=== PATIENT | female | born 1945 | race African-American/Black ===

== ENCOUNTER → 2016-06-17 | Outpatient (CLI) | payer BC ==
[~2016-06-17] MED LIST: ALPR-411 PO; APRE1TAB3 PO; ASPI325T45 PO; ASTN; BENZ100C18 PO; CALCTAB5 PO; CETI10TA84 PO; CHOL1CAP57 PO; CLOB-65 EXT; DICY20TA10 PO; DILT-115 PO; FLV1 PO; FOLI1TAB7 PO; HYG/25 PO; IPRA1AER2 INH; LEVO-366 PO; LEVO75TA PO; LEVO88TA3 PO; MAGN1CAP2 PO; MTH25 PO; NITR0.4S76 PO; NTRAR PO; OYST500T47 PO; POTA20TA16 PO; PRED-301 PO; PRED20TA PO; PRT/20 PO; SPR25 PO; TRAM-10 PO
--- NOTE | 2016-06-17 16:25 | DIAGNOSTIC IMAGING REPORT ---
CHEST 2 VIEWS ROUTINE CLINICAL HISTORY: Cough. COMPARISON STUDY: Chest radiograph July 25, 2015. FINDINGS: Lung volumes are normal. There is no pneumothorax or pleural effusion. No consolidation is identified. Cardiac size is normal. Mediastinal contours are normal. Mild biapical opacities are unchanged and likely reflect scarring. IMPRESSION: No acute cardiopulmonary findings. Electronically signed by: Alfred Avendaño M.D. 06/17/2016 4:23 PM Dictated Date/Time: 06/17/2016 4:21 PM
== END | disposition home or self-care (01) ==
LOC: C.RADBC 15:34
PROVIDERS: ATTEND Family Medicine
DX: R05 Cough (principal)

== ENCOUNTER 2016-06-23 10:11 | Emergency (ER) | payer BC ==
[~2016-06-23] VITALS: Ht 180.3 cm; Wt 102.6 kg
[~2016-06-23 10:11] MED LIST changes: -BENZ100C18 PO; -FOLI1TAB7 PO; -LEVO-366 PO; -LEVO88TA3 PO; -NITR0.4S76 PO; -OYST500T47 PO; -PRED20TA PO; -PRT/20 PO
[2016-06-23 10:13] VITALS: TEMP 36.4; Ht 180.3 cm; Wt 102.6 kg
[2016-06-23] MEDS ORDERED: NITR0.4S76 PO (10:29)
[2016-06-23] MEDS ORDERED: FOLI1TAB7 PO (10:29)
[2016-06-23] MEDS ORDERED: DEXAMETHASONE CONC SOLN 0.078 MG, NYSTATIN SUSP 0.625 ML, DiphenhydrAMINE HCL SYRUP 6.2... PO SCH ×5 (11:17)
[2016-06-23] MEDS ORDERED: ALBUT/IPRATROP 3MG/0.5MG NEB 3 ML VIAL INH STA ×2 (11:18→13:02)
[2016-06-23] MEDS ORDERED: MAGIC MOUTHWASH PO ONE (11:30)
[2016-06-23 11:42] LABS: HEMATOCRIT 39.7 % (37-47); MEAN CELL VOLUME 89.4 fL (80-100); MEAN CORPUSCULAR HEMOGLOBIN 30.4 pg (25-34); MEAN PLATELET VOLUME 10.5 fL (7.4-10.4); PLATELET COUNT 350 K/uL (130-400); RED BLOOD COUNT 4.44 M/uL (4.2-5.4); WHITE BLOOD COUNT 10.28 K/uL (4.8-10.8)
[2016-06-23 12:01] LABS: BUN/CREATININE RATIO 12.7 (10-20); CALCIUM 9.1 mg/dl (8.5-10.1); CREATININE 2.1 mg/dl (0.60-1.20)
--- NOTE | 2016-06-23 12:04 | DIAGNOSTIC IMAGING REPORT ---
CHEST 2 VIEWS ROUTINE CLINICAL HISTORY: cough dyspnea COMPARISON STUDY: 06/17/2016 FINDINGS: The bones soft tissues and hemidiaphragms are normal. The cardiomediastinal silhouette is normal. The lungs are clear. The pulmonary vasculature is normal. IMPRESSION: Negative chest. Electronically signed by: Jose Tripp M.D. 06/23/2016 12:03 PM Dictated Date/Time: 06/23/2016 12:03 PM
[2016-06-23 12:13] LABS: BASO % 0.2 %; BASO ABS # 0.02 K/uL (0-0.2); COMPLETE YES; LYMPH % 16.9 %; LYMPH ABS # 1.74 K/uL (1.2-3.4); MONO % 7.1 %; NEUT % 73.8 %
[2016-06-23] MEDS ORDERED: METHYLPREDNISOLONE 125 MG VIAL IV STA (13:02)
[2016-06-23] MEDS ORDERED: PRED20TA PO (13:51)
[2016-06-23] MEDS ORDERED: BENZ100C18 PO (13:51)
[2016-06-23] MEDS ORDERED: LEVO-366 PO (13:51)
[2016-06-23 13:58] VITALS: BP 145/67; PULSE 62; O2SAT 96
--- NOTE | 2016-06-23 19:17 | EMERGENCY ROOM VISIT NOTE ---
History Report prepared by Jamie: Bozena Pitt Under the Supervision of: Dr. Kirk Vincent D.O. First contact with patient: 10:55 Chief Complaint: RESPIRATORY PROBLEMS Stated Complaint: WHEEZING, COUGH Nursing Triage Summary: Pt ambulatory to triage Pt c/o SOB, wheezing dx with bronchitis and given steroid and abx finished abx yesterday sx are not improving History of Present Illness The patient is a 71 year old female who presents to the Emergency Room with complaints of persistent shortness of breath that began one week ago. The patient states that last Thursday she went to a banquet last Thursday and developed a cold after the banquet. She states that she went to see her PCP last Thursday and was placed on Azithromycin and Steroids for bronchitis. The patient states that she has had a cough, bringing up mucous, and has been wheezing. She states that she notices her shortness of breath more with walking and exertion. The patient states that she gets dizzy with exertion. She denies any history of asthma or COPD. The patient states that she does not have a nebulizer at home and denies being a smoker. She states that this happened one year ago as well and had a reaction to different of the inhalers. Pt denies headache, change in vision, fevers, chest pain, nausea, vomiting, diarrhea, pain with urination, and melena. Source of History: patient Onset: one week ago Position: other (global) Quality: other (shortness of breath) Associated Symptoms: + cough Note: Associated Symptoms: wheezing. Review of Systems See HPI for pertinent positives & negatives. A total of 10 systems reviewed and were otherwise negative. 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 (11) Hypertension Nos (12) Irritable Bowel Syndrome (13) Lumbar Disc Displacement (14) Osteoarthritis, knee (15) Reflux Esophagitis (16) Rheumatoid Arthritis Surgical Problems: (1) H/O thyroidectomy Family History Cancer FH: heart disease Hypertension Social History Smoking Status: Never Smoker Alcohol Use: none Drug Use: none Marital Status: Housing Status: lives with family Occupation Status: retired Current/Historical Medications Scheduled Alprazolam (Xanax), 0.5 MG PO BID Apremilast (Otezla), 1 TAB PO BID Aspirin (Aspirin), 325 MG PO QPM Benzonatate (Tessalon Perles), 100 MG PO TID Calcium (Caltrate), 1,000 MG PO BID Cetirizine (Zyrtec), 0.5 TAB PO BID Cholecalciferol (Vitamin D3), 1 CAP PO QAM Diltiazem Hcl Ext Rel (Tiazac), 240 MG PO QAM Folic Acid (Folvite), 4 MG PO 6XWK Levofloxacin (Levaquin), 500 MG PO DAILY Levothyroxine Sodium (Synthroid), 1 TAB PO QAM Magnesium Oxide (Mg Supplement (Magnesium), 1 TAB PO BID Methotrexate (Methotrexate), 4 TABS PO WK Potassium Ext Rel (Klor-Con), 20 MEQ PO BID Prednisone (Prednisone), 5 MG PO QPM Prednisone (Prednisone), 1 TAB PO DAILY Spironolactone (Spironolactone), 25 MG PO QAM Scheduled PRN Azelastine Hcl (Astelin Nasal [place]), 1-2 SPRAYS NA BID PRN for Nasal Congestion Dicyclomine Hcl (Dicyclomine Hcl), 1 TAB PO TID PRN for ABDOMINAL PAIN Ipratropium-Albuterol (Combivent Respimat), 1 PUFFS INH BID PRN for Shortness of Breath Nitroglycerin (Nitroglycerin Lingual), 1 SPRAY PO UD PRN for CHEST PAIN Tramadol (Ultram), 50 MG PO Q4H PRN for Pain Allergies Coded Allergies: Codeine (Verified Allergy, Severe, THROAT SWELLING, 12/20/15) Diclofenac (Verified Allergy, Intermediate, CREATINE ELEVATION, 12/20/15) Isopropyl Alcohol (Verified Allergy, Intermediate, CREATINE ELEVATION, ) Propylene Glycol (Verified Allergy, Intermediate, CREATINE ELEVATION, 12/19) Iodinated Diagnostic Agents (Verified Allergy, Unknown, RASH, 12/20/15) Sulfa Antibiotics (Verified Allergy, Unknown, RASH TO SULFA DRUGS, 12/20/15 ) Tetracycline (Verified Allergy, Unknown, RASH, 12/20/15) Physical Exam Vital Signs Date Time Temp Pulse Resp B/P Pulse Ox O2 Delivery O2 Flow Rate FiO2 06/23/16 13:58 62 18 145/67 96 Room Air 06/23/16 12:19 73 18 126/81 94 Room Air 06/23/16 10:43 97 Room Air 06/23/16 10:13 36.4 64 22 163/93 97 Room Air Physical Exam GENERAL:Sitting up in bed, no acute distress, talking in full sentences. EYE EXAM: normal conjunctiva. OROPHARYNX: no exudate, no erythema, lips, buccal mucosa, and tongue normal and mucous membranes are moist NECK: supple, no nuchal rigidity, no adenopathy, non-tender LUNGS: Diffuse wheezing. Normal chest wall mechanics HEART: no murmurs, S1 normal and S2 normal ABDOMEN: abdomen soft, non-tender, normo-active bowel sounds, no masses, no rebound or guarding. BACK: Back is symmetrical on inspection and there is no deformity, no midline tenderness, no CVA tenderness. SKIN: no rashes and no bruising UPPER EXTREMITIES: upper extremities are grossly normal. LOWER EXTREMITIES: No pitting edema. Calves are equal bilaterally NEURO EXAM: Normal sensorium, cranial nerves II-XII grossly intact, normal speech, no gross weakness of arms, no gross weakness of legs. Medical Decision & Procedures ER Provider Diagnostic Interpretation: Xray results per the radiologist and my interpretation. Other results have been interpreted by the radiologist and reviewed by me. CHEST 2 VIEWS ROUTINE CLINICAL HISTORY: cough dyspnea COMPARISON STUDY: 06/17/2016 FINDINGS: The bones soft tissues and hemidiaphragms are normal. The cardiomediastinal silhouette is normal. The lungs are clear. The pulmonary vasculature is normal. IMPRESSION: Negative chest. Electronically signed by: Jose Tripp M.D. 06/23/2016 12:03 PM Dictated Date/Time: 06/23/2016 12:03 PM Laboratory Results 06/23/16 11:19 Red Blood Count 4.44, Mean Corpuscular Volume 89.4, Mean Corpuscular Hemoglobin 30.4, Mean Corpuscular Hemoglobin Concent 34.0, Mean Platelet Volume 10.5, Neutrophils (%) (Auto) 73.8, Lymphocytes (%) (Auto) 16.9, Monocytes (%) (Auto) 7.1, Eosinophils (%) (Auto) 0.0, Basophils (%) (Auto) 0.2, Neutrophils # (Auto) 7.58, Lymphocytes # (Auto) 1.74, Monocytes # (Auto) 0.73, Eosinophils # (Auto) 0.00, Basophils # (Auto) 0.02 06/23/16 11:19 Test 06/23/16 11:17 06/23/16 11:19 Influenza Type A Antigen Neg for Influ A (NEG) Influenza Type B Antigen Neg for Influ B (NEG) White Blood Count 10.28 K/uL (4.8-10.8) Red Blood Count 4.44 M/uL (4.2-5.4) Hemoglobin 13.5 g/dL (12.0-16.0) Hematocrit 39.7 % (37-47) Mean Corpuscular Volume 89.4 fL (80-100) Mean Corpuscular Hemoglobin 30.4 pg (25-34) Mean Corpuscular Hemoglobin Concent 34.0 g/dl (32-36) Platelet Count 350 K/uL (130-400) Mean Platelet Volume 10.5 fL (7.4-10.4) Neutrophils (%) (Auto) 73.8 % Lymphocytes (%) (Auto) 16.9 % Monocytes (%) (Auto) 7.1 % Eosinophils (%) (Auto) 0.0 % Basophils (%) (Auto) 0.2 % Neutrophils # (Auto) 7.58 K/uL (1.4-6.5) Lymphocytes # (Auto) 1.74 K/uL (1.2-3.4) Monocytes # (Auto) 0.73 K/uL (0.11-0.59) Eosinophils # (Auto) 0.00 K/uL (0-0.5) Basophils # (Auto) 0.02 K/uL (0-0.2) RDW Standard Deviation 55.6 fL (36.4-46.3) RDW Coefficient of Variation 17.1 % (11.5-14.5) Immature Granulocyte % (Auto) 2.0 % Immature Granulocyte # (Auto) 0.21 K/uL (0.00-0.02) Anion Gap 12.0 mmol/L (3-11) Est Creatinine Clear Calc Drug Dose 32.9 ml/min Estimated GFR () 27.0 Estimated GFR (Non- 23.3 BUN/Creatinine Ratio 12.7 (10-20) Calcium Level 9.1 mg/dl (8.5-10.1) Laboratory results per my review. Medications Administered Medications (Trade) Dose Ordered Sig/Carrie Route Start Time Stop Time Status Last Admin Dose Admin Albuterol/ Ipratropium 3 ml NOW STAT INH 06/23/16 11:18 06/23/16 14:40 DC 06/23/16 12:06 3 ML Dexamethasone/ Nystatin/ Diphenhydramine HCl/Sucrose/ Microcrystalline Cellulose/Barcode (Decadron Conc Soln/Mycostatin Susp/Benadryl Syrup/Ora-Sweet Syrup/Ora-Plus Susp. Vehicle) 1117 PO 06/23/16 11:17 06/23/16 14:40 DC 06/23/16 12:06 5 ML Albuterol/ Ipratropium (Duoneb) 3 ml NOW STAT INH 06/23/16 13:02 06/23/16 14:40 DC 06/23/16 13:07 3 ML Methylprednisolone Sodium Succinate (Solu-Medrol IV) 40 mg NOW STAT IV 06/23/16 13:02 06/23/16 14:40 DC 06/23/16 13:08 40 MG ED Course ED COURSE: Vital signs were reviewed and showed normal vitals The patients medical record was reviewed The above diagnostic studies were performed and reviewed. ED treatments and interventions as stated above. 1057: The patient was evaluated in room C11B. A complete history and physical examination was performed. 1117: Ordered Dexamethasone/Nystatin/Diphenhydramine/HCl/Sucrose/ Microcrystalline Cellulose/Barcode PO, DuoNeb 3 ml INH. 1300: I reevaluated the patient and she is feeling better. 1302: Ordered Solu-Medrol 40 mg IV, DuoNeb 3 ml INH. 1348: Upon reevaluation, the patient is feeling better.I discussed my findings with the patient and she understands and agrees with the treatment plan. She declines any antibiotics at this time. Based on the patients age, coexisting illnesses, exam and lab findings the decision to treat as an outpatient was made. The patient remained stable while under my care. The patient appeared well at the time of discharge. Medical Decision Differential diagnoses includes but is not limited to pneumonia, bronchitis, COPD/Asthma exacerbation, pneumothorax, pulmonary embolism, congestive heart failure, acute coronary syndrome Patient is a 71-year-old female who presents the ER for shortness of breath associated with diffuse wheezing. She was recently diagnosed with bronchitis and placed on steroids along with azithromycin. She has an inhaler at home but notes that she does not have a history of asthma or COPD. Upon presentation she notes that she was sent in here by her PCP for a neb treatment. She has that when she gets any kind of nebulized treatment that has a sulfa in it she gets blisters in her mouth. She does okay she gets steroids before. She was given a mouthwash and to the treatments. She has significant improvement of her symptoms. Chest x-ray was unremarkable. CBC and BMP show chronic stable elevation in her creatinine. No significant leukocytosis or anemia. Influenza A and B were negative. Patient was given a dose of steroids and discharged with steroids and cough drops. She was given a prescription for antibiotics of her symptoms worsen although I do favor this is viral. Stressed the importance of following up with her primary care doctor in next 2 days. She is not hypoxic or tachypneic while in the ER. Discussed with Pt concerning signs and symptoms to watch out for. Pt was instructed to follow up with their PCP and discussed with the patient their option to return to the ED at anytime for persistent or worsening symptoms. The appropriate anticipatory guidance and out- patient management, including indications for return to the emergency department , were explained at length to the patient and understood. Impression Primary Impression: Bronchitis Scribe Attestation The scribe's documentation has been prepared under my direction and personally reviewed by me in its entirety. I confirm that the note above accurately reflects all work, treatment, procedures, and medical decision making performed by me. Departure Information Dispostion Home / Self-Care Prescriptions Levofloxacin (Levaquin) 500 Mg Tab 500 MG PO DAILY for 9 Days, TAB Prov: Kirk Vincent, DO 06/23/16 Prednisone (Prednisone) 20 Mg Tab 1 TAB PO DAILY for 5 Days, #5 TAB Prov: Kirk Vincent, DO 06/23/16 Benzonatate (TESSALON PERLES) 100 Mg Cap 100 MG PO TID, #30 CAP Prov: Kirk Vincent, DO 06/23/16 Referrals No Doctor, Assigned (PCP) Forms HOME CARE DOCUMENTATION FORM, IMPORTANT VISIT INFORMATION, WORK / SCHOOL INSTRUCTIONS Patient Instructions Bronchitis Acute, My [facility] [email or web address] Additional Instructions Please follow up with your primary care doctor with in the next 24 hours. Any worsening of your symptoms, please return to the ED immediately. This includes worsening shortness of breath, passing out, fevers greater than 100.4, swelling of her legs, unable to chew breath, or any other concerning signs or symptoms from your standpoint. Please take the steroids as prescribed. These take Tessalon Perles as needed for coughing. If your symptoms worsen you were given a perception for Levaquin which she can fill and take. This is an antibiotic and may not help as your symptoms are likely viral.
[2016-11-12] MEDS ORDERED: LEVO88TA3 PO (13:41)
[2016-11-12] MEDS ORDERED: PRT/20 PO (13:43)
== END 2016-06-23 14:15 | disposition home or self-care (01) ==
LOC: C.EDB 10:13 → C.EDC 14:15
DX: J40 Bronchitis, not specified as acute or chronic (principal); E11.9 Type 2 diabetes mellitus without complications; I12.9 Hypertensive chronic kidney disease with stage 1 through stage 4 chronic kidney disease, or unspecified chronic kidney disease; N18.3 Chronic kidney disease, stage 3 (moderate); M06.9 Rheumatoid arthritis, unspecified; K21.0 Gastro-esophageal reflux disease with esophagitis; K57.90 Diverticulosis of intestine, part unspecified, without perforation or abscess without bleeding; E07.9 Disorder of thyroid, unspecified; D64.9 Anemia, unspecified; K58.9 Irritable bowel syndrome, unspecified; M17.9 Osteoarthritis of knee, unspecified; Z98.890 Other specified postprocedural states; Z79.82 Long term (current) use of aspirin; Z79.899 Other long term (current) drug therapy; Z88.2 Allergy status to sulfonamides; Z88.5 Allergy status to narcotic agent; Z88.8 Allergy status to other drugs, medicaments and biological substances; Z80.9 Family history of malignant neoplasm, unspecified; Z82.49 Family history of ischemic heart disease and other diseases of the circulatory system

== ENCOUNTER 2016-08-04 17:52 | Emergency (ER) | payer BC ==
[~2016-08-04] VITALS: Ht 180.3 cm; Wt 109.4 kg
[~2016-08-04 17:52] MED LIST changes: -CLOB-65 EXT; -FLV1 PO; +FOLI1TAB7 PO; -HYG/25 PO; +NITR0.4S76 PO; -NTRAR PO
[2016-08-04 18:20] VITALS: TEMP 36.9; Ht 180.3 cm; Wt 109.4 kg
--- NOTE | 2016-08-04 19:38 | DIAGNOSTIC IMAGING REPORT ---
CT OF THE NECK WITHOUT CONTRAST CLINICAL HISTORY: Right neck and ear pain. TECHNIQUE: Axial images of the neck were obtained without IV contrast. COMPARISON STUDY: MRI of the cervical spine December 18, 2015. FINDINGS: Left mastoid air cells are clear. A few opacified right mastoid air cells are unchanged since head CT of January 09, 2013. There are bubbly secretions within a left posterior ethmoid air cell. No suspicious osseous lesions are present. Multilevel degenerative changes are present within the cervical spine, suboptimally assessed by CT. A marker was placed on the skin at site of pain and swelling. This overlies the right parotid gland which is within normal limits on this unenhanced exam. The parotid and submandibular glands are normal. No mucosal lesion is identified although sensitivity is diminished on this unenhanced exam. A 4 mm right upper lobe nodule is noted on image 321 of 381. A few smaller nodules are noted. Biapical opacities reflect scarring. There is no cervical lymphadenopathy. IMPRESSION: 1. No acute process within the neck on this unenhanced exam. 2. No cervical lymphadenopathy. 3. A few small right upper lobe nodules measuring up to 4 mm. These are likely benign but a follow up chest CT in 6 months to ensure stability is recommended. Electronically signed by: Alfred Avendaño M.D. 08/04/2016 7:36 PM Dictated Date/Time: 08/04/2016 7:29 PM
[2016-08-04] MEDS ORDERED: OYST500T47 PO (19:50)
--- NOTE | 2016-08-04 19:51 | EMERGENCY ROOM VISIT NOTE ---
ED Visit Note First contact with patient: 18:25 I saw this patient in conjunction with German Melchor PA-C. I agree with his decision-making interim plan
[2016-08-04] MEDS ORDERED: PRED20TA PO (19:56)
--- NOTE | 2016-08-04 19:56 | EMERGENCY ROOM VISIT NOTE ---
ED Visit Note First contact with patient: 18:25 Chief Complaint: Painful LEFT Ear, Swollen Face History of Present Illness: Patient is a 71-year-old female who presents to the emergency Department for evaluation of her RIGHT ear pain and swollen face. She reports that she has had pain to the RIGHT ear the last 3 days. She's had increasing intensity of pain. She contacted her primary care provider's office and was directed to the emergency Department for further evaluation and management. She reports no history of infections or injuries to the affected ear. She does report pain to the jaw with chewing. She denies any popping or issues with hearing otherwise. The patient rates her current discomfort as an 8 /10. She denies any headaches, dizziness, lightheadedness, blurry vision, double vision, slurred speech, facial droop, unilateral weakness/numbness, chest pain, palpitations, or shortness of breath. Medications: Reviewed and discussed with the patient. Allergies: Multiple allergies listed above. PMH: No pertinent past mental history. SHx: Patient is a 71-year-old female who lives locally. ROS: All pertinent positive and negative review of systems are appropriately documented in the History of Present Illness. Physical Exam: VITAL SIGNS - Vital signs and nursing notes were reviewed. GENERAL - 71-year-old female appearing her stated age who is in no acute distress. Communicates well with provider and answers questions appropriately. HEAD - Normocephalic, Atraumatic. No Rueda's Sign or Raccoon's Eyes. No depressed skull fractures palpable. EYES - PERRL with EOMI bilaterally. EARS - No deformities of external structures noted on gross examination bilaterally. No pain elicited with palpation of the tragus bilaterally. External auditory canals without discharge or otorrhea. Tympanic membranes pearly perez without retraction or bulging. No fluid or purulent material visualized behind the TM. Handle of malleus, umbo, cone of light, pars tensa/ flaccid all easily visualized. No erythema , edema, or tenderness to palpation noted over the mastoid process. NOSE - Midline and without cyanosis. No epistaxis or purulent drainage noted. Septum midline without deviation or septal hematoma noted. MOUTH/OROPHARYNX - Without perioral cyanosis. Buccal mucosa pink and moist and without leukoplakia. Tongue midline with equal elevation of palate bilaterally. No tonsillar hypertrophy, erythema, or exudates noted. Good dentition noted. No trismus. No fluctuance to palpation or active drainage appreciated. Tenderness to palpation appreciated to the RIGHT TMJ area. NECK - Neck with FROM. Supple to palpation. No lymphadenopathy noted. No nuchal rigidity. HEART - RRR w/ normal S1/S2. No murmurs, rubs, or gallops appreciated. LUNGS - CTA bilaterally. No wheezes, rales, or rhonchi appreciated. IMAGING: CT OF THE NECK WITHOUT CONTRAST CLINICAL HISTORY: Right neck and ear pain. TECHNIQUE: Axial images of the neck were obtained without IV contrast. COMPARISON STUDY: MRI of the cervical spine December 18, 2015. FINDINGS: Left mastoid air cells are clear. A few opacified right mastoid air cells are unchanged since head CT of January 09, 2013. There are bubbly secretions within a left posterior ethmoid air cell. No suspicious osseous lesions are present. Multilevel degenerative changes are present within the cervical spine, suboptimally assessed by CT. A marker was placed on the skin at site of pain and swelling. This overlies the right parotid gland which is within normal limits on this unenhanced exam. The parotid and submandibular glands are normal. No mucosal lesion is identified although sensitivity is diminished on this unenhanced exam. A 4 mm right upper lobe nodule is noted on image 321 of 381. A few smaller nodules are noted. Biapical opacities reflect scarring. There is no cervical lymphadenopathy. IMPRESSION: 1. No acute process within the neck on this unenhanced exam. 2. No cervical lymphadenopathy. 3. A few small right upper lobe nodules measuring up to 4 mm. These are likely benign but a follow up chest CT in 6 months to ensure stability is recommended. ED Course: Patient was seen and evaluated by myself. CT of the soft tissues the neck was obtained. Imaging results as above. Imaging results were reviewed with the patient who acknowledges understanding. She was placed in a short course of prednisone for her likely TMJ syndrome. She was encouraged to follow-up with her primary care provider from today's visit. She was educated on worrisome symptoms for return visit to the emergency part. Patient discharged home afebrile and in good condition. In the evaluation and treatment of this patient, the following differential diagnoses were considered: ACS, MN, carotid dissection, mastoiditis, viral URI, otitis externa, amongst others. Impression: RIGHT Ear Pain, TMJ Dysfunction Discharge Instructions: You've been seen in the emergency department today for your RIGHT ear pain - TMJ dysfunction. Please take the prednisone as prescribed. For pain control, you can use the following [id number]-[id number] medicines (if >12 yo): - Regular strength (325mg/tab) Tylenol (acetaminophen) 2 tabs every 4-6 hours as needed. Do not exceed 12 tablets in a 24 hour period. Avoid taking more than 4 grams (4000 mg) of Tylenol per day. This includes any other sources of acetaminophen you may take on a regular basis. - Regular strength (200 mg/tab) Advil (ibuprofen) 1-2 tabs every 4-6 hours as needed. Do not exceed a dose of 3200 mg per day. Please follow-up with your primary care provider at the end of the week for recheck. Return for any changing or worsening symptoms. Problem List Medical Problems: (1) Anemia Nos Status: Chronic (2) Cardiac Dysrhythmias Nec Status: Chronic (3) Cardiomegaly Status: Chronic (4) Chronic Kidney Disease, Stage Iii (Moderate) Status: Chronic (5) Chronic Sinusitis Nos Status: Chronic (6) Degenerative arthritis of knee, bilateral Status: Chronic (7) Diab Jyotsna Wo Compl, Type Ii Or Unspec Type, Not Uncntrld Status: Chronic (8) Disorders Of Thyroid Nec Status: Chronic (9) Diverticulosis Colon (W/O Ment Of Hemorrhage) Status: Chronic (10) Enlargement Lymph Nodes Status: Resolved (11) Hypertension Nos Status: Chronic (12) Irritable Bowel Syndrome Status: Chronic (13) Lumbar Disc Displacement Status: Chronic (14) Osteoarthritis, knee Status: Chronic (15) Reflux Esophagitis Status: Chronic (16) Rheumatoid Arthritis Status: Chronic Surgical Problems: (1) H/O thyroidectomy Status: Resolved Current/Historical Medications Scheduled Alprazolam (Xanax), 0.5 MG PO BID Apremilast (Otezla), 1 TAB PO DAILY Aspirin (Aspirin), 325 MG PO QPM Cetirizine (Zyrtec), 0.5 TAB PO BID Cholecalciferol (Vitamin D3), 1 CAP PO QAM Dicyclomine Hcl (Dicyclomine Hcl), 1 TAB PO TID Diltiazem Hcl Ext Rel (Tiazac), 240 MG PO QAM Folic Acid (Folvite), 4 MG PO DAILY Levothyroxine Sodium (Synthroid), 1 TAB PO QAM Magnesium Oxide (Mg Supplement (Magnesium), 1 TAB PO BID Methotrexate (Methotrexate), 4 TABS PO Q2D Oyster Shell (Calcium), 1 TAB PO BID Potassium Ext Rel (Klor-Con), 20 MEQ PO BID Prednisone (Prednisone), 5 MG PO QPM Prednisone (Prednisone), 20 MG PO BID Spironolactone (Spironolactone), 25 MG PO QAM Scheduled PRN Azelastine Hcl (Astelin Nasal [place]), 1-2 SPRAYS NA BID PRN for Nasal Congestion Ipratropium-Albuterol (Combivent Respimat), 1 PUFFS INH BID PRN for Shortness of Breath Nitroglycerin (Nitroglycerin Lingual), 1 SPRAY PO UD PRN for CHEST PAIN Tramadol (Ultram), 50 MG PO Q4H PRN for Pain Allergies Coded Allergies: Codeine (Verified Allergy, Severe, THROAT SWELLING, 08/04/16) Diclofenac (Verified Allergy, Intermediate, CREATINE ELEVATION, 08/04/16) Isopropyl Alcohol (Verified Allergy, Intermediate, CREATINE ELEVATION, ) Propylene Glycol (Verified Allergy, Intermediate, CREATINE ELEVATION, 08/04) Iodinated Diagnostic Agents (Verified Allergy, Unknown, RASH, 08/04/16) Sulfa Antibiotics (Verified Allergy, Unknown, RASH TO SULFA DRUGS, 08/04/16 ) Tetracycline (Verified Allergy, Unknown, RASH, 08/04/16) Vital Signs Date Time Temp Pulse Resp B/P Pulse Ox O2 Delivery O2 Flow Rate FiO2 08/04/16 20:07 58 18 153/83 96 08/04/16 18:20 36.9 65 22 95 Room Air Departure Information Impression Primary Impression: TMJ dysfunction Additional Impression: Ear pain, right Dispostion Home / Self-Care Condition GOOD Prescriptions Prednisone (Prednisone) 20 Mg Tab 20 MG PO BID for 5 Days, #10 TAB Prov: German Melchor PA-C 08/04/16 Referrals Nash Alvarez D.O.Int.Med. (PCP) Patient Instructions ED TMJ Syndrome, [facility] Additional Instructions You've been seen in the emergency department today for your RIGHT ear pain - TMJ dysfunction. Please take the prednisone as prescribed. For pain control, you can use the following [id number] medicines (if >12 yo): - Regular strength (325mg/tab) Tylenol (acetaminophen) 2 tabs every 4-6 hours as needed. Do not exceed 12 tablets in a 24 hour period. Avoid taking more than 4 grams (4000 mg) of Tylenol per day. This includes any other sources of acetaminophen you may take on a regular basis. - Regular strength (200 mg/tab) Advil (ibuprofen) 1-2 tabs every 4-6 hours as needed. Do not exceed a dose of 3200 mg per day. Please follow-up with your primary care provider at the end of the week for recheck. Return for any changing or worsening symptoms. Problem Qualifiers
[2016-08-04 20:07] VITALS: BP 153/83; PULSE 58; O2SAT 96
[2016-11-12] MEDS ORDERED: LEVO88TA3 PO (13:41)
[2016-11-12] MEDS ORDERED: PRT/20 PO (13:43)
== END 2016-08-04 20:08 | disposition home or self-care (01) ==
LOC: C.EDB 17:54 → C.EDD 20:08
DX: H92.01 Otalgia, right ear (principal); M26.629 Arthralgia of temporomandibular joint, unspecified side; E11.9 Type 2 diabetes mellitus without complications; I12.9 Hypertensive chronic kidney disease with stage 1 through stage 4 chronic kidney disease, or unspecified chronic kidney disease; N18.3 Chronic kidney disease, stage 3 (moderate); K21.0 Gastro-esophageal reflux disease with esophagitis; K57.30 Diverticulosis of large intestine without perforation or abscess without bleeding; M06.9 Rheumatoid arthritis, unspecified; M17.9 Osteoarthritis of knee, unspecified; D64.9 Anemia, unspecified; E07.9 Disorder of thyroid, unspecified; K58.9 Irritable bowel syndrome, unspecified; Z90.49 Acquired absence of other specified parts of digestive tract; Z79.82 Long term (current) use of aspirin; Z79.899 Other long term (current) drug therapy; Z88.2 Allergy status to sulfonamides; Z88.5 Allergy status to narcotic agent; Z88.8 Allergy status to other drugs, medicaments and biological substances

== ENCOUNTER → 2016-08-21 | Outpatient (CLI) | payer BC ==
[~2016-08-21] MED LIST changes: +ASPI-435 PO; +BENZ100C84 PO; -CALCTAB5 PO; +CLBPO15 TOP; +LEVO88TA3 PO; +MULT-506 PO; +NITR0.1S PO; -NITR0.4S76 PO; +OMEG1CAP81 PO; +OYST500T47 PO; +PRT/20 PO; +RXC5 PO; +TRMO2580 TOP
== END | disposition home or self-care (01) ==
LOC: C.RDSM 08:13
PROVIDERS: ATTEND Physical Medicine & Rehabilitation
DX: M54.16 Radiculopathy, lumbar region (principal); M43.16 Spondylolisthesis, lumbar region

== ENCOUNTER → 2016-10-08 | Outpatient (CLI) | payer BC ==
[2016-10-08 09:42] LABS: BASO % 0.1 %; BASO ABS # 0.01 K/uL (0-0.2); COMPLETE YES; EOS % 0.3 %; HEMATOCRIT 38.3 % (37-47); IG% 0.8 %; LYMPH % 15.3 %; MEAN CORPUSCULAR HEMOGLOBIN 30.8 pg (25-34); MEAN CORPUSCULAR HGB CONC 32.4 g/dl (32-36); MEAN PLATELET VOLUME 10.5 fL (7.4-10.4); MONO % 5.1 %; NEUT % 78.4 %; PLATELET COUNT 279 K/uL (130-400); RED BLOOD COUNT 4.03 M/uL (4.2-5.4); WHITE BLOOD COUNT 7.84 K/uL (4.8-10.8)
[2016-10-08 09:51] LABS: ALT/SGPT 39 U/L (12-78)
[2016-10-08 09:54] LABS: ALKALINE PHOSPHATASE 87 U/L (45-117); AST/SGOT 24 U/L (15-37)
== END ==
LOC: C.LAB1850 08:33
PROVIDERS: ATTEND Internal Medicine Rheumatology
DX: M54.16 Radiculopathy, lumbar region (principal); L40.50 Arthropathic psoriasis, unspecified; Z79.899 Other long term (current) drug therapy

== ENCOUNTER → 2016-10-29 | Outpatient (CLI) | payer BC ==
[~2016-10-29] MED LIST changes: -TRAM-10 PO
[2016-10-29 17:01] LABS: HEMATOCRIT 37.6 % (37-47); MEAN CELL VOLUME 96.2 fL (80-100); MEAN CORPUSCULAR HEMOGLOBIN 31.2 pg (25-34); MEAN CORPUSCULAR HGB CONC 32.4 g/dl (32-36); MEAN PLATELET VOLUME 10.8 fL (7.4-10.4); PLATELET COUNT 314 K/uL (130-400); RED BLOOD COUNT 3.91 M/uL (4.2-5.4); WHITE BLOOD COUNT 7.38 K/uL (4.8-10.8)
[2016-10-29 17:11] LABS: URINE APPEARANCE CLEAR (CLEAR); URINE BILIRUBIN NEG (NEG); URINE COLOR YELLOW; URINE EPITHELIAL CELL AUTO >30 /lpf (0-5); URINE NITRITE NEG (NEG); URINE SPECIFIC GRAVITY 1.018 (1.000-1.030); UROBILINOGEN NEG (NEG)
[2016-10-29 17:16] LABS: MANUAL MICROSCOPIC REQUIRED? NO; REVIEW REQ? NO
[2016-10-29 17:22] LABS: URINE PROTIEN/CREAT RATIO 0.1 (0-0.2); URINE TOTAL PROTEIN 9.4 mg/dl (0-11.9)
[2016-10-29 17:25] LABS: BLOOD UREA NITROGEN 19 mg/dl (7-18); BUN/CREATININE RATIO 12.6 (10-20); CALCIUM 8.8 mg/dl (8.5-10.1); CARBON DIOXIDE 27 mmol/L (21-32); CHLORIDE 107 mmol/L (98-107); GLUCOSE 125 mg/dl (70-99); PHOSPHORUS 2.2 mg/dl (2.5-4.9); POTASSIUM 3.9 mmol/L (3.5-5.1); SODIUM 142 mmol/L (136-145)
== END ==
LOC: C.LAB1850 15:10
PROVIDERS: ATTEND Internal Medicine Nephrology
DX: I10 Essential (primary) hypertension (principal); E55.9 Vitamin D deficiency, unspecified; N18.3 Chronic kidney disease, stage 3 (moderate); D64.9 Anemia, unspecified

== ENCOUNTER → 2016-10-31 | Outpatient (CLI) | payer BC ==
[2016-10-31 15:06] LABS: CHOLESTEROL/HDL RATIO 3.8; THYROID STIMULATING HORMONE 12.6 uIu/ml (0.300-4.500)
== END | disposition home or self-care (01) ==
LOC: C.LAB1850 11:18
PROVIDERS: ATTEND Family Medicine
DX: E89.0 Postprocedural hypothyroidism (principal); Z13.220 Encounter for screening for lipoid disorders

== ENCOUNTER → 2016-11-12 | Day surgery (SDC) | payer BC ==
[2016-10-27 10:18] VITALS: Ht 181.6 cm; Wt 104.5 kg
[~2016-11-12] VITALS: Ht 181.6 cm; Wt 104.5 kg
[~2016-11-12] MED LIST changes: +BUPIVACAINE 0.25% 2.5MG/ML PF 10 ML VIAL ONE; +IOPAMIDOL INJ 61% 15 ML VIAL ONE; +LIDOCAINE HCL 1% MPF 5 ML VIAL ONE
--- NOTE | 2016-11-12 14:48 | History & Physical Bridge - SC ---
H&P Re-Evaluation Bridge Note: I have examined the patient, reviewed the History & Physical and in the interval since the performance of the History & Physical I have noted the following changes of clinical significance: No changes noted
[2016-11-12 15:12] VITALS: TEMP 36.9
--- NOTE | 2016-11-12 15:14 | Discharge Instructions ---
Discharge Instructions Date of Service Nov 12, 2016. Visit Reason for Visit: Saroiliitis Discharge Discharge Diagnosis / Problem: low back pain Discharge Goals Goal(s): Decrease discomfort, Improve function Activity Recommendations Activity Limitations: resume your previous activity Anesthesia . Post Anesthesia Instructions: If you have had General Anesthesia or IV Sedation: * Do not drive today. * Resume driving when surgeon permits. * Do not make important decisions or sign legal documents today. * Call surgeon for: 1. Temperature elevations greater than 101 degrees F. 2. Uncontrollable pain. 3. Excessive bleeding. 4. Persistent nausea and vomiting. 5. Medication intolerance (nausea, vomiting or rash). * For nausea and vomiting use only clear liquids such as: tea, soda, bouillon until nausea subsides, then gradually increase diet as tolerated. * If you have any concerns or questions, call your surgeon's office. If physician is unavailable and it is an emergency, call 911 or go to the nearest emergency room. . Diet Recommendations Recommended Home Diet: resume previous diet Procedures Procedures Performed: Left Sacroiliac Joint Injection Pending Studies Studies pending at discharge: no Medical Emergencies . Who to Call and When: Medical Emergencies: If at any time you feel your situation is an emergency, please call 911 immediately. . Non-Emergent Contact Non-Emergency issues call your: Specialist . . "Provider Documentation" section prepared by Epi Quinonez. .
[2016-11-12 15:19] VITALS: BP 156/91; PULSE 51; O2SAT 95
--- NOTE | 2016-11-12 17:00 | OPERATIVE REPORT ---
DATE OF OPERATION: 11/12/2016 PREOPERATIVE DIAGNOSES: Psoriatic arthritis with left sacroiliitis, chronic low back pain. POSTOPERATIVE DIAGNOSES: Same. PROCEDURE: Left sacroiliac joint injection under fluoroscopic guidance. INDICATIONS FOR PROCEDURE: The patient is a 71-year-old female who has had chronic low back pain issues. She has responded favorably to epidural injections and gabapentin trials for radicular pain. She is describing pain that is localized to the left SI joint consistent with sacroiliitis related to her psoriatic arthritis. PHYSICAL EXAMINATION: Pleasant female seated comfortably. She has point tenderness to palpation over the SI joint which is worse with extension. She has a positive modified Jacy maneuver and has normal lower extremity strength and sensation. Negative seated straight leg raises. CONSENT: Verbal and written consent was obtained from the patient. Risks and benefits were reviewed. Risks include but are not limited to abscess and allergic reaction. The patient wishes to proceed. DESCRIPTION OF PROCEDURE: The patient was taken back to the special procedures room of [facility]. She was maintained in a prone position. Backside was cleansed with Betadine x3. Dry sterile dressing was applied. Fluoroscope was used to identify the left SI joint and the overlying skin was anesthetized with 5 mL of lidocaine 1% with a 25-gauge 1.5-inch needle. A 22-gauge 7-inch spinal needle was then directed towards the SI joint and there was pain as it reached the SI joint. Isovue 300 contrast was not utilized secondary to her severe allergy and she underwent injection after negative aspiration of 40 mg of Depo-Medrol and 1.5 mL of bupivacaine 0.25%. Injection was well tolerated and reproduced a familiar transient pressure feeling into the painful area on the left side. DISPOSITION: 1. The patient is taken out into the discharge recovery area where she will be discharged home once discharge criteria have been met. 2. Follow up in the [facility] office in 4 weeks' time. I attest to the content of the Intraoperative Record and any orders documented therein. Any exception s are noted below.
== END | disposition home or self-care (01) ==
LOC: X.SURG 13:22
PROVIDERS: ATTEND Physical Medicine & Rehabilitation
DX: M46.1 Sacroiliitis, not elsewhere classified (principal); G89.29 Other chronic pain; M54.5 Low back pain; L40.50 Arthropathic psoriasis, unspecified

== ENCOUNTER → 2016-11-26 | Outpatient (CLI) | payer BC ==
[~2016-11-26] MED LIST changes: -ASPI-435 PO; -BENZ100C84 PO; -BUPIVACAINE 0.25% 2.5MG/ML PF 10 ML VIAL ONE; -CLBPO15 TOP; -IOPAMIDOL INJ 61% 15 ML VIAL ONE; -LEVO75TA PO; -LIDOCAINE HCL 1% MPF 5 ML VIAL ONE; -MULT-506 PO; -NITR0.1S PO; +NITR0.4S76 PO; -OMEG1CAP81 PO; -RXC5 PO; -TRMO2580 TOP
[2016-11-26 13:10] LABS: BASO % 0.3 %; BASO ABS # 0.02 K/uL (0-0.2); COMPLETE YES; EOS % 0.4 %; IG% 0.6 %; LYMPH % 19.5 %; LYMPH ABS # 1.39 K/uL (1.2-3.4); MEAN CELL VOLUME 94.2 fL (80-100); MEAN CORPUSCULAR HGB CONC 31.9 g/dl (32-36); MEAN PLATELET VOLUME 10.6 fL (7.4-10.4); MONO % 5.6 %; NEUT % 73.6 %; PLATELET COUNT 323 K/uL (130-400); RED BLOOD COUNT 4.46 M/uL (4.2-5.4); WHITE BLOOD COUNT 7.11 K/uL (4.8-10.8)
[2016-11-26 13:52] LABS: ALT/SGPT 27 U/L (12-78); AST/SGOT 20 U/L (15-37)
[2016-11-26 13:54] LABS: ALKALINE PHOSPHATASE 92 U/L (45-117)
== END | disposition home or self-care (01) ==
LOC: C.LAB1850 11:45
PROVIDERS: ATTEND Internal Medicine Rheumatology
DX: L40.50 Arthropathic psoriasis, unspecified (principal); Z79.52 Long term (current) use of systemic steroids; Z79.899 Other long term (current) drug therapy

== ENCOUNTER → 2016-12-22 | Outpatient (CLI) | payer BC ==
--- NOTE | 2016-12-22 15:57 | DIAGNOSTIC IMAGING REPORT ---
LUMBAR SPINE W/O CONTRAST HISTORY: Pain. Neuropathy. M43.16,,54.16,M48.06 TECHNIQUE: Multiplanar multisequence MRI of the lumbar spine was performed without the use of contrast. COMPARISON: 01/24/2014 FINDINGS: For the purpose of the report the L5-S1 disc space will be located on axial image 27 of 30. Grade 1/grade 2 subluxation of L4 on L5. This is perhaps minimally increased in the prior study with current anterolisthesis of 6.6 mm. This is somewhat increased from the prior study of 5.1 mm. There is moderate degenerative disc change L5-S1 similar compared to prior study. Signal characteristics the region of the remaining vertebral bodies is unremarkable. L1-L2: No significant central canal or neural foraminal narrowing. L2-L3: No significant central canal or neural foraminal narrowing. L3-L4: Slight broad-based disc bulge similar compared to the prior study. Neuroforamina are patent bilaterally. L4-L5: Significant multifactorial spinal stenosis. This primarily secondary to the patient's Grade 1/grade 2 subluxation of L4 and L5 as well as hypertrophic changes of posterior elements and facets. Moderate narrowing of the neuroforamina bilaterally L5-S1: Minimal central disc bulge with minimal impact anterior thecal sac. This is unchanged from the prior study. IMPRESSION: 1. Significant multifactorial spinal stenosis L4-L5 similar to only minimally increased in prominence from the prior study. 2. This is secondary to a grade 1/grade 2 subluxation of L4 and L5 with hypertrophic changes of posterior elements. 3. Moderate narrowing of the neuroforamina bilaterally at L4-L5 slightly increased from the prior study. 4. Slight disc bulges L3-L4 and L5-S1. The above report was generated using voice recognition software. It may contain grammatical, syntax or spelling errors. Electronically signed by: Jose Tripp M.D. 12/22/2016 3:56 PM Dictated Date/Time: 12/22/2016 3:51 PM
== END | disposition home or self-care (01) ==
LOC: C.MRI 14:18
PROVIDERS: ATTEND Physical Medicine & Rehabilitation
DX: M43.16 Spondylolisthesis, lumbar region (principal); M54.16 Radiculopathy, lumbar region; M48.06 Spinal stenosis, lumbar region

== ENCOUNTER → 2017-01-22 | Outpatient (CLI) | payer BC ==
--- NOTE | 2017-01-22 12:41 | MAMMOGRAPHY REPORT ---
BILATERAL DIGITAL SCREENING MAMMOGRAM WITH CAD: 01/22/2017 CLINICAL HISTORY: Routine screening. Patient has no complaints. TECHNIQUE: Current study was also evaluated with a Computer Aided Detection (CAD) system. Bilateral CC and MLO views were obtained. COMPARISON: Comparison is made to exams dated: 01/21/2016 mammogram, 07/25/2015 ultrasound, 07/25/2015 ma mmogram, 01/18/2015 ultrasound, 01/18/2015 mammogram, and 01/17/2015 mammogram - [facility] enter. BREAST COMPOSITION: There are scattered areas of fibroglandular density in both breasts. FINDINGS: No suspicious masses, calcifications, or areas of architectural distortion are noted in ei ther breast. There has been no significant interval change compared to prior exams. IMPRESSION: ACR BI-RADS CATEGORY 1: NEGATIVE There is no mammographic evidence of malignancy. A 1 year screening mammogram is recommended. The pa tient will receive written notification of the results. Approximately 10% of breast cancers are not detected with mammography. A negative mammographic report should not delay biopsy if a clinically suggestive mass is present. Leatha Velez M.D. /:01/22/2017 12:09:03 Dispatch Lead: Elva WHITING(R)(M), [facility] letter sent: Normal 1/2 BI-RADS Code: ACR BI-RADS Category 1: Negative
== END | disposition home or self-care (01) ==
LOC: C.MAMM 10:12
PROVIDERS: ATTEND Internal Medicine Geriatric Medicine
DX: Z12.31 Encounter for screening mammogram for malignant neoplasm of breast (principal)

== ENCOUNTER → 2017-02-05 | Day surgery (SDC) | payer BC ==
[2017-01-13 15:46] VITALS: Ht 180.3 cm; Wt 104.5 kg
[~2017-02-05] VITALS: Ht 180.3 cm; Wt 104.5 kg
[~2017-02-05] MED LIST changes: +IOPAMIDOL INJ 61% 15 ML VIAL ONE; +LIDOCAINE HCL 1% MPF 5 ML VIAL ONE; +SODIUM CHLORIDE 0.9% INJ 10 ML VIAL ONE
[2017-02-05 14:54] VITALS: TEMP 36.7
--- NOTE | 2017-02-05 14:59 | Discharge Instructions ---
Discharge Instructions Date of Service Feb 05, 2017. Visit Reason for Visit: Lumbar Radiculopathy Discharge Discharge Diagnosis / Problem: low back pain Discharge Goals Goal(s): Decrease discomfort, Improve function Medications Stopped Medications Name(s): ASA- LAST DOSE THURSDAY Activity Recommendations Activity Limitations: resume your previous activity Anesthesia . Post Anesthesia Instructions: If you have had General Anesthesia or IV Sedation: * Do not drive today. * Resume driving when surgeon permits. * Do not make important decisions or sign legal documents today. * Call surgeon for: 1. Temperature elevations greater than 101 degrees F. 2. Uncontrollable pain. 3. Excessive bleeding. 4. Persistent nausea and vomiting. 5. Medication intolerance (nausea, vomiting or rash). * For nausea and vomiting use only clear liquids such as: tea, soda, bouillon until nausea subsides, then gradually increase diet as tolerated. * If you have any concerns or questions, call your surgeon's office. If physician is unavailable and it is an emergency, call 911 or go to the nearest emergency room. . Diet Recommendations Recommended Home Diet: resume previous diet Procedures Procedures Performed: Lumbar Epidural Steroid Injection. Pending Studies Studies pending at discharge: no Medical Emergencies . Who to Call and When: Medical Emergencies: If at any time you feel your situation is an emergency, please call 911 immediately. . Non-Emergent Contact Non-Emergency issues call your: Specialist . . "Provider Documentation" section prepared by Epi Quinonez. .
--- NOTE | 2017-02-05 15:11 | OPERATIVE REPORT ---
DATE OF OPERATION: 02/05/2017 PREOPERATIVE DIAGNOSES: Multifactorial L4-5 stenosis and a grade 1 L4-5 spondylolisthesis with a right L5 radiculopathy. POSTOPERATIVE DIAGNOSES: Same. PROCEDURE: Right paramedian L5-S1 intralaminar epidural steroid injection under fluoroscopic guidance. INDICATIONS FOR PROCEDURE: The patient is a 71-year-old female who has both hip pain that is emanating from the hip joints as well as radicular pain down the right leg. She presents today for an epidural injection to relieve the radicular component of her pain. These have been successful in the past as well as facet denervations. PHYSICAL EXAMINATION: Pleasant female seated comfortably. She has some tenderness to palpation of her lower lumbar spine. She has no focal weakness of her lower extremities with positive seated straight leg raise of her right lower extremity, negative of her left. CONSENT: Verbal and written consent was obtained from the patient. Risks and benefits were reviewed. Risks include but are not limited to abscess and allergic reaction as well as epidural hematoma. The patient wishes to proceed. DESCRIPTION OF PROCEDURE: The patient was taken back into the special procedures room of the [facility] where she was maintained in a prone position. Backside was cleansed with Betadine x3 and a dry sterile dressing was applied. Fluoroscope was used to identify the L5-S1 intralaminar space. Overlying skin on the right side was anesthetized with 4 mL of lidocaine 1% with a 25-gauge 1.5-inch needle. A 22-gauge 3.5-inch Tuohy needle was then directed down towards the intralaminar space. It was advanced under lateral fluoroscopic guidance and loss of resistance was noted at a depth of 9 cm. No Isovue was utilized because of her IVP allergy. She then underwent injection after negative aspiration of 40 mg of Depo-Medrol and 4 mL of preservative free sodium chloride. Injection was well tolerated. DISPOSITION: 1. The patient is taken out into the discharge recovery area where she will be discharged home once discharge criteria have been met. 2. Follow up in the [facility] office in 2-4 weeks. I attest to the content of the Intraoperative Record and any orders documented therein. Any exception s are noted below.
[2017-02-05 15:12] VITALS: BP 148/92; PULSE 74; O2SAT 97
== END | disposition home or self-care (01) ==
LOC: X.SURG 13:32
PROVIDERS: ATTEND Physical Medicine & Rehabilitation
DX: M99.73 Connective tissue and disc stenosis of intervertebral foramina of lumbar region (principal); M43.16 Spondylolisthesis, lumbar region

== ENCOUNTER → 2017-02-16 | Outpatient (CLI) | payer BC ==
[~2017-02-16] MED LIST changes: -IOPAMIDOL INJ 61% 15 ML VIAL ONE; -LIDOCAINE HCL 1% MPF 5 ML VIAL ONE; -SODIUM CHLORIDE 0.9% INJ 10 ML VIAL ONE
--- NOTE | 2017-02-16 10:06 | DIAGNOSTIC IMAGING REPORT ---
(CHEST) THORAX WITHOUT CT DOSE: 957.58 mGy.cm CLINICAL HISTORY: 71 years-old Female with R91.1 Pulmonary nodule. Pulmonary nodule follow-up study. TECHNIQUE: Multiaxial CT images of the chest were performed without contrast. A dose lowering technique was utilized adhering to the principles of ALARA. COMPARISON: Chest radiographs 06/23/2016, CT abdomen and pelvis 04/14/2014. FINDINGS: No dominant thyroid nodule identified. No pathologic adenopathy of the chest is identified. Heart is normal in size. Aortic annulus calcifications are noted. No aortic aneurysm identified. There is a circumscribed round lesion involving the right pericardium adjacent to the anterior segment right upper lobe measuring 2.7 x 2.5 x 3.3 cm with household unit of 14 seen on image 171 of series 4 and appears homogeneous. There is no pneumothorax or pleural effusion. Groundglass opacities of the lung bases suggest atelectasis. There are a few scattered bilateral noncalcified pulmonary nodules measuring up to 4 mm (for example see image 55, 201 and 171 of series 4). Central airways are patent. Prior cholecystectomy. No acute abnormality of the imaged upper abdomen. The bones appear intact. Multilevel endplate spurring and intervertebral disc space narrowing is seen throughout the spine. IMPRESSION: 1. Scattered bilateral solid noncalcified pulmonary nodules are seen measuring up to 4 mm. Fleischner guidelines for follow-up are outlined below. 2. Circumscribed homogeneous low to intermediate attenuating lesion involving the pericardium on the right adjacent to the anterior segment right upper lobe is noted measuring up to 3.3 cm suggesting pericardial cyst. Evaluation however is limited without the use of IV contrast. This could be further evaluated with a contrast-enhanced study. Please refer to below summary of Fleischner criteria recommendations for follow-up of incidental CT nodules (Saray Caballero, Guidelines for management of small pulmonary nodules detected on CT scans: A statement from the Fleischner Society, Radiology 237: [phone].) SOLID NODULES Solitary nodule size: <6 mm * Low risk patients: no follow-up needed * high risk patients: optional CT at 12 months Solitary nodule size: 6-8 mm * Low risk patients: follow-up at 6-12 months, then consider further follow-up at 18-24 months * high risk patients: initial follow-up CT at 6-12 months and then at 18-24 months if no change Solitary nodule size: >8 mm * either low or high risk patients - consider follow-up CT at 3 months, and/or CT-PET, and/or biopsy Multiple nodules size: <6 mm * Low risk patients: no routine follow-up * high risk patients: optional CT at 12 months Multiple nodules size: 6-8 mm * Low risk patients: follow-up at 3-6 months, then consider further follow-up at 18-24 months * high risk patients: follow-up at 3-6 months, then at 18-24 months if no change Multiple nodules size: >8 mm * Low risk patients: follow-up at 3-6 months, then consider further follow-up at 18-24 months * high risk patients: follow-up at 3-6 months, then at 18-24 months if no change Note: newly detected indeterminate nodule in persons 35 years of age or older. * Low risk patients: minimal or absent history of smoking and/or other known risk factors * high risk patients: history of smoking or of other known risk factors (e.g. first degree relative with lung cancer, or exposure to asbestos, radon, uranium) * if a nodule up to 8 mm is partly solid or is ground glass further follow-up is required after 24 months to exclude possible slow growing adenocarcinoma (ZULEMA) SUBSOLID NODULES Solitary pure ground-glass nodule * nodule size <6 mm - no CT follow-up required * nodule size >=6 mm - follow-up CT at 6-12 months, then every 2 years until 5 years Solitary part-solid nodule * nodule size <6 mm - no CT follow-up required * nodule size >=6 mm - follow-up CT at 3-6 months. If unchanged, and solid component remains <6 mm, then annual follow-up for 5 years Multiple subsolid nodules * nodule size <6 mm - follow-up CT at 3-6 months, consider further follow-up at 2 and 4 years if stable * nodule size >=6 mm - follow-up CT at 3-6 months, subsequent management based on the most suspicious nodule(s) The above report was generated using voice recognition software. It may contain grammatical, syntax or spelling errors. Electronically signed by: Juventino Steiner M.D. 02/16/2017 10:04 AM Dictated Date/Time: 02/16/2017 9:53 AM
== END | disposition home or self-care (01) ==
LOC: C.CTS 09:24
PROVIDERS: ATTEND Physician Assistant Medical
DX: R91.1 Solitary pulmonary nodule (principal); R91.8 Other nonspecific abnormal finding of lung field

== ENCOUNTER 2017-04-06 09:10 | Inpatient (IN) | payer BC, OTHER ==
[2017-03-17 09:20] VITALS: BMI 33.0
--- NOTE | 2017-03-17 09:57 | PAT Medication Instructions ---
Service Date Mar 17, 2017. Current Home Medication List Alprazolam (Xanax), 0.5 MG PO BID Apremilast (Otezla), 30 MG PO QPM Aspirin (Aspirin), 325 MG PO QPM Azelastine Hcl (Astelin Nasal Only), 1-2 SPRAYS NA BID PRN for Nasal Congestion Benzonatate (Tessalon Perles), 100 MG PO BID PRN for Cough Cetirizine (Zyrtec), 0.5 TAB PO BID Cholecalciferol (Vitamin D3), 1 CAP PO QAM Clobetasol Propionate (Clobetasol Propionate), 1 APPLN TOP BID Dicyclomine Hcl (Dicyclomine Hcl), 1 TAB PO TID Diltiazem Hcl Ext Rel (Tiazac), 240 MG PO QAM Folic Acid (Folvite), 4 MG PO QPM Ipratropium-Albuterol (Combivent Respimat), 1 PUFFS INH BID PRN for Shortness of Breath Levothyroxine Sodium (Levothyroxine Sodium), 88 MCG PO QAM Magnesium Oxide (Mg Supplement (Magnesium), 1 TAB PO BID Methotrexate (Methotrexate), 4 TABS PO THURSDAY Nitroglycerin (Nitroglycerin Lingual), 1 SPRAY PO UD PRN for STOMACH PAIN Oyster Shell (Calcium), 1 TAB PO BID Pantoprazole (Protonix), 40 MG PO QAM Potassium Ext Rel (Klor-Con), 20 MEQ PO BID Prednisone (Prednisone), 5 MG PO QPM Spironolactone (Spironolactone), 25 MG PO QAM Medication Instructions For Your Scheduled Surgery - 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: Methotrexate (Methotrexate), 4 TABS PO THURSDAY Apremilast (Otezla), 30 MG PO QPM - Hold the following medications 2 weeks prior to surgery: Fish Oil BID - Hold the following medications 24 hours prior to surgery: Clobetasol Propionate (Clobetasol Propionate), 1 APPLN TOP BID - Hold the following medications the morning of surgery: Spironolactone (Spironolactone), 25 MG PO QAM Potassium Ext Rel (Klor-Con), 20 MEQ PO BID Oyster Shell (Calcium), 1 TAB PO BID Magnesium Oxide (Mg Supplement (Magnesium), 1 TAB PO BID Dicyclomine Hcl (Dicyclomine Hcl), 1 TAB PO TID Cholecalciferol (Vitamin D3), 1 CAP PO QAM Cetirizine (Zyrtec), 0.5 TAB PO BID Benzonatate (Tessalon Perles), 100 MG PO BID PRN for Cough Alprazolam (Xanax), 0.5 MG PO BID - Take the following medications the morning of surgery with a sip of water: Pantoprazole (Protonix), 40 MG PO QAM Nitroglycerin (Nitroglycerin Lingual), 1 SPRAY PO UD PRN for STOMACH PAIN (IF NEEDED) Levothyroxine Sodium (Levothyroxine Sodium), 88 MCG PO QAM Ipratropium-Albuterol (Combivent Respimat), 1 PUFFS INH BID PRN for Shortness of Breath(IF NEEDED) Diltiazem Hcl Ext Rel (Tiazac), 240 MG PO QAM Azelastine Hcl (Astelin Nasal Only), 1-2 SPRAYS NA BID PRN for Nasal Congestion (IF NEEDED) - Take the following medications as scheduled the night before surgery: Prednisone (Prednisone), 5 MG PO QPM Potassium Ext Rel (Klor-Con), 20 MEQ PO BID Nitroglycerin (Nitroglycerin Lingual), 1 SPRAY PO UD PRN for STOMACH PAIN (IF NEEDED) Ipratropium-Albuterol (Combivent Respimat), 1 PUFFS INH BID PRN for Shortness of Breath(IF NEEDED) Folic Acid (Folvite), 4 MG PO QPM Dicyclomine Hcl (Dicyclomine Hcl), 1 TAB PO TID Cetirizine (Zyrtec), 0.5 TAB PO BID Azelastine Hcl (Astelin Nasal Only), 1-2 SPRAYS NA BID PRN for Nasal Congestion (IF NEEDED) Benzonatate (Tessalon Perles), 100 MG PO BID PRN for Cough(IF NEEDED) Aspirin (Aspirin), 81 MG PO QPM (okay to continue per surgeon) Alprazolam (Xanax), 0.5 MG PO BID If you have any questions please call us at [phone] or [phone] or [phone]
--- NOTE | 2017-03-17 10:45 | DIAGNOSTIC IMAGING REPORT ---
CERVICAL SPINE 2 OR 3 VIEWS HISTORY: Preoperative evaluation PREOP, RHEUMATOID ARTHRITIS COMPARISON: None. FINDINGS: The cervical spine is visualized from C1 through the superior endplate of T1. There is no fracture. Examination is acquired with the patient in the flexion neutral as well as extended positions. There is no evidence for subluxation. Alignment remains grossly anatomic. There is no disruption of the C1-C2 complex. Significant degenerative disc changes throughout. Prevertebral soft tissues and the atlantodens interval are intact. IMPRESSION: Considerable degenerative change. No evidence for subluxation on a positional basis. The above report was generated using voice recognition software. It may contain grammatical, syntax or spelling errors. Electronically signed by: Jose Tripp M.D. 03/17/2017 10:43 AM Dictated Date/Time: 03/17/2017 10:42 AM
[2017-03-17 11:02] LABS: URINE APPEARANCE CLEAR (CLEAR); URINE BILIRUBIN NEG (NEG); URINE COLOR YELLOW; URINE NITRITE NEG (NEG); URINE PH 5.5 (4.5-7.5); URINE SPECIFIC GRAVITY 1.024 (1.000-1.030); UROBILINOGEN NEG (NEG); ZZUR CULT IF INDIC CLEAN CATCH NO
[2017-03-17 11:03] LABS: MANUAL MICROSCOPIC REQUIRED? NO; REVIEW REQ? NO
[2017-03-17 11:42] LABS: BASO % 0.4 %; BASO ABS # 0.02 K/uL (0-0.2); COMPLETE YES; EOS % 1.8 %; HEMATOCRIT 36.7 % (37-47); IG% 0.4 %; LYMPH % 26.1 %; LYMPH ABS # 1.43 K/uL (1.2-3.4); MEAN CELL VOLUME 92.9 fL (80-100); MEAN CORPUSCULAR HEMOGLOBIN 30.1 pg (25-34); MEAN CORPUSCULAR HGB CONC 32.4 g/dl (32-36); MEAN PLATELET VOLUME 11.2 fL (7.4-10.4); MONO % 6.9 %; NEUT % 64.4 %; PLATELET COUNT 280 K/uL (130-400); RED BLOOD COUNT 3.95 M/uL (4.2-5.4); WHITE BLOOD COUNT 5.48 K/uL (4.8-10.8)
[2017-03-17 11:55] LABS: BUN/CREATININE RATIO 14.9 (10-20); CALCIUM 8.8 mg/dl (8.5-10.1); CREATININE 1.55 mg/dl (0.60-1.20); POTASSIUM 3.8 mmol/L (3.5-5.1)
[2017-04-06] VITALS (8 sets, daily range): BP systolic 138–161; BP diastolic 74–86; PULSE 52–70; TEMP 35.6–37.1; O2SAT 94–99; Ht 180.3 cm; Wt 110.1 kg
[~2017-04-06] VITALS: Ht 180.3 cm; Wt 110.1 kg
[~2017-04-06 09:10] MED LIST changes: +ASPI-435 PO; -ASPI325T45 PO; +BENZ100C84 PO; +CEFAZOLIN 2000MG IV PUSH 10 ML IV SCH; +CLBPO15 TOP; +LACTATED RINGER'S 1000ML 1,000 ML IV SCH; +NITR0.1S PO; -NITR0.4S76 PO; +OMEG1CAP81 PO
[2017-04-06] MEDS ORDERED: TRMO2580 TOP (09:42)
[2017-04-06] MEDS ORDERED: MULT-506 PO (09:42)
--- NOTE | 2017-04-06 10:18 | History and Physical ---
History & Physical Date Apr 06, 2017. 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 (11) Hypertension Nos (12) Irritable Bowel Syndrome (13) Lumbar Disc Displacement (14) Osteoarthritis, knee (15) Reflux Esophagitis (16) Rheumatoid Arthritis Surgical Problems: (1) H/O thyroidectomy Additional History Hepatic Disease: No Endocrine Disorder: No Kidney Disease: No Hypertension: Yes Heart Disease: No Bleeding Tendencies: No Infectious Diseases: No Allergies Coded Allergies: Codeine (Verified Allergy, Severe, THROAT SWELLING, 04/06/17) Diclofenac (Verified Allergy, Intermediate, CREATINE ELEVATION, 04/06/17) Isopropyl Alcohol (Verified Allergy, Intermediate, CREATINE ELEVATION, ) Propylene Glycol (Verified Allergy, Intermediate, CREATINE ELEVATION, ) Iodinated Diagnostic Agents (Verified Allergy, Unknown, RASH, 04/06/17) Sulfa Antibiotics (Verified Allergy, Unknown, RASH TO SULFA DRUGS, ) Tetracycline (Verified Allergy, Unknown, RASH, 04/06/17) Home Medications Scheduled Alprazolam (Xanax), 0.5 MG PO BID Apremilast (Otezla), 30 MG PO QPM Aspirin (Aspirin 81), 1 TAB PO HS Cetirizine (Zyrtec), 0.5 TAB PO BID Cholecalciferol (Vitamin D3), 1 CAP PO QAM Clobetasol Propionate (Clobetasol Propionate), 1 APPLN TOP BID Dicyclomine Hcl (Dicyclomine Hcl), 1 TAB PO TID Diltiazem Hcl Ext Rel (Tiazac), 240 MG PO QAM Folic Acid (Folvite), 4 MG PO QPM Levothyroxine Sodium (Levothyroxine Sodium), 88 MCG PO QAM Magnesium Oxide (Mg Supplement (Magnesium), 1 TAB PO BID Methotrexate (Methotrexate), 4 TABS PO THURSDAY Multivitamin (Multivitamin), 1 TAB PO DAILY Sisters-3 Fatty Acids (Fish Oil), 1 CAP PO BID Oyster Shell (Calcium), 1 TAB PO BID Pantoprazole (Protonix), 40 MG PO QAM Potassium Ext Rel (Klor-Con), 20 MEQ PO BID Prednisone (Prednisone), 5 MG PO QPM Spironolactone (Spironolactone), 25 MG PO QAM Triamcinolone Acetonide (Topic (Triamcinolone Acet 0.025%), 1 APPLN TOP BID Scheduled PRN Azelastine Hcl (Astelin Nasal [place]), 1-2 SPRAYS NA BID PRN for Nasal Congestion Benzonatate (Tessalon Perles), 100 MG PO BID PRN for Cough Ipratropium-Albuterol (Combivent Respimat), 1 PUFFS INH BID PRN for Shortness of Breath Nitroglycerin (Nitroglycerin Lingual), 1 SPRAY PO UD PRN for STOMACH PAIN Physical Examination Skin: warm/dry, no rash Eyes: normal inspection, EOMI, sclerae normal ENT: normal ENT inspection, pharynx normal Head: normocephalic, atraumatic Neck: supple, no adenopathy, trachea midline Respiratory/Chest: lungs clear, normal breath sounds, no respiratory distress Cardiovascular: regular rate, rhythm, no edema, no murmur Abdomen / GI: normal bowel sounds, non tender Back: normal inspection Extremities: normal inspection, normal range of motion Neurologic/Psych: no motor/sensory deficits, alert, normal reflexes, oriented x 3 Diagnosis Lumbar spinal stenosis with spondylolisthesis Plan of Treatment Lumbar decompression and fusion L4 5 and possible L5-S1
[2017-04-06] MEDS ORDERED: MIDAZOLAM HCL 1 MG/ML 2ML VIAL ONE (10:24)
[2017-04-06] MEDS ORDERED: FENTANYL CITRATE INJ 50 MCG/1 ML 2 ML VIAL ONE ×3 (10:24→13:33)
[2017-04-06] MEDS ORDERED: PROMETHAZINE HCL INJ 6.25 MG in SODIUM CHLORIDE 0.9% 50ML 50 ML IV PRN (10:30)
[2017-04-06] MEDS ORDERED: EpHEDrine SULFATE INJ 50 MG/ML AMP IV PRN (10:30)
[2017-04-06] MEDS ORDERED: ONDANSETRON INJ 2 MG/ML 2 ML VIAL IV PRN ×2 (10:30→13:45)
[2017-04-06] MEDS ORDERED: ATROPINE SULFATE 0.1 MG/ML 5ML SYR IV PRN (10:30)
[2017-04-06] MEDS ORDERED: HYDROmorphone INJ 1 MG/ML SYR IV PRN (10:30)
[2017-04-06] MEDS ORDERED: CEFAZOLIN SOD 2000MG/10 ML IV PUSH IV ONE (10:38)
[2017-04-06] MEDS ORDERED: BUPIVACAINE/EPINEPHRINE 0.5% MPF 1:200,000 30 ML VIAL ONE (10:43)
[2017-04-06] MEDS ORDERED: BACITRACIN 50000 UNIT VIAL ONE (10:43)
[2017-04-06] MEDS ORDERED: HYDROmorphone INJ 2 MG/ML SYR/VIAL ONE ×2 (11:20→13:37)
[2017-04-06] MEDS ORDERED: LIDOCAINE HCL 2% 2 ML VIAL (20MG/ML) ONE (12:22)
[2017-04-06] MEDS ORDERED: ONDANSETRON INJ 2 MG/ML 2 ML VIAL ONE ×2 (12:22→13:38)
[2017-04-06] MEDS ORDERED: EpHEDrine SULFATE 50MG/5ML SYR ONE ×2 (12:22→13:38)
[2017-04-06] MEDS ORDERED: DEXAMETHASONE SOD INJ 4 MG/ML VIAL ONE (12:22)
[2017-04-06] MEDS ORDERED: PROPOFOL IV EMULSION 10 MG/ML 20 ML VIAL IV ONE (12:22)
[2017-04-06] MEDS ORDERED: ALBUMIN HUMAN 5% 12.5 GM/250 ML VIAL IV ONE ×2 (12:46→13:22)
[2017-04-06] MEDS ORDERED: FLOSEAL HEMOSTATIC MATRIX 10ML TOP ONE (13:27)
[2017-04-06] MEDS ORDERED: NEOSTIGMINE METHYLSULFATE 1 MG/ML 10ML VIAL ONE (13:39)
[2017-04-06] MEDS ORDERED: GLYCOPYRROLATE INJ 0.2 MG/ML VIAL ONE (13:39)
--- NOTE | 2017-04-06 13:42 | [facility] Operative Report ---
Operative Report Operative Date Apr 06, 2017. Pre-Operative Diagnosis lumbar spinal stenosis Post-Operative Diagnosis same Procedure(s) Performed #1 lumbar decompression medial facetectomy foraminotomies L3 4 L4 5 L5-S1. #2 posterior spinal fusion L4 5 L5-S1. #3 placement posterior segmental instrumentation L4 5 L5-S1. #4 interbody fusion L4 5 L5-S1. #5 placement peek cage 12 x 22 mm at L4 5 and 11 x 26 mm at L5-S1. #6 placement of locally harvested morcellized autograft in the posterior lateral gutters. #7 placement infuse collagen sponge commode Master graft the posterior gutters and ostial amp in the interbody space. Surgeon Dr. Epi Estes Louver Door Assembler Surgeon(s) Noy Fernandez PA-C Estimated Blood Loss 750ml Findings Severe spinal stenosis with spondylolisthesis Specimens none per surgeon Description of Procedure Patient was met with preoperatively case discussed all questions addressed. After informed consent was obtained patient was taken to the operative suite and intubated and placed in a prone position the Justin table on top Diaz frame. All bony prominences were well-padded eyes inspected to ensure there is no external pressure placed upon them. This point the lumbar spine was prepped and draped in the normal sterile fashion. Sharp dissection with the assistance of Bovie cautery was performed onto an exposing the lamina and transverse processes of L4-L5 and the sacral alar bilaterally. From a caudal to cephalad fashion complete laminectomy of L5 L4 partial laminectomy of L3 was performed addressing severe lateral recess stenosis. Pedicle screws are then placed in L4 -L5 and S1 levels bilaterally with assistance of fluoroscopy and the probably size linda placed. Through a transforaminal approach a right a complete discectomy of L5 S1 was performed and plate created to subcortical bleeding bone and a 11 x 26 mm peek cage filled with ostial amp bone graft tapped in position. I then proceeded L45 and again a complete discectomy was performed by way of a transverse foraminal approach on the right. An plates curetted to subcortical bleeding bone. A 12 x 22 mm peek cage filled with ostial amp was tapped in position. The rods were then locked and final position bilaterally. The transverse processes of L4-L5 and sacral alar burred to subcortical bleeding bone and infuse collagen sponge by mask graft locally harvested morcellized autograft was placed and posterior gutters. 15 round ROXANE drain was inserted. Incision was closed with 1 Vicryl in the fascia 2-0 Vicryl subcutaneous tediously 4 Monocryl for final skin closure Steri-Strips sterile dressings placed. Patient we can taken to PACU stable condition. Please note Noy Pak was present at the entire procedure involved in patient positioning complex portions of the surgery and final skin closure. I attest to the content of the Intraoperative Record and any orders documented therein. Any exceptions are noted below.
[2017-04-06] MEDS ORDERED: NALOXONE HCL 0.4 MG/1 ML VIAL/CARP IV PRN ×2 (13:45→14:15)
[2017-04-06] MEDS ORDERED: IPRATROPIUM BROMIDE/ALBUTEROL respimat INH INH PRN (13:45)
[2017-04-06] MEDS ORDERED: hydrOXYzine HCL 25 MG TAB PO PRN (13:45)
[2017-04-06] MEDS ORDERED: MAGNESIUM HYDROXIDE SUSP 30 ML UDC PO PRN (13:45)
[2017-04-06] MEDS ORDERED: LORAZEPAM INJ 0.5 MG in SYRINGE 0 ML IV PRN (13:45)
[2017-04-06] MEDS ORDERED: ACETAMINOPHEN 500 MG TAB PO PRN (13:45)
[2017-04-06] MEDS ORDERED: ALUMINUM/MAGNESIUM SUSP 30 ML UDC PO PRN (13:45)
[2017-04-06] MEDS ORDERED: FAMOTIDINE 20 MG TAB PO PRN (13:45)
[2017-04-06] MEDS ORDERED: BENZONATATE 100MG CAP PO PRN (13:45)
[2017-04-06] MEDS ORDERED: BISACODYL 10 MG SUPP PR PRN (13:45)
[2017-04-06] MEDS ORDERED: SOD PHOSPHATE/SOD BIPHOSPHATE ENEMA 132 ML BTL PR PRN (13:45)
[2017-04-06] MEDS ORDERED: DO NOT ADMINISTER PNEUMOCOCCAL VACCINE PRN ×2 (13:45)
[2017-04-06] MEDS ORDERED: METOCLOPRAMIDE HCL INJ 5 MG/ML 2 ML VIAL IV PRN (13:45)
[2017-04-06] MEDS ORDERED: PROMETHAZINE HCL INJ 12.5 MG in SODIUM CHLORIDE 0.9% 50ML 50 ML IV PRN (13:45)
[2017-04-06] MEDS ORDERED: DO NOT ADMINISTER FLU VACCINE PRN ×3 (13:45)
[2017-04-06] MEDS ORDERED: ACETAMINOPHEN IV 100 ML IV PRN (13:45)
--- NOTE | 2017-04-06 13:46 | DIAGNOSTIC IMAGING REPORT ---
LUMBAR SPINE 2 OR 3 VIEW CLINICAL HISTORY: 71 years-old Female presenting with L4-L5 DECOMPRESSION AND FUSION/ POSSIBLE L5-S1. TECHNIQUE: 2 fluoroscopic spot image(s) obtained as part of an intraoperative procedure. COMPARISON: 02/18/2017. FINDINGS/IMPRESSION: Bilateral transpedicular screw and linda fixation of L4-S1 with interbody spacers. Grossly normal anatomic alignment. Please see surgical report for further details. Fluoroscopy dosage (mGy): Not available. Fluoroscopy time: 24.6 seconds. Number of fluoroscopic spot images: 2. Electronically signed by: Shelton Roach M.D. 04/06/2017 1:44 PM Dictated Date/Time: 04/06/2017 1:44 PM
[2017-04-06] MEDS ORDERED: HydrALAZINE HCL 20 MG/ML VIAL ONE (13:56)
[2017-04-06] MEDS ORDERED: SODIUM CHLORIDE 0.9% 1000ML 1,000 ML IV SCH (14:07)
[2017-04-06] MEDS ORDERED: HYDROmorphone HCL 0.5MG/ML 50 ML CASSETTE ONE (14:12)
[2017-04-06] MEDS: FENTANYL CITRATE INJ 50 MCG/1 ML 2 ML VIAL IV PRN ×2 (14:25→14:30)
[2017-04-06 14:30] LABS: HEMATOCRIT 31.9 % (37-47)
[2017-04-06] MEDS ORDERED: DiphenhydrAMINE HCL 50 MG/ML VIAL ONE (14:53)
[2017-04-06] MEDS ORDERED: DiphenhydrAMINE HCL 50 MG/ML VIAL IV STA (14:53)
--- NOTE | 2017-04-06 14:56 | Anesthesiology Progress Note ---
Anesthesia Post Op Note Date & Time Apr 06, 2017 at 14:54 Vital Signs Pain Intensity: 7.0 Vital Signs Past 12 Hours Date Time Temp Pulse Resp B/P (MAP) Pulse Ox O2 Delivery O2 Flow Rate FiO2 04/06/17 14:20 66 25 173/86 97 Oxymask 10 04/06/17 14:10 67 25 173/92 98 Oxymask 10 04/06/17 14:00 66 22 183/93 96 Oxymask 10 04/06/17 13:52 36.6 75 16 194/98 96 Oxymask 04/06/17 09:45 36.5 52 20 144/82 Notes Mental Status: alert / awake / arousable, participated in evaluation Pt Amnestic to Procedure: Yes Nausea / Vomiting: adequately controlled Pain: adequately controlled Airway Patency, RR, SpO2: stable & adequate BP & HR: stable & adequate Hydration State: stable & adequate Anesthetic Complications: no major complications apparent Patient doing well in pacu but c/o some moderate generalized pruritis. No weezing and no dyspnea. Exam shows no hives or rash. VS are normal. Suspect that this is due to her narcotic and she is responding well in benadryl. If returns on the floor, would recommend a small dose of Nubain along with her pain meds.
[2017-04-06] MEDS: HYDROmorphone HCL 0.5MG/ML 50 ML CASSETTE IV PRN ×3 (14:58→23:00)
[2017-04-06] MEDS: SODIUM CHLORIDE 0.9% 1000ML 1,000 ML IV SCH (18:07)
[2017-04-06] MEDS: CEFAZOLIN IV 2,000 MG in SYRINGE 0 ML IV SCH (19:00)
[2017-04-06] MEDS ORDERED: NURSING VERBAL MED ORDER ONE (19:45)
--- NOTE | 2017-04-06 19:56 | Medical Consult ---
Consultation Date of Consultation: Apr 06, 2017. Attending Physician: Epi Estes D.O. History of Present Illness Ms. Vergara is a 71 year old woman here for decompression and fusion of her lumbar spine with Dr. Ballard. She has been suffering from back pain for 8 years due to arthritis. 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 She feels well since surgery except for her itchy skin. She is not yet passing gas after surgery. She does have numbness in her left foot but this is baseline Past Medical/Surgical History Medical Problems: (1) Ear pain, right Status: Acute (2) TMJ dysfunction Status: Acute Family History Cancer FH: heart disease Hypertension Social History Smoking Status: Former Smoker (ages [age]) Smokeless Tobacco Use: No Alcohol Use: socially (very occasionally) Drug Use: none Marital Status: Housing Status: lives with significant other Occupation Status: retired Allergies Coded Allergies: Codeine (Unverified Allergy, Intermediate, THROAT SWELLING, 04/06/17) 04/06/17: pt reported codeine = nausea to dr Aguiar (Anes) Diclofenac (Verified Allergy, Intermediate, CREATINE ELEVATION, 04/06/17) Isopropyl Alcohol (Verified Allergy, Intermediate, CREATINE ELEVATION, ) Propylene Glycol (Verified Allergy, Intermediate, CREATINE ELEVATION, ) Iodinated Diagnostic Agents (Verified Allergy, Unknown, RASH, 04/06/17) Sulfa Antibiotics (Verified Allergy, Unknown, RASH TO SULFA DRUGS, ) Tetracycline (Verified Allergy, Unknown, RASH, 04/06/17) Current Inpatient Medications Current Inpatient Medications Medications (Trade) Dose Ordered Sig/Carrie Route Start Time Stop Time Status Last Admin Dose Admin Lactated Ringer's 1,000 ml @ 15 mls/hr Q24H IV 04/06/17 06:00 04/07/17 05:59 04/06/17 10:10 15 MLS/HR Dexamethasone Sodium Phosphate 6 mg/Syringe 1.5 ml @ 1 mls/min Q8H IV 04/06/17 20:00 04/07/17 12:02 Promethazine HCl 12.5 mg/Sodium Chloride 50.5 ml @ 202 mls/hr Q6H PRN IV 04/06/17 13:45 05/06/17 13:44 Ondansetron HCl (Zofran Inj) 4 mg Q6H PRN IV 04/06/17 13:45 05/06/17 13:44 Metoclopramide HCl (Reglan Inj) 10 mg Q6H PRN IV 04/06/17 13:45 05/06/17 13:44 Lorazepam (Ativan Tab) 0.5 mg Q8H PRN PO 04/06/17 13:45 05/06/17 13:44 Lorazepam 0.5 mg/ Syringe 0.25 ml @ 1 mls/min Q8H PRN IV 04/06/17 13:45 05/06/17 13:44 Pneumococcal Polysaccharide Vaccine 1 ea PRN PRN N/A 04/06/17 13:45 05/06/17 13:44 Influenza Virus Vacc Triv Types A&B 1 ea PRN PRN N/A 04/06/17 13:45 05/06/17 13:44 Polyethylene (Miralax Powder Packet) 17 gm Q6 PO 04/08/17 06:00 05/08/17 05:59 Bisacodyl (Dulcolax Supp) 10 mg DAILY PRN [place] 04/06/17 13:45 05/06/17 13:44 Magnesium Hydroxide (Milk Of Magnesia Susp) 30 ml DAILY PRN PO 04/06/17 13:45 05/06/17 13:44 Hydromorphone HCl (Dilaudid Inj) 0.5-1mg prn moder... Q3H PRN IV 04/07/17 06:01 04/21/17 06:00 Oxycodone HCl (Roxicodone Immediate Rel Tab) 5-10mg prn moderate to sev... Q4H PRN PO 04/07/17 06:00 04/21/17 05:59 Cefazolin Sodium 2000 mg/Syringe 10 ml @ 2.5 mls/min Q8H IV 04/06/17 18:00 04/07/17 02:03 04/06/17 19:00 2.5 MLS/MIN Sodium Chloride 1,000 ml @ 150 mls/hr Q6H40M IV 04/06/17 13:33 04/07/17 06:00 04/06/17 18:07 150 MLS/HR Acetaminophen (Tylenol Tab) 1,000 mg Q8H PRN PO 04/06/17 13:45 05/06/17 13:44 Acetaminophen 100 ml @ 400 mls/hr Q8H PRN IV 04/06/17 13:45 05/06/17 13:44 Naloxone HCl (Narcan Inj) 0.1 mg Q5M PRN IV 04/06/17 13:45 05/06/17 13:44 Senna/Docusate Sodium (Senokot S Tab) 2 tab HS PO 04/06/17 21:00 05/06/17 20:59 Sodium Biphosphate/ Sodium Phosphate (Fleet Enema) 132 ml ONE PRN [place] 04/06/17 13:45 05/06/17 13:44 Hydroxyzine HCl (Vistaril Tab) 25 mg Q8H PRN PO 04/06/17 13:45 05/06/17 13:44 Al Hydroxide/Mg Hydroxide (Maalox Susp) 30 ml Q6H PRN PO 04/06/17 13:45 05/06/17 13:44 Famotidine (Pepcid Tab) 20 mg Q12 PRN PO 04/06/17 13:45 05/06/17 13:44 Diphenhydramine HCl (Benadryl Cap) 25 mg Q6H PRN PO 04/06/17 13:45 05/06/17 13:44 Miscellaneous Information (Discontinue CANDY CUTTER HAND) 1 ea ONE ONCE N/A 04/07/17 06:00 04/07/17 06:01 Aspirin (Ecotrin Tab) 81 mg HS PO 04/06/17 21:00 05/06/17 20:59 Benzonatate (Tessalon Perles Cap) 100 mg BID PRN PO 04/06/17 13:45 05/06/17 13:44 Cetirizine HCl (zyrTEC TAB) 5 mg BID PO 04/06/17 21:00 05/06/17 20:59 Dicyclomine HCl (Bentyl Tab) 20 mg TID PO 04/06/17 21:00 05/06/17 20:59 Diltiazem HCl (TIAzac CAP) 240 mg QAM PO 04/07/17 09:00 05/07/17 08:59 Folic Acid (Folvite Tab) 4 mg QPM PO 04/06/17 21:00 05/06/17 20:59 Albuterol/ Ipratropium (Combivent Respimat Inh) 1 puffs BID PRN INH 04/06/17 13:45 05/06/17 13:44 Levothyroxine Sodium (Synthroid Tab) 88 mcg DAILYBB PO 04/07/17 06:00 05/07/17 05:59 Potassium Chloride (Klor-Con Tab) 20 meq BID PO 04/06/17 21:00 05/06/17 20:59 Prednisone (PredniSONE TAB) 5 mg QPM PO 04/07/17 21:00 05/07/17 20:59 Spironolactone (Aldactone Tab) 25 mg QAM PO 04/07/17 09:00 05/07/17 08:59 Pantoprazole Sodium (Protonix Tab) 40 mg QAM PO 04/07/17 09:00 05/07/17 08:59 Naloxone HCl (Narcan Inj) 0.1 mg Q5M PRN IV 04/06/17 14:15 04/07/17 06:01 Hydromorphone HCl (Dilaudid Fire Prevention Engineer) 25 mg PRN PRN IV 04/06/17 14:15 04/07/17 06:01 04/06/17 15:43 25 MG Sodium Chloride 1,000 ml @ 15 mls/hr Q24H IV 04/06/17 14:07 04/07/17 06:01 Miscellaneous Information (Order Awaiting Action) 1 ea QS N/A 04/06/17 16:00 05/06/17 15:59 Magnesium Oxide (Mag-Ox Tab) 400 mg BID PO 04/06/17 21:00 05/06/17 20:59 Miscellaneous Information (Nursing Verbal Med Order) 1 ea ONE ONCE N/A 04/06/17 19:45 04/06/17 19:46 UNV Review of Systems Constitutional: No fever, No chills Respiratory: No cough, No shortness of breath Cardiovascular: No chest pain, No palpitations Abdomen: + constipation, No pain, No nausea, No vomiting Genitourinary - Female: No dysuria Physical Exam Date Time Temp Pulse Resp B/P (MAP) Pulse Ox O2 Delivery O2 Flow Rate FiO2 04/06/17 18:50 36.6 68 20 160/74 (102) 98 Nasal Cannula 4.0 04/06/17 17:47 36.6 64 18 159/86 (110) 98 Nasal Cannula 4.0 04/06/17 16:47 35.6 63 18 151/76 (101) 99 Nasal Cannula 4.0 04/06/17 16:15 36.1 66 18 150/78 (102) 97 Nasal Cannula 4.0 04/06/17 15:45 Nasal Cannula 04/06/17 15:45 36.5 70 18 138/78 (98) 96 Nasal Cannula 4.0 04/06/17 15:20 73 17 149/72 96 Nasal Cannula 4 04/06/17 15:10 36.8 72 16 135/72 96 Nasal Cannula 4 04/06/17 15:00 66 16 135/75 97 Nasal Cannula 4 04/06/17 14:50 70 18 140/75 95 Nasal Cannula 4 04/06/17 14:40 73 24 160/83 96 Nasal Cannula 4 04/06/17 14:30 75 25 161/81 96 Nasal Cannula 4 04/06/17 14:20 66 25 173/86 97 Oxymask 10 04/06/17 14:10 67 25 173/92 98 Oxymask 10 04/06/17 14:00 66 22 183/93 96 Oxymask 10 04/06/17 13:52 36.6 75 16 194/98 96 Oxymask 10 04/06/17 09:45 36.5 52 20 144/82 General: no distress Eyes: normal inspection, PERLL Respiratory: chest non tender, clear to auscultation, normal breath sounds, no respiratory distress, no accessory muscle use Cardiac: regular rate and rhythm, no rub or gallop, II/ murmur right sternal border second intercostal space, no edema, no jvd GI/: active bowel sounds, no abd pain or tenderness, soft, non distended Extremities: normal range of motion, normal strength, non tender Neuro/Psych: alert and oriented x 3, normal mood and affect Skin: normal color, dry Laboratory Results Last 24 Hours Test 04/06/17 14:19 Hemoglobin 10.2 g/dL Hematocrit 31.9 % Assessment & Plan Ms. Vergara is a 71 year old woman here for decompression and fusion of her lumbar spine with Dr. Ballard. 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 Post op 04/06 - monitor for blood loss - cbc in the am - bowel regimen per primary team - pain control per primary team Psoriasis/RA - continue prednisone - hold methotrexate for now in the immediate post op period - continue triamcinolone and calcipotrien ointments, eucerin cream Hypertension - continue diltiazem and spironolactone Thyroidectomy - continue levothyroxine Seasonal allergies - continue cetirizine GERD - continue po protonix Gastroparesis - continue bentyl Thank you for allowing us to participate in this patient's care, we will continue to follow. Attending consult note & attestation: Pt seen/examined, chart reviewed, care plan d/w SPEEDY Melendez. I agree w/ the ellis components of her documentation with the addition of - CKD stage 2-3. 71yo female with steroid-dependent RA/psoriatic arthritis, CKD stage 2-3, and HTN who presented for elective lumbar back surgery today by Dr. Doug Estes. Post-op doing well with no dyspnea, cp, abd pain or nausea. Received stress dose IV steroids today. PMH, PSH, allergies, meds, sochx, famhx, ros - reviewed VSS, BPs mildly high sats wnl gen - nad mouth - MM dry heart - 2/6 systolic murmur RUSB, RRR lungs - CTA b/l abd - mild distension, BS+ ext - no edema neuro - strength 5/5 x b/l legs A/P: 1. s/p lumbar back surgery 2. steroid-dependent RA/psoriatic arthritis - cont stress dose steroids which will also be used for her back 3. HTN - hold aldactone until BMP is back in AM 4. CKD stage 2-3 - BMP am 5. acute blood loss anemia anticipated; follow daily CBC, Fe supplement probably will be needed Radu ERAZO MD
[2017-04-06] MEDS ORDERED: EUCERIN CR 120 GM JAR EXT PRN (20:15)
[2017-04-06] MEDS ORDERED: NON-FORMULARY MEDICATION SCH (20:15)
[2017-04-06] MEDS ORDERED: MAGNESIUM OXIDE 400 MG TAB PO SCH ×2 (21:00)
[2017-04-06] MEDS ORDERED: NON-FORMULARY MEDICATION (Apremilast (Otezla) 30 MG) PO SCH (21:00)
[2017-04-06] MEDS ORDERED: ALPRAZOLAM 0.5 MG TAB PO SCH (21:00)
[2017-04-06] MEDS: DEXAMETHASONE INJ 6 MG in SYRINGE 0 ML IV SCH (21:07)
[2017-04-06] MEDS: DICYCLOMINE HCL 20 MG TAB PO SCH (21:49)
[2017-04-06] MEDS: ASPIRIN 81 MG ECTAB PO SCH (21:49)
[2017-04-06] MEDS: POTASSIUM CHLORIDE 20 MEQ TABCR PO SCH (21:50)
[2017-04-06] MEDS: MAGNESIUM OXIDE 400 MG TAB PO SCH (21:50)
[2017-04-06] MEDS: CETIRIZINE HCL 10 MG TAB PO SCH (21:51)
[2017-04-06] MEDS: DOCUSATE SODIUM/SENNA 50/8.6MG TAB PO SCH (21:57)
[2017-04-06] MEDS: TRIAMCINOLONE ACET 0.025% CR 15 GM TUBE EXT SCH (21:58)
[2017-04-06] MEDS: CALCIPOTRIENE EXT SCH (21:58)
[2017-04-07] MEDS: SODIUM CHLORIDE 0.9% 1000ML 1,000 ML IV SCH (01:35)
[2017-04-07] MEDS: CEFAZOLIN IV 2,000 MG in SYRINGE 0 ML IV SCH (01:36)
[2017-04-07 03:17] VITALS: BP 158/81; PULSE 81; TEMP 37.3; O2SAT 95
[2017-04-07] MEDS: DEXAMETHASONE INJ 6 MG in SYRINGE 0 ML IV SCH ×2 (04:09→12:07)
[2017-04-07] MEDS: LEVOTHYROXINE 88 MCG TAB PO SCH (05:28)
[2017-04-07] MEDS ORDERED: DC PCA ONE (06:00)
[2017-04-07 06:47] VITALS: BP 155/73; PULSE 78; TEMP 37.3; O2SAT 93
[2017-04-07 07:13] LABS: COMPLETE YES; HEMATOCRIT 30.7 % (37-47); IG% 0.4 %; LYMPH % 3.8 %; LYMPH ABS # 0.81 K/uL (1.2-3.4); MEAN CELL VOLUME 91.9 fL (80-100); MEAN CORPUSCULAR HEMOGLOBIN 29.6 pg (25-34); MEAN CORPUSCULAR HGB CONC 32.2 g/dl (32-36); MEAN PLATELET VOLUME 10.7 fL (7.4-10.4); MONO % 4.2 %; NEUT % 91.6 %; PLATELET COUNT 242 K/uL (130-400); RED BLOOD COUNT 3.34 M/uL (4.2-5.4); WHITE BLOOD COUNT 21.14 K/uL (4.8-10.8)
[2017-04-07] MEDS: OXYCODONE HCL IR 5 MG TAB (IMMEDIATE RELEASE) PO PRN ×3 (07:20→19:39)
[2017-04-07 07:41] LABS: BUN/CREATININE RATIO 12.5 (10-20); CALCIUM 8.6 mg/dl (8.5-10.1); CREATININE 1.75 mg/dl (0.60-1.20); POTASSIUM 4.5 mmol/L (3.5-5.1)
[2017-04-07] MEDS: PANTOprazole SOD 40 MG TAB PO SCH (07:54)
--- NOTE | 2017-04-07 07:59 | Anesthesiology Progress Note ---
Anesthesia Post Op Note Date & Time Apr 07, 2017 at 07:59 Vital Signs Pain Intensity: 8.0 Vital Signs Past 12 Hours Date Time Temp Pulse Resp B/P (MAP) Pulse Ox O2 Delivery O2 Flow Rate FiO2 04/07/17 06:47 37.3 78 16 155/73 (100) 93 Room Air 04/07/17 03:17 37.3 81 18 158/81 (106) 95 Room Air 04/06/17 23:30 Room Air 04/06/17 22:45 37.1 67 18 161/82 (108) 94 Room Air 04/06/17 20:30 94 Room Air Notes Mental Status: alert / awake / arousable, participated in evaluation Pt Amnestic to Procedure: Yes Nausea / Vomiting: adequately controlled Pain: adequately controlled Airway Patency, RR, SpO2: stable & adequate BP & HR: stable & adequate Hydration State: stable & adequate Anesthetic Complications: no major complications apparent
[2017-04-07] MEDS: HYDROmorphone INJ 1 MG/ML SYR IV PRN ×2 (08:11→15:49)
[2017-04-07] MEDS ORDERED: SPIRONOLACTONE 25 MG TAB PO SCH (09:00)
[2017-04-07] MEDS: MAGNESIUM OXIDE 400 MG TAB PO SCH ×2 (09:07→21:57)
[2017-04-07] MEDS: DILTIAZEM HCL 120 MG EXT REL CAP PO SCH (09:07)
[2017-04-07] MEDS: CETIRIZINE HCL 10 MG TAB PO SCH ×2 (09:08→21:58)
[2017-04-07] MEDS: POTASSIUM CHLORIDE 20 MEQ TABCR PO SCH ×2 (09:09→21:58)
[2017-04-07] MEDS: DICYCLOMINE HCL 20 MG TAB PO SCH ×3 (09:09→21:57)
[2017-04-07] MEDS ORDERED: RXC5 PO (10:15)
--- NOTE | 2017-04-07 10:16 | Discharge Instructions ---
Discharge Instructions Date of Service Apr 07, 2017. Admission Reason for Admission: Spinal Stenosis Discharge Discharge Diagnosis / Problem: lumbar spinal stenosis Discharge Goals Goal(s): Improve function Activity Recommendations Activity Limitations: per Instructions/Follow-up section . Instructions / Follow-Up Instructions / Follow-Up ACTIVITY RECOMMENDATIONS: SELF CARE INSTRUCTIONS AFTER THORACIC/LUMBAR FUSIONS 1. You may walk to your tolerance. It is good exercise for your legs and back. Expect some back and intermittent leg aches and pains. 2. You may perform "counter-top" level activities (make a sandwich, jn with a project, etc.). 3. No bending or lifting of more than 10 pounds or back twisting of any nature (roll like a log when turning in bed). 4. You may ride in a car for 20-30 minutes at a time. No driving until after your first visit with your doctor. 5. Frequent changes of position and restricting sitting to 30 minutes at a time will help limit the amount of back spasms and stiffness you may experience. 6. You may discontinue the use of ambulatory aids (cane, crutches, etc.) once your strength and confidence allow. 7. You may bellstand attendant the shower and let water strike your incision when you arrive home at least once daily. Do not take a tub bath, sit in a hot tub or go into a swimming pool until after your first recheck in the office. SPECIAL CARE INSTRUCTIONS: VERY IMPORTANT TO READ AND REVIEW A. Your surgical incision has been closed with a cosmetic suture under the skin that will dissolve in about 6 weeks. In 14 days, you can use a pair of clean scissors and cut the suture that is left outside of the skin at the ends of your incision. 1. The small skin tapes can be removed 7 days after surgery if they have not fallen off by that point. 2. You may keep the wound open to air as much as possible to promote healing after post-op day number 5 unless told otherwise by your doctor. 3. If you think the wound looks like it is becoming infected (redness or worsening drainage) and/or you are experiencing fever, chill or worsening back pain and muscle spasms, contact the office so that we may evaluate you as soon as possible. B. Complications are uncommon, but please contact us if you have any signs or symptoms of: 1. wound infection (fever higher than 102.5 degrees F, redness, separation of wound, drainage, or increasing pain from the incision) 2. blood clots in legs (pain, swelling, redness and warmth in legs) 3. urinary tract infection (fever higher than 102.5 degrees F, burning upon urination or increased frequency of urination) 4. nerve problems (inability to walk on your toes or heels, numbness, loss of bowel or bladder control) 5. any other symptoms that concern you C. Please call the office at if you have any concerns or questions about your operation or recovery. D. No smoking! Smoking drastically decreases the chance of a solid fusion. E. Do not take any anti-inflammatory medications (Indocin, Advil, Motrin, Aspirin, Naprosyn, etc.) as these may inhibit the chance of a solid fusion. Tylenol is okay to take for pain. MANAGING PAIN AFTER SPINAL SURGERY 1. Narcotic medication is intended for short-term use and will be provided for surgical pain. Surgical pain usually lasts for a period of 4-6 weeks. Narcotic medication includes Percocet, Vicodin, Darvocet, Tylenol #3 or Lortab. 2. Longer-term pain is more appropriately treated with non-narcotic medication such as Tylenol ES. 3. Muscle spasm is not appropriately treated with narcotics. Muscle relaxers such as Soma, Flexeril or Skelaxin can be used along with Tylenol ES. 4. Remember that we all live with some "aches and pains". This is not unusual or uncommon after an injury or as we get older. a. Back pain is expected and may include muscle spasms for 4 to 6 weeks after surgery. The pain should gradually improve. If the pain worsens for no apparent reason, please contact the office. b. Intermittent leg pain may also be experienced and should not be concerned about unless it worsens for no apparent reason. If so, please contact the office. 5. We will provide appropriate medication within the normal guidelines of their prescribed use. We will also be very cautious and aware of potential abuse and extended duration of patients' medication needs. a. Pain medications are for your comfort and to assist with sleep and rest so that the tissue can heal. They are not provided in order to return to normal activity and should not be used through the day. To do so or worsening pain at night can result from ongoing tissue damage and development of tolerance to the prescribed medicine. 6. Please allow 2-3 days to process refills. Prescriptions will not be mailed but must be picked up at the office. FOLLOW UP VISIT: Keep your scheduled follow-up appointment. Any questions, please call the office at . Current Hospital Diet Patient's current hospital diet: Regular Diet Discharge Diet Recommended Diet: Regular Diet Procedures Procedures Performed: #1 lumbar decompression medial facetectomy foraminotomies L3 4 L4 5 L5-S1. #2 posterior spinal fusion L4 5 L5-S1. #3 placement posterior segmental instrumentation L4 5 L5-S1. #4 interbody fusion L4 5 L5-S1. #5 placement peek cage 12 x 22 mm at L4 5 and 11 x 26 mm at L5-S1. #6 placement of locally harvested morcellized autograft in the posterior lateral gutters. #7 placement infuse collagen sponge commode Master graft the posterior gutters and ostial amp in the interbody space. Pending Studies Studies pending at discharge: no Medical Emergencies . Who to Call and When: Medical Emergencies: If at any time you feel your situation is an emergency, please call 911 immediately. . Non-Emergent Contact Non-Emergency issues call your: Primary Care Provider . "Provider Documentation" section prepared by Epi Estes. . VTE Core Measure Inpt VTE Proph given/why not?: Janet Meehan, SCD's
[2017-04-07 10:45] VITALS: BP 173/79; PULSE 86; O2SAT 98
--- NOTE | 2017-04-07 13:55 | Progress Note ---
Subjective Date of Service: Apr 07, 2017. Problem List Medical Problems: (1) Ear pain, right Status: Acute (2) TMJ dysfunction Status: Acute Objective Vital Signs Date Time Temp Pulse Resp B/P (MAP) Pulse Ox O2 Delivery O2 Flow Rate FiO2 04/07/17 10:45 86 98 04/07/17 07:54 Room Air 04/07/17 06:47 37.3 78 16 155/73 (100) 93 Room Air 04/07/17 03:17 37.3 81 18 158/81 (106) 95 Room Air 04/06/17 23:30 Room Air 04/06/17 22:45 37.1 67 18 161/82 (108) 94 Room Air 04/06/17 20:30 94 Room Air 04/06/17 18:50 36.6 68 20 160/74 (102) 98 Nasal Cannula 4.0 04/06/17 17:47 36.6 64 18 159/86 (110) 98 Nasal Cannula 4.0 04/06/17 16:47 35.6 63 18 151/76 (101) 99 Nasal Cannula 4.0 04/06/17 16:15 36.1 66 18 150/78 (102) 97 Nasal Cannula 4.0 04/06/17 15:45 Nasal Cannula 04/06/17 15:45 Nasal Cannula 04/06/17 15:45 36.5 70 18 138/78 (98) 96 Nasal Cannula 4.0 04/06/17 15:20 73 17 149/72 96 Nasal Cannula 4 04/06/17 15:10 36.8 72 16 135/72 96 Nasal Cannula 4 04/06/17 15:00 66 16 135/75 97 Nasal Cannula 4 04/06/17 14:50 70 18 140/75 95 Nasal Cannula 4 04/06/17 14:40 73 24 160/83 96 Nasal Cannula 4 04/06/17 14:30 75 25 161/81 96 Nasal Cannula 4 04/06/17 14:20 66 25 173/86 97 Oxymask 10 04/06/17 14:10 67 25 173/92 98 Oxymask 10 04/06/17 14:00 66 22 183/93 96 Oxymask 10 Laboratory Results Last 24 Hours Test 04/06/17 14:19 04/07/17 06:59 Hemoglobin 10.2 g/dL 9.9 g/dL Hematocrit 31.9 % 30.7 % White Blood Count 21.14 K/uL Red Blood Count 3.34 M/uL Mean Corpuscular Volume 91.9 fL Mean Corpuscular Hemoglobin 29.6 pg Mean Corpuscular Hemoglobin Concent 32.2 g/dl Platelet Count 242 K/uL Mean Platelet Volume 10.7 fL Neutrophils (%) (Auto) 91.6 % Lymphocytes (%) (Auto) 3.8 % Monocytes (%) (Auto) 4.2 % Eosinophils (%) (Auto) 0.0 % Basophils (%) (Auto) 0.0 % Neutrophils # (Auto) 19.35 K/uL Lymphocytes # (Auto) 0.81 K/uL Monocytes # (Auto) 0.89 K/uL Eosinophils # (Auto) 0.00 K/uL Basophils # (Auto) 0.00 K/uL RDW Standard Deviation 58.7 fL RDW Coefficient of Variation 17.6 % Immature Granulocyte % (Auto) 0.4 % Immature Granulocyte # (Auto) 0.09 K/uL Sodium Level 137 mmol/L Potassium Level 4.5 mmol/L Chloride Level 101 mmol/L Carbon Dioxide Level 26 mmol/L Anion Gap 10.0 mmol/L Blood Urea Nitrogen 22 mg/dl Creatinine 1.75 mg/dl Est Creatinine Clear Calc Drug Dose 40.8 ml/min Estimated GFR () 33.6 Estimated GFR (Non- 29.0 BUN/Creatinine Ratio 12.5 Random Glucose 184 mg/dl Calcium Level 8.6 mg/dl Hepatitis C Antibody Screen NEG Assessment and Plan Ms. Vergara is a 71 year old woman here for decompression and fusion of her lumbar spine with Dr. Ballard. 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 Post op decompression 04/06 - monitor for blood loss, asymptomatic - noted leukocytosis, likely from postop in addition to prednisone - bowel regimen per primary team - pain control per primary team Psoriasis/RA - continue prednisone - hold methotrexate for now in the immediate post op period - continue triamcinolone and calcipotrien ointments, eucerin cream Hypertension - continue diltiazem and spironolactone, elevated likely from pain Thyroidectomy - continue levothyroxine Seasonal allergies - continue cetirizine GERD - continue po protonix Gastroparesis - continue naresh WILL SIGN OFF AT THIS TIME
--- NOTE | 2017-04-07 15:05 | Progress Note ---
Progress Note Date of Service Apr 07, 2017. Progress Note Patient's back pain is controlled leg symptoms improved. On exam she sitting up in bed alert oriented and comfortable. His good strength testing. Assessment status post lumbar depression fusion replant this time will continue physical therapy monitor her ROXANE output anticipate home the next day or so.
[2017-04-07 15:42] VITALS: BP 130/72; PULSE 64; TEMP 37; O2SAT 95
[2017-04-07] MEDS: DOCUSATE SODIUM/SENNA 50/8.6MG TAB PO SCH (22:13)
[2017-04-07] MEDS: ASPIRIN 81 MG ECTAB PO SCH (22:13)
[2017-04-07] MEDS: TRIAMCINOLONE ACET 0.025% CR 15 GM TUBE EXT SCH (22:14)
[2017-04-07] MEDS: CALCIPOTRIENE EXT SCH (22:14)
[2017-04-07 23:05] VITALS: BP 159/80; PULSE 80; TEMP 36.8; O2SAT 93
[2017-04-08] MEDS: OXYCODONE HCL IR 5 MG TAB (IMMEDIATE RELEASE) PO PRN ×4 (03:39→21:09)
[2017-04-08] MEDS: LEVOTHYROXINE 88 MCG TAB PO SCH (05:01)
[2017-04-08] MEDS: POLYETHYLENE (MIRALAX) 17 GM PACK PO SCH ×3 (06:07→18:02)
[2017-04-08 07:30] VITALS: BP 156/79; PULSE 76; TEMP 36.9; O2SAT 97
[2017-04-08] MEDS: DILTIAZEM HCL 120 MG EXT REL CAP PO SCH (08:54)
[2017-04-08] MEDS: PANTOprazole SOD 40 MG TAB PO SCH (08:54)
[2017-04-08] MEDS: DICYCLOMINE HCL 20 MG TAB PO SCH ×3 (08:54→21:10)
[2017-04-08] MEDS: MAGNESIUM OXIDE 400 MG TAB PO SCH ×2 (09:13→21:10)
[2017-04-08] MEDS: POTASSIUM CHLORIDE 20 MEQ TABCR PO SCH ×2 (09:13→21:10)
[2017-04-08] MEDS: CETIRIZINE HCL 10 MG TAB PO SCH ×2 (09:13→21:10)
[2017-04-08] MEDS: LORAZEPAM 0.5 MG TAB PO PRN ×2 (10:19→21:58)
--- NOTE | 2017-04-08 13:47 | Progress Note ---
Progress Note Date of Service Apr 08, 2017. Progress Note Patient's back pain is controlled leg pain improved. She's currently in a chair at bedside as good strength testing. She is trying physical therapy is their recommendation that she be considered for rehabilitation. Hopefully transfer to rehabilitation tomorrow.
[2017-04-08 15:20] VITALS: BP 147/69; PULSE 66; TEMP 36.6; O2SAT 98
[2017-04-08] MEDS: ASPIRIN 81 MG ECTAB PO SCH (21:10)
[2017-04-08] MEDS: CALCIPOTRIENE EXT SCH (21:10)
[2017-04-08] MEDS: DOCUSATE SODIUM/SENNA 50/8.6MG TAB PO SCH (21:10)
[2017-04-08] MEDS: TRIAMCINOLONE ACET 0.025% CR 15 GM TUBE EXT SCH (21:11)
[2017-04-08 22:50] VITALS: BP 162/78; PULSE 66; TEMP 36.9; O2SAT 98
[2017-04-09] MEDS: OXYCODONE HCL IR 5 MG TAB (IMMEDIATE RELEASE) PO PRN ×2 (01:28→08:18)
[2017-04-09] MEDS: POLYETHYLENE (MIRALAX) 17 GM PACK PO SCH ×3 (05:32→12:00)
[2017-04-09] MEDS: LEVOTHYROXINE 88 MCG TAB PO SCH (05:32)
[2017-04-09 07:10] VITALS: BP 157/81; PULSE 68; TEMP 37; O2SAT 98
[2017-04-09] MEDS: DICYCLOMINE HCL 20 MG TAB PO SCH (08:18)
[2017-04-09] MEDS: PANTOprazole SOD 40 MG TAB PO SCH (08:19)
[2017-04-09] MEDS: CETIRIZINE HCL 10 MG TAB PO SCH (08:19)
[2017-04-09] MEDS: MAGNESIUM OXIDE 400 MG TAB PO SCH (08:19)
[2017-04-09] MEDS: POTASSIUM CHLORIDE 20 MEQ TABCR PO SCH (08:20)
[2017-04-09] MEDS: DILTIAZEM HCL 120 MG EXT REL CAP PO SCH (08:20)
--- NOTE | 2017-04-09 12:23 | Discharge Summary ---
Orthopedic Discharge Summary Admission Date/Reason Apr 06, 2017 at 10:38 Spinal Stenosis. Discharge Date/Disposition Apr 09, 2017 Rehab Diagnosis Principal Diagnosis: Lumbar spinal stenosis Admission Physical Exam As per Admitting History & Physical. Hospital Course Patient underwent lumbar decompression fusion tolerated this well and taken to the orthopedic floor postoperatively. Postoperative day #1 she was up and amatory progressed posterior day #2 posterior 3 she was discharged to rehabilitation facility. Discharge orders and instructions found the chart for further review. Discharge Instructions Please refer to the electronic Patient Visit Report (Discharge Instructions) for additional information.
[2017-04-09 13:45] VITALS: BP 157/81; PULSE 68; TEMP 37; O2SAT 98
== END 2017-04-09 14:11 | DRG 455 ==
LOC: C.ACU 09:10 → C.3E 10:38 → ENRESERV 15:11
PROVIDERS: ADMIT Orthopaedic Surgery Orthopaedic Surgery of the Spine; ATTEND Orthopaedic Surgery Orthopaedic Surgery of the Spine
PROC: 0SG30AJ Fusion of Lumbosacral Joint with Interbody Fusion Device, Posterior Approach, Anterior Column, Open Approach (ICD-10-PCS; principal; 2017-04-06 11:20)
PROC: 0SG10J1 Fusion of 2 or more Lumbar Vertebral Joints with Synthetic Substitute, Posterior Approach, Posterior Column, Open Approach (ICD-10-PCS; principal; 2017-04-06 11:20)
DX: M48.061 Spinal stenosis, lumbar region without neurogenic claudication (principal); N18.3 Chronic kidney disease, stage 3 (moderate); I12.9 Hypertensive chronic kidney disease with stage 1 through stage 4 chronic kidney disease, or unspecified chronic kidney disease; E11.9 Type 2 diabetes mellitus without complications; K58.9 Irritable bowel syndrome, unspecified; K21.0 Gastro-esophageal reflux disease with esophagitis; Z79.82 Long term (current) use of aspirin

== ENCOUNTER → 2017-05-08 | Outpatient (CLI) | payer BC ==
[~2017-05-08] MED LIST changes: -CEFAZOLIN 2000MG IV PUSH 10 ML IV SCH; -FOLI1TAB7 PO; +FOLI1TAB8 PO; -LACTATED RINGER'S 1000ML 1,000 ML IV SCH; +MULT-506 PO; +RXC5 PO; +TRMO2580 TOP
[2017-05-08 09:37] LABS: HEMATOCRIT 35.1 % (37-47); MEAN CELL VOLUME 91.2 fL (80-100); MEAN CORPUSCULAR HEMOGLOBIN 28.8 pg (25-34); MEAN CORPUSCULAR HGB CONC 31.6 g/dl (32-36); MEAN PLATELET VOLUME 10.9 fL (7.4-10.4); PLATELET COUNT 447 K/uL (130-400); RED BLOOD COUNT 3.85 M/uL (4.2-5.4); WHITE BLOOD COUNT 7.77 K/uL (4.8-10.8)
[2017-05-08 10:13] LABS: BLOOD UREA NITROGEN 14 mg/dl (7-18); BUN/CREATININE RATIO 8.6 (10-20); CARBON DIOXIDE 27 mmol/L (21-32); CHLORIDE 102 mmol/L (98-107); CREATININE 1.65 mg/dl (0.60-1.20); GLUCOSE 97 mg/dl (70-99); POTASSIUM 3.9 mmol/L (3.5-5.1); SODIUM 134 mmol/L (136-145)
[2017-05-08 10:15] LABS: PHOSPHORUS 2.5 mg/dl (2.5-4.9)
[2017-05-08 10:20] LABS: URINE APPEARANCE CLEAR (CLEAR); URINE BILIRUBIN NEG (NEG); URINE COLOR YELLOW; URINE EPITHELIAL CELL AUTO >30 /lpf (0-5); URINE NITRITE NEG (NEG); URINE SPECIFIC GRAVITY 1.015 (1.000-1.030); UROBILINOGEN NEG (NEG)
[2017-05-08 10:30] LABS: URINE PROTIEN/CREAT RATIO 0.1 (0-0.2)
[2017-05-08 10:37] LABS: MANUAL MICROSCOPIC REQUIRED? NO; REVIEW REQ? NO
== END | disposition home or self-care (01) ==
LOC: C.LAB1850 08:44
PROVIDERS: ATTEND Internal Medicine Nephrology
DX: I12.9 Hypertensive chronic kidney disease with stage 1 through stage 4 chronic kidney disease, or unspecified chronic kidney disease (principal); E55.9 Vitamin D deficiency, unspecified; N18.3 Chronic kidney disease, stage 3 (moderate); D64.9 Anemia, unspecified; R60.9 Edema, unspecified

== ENCOUNTER 2017-06-03 11:10 | Observation (INO) | payer BC, OTHER ==
[~2017-06-03] VITALS: Ht 180.3 cm; Wt 101.5 kg
[2017-06-03] MEDS ORDERED: ALUMINUM/MAGNESIUM SUSP 30 ML UDC PO STA (11:40)
--- NOTE | 2017-06-03 11:44 | EMERGENCY ROOM VISIT NOTE ---
History Report prepared by Jamie: Hasmukh Sousa Under the Supervision of: Dr. Ky Cordero D.O. First contact with patient: 11:24 Chief Complaint: CHEST PAIN Stated Complaint: CHEST PAIN,ARM PAIN History of Present Illness The patient is a 72 year old female who presents to the Emergency Room with complaints of worsening episodes of chest pain that started 3 weeks ago. She states that she had back surgery a month ago, and then went to rehab, and is now home. The patient says that she has been taking an anti-acid medication every morning. She states that she has been having chest pain episodes ever since the rehab, and the episodes have slowly been worsening. She notes that it feels like something is sitting on her chest, and she has associated back pain and shooting pain to her left shoulder and arm. The patient says that this last episode lasted all night and kept her up. She states that she talked to Dr. Campbell prior to arrival, and was given a medication which did not help. She was also recommended to come here. The patient denies any shortness of breath, abdominal pain, or leg swelling or leg pain. She notes a history of 2 cardiac catheterizations, but no history of heart attacks. She took 1 Nitro this morning without relief. Source of History: patient Onset: 3 weeks ago Position: chest Quality: other (pain) Timing: worsening, other (episodes) Associated Symptoms: + back pain (and left shoulder and arm pain), No SOB, No abdominal pain Note: Denies leg swelling or leg pain. Review of Systems See HPI for pertinent positives & negatives. A total of 10 systems reviewed and were otherwise negative. 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 (11) Hypertension Nos (12) Irritable Bowel Syndrome (13) Lumbar Disc Displacement (14) Lumbar stenosis with neurogenic claudication (15) Osteoarthritis, knee (16) Reflux Esophagitis (17) Rheumatoid Arthritis Surgical Problems: (1) H/O thyroidectomy Family History Cancer FH: heart disease Hypertension Social History Smoking Status: Never Smoker Alcohol Use: none Drug Use: none Marital Status: Housing Status: lives with significant other Occupation Status: retired Current/Historical Medications Scheduled Alprazolam (Xanax), 0.5 MG PO BID Apremilast (Otezla), 30 MG PO QPM Aspirin (Aspirin 81), 1 TAB PO HS Calcipotriene (Calcipotriene), 1 APPLN EXT HS Cetirizine (Zyrtec), 0.5 TAB PO BID Cholecalciferol (Vitamin D3), 1 CAP PO QAM Clobetasol Propionate (Clobetasol Propionate), 1 APPLN TOP HS Dicyclomine Hcl (Dicyclomine Hcl), 1 TAB PO TID Diltiazem Hcl Ext Rel (Tiazac), 240 MG PO QAM Folic Acid (Folvite), 4 MG PO QPM Levothyroxine Sodium (Levothyroxine Sodium), 88 MCG PO QAM Magnesium Oxide (Mg Supplement (Magnesium), 1 TAB PO BID Methotrexate (Methotrexate), 4 TABS PO THURSDAY Multivitamin (Multivitamin), 1 TAB PO DAILY [place]-3 Fatty Acids (Fish Oil), 1 CAP PO BID Oyster Shell (Calcium), 1 TAB PO BID Pantoprazole (Protonix), 40 MG PO QAM Potassium Ext Rel (Klor-Con), 20 MEQ PO BID Prednisone (Prednisone), 5 MG PO QPM Spironolactone (Spironolactone), 25 MG PO QAM Sucralfate (Carafate), 10 ML PO QID Tacrolimus (Topical) (Tacrolimus), 1 APPLN EXT BID Scheduled PRN Azelastine Hcl (Astelin Nasal [place]), 1-2 SPRAYS NA BID PRN for Nasal Congestion Benzonatate (Tessalon Perles), 100 MG PO BID PRN for Cough Ipratropium-Albuterol (Combivent Respimat), 1 PUFFS INH BID PRN for Shortness of Breath Nitroglycerin (Nitroglycerin Lingual), 1 SPRAY PO UD PRN for STOMACH PAIN Allergies Coded Allergies: Codeine (Unverified Allergy, Intermediate, THROAT SWELLING, 04/06/17) 04/06/17: pt reported codeine = nausea to dr Lichty (Anes) Diclofenac (Verified Allergy, Intermediate, CREATINE ELEVATION, 04/06/17) Isopropyl Alcohol (Verified Allergy, Intermediate, CREATINE ELEVATION, ) Propylene Glycol (Verified Allergy, Intermediate, CREATINE ELEVATION, ) Iodinated Diagnostic Agents (Verified Allergy, Unknown, RASH, 04/06/17) Sulfa Antibiotics (Verified Allergy, Unknown, RASH TO SULFA DRUGS, ) Tetracycline (Verified Allergy, Unknown, RASH, 04/06/17) Physical Exam Vital Signs Date Time Temp Pulse Resp B/P (MAP) Pulse Ox O2 Delivery O2 Flow Rate FiO2 06/03/17 14:41 60 16 194/107 97 Room Air 06/03/17 13:51 67 16 193/111 100 Room Air 06/03/17 12:08 36.4 66 18 172/103 99 Room Air 06/03/17 12:03 75 06/03/17 11:13 36.4 86 18 175/103 98 Room Air Physical Exam GENERAL: Patient is awake, alert, and in no acute distress. Patient is resting comfortably and showing no signs of anxiety EYES: The conjunctivae are clear. The pupils are round and reactive. EARS, NOSE, MOUTH AND THROAT: The nose is without any evidence of any deformity. Mucous membranes are moist tongue is midline NECK: The neck is nontender and supple. RESPIRATORY: Normal respiratory effort is noted there is no evidence of wheezing rhonchi or rales CARDIOVASCULAR: Regular rate and rhythm noted there no murmurs rubs or gallops normal S1 normal S2 GASTROINTESTINAL: The abdomen is soft. Bowel sounds are present in all quadrants. Abdomen is nontender MUSCULOSKELETAL/EXTREMITIES: There is no evidence of gross deformity full range of motion is noted in the hips and shoulders. No calf tenderness elicited. SKIN: There is no obvious evidence of any rash. There are no petechiae, pallor or cyanosis noted. NEUROLOGIC: Patient is awake alert and oriented x3. Medical Decision & Procedures ER Provider Diagnostic Interpretation: X-ray results as stated below per interpretation by me and the radiologist. CHEST ONE VIEW PORTABLE CLINICAL HISTORY: ABDOMINAL PAIN/GI pain COMPARISON STUDY: 06/23/2016 FINDINGS: Mild stable cardiomegaly. Diaphragms are smooth. Lungs are clear. IMPRESSION: Mild stable cardiomegaly. Otherwise negative study. The above report was generated using voice recognition software. It may contain grammatical, syntax or spelling errors. Electronically signed by: Jose Tripp M.D. 06/03/2017 11:56 AM Dictated Date/Time: 06/03/2017 11:56 AM Laboratory Results 06/03/17 11:55 Red Blood Count 3.87, Mean Corpuscular Volume 90.2, Mean Corpuscular Hemoglobin 28.7, Mean Corpuscular Hemoglobin Concent 31.8, Mean Platelet Volume 10.1, Neutrophils (%) (Auto) 64.2, Lymphocytes (%) (Auto) 26.8, Monocytes (%) (Auto) 6.5, Eosinophils (%) (Auto) 1.8, Basophils (%) (Auto) 0.5, Neutrophils # (Auto) 2.78, Lymphocytes # (Auto) 1.16, Monocytes # (Auto) 0.28, Eosinophils # (Auto) 0.08, Basophils # (Auto) 0.02 06/03/17 11:55 Test 06/03/17 11:55 White Blood Count 4.33 K/uL (4.8-10.8) Red Blood Count 3.87 M/uL (4.2-5.4) Hemoglobin 11.1 g/dL (12.0-16.0) Hematocrit 34.9 % (37-47) Mean Corpuscular Volume 90.2 fL (80-100) Mean Corpuscular Hemoglobin 28.7 pg (25-34) Mean Corpuscular Hemoglobin Concent 31.8 g/dl (32-36) Platelet Count 352 K/uL (130-400) Mean Platelet Volume 10.1 fL (7.4-10.4) Neutrophils (%) (Auto) 64.2 % Lymphocytes (%) (Auto) 26.8 % Monocytes (%) (Auto) 6.5 % Eosinophils (%) (Auto) 1.8 % Basophils (%) (Auto) 0.5 % Neutrophils # (Auto) 2.78 K/uL (1.4-6.5) Lymphocytes # (Auto) 1.16 K/uL (1.2-3.4) Monocytes # (Auto) 0.28 K/uL (0.11-0.59) Eosinophils # (Auto) 0.08 K/uL (0-0.5) Basophils # (Auto) 0.02 K/uL (0-0.2) RDW Standard Deviation 57.9 fL (36.4-46.3) RDW Coefficient of Variation 18.1 % (11.5-14.5) Immature Granulocyte % (Auto) 0.2 % Immature Granulocyte # (Auto) 0.01 K/uL (0.00-0.02) Prothrombin Time 10.4 SECONDS (9.0-12.0) Prothromb Time International Ratio 1.0 (0.9-1.1) Activated Partial Thromboplast Time 24.1 SECONDS (21.0-31.0) Partial Thromboplastin Ratio 0.9 Anion Gap 8.0 mmol/L (3-11) Est Creatinine Clear Calc Drug Dose 43.5 ml/min Estimated GFR () 37.8 Estimated GFR (Non- 32.6 BUN/Creatinine Ratio 7.9 (10-20) Calcium Level 9.5 mg/dl (8.5-10.1) Total Bilirubin 0.4 mg/dl (0.2-1) Direct Bilirubin < 0.1 mg/dl (0-0.2) Aspartate Amino Transf (AST/SGOT) 29 U/L (15-37) Alanine Aminotransferase (ALT/SGPT) 44 U/L (12-78) Alkaline Phosphatase 105 U/L (45-117) Total Creatine Kinase 72 U/L (26-192) Creatine Kinase MB < 0.5 ng/ml (0.5-3.6) Creatine Kinase MB Ratio (0-3.0) Troponin I < 0.015 ng/ml (0-0.045) Total Protein 7.7 gm/dl (6.4-8.2) Albumin 3.4 gm/dl (3.4-5.0) Amylase Level 59 U/L (25-115) Lipase 262 U/L (73-393) Laboratory results per my review. Medications Administered Medications (Trade) Dose Ordered Sig/Carrie Route Start Time Stop Time Status Last Admin Dose Admin Al Hydroxide/Mg Hydroxide (Maalox Susp) 30 ml NOW STAT PO 06/03/17 11:40 06/03/17 11:41 DC 06/03/17 12:08 30 ML Oxycodone HCl (Roxicodone Immediate Rel Tab) 10 mg NOW STAT PO 06/03/17 12:40 06/03/17 12:42 DC 06/03/17 12:53 10 MG ECG Indication: chest pain Rate (beats per minute): 73 Rhythm: normal sinus Findings: no ectopy, other (no acute ST segment abnormalities, LVH noted by voltage criteria) Change: no significant change (from 03/17/17) ED Course 1138: The patient was evaluated in room B6. A complete history and physical examination were performed. 1140: Ordered Maalox Susp 30 ml PO. 1240: Ordered Roxicodone Immediate Rel Tab 10 mg PO. 1415: I discussed the patient's case with Nusrat FONTENOT hospitalist team. The patient will be evaluated for further management. 1417: Upon reevaluation, the patient is resting. I discussed results and treatment plan with her. She verbalizes agreement and understanding. The patient will be evaluated for further management and care. Medical Decision Differential diagnosis: Etiologies such as cardiac ischemia, aortic dissection, pulmonary embolism, pneumonia, pneumothorax, musculoskeletal, infections, pericarditis, myocarditis , esophageal rupture, gastrointestinal, as well as others were entertained. Nursing notes reviewed. The patient is a 72-year-old female who presented to the emergency department for an evaluation of chest discomfort. The patient has a long history of GI discomfort and initially thought this could be consistent with her previous history however she's been taking nitroglycerin with some relief of this pain. She started having pain going to her left shoulder. She call her transferrer and was instructed to come to the emergency department. The patient was not found have any acute changes on her EKG and her initial cardiac biomarkers were negative. Because the patient's risk factors and comorbidities I discussed his case with the on-call [facility] hospitalist group. They have agreed to evaluate the patient in the emergency apartment for further management and disposition. I also discussed her case with her primary transferrer. He agrees at this could be GI discomfort in nature but given the patient's presentation at this time as well as her response to nitroglycerin he felt that it would be more prudent to rule out a cardiac cause for her discomfort. I do agree with this plan. Medication Reconcilliation Current Medication List: was personally reviewed by me Blood Pressure Screening Patient's blood pressure: Elevated blood pressure Referred to hospitalist. Consults Time Called: 141 Consulting Physician: Nusrat FONTENOT hospitalist team Returned Call: [phone] I discussed the patient's case with Nusrat FONTENOT hospitalist team. The patient will be evaluated for further management. Impression Primary Impression: Chest pain Scribe Attestation The scribe's documentation has been prepared under my direction and personally reviewed by me in its entirety. I confirm that the note above accurately reflects all work, treatment, procedures, and medical decision making performed by me. Departure Information Dispostion Being Evaluated By Hospitalist Referrals John Melendez M.D. (PCP) Patient Instructions My [facility] Problem Qualifiers Primary Impression: Chest pain Chest pain type: unspecified Qualified Codes: R07.9 - Chest pain, unspecified
--- NOTE | 2017-06-03 11:58 | DIAGNOSTIC IMAGING REPORT ---
CHEST ONE VIEW PORTABLE CLINICAL HISTORY: ABDOMINAL PAIN/GI pain COMPARISON STUDY: 06/23/2016 FINDINGS: Mild stable cardiomegaly. Diaphragms are smooth. Lungs are clear. IMPRESSION: Mild stable cardiomegaly. Otherwise negative study. The above report was generated using voice recognition software. It may contain grammatical, syntax or spelling errors. Electronically signed by: Jose Tripp M.D. 06/03/2017 11:56 AM Dictated Date/Time: 06/03/2017 11:56 AM
[2017-06-03 12:16] LABS: BASO % 0.5 %; BASO ABS # 0.02 K/uL (0-0.2); EOS % 1.8 %; EOS ABS # 0.08 K/uL (0-0.5); HEMATOCRIT 34.9 % (37-47); HEMOGLOBIN 11.1 g/dL (12.0-16.0); IG# 0.01 K/uL (0.00-0.02); LYMPH % 26.8 %; LYMPH ABS # 1.16 K/uL (1.2-3.4); MEAN CELL VOLUME 90.2 fL (80-100); MEAN CORPUSCULAR HEMOGLOBIN 28.7 pg (25-34); MEAN CORPUSCULAR HGB CONC 31.8 g/dl (32-36); MEAN PLATELET VOLUME 10.1 fL (7.4-10.4); MONO % 6.5 %; MONO ABS # 0.28 K/uL (0.11-0.59); NEUT % 64.2 %; NEUT ABS # 2.78 K/uL (1.4-6.5); PLATELET COUNT 352 K/uL (130-400); RED CELL DISTRIBUTION WIDTH CV 18.1 % (11.5-14.5); RED CELL DISTRIBUTION WIDTH SD 57.9 fL (36.4-46.3); WHITE BLOOD COUNT 4.33 K/uL (4.8-10.8)
[2017-06-03] MEDS ORDERED: CRFL PO (12:27)
[2017-06-03 12:29] LABS: PTT PATIENT 24.1 SECONDS (21.0-31.0)
[2017-06-03 12:30] LABS: ALBUMIN 3.4 gm/dl (3.4-5.0); ALT/SGPT 44 U/L (12-78); BLOOD UREA NITROGEN 13 mg/dl (7-18); CALCIUM 9.5 mg/dl (8.5-10.1); CARBON DIOXIDE 26 mmol/L (21-32); CREATININE 1.58 mg/dl (0.60-1.20); GLUCOSE 111 mg/dl (70-99); LIPASE 262 U/L (73-393); POTASSIUM 3.9 mmol/L (3.5-5.1); SODIUM 139 mmol/L (136-145)
[2017-06-03 12:36] LABS: ALKALINE PHOSPHATASE 105 U/L (45-117); AST/SGOT 29 U/L (15-37); CKMB < 0.5 ng/ml (0.5-3.6); TOTAL PROTEIN 7.7 gm/dl (6.4-8.2)
[2017-06-03] MEDS ORDERED: OXYCODONE HCL IR 5 MG TAB (IMMEDIATE RELEASE) PO STA (12:40)
[2017-06-03] MEDS ORDERED: CALC1CRE2 EXT (15:27)
[2017-06-03] MEDS ORDERED: [UNRECOGNIZED DRUG - CODE] EXT (15:27)
[2017-06-03] MEDS ORDERED: ONDANSETRON INJ 2 MG/ML 2 ML VIAL IV PRN (15:30)
[2017-06-03] MEDS ORDERED: POLYETHYLENE (MIRALAX) 17 GM PACK PO PRN (15:30)
[2017-06-03] MEDS ORDERED: MAGNESIUM HYDROXIDE SUSP 30 ML UDC PO PRN (15:30)
[2017-06-03] MEDS ORDERED: IPRATROPIUM BROMIDE/ALBUTEROL respimat INH INH PRN (15:30)
--- NOTE | 2017-06-03 15:48 | History and Physical ---
History & Physical Date & Time of Service: Jun 03, 2017 at 15:32 Chief Complaint: Chest Pain,Arm Pain Primary Care Physician: John Melendez M.D. History of Present Illness Source: patient, clinic records, hospital records This is a 72 y/o female with a history of HTN, CKD stage III, hypothyroidism, psoriatic arthritis, neuropathy, anemia of chronic disease, IBS and GERD who presented to the ED on 06/03 with chest pain. The patient states that she had a back surgery back in March, after which she was at rehab, although she is now back home. She first started developing chest pressure while at rehab, and this discomfort has gotten progressively worse over time. The pain had seemed to be GI related as the pain used to improve after belching, but last night the pain became much worse and the patient wasn't able to sleep. Last night the pain began to radiate to her left shoulder and down her left arm, which was the first time it had done that. She did have some temporary relief with nitro at home. The patient had recently been started on Carafate due to this same pain, but that has not helped. Currently the patient describes a pressure in the center of her chest and an intermittent 10/10 sharp pain in her left shoulder and back. The patient denies fevers, chills, sweats, palpitations, claudication , cough, wheezing, shortness of breath, nausea, vomiting, abdominal pain, dysuria, hematuria, urinary retention, paralysis, weakness, numbness and tingling. Past Medical/Surgical History Medical Problems: (1) Anemia Nos Status: Chronic (2) Cardiac Dysrhythmias Nec Status: Chronic (3) Cardiomegaly Status: Chronic (4) Chronic Kidney Disease, Stage Iii (Moderate) Status: Chronic (5) Chronic Sinusitis Nos Status: Chronic (6) Degenerative arthritis of knee, bilateral Status: Chronic (7) Diab Jyotsna Wo Compl, Type Ii Or Unspec Type, Not Uncntrld Status: Chronic (8) Disorders Of Thyroid Nec Status: Chronic (9) Diverticulosis Colon (W/O Ment Of Hemorrhage) Status: Chronic (10) Enlargement Lymph Nodes Status: Resolved (11) Hypertension Nos Status: Chronic (12) Irritable Bowel Syndrome Status: Chronic (13) Lumbar Disc Displacement Status: Chronic (14) Osteoarthritis, knee Status: Chronic (15) Reflux Esophagitis Status: Chronic (16) Rheumatoid Arthritis Status: Chronic Hypothyroidism Psoriatic arthritis Neuropahty IBS Surgical Problems: (1) H/O thyroidectomy Status: Resolved Family History Cancer (breast, cervical, lung, lymphoma) FH: heart disease Hypertension Social History Smoking Status: Former Smoker (remote, smoked as a teenager) Smokeless Tobacco Use: No Alcohol Use: occasionally Drug Use: none Marital Status: Housing status: lives with significant other Occupational Status: retired Immunizations History of Influenza Vaccine: Yes Influenza Vaccine Date: Mar 07, 2007 History of Tetanus Vaccine?: Yes History of Pneumococcal: Yes Pneumococcal Date: Jun 07, 2007 History of Hepatitis B Vaccine: Yes Multi-Drug Resistant Organisms History of MDRO: No Allergies Coded Allergies: Codeine (Unverified Allergy, Intermediate, THROAT SWELLING, 04/06/17) 04/06/17: pt reported codeine = nausea to dr Aguiar (Anes) Diclofenac (Verified Allergy, Intermediate, CREATINE ELEVATION, 04/06/17) Isopropyl Alcohol (Verified Allergy, Intermediate, CREATINE ELEVATION, ) Propylene Glycol (Verified Allergy, Intermediate, CREATINE ELEVATION, ) Iodinated Diagnostic Agents (Verified Allergy, Unknown, RASH, 04/06/17) Sulfa Antibiotics (Verified Allergy, Unknown, RASH TO SULFA DRUGS, ) Tetracycline (Verified Allergy, Unknown, RASH, 04/06/17) Home Medications Scheduled Alprazolam (Xanax), 0.5 MG PO BID Apremilast (Otezla), 30 MG PO QPM Aspirin (Aspirin 81), 1 TAB PO HS Calcipotriene (Calcipotriene), 1 APPLN EXT HS Cetirizine (Zyrtec), 0.5 TAB PO BID Cholecalciferol (Vitamin D3), 1 CAP PO QAM Clobetasol Propionate (Clobetasol Propionate), 1 APPLN TOP HS Dicyclomine Hcl (Dicyclomine Hcl), 1 TAB PO TID Diltiazem Hcl Ext Rel (Tiazac), 240 MG PO QAM Folic Acid (Folvite), 4 MG PO QPM Levothyroxine Sodium (Levothyroxine Sodium), 88 MCG PO QAM Magnesium Oxide (Mg Supplement (Magnesium), 1 TAB PO BID Methotrexate (Methotrexate), 4 TABS PO THURSDAY Multivitamin (Multivitamin), 1 TAB PO DAILY [place]-3 Fatty Acids (Fish Oil), 1 CAP PO BID Oyster Shell (Calcium), 1 TAB PO BID Pantoprazole (Protonix), 40 MG PO QAM Potassium Ext Rel (Klor-Con), 20 MEQ PO BID Prednisone (Prednisone), 5 MG PO QPM Spironolactone (Spironolactone), 25 MG PO QAM Sucralfate (Carafate), 10 ML PO QID Tacrolimus (Topical) (Tacrolimus), 1 APPLN EXT BID Scheduled PRN Azelastine Hcl (Astelin Nasal [place]), 1-2 SPRAYS NA BID PRN for Nasal Congestion Benzonatate (Tessalon Perles), 100 MG PO BID PRN for Cough Ipratropium-Albuterol (Combivent Respimat), 1 PUFFS INH BID PRN for Shortness of Breath Nitroglycerin (Nitroglycerin Lingual), 1 SPRAY PO UD PRN for STOMACH PAIN Review of Systems Constitutional: No fever, No chills, No sweats Eyes: No worsening of vision, No eye pain, No diplopia ENT: No hearing loss, No nasal symptoms, No trouble swallowing Respiratory: No cough, No wheezing, No shortness of breath Cardiovascular: +Chest pain radiating to left shoulder/arm. No claudication, No palpitations Abdomen: No pain, No nausea, No vomiting Musculoskeletal: No joint pain, No muscle pain, No swelling Genitourinary - Female: No dysuria, No urinary retention, No hematuria Neurologic: No paralysis, No weakness, No numbness/tingling Integumentary: No rash, No itch, No color change Physical Exam Vital Signs Date Time Temp Pulse Resp B/P (MAP) Pulse Ox O2 Delivery O2 Flow Rate FiO2 06/03/17 14:41 60 16 194/107 97 Room Air 06/03/17 13:51 67 16 193/111 100 Room Air 06/03/17 12:08 36.4 66 18 172/103 99 Room Air 06/03/17 12:03 75 06/03/17 11:13 36.4 86 18 175/103 98 Room Air General appearance: +Obese. Well-developed, well-nourished, no apparent distress Head: Normocephalic, atraumatic Eyes: Normal inspection, PERRL, EOMI ENT: Normal ENT inspection, hearing grossly normal, pharynx normal Neck: Supple, no JVD, trachea midline Respiratory/Chest: Lungs clear to auscultation, normal breath sounds, no respiratory distress Cardiovascular: Regular rate & rhythm, no gallop, no murmur Abdomen/GI: Normal bowel sounds, non-tender, soft Extremities/Musculoskeletal: Normal inspection, no calf tenderness, no pedal edema Neurological/Psych: Alert, normal mood/affect, oriented x 3 Skin: Normal color, warm/dry, no rash Diagnostics Laboratory Results Results Past 24 Hours Test 06/03/17 11:55 Range/Units White Blood Count 4.33 4.8-10.8 K/uL Red Blood Count 3.87 4.2-5.4 M/uL Hemoglobin 11.1 12.0-16.0 g/dL Hematocrit 34.9 37-47 % Mean Corpuscular Volume 90.2 80-100 fL Mean Corpuscular Hemoglobin 28.7 25-34 pg Mean Corpuscular Hemoglobin Concent 31.8 32-36 g/dl Platelet Count 352 130-400 K/uL Mean Platelet Volume 10.1 7.4-10.4 fL Neutrophils (%) (Auto) 64.2 % Lymphocytes (%) (Auto) 26.8 % Monocytes (%) (Auto) 6.5 % Eosinophils (%) (Auto) 1.8 % Basophils (%) (Auto) 0.5 % Neutrophils # (Auto) 2.78 1.4-6.5 K/uL Lymphocytes # (Auto) 1.16 1.2-3.4 K/uL Monocytes # (Auto) 0.28 0.11-0.59 K/uL Eosinophils # (Auto) 0.08 0-0.5 K/uL Basophils # (Auto) 0.02 0-0.2 K/uL RDW Standard Deviation 57.9 36.4-46.3 fL RDW Coefficient of Variation 18.1 11.5-14.5 % Immature Granulocyte % (Auto) 0.2 % Immature Granulocyte # (Auto) 0.01 0.00-0.02 K/uL Prothrombin Time 10.4 9.0-12.0 SECONDS Prothromb Time International Ratio 1.0 0.9-1.1 Activated Partial Thromboplast Time 24.1 21.0-31.0 SECONDS Partial Thromboplastin Ratio 0.9 Sodium Level 139 136-145 mmol/L Potassium Level 3.9 3.5-5.1 mmol/L Chloride Level 105 98-107 mmol/L Carbon Dioxide Level 26 21-32 mmol/L Anion Gap 8.0 3-11 mmol/L Blood Urea Nitrogen 13 7-18 mg/dl Creatinine 1.58 0.60-1.20 mg/dl Est Creatinine Clear Calc Drug Dose 43.5 ml/min Estimated GFR () 37.8 Estimated GFR (Non- 32.6 BUN/Creatinine Ratio 7.9 10-20 Random Glucose 111 70-99 mg/dl Calcium Level 9.5 8.5-10.1 mg/dl Total Bilirubin 0.4 0.2-1 mg/dl Direct Bilirubin < 0.1 0-0.2 mg/dl Aspartate Amino Transf (AST/SGOT) 29 15-37 U/L Alanine Aminotransferase (ALT/SGPT) 44 12-78 U/L Alkaline Phosphatase 105 45-117 U/L Total Creatine Kinase 72 26-192 U/L Creatine Kinase MB < 0.5 0.5-3.6 ng/ml Creatine Kinase MB Ratio 0-3.0 Troponin I < 0.015 0-0.045 ng/ml Total Protein 7.7 6.4-8.2 gm/dl Albumin 3.4 3.4-5.0 gm/dl Amylase Level 59 25-115 U/L Lipase 262 73-393 U/L Diagnostic Radiology Reviewed the following studies and agree with interpretation as follows: CHEST ONE VIEW PORTABLE CLINICAL HISTORY: ABDOMINAL PAIN/GI pain COMPARISON STUDY: 06/23/2016 FINDINGS: Mild stable cardiomegaly. Diaphragms are smooth. Lungs are clear. IMPRESSION: Mild stable cardiomegaly. Otherwise negative study. EKG Reviewed EKG and agree with interpretation as follows: 73 bpm, NSR Impression Assessment and Plan 72 y/o female with a history of HTN, CKD stage III, hypothyroidism, psoriatic arthritis, neuropathy, anemia of chronic disease, IBS and GERD who presented to the ED on 06/03 with chest pain. Pt arrived hypertensive with BP up to 193/111, otherwise afebrile and VSS. CXR no acute disease. EKG no ischemic changes. First troponin negative. Pt did not have any relief of pain with Maalox. Chest pain, ACS r/o--seems more GI-related, however pt did develop new radiation of pain to left shoulder/arm last night -Admit to telemetry for observation -Trend cardiac enzymes q8h x 3. First set negative -Stress echo in am if negative -EKG q am and prn chest pain HTN--currently hypertensive -Continue diltiazem 240 mg PO qd, spironolactone 25 mg PO qd -Cover with hydralazine 10 mg IV q6h prn SBP >180. 1 dose now CKD stage III--stable -Creatinine at baseline Hypothyroidism -Continue Synthroid 88 mcg PO qd Psoriatic arthritis -Continue prednisone 5 mg PO qd, Otezla 30 mg PO qd, tacrolimus cream to hands BID, calcipotriene and clobetasol to hands at night -Pt takes methotrexate 10 mg PO on Mondays -Continue folic acid 4 mg PO qd Neuropathy -Continue Xanax 0.5 mg PO BID. Pt states this is for nerve pain, not anxiety IBS, GERD -Continue Bentyl 20 mg PO TID -Continue Carafate 1 gm QID and Protonix 40 mg PO qd DVT prophylaxis -Enoxaparin 40 mg SC q24h -JAQUELINE moctezuma and SCDs Code Status -Level III, F[facility] NO [facility] Resident Physician Supervision Note: I was present with the PA Pennie Galvez during the history and exam. I discussed the case with the PA and agree with the findings and plan as documented in the note. Any exceptions or clarifications are listed here: 72 y/o F Hx HTN, anemia, CKD III - presenting with intermittent central CP which radiated to her L arm. She currently denies SOB. N/V or diaphoresis. OE AAO x 3 S1,2 R CTAB NT, ND minimal edema P: Pt assigned to telemetry to r/o MN Both renal function and Hb are improved compared to baseline We would not effect a change in her medication presently She should have stress testing - in or outpt due to risk factors Documented By: Kris Escobar Level of Care Telemetry Resuscitation Status [facility] VTE Prophylaxis VTE Risk Assessment Done? Y/N: Yes Risk Level: Moderate Given or contraindicated: Enoxaparin (Lovenox)SQ, T.E.D. Stockings, SCD's
[2017-06-03] MEDS: SUCRALFATE 1 GM/10 ML UDC PO SCH ×2 (18:00→21:47)
[2017-06-03 18:22] VITALS: BP 151/83; TEMP 36.7; O2SAT 97
[2017-06-03 18:45] VITALS: BP 151/83; PULSE 60; TEMP 36.7; O2SAT 97; Ht 180.3 cm; Wt 101.5 kg
[2017-06-03] MEDS ORDERED: IV FLUIDS COMPLETED PRN (19:45)
[2017-06-03] MEDS ORDERED: PNEUMOCOCCAL POLYSACCHARIDES 25 MCG/0.5 ML VIAL/SYR IM. ONE (19:45)
[2017-06-03] MEDS ORDERED: PNEUMOCOCCAL ADMINISTRATION CHARGE ONE (19:45)
[2017-06-03 20:24] LABS: HEP C IGG 13 YRS+OLDER_RFLX NEG (NEG)
[2017-06-03 20:42] LABS: CKMB < 0.5 ng/ml (0.5-3.6)
[2017-06-03] MEDS ORDERED: ASPIRIN 81 MG ECTAB PO SCH (21:00)
[2017-06-03] MEDS ORDERED: ENOXAPARIN 40 MG/0.4 ML SYR SC SCH (21:00)
[2017-06-03] MEDS ORDERED: SUCRALFATE 1 GM/10 ML UDC PO SCH (21:00)
[2017-06-03] MEDS: ALPRAZOLAM 0.5 MG TAB PO SCH (21:39)
[2017-06-03] MEDS: ACETAMINOPHEN 325 MG TAB PO PRN (21:40)
[2017-06-03] MEDS: DICYCLOMINE HCL 20 MG TAB PO SCH (21:41)
[2017-06-03] MEDS: CETIRIZINE HCL 10 MG TAB PO SCH (21:42)
[2017-06-03] MEDS: MAGNESIUM OXIDE 400 MG TAB PO SCH (21:43)
[2017-06-03] MEDS: CALCIUM CARBONATE 1250MG TAB PO SCH (21:44)
[2017-06-03] MEDS: POTASSIUM CHLORIDE 20 MEQ TABCR PO SCH (21:45)
[2017-06-04] VITALS (7 sets, daily range): BP systolic 148–177; BP diastolic 78–93; PULSE 57–73; TEMP 36.6–37; O2SAT 96–98
[2017-06-04 04:04] LABS: HEMOGLOBIN 10.6 g/dL (12.0-16.0); MEAN CELL VOLUME 89.7 fL (80-100); MEAN CORPUSCULAR HEMOGLOBIN 28.8 pg (25-34); MEAN CORPUSCULAR HGB CONC 32.1 g/dl (32-36); PLATELET COUNT 323 K/uL (130-400); RED CELL DISTRIBUTION WIDTH SD 58.1 fL (36.4-46.3); WHITE BLOOD COUNT 4.03 K/uL (4.8-10.8)
[2017-06-04 04:26] LABS: BLOOD UREA NITROGEN 12 mg/dl (7-18); CALCIUM 9.3 mg/dl (8.5-10.1); CARBON DIOXIDE 28 mmol/L (21-32); CREATININE 1.71 mg/dl (0.60-1.20); GLUCOSE 143 mg/dl (70-99); POTASSIUM 4.3 mmol/L (3.5-5.1); SODIUM 137 mmol/L (136-145)
[2017-06-04 04:30] LABS: CKMB 0.6 ng/ml (0.5-3.6)
[2017-06-04] MEDS: ACETAMINOPHEN 325 MG TAB PO PRN ×3 (06:09→14:57)
[2017-06-04] MEDS ORDERED: LEVOTHYROXINE 88 MCG TAB PO SCH (06:30)
--- NOTE | 2017-06-04 08:49 | Hospitalist Progress Note ---
Hospitalist Progress Note Date of Service Jun 04, 2017. Objective Vital Signs Date Time Temp Pulse Resp B/P (MAP) Pulse Ox O2 Delivery O2 Flow Rate FiO2 06/04/17 07:55 37.0 65 18 172/93 (119) 97 06/04/17 06:00 73 18 148/84 (105) 98 Room Air 06/04/17 04:00 Room Air 06/04/17 03:50 36.6 69 16 177/83 (114) 96 Room Air 06/04/17 00:11 36.9 57 16 161/78 (105) 97 Room Air 06/04/17 00:00 Room Air 06/03/17 18:45 36.7 60 18 151/83 97 Room Air 06/03/17 18:22 36.7 18 151/83 (105) 97 Room Air 06/03/17 17:23 60 20 166/102 93 Room Air 06/03/17 14:41 60 16 194/107 97 Room Air 06/03/17 13:51 67 16 193/111 100 Room Air 06/03/17 12:08 36.4 66 18 172/103 99 Room Air 06/03/17 12:03 75 06/03/17 11:13 36.4 86 18 175/103 98 Room Air Laboratory Results Last 24 Hours Test 06/03/17 11:55 06/03/17 19:56 06/03/17 20:10 06/04/17 03:47 White Blood Count 4.33 K/uL 4.03 K/uL Red Blood Count 3.87 M/uL 3.68 M/uL Hemoglobin 11.1 g/dL 10.6 g/dL Hematocrit 34.9 % 33.0 % Mean Corpuscular Volume 90.2 fL 89.7 fL Mean Corpuscular Hemoglobin 28.7 pg 28.8 pg Mean Corpuscular Hemoglobin Concent 31.8 g/dl 32.1 g/dl Platelet Count 352 K/uL 323 K/uL Mean Platelet Volume 10.1 fL 10.0 fL Neutrophils (%) (Auto) 64.2 % Lymphocytes (%) (Auto) 26.8 % Monocytes (%) (Auto) 6.5 % Eosinophils (%) (Auto) 1.8 % Basophils (%) (Auto) 0.5 % Neutrophils # (Auto) 2.78 K/uL Lymphocytes # (Auto) 1.16 K/uL Monocytes # (Auto) 0.28 K/uL Eosinophils # (Auto) 0.08 K/uL Basophils # (Auto) 0.02 K/uL RDW Standard Deviation 57.9 fL 58.1 fL RDW Coefficient of Variation 18.1 % 18.0 % Immature Granulocyte % (Auto) 0.2 % Immature Granulocyte # (Auto) 0.01 K/uL Prothrombin Time 10.4 SECONDS Prothromb Time International Ratio 1.0 Activated Partial Thromboplast Time 24.1 SECONDS Partial Thromboplastin Ratio 0.9 Sodium Level 139 mmol/L 137 mmol/L Potassium Level 3.9 mmol/L 4.3 mmol/L Chloride Level 105 mmol/L 104 mmol/L Carbon Dioxide Level 26 mmol/L 28 mmol/L Anion Gap 8.0 mmol/L 5.0 mmol/L Blood Urea Nitrogen 13 mg/dl 12 mg/dl Creatinine 1.58 mg/dl 1.71 mg/dl Est Creatinine Clear Calc Drug Dose 43.5 ml/min 39.9 ml/min Estimated GFR () 37.8 34.3 Estimated GFR (Non- 32.6 29.6 BUN/Creatinine Ratio 7.9 6.9 Random Glucose 111 mg/dl 143 mg/dl Calcium Level 9.5 mg/dl 9.3 mg/dl Total Bilirubin 0.4 mg/dl Direct Bilirubin < 0.1 mg/dl Aspartate Amino Transf (AST/SGOT) 29 U/L Alanine Aminotransferase (ALT/SGPT) 44 U/L Alkaline Phosphatase 105 U/L Total Creatine Kinase 72 U/L 108 U/L 59 U/L Creatine Kinase MB < 0.5 ng/ml < 0.5 ng/ml 0.6 ng/ml Creatine Kinase MB Ratio 1.0 Troponin I < 0.015 ng/ml < 0.015 ng/ml < 0.015 ng/ml Total Protein 7.7 gm/dl Albumin 3.4 gm/dl Amylase Level 59 U/L Lipase 262 U/L Hepatitis C Antibody Screen NEG Hepatitis C Antibody NEG Urine Color YELLOW Urine Appearance CLEAR Urine pH 7.5 Urine Specific [place] 1.020 Urine Protein NEG Urine Glucose (UA) NEG Urine Ketones NEG Urine Occult Blood NEG Urine Nitrite NEG Urine Bilirubin NEG Urine Urobilinogen NEG Urine Leukocyte Esterase NEG Test 06/04/17 08:39 Assessment and Plan 72 y/o female with a history of HTN, CKD stage III, hypothyroidism, psoriatic arthritis, neuropathy, anemia of chronic disease, IBS and GERD who presented to the ED on 06/03 with chest pain. Pt arrived hypertensive with BP up to 193/111, otherwise afebrile and VSS. CXR no acute disease. EKG no ischemic changes. First troponin negative. Pt did not have any relief of pain with Maalox. Chest pain, ACS r/o--seems more GI-related, however pt did develop new radiation of pain to left shoulder/arm last night -Admit to telemetry for observation -Trend cardiac enzymes q8h x 3. First set negative -Stress echo in am if negative -EKG q am and prn chest pain HTN--currently hypertensive -Continue diltiazem 240 mg PO qd, spironolactone 25 mg PO qd -Cover with hydralazine 10 mg IV q6h prn SBP >180. 1 dose now CKD stage III--stable -Creatinine at baseline Hypothyroidism -Continue Synthroid 88 mcg PO qd Psoriatic arthritis -Continue prednisone 5 mg PO qd, Otezla 30 mg PO qd, tacrolimus cream to hands BID, calcipotriene and clobetasol to hands at night -Pt takes methotrexate 10 mg PO on Mondays -Continue folic acid 4 mg PO qd Neuropathy -Continue Xanax 0.5 mg PO BID. Pt states this is for nerve pain, not anxiety IBS, GERD -Continue Bentyl 20 mg PO TID -Continue Carafate 1 gm QID and Protonix 40 mg PO qd DVT prophylaxis -Enoxaparin 40 mg SC q24h -JAQUELINE Ibarra Code Status -Level III, FULL NO [facility]
[2017-06-04] MEDS ORDERED: MULTIVITAMIN TAB PO SCH (09:00)
[2017-06-04] MEDS ORDERED: DILTIAZEM HCL 120 MG EXT REL CAP PO SCH (09:00)
[2017-06-04] MEDS: SUCRALFATE 1 GM/10 ML UDC PO SCH ×2 (09:00→13:43)
[2017-06-04] MEDS ORDERED: SPIRONOLACTONE 25 MG TAB PO SCH (09:00)
[2017-06-04] MEDS ORDERED: PANTOprazole SOD 40 MG TAB PO SCH (09:00)
[2017-06-04 09:42] LABS: HEMOGLOBIN A1C 6.6 % (4.5-5.6)
[2017-06-04] MEDS ORDERED: DOBUTamine HCL 12.5 MG/ML 20 ML VIAL ONE (10:32)
[2017-06-04] MEDS ORDERED: METOPROLOL TARTRATE 1 MG/ML VIAL ONE (10:32)
[2017-06-04] MEDS ORDERED: ATROPINE SULFATE 0.1 MG/ML 5ML SYR ONE (10:33)
[2017-06-04] MEDS ORDERED: PERFLUTREN LIPID MICROSPHERE (DEFINITY) IV ONE (11:00)
--- NOTE | 2017-06-04 12:03 | Discharge Instructions ---
Discharge Instructions Date of Service Jun 04, 2017. Admission Reason for Admission: Chest Pain Discharge Discharge Diagnosis / Problem: Chest pain secondary to GERD/indigestion Discharge Goals Goal(s): Decrease discomfort, Improve function, Increase independence, Improve disease control Activity Recommendations Activity Limitations: resume your previous activity Lifting Limitations: none, gradually increase as tolerated Exercise/Sports Limitations: none, rest today May Resume Sexual Activity: when tolerated Shower/Bathe: no limitations Driving or Machine Use: no limitations . Instructions / Follow-Up Instructions / Follow-Up You were admitted to [facility] with chest pain and diagnosed with substernal chest pain secondary to GERD (gastroesophageal reflux disease) ie. indigestion. During your stay here you were evaluated for cardiac involvement: your cardiac biomarkers were negative x 3 sets. Imaging studies which were completed include stress echocardiogram, and was normal. You have a history of a Schatzki's ring in the esophagus, and likely may be contributing to indigestion and belching. A follow up appointment has been requested with Gastroenterology within [address] Watson and Shaista Campoverde PA-C. You will likely need to have a repeat EGD within the next 2 weeks for evaluation. Medications: Continue taking your medications as prescribed. Continue taking protonix and carafate as directed to help with indigestion Appointments: Appointments which have been requested for you: Follow up with your Primary Care Provider within 1 week. Follow up with Gastroenterology within 1 week for appointment and EGD. Current Hospital Diet Patient's current hospital diet: AHA Diet (Heart Healthy) Discharge Diet Recommended Diet: AHA Diet (Heart Healthy) Procedures Procedures Performed: Treadmill stress echocardiogram Pending Studies Studies pending at discharge: no Laboratory Results Hemoglobin A1c Test 06/04/17 08:39 Range/Units Estimated Average Glucose 143 mg/dl Hemoglobin A1c 6.6 H 4.5-5.6 % Lipid Panel Test 06/04/17 08:39 Range/Units Triglycerides Level 129 0-150 mg/dl Cholesterol Level 175 0-200 mg/dl HDL Cholesterol 54 mg/dl Cholesterol/HDL Ratio 3.2 LDL Cholesterol, Calculated 95 mg/dl Medical Emergencies . Who to Call and When: Medical Emergencies: If at any time you feel your situation is an emergency, please call 911 immediately. . Non-Emergent Contact Non-Emergency issues call your: Primary Care Provider, Health Care Analyst Call Non-Emergent contact if: you have a fever, temperature is above 100.5, your pain is not controlled, your pain is worsening, your pain is unusual for you, your pain is concerning you, you have any medication questions other concerns with your health. Call 911 or go directly to the Emergency Department if you experience any of the following: Chest pain, chest tightness, shortness of breath, abdominal pain , lightheadedness, dizziness, gastrointestinal bleeding, or have any other concerns regarding your health. . Past History Medical & Surgical History: (1) Schatzki's ring (2) GERD (gastroesophageal reflux disease) (3) Chest pain (4) Chronic Kidney Disease, Stage Iii (Moderate) (5) Diab Jyotsna Wo Compl, Type Ii Or Unspec Type, Not Uncntrld (6) Hypertension Nos (7) Rheumatoid Arthritis . "Provider Documentation" section prepared by Misty Larsen. . VTE Core Measure Inpt VTE Proph given/why not?: Enoxaparin (Lovenox)SHERMAN, TOsvaldoESam Meehan, SCD's [place] Drug Monitoring Program Search Results: no issues identified
--- NOTE | 2017-06-04 12:56 | DOBUTAMINE ECHO ---
*NOTICE TO RECEIVING CONSTITUTION PARTY AGENCY This information is strictly Confidential and protected under [place] law. [place] law prohibits you from making any further disclosure of this information unless further disclosure is expressly permitted by the written consent of the person to whom it pertains or is authorized by law. A general authorization for the release of medical or other information is not sufficient for this purpose. Hospital accepts no responsibility if the information is made available to any other person, INCLUDING THE PATIENT. Interpretation Summary * Name: FRANCA LEAL Study Date: 06/04/2017 09:17 AM BP: 174/75 mmHg * Patient Location: [facility] HR: 67 * : 1945 (M/d/yyyy) Gender: Female Height: 71 in * Age: 72 yrs Ethnicity: AA Weight: 227 lb * Ordering Physician: Nusrat Galvez * Referring Physician: Florentin Watson D.O. * Performed By: Kelli Quintana RDCS * * Reason For Study: Chest Pain * BSA: 2.2 m2 * -- Conclusions -- * Dobutamine Stress Echo: * 1. Negative Dobutamine stress echo for ischemia at 89 % MPHR. * 2. Negative Dobutamine ECG for ischemia at 89 % MPHR. * 3. Hypertensive blood pressure response. * 4. No arrhythmia. * 5. No chest pain reported. * 6. Technically difficult study, enhanced with IV Definity. * Echo: * 1. Normal left ventricular size with hyperdynamic systolic function. EF 65-70%. No regional wall motion abnormalities. Mild concentric left ventricular hypertrophy. Type 1 diastolic dysfunction. * 2. Sclerotic aortic valve without significant stenosis. * 3. Normal estimated right ventricular systolic pressure, assuming normal right atrial pressure (IVC not well visualized). Procedure Details * DOBUTAMINE ECHO, CPT#[id number] * ECHO DOPPLER, CPT #[id number] * ECHO COLOR FLOW, CPT #[id number] * The study was technically difficult with many images being suboptimal in quality. * A contrast injection of Definity was performed to improve assessment of LV function. * Contrast was injected into an intravenous site in the left arm. * One vial of Definity ultrasound contrast was diluted in normal saline to a total volume of 10 ml. A total of '5' ml of solution was administered during imaging. * Lot # [id number] of Definity utilized for procedure. * Expiration date . * The attending nurse who injected the contrast agent was Becky Hoffman RN. Left Ventricle * The left ventricle is normal in size. * There is mild concentric left ventricular hypertrophy. * The left ventricle is hyperdynamic. * The left ventricular ejection fraction increases normally with stress. The left ventricular end-systolic cavity size reduces post-stress (normal response). The left ventricular wall motion with stress is normal. * Resting wall motion: Normal. Stress wall motion: Appropriate increase in Left ventricular systolic function and decrease in cavity size. No stress induced segmental wall motion abnormalities. Right Ventricle * The right ventricle is normal in size and function. * The right ventricular systolic function is normal as assessed by tricuspid annular plane systolic excursion (TAPSE) (normal >1.5 cm). Atria * The left atrium is mildly dilated. * Right atrial size is normal. * There is no evidence of atrial septal defect, but resolution does not allow assessment for a patent foramen ovale. Mitral Valve * The mitral valve is grossly normal. * There is no mitral valve stenosis. * There is trace mitral regurgitation. Tricuspid Valve * The tricuspid valve is not well visualized. * There is no tricuspid stenosis. * Significant tricuspid regurgitation is absent. Aortic Valve * The aortic valve is trileaflet. * Aortic valve sclerosis moderate, without significant aortic valvular stenosis. * No hemodynamically significant valvular aortic stenosis. * There is no significant aortic regurgitation. Pulmonic Valve * The pulmonary valve is inadequately visualized, but the Doppler data is adequate for interpretation. * There is no significant pulmonary regurgitation. Great Vessels * The aortic root is normal size. * IVC not well visualized. Pericardium * There is no pericardial effusion. Stress Parameters * NSR at 74 bpm. * The stress ECG response was normal * No arrhythmia were noted with stress. * Rest heart rate was '74' BPM. * Rest blood pressure was '174/75' * Maximum heart rate achieved was 134 bpm. * Maximum heart rate was 89 % of maximum age-predicted heart rate. * Maximum blood pressure was '209/52' * Maximum Dobutamine infusion rate was '40' mcg/kg/min. * Dobutamine infusion was terminated due to achieving target heart rate * A total of 5 mg of IV Metoprolol was administered to reverse Dobutamine-induced tachycardia. MMode 2D Measurements and Calculations IVSd 1.2 cm IVSs 1.4 cm LVIDd 4.5 cm LVIDs 2.9 cm LVPWd 1.2 cm LVPWs 1.6 cm IVS/LVPW 1.0 FS 36.8 % EDV(Teich) 94.1 ml ESV(Teich) 31.2 ml EF(Teich) 66.8 % EDV(cubed) 93.2 ml ESV(cubed) 23.5 ml EF(cubed) 74.8 % % IVS thick 12.5 % % LVPW thick 36.5 % LV mass(C)d 204.8 grams LV mass(C)dI 92.0 grams/m\S\2 LV mass(C)s 151.4 grams LV mass(C)sI 68.0 grams/m\S\2 SV(Teich) 62.8 ml SI(Teich) 28.2 ml/m\S\2 SV(cubed) 69.7 ml SI(cubed) 31.3 ml/m\S\2 Ao root diam 3.1 cm Ao root area 7.5 cm\S\2 ACS 1.7 cm LA dimension 2.7 cm LA/Ao 0.88 LVAd ap4 21.3 cm\S\2 LVLd ap4 7.2 cm EDV(MOD-sp4) 52.2 ml EDV(sp4-el) 53.8 ml LVAs ap4 10.6 cm\S\2 LVLs ap4 5.9 cm ESV(MOD-sp4) 17.6 ml ESV(sp4-el) 16.2 ml EF(MOD-sp4) 66.3 % EF(sp4-el) 69.8 % LVAd ap2 22.5 cm\S\2 LVLd ap2 7.4 cm EDV(MOD-sp2) 57.0 ml EDV(sp2-el) 57.7 ml LVAs ap2 12.7 cm\S\2 LVLs ap2 6.9 cm ESV(MOD-sp2) 19.9 ml ESV(sp2-el) 19.7 ml EF(MOD-sp2) 65.1 % EF(sp2-el) 65.9 % LVLd %diff 3.4 % EDV(MOD-bp) 54.2 ml LVLs %diff 15.6 % ESV(MOD-bp) 20.2 ml EF(MOD-bp) 62.7 % SV(MOD-sp4) 34.6 ml SI(MOD-sp4) 15.6 ml/m\S\2 SV(MOD-sp2) 37.1 ml SI(MOD-sp2) 16.7 ml/m\S\2 SV(MOD-bp) 34.0 ml SI(MOD-bp) 15.3 ml/m\S\2 SV(sp4-el) 37.6 ml SI(sp4-el) 16.9 ml/m\S\2 SV(sp2-el) 38.0 ml SI(sp2-el) 17.1 ml/m\S\2 Doppler Measurements and Calculations MV E max tiana 66.5 cm/sec MV A max tiana 90.2 cm/sec MV E/A 0.74 MV dec time 0.24 sec Ao V2 max 170.5 cm/sec Ao max PG 11.6 mmHg Ao max PG (full) 6.7 mmHg Ao V2 mean 113.4 cm/sec Ao mean PG 5.9 mmHg Ao mean PG (full) 3.6 mmHg Ao V2 VTI 36.3 cm AI dec slope 106.9 cm/sec\S\2 LV V1 max PG 4.9 mmHg LV V1 mean PG 2.4 mmHg LV V1 max 111.1 cm/sec LV V1 mean 70.8 cm/sec LV V1 VTI 20.5 cm SV(Ao) 272.1 ml SI(Ao) 122.3 ml/m\S\2 PA V2 max 90.2 cm/sec PA max PG 3.3 mmHg TR max tiana 212.2 cm/sec
[2017-06-04] MEDS: MAGNESIUM OXIDE 400 MG TAB PO SCH (13:26)
[2017-06-04] MEDS: CETIRIZINE HCL 10 MG TAB PO SCH (13:26)
[2017-06-04] MEDS: DICYCLOMINE HCL 20 MG TAB PO SCH ×3 (13:26→14:00)
[2017-06-04] MEDS: POTASSIUM CHLORIDE 20 MEQ TABCR PO SCH (13:27)
--- NOTE | 2017-06-04 13:29 | Discharge Summary ---
Discharge Summary Date of Service Jun 04, 2017. Discharge Summary Admission Date: Jun 03, 2017 at 15:31 Discharge Date: Jun 04, 2017 Discharge Disposition: Home Principal Diagnosis: Chest pain secondary to GERD Problems/Secondary Diagnoses: Medical Problems: (1) Anemia Nos (2) Cardiac Dysrhythmias Nec (3) Cardiomegaly (4) Chronic Kidney Disease, Stage Iii (Moderate) (5) Chronic Sinusitis Nos (6) Degenerative arthritis of knee, bilateral (7) Diab Jyotsna Wo Compl, Type Ii Or Unspec Type, Not Uncntrld (8) Disorders Of Thyroid Nec (9) Diverticulosis Colon (W/O Ment Of Hemorrhage) (10) Enlargement Lymph Nodes (11) GERD (gastroesophageal reflux disease) (12) Hypertension Nos (13) Irritable Bowel Syndrome (14) Lumbar Disc Displacement (15) Lumbar stenosis with neurogenic claudication (16) Osteoarthritis, knee (17) Reflux Esophagitis (18) Rheumatoid Arthritis (19) Schatzki's ring Surgical Problems: (1) H/O thyroidectomy Immunizations: Have You Had Influenza Vaccine: Yes Influenza Vaccine Date: Mar 07, 2007 History of Tetanus Vaccine?: Yes History of Pneumococcal: Yes Pneumococcal Date: Jun 07, 2007 History of Hepatitis B Vaccine: Yes Procedures: Stress Echocardiogram 06/04/17 -- Conclusions -- * Dobutamine Stress Echo: * 1. Negative Dobutamine stress echo for ischemia at 89 % MPHR. * 2. Negative Dobutamine ECG for ischemia at 89 % MPHR. * 3. Hypertensive blood pressure response. * 4. No arrhythmia. * 5. No chest pain reported. * 6. Technically difficult study, enhanced with IV Definity. * Echo: * 1. Normal left ventricular size with hyperdynamic systolic function. EF 65 -70%. No regional wall motion abnormalities. Mild concentric left ventricular hypertrophy. Type 1 diastolic dysfunction. * 2. Sclerotic aortic valve without significant stenosis. * 3. Normal estimated right ventricular systolic pressure, assuming normal right atrial pressure (IVC not well visualized). CHEST ONE VIEW PORTABLE 06/03/17 FINDINGS: Mild stable cardiomegaly. Diaphragms are smooth. Lungs are clear. IMPRESSION: Mild stable cardiomegaly. Otherwise negative study. Consultations: None Medication Reconciliation Continued Medications: Alprazolam (Xanax) 0.5 Mg Tab 0.5 MG PO BID Apremilast (Otezla) 30 Mg Tab 30 MG PO QPM Aspirin (Aspirin 81) 81 Mg Tab 1 TAB PO HS Azelastine Hcl (Astelin Nasal [place]) 200 Sprays/30 Ml [place] 1-2 SPRAYS NA BID PRN for Nasal Congestion, BTL Benzonatate (Tessalon Perles) 100 Mg Cap 100 MG PO BID PRN for Cough, CAP Calcipotriene (Calcipotriene) 0.005 % Cre 1 APPLN EXT HS Apply to both hands with clobetasol under cotton gloves Cetirizine (Zyrtec) 10 Mg Tab 0.5 TAB PO BID, TAB Cholecalciferol (Vitamin D3) 1,000 Unit Cap 1 CAP PO QAM Clobetasol Propionate (Clobetasol Propionate) 45 Appln/15 Gm Oint 1 APPLN TOP HS, #60 GM 2 Refills Apply to both hands with calcipotriene under cotton gloves Dicyclomine Hcl (Dicyclomine Hcl) 20 Mg Tab 1 TAB PO TID, 11 Refills Diltiazem Hcl Ext Rel (Tiazac) 240 Mg Capcr 240 MG PO QAM, CAP Folic Acid (Folvite) 1 Mg Tab 4 MG PO QPM, TAB Ipratropium-Albuterol (Combivent Respimat) 1 Aer Aer 1 PUFFS INH BID PRN for Shortness of Breath, INH Levothyroxine Sodium (Levothyroxine Sodium) 88 Mcg Tab 88 MCG PO QAM Magnesium Oxide (Mg Supplement (Magnesium) 400 Mg Cap 1 TAB PO BID Methotrexate (Methotrexate) 2.5 Mg Tab 4 TABS PO THURSDAY Multivitamin (Multivitamin) Tab 1 TAB PO DAILY, TAB Nitroglycerin (Nitroglycerin Lingual) 0.4 Mg/[place] Spr 1 SPRAY PO UD PRN for STOMACH PAIN [place]-3 Fatty Acids (Fish Oil) 1 Cap Cap 1 CAP PO BID Oyster Shell (Calcium) 500 Mg Tab 1 TAB PO BID Pantoprazole (Protonix) 20 Mg Tab 40 MG PO QAM Potassium Ext Rel (Klor-Con) 20 Meq Tabcr 20 MEQ PO BID, TAB Prednisone (Prednisone) 5 Mg Tab 5 MG PO QPM for RHEUMATOID ARTHRITIS, TAB Spironolactone (Spironolactone) 25 Mg Tab 25 MG PO QAM Sucralfate (Carafate) 1 Gm/10 Ml [place] 10 ML PO QID for 6 Days, #240 ML 1 Refill Tacrolimus (Topical) (Tacrolimus) 0.03 % Oin 1 APPLN EXT BID Apply to both hands Discharge Exam The patient was seen and examined this morning. Pt reports still having substernal constant chest heaviness which is relieved with belching and burping , which has been ongoing x 10 days. All her cardiac enzymes have been negative x 3. She underwent a stress echocardiogram which was negative. Pt reports a hx of having Schatzki's ring dilated a few years ago. Upon review she did have an EGD in October 2015 where Schatzki's ring was dilated, had a hiatal hernia, and also a stomach ulceration. It is likely that she needs repeat EGD at this time. Pt denies any chest flutter, palpitation, flutter, headache, abd pain, n/v/d/c, shortness of breath, lightheadedness or dizziness. ROS: 10 point ROS reviewed and otherwise negative. Physical Exam: General Appearance: WD/WN, no apparent distress, + obese, + pertinent finding () Eyes: PERRL, EOMI ENT: hearing grossly normal, pharynx normal Neck: supple, no JVD Respiratory/Chest: lungs clear, no respiratory distress, no accessory muscle use, + pertinent finding (chest tenderness with palpation) Cardiovascular: regular rate, rhythm, no JVD, no murmur Abdomen / GI: normal bowel sounds, non tender, soft Extremities: normal inspection, no calf tenderness, no pedal edema Neurologic/Psychiatric: alert, normal mood/affect, oriented x 3 Skin: normal color, warm/dry Hospital Course History of Present Illness Source: patient, clinic records, hospital records This is a 72 y/o female with a history of HTN, CKD stage III, hypothyroidism, psoriatic arthritis, neuropathy, anemia of chronic disease, IBS and GERD who presented to the ED on 06/03 with chest pain. The patient states that she had a back surgery back in March, after which she was at rehab, although she is now back home. She first started developing chest pressure while at rehab, and this discomfort has gotten progressively worse over time. The pain had seemed to be GI related as the pain used to improve after belching, but last night the pain became much worse and the patient wasn't able to sleep. Last night the pain began to radiate to her left shoulder and down her left arm, which was the first time it had done that. She did have some temporary relief with nitro at home. The patient had recently been started on Carafate due to this same pain, but that has not helped. Currently the patient describes a pressure in the center of her chest and an intermittent 10/10 sharp pain in her left shoulder and back. The patient denies fevers, chills, sweats, palpitations, claudication , cough, wheezing, shortness of breath, nausea, vomiting, abdominal pain, dysuria, hematuria, urinary retention, paralysis, weakness, numbness and tingling. Physical Exam General appearance: +Obese. Well-developed, well-nourished, no apparent distress Head: Normocephalic, atraumatic Eyes: Normal inspection, PERRL, EOMI ENT: Normal ENT inspection, hearing grossly normal, pharynx normal Neck: Supple, no JVD, trachea midline Respiratory/Chest: Lungs clear to auscultation, normal breath sounds, no respiratory distress Cardiovascular: Regular rate & rhythm, no gallop, no murmur Abdomen/GI: Normal bowel sounds, non-tender, soft Extremities/Musculoskeletal: Normal inspection, no calf tenderness, no pedal edema Neurological/Psych: Alert, normal mood/affect, oriented x 3 Skin: Normal color, warm/dry, no rash Hospital Course: 72 y/o female with a history of HTN, CKD stage III, hypothyroidism, psoriatic arthritis, neuropathy, anemia of chronic disease, IBS and GERD who presented to the ED on 06/03 with chest pain. Pt arrived hypertensive with BP up to 193/111, otherwise afebrile and VSS. CXR no acute disease. EKG no ischemic changes. First troponin negative. Pt did not have any relief of pain with Maalox. Chest pain, secondary to GERD - Pt w/ hx of Schatzki's ring requiring dilation [place] [address] Watson. No formal GI consult during this admission, however I did speak with Shaista Campoverde PA-C who plans to set this patient up for EGD/follow up within the next week. The patient was seen in the GI office 2 days prior to her admission here, and due to ongoing and worsening pain was sent to the ER. Continue carafate and protonix at this time for GERD. - Cardiac enzymes neg x 3 - Stress echocardiogram negative. -EKG q am remained the same, no signs of ischemia or ST wave changes HTN--currently hypertensive -Continue diltiazem 240 mg PO qd, spironolactone 25 mg PO qd -Cover with hydralazine 10 mg IV q6h prn SBP >180. - BP stable at time of discharge. CKD stage III--stable -Creatinine at baseline Hypothyroidism -Continue Synthroid 88 mcg PO qd Psoriatic arthritis -Continue prednisone 5 mg PO qd, Otezla 30 mg PO qd, tacrolimus cream to hands BID, calcipotriene and clobetasol to hands at night -Pt takes methotrexate 10 mg PO on Mondays -Continue folic acid 4 mg PO qd Neuropathy -Continue Xanax 0.5 mg PO BID. Pt states this is for nerve pain, not anxiety IBS, GERD -Continue Bentyl 20 mg PO TID -Continue Carafate 1 gm QID and Protonix 40 mg PO qd - Follow up with GI as above DVT ppx: lovenox, teds, scds Code Status: Level III, FULL NO MECH VENT Disposition: From home, discharge today. i personally examined pt and verified all ellis points sebas Larsen PAC feeling aboutthe same stress negative already set up for GI pleased to go home vitals noted nad breathing unlabored no pallor or icterus chest pain - GI related. enzymes negative, stress echo negative safe for home, GI aware and will set up for next week Total Time Spent: Greater than 30 minutes This includes examination of the patient, discharge planning, medication reconciliation, and communication with other providers. Discharge Instructions Please refer to the electronic Patient Visit Report (Discharge Instructions) for additional information. Follow-Up Follow up with your Primary Care Provider within 1 week. Follow up with gastroenterology within 1 week. Additional Copies To John Melendez M.D.
[2017-06-04] MEDS: CALCIUM CARBONATE 1250MG TAB PO SCH (13:30)
[2017-06-04] MEDS: ALPRAZOLAM 0.5 MG TAB PO SCH (13:43)
== END 2017-06-04 14:50 | disposition home or self-care (01) ==
LOC: C.EDB 11:12 → C.MED 15:31 → ENRESERV 15:51
PROVIDERS: ADMIT Internal Medicine; ATTEND Family Medicine
DX: K21.0 Gastro-esophageal reflux disease with esophagitis (principal); K22.2 Esophageal obstruction; E11.22 Type 2 diabetes mellitus with diabetic chronic kidney disease; E11.42 Type 2 diabetes mellitus with diabetic polyneuropathy; I12.9 Hypertensive chronic kidney disease with stage 1 through stage 4 chronic kidney disease, or unspecified chronic kidney disease; N18.3 Chronic kidney disease, stage 3 (moderate); D64.9 Anemia, unspecified; I51.7 Cardiomegaly; E89.0 Postprocedural hypothyroidism; L40.50 Arthropathic psoriasis, unspecified; M17.0 Bilateral primary osteoarthritis of knee; K58.9 Irritable bowel syndrome, unspecified; M48.062 Spinal stenosis, lumbar region with neurogenic claudication; M06.9 Rheumatoid arthritis, unspecified; Z79.82 Long term (current) use of aspirin; Z79.899 Other long term (current) drug therapy

== ENCOUNTER → 2017-08-06 | Outpatient (CLI) | payer BC ==
[~2017-08-06] MED LIST changes: +CALC1CRE2 EXT; +CRFL PO; -RXC5 PO; -TRMO2580 TOP; +[UNRECOGNIZED DRUG - CODE] EXT
[2017-08-06 14:40] LABS: BASO % 0.4 %; BASO ABS # 0.02 K/uL (0-0.2); EOS % 0.8 %; EOS ABS # 0.04 K/uL (0-0.5); HEMATOCRIT 36.7 % (37-47); HEMOGLOBIN 11.9 g/dL (12.0-16.0); IG# 0.01 K/uL (0.00-0.02); LYMPH % 29.7 %; MEAN CELL VOLUME 85.2 fL (80-100); MEAN CORPUSCULAR HEMOGLOBIN 27.6 pg (25-34); MEAN CORPUSCULAR HGB CONC 32.4 g/dl (32-36); MEAN PLATELET VOLUME 10.6 fL (7.4-10.4); MONO % 3.2 %; MONO ABS # 0.15 K/uL (0.11-0.59); NEUT % 65.7 %; PLATELET COUNT 408 K/uL (130-400); RED CELL DISTRIBUTION WIDTH CV 19.9 % (11.5-14.5); WHITE BLOOD COUNT 4.72 K/uL (4.8-10.8)
[2017-08-06 15:28] LABS: ALBUMIN 3.7 gm/dl (3.4-5.0); ALT/SGPT 38 U/L (12-78); BLOOD UREA NITROGEN 23 mg/dl (7-18); CALCIUM 10.2 mg/dl (8.5-10.1); CARBON DIOXIDE 23 mmol/L (21-32); CREATININE 1.87 mg/dl (0.60-1.20); GLUCOSE 92 mg/dl (70-99); POTASSIUM 4.4 mmol/L (3.5-5.1); SODIUM 135 mmol/L (136-145)
[2017-08-06 15:31] LABS: ALKALINE PHOSPHATASE 127 U/L (45-117); AST/SGOT 28 U/L (15-37)
== END | disposition home or self-care (01) ==
LOC: C.LAB1850 13:51
PROVIDERS: ATTEND Internal Medicine Rheumatology
DX: Z51.81 Encounter for therapeutic drug level monitoring (principal); Z79.899 Other long term (current) drug therapy; L40.50 Arthropathic psoriasis, unspecified; M54.16 Radiculopathy, lumbar region; I10 Essential (primary) hypertension

== ENCOUNTER 2018-07-26 15:49 | Observation (INO) ==
[2018-07-26] MEDS ORDERED: SODIUM CHLORIDE 0.9% 1000ML 1,000 ML IV ONE (16:21)
[2018-07-26 16:27] LABS: Basophils # (auto) 0.01 K/uL (0-0.2); Basophils % (auto) 0.2 %; Eosinophils % (auto) 1.8 %; Immature Granulocytes # (auto) 0.03 K/uL (0.00-0.02); Immature Granulocytes % (auto) 0.5 %; Lymphocytes # (auto) 1.33 K/uL (1.2-3.4); Lymphocytes % (auto) 24.3 %; Mean Corpuscular Hgb Conc 31.6 g/dL (32-36); Mean Corpuscular Volume 91.8 fL (80-100); Mean Platelet Volume 10.9 fL (7.4-10.4); Monocytes # (auto) 0.28 K/uL (0.11-0.59); Monocytes % (auto) 5.1 %; Neutrophils # (auto) 3.72 K/uL (1.4-6.5); Neutrophils % (auto) 68.1 %; Platelet Count 278 K/uL (130-400); RDW Coefficient of Variation 16.2 % (11.5-14.5); Red Blood Count 4.14 M/uL (4.2-5.4); White Blood Count 5.47 K/uL (4.8-10.8)
--- NOTE | 2018-07-26 16:42 | XRay Report ---
XR chest 1V portable HISTORY: 73 years-old Female weakness acute weakness COMPARISON: Chest radiograph 06/03/2017 TECHNIQUE: Portable AP view of the chest FINDINGS: Cardiac silhouette is enlarged, unchanged. No pneumothorax, pleural effusion, focal airspace consolid ation or overt pulmonary edema. Degenerative changes are seen about the shoulders and spine. Remote p osttraumatic or postsurgical changes of the distal right clavicle. IMPRESSION: Cardiomegaly without acute process. The above report was generated using voice recognition software. It may contain grammatical, syntax o r spelling errors. Electronically signed by: Juventino Steiner M.D. 07/26/2018 4:40 PM
[2018-07-26 16:54] LABS: Alanine Aminotransferase 22 U/L (12-78); Albumin Level 3.1 gm/dl (3.4-5.0); Aspartate Aminotransferase 17 U/L (15-37); Blood Urea Nitrogen 33 mg/dl (7-18); Carbon Dioxide 22 mmol/L (21-32); Chloride 105 mmol/L (98-107); Est GFR (African American) 25.3; Est GFR (Non-African American) 21.8; Glucose 146 mg/dl (70-99); Magnesium 1.9 mg/dl (1.8-2.4); Potassium 4.1 mmol/L (3.5-5.1); Sodium 137 mmol/L (136-145)
[2018-07-26 17:05] LABS: Albumin Globulin Ratio 0.8 (0.9-2); Alkaline Phosphatase 102 U/L (45-117); Bilirubin,Total 0.4 mg/dl (0.2-1); Total Protein 7.1 gm/dl (6.4-8.2); Troponin I < 0.015 ng/ml (0-0.045)
[2018-07-26 17:56] LABS: Appearance Urine Clear (Clear); Bilirubin Urine Negative (Negative); Blood Urine Negative (Negative); Color Urine Yellow; Glucose Urine UA Negative (Negative); Ketones Urine Negative (Negative); Leukocyte Esterase Urine Negative (Negative); Nitrite Urine Negative (Negative); Protein Urine Negative (Negative); Specific Gravity Urine 1.009 (1.000-1.030); Urobilinogen Urine Negative (Negative)
[2018-07-26] MEDS ORDERED: ASPIRIN CHEW 324 MG PO STA (18:15)
[2018-07-26] MEDS ORDERED: ASPIRIN 81 MG CHEW ONE (18:23)
--- NOTE | 2018-07-26 18:39 | Emergency Department Note ---
Entered by Hue Reynolds acting as a scribe for History of Present Illness General Chief complaint: Syncope (Near Syncope) Stated complaint: FAST PULSE,ABOUT TO PASS OUT Source: patient History of Present Illness Onset (ago): minute(s) (prior to arrival) Location: head Pain Consistency: + other (episode) Quality: + other (near syncope) Associated symptoms: + denies other symptoms (abdominal pain, body aches, cold symptoms, difficulty speaking, urinary symptoms), + diaphoresis, + nausea/vomiting (nausea) and + other (lightheaded, left hand numbness, chest discomfort); no chest pain, no cough and no shortness of breath The patient is a 73 year old female who presents to the Emergency Room with complaints of an episode of near syncope occurring prior to arrival. The patient states that all day today she has been feeling under the weather. She reports that she went to get up to use the bathroom at home and noticed the she felt lightheaded. She states at the same time she noticed that she was very diaphoretic and felt nauseous. The patient complains of left hand numbness and chest discomfort. The patient denies chest pain, abdominal pain, body aches, cough, cold symptoms, difficulty speaking, shortness of breath, recent changes in medicine, urinary symptoms, a cardiac history, being around anyone who has been sick, and this ever happening before. The patient notes that she takes a baby aspirin, but denies any other blood thinners. Home Medications Home Medications Medication Instructions Recorded Confirmed Type apremilast [Otezla] 30 mg PO HS 07/26/18 07/26/18 History aspirin 81 mg PO 07/26/18 07/26/18 History azelastine 2 spray INTRANASAL DAILY 07/26/18 07/26/18 History benzonatate 100 mg PO BID PRN 07/26/18 07/26/18 History calcipotriene 1 applic TOPICAL BID 07/26/18 07/26/18 History calcium phos-vit D3-mag oxide 1 tab PO QAM 07/26/18 07/26/18 History [Posture-D (with magnesium)] cetirizine [Zyrtec] 10 mg PO QAM 07/26/18 07/26/18 History cholecalciferol (vitamin D3) 1,000 unit PO 07/26/18 07/26/18 History [Vitamin D3] clobetasol 1 applic TOPICAL DAILY PRN 07/26/18 07/26/18 History dicyclomine 20 mg PO TID PRN 07/26/18 07/26/18 History diltiazem HCl 240 mg PO DAILY 07/26/18 07/26/18 History duloxetine 60 mg PO DAILY 07/26/18 07/26/18 History levalbuterol HCl 0.63 mg INHALATION Q4 PRN 07/26/18 07/26/18 History levothyroxine 75 mcg PO DAILY 07/26/18 07/26/18 History magnesium oxide 800 mg PO DAILY 07/26/18 07/26/18 History nitroglycerin 1 - 2 spray SUBLINGUAL DIRECTED 07/26/18 07/26/18 History PRN omega [id number] oil [Fish Oil] 1,000 mg PO BID 07/26/18 07/26/18 History pantoprazole [Protonix] 40 mg PO DAILYBB 07/26/18 07/26/18 History potassium chloride [Klor-Con M20] 20 meq PO BID 07/26/18 07/26/18 History prednisone 5 mg PO HS 07/26/18 07/26/18 History spironolactone 25 mg PO BID 07/26/18 07/26/18 History tacrolimus 1 applic TOPICAL BID 07/26/18 07/26/18 History triamcinolone acetonide 1 applic TOPICAL BID PRN 07/26/18 07/26/18 History Allergies Allergy/AdvReac Type Severity Reaction Status Date / Time codeine Allergy Severe Anaphylaxis Verified 07/26/18 16:54 capsaicin Allergy Intermediate CREATINE Verified 07/26/18 16:54 ELEVATION diclofenac Allergy Intermediate CREATINE Verified 07/26/18 16:54 ELEVATION Diclopak Allergy Intermediate CREATINE Verified 04/06/17 09:34 ELEVATION isopropyl alcohol Allergy Intermediate CREATINE Verified 07/26/18 16:54 ELEVATION propylene glycol Allergy Intermediate CREATINE Verified 07/26/18 16:54 ELEVATION celecoxib [From Celebrex] Allergy Mild Rash Verified 07/26/18 16:54 Iodinated Contrast- Oral and Allergy Mild RASH Verified 07/26/18 16:54 IV Dye Sulfa (Sulfonamide Allergy Mild RASH TO Verified 07/26/18 16:54 Antibiotics) SULFA DRUGS tetracycline Allergy Mild RASH Verified 07/26/18 16:54 Past Med/Surg History Medical History Knee pain (Acute) Osteoarthritis, knee (Chronic) Degenerative arthritis of knee, bilateral (Chronic) Bronchitis (Acute) Acute bronchitis (Acute) Failure of outpatient treatment (Acute) Acute laryngitis (Acute) GERD (gastroesophageal reflux disease) Laryngitis (Acute) Lumbar stenosis with neurogenic claudication Schatzki's ring Surgical History H/O thyroidectomy (Resolved) History of knee surgery (Acute) History of back surgery Family History Other Family history non-contributory Social History Preferred Language: Arabic marital status: Current Living Situation: Spouse current occupational status: retired Feels Safe at Home: Yes Smoking Status: Never smoker Review of Systems See HPI for pertinent positives & negatives. and A total of 10 systems reviewed and were otherwise negative Physical Exam Vital Signs Vital Signs - 24 hr 07/26/18 15:53 07/26/18 16:32 07/26/18 17:45 Temperature 36.6 C Temperature Source Oral Sepsis Recent Fever Within 48 Hours No Sepsis New/Unexplained Change in Mental Status No Sepsis Action Taken by Nursing No Action Required Pulse Rate - Lying Pulse Rate - Sitting Pulse Rate - Standing Pulse Rate 47 L 47 L Pulse Rate [Apical] 47 L 48 L Pulse Rate from SpO2 Sensor Pulse Rhythm Regular Pulse Rhythm [Apical] Regular Regular Pulse Strength [Apical] Normal Normal Respiratory Rate 20 18 18 Respiratory Effort / Characteristics Non-Labored Non-Labored Spontaneous Non-Labored Spontaneous Respiratory Depth Normal Normal Normal Respiratory Pattern Regular Regular Blood Pressure - Lying Blood Pressure - Sitting Blood Pressure- Standing Blood Pressure 104/58 L Blood Pressure [Left Arm] 102/57 L 91/65 L Blood Pressure Mean 73 Blood Pressure Mean [Left Arm] 72 73 Blood Pressure Position [Left Arm] Sitting Sitting Pulse Oximetry 98 96 98 Oxygen Delivery Method Room Air Room Air Room Air 07/26/18 18:27 07/26/18 19:32 07/26/18 20:00 Temperature Temperature Source Sepsis Recent Fever Within 48 Hours Sepsis New/Unexplained Change in Mental Status Sepsis Action Taken by Nursing Pulse Rate - Lying 47 L Pulse Rate - Sitting 50 L Pulse Rate - Standing 53 L Pulse Rate 51 L Pulse Rate [Apical] 47 L Pulse Rate from SpO2 Sensor 51 L Pulse Rhythm Pulse Rhythm [Apical] Pulse Strength [Apical] Respiratory Rate 20 17 Respiratory Effort / Characteristics Respiratory Depth Respiratory Pattern Blood Pressure - Lying 108/71 Blood Pressure - Sitting 112/71 Blood Pressure- Standing 115/60 Blood Pressure 135/81 Blood Pressure [Left Arm] 129/73 Blood Pressure Mean 99 Blood Pressure Mean [Left Arm] 91 Blood Pressure Position [Left Arm] Pulse Oximetry 99 99 Oxygen Delivery Method GENERAL: Awake, alert, well-appearing, in no distress HENT: Normocephalic, atraumatic. Oropharynx unremarkable. EYES: Normal conjunctiva. Sclera non-icteric. PERRL. Extraoccular motions intact. NECK: Supple. No nuchal rigidity. RESPIRATORY: Clear to auscultation. No wheezes. Normal respiratory effort. CARDIAC: Bradycardic rate. Normal rhythm. Extremities warm and well perfused. GI: Soft, non-distended. No tenderness to palpation. No rebound or guarding. No masses. RECTAL: Deferred. MUSCULOSKELETAL: Atraumatic. Chest examination reveals no tenderness LOWER EXTREMITIES: Calves are equal size bilaterally and non-tender. No edema NEURO: Normal sensorium. No sensory or motor deficits noted. No facial droop. No slurred speech SKIN: Warm and dry. No rash or jaundice noted. Course 160: Past medical records reviewed. The patient was evaluated in room A9B, and a complete history and physical examination were performed. 172: I reevaluated the patient and she is doing okay. She is going to try to us e the restroom. 181: I reevaluated the patient and had a long discussion with her. She now admits to chest heaviness earlier today and while in the bathroom here. She reports that it is worse with walking. I updated her on her test results and the treatment plan. She verbally agrees and understands. 182: I reviewed the patient's case with Dr. Candice FONTENOT Hospitalist. She will evaluate the patient for further management. Consultations Consultation #1: I reviewed the patient's case with Dr. Candice FONTENOT Hospitalist. She will evaluate the patient for further management. Time: 18:21 Administered Medications Discontinued Medications Aspirin (Aspirin) 324 mg PO NOW STA Stop: 07/26/18 18:16 Last Admin: 07/26/18 18:25 Dose: Not Given Documented by: [id number] Aspirin (Aspirin Chew) Confirm Administered Dose 324 mg .ROUTE .STK-MED ONE Stop: 07/26/18 18:24 Last Admin: 07/26/18 18:24 Dose: 324 mg Documented by: [id number] Sodium Chloride (Nss 1000ml) 1,000 mls @ 999 mls/hr IV .Q1H1M ONE Stop: 07/26/18 17:21 Last Infusion: 07/26/18 17:35 Dose: 0 mls/hr Documented by: [id number] Admin: 07/26/18 16:32 Dose: 999 mls/hr Documented by: [id number] Medical Decision Making Differential Diagnosis Differential diagnosis: Etiologies such as vasovagal event, infection, anemia, hypoglycemia, hypovolemia, electrolyte abnormalities, dysrhythmias, cardiac ischemia, cardiac tamponade, valvular heart disease, structural heart disease, seizure, vascular stenosis/dissection, pulmonary embolism, intracerebral event, toxicological process, neurologic event, as well as others were entertained. Medical Records Attestation: I reviewed the patient's medical records. Home Medications Current Medication List: was personally reviewed by me Laboratory Data Attestation: I reviewed the patient's lab results. Result diagrams: 07/26/18 16:09 07/26/18 16:09 Lab Results 07/26/18 07/26/18 07/26/18 Range/Units 16:09 16:09 17:35 WBC 5.47 (4.8-10.8) K/uL RBC 4.14 L (4.2-5.4) M/uL Hgb 12.0 (12.0-16.0) g/dL Hct 38.0 (37-47) % MCV 91.8 (80-100) fL MCH 29.0 (25-34) pg MCHC 31.6 L (32-36) g/dL RDW Std Deviation 54.0 H (36.4-46.3) fL RDW Coeff of Amrita 16.2 H (11.5-14.5) % Plt Count 278 (130-400) K/uL MPV 10.9 H (7.4-10.4) fL Immature Gran % (Auto) 0.5 % Neut % (Auto) 68.1 % Lymph % (Auto) 24.3 % [place] % (Auto) 5.1 % Eos % (Auto) 1.8 % Baso % (Auto) 0.2 % Immature Gran # (Auto) 0.03 H (0.00-0.02) K/uL Neut # (Auto) 3.72 (1.4-6.5) K/uL Lymph # (Auto) 1.33 (1.2-3.4) K/uL [place] # (Auto) 0.28 (0.11-0.59) K/uL Eos # (Auto) 0.10 (0-0.5) K/uL Baso # (Auto) 0.01 (0-0.2) K/uL Sodium 137 (136-145) mmol/L Potassium 4.1 (3.5-5.1) mmol/L Chloride 105 (98-107) mmol/L Carbon Dioxide 22 (21-32) mmol/L Anion Gap 10.0 (3-11) BUN 33 H (7-18) mg/dl Creatinine 2.19 H (0.6-1.2) mg/dl Est Cr Clr Drug Dosing Not Reportable Est GFR ( Amer) 25.3 Est GFR (Non-Af Amer) 21.8 BUN/Creatinine Ratio 15.0 (10-20) Glucose 146 H (70-99) mg/dl Calcium 9.0 (8.5-10.1) mg/dl Magnesium 1.9 (1.8-2.4) mg/dl Total Bilirubin 0.4 (0.2-1) mg/dl AST 17 (15-37) U/L ALT 22 (12-78) U/L Alkaline Phosphatase 102 (45-117) U/L Troponin I < 0.015 (0-0.045) ng/ml Total Protein 7.1 (6.4-8.2) gm/dl Albumin 3.1 L (3.4-5.0) gm/dl Globulin 4.0 (2.5-4.0) gm/dl Albumin/Globulin Ratio 0.8 L (0.9-2) TSH 2.310 (0.300-4.500) uIu/ml Urine Color Yellow Urine Appearance Clear (Clear) Urine pH 6.0 (4.5-7.5) Ur Specific Richardson 1.009 (1.000-1.030) Urine Protein Negative (Negative) Urine Glucose (UA) Negative (Negative) Urine Ketones Negative (Negative) Urine Blood Negative (Negative) Urine Nitrite Negative (Negative) Urine Bilirubin Negative (Negative) Urine Urobilinogen Negative (Negative) Ur Leukocyte Esterase Negative (Negative) Imaging Data Radiologist's Impression: Radiology results as stated below per my review and the radiologist's interpretation: XR chest 1V portable HISTORY: 73 years-old Female weakness acute weakness COMPARISON: Chest radiograph 06/03/2017 TECHNIQUE: Portable AP view of the chest FINDINGS: Cardiac silhouette is enlarged, unchanged. No pneumothorax, pleural effusion, focal airspace consolidation or overt pulmonary edema. Degenerative changes are seen about the shoulders and spine. Remote posttraumatic or postsurgical changes of the distal right clavicle. IMPRESSION: Cardiomegaly without acute process. The above report was generated using voice recognition software. It may contain grammatical, syntax or spelling errors. Electronically signed by: Juventino Steiner M.D. 07/26/2018 4:40 PM ECG Data Attestation: I personally reviewed and interpreted this ECG as follows: Indication: syncope (near) Rate (beats per minute): 47 Rhythm: sinus bradycardia Findings: + nonspecific-ST abn; no PVC and no ST elevation Blood Pressure Blood Pressure Findings: Low blood pressure Blood Pressure Disposition: further management by hospitalist ED Narrative 73-year-old female with a history of GERD, irritable bowel syndrome, chronic kidney disease, cardiomyopathy, psoriatic arthritis presenting today with complaints of generalized unwellness feeling nauseated. Did state her blood pressure was low for her to 110 systolic at home. No fevers or trauma reported. States she has some left hand numbness this morning, transient. His chronic left shoulder pain.'s felt somewhat lightheaded and sat down. Later states some chest heaviness. Transient nausea earlier. States has had a similar episode before when her blood pressure medicine was too much. Recently evaluated by her PCP and following for recent worsening renal function. Evaluation here does not show any evidence of acute leukocytosis or anemia. Kidney function appears similar to previous from this fall without evidence of significant electrolyte abnormality. Negative troponin. Doubt disection. LFTs TSH within normal limits. Chest x-ray without significant findings. Patient does endorse improvement after receiving some fluid. Discussed with her at length she does endorse for the last several months she has had a little bit of chest discomfort on exertion. States she has been getting some diaphoresis and sweats that time intermittently. Did not drink much today. Last cardiac stress test that was normal last May,. Patient later describes that she meant cellular she is having some chest pressure and this reoccurred after returning from the bathroom today when she states she was somewhat hypotensive with a systolic blood pressure in the 80s. This is since resolved. Given aspirin here. Disc ussed with the hospitalist for admission given concerns for possible cardiac etiology. Moderate risk heart score. Impression & Plan Near syncope, Chest pain Discharge Plan Visit Data Chief Complaint: Syncope (Near Syncope) Stated Complaint: FAST PULSE,ABOUT TO PASS OUT ED Provider: Chas Zavala Discharge Problem: Near syncope, Chest pain Patient Disposition: Being Evaluated by Hospitalist Forms Stand Alone Forms: [facility] Prescriptions Prescriptions: No Action cetirizine [Zyrtec] 10 mg Tablet 10 mg PO QAM RF: 0 levalbuterol HCl 0.63 mg/3 mL Solution For Nebulization 0.63 mg INHALATION Q4 PRN (Reason: Shortness Of Breath Or Wheezing) RF: 0 prednisone 5 mg Tablet 5 mg PO HS RF: 0 clobetasol 0.05 % Cream 1 applic TOPICAL DAILY PRN (Reason: NEEDED) RF: 0 diltiazem HCl 240 mg Capsule,Extended Release 24 Hr 240 mg PO DAILY RF: 0 spironolactone 25 mg Tablet 25 mg PO BID RF: 0 levothyroxine 75 mcg Tablet 75 mcg PO DAILY RF: 0 potassium chloride [Klor-Con M20] 20 mEq Tablet,Er Particles/Crystals 20 meq PO BID RF: 0 triamcinolone acetonide 0.025 % Cream 1 applic TOPICAL BID PRN (Reason: PSORIASIS) RF: 0 dicyclomine 20 mg Tablet 20 mg PO TID PRN (Reason: Abdominal Discomfort) RF: 0 benzonatate 100 mg Capsule 100 mg PO BID PRN (Reason: Cough) RF: 0 pantoprazole [Protonix] 40 mg Tablet,Delayed Release (Dr/Ec) 40 mg PO DAILYBB RF: 0 calcipotriene 0.005 % Cream 1 applic TOPICAL BID RF: 0 tacrolimus 0.03 % Ointment 1 applic TOPICAL BID RF: 0 nitroglycerin 400 mcg/spray [place],Non-Aerosol 1 - 2 spray Sublingual DIRECTED PRN (Reason: ESOPHAGEAL SPASMS) RF: 0 aspirin 81 mg Tablet,Chewable 81 mg PO HS RF: 0 azelastine 137 mcg (0.1 %) Aerosol,[place] 2 spray INTRANASAL DAILY RF: 0 cholecalciferol (vitamin D3) [Vitamin D3] 1,000 unit Capsule 1,000 unit PO HS RF: 0 duloxetine 60 mg Capsule,Delayed Release(Dr/Ec) 60 mg PO DAILY RF: 0 omega [id number]-fish oil [Fish Oil] 1,000 mg (120 mg-180 mg) Capsule 1,000 mg PO BID RF: 0 Otezla 30 mg Tablet 30 mg PO HS RF: 0 Posture-D (with magnesium) 600 mg calcium- 500 unit-50 mg Tablet 1 tab PO QAM RF: 0 magnesium oxide 400 mg magnesium Tablet 800 mg PO DAILY RF: 0 Referrals Referrals: Shelton Melendez MD [Primary Care Provider] - Discharge Problem: Chest pain Qualifiers: Chest pain type: unspecified Qualified Code(s): R07.9 - Chest pain, unspecified The scribe's documentation has been prepared under my direction and personally reviewed by me in its entirety. I confirm that the note above accurately ref lects all work, treatment, procedures, and medical decision making performed by me.
--- NOTE | 2018-07-26 19:59 | History & Physical Report ---
Date of Service July 26, 2018 Assessment & Plan (1) Near syncope: This patient is a 73-year-old female with a history of HTN, CKD stage IV, psoriatic arthritis on chronic steroids, hypothyroidism, PUD, allergies and questionable asthma, superficial thrombophlebitis, severe cervical spine sten osis with a C6-C7 and T1 suspected meningioma, and IBS, who presents to the ER with a complaint of feeling lightheaded and almost passing out today when she got up to go to the bathroom. At the time, she had chest heaviness that was associated with this and reports that she took her blood pressure and heart rate at home and they were both much lower than usual with a heart rate of 42 and a blood pressure systolic of 110. This resolved with resting. It happened again in the ER and her blood pressure dropped to the 80s systolic again with associated chest heaviness when she got up to go to the bathroom. She denies any recent illnesses and has been taking p.o. like usual. She has some mild associated nausea but has not been vomiting. She denies diarrhea. She has not had any changes recently in her medications. In the ER, her renal function was at baseline with creatinine of 2.1, her initial troponin was negative. Her ECG showed a sinus bradycardia with a rate of 47 with T wave inversions in leads I and aVL. Her TSH was normal at 2.31. She was given 1 L of normal saline. She will be admitted for presyncope with bradycardia and hypotension with associated chest pain. Likely secondary to orthostasis-which could be due to dehydration as she is taking diuretics, could be relative adrenal insufficiency given chronic steroid use. -Admit to telemetry for cardiac monitoring for bradycardia -Check orthostatics every shift-hopefully will be improved now that she received a liter of normal saline -Hold Aldactone and diltiazem -Consult cardiology for further evaluation -Check resting echocardiogram -Consider stress dose steroids if blood pressures remain low (2) Chest pain: Chest heaviness associated only with low blood pressures and orthostasis Could be angina. ECG with T wave inversions in 1 and aVL Had a dobutamine stress echo in 05/2017 that was negative -Trend serial troponin and ECG -Cardiology consultation requested to see about further evaluation -We will keep n.p.o. after midnight in case of need for further cardiac testing tomorrow (3) Orthostasis: As above, could be secondary to diuretic use and/or relative adrenal insufficiency -Received IV fluids -Holding Aldactone and diltiazem -Follow orthostatics every shift (4) Bradycardia: Could be secondary to diltiazem although she normally is in the 60s at rest with her heart rate and now is in the 40s with associated presyncope -Hold diltiazem -Monitor on telemetry (5) Peptic ulcer disease: Continue PPI Is on chronic prednisone which puts her at high risk (6) Irritable bowel syndrome: Continue Bentyl as needed (7) Hypothyroidism: TSH here is normal at 2.31 -Continue home levothyroxine (8) Spinal meningioma: Follow as an outpatient (9) HTN (hypertension), benign: Blood pressures on the low side here -Holding Aldactone and diltiazem as above (10) CKD (chronic kidney disease) stage 4, GFR 15-29 ml/min: Creatinine here is at baseline at 2.1 -Avoid nephrotoxins -Renally dose all medications when appropriate -Follow BMP in the morning (11) Chronic steroid use: Is on prednisone 5 mg daily for psoriatic arthropathy-we will continue this here and consider stress dose steroids as needed for low blood pressures as above (12) Psoriatic arthropathy: Continue prednisone and Otezla from home (13) DVT prophylaxis: Heparin SQ Disposition-admit to telemetry for observation overnight and further workup for chest heaviness, bradycardia, hypotension, and presyncope History of Present Illness Chief Complaint: Lightheadedness, chest heaviness, low heart rate and low blood pressure Primary Care Provider: Shelton Melendez MD This patient is a 73-year-old female with a history of HTN, CKD stage IV, psoriatic arthritis on chronic steroids, hypothyroidism, PUD, allergies and questionable asthma, superficial thrombophlebitis, severe cervical spine stenosis with a C6-C7 and T1 suspected meningioma, and IBS, who presents to the ER with a complaint of feeling lightheaded and almost passing out today when she got up to go to the bathroom. At the time, she had chest heaviness that was associated with this and reports that she took her blood pressure and heart rate at home and they were both much lower than usual with a heart rate of 42 and a blood pressure systolic of 110. This resolved with resting. It happened again in the ER and her blood pressure dropped to the 80s systolic again with associated chest heaviness when she got up to go to the bathroom. She denies any recent illnesses and has been taking p.o. like usual. She has some mild associated nausea but has not been vomiting. She denies diarrhea. She has not had any changes recently in her medications. In the ER, her renal function was at baseline with creatinine of 2.1, her initial troponin was negative. Her ECG showed a sinus bradycardia with a rate of 47 with T wave inversions in leads I and aVL. Her TSH was normal at 2.31. She was given 1 L of normal saline. She will be admitted for presyncope with bradycardia and hypotension with associated chest pain. Allergies Allergy/AdvReac Type Severity Reaction Status Date / Time codeine Allergy Severe Anaphylaxis Verified 07/26/18 16:54 capsaicin Allergy Intermediate CREATINE Verified 07/26/18 16:54 ELEVATION diclofenac Allergy Intermediate CREATINE Verified 07/26/18 16:54 ELEVATION Diclopak Allergy Intermediate CREATINE Verified 04/06/17 09:34 ELEVATION isopropyl alcohol Allergy Intermediate CREATINE Verified 07/26/18 16:54 ELEVATION propylene glycol Allergy Intermediate CREATINE Verified 07/26/18 16:54 ELEVATION celecoxib [From Celebrex] Allergy Mild Rash Verified 07/26/18 16:54 Iodinated Contrast- Oral and Allergy Mild RASH Verified 07/26/18 16:54 IV Dye Sulfa (Sulfonamide Allergy Mild RASH TO Verified 07/26/18 16:54 Antibiotics) SULFA DRUGS tetracycline Allergy Mild RASH Verified 07/26/18 16:54 Home Medications Home Medications Medication Instructions Recorded Confirmed Type apremilast [Otezla] 30 mg PO HS 07/26/18 07/26/18 History aspirin 81 mg PO HS 07/26/18 07/26/18 History azelastine 2 spray INTRANASAL DAILY 07/26/18 07/26/18 History benzonatate 100 mg PO BID PRN 07/26/18 07/26/18 History calcipotriene 1 applic TOPICAL BID 07/26/18 07/26/18 History calcium phos-vit D3-mag oxide 1 tab PO QAM 07/26/18 07/26/18 History [Posture-D (with magnesium)] cetirizine [Zyrtec] 10 mg PO QAM 07/26/18 07/26/18 History cholecalciferol (vitamin D3) 1,000 unit PO 07/26/18 07/26/18 History [Vitamin D3] clobetasol 1 applic TOPICAL DAILY PRN 07/26/18 07/26/18 History dicyclomine 20 mg PO TID PRN 07/26/18 07/26/18 History diltiazem HCl 240 mg PO DAILY 07/26/18 07/26/18 History duloxetine 60 mg PO DAILY 07/26/18 07/26/18 History levalbuterol HCl 0.63 mg INHALATION Q4 PRN 07/26/18 07/26/18 History levothyroxine 75 mcg PO DAILY 07/26/18 07/26/18 History magnesium oxide 800 mg PO DAILY 07/26/18 07/26/18 History nitroglycerin 1 - 2 spray SUBLINGUAL DIRECTED 07/26/18 07/26/18 History PRN omega [id number]-fish oil [Fish Oil] 1,000 mg PO BID 07/26/18 07/26/18 History pantoprazole [Protonix] 40 mg PO DAILYBB 07/26/18 07/26/18 History potassium chloride [Klor-Con M20] 20 meq PO BID 07/26/18 07/26/18 History prednisone 5 mg PO HS 07/26/18 07/26/18 History spironolactone 25 mg PO BID 07/26/18 07/26/18 History tacrolimus 1 applic TOPICAL BID 07/26/18 07/26/18 History triamcinolone acetonide 1 applic TOPICAL BID PRN 07/26/18 07/26/18 History Past Med/Surg History Medical History Knee pain (Chronic) Osteoarthritis, knee (Chronic) Degenerative arthritis of knee, bilateral (Resolved) Bronchitis (Resolved) Acute bronchitis (Resolved) Failure of outpatient treatment (Inactive) Acute laryngitis (Resolved) GERD (gastroesophageal reflux disease) (Chronic) Laryngitis (Resolved) Lumbar stenosis with neurogenic claudication (Resolved) Schatzki's ring (Resolved) CKD (chronic kidney disease) stage 4, GFR 15-29 ml/min Cervical spinal stenosis Chronic steroid use Environmental allergies HTN (hypertension), benign Hypothyroidism Irritable bowel syndrome Peptic ulcer disease Psoriatic arthropathy Spinal meningioma Surgical History H/O thyroidectomy (Chronic) History of knee surgery (Chronic) History of back surgery (Chronic) History of arthroscopy of right shoulder History of cataract extraction History of cholecystectomy History of foot surgery History of lumbar fusion History of tonsillectomy History of total abdominal hysterectomy and bilateral salpingo-oophorectomy History of total knee arthroplasty Family History Other Family history non-contributory Social History Preferred Language: Lao Communication Ability: Effective Data Transcriber Required: No Beliefs That Will Affect Care: None marital status: Current Living Situation: Spouse 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 Other Information That Helps Us Care for You: No Feels Safe at Home: Yes Safety Concerns: Feels Safe At This Time Smoking Status: Never smoker Hx Alcohol Use: No Hx Substance Use: No Review of Systems All systems reviewed & are unremarkable except as noted in HPI & below Physical Exam Vital Signs (Past 24 Hours): Last Vital Signs Temp 36.6 C 07/26/18 15:53 Pulse 47 L 07/26/18 19:32 Resp 20 07/26/18 19:32 BP 129/73 07/26/18 19:32 Pulse Ox 99 07/26/18 19:32 Constitutional: WD/WN, vitals as above Eyes: PERRL, conjunctivae normal, anicteric sclerae ENMT: external ear and nose normal, oropharynx normal Neck: trachea midline, no thyromegaly Respiratory: normal respiratory effort, lungs clear to auscultation Cardiovascular: RRR, no murmur, no edema Vessels: normal peripheral pulses; no JVD and no carotid bruit Gastrointestinal (Abdomen): normal bowel sounds, soft, nontender, no hepatosplenomegaly Musculoskeletal: Extremities: extremities normal to inspection; no cyanosis and no clubbing Skin: no rashes, warm and dry Neurologic: moves all extremities and awake; no focal motor deficits Psychiatric: A+Ox3, euthymic affect Results & Data Laboratory Results 07/26/18 07/26/18 07/26/18 Range/Units 21:56 17:35 16:09 WBC (4.8-10.8) K/uL RBC (4.2-5.4) M/uL Hgb (12.0-16.0) g/dL Hct (37-47) % MCV (80-100) fL MCH (25-34) pg MCHC (32-36) g/dL RDW Std Deviation (36.4-46.3) fL RDW Coeff of Amrita (11.5-14.5) % Plt Count (130-400) K/uL MPV (7.4-10.4) fL Immature Gran % (Auto) % Neut % (Auto) % Lymph % (Auto) % [place] % (Auto) % Eos % (Auto) % Baso % (Auto) % Immature Gran # (Auto) (0.00-0.02) K/uL Neut # (Auto) (1.4-6.5) K/uL Lymph # (Auto) (1.2-3.4) K/uL [place] # (Auto) (0.11-0.59) K/uL Eos # (Auto) (0-0.5) K/uL Baso # (Auto) (0-0.2) K/uL Sodium 137 (136-145) mmol/L Potassium 4.1 (3.5-5.1) mmol/L Chloride 105 (98-107) mmol/L Carbon Dioxide 22 (21-32) mmol/L Anion Gap 10.0 (3-11) BUN 33 H (7-18) mg/dl Creatinine 2.19 H (0.6-1.2) mg/dl Est Cr Clr Drug Dosing Not Reportable Est GFR ( Amer) 25.3 Est GFR (Non-Af Amer) 21.8 BUN/Creatinine Ratio 15.0 (10-20) Glucose 146 H (70-99) mg/dl Calcium 9.0 (8.5-10.1) mg/dl Magnesium 1.9 (1.8-2.4) mg/dl Total Bilirubin 0.4 (0.2-1) mg/dl AST 17 (15-37) U/L ALT 22 (12-78) U/L Alkaline Phosphatase 102 (45-117) U/L Troponin I < 0.015 < 0.015 (0-0.045) ng/ml Total Protein 7.1 (6.4-8.2) gm/dl Albumin 3.1 L (3.4-5.0) gm/dl Globulin 4.0 (2.5-4.0) gm/dl Albumin/Globulin Ratio 0.8 L (0.9-2) TSH 2.310 (0.300-4.500) uIu/ml Urine Color Yellow Urine Appearance Clear (Clear) Urine pH 6.0 (4.5-7.5) Ur Specific [place] 1.009 (1.000-1.030) Urine Protein Negative (Negative) Urine Glucose (UA) Negative (Negative) Urine Ketones Negative (Negative) Urine Blood Negative (Negative) Urine Nitrite Negative (Negative) Urine Bilirubin Negative (Negative) Urine Urobilinogen Negative (Negative) Ur Leukocyte Esterase Negative (Negative) 07/26/18 Range/Units 16:09 WBC 5.47 (4.8-10.8) K/uL RBC 4.14 L (4.2-5.4) M/uL Hgb 12.0 (12.0-16.0) g/dL Hct 38.0 (37-47) % MCV 91.8 (80-100) fL MCH 29.0 (25-34) pg MCHC 31.6 L (32-36) g/dL RDW Std Deviation 54.0 H (36.4-46.3) fL RDW Coeff of Amrita 16.2 H (11.5-14.5) % Plt Count 278 (130-400) K/uL MPV 10.9 H (7.4-10.4) fL Immature Gran % (Auto) 0.5 % Neut % (Auto) 68.1 % Lymph % (Auto) 24.3 % [place] % (Auto) 5.1 % Eos % (Auto) 1.8 % Baso % (Auto) 0.2 % Immature Gran # (Auto) 0.03 H (0.00-0.02) K/uL Neut # (Auto) 3.72 (1.4-6.5) K/uL Lymph # (Auto) 1.33 (1.2-3.4) K/uL [place] # (Auto) 0.28 (0.11-0.59) K/uL Eos # (Auto) 0.10 (0-0.5) K/uL Baso # (Auto) 0.01 (0-0.2) K/uL Sodium (136-145) mmol/L Potassium (3.5-5.1) mmol/L Chloride (98-107) mmol/L Carbon Dioxide (21-32) mmol/L Anion Gap (3-11) BUN (7-18) mg/dl Creatinine (0.6-1.2) mg/dl Est Cr Clr Drug Dosing Est GFR ( Amer) Est GFR (Non-Af Amer) BUN/Creatinine Ratio (10-20) Glucose (70-99) mg/dl Calcium (8.5-10.1) mg/dl Magnesium (1.8-2.4) mg/dl Total Bilirubin (0.2-1) mg/dl AST (15-37) U/L ALT (12-78) U/L Alkaline Phosphatase (45-117) U/L Troponin I (0-0.045) ng/ml Total Protein (6.4-8.2) gm/dl Albumin (3.4-5.0) gm/dl Globulin (2.5-4.0) gm/dl Albumin/Globulin Ratio (0.9-2) TSH (0.300-4.500) uIu/ml Urine Color Urine Appearance (Clear) Urine pH (4.5-7.5) Ur Specific [place] (1.000-1.030) Urine Protein (Negative) Urine Glucose (UA) (Negative) Urine Ketones (Negative) Urine Blood (Negative) Urine Nitrite (Negative) Urine Bilirubin (Negative) Urine Urobilinogen (Negative) Ur Leukocyte Esterase (Negative) Diagnostic Findings XR chest 1V portable HISTORY: 73 years-old Female weakness acute weakness COMPARISON: Chest radiograph 06/03/2017 TECHNIQUE: Portable AP view of the chest FINDINGS: Cardiac silhouette is enlarged, unchanged. No pneumothorax, pleural effusion, focal airspace consolidation or overt pulmonary edema. Degenerative changes are seen about the shoulders and spine. Remote posttraumatic or postsurgical changes of the distal right clavicle. IMPRESSION: Cardiomegaly without acute process. ECG Rhythm: sinus bradycardia (Rate 47) Findings: + T-wave inversion (In leads I and aVL) Code Status & VTE Plan Code Status Full code VTE Prophylaxis Plan VTE Prophylaxis will be ordered: Yes (1) Chest pain Chest pain type: unspecified Qualified Code(s): R07.9 - Chest pain, unspecified
[2018-07-26] MEDS ORDERED: DICYCLOMINE HCL 20 MG TAB PO PRN (21:18)
[2018-07-26] MEDS ORDERED: NITROGLYCERIN 60 SPRAYS/4.9 GM SPRAY SL PRN (21:18)
[2018-07-26] MEDS ORDERED: BENZONATATE 100 MG CAPSULE PO PRN (21:18)
[2018-07-26] MEDS ORDERED: LEVALBUTEROL HCL 0.63 MG/3 ML NEB INH PRN (21:18)
[2018-07-26] MEDS ORDERED: ACETAMINOPHEN 325 MG TAB PO PRN (21:18)
[2018-07-26] MEDS ORDERED: TRIAMCINOLONE ACET 0.025% CR 15 GM TUBE TOP PRN (21:18)
[2018-07-26] MEDS ORDERED: ONDANSETRON INJ 2 MG/ML 2 ML VIAL IV PRN (21:18)
[2018-07-26] MEDS ORDERED: predniSONE 5 MG TAB PO SCH (22:00)
[2018-07-26] MEDS: SODIUM CHLORIDE 0.9% 1000ML 1,000 ML IV SCH (22:16)
[2018-07-26] MEDS: HEPARIN SOD 5,000 UNIT/0.5 ML VIAL SQ SCH (23:18)
[2018-07-26] MEDS: [UNRECOGNIZED DRUG - OTHER] SCH (23:42)
[2018-07-27] MEDS ORDERED: LEVOTHYROXINE SODIUM 75 MCG TABLET PO SCH (06:00)
[2018-07-27] MEDS ORDERED: PANTOprazole 40 MG TAB PO SCH (06:30)
[2018-07-27] MEDS: [UNRECOGNIZED DRUG - OTHER] SCH (07:24)
[2018-07-27 07:58] LABS: Basophils # (auto) 0.01 K/uL (0-0.2); Basophils % (auto) 0.2 %; Eosinophils # (auto) 0.04 K/uL (0-0.5); Eosinophils % (auto) 0.7 %; Hematocrit (blood only) 34.9 % (37-47); Hemoglobin 11.5 g/dL (12.0-16.0); Immature Granulocytes # (auto) 0.02 K/uL (0.00-0.02); Immature Granulocytes % (auto) 0.3 %; Lymphocytes # (auto) 1.11 K/uL (1.2-3.4); Lymphocytes % (auto) 18.6 %; Mean Corpuscular Volume 91.6 fL (80-100); Mean Platelet Volume 10.1 fL (7.4-10.4); Monocytes # (auto) 0.21 K/uL (0.11-0.59); Monocytes % (auto) 3.5 %; Neutrophils # (auto) 4.57 K/uL (1.4-6.5); Neutrophils % (auto) 76.7 %; Platelet Count 250 K/uL (130-400); RDW Standard Deviation 53.4 fL (36.4-46.3); Red Blood Count 3.81 M/uL (4.2-5.4); White Blood Count 5.96 K/uL (4.8-10.8)
[2018-07-27 08:37] LABS: BUN Creatinine Ratio 16.5 (10-20); Calcium 8.5 mg/dl (8.5-10.1); Creatinine Clr Calc Pharmacy 30.6 ml/min; Est GFR (Non-African American) 23.3; Magnesium 1.9 mg/dl (1.8-2.4); Potassium 4.2 mmol/L (3.5-5.1)
[2018-07-27] MEDS: HEPARIN SOD 5,000 UNIT/0.5 ML VIAL SQ SCH (08:50)
[2018-07-27] MEDS ORDERED: CETIRIZINE HCL 10 MG TABLET PO SCH (09:00)
[2018-07-27] MEDS ORDERED: DULOXETINE HCL 60 MG CAP PO SCH (09:00)
[2018-07-27] MEDS ORDERED: MAGNESIUM OXIDE 400 MG TAB PO SCH (09:00)
[2018-07-27] MEDS: SODIUM CHLORIDE 0.9% 1000ML 1,000 ML IV SCH (10:54)
--- NOTE | 2018-07-27 11:04 | Cardiology Consultation ---
Date of Consultation July 27, 2018 Assessment & Plan (1) Chest pain: The patient's description of chest discomfort is likely related to her known reflux esophagitis. This occurred while she was completely supine. She does not experience exertional chest symptoms. She had normal coronary arteries at the time of her last catheterization, and had a normal dobutamine stress test in May 2017. Fortunately, 3 separate troponin I levels were undetectable. No further cardiac evaluation necessary at this time. (2) Near syncope: Suspect this was related to her relative hypotension along with her ongoing therapy with spironolactone and long-acting diltiazem. Those medications have been placed on hold. (3) Bradycardia: Suspect her bradycardia related to her long-acting diltiazem. Could consider a change to amlodipine as her antihypertensive medication. (4) Essential hypertension: As above, her spironolactone and long-acting diltiazem have been placed on hold. Could consider use of amlodipine as her antihypertensive. History of Present Illness Reason for Consultation: Mrs. Vergara is a 73-year-old female admitted yesterday with presyncope, bradycardia, hypotension, and a chest pain syndrome. This consisted was ordered to assist in her cardiac management. The patient was in her usual state of health until yesterday morning. She stood up to walk to the bathroom and noted significant dizziness. She sat down, and her symptoms resolved. She medially checked her blood pressure and noted her systolic pressure to be 110 a pulse of 42 beats per minute. The patient then laid down for total of 30 minutes. For approximately 15-20 minutes of that time, she noticed a vague substernal chest burning typical of her reflux esophagitis. The patient Re checked her blood pressure noted to be 80/60. She proceeded to the emergency room for further care. On arrival here, the patient had an unremarkable workup including an undetectable troponin I level. She was given 1 L of fluid and hospitalization was recommended. The patient has never known of a cardiac event. She has had 2 cardiac catheterizations, the most recent of which was performed in July 2007. She had no coronary artery disease at that time. She did undergo a dobutamine stress echocardiogram last May which showed no evidence of myocardial ischemia. The patient has never experienced exertional angina pectoris or limiting dyspnea. She further denies syncope, PND, orthopnea, palpitations, lower e xtremity edema, and claudication. The patient follows blood pressures and heart rates routinely at home. Her average blood pressure is 140/80, and her pulse is typically in the 50s. Currently, patient is resting comfortably in bed without complaints. She has axis for hospital discharge. Past medical history 1. Hypertension 2. Normal coronary arteries-July 2007 3. Negative DSE-May 2017 4. Chronic renal failure 5. Peptic ulcer disease next 6. Reflux esophagitis 7. Hypothyroidism 8. [id number] 9. Ureteral bowel syndrome 10. Schatzki's ring 11. Psoriatic arthritis 12. Chronic steroids 13. Superficial thrombophlebitis 14. DJD 15. Cholecystectomy 16. Thyroidectomy 17. Lumbar fusion 18. Left TKR 19. Tonsillectomy 20. JUSTIN/BSO Social history , lives with her . 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 No tobacco or alcohol Family history Mother at 97 from old age. Father in his 70s from lung carcinoma No early coronary artery disease Review of systems A 10 point review of systems was undertaken and negative except for that described above. Attending Physician: Cleopatra Chicas MD Allergies Allergy/AdvReac Type Severity Reaction Status Date / Time codeine Allergy Severe Anaphylaxis Verified 07/26/18 16:54 capsaicin Allergy Intermediate CREATINE Verified 07/26/18 16:54 ELEVATION diclofenac Allergy Intermediate CREATINE Verified 07/26/18 16:54 ELEVATION Diclopak Allergy Intermediate CREATINE Verified 04/06/17 09:34 ELEVATION isopropyl alcohol Allergy Intermediate CREATINE Verified 07/26/18 16:54 ELEVATION propylene glycol Allergy Intermediate CREATINE Verified 07/26/18 16:54 ELEVATION celecoxib [From Celebrex] Allergy Mild Rash Verified 07/26/18 16:54 Iodinated Contrast- Oral and Allergy Mild RASH Verified 07/26/18 16:54 IV Dye Sulfa (Sulfonamide Allergy Mild RASH TO Verified 07/26/18 16:54 Antibiotics) SULFA DRUGS tetracycline Allergy Mild RASH Verified 07/26/18 16:54 Home Medications Home Medications Medication Instructions Recorded Confirmed Type apremilast [Otezla] 30 mg PO HS 07/26/18 07/26/18 History aspirin 81 mg PO HS 07/26/18 07/26/18 History azelastine 2 spray INTRANASAL DAILY 07/26/18 07/26/18 History benzonatate 100 mg PO BID PRN 07/26/18 07/26/18 History calcipotriene 1 applic TOPICAL BID 07/26/18 07/26/18 History calcium phos-vit D3-mag oxide 1 tab PO QAM 07/26/18 07/26/18 History [Posture-D (with magnesium)] cetirizine [Zyrtec] 10 mg PO QAM 07/26/18 07/26/18 History cholecalciferol (vitamin D3) 1,000 unit PO HS 07/26/18 07/26/18 History [Vitamin D3] clobetasol 1 applic TOPICAL DAILY PRN 07/26/18 07/26/18 History dicyclomine 20 mg PO TID PRN 07/26/18 07/26/18 History diltiazem HCl 240 mg PO DAILY 07/26/18 07/26/18 History duloxetine 60 mg PO DAILY 07/26/18 07/26/18 History levalbuterol HCl 0.63 mg INHALATION Q4 PRN 07/26/18 07/26/18 History levothyroxine 75 mcg PO DAILY 07/26/18 07/26/18 History magnesium oxide 800 mg PO DAILY 07/26/18 07/26/18 History nitroglycerin 1 - 2 spray SUBLINGUAL DIRECTED 07/26/18 07/26/18 History PRN omega 7-[id number]-fish oil [Fish Oil] 1,000 mg PO BID 07/26/18 07/26/18 History pantoprazole [Protonix] 40 mg PO DAILYBB 07/26/18 07/26/18 History potassium chloride [Klor-Con M20] 20 meq PO BID 07/26/18 07/26/18 History prednisone 5 mg PO HS 07/26/18 07/26/18 History spironolactone 25 mg PO BID 07/26/18 07/26/18 History tacrolimus 1 applic TOPICAL BID 07/26/18 07/26/18 History triamcinolone acetonide 1 applic TOPICAL BID PRN 07/26/18 07/26/18 History Patient History Medical History Knee pain (Chronic) Osteoarthritis, knee (Chronic) Degenerative arthritis of knee, bilateral (Resolved) Bronchitis (Resolved) Acute bronchitis (Resolved) Failure of outpatient treatment (Inactive) Acute laryngitis (Resolved) GERD (gastroesophageal reflux disease) (Chronic) Laryngitis (Resolved) Lumbar stenosis with neurogenic claudication (Resolved) Schatzki's ring (Resolved) CKD (chronic kidney disease) stage 4, GFR 15-29 ml/min Cervical spinal stenosis Chronic steroid use Environmental allergies HTN (hypertension), benign Hypothyroidism Irritable bowel syndrome Peptic ulcer disease Psoriatic arthropathy Spinal meningioma Surgical History H/O thyroidectomy (Chronic) History of knee surgery (Chronic) History of back surgery (Chronic) History of arthroscopy of right shoulder History of cataract extraction History of cholecystectomy History of foot surgery History of lumbar fusion History of tonsillectomy History of total abdominal hysterectomy and bilateral salpingo-oophorectomy History of total knee arthroplasty Family History Other Family history non-contributory Social History Preferred Language: [place] Communication Ability: Effective Surgical Aide Required: No Beliefs That Will Affect Care: None marital status: Current Living Situation: Spouse 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 HEENT exam is negative. Neck is supple with full carotid upstrokes. There are no carotid bruits. Jugular venous pressure is flat at 90. There is no thyromegaly. Cardiovascular exam reveals a regular rhythm with a normal S1 and S2. No S3, S4, or murmurs are noted. Lungs are clear without rales, rhonchi, or wheezes. Abdomen is soft and nontender without bruits. Extremities reveal intact radial artery and posterior tibial pulses bilaterally. There is no peripheral edema. Results & Data Laboratory Results CBC notes hemoglobin 11.5, crit 34.9, white count 5.96, platelet count [id number]. Electrolytes show sodium of 141, potassium 4.2, chloride 1 await, bicarb 25, BUN 34, creatinine 2.07, and glucose of 117. Magnesium level is normal at 1.9. Three troponin I levels are undetectable less than 0.015. Diagnostic Findings EKG notes normal sinus rhythm and left ventricle hypertrophy with repolarization changes. Chest x-ray shows cardiomegaly. alarm security or surveillance monitor is benign. (1) Chest pain Chest pain type: unspecified Qualified Code(s): R07.9 - Chest pain, unspecified
--- NOTE | 2018-07-27 16:34 | Discharge Summary ---
Date of Service July 27, 2018 Admission HPI Per Admitting Provider This patient is a 73-year-old female with a history of HTN, CKD stage IV, psoriatic arthritis on chronic steroids, hypothyroidism, PUD, allergies and questionable asthma, superficial thrombophlebitis, severe cervical spine stenosis with a C6-C7 and T1 suspected meningioma, and IBS, who presents to the ER with a complaint of feeling lightheaded and almost passing out today when she got up to go to the bathroom. At the time, she had chest heaviness that was associated with this and reports that she took her blood pressure and heart rate at home and they were both much lower than usual with a heart rate of 42 and a blood pressure systolic of 110. This resolved with resting. It happened again in the ER and her blood pressure dropped to the 80s systolic again with associated chest heaviness when she got up to go to the bathroom. She denies any recent illnesses and has been taking p.o. like usual. She has some mild associated nausea but has not been vomiting. She denies diarrhea. She has not had any changes recently in her medications. In the ER, her renal function was at baseline with creatinine of 2.1, her initial troponin was negative. Her ECG showed a sinus bradycardia with a rate of 47 with T wave inversions in leads I and aVL. Her TSH was normal at 2.31. She was given 1 L of normal saline. She will be admitted for presyncope with bradycardia and hypotension with associated chest pain. Principal Diagnosis Near Syncope, bradycardia, Orthostasis, Chest pain Discharge Exam Vitals reviewed, Orthostatic vitals negative Tele with SB in the 50s-NSR in the 60s Constitutional WD/WN, vitals as above Eyes PERRL, conjunctivae normal, anicteric sclerae ENMT external ear and nose normal, oropharynx normal Neck trachea midline, no thyromegaly Respiratory normal respiratory effort, lungs clear to auscultation Cardiovascular RRR, no murmur, no edema Vessels: normal peripheral pulses; no JVD and no carotid bruit Gastrointestinal (Abdomen) normal bowel sounds, soft, nontender, no hepatosplenomegaly Musculoskeletal Extremities: extremities normal to inspection; no cyanosis and no clubbing Skin no rashes, warm and dry Neurologic moves all extremities and awake; no focal motor deficits Psychiatric A+Ox3, euthymic affect Discharge Data Allergies Allergy/AdvReac Type Severity Reaction Status Date / Time codeine Allergy Severe Anaphylaxis Verified 07/26/18 16:54 capsaicin Allergy Intermediate CREATINE Verified 07/26/18 16:54 ELEVATION diclofenac Allergy Intermediate CREATINE Verified 07/26/18 16:54 ELEVATION Diclopak Allergy Intermediate CREATINE Verified 04/06/17 09:34 ELEVATION isopropyl alcohol Allergy Intermediate CREATINE Verified 07/26/18 16:54 ELEVATION propylene glycol Allergy Intermediate CREATINE Verified 07/26/18 16:54 ELEVATION celecoxib [From Celebrex] Allergy Mild Rash Verified 07/26/18 16:54 Iodinated Contrast- Oral and Allergy Mild RASH Verified 07/26/18 16:54 IV Dye Sulfa (Sulfonamide Allergy Mild RASH TO Verified 07/26/18 16:54 Antibiotics) SULFA DRUGS tetracycline Allergy Mild RASH Verified 07/26/18 16:54 Consultations Cardiology Procedures Performed ECHO-grade 1 diastolic dysfunction, mild concentric LVH Ordered Studies CXR Hospital Course (1) Near syncope: This patient is a 73-year-old female with a history of HTN, CKD stage IV, psoriatic arthritis on chronic steroids, hypothyroidism, PUD, allergies and questionable asthma, superficial thrombophlebitis, severe cervical spine stenosis with a C6-C7 and T1 suspected meningioma, and IBS, who presents to the ER with a complaint of feeling lightheaded and almost passing out today when she got up to go to the bathroom. At the time, she had chest heaviness that was associated with this and reports that she took her blood pressure and heart rate at home and they were both much lower than usual with a heart rate of 42 and a blood pressure systolic of 110. This resolved with resting. It happened again in the ER and her blood pressure dropped to the 80s systolic again with associated chest heaviness when she got up to go to the bathroom. She denies any recent illnesses and has been taking p.o. like usual. She has some mild associated nausea but has not been vomiting. She denies diarrhea. She has not had any changes recently in her medications. In the ER, her renal function was at baseline with creatinine of 2.1, her initial troponin was negative. Her ECG showed a sinus bradycardia with a rate of 47 with T wave inversions in leads I and aVL. Her TSH was normal at 2.31. She was given 1 L of normal saline in the ER She was admitted for presyncope with bradycardia, as well as hypotension with associated chest pain. Likely secondary to orthostasis-which could be due to dehydration as she is taking diuretics, could be relative adrenal insufficiency given chronic steroid use. 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 -Consult cardiology for further evaluation-nothing further needs to be done here. ECHO with grade 1 diastolic dysfunction and mild LVH, no valvular disease (2) Chest pain: Chest heaviness associated only with low blood pressures and orthostasis, but then changed her story and said it only occurred after lying flat and thinks it was related to her not eating much on the day of admission, possibly GI related No further CP since admission ECG with T wave inversions in 1 and aVL but Victoriano thinks this is LVH with repol changes Had a dobutamine stress echo in 05/2017 that was negative -Trended serial troponins here and were all negative No further cardiac eval needed Likely GERD related (3) Orthostasis: As above, could be secondary to diuretic use and/or relative adrenal insufficiency -Received IV fluids and held aldactone-resolved (4) Bradycardia: Was secondary to diltiazem -HR was in the 40s on admission with near syncope HR improved with holding diltiazem, HR in 50s-60s on day of dc -dc Diltiazem permanently and start amlodipine 5mg daily instead (5) Peptic ulcer disease: Continue PPI Is on chronic prednisone which puts her at high risk (6) Irritable bowel syndrome: Continue Bentyl as needed (7) Hypothyroidism: TSH here is normal at 2.31 -Continue home levothyroxine (8) Spinal meningioma: Follow as an outpatient (9) HTN (hypertension), benign: Blood pressures on the low side here on admission in the 80s systolic with standing and then improved -starting amlodipine as above -dc diltiazem -hold aldactone and restart if BP rises after dc (10) CKD (chronic kidney disease) stage 4, GFR 15-29 ml/min: Creatinine here is at baseline at 2.1 -Avoid nephrotoxins -Renally dose all medications when appropriate Follows with Nephrology outpt (11) Chronic steroid use: Is on prednisone 5 mg daily for psoriatic arthropathy -continue prednisone 5mg daily (12) Psoriatic arthropathy: Continue prednisone and Otezla from home (13) DVT prophylaxis: Heparin SQ was provided Disposition-stable for dc to home Total Time Total Time Spent Total Time Spent (In Minutes): >30 min Total Time Includes: Examination of the Patient, Discharge Planning, Medication Reconciliation and Communication With Other Providers (Cardiology) Discharge Plan Discharge Items Patient Disposition: Home - Self-Care Reason For Visit: CHEST PAIN, BRADYCARDIA, HYPOTENSION Discharge Diagnosis: Chest pain, bradycardia, Orthostatic hypotension Condition: Good Discharge Goals: Diagnostic testing, Improve disease control and Therapeutic intervention Activity: Resume your previous activity Lifting: Gradually increase as tolerated Bathing: No limitations Exercise/Sports: Gradually increase as tolerated Driving/Machine Use: No limitations Non-emergency contact: Primary Care Provider and Clip Baker Call non-emergency contact if: you have any medication questions and your symptoms worsen Follow-up/Referrals: Shelton Melendez MD [Primary Care Provider] - 08/04/18 4:15 pm (Please, follow up with Dr. Shelton Melendez on ThursdayAugust 04 at 4:15 pm. *If you need to change this appointment, call the office at [phone].) Diet: Heart Healthy Add Provider Instructions: You were admitted with lightheadedness, and low heart rate and low blood pressure, along with chest pain. Your chest pain is likely secondary to acid reflux. Your low heart rate was from the diltiazem and this was stopped. You were hydrated with IVFs and your aldactone was held. Your blood pressure will be treated now with a new medicine called amlodipine 5mg once daily in the morning. Please continue to check your blood pressure daily and if gets higher than 140/90, you can restart your aldactone twice daily as before. Please follow up with your PCP as scheduled for you. Prescriptions: New amlodipine 5 mg tablet 5 mg PO DAILY Qty: 30 RF: 0 Continued cetirizine [Zyrtec] 10 mg Tablet 10 mg PO QAM RF: 0 levalbuterol HCl 0.63 mg/3 mL Solution For Nebulization 0.63 mg INHALATION Q4 PRN (Reason: Shortness Of Breath Or Wheezing) RF: 0 prednisone 5 mg Tablet 5 mg PO HS RF: 0 clobetasol 0.05 % Cream 1 applic TOPICAL DAILY PRN (Reason: NEEDED) RF: 0 levothyroxine 75 mcg Tablet 75 mcg PO DAILY RF: 0 triamcinolone acetonide 0.025 % Cream 1 applic TOPICAL BID PRN (Reason: PSORIASIS) RF: 0 dicyclomine 20 mg Tablet 20 mg PO TID PRN (Reason: Abdominal Discomfort) RF: 0 benzonatate 100 mg Capsule 100 mg PO BID PRN (Reason: Cough) RF: 0 pantoprazole [Protonix] 40 mg Tablet,Delayed Release (Dr/Ec) 40 mg PO DAILYBB RF: 0 calcipotriene 0.005 % Cream 1 applic TOPICAL BID RF: 0 tacrolimus 0.03 % Ointment 1 applic TOPICAL BID RF: 0 nitroglycerin 400 mcg/spray [place],Non-Aerosol 1 - 2 spray Sublingual DIRECTED PRN (Reason: ESOPHAGEAL SPASMS) RF: 0 aspirin 81 mg Tablet,Chewable 81 mg PO HS RF: 0 azelastine 137 mcg (0.1 %) Aerosol,[place] 2 spray INTRANASAL DAILY RF: 0 cholecalciferol (vitamin D3) [Vitamin D3] 1,000 unit Capsule 1,000 unit PO HS RF: 0 duloxetine 60 mg Capsule,Delayed Release(Dr/Ec) 60 mg PO DAILY RF: 0 omega 4-bti-mjf-fish oil [Fish Oil] 1,000 mg (120 mg-180 mg) Capsule 1,000 mg PO BID RF: 0 Otezla 30 mg Tablet 30 mg PO HS RF: 0 Posture-D (with magnesium) 600 mg calcium- 500 unit-50 mg Tablet 1 tab PO QAM RF: 0 magnesium oxide 400 mg magnesium Tablet 800 mg PO DAILY RF: 0 Changed potassium chloride [Klor-Con M20] 20 mEq Tablet,Er Particles/Crystals 20 meq PO QAM Qty: 0 RF: 0 Discontinued diltiazem HCl 240 mg Capsule,Extended Release 24 Hr 240 mg PO DAILY RF: 0 spironolactone 25 mg Tablet 25 mg PO BID RF: 0 Stand-Alone Forms: [facility] Discharge Orders: Discharge Order (Routine); Ordered 07/27/18 Ordered By: Cleopatra Chicas Admission Data Admit Date/Time: 07/26/18 19:57 Attending Provider: Cleopatra Chicas Admit Provider: Cleopatra Chicas Primary Care Provider: Shelton Melendez Other Providers: Cleopatra Chicas ; Pato Vergara Service: Telemetry Medical Other Pending Studies at Discharge: No
[2018-07-27] MEDS ORDERED: ASPIRIN 81 MG ECTAB PO SCH (21:00)
== END 2018-07-27 17:05 | disposition home or self-care (01) ==
LOC: 2S 15:49 → ED 15:49 → 2S 21:02

== ENCOUNTER 2018-09-08 07:19 | Inpatient (IN) ==
--- NOTE | 2018-08-24 11:30 | Anesthesiology Consultation ---
Date of Service August 24, 2018 Assessment & Plan (1) Encounter for pre-operative examination: - Nephro= 07/02/18= CKD stage IV. Baseline GFR 25. Kidney function "stable.. volume status and electrolyte balance are acceptable at this time.. will monitor." - PCP: 09/01/18: "BP under much better control." Plan for EGD to followup on esophageal dysmotility [s/p unremarkable EGD 09/02/18 at [facility]]. Aware of upcoming shoulder surgery. HGBA1C 7.2% (new diagnosis diabetes)- medication initiation discussed but patient declined at visit and wishes to monitor at this time (surgeon aware). Per updated PCP note: 09/07/18: "she has perioperative risk of 0.9-1.2% of cardiac complication with surgery. This represents low to moderate risk." - S/P EGD= 09/02/18= MAC sedation at [facility] - Check BSG AM DOS Chart Review Chart Review: Acceptable Risk for Surgery (pending evaluation of clinical status AM DOS) and Patient seen in Pre Admission Testing Teaching & Discussion Pre-Anesthesia Teaching/Discussion Notes: Instructed NPO after midnight before surgery,except medications with 15 cc of water. Medication instructions provided according to the PAT guidelines. History Surgery Operation Date: 09/08/18 09:40 Proposed Procedures p Left Total Shoulder Arthroplasty, Open Distal Clavical Excision, Excision Acromioclavicular Joint Spurs, Subacrominal Decompression, Rotator Cuff Repair, Biceps Tenodesis - Gavin Mas MD Height/Weight Height: 5 ft 11 in Weight: 97.9 kg Allergies Allergy/AdvReac Type Severity Reaction Status Date / Time codeine Allergy Severe Anaphylaxis Verified 09/02/18 14:13 capsaicin Allergy Intermediate CREATINE Verified 09/02/18 14:13 ELEVATION diclofenac Allergy Intermediate CREATINE Verified 09/02/18 14:13 ELEVATION Diclopak Allergy Intermediate CREATINE Verified 04/06/17 09:34 ELEVATION isopropyl alcohol Allergy Intermediate CREATINE Verified 09/02/18 14:13 ELEVATION propylene glycol Allergy Intermediate CREATINE Verified 09/02/18 14:13 ELEVATION celecoxib [From Celebrex] Allergy Mild Rash Verified 09/02/18 14:13 Iodinated Contrast- Oral and Allergy Mild RASH Verified 09/02/18 14:13 IV Dye Sulfa (Sulfonamide Allergy Mild RASH TO Verified 09/02/18 14:13 Antibiotics) SULFA DRUGS tetracycline Allergy Mild RASH Verified 09/02/18 14:13 Medications Home Medications Medication Instructions Recorded Confirmed Last Taken Otezla 30 mg PO HS 07/26/18 09/02/18 08/26/18 Posture-D (with magnesium) 1 tab PO QAM 07/26/18 09/02/18 09/01/18 aspirin 81 mg PO HS 07/26/18 09/02/18 08/26/18 azelastine 2 spray INTRANASAL DAILY 07/26/18 09/02/18 09/02/18 08:30 benzonatate 100 mg PO BID PRN 07/26/18 09/02/18 09/01/18 21:00 calcipotriene 1 applic TOPICAL BID 07/26/18 09/02/18 08/06/18 cetirizine [Zyrtec] 5 mg PO BID 07/26/18 09/02/18 09/02/18 08:30 cholecalciferol (vitamin D3) 1,000 unit PO 07/26/18 09/02/18 09/01/18 [Vitamin D3] clobetasol 1 applic TOPICAL DAILY PRN 07/26/18 08/27/18 08/06/18 dicyclomine 20 mg PO TID PRN 07/26/18 09/02/18 09/02/18 08:30 duloxetine 60 mg PO QAM 07/26/18 09/02/18 09/02/18 08:30 levalbuterol HCl 0.63 mg INHALATION Q4 PRN 07/26/18 08/27/18 08/06/18 levothyroxine 75 mcg PO QA 07/26/18 09/02/18 09/02/18 07:00 magnesium oxide 800 mg PO DAILY 07/26/18 09/02/18 09/01/18 nitroglycerin 1 - 2 spray SUBLINGUAL DIRECTED 07/26/18 09/02/18 09/02/18 07:30 PRN omega 1-qoj-jmg-fish oil [Fish Oil] 1,000 mg PO BID 07/26/18 09/02/18 08/26/18 pantoprazole [Protonix] 40 mg PO DAILYBB 07/26/18 09/02/18 09/02/18 08:30 prednisone 5 mg PO HS 07/26/18 09/02/18 09/01/18 21:00 tacrolimus 1 applic TOPICAL BID 07/26/18 08/27/18 08/06/18 triamcinolone acetonide 1 applic TOPICAL BID PRN 07/26/18 08/27/18 08/06/18 potassium chloride [Klor-Con M20] 20 meq PO QAM #0 tab 07/27/18 09/02/18 09/02/18 08:30 folic acid 1 mg PO QAM 08/06/18 09/02/18 09/01/18 spironolactone 25 mg PO BID 08/06/18 09/02/18 09/02/18 08:30 amlodipine 5 mg PO QAM 08/18/18 08/27/18 Unknown nifedipine 20 mg PO AC 08/27/18 09/02/18 09/02/18 08:30 Past Family History Family History Other Family history non-contributory Past Anesthesia History No Hx of Anesthesia Complications and No Family Hx of Anesthesia Complications History of PONV No Motion Sickness Screening History of Motion Sickness: No Social History Smoking Status: Never smoker Do You Dip or Chew Tobacco: No Hx Alcohol Use: No Alcohol Intake Frequency Comment: 0 Hx Substance Use: No substance use type: does not use Exercise / Class Metabolic Activity II 4-5 Yardwork/Stairs/Walk up hill Review of Systems Patient denies chest pain, shortness of breath, dyspnea on exertion, cough, wheezing, palpitations. Physical Exam Vital Signs VITALS BP 124/74 P 74 TEMP 98.2 SP02 98%RA RESP 18 PHYSICAL Full neck and c-spine range of motion. Full TMJ range of motion. TMD 3.5 finger breaths Mallampati Score 1 Dentition: upper/lower partials Lungs: clear throughout to auscultation Cardiac: regular rate and rhythm, no murmurs noted Spine: normal Carotid arteries: negative bruit Extremities: no edema Large tongue Testing Electrocardiogram Date: 08/06/18 NSR at 76bpm. Moderate voltage criteria for LVH, may be normal variant. Chest X-Ray Date: 08/06/18 Cardiac silhouette mildly enlarged. Heterogeneity of lung parenchyma. No focal opacity. Chronic right AC joint widening. Echocardiogram Date: 07/27/18 EF 60-65%. No RWMA. Grade I DD. Mild cLVH. Mild LAD. Laboratory Results 08/24/18 11:56 Blood Type O Negative 08/24/18 11:56 Antibody Screen NEGATIVE 08/24/18 11:56 Hemoglobin A1c 7.2 % (4.5-5.6) H 08/24/18 11:56 Urine Color Dark Yellow 08/24/18 Unknown Urine Appearance Cloudy (Clear) H 08/24/18 Unknown Urine pH 5.0 (4.5-7.5) 08/24/18 Unknown Ur Specific [place] 1.024 (1.000-1.030) 08/24/18 Unknown Urine Protein Trace (Negative) H 08/24/18 Unknown Urine Glucose (UA) Negative (Negative) 08/24/18 Unknown Urine Ketones Trace (Negative) H 08/24/18 Unknown Urine Nitrite Negative (Negative) 08/24/18 Unknown Ur Leukocyte Esterase 2+ (Negative) H 08/24/18 Unknown Urine WBC (Auto) >30 /hpf (0-5) H 08/24/18 Unknown Urine RBC (Auto) 5-10 /hpf (0-4) H 08/24/18 Unknown U Hyaline Cast (Auto) 1-5 /lpf (0-5) 08/24/18 Unknown U Epithel Cells (Auto) >30 /lpf (0-5) H 08/24/18 Unknown Urine Bacteria (Auto) 2+ (Negative) H 08/24/18 Unknown 08/24/18 Unknown Urine Culture - Final Urine,Clean Catch Escherichia coli Surgeon made aware of positive UA* 08/24/18 GFR 26.4 (at baseline; nephro monitoring) 08/06/18 WBC 6.36 H/H 12.5/38.3 PLATELETS 310 PT 10.1 PTT 23.7 INR 1.0
--- NOTE | 2018-08-24 11:37 | PAT Medication Instructions ---
Medication Instructions Date of Service August 24, 2018 Home Medications Medication Instructions Recorded potassium chloride [Klor-Con M20] 20 meq PO QAM #0 tab 07/27/18 Otezla 30 mg PO HS Posture-D (with magnesium) 1 tab PO QAM aspirin 81 mg PO HS azelastine 2 spray INTRANASAL DAILY benzonatate 100 mg PO BID PRN calcipotriene 1 applic TOPICAL BID cetirizine [Zyrtec] 5 mg PO BID cholecalciferol (vitamin D3) 1,000 unit PO HS clobetasol 1 applic TOPICAL DAILY PRN dicyclomine 20 mg PO TID PRN duloxetine 60 mg PO QAM levalbuterol HCl 0.63 mg INHALATION Q4 PRN levothyroxine 75 mcg PO QAM magnesium oxide 800 mg PO DAILY nitroglycerin 1 - 2 spray SUBLINGUAL DIRECTED omega 2-uvr-etl-fish oil [Fish Oil] 1,000 mg PO BID pantoprazole [Protonix] 40 mg PO DAILYBB prednisone 5 mg PO HS tacrolimus 1 applic TOPICAL BID triamcinolone acetonide 1 applic TOPICAL BID PRN potassium chloride [Klor-Con M20] 20 meq PO QAM folic acid 1 mg PO QAM spironolactone 25 mg PO BID amlodipine 5 mg PO QAM Continue as directed nitroglycerin 1 - 2 spray SUBLINGUAL DIRECTED (if needed) ASK your prescriber and surgeon Otezla 30 mg PO HS STOP taking 2 weeks before surgery (or as soon as possible if surgery is within 2 weeks) omega 2-rxe-eyp-fish oil [Fish Oil] 1,000 mg PO BID STOP taking 24 hours before surgery calcipotriene 1 applic TOPICAL BID clobetasol 1 applic TOPICAL DAILY PRN tacrolimus 1 applic TOPICAL BID triamcinolone acetonide 1 applic TOPICAL BID PRN DO NOT take the morning of surgery benzonatate 100 mg PO BID PRN cetirizine [Zyrtec] 5 mg PO BID cholecalciferol (vitamin D3) 1,000 unit PO HS dicyclomine 20 mg PO TID PRN magnesium oxide 800 mg PO DAILY potassium chloride [Klor-Con M20] 20 meq PO QAM folic acid 1 mg PO QAM spironolactone 25 mg PO BID Take morning of surgery With a small sip of water, OTHERWISE NOTHING TO EAT OR DRINK AFTER MIDNIGHT: azelastine 2 spray INTRANASAL DAILY duloxetine 60 mg PO QAM levalbuterol HCl 0.63 mg INHALATION Q4 PRN (use if needed; please bring with you to hospital day of surgery if possible) levothyroxine 75 mcg PO QAM pantoprazole [Protonix] 40 mg PO DAILYBB amlodipine 5 mg PO QAM Other Notes If you have any questions please call us at [phone] or [phone] or [phone] or [phone]
[2018-08-24 12:21] LABS: Appearance Urine Cloudy (Clear); Bacteria Urine Automated 2+ (Negative); Bilirubin Urine Negative (Negative); Blood Urine 1+ (Negative); Color Urine Dark Yellow; Epithelial Cell Urine Auto >30 /lpf (0-5); Glucose Urine UA Negative (Negative); Ketones Urine Trace (Negative); Leukocyte Esterase Urine 2+ (Negative); Nitrite Urine Negative (Negative); Protein Urine Trace (Negative); Specific Gravity Urine 1.024 (1.000-1.030); Urobilinogen Urine Negative (Negative); WBC Urine Automated >30 /hpf (0-5)
[2018-08-24 12:43] LABS: Estimated Average Glucose 160 mg/dl; Hemoglobin A1C 7.2 % (4.5-5.6)
[2018-08-24 13:12] LABS: Albumin Level 3.2 gm/dl (3.4-5.0); BUN Creatinine Ratio 14.6 (10-20); Creatinine Clr Calc Pharmacy 31.1 ml/min; Est GFR (African American) 26.4; Est GFR (Non-African American) 22.8; Potassium 3.9 mmol/L (3.5-5.1)
--- NOTE | 2018-09-07 21:01 | History and Physical Report ---
DATE OF ADMISSION: 09/08/2018 CHIEF COMPLAINT: Chronic left shoulder pain. HISTORY OF PRESENT ILLNESS: This is a 73-year-old female patient of Dr. Mas'alexia complaining of chronic left shoulder pain, longstanding, now progressively getting worse. The patient has failed conservative treatment including physical therapy and injections. MRI has confirmed her diagnosis and the patient wished to proceed with a left total shoulder arthroplasty and open distal clavicle excision, possible rotator cuff repair. PAST MEDICAL HISTORY: Heart murmur, hypertension, left-sided neuropathy, hypothyroidism, rheumatoid arthritis, osteoarthritis, spine problems, neck problems, upper back problems, acid reflux, hiatal hernia. PAST SURGICAL HISTORY: Thyroid surgery, right total knee replacement, right foot fusion, right shoulder surgery, gallbladder surgery. SOCIAL HISTORY: Nonsmoker, nondrinker. FAMILY HISTORY: Noncontributory. REVIEW OF SYSTEMS: The patient complains of chronic left shoulder pain and weakness. Otherwise, denies any shortness of breath, chest pain, nausea, vomiting or any other joint complaints. MEDICATIONS: 1. Calcium 500 mg daily. 2. Klor-Con 20 mEq daily. 3. Folic acid 1 mg daily. 4. Nitroglycerin 0.4 mg sublingual as needed. 5. Azelastine 137 mcg spray, 2 sprays in each nostril 2 times daily. 6. Clobetasol propionate powder daily. 7. Spironolactone 25 mg daily. 8. Vitamin D3 1000 units daily. 9. Magnesium oxide 400 mg daily. 10. Otezla 30 mg twice daily. 11. Tirosint 88 mcg daily. 12. Dicyclomine 20 mg 4 times daily. 13. Levalbuterol 0.63/3 mL solution nebulizer every 8 hours. 14. Benzonatate 100 mg 3 times daily. 15. Fish oil 1000 mg daily. 16. Aspirin 81 mg daily. 17. Triamcinolone acetonide 0.025% topical cream, apply 2 times to affected area daily. 18. Tacrolimus 0.03% topical ointment, apply 2 times daily to affected area. 19. Calcipotriene 0.005% topical cream, apply to affected area 2 times daily. 20. Prednisone 5 mg daily. 21. Norvasc 10 mg daily. ALLERGIES: CODEINE, SULFA, TETRACYCLINE, IVP DYE, CELEBREX, AND VOLTAREN. PHYSICAL EXAMINATION: GENERAL: Well-developed, well-nourished 73-year-old female in no acute distress. She is alert and oriented x3 and pleasant. HEENT: Normocephalic, atraumatic. Extraocular motions are intact. Pupils are equal and reactive to light. HEART: Regular rate and rhythm, no murmurs are appreciated. LUNGS: Clear. ABDOMEN: Soft, nontender, bowel sounds present. EXTREMITIES: Left shoulder reveals full range of motion with pain and crepitation. She has 3+ to 4/5 strength globally. NEUROLOGIC: Neurovascularly, she is intact in her left upper extremity. DIAGNOSES: Left shoulder end-stage osteoarthritis and acromioclavicular joint arthritis. She has a history of a heart murmur, hypertension, left-sided neuropathy, hypothyroidism, status post thyroidectomy, rheumatoid arthritis, osteoarthritis, spine problems, neck problems, upper back problems, acid reflux, hiatal hernia. PLAN: The patient was advised of her diagnosis. Indications, risks, benefits, postop course have all been reviewed. The patient wished to proceed with a left total shoulder arthroplasty, distal clavicle excision and rotator cuff repair. Necessary consent forms, preoperative testing and clearances will be obtained. EDD
[~2018-09-08 07:19] MED LIST changes: +ACETAMINOPHEN 500 MG TAB PO SCH; -ALPR-411 PO; -APRE1TAB3 PO; -ASPI-435 PO; -ASTN; -BENZ100C84 PO; -CALC1CRE2 EXT; -CETI10TA84 PO; -CHOL1CAP57 PO; -CLBPO15 TOP; -CRFL PO; +DEXAMETHASONE SOD INJ 4 MG/ML VIAL ONE; -DICY20TA10 PO; -DILT-115 PO; +EPINEPHrine INJ 1 MG/ML AMP ONE; +FAMOTIDINE 20 MG TAB PO SCH; -FOLI1TAB8 PO; +GABAPENTIN 300 MG PO SCH; -IPRA1AER2 INH; -LEVO88TA3 PO; -MAGN1CAP2 PO; +METOCLOPRAMIDE HCL 10 MG TABLET PO SCH; -MTH25 PO; -MULT-506 PO; -NITR0.1S PO; -OMEG1CAP81 PO; -OYST500T47 PO; -POTA20TA16 PO; -PRED-301 PO; -PRT/20 PO; +ROPIVACAINE 0.5% 5 MG/ML 30 ML VIAL ONE; +SODIUM CHLORIDE 0.9% 1000ML IV SCH; -SPR25 PO; -[UNRECOGNIZED DRUG - CODE] EXT; +dexAMETHasone 4 MG TAB PO SCH
[2018-09-08] MEDS ORDERED: MIDAZOLAM HCL 1 MG/ML 2ML VIAL ONE (08:36)
[2018-09-08] MEDS ORDERED: fentaNYL citrate 100 MCG/2 ML VIAL ONE (08:37)
--- NOTE | 2018-09-08 10:00 | History & Physical Bridge Note ---
Date of Service September 08, 2018 History & Physical Bridge Note I have examined the patient, reviewed the History & Physical and in the interval since the performance of the History & Physical I have noted the following changes of clinical significance: no changes noted
[2018-09-08] MEDS ORDERED: BACITRACIN INJ 50,000 UNIT VIAL ONE (10:04)
[2018-09-08] MEDS ORDERED: EPINEPHrine HCL INJ 1 MG/ML 30ML ONE (10:04)
[2018-09-08] MEDS: CEFAZOLIN 2000MG 2,000 MG/15 ML SYR IV SCH ×2 (10:25→14:10)
[2018-09-08] MEDS ORDERED: LABETALOL HCL IV 5 MG/ML 20ML IV ONE (11:14)
[2018-09-08] MEDS ORDERED: HydrALAZINE HCL 20 MG/ML VIAL IV STA (11:15)
--- NOTE | 2018-09-08 11:15 | Anesthesiology Progress Note ---
Date of Service September 08, 2018 Case cancelled due to uncontrolled HTN.While in OR prior to anesthetic induction after arterial line was connected to monitor,BP was reading 260-285sys/diastolic 113 -144 w/ mean as high as 180 torr.[facility] hospitalist was consulted and will see pt. for further care and admission. Physical Exam Vital Signs: Last Vital Signs Temp 36.9 C 09/08/18 08:03 Pulse 61 09/08/18 08:03 Resp 20 09/08/18 08:03 BP 178/99 H 09/08/18 08:03 Pulse Ox 97 09/08/18 08:03 Results & Data Medications Administered Acetaminophen (Tylenol) 1,000 mg PO PREOP CAROL Stop: 09/08/18 18:00 Last Admin: 09/08/18 08:29 Dose: 1,000 mg Documented by: [id number] Dexamethasone (Decadron) 8 mg PO PREOP CAROL Stop: 09/08/18 18:00 Last Admin: 09/08/18 08:30 Dose: 8 mg Documented by: [id number] Famotidine (Pepcid) 20 mg PO PREOP CAROL Stop: 09/08/18 18:00 Last Admin: 09/08/18 08:30 Dose: 20 mg Documented by: [id number] Gabapentin (Neurontin) 300 mg PO PREOP CAROL Stop: 09/08/18 18:00 Last Admin: 09/08/18 08:30 Dose: 300 mg Documented by: [id number] Sodium Chloride (Nss 1000ml) 1,000 mls @ 15 mls/hr IV .Q24H CAROL Stop: 09/09/18 05:59 Last Infusion: 09/08/18 10:28 Dose: 0 mls/hr Documented by: [id number] Admin: 09/08/18 08:06 Dose: 15 mls/hr Documented by: [id number] Cefazolin Sodium (Ancef 2000mg) 2,000 mg in 15 mls @ 3.75 mls/min IV PREOP CAROL; Protocol Stop: 09/08/18 18:00 Last Admin: 09/08/18 10:25 Dose: 3.75 mls/min Documented by: [id number] Metoclopramide HCl (Reglan) 10 mg PO PREOP CAROL Stop: 09/08/18 18:00 Last Admin: 09/08/18 08:30 Dose: 10 mg Documented by: [id number]
[2018-09-08] MEDS ORDERED: HydrALAZINE HCL 20 MG/ML VIAL ONE (11:16)
[2018-09-08] MEDS ORDERED: ePHEDrine sulfate 50 MG/ML AMP IV PRN (12:05)
[2018-09-08] MEDS ORDERED: ATROPINE SULFATE 0.1 MG/ML 10ML SYR IV PRN (12:05)
--- NOTE | 2018-09-08 12:07 | Anesthesiology Progress Note ---
Date of Service September 08, 2018 Pt has been seen by Dr Rapp and is being admitted onto his service to ICU for better control of BP. Report has been given to Dr Rapp by me. Anesthesia Post Procedure Vital Signs Vital Signs: Temp Pulse Pulse Resp BP BP Pulse Ox 09/08/18 11:20 79 19 172/109 H 198/119 H 99 09/08/18 11:10 82 19 185/94 H 207/125 H 98 09/08/18 11:00 81 19 214/127 H 187/118 H 98 09/08/18 10:54 36.3 C L 76 18 206/117 H 99 09/08/18 08:03 36.9 C 61 20 178/99 H 97 Pain Intensity Left Shoulder: Pain Intensity: 0
--- NOTE | 2018-09-08 12:20 | History & Physical Report ---
Date of Service September 08, 2018 Assessment & Plan (1) Hypertensive crisis without congestive heart failure: d/w anesthesiology, while in the OR her blood pressures were 270's sysolic, 130's diastolic had MAP of 180's surgery was cancelled, patient already received the scalene nerve block she received Labetalol 25mg total and Hydralazine 8mg IV blood pressures in the PACU were ranging from 200-245 systolic and 100-120 diastolic on the arterial line patient without chest pain or dyspnea will treat with Cardene drip, start at 5mg/hr and titrate for SBP 170-190 for today, keep A line for close monitoring patient typically takes nifedipine 20mg TID (she says it is for esophageal spasms) as well as Spironolactone will hold these meds admit to ICU, d/w Dr. Marinelli (2) Esophageal spasm: continue on Nifedipine, can use Nitrol PRN patient had her chest pain worked up by cardiology with Dr. Vergara, there was no evidence of CAD (3) GERD (gastroesophageal reflux disease): continue Protonix (4) Essential hypertension: markedly elevated today improved on the Cardene drip plan to change to Nifedipine 30mg long acting this evening (5) CKD (chronic kidney disease): stage III/IV, Cr is 1.93 will repeat tomorrow follows with Dr. Stevenson could be contributing to HTN History of Present Illness Chief Complaint: I have some chest tightness Primary Care Provider: Shelton Melendez MD 73 yo female with history of hyptertension, esophageal spasms, Schatzki ring and arthritis, presented today for left shoulder surgery. She was prepped for surgery with arterial line. Found to have profoundly elevated blood pressures in the 270's systolic. This is abnormal for her. She reports that she took her medications this morning, specifically her nifedipine. She says that she takes the nifedipine for her esophageal spasms. She needs to take three times a day to help control her symptoms. She gets high blood pressures when she gets the spasms. She says she will also take Nitro to help with the pain and blood pressure issues. She also has a history of CKD stage III/IV and follows with Dr. Stevenson in the office. She was treated with Labetalol and Hydralazine for the elevated BP but no improvement. The case was cancelled by anesthesiology and admission was requested. In the PACU she was resting comfortably. Denied any chest pain, dyspnea, nausea, abdominal pain. She denied any fever, chills, sweats or swelling. She had some chronic pain in left shoulder. Allergies Allergy/AdvReac Type Severity Reaction Status Date / Time codeine Allergy Severe Anaphylaxis Verified 09/08/18 07:53 capsaicin Allergy Intermediate CREATINE Verified 09/08/18 07:53 ELEVATION diclofenac Allergy Intermediate CREATINE Verified 09/08/18 07:53 ELEVATION Diclopak Allergy Intermediate CREATINE Verified 04/06/17 09:34 ELEVATION isopropyl alcohol Allergy Intermediate CREATINE Verified 09/08/18 07:53 ELEVATION propylene glycol Allergy Intermediate CREATINE Verified 09/08/18 07:53 ELEVATION celecoxib [From Celebrex] Allergy Mild Rash Verified 09/08/18 07:53 Iodinated Contrast- Oral and Allergy Mild RASH Verified 09/08/18 07:53 IV Dye Sulfa (Sulfonamide Allergy Mild RASH TO Verified 09/08/18 07:53 Antibiotics) SULFA DRUGS tetracycline Allergy Mild RASH Verified 09/08/18 07:53 Home Medications Home Medications Medication Instructions Recorded Confirmed Type Otezla 30 mg PO HS 07/26/18 09/08/18 History Posture-D (with magnesium) 1 tab PO QAM 07/26/18 09/08/18 History aspirin 81 mg PO HS 07/26/18 09/08/18 History azelastine 2 spray INTRANASAL DAILY 07/26/18 09/08/18 History benzonatate 100 mg PO BID PRN 07/26/18 09/08/18 History calcipotriene 1 applic TOPICAL BID 07/26/18 09/08/18 History cetirizine [Zyrtec] 5 mg PO BID 07/26/18 09/08/18 History cholecalciferol (vitamin D3) 1,000 unit PO HS 07/26/18 09/08/18 History [Vitamin D3] clobetasol 1 applic TOPICAL DAILY PRN 07/26/18 09/08/18 History dicyclomine 20 mg PO TID PRN 07/26/18 09/08/18 History duloxetine 60 mg PO QAM 07/26/18 09/08/18 History levalbuterol HCl 0.63 mg INHALATION Q4 PRN 07/26/18 09/08/18 History levothyroxine 75 mcg PO QAM 07/26/18 09/08/18 History magnesium oxide 800 mg PO DAILY 07/26/18 09/08/18 History nitroglycerin 1 - 2 spray SUBLINGUAL DIRECTED 07/26/18 09/08/18 History PRN omega 2-nxi-rvv-fish oil [Fish Oil] 1,000 mg PO BID 07/26/18 09/08/18 History pantoprazole [Protonix] 40 mg PO DAILYBB 07/26/18 09/08/18 History prednisone 5 mg PO HS 07/26/18 09/08/18 History tacrolimus 1 applic TOPICAL BID 07/26/18 09/08/18 History triamcinolone acetonide 1 applic TOPICAL BID PRN 07/26/18 09/08/18 History potassium chloride [Klor-Con M20] 20 meq PO QAM #0 tab 07/27/18 09/08/18 Rx folic acid 1 mg PO QAM 08/06/18 09/08/18 History spironolactone 25 mg PO BID 08/06/18 09/08/18 History nifedipine 20 mg PO AC 08/27/18 09/08/18 History Past Med/Surg History Medical History Osteoarthritis, knee GERD (gastroesophageal reflux disease) CONTROLLED WITH MEDS CKD (chronic kidney disease) stage 4, GFR 15-29 ml/min BASELINE CREATININE 2.0-2.2 RANGE; NEPHRO MONITORING Chronic steroid use Diabetes RECENT DIAGNOSIS; HGBA1C 7.2% ON 08/24/18 LABS; DECLINES MEDS AT THIS TIME HTN (hypertension) Hypothyroidism Irritable bowel syndrome Lumbar stenosis with neurogenic claudication Peptic ulcer disease 2016 Psoriatic arthropathy ON CHRONIC PREDNISONE 5MG HS Schatzki's ring HX S/P EGD WITH DILATION (2017) Spinal meningioma FOLLOWS WITH [facility] [place] SPECIALIST (MONITORING; HAS BEEN STABLE WITH NO INDICATION FOR SURGICAL INTERVENTION) Surgical History H/O thyroidectomy History of knee surgery History of arthroscopy of right shoulder History of cataract extraction History of cholecystectomy History of colonoscopy History of esophagogastroduodenoscopy (EGD) History of foot surgery History of lumbar fusion History of tonsillectomy History of total abdominal hysterectomy and bilateral salpingo-oophorectomy History of total knee arthroplasty Family History Other Family history non-contributory Social History Preferred Language: Malay Communication Ability: Effective Manager Rfid Required: No Beliefs That Will Affect Care: None marital status: Current Living Situation: Spouse 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 Other Information That Helps Us Care for You: No Feels Safe at Home: Yes Safety Concerns: Feels Safe At This Time Smoking Status: Never smoker Do You Dip or Chew Tobacco: No Second Hand Exposure: No Tobacco Cessation Education Requested by Patient: No Hx Alcohol Use: No Hx Substance Use: No Review of Systems Review of Systems: All systems reviewed & are unremarkable except as noted in HPI & below Physical Exam Vital Signs (Past 24 Hours): Last Vital Signs Temp 36.3 C L 09/08/18 10:54 Pulse 91 H 09/08/18 12:00 Resp 19 09/08/18 12:00 BP 198/119 H 09/08/18 12:00 Pulse Ox 95 09/08/18 12:00 Constitutional: WD/WN, vitals as above Eyes: PERRL, conjunctivae normal, anicteric sclerae ENMT: external ear and nose normal, oropharynx normal Neck: trachea midline, no thyromegaly Respiratory: normal respiratory effort, lungs clear to auscultation Cardiovascular: RRR, no murmur, no edema Gastrointestinal (Abdomen): normal bowel sounds, soft, nontender, no hepatosplenomegaly Musculoskeletal: no cyanosis or clubbing, extremities motor strength 5/5 Extremities: + limited ROM of extremities (left arm at shoulder due to pain) Skin: no rashes, warm and dry Neurologic: patellar DTR's 2+ bilat, sensation intact Psychiatric: A+Ox3, euthymic affect Lymphatic: no cervical or axillary lymphadenopathy Results & Data Laboratory Results Laboratory Results - last 24 hr 09/08/18 09/08/18 09/08/18 08:06 12:34 13:34 WBC 7.76 RBC 4.22 Hgb 12.5 Hct 38.2 MCV 90.5 MCH 29.6 MCHC 32.7 RDW Std Deviation 53.6 H RDW Coeff of Amrita 16.3 H Plt Count 288 MPV 10.5 H Sodium Potassium Chloride Carbon Dioxide Anion Gap BUN Creatinine Est Cr Clr Drug Dosing Est GFR ( Amer) Est GFR (Non-Af Amer) BUN/Creatinine Ratio Glucose POC Glucose 117 H 172 H Calcium Nasal Screen MRSA (PCR) 09/08/18 09/08/18 13:34 13:58 WBC RBC Hgb Hct MCV MCH MCHC RDW Std Deviation RDW Coeff of Amrita Plt Count MPV Sodium 139 Potassium 4.0 Chloride 108 H Carbon Dioxide 23 Anion Gap 8.0 BUN 25 H Creatinine 1.93 H Est Cr Clr Drug Dosing 34.3 Est GFR ( Amer) 29.4 Est GFR (Non-Af Amer) 25.4 BUN/Creatinine Ratio 13.0 Glucose 169 H POC Glucose Calcium 9.4 Nasal Screen MRSA (PCR) Negative Medications Administered Current Inpatient Medications Apremilast (Otezla) 1 ea PO DAILY [facility] Stop: 10/08/18 15:59 Benzonatate (Tessalon Perle) 100 mg PO BID PRN PRN Reason: Cough Stop: 10/08/18 13:19 Cetirizine HCl (Zyrtec) 5 mg PO BID CAROL Stop: 10/08/18 20:59 Last Admin: 09/08/18 21:46 Dose: 5 mg Documented by: Dicyclomine HCl (Bentyl) 20 mg PO TID PRN PRN Reason: Abdominal Discomfort Stop: 10/08/18 13:19 Duloxetine HCl (Cymbalta) 60 mg PO QAM CAROL Stop: 10/09/18 08:59 Heparin Sodium (Porcine) (Heparin Sodium (Porcine)) 5,000 units SQ Q8 CAROL Stop: 10/08/18 13:59 Last Admin: 09/08/18 21:47 Dose: 5,000 units Documented by: Levalbuterol HCl (Xopenex 0.63 Mg/3 Ml Neb) 0.63 mg INH Q4 PRN PRN Reason: Shortness Of Breath Or Wheezing Stop: 10/08/18 13:19 Levothyroxine Sodium (Synthroid) 75 mcg PO DAILYBB [facility] Stop: 10/09/18 06:29 Magnesium Oxide (Mag-Ox) 800 mg PO DAILY CAROL Stop: 10/09/18 08:59 Miscellaneous (Order Awaiting Action) 1 ea N/A QS CAROL Stop: 10/08/18 15:59 Last Admin: 09/08/18 16:47 Dose: Not Given Documented by: Trancellaneous (Order Awaiting Action) 1 ea N/A QS CAROL Stop: 10/08/18 15:59 Last Admin: 09/08/18 16:47 Dose: Not Given Documented by: Ghazalaaneous (Icu Protocol For Hyperglycemia) 1 ea N/A PRN PRN; Protocol PRN Reason: Hyperglycemia Protocol Stop: 09/10/18 13:19 Miscellaneous (Order Awaiting Action) 1 ea N/A QS CAROL Stop: 10/08/18 15:59 Last Admin: 09/08/18 16:48 Dose: Not Given Documented by: Nifedipine (Procardia Xl) 30 mg PO HS CAROL Stop: 10/08/18 20:59 Last Admin: 09/08/18 21:46 Dose: 30 mg Documented by: Pantoprazole Sodium (Protonix) 40 mg PO DAILYBB CAROL Stop: 10/09/18 06:29 Prednisone (Prednisone) 5 mg PO HS CAROL Stop: 10/08/18 20:59 Last Admin: 09/08/18 21:47 Dose: 5 mg Documented by: Spironolactone (Aldactone) 25 mg PO BID17 CAROL Stop: 10/08/18 16:59 Last Admin: 09/08/18 16:49 Dose: 25 mg Documented by: Triamcinolone Acetonide (Kenalog 0.025%) 1 appln TOP BID PRN PRN Reason: PSORIASIS Stop: 10/08/18 13:19 Code Status & VTE Plan Code Status full code VTE Prophylaxis Plan VTE Prophylaxis will be ordered: Yes
[2018-09-08] MEDS ORDERED: BENZONATATE 100 MG CAPSULE PO PRN (13:20)
[2018-09-08] MEDS ORDERED: ICU PROTOCOL FOR HYPERGLYCEMIA PRN (13:20)
[2018-09-08] MEDS ORDERED: LEVALBUTEROL HCL 0.63 MG/3 ML NEB INH PRN (13:20)
[2018-09-08] MEDS ORDERED: TRIAMCINOLONE ACET 0.025% CR 15 GM TUBE TOP PRN (13:20)
[2018-09-08] MEDS ORDERED: DICYCLOMINE HCL 20 MG TAB PO PRN (13:20)
[2018-09-08 14:06] LABS: Hematocrit (blood only) 38.2 % (37-47); Hemoglobin 12.5 g/dL (12.0-16.0); Mean Corpuscular Hgb Conc 32.7 g/dL (32-36); Mean Corpuscular Volume 90.5 fL (80-100); Mean Platelet Volume 10.5 fL (7.4-10.4); Platelet Count 288 K/uL (130-400); RDW Coefficient of Variation 16.3 % (11.5-14.5); RDW Standard Deviation 53.6 fL (36.4-46.3); Red Blood Count 4.22 M/uL (4.2-5.4); White Blood Count 7.76 K/uL (4.8-10.8)
[2018-09-08 14:29] LABS: Calcium 9.4 mg/dl (8.5-10.1); Creatinine Clr Calc Pharmacy 34.3 ml/min; Est GFR (African American) 29.4; Est GFR (Non-African American) 25.4
[2018-09-08] MEDS: HEPARIN SOD 5,000 UNIT/0.5 ML VIAL SQ SCH ×2 (15:44→21:47)
[2018-09-08] MEDS: SPIRONOLACTONE 25 MG TAB PO SCH (16:49)
--- NOTE | 2018-09-08 20:15 | Critical Care Consultation ---
Date of Consultation September 08, 2018 Assessment & Plan (1) Admitted to intensive care unit: Reason Critically Ill: 73-year-old female with hypertensive urgency PLAN: CV: Hypertensive urgency -Goal blood pressure 1 70-1 80 systolic Abnormal EKG -Voltage criteria for left ventricular hypertrophy Fluids/Renal: Chronic kidney disease -Creatinine 1.93 GI/Nutrition: Tolerating heart healthy diet DVT prophylaxis: Heparin 5000 units every 8 Endocrine: ICU hyperglycemia protocol Hypothyroidism -Levothyroxine 75 mcg daily Vascular access: Peripheral IVs Code Status: Full code I have personally spent 35 minutes of critical care time in the direct management of this patient. This is a life/limb threatening event. This includes time spent evaluating patient, direct bedside care, chart review, placing orders, interpretation of diagnostic studies, discussion with co nsultants, patient, and/or family members regarding treatment decisions, as well as other required patient management activities. This time is exclusive of all separately billable procedures, and teaching time and separate from and in addition to any other critical care service time. History of Present Illness Attending Physician: Gavin Mas MD Patient is a 73-year-old female who was planned to undergo an elective total shoulder arthroplasty secondary to end-stage osteoarthritis. After anesthetic induction patient was noted to have uncontrolled hypertension via arterial line readings between 2 16-85 systolic with diastolics 113 244. She was started on nicardipine and transferred to the ICU for hypertensive urgency In the operating room patient had received a scalene nerve block. Allergies Allergy/AdvReac Type Severity Reaction Status Date / Time codeine Allergy Severe Anaphylaxis Verified 09/08/18 07:53 capsaicin Allergy Intermediate CREATINE Verified 09/08/18 07:53 ELEVATION diclofenac Allergy Intermediate CREATINE Verified 09/08/18 07:53 ELEVATION Diclopak Allergy Intermediate CREATINE Verified 04/06/17 09:34 ELEVATION isopropyl alcohol Allergy Intermediate CREATINE Verified 09/08/18 07:53 ELEVATION propylene glycol Allergy Intermediate CREATINE Verified 09/08/18 07:53 ELEVATION celecoxib [From Celebrex] Allergy Mild Rash Verified 09/08/18 07:53 Iodinated Contrast- Oral and Allergy Mild RASH Verified 09/08/18 07:53 IV Dye Sulfa (Sulfonamide Allergy Mild RASH TO Verified 09/08/18 07:53 Antibiotics) SULFA DRUGS tetracycline Allergy Mild RASH Verified 09/08/18 07:53 Home Medications Home Medications Medication Instructions Recorded Confirmed Type Otezla 30 mg PO HS 07/26/18 09/08/18 History Posture-D (with magnesium) 1 tab PO QAM 07/26/18 09/08/18 History aspirin 81 mg PO HS 07/26/18 09/08/18 History azelastine 2 spray INTRANASAL DAILY 07/26/18 09/08/18 History benzonatate 100 mg PO BID PRN 07/26/18 09/08/18 History calcipotriene 1 applic TOPICAL BID 07/26/18 09/08/18 History cetirizine [Zyrtec] 5 mg PO BID 07/26/18 09/08/18 History cholecalciferol (vitamin D3) 1,000 unit PO HS 07/26/18 09/08/18 History [Vitamin D3] clobetasol 1 applic TOPICAL DAILY PRN 07/26/18 09/08/18 History dicyclomine 20 mg PO TID PRN 07/26/18 09/08/18 History duloxetine 60 mg PO QAM 07/26/18 09/08/18 History levalbuterol HCl 0.63 mg INHALATION Q4 PRN 07/26/18 09/08/18 History levothyroxine 75 mcg PO QAM 07/26/18 09/08/18 History magnesium oxide 800 mg PO DAILY 07/26/18 09/08/18 History nitroglycerin 1 - 2 spray SUBLINGUAL DIRECTED 07/26/18 09/08/18 History PRN omega 3-eyu-kra-fish oil [Fish Oil] 1,000 mg PO BID 07/26/18 09/08/18 History pantoprazole [Protonix] 40 mg PO DAILYBB 07/26/18 09/08/18 History prednisone 5 mg PO HS 07/26/18 09/08/18 History tacrolimus 1 applic TOPICAL BID 07/26/18 09/08/18 History triamcinolone acetonide 1 applic TOPICAL BID PRN 07/26/18 09/08/18 History potassium chloride [Klor-Con M20] 20 meq PO QAM #0 tab 07/27/18 09/08/18 Rx folic acid 1 mg PO QAM 08/06/18 09/08/18 History spironolactone 25 mg PO BID 08/06/18 09/08/18 History nifedipine [Adalat CC] 30 mg PO HS 30 Days #30 tab 09/09/18 Rx Patient History Medical History Osteoarthritis, knee GERD (gastroesophageal reflux disease) CONTROLLED WITH MEDS CKD (chronic kidney disease) stage 4, GFR 15-29 ml/min BASELINE CREATININE 2.0-2.2 RANGE; NEPHRO MONITORING Chronic steroid use Diabetes RECENT DIAGNOSIS; HGBA1C 7.2% ON 08/24/18 LABS; DECLINES MEDS AT THIS TIME HTN (hypertension) Hypothyroidism Irritable bowel syndrome Lumbar stenosis with neurogenic claudication Peptic ulcer disease 2017 Psoriatic arthropathy ON CHRONIC PREDNISONE 5MG HS Schatzki's ring HX S/P EGD WITH DILATION (2017) Spinal meningioma FOLLOWS WITH [facility] SPECIALIST (MONITORING; HAS BEEN STABLE WITH NO INDICATION FOR SURGICAL INTERVENTION) Surgical History H/O thyroidectomy History of knee surgery History of arthroscopy of right shoulder History of cataract extraction History of cholecystectomy History of colonoscopy History of esophagogastroduodenoscopy (EGD) History of foot surgery History of lumbar fusion History of tonsillectomy History of total abdominal hysterectomy and bilateral salpingo-oophorectomy History of total knee arthroplasty Family History Other Family history non-contributory Social History Preferred Language: Bulgarian Communication Ability: Effective Kitchen Steward/Stewardess Required: No Beliefs That Will Affect Care: None marital status: Current Living Situation: Spouse 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 Other Information That Helps Us Care for You: No Feels Safe at Home: Yes Safety Concerns: Feels Safe At This Time Smoking Status: Never smoker Do You Dip or Chew Tobacco: No Second Hand Exposure: No Tobacco Cessation Education Requested by Patient: No Hx Alcohol Use: No Hx Substance Use: No Results & Data Vital Signs (Past 12 Hours) Vital Signs Temp Pulse Pulse Resp BP BP BP 09/08/18 18:30 90 18 09/08/18 18:00 87 18 139/69 09/08/18 17:30 80 18 09/08/18 17:01 64 19 128/67 09/08/18 17:00 83 23 09/08/18 16:40 93 H 23 09/08/18 16:30 89 17 04/17/19 16:20 90 16 09/08/18 16:10 85 16 09/08/18 16:00 82 17 147/69 H 09/08/18 15:50 82 19 09/08/18 15:40 82 21 09/08/18 15:30 86 15 09/08/18 15:20 88 20 09/08/18 15:10 87 17 09/08/18 15:01 87 22 122/69 09/08/18 15:00 89 23 09/08/18 14:50 91 H 25 H 09/08/18 14:40 86 18 09/08/18 14:30 86 16 09/08/18 14:28 88 24 135/78 09/08/18 14:00 93 H 43 H 09/08/18 13:30 94 H 09/08/18 13:19 36.7 C 94 H 18 201/108 H 09/08/18 12:30 91 H 17 202/122 H 208/109 H 09/08/18 12:20 91 H 18 199/120 H 09/08/18 12:10 36.6 C 92 H 20 189/118 H 160/118 H 09/08/18 12:00 91 H 19 198/119 H 239/132 H 09/08/18 11:50 90 20 211/119 H 241/150 H 09/08/18 11:40 93 H 17 198/126 H 230/140 H 09/08/18 11:30 79 15 183/113 H 09/08/18 11:20 79 19 172/109 H 198/119 H 09/08/18 11:10 82 19 185/94 H 207/125 H 09/08/18 11:00 81 19 214/127 H 187/118 H 09/08/18 10:54 36.3 C L 76 18 206/117 H Pulse Ox 09/08/18 18:30 98 09/08/18 18:00 97 09/08/18 17:30 96 09/08/18 17:01 98 09/08/18 17:00 98 09/08/18 16:40 98 09/08/18 16:30 97 09/08/18 16:20 96 09/08/18 16:10 97 09/08/18 16:00 96 09/08/18 15:50 96 09/08/18 15:40 96 09/08/18 15:30 98 09/08/18 15:20 97 09/08/18 15:10 96 09/08/18 15:01 98 09/08/18 15:00 97 09/08/18 14:50 95 09/08/18 14:40 96 09/08/18 14:30 97 09/08/18 14:28 97 09/08/18 14:00 99 09/08/18 13:30 96 09/08/18 13:19 98 09/08/18 12:30 97 09/08/18 12:20 96 09/08/18 12:10 96 09/08/18 12:00 95 09/08/18 11:50 95 09/08/18 11:40 96 09/08/18 11:30 99 09/08/18 11:20 99 09/08/18 11:10 98 09/08/18 11:00 98 09/08/18 10:54 99 Laboratory Results 09/08/18 09/08/18 09/08/18 Range/Units 13:58 13:34 13:34 WBC 7.76 (4.8-10.8) K/uL RBC 4.22 (4.2-5.4) M/uL Hgb 12.5 (12.0-16.0) g/dL Hct 38.2 (37-47) % MCV 90.5 (80-100) fL MCH 29.6 (25-34) pg MCHC 32.7 (32-36) g/dL RDW Std Deviation 53.6 H (36.4-46.3) fL RDW Coeff of Amrita 16.3 H (11.5-14.5) % Plt Count 288 (130-400) K/uL MPV 10.5 H (7.4-10.4) fL Sodium 139 (136-145) mmol/L Potassium 4.0 (3.5-5.1) mmol/L Chloride 108 H (98-107) mmol/L Carbon Dioxide 23 (21-32) mmol/L Anion Gap 8.0 (3-11) BUN 25 H (7-18) mg/dl Creatinine 1.93 H (0.6-1.2) mg/dl Est Cr Clr Drug Dosing 34.3 ml/min Est GFR ( Amer) 29.4 Est GFR (Non-Af Amer) 25.4 BUN/Creatinine Ratio 13.0 (10-20) Glucose 169 H (70-99) mg/dl POC Glucose (70-99) Calcium 9.4 (8.5-10.1) mg/dl Nasal Screen MRSA (PCR) Negative (Negative) 09/08/18 09/08/18 Range/Units 12:34 08:06 WBC (4.8-10.8) K/uL RBC (4.2-5.4) M/uL Hgb (12.0-16.0) g/dL Hct (37-47) % MCV (80-100) fL MCH (25-34) pg MCHC (32-36) g/dL RDW Std Deviation (36.4-46.3) fL RDW Coeff of Amrita (11.5-14.5) % Plt Count (130-400) K/uL MPV (7.4-10.4) fL Sodium (136-145) mmol/L Potassium (3.5-5.1) mmol/L Chloride (98-107) mmol/L Carbon Dioxide (21-32) mmol/L Anion Gap (3-11) BUN (7-18) mg/dl Creatinine (0.6-1.2) mg/dl Est Cr Clr Drug Dosing ml/min Est GFR ( Amer) Est GFR (Non-Af Amer) BUN/Creatinine Ratio (10-20) Glucose (70-99) mg/dl POC Glucose 172 H 117 H (70-99) Calcium (8.5-10.1) mg/dl Nasal Screen MRSA (PCR) (Negative)
[2018-09-08] MEDS ORDERED: NIFEdipine EXTENDED REL 30 MG TABCR PO SCH (21:00)
[2018-09-08] MEDS ORDERED: predniSONE 5 MG TAB PO SCH (21:00)
[2018-09-08] MEDS: CETIRIZINE HCL 10 MG TABLET PO SCH (21:46)
[2018-09-08] MEDS ORDERED: INSULIN HUMAN REGULAR SC ONE (22:04)
[2018-09-08] MEDS ORDERED: NovoLIN-R INSULIN PER UNIT CHARGE SC ONE (23:30)
[2018-09-09 04:47] LABS: Hematocrit (blood only) 34.7 % (37-47); Hemoglobin 11.3 g/dL (12.0-16.0); Mean Corpuscular Hgb Conc 32.6 g/dL (32-36); Mean Corpuscular Volume 90.1 fL (80-100); Mean Platelet Volume 10.7 fL (7.4-10.4); Platelet Count 287 K/uL (130-400); RDW Coefficient of Variation 16.4 % (11.5-14.5); RDW Standard Deviation 54.3 fL (36.4-46.3); Red Blood Count 3.85 M/uL (4.2-5.4); White Blood Count 11.18 K/uL (4.8-10.8)
[2018-09-09 05:04] LABS: BUN Creatinine Ratio 16.1 (10-20); Calcium 8.8 mg/dl (8.5-10.1); Est GFR (Non-African American) 24.2; Potassium 4.4 mmol/L (3.5-5.1)
[2018-09-09] MEDS: HEPARIN SOD 5,000 UNIT/0.5 ML VIAL SQ SCH (06:02)
[2018-09-09] MEDS ORDERED: LEVOTHYROXINE SODIUM 75 MCG TABLET PO SCH (06:30)
[2018-09-09] MEDS ORDERED: PANTOprazole 40 MG TAB PO SCH (06:30)
--- NOTE | 2018-09-09 07:02 | Critical Care Progress Note ---
Date of Service September 09, 2018 Assessment & Plan (1) Admitted to intensive care unit: Results & Data Vital Signs (Past 12 Hours) Vital Signs Temp Pulse Resp BP Pulse Ox 09/09/18 06:01 75 14 168/86 H 95 09/09/18 06:00 72 14 95 09/09/18 05:01 78 17 140/82 96 09/09/18 05:00 77 9 L 96 09/09/18 04:01 76 17 163/87 H 96 09/09/18 04:00 36.9 C 70 16 96 09/09/18 03:01 63 14 149/88 H 96 09/09/18 03:00 65 14 97 09/09/18 02:01 76 16 143/81 H 96 09/09/18 02:00 73 20 96 09/09/18 01:00 82 18 150/74 H 09/09/18 00:01 74 17 133/71 96 09/09/18 00:00 37 C 80 18 96 09/08/18 23:00 82 20 142/75 H 95 09/08/18 22:01 79 27 H 136/61 98 09/08/18 22:00 90 16 99 09/08/18 21:01 73 21 128/67 96 09/08/18 21:00 77 21 96 09/08/18 20:01 36.9 C 69 14 137/61 96 09/08/18 20:00 72 23 95 09/08/18 19:15 83 20 94
[2018-09-09] MEDS ORDERED: INSULIN HUMAN REGULAR SC SCH (07:30)
[2018-09-09] MEDS: CETIRIZINE HCL 10 MG TABLET PO SCH (08:56)
[2018-09-09] MEDS: SPIRONOLACTONE 25 MG TAB PO SCH (08:58)
[2018-09-09] MEDS: APREMILAST PO SCH ×2 (08:59→09:07)
[2018-09-09] MEDS ORDERED: MAGNESIUM OXIDE 400 MG TAB PO SCH (09:00)
[2018-09-09] MEDS ORDERED: DULOXETINE HCL 60 MG CAP PO SCH (09:00)
--- NOTE | 2018-09-09 17:03 | Discharge Summary ---
Date of Service September 09, 2018 Admission HPI Per Admitting Provider 73 yo female with history of hyptertension, esophageal spasms, Schatzki ring and arthritis, presented today for left shoulder surgery. She was prepped for surgery with arterial line. Found to have profoundly elevated blood pressures in the 270's systolic. This is abnormal for her. She reports that she took her medications this morning, specifically her nifedipine. She says that she takes the nifedipine for her esophageal spasms. She needs to take three times a day to help control her symptoms. She gets high blood pressures when she gets the spasms. She says she will also take Nitro to help with the pain and blood pressure issues. She also has a history of CKD stage III/IV and follows with Dr. Stevenson in the office. She was treated with Labetalol and Hydralazine for the elevated BP but no improvement. The case was cancelled by anesthesiology and admission was requested. In the PACU she was resting comfortably. Denied any chest pain, dyspnea, nausea, abdominal pain. She denied any fever, chills, sweats or swelling. She had some chronic pain in left shoulder. Admission Exam Per Admitting Provider Constitutional: WD/WN, vitals as above Eyes: PERRL, conjunctivae normal, anicteric sclerae ENMT: external ear and nose normal, oropharynx normal Neck: trachea midline, no thyromegaly Respiratory: normal respiratory effort, lungs clear to auscultation Cardiovascular: RRR, no murmur, no edema Gastrointestinal (Abdomen): normal bowel sounds, soft, nontender, no hepatosplenomegaly Musculoskeletal: no cyanosis or clubbing, extremities motor strength 5/5 Extremities: + limited ROM of extremities (left arm at shoulder due to pain) Skin: no rashes, warm and dry Neurologic: patellar DTR's 2+ bilat, sensation intact Psychiatric: A+Ox3, euthymic affect Lymphatic: no cervical or axillary lymphadenopathy Principal Diagnosis Hypertensive Crisis Discharge Exam Constitutional WD/WN, vitals as above Eyes PERRL, conjunctivae normal, anicteric sclerae ENMT external ear and nose normal, oropharynx normal Neck trachea midline, no thyromegaly Respiratory normal respiratory effort, lungs clear to auscultation Cardiovascular RRR, no murmur, no edema Gastrointestinal (Abdomen) normal bowel sounds, soft, nontender, no hepatosplenomegaly Musculoskeletal no cyanosis or clubbing, extremities motor strength 5/5 Extremities: + limited ROM of extremities (left arm at shoulder due to pain) Skin no rashes, warm and dry Neurologic patellar DTR's 2+ bilat, sensation intact Psychiatric A+Ox3, euthymic affect Lymphatic no cervical or axillary lymphadenopathy Discharge Data Allergies Allergy/AdvReac Type Severity Reaction Status Date / Time codeine Allergy Severe Anaphylaxis Verified 09/08/18 07:53 capsaicin Allergy Intermediate CREATINE Verified 09/08/18 07:53 ELEVATION diclofenac Allergy Intermediate CREATINE Verified 09/08/18 07:53 ELEVATION Diclopak Allergy Intermediate CREATINE Verified 04/06/17 09:34 ELEVATION isopropyl alcohol Allergy Intermediate CREATINE Verified 09/08/18 07:53 ELEVATION propylene glycol Allergy Intermediate CREATINE Verified 09/08/18 07:53 ELEVATION celecoxib [From Celebrex] Allergy Mild Rash Verified 09/08/18 07:53 Iodinated Contrast- Oral and Allergy Mild RASH Verified 09/08/18 07:53 IV Dye Sulfa (Sulfonamide Allergy Mild RASH TO Verified 09/08/18 07:53 Antibiotics) SULFA DRUGS tetracycline Allergy Mild RASH Verified 09/08/18 07:53 Consultations 09/07/18 09:21 Consult Hospitalist Routine 09/08/18 13:20 Consult Case Management - Discharge Planning Routine Consult Topographical Surveyor Routine Procedures Performed Operation Date: 09/08/18 09:40 Actual Procedures p Canceled per Anesthesia due to High blood pressure - Gavin Mas MD Ordered Studies 09/08/18 05:00 US - OR guided needle placemen Routine Hospital Course (1) Hypertensive crisis without congestive heart failure: d/w anesthesiology, while in the OR her blood pressures were 270's sysolic, 130's diastolic had MAP of 180's surgery was cancelled, patient already received the scalene nerve block she received Labetalol 25mg total and Hydralazine 8mg IV blood pressures in the PACU were ranging from 200-245 systolic and 100-120 diastolic on the arterial line patient without chest pain or dyspnea treated with Cardene drip, started at 5mg/hr and titrate for SBP 170-190 for today, keep A line for close monitoring blood pressure much improved on Cardene drip, transitioned to long acting Nifedipine she was given Nifedipine XL 30mg in the evening on 09/08 blood pressures well controlled over night and in the morning discussed with patient, will prescribe her Nifedipine XL 30mg daily/HS starting this evening should follow up closely with Dr. Melendez in the office if HTN persists could consider going up to 60mg (2) Esophageal spasm: will now be on Nifedipine XL 30mg daily can use the Nitro spray PRN for any spasms patient had her chest pain worked up by cardiology with Dr. Vergara, there was no evidence of CAD (3) GERD (gastroesophageal reflux disease): continue Protonix (4) Essential hypertension: see above will now treat with long acting Nifedipine (5) CKD (chronic kidney disease): Cr stable, 1.9 and 2.0 during stay electrolytes stable (6) Arthritis of left shoulder region: surgery on hold for now, should follow up with Dr. Mas in the office want blood pressure well controlled prior to surgery Total Time Total Time Spent Total Time Spent (In Minutes): 35 minutes Total Time Includes: Examination of the Patient, Discharge Planning, Medication Reconciliation and Communication With Other Providers (orthopedics, Dr. Marinelli) Discharge Plan Discharge Items Patient Disposition: Home - Self-Care Reason For Visit: Primary Osteoarthritis, Left shoulder Discharge Diagnosis: Hypertensive crisis Condition: Good Discharge Goals: Decrease discomfort, Improve disease control and Improve function Activity: Resume your previous activity Non-emergency contact: Primary Care Provider and Surgeon Call non-emergency contact if: you have any medication questions, your symptoms worsen, your pain is not controlled and you have a fever Follow-up/Referrals: Shelton Melendez MD [Primary Care Provider] - Diet: Heart Healthy Add Provider Instructions: Medictions - PROCARDIA: started on long acting Procardia, received a dose last night, continue this tonight, new script given Hypertension: blood pressures better on long acting Procardia will continue at 30mg daily in the evening please follow up with Dr. Melendez early next week for blood pressure check, may need to increase medications Esophageal spasms: will now be on the long acting Procardia use Nitro as needed for spasms Left shoulder arthritis: please call Dr Mas's office today to get scheduled to be seen / rescheduled surgery Prescriptions: New nifedipine [Adalat CC] 30 mg Tablet Extended Release 30 mg PO HS 30 Days Qty: 30 RF: 1 Continued folic acid 1 mg 1 mg PO QAM RF: 0 spironolactone 25 mg Tablet 25 mg PO BID RF: 0 cetirizine [Zyrtec] 10 mg Tablet 5 mg PO BID RF: 0 levalbuterol HCl 0.63 mg/3 mL Solution For Nebulization 0.63 mg INHALATION Q4 PRN (Reason: Shortness Of Breath Or Wheezing) RF: 0 prednisone 5 mg Tablet 5 mg PO HS RF: 0 clobetasol 0.05 % Cream 1 applic TOPICAL DAILY PRN (Reason: NEEDED) RF: 0 levothyroxine 75 mcg Tablet 75 mcg PO QAM RF: 0 triamcinolone acetonide 0.025 % Cream 1 applic TOPICAL BID PRN (Reason: PSORIASIS) RF: 0 dicyclomine 20 mg Tablet 20 mg PO TID PRN (Reason: Abdominal Discomfort) RF: 0 benzonatate 100 mg Capsule 100 mg PO BID PRN (Reason: Cough) RF: 0 pantoprazole [Protonix] 40 mg Tablet,Delayed Release (Dr/Ec) 40 mg PO DAILYBB RF: 0 calcipotriene 0.005 % Cream 1 applic TOPICAL BID RF: 0 tacrolimus 0.03 % Ointment 1 applic TOPICAL BID RF: 0 nitroglycerin 400 mcg/spray [place],Non-Aerosol 1 - 2 spray Sublingual DIRECTED PRN (Reason: ESOPHAGEAL SPASMS) RF: 0 aspirin 81 mg Tablet,Chewable 81 mg PO HS RF: 0 azelastine 137 mcg (0.1 %) Aerosol,[place] 2 spray INTRANASAL DAILY RF: 0 cholecalciferol (vitamin D3) [Vitamin D3] 1,000 unit Capsule 1,000 unit PO HS RF: 0 duloxetine 60 mg Capsule,Delayed Release(Dr/Ec) 60 mg PO QAM RF: 0 omega 6-ath-mhl-fish oil [Fish Oil] 1,000 mg (120 mg-180 mg) Capsule 1,000 mg PO BID RF: 0 Otezla 30 mg Tablet 30 mg PO HS RF: 0 Posture-D (with magnesium) 600 mg calcium- 500 unit-50 mg Tablet 1 tab PO QAM RF: 0 magnesium oxide 400 mg magnesium Tablet 800 mg PO DAILY RF: 0 potassium chloride [Klor-Con M20] 20 mEq Tablet,Er Particles/Crystals 20 meq PO QAM Qty: 0 RF: 0 Discontinued nifedipine 10 mg Capsule 20 mg PO AC RF: 0 Stand-Alone Forms: [facility]/Other Patient Handouts: Nifedipine Oral tablet extended-release Discharge Orders: Discharge Order (Routine); Ordered 09/09/18 Ordered By: José Miguel Rapp Admission Data Admit Date/Time: 09/08/18 12:57 Attending Provider: Gavin Mas Admit Provider: José Miguel Rapp Primary Care Provider: Shelton Melendez Other Providers: Dionte Lacey ; Jez Marinelli Service: Surgical Services Other Interventions: Discharge Summary Assessment (RN) Last Done: 09/09/18 09:23 Pending Studies at Discharge: No DC Date/Time DO NOT enter until pt leaves facility: 09/09/18 10:00
== END 2018-09-09 10:00 | disposition home or self-care (01) | DRG 305 ==
LOC: ASU 07:19 → 1E 12:57

== ENCOUNTER 2018-09-30 12:12 | Inpatient (IN) ==
--- NOTE | 2018-09-23 10:32 | Anesthesiology Consultation ---
Date of Service September 23, 2018 Assessment & Plan (1) Encounter for pre-operative examination: - Patient originally scheduled for surgery 09/08/18- Case cancelled due to uncontrolled HTN. While in OR prior to anesthetic induction, BP was reading 260- 285 systolic/113 -144 diastolic- patient was admitted for further evaluation. Given labetalol and hydralazine IV. Treated with cardene drip and transitioned to long-acting Nifedipine. BP well controlled and patient discharged home. Viral vernon has had multiple subsequent PCP followups since with adjustments of BP management. Most recent visit: 09/27/18: BP 151/78 (recheck 129/79). Continued on current regimen (Nifedipine has been increased to 90mg HS since discharge and patient continued on spironolactone/potassium). - PCP note: 09/07/18: "she has perioperative risk of 0.9-1.2% of cardiac complication with surgery. This represents low to moderate risk." - Nephro= 07/02/18= CKD stage IV. Baseline GFR 25. Kidney function "stable.. volume status and electrolyte balance are acceptable at this time.. will monitor." - Check BSG AM DOS Chart Review Chart Review: Acceptable Risk for Surgery (pending evaluation of vitals AM DOS) and Patient NOT seen in Pre Admission Testing History Surgery Operation Date: 09/30/18 12:45 Proposed Procedures p Left Total Shoulder Arthroplasty, Open Distal Clavical Excision, Excision Acromioclavicular Joint Spurs, Subacromial Decompression, Rotator Cuff Repair, Biceps Tenodesis - Gavin Mas MD Height/Weight Height: 5 ft 10 in Weight: 97.069 kg Allergies Allergy/AdvReac Type Severity Reaction Status Date / Time codeine Allergy Severe Anaphylaxis Verified 09/24/18 12:33 capsaicin Allergy Intermediate CREATINE Verified 09/24/18 12:33 ELEVATION diclofenac Allergy Intermediate CREATINE Verified 09/24/18 12:33 ELEVATION Diclopak Allergy Intermediate CREATINE Verified 04/06/17 09:34 ELEVATION isopropyl alcohol Allergy Intermediate CREATINE Verified 09/24/18 12:33 ELEVATION propylene glycol Allergy Intermediate CREATINE Verified 09/24/18 12:33 ELEVATION celecoxib [From Celebrex] Allergy Mild Rash Verified 09/24/18 12:33 Iodinated Contrast- Oral and Allergy Mild RASH Verified 09/24/18 12:33 IV Dye Sulfa (Sulfonamide Allergy Mild RASH TO Verified 09/24/18 12:33 Antibiotics) SULFA DRUGS tetracycline Allergy Mild RASH Verified 09/24/18 12:33 Medications Home Medications Medication Instructions Recorded Confirmed Last Taken Otezla 30 mg PO HS 07/26/18 09/24/18 09/07/18 21:30 Posture-D (with magnesium) 1 tab PO QAM 07/26/18 09/24/18 09/07/18 10:00 aspirin 81 mg PO 07/26/18 09/24/18 08/26/18 azelastine 2 spray INTRANASAL DAILY 07/26/18 09/24/18 09/02/18 08:30 benzonatate 100 mg PO BID PRN 07/26/18 09/24/18 09/07/18 21:30 calcipotriene 1 applic TOPICAL BID 07/26/18 09/24/18 08/06/18 cetirizine [Zyrtec] 5 mg PO BID 07/26/18 09/24/18 09/08/18 06:00 cholecalciferol (vitamin D3) 1,000 unit PO 07/26/18 09/24/18 09/07/18 10:00 [Vitamin D3] clobetasol 1 applic TOPICAL DAILY PRN 07/26/18 09/24/18 08/06/18 dicyclomine 20 mg PO TID PRN 07/26/18 09/24/18 09/07/18 10:00 duloxetine 60 mg PO [facility] 07/26/18 09/24/18 09/08/18 06:00 levalbuterol HCl 0.63 mg INHALATION Q4 PRN 07/26/18 09/24/18 08/06/18 levothyroxine 75 mcg PO QA 07/26/18 09/24/18 09/08/18 06:00 magnesium oxide 800 mg PO DAILY 07/26/18 09/24/18 09/07/18 10:00 omega 3-nrd-vxq-fish oil [Fish Oil] 1,000 mg PO BID 07/26/18 09/24/18 08/26/18 pantoprazole [Protonix] 40 mg PO DAILYBB 07/26/18 09/24/18 09/08/18 06:00 prednisone 5 mg PO 07/26/18 09/24/18 09/07/18 21:30 tacrolimus 1 applic TOPICAL BID 07/26/18 09/24/18 08/06/18 triamcinolone acetonide 1 applic TOPICAL BID PRN 07/26/18 09/24/18 08/06/18 potassium chloride [Klor-Con M20] 20 meq PO QAM #0 tab 07/27/18 09/24/18 09/07/18 21:30 folic acid 1 mg PO QAM 08/06/18 09/24/18 09/07/18 21:30 spironolactone 25 mg PO BID 08/06/18 09/24/18 09/07/18 21:30 nifedipine [Adalat CC] 90 mg PO HS 09/24/18 09/24/18 Unknown nitroglycerin 1 patch TRANSDERMAL DAILY 09/24/18 09/24/18 Unknown Past Medical History Medical History Osteoarthritis, knee GERD (gastroesophageal reflux disease) CONTROLLED WITH MEDS CKD (chronic kidney disease) stage 4, GFR 15-29 ml/min BASELINE CREATININE 2.0-2.2 RANGE; NEPHRO MONITORING Chronic steroid use Diabetes RECENT DIAGNOSIS; HGBA1C 7.2% ON 08/24/18 LABS; DECLINES MEDS AT THIS TIME Esophageal spasm HTN (hypertension) Hypothyroidism Irritable bowel syndrome Lumbar stenosis with neurogenic claudication Peptic ulcer disease 2016 Psoriatic arthropathy ON CHRONIC PREDNISONE 5MG HS Recent urinary tract infection TREATED; RESOLVED Schatzki's ring HX S/P EGD WITH DILATION (2016) Spinal meningioma FOLLOWS WITH [facility] (MONITORING; HAS BEEN STABLE WITH NO INDICATION FOR SURGICAL INTERVENTION) Past Family History Family History Other Family history non-contributory Past Surgical History Surgical History H/O thyroidectomy History of knee surgery History of arthroscopy of right shoulder History of cataract extraction History of cholecystectomy History of colonoscopy History of esophagogastroduodenoscopy (EGD) History of foot surgery History of lumbar fusion History of tonsillectomy History of total abdominal hysterectomy and bilateral salpingo-oophorectomy History of total knee arthroplasty Social History Smoking Status: Never smoker Hx Alcohol Use: No Hx Substance Use: No substance use type: does not use Testing Electrocardiogram Date: 09/09/18 NSR at 78bpm. Moderate voltage criteria for LVH, may be normal variant. NS TWA. Chest X-Ray Date: 08/06/18 Cardiac silhouette mildly enlarged. Heterogeneity of lung parenchyma. No focal opacity. Chronic right AC joint widening. Echocardiogram Date: 07/27/18 EF 60-65%. No RWMA. Grade I DD. Mild cLVH. Mild LAD. Stress Test Date: 06/03/17 Type: DSE Negative DSE/stress EKG for ischemia at 89% MPHR. No chest pain. No arrhythmia. Technically difficult study. EF 65-70%. Mild cLVH. Type 1 DD. AV sclerosis. Laboratory Results 09/09/18 WBC 11.2 H/H 11.3/34.7 PLATELETS 287 SODIUM 138 POTASSIUM 4.4 CHLORIDE 109 CO2 25 BUN 32 CREATININE 2.01 GFR 28.0 GLUCOSE 149 UA 4+ bacteria (started on cipro; surgeon aware) 08/06/18 PT 10.1 PTT 23.7 INR 1.0 08/24/18 TYPE AND SCREEN O-Ab-
--- NOTE | 2018-09-29 20:36 | History and Physical Report ---
DATE OF ADMISSION: 09/30/2018 CHIEF COMPLAINT: Chronic left shoulder pain. HISTORY OF PRESENT ILLNESS: This is a 73-year-old female patient of Dr. Mas'alexia complaining of chronic left shoulder pain, longstanding, now progressively getting worse. The patient has failed conservative treatment including physical therapy and injections. An MRI confirmed her diagnosis and the patient wished to proceed with a left total shoulder arthroplasty, open distal clavicle excision, rotator cuff repair, biceps tenodesis. PAST MEDICAL HISTORY: Heart murmur, hypertension, left-sided neuropathy, hypothyroidism, rheumatoid arthritis, osteoarthritis, spine problems, neck problems, upper back problems, acid reflux, hiatal hernia. PAST SURGICAL HISTORY: Thyroid surgery, right total knee replacement, right foot fusion, right shoulder surgery, gallbladder surgery. SOCIAL HISTORY: Nonsmoker, nondrinker. FAMILY HISTORY: Noncontributory. REVIEW OF SYSTEMS: The patient complains of chronic right shoulder pain and weakness. Otherwise, denies any shortness of breath, chest pain, nausea, vomiting or other joint complaints. MEDICATIONS: 1. Calcium 500 mg daily. 2. Klor-Con 20 mEq daily. 3. Folic acid 1 mg daily. 4. Nitroglycerin 0.4 mg sublingual as needed. 5. Azelastine 137 mcg spray 2 sprays in each nostril 2 times daily. 6. Clobetasol propionate powder daily. 7. Spironolactone 25 mg daily. 8. Vitamin D3 1000 units daily. 9. Mag oxide 400 mg daily. 10. Otezla 30 mg twice daily. 11. Tirosint 88 mcg daily. 12. Dicyclomine 20 mg 4 times daily. 13. Levalbuterol 0.63/3 mL solution nebulizer every 8 hours. 14. Benzonatate 100 mg 3 times daily. 15. Fish oil 1000 mg daily. 16. Aspirin 81 mg daily. 17. Triamcinolone acetate 0.025% topical cream apply 2 times daily to affected area. 18. Tacrolimus 0.03% topical ointment apply to affected area 2 times daily. 19. Calcipotriene 0.005% topical cream apply to affected area 2 times daily. 20. Prednisone 5 mg daily. 21. Norvasc 10 mg daily. ALLERGIES: CODEINE, SULFA, TETRACYCLINE, IVP DYE, CELEBREX, VOLTAREN. PHYSICAL EXAMINATION: GENERAL: Well-developed, well-nourished 73-year-old female in no acute distress. She is alert and oriented x3 and pleasant. HEENT: Normocephalic, atraumatic. Extraocular motions are intact. Pupils are equal and reactive to light. HEART: Regular rate and rhythm, no murmurs appreciated. LUNGS: Clear. ABDOMEN: Soft, nontender, bowel sounds present. EXTREMITIES: Left shoulder reveals full range of motion with pain and crepitation. She has 3+/5 strength globally. NEUROLOGIC: Neurovascularly, she is intact in her left upper extremity. DIAGNOSES: Left shoulder end-stage osteoarthritis and acromioclavicular joint arthritis, heart murmur, hypertension, left-sided neuropathy, hypothyroidism, rheumatoid arthritis, osteoarthritis, spine problems, neck problems, upper back problems, acid reflux and hiatal hernia. PLAN: The patient was advised of her diagnosis. Indications, risks, benefits, postop course have all been reviewed. The patient wished to proceed with a left total shoulder arthroplasty, distal clavicle excision, rotator cuff repair, biceps tenodesis. Necessary consent forms, preoperative testing and clearances will be obtained.
[~2018-09-30 12:12] MED LIST changes: +CEFAZOLIN 2000MG 2,000 MG/15 ML SYR IV SCH; -DEXAMETHASONE SOD INJ 4 MG/ML VIAL ONE; -EPINEPHrine INJ 1 MG/ML AMP ONE; -SODIUM CHLORIDE 0.9% 1000ML IV SCH
--- NOTE | 2018-09-30 12:47 | History & Physical Bridge Note ---
Date of Service September 30, 2018 History & Physical Bridge Note I have examined the patient, reviewed the History & Physical and in the interval since the performance of the History & Physical I have noted the following changes of clinical significance: no changes noted
[2018-09-30] MEDS ORDERED: DEXAMETHASONE SOD INJ 4 MG/ML VIAL ONE (13:20)
[2018-09-30] MEDS ORDERED: ePHEDrine sulfate 50 MG/ML SYR ONE ×2 (13:20→17:38)
[2018-09-30] MEDS ORDERED: PHENYLEPHRINE 100MCG/ML 5ML SYR ONE (13:20)
[2018-09-30] MEDS ORDERED: LARYING-O-JET KIT (LTA) ONE (13:20)
[2018-09-30] MEDS ORDERED: ONDANSETRON INJ 2 MG/ML 2 ML VIAL ONE (13:20)
[2018-09-30] MEDS ORDERED: NEOSTIGMINE METHYLSULFATE 5 MG/5 ML SYR ONE (13:20)
[2018-09-30] MEDS ORDERED: LIDOCAINE HCL 2% 2 ML VIAL/AMP(20MG/ML) INFIL ONE (13:20)
[2018-09-30] MEDS ORDERED: PROPOFOL IV EMULSION 10 MG/ML 20 ML VIAL IV ONE (13:20)
[2018-09-30] MEDS ORDERED: ROCURONIUM BROMIDE 10 MG/ML 5 ML VIAL ONE (13:20)
[2018-09-30] MEDS ORDERED: GLYCOPYRROLATE 0.2 MG/ML VIAL ONE (13:20)
[2018-09-30] MEDS ORDERED: fentaNYL citrate 100 MCG/2 ML VIAL ONE (13:20)
[2018-09-30] MEDS ORDERED: MIDAZOLAM HCL 1 MG/ML 2ML VIAL ONE (13:20)
[2018-09-30] MEDS ORDERED: BACITRACIN INJ 50,000 UNIT VIAL ONE (14:09)
[2018-09-30] MEDS ORDERED: EPINEPHrine INJ 1 MG/ML AMP ONE (15:23)
[2018-09-30] MEDS ORDERED: EpINEphrine HCL INJ 1 MG/ML 1ML SYRINGE ONE (15:24)
--- NOTE | 2018-09-30 19:50 | Post Operative Brief Note ---
Immediate Post Op Note v1 Date of Surgery September 30, 2018 Pre & Post Diagnosis Operation Date: 09/30/18 14:25 Pre-Op Diagnosis: Left Shoulder Osteoarthritis glenohumeral and acromioclavicular joints, rotator cuff tear supraspinatus, possible biceps tendinopathy, subacromial impingement Post-Op Diagnosis: Left Shoulder osteoarthritis rosalina humeral joint and acromial clavicular joints, high-grade bursal sided partial tear supraspinatus tendon rotator cuff, marked biceps tendinopathy. Procedure Operation Date: 09/30/18 14:25 Actual Procedures p Left Total Shoulder Arthroplasty, Open Distal Clavical Excision, Excision Acromioclavicular Joint Spurs, Subacromial Decompression, Rotator Cuff Repair, Biceps Tenodesis(Left) - Gavin Mas MD Surgeon Gavin Mas MD Ceramic Painter Jose PINA Estimated Blood Loss 75 Findings Consistent with Post-Op Diagnosis Specimens Humeral head and distal clavicle Drains Hemovac Drain Anesthesia Type General Regional Complications none Disposition Accompanied Patient To Recovery: No Disposition: Recovery Room Overlapping Procedure I was immediately available: during the entire case.
[2018-09-30] MEDS ORDERED: ONDANSETRON INJ 2 MG/ML 2 ML VIAL IV PRN ×2 (19:56→20:50)
[2018-09-30] MEDS ORDERED: ATROPINE SULFATE 0.1 MG/ML 10ML SYR IV PRN (19:56)
[2018-09-30] MEDS ORDERED: LABETALOL HCL IV 5 MG/ML 20ML IV PRN (19:56)
[2018-09-30] MEDS ORDERED: HYDROmorphone INJ 1 MG/ML SYRINGE IV PRN (19:56)
--- NOTE | 2018-09-30 20:12 | Operative Report ---
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 Procedure Operation Date: 09/30/18 14:25 Actual Procedures p Left Total Shoulder Arthroplasty, Open Distal Clavical Excision, Excision Acromioclavicular Joint Spurs, Subacromial Decompression, Rotator Cuff Repair, Biceps Tenodesis(Left) - Gavin Mas MD Surgeon Gavin Mas MD Centerless Grinder Set Up Operator Jose PINA Estimated Blood Loss 75 Findings Consistent with Post-Op Diagnosis Specimens Humeral head and distal clavicle Drains 2 Hemovac Anesthesia Type General Regional Complications none Disposition Accompanied Patient To Recovery: No Disposition: Recovery Room Indications 71-year-old female with chronic left shoulder pain. Radiographs demonstrate states she is [id number] on axillary view. MRI demonstrates small non- retracted rotator cuff tear and some biceps tenosynovitis possible biceps tendinopathy. Patient likely having impingement from inferior AC joint spurs. Description of Procedure The patient was identified taken to the operating room and anesthetized under a general and regional block anesthesia. A towel roll was placed under the medial border of the scapula of the left shoulder. The patient's head was placed on a foam headrest and protective eyewear was placed and the extremities were well padded. The arm was draped free in order to manipulate the shoulder as n ecessary. The shoulder exam demonstrated she had good range of motion with some ligamentous laxity with 170 degrees forward elevation and 80 degrees external rotation. The shoulder was sterilely prepped and draped in the usual sterile fashion. An anterior deltopectoral approach was performed. A longitudinal incision was made in the interval. The skin was incised sharply and subcutaneous tissues dissected down to the fascia. There was no cephalic vein. Small crossing veins were cauterized. The clavipectoral fascia was divided at the lateral margin of the conjoined tendon and divided up to the level of the coracoacromial ligament which was preserved. The upper 1 cm of the pectoralis was released for inferior exposure. The biceps tendon findings demonstrated chronic biceps tenosynovitis and in the glenohumeral joint marked tendinopathy. The rotator cuff tendon findings demonstrated a 14 mm wide high-grade partial tear supraspinatus bursal sided tear. There was subacromial bursitis.. The circumflex vessels were identified and tied off with silk ties and divided laterally. The rotator interval was opened up and extended down to the glenoid. The biceps tendon was identified and tenodesed to the pectoralis tendon with [id number]-[id number] #2 FiberWire sutures in the proximal biceps was resected. The subscapularis tendon was taken down with a trans-tendinous incision leaving a cuff of tissue for repair on the lesser tuberosity. The incision was carried down to the tendon and the capsule and a #1 Vicryl suture was placed into the free end of the subscapularis tendon. The capsule was subperiosteally dissected off the inferior neck of the humerus exposing the humeral osteophytes which demonstrated mild to moderate osteophytes only circumferentially. The osteophytes were excised with an artist chisel and a rongeur. The capsular release along the inferior neck of the humerus was completed. The humerus was then retracted posterior to the glenoid with a Fukuda retractor. The remainder of the biceps tendon and labrum were resected. The glenoid findings demonstrated she had grade 4 changes in the glenohumeral joint humeral and glenoid side with majority of glenoid being grade 3. Because of ligamentous laxity at this resected the labrum did not do any capsular releases. The articular cartilage was curetted off the glenoid so was fully exposed bone so we could see the appropriate depth and version of the glenoid for appropriate glenoid placement. The humeral head was exposed with some extension and external rotation and in anatomic head cut was made using the oscillating saw. The humeral head findings demonstrated grade 4 wear centrally and grade 3 wear peripherally. The humeral head was then retracted posterior to the glenoid with Hohmann retractors and Bankart retractor placed anteriorly. A central drill hole was made into the glenoid. The glenoid was sized for a size 44 component. The Tornier ascend flex total shoulder arthroplasty system was used and the Affinity Cortiloc glenoid component was chosen. The glenoid was reamed and the central drill widened and the guide for the peg holes was placed in the peg holes were drilled and a trial component was placed with a tight fit. The trial was removed and the glenoid was irrigated with pulsatile lavage antibiotic solution and the drill holes were dried and packed with epinephrine-soaked tampons for hemostasis. The [place] G cement was vacuum mixed. The final component was cemented into position and held in position with pressure until the cement cured. Attention was taken to the humeral preparation. A centralizing awl was used in the canal followed by broaches up to a size 3. This had the appropriate fit and fill. A size 48 x 18 millimeter 1.5 offset humeral head was then used. It was rotated into appropriate position. A trial reduction was performed and the shoulder was stable. The trial was removed and the humerus and canal were irrigated with antibiotic solution with bacitracin. 3 drill holes were made into the hard bone in the bicipital groove lateral to the lesser tuberosity and 3 #5 FiberWire transosseous sutures were placed for repair of the subscapularis. Drill holes were made in the greater tuberosity and cutting needles were used to pass sutures through the greater tuberosity and #2 FiberWire sutures were placed in Leonardo-Bridger suture technique x2 through the rotator cuff tear. Sutures initially left untied. After further irrigation of the canal and the final components were assembled. The final components were the 3 a standard PTC Tornier ascend flex stem with the 48 x 18 low offset head. The implant was then impacted into the humerus with a tight press-fit. The humerus was reduced to the glenoid and stability verified. The subscapularis was repaired with the #5 FiberWire sutures in a Leonardo-Bridger suture technique and lateral row fixation with [id number] #2 FiberWire in the soft tissue. The rotator interval was closed and maximal external rotation. The rotator cuff was repaired with the previously placed #2 FiberWire sutures in Leonardo-Bridger suture . the pectoralis was then closed with [id number] #2 FiberWire suture. The sutures were placed through the biceps tendon to reinforce biceps tenodesis. A transverse incision was made across the AC joint. Skin was incised sharply subcutaneous flaps are elevated. The AC joint had dorsal spurs. The deltotrapezial fascia was divided longitudinally across the AC joint. Subperiosteal dissection was performed to expose 1 cm distal clavicle which was resected with an oscillating saw. The spurs were resected and the undersurface spurs on the acromion were resected with a ronguer and Tiemann rasp was used to smooth them off to decompress the subacromial space. The wound was copiously irrigated with pulsatile lavage antibiotic solution. The deltoid trapezius fascia was repaired with [id number] #2 FiberWire sutures. The subcu tissues were closed with 2-0 Vicryl sutures and skin closed with brooke. 2 Hemovac drains were placed. The deltopectoral interval was closed with uetpkp-[id number] #1 Vicryl sutures. The subcutaneous tissues were closed with interrupted 2-0 Vicryl and the skin was closed with brooke and a sterile dressing was applied. The patient tolerated the procedure well. Jose PINA my physician clinical lab assistant, assisted in soft tissue retraction instrument management suture management and assisted in the subcutaneous and skin closure and will participate in the postoperative care the patient. I attest to the content of the Intraoperative Record and any orders documented therein. Any exceptions are noted below.
[2018-09-30] MEDS ORDERED: TRAMADOL HCL 50 MG TABLET PO PRN (20:13)
--- NOTE | 2018-09-30 20:27 | Anesthesiology Progress Note ---
Date of Service September 30, 2018 Anesthesia Post Procedure Vital Signs Vital Signs: Temp Pulse Resp BP Pulse Ox 09/30/18 20:15 61 21 125/97 99 09/30/18 20:05 61 22 144/83 H 99 09/30/18 19:55 36.3 C L 77 20 151/93 H 99 Transfer of Care Handoff Completed per policy Notes Mental Status: alert / awake / arousable Patient Amnestic to Procedure: Yes Nausea / Vomiting: adequately controlled Pain: adequately controlled Airway Patency, RR, SpO2: stable & adequate BP & HR: stable & adequate Hydration State: stable & adequate Anesthetic Complications: no major complications apparent
[2018-09-30] MEDS ORDERED: fentaNYL citrate 100 MCG/2 ML VIAL IV PRN (20:30)
[2018-09-30] MEDS ORDERED: MAGNESIUM HYDROXIDE SUSP 30 ML UDC PO PRN (20:50)
[2018-09-30] MEDS ORDERED: DICYCLOMINE HCL 20 MG TAB PO PRN (20:50)
[2018-09-30] MEDS ORDERED: SODIUM CHLORIDE 0.9% 1000ML 1,000 ML IV SCH (20:50)
[2018-09-30] MEDS ORDERED: BISACODYL 10 MG SUPP PR PRN (20:50)
[2018-09-30] MEDS ORDERED: LEVALBUTEROL HCL 0.63 MG/3 ML NEB INH PRN (20:50)
[2018-09-30] MEDS ORDERED: BENZONATATE 100 MG CAPSULE PO PRN (20:50)
[2018-09-30] MEDS ORDERED: NALOXONE HCL 0.4 MG/1 ML VIAL/CARP IV PRN (20:50)
[2018-09-30] MEDS ORDERED: TRIAMCINOLONE ACET 0.025% CR 15 GM TUBE TOP PRN (20:50)
--- NOTE | 2018-09-30 21:26 | XRay Report ---
XR shoulder LT min 2V routine CLINICAL HISTORY: Post shoulder surgery postoperative COMPARISON: None. DISCUSSION: Anatomic alignment post total left shoulder arthroplasty. There has been a partial resect ion of the distal clavicle. Alignment is anatomic. Expected postoperative soft tissue change IMPRESSION: Anatomic alignment post total left shoulder arthroplasty. The above report was generated using voice recognition software. It may contain grammatical, syntax or spelling errors. Electronically signed by: Jose Tripp M.D. 09/30/2018 9:25 PM
[2018-09-30] MEDS ORDERED: MoRPHine SULFATE 4 MG/ML 1 ML CARP\\VIAL IV PRN (21:58)
[2018-09-30] MEDS ORDERED: ACETAMINOPHEN 500 MG TAB PO SCH (22:00)
[2018-09-30] MEDS: POTASSIUM CHLORIDE 20 MEQ TABCR PO SCH (22:33)
[2018-09-30] MEDS: DOCUSATE SODIUM 100 MG CAP PO SCH (22:33)
[2018-09-30] MEDS: NIFEdipine EXTENDED REL 30 MG TABCR PO SCH (22:33)
[2018-09-30] MEDS: SPIRONOLACTONE 25 MG TAB PO SCH (22:33)
[2018-09-30] MEDS: SENNA 8.6 MG TAB PO SCH (22:33)
[2018-09-30] MEDS: CETIRIZINE HCL 10 MG TABLET PO SCH (22:33)
[2018-09-30] MEDS: predniSONE 5 MG TAB PO SCH (22:34)
[2018-09-30] MEDS: ASPIRIN 81 MG ECTAB PO SCH (22:34)
[2018-09-30] MEDS: CHOLECALCIFEROL 1,000 UNITS TAB PO SCH (22:34)
[2018-09-30] MEDS: ACETAMINOPHEN 500 MG TAB PO SCH (22:34)
[2018-09-30] MEDS: CEFAZOLIN 2000MG 2,000 MG/15 ML SYR IV SCH (23:47)
[2018-10-01] MEDS: TRAMADOL HCL 50 MG TABLET PO PRN ×4 (04:43→23:42)
[2018-10-01] MEDS: LEVOTHYROXINE SODIUM 75 MCG TABLET PO SCH (05:32)
[2018-10-01] MEDS: PANTOprazole 40 MG TAB PO SCH (05:32)
[2018-10-01] MEDS: ACETAMINOPHEN 500 MG TAB PO SCH ×3 (05:32→21:00)
[2018-10-01] MEDS: NITROGLYCERIN 0.4 MG/HR PATCH TD SCH (05:33)
[2018-10-01] MEDS: MoRPHine SULFATE 2 MG/ML CARP IV PRN ×2 (05:33→07:58)
[2018-10-01 05:53] LABS: Basophils # (auto) 0.01 K/uL (0-0.2); Basophils % (auto) 0.1 %; Hematocrit (blood only) 29.3 % (37-47); Immature Granulocytes # (auto) 0.27 K/uL (0.00-0.02); Immature Granulocytes % (auto) 1.7 %; Lymphocytes # (auto) 1.15 K/uL (1.2-3.4); Lymphocytes % (auto) 7.4 %; Mean Corpuscular Hgb Conc 34.1 g/dL (32-36); Mean Corpuscular Volume 86.2 fL (80-100); Monocytes # (auto) 0.96 K/uL (0.11-0.59); Monocytes % (auto) 6.2 %; Neutrophils % (auto) 84.6 %; Platelet Count 593 K/uL (130-400); RDW Coefficient of Variation 16.9 % (11.5-14.5); RDW Standard Deviation 53.7 fL (36.4-46.3); White Blood Count 15.59 K/uL (4.8-10.8)
[2018-10-01] MEDS ORDERED: SODIUM CHLORIDE 0.9% 1000ML IV SCH (06:00)
[2018-10-01 06:26] LABS: BUN Creatinine Ratio 11.9 (10-20); Calcium 8.2 mg/dl (8.5-10.1); Creatinine Clr Calc Pharmacy 22.1 ml/min; Est GFR (African American) 17.8; Est GFR (Non-African American) 15.4; Potassium 5.3 mmol/L (3.5-5.1)
[2018-10-01] MEDS ORDERED: LEVOTHYROXINE SODIUM 75 MCG TABLET PO SCH (06:30)
[2018-10-01] MEDS ORDERED: PNEUMOCOCCAL POLYSACCHARIDES 25 MCG/0.5 ML VIAL/SYR IM ONE (07:45)
[2018-10-01] MEDS ORDERED: PNEUMOCOCCAL ADMINISTRATION CHARGE ONE (07:45)
[2018-10-01] MEDS: CEFAZOLIN 2000MG 2,000 MG/15 ML SYR IV SCH (07:58)
[2018-10-01] MEDS: AZELASTINE~ORDER AWAITING ACTION SCH ×2 (08:06→16:42)
[2018-10-01] MEDS: MULTIVITAMIN TAB PO SCH (08:07)
[2018-10-01] MEDS: [UNRECOGNIZED DRUG - OTHER] SCH ×2 (08:07→16:42)
[2018-10-01] MEDS: CLOBETASOL~ORDER AWAITING ACTION SCH ×2 (08:07→16:42)
[2018-10-01] MEDS: DULOXETINE HCL 60 MG CAP PO SCH (08:07)
[2018-10-01] MEDS ORDERED: SODIUM CHLORIDE 0.9% 1000ML 500 ML IV ONE (08:07)
[2018-10-01] MEDS: MAGNESIUM OXIDE 400 MG TAB PO SCH (08:08)
[2018-10-01] MEDS: POTASSIUM CHLORIDE 20 MEQ TABCR PO SCH (08:09)
[2018-10-01] MEDS: CETIRIZINE HCL 10 MG TABLET PO SCH ×2 (08:09→20:56)
[2018-10-01] MEDS: DOCUSATE SODIUM 100 MG CAP PO SCH ×2 (08:09→20:56)
[2018-10-01] MEDS: SPIRONOLACTONE 25 MG TAB PO SCH (08:13)
[2018-10-01] MEDS ORDERED: SODIUM CHLORIDE 0.9% 1000ML 1,000 ML IV SCH (08:30)
[2018-10-01] MEDS ORDERED: CHOLECALCIFEROL PO SCH (09:00)
[2018-10-01] MEDS ORDERED: CALCIUM PHOSPHATE PO SCH (09:00)
[2018-10-01] MEDS ORDERED: NITROGLYCERIN 0.4 MG/HR PATCH TD SCH (09:00)
[2018-10-01] MEDS ORDERED: [UNRECOGNIZED DRUG - OTHER] PO SCH (09:00)
[2018-10-01] MEDS ORDERED: MAGNESIUM OXIDE PO SCH (09:00)
--- NOTE | 2018-10-01 09:16 | Orthopedic Progress Note ---
Date of Service October 01, 2018 Assessment & Plan (1) Status post total replacement of left shoulder: POD#1 Left TSA -Pain management -PT/OT -DVT prophylaxis-SCDs -D/C planning-home with home health PT -AM labs- Hgb at 10. Creatinine is elevated at 2.9 from 2 per op. Med consult is already placed. Subjective Patient is POD#1 from her left TSA. She is having some pain, controlled with pain meds. No other complaints. Denies chest pain, sob, n/v/d. Review of Systems Review of Systems: All systems reviewed & are unremarkable except as noted in HPI & below Physical Exam Physical Exam: Sitting in bedside chair. Sling in place. Dressing is c/d/i. Drain intact. Sensation and n/v status intact. Results & Data Vital Signs (Past 12 Hours) Vital Signs Temp Pulse Pulse Resp BP Pulse Ox 10/01/18 07:35 37.1 C 62 18 124/72 96 10/01/18 06:58 36.9 C 59 L 20 124/71 96 10/01/18 04:00 36.9 C 55 L 18 138/78 96 09/30/18 23:53 36.7 C 60 18 137/76 96 09/30/18 22:52 60 17 150/81 H 99 09/30/18 21:57 36.9 C 63 17 139/85 98 09/30/18 21:25 36.9 C 70 17 140/81 96 Laboratory Results Lab Results 09/30/18 09/30/18 09/30/18 Range/Units 12:27 12:30 12:46 WBC (4.8-10.8) K/uL RBC (4.2-5.4) M/uL Hgb (12.0-16.0) g/dL Hct (37-47) % MCV (80-100) fL MCH (25-34) pg MCHC (32-36) g/dL RDW Std Deviation (36.4-46.3) fL RDW Coeff of Amrita (11.5-14.5) % Plt Count (130-400) K/uL MPV (7.4-10.4) fL Immature Gran % (Auto) % Neut % (Auto) % Lymph % (Auto) % [place] % (Auto) % Eos % (Auto) % Baso % (Auto) % Immature Gran # (Auto) (0.00-0.02) K/uL Neut # (Auto) (1.4-6.5) K/uL Lymph # (Auto) (1.2-3.4) K/uL [place] # (Auto) (0.11-0.59) K/uL Eos # (Auto) (0-0.5) K/uL Baso # (Auto) (0-0.2) K/uL Sodium (136-145) mmol/L Potassium (3.5-5.1) mmol/L Chloride (98-107) mmol/L Carbon Dioxide (21-32) mmol/L Anion Gap (3-11) BUN (7-18) mg/dl Creatinine (0.6-1.2) mg/dl Est Cr Clr Drug Dosing ml/min Est GFR ( Amer) Est GFR (Non-Af Amer) BUN/Creatinine Ratio (10-20) Glucose (70-99) mg/dl POC Glucose 111 H (70-99) Calcium (8.5-10.1) mg/dl Hepatitis C Ab Screen Neg (Neg) Blood Type O Negative Antibody Screen NEGATIVE 09/30/18 10/01/18 10/01/18 Range/Units 20:00 05:28 05:28 WBC 15.59 H (4.8-10.8) K/uL RBC 3.40 L (4.2-5.4) M/uL Hgb 10.0 L (12.0-16.0) g/dL Hct 29.3 L (37-47) % MCV 86.2 (80-100) fL MCH 29.4 (25-34) pg MCHC 34.1 (32-36) g/dL RDW Std Deviation 53.7 H (36.4-46.3) fL RDW Coeff of Amrita 16.9 H (11.5-14.5) % Plt Count 593 H (130-400) K/uL MPV 9.0 (7.4-10.4) fL Immature Gran % (Auto) 1.7 % Neut % (Auto) 84.6 % Lymph % (Auto) 7.4 % [place] % (Auto) 6.2 % Eos % (Auto) 0.0 % Baso % (Auto) 0.1 % Immature Gran # (Auto) 0.27 H (0.00-0.02) K/uL Neut # (Auto) 13.20 H (1.4-6.5) K/uL Lymph # (Auto) 1.15 L (1.2-3.4) K/uL [place] # (Auto) 0.96 H (0.11-0.59) K/uL Eos # (Auto) 0.00 (0-0.5) K/uL Baso # (Auto) 0.01 (0-0.2) K/uL Sodium 138 (136-145) mmol/L Potassium 5.3 H (3.5-5.1) mmol/L Chloride 108 H (98-107) mmol/L Carbon Dioxide 23 (21-32) mmol/L Anion Gap 7.0 (3-11) BUN 35 H (7-18) mg/dl Creatinine 2.92 H (0.6-1.2) mg/dl Est Cr Clr Drug Dosing 22.1 ml/min Est GFR ( Amer) 17.8 Est GFR (Non-Af Amer) 15.4 BUN/Creatinine Ratio 11.9 (10-20) Glucose 144 H (70-99) mg/dl POC Glucose 159 H (70-99) Calcium 8.2 L (8.5-10.1) mg/dl Hepatitis C Ab Screen (Neg) Blood Type Antibody Screen
[2018-10-01] MEDS: MoRPHine SULFATE 4 MG/ML 1 ML CARP\\VIAL IV PRN ×2 (13:02→17:02)
[2018-10-01] MEDS ORDERED: DEXTROSE 50% 50 ML SYRINGE IV PRN (14:30)
[2018-10-01] MEDS ORDERED: GLUCOSE 10 TABS/TUBE PO PRN (14:30)
[2018-10-01] MEDS ORDERED: CARBOHYDRATES FOR HYPOGLYCEMIA PO PRN (14:30)
[2018-10-01] MEDS ORDERED: GLUCOSE 40% GEL 15 GM TUBE PO PRN (14:30)
[2018-10-01] MEDS ORDERED: GLUCAGON FOR INJ 1 MG VIAL SQ PRN (14:30)
--- NOTE | 2018-10-01 14:37 | Hospitalist Consultation ---
Date of Consultation October 01, 2018 Assessment & Plan (1) Status post total replacement of left shoulder: - Completed on 09/30/18, POD#1. - Pain control per primary team. - DVT ppx with SCDs. - PT/OT evaluation ordered. (2) Acute anemia: - Hemoglobin trending down -- likely intra op blood loss and dilutional. - Monitor H/H daily. (3) Essential hypertension: - Surgery was originally scheduled on 09/08, was delayed due to uncontrolled HTN. - Continue Nifedipine 90 mg qhs and Nitro patch as prescribed. - Holding Spironolactone 25 mg BID in setting of JULIO. - BP has been well controlled as inpatient. (4) GERD (gastroesophageal reflux disease): - Continue PPI daily. (5) Acute kidney injury: - Creatinine increased to 2.9 post op -- baseline is 1.9-2.1. - May be prerenal related to dehydration vs. other. - Received 500 cc bolus this morning; repeat BMP is pending. - Hold Spironolactone in setting of JULIO. (6) CKD (chronic kidney disease), stage IV: - Renally dose all meds. (7) Type II diabetes mellitus: - Most recent hemoglobin A1C was 7.2. - Is not currently on meds at home. - Gluc checks have been elevated, on steroids at home -- will start SSI coverage. (8) Hypothyroidism: - Continue Levothyroxine 75 mcg daily - TSH was 2.3 in July 2018. (9) Schatzki's ring: - Monitored as outpatient. (10) Peptic ulcer disease: - Continue PPI daily. - Monitor CBC qAM post operatively. (11) Psoriasis: - Continue Prednisone 5 mg qhs (home dose). - No evidence of acute exacerbation -- also uses topical creams if needed. (12) Hyperkalemia: - K level 5.3 this morning -- repeat level is pending. - Holding home KCl supplementation. (13) Depression: - Continue Cymbalta as prescribed. (14) Spinal meningioma: - Monitored as outpatient. (15) DVT prophylaxis: - SCDs; Pt. is not currently receiving pharmacologic ppx, has h/o PUD. Dispo: Will continue to follow, please call with any questions. Supervising Physician Co-Signing Physician Notes Attending Attestation - Chart reviewed in detail, care plan d/w SILVANA Whitehead. I agree w/ the ellis components of her documentation. 73yo female with steroid-dependent psoriatic arthritis. Now s/p left total shoulder replacement. CKD stage 4 at baseline - has concomitant acute kidney injury. Serial labs to monitor creatinine. Mild acute blood loss anemia - follow H/H as well. Vitals are stable; no hypotension. Continue chronic prednisone. DVT proph per primary team. Hunter Blair MD History of Present Illness Reason for Consultation: Medical Management Attending Physician: Gavin Mas MD History of Present Illness Ms. Vergara is status post left total shoulder replacement, doing well. Rates pain as a 10/10 on pain scale today. Denies urinary retention. Last BM was 2 days ago. Allergies Allergy/AdvReac Type Severity Reaction Status Date / Time codeine Allergy Severe Anaphylaxis Verified 09/30/18 12:41 capsaicin Allergy Intermediate CREATINE Verified 09/30/18 12:41 ELEVATION diclofenac Allergy Intermediate CREATINE Verified 09/30/18 12:41 ELEVATION Diclopak Allergy Intermediate CREATINE Verified 04/06/17 09:34 ELEVATION isopropyl alcohol Allergy Intermediate CREATINE Verified 09/30/18 12:41 ELEVATION propylene glycol Allergy Intermediate CREATINE Verified 09/30/18 12:41 ELEVATION celecoxib [From Celebrex] Allergy Mild Rash Verified 09/30/18 12:41 Iodinated Contrast- Oral and Allergy Mild RASH Verified 09/30/18 12:41 IV Dye Sulfa (Sulfonamide Allergy Mild RASH TO Verified 09/30/18 12:41 Antibiotics) SULFA DRUGS tetracycline Allergy Mild RASH Verified 09/30/18 12:41 Home Medications Home Medications Medication Instructions Recorded Confirmed Type Posture-D (with magnesium) 1 tab PO QAM 07/26/18 09/30/18 History aspirin 81 mg PO HS 07/26/18 09/30/18 History azelastine 2 spray INTRANASAL DAILY 07/26/18 09/30/18 History benzonatate 100 mg PO BID PRN 07/26/18 09/24/18 History calcipotriene 1 applic TOPICAL BID 07/26/18 09/24/18 History cetirizine [Zyrtec] 5 mg PO BID 07/26/18 09/30/18 History cholecalciferol (vitamin D3) 1,000 unit PO HS 07/26/18 09/30/18 History [Vitamin D3] clobetasol 1 applic TOPICAL DAILY PRN 07/26/18 09/24/18 History dicyclomine 20 mg PO TID PRN 07/26/18 09/30/18 History duloxetine 60 mg PO QAM 07/26/18 09/30/18 History levalbuterol HCl 0.63 mg INHALATION Q4 PRN 07/26/18 09/24/18 History levothyroxine 75 mcg PO QAM 07/26/18 09/30/18 History magnesium oxide 800 mg PO DAILY 07/26/18 09/30/18 History omega 2-wfq-npd-fish oil [Fish Oil] 1,000 mg PO BID 07/26/18 09/30/18 History pantoprazole [Protonix] 40 mg PO DAILYBB 07/26/18 09/30/18 History prednisone 5 mg PO HS 07/26/18 09/30/18 History tacrolimus 1 applic TOPICAL BID 07/26/18 09/24/18 History triamcinolone acetonide 1 applic TOPICAL BID PRN 07/26/18 09/24/18 History spironolactone 25 mg PO BID 08/06/18 09/30/18 History nifedipine [Adalat CC] 90 mg PO HS 09/24/18 09/30/18 History nitroglycerin 1 patch TRANSDERMAL DAILY 09/24/18 09/30/18 History potassium chloride [Klor-Con M20] 20 meq PO BID 09/30/18 09/30/18 History acetaminophen [Tylenol Extra 1,000 mg PO Q8H 30 Days #180 tab 10/02/18 Rx Strength] tramadol 50 - 100 mg PO Q4H PRN #30 tab 10/02/18 Rx Patient History Medical History Osteoarthritis, knee GERD (gastroesophageal reflux disease) CONTROLLED WITH MEDS CKD (chronic kidney disease) stage 4, GFR 15-29 ml/min BASELINE CREATININE 2.0-2.2 RANGE; NEPHRO MONITORING Chronic steroid use Diabetes RECENT DIAGNOSIS; HGBA1C 7.2% ON 08/24/18 LABS; DECLINES MEDS AT THIS TIME Esophageal spasm HTN (hypertension) Hypothyroidism Irritable bowel syndrome Lumbar stenosis with neurogenic claudication Peptic ulcer disease 2017 Psoriatic arthropathy ON CHRONIC PREDNISONE 5MG HS Recent urinary tract infection TREATED; RESOLVED Schatzki's ring HX S/P EGD WITH DILATION (2017) Spinal meningioma FOLLOWS WITH [facility] (MONITORING; HAS BEEN STABLE WITH NO INDICATION FOR SURGICAL INTERVENTION) Surgical History H/O thyroidectomy History of knee surgery History of arthroscopy of right shoulder History of cataract extraction History of cholecystectomy History of colonoscopy History of esophagogastroduodenoscopy (EGD) History of foot surgery History of lumbar fusion History of tonsillectomy History of total abdominal hysterectomy and bilateral salpingo-oophorectomy History of total knee arthroplasty Family History Other Family history non-contributory Social History Preferred Language: [place] Communication Ability: Effective Beliefs That Will Affect Care: None marital status: Current Living Situation: Spouse 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 Safe at Home: Yes Smoking Status: Never smoker Second Hand Exposure: No Hx Alcohol Use: No Hx Substance Use: No Review of Systems Review of Systems: All systems reviewed & are unremarkable except as noted in HPI & below Constitutional: no fever, no chills, no fatigue and no weakness Respiratory: no cough, no dyspnea, no dyspnea on exertion and no wheezing Cardiovascular: no chest pain, no palpitations and no edema Gastrointestinal: + constipation; no abdominal pain and no nausea Genitourinary: no difficulty urinating Musculoskeletal: + joint pain; no back pain Integumentary: no non-healing lesions Allergy / Immunological: no rash Physical Exam Physical Exam: General: Resting comfortably in no apparent distress HEENT: NC/AT; PERRLA with EOMI; [place] conjunctiva, MMM. No erythema of posterior pharynx Neck: Supple and nontender Cardiac: RRR Lungs: CTA bilaterally; No rhonchi, wheezing, or rales Abdomen: Bowel normoactive X 4; Nontender to palpation Extremities: Warm. No edema present. Dressing in place over left shoulder, digits intact to light sensation on left hand. Neuro: No focal weakness Skin: No rash Results & Data Vital Signs (Past 12 Hours) Vital Signs Temp Pulse Pulse Resp BP Pulse Ox 10/01/18 07:35 37.1 C 62 18 124/72 96 05/10/19 06:58 36.9 C 59 L 20 124/71 96 10/01/18 04:00 36.9 C 55 L 18 138/78 96 Laboratory Results Lab Results 09/30/18 09/30/18 09/30/18 Range/Units 12:27 12:30 12:46 WBC (4.8-10.8) K/uL RBC (4.2-5.4) M/uL Hgb (12.0-16.0) g/dL Hct (37-47) % MCV (80-100) fL MCH (25-34) pg MCHC (32-36) g/dL RDW Std Deviation (36.4-46.3) fL RDW Coeff of Amrita (11.5-14.5) % Plt Count (130-400) K/uL MPV (7.4-10.4) fL Immature Gran % (Auto) % Neut % (Auto) % Lymph % (Auto) % [place] % (Auto) % Eos % (Auto) % Baso % (Auto) % Immature Gran # (Auto) (0.00-0.02) K/uL Neut # (Auto) (1.4-6.5) K/uL Lymph # (Auto) (1.2-3.4) K/uL [place] # (Auto) (0.11-0.59) K/uL Eos # (Auto) (0-0.5) K/uL Baso # (Auto) (0-0.2) K/uL Sodium (136-145) mmol/L Potassium (3.5-5.1) mmol/L Chloride (98-107) mmol/L Carbon Dioxide (21-32) mmol/L Anion Gap (3-11) BUN (7-18) mg/dl Creatinine (0.6-1.2) mg/dl Est Cr Clr Drug Dosing ml/min Est GFR ( Amer) Est GFR (Non-Af Amer) BUN/Creatinine Ratio (10-20) Glucose (70-99) mg/dl POC Glucose 111 H (70-99) Calcium (8.5-10.1) mg/dl Hepatitis C Ab Screen Neg (Neg) Blood Type O Negative Antibody Screen NEGATIVE 09/30/18 10/01/18 10/01/18 Range/Units 20:00 05:28 05:28 WBC 15.59 H (4.8-10.8) K/uL RBC 3.40 L (4.2-5.4) M/uL Hgb 10.0 L (12.0-16.0) g/dL Hct 29.3 L (37-47) % MCV 86.2 (80-100) fL MCH 29.4 (25-34) pg MCHC 34.1 (32-36) g/dL RDW Std Deviation 53.7 H (36.4-46.3) fL RDW Coeff of Amrita 16.9 H (11.5-14.5) % Plt Count 593 H (130-400) K/uL MPV 9.0 (7.4-10.4) fL Immature Gran % (Auto) 1.7 % Neut % (Auto) 84.6 % Lymph % (Auto) 7.4 % [place] % (Auto) 6.2 % Eos % (Auto) 0.0 % Baso % (Auto) 0.1 % Immature Gran # (Auto) 0.27 H (0.00-0.02) K/uL Neut # (Auto) 13.20 H (1.4-6.5) K/uL Lymph # (Auto) 1.15 L (1.2-3.4) K/uL [place] # (Auto) 0.96 H (0.11-0.59) K/uL Eos # (Auto) 0.00 (0-0.5) K/uL Baso # (Auto) 0.01 (0-0.2) K/uL Sodium 138 (136-145) mmol/L Potassium 5.3 H (3.5-5.1) mmol/L Chloride 108 H (98-107) mmol/L Carbon Dioxide 23 (21-32) mmol/L Anion Gap 7.0 (3-11) BUN 35 H (7-18) mg/dl Creatinine 2.92 H (0.6-1.2) mg/dl Est Cr Clr Drug Dosing 22.1 ml/min Est GFR ( Amer) 17.8 Est GFR (Non-Af Amer) 15.4 BUN/Creatinine Ratio 11.9 (10-20) Glucose 144 H (70-99) mg/dl POC Glucose 159 H (70-99) Calcium 8.2 L (8.5-10.1) mg/dl Hepatitis C Ab Screen (Neg) Blood Type Antibody Screen
[2018-10-01 15:06] LABS: BUN Creatinine Ratio 11.4 (10-20); Creatinine Clr Calc Pharmacy 21.5 ml/min; Est GFR (African American) 17.3; Magnesium 2.6 mg/dl (1.8-2.4); Potassium 4.7 mmol/L (3.5-5.1)
[2018-10-01 15:07] LABS: Calcium 8.8 mg/dl (8.5-10.1)
[2018-10-01] MEDS: SODIUM CHLORIDE 0.9% 1000ML 1,000 ML IV SCH (19:47)
[2018-10-01] MEDS: INSULIN ASPART 100 UNITS/ML 3 ML PEN SC SCH ×2 (20:36→21:51)
[2018-10-01] MEDS: SENNA 8.6 MG TAB PO SCH (20:56)
[2018-10-01] MEDS: predniSONE 5 MG TAB PO SCH (20:56)
[2018-10-01] MEDS: CHOLECALCIFEROL 1,000 UNITS TAB PO SCH (20:56)
[2018-10-01] MEDS: ASPIRIN 81 MG ECTAB PO SCH (20:56)
[2018-10-01] MEDS: NIFEdipine EXTENDED REL 30 MG TABCR PO SCH (20:56)
[2018-10-02] MEDS: [UNRECOGNIZED DRUG - OTHER] SCH ×2 (00:02→07:32)
[2018-10-02] MEDS: AZELASTINE~ORDER AWAITING ACTION SCH ×2 (00:02→07:31)
[2018-10-02] MEDS: CLOBETASOL~ORDER AWAITING ACTION SCH ×2 (00:02→07:32)
[2018-10-02] MEDS: NITROGLYCERIN 0.4 MG/HR PATCH TD SCH (05:51)
[2018-10-02] MEDS: PANTOprazole 40 MG TAB PO SCH (05:52)
[2018-10-02] MEDS: ACETAMINOPHEN 500 MG TAB PO SCH (05:52)
[2018-10-02] MEDS: SODIUM CHLORIDE 0.9% 1000ML 1,000 ML IV SCH (05:52)
[2018-10-02] MEDS: LEVOTHYROXINE SODIUM 75 MCG TABLET PO SCH (05:52)
[2018-10-02 06:10] LABS: Basophils # (auto) 0.01 K/uL (0-0.2); Basophils % (auto) 0.1 %; Eosinophils # (auto) 0.06 K/uL (0-0.5); Eosinophils % (auto) 0.6 %; Hematocrit (blood only) 28.3 % (37-47); Hemoglobin 9.5 g/dL (12.0-16.0); Immature Granulocytes # (auto) 0.26 K/uL (0.00-0.02); Immature Granulocytes % (auto) 2.5 %; Lymphocytes # (auto) 0.93 K/uL (1.2-3.4); Lymphocytes % (auto) 8.8 %; Mean Corpuscular Hgb Conc 33.6 g/dL (32-36); Mean Corpuscular Volume 87.6 fL (80-100); Mean Platelet Volume 8.9 fL (7.4-10.4); Monocytes # (auto) 0.59 K/uL (0.11-0.59); Monocytes % (auto) 5.6 %; Neutrophils # (auto) 8.71 K/uL (1.4-6.5); Neutrophils % (auto) 82.4 %; Platelet Count 492 K/uL (130-400); RDW Coefficient of Variation 16.9 % (11.5-14.5); RDW Standard Deviation 54.4 fL (36.4-46.3); Red Blood Count 3.23 M/uL (4.2-5.4); White Blood Count 10.56 K/uL (4.8-10.8)
[2018-10-02 06:47] LABS: BUN Creatinine Ratio 12.7 (10-20); Calcium 7.2 mg/dl (8.5-10.1); Creatinine Clr Calc Pharmacy 31.3 ml/min; Est GFR (African American) 27.2; Est GFR (Non-African American) 23.5
--- NOTE | 2018-10-02 07:39 | Orthopedic Progress Note ---
Date of Service October 02, 2018 Assessment & Plan (1) Status post total replacement of left shoulder: POD#2 Left TSA -Pain management -PT/OT -DVT prophylaxis-SCDs -D/C planning-home with home health PT today if okay with medicine. -AM labs- Hgb at 9.5. Creatinine beyter and at baseline at 2.06. Subjective Patient is POD#2 from her left TSA. She is having some pain, controlled with pain meds. No other complaints. Denies chest pain, sob, n/v/d. Physical Exam Physical Exam: Left shoulder dressings c/d/i, no drainage, fingers mobile, sling in tact, A&Ox3. Results & Data Vital Signs (Past 12 Hours) Vital Signs Temp Pulse Resp BP Pulse Ox 10/01/18 22:54 36.9 C 75 16 165/93 H 92
[2018-10-02] MEDS: MAGNESIUM OXIDE 400 MG TAB PO SCH (08:08)
[2018-10-02] MEDS: MULTIVITAMIN TAB PO SCH (08:09)
[2018-10-02] MEDS: DULOXETINE HCL 60 MG CAP PO SCH (08:09)
[2018-10-02] MEDS: CETIRIZINE HCL 10 MG TABLET PO SCH (08:09)
[2018-10-02] MEDS: DOCUSATE SODIUM 100 MG CAP PO SCH (08:09)
[2018-10-02] MEDS ORDERED: CALCIUM GLUCONATE 10% 1,000 MG in SODIUM CHLORIDE 0.9% 50 ML IV STA (08:48)
[2018-10-02] MEDS: INSULIN ASPART 100 UNITS/ML 3 ML PEN SC SCH (09:15)
[2018-10-02] MEDS: TRAMADOL HCL 50 MG TABLET PO PRN (09:20)
[2018-10-02] MEDS: POTASSIUM CHLORIDE 20 MEQ TABCR PO SCH (10:41)
[2018-10-02] MEDS: SPIRONOLACTONE 25 MG TAB PO SCH (10:41)
--- NOTE | 2018-10-02 11:45 | Hospitalist Progress Note ---
Date of Service October 02, 2018 Assessment & Plan (1) Status post total replacement of left shoulder: - Completed on 09/30/18, POD#2. - Pain control per primary team. - DVT ppx with SCDs. - PT/OT - discharge with home health. (2) Acute anemia: - Hemoglobin is below baseline, likely related to intra op blood loss and dilutional. - Monitor H/H daily - script provided for CBC in 3-4 days. (3) Essential hypertension: - Surgery was originally scheduled on 09/08, was delayed due to uncontrolled HTN. - Continue Nifedipine 90 mg qhs and Nitro patch as prescribed. - Will resume Spironolactone -- JULIO now resolved. - BP has been well controlled as inpatient. (4) GERD (gastroesophageal reflux disease): - Continue PPI daily. (5) Acute kidney injury: - Creatinine increased to 2.9 post op, baseline ~2.1; creatinine now improved following IV fluid hydration. - Likely prerenal related to dehydration vs. other. - Will resume Spironolactone as prescribed. - Script provided for lab work in 3-4 days to monitor renal function. (6) CKD (chronic kidney disease), stage IV: - Renally dose all meds. (7) Type II diabetes mellitus: - Most recent hemoglobin A1C was 7.2. - Is not currently on meds at home. - Gluc checks have been elevated, on steroids at home -- SSI while inpatient, will need to f/u with PCP to discuss. (8) Hypothyroidism: - Continue Levothyroxine 75 mcg daily - TSH was 2.3 in July 2018. (9) Schatzki's ring: - Monitored as outpatient. (10) Peptic ulcer disease: - Continue PPI daily. - Monitor CBC qAM. (11) Psoriasis: - Continue Prednisone 5 mg qhs (home dose). - No evidence of acute exacerbation -- also uses topical creams if needed. (12) Hyperkalemia: - K level now WNL -- resumed home KCl supplementation. (13) Depression: - Continue Cymbalta as prescribed. (14) Spinal meningioma: - Monitored as outpatient. (15) DVT prophylaxis: - SCDs; Pt. is not currently receiving pharmacologic ppx, has h/o PUD. Dispo: Medically stable for discharge, will sign off. Supervising Physician Co-Signing Physician Notes Attending Attestation - Chart reviewed in detail, care plan d/w SILVANA Whitehead. I agree w/ the ellis components of her documentation. 73yo female with steroid-dependent psoriatic arthritis. Now s/p left total shoulder replacement. CKD stage 4 at baseline with post-operative acute kidney injury - latter now resolved and Cr back to baseline. Vitals remain stable. Mild acute blood loss anemia present - consider ferrous sulfate supplementation. Cont prednisone for psoriatic arthritis. Hunter Blair MD Subjective Pt. is doing well. Shoulder pain improved. Has not had a BM yet but is passing gas. Is urinating without difficulty. Plan for discharge to home today. Review of Systems Review of Systems: All systems reviewed & are unremarkable except as noted in HPI & below Constitutional: no fever, no chills, no fatigue and no weakness Respiratory: no cough, no dyspnea, no dyspnea on exertion and no wheezing Cardiovascular: no chest pain, no palpitations, no lightheadedness, no syncope and no edema Gastrointestinal: + constipation; no abdominal pain, no nausea and no vomiting Genitourinary: no difficulty urinating Musculoskeletal: + joint pain; no back pain Integumentary: no non-healing lesions Allergy / Immunological: no rash Physical Exam Physical Exam: General: Resting comfortably in no apparent distress HEENT: NC/AT; PERRLA with EOMI; [place] conjunctiva, MMM. No erythema of posterior pharynx Neck: Supple and nontender Cardiac: RRR Lungs: CTA bilaterally; No rhonchi, wheezing, or rales Abdomen: Bowel normoactive X 4; Nontender to palpation Extremities: Warm. No edema present. Dressing in place over left shoulder. Neuro: No focal weakness Skin: No rash Results & Data Vital Signs (Past 12 Hours) Vital Signs Temp Pulse Pulse Resp BP Pulse Ox 10/02/18 11:02 36.7 C 62 56 L 18 138/75 95 10/02/18 07:49 36.7 C 56 L 18 138/75 95 Laboratory Results 10/02/18 10/02/18 10/02/18 Range/Units 07:57 05:24 05:24 WBC 10.56 (4.8-10.8) K/uL RBC 3.23 L (4.2-5.4) M/uL Hgb 9.5 L (12.0-16.0) g/dL Hct 28.3 L (37-47) % MCV 87.6 (80-100) fL MCH 29.4 (25-34) pg MCHC 33.6 (32-36) g/dL RDW Std Deviation 54.4 H (36.4-46.3) fL RDW Coeff of Amrita 16.9 H (11.5-14.5) % Plt Count 492 H (130-400) K/uL MPV 8.9 (7.4-10.4) fL Immature Gran % (Auto) 2.5 % Neut % (Auto) 82.4 % Lymph % (Auto) 8.8 % [place] % (Auto) 5.6 % Eos % (Auto) 0.6 % Baso % (Auto) 0.1 % Immature Gran # (Auto) 0.26 H (0.00-0.02) K/uL Neut # (Auto) 8.71 H (1.4-6.5) K/uL Lymph # (Auto) 0.93 L (1.2-3.4) K/uL [place] # (Auto) 0.59 (0.11-0.59) K/uL Eos # (Auto) 0.06 (0-0.5) K/uL Baso # (Auto) 0.01 (0-0.2) K/uL Sodium 138 (136-145) mmol/L Potassium 4.0 (3.5-5.1) mmol/L Chloride 110 H (98-107) mmol/L Carbon Dioxide 22 (21-32) mmol/L Anion Gap 6.0 (3-11) BUN 26 H (7-18) mg/dl Creatinine 2.06 H D (0.6-1.2) mg/dl Est Cr Clr Drug Dosing 31.3 ml/min Est GFR ( Amer) 27.2 Est GFR (Non-Af Amer) 23.5 BUN/Creatinine Ratio 12.7 (10-20) Glucose 121 H (70-99) mg/dl POC Glucose 138 H (70-99) Calcium 7.2 L D (8.5-10.1) mg/dl Magnesium (1.8-2.4) mg/dl 10/01/18 10/01/18 10/01/18 Range/Units 21:02 17:54 14:09 WBC (4.8-10.8) K/uL RBC (4.2-5.4) M/uL Hgb (12.0-16.0) g/dL Hct (37-47) % MCV (80-100) fL MCH (25-34) pg MCHC (32-36) g/dL RDW Std Deviation (36.4-46.3) fL RDW Coeff of Amrita (11.5-14.5) % Plt Count (130-400) K/uL MPV (7.4-10.4) fL Immature Gran % (Auto) % Neut % (Auto) % Lymph % (Auto) % [place] % (Auto) % Eos % (Auto) % Baso % (Auto) % Immature Gran # (Auto) (0.00-0.02) K/uL Neut # (Auto) (1.4-6.5) K/uL Lymph # (Auto) (1.2-3.4) K/uL [place] # (Auto) (0.11-0.59) K/uL Eos # (Auto) (0-0.5) K/uL Baso # (Auto) (0-0.2) K/uL Sodium 137 (136-145) mmol/L Potassium 4.7 (3.5-5.1) mmol/L Chloride 107 (98-107) mmol/L Carbon Dioxide 20 L (21-32) mmol/L Anion Gap 10.0 (3-11) BUN 34 H (7-18) mg/dl Creatinine 2.99 H (0.6-1.2) mg/dl Est Cr Clr Drug Dosing 21.5 ml/min Est GFR ( Amer) 17.3 Est GFR (Non-Af Amer) 15.0 BUN/Creatinine Ratio 11.4 (10-20) Glucose 103 H (70-99) mg/dl POC Glucose 143 H 123 H (70-99) Calcium 8.8 (8.5-10.1) mg/dl Magnesium 2.6 H (1.8-2.4) mg/dl
--- NOTE | 2018-10-13 00:43 | Discharge Summary ---
This is a 73-year-old female patient of Dr. Mas's complaining of chronic left shoulder pain, longstanding, progressively getting worse. She failed conservative treatment and was diagnosed with end-stage osteoarthritis in her left shoulder and wished to proceed with a total shoulder arthroplasty, distal clavicle excision, rotator cuff repair. PAST MEDICAL HISTORY: Heart murmur, hypertension, left-sided neuropathy, hypothyroidism, rheumatoid arthritis, osteoarthritis, spine problems, neck problems, upper back problems, acid reflux and hiatal hernia. POSTOPERATIVE COURSE: The patient underwent a left total shoulder arthroplasty, distal clavicle excision, subacromial decompression, rotator cuff repair and biceps tenodesis on 09/30/2018. The patient was followed closely with medical consultation, DVT prophylaxis in the form of SCDs. Physical therapy and pain control. The patient has had a history of uncontrollable hypertension; however, during this hospital course the patient did well and her blood pressure remained controlled. Otherwise, no postoperative complications. PHYSICAL EXAMINATION: On discharge, the patient's left shoulder incision was clean, dry and intact. There was no redness or drainage. Skin edges approximated well. [place] are intact. Fingers and elbow were mobile. Sling was intact. Neurologically and neurovascularly she is intact in her left upper extremity. DIAGNOSES: Status post left total shoulder arthroplasty, distal clavicle excision, subacromial decompression, rotator cuff repair and biceps tenodesis. The patient also has a history of heart murmur, hypertension, left-sided neuropathy, hypothyroidism, rheumatoid arthritis, osteoarthritis, spine problems, neck problems, upper back problems, acid reflux and hiatal hernia. PLAN: The patient was discharged home on postoperative day #2. She will attend outpatient physical therapy. She will continue her preadmission medications with the addition of pain medications. Her DVT prophylaxis is in the form of aspirin. The patient will follow up with Dr. Mas's office as scheduled as an outpatient.
== END 2018-10-02 11:32 | disposition home or self-care (01) | DRG 483 ==
LOC: ASU 12:12 → 3E 20:03
DX: E11.22 Type 2 diabetes mellitus with diabetic chronic kidney disease; M19.012 Primary osteoarthritis, left shoulder; D62 Acute posthemorrhagic anemia; N17.9 Acute kidney failure, unspecified; Z88.8 Allergy status to other drugs, medicaments and biological substances; D32.1 Benign neoplasm of spinal meninges; F32.9 Major depressive disorder, single episode, unspecified; Z79.52 Long term (current) use of systemic steroids; M25.811 Other specified joint disorders, right shoulder; Z88.1 Allergy status to other antibiotic agents; I12.9 Hypertensive chronic kidney disease with stage 1 through stage 4 chronic kidney disease, or unspecified chronic kidney disease; Z88.6 Allergy status to analgesic agent; Z79.82 Long term (current) use of aspirin; K21.9 Gastro-esophageal reflux disease without esophagitis; Z91.041 Radiographic dye allergy status; Z87.11 Personal history of peptic ulcer disease; Z79.899 Other long term (current) drug therapy; Z88.5 Allergy status to narcotic agent; E03.9 Hypothyroidism, unspecified; Z88.2 Allergy status to sulfonamides; N18.4 Chronic kidney disease, stage 4 (severe); M06.9 Rheumatoid arthritis, unspecified; L40.50 Arthropathic psoriasis, unspecified; M75.112 Incomplete rotator cuff tear or rupture of left shoulder, not specified as traumatic

== ENCOUNTER 2019-05-27 05:30 | Inpatient (IN) ==
[2019-04-08 16:39] LABS: Eosinophils # (auto) 0.01 K/uL (0-0.5); Eosinophils % (auto) 0.1 %; Hematocrit (blood only) 33.6 % (37-47); Hemoglobin 10.7 g/dL (12.0-16.0); Immature Granulocytes # (auto) 0.06 K/uL (0.00-0.02); Immature Granulocytes % (auto) 0.7 %; Lymphocytes % (auto) 8.9 %; Mean Corpuscular Hemoglobin 28.4 pg (25-34); Mean Corpuscular Hgb Conc 31.8 g/dL (32-36); Mean Corpuscular Volume 89.1 fL (80-100); Mean Platelet Volume 10.4 fL (7.4-10.4); Monocytes # (auto) 0.39 K/uL (0.11-0.59); Monocytes % (auto) 4.3 %; Neutrophils # (auto) 7.71 K/uL (1.4-6.5); Platelet Count 363 K/uL (130-400); RDW Coefficient of Variation 17.7 % (11.5-14.5); RDW Standard Deviation 57.6 fL (36.4-46.3); Red Blood Count 3.77 M/uL (4.2-5.4); White Blood Count 8.97 K/uL (4.8-10.8)
[2019-04-08 16:44] LABS: Appearance Urine Clear (Clear); Bacteria Urine Automated Negative (Negative); Bilirubin Urine Negative (Negative); Blood Urine Negative (Negative); Color Urine Yellow; Glucose Urine UA Negative (Negative); Ketones Urine Negative (Negative); Leukocyte Esterase Urine Negative (Negative); Nitrite Urine Negative (Negative); Protein Urine Trace (Negative); RBC Urine Automated 0-4 /hpf (0-4); Specific Gravity Urine 1.017 (1.000-1.030); Urobilinogen Urine Negative (Negative); pH Urine 6.5 (4.5-7.5)
[2019-04-08 16:52] LABS: Partial Thromboplastin Ratio 0.8; Partial Thromboplastin Time 22.6 Seconds (21.0-31.0); Prothrombin Time 10.1 Seconds (9.0-12.0)
[2019-04-08 17:09] LABS: Albumin Level 3.4 gm/dl (3.4-5.0); BUN Creatinine Ratio 14.8 (10-20); Blood Urea Nitrogen 30 mg/dl (7-18); Calcium 8.9 mg/dl (8.5-10.1); Carbon Dioxide 26 mmol/L (21-32); Chloride 104 mmol/L (98-107); Est GFR (African American) 27.2; Est GFR (Non-African American) 23.5; Glucose 133 mg/dl (70-99); Potassium 4.3 mmol/L (3.5-5.1); Sodium 136 mmol/L (136-145)
[2019-04-09 07:34] LABS: Estimated Average Glucose 151 mg/dl; Hemoglobin A1C 6.9 % (4.5-5.6)
--- NOTE | 2019-05-02 14:01 | Anesthesiology Consultation ---
Date of Service May 02, 2019 Assessment & Plan (1) Encounter for pre-operative examination: Chart Review Chart Review: Acceptable Risk for Surgery and Patient NOT seen in Pre Admission Testing - S/P Left TSA, distal clavicle excision, spur excision, RCR: 09/30/17: Grade view 2 with anterior pressure, MAC#3, ETT 7.0 at [facility] ANNOTATION FROM PATIENT'S INITIAL PAT VISIT IN FEBRUARY 2019 PRIOR TO HER SURGERY BEING DELAYED 2/2 COPD EXACERBATION/BRONCHITIS. - Hx Spinal meningioma at L3- follows with [facility] neurosurgery specialist (Dr. Ken)- under surveillance/stable/no indication for surgical intervention. Discussed SAB vs. GA with patient. Will leave at anesthesiologist discretion if anything further needed prior to surgery. Consults Requested none Patient originally scheduled for this procedure on Mar 25, 2019. Patient had COPD exacerbation and treated with steroid taper. Follow up PCP visit 04/26/2019: "Preoperative exam performed agree with moving forward with surgery. Patient is an intermediate risk secondary to hip arthroplasty in intermediate risk secondary to revised cardiac risk index score due to her preoperative serum creatinine is elevated above 2. Discussed the risks from above information patient is aware at this time. No further interventions are needed beyond the ordered chest x-ray and labs. On completion of chest x-ray and lab review will forward information to Dr. Gonzales. Recommend consultation to Medical Service while the patient is inpatient due to the complexities of her medical history." History Surgery Operation Date: 05/27/19 09:55 Proposed Procedures p Right Total Hip Arthroplasty - Kimani Gonzales, Height/Weight Height: 5 ft 11 in Weight: 92.533 kg Allergies Allergy/AdvReac Type Severity Reaction Status Date / Time codeine Allergy Severe Anaphylaxis Verified 05/02/19 09:16 Diclopak Allergy Intermediate CREATINE Verified 04/06/17 09:34 ELEVATION nickel Allergy Intermediate SKIN Verified 05/02/19 09:16 IRRITATION Iodinated Contrast Media Allergy Mild RASH Verified 05/02/19 09:16 Sulfa (Sulfonamide Allergy Mild RASH TO Verified 05/02/19 09:16 Antibiotics) SULFA DRUGS tetracycline Allergy Mild RASH Verified 05/02/19 09:16 diclofenac AdvReac Severe CREATINE Verified 05/02/19 09:16 ELEVATION capsaicin AdvReac Intermediate CREATINE Verified 05/02/19 09:16 ELEVATION celecoxib [From Celebrex] AdvReac Intermediate CREATINE Verified 05/02/19 09:16 ELEVATION isopropyl alcohol AdvReac Intermediate CREATINE Verified 05/02/19 09:16 ELEVATION propylene glycol AdvReac Intermediate CREATINE Verified 05/02/19 09:16 ELEVATION Medications Home Medications Medication Instructions Recorded Confirmed Last Taken cholecalciferol (vitamin D3) 1,000 unit PO QAM 07/26/18 05/02/19 10/10/18 [Vitamin D3] magnesium oxide 400 mg PO BID 07/26/18 05/02/19 10/11/18 omega 1-grz-abl-fish oil [Fish Oil] 1,000 mg PO BID 07/26/18 05/02/19 10/11/18 aspirin 81 mg chewable tablet 81 mg PO QPM tab 11/23/18 05/02/19 Unknown azelastine 137 mcg (0.1 %) nasal 2 spray INTRANASAL DAILY PRN ml 11/23/18 05/02/19 Unknown spray aerosol dicyclomine 20 mg tablet 20 mg PO TID PRN 11/23/18 05/02/19 Unknown nitroglycerin 0.4 mg/hr 1 patch TRANSDERMAL DAILY 12/02/18 05/02/19 Unknown transdermal 24 hour patch levalbuterol HCl 0.63 mg/3 mL 0.63 mg INHALATION Q4H PRN #90 ml 12/10/18 05/02/19 Unknown solution for nebulization pantoprazole 40 mg tablet,delayed 40 mg PO QAM #90 tab 12/27/18 05/02/19 Unknown release potassium chloride 20 mEq 20 meq PO BID #180 tab 12/27/18 05/02/19 Unknown tablet,extended release prednisone 5 mg tablet 5 mg PO HS #90 tab 12/27/18 05/02/19 Unknown spironolactone 25 mg tablet 25 mg PO BID #180 tab 12/27/18 05/02/19 Unknown duloxetine 60 mg PO QAM 02/21/19 05/02/19 Unknown blood sugar diagnostic #50 ea 02/22/19 04/26/19 Unknown blood-glucose meter #1 ea 02/22/19 04/26/19 Unknown lancets #50 ea 02/22/19 04/26/19 Unknown cetirizine 10 mg tablet 5 mg PO BID 03/05/19 05/02/19 Unknown clobetasol 0.05 % topical cream 1 appln TOP DAILY PRN 03/26/19 05/02/19 Unknown tacrolimus 0.03 % topical ointment 1 appln TOP BID PRN 03/26/19 05/02/19 Unknown triamcinolone acetonide 0.025 % 1 appln TOP BID PRN 03/26/19 05/02/19 Unknown topical cream nebulizers #1 ea 03/31/19 04/26/19 Unknown levothyroxine 100 mcg PO QAM 05/02/19 05/02/19 Unknown nifedipine 90 mg PO HS 05/02/19 05/02/19 Unknown Past Medical History Medical History Anemia, unspecified Cardiomegaly Chronic steroid use FOR PSORITRIC ARTHRITIS CKD (chronic kidney disease) stage 4, GFR 15-29 ml/min baseline creatinine 2.0-2.2 range; nephrology (Dr. Stevenson) monitoring Esophageal dysmotility Esophageal spasm Frequent UTI hx GERD (gastroesophageal reflux disease) CONTROLLED WITH MEDS Hearing loss, right Hiatal hernia HTN (hypertension) Hyperlipidemia Hypothyroidism Irritable bowel syndrome Lumbar radiculopathy Obesity Peptic ulcer disease Polyneuropathy Psoriatic arthropathy chronic prednisone 5mg HS Restless leg syndrome Schatzki's ring (Inactive) Spinal meningioma at L3- follows with [facility] neurosurgery specialist (Dr. Ken)- under surveillance/stable/no indication for surgical intervention Spinal meningioma (Inactive) Tinnitus of right ear Type II diabetes mellitus (Chronic) diet controlled Past Family History Family History Mother Hypertension Arthritis Father Hypertension Family/Other Colon cancer Unknown FHx: allergies Hypertension Brother Cancer Other Family history non-contributory Past Surgical History Surgical History H/O thyroidectomy History of arthroscopy RT/LEFT KNEE History of arthroscopy of right shoulder History of cardiac cath X2; 10+ YEARS AGO (NO STENTS) History of cataract extraction RT/LEFT History of cholecystectomy History of colonoscopy History of dilatation and curettage History of esophagogastroduodenoscopy (EGD) History of foot surgery RT FOOT FUSION History of lumbar fusion History of tonsillectomy and adenoidectomy History of tooth extraction History of total abdominal hysterectomy and bilateral salpingo-oophorectomy History of total knee arthroplasty RIGHT Schatzki's ring HX S/P EGD WITH DILATION (2017) Status post total replacement of left shoulder Social History Smoking Status: Former smoker tobacco type: cigarettes Smoking cigarettes per day: QUIT AGE 26 Do You Dip or Chew Tobacco: No Hx Alcohol Use: Yes Alcohol type: other alcohol intake frequency: holidays/special occasions only Alcohol Intake Frequency Comment: ON OCC-1-2 X A YR Hx Substance Use: No substance use type: does not use Physical Exam Vital Signs exam from previous PAT visit Feb 2019: PHYSICAL Full neck and c-spine range of motion. Full TMJ range of motion. TMD 4 finger breaths Mallampati Score 1 Dentition: upper/lower partials Lungs: clear throughout to auscultation Cardiac: regular rate and rhythm, no murmurs noted Spine: normal Carotid arteries: negative bruit Extremities: no edema Large tongue Testing Laboratory Results 04/08/19 15:07 04/08/19 15:07 PT 10.1 Seconds (9.0-12.0) 04/08/19 15:07 INR 1.0 (0.9-1.1) 04/08/19 15:07 APTT 22.6 Seconds (21.0-31.0) 04/08/19 15:07 Hemoglobin A1c 6.9 % (4.5-5.6) H 04/08/19 15:07 Urine Color Yellow 04/08/19 15:07 Urine Appearance Clear (Clear) 04/08/19 15:07 Urine pH 6.5 (4.5-7.5) 04/08/19 15:07 Ur Specific [place] 1.017 (1.000-1.030) 04/08/19 15:07 Urine Protein Trace (Negative) H 04/08/19 15:07 Urine Glucose (UA) Negative (Negative) 04/08/19 15:07 Urine Ketones Negative (Negative) 04/08/19 15:07 Urine Nitrite Negative (Negative) 04/08/19 15:07 Ur Leukocyte Esterase Negative (Negative) 04/08/19 15:07 Urine WBC (Auto) 1-5 /hpf (0-5) 04/08/19 15:07 Urine RBC (Auto) 0-4 /hpf (0-4) 04/08/19 15:07 U Hyaline Cast (Auto) 1-5 /lpf (0-5) 04/08/19 15:07 U Epithel Cells (Auto) 10-20 /lpf (0-5) H 04/08/19 15:07 Urine Bacteria (Auto) Negative (Negative) 04/08/19 15:07 Blood Type O Negative 04/08/19 15:07 Antibody Screen NEGATIVE 04/08/19 15:07 Laboratory Tests 04/26/19 04/26/19 04/26/19 14:32 14:32 14:32 WBC 8.70 Hgb 12.5 Hct 39.3 Plt Count 397 Sodium 137 Potassium 4.3 Chloride 104 Carbon Dioxide 26 BUN 27 H Creatinine 2.52 H Glucose 96 Hemoglobin A1c 6.8 H Electrocardiogram Date: 03/23/19 Findings: + NSR @ (83) Normal ECG. Other Testing Testing Electrocardiogram Date: 09/09/18 + NSR @ (78 bpm) NSR at 78bpm. Moderate voltage criteria for LVH, may be normal variant. NS TWA. Chest X-Ray Date: 08/06/18 Cardiac silhouette mildly enlarged. Heterogeneity of lung parenchyma. No focal opacity. No pleural effusion or pneumothorax. Degenerative changes of the thoracic spine. Degenerative changes of the glenohumeral joints. Chronic right AC joint widening. Upper abdomen normal. Mild cardiomegaly. No other evidence of acute cardiopulmonary disease. Echocardiogram Date: 07/27/18 EF 60-65%. No RWMA. Grade I DD. Mild cLVH. Mild LAD. Stress Test Date: 06/03/17 Type: DSE Negative DSE/stress EKG for ischemia at 89% MPHR. No chest pain. No arrhythmia. Technically difficult study. EF 65-70%. Mild cLVH. Type 1 DD. AV sclerosis.
--- NOTE | 2019-05-26 17:14 | History & Physical Report ---
Date of Service May 26, 2019 Assessment & Plan (1) Osteoarthritis of right hip: Schedule a right ZACK for 05.27.2019. All potential risks, benefits, complications, alternatives, and rehab have been discussed with the patient and she wishes to proceed. Plan for d/c home with home health vs. rehab stay upon discharge. ASA 81 mg BID x 4 wks post op for DVT prophylaxis. History of Present Illness Chief Complaint: right hip pain Primary Care Provider: Shelton Melendez MD This is a patient with a long hx of right hip and groin pain that was treated conservatively for right hip DJD. She has failed all conservative management and is now being set up for surgical tx. Allergies Allergy/AdvReac Type Severity Reaction Status Date / Time codeine Allergy Severe Anaphylaxis Verified 05/02/19 09:16 Diclopak Allergy Intermediate CREATINE Verified 04/06/17 09:34 ELEVATION nickel Allergy Intermediate SKIN Verified 05/02/19 09:16 IRRITATION Iodinated Contrast Media Allergy Mild RASH Verified 05/02/19 09:16 Sulfa (Sulfonamide Allergy Mild RASH TO Verified 05/02/19 09:16 Antibiotics) SULFA DRUGS tetracycline Allergy Mild RASH Verified 05/02/19 09:16 diclofenac AdvReac Severe CREATINE Verified 05/02/19 09:16 ELEVATION capsaicin AdvReac Intermediate CREATINE Verified 05/02/19 09:16 ELEVATION celecoxib [From Celebrex] AdvReac Intermediate CREATINE Verified 05/02/19 09:16 ELEVATION isopropyl alcohol AdvReac Intermediate CREATINE Verified 05/02/19 09:16 ELEVATION propylene glycol AdvReac Intermediate CREATINE Verified 05/02/19 09:16 ELEVATION Home Medications Home Medications Medication Instructions Recorded Confirmed Type cholecalciferol (vitamin D3) 1,000 unit PO QAM 07/26/18 05/02/19 History [Vitamin D3] magnesium oxide 400 mg PO BID 07/26/18 05/02/19 History omega 2-ali-taa-fish oil [Fish Oil] 1,000 mg PO BID 07/26/18 05/02/19 History aspirin 81 mg chewable tablet 81 mg PO QPM tab 11/23/18 05/02/19 History azelastine 137 mcg (0.1 %) nasal 2 spray INTRANASAL DAILY PRN ml 11/23/18 05/02/19 History spray aerosol dicyclomine 20 mg tablet 20 mg PO TID PRN 11/23/18 05/02/19 History levalbuterol HCl 0.63 mg/3 mL 0.63 mg INHALATION Q4H PRN #90 ml 12/10/18 05/02/19 Rx solution for nebulization pantoprazole 40 mg tablet,delayed 40 mg PO QAM #90 tab 12/27/18 05/02/19 Rx release potassium chloride 20 mEq 20 meq PO BID #180 tab 12/27/18 05/02/19 Rx tablet,extended release prednisone 5 mg tablet 5 mg PO HS #90 tab 12/27/18 05/02/19 Rx spironolactone 25 mg tablet 25 mg PO BID #180 tab 12/27/18 05/02/19 Rx duloxetine 60 mg PO QAM 02/21/19 05/02/19 History blood sugar diagnostic #50 ea 02/22/19 04/26/19 Rx blood-glucose meter #1 ea 02/22/19 04/26/19 Rx lancets #50 ea 02/22/19 04/26/19 Rx cetirizine 10 mg tablet 5 mg PO BID 03/05/19 05/02/19 History clobetasol 0.05 % topical cream 1 appln TOP DAILY PRN 03/26/19 05/02/19 History tacrolimus 0.03 % topical ointment 1 appln TOP BID PRN 03/26/19 05/02/19 History triamcinolone acetonide 0.025 % 1 appln TOP BID PRN 03/26/19 05/02/19 History topical cream nebulizers #1 ea 03/31/19 04/26/19 Rx levothyroxine 100 mcg PO QAM 05/02/19 05/02/19 History nifedipine 90 mg PO HS 05/02/19 05/02/19 History nitroglycerin 0.4 mg/hr 1 patch TRANSDERMAL DAILY #30 ea 05/12/19 Rx transdermal 24 hour patch Past Med/Surg History Medical History Anemia, unspecified Cardiomegaly Chronic steroid use FOR PSORITRIC ARTHRITIS CKD (chronic kidney disease) stage 4, GFR 15-29 ml/min baseline creatinine 2.0-2.2 range; nephrology (Dr. Stevenson) monitoring Esophageal dysmotility Esophageal spasm Frequent UTI hx GERD (gastroesophageal reflux disease) CONTROLLED WITH MEDS Hearing loss, right Hiatal hernia HTN (hypertension) Hyperlipidemia Hypothyroidism Irritable bowel syndrome Lumbar radiculopathy Obesity Peptic ulcer disease Polyneuropathy Psoriatic arthropathy chronic prednisone 5mg HS Restless leg syndrome Schatzki's ring (Inactive) Spinal meningioma at L3- follows with [facility] [place] (Dr. Ken)- under surveillance/stable/no indication for surgical intervention Spinal meningioma (Inactive) Tinnitus of right ear Type II diabetes mellitus (Chronic) diet controlled Surgical History H/O thyroidectomy History of arthroscopy RT/LEFT KNEE History of arthroscopy of right shoulder History of cardiac cath X2; 10+ YEARS AGO (NO STENTS) History of cataract extraction RT/LEFT History of cholecystectomy History of colonoscopy History of dilatation and curettage History of esophagogastroduodenoscopy (EGD) History of foot surgery RT FOOT FUSION History of lumbar fusion History of tonsillectomy and adenoidectomy History of tooth extraction History of total abdominal hysterectomy and bilateral salpingo-oophorectomy History of total knee arthroplasty RIGHT Schatzki's ring HX S/P EGD WITH DILATION (2017) Status post total replacement of left shoulder Family History Mother Hypertension Arthritis Father Hypertension Family/Other Colon cancer Unknown FHx: allergies Hypertension Brother Cancer Other Family history non-contributory Social History Preferred Language: Bulgarian Communication Ability: Effective Communication Ability Comment: DEAF RIGHT EAR Visual Impairment: No Limitations Hearing Ability: Hard of Hearing Plasma Processing Technician Required: No Beliefs That Will Affect Care: None marital status: Current Living Situation: Alone Current Living Situation Comment: is in correction. 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 Other Information That Helps Us Care for You: No Feels Safe at Home: Yes Safety Concerns: Feels Safe At This Time Smoking Status: Former smoker Tobacco Type: cigarettes ; Cigarettes Per Day: QUIT AGE 26 ; Do You Dip or Chew Tobacco: No ; Second Hand Exposure: No ; Hx Alcohol Use: Yes Alcohol type: other Hx Substance Use: No Dental Care, Regularly: Yes Physical Activity Frequency: Does not Exercise Physical Activity Frequency Comment: Hip problems Seatbelt Use: always Sunscreen Use: No Physical Exam Constitutional: well developed and well nourished; no acute distress ENMT: external ear and nose normal, oropharynx normal Neck: trachea midline, no thyromegaly Respiratory: normal respiratory effort, lungs clear to auscultation Cardiovascular: Rate/Rhythm: regular rate and regular rhythm Gastrointestinal (Abdomen): normal bowel sounds, soft, nontender, no hepatosplenomegaly Musculoskeletal: Gait: + antalgic gait (right) Hip: + limited ROM of hip (right hip with internal/external rotation), + joint line tenderness (right groin) and + JAYLA test positive (right); no deformity, no skin erythema and no ecchymosis Skin: no rashes, warm and dry Neurologic: normal touch/pain/proprioception Psychiatric: A+Ox3, euthymic affect Lymphatic: no cervical or axillary lymphadenopathy
[2019-05-27] MEDS ORDERED: GABAPENTIN 300 MG CAP PO SCH (06:00)
[2019-05-27] MEDS ORDERED: CEFAZOLIN 2000MG 2,000 MG/15 ML SYR IV SCH ×2 (06:00)
[2019-05-27] MEDS ORDERED: SODIUM CHLORIDE 0.9% 1000ML IV SCH (06:00)
[2019-05-27] MEDS ORDERED: LR 500ML BOLUS, THEN 15ML/HR IV SCH (06:00)
[2019-05-27] MEDS ORDERED: METOCLOPRAMIDE HCL 10 MG TABLET PO SCH (06:00)
[2019-05-27] MEDS ORDERED: dexAMETHasone 4 MG TAB PO SCH (06:00)
[2019-05-27] MEDS ORDERED: ACETAMINOPHEN 500 MG TAB PO SCH (06:00)
[2019-05-27] MEDS ORDERED: BUPIVACAINE 0.5 % 5 MG/1 ML PF 10ML VIAL ONE (06:14)
[2019-05-27] MEDS: FAMOTIDINE 20 MG TAB PO SCH ×2 (06:38→06:39)
[2019-05-27] MEDS ORDERED: ONDANSETRON INJ 2 MG/ML 2 ML VIAL ONE (06:59)
[2019-05-27] MEDS ORDERED: fentaNYL citrate 100 MCG/2 ML VIAL ONE ×2 (06:59)
[2019-05-27] MEDS ORDERED: PROPOFOL IV EMULSION 10 MG/ML 20 ML VIAL IV ONE ×5 (06:59→11:57)
[2019-05-27] MEDS ORDERED: DEXAMETHASONE SOD INJ 4 MG/ML VIAL ONE (06:59)
[2019-05-27] MEDS ORDERED: LIDOCAINE HCL 2% 2 ML VIAL/AMP(20MG/ML) INFIL ONE (06:59)
[2019-05-27] MEDS ORDERED: MIDAZOLAM HCL 1 MG/ML 2ML VIAL ONE ×2 (07:00)
[2019-05-27] MEDS ORDERED: ORTHO JOINT ANESTHETIC ONE (07:01)
[2019-05-27] MEDS ORDERED: BACITRACIN INJ 50,000 UNIT VIAL ONE (07:02)
--- NOTE | 2019-05-27 07:31 | History & Physical Bridge Note ---
Date of Service May 27, 2019 History & Physical Bridge Note I have examined the patient, reviewed the History & Physical and in the interval since the performance of the History & Physical I have noted the following changes of clinical significance: no changes noted
[2019-05-27] MEDS ORDERED: ROPIVACAINE 0.5% HCL/PF 150 MG, BUPIVACAINE 0.5% MPF 30 ML, EPINEPHrine 30MG/30ML (OR U... INSTIL SCH (07:45)
[2019-05-27] MEDS ORDERED: ePHEDrine sulfate 50 MG/ML AMP IV PRN (08:52)
[2019-05-27] MEDS ORDERED: ATROPINE SULFATE 0.1 MG/ML 10ML SYR IV PRN (08:52)
[2019-05-27] MEDS ORDERED: ONDANSETRON INJ 2 MG/ML 2 ML VIAL IV PRN ×2 (08:52→13:22)
[2019-05-27] MEDS ORDERED: fentaNYL citrate 100 MCG/2 ML VIAL IV PRN (08:52)
--- NOTE | 2019-05-27 11:16 | Post Operative Brief Note ---
Immediate Post Op Note v1 Date of Surgery May 27, 2019 Pre & Post Diagnosis Operation Date: 05/27/19 07:15 Pre-Op Diagnosis: Right hip degenerative joint disease, right hip Osteoarthritis Post-Op Diagnosis: Right hip degenerative joint disease, right hip Osteoarthritis I identified the patient and participated in the time-out.: Yes Procedure Operation Date: 05/27/19 07:15 Actual Procedures p Right Total Hip Arthroplasty with Jaycob press-fit Accolade 2 size 6 stem, Biolox 36 mm ceramic head -2.5 mm neck length, 6.5 mm x 30 mm Torx screws x2, 36 mm 10 degree elevated X3 poly liner and PSL 54 mm shell uncemented components- Kimani Gonzales DO Surgeon Kimani Gonzales DO Medical Physicist Shravan Maguire PA-C Estimated Blood Loss 150 Findings Consistent with Post-Op Diagnosis Specimens Bone and tissue right hip Drains Hemovac Drain Anesthesia Type Spinal MAC Complications none Disposition Accompanied Patient To Recovery: No Disposition: Recovery Room Overlapping Procedure I was present for: the critical portions of procedure. I was immediately available: during the entire case.
--- NOTE | 2019-05-27 11:45 | Operative Report ---
DATE OF OPERATION: 05/27/2019 PREOPERATIVE DIAGNOSES: 1. Right hip degenerative joint disease. 2. Right hip osteoarthritis. POSTOPERATIVE DIAGNOSES: 1. Right hip degenerative joint disease. 2. Right hip osteoarthritis. PROCEDURE: Right total hip arthroplasty using a Jaycob Press-Fit Accolade II size 6 femoral stem with a Biolox ceramic 36 mm x -2.5 mm head with a PSL 54 mm acetabular shell, 36 mm 10-degree elevated X3 polyethylene liner and two 6.5 mm x 30 mm Torx screws. SURGEON: Dr. Kimani Gonzales DO CONSTRUCTION PROJECT ADMINISTRATOR: Shravan Maguire PA-C who was present for patient positioning, sterile prep and drape, management of retractors and instruments. He was present through the critical portions of the case including wound closure, application of sterile dressing and transport of the patient to recovery. ANESTHESIA: Spinal, MAC with local. SPECIMENS: Bone and tissue, right hip. DRAINS: Hemovac x2. COMPLICATIONS: None. BLOOD LOSS: 150 mL. PERTINENT HISTORY: This is a 74-year-old woman who has had chronic progressive and worsening right hip pain and degenerative arthritis over the last 2-3 years. She attempted conservative management including oral anti-inflammatories, physician directed home exercises, physical therapy, use of an assistive device and steroid injections. Radiographs demonstrate severe degenerative joint disease of the right hip with complete loss of joint space, marginal osteophytes, subchondral sclerosis and subchondral cysts. The patient was scheduled for surgery as indicated. PROCEDURE: The patient was taken to the Operating Suite and placed supine on the Operating Room table after identification of the consent and identification of the proper operative site the patient was sedated. The patient had previously received a spinal epidural anesthetic. The patient was then placed in the left lateral decubitus position with the affected side up and Stulberg positioning device then used to maintain lateral position of the patient. All bony prominences were properly padded and protected. Axillary roll was placed as standard and the leg lengths were determined to be essentially equal and then the right hip was then sterilely prepped and draped in the usual fashion. A 10-blade scalpel incision was made laterally over the greater trochanter. The incision was deepened through the subcutaneous tissue and meticulous hemostasis with electrocautery. Further deepening of the wound through the layer of the fascia was performed with electrocautery and iliotibial band was then incised with electrocautery. Next, Charnley retractor was placed bother anteriorly and posteriorly at the level of the gluteus tendon. Next, electrocautery was used to make an incision in the vastus lateralis and then sweep was made toward the anterior aspect of the patient along the course of the femoral neck and head. Abductor split was then completed. The gluteus minimus and capsule were then incised and then soft tissue was dissected anteriorly. Next as the soft tissue was dissected anteriorly the lesser trochanter was clearly identified and hip was dislocated with relative ease. Hypertrophic osteophytes were noted circumferentially. The hip joint was noted to be noticeably tight. Next the sagittal saw was used to resect the proximal portion of the femoral neck and head approximately one fingerbreadth proximal to the lesser trochanter. Head was then removed and next the labrum was excised from the acetabulum with a 20 blade scalpel and long forceps. Next the wound was irrigated with pulsatile lavage and the pulvinar was then excised from the acetabulum. Sharp Hohmann retractors were placed anteriorly superiorly and posteriorly. Next initial acetabular reamer was placed 44 mm medialized to the medial wall and then sequential reaming was performed to size 54 mm. Trial cage was then placed and noted to be stable with excellent fit. Next the wound was irrigated with pulsatile lavage with bacitracin additive and 54 mm Barnard trident PSL cup was impacted and then two 30 mm screws were used to stabilize the acetabular shell. Next X3 poly 36 mm was impacted into the shell. Lap sponge was placed over to protect it. Next, attention was turned toward the proximal femur. Box osteotome was used to resect proximal portion of bone followed by first pass small reamer. Next, sequential broaching was performed up to size 6 and the 6 trial was placed followed by +0 36 mm trial head. Next, it was reduced and had excellent fit and feel with minimal shuck and excellent stability in all planes and range of motion. Leg lengths were restored and next all trial implants were removed. The wound was copiously irrigated with pulsatile lavage and size 5 Accolade TMZF x 132 degree final stem was impacted. Next, Biolox ceramic 36 mm head +0 neck was impacted. The construct was reduced. Range of motion was performed and noted to be completely stable with excellent range of motion, improved to greater degree than prior to surgery. Two 10 Kiswahili single Hemovac drains were placed exiting anterolaterally. Wound was irrigated with pulsatile lavage. Next a #5 FiberWire suture was used to close the capsule and gluteus minimum via two small bone tunnels made with 2.4 mm drill bit in the greater trochanter. After FiberWire closure was completed and noted to be stable then 10 Kiswahili drains were placed followed by closure of the vastus lateralis and the gluteus medius. This was closed with #1 Vicryl sutures. Sterile dilute Betadine was used to soak the incision for period of proxy 3 minutes. Next, the iliotibial band was closed using interrupted [id number] #1 Vicryl sutures. Next, final irrigation was performed with pulsatile lavage and dermis was closed using buried interrupted 2-0 Vicryl suture. The skin was closed with skin brooke. Sterile compressive dressing was applied. The patient was then placed supine, leg length noted to be equal, pulses strong and patient was then taken to recovery in stable condition. I attest to the content of the Intraoperative Record and any orders documented therein. Any exceptions are noted below. VAMSID
[2019-05-27] MEDS ORDERED: LABETALOL HCL IV 5 MG/ML 20ML IV ONE (11:57)
--- NOTE | 2019-05-27 12:53 | XRay Report ---
XR hip 1V RT w pelvis CLINICAL HISTORY: Postoperative evaluation. COMPARISON: CT of the abdomen and pelvis April 14, 2014. FINDINGS: Alignment of the total right hip arthroplasty is anatomic. There is no fracture or unexpec marcela radiopaque foreign body. Acetabular screws and surgical drain are noted. There is left hip osteoa rthritis. IMPRESSION: Expected findings following total right hip arthroplasty. ACT 112: Negative or not required by law. Electronically signed by: Alfred Avendaño M.D. 05/27/2019 12:51 PM
[2019-05-27] MEDS ORDERED: LEVALBUTEROL HCL 0.63 MG/3 ML NEB INH PRN (13:22)
[2019-05-27] MEDS ORDERED: ALUMINUM/MAGNESIUM SUSP 30 ML UDC PO PRN (13:22)
[2019-05-27] MEDS ORDERED: HYDROmorphone INJ 0.5 MG/0.5 ML SYR IV PRN (13:22)
[2019-05-27] MEDS ORDERED: TRIAMCINOLONE ACET 0.025% CR 15 GM TUBE TOP PRN (13:22)
[2019-05-27] MEDS ORDERED: MAGNESIUM HYDROXIDE SUSP 30 ML UDC PO PRN (13:22)
[2019-05-27] MEDS ORDERED: bisacodyL 10 MG SUPP PR PRN (13:22)
[2019-05-27] MEDS ORDERED: METOCLOPRAMIDE HCL INJ 5 MG/ML 2 ML VIAL IV PRN (13:22)
[2019-05-27] MEDS ORDERED: NALOXONE HCL 0.4 MG/1 ML VIAL/CARP IV PRN (13:22)
[2019-05-27] MEDS ORDERED: DICYCLOMINE HCL 20 MG TAB PO PRN (13:22)
--- NOTE | 2019-05-27 13:55 | Anesthesiology Progress Note ---
Date of Service May 27, 2019 Anesthesia Post Procedure Vital Signs Vital Signs: Temp Pulse Pulse Resp BP Pulse Ox 05/27/19 13:38 36.5 C 89 18 129/86 92 05/27/19 13:10 36.5 C 72 15 158/83 H 100 05/27/19 13:04 36.3 C L 79 18 143/93 H 100 05/27/19 12:50 76 17 145/88 H 100 05/27/19 12:40 74 15 147/85 H 100 05/27/19 12:30 72 15 141/86 H 100 05/27/19 12:20 54 L 16 131/79 100 05/27/19 12:10 76 19 140/88 100 05/27/19 12:00 62 16 125/85 100 05/27/19 11:51 36.1 C L 72 16 136/86 100 05/27/19 06:26 36.9 C 74 20 139/92 98 Pain Intensity Left Leg: Pain Intensity: 0 Transfer of Care Handoff Completed per policy Notes Mental Status: alert / awake / arousable and participated in evaluation Nausea / Vomiting: adequately controlled Pain: adequately controlled Airway Patency, RR, SpO2: stable & adequate BP & HR: stable & adequate Hydration State: stable & adequate Neuraxial Anesthesia: was administered and sensory block is resolving Anesthetic Complications: no major complications apparent and Pt Satisfied with anesthetic care
[2019-05-27] MEDS ORDERED: CLOBETASOL PROPIONATE 0.05% OINT 15 GM TUBE EXT PRN (13:59)
[2019-05-27] MEDS: ACETAMINOPHEN 500 MG TAB PO SCH ×2 (14:08→21:15)
[2019-05-27] MEDS: SODIUM CHLORIDE 0.9% 1000ML 1,000 ML IV SCH (14:08)
[2019-05-27] MEDS ORDERED: GLUCOSE 40% GEL 15 GM TUBE PO PRN (14:27)
[2019-05-27] MEDS ORDERED: GLUCOSE 10 TABS/TUBE PO PRN (14:27)
[2019-05-27] MEDS ORDERED: GLUCAGON FOR INJ 1 MG VIAL SQ PRN (14:27)
[2019-05-27] MEDS ORDERED: CARBOHYDRATES FOR HYPOGLYCEMIA PO PRN (14:27)
[2019-05-27] MEDS ORDERED: DEXTROSE 50% 50 ML SYRINGE IV PRN (14:27)
--- NOTE | 2019-05-27 14:43 | Hospitalist Consultation ---
Date of Consultation May 27, 2019 Assessment & Plan (1) History of total hip arthroplasty: Performed today, well tolerated. Patient with no acute complaints -Pain, nausea and bowel regimen per primary team -Activity instruction per primary team -Patient to continue ASA 81mg po BID x 4 weeks for DVT prophylaxis Present on Admission?: Yes (2) Osteoarthritis of right hip: s/p ZACK as above Present on Admission?: Yes (3) Essential hypertension: Blood pressure stable, well controlled -Continue Nitro patch -Continue Spironolactone -Continue Nifedipine -Continue to monitor Present on Admission?: Yes (4) GERD (gastroesophageal reflux disease): Chronic. Stable -Continue Protonix Present on Admission?: Yes (5) CKD (chronic kidney disease), stage IV: Repeat labs in AM -Avoid nephrotoxic agents -Renal dosing where needed Present on Admission?: Yes (6) Hypothyroidism: Chronic. Patient has had elevated TSH in the past. -Repeat TSH with AM labs -Continue Synthroid at home dose Present on Admission?: Yes (7) Depression: Chronic. Stable -Continue Duloxetine Present on Admission?: Yes (8) Vitamin D deficiency: Chronic. Stable -Continue Vitamin D supplementation (9) Psoriasis: Chronic. Well controlled. Patient is presently on Prednisone 5mg po daily. Attempt to wean in the past have been unsuccessful. -Continue Prednisone 5mg po daily -Continue triamcinolone and tacrolimus topical (10) Type II diabetes mellitus: Diet controlled. BS now = 168 -BS check qAC/qHS -ISS while inpatient -Patient may be discharged home and instructed to continue dietary modification to control her diabetes Thank you for this consult. The Hospitalist Team will sign off. Please do not hesitate to contact us with any questions or concerns. History of Present Illness Reason for Consultation: Medical management Attending Physician: Kimani Gonzales DO History of Present Illness Mike Vergara is a pleasant AA female with history of diet controlled DM, HTN/HLP/CKD, Psoriatic arthritis on chronic Prednisone. Longstanding history of OA right hip s/p ZACK performed today by Dr. Gonzales. Surgery was performed under MAC/spinal anesthesia, well tolerated, no complications identified. EBL 150mL. Patient presently feeling well. No complaints. No pain at this time. She is eating lunch without difficulty. No gas or BM yet. No nausea. Allergies Allergy/AdvReac Type Severity Reaction Status Date / Time codeine Allergy Severe Anaphylaxis Verified 05/27/19 06:05 Diclopak Allergy Intermediate CREATINE Verified 04/06/17 09:34 ELEVATION nickel Allergy Intermediate SKIN Verified 05/27/19 06:05 IRRITATION Iodinated Contrast Media Allergy Mild RASH Verified 05/27/19 06:05 Sulfa (Sulfonamide Allergy Mild RASH TO Verified 05/27/19 06:05 Antibiotics) SULFA DRUGS tetracycline Allergy Mild RASH Verified 05/27/19 06:05 diclofenac AdvReac Severe CREATINE Verified 05/27/19 06:05 ELEVATION capsaicin AdvReac Intermediate CREATINE Verified 05/27/19 06:05 ELEVATION celecoxib [From Celebrex] AdvReac Intermediate CREATINE Verified 05/27/19 06:05 ELEVATION isopropyl alcohol AdvReac Intermediate CREATINE Verified 05/27/19 06:05 ELEVATION propylene glycol AdvReac Intermediate CREATINE Verified 05/27/19 06:05 ELEVATION Home Medications Home Medications Medication Instructions Recorded Confirmed Type cholecalciferol (vitamin D3) 1,000 unit PO QAM 07/26/18 05/27/19 History [Vitamin D3] magnesium oxide 400 mg PO BID 07/26/18 05/27/19 History omega [id number] oil [Fish Oil] 1,000 mg PO BID 07/26/18 05/02/19 History aspirin 81 mg chewable tablet 81 mg PO QPM tab 11/23/18 05/27/19 History azelastine 137 mcg (0.1 %) nasal 2 spray INTRANASAL DAILY PRN ml 11/23/18 05/02/19 History spray aerosol dicyclomine 20 mg tablet 20 mg PO TID PRN 11/23/18 05/27/19 History levalbuterol HCl 0.63 mg/3 mL 0.63 mg INHALATION Q4H PRN #90 ml 12/10/18 05/02/19 Rx solution for nebulization pantoprazole 40 mg tablet,delayed 40 mg PO QAM #90 tab 12/27/18 05/27/19 Rx release potassium chloride 20 mEq 20 meq PO BID #180 tab 12/27/18 05/27/19 Rx tablet,extended release prednisone 5 mg tablet 5 mg PO HS #90 tab 12/27/18 05/27/19 Rx spironolactone 25 mg tablet 25 mg PO BID #180 tab 12/27/18 05/27/19 Rx duloxetine 60 mg PO QAM 02/21/19 05/27/19 History blood sugar diagnostic #50 ea 02/22/19 04/26/19 Rx blood-glucose meter #1 ea 02/22/19 04/26/19 Rx lancets #50 ea 02/22/19 04/26/19 Rx cetirizine 10 mg tablet 5 mg PO BID 03/05/19 05/27/19 History clobetasol 0.05 % topical cream 1 appln TOP DAILY PRN 03/26/19 05/02/19 History tacrolimus 0.03 % topical ointment 1 appln TOP BID PRN 03/26/19 05/02/19 History triamcinolone acetonide 0.025 % 1 appln TOP BID PRN 03/26/19 05/02/19 History topical cream nebulizers #1 ea 03/31/19 04/26/19 Rx levothyroxine 100 mcg PO QAM 05/02/19 05/27/19 History nifedipine 90 mg PO HS 05/02/19 05/27/19 History nitroglycerin 0.4 mg/hr 1 patch TRANSDERMAL DAILY #30 ea 05/12/19 05/27/19 Rx transdermal 24 hour patch Patient History Medical History (Updated 05/27/19 @ 21:32 by Bozena Alonso DO) Anemia, unspecified Cardiomegaly Chronic steroid use FOR PSORITRIC ARTHRITIS CKD (chronic kidney disease) stage 4, GFR 15-29 ml/min baseline creatinine 2.0-2.2 range; nephrology (Dr. Stevenson) monitoring Esophageal dysmotility Esophageal spasm Frequent UTI hx GERD (gastroesophageal reflux disease) CONTROLLED WITH MEDS Hearing loss, right Hiatal hernia HTN (hypertension) Hyperlipidemia Hypothyroidism Irritable bowel syndrome Lumbar radiculopathy Obesity Peptic ulcer disease Polyneuropathy Psoriatic arthropathy chronic prednisone 5mg HS Restless leg syndrome Schatzki's ring (Inactive) Spinal meningioma On c-spine- follows with [facility] [place] neurosurgery specialist (Dr. Ken)- under surveillance/stable/no indication for surgical intervention Spinal meningioma (Inactive) Tinnitus of right ear Type II diabetes mellitus (Chronic) diet controlled Surgical History (Updated 05/27/19 @ 14:40 by Bozena Alonso DO) H/O thyroidectomy History of arthroscopy RT/LEFT KNEE History of arthroscopy of right shoulder History of cardiac cath X2; 10+ YEARS AGO (NO STENTS) History of cataract extraction RT/LEFT History of cholecystectomy History of colonoscopy History of dilatation and curettage History of esophagogastroduodenoscopy (EGD) History of foot surgery RT FOOT FUSION History of lumbar fusion History of tonsillectomy and adenoidectomy History of tooth extraction History of total abdominal hysterectomy and bilateral salpingo-oophorectomy History of total hip arthroplasty History of total knee arthroplasty RIGHT Schatzki's ring HX S/P EGD WITH DILATION (2017) Status post total replacement of left shoulder Family History Mother Hypertension Arthritis Father Hypertension Family/Other Colon cancer Unknown FHx: allergies Hypertension Brother Cancer Other Family history non-contributory Social History Preferred Language: Georgian Communication Ability: Effective Communication Ability Comment: DEAF RIGHT EAR Visual Impairment: No Limitations Hearing Ability: Hard of Hearing 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 Other Information That Helps Us Care for You: No Feels Safe at Home: Yes Safety Concerns: Feels Safe At This Time Smoking Status: Former smoker Tobacco Type: cigarettes ; Cigarettes Per Day: QUIT AGE 26 ; Do You Dip or Chew Tobacco: No ; Second Hand Exposure: No ; Hx Alcohol Use: Yes Alcohol type: other Hx Substance Use: No Dental Care, Regularly: Yes Physical Activity Frequency: Does not Exercise Physical Activity Frequency Comment: Hip problems Seatbelt Use: always Sunscreen Use: No Review of Systems Review of Systems: General: Patient denies fevers, chills, malaise, weight loss or weight gain Skin: Patient denies bruising, bleeding or rash HEENT: Patient denies headache, visual changes, sore throat, difficulty swallowing, stiff neck Cardio: Patient denies chest pain, palpitations, shortness of breath, lightheadedness Pulmonary: Patient denies cough, wheeze GI: Patient denies abdominal pain, nausea, vomiting, diarrhea, constipation : Patient denies dysuria, frequency, urgency or hematuria Musculoskeletal: Patient denies swelling or pain of the joints, edema Neuro: Patient denies numbness, tingling, weakness or falls Psych: Patient denies depression, anxiety Physical Exam Physical Exam: General: patient resting comfortably, NAD, non-toxic in appearance, AA&O x 4 Skin: warm, dry, intact, no rashes or lesions HEENT: NC/AT, PERRL, EOMI, anicteric sclera, conjunctiva without injection, external ear normal to inspection and nontender, nares patent, moist mucus membranes, dentition intact, no oropharyngeal lesions, neck supple, trachea midline, no LAD, no thyromegaly, no JVD Heart: +S1/S2, regular, no m/r/g Lungs: equal air entry bilaterally, no rales/rhonchi/wheezes Abd: +BS, soft, NT/ND, no masses/organomegaly/ascites Ext: warm, 2+ pulses in UE/LE bilaterally, no clubbing/cyanosis or edema, drain in place with sanguinous output Neuro: nonfocal, patient AA&O x 4, speech intact, no facial droop, moving all extremities on command with equal strength 5/5 Results & Data Vital Signs (Past 12 Hours) Vital Signs Temp Pulse Pulse Resp BP Pulse Ox 05/27/19 14:10 36.5 C 94 H 18 139/84 97 05/27/19 13:38 36.5 C 89 18 129/86 92 05/27/19 13:10 36.5 C 72 15 158/83 H 100 05/27/19 13:04 36.3 C L 79 18 143/93 H 100 05/27/19 12:50 76 17 145/88 H 100 05/27/19 12:40 74 15 147/85 H 100 05/27/19 12:30 72 15 141/86 H 100 05/27/19 12:20 54 L 16 131/79 100 05/27/19 12:10 76 19 140/88 100 05/27/19 12:00 62 16 125/85 100 05/27/19 11:51 36.1 C L 72 16 136/86 100 05/27/19 06:26 36.9 C 74 20 139/92 98 Laboratory Results Lab Results 04/08/19 04/08/19 04/08/19 Range/Units 15:07 15:07 15:07 WBC 8.97 (4.8-10.8) K/uL RBC 3.77 L (4.2-5.4) M/uL Hgb 10.7 L (12.0-16.0) g/dL Hct 33.6 L (37-47) % MCV 89.1 (80-100) fL MCH 28.4 (25-34) pg MCHC 31.8 L (32-36) g/dL RDW Std Deviation 57.6 H (36.4-46.3) fL RDW Coeff of Amrita 17.7 H (11.5-14.5) % Plt Count 363 (130-400) K/uL MPV 10.4 (7.4-10.4) fL Immature Gran % (Auto) 0.7 % Neut % (Auto) 86.0 % Lymph % (Auto) 8.9 % [place] % (Auto) 4.3 % Eos % (Auto) 0.1 % Baso % (Auto) 0.0 % Immature Gran # (Auto) 0.06 H (0.00-0.02) K/uL Neut # (Auto) 7.71 H (1.4-6.5) K/uL Lymph # (Auto) 0.80 L (1.2-3.4) K/uL Marion # (Auto) 0.39 (0.11-0.59) K/uL Eos # (Auto) 0.01 (0-0.5) K/uL Baso # (Auto) 0.00 (0-0.2) K/uL PT 10.1 (9.0-12.0) Seconds INR 1.0 (0.9-1.1) APTT 22.6 (21.0-31.0) Seconds PTT Ratio 0.8 Sodium 136 (136-145) mmol/L Potassium 4.3 (3.5-5.1) mmol/L Chloride 104 (98-107) mmol/L Carbon Dioxide 26 (21-32) mmol/L Anion Gap 6.0 (3-11) BUN 30 H (7-18) mg/dl Creatinine 2.06 H (0.6-1.2) mg/dl Est GFR ( Amer) 27.2 Est GFR (Non-Af Amer) 23.5 BUN/Creatinine Ratio 14.8 (10-20) Glucose 133 H (70-99) mg/dl POC Glucose (70-99) Estimat Average Glucose mg/dl Hemoglobin A1c (4.5-5.6) % Calcium 8.9 (8.5-10.1) mg/dl Albumin 3.4 (3.4-5.0) gm/dl Urine Color Urine Appearance (Clear) Urine pH (4.5-7.5) Ur Specific [place] (1.000-1.030) Urine Protein (Negative) Urine Glucose (UA) (Negative) Urine Ketones (Negative) Urine Blood (Negative) Urine Nitrite (Negative) Urine Bilirubin (Negative) Urine Urobilinogen (Negative) Ur Leukocyte Esterase (Negative) Urine WBC (Auto) (0-5) /hpf Urine RBC (Auto) (0-4) /hpf U Hyaline Cast (Auto) (0-5) /lpf U Epithel Cells (Auto) (0-5) /lpf Urine Bacteria (Auto) (Negative) Blood Type Antibody Screen 04/08/19 04/08/19 04/08/19 Range/Units 15:07 15:07 15:07 WBC (4.8-10.8) K/uL RBC (4.2-5.4) M/uL Hgb (12.0-16.0) g/dL Hct (37-47) % MCV (80-100) fL MCH (25-34) pg MCHC (32-36) g/dL RDW Std Deviation (36.4-46.3) fL RDW Coeff of Amrita (11.5-14.5) % Plt Count (130-400) K/uL MPV (7.4-10.4) fL Immature Gran % (Auto) % Neut % (Auto) % Lymph % (Auto) % [place] % (Auto) % Eos % (Auto) % Baso % (Auto) % Immature Gran # (Auto) (0.00-0.02) K/uL Neut # (Auto) (1.4-6.5) K/uL Lymph # (Auto) (1.2-3.4) K/uL Marion # (Auto) (0.11-0.59) K/uL Eos # (Auto) (0-0.5) K/uL Baso # (Auto) (0-0.2) K/uL PT (9.0-12.0) Seconds INR (0.9-1.1) APTT (21.0-31.0) Seconds PTT Ratio Sodium (136-145) mmol/L Potassium (3.5-5.1) mmol/L Chloride (98-107) mmol/L Carbon Dioxide (21-32) mmol/L Anion Gap (3-11) BUN (7-18) mg/dl Creatinine (0.6-1.2) mg/dl Est GFR ( Amer) Est GFR (Non-Af Amer) BUN/Creatinine Ratio (10-20) Glucose (70-99) mg/dl POC Glucose (70-99) Estimat Average Glucose 151 mg/dl Hemoglobin A1c 6.9 H (4.5-5.6) % Calcium (8.5-10.1) mg/dl Albumin (3.4-5.0) gm/dl Urine Color Yellow Urine Appearance Clear (Clear) Urine pH 6.5 (4.5-7.5) Ur Specific [place] 1.017 (1.000-1.030) Urine Protein Trace H (Negative) Urine Glucose (UA) Negative (Negative) Urine Ketones Negative (Negative) Urine Blood Negative (Negative) Urine Nitrite Negative (Negative) Urine Bilirubin Negative (Negative) Urine Urobilinogen Negative (Negative) Ur Leukocyte Esterase Negative (Negative) Urine WBC (Auto) 1-5 (0-5) /hpf Urine RBC (Auto) 0-4 (0-4) /hpf U Hyaline Cast (Auto) 1-5 (0-5) /lpf U Epithel Cells (Auto) 10-20 H (0-5) /lpf Urine Bacteria (Auto) Negative (Negative) Blood Type O Negative Antibody Screen NEGATIVE 05/27/19 05/27/19 Range/Units 06:03 12:00 WBC (4.8-10.8) K/uL RBC (4.2-5.4) M/uL Hgb (12.0-16.0) g/dL Hct (37-47) % MCV (80-100) fL MCH (25-34) pg MCHC (32-36) g/dL RDW Std Deviation (36.4-46.3) fL RDW Coeff of Amrita (11.5-14.5) % Plt Count (130-400) K/uL MPV (7.4-10.4) fL Immature Gran % (Auto) % Neut % (Auto) % Lymph % (Auto) % [place] % (Auto) % Eos % (Auto) % Baso % (Auto) % Immature Gran # (Auto) (0.00-0.02) K/uL Neut # (Auto) (1.4-6.5) K/uL Lymph # (Auto) (1.2-3.4) K/uL Marion # (Auto) (0.11-0.59) K/uL Eos # (Auto) (0-0.5) K/uL Baso # (Auto) (0-0.2) K/uL PT (9.0-12.0) Seconds INR (0.9-1.1) APTT (21.0-31.0) Seconds PTT Ratio Sodium (136-145) mmol/L Potassium (3.5-5.1) mmol/L Chloride (98-107) mmol/L Carbon Dioxide (21-32) mmol/L Anion Gap (3-11) BUN (7-18) mg/dl Creatinine (0.6-1.2) mg/dl Est GFR ( Amer) Est GFR (Non-Af Amer) BUN/Creatinine Ratio (10-20) Glucose (70-99) mg/dl POC Glucose 137 H 148 H (70-99) Estimat Average Glucose mg/dl Hemoglobin A1c (4.5-5.6) % Calcium (8.5-10.1) mg/dl Albumin (3.4-5.0) gm/dl Urine Color Urine Appearance (Clear) Urine pH (4.5-7.5) Ur Specific [place] (1.000-1.030) Urine Protein (Negative) Urine Glucose (UA) (Negative) Urine Ketones (Negative) Urine Blood (Negative) Urine Nitrite (Negative) Urine Bilirubin (Negative) Urine Urobilinogen (Negative) Ur Leukocyte Esterase (Negative) Urine WBC (Auto) (0-5) /hpf Urine RBC (Auto) (0-4) /hpf U Hyaline Cast (Auto) (0-5) /lpf U Epithel Cells (Auto) (0-5) /lpf Urine Bacteria (Auto) (Negative) Blood Type Antibody Screen Diagnostic Findings XR hip 1V RT w pelvis CLINICAL HISTORY: Postoperative evaluation. COMPARISON: CT of the abdomen and pelvis April 14, 2014. FINDINGS: Alignment of the total right hip arthroplasty is anatomic. There is no fracture or unexpected radiopaque foreign body. Acetabular screws and surgical drain are noted. There is left hip osteoarthritis. IMPRESSION: Expected findings following total right hip arthroplasty. ACT 112: Negative or not required by law. Electronically signed by: Alfred Avendaño M.D. 05/27/2019 12:51 PM Dictated: 05/27/19 1250 Transcribed: 05/27/19 1250 PG Care Time/CCT Total # of Minutes Spent Total Time Spent with Patient: Total time spent is greater than 50% in coordination of care (as documented) at patient's floor/unit and/or counseling patient: (1) Type II diabetes mellitus Chronic kidney disease stage: stage 4 (severe) 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 complication detail: with chronic kidney disease 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 complication status: with kidney complications 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 senior living insulin use: without termination clerk use Qualified Code(s): E11.22 - Type 2 diabetes mellitus with diabetic chronic kidney disease; N18.4 - Chronic kidney disease, stage 4 (severe) (2) Hypothyroidism Hypothyroidism type: unspecified Qualified Code(s): E03.9 - Hypothyroidism, unspecified (3) History of total hip arthroplasty Laterality: right Qualified Code(s): Z96.641 - Presence of right artificial hip joint (4) GERD (gastroesophageal reflux disease) Esophagitis presence: esophagitis presence not specified Qualified Code(s): K21.9 - Gastro-esophageal reflux disease without esophagitis
[2019-05-27] MEDS: OXYCODONE HCL IR 5 MG TAB (IMMEDIATE RELEASE) PO PRN ×2 (15:34→19:14)
[2019-05-27] MEDS: SPIRONOLACTONE 25 MG TAB PO SCH (16:12)
[2019-05-27] MEDS: CEFAZOLIN 2000MG 2,000 MG/15 ML SYR IV SCH (16:12)
[2019-05-27] MEDS: KETOROLAC TROMETHAMINE 15 MG/ML VIAL IV SCH (17:57)
[2019-05-27] MEDS: NIFEdipine EXTENDED REL 30 MG TABCR PO SCH (21:15)
[2019-05-27] MEDS: SENNA 8.6 MG TAB PO SCH (21:15)
[2019-05-27] MEDS: MAGNESIUM OXIDE 400 MG TAB PO SCH (21:15)
[2019-05-27] MEDS: predniSONE 5 MG TAB PO SCH (21:15)
[2019-05-27] MEDS: DOCUSATE SODIUM 100 MG CAP PO SCH (21:15)
[2019-05-27] MEDS: ASPIRIN 81 MG ECTAB PO SCH (21:15)
[2019-05-27] MEDS: POTASSIUM CHLORIDE 20 MEQ TABCR PO SCH (21:15)
[2019-05-27] MEDS: OMEGA-3 (PURIFIED FISH OIL) 1 GM CAP PO SCH (21:15)
[2019-05-28] MEDS: SODIUM CHLORIDE 0.9% 1000ML 1,000 ML IV SCH (00:04)
[2019-05-28] MEDS: CEFAZOLIN 2000MG 2,000 MG/15 ML SYR IV SCH (00:04)
[2019-05-28] MEDS: KETOROLAC TROMETHAMINE 15 MG/ML VIAL IV SCH ×3 (00:05→12:39)
[2019-05-28] MEDS: OXYCODONE HCL IR 5 MG TAB (IMMEDIATE RELEASE) PO PRN ×4 (04:11→22:32)
[2019-05-28] MEDS: ACETAMINOPHEN 500 MG TAB PO SCH ×3 (06:07→21:29)
[2019-05-28 06:51] LABS: Basophils # (auto) 0.01 K/uL (0-0.2); Basophils % (auto) 0.1 %; Hematocrit (blood only) 24.7 % (37-47); Hemoglobin 7.9 g/dL (12.0-16.0); Immature Granulocytes # (auto) 0.06 K/uL (0.00-0.02); Immature Granulocytes % (auto) 0.4 %; Lymphocytes # (auto) 1.06 K/uL (1.2-3.4); Mean Corpuscular Hemoglobin 29.3 pg (25-34); Mean Corpuscular Volume 91.5 fL (80-100); Mean Platelet Volume 9.9 fL (7.4-10.4); Monocytes # (auto) 1.25 K/uL (0.11-0.59); Monocytes % (auto) 8.2 %; Neutrophils # (auto) 12.84 K/uL (1.4-6.5); Neutrophils % (auto) 84.3 %; Platelet Count 281 K/uL (130-400); RDW Coefficient of Variation 17.5 % (11.5-14.5); RDW Standard Deviation 58.1 fL (36.4-46.3); White Blood Count 15.22 K/uL (4.8-10.8)
--- NOTE | 2019-05-28 07:00 | Orthopedic Progress Note ---
Date of Service May 28, 2019 Assessment & Plan (1) History of total right hip replacement: POD #1 s/p Right Total hip arthoplasty PT/OT DVT proph with JAQUELINE/SCD/ASA she wishes to go home with HHPT Acute blood loss anemia- H/H today 7.9/24.7, she is currently asymptomatic, vitals stable. will continue to observe, recheck H/H in the am. Subjective POD #1 s/p Right ZACK Review of Systems Review of Systems: All systems reviewed & are unremarkable except as noted in HPI & below Constitutional: no fever, no chills and no sweats Respiratory: no cough and no dyspnea on exertion Cardiovascular: no chest pain, no dyspnea and no orthopnea Gastrointestinal: no nausea and no vomiting Physical Exam Physical Exam: Vital Signs Temp Pulse Pulse Resp BP Pulse Ox 05/28/19 03:45 36.4 C L 82 18 152/84 H 97 05/27/19 22:38 36.5 C 80 17 145/84 H 97 05/27/19 18:15 36.8 C 83 17 135/86 99 05/27/19 16:04 36.8 C 88 17 134/74 99 05/27/19 15:20 36.7 C 91 H 18 128/80 100 05/27/19 14:10 36.5 C 94 H 18 139/84 97 05/27/19 13:38 36.5 C 89 18 129/86 92 05/27/19 13:10 36.5 C 72 15 158/83 H 100 05/27/19 13:04 36.3 C L 79 18 143/93 H 100 05/27/19 12:50 76 17 145/88 H 100 05/27/19 12:40 74 15 147/85 H 100 05/27/19 12:30 72 15 141/86 H 100 05/27/19 12:20 54 L 16 131/79 100 05/27/19 12:10 76 19 140/88 100 05/27/19 12:00 62 16 125/85 100 05/27/19 11:51 36.1 C L 72 16 136/86 100 Intake and Output 05/27/19 05/27/19 05/28/19 14:59 22:59 06:59 Intake Total 1850 / 5393.333 2343.333 / 5393.33 3 1200 / 5393.333 Output Total 190 / 1455 550 / 1455 715 / 1455 Balance 1660 / 3938.333 1793.333 / 3938.33 3 485 / 3938.333 Intake: IV 500 / 2493.333 793.333 / 2493.333 1200 / 2493.333 Nss 1000ML 1,0 00 ml @ 100 mls/ 500 / 2493.333 793.333 / 2493.333 1200 / 2493.333 hr IV .Q10H SC H Rx#:[id number] IV Perioperative 1350 / 1350 Oral 1550 / 1550 Output: Urine 300 / 925 625 / 925 Estimated Blood Loss 150 / 150 Drain Output 40 / 380 250 / 380 90 / 380 Right Hip Hemo vac 40 / 380 250 / 380 90 / 380 Other: Weight 90.1 kg Patient Weight 05/28/19 06:59 Weight 90.1 kg Constitutional: WD/WN, vitals as above no acute distress Musculoskeletal: right hip: NVDI, Calf SNT, dressing is clean and dry. she is able to wiggle her toes/ankle without difficulty Results & Data Vital Signs (Past 12 Hours) Vital Signs Temp Pulse Resp BP Pulse Ox 05/28/19 03:45 36.4 C L 82 18 152/84 H 97 05/27/19 22:38 36.5 C 80 17 145/84 H 97 Laboratory Results Laboratory Results WBC 15.22 K/uL (4.8-10.8) H 05/28/19 06:23 RBC 2.70 M/uL (4.2-5.4) L 05/28/19 06:23 Hgb 7.9 g/dL (12.0-16.0) L 05/28/19 06:23 Hct 24.7 % (37-47) L 05/28/19 06:23 MCV 91.5 fL (80-100) 05/28/19 06:23 MCH 29.3 pg (25-34) 05/28/19 06:23 MCHC 32.0 g/dL (32-36) 05/28/19 06:23 RDW Std Deviation 58.1 fL (36.4-46.3) H 05/28/19 06:23 RDW Coeff of Amrita 17.5 % (11.5-14.5) H 05/28/19 06:23 Plt Count 281 K/uL (130-400) 05/28/19 06:23 MPV 9.9 fL (7.4-10.4) 05/28/19 06:23 Immature Gran % (Auto) 0.4 % 05/28/19 06:23 Neut % (Auto) 84.3 % 05/28/19 06:23 Lymph % (Auto) 7.0 % 05/28/19 06:23 [place] % (Auto) 8.2 % 05/28/19 06:23 Eos % (Auto) 0.0 % 05/28/19 06:23 Baso % (Auto) 0.1 % 05/28/19 06:23 Immature Gran # (Auto) 0.06 K/uL (0.00-0.02) H 05/28/19 06:23 Neut # (Auto) 12.84 K/uL (1.4-6.5) H 05/28/19 06:23 Lymph # (Auto) 1.06 K/uL (1.2-3.4) L 05/28/19 06:23 [place] # (Auto) 1.25 K/uL (0.11-0.59) H 05/28/19 06:23 Eos # (Auto) 0.00 K/uL (0-0.5) 05/28/19 06:23 Baso # (Auto) 0.01 K/uL (0-0.2) 05/28/19 06:23 PT 10.1 Seconds (9.0-12.0) 04/08/19 15:07 INR 1.0 (0.9-1.1) 04/08/19 15:07 APTT 22.6 Seconds (21.0-31.0) 04/08/19 15:07 PTT Ratio 0.8 04/08/19 15:07 Sodium 136 mmol/L (136-145) 04/08/19 15:07 Potassium 4.3 mmol/L (3.5-5.1) 04/08/19 15:07 Chloride 104 mmol/L (98-107) 04/08/19 15:07 Carbon Dioxide 26 mmol/L (21-32) 04/08/19 15:07 Anion Gap 6.0 (3-11) 04/08/19 15:07 BUN 30 mg/dl (7-18) H 04/08/19 15:07 Creatinine 2.06 mg/dl (0.6-1.2) H 04/08/19 15:07 Est GFR ( Amer) 27.2 04/08/19 15:07 Est GFR (Non-Af Amer) 23.5 04/08/19 15:07 BUN/Creatinine Ratio 14.8 (10-20) 04/08/19 15:07 Glucose 133 mg/dl (70-99) H 04/08/19 15:07 POC Glucose 168 (70-99) H 05/27/19 20:58 Estimat Average Glucose 151 mg/dl 04/08/19 15:07 Hemoglobin A1c 6.9 % (4.5-5.6) H 04/08/19 15:07 Calcium 8.9 mg/dl (8.5-10.1) 04/08/19 15:07 Albumin 3.4 gm/dl (3.4-5.0) 04/08/19 15:07 Urine Color Yellow 04/08/19 15:07 Urine Appearance Clear (Clear) 04/08/19 15:07 Urine pH 6.5 (4.5-7.5) 04/08/19 15:07 Ur Specific [place] 1.017 (1.000-1.030) 04/08/19 15:07 Urine Protein Trace (Negative) H 04/08/19 15:07 Urine Glucose (UA) Negative (Negative) 04/08/19 15:07 Urine Ketones Negative (Negative) 04/08/19 15:07 Urine Blood Negative (Negative) 04/08/19 15:07 Urine Nitrite Negative (Negative) 04/08/19 15:07 Urine Bilirubin Negative (Negative) 04/08/19 15:07 Urine Urobilinogen Negative (Negative) 04/08/19 15:07 Ur Leukocyte Esterase Negative (Negative) 04/08/19 15:07 Urine WBC (Auto) 1-5 /hpf (0-5) 04/08/19 15:07 Urine RBC (Auto) 0-4 /hpf (0-4) 04/08/19 15:07 U Hyaline Cast (Auto) 1-5 /lpf (0-5) 04/08/19 15:07 U Epithel Cells (Auto) 10-20 /lpf (0-5) H 04/08/19 15:07 Urine Bacteria (Auto) Negative (Negative) 04/08/19 15:07 Blood Type O Negative 04/08/19 15:07 Antibody Screen NEGATIVE 04/08/19 15:07 Diagnostic Findings XR hip 1V RT w pelvis CLINICAL HISTORY: Postoperative evaluation. COMPARISON: CT of the abdomen and pelvis April 14, 2014. FINDINGS: Alignment of the total right hip arthroplasty is anatomic. There is no fracture or unexpected radiopaque foreign body. Acetabular screws and surgical drain are noted. There is left hip osteoarthritis. IMPRESSION: Expected findings following total right hip arthroplasty.
[2019-05-28] MEDS: LEVOTHYROXINE SODIUM 100 MCG TABLET PO SCH (07:08)
[2019-05-28 07:17] LABS: BUN Creatinine Ratio 12.6 (10-20); Calcium 8.2 mg/dl (8.5-10.1); Creatinine Clr Calc Pharmacy 20.6 ml/min; Est GFR (Non-African American) 14.7; Potassium 4.3 mmol/L (3.5-5.1)
[2019-05-28 07:28] LABS: Thyroid Stimulating Hormone 0.486 uIu/ml (0.300-4.500)
[2019-05-28 08:07] LABS: Anisocytosis Present; Polychromasia 1+
[2019-05-28] MEDS: PANTOprazole 40 MG TAB PO SCH (08:23)
[2019-05-28] MEDS: SPIRONOLACTONE 25 MG TAB PO SCH ×2 (08:23→17:59)
[2019-05-28] MEDS: POTASSIUM CHLORIDE 20 MEQ TABCR PO SCH ×2 (08:24→21:23)
[2019-05-28] MEDS: CHOLECALCIFEROL 1,000 UNITS TAB PO SCH (08:24)
[2019-05-28] MEDS: ASPIRIN 81 MG ECTAB PO SCH ×2 (08:24→21:23)
[2019-05-28] MEDS: MAGNESIUM OXIDE 400 MG TAB PO SCH ×2 (08:24→21:24)
[2019-05-28] MEDS: MULTIVITAMIN TAB PO SCH (08:24)
[2019-05-28] MEDS: OMEGA-3 (PURIFIED FISH OIL) 1 GM CAP PO SCH ×2 (08:24→21:24)
[2019-05-28] MEDS: NITROGLYCERIN 0.4 MG/HR PATCH TD SCH (08:25)
[2019-05-28] MEDS: DULOXETINE HCL 60 MG CAP PO SCH (08:25)
[2019-05-28] MEDS: DOCUSATE SODIUM 100 MG CAP PO SCH ×2 (08:25→21:22)
[2019-05-28] MEDS: CETIRIZINE HCL 10 MG TABLET PO SCH ×2 (08:26→21:25)
[2019-05-28] MEDS: INSULIN ASPART 100 UNITS/ML 3 ML PEN SC SCH ×4 (08:27→21:31)
[2019-05-28] MEDS ORDERED: CETIRIZINE HCL 10 MG TABLET PO SCH (09:00)
[2019-05-28] MEDS: predniSONE 5 MG TAB PO SCH (21:24)
[2019-05-28] MEDS: SENNA 8.6 MG TAB PO SCH (21:25)
[2019-05-28] MEDS: NIFEdipine EXTENDED REL 30 MG TABCR PO SCH (21:25)
[2019-05-29] MEDS: OXYCODONE HCL IR 5 MG TAB (IMMEDIATE RELEASE) PO PRN ×4 (03:20→23:35)
[2019-05-29 05:46] LABS: Hematocrit (blood only) 21.9 % (37-47); Hemoglobin 7.1 g/dL (12.0-16.0)
[2019-05-29] MEDS: ACETAMINOPHEN 500 MG TAB PO SCH ×3 (06:02→22:17)
--- NOTE | 2019-05-29 06:52 | Orthopedic Progress Note ---
Date of Service May 29, 2019 Assessment & Plan (1) History of total right hip replacement: POD #2 s/p Right Total hip arthroplasty PT/OT DVT proph with JAQUELINE/SCD/ASA she wishes to go home with HHPT Acute blood loss anemia- H/H today dropped to 7.1/21.9, will await medical team recommendations re: transfusion. Subjective POD #2 s/p Right ZACK Review of Systems Constitutional: no fever and no chills Cardiovascular: no chest pain, no dyspnea and no orthopnea Gastrointestinal: no nausea and no vomiting Physical Exam Physical Exam: Vital Signs Temp Pulse Resp BP Pulse Ox 05/29/19 00:20 36.5 C 80 18 127/68 99 05/28/19 16:24 36.7 C 102 H 16 154/72 H 98 05/28/19 11:51 65 18 114/60 98 05/28/19 08:01 36.6 C 78 18 143/75 H 98 Intake and Output 05/28/19 05/28/19 05/29/19 14:59 22:59 06:59 Intake Total 1175 / 2075 900 / 2075 Output Total 500 / 550 0 / 550 50 / 550 Balance 675 / 1525 900 / 1525 -50 / 1525 Intake: Oral 1175 / 2075 900 / 2075 Output: Urine 400 / 400 Drain Output 100 / 150 0 / 150 50 / 150 Right Hip Hemo vac 100 / 150 0 / 150 50 / 150 Other: # Unmeasured Voi ds 1 Constitutional: WD/WN, vitals as above no acute distress Musculoskeletal: right hip: prevena intact and functioning, calf SNT, NVDI. able to wiggle toes and ankle without difficulty. Results & Data Vital Signs (Past 12 Hours) Vital Signs Temp Pulse Resp BP Pulse Ox 05/29/19 00:20 36.5 C 80 18 127/68 99 Laboratory Results Laboratory Results WBC 15.22 K/uL (4.8-10.8) H 05/28/19 06:23 RBC 2.70 M/uL (4.2-5.4) L 05/28/19 06:23 Hgb 7.1 g/dL (12.0-16.0) L 05/29/19 05:15 Hct 21.9 % (37-47) L 05/29/19 05:15 MCV 91.5 fL (80-100) 05/28/19 06:23 MCH 29.3 pg (25-34) 05/28/19 06:23 MCHC 32.0 g/dL (32-36) 05/28/19 06:23 RDW Std Deviation 58.1 fL (36.4-46.3) H 05/28/19 06:23 RDW Coeff of Amrita 17.5 % (11.5-14.5) H 05/28/19 06:23 Plt Count 281 K/uL (130-400) 05/28/19 06:23 MPV 9.9 fL (7.4-10.4) 05/28/19 06:23 Immature Gran % (Auto) 0.4 % 05/28/19 06:23 Neut % (Auto) 84.3 % 05/28/19 06:23 Lymph % (Auto) 7.0 % 05/28/19 06:23 [place] % (Auto) 8.2 % 05/28/19 06:23 Eos % (Auto) 0.0 % 05/28/19 06:23 Baso % (Auto) 0.1 % 05/28/19 06:23 Immature Gran # (Auto) 0.06 K/uL (0.00-0.02) H 05/28/19 06:23 Neut # (Auto) 12.84 K/uL (1.4-6.5) H 05/28/19 06:23 Lymph # (Auto) 1.06 K/uL (1.2-3.4) L 05/28/19 06:23 [place] # (Auto) 1.25 K/uL (0.11-0.59) H 05/28/19 06:23 Eos # (Auto) 0.00 K/uL (0-0.5) 05/28/19 06:23 Baso # (Auto) 0.01 K/uL (0-0.2) 05/28/19 06:23 Polychromasia 1+ 05/28/19 06:23 Anisocytosis Present 05/28/19 06:23 PT 10.1 Seconds (9.0-12.0) 04/08/19 15:07 INR 1.0 (0.9-1.1) 04/08/19 15:07 APTT 22.6 Seconds (21.0-31.0) 04/08/19 15:07 PTT Ratio 0.8 04/08/19 15:07 Sodium 134 mmol/L (136-145) L 05/28/19 06:23 Potassium 4.3 mmol/L (3.5-5.1) 05/28/19 06:23 Chloride 105 mmol/L (98-107) 05/28/19 06:23 Carbon Dioxide 22 mmol/L (21-32) 05/28/19 06:23 Anion Gap 7.0 (3-11) 05/28/19 06:23 BUN 38 mg/dl (7-18) H 05/28/19 06:23 Creatinine 3.02 mg/dl (0.6-1.2) H 05/28/19 06:23 Est Cr Clr Drug Dosing 20.6 ml/min 05/28/19 06:23 Est GFR ( Amer) 17.0 05/28/19 06:23 Est GFR (Non-Af Amer) 14.7 05/28/19 06:23 BUN/Creatinine Ratio 12.6 (10-20) 05/28/19 06:23 Glucose 129 mg/dl (70-99) H 05/28/19 06:23 POC Glucose 142 (70-99) H 05/28/19 20:40 Estimat Average Glucose 151 mg/dl 04/08/19 15:07 Hemoglobin A1c 6.9 % (4.5-5.6) H 04/08/19 15:07 Calcium 8.2 mg/dl (8.5-10.1) L 05/28/19 06:23 Albumin 3.4 gm/dl (3.4-5.0) 04/08/19 15:07 TSH 0.486 uIu/ml (0.300-4.500) 05/28/19 06:23 Urine Color Yellow 04/08/19 15:07 Urine Appearance Clear (Clear) 04/08/19 15:07 Urine pH 6.5 (4.5-7.5) 04/08/19 15:07 Ur Specific Fleming 1.017 (1.000-1.030) 04/08/19 15:07 Urine Protein Trace (Negative) H 04/08/19 15:07 Urine Glucose (UA) Negative (Negative) 04/08/19 15:07 Urine Ketones Negative (Negative) 04/08/19 15:07 Urine Blood Negative (Negative) 04/08/19 15:07 Urine Nitrite Negative (Negative) 04/08/19 15:07 Urine Bilirubin Negative (Negative) 04/08/19 15:07 Urine Urobilinogen Negative (Negative) 04/08/19 15:07 Ur Leukocyte Esterase Negative (Negative) 04/08/19 15:07 Urine WBC (Auto) 1-5 /hpf (0-5) 04/08/19 15:07 Urine RBC (Auto) 0-4 /hpf (0-4) 04/08/19 15:07 U Hyaline Cast (Auto) 1-5 /lpf (0-5) 04/08/19 15:07 U Epithel Cells (Auto) 10-20 /lpf (0-5) H 04/08/19 15:07 Urine Bacteria (Auto) Negative (Negative) 04/08/19 15:07 Blood Type O Negative 04/08/19 15:07 Antibody Screen NEGATIVE 04/08/19 15:07
[2019-05-29] MEDS: LEVOTHYROXINE SODIUM 100 MCG TABLET PO SCH (07:09)
[2019-05-29] MEDS: OMEGA-3 (PURIFIED FISH OIL) 1 GM CAP PO SCH ×2 (08:35→20:28)
[2019-05-29] MEDS: CHOLECALCIFEROL 1,000 UNITS TAB PO SCH (08:36)
[2019-05-29] MEDS: CETIRIZINE HCL 10 MG TABLET PO SCH ×2 (08:36→20:22)
[2019-05-29] MEDS: MAGNESIUM OXIDE 400 MG TAB PO SCH ×2 (08:37→20:28)
[2019-05-29] MEDS: ASPIRIN 81 MG ECTAB PO SCH ×2 (08:37→20:28)
[2019-05-29] MEDS: DULOXETINE HCL 60 MG CAP PO SCH (08:37)
[2019-05-29] MEDS: DOCUSATE SODIUM 100 MG CAP PO SCH ×2 (08:37→20:28)
[2019-05-29] MEDS: MULTIVITAMIN TAB PO SCH (08:37)
[2019-05-29] MEDS: POTASSIUM CHLORIDE 20 MEQ TABCR PO SCH ×2 (08:37→20:28)
[2019-05-29] MEDS: PANTOprazole 40 MG TAB PO SCH (08:37)
[2019-05-29] MEDS: NITROGLYCERIN 0.4 MG/HR PATCH TD SCH (08:38)
[2019-05-29] MEDS: SPIRONOLACTONE 25 MG TAB PO SCH ×2 (08:38→17:16)
[2019-05-29] MEDS: INSULIN ASPART 100 UNITS/ML 3 ML PEN SC SCH ×4 (08:42→20:31)
[2019-05-29] MEDS ORDERED: MAGNESIUM HYDROXIDE SUSP 30 ML UDC PO ONE (11:56)
[2019-05-29] MEDS ORDERED: SODIUM CHLORIDE 0.9% 250 ML IV PRN ×2 (12:01→17:34)
--- NOTE | 2019-05-29 12:11 | Hospitalist Progress Note ---
Date of Service May 29, 2019 Assessment & Plan (1) Anemia: Likely related to OR status, however did continue to drop on POD #3 Transfuse 2 units Repeat in AM Hemoccult pending given episode 1/4 HS, however that was more likely related to constipation/straining in the post-op setting Pt takes aspirin 81mg QD at baseline, and this has been increased to BID for post-op DVT proph, will continue for now, but if further concerns for GIB will hold (2) Rectal abnormality: Prolapsed rectum vs hemorrhoid in the setting of post-op status causing constipation Increase bowel regimen to MOM/senna scheduled Advised pt to not strain If recurrence or becomes painful, t/c gen surg c/s (3) History of total hip arthroplasty: s/p OR on 05/[address] Gonzales -Pain, nausea and bowel regimen per primary team -Activity instruction per primary team -Patient to continue ASA 81mg po BID x 4 weeks for DVT prophylaxis (4) Osteoarthritis of right hip: s/p ZACK as above (5) Essential hypertension: Blood pressure stable, well controlled -Continue Nitro patch -Continue Spironolactone -Continue Nifedipine -Continue to monitor (6) GERD (gastroesophageal reflux disease): Chronic. Stable -Continue Protonix (7) CKD (chronic kidney disease), stage IV: Repeat labs in AM -Avoid nephrotoxic agents -Renal dosing where needed (8) Hypothyroidism: Chronic. Patient has had elevated TSH in the past. -Repeat TSH with AM labs -Continue Synthroid at home dose (9) Depression: Chronic. Stable -Continue Duloxetine (10) Vitamin D deficiency: Chronic. Stable -Continue Vitamin D supplementation (11) Psoriasis: Chronic. Well controlled. Patient is presently on Prednisone 5mg po daily. Attempt to wean in the past have been unsuccessful. -Continue Prednisone 5mg po daily -Continue triamcinolone and tacrolimus topical (12) Type II diabetes mellitus: Diet controlled. BS now = 168 -BS check qAC/qHS -ISS while inpatient -Patient may be discharged home and instructed to continue dietary modification to control her diabetes Thank you for this consult. The Hospitalist Team will sign off. Please do not hesitate to contact us with any questions or concerns. Subjective Pt had been seen by our service on POD #1, however was signed off on at that time. We were asked to see pt again due to drop in Hb. Pt was straining last night to have a bowel movement and suddenly felt "something like a golf ball fall out". It was not painful, but she did notice a small streak of blood with this. She has never had anything like this happen in the past. She called nursing and was told it did not look like a hemorrhoid. She states she got back into bed and at some point "it went back in". She has no pain to the rectum and has noticed no bleeding. She did pass a small amount of stool, but still feels constipated. There was no bright red or dark stools. She has been eating prunes and taking "whatever laxatives and softeners they have been giving me". Pt states that yesterday she was up and walking without issue. She does note a bit of lightheadedness today when getting out of bed. She also had some SOB "like a little bit of wheezing" today. She states she has some right sided lateralized lower abd pain when she passes gas. No left sided pain. She has not had or attempted another bowel movement. Pt denies fever, chest pain, n/v, LE pain or swelling. Pt states she takes spironolactone for HTN management only. Denies hx of LE swelling. Review of Systems Review of Systems: Pertinent positives and negatives reviewed in HPI--all others negative Physical Exam Constitutional: WD/WN, vitals as above Eyes: normal visual osman by confrontation and + anicteric sclerae Neck: normal visual inspection and trachea midline Respiratory: normal respiratory effort, lungs clear to auscultation Cardiovascular: Rate/Rhythm: regular rate and regular rhythm Gastrointestinal (Abdomen): Inspection/Auscultation: abdomen not distended Percussion/Palpation: abdomen soft; abdomen nontender Musculoskeletal: Head/Neck/Chest: normocephalic and head atraumatic negative for edema, peripheral pulses intact Skin: no rashes, warm and dry Neurologic: awake; not confused Speech / Cognition: normal speech Psychiatric: A+Ox3, euthymic affect Results & Data Vital Signs (Past 12 Hours) Vital Signs Temp Pulse Resp BP Pulse Ox 05/29/19 07:29 36.8 C 67 18 114/66 99 05/29/19 00:20 36.5 C 80 18 127/68 99 PG Care Time/CCT Total # of Minutes Spent Total Time Spent with Patient: Total time spent is greater than 50% in coordination of care (as documented) at patient's floor/unit and/or counseling patient: (1) History of total hip arthroplasty Laterality: right Qualified Code(s): Z96.641 - Presence of right artificial hip joint (2) GERD (gastroesophageal reflux disease) Esophagitis presence: esophagitis presence not specified Qualified Code(s): K21.9 - Gastro-esophageal reflux disease without esophagitis (3) Hypothyroidism Hypothyroidism type: unspecified Qualified Code(s): E03.9 - Hypothyroidism, unspecified (4) Type II diabetes mellitus 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 terminal system operator insulin use: without usp use 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 complication status: with kidney complications 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 complication detail: with chronic kidney disease Chronic kidney disease stage: stage 4 (severe) Qualified Code(s): E11.22 - Type 2 diabetes mellitus with diabetic chronic kidney disease; N18.4 - Chronic kidney disease, stage 4 (severe)
[2019-05-29] MEDS: SENNA 8.6 MG TAB PO SCH ×2 (12:39→20:23)
[2019-05-29] MEDS: NIFEdipine EXTENDED REL 30 MG TABCR PO SCH (20:24)
[2019-05-29] MEDS: predniSONE 5 MG TAB PO SCH (20:27)
[2019-05-30 04:48] LABS: Basophils # (auto) 0.01 K/uL (0-0.2); Basophils % (auto) 0.1 %; Eosinophils # (auto) 0.08 K/uL (0-0.5); Eosinophils % (auto) 0.7 %; Hematocrit (blood only) 27.1 % (37-47); Hemoglobin 8.7 g/dL (12.0-16.0); Immature Granulocytes # (auto) 0.06 K/uL (0.00-0.02); Immature Granulocytes % (auto) 0.5 %; Lymphocytes # (auto) 0.76 K/uL (1.2-3.4); Lymphocytes % (auto) 6.7 %; Mean Corpuscular Hemoglobin 28.8 pg (25-34); Mean Corpuscular Hgb Conc 32.1 g/dL (32-36); Mean Corpuscular Volume 89.7 fL (80-100); Mean Platelet Volume 9.4 fL (7.4-10.4); Monocytes # (auto) 0.82 K/uL (0.11-0.59); Monocytes % (auto) 7.2 %; Neutrophils # (auto) 9.66 K/uL (1.4-6.5); Neutrophils % (auto) 84.8 %; Platelet Count 233 K/uL (130-400); RDW Coefficient of Variation 17.3 % (11.5-14.5); RDW Standard Deviation 56.5 fL (36.4-46.3); Red Blood Count 3.02 M/uL (4.2-5.4); White Blood Count 11.39 K/uL (4.8-10.8)
[2019-05-30] MEDS: LEVOTHYROXINE SODIUM 100 MCG TABLET PO SCH (04:49)
[2019-05-30] MEDS: ACETAMINOPHEN 500 MG TAB PO SCH ×2 (05:06→13:56)
[2019-05-30 05:18] LABS: BUN Creatinine Ratio 13.5 (10-20); Calcium 8.3 mg/dl (8.5-10.1); Creatinine Clr Calc Pharmacy 29.6 ml/min; Est GFR (African American) 26.4; Est GFR (Non-African American) 22.8; Potassium 5.1 mmol/L (3.5-5.1)
[2019-05-30] MEDS: DOCUSATE SODIUM 100 MG CAP PO SCH (08:10)
[2019-05-30] MEDS: DULOXETINE HCL 60 MG CAP PO SCH (08:10)
[2019-05-30] MEDS: SPIRONOLACTONE 25 MG TAB PO SCH ×3 (08:10→17:45)
[2019-05-30] MEDS: ASPIRIN 81 MG ECTAB PO SCH (08:11)
[2019-05-30] MEDS: MAGNESIUM OXIDE 400 MG TAB PO SCH (08:11)
[2019-05-30] MEDS: POTASSIUM CHLORIDE 20 MEQ TABCR PO SCH (08:11)
[2019-05-30] MEDS: PANTOprazole 40 MG TAB PO SCH (08:12)
[2019-05-30] MEDS: OMEGA-3 (PURIFIED FISH OIL) 1 GM CAP PO SCH (08:12)
[2019-05-30] MEDS: MULTIVITAMIN TAB PO SCH (08:12)
[2019-05-30] MEDS: SENNA 8.6 MG TAB PO SCH (08:12)
[2019-05-30] MEDS: CETIRIZINE HCL 10 MG TABLET PO SCH (08:13)
[2019-05-30] MEDS: CHOLECALCIFEROL 1,000 UNITS TAB PO SCH (08:13)
[2019-05-30] MEDS: NITROGLYCERIN 0.4 MG/HR PATCH TD SCH (08:14)
[2019-05-30] MEDS: OXYCODONE HCL IR 5 MG TAB (IMMEDIATE RELEASE) PO PRN ×2 (08:17→15:01)
[2019-05-30] MEDS: INSULIN ASPART 100 UNITS/ML 3 ML PEN SC SCH ×2 (08:19→12:52)
[2019-05-30] MEDS ORDERED: MAGNESIUM HYDROXIDE SUSP 30 ML UDC PO SCH (09:00)
--- NOTE | 2019-05-30 09:55 | Orthopedic Progress Note ---
Date of Service May 30, 2019 Assessment & Plan (1) History of total right hip replacement: 74 yo female stable POD #3 s/p right ZACK, pt unable to move bowels, may need gen surg consult for h/o rectal rolapse 1. Med management- H/H improved s/p transfusion 2. DVT prophylaxis- ASA, SCDs 3. PT/OT 4. D/C planning- home w/ HH Subjective Pt resting in bed, pain controlled, denies c/o right hip, pt concerned she has not moved bowels, given suppository earlier in AM Physical Exam Physical Exam: Prevena dressing in place, toes mobile, NVI, calves soft, NT Results & Data Vital Signs (Past 12 Hours) Vital Signs Temp Pulse Resp BP Pulse Ox 05/30/19 06:31 37.0 C 63 16 129/76 97 05/29/19 23:10 37.1 C 80 16 147/70 H 99 Laboratory Results 05/30/19 05/30/19 05/30/19 Range/Units 06:28 04:38 04:38 WBC 11.39 H (4.8-10.8) K/uL RBC 3.02 L (4.2-5.4) M/uL Hgb 8.7 L (12.0-16.0) g/dL Hct 27.1 L (37-47) % MCV 89.7 (80-100) fL MCH 28.8 (25-34) pg MCHC 32.1 (32-36) g/dL RDW Std Deviation 56.5 H (36.4-46.3) fL RDW Coeff of Amrita 17.3 H (11.5-14.5) % Plt Count 233 (130-400) K/uL MPV 9.4 (7.4-10.4) fL Immature Gran % (Auto) 0.5 % Neut % (Auto) 84.8 % Lymph % (Auto) 6.7 % [place] % (Auto) 7.2 % Eos % (Auto) 0.7 % Baso % (Auto) 0.1 % Immature Gran # (Auto) 0.06 H (0.00-0.02) K/uL Neut # (Auto) 9.66 H (1.4-6.5) K/uL Lymph # (Auto) 0.76 L (1.2-3.4) K/uL [place] # (Auto) 0.82 H (0.11-0.59) K/uL Eos # (Auto) 0.08 (0-0.5) K/uL Baso # (Auto) 0.01 (0-0.2) K/uL Sodium 134 L (136-145) mmol/L Potassium 5.1 D (3.5-5.1) mmol/L Chloride 107 (98-107) mmol/L Carbon Dioxide 25 (21-32) mmol/L Anion Gap 2.0 L (3-11) BUN 28 H (7-18) mg/dl Creatinine 2.10 H D (0.6-1.2) mg/dl Est Cr Clr Drug Dosing 29.6 ml/min Est GFR ( Amer) 26.4 Est GFR (Non-Af Amer) 22.8 BUN/Creatinine Ratio 13.5 (10-20) Glucose 167 H (70-99) mg/dl POC Glucose 145 H (70-99) Calcium 8.3 L (8.5-10.1) mg/dl Blood Type Antibody Screen Crossmatch 05/29/19 05/29/19 05/29/19 Range/Units 20:28 17:06 12:05 WBC (4.8-10.8) K/uL RBC (4.2-5.4) M/uL Hgb (12.0-16.0) g/dL Hct (37-47) % MCV (80-100) fL MCH (25-34) pg MCHC (32-36) g/dL RDW Std Deviation (36.4-46.3) fL RDW Coeff of Amrita (11.5-14.5) % Plt Count (130-400) K/uL MPV (7.4-10.4) fL Immature Gran % (Auto) % Neut % (Auto) % Lymph % (Auto) % [place] % (Auto) % Eos % (Auto) % Baso % (Auto) % Immature Gran # (Auto) (0.00-0.02) K/uL Neut # (Auto) (1.4-6.5) K/uL Lymph # (Auto) (1.2-3.4) K/uL [place] # (Auto) (0.11-0.59) K/uL Eos # (Auto) (0-0.5) K/uL Baso # (Auto) (0-0.2) K/uL Sodium (136-145) mmol/L Potassium (3.5-5.1) mmol/L Chloride (98-107) mmol/L Carbon Dioxide (21-32) mmol/L Anion Gap (3-11) BUN (7-18) mg/dl Creatinine (0.6-1.2) mg/dl Est Cr Clr Drug Dosing ml/min Est GFR ( Amer) Est GFR (Non-Af Amer) BUN/Creatinine Ratio (10-20) Glucose (70-99) mg/dl POC Glucose 153 H 134 H 131 H (70-99) Calcium (8.5-10.1) mg/dl Blood Type Antibody Screen Crossmatch 05/27/19 Range/Units 05:55 WBC (4.8-10.8) K/uL RBC (4.2-5.4) M/uL Hgb (12.0-16.0) g/dL Hct (37-47) % MCV (80-100) fL MCH (25-34) pg MCHC (32-36) g/dL RDW Std Deviation (36.4-46.3) fL RDW Coeff of Amrita (11.5-14.5) % Plt Count (130-400) K/uL MPV (7.4-10.4) fL Immature Gran % (Auto) % Neut % (Auto) % Lymph % (Auto) % [place] % (Auto) % Eos % (Auto) % Baso % (Auto) % Immature Gran # (Auto) (0.00-0.02) K/uL Neut # (Auto) (1.4-6.5) K/uL Lymph # (Auto) (1.2-3.4) K/uL [place] # (Auto) (0.11-0.59) K/uL Eos # (Auto) (0-0.5) K/uL Baso # (Auto) (0-0.2) K/uL Sodium (136-145) mmol/L Potassium (3.5-5.1) mmol/L Chloride (98-107) mmol/L Carbon Dioxide (21-32) mmol/L Anion Gap (3-11) BUN (7-18) mg/dl Creatinine (0.6-1.2) mg/dl Est Cr Clr Drug Dosing ml/min Est GFR ( Amer) Est GFR (Non-Af Amer) BUN/Creatinine Ratio (10-20) Glucose (70-99) mg/dl POC Glucose (70-99) Calcium (8.5-10.1) mg/dl Blood Type O Negative Antibody Screen NEGATIVE Crossmatch See Detail
[2019-05-30] MEDS ORDERED: SOD PHOSPHATE/SOD BIPHOSPHATE ENEMA 132 ML BTL PR STA (12:30)
--- NOTE | 2019-05-30 17:50 | Hospitalist Progress Note ---
Date of Service May 30, 2019 Assessment & Plan (1) Anemia: Likely related to OR status, however did continue to drop on POD #3 s/p 2 units PRBC on 05/29 Hb on discharge is up to 8.7 (7.1 on 05/29) and pt is feeling better Hemoccult neg Pt takes aspirin 81mg QD at baseline, and this has been increased to BID for post-op DVT proph, monitor Repeat CBC on 06/02 (2) Rectal abnormality: Prolapsed rectum vs hemorrhoid in the setting of post-op status causing constipation Increase bowel regimen to MOM/senna scheduled, enema has helped Advised pt to not strain If recurrence or becomes painful, t/c gen surg c/s (3) History of total hip arthroplasty: s/p OR on 05/[address] Gonzales -Pain, nausea and bowel regimen per primary team -Activity instruction per primary team -Patient to continue ASA 81mg po BID x 4 weeks for DVT prophylaxis (4) Osteoarthritis of right hip: s/p ZACK as above (5) Essential hypertension: Blood pressure stable, continue home meds (6) GERD (gastroesophageal reflux disease): Chronic. Stable -Continue Protonix (7) CKD (chronic kidney disease), stage IV: Elevated cr to 3.0 on 1.5, however now back to 2.1 on d/c Baseline is 2.3-2.5 (8) Hypothyroidism: Chronic. Patient has had elevated TSH in the past. -Continue Synthroid at home dose (9) Depression: Chronic. Stable -Continue Duloxetine (10) Vitamin D deficiency: Chronic. Stable -Continue Vitamin D supplementation (11) Psoriasis: Chronic. Well controlled. Patient is presently on Prednisone 5mg po daily. Attempt to wean in the past have been unsuccessful. -Continue Prednisone 5mg po daily -Continue triamcinolone and tacrolimus topical (12) Type II diabetes mellitus: Diet controlled. BS now = 168 -A1c 6.8 -ISS while inpatient -Patient may be discharged home and instructed to continue dietary modification to control her diabetes Subjective Pt is feeling much better today s/p PRBC transfusion. She has no further lightheadedness or SOB with ambulation. Tolerating PO without issue. Had an enema today and a much better bowel movement. No blood noted. Pt denies fever, chest pain, n/v, LE pain or swelling. Still with slight R lateral lower quadrant abd pain when passing gas, but this is better. Review of Systems Review of Systems: Pertinent positives and negatives reviewed in HPI--all others negative Physical Exam Constitutional: WD/WN, vitals as above Eyes: normal visual osman by confrontation and + anicteric sclerae Neck: normal visual inspection and trachea midline Respiratory: normal respiratory effort, lungs clear to auscultation Cardiovascular: Rate/Rhythm: regular rate and regular rhythm Gastrointestinal (Abdomen): Inspection/Auscultation: abdomen not distended Percussion/Palpation: abdomen soft; abdomen nontender Musculoskeletal: Head/Neck/Chest: normocephalic and head atraumatic Skin: no rashes, warm and dry Neurologic: awake; not confused Speech / Cognition: normal speech Psychiatric: A+Ox3, euthymic affect Results & Data Vital Signs (Past 12 Hours) Vital Signs Temp Pulse Resp BP Pulse Ox 05/30/19 16:22 36.8 C 80 18 150/78 H 98 05/30/19 15:56 36.8 C 80 18 150/78 H 98 05/30/19 06:31 37.0 C 63 16 129/76 97 PG Care Time/CCT Total # of Minutes Spent Total Time Spent with Patient: Total time spent is greater than 50% in coordination of care (as documented) at patient's floor/unit and/or counseling patient: (1) History of total hip arthroplasty Laterality: right Qualified Code(s): Z96.641 - Presence of right artificial hip joint (2) GERD (gastroesophageal reflux disease) Esophagitis presence: esophagitis presence not specified Qualified Code(s): K21.9 - Gastro-esophageal reflux disease without esophagitis (3) Hypothyroidism Hypothyroidism type: unspecified Qualified Code(s): E03.9 - Hypothyroidism, unspecified (4) Type II diabetes mellitus 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 half-way insulin use: without intermediate project manager use 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 complication status: with kidney complications 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 complication detail: with chronic kidney disease Chronic kidney disease stage: stage 4 (severe) Qualified Code(s): E11.22 - Type 2 diabetes mellitus with diabetic chronic kidney disease; N18.4 - Chronic kidney disease, stage 4 (severe)
== END 2019-05-30 17:40 | disposition home health service (06) | DRG 470 ==
LOC: ASU 05:30 → 3E 12:29

== ENCOUNTER 2020-01-06 07:10 | Inpatient (IN) ==
--- NOTE | 2019-12-05 16:44 | PAT Medication Instructions ---
Medication Instructions Date of Service December 05, 2019 Home Medications Medication Instructions Recorded prednisone 5 mg tablet 5 mg PO HS #90 tab 12/27/18 blood-glucose meter #1 ea 02/22/19 lancets #50 ea 02/22/19 nebulizers #1 ea 03/31/19 Accu-Chek Guide test strips #100 ea NS 08/11/19 pantoprazole 40 mg tablet,delayed 40 mg PO BID #60 tab 08/24/19 release nitroglycerin 0.4 mg/hr 1 patch TRANSDERMAL DAILY #30 ea 11/17/19 transdermal 24 hour patch cholecalciferol (vitamin D3) [Vitamin D3] 1,000 unit PO QAM magnesium oxide 400 mg PO BID omega 4-[id number]-fish oil [Fish Oil] 1,000 mg PO BID azelastine 137 mcg (0.1 %) nasal spray aerosol 2 spray INTRANASAL DAILY PRN prednisone 5 mg tablet 5 mg PO HS nifedipine 90 mg PO HS cetirizine [Zyrtec] 5 mg PO BID levalbuterol HCl [Xopenex] 0.63 mg INHALATION Q4H PRN levothyroxine [Synthroid] 100 mcg PO QAM potassium chloride [K-Tab] 20 meq PO BID spironolactone [Aldactone] 25 mg PO BID pantoprazole 40 mg tablet,delayed release 40 mg PO BID nitroglycerin 0.4 mg/hr transdermal 24 hour patch 1 patch TRANSDERMAL DAILY betamethasone valerate 1 applic TOPICAL UD PRN dicyclomine 20 mg PO TID PRN duloxetine [Cymbalta] 60 mg PO QAM Continue as directed nitroglycerin 0.4 mg/hr transdermal 24 hour patch 1 patch TRANSDERMAL DAILY (do not place near surgical site) STOP taking 2 weeks before surgery If surgery is within 2 weeks, stop taking as soon as possible. omega 4-[id number]-[id number]-fish oil [Fish Oil] 1,000 mg PO BID STOP taking 24 hours before surgery betamethasone valerate 1 applic TOPICAL UD PRN DO NOT take the morning of surgery cholecalciferol (vitamin D3) [Vitamin D3] 1,000 unit PO QAM magnesium oxide 400 mg PO BID cetirizine [Zyrtec] 5 mg PO BID potassium chloride [K-Tab] 20 meq PO BID spironolactone [Aldactone] 25 mg PO BID dicyclomine 20 mg PO TID PRN Take morning of surgery With a small sip of water, OTHERWISE NOTHING TO EAT OR DRINK AFTER MIDNIGHT: azelastine 137 mcg (0.1 %) nasal spray aerosol 2 spray INTRANASAL DAILY PRN (if needed) levalbuterol HCl [Xopenex] 0.63 mg INHALATION Q4H PRN (if needed) levothyroxine [Synthroid] 100 mcg PO QAM pantoprazole 40 mg tablet,delayed release 40 mg PO BID duloxetine [Cymbalta] 60 mg PO QAM Take evening before surgery cholecalciferol (vitamin D3) [Vitamin D3] 1,000 unit PO QAM magnesium oxide 400 mg PO BID azelastine 137 mcg (0.1 %) nasal spray aerosol 2 spray INTRANASAL DAILY PRN (if needed) prednisone 5 mg tablet 5 mg PO HS nifedipine 90 mg PO HS cetirizine [Zyrtec] 5 mg PO BID levalbuterol HCl [Xopenex] 0.63 mg INHALATION Q4H PRN (if needed) potassium chloride [K-Tab] 20 meq PO BID spironolactone [Aldactone] 25 mg PO BID pantoprazole 40 mg tablet,delayed release 40 mg PO BID dicyclomine 20 mg PO TID PRN (if needed) Other Notes If you have any questions please call us at [phone] or [phone] or [phone] or [phone]
--- NOTE | 2019-12-06 10:39 | Anesthesiology Consultation ---
Date of Service December 06, 2019 Assessment & Plan (1) Encounter for pre-operative examination: COVID Status: As of 12/05 assessment, patient denies travel to endemic area, known exposure/sick contacts, or symptoms of COVID19. Patient instructed to follow strict social distancing guidelines, wear a mask in public and avoid travel for 14 days prior to surgery. Preoperative COVID19 testing to be completed prior to surgery. Patient made aware to self-isolate as much as possible between COVID testing and surgery. Pt to see [facility] on 01/01 re: spinal meningioma (Dr. Ken). Will obtain note when done. Chart Review Chart Review: Acceptable Risk for Surgery (pending surgeon-ordered PCP Clearance 12/11) and Patient seen in Pre Admission Testing Teaching & Discussion Instructed NPO after midnight before surgery, except medications with 15 cc of water. Medication instructions provided according to the PAT guidelines. History Surgery Operation Date: 01/06/20 10:20 Proposed Procedures p Left Total Hip Arthroplasty - Kimani Gonzales, Height/Weight Height: 5 ft 11 in Weight: 97.3 kg Allergies Allergy/AdvReac Type Severity Reaction Status Date / Time codeine Allergy Severe Anaphylaxis Verified 11/30/19 08:31 Diclopak Allergy Intermediate CREATINE Verified 04/06/17 09:34 ELEVATION celecoxib [From Celebrex] Allergy Unknown RASH Verified 11/30/19 08:31 cephalexin [From Keflex] Allergy Unknown Rash Verified 11/30/19 08:31 hydrocodone Allergy Unknown Rash Verified 11/30/19 08:31 Iodinated Contrast Media Allergy Unknown RASH Verified 11/30/19 08:31 nickel Allergy Unknown Rash Verified 11/30/19 08:31 oxycodone Allergy Unknown Rash Verified 11/30/19 08:31 Sulfa (Sulfonamide Allergy Unknown RASH TO Verified 11/30/19 08:31 Antibiotics) SULFA DRUGS tetracycline Allergy Unknown RASH Verified 11/30/19 08:31 capsaicin AdvReac Unknown CREATINE Verified 11/30/19 08:31 ELEVATION diclofenac AdvReac Unknown CREATINE Verified 11/30/19 08:31 ELEVATION propylene glycol AdvReac Unknown CREATINE Verified 11/30/19 08:31 ELEVATION "PREP WITH BLUE DYE" Allergy Unknown Rash Uncoded 11/30/19 08:55 Medications Home Medications Medication Instructions Recorded Confirmed Last Taken cholecalciferol (vitamin D3) 1,000 unit PO QAM 07/26/18 11/30/19 08/21/19 [Vitamin D3] magnesium oxide 400 mg PO BID 07/26/18 11/30/19 08/21/19 omega 1-ikc-wss-fish oil [Fish Oil] 1,000 mg PO BID 07/26/18 11/30/19 08/21/19 azelastine 137 mcg (0.1 %) nasal 2 spray INTRANASAL DAILY PRN ml 11/23/18 11/30/19 Unknown spray aerosol prednisone 5 mg tablet 5 mg PO HS #90 tab 12/27/18 11/30/19 08/21/19 blood-glucose meter #1 ea 02/22/19 11/17/19 Unknown lancets #50 ea 02/22/19 11/17/19 Unknown nebulizers #1 ea 03/31/19 11/17/19 Unknown nifedipine 90 mg PO HS 05/02/19 11/30/19 08/21/19 Accu-Chek Guide test strips #100 ea NS 08/11/19 11/17/19 Unknown cetirizine [Zyrtec] 5 mg PO BID 08/22/19 11/30/19 08/21/19 levalbuterol HCl [Xopenex] 0.63 mg INHALATION Q4H PRN 08/22/19 11/30/19 Unknown levothyroxine [Synthroid] 100 mcg PO QAM 08/22/19 11/30/19 08/22/19 potassium chloride [K-Tab] 20 meq PO BID 08/22/19 11/30/19 08/21/19 spironolactone [Aldactone] 25 mg PO BID 08/22/19 11/30/19 08/21/19 pantoprazole 40 mg tablet,delayed 40 mg PO BID #60 tab 08/24/19 11/30/19 Unknown release nitroglycerin 0.4 mg/hr 1 patch TRANSDERMAL DAILY #30 ea 11/17/19 11/30/19 Unknown transdermal 24 hour patch betamethasone valerate 1 applic TOPICAL UD PRN 11/30/19 11/30/19 Unknown dicyclomine 20 mg PO TID PRN 11/30/19 11/30/19 Unknown duloxetine [Cymbalta] 60 mg PO QAM 11/30/19 11/30/19 Unknown Past Medical History Medical History (Updated 12/06/19 @ 10:34 by Bronson Davis) Chronic steroid use FOR PSORITRIC ARTHRITIS CKD (chronic kidney disease) stage 4, GFR 15-29 ml/min baseline creatinine 2.0-2.2 range; nephrology (Dr. Stevenson) monitoring Esophageal dysmotility Esophageal spasm Gastric polyp GERD (gastroesophageal reflux disease) CONTROLLED WITH MEDS Hearing loss, right DEAF RIGHT EAR Hiatal hernia HTN (hypertension) Hyperlipidemia Hypothyroidism Irritable bowel syndrome Obesity Peptic ulcer disease Polyneuropathy Psoriatic arthropathy Restless leg syndrome Schatzki's ring (Inactive) Seasonal allergies Sometimes gets bronchitis, uses nebulizer for this and allergies Spinal meningioma On c-spine- follows with [facility] neurosurgery specialist (Dr. Ken)- under surveillance/stable/no indication for surgical intervention Tinnitus of right ear Type II diabetes mellitus (Chronic) diet controlled Varicose veins of legs Exercise / Class Metabolic Activity II 4-5 Yardwork/Stairs/Walk up hill (Denies CP or SOB with 1 FOS, limited only by hip pain) Past Surgical History Surgical History (Updated 12/07/19 @ 11:56 by Bronson Davis) H/O thyroidectomy History of arthroscopy RT/LEFT KNEE History of arthroscopy of right shoulder History of cardiac cath X2; 10+ YEARS AGO (NO STENTS) History of cataract extraction RT/LEFT History of cholecystectomy History of colonoscopy History of dilatation and curettage History of esophagogastroduodenoscopy (EGD) History of foot surgery RT FOOT FUSION History of lumbar fusion History of tonsillectomy and adenoidectomy History of tooth extraction History of total abdominal hysterectomy and bilateral salpingo-oophorectomy History of total hip arthroplasty RIGHT 05/27/19. Complicated by post-op seroma requiring multiple needle aspirations. History of total knee arthroplasty RIGHT Schatzki's ring HX S/P EGD WITH DILATION (2017) Status post total replacement of left shoulder hx of Past Anesthesia History No Hx of Anesthesia Complications and No Family Hx of Anesthesia Complications History of PONV No Hx of Motion Sickness and History of PONV (only as a child) Social History tobacco type: cigarettes Smoking cigarettes per day: QUIT AGE 26 Do You Dip or Chew Tobacco: No Hx Alcohol Use: No (very very rare) Alcohol type: other alcohol intake frequency: holidays/special occasions only Hx Substance Use: No substance use type: does not use Review of Systems Pt denies any recent shortness of breath, palpitations, cough, fever or URI. Occ chest pain/L neck/arm pressure, has been evaluated many times and ruled non- cardiac, due to esophageal spasm/GERD. Physical Exam Vital Signs BP: 124//85 P: 73bpm SPO2: 97% RA T: 98.7 F R: 16 ENMT Mouth: + chipped teeth and + macroglossia; no dentures Thyromental Distance: > or= 3.5 Finger Breadths (4) Mallampati Class: I Neck normal visual inspection and + limited neck extension Respiratory normal respiratory effort Auscultation: lungs clear to auscultation bilaterally Cardiovascular Rate/Rhythm: regular rate (borderline tachy) and regular rhythm Heart Sounds: no murmur Extremities: no edema (wearing compression stockings) Testing Laboratory Results 12/06/19 10:48 12/06/19 10:48 PT 10.3 Seconds (9.0-12.0) 12/06/19 10:48 INR 1.0 (0.9-1.1) 12/06/19 10:48 APTT 23.9 Seconds (21.0-31.0) 12/06/19 10:48 Hemoglobin A1c 6.7 % (4.5-5.6) H 12/06/19 10:48 Urine Color Yellow 12/06/19 Unknown Urine Appearance Clear (Clear) 12/06/19 Unknown Urine pH 6.5 (4.5-7.5) 12/06/19 Unknown Ur Specific [place] 1.018 (1.000-1.030) 12/06/19 Unknown Urine Protein Negative (Negative) 12/06/19 Unknown Urine Glucose (UA) Negative (Negative) 12/06/19 Unknown Urine Ketones Negative (Negative) 12/06/19 Unknown Urine Nitrite Negative (Negative) 12/06/19 Unknown Ur Leukocyte Esterase Negative (Negative) 12/06/19 Unknown Blood Type O Negative 12/06/19 10:48 Antibody Screen NEGATIVE 12/06/19 10:48 12/06/19 Unknown Urine Culture - Preliminary Urine,Clean Catch Pin-point growth present, reincubating. Anemia appears to be at baseline (~10-11). Cr appears better than baseline. Electrocardiogram Date: 08/22/19 Findings: + SB @ (57bpm) Voltage criteria for LVH. Chest X-Ray Date: 08/22/19 Findings may suggest mild emphysema or other obstructive lung disease. No focal infiltrate to suggest pneumonia. Echocardiogram Date: 07/27/18 EF: 6-65% LV systolic function is normal. No regional wall motion normalities noted. There is mild concentric LVH. Grade 1 diastolic dysfunction. No significant change compared to 06/04/2017. Stress Test Date: 06/03/17 Resting EF: 65-70% Negative DSE for ischemia at 89% MPHR. Hypertensive blood pressure response. No arrhythmia. No chest pain reported. Technically difficult study, enhanced with IV Definity.
[2019-12-06 11:09] LABS: Basophils # (auto) 0.03 K/uL (0-0.2); Basophils % (auto) 0.5 %; Eosinophils # (auto) 0.07 K/uL (0-0.5); Eosinophils % (auto) 1.2 %; Hematocrit (blood only) 34.2 % (37-47); Hemoglobin 10.7 g/dL (12.0-16.0); Immature Granulocytes # (auto) 0.01 K/uL (0.00-0.02); Immature Granulocytes % (auto) 0.2 %; Lymphocytes # (auto) 1.41 K/uL (1.2-3.4); Lymphocytes % (auto) 23.3 %; Mean Corpuscular Hemoglobin 25.3 pg (25-34); Mean Corpuscular Hgb Conc 31.3 g/dL (32-36); Mean Corpuscular Volume 80.9 fL (80-100); Mean Platelet Volume 10.6 fL (7.4-10.4); Monocytes # (auto) 0.34 K/uL (0.11-0.59); Monocytes % (auto) 5.6 %; Neutrophils # (auto) 4.19 K/uL (1.4-6.5); Neutrophils % (auto) 69.2 %; Platelet Count 368 K/uL (130-400); RDW Coefficient of Variation 19.4 % (11.5-14.5); RDW Standard Deviation 56.8 fL (36.4-46.3); Red Blood Count 4.23 M/uL (4.2-5.4); White Blood Count 6.05 K/uL (4.8-10.8)
[2019-12-06 11:09] LABS: Appearance Urine Clear (Clear); Bilirubin Urine Negative (Negative); Blood Urine Negative (Negative); Color Urine Yellow; Glucose Urine UA Negative (Negative); Ketones Urine Negative (Negative); Leukocyte Esterase Urine Negative (Negative); Nitrite Urine Negative (Negative); Protein Urine Negative (Negative); Specific Gravity Urine 1.018 (1.000-1.030); Urobilinogen Urine Negative (Negative); pH Urine 6.5 (4.5-7.5)
[2019-12-06 11:21] LABS: Partial Thromboplastin Ratio 0.9; Partial Thromboplastin Time 23.9 Seconds (21.0-31.0); Prothrombin Time 10.3 Seconds (9.0-12.0)
[2019-12-06 11:51] LABS: Estimated Average Glucose 146 mg/dl; Hemoglobin A1C 6.7 % (4.5-5.6)
[2019-12-06 12:21] LABS: Albumin Level 3.2 gm/dl (3.4-5.0); BUN Creatinine Ratio 16.1 (10-20); Calcium 9.3 mg/dl (8.5-10.1); Creatinine Clr Calc Pharmacy 36.6 ml/min; Est GFR (African American) 32.7; Est GFR (Non-African American) 28.2; Potassium 4.2 mmol/L (3.5-5.1)
--- NOTE | 2020-01-05 16:55 | History & Physical Report ---
Date of Service January 05, 2020 Assessment & Plan (1) Osteoarthritis of left hip: Schedule a left ZACK for 01.06.2020. All potential risks, benefits, complications, alternatives, and rehab have been discussed with the patient and she wishes to proceed. Plan for home with home health upon d/c with ASA 81 mg BID x 4 wks for DVT prophylaxis. History of Present Illness Chief Complaint: left hip pain Primary Care Provider: Shelton Melendez MD This is a patient with chronic left hip pain that has been treated conservatively for DJD of the left hip. She has failed all conservative managements. She recently had a right hip ZACK and has been doing well. She is now being set up for a left ZACK. Allergies Allergy/AdvReac Type Severity Reaction Status Date / Time codeine Allergy Severe Anaphylaxis Verified 12/28/19 08:50 Diclopak Allergy Intermediate CREATINE Verified 04/06/17 09:34 ELEVATION celecoxib [From Celebrex] Allergy Unknown RASH Verified 12/28/19 08:50 cephalexin [From Keflex] Allergy Unknown Rash Verified 12/28/19 08:50 hydrocodone Allergy Unknown Rash Verified 12/28/19 08:50 Iodinated Contrast Media Allergy Unknown RASH Verified 12/28/19 08:50 nickel Allergy Unknown Rash Verified 12/28/19 08:50 oxycodone Allergy Unknown Rash Verified 12/28/19 08:50 Sulfa (Sulfonamide Allergy Unknown RASH TO Verified 12/28/19 08:50 Antibiotics) SULFA DRUGS tetracycline Allergy Unknown RASH Verified 12/28/19 08:50 capsaicin AdvReac Unknown CREATINE Verified 12/28/19 08:51 ELEVATION diclofenac AdvReac Unknown CREATINE Verified 12/28/19 08:51 ELEVATION propylene glycol AdvReac Unknown CREATINE Verified 12/28/19 08:51 ELEVATION "PREP WITH BLUE DYE" Allergy Unknown Rash Uncoded 12/28/19 08:51 Home Medications Home Medications Medication Instructions Recorded Confirmed Type cholecalciferol (vitamin D3) 1,000 unit PO QAM 07/26/18 12/28/19 History [Vitamin D3] magnesium oxide 400 mg PO BID 07/26/18 12/28/19 History omega 9-dhr-iwi-fish oil [Fish Oil] 1,000 mg PO BID 07/26/18 12/28/19 History azelastine 137 mcg (0.1 %) nasal 2 spray INTRANASAL DAILY PRN ml 11/23/18 12/28/19 History spray aerosol prednisone 5 mg tablet 5 mg PO HS #90 tab 12/27/18 12/28/19 Rx blood-glucose meter #1 ea 02/22/19 12/12/19 Rx lancets #50 ea 02/22/19 12/12/19 Rx nebulizers #1 ea 03/31/19 12/12/19 Rx nifedipine 90 mg PO HS 05/02/19 12/28/19 History Accu-Chek Guide test strips #100 ea NS 08/11/19 12/12/19 Rx cetirizine [Zyrtec] 5 mg PO BID 08/22/19 12/28/19 History levalbuterol HCl [Xopenex] 0.63 mg INHALATION Q4H PRN 08/22/19 12/28/19 History levothyroxine [Synthroid] 100 mcg PO QAM 08/22/19 12/28/19 History spironolactone [Aldactone] 25 mg PO BID 08/22/19 12/28/19 History pantoprazole 40 mg tablet,delayed 40 mg PO BID #60 tab 08/24/19 12/28/19 Rx release nitroglycerin 0.4 mg/hr 1 patch TRANSDERMAL DAILY #30 ea 11/17/19 12/28/19 Rx transdermal 24 hour patch betamethasone valerate 1 applic TOPICAL UD PRN 11/30/19 12/28/19 History dicyclomine 20 mg PO TID PRN 11/30/19 12/28/19 History duloxetine [Cymbalta] 60 mg PO QAM 11/30/19 12/28/19 History potassium chloride 20 mEq 20 meq PO BID #180 tab 01/02/20 Rx tablet,extended release Past Med/Surg History Medical History (Updated 01/05/20 @ 16:53 by Shravan Maguire PA-C) Chronic steroid use FOR PSORITRIC ARTHRITIS CKD (chronic kidney disease) stage 4, GFR 15-29 ml/min baseline creatinine 2.0-2.2 range; nephrology (Dr. Stevenson) monitoring Esophageal dysmotility Esophageal spasm Gastric polyp GERD (gastroesophageal reflux disease) CONTROLLED WITH MEDS Hearing loss, right DEAF RIGHT EAR Hiatal hernia HTN (hypertension) Hyperlipidemia Hypothyroidism Irritable bowel syndrome Obesity Peptic ulcer disease Polyneuropathy Psoriatic arthropathy Restless leg syndrome Schatzki's ring Seasonal allergies Sometimes gets bronchitis, uses nebulizer for this and allergies Spinal meningioma On c-spine- [place] [facility] [place] (Dr. Ken)- under surveillance/stable/no indication for surgical intervention Tinnitus of right ear Type II diabetes mellitus diet controlled Varicose veins of legs Surgical History H/O thyroidectomy History of arthroscopy RT/LEFT KNEE History of arthroscopy of right shoulder History of cardiac cath X2; 10+ YEARS AGO (NO STENTS) History of cataract extraction RT/LEFT History of cholecystectomy History of colonoscopy History of dilatation and curettage History of esophagogastroduodenoscopy (EGD) History of foot surgery RT FOOT FUSION History of lumbar fusion History of tonsillectomy and adenoidectomy History of tooth extraction History of total abdominal hysterectomy and bilateral salpingo-oophorectomy History of total hip arthroplasty RIGHT 05/27/19. Complicated by post-op seroma requiring multiple needle aspirations. History of total knee arthroplasty RIGHT Schatzki's ring HX S/P EGD WITH DILATION (2017) Status post total replacement of left shoulder hx of Family History Mother Hypertension Arthritis Father Hypertension Lung cancer Family/Other Colon cancer Unknown Hypertension Allergies Breast cancer Brother Cancer Denies family history of Ovarian cancer Prostate cancer Diabetes Myocardial infarction Stroke Social History Smoking Status: Former smoker Cigarettes Per Day: QUIT AGE 26; Second Hand Exposure: No; Hx Alcohol Use: No (very very rare) Hx Substance Use: No Preferred Language: Albanian Communication Ability: Effective Visual Impairment: No Limitations Hearing Ability: Hard of Hearing Vp Client Services Required: No Beliefs That Will Affect Care: None marital status: Current Living Situation: Spouse Current Living Situation Comment: is in snf. 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 Safe at Home: Yes caffeine: Yes Dental Care, Regularly: Yes Physical Activity Frequency: Does not Exercise Physical Activity Frequency Comment: Hip problems Seatbelt Use: always Sunscreen Use: No Physical Exam Constitutional: well developed and well nourished; no acute distress ENMT: external ear and nose normal, oropharynx normal Neck: trachea midline, no thyromegaly Respiratory: normal respiratory effort, lungs clear to auscultation Cardiovascular: Rate/Rhythm: regular rate and regular rhythm Gastrointestinal (Abdomen): normal bowel sounds, soft, nontender, no hepatosplenomegaly Musculoskeletal: Hip: + joint line tenderness (left groin) and + JAYLA test positive (left); no deformity, no skin erythema and no ecchymosis Skin: no rashes, warm and dry Neurologic: normal touch/pain/proprioception Psychiatric: A+Ox3, euthymic affect Speech: normal rate/rhythm/volume of speech Lymphatic: no cervical or axillary lymphadenopathy
[~2020-01-06 07:10] MED LIST changes: +BUPIVACAINE 0.5 % 5 MG/1 ML PF 10ML VIAL ONE; +GABAPENTIN 300 MG CAP PO SCH; -GABAPENTIN 300 MG PO SCH; -ROPIVACAINE 0.5% 5 MG/ML 30 ML VIAL ONE; +ROPIVACAINE 0.5% HCL/PF 150 MG, BUPIVACAINE 0.5% MPF 30 ML, EPINEPHrine 30MG/30ML (OR U... INSTIL SCH; +SODIUM CHLORIDE 0.9% 1000ML IV SCH; +TRANEXAMIC ACID 1,000 MG **IV Intra-op IV SCH
--- NOTE | 2020-01-06 07:46 | History & Physical Bridge Note ---
Date of Service January 06, 2020 History & Physical Bridge Note I have examined the patient, reviewed the History & Physical and in the interval since the performance of the History & Physical I have noted the following changes of clinical significance: no changes noted
[2020-01-06] MEDS ORDERED: MIDAZOLAM HCL 1 MG/ML 2ML VIAL ONE ×3 (08:29→09:47)
--- NOTE | 2020-01-06 09:51 | Cardiology Consultation ---
Date of Consultation January 06, 2020 Assessment & Plan (1) Atrial fibrillation: 2. Preoperative cardiac assessment prior to total hip replacement 3. Type 2 diabetes 4. Psoriatic arthritis on chronic steroids 5. Hypertension 6. Chronic kidney disease, stage IV Patient with newly noted atrial fibrillation this morning on telemetry while awaiting planned total hip replacement. She is completely asymptomatic with atrial fibrillation. Heart rates primarily from the 100s to 120s on monitor. On exam no signs of heart failure. No evidence of new valvular heart disease. We will plan to repeat electrolytes, CBC. Assuming unremarkable do not feel current atrial fibrillation is prohibitive to proceeding with planned surgery. She is near target heart rate of less than 110 at rest. Would start low-dose beta-ankit, metoprolol 12.5 preoperatively. Postoperatively we will check an echocardiogram, repeat thyroid studies and titrate beta-ankit as necessary. She is at elevated risk for cardioembolic events and recommend anticoagulation long-term. With her chronic kidney disease would start Eliquis 2.5 mg twice daily when safe from a surgical standpoint. We will continue to follow patient while in hospital. Thank you for allowing us to participate in the care of this patient. Please contact with any questions. History of Present Illness Attending Physician: Kimani Gonzales, DO History of Present Illness Mrs. Vergara is a very pleasant 74-year-old woman with a history of hypertension, type 2 diabetes, GERD, stage IV chronic kidney disease, hypothyroidism, peptic ulcer disease, psoriatic arthropathy on chronic steroids, cervical stenosis/osteoarthritis post multiple orthopedic procedures and joint replacements here today for left total hip replacement with Dr. Gonzales. Patient feeling well today. Denies any chest pain, palpitations or new shortness of breath. When placed on monitor was noted to be in atrial fibrillation with heart rates up to the 110-120s. Patient denies any prior history of atrial fibrillation. ECG and preop showed atrial fibrillation with ventricular rate of 112, evidence of LVH but no significant ST normalities. Prior ECG 07/2019sinus rhythm, LVH, no significant ST abnormality Dobutamine stress echo 05/2017- for ischemia at 89% MPHR, resting EF 65 to 70%, mild LVH, grade 1 diastolic dysfunction, aortic valve sclerosis without stenosis Allergies Allergy/AdvReac Type Severity Reaction Status Date / Time codeine Allergy Severe Anaphylaxis Verified 01/06/20 07:46 Diclopak Allergy Intermediate CREATINE Verified 04/06/17 09:34 ELEVATION celecoxib [From Celebrex] Allergy Unknown RASH Verified 01/06/20 07:46 cephalexin [From Keflex] Allergy Unknown Rash Verified 01/06/20 07:46 hydrocodone Allergy Unknown Rash Verified 01/06/20 07:46 Iodinated Contrast Media Allergy Unknown RASH Verified 01/06/20 07:46 nickel Allergy Unknown Rash Verified 01/06/20 07:46 oxycodone Allergy Unknown Rash Verified 01/06/20 07:46 Sulfa (Sulfonamide Allergy Unknown RASH TO Verified 01/06/20 07:46 Antibiotics) SULFA DRUGS tetracycline Allergy Unknown RASH Verified 01/06/20 07:46 capsaicin AdvReac Unknown CREATINE Verified 01/06/20 07:46 ELEVATION diclofenac AdvReac Unknown CREATINE Verified 01/06/20 07:46 ELEVATION propylene glycol AdvReac Unknown CREATINE Verified 01/06/20 07:46 ELEVATION "PREP WITH BLUE DYE" Allergy Unknown Rash Uncoded 01/06/20 07:46 Home Medications Home Medications Medication Instructions Recorded Confirmed Type cholecalciferol (vitamin D3) 1,000 unit PO QAM 07/26/18 01/06/20 History [Vitamin D3] magnesium oxide 400 mg PO BID 07/26/18 01/06/20 History omega 4-vts-qel-fish oil [Fish Oil] 1,000 mg PO BID 07/26/18 01/06/20 History azelastine 137 mcg (0.1 %) nasal 2 spray INTRANASAL DAILY PRN ml 11/23/18 01/06/20 History spray aerosol prednisone 5 mg tablet 5 mg PO HS #90 tab 12/27/18 01/06/20 Rx blood-glucose meter #1 ea 02/22/19 12/12/19 Rx lancets #50 ea 02/22/19 12/12/19 Rx nebulizers #1 ea 03/31/19 12/12/19 Rx nifedipine 90 mg PO HS 05/02/19 01/06/20 History Accu-Chek Guide test strips #100 ea NS 08/11/19 12/12/19 Rx cetirizine [Zyrtec] 5 mg PO BID 08/22/19 01/06/20 History levalbuterol HCl [Xopenex] 0.63 mg INHALATION Q4H PRN 08/22/19 01/06/20 History levothyroxine [Synthroid] 100 mcg PO QAM 08/22/19 01/06/20 History spironolactone [Aldactone] 25 mg PO BID 08/22/19 01/06/20 History pantoprazole 40 mg tablet,delayed 40 mg PO BID #60 tab 08/24/19 01/06/20 Rx release nitroglycerin 0.4 mg/hr 1 patch TRANSDERMAL DAILY #30 ea 11/17/19 01/06/20 Rx transdermal 24 hour patch betamethasone valerate 1 applic TOPICAL UD PRN 11/30/19 01/06/20 History dicyclomine 20 mg PO TID PRN 11/30/19 01/06/20 History duloxetine [Cymbalta] 60 mg PO QAM 11/30/19 01/06/20 History potassium chloride 20 mEq 20 meq PO BID #180 tab 01/02/20 01/06/20 Rx tablet,extended release Patient History Medical History (Updated 01/06/20 @ 09:57 by Pato Vergara MD) Chronic steroid use FOR PSORITRIC ARTHRITIS CKD (chronic kidney disease) stage 4, GFR 15-29 ml/min baseline creatinine 2.0-2.2 range; nephrology (Dr. Stevenson) monitoring Esophageal dysmotility Esophageal spasm Gastric polyp GERD (gastroesophageal reflux disease) CONTROLLED WITH MEDS Hearing loss, right DEAF RIGHT EAR Hiatal hernia HTN (hypertension) Hyperlipidemia Hypothyroidism Irritable bowel syndrome Obesity Peptic ulcer disease Polyneuropathy Psoriatic arthropathy Restless leg syndrome Schatzki's ring Seasonal allergies Sometimes gets bronchitis, uses nebulizer for this and allergies Spinal meningioma On c-spine- follows with [facility] [place] (Dr. Ken)- under surveillance/stable/no indication for surgical intervention Tinnitus of right ear Type II diabetes mellitus diet controlled Varicose veins of legs Surgical History H/O thyroidectomy History of arthroscopy RT/LEFT KNEE History of arthroscopy of right shoulder History of cardiac cath X2; 10+ YEARS AGO (NO STENTS) History of cataract extraction RT/LEFT History of cholecystectomy History of colonoscopy History of dilatation and curettage History of esophagogastroduodenoscopy (EGD) History of foot surgery RT FOOT FUSION History of lumbar fusion History of tonsillectomy and adenoidectomy History of tooth extraction History of total abdominal hysterectomy and bilateral salpingo-oophorectomy History of total hip arthroplasty RIGHT 05/27/19. Complicated by post-op seroma requiring multiple needle aspirations. History of total knee arthroplasty RIGHT Schatzki's ring HX S/P EGD WITH DILATION (2017) Status post total replacement of left shoulder hx of Family History Mother Hypertension Arthritis Father Hypertension Lung cancer Family/Other Colon cancer Unknown Hypertension Allergies Breast cancer Brother Cancer Denies family history of Ovarian cancer Prostate cancer Diabetes Myocardial infarction Stroke Social History Smoking Status: Former smoker Cigarettes Per Day: QUIT AGE 26; Second Hand Exposure: No; Do You Dip or Chew Tobacco: No; Hx Alcohol Use: No (very very rare) Hx Substance Use: No Preferred Language: Gibraltarian Communication Ability: Effective Visual Impairment: No Limitations Hearing Ability: Hard of Hearing Internal Grinder Tender Required: No Beliefs That Will Affect Care: None marital status: Current Living Situation: Spouse Current Living Situation Comment: is in [facility]. 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 Other Information That Helps Us Care for You: Yes ( LONGTERM) Feels Safe at Home: Yes caffeine: Yes Dental Care, Regularly: Yes Physical Activity Frequency: Does not Exercise Physical Activity Frequency Comment: Hip problems Seatbelt Use: always Sunscreen Use: No Review of Systems Review of Systems: All systems reviewed & are unremarkable except as noted in HPI & below Physical Exam 2 Physical Exam: General: Comfortable, no acute distress HEENT: Sclerae anicteric, mucous membranes moist Lungs: Clear to auscultation bilaterally, no rhonchi or wheezes Cardiac: Tachycardic, irregular irregular, no murmurs, no JVD Abdomen: Soft, nontender, nondistended, positive bowel sounds. Extremities: Warm, well perfused, no edema. 2+ radial pulses Skin: No rashes or lesions. Neuro: Nonfocal Psych: Alert orient x3, normal affect and mood Results & Data ([facility]) Vital Signs (Past 12 Hours) Vital Signs Temp Pulse Resp BP Pulse Ox 01/06/20 07:56 98.4 F 118 H 18 133/96 97 PG Care Time/CCT Total # of Minutes Spent Total Time Spent with Patient: Total time spent is greater than 50% in coordination of care (as documented) at patient's floor/unit and/or counseling patient: Coding Level of Care Code 63511 Inpt Consult Level 4 Diagnoses Atrial fibrillation I48.91
[2020-01-06 09:59] LABS: Hematocrit (blood only) 32.6 % (37-47); Hemoglobin 10.4 g/dL (12.0-16.0); Mean Corpuscular Hemoglobin 25.9 pg (25-34); Mean Corpuscular Hgb Conc 31.9 g/dL (32-36); Mean Corpuscular Volume 81.1 fL (80-100); Mean Platelet Volume 10.2 fL (7.4-10.4); Platelet Count 333 K/uL (130-400); RDW Coefficient of Variation 18.3 % (11.5-14.5); RDW Standard Deviation 53.9 fL (36.4-46.3); Red Blood Count 4.02 M/uL (4.2-5.4); White Blood Count 6.09 K/uL (4.8-10.8)
[2020-01-06] MEDS ORDERED: METOPROLOL TARTRATE 25 MG TAB PO ONE (10:04)
[2020-01-06 10:15] LABS: BUN Creatinine Ratio 12.9 (10-20); Calcium 9.1 mg/dl (8.5-10.1); Est GFR (African American) 26.7; Magnesium 2.2 mg/dl (1.8-2.4); Potassium 3.5 mmol/L (3.5-5.1)
[2020-01-06] MEDS ORDERED: PHENYLEPHRINE 100MCG/ML 5ML SYR IV PRN (10:19)
[2020-01-06] MEDS ORDERED: ONDANSETRON INJ 2 MG/ML 2 ML VIAL IV PRN ×2 (10:19→16:32)
[2020-01-06] MEDS ORDERED: ATROPINE SULFATE 0.1 MG/ML 10ML SYR IV PRN (10:19)
[2020-01-06] MEDS ORDERED: HYDROmorphone INJ 1 MG/ML SYRINGE IV PRN (10:19)
[2020-01-06] MEDS ORDERED: BACITRACIN INJ 50,000 UNIT VIAL ONE (10:58)
[2020-01-06] MEDS ORDERED: TRANEXAMIC ACID / 0.7% NACL 1000MG/100ML BAG IV ONE (11:25)
[2020-01-06] MEDS ORDERED: PROPOFOL IV EMULSION 10 MG/ML 20 ML VIAL IV ONE ×2 (11:28)
[2020-01-06] MEDS ORDERED: LIDOCAINE HCL 2% 2 ML VIAL/AMP(20MG/ML) INFIL ONE (11:28)
[2020-01-06] MEDS ORDERED: BACITRACIN INJ 50,000 UNIT VIAL IR ONE (13:36)
--- NOTE | 2020-01-06 13:49 | Post Operative Brief Note ---
Immediate Post Op Note v1 Date of Surgery January 06, 2020 Pre & Post Diagnosis Operation Date: 01/06/20 09:20 Pre-Op Diagnosis: Left Hip Osteoarthritis, left hip degenerative joint disease, left hip pain Post-Op Diagnosis: Left Hip Osteoarthritis, left hip degenerative joint disease, left hip pain I identified the patient and participated in the time-out.: Yes Procedure Operation Date: 01/06/20 09:20 Actual Procedures p Left Total Hip Arthroplasty press-fit Jaycob Accolade 2 size #6 V -taper, Bi olox delta ceramic V 40 femoral head 36 mm x +0 mm, Trident X3 10 degree polyethylene 36 mm, Trident Tritanium cluster acetabular shell 54 mm, 6.5 mm low-profile hex screw x2 (Left) - Kimani Gonzales DO Surgeon Kimani Gonzales DO Sales Agent Insurance Shravan Maguire PA-C Estimated Blood Loss 50 Findings Consistent with Post-Op Diagnosis Specimens Bone and tissue left hip Drains Hemovac Drain Anesthesia Type Spinal MAC Complications none Disposition Accompanied Patient To Recovery: No Disposition: Recovery Room Overlapping Procedure I was present for: the critical portions of procedure. I was immediately available: during the entire case.
--- NOTE | 2020-01-06 14:59 | XRay Report ---
AP PELVIS, CROSSTABLE LATERAL LEFT HIP History: Left total hip arthroplasty. Degenerative arthritis. Postop. FINDINGS: The patient is status post a left total hip arthroplasty. The hardware is intact. No fractu re or dislocation. Skin brooke and surgical drains are in place. Evidence for prior right total hip arthroplasty. IMPRESSION: Left total hip arthroplasty. No evidence for hardware complication. ACT 112: Negative or not required by law. Electronically signed by: Juno Pang M.D. 01/06/2020 2:57 PM
--- NOTE | 2020-01-06 15:11 | Operative Report (OR) ---
DATE OF OPERATION: 01/06/2020 PREOPERATIVE DIAGNOSES: 1. Left hip degenerative joint disease. 2. Left hip osteoarthritis. 3. Left hip pain. POSTOPERATIVE DIAGNOSES: 1. Left hip degenerative joint disease. 2. Left hip osteoarthritis. 3. Left hip pain. PROCEDURE: Left total hip arthroplasty using a Western press-fit Accolade II size 6 V taper stem with a Biolox delta ceramic V40 femoral head 36 mm x +0 mm, a Trident X3 10-degree elevated polyethylene 36 mm, Trident Tritanium cluster acetabular shell size 54 mm and two 6.5 mm low profile hex screws. SURGEON: Kimani Gonzales DO. RETORT LOADER: Shravan Maguire PA-C who was present for patient positioning, sterile prep and drape, management of retractors and instruments. He was present through the critical portions of the case including wound closure, application of sterile dressing and transport of the patient to recovery. ANESTHESIA: Spinal, MAC regional with intra-articular local. SPECIMENS: Bone and tissue, left hip. DRAINS: Hemovac x2 and a Prevena drain. COMPLICATIONS: None. BLOOD LOSS: 50 mL. PERTINENT HISTORY: This is a 74-year-old female with chronic progressive and worsening left hip pain and degenerative arthritis related to osteoarthritis. She had attempted and failed conservative management over a period of several years including physician-directed home exercises, formalized physical therapy, anti-inflammatories, rest, modification of activities, observation and use of an assistive device. Radiographs demonstrate end-stage degenerative arthritis, left hip with marginal osteophytes, subchondral sclerosis and subchondral cysts with complete loss of joint space. The patient was scheduled for surgery as indicated. All potential risks, benefits, complications, alternatives, rehab potential for incomplete relief of symptoms, need for further surgery, DVT, PE, , persistent pain, swelling, scarring, weakness, neurovascular injury, wound complications, hardware failure, nonunion, malunion, bone fracture were discussed with the patient. The patient decided to proceed with the procedure as indicated. PROCEDURE: The patient was taken to the Operating Suite and placed supine on the Operating Room table after identification of the consent and identification of the proper operative site the patient was sedated. The patient had previously received a spinal epidural anesthetic. The patient was then placed in the right lateral decubitus position with the affected side up and Stulberg positioning device then used to maintain lateral position of the patient. All bony prominences were properly padded and protected. Axillary roll was placed as standard and the leg lengths were determined to be essentially equal and then the left hip was then sterilely prepped and draped in the usual fashion. 10-blade scalpel incision was made laterally over the greater trochanter. The incision was deepened through the subcutaneous tissue and meticulous hemostasis with electrocautery. Further deepening of the wound through the layer of the fascia was performed with electrocautery and iliotibial band was then incised with electrocautery. Next, Charnley retractor was placed bother anteriorly and posteriorly at the level of the gluteus tendon. Next, electrocautery was used to make an incision in the vastus lateralis and then sweep was made toward the anterior aspect of the patient along the course of the femoral neck and head. Abductor split was then completed with a 15 blade scalpel. The gluteus minimus and capsule were then incised and then soft tissue was dissected anteriorly. Next as the soft tissue was dissected anteriorly the lesser trochanter was clearly identified and hip was dislocated with relative ease. Hypertrophic osteophytes were noted circumferentially. The hip joint was noted to be noticeably tight. Next the sagittal saw was used to resect the proximal portion of the femoral neck and head approximately one fingerbreadth proximal to the lesser trochanter. Head was then removed and next the labrum was excised from the acetabulum with a 20 blade scalpel and long forceps. Next the wound was irrigated with pulsatile lavage and the pulvinar was then excised from the acetabulum. Appropriate retractors were placed anteriorly superiorly and posteriorly. Next initial acetabular reamer was placed 46 mm medialized to the medial wall and then sequential reaming was performed to size 54 mm. Trial cage was then placed and noted to be stable with excellent fit. Next the wound was irrigated with pulsatile lavage with bacitracin additive and 54 mm Jaycob trident tritanium cup was impacted and then two 30 mm screws were used to stabilize the acetabular shell. Next X3 poly 36 mm was impacted into the shell. Lap sponge was placed over to protect it. Next, attention was turned toward the proximal femur. Box osteotome was used to resect proximal portion of bone followed by first pass small reamer. Next, sequential broaching was performed up to size 6 and the 6 trial was placed followed by +0 36 mm trial head. Next, it was reduced and had excellent fit and feel with minimal shuck and excellent stability in all planes and range of motion. Leg lengths were restored and next all trial implants were removed. The wound was copiously irrigated with pulsatile lavage and size 6 Accolade TMZF x 132 degree final stem was impacted. Next, Biolox ceramic 36 mm head +0 neck was impacted. The construct was reduced. Range of motion was performed and noted to be completely stable with excellent range of motion, improved to greater degree than prior to surgery. Two 10 Montenegrin single Hemovac drains were placed exiting anterolaterally. Wound was irrigated with pulsatile lavage. Next a #5 FiberWire suture was used to close the capsule and gluteus minimum via two small bone tunnels made with 2.5 mm drill bit in the greater trochanter. After Tycron closure was completed and noted to be stable then 10 Montenegrin drains were placed followed by closure of the vastus lateralis and the gluteus medius. This was closed with #1 Vicryl sutures. Next, the iliotibial band was closed using interrupted [id number] #1 Vicryl sutures. Next, final irrigation was performed with pulsatile lavage and dermis was closed using buried interrupted 2-0 Vicryl suture. The skin was closed with skin brooke. Sterile compressive dressing was applied. The patient was then placed supine and taken to recovery in stable condition. I attest to the content of the Intraoperative Record and any orders documented therein. Any exceptions are noted below. VAMSID
[2020-01-06] MEDS ORDERED: METOCLOPRAMIDE HCL INJ 5 MG/ML 2 ML VIAL IV PRN (16:32)
[2020-01-06] MEDS ORDERED: ALUMINUM/MAGNESIUM SUSP 30 ML UDC PO PRN (16:32)
[2020-01-06] MEDS ORDERED: OXYCODONE HCL IR 5 MG TAB (IMMEDIATE RELEASE) PO PRN (16:32)
[2020-01-06] MEDS ORDERED: bisacodyL 10 MG SUPP PR PRN (16:32)
[2020-01-06] MEDS ORDERED: NALOXONE HCL 0.4 MG/1 ML VIAL/CARP IV PRN (16:32)
[2020-01-06] MEDS ORDERED: MAGNESIUM HYDROXIDE SUSP 30 ML UDC PO PRN (16:32)
[2020-01-06] MEDS ORDERED: BETAMETHASONE VAL 0.1% CR 15 GM TOP PRN (16:32)
[2020-01-06] MEDS ORDERED: DICYCLOMINE HCL 20 MG TAB PO PRN (16:32)
[2020-01-06] MEDS ORDERED: LEVALBUTEROL HCL 0.63 MG/3 ML NEB INH PRN (16:32)
[2020-01-06] MEDS: SODIUM CHLORIDE 0.9% 1000ML 1,000 ML IV SCH (17:23)
--- NOTE | 2020-01-06 17:35 | Hospitalist Consultation ---
Date of Consultation January 06, 2020 Assessment & Plan (1) Status post total hip replacement, left: - Pain management, bowel regimen and DVT ppx w/ ASA 81 mg twice daily for now, switch to Eliquis 2.5 mg BID once medically stable per surgery as recommended by cardiology - PT/OT consults, pt is planning on outpatient therapy - Follow am CBC to monitor for acute blood loss (2) Atrial fibrillation: -New onset, will start metoprolol 12.5 mg twice daily -Throughout the day the patient has had a pulse in the low to mid 50s, continue to monitor on telemetry overnight -Check electrolytes, follow a.m. CBC -2D echo -Anticoagulation as above -Cardiology states she is at higher risk for cardioembolic event and recommended anticoagulation on long-term basis. (3) Essential hypertension: -Initiate beta-blockade as above, continue spironolactone, nifedipine (4) Hyperlipidemia: -Not on statin therapy, check lipids (5) Hypothyroidism: -Continue levothyroxine 100 mcg daily (6) Psoriatic arthropathy: -Continue prednisone 5 mg daily (7) CKD (chronic kidney disease) stage 4, GFR 15-29 ml/min: -Noted, follow a.m. BMP -Avoid nephrotoxins and renally reduce medications (8) GERD (gastroesophageal reflux disease): -Continue pantoprazole 40 mg BID (9) DVT prophylaxis: - teds, ASA 81 mg twice daily CODE: Full code Dispo: From home, likely to remain in the hospital x 1-2 days. Thank you for involving us in the care of Mrs. Vergara. Please do not hesitate to call with questions or concerns. Medicine will follow along. Supervising Physician Co-Signing Physician Notes Attending Attestation and Consult Note - Pt seen/examined, chart reviewed, consult care plan d/w SILVANA Larsen. I agree w/ the ellis components of her documentation. 74yo AA female with multiple medical problems who presented for elective left THR. At time of presentation this am found to be in asymptomatic rapid a.fib. Seen by cardiology and it was felt that it was reasonable/safe to proceed forward with surgery given the lack of symptoms. I saw patient post-op on the tele unit and she was resting comfortably. Surgery went well and w/o apparent complications. I checked the monitor and she had converted back to NSR. Her HR was about 60 during my assessment. She denied cp, dyspnea, or abdominal pain. PMH, PSH, allergies, meds, sochx, famhx - reviewed VSS, afebrile gen - NAD, talkative and pleasant neck - no JVD heart - RRR, s1 s2, no murmur lungs - CTA b/l abd - mild distension but no tenderness; BS+ ext - no edema; adductor pillow in place labs - Cr 2 EKG - rapid a.fib with I/AVL ST depression A/P: 1. new-onset a.fib -- resolved, converted to NSR. Cont low-dose BB. Keep on tele. Agree she should receive full anticoagulation as CHADS-VASC score is high. Start eliquis when ok with orthopedics. 2. CKD stage 3-4 - BMP in am. 3. s/p left THR - per ortho. 4. steroid dependent psoriatic arthritis - received IV decadron pre-op. On 01/06 give 20mg prednisone; on 01/07 give 10mg; then on 01/08 resume normal dose of 5mg/day. other plans per Ms Larsen. Hunter Blair MD History of Present Illness Reason for Consultation: Medical management Requesting Physician: Dr. Gonzales Attending Physician: Kimani Gonzales, DO History of Present Illness This is a 74-year-old female with new onset atrial fibrillation which began this morning prior to elective left total hip arthroplasty scheduled with Dr. Gonzales. Cardiology evaluated her this morning and was decided that she was able to proceed with her surgical procedure as she was asymptomatic. Heart rate was in the 100s to 120s on monitor, no signs of heart failure, no evidence of new valv ular heart disease. Started on low-dose metoprolol 12.5 preoperatively. Her HR has been in the low to mid 50s all through the day. She reports surgery went well, no acute complaints. Her leg is still numb but is able to move her leg. No flatus or BM yet, last BM was yesterday. Pt plans on doing home health once discharged. Other past medical history includes HTN, HLD, DM type II, CKD stage IV, psoriatic arthritis on chronic steroids, GERD, hiatal hernia, esophageal dysmotility, esophageal spasm, gastric polyp, IBS, peptic ulcer disease, Schatzki's ring, obesity, polyneuropathy, restless leg syndrome. Allergies Allergy/AdvReac Type Severity Reaction Status Date / Time codeine Allergy Severe Anaphylaxis Verified 01/06/20 07:46 Diclopak Allergy Intermediate CREATINE Verified 04/06/17 09:34 ELEVATION celecoxib [From Celebrex] Allergy Unknown RASH Verified 01/06/20 07:46 cephalexin [From Keflex] Allergy Unknown Rash Verified 01/06/20 07:46 hydrocodone Allergy Unknown Rash Verified 01/06/20 07:46 Iodinated Contrast Media Allergy Unknown RASH Verified 01/06/20 07:46 nickel Allergy Unknown Rash Verified 01/06/20 07:46 oxycodone Allergy Unknown Rash Verified 01/06/20 07:46 Sulfa (Sulfonamide Allergy Unknown RASH TO Verified 01/06/20 07:46 Antibiotics) SULFA DRUGS tetracycline Allergy Unknown RASH Verified 01/06/20 07:46 capsaicin AdvReac Unknown CREATINE Verified 01/06/20 07:46 ELEVATION diclofenac AdvReac Unknown CREATINE Verified 01/06/20 07:46 ELEVATION propylene glycol AdvReac Unknown CREATINE Verified 01/06/20 07:46 ELEVATION "PREP WITH BLUE DYE" Allergy Unknown Rash Uncoded 01/06/20 07:46 Home Medications Home Medications Medication Instructions Recorded Confirmed Type cholecalciferol (vitamin D3) 1,000 unit PO QAM 07/26/18 01/06/20 History [Vitamin D3] magnesium oxide 400 mg PO BID 07/26/18 01/06/20 History omega 2-ozc-uty-fish oil [Fish Oil] 1,000 mg PO BID 07/26/18 01/06/20 History azelastine 137 mcg (0.1 %) nasal 2 spray INTRANASAL DAILY PRN ml 11/23/18 01/06/20 History spray aerosol prednisone 5 mg tablet 5 mg PO HS #90 tab 12/27/18 01/06/20 Rx blood-glucose meter #1 ea 02/22/19 12/12/19 Rx lancets #50 ea 02/22/19 12/12/19 Rx nebulizers #1 ea 03/31/19 12/12/19 Rx nifedipine 90 mg PO HS 05/02/19 01/06/20 History Accu-Chek Guide test strips #100 ea NS 08/11/19 12/12/19 Rx cetirizine [Zyrtec] 5 mg PO BID 08/22/19 01/06/20 History levalbuterol HCl [Xopenex] 0.63 mg INHALATION Q4H PRN 08/22/19 01/06/20 History levothyroxine [Synthroid] 100 mcg PO QAM 08/22/19 01/06/20 History spironolactone [Aldactone] 25 mg PO BID 08/22/19 01/06/20 History pantoprazole 40 mg tablet,delayed 40 mg PO BID #60 tab 08/24/19 01/06/20 Rx release nitroglycerin 0.4 mg/hr 1 patch TRANSDERMAL DAILY #30 ea 11/17/19 01/06/20 Rx transdermal 24 hour patch betamethasone valerate 1 applic TOPICAL UD PRN 11/30/19 01/06/20 History dicyclomine 20 mg PO TID PRN 11/30/19 01/06/20 History duloxetine [Cymbalta] 60 mg PO QAM 11/30/19 01/06/20 History potassium chloride 20 mEq 20 meq PO BID #180 tab 01/02/20 01/06/20 Rx tablet,extended release Patient History Medical History (Updated 01/07/20 @ 12:02 by Cleopatra Chicas MD) Chronic steroid use FOR PSORITRIC ARTHRITIS CKD (chronic kidney disease) stage 4, GFR 15-29 ml/min baseline creatinine 2.0-2.2 range; nephrology (Dr. Stevenson) monitoring Esophageal dysmotility Esophageal spasm Gastric polyp GERD (gastroesophageal reflux disease) CONTROLLED WITH MEDS Hearing loss, right DEAF RIGHT EAR Hiatal hernia HTN (hypertension) Hyperlipidemia Hypothyroidism Irritable bowel syndrome Obesity Peptic ulcer disease Polyneuropathy Psoriatic arthropathy Restless leg syndrome Schatzki's ring Seasonal allergies Sometimes gets bronchitis, uses nebulizer for this and allergies Spinal meningioma On c-spine- follows with [facility] [place] (Dr. Ken)- under surveillance/stable/no indication for surgical intervention Tinnitus of right ear Type II diabetes mellitus diet controlled Varicose veins of legs Surgical History (Updated 01/06/20 @ 17:30 by Leny Larsen PA-C) H/O thyroidectomy History of arthroscopy RT/LEFT KNEE History of arthroscopy of right shoulder History of cardiac cath X2; 10+ YEARS AGO (NO STENTS) History of cataract extraction RT/LEFT History of cholecystectomy History of colonoscopy History of dilatation and curettage History of esophagogastroduodenoscopy (EGD) History of foot surgery RT FOOT FUSION History of lumbar fusion History of tonsillectomy and adenoidectomy History of tooth extraction History of total abdominal hysterectomy and bilateral salpingo-oophorectomy History of total hip arthroplasty RIGHT 05/27/19. Complicated by post-op seroma requiring multiple needle aspirations. History of total knee arthroplasty RIGHT Schatzki's ring HX S/P EGD WITH DILATION (2017) Status post total replacement of left shoulder hx of Family History Mother Hypertension Arthritis Father Hypertension Lung cancer Family/Other Colon cancer Unknown Hypertension Allergies Breast cancer Brother Cancer Denies family history of Ovarian cancer Prostate cancer Diabetes Myocardial infarction Stroke Social History Smoking Status: Former smoker Cigarettes Per Day: QUIT AGE 26; Second Hand Exposure: No; Do You Dip or Chew Tobacco: No; Tobacco Cessation Education Requested by Patient: No Hx Alcohol Use: Yes Alcohol type: wine Hx Substance Use: No Preferred Language: Uzbek Communication Ability: Effective Visual Impairment: No Limitations Hearing Ability: Hard of Hearing Physician Office Clin Asst Required: No Beliefs That Will Affect Care: None marital status: Current Living Situation: Alone Current Living Situation Comment: is in alf. 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 Other Information That Helps Us Care for You: No Feels Safe at Home: Yes Safety Concerns: Feels Safe At This Time caffeine: Yes Dental Care, Regularly: Yes Physical Activity Frequency: Does not Exercise Physical Activity Frequency Comment: Hip problems Seatbelt Use: always Sunscreen Use: No Review of Systems Review of Systems: Constitutional: No fever, sweats or chills Eyes: No diplopia, no worsening or blurred vision ENT: normal hearing, no trouble swallowing Respiratory: No cough, sputum, dyspnea at rest or on exertion Cardiovascular: No chest pain, tightness or palpitations Abdomen: No pain, nausea, vomiting, diarrhea or constipation Musculoskeletal: No joint pain, calf pain, swelling Neurologic: No weakness, numbness/tingling, or balance problems Psychiatric: No anxiety or depression Skin: No rash or itch Physical Exam Physical Exam: General: awake, alert, no apparent distress, +obese Head: Normocephalic, atraumatic ENT: PERRL, EOMI, no pharyngeal exudate, mucous membranes moist Chest: Clear to auscultation, on room air, no adventitious breath sounds Cardiac: Regular rate and rhythm, no murmur, no JVD, normal peripheral pulses, good capillary refill Abdominal: NABS x 4 quadrants, soft, nondistended, nontender to palpation, no rebound, guarding or tenderness Extremities: Left hip dressing c/d/i, drain in place, icepack, otherwise normal inspection, no peripheral edema or erythema, calfs nontender to palpation Psych: Normal mood and affect Neuro: AAO x 3, strength intact bilaterally and rated 5/5, no motor deficits, speech is clear, no peripheral sensory deficits Results & Data Results & Data ([facility]) Vital Signs (Past 12 Hours) Vital Signs Temp Pulse Pulse Resp BP BP Pulse Ox 01/06/20 16:33 36.6 C 54 L 12 139/60 98 01/06/20 15:45 54 L 13 146/77 H 97 01/06/20 15:30 52 L 16 142/91 H 95 01/06/20 15:15 49 L 14 132/73 97 01/06/20 15:05 56 L 14 146/81 H 94 01/06/20 14:55 36.7 C 55 L 14 138/86 96 01/06/20 14:45 50 L 15 126/77 97 01/06/20 14:35 56 L 15 150/76 H 95 01/06/20 14:25 51 L 16 137/87 95 01/06/20 14:15 36.1 C L 50 L 18 140/84 100 01/06/20 07:56 36.9 C 118 H 18 133/96 97 PG Care Time/CCT Total # of Minutes Spent Total Time Spent with Patient: Total time spent is greater than 50% in coordination of care (as documented) at patient's floor/unit and/or counseling patient: Coding Level of Care Code 25175 Inpt Consult Level 3 Diagnoses Status post total hip replacement, left Z96.642 Atrial fibrillation I48.91 Essential hypertension I10 Hyperlipidemia E78.5 Hypothyroidism E03.9 Psoriatic arthropathy L40.50 CKD (chronic kidney disease) stage 4, GFR 15-29 ml/min N18.4 GERD (gastroesophageal reflux disease) K21.9 Esophagitis presence: esophagitis presence not specified DVT prophylaxis Z29.9 (1) GERD (gastroesophageal reflux disease) Esophagitis presence: esophagitis presence not specified Qualified Code(s): K21.9 - Gastro-esophageal reflux disease without esophagitis
[2020-01-06] MEDS: PANTOprazole 40 MG TAB PO SCH (18:52)
[2020-01-06] MEDS: KETOROLAC TROMETHAMINE 15 MG/ML VIAL IV SCH (18:53)
[2020-01-06] MEDS: CEFAZOLIN 2000MG 2,000 MG/15 ML SYR IV SCH (18:53)
[2020-01-06] MEDS: SPIRONOLACTONE 25 MG TAB PO SCH (20:27)
[2020-01-06] MEDS: ASPIRIN 81 MG ECTAB PO SCH (20:29)
[2020-01-06] MEDS: OMEGA-3 (PURIFIED FISH OIL) 1 GM CAP PO SCH (20:30)
[2020-01-06] MEDS: CETIRIZINE HCL 10 MG TABLET PO SCH (20:30)
[2020-01-06] MEDS: MAGNESIUM OXIDE 400 MG TAB PO SCH (20:31)
[2020-01-06] MEDS: SENNA 8.6 MG TAB PO SCH (20:32)
[2020-01-06] MEDS: POTASSIUM CHLORIDE 20 MEQ TABCR PO SCH (20:33)
[2020-01-06] MEDS ORDERED: TRANEXAMIC ACID / 0.7% NACL 1,000 MG/100 ML BAG IV SCH (20:35)
[2020-01-06] MEDS: NIFEdipine EXTENDED REL 30 MG TABCR PO SCH (20:37)
[2020-01-06] MEDS ORDERED: predniSONE 5 MG TAB PO SCH (21:00)
[2020-01-06] MEDS: ACETAMINOPHEN 500 MG TAB PO SCH (21:51)
[2020-01-06] MEDS: HYDROmorphone INJ 0.5 MG/0.5 ML SYR IV PRN (22:32)
[2020-01-07] MEDS: KETOROLAC TROMETHAMINE 15 MG/ML VIAL IV SCH ×2 (00:17→05:25)
[2020-01-07] MEDS: HYDROmorphone INJ 0.5 MG/0.5 ML SYR IV PRN ×3 (02:50→21:42)
[2020-01-07] MEDS: SODIUM CHLORIDE 0.9% 1000ML 1,000 ML IV SCH (02:51)
[2020-01-07] MEDS: CEFAZOLIN 2000MG 2,000 MG/15 ML SYR IV SCH (03:14)
[2020-01-07] MEDS: ACETAMINOPHEN 500 MG TAB PO SCH ×3 (05:25→20:06)
[2020-01-07] MEDS: LEVOTHYROXINE SODIUM 100 MCG TABLET PO SCH (05:25)
[2020-01-07] MEDS ORDERED: TRANEXAMIC ACID 1,000 MG in 0.9 % SODIUM CHLORIDE 100 ML IR SCH (06:00)
--- NOTE | 2020-01-07 06:56 | Electrocardiogram Report ---
Test Reason : Blood Pressure : / mmHG Vent. Rate : 112 BPM Atrial Rate : 090 BPM P-R Int : 000 ms QRS Dur : 086 ms QT Int : 336 ms P-R-T Axes : 000 -09 104 degrees QTc Int : 458 ms Atrial fibrillation with rapid ventricular response Moderate voltage criteria for LVH, may be normal variant T wave abnormality, consider lateral ischemia Abnormal ECG When compared with ECG of 22-AUG-2019 11:06, Atrial fibrillation has replaced Sinus rhythm Vent. rate has increased BY 55 BPM Inverted T waves have replaced nonspecific T wave abnormality in Lateral leads Confirmed by Jarocho Herrera ([id number]) on 01/07/2020 6:55:34 AM Referred By: Kimani Gonzales Confirmed By:Jarocho Herrera
[2020-01-07] MEDS: SPIRONOLACTONE 25 MG TAB PO SCH (07:35)
[2020-01-07] MEDS: PANTOprazole 40 MG TAB PO SCH ×2 (07:35→16:19)
[2020-01-07] MEDS: MULTIVITAMIN TAB PO SCH (07:36)
[2020-01-07] MEDS: CHOLECALCIFEROL 1,000 UNITS 25 MCG TAB PO SCH (07:36)
[2020-01-07] MEDS: MAGNESIUM OXIDE 400 MG TAB PO SCH ×2 (07:36→20:05)
[2020-01-07] MEDS: DULOXETINE HCL 60 MG CAP PO SCH (07:36)
[2020-01-07] MEDS: ASPIRIN 81 MG ECTAB PO SCH ×2 (07:37→20:06)
[2020-01-07] MEDS: NITROGLYCERIN 0.4 MG/HR PATCH TD SCH (07:38)
[2020-01-07] MEDS: OMEGA-3 (PURIFIED FISH OIL) 1 GM CAP PO SCH ×2 (07:38→20:06)
[2020-01-07] MEDS: CETIRIZINE HCL 10 MG TABLET PO SCH ×2 (07:39→20:05)
[2020-01-07] MEDS: POTASSIUM CHLORIDE 20 MEQ TABCR PO SCH (07:58)
[2020-01-07] MEDS ORDERED: predniSONE 20 MG TAB PO SCH (09:00)
[2020-01-07 09:17] LABS: Basophils # (auto) 0.02 K/uL (0-0.2); Basophils % (auto) 0.2 %; Eosinophils # (auto) 0.01 K/uL (0-0.5); Eosinophils % (auto) 0.1 %; Hematocrit (blood only) 26.3 % (37-47); Hemoglobin 8.1 g/dL (12.0-16.0); Immature Granulocytes # (auto) 0.03 K/uL (0.00-0.02); Immature Granulocytes % (auto) 0.3 %; Lymphocytes # (auto) 1.02 K/uL (1.2-3.4); Mean Corpuscular Hemoglobin 25.3 pg (25-34); Mean Corpuscular Hgb Conc 30.8 g/dL (32-36); Mean Corpuscular Volume 82.2 fL (80-100); Mean Platelet Volume 10.5 fL (7.4-10.4); Monocytes # (auto) 1.06 K/uL (0.11-0.59); Monocytes % (auto) 9.4 %; Neutrophils # (auto) 9.17 K/uL (1.4-6.5); Platelet Count 317 K/uL (130-400); RDW Coefficient of Variation 18.4 % (11.5-14.5); RDW Standard Deviation 55.2 fL (36.4-46.3); White Blood Count 11.31 K/uL (4.8-10.8)
--- NOTE | 2020-01-07 09:45 | Orthopedic Progress Note ---
Date of Service January 07, 2020 Assessment & Plan (1) Osteoarthritis of left hip: POD #1 s/p Left ZACK WBAT LLE PT/OT DVT prophylaxis--will be on ASA 81 mg BID for today. Patient was in A Fib prior to the procedure so cardiology has recommended Eliquis 2.5 mg BID once able to start. She had a large hematoma with the right ZACK so we will try to start the Eliquis tomorrow or the following day. Will monitor the hemovac drainage also. Appreciate medicine and cardiology input. Hemovac kept in place. If significant drainage, may consider d/c home with hemovac for home health to remove when drainage is less than 50 cc in a day. Pain control. Monitor Hgb tomorrow--8.1 today. D/C planning--home with home health when stable. (2) Atrial fibrillation: (3) Postoperative anemia due to acute blood loss: Admission and Anticipated Discharge Date Admission Date: January 06, 2020 Subjective Doing well today. Pain was difficult to control last night but doing well today. Denies CP, SOB, LH. States she is going for an echocardiogram today. Physical Exam Constitutional: well developed and well nourished; no acute distress Sitting in bedside chair, comfortable. ENMT: external ear and nose normal, oropharynx normal Neck: trachea midline, no thyromegaly Respiratory: normal respiratory effort, lungs clear to auscultation Cardiovascular: Rate/Rhythm: regular rate and regular rhythm Gastrointestinal (Abdomen): normal bowel sounds, soft, nontender, no hepatosplenomegaly Musculoskeletal: Hip: + surgical incision (left hip: Prevena dressing in place and functioning.) and + surgical drain present (hemovac has drained 110 cc since yesterday.); no deformity, no skin erythema and no ecchymosis Skin: no rashes, warm and dry Neurologic: normal touch/pain/proprioception Psychiatric: A+Ox3, euthymic affect Speech: normal rate/rhythm/volume of speech Lymphatic: no cervical or axillary lymphadenopathy Results & Data ([facility]) Vital Signs (Past 12 Hours) Vital Signs Temp Pulse Pulse Resp BP BP Pulse Ox 01/07/20 08:43 62 01/07/20 07:40 37.0 C 81 18 139/80 95 01/07/20 05:11 61 01/07/20 04:00 37.0 C 69 18 112/69 92 01/06/20 23:15 36.6 C 66 18 126/72 95
[2020-01-07 09:50] LABS: BUN Creatinine Ratio 12.6 (10-20); Calcium 7.8 mg/dl (8.5-10.1); Creatinine Clr Calc Pharmacy 21.7 ml/min; Est GFR (Non-African American) 14.7; Potassium 3.9 mmol/L (3.5-5.1)
[2020-01-07] MEDS ORDERED: BETAMETHASONE VAL TOP PRN (10:07)
--- NOTE | 2020-01-07 11:50 | Hospitalist Progress Note ---
Date of Service January 07, 2020 Assessment & Plan (1) Status post total hip replacement, left: - Pain management, bowel regimen and DVT ppx w/ ASA 81 mg twice daily for now, switch to Eliquis tomorrow given h/o hematoma during last hip replacement as per Ortho - PT/OT consults, pt is planning on outpatient therapy - Follow am CBC to monitor for acute blood loss-did drop today to 8.1 and has baseline anemia of CKD DOing well, drain remains in place -dc toradol and would not give any NSAIDs given CKD (2) Atrial fibrillation: -New onset,noted preop and asymptomatic, rates 110-120s Was given one dose metoprolol 12.5mg yesterday and then had rates in 50s after spontaneous cardioversion to sinus -remains in SB-NSR here -no further metoprolol for now given bradycardia-will d/w Cardiology -ok to wait till tomorrow for ELiquis--> question if can do 5mg bid as her weight and age do not qualify for lower dose Eliquis -2D echo pending (3) Essential hypertension: -BPs stable -hold aldactone for JULIO (4) 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 Received his aldactone this AM and toradol scheduled through last 24 hours -dc NSAIDs, hold aldactone -consult Nephro -continue NaHCO3 follow BMP (5) Hyperlipidemia: -Not on statin therapy LDL 123 in 07/2018 (6) Hypothyroidism: -Continue levothyroxine 100 mcg daily TSH normal in 07/2019 (7) Psoriatic arthropathy: -Continue prednisone 10 mg qAM and 5mg qPM no stress dose steroids needed at this time (8) CKD (chronic kidney disease) stage 4, GFR 15-29 ml/min: -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 Vergara. Please do not hesitate to call with questions or concerns. Medicine will follow along. Admission and Anticipated Discharge Date Admission Date: January 06, 2020 Subjective Pt feeling well, has some pain in her hip. Denies lightheadedness, no CP or SOB, no nausea, is efrain po. No heart palpitations now or with the Afib yesterday. Reports an occasional numbness in her anterior neck in the past and wonders if that was from the Afib. Tele with NSR , SB, PVCs, rates 50-70s I discussed her care with Ortho PA and with Nephrology today Review of Systems Review of Systems: All systems reviewed & are unremarkable except as noted in HPI & below Physical Exam Constitutional: WD/WN, vitals as above Eyes: + anicteric sclerae Neck: trachea midline, no thyromegaly Respiratory: normal respiratory effort, lungs clear to auscultation Cardiovascular: RRR, no murmur, no edema Extremities: no calf tenderness Chest (Breasts): Chest: normal inspection of chest Gastrointestinal (Abdomen): normal bowel sounds, soft, nontender, no hepatosplenomegaly Musculoskeletal: Extremities: + extremities abnormal to inspection (left hip with dressing in place,hemovac with bloody drainage), no cyanosis and no clubbing Skin: no rashes, warm and dry Neurologic: moves all extremities and awake; no focal motor deficits Psychiatric: A+Ox3, euthymic affect Lymphatic: no lymphedema Results & Data Results & Data ([facility]) Vital Signs (Past 12 Hours) Vital Signs Temp Pulse Pulse Resp BP Pulse Ox 01/07/20 11:13 36.6 C 69 18 117/61 95 01/07/20 08:43 62 01/07/20 07:40 37.0 C 81 18 139/80 95 01/07/20 05:11 61 01/07/20 04:00 37.0 C 69 18 112/69 92 Laboratory Results 01/07/20 01/07/20 01/07/20 Range/Units 11:25 08:56 08:56 WBC 11.31 H (4.8-10.8) K/uL RBC 3.20 L (4.2-5.4) M/uL Hgb 8.1 L (12.0-16.0) g/dL Hct 26.3 L (37-47) % MCV 82.2 (80-100) fL MCH 25.3 (25-34) pg MCHC 30.8 L (32-36) g/dL RDW Std Deviation 55.2 H (36.4-46.3) fL RDW Coeff of Amrita 18.4 H (11.5-14.5) % Plt Count 317 (130-400) K/uL MPV 10.5 H (7.4-10.4) fL Immature Gran % (Auto) 0.3 % Neut % (Auto) 81.0 % Lymph % (Auto) 9.0 % [place] % (Auto) 9.4 % Eos % (Auto) 0.1 % Baso % (Auto) 0.2 % Neut # (Auto) 9.17 H (1.4-6.5) K/uL Lymph # (Auto) 1.02 L (1.2-3.4) K/uL [place] # (Auto) 1.06 H (0.11-0.59) K/uL Eos # (Auto) 0.01 (0-0.5) K/uL Baso # (Auto) 0.02 (0-0.2) K/uL Immature Gran # (Auto) 0.03 H (0.00-0.02) K/uL Sodium 138 (136-145) mmol/L Potassium 3.9 (3.5-5.1) mmol/L Chloride 108 H (98-107) mmol/L Carbon Dioxide 21 (21-32) mmol/L Anion Gap 9.0 (3-11) BUN 38 H (7-18) mg/dl Creatinine 3.02 H D (0.6-1.2) mg/dl Est Cr Clr Drug Dosing 21.7 ml/min Est GFR ( Amer) 17.0 Est GFR (Non-Af Amer) 14.7 BUN/Creatinine Ratio 12.6 (10-20) Glucose 148 H (70-99) mg/dl POC Glucose 158 H (70-99) mg/dl Calcium 7.8 L (8.5-10.1) mg/dl 01/07/20 01/06/20 01/06/20 Range/Units 07:43 20:31 15:28 WBC (4.8-10.8) K/uL RBC (4.2-5.4) M/uL Hgb (12.0-16.0) g/dL Hct (37-47) % MCV (80-100) fL MCH (25-34) pg MCHC (32-36) g/dL RDW Std Deviation (36.4-46.3) fL RDW Coeff of Amrita (11.5-14.5) % Plt Count (130-400) K/uL MPV (7.4-10.4) fL Immature Gran % (Auto) % Neut % (Auto) % Lymph % (Auto) % [place] % (Auto) % Eos % (Auto) % Baso % (Auto) % Neut # (Auto) (1.4-6.5) K/uL Lymph # (Auto) (1.2-3.4) K/uL [place] # (Auto) (0.11-0.59) K/uL Eos # (Auto) (0-0.5) K/uL Baso # (Auto) (0-0.2) K/uL Immature Gran # (Auto) (0.00-0.02) K/uL Sodium (136-145) mmol/L Potassium (3.5-5.1) mmol/L Chloride (98-107) mmol/L Carbon Dioxide (21-32) mmol/L Anion Gap (3-11) BUN (7-18) mg/dl Creatinine (0.6-1.2) mg/dl Est Cr Clr Drug Dosing ml/min Est GFR ( Amer) Est GFR (Non-Af Amer) BUN/Creatinine Ratio (10-20) Glucose (70-99) mg/dl POC Glucose 153 H 212 H 160 H (70-99) mg/dl Calcium (8.5-10.1) mg/dl PG Care Time/CCT Total # of Minutes Spent Total Time Spent with Patient: Total time spent is greater than 50% in coordination of care (as documented) at patient's floor/unit and/or counseling patient: Coding Level of Care Code 57543 Subseq Hosp Care Lvl 3 Diagnoses Status post total hip replacement, left Z96.642 Atrial fibrillation I48.91 Essential hypertension I10 JULIO (acute kidney injury) N17.9 Hyperlipidemia E78.5 Hypothyroidism E03.9 Psoriatic arthropathy L40.50 CKD (chronic kidney disease) stage 4, GFR 15-29 ml/min N18.4 GERD (gastroesophageal reflux disease) K21.9 Esophagitis presence: esophagitis presence not specified DVT prophylaxis Z29.9 (1) GERD (gastroesophageal reflux disease) Esophagitis presence: esophagitis presence not specified Qualified Code(s): K21.9 - Gastro-esophageal reflux disease without esophagitis
--- NOTE | 2020-01-07 14:25 | Nephrology Consultation ---
Date of Consultation January 07, 2020 Assessment & Plan (1) JULIO (acute kidney injury): * JULIO is likely hemodynamic injury related to recent surgery and new onset atrial fibrillation * Will order urinalysis and recheck PRP in am * Hold Spironolactone and KCl supplement (2) CKD (chronic kidney disease) stage 4, GFR 15-29 ml/min: * Baseline Cr 2.0 due to microvascular disease and hypertensive nephrosclerosis (3) Psoriatic arthropathy: * s/p L ZACK 01/06/20 (4) Postoperative anemia due to acute blood loss: * Monitor H&H. Consider transfusion for Hgb < 8 (5) Atrial fibrillation: * Check echocardiogram and TFT as per Cardiology History of Present Illness Attending Physician: Kimani Gonzales, DO History of Present Illness Mrs. Vergara is a 74 year old female who is seen at the request of Dr. Chicas for evaluation of JULIO/CKD. Medical records in the EMR were reviewed and are summarized as follows: Mrs. Vergara has stage IV CKD (baseline Cr 2.0 w/ EGFR 25 cc/min). Her renal impairment is due to microvascular disease and hypertensive nephrosclerosis. Her medical history is also significant for psoriatic arthritis, chronic LE lymphedema (LE compression stockings), HTN and a T1 mass lesion that is monitored by [facility] [place]. Mrs. Vergara underwent R ZACK 06/13. She was admitted to [facility] and underwent elective L ZACK 01/06/20. Perioperatively she developed new onset atrial fibrillation. Rate was controlled and she spontaneously converted to NSR. Hgb has dropped from 10.7 to 8.1. Creatinine has risen from 2 to 3.0. Mrs. Vergara reports brisk UO. She is net 3L positive since admission. SBP has been 110 - 140 mmHg. Allergies Allergy/AdvReac Type Severity Reaction Status Date / Time codeine Allergy Severe Anaphylaxis Verified 01/06/20 07:46 Diclopak Allergy Intermediate CREATINE Verified 04/06/17 09:34 ELEVATION celecoxib [From Celebrex] Allergy Unknown RASH Verified 01/06/20 07:46 cephalexin [From Keflex] Allergy Unknown Rash Verified 01/06/20 07:46 hydrocodone Allergy Unknown Rash Verified 01/06/20 07:46 Iodinated Contrast Media Allergy Unknown RASH Verified 01/06/20 07:46 nickel Allergy Unknown Rash Verified 01/06/20 07:46 oxycodone Allergy Unknown Rash Verified 01/06/20 07:46 Sulfa (Sulfonamide Allergy Unknown RASH TO Verified 01/06/20 07:46 Antibiotics) SULFA DRUGS tetracycline Allergy Unknown RASH Verified 01/06/20 07:46 capsaicin AdvReac Unknown CREATINE Verified 01/06/20 07:46 ELEVATION diclofenac AdvReac Unknown CREATINE Verified 01/06/20 07:46 ELEVATION propylene glycol AdvReac Unknown CREATINE Verified 01/06/20 07:46 ELEVATION "PREP WITH BLUE DYE" Allergy Unknown Rash Uncoded 01/06/20 07:46 Home Medications Home Medications Medication Instructions Recorded Confirmed Type cholecalciferol (vitamin D3) 1,000 unit PO QAM 07/26/18 01/06/20 History [Vitamin D3] magnesium oxide 400 mg PO BID 07/26/18 01/06/20 History omega 2-eeg-nuz-fish oil [Fish Oil] 1,000 mg PO BID 07/26/18 01/06/20 History azelastine 137 mcg (0.1 %) nasal 2 spray INTRANASAL DAILY PRN ml 11/23/18 01/06/20 History spray aerosol prednisone 5 mg tablet 5 mg PO HS #90 tab 12/27/18 01/06/20 Rx blood-glucose meter #1 ea 02/22/19 12/12/19 Rx lancets #50 ea 02/22/19 12/12/19 Rx nebulizers #1 ea 03/31/19 12/12/19 Rx nifedipine 90 mg PO HS 05/02/19 01/06/20 History Accu-Chek Guide test strips #100 ea NS 08/11/19 12/12/19 Rx cetirizine [Zyrtec] 5 mg PO BID 08/22/19 01/06/20 History levalbuterol HCl [Xopenex] 0.63 mg INHALATION Q4H PRN 08/22/19 01/06/20 History levothyroxine [Synthroid] 100 mcg PO QAM 08/22/19 01/06/20 History spironolactone [Aldactone] 25 mg PO BID 08/22/19 01/06/20 History pantoprazole 40 mg tablet,delayed 40 mg PO BID #60 tab 08/24/19 01/06/20 Rx release nitroglycerin 0.4 mg/hr 1 patch TRANSDERMAL DAILY #30 ea 11/17/19 01/06/20 Rx transdermal 24 hour patch betamethasone valerate 1 applic TOPICAL UD PRN 11/30/19 01/06/20 History dicyclomine 20 mg PO TID PRN 11/30/19 01/06/20 History duloxetine [Cymbalta] 60 mg PO QAM 11/30/19 01/06/20 History potassium chloride 20 mEq 20 meq PO BID #180 tab 01/02/20 01/06/20 Rx tablet,extended release Patient History Medical History (Updated 01/07/20 @ 12:02 by Cleopatra Chicas MD) Chronic steroid use FOR PSORITRIC ARTHRITIS CKD (chronic kidney disease) stage 4, GFR 15-29 ml/min baseline creatinine 2.0-2.2 range; nephrology (Dr. Stevesnon) monitoring Esophageal dysmotility Esophageal spasm Gastric polyp GERD (gastroesophageal reflux disease) CONTROLLED WITH MEDS Hearing loss, right DEAF RIGHT EAR Hiatal hernia HTN (hypertension) Hyperlipidemia Hypothyroidism Irritable bowel syndrome Obesity Peptic ulcer disease Polyneuropathy Psoriatic arthropathy Restless leg syndrome Schatzki's ring Seasonal allergies Sometimes gets bronchitis, uses nebulizer for this and allergies Spinal meningioma On c-spine- follows with [facility] [place] (Dr. Ken)- under surveillance/stable/no indication for surgical intervention Tinnitus of right ear Type II diabetes mellitus diet controlled Varicose veins of legs Surgical History (Updated 01/06/20 @ 17:30 by Leny Larsen PA-C) H/O thyroidectomy History of arthroscopy RT/LEFT KNEE History of arthroscopy of right shoulder History of cardiac cath X2; 10+ YEARS AGO (NO STENTS) History of cataract extraction RT/LEFT History of cholecystectomy History of colonoscopy History of dilatation and curettage History of esophagogastroduodenoscopy (EGD) History of foot surgery RT FOOT FUSION History of lumbar fusion History of tonsillectomy and adenoidectomy History of tooth extraction History of total abdominal hysterectomy and bilateral salpingo-oophorectomy History of total hip arthroplasty RIGHT 05/27/19. Complicated by post-op seroma requiring multiple needle aspirations. History of total knee arthroplasty RIGHT Schatzki's ring HX S/P EGD WITH DILATION (2016) Status post total replacement of left shoulder hx of Family History Mother Hypertension Arthritis Father Hypertension Lung cancer Family/Other Colon cancer Unknown Hypertension Allergies Breast cancer Brother Cancer Denies family history of Ovarian cancer Prostate cancer Diabetes Myocardial infarction Stroke Social History Smoking Status: Former smoker Cigarettes Per Day: QUIT AGE 26; Second Hand Exposure: No; Do You Dip or Chew Tobacco: No; Tobacco Cessation Education Requested by Patient: No Hx Alcohol Use: Yes Alcohol type: wine Hx Substance Use: No Preferred Language: Telugu Communication Ability: Effective Visual Impairment: No Limitations Hearing Ability: Hard of Hearing Jacker Feeder Required: No Beliefs That Will Affect Care: None marital status: Current Living Situation: Alone Current Living Situation Comment: is in fdc. 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 Other Information That Helps Us Care for You: No Feels Safe at Home: Yes Safety Concerns: Feels Safe At This Time caffeine: Yes Dental Care, Regularly: Yes Physical Activity Frequency: Does not Exercise Physical Activity Frequency Comment: Hip problems Seatbelt Use: always Sunscreen Use: No Review of Systems Constitutional: no fever Eyes: no problem reported Ear, Nose, Mouth, Throat: no problem reported Respiratory: no dyspnea Cardiovascular: + edema; no chest pain and no palpitations Gastrointestinal: no abdominal pain Genitourinary: no dysuria and no hematuria Musculoskeletal: no back pain Integumentary: no rash Neurologic: no dizziness and no confusion Physical Exam Constitutional: not in distress Eyes: PERRL, conjunctivae normal, anicteric sclerae ENMT: external ear and nose normal, oropharynx normal Neck: trachea midline, no thyromegaly Respiratory: normal respiratory effort, lungs clear to auscultation Cardiovascular: Rate/Rhythm: regular rate and regular rhythm Extremities: + edema (trace pretibial edema) Gastrointestinal (Abdomen): normal bowel sounds, soft, nontender, no hepatosplenomegaly Musculoskeletal: Extremities: no cyanosis surgical drain in L hip Skin: no rashes Neurologic: awake; not confused Results & Data ([facility]) Vital Signs (Past 12 Hours) Vital Signs Temp Pulse Pulse Resp BP Pulse Ox 01/07/20 11:13 36.6 C 69 18 117/61 95 01/07/20 08:43 62 01/07/20 07:40 37.0 C 81 18 139/80 95 08/15/20 05:11 61 01/07/20 04:00 37.0 C 69 18 112/69 92 Laboratory Results Laboratory Tests 12/06/19 01/07/20 01/07/20 10:48 08:56 08:56 WBC 11.31 H Hgb 8.1 L Hct 26.3 L Plt Count 317 Sodium 138 Potassium 3.9 Chloride 108 H Carbon Dioxide 21 BUN 38 H Creatinine 3.02 H D Glucose 148 H Calcium 7.8 L Albumin 3.2 L PG Care Time/CCT Total # of Minutes Spent Total Time Spent with Patient: Total time spent is greater than 50% in coordin ation of care (as documented) at patient's floor/unit and/or counseling patient: Coding Level of Care Code 28870 Inpt Consult Level 5 Diagnoses JULIO (acute kidney injury) N17.9 CKD (chronic kidney disease) stage 4, GFR 15-29 ml/min N18.4 Psoriatic arthropathy L40.50 Postoperative anemia due to acute blood loss D62 Atrial fibrillation I48.91
[2020-01-07 18:04] LABS: Appearance Urine Clear (Clear); Bilirubin Urine Negative (Negative); Blood Urine Trace (Negative); Color Urine Yellow; Glucose Urine UA Negative (Negative); Ketones Urine Negative (Negative); Leukocyte Esterase Urine Negative (Negative); Nitrite Urine Negative (Negative); Protein Urine Negative (Negative); Urobilinogen Urine Negative (Negative); pH Urine 5.5 (4.5-7.5)
[2020-01-07 18:20] LABS: WBC Urine 0-5 /hpf (0-5)
[2020-01-07 18:21] LABS: Bacteria Urine 2+ (Negative)
[2020-01-07] MEDS: NIFEdipine EXTENDED REL 30 MG TABCR PO SCH (20:05)
[2020-01-07] MEDS: SENNA 8.6 MG TAB PO SCH (20:08)
[2020-01-08] MEDS: HYDROmorphone INJ 0.5 MG/0.5 ML SYR IV PRN ×3 (04:53→23:10)
[2020-01-08] MEDS: LEVOTHYROXINE SODIUM 100 MCG TABLET PO SCH (05:46)
[2020-01-08] MEDS: ACETAMINOPHEN 500 MG TAB PO SCH ×3 (05:46→20:15)
[2020-01-08] MEDS: PANTOprazole 40 MG TAB PO SCH ×2 (07:46→16:17)
[2020-01-08] MEDS: DULOXETINE HCL 60 MG CAP PO SCH (07:46)
[2020-01-08] MEDS: MAGNESIUM OXIDE 400 MG TAB PO SCH ×2 (07:47→20:13)
[2020-01-08] MEDS: MULTIVITAMIN TAB PO SCH (07:47)
[2020-01-08] MEDS: CETIRIZINE HCL 10 MG TABLET PO SCH ×2 (07:48→20:14)
[2020-01-08] MEDS: NITROGLYCERIN 0.4 MG/HR PATCH TD SCH (07:48)
[2020-01-08] MEDS: OMEGA-3 (PURIFIED FISH OIL) 1 GM CAP PO SCH ×2 (07:49→20:12)
[2020-01-08] MEDS: CHOLECALCIFEROL 1,000 UNITS 25 MCG TAB PO SCH (07:49)
[2020-01-08] MEDS: ASPIRIN 81 MG ECTAB PO SCH ×2 (07:49→20:12)
[2020-01-08 08:02] LABS: Basophils # (auto) 0.02 K/uL (0-0.2); Basophils % (auto) 0.2 %; Eosinophils # (auto) 0.05 K/uL (0-0.5); Eosinophils % (auto) 0.5 %; Hematocrit (blood only) 25.1 % (37-47); Hemoglobin 7.9 g/dL (12.0-16.0); Immature Granulocytes # (auto) 0.05 K/uL (0.00-0.02); Immature Granulocytes % (auto) 0.5 %; Lymphocytes # (auto) 1.13 K/uL (1.2-3.4); Lymphocytes % (auto) 11.3 %; Mean Corpuscular Hemoglobin 25.7 pg (25-34); Mean Corpuscular Hgb Conc 31.5 g/dL (32-36); Mean Corpuscular Volume 81.8 fL (80-100); Mean Platelet Volume 10.7 fL (7.4-10.4); Monocytes # (auto) 1.03 K/uL (0.11-0.59); Monocytes % (auto) 10.3 %; Neutrophils # (auto) 7.72 K/uL (1.4-6.5); Neutrophils % (auto) 77.2 %; Platelet Count 251 K/uL (130-400); RDW Coefficient of Variation 18.6 % (11.5-14.5); RDW Standard Deviation 54.7 fL (36.4-46.3); Red Blood Count 3.07 M/uL (4.2-5.4)
[2020-01-08 08:34] LABS: Anisocytosis Present
[2020-01-08] MEDS ORDERED: predniSONE 10 MG TABLET PO SCH (09:00)
[2020-01-08 09:48] LABS: BUN Creatinine Ratio 14.6 (10-20); Calcium 7.3 mg/dl (8.5-10.1); Creatinine Clr Calc Pharmacy 34.7 ml/min; Est GFR (African American) 30.2; Potassium 3.7 mmol/L (3.5-5.1)
--- NOTE | 2020-01-08 10:08 | Nephrology Progress Note ---
Date of Service January 08, 2020 Assessment & Plan (1) JULIO (acute kidney injury): * JULIO is likely hemodynamic injury related to recent surgery and new onset atrial fibrillation * Kidney function has now recovered. Electrolyte balance is acceptable * Urinalysis is negative for signigicant protein or blood * BP is controlled. Continue to hold Spironolactone and KCl supplement (2) CKD (chronic kidney disease) stage 4, GFR 15-29 ml/min: * Baseline Cr 2.0 due to microvascular disease and hypertensive nephrosclerosis (3) Psoriatic arthropathy: * s/p L ZACK 01/06/20 (4) Anemia: * Patient is still having significant drainage from L hip drain * Hgb 7.9 this am. Patient is asymptomatic * Will order iron studies and provide Venofer 200 mg IV x1 * Consider blood transfusion if Hgb drops further (5) Atrial fibrillation: * Patient reports intermittent palpitations. * Await Cardiology input Admission and Anticipated Discharge Date Admission Date: January 07, 2020 Subjective Mrs. Vergara was seen & examined in her hospital room this morning. She c/o palpitations and notes that her L hip drain continues to collect blood. She denies fever, angina or dyspnea Review of Systems Constitutional: no fever Eyes: no problem reported Ear, Nose, Mouth, Throat: no problem reported Respiratory: no cough and no dyspnea Cardiovascular: + palpitations; no chest pain Gastrointestinal: no abdominal pain and no diarrhea/loose stools Genitourinary: no dysuria and no hematuria Musculoskeletal: no back pain Integumentary: no rash Neurologic: no dizziness and no confusion Physical Exam Constitutional: not in distress Eyes: PERRL, conjunctivae normal, anicteric sclerae ENMT: external ear and nose normal, oropharynx normal Neck: trachea midline, no thyromegaly Respiratory: normal respiratory effort, lungs clear to auscultation Cardiovascular: Rate/Rhythm: regular rate and regular rhythm Extremities: + edema (trace pretibial edema) Gastrointestinal (Abdomen): normal bowel sounds, soft, nontender, no hepatosplenomegaly Musculoskeletal: Extremities: no cyanosis surgical drain in L hip Skin: no rashes Neurologic: awake; not confused Results & Data ([facility]) Vital Signs (Past 12 Hours) Vital Signs Temp Pulse Pulse Resp BP Pulse Ox 01/08/20 08:58 64 01/08/20 07:20 36.8 C 72 18 114/63 95 01/08/20 04:00 36.9 C 75 18 134/73 96 01/07/20 23:59 36.7 C 62 20 136/69 97 01/07/20 23:09 71 Laboratory Tests 01/08/20 01/08/20 07:35 07:35 WBC 10.00 Hgb 7.9 L Hct 25.1 L Plt Count 251 Sodium 139 Potassium 3.7 Chloride 109 H Carbon Dioxide 24 BUN 28 H Creatinine 1.88 H D Glucose 103 H PG Care Time/CCT Total # of Minutes Spent Total Time Spent with Patient: Total time spent is greater than 50% in coordination of care (as documented) at patient's floor/unit and/or counseling patient: Coding Level of Care Code 09821 Subseq Hosp Care Lvl 3 Diagnoses JULIO (acute kidney injury) N17.9 CKD (chronic kidney disease) stage 4, GFR 15-29 ml/min N18.4 Psoriatic arthropathy L40.50 Anemia D64.9 Atrial fibrillation I48.91
--- NOTE | 2020-01-08 10:35 | Orthopedic Progress Note ---
Date of Service January 08, 2020 Assessment & Plan (1) Osteoarthritis of left hip: POD #2 s/p Left ZACK WBAT LLE PT/OT DVT prophylaxis--will be on ASA 81 mg BID still. Patient was in A Fib prior to the procedure so cardiology has recommended Eliquis 2.5 mg BID once able to start. She had a large hematoma with the right ZACK so we will try to start the Eliquis tomorrow. Will monitor the hemovac drainage also. Appreciate medicine and cardiology input. Hemovac kept in place. Will try to get drainage to under 50 cc in 24 hours before removing. Pain control. Monitor Hgb tomorrow--7.9 today and SOB with ambulation. Will transfuse 2 units PRBC today. D/C planning--home with home health when stable. (2) Atrial fibrillation: (3) Postoperative anemia due to acute blood loss: Admission and Anticipated Discharge Date Admission Date: January 07, 2020 Subjective Doing well today. Pain in the hip is controlled with the pain meds. Some cramping feeling in each thigh. States she was a little short of breath this AM with ambulation which was similar to her right ZACK. At that time, she was given blood which helped the symptoms. Her hemovac is occasionally not keeping its suction but it is still draining. Physical Exam Constitutional: well developed and well nourished; no acute distress ENMT: external ear and nose normal, oropharynx normal Neck: trachea midline, no thyromegaly Respiratory: normal respiratory effort, lungs clear to auscultation Cardiovascular: Rate/Rhythm: regular rate and regular rhythm Gastrointestinal (Abdomen): normal bowel sounds, soft, nontender, no hepatosplenomegaly Musculoskeletal: Hip: + surgical incision (left hip: Prevena dressing in place and functioning.) and + surgical drain present (hemovac has drained 300 cc total); no deformity, no skin erythema and no ecchymosis Skin: no rashes, warm and dry Neurologic: normal touch/pain/proprioception Psychiatric: A+Ox3, euthymic affect Speech: normal rate/rhythm/volume of speech Lymphatic: no cervical or axillary lymphadenopathy Results & Data ([facility]) Vital Signs (Past 12 Hours) Vital Signs Temp Pulse Pulse Resp BP Pulse Ox 01/08/20 08:58 64 01/08/20 07:20 36.8 C 72 18 114/63 95 01/08/20 04:00 36.9 C 75 18 134/73 96 01/07/20 23:59 36.7 C 62 20 136/69 97 01/07/20 23:09 71
[2020-01-08] MEDS ORDERED: SODIUM CHLORIDE 0.9% 250 ML IV PRN ×2 (10:39→10:42)
[2020-01-08] MEDS ORDERED: IRON SUCROSE 200 MG in 0.9 % SODIUM CHLORIDE 100 ML IV ONE (11:00)
[2020-01-08 11:17] LABS: Ferritin 15.6 ng/ml (8-388)
--- NOTE | 2020-01-08 13:46 | Hospitalist Progress Note ---
Date of Service January 08, 2020 Assessment & Plan (1) Status post total hip replacement, left: S/p left ZACK on 01/05 - Pain management, bowel regimen and DVT ppx w/ ASA 81 mg twice daily for now, switch to Eliquis tomorrow given h/o hematoma during last hip replacement as per Ortho and with acute anemia here,excessive drainage from hemovac - PT/OT consults, pt is planning on outpatient therapy - follow CBC in AM (2) Atrial fibrillation: -New onset,noted preop and asymptomatic, rates 110-120s Was given one dose metoprolol 12.5mg preoperatively and then had rates in 50s after spontaneous cardioversion to sinus -remains in NSR here with some PACs frequently -no further metoprolol for now given bradycardia-will d/w Cardiology -will again hold off on starting ELiquis given bloody drainage from hemovac and need for transfusion; also remains in sinus rhythm--> would be dosed at 5mg bid as her weight and age do not qualify for lower dose Eliquis, however Cardiology was recommending 2.5mg dosing--> will need to clarify what Cardiology prefers -2D echo pending (3) JULIO (acute kidney injury): [place]phalt Dauber vanessa to 3.0 on POD#1 -held aldactone, dcd toradol now auto damage appraiser back to baseline 1.8, doing wlel, making urine Nephrology following -follow BMP (4) Essential hypertension: -BPs stable -holding aldactone for JULIO (5) Hyperlipidemia: -Not on statin therapy LDL 123 in 07/2018 (6) Hypothyroidism: -Continue levothyroxine 100 mcg daily TSH normal in 07/2019 (7) Psoriatic arthropathy: -Continue prednisone 10 mg qAM and 5mg qPM no stress dose steroids needed at this time (8) CKD (chronic kidney disease) stage 4, GFR 15-29 ml/min: -baseline auto damage appraiser 1.7-2.0, with JULIO as above -Avoid nephrotoxins and renally reduce medications (9) GERD (gastroesophageal reflux disease): -Continue pantoprazole 40 mg BID (10) Postoperative anemia due to acute blood loss: Hgb dropped again to 7.9 today, with COMBS transfuse 2 units pRBCs today follow CBC in AM (11) Iron deficiency anemia: hgb low as above from chronic disease, Fe deficiency is severe at transferrin sat 3%, ferritin only 15, and with acute blood loss anemia also from surgery -transfuse 2 units pRBCs today also received IV Venofer x 1 dose -follow CBC -may need GI workup as outpt (12) DVT prophylaxis: - teds, ASA 81 mg twice daily until starting Eliquis tomorrow if hemovac drainage has slowed down CODE: Full code Dispo: continued stay due to symptomatic anemia Thank you for involving us in the care of Mrs. Vergara. Please do not hesitate to call with questions or concerns. Medicine will follow along. Admission and Anticipated Discharge Date Admission Date: January 07, 2020 Subjective Feeling well today. A little SOB with ambulating to the bathroom today. Hgb down to 7.9, iron very low, getting PRBC transfusion when I saw her. Discussed her care with Nephrology Denies chest pain, no n/v, is efrain po, making urine. Tele with NSR ,PACs, rates 60-70s, a few short runs of PACs Review of Systems Review of Systems: All systems reviewed & are unremarkable except as noted in HPI & below some pain in left hip Physical Exam Constitutional: WD/WN, vitals as above Eyes: + anicteric sclerae Neck: trachea midline, no thyromegaly Respiratory: normal respiratory effort, lungs clear to auscultation Cardiovascular: RRR, no murmur, no edema Extremities: no calf tenderness Chest (Breasts): Chest: normal inspection of chest Gastrointestinal (Abdomen): normal bowel sounds, soft, nontender, no hepatosplenomegaly Musculoskeletal: Extremities: + extremities abnormal to inspection (left hip with dressing in place,hemovac with bloody drainage), no cyanosis and no clubbing Skin: no rashes, warm and dry Neurologic: moves all extremities and awake; no focal motor deficits Psychiatric: A+Ox3, euthymic affect Lymphatic: no lymphedema Results & Data Results & Data ([facility]) Vital Signs (Past 12 Hours) Vital Signs Temp Pulse Pulse Resp BP BP BP 01/08/20 13:13 36.8 C 69 20 132/73 01/08/20 13:00 36.9 C 75 18 132/72 01/08/20 12:40 36.9 C 73 16 125/77 01/08/20 11:49 36.8 C 66 18 114/62 01/08/20 08:58 64 01/08/20 07:20 36.8 C 72 18 114/63 01/08/20 04:00 36.9 C 75 18 134/73 Pulse Ox 01/08/20 13:13 01/08/20 13:00 97 01/08/20 12:40 01/08/20 11:49 93 01/08/20 08:58 01/08/20 07:20 95 01/08/20 04:00 96 Laboratory Results 01/08/20 01/08/20 01/08/20 Range/Units 11:20 07:35 07:35 WBC (4.8-10.8) K/uL RBC (4.2-5.4) M/uL Hgb (12.0-16.0) g/dL Hct (37-47) % MCV (80-100) fL MCH (25-34) pg MCHC (32-36) g/dL RDW Std Deviation (36.4-46.3) fL RDW Coeff of Amrita (11.5-14.5) % Plt Count (130-400) K/uL MPV (7.4-10.4) fL Immature Gran % (Auto) % Neut % (Auto) % Lymph % (Auto) % [place] % (Auto) % Eos % (Auto) % Baso % (Auto) % Neut # (Auto) (1.4-6.5) K/uL Lymph # (Auto) (1.2-3.4) K/uL [place] # (Auto) (0.11-0.59) K/uL Eos # (Auto) (0-0.5) K/uL Baso # (Auto) (0-0.2) K/uL Immature Gran # (Auto) (0.00-0.02) K/uL Anisocytosis Sodium 139 (136-145) mmol/L Potassium 3.7 (3.5-5.1) mmol/L Chloride 109 H (98-107) mmol/L Carbon Dioxide 24 (21-32) mmol/L Anion Gap 6.0 (3-11) BUN 28 H (7-18) mg/dl Creatinine 1.88 H D (0.6-1.2) mg/dl Est Cr Clr Drug Dosing 34.7 ml/min Est GFR ( Amer) 30.2 Est GFR (Non-Af Amer) 26.0 BUN/Creatinine Ratio 14.6 (10-20) Glucose 103 H (70-99) mg/dl POC Glucose 169 H (70-99) mg/dl Calcium 7.3 L (8.5-10.1) mg/dl Iron 11 L (35-150) mcg/dl Transferrin 228 (200-360) mg/dl Transferrin % Sat 3 L (15-50) % Ferritin 15.6 (8-388) ng/ml Urine Color Urine Appearance (Clear) Urine pH (4.5-7.5) Ur Specific [place] (1.000-1.030) Urine Protein (Negative) Urine Glucose (UA) (Negative) Urine Ketones (Negative) Urine Blood (Negative) Urine Nitrite (Negative) Urine Bilirubin (Negative) Urine Urobilinogen (Negative) Ur Leukocyte Esterase (Negative) Urine RBC (0-4) /hpf Urine WBC (0-5) /hpf Ur Epithelial Cells (0-5) /lpf Urine Bacteria (Negative) Hyaline Casts (0-5) /lpf Blood Type Antibody Screen Crossmatch 01/08/20 01/08/20 01/07/20 Range/Units 07:35 07:34 20:11 WBC 10.00 (4.8-10.8) K/uL RBC 3.07 L (4.2-5.4) M/uL Hgb 7.9 L (12.0-16.0) g/dL Hct 25.1 L (37-47) % MCV 81.8 (80-100) fL MCH 25.7 (25-34) pg MCHC 31.5 L (32-36) g/dL RDW Std Deviation 54.7 H (36.4-46.3) fL RDW Coeff of Amrita 18.6 H (11.5-14.5) % Plt Count 251 (130-400) K/uL MPV 10.7 H (7.4-10.4) fL Immature Gran % (Auto) 0.5 % Neut % (Auto) 77.2 % Lymph % (Auto) 11.3 % [place] % (Auto) 10.3 % Eos % (Auto) 0.5 % Baso % (Auto) 0.2 % Neut # (Auto) 7.72 H (1.4-6.5) K/uL Lymph # (Auto) 1.13 L (1.2-3.4) K/uL [place] # (Auto) 1.03 H (0.11-0.59) K/uL Eos # (Auto) 0.05 (0-0.5) K/uL Baso # (Auto) 0.02 (0-0.2) K/uL Immature Gran # (Auto) 0.05 H (0.00-0.02) K/uL Anisocytosis Present Sodium (136-145) mmol/L Potassium (3.5-5.1) mmol/L Chloride (98-107) mmol/L Carbon Dioxide (21-32) mmol/L Anion Gap (3-11) BUN (7-18) mg/dl Creatinine (0.6-1.2) mg/dl Est Cr Clr Drug Dosing ml/min Est GFR ( Amer) Est GFR (Non-Af Amer) BUN/Creatinine Ratio (10-20) Glucose (70-99) mg/dl POC Glucose 122 H 145 H (70-99) mg/dl Calcium (8.5-10.1) mg/dl Iron (35-150) mcg/dl Transferrin (200-360) mg/dl Transferrin % Sat (15-50) % Ferritin (8-388) ng/ml Urine Color Urine Appearance (Clear) Urine pH (4.5-7.5) Ur Specific [place] (1.000-1.030) Urine Protein (Negative) Urine Glucose (UA) (Negative) Urine Ketones (Negative) Urine Blood (Negative) Urine Nitrite (Negative) Urine Bilirubin (Negative) Urine Urobilinogen (Negative) Ur Leukocyte Esterase (Negative) Urine RBC (0-4) /hpf Urine WBC (0-5) /hpf Ur Epithelial Cells (0-5) /lpf Urine Bacteria (Negative) Hyaline Casts (0-5) /lpf Blood Type Antibody Screen Crossmatch 01/07/20 01/06/20 Range/Units 17:46 07:33 WBC (4.8-10.8) K/uL RBC (4.2-5.4) M/uL Hgb (12.0-16.0) g/dL Hct (37-47) % MCV (80-100) fL MCH (25-34) pg MCHC (32-36) g/dL RDW Std Deviation (36.4-46.3) fL RDW Coeff of Amrita (11.5-14.5) % Plt Count (130-400) K/uL MPV (7.4-10.4) fL Immature Gran % (Auto) % Neut % (Auto) % Lymph % (Auto) % [place] % (Auto) % Eos % (Auto) % Baso % (Auto) % Neut # (Auto) (1.4-6.5) K/uL Lymph # (Auto) (1.2-3.4) K/uL [place] # (Auto) (0.11-0.59) K/uL Eos # (Auto) (0-0.5) K/uL Baso # (Auto) (0-0.2) K/uL Immature Gran # (Auto) (0.00-0.02) K/uL Anisocytosis Sodium (136-145) mmol/L Potassium (3.5-5.1) mmol/L Chloride (98-107) mmol/L Carbon Dioxide (21-32) mmol/L Anion Gap (3-11) BUN (7-18) mg/dl Creatinine (0.6-1.2) mg/dl Est Cr Clr Drug Dosing ml/min Est GFR ( Amer) Est GFR (Non-Af Amer) BUN/Creatinine Ratio (10-20) Glucose (70-99) mg/dl POC Glucose (70-99) mg/dl Calcium (8.5-10.1) mg/dl Iron (35-150) mcg/dl Transferrin (200-360) mg/dl Transferrin % Sat (15-50) % Ferritin (8-388) ng/ml Urine Color Yellow Urine Appearance Clear (Clear) Urine pH 5.5 (4.5-7.5) Ur Specific [place] 1.020 (1.000-1.030) Urine Protein Negative (Negative) Urine Glucose (UA) Negative (Negative) Urine Ketones Negative (Negative) Urine Blood Trace H (Negative) Urine Nitrite Negative (Negative) Urine Bilirubin Negative (Negative) Urine Urobilinogen Negative (Negative) Ur Leukocyte Esterase Negative (Negative) Urine RBC 5-10 H (0-4) /hpf Urine WBC 0-5 (0-5) /hpf Ur Epithelial Cells 5-10 H (0-5) /lpf Urine Bacteria 2+ H (Negative) Hyaline Casts 5-10 H (0-5) /lpf Blood Type O Negative Antibody Screen NEGATIVE Crossmatch See Detail PG Care Time/CCT Total # of Minutes Spent Total Time Spent with Patient: Total time spent is greater than 50% in coordination of care (as documented) at patient's floor/unit and/or counseling patient: Coding Level of Care Code 21372 Subseq Hosp Care Lvl 3 Diagnoses Status post total hip replacement, left Z96.642 Atrial fibrillation I48.91 JULIO (acute kidney injury) N17.9 Essential hypertension I10 Hyperlipidemia E78.5 Hypothyroidism E03.9 Psoriatic arthropathy L40.50 CKD (chronic kidney disease) stage 4, GFR 15-29 ml/min N18.4 GERD (gastroesophageal reflux disease) K21.9 Esophagitis presence: esophagitis presence not specified Postoperative anemia due to acute blood loss D62 Iron deficiency anemia D50.9 DVT prophylaxis Z29.9 (1) GERD (gastroesophageal reflux disease) Esophagitis presence: esophagitis presence not specified Qualified Code(s): K21.9 - Gastro-esophageal reflux disease without esophagitis
--- NOTE | 2020-01-08 14:43 | XCELERA ---
[id number]
[2020-01-08] MEDS: NIFEdipine EXTENDED REL 30 MG TABCR PO SCH (20:13)
[2020-01-08] MEDS: SENNA 8.6 MG TAB PO SCH (20:16)
[2020-01-09] MEDS: HYDROmorphone INJ 0.5 MG/0.5 ML SYR IV PRN ×2 (03:57→10:31)
[2020-01-09] MEDS: ACETAMINOPHEN 500 MG TAB PO SCH (05:42)
[2020-01-09] MEDS: LEVOTHYROXINE SODIUM 100 MCG TABLET PO SCH (05:43)
[2020-01-09] MEDS ORDERED: METOPROLOL TARTRATE 25 MG TAB PO STA (07:43)
[2020-01-09] MEDS: MULTIVITAMIN TAB PO SCH (08:06)
[2020-01-09] MEDS: PANTOprazole 40 MG TAB PO SCH (08:06)
[2020-01-09] MEDS: NITROGLYCERIN 0.4 MG/HR PATCH TD SCH (08:06)
[2020-01-09] MEDS: DULOXETINE HCL 60 MG CAP PO SCH (08:07)
[2020-01-09] MEDS: CHOLECALCIFEROL 1,000 UNITS 25 MCG TAB PO SCH (08:08)
[2020-01-09] MEDS: CETIRIZINE HCL 10 MG TABLET PO SCH (08:08)
[2020-01-09] MEDS: MAGNESIUM OXIDE 400 MG TAB PO SCH (08:09)
[2020-01-09] MEDS: ASPIRIN 81 MG ECTAB PO SCH (08:09)
[2020-01-09] MEDS: OMEGA-3 (PURIFIED FISH OIL) 1 GM CAP PO SCH (08:09)
--- NOTE | 2020-01-09 08:19 | Orthopedic Progress Note ---
Date of Service January 09, 2020 Assessment & Plan (1) Osteoarthritis of left hip: POD #3 s/p Left ZACK WBAT LLE PT/OT DVT prophylaxis--will start Eliquis 2.5 mg BID this AM to be discharged home. Appreciate medicine and cardiology input. Hemovac kept in place. Will try to get drainage to under 50 cc in 24 hours before removing. Pain control. CBC ordered this AM. Will check Hgb prior to d/c. D/C planning--home with home health probably later today. (2) Atrial fibrillation: (3) Postoperative anemia due to acute blood loss: Admission and Anticipated Discharge Date Admission Date: January 07, 2020 Subjective Doing well today. Pain in the hip is controlled with the pain meds. No SOB or wheezing today. Feels the transfusion helped her feel better. Feels the suction on the hemovac is not working. No CP, SOB, LH. Physical Exam Constitutional: well developed and well nourished; no acute distress ENMT: external ear and nose normal, oropharynx normal Neck: trachea midline, no thyromegaly Respiratory: normal respiratory effort, lungs clear to auscultation Cardiovascular: Rate/Rhythm: regular rate and regular rhythm Gastrointestinal (Abdomen): normal bowel sounds, soft, nontender, no hepatosplenomegaly Musculoskeletal: Hip: + surgical incision (left hip: Prevena dressing in place and functioning.) and + surgical drain present (hemovac has drained ~225 cc in 24 hours--losing suction this AM.); no deformity, no skin erythema and no ecchymosis Skin: no rashes, warm and dry Neurologic: normal touch/pain/proprioception Psychiatric: A+Ox3, euthymic affect Speech: normal rate/rhythm/volume of speech Lymphatic: no cervical or axillary lymphadenopathy Results & Data ([facility]) Vital Signs (Past 12 Hours) Vital Signs Temp Pulse Pulse Resp BP Pulse Ox 01/09/20 07:00 124 H 01/09/20 04:13 36.9 C 105 H 18 139/77 96 01/09/20 01:49 71 01/08/20 23:35 37.1 C 72 18 148/82 H 96
[2020-01-09 08:31] LABS: Hematocrit (blood only) 32.2 % (37-47); Hemoglobin 10.3 g/dL (12.0-16.0); Mean Corpuscular Hemoglobin 26.3 pg (25-34); Mean Corpuscular Volume 82.1 fL (80-100); Mean Platelet Volume 10.1 fL (7.4-10.4); Nucleated RBC # (auto) 0.02 K/uL (0-0); Nucleated RBC % (auto) 0.2 %; Platelet Count 277 K/uL (130-400); RDW Coefficient of Variation 17.7 % (11.5-14.5); RDW Standard Deviation 52.5 fL (36.4-46.3); Red Blood Count 3.92 M/uL (4.2-5.4); White Blood Count 10.93 K/uL (4.8-10.8)
[2020-01-09] MEDS ORDERED: APIXABAN 2.5 MG TAB PO SCH (09:00)
[2020-01-09 09:03] LABS: BUN Creatinine Ratio 11.2 (10-20); Creatinine Clr Calc Pharmacy 37.6 ml/min; Est GFR (African American) 33.1; Est GFR (Non-African American) 28.6; Potassium 3.4 mmol/L (3.5-5.1)
--- NOTE | 2020-01-09 09:55 | Nephrology Progress Note ---
Date of Service January 09, 2020 Assessment & Plan (1) JULIO (acute kidney injury): * JULIO was likely hemodynamic injury related to recent surgery and new onset atrial fibrillation. Kidney function has now recovered. Electrolyte balance is acceptable * Urinalysis is negative for significant protein or blood * BP is controlled. Continue to hold Spironolactone and KCl supplement (2) CKD (chronic kidney disease) stage 4, GFR 15-29 ml/min: * Baseline Cr 2.0 due to microvascular disease and hypertensive nephrosclerosis (3) Psoriatic arthropathy: * s/p L ZACK 01/06/20 (4) Anemia: * Venofer 200 mg IV x 1 given 01/08/20 * 2 U PRBC administered 01/08/20 (5) Atrial fibrillation: * NSR this am. Rate controlled Admission and Anticipated Discharge Date Admission Date: January 07, 2020 Subjective Mrs. Vergara was seen & examined in her hospital room this morning. She was transfused 2 U PRBC yesterday. She reports that her L hip drain has clotted and will be removed. Mrs. Vergara has been able to ambulate short distances. Review of Systems Constitutional: no fever Eyes: no problem reported Ear, Nose, Mouth, Throat: no problem reported Respiratory: no dyspnea Cardiovascular: no chest pain and no edema Gastrointestinal: no abdominal pain and no diarrhea/loose stools Genitourinary: no dysuria and no hematuria Musculoskeletal: no back pain Integumentary: no rash Neurologic: no falls and no dizziness Physical Exam Constitutional: not in distress Eyes: PERRL, conjunctivae normal, anicteric sclerae ENMT: external ear and nose normal, oropharynx normal Neck: trachea midline, no thyromegaly Respiratory: normal respiratory effort, lungs clear to auscultation Cardiovascular: Rate/Rhythm: regular rate and regular rhythm Extremities: + edema (trace pretibial edema) Gastrointestinal (Abdomen): normal bowel sounds, soft, nontender, no hepatosplenomegaly Musculoskeletal: Extremities: no cyanosis Skin: no rashes Neurologic: awake; not confused Results & Data ([facility]) Vital Signs (Past 12 Hours) Vital Signs Temp Pulse Pulse Resp BP Pulse Ox 01/09/20 07:24 36.8 C 57 L 18 129/72 92 01/09/20 07:00 124 H 01/09/20 04:13 36.9 C 105 H 18 139/77 96 01/09/20 01:49 71 01/08/20 23:35 37.1 C 72 18 148/82 H 96 Laboratory Results Laboratory Tests 01/08/20 01/09/20 01/09/20 07:35 08:22 08:22 WBC 10.93 H Hgb 10.3 L Hct 32.2 L Plt Count 277 Sodium 140 Potassium 3.4 L Chloride 109 H Carbon Dioxide 26 BUN 20 H Creatinine 1.74 H Glucose 134 H Iron 11 L Ferritin 15.6 PG Care Time/CCT Total # of Minutes Spent Total Time Spent with Patient: Total time spent is greater than 50% in coordination of care (as documented) at patient's floor/unit and/or counseling patient: Coding Level of Care Code 77682 Subseq Hosp Care Lvl 3 Diagnoses JULIO (acute kidney injury) N17.9 CKD (chronic kidney disease) stage 4, GFR 15-29 ml/min N18.4 Psoriatic arthropathy L40.50 Anemia D64.9 Atrial fibrillation I48.91
--- NOTE | 2020-01-09 10:13 | Hospitalist Progress Note ---
Date of Service January 09, 2020 Assessment & Plan (1) Status post total hip replacement, left: S/p left ZACK on 01/05 - Pain management, bowel regimen and DVT ppx w/ ASA 81 mg twice daily for now, switch to Eliquis on discharge, okay with ortho - PT/OT consults, pt is planning on outpatient therapy stable for discharge from medical perspective (2) Atrial fibrillation: -New onset,noted preop and asymptomatic, rates 110-120s Was given one dose metoprolol 12.5mg preoperatively and then had rates in 50s after spontaneous cardioversion to sinus back into afib around 3am this morning, rates 100-120's, no symptoms at all responded well to a dose of Lopressor 12.5mg, rates 90-100 with frequent conversions to sinus bradycardia will plan to use Lopressor 12.5mg BID Eliquis 5mg BID okay for discharge at this time follow up with PCP and cardiology (3) JULIO (acute kidney injury): 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 on POD#1 -held aldactone, dcd toradol now film replacement orderer back to baseline, making urine nephrology consulted, now signing off as she is quickly back to baseline (4) Essential hypertension: -BPs stable -resume Aldactone as JULIO resolved (5) Hyperlipidemia: -Not on statin therapy LDL 123 in 07/2018 (6) Hypothyroidism: -Continue levothyroxine 100 mcg daily TSH normal in 07/2019 (7) Psoriatic arthropathy: -Continue prednisone 10 mg qAM and 5mg qPM no stress dose steroids needed at this time (8) CKD (chronic kidney disease) stage 4, GFR 15-29 ml/min: -baseline film replacement orderer 1.7-2.0, with JULIO but that is now resolved, Cr down to 1.8 -Avoid nephrotoxins and renally reduce medications (9) GERD (gastroesophageal reflux disease): -Continue pantoprazole 40 mg BID (10) Postoperative anemia due to acute blood loss: Hgb dropped to 7.9 transfused 2 units pRBCs Hb up to 10.3 today, stable (11) Iron deficiency anemia: hgb low as above from chronic disease, Fe deficiency is severe at transferrin sat 3%, ferritin only 15, and with acute blood loss anemia also from surgery -transfuse 2 units pRBCs today also received IV Venofer x 1 dose -follow CBC -may need GI workup as outpt (12) DVT prophylaxis: - teds, ASA 81 mg twice daily while admitted, d/c on Eliquis 5mg BID CODE: Full code Dispo: safe for discharge today Admission and Anticipated Discharge Date Admission Date: January 07, 2020 Subjective patient feeling fine this morning, no chest pain, no palpitations, no dyspnea no fever/chills, hip pain is well controlled reviewed labs, Hb 10, K 3.4, Cr down to baseline of 1.74 on monitor she flipped back into afib around 3am with tachycardia, rates 100- 120's gave a dose of Lopressor 12.5mg this morning, rates around 100 when in afib, having short runs of sinus rhythm/bradycardia will place on Lopressor 12.5mg BID and Eliquis 2.5mg BID will be safe for discharge as we will employ a rate control strategy and anticoagulation patient feels good, wants to go home, very motivated she is still waiting to move her bowels but taking Senokot and well hydrated Review of Systems Review of Systems: All systems reviewed & are unremarkable except as noted in Subjective Cardiovascular: no chest pain, no palpitations, no syncope and no edema Gastrointestinal: + constipation Musculoskeletal: + joint pain (hip pain) Physical Exam Constitutional: well developed, well nourished and + overweight; no acute distress Eyes: PERRL, conjunctivae normal, anicteric sclerae ENMT: external ear and nose normal, oropharynx normal Neck: trachea midline, no thyromegaly Respiratory: normal respiratory effort, lungs clear to auscultation Cardiovascular: Rate/Rhythm: + tachycardic (100's) and + irregularly irregular Heart Sounds: normal S1 and normal S2; no murmur Vessels: normal peripheral pulses; no JVD Extremities: normal capillary refill; no edema Gastrointestinal (Abdomen): normal bowel sounds, soft, nontender, no hepatosplenomegaly Musculoskeletal: Head/Neck/Chest: normocephalic, head atraumatic and neck supple Extremities: + limited ROM of extremities (hip due to pain/surgery) and strength 5/5 throughout; no cyanosis and no clubbing Skin: no rashes, warm and dry Neurologic: patellar DTR's 2+ bilat, sensation intact and PERRL, EOMI, accommodation nl, no face palsy, no dysarthria Psychiatric: A+Ox3, euthymic affect Lymphatic: no cervical or axillary lymphadenopathy Results & Data Results & Data ([facility]) Vital Signs (Past 12 Hours) Vital Signs Temp Pulse Pulse Resp BP Pulse Ox 01/09/20 07:24 36.8 C 57 L 18 129/72 92 01/09/20 07:00 124 H 01/09/20 04:13 36.9 C 105 H 18 139/77 96 01/09/20 01:49 71 01/08/20 23:35 37.1 C 72 18 148/82 H 96 Laboratory Results Laboratory Results - last 24 hr 01/06/20 01/08/20 01/08/20 07:33 07:35 11:20 WBC RBC Hgb Hct MCV MCH MCHC RDW Std Deviation RDW Coeff of Amrita Plt Count MPV Absolute Nucleated RBC Nucleated RBC % (auto) Sodium Potassium Chloride Carbon Dioxide Anion Gap BUN Creatinine Est Cr Clr Drug Dosing Est GFR ( Amer) Est GFR (Non-Af Amer) BUN/Creatinine Ratio Glucose POC Glucose 169 H Calcium Iron 11 L Transferrin 228 Transferrin % Sat 3 L Ferritin 15.6 Blood Type O Negative Antibody Screen NEGATIVE Crossmatch See Detail 01/08/20 01/08/20 01/09/20 16:32 20:32 08:08 WBC RBC Hgb Hct MCV MCH MCHC RDW Std Deviation RDW Coeff of Amrita Plt Count MPV Absolute Nucleated RBC Nucleated RBC % (auto) Sodium Potassium Chloride Carbon Dioxide Anion Gap BUN Creatinine Est Cr Clr Drug Dosing Est GFR ( Amer) Est GFR (Non-Af Amer) BUN/Creatinine Ratio Glucose POC Glucose 161 H 211 H 136 H Calcium Iron Transferrin Transferrin % Sat Ferritin Blood Type Antibody Screen Crossmatch 01/09/20 01/09/20 08:22 08:22 WBC 10.93 H RBC 3.92 L Hgb 10.3 L Hct 32.2 L MCV 82.1 MCH 26.3 MCHC 32.0 RDW Std Deviation 52.5 H RDW Coeff of Amrita 17.7 H Plt Count 277 MPV 10.1 Absolute Nucleated RBC 0.02 H Nucleated RBC % (auto) 0.2 Sodium 140 Potassium 3.4 L Chloride 109 H Carbon Dioxide 26 Anion Gap 5.0 BUN 20 H Creatinine 1.74 H Est Cr Clr Drug Dosing 37.6 Est GFR ( Amer) 33.1 Est GFR (Non-Af Amer) 28.6 BUN/Creatinine Ratio 11.2 Glucose 134 H POC Glucose Calcium 8.0 L Iron Transferrin Transferrin % Sat Ferritin Blood Type Antibody Screen Crossmatch Medications Administered Current Inpatient Medications Acetaminophen (Acetaminophen 500 Mg Tab) 1,000 mg PO Q8 CAROL Stop: 02/05/20 21:59 Last Admin: 01/09/20 05:42 Dose: 1,000 mg Documented by: Al Hydrox/Mg Hydrox/Simethicone (Aluminum/Magnesium Susp 30 Ml Udc) 15 ml PO Q4H PRN PRN Reason: Heartburn Stop: 02/05/20 16:31 Apixaban (Apixaban 2.5 Mg Tab) 2.5 mg PO BID CAROL Stop: 02/08/20 08:59 Betamethasone Valerate (Pt's Own Med: Betamethasone Lynda 0.1% Cr 15 Gm) 1 appln TOP BID PRN PRN Reason: PSORIASIS Stop: 02/06/20 10:06 Last Admin: 01/07/20 21:42 Dose: 1 appln Documented by: Bisacodyl (Bisacodyl 10 Mg Supp) 10 mg MA DAILY PRN PRN Reason: Constipation Stop: 02/05/20 16:31 Cetirizine HCl (Cetirizine Hcl 10 Mg Tablet) 5 mg PO BID CAROL Stop: 02/05/20 20:59 Last Admin: 01/09/20 08:08 Dose: 5 mg Documented by: Dicyclomine HCl (Dicyclomine Hcl 20 Mg Tab) 20 mg PO TID PRN PRN Reason: Constipation Stop: 02/05/20 16:31 Diphenhydramine HCl (Diphenhydramine Hcl 25 Mg Cap) 25 mg PO Q8H PRN PRN Reason: Itching Stop: 02/05/20 16:31 Duloxetine HCl (Duloxetine Hcl 60 Mg Cap) 60 mg PO QAM CAROL Stop: 02/06/20 08:59 Last Admin: 01/09/20 08:07 Dose: 60 mg Documented by: Fish Oil (Tarrs-3 (Purified Fish Oil) 1 Gm Cap) 1 gm PO BID CAROL Stop: 02/05/20 20:59 Last Admin: 01/09/20 08:09 Dose: 1 gm Documented by: Hydromorphone HCl (Hydromorphone Inj 0.5 Mg/0.5 Ml Syr) 0.5 mg IV Q4H PRN PRN Reason: Pain or Pre PT Stop: 01/20/20 16:31 Last Admin: 01/09/20 03:57 Dose: 0.5 mg Documented by: Levalbuterol HCl (Levalbuterol Hcl 0.63 Mg/3 Ml Neb) 0.63 mg INH Q4R PRN PRN Reason: Cough Stop: 02/05/20 16:31 Levothyroxine Sodium (Levothyroxine Sodium 100 Mcg Tablet) 100 mcg PO DAILYBB [facility] Stop: 02/06/20 06:29 Last Admin: 01/09/20 05:43 Dose: 100 mcg Documented by: Magnesium Hydroxide (Magnesium Hydroxide Susp 30 Ml Udc) 30 ml PO Q6H PRN PRN Reason: Constipation Stop: 02/05/20 16:31 Magnesium Oxide (Magnesium Oxide 400 Mg Tab) 400 mg PO BID [facility] Stop: 02/05/20 20:59 Last Admin: 01/09/20 08:09 Dose: 400 mg Documented by: Metoclopramide HCl (Metoclopramide Hcl Inj 5 Mg/Ml 2 Ml Vial) 10 mg IV Q6H PRN PRN Reason: Nausea And Vomiting Stop: 02/05/20 16:31 Miscellaneous (*Azelastine*Order Awaiting Action) 1 ea N/A QS [facility] Stop: 02/06/20 00:00 Last Admin: 01/09/20 08:01 Dose: Not Given Documented by: Miscellaneous (Remove Nitro-Dur Patch) 1 ea N/A DAILY@2100 [facility] Stop: 02/05/20 20:59 Last Admin: 01/08/20 20:21 Dose: 1 ea Documented by: Multivitamins (Multivitamin Tab) 1 tab PO QAM [facility] Stop: 02/06/20 08:59 Last Admin: 01/09/20 08:06 Dose: 1 tab Documented by: Naloxone HCl (Naloxone Hcl 0.4 Mg/1 Ml Vial/Carp) 0.1 mg IV Q5M PRN PRN Reason: Oversedation/Resp Depression Stop: 02/05/20 16:31 Nifedipine (Nifedipine Extended Rel 30 Mg Tabcr) 90 mg PO HS [facility] Stop: 02/05/20 20:59 Last Admin: 01/08/20 20:13 Dose: 90 mg Documented by: Nitroglycerin (Nitroglycerin 0.4 Mg/Hr Patch) 1 patch TD DAILY CAROL Stop: 02/06/20 08:59 Last Admin: 01/09/20 08:06 Dose: 1 patch Documented by: Ondansetron HCl (Ondansetron Inj 2 Mg/Ml 2 Ml Vial) 4 mg IV Q6H PRN PRN Reason: Nausea And Vomiting Stop: 02/05/20 16:31 Pantoprazole Sodium (Pantoprazole 40 Mg Tab) 40 mg PO BIDM [facility] Stop: 02/05/20 17:29 Last Admin: 01/09/20 08:06 Dose: 40 mg Documented by: Potassium Chloride (Potassium Chloride 20 Meq Tabcr) 20 meq PO BID CAROL Stop: 02/05/20 20:59 Last Admin: 01/07/20 07:58 Dose: 20 meq Documented by: Prednisone (Prednisone 5 Mg Tab) 5 mg PO HS [facility] Stop: 02/08/20 20:59 Sennosides (Senna 8.6 Mg Tab) 17.2 mg PO HS [facility] Stop: 02/05/20 20:59 Last Admin: 01/08/20 20:16 Dose: 17.2 mg Documented by: Spironolactone (Spironolactone 25 Mg Tab) 25 mg PO BID17 [facility] Stop: 02/05/20 17:59 Last Admin: 01/07/20 07:35 Dose: 25 mg Documented by: Vitamin D (Cholecalciferol 1,000 Units 25 Mcg Tab) 1,000 units PO QAM [facility] Stop: 02/06/20 08:59 Last Admin: 01/09/20 08:08 Dose: 1,000 units Documented by: PG Care Time/CCT Total # of Minutes Spent Total Time Spent with Patient: Total time spent is greater than 50% in coordination of care (as documented) at patient's floor/unit and/or counseling patient: Coding Level of Care Code 74610 Subseq Hosp Care Lvl 3 Diagnoses Status post total hip replacement, left Z96.642 Atrial fibrillation I48.91 JULIO (acute kidney injury) N17.9 Essential hypertension I10 Hyperlipidemia E78.5 Hypothyroidism E03.9 Psoriatic arthropathy L40.50 CKD (chronic kidney disease) stage 4, GFR 15-29 ml/min N18.4 GERD (gastroesophageal reflux disease) K21.9 Esophagitis presence: esophagitis presence not specified Postoperative anemia due to acute blood loss D62 Iron deficiency anemia D50.9 DVT prophylaxis Z29.9 (1) GERD (gastroesophageal reflux disease) Esophagitis presence: esophagitis presence not specified Qualified Code(s): K21.9 - Gastro-esophageal reflux disease without esophagitis
[2020-01-09] MEDS ORDERED: predniSONE 5 MG TAB PO SCH (21:00)
--- NOTE | 2020-01-19 17:30 | Discharge Summary ---
Date of Service January 19, 2020 Admission HPI Per Admitting Provider This is a patient with chronic left hip pain that has been treated conservatively for DJD of the left hip. She has failed all conservative managements. She recently had a right hip ZACK and has been doing well. She is n ow being set up for a left ZACK. Principal Diagnosis left hip osteoarthritis Discharge Exam Constitutional well developed and well nourished; no acute distress ENMT external ear and nose normal, oropharynx normal Neck trachea midline, no thyromegaly Respiratory normal respiratory effort, lungs clear to auscultation Cardiovascular Rate/Rhythm: regular rate and regular rhythm Gastrointestinal (Abdomen) normal bowel sounds, soft, nontender, no hepatosplenomegaly Musculoskeletal Hip: + surgical incision (left hip: Prevena dressing in place and functioning.) and + surgical drain present (hemovac has drained ~225 cc in 24 hours--losing suction this AM.); no deformity, no skin erythema and no ecchymosis Skin no rashes, warm and dry Neurologic normal touch/pain/proprioception Psychiatric A+Ox3, euthymic affect Speech: normal rate/rhythm/volume of speech Lymphatic no cervical or axillary lymphadenopathy Discharge Data Allergies Allergy/AdvReac Type Severity Reaction Status Date / Time codeine Allergy Severe Anaphylaxis Verified 01/19/20 14:42 celecoxib [From Celebrex] Allergy Intermediate RASH Verified 01/19/20 14:42 cephalexin [From Keflex] Allergy Intermediate Rash Verified 01/19/20 14:42 Diclopak Allergy Intermediate CREATINE Verified 04/06/17 09:34 ELEVATION hydrocodone Allergy Intermediate Rash Verified 01/19/20 14:42 Iodinated Contrast Media Allergy Intermediate RASH Verified 01/19/20 14:42 nickel Allergy Intermediate Rash Verified 01/19/20 14:42 oxycodone Allergy Intermediate Rash Verified 01/19/20 14:42 Sulfa (Sulfonamide Allergy Intermediate RASH TO Verified 01/19/20 14:42 Antibiotics) SULFA DRUGS tetracycline Allergy Intermediate RASH Verified 01/19/20 14:42 capsaicin AdvReac Mild CREATINE Verified 01/19/20 14:42 ELEVATION diclofenac AdvReac Mild CREATINE Verified 01/19/20 14:42 ELEVATION propylene glycol AdvReac Mild CREATINE Verified 01/19/20 14:42 ELEVATION "PREP WITH BLUE DYE" Allergy Intermediate Rash Uncoded 01/19/20 14:42 Consultations 01/06/20 16:32 Consult Internal Medicine Routine 01/07/20 08:00 Consult Case Management - Discharge Planning Routine 01/07/20 09:26 Consult Cardiology Routine 01/07/20 10:49 Consult Nephrology Routine Procedures Performed Operation Date: 01/06/20 09:20 Actual Procedures p Left Total Hip Arthroplasty(Left) - Kimani Gonzales DO Hospital Course (1) Osteoarthritis of left hip: Patient was admitted and underwent the noted procedure. She was admitted to telemetry to follow the preoperative A fib noted with the patient. She progressed well from the hip stand point but she had post operative anemia and was transfused 2 units of PRBC on post op day 2. She was doing well on POD #3 and was discharged home with home health later that day. POD #3 s/p Left ZACK WBAT LLE PT/OT DVT prophylaxis--will start Eliquis 2.5 mg BID this AM to be discharged home. Appreciate medicine and cardiology input. Hemovac kept in place. Will try to get drainage to under 50 cc in 24 hours before removing. Pain control. CBC ordered this AM. Will check Hgb prior to d/c. D/C planning--home with home health probably later today. (2) Atrial fibrillation: (3) Postoperative anemia due to acute blood loss: Total Time Total Time Spent Total Time Spent (In Minutes): 60 Total Time Includes: Examination of the Patient, Discharge Planning and Medication Reconciliation Discharge Plan Discharge Items Patient Disposition: Home - Home Health Services Reason For Visit: LEFT HIP OSTEOARTHRITIS Discharge Diagnosis: left hip osteoarthritis Activity: Per Instructions section Non-emergency contact: Surgeon Call non-emergency contact if: your pain is not controlled, your pain is worsening and your temperature is above 101 Follow-up/Referrals: Shelton Melendez MD [Primary Care Provider] - (one week, needs seen for new onset afib follow up) Pato Vergara MD [Physician] - (3-4 weeks, new onset afib follow up) Diet: Regular Addtl Attending Provider Instructions: ACTIVITY RECOMMENDATIONS: SELF CARE INSTRUCTIONS AFTER TOTAL HIP REPLACEMENT Until the incision and soft tissues around your hip have healed, there is a possibility that the hip prosthesis could dislocate. A. Observe the following precautions to prevent dislocation: 1. Don't bend your hip greater than 90 degrees. 2. Avoid crossing your legs or ankles while standing or lying. 3. Sit with your feet placed 6 inches apart. 4. When sitting, keep your knees below your hips. Sit on a firm surface, avoid deep, soft chairs and couches. Use an elevated toilet seat in the bathroom. 5. Don't bend over at the waist. Use a long handled shoehorn and a sock aid to help you put on your shoes and socks. A rig supervisor can help you strip picker objects that are too high or too low to reach. 6. Keep car riding to a minimum for at least one month after surgery. B. Your balance may be shaky for a while. Use crutches or a walker until directed by your doctor. C. Use hand rails when walking on stairs. D. Wear low heeled shoes with non-slip soles. E. Be sure that your floors are free of things that could trip you - throw rugs, electrical cords, small objects. Avoid wet and waxed floors, especially with crutches and canes. F. Try to walk several times a day with rest periods between. G. Continue with all the exercises taught to you in the hospital. Again, make walking a part of your daily routine. H. It is okay to shower if minimal to no drainage from incision. No baths. Do not soak wound. I. Physical Therapy as instructed by your Physician. J. Prevena dressing: You have a Prevena dressing on your surgical wound. It will remain in place for 7 days from surgery. You will be provided with a booklet with the do's and don'ts with the dressing in place. After 7 days, the dressing may be removed. If there is drainage from the surgical incision, you may cover the wound with dry dressings SPECIAL CARE INSTRUCTIONS: VERY IMPORTANT TO READ AND REVIEW A. You may still be at risk for phlebitis and blood clots. 1. Wear surgical stockings (JAQEULINE hose) for one month, 20 hours daily, after surgery to improve circulation and reduce swelling. 2. Take Eliquis (blood thinning medications), as directed by your doctor. 3. Have a pro-time (blood test) drawn according to your doctor's instructions. B. We encourage and will assist you in choosing a home-health agency of your choice. Home health nurses and therapists will monitor your temperature, wound healing and progress in exercise and walking. Home health nurses may also draw the blood for the pro-time test. They may instruct you in decreasing or increasing the amount of Coumadin you take. C. You must take antibiotics before having dental work, bladder, bowel and other surgery. Your doctor will provide you with a permanent card to carry describing precautions. D. Call [facility] if you have a temperature of 101 or greater, redness or swelling around the incision, cloudy drainage from incision, or sudden increase in pain in your hip, not relieved by your regular pain medication. E. Please call the office at if you have any concerns or questions about your operation or recovery. FOLLOW UP VISIT: If appointment is not already scheduled: Please call [facility] to make a follow-up appointment for 2 weeks after your surgery at . Addtl Marketing Content Specialist Provider Instructions: Atrial fibrillation: will utilize rate control by using Lopressor 12.5mg twice a day, Eliquis 5mg twice a day is for stroke prevention/anticoagulation should be seen by cardiology in several weeks for follow up can be seen by PCP in one week to check on heart rate and rhythm, medication check Pending Studies at Discharge: No Stand-Alone Forms: My [facility] [employer] [place], Smoking Cessation Medications and DC Order Prescriptions: New metoprolol tartrate 25 mg tablet 12.5 mg PO BID Qty: 15 RF: 3 Eliquis 5 mg tablet 5 mg PO BID Qty: 60 RF: 3 Continued prednisone 5 mg tablet 5 mg PO HS Qty: 90 RF: 3 (DME) nebulizers misc See Dose Instructions .ROUTE .MEDSUPPLY Qty: 1 RF: 0 (DME) Accu-Chek Guide test strips Strip See Rx Instructions .ROUTE .MEDSUPPLY Qty: 100 RF: 3 potassium chloride [K-Tab] 20 mEq tablet extended release 20 meq PO BID Qty: 180 RF: 3 (DME) blood-glucose meter [Accu-Chek Guide Glucose Meter] misc See Dose Instructions .ROUTE .MEDSUPPLY Qty: 1 RF: 0 (DME) lancets [Accu-Chek Multiclix Lancet] [facility] See Dose Instructions .ROUTE .MEDSUPPLY Qty: 50 RF: 2 pantoprazole 40 mg tablet,delayed release (DR/EC) 40 mg PO BID Qty: 60 RF: 5 levalbuterol HCl [Xopenex] 0.63 mg/3 mL solution for nebulization 0.63 mg INHALATION Q4H PRN (Reason: Cough) RF: 0 levothyroxine [Synthroid] 100 mcg tablet 100 mcg PO QAM RF: 0 cetirizine [Zyrtec] 10 mg Tablet 5 mg PO BID RF: 0 betamethasone valerate 0.1 % cream 1 applic TOPICAL UD PRN (Reason: PSORIASIS ) RF: 0 duloxetine [Cymbalta] 60 mg capsule,delayed release(DR/EC) 60 mg PO QAM RF: 0 cholecalciferol (vitamin D3) [Vitamin D3] 1,000 unit Capsule 1,000 unit PO QAM RF: 0 omega 9-rrt-[id number]-fish oil [Fish Oil] 1,000 mg (120 mg-180 mg) Capsule 1,000 mg PO BID RF: 0 magnesium oxide 400 mg magnesium Tablet 400 mg PO BID RF: 0 azelastine 137 mcg (0.1 %) aerosol,spray 2 spray INTRANASAL DAILY PRN (Reason: ALLERGIES) RF: 0 nifedipine 90 mg tablet extended release 90 mg PO HS RF: 0 No Action nitroglycerin [Nitro-Dur] 0.4 mg/hr patch 24 hour 1 patch TRANSDERMAL DAILY Qty: 30 RF: 1 spironolactone [Aldactone] 25 mg tablet 25 mg PO BID RF: 0 acetaminophen 500 mg tablet 1,000 mg PO Q12 RF: 0 Discharge Orders: Discharge Order (Routine); Ordered 01/09/20 Ordered By: Shravan Martínez/Other Patient Handouts: Managing Type 2 Diabetes Admission Data Admit Date/Time: 01/07/20 12:16 Attending Provider: Kimani Gonzales Admit Provider: Kimani Gonzales Primary Care Provider: Shelton Melendez Other Providers: Yoel Pelaez ; Michelle Degroot ; Irineo Funk ; Allyson Palacios ; Dionte Lacey ; Kirk Ca ; José Miguel Rapp ; Cleopatra Chicas ; Katty Elam ; Leny Larsen ; Kris Escobar ; Chaya Diaz ; Bozena Alonso ; Rohith Adams ; Blaze Vee ; Dawit Seay ; Dionne Melendez ; Krista Florence ; Pato Philippe ; Hunter Alaniz ; Patrice Barney ; Jez Doran ; Krissy Gamboa ; Arlette Gamboa ; Will Lezama ; Anitha Diaz ; Jaquan Castro ; Jose Angel Otto ; Shania Farah ; Claudy Beltran ; Pato Vergara ; Mike Bolton ; [facility] Other Interventions: Discharge Summary Assessment (RN) Last Done: 01/09/20 13:51
== END 2020-01-09 13:53 | disposition home health service (06) | DRG 470 ==
LOC: 2W 07:10 → ASU 07:10 → 2N 01-09 08:13

== ENCOUNTER 2020-03-12 06:59 | Observation (INO) ==
[2020-03-12] MEDS ORDERED: ONDANSETRON INJ 2 MG/ML 2 ML VIAL IV STA (07:23)
[2020-03-12] MEDS ORDERED: ACETAMINOPHEN 1000 MG/100 ML IV IV STA (07:23)
--- NOTE | 2020-03-12 07:29 | Emergency Department Note ---
Impression & Plan Lower abdominal pain, Abnormal abdominal CT scan ED Provider Note NAME: FRANCA LEAL AGE: 74 SEX: F : 1945 ARRIVES VIA: Walk-In INFORMANT: [Patient] ED PROVIDER(S): [Peña Noel MD] CHIEF COMPLAINT: Abdominal pain HISTORY OF PRESENT ILLNESS: The patient is a 74-year-old female who awoke this morning with right lower quadrant abdominal pain. The pain is sharp like a knife and radiates to the back. It is a 6/10. It does worsen with movement. She has some slight nausea, no vomiting. She has had the pain now for 1 hour and 15 minutes. There has been no trauma, no bowel or urinary complaints. She states she has had similar pain before but it only lasted for a few seconds, this has been more persistent. The patient has not had any recent issues or problems. She had no pain last evening. No cough or congestion. She did have someone drive her to the hospital when the pain was not improving. Of note, the patient has had a hysterectomy, no other abdominal surgeries. REVIEW OF SYSTEMS: See HPI for pertinent positives and negatives. A total of ten systems were reviewed and were otherwise negative. PMHx/PSHx: See Below SOCIAL HISTORY: See Below. PHYSICAL EXAM: GENERAL: Patient is in no acute distress. HEENT: No acute trauma, normocephalic atraumatic, mucous membranes moist, no nasal congestion, no scleral icterus. NECK: No stridor, no adenopathy, no meningismus, trachea is midline. LUNGS: Clear to auscultation bilaterally, no wheeze, no rhonchi, breath sounds equal. HEART: 2/6 systolic murmur, regular rate and rhythm. ABDOMEN: Soft, moderately tender in both lower quadrants but primarily in the right lower quadrant, bowel sounds positive, no hernias, no peritonitis. EXTREMITIES: No cyanosis or edema, full range of motion of all the joints without pain or difficulty, no signs for acute trauma. NEUROLOGIC: Oriented x 3, no acute motor or sensory deficits, no focal weakness. SKIN: No rash, no jaundice, no diaphoresis. Back: No flank discomfort to percussion. DIFFERENTIAL DIAGNOSIS: Appendicitis, ovarian cyst, ovarian torsion, infections, diverticulitis, UTI, obstruction, mesenteric ischemia, aortic pathology, inflammatory bowel disease, renal colic, PUD, pancreatitis, biliary pathology, hernia, volvulus, constipation, as well as other pathologies. EMERGENCY DEPARTMENT COURSE/PROCEDURES: MEDICAL DECISION MAKING: There is no leukocytosis or concerning anemia. There is a normal platelet count. Creatinine is elevated 2.41, the patient has a history of chronic renal insufficiency. Alk phos slightly elevated, the remaining liver enzymes are unremarkable. No evidence for pancreatitis. Urinalysis does not show infection. Abdominal and pelvis CT shows an abnormality to the cecum thought possibly consistent with an early cecal volvulus. No evidence for appendicitis although the appendix could not be well seen. There was no free air. The patient presents with severe lower abdominal pain. Work-up suggests a possible early cecal volvulus. I did consult general surgery. The patient was evaluated by the surgical team. Hospitalization under the medical service with a surgical and GI consult was recommended. No acute surgical intervention was recommended. The patient received IV saline, she was given IV Tylenol for pain, IV Zofran for nausea. I spoke to the patient about her findings, she understands the need for h ospitalization. I did speak with case management. The on-call hospitalist was consulted. Past Med/Surg History Medical History Chronic steroid use FOR PSORITRIC ARTHRITIS CKD (chronic kidney disease) stage 4, GFR 15-29 ml/min baseline creatinine 2.0-2.2 range; nephrology (Dr. Stevenson) monitoring Esophageal dysmotility Esophageal spasm Gastric polyp GERD (gastroesophageal reflux disease) CONTROLLED WITH MEDS Hearing loss, right DEAF RIGHT EAR Hiatal hernia HTN (hypertension) Hyperlipidemia Hypothyroidism Iron deficiency anemia Irritable bowel syndrome Obesity Peptic ulcer disease Polyneuropathy Psoriatic arthropathy Restless leg syndrome Schatzki's ring Seasonal allergies Sometimes gets bronchitis, uses nebulizer for this and allergies Spinal meningioma On c-spine- follows with [facility] neurosurgery specialist (Dr. Ken)- under surveillance/stable/no indication for surgical intervention Tinnitus of right ear Type II diabetes mellitus diet controlled Varicose veins of legs Surgical History H/O thyroidectomy History of arthroscopy RT/LEFT KNEE History of arthroscopy of right shoulder History of cardiac cath X2; 10+ YEARS AGO (NO STENTS) History of cataract extraction RT/LEFT History of cholecystectomy History of colonoscopy History of dilatation and curettage History of esophagogastroduodenoscopy (EGD) History of foot surgery RT FOOT FUSION History of lumbar fusion History of tonsillectomy and adenoidectomy History of tooth extraction History of total abdominal hysterectomy and bilateral salpingo-oophorectomy History of total hip arthroplasty RIGHT 05/27/19. Complicated by post-op seroma requiring multiple needle aspirations.LEFT HIP 01/10/20 History of total knee arthroplasty RIGHT Schatzki's ring HX S/P EGD WITH DILATION (2017) Status post total replacement of left shoulder hx of Family History Mother Hypertension Arthritis Father Hypertension Lung cancer Family/Other Colon cancer Unknown Hypertension Allergies Breast cancer Brother Cancer Denies family history of Ovarian cancer Prostate cancer Diabetes Myocardial infarction Stroke Social History Smoking Status: Never smoker Cigarettes Per Day: QUIT AGE 26; Second Hand Exposure: No; Hx Alcohol Use: Yes Alcohol type: wine Hx Substance Use: No Preferred Language: Bulgarian Communication Ability: Effective Visual Impairment: No Limitations Hearing Ability: Hard of Hearing 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 Safe at Home: Yes caffeine: Yes Dental Care, Regularly: Yes Physical Activity Frequency: Does not Exercise Physical Activity Frequency Comment: Hip problems Seatbelt Use: always Sunscreen Use: No Assistive Devices: None Allergies Allergies Allergy/AdvReac Type Severity Reaction Status Date / Time codeine Allergy Severe Anaphylaxis Verified 03/12/20 07:31 celecoxib [From Celebrex] Allergy Intermediate RASH Verified 03/12/20 07:31 cephalexin [From Keflex] Allergy Intermediate Rash Verified 03/12/20 07:31 Diclopak Allergy Intermediate CREATINE Verified 04/06/17 09:34 ELEVATION hydrocodone Allergy Intermediate Rash Verified 03/12/20 07:31 Iodinated Contrast Media Allergy Intermediate RASH Verified 03/12/20 07:31 nickel Allergy Intermediate Rash Verified 03/12/20 07:31 oxycodone Allergy Intermediate Rash Verified 03/12/20 07:31 Sulfa (Sulfonamide Allergy Intermediate RASH TO Verified 03/12/20 07:31 Antibiotics) SULFA DRUGS tetracycline Allergy Intermediate RASH Verified 03/12/20 07:31 capsaicin AdvReac Mild CREATINE Verified 03/12/20 07:31 ELEVATION diclofenac AdvReac Mild CREATINE Verified 03/12/20 07:31 ELEVATION propylene glycol AdvReac Mild CREATINE Verified 03/12/20 07:31 ELEVATION "PREP WITH BLUE DYE" Allergy Intermediate Rash Uncoded 03/12/20 07:31 Home Meds Home Medications Medication Instructions Recorded Confirmed cholecalciferol (vitamin D3) 1,000 unit PO QAM 07/26/18 03/12/20 [Vitamin D3] magnesium oxide 400 mg PO BID 07/26/18 03/12/20 omega 3-opn-rmd-fish oil [Fish Oil] 1,000 mg PO BID 07/26/18 03/12/20 azelastine 137 mcg (0.1 %) nasal 2 spray INTRANASAL DAILY PRN ml 11/23/18 03/12/20 spray aerosol nifedipine 90 mg PO HS 05/02/19 03/12/20 cetirizine [Zyrtec] 5 mg PO BID 08/22/19 03/12/20 levalbuterol HCl [Xopenex] 0.63 mg INHALATION Q4H PRN 08/22/19 03/12/20 levothyroxine [Synthroid] 100 mcg PO QAM 08/22/19 03/12/20 betamethasone valerate 1 applic TOPICAL UD PRN 11/30/19 03/12/20 duloxetine [Cymbalta] 60 mg PO QAM 11/30/19 03/12/20 acetaminophen 1,000 mg PO Q12 01/16/20 03/12/20 Previous Rx's Medication Instructions Recorded pantoprazole 40 mg tablet,delayed 40 mg PO BID #60 tab 08/24/19 release potassium chloride 20 mEq 20 meq PO BID #180 tab 01/02/20 tablet,extended release apixaban [Eliquis] 5 mg PO BID #60 tab 01/09/20 nitroglycerin 0.4 mg/hr 1 patch TRANSDERMAL DAILY #30 ea 01/11/20 transdermal 24 hour patch spironolactone 25 mg tablet 25 mg PO BID #180 tab 01/24/20 metoprolol succinate 25 mg capsule 25 mg PO DAILY #90 ea 02/08/20 sprinkle, ext. release 24 hr prednisone 5 mg tablet 5 mg PO HS #90 tab 03/02/20 Results & Data (ED) Vital Signs Vital Signs - 24 hr 03/12/20 08:13 Pulse Rate [Right Finger] 49 L Respiratory Rate 20 Respiratory Effort / Characteristics Non-Labored Spontaneous Respiratory Depth Normal Respiratory Pattern Regular Blood Pressure [Right Arm] 124/69 Blood Pressure Mean [Right Arm] 87 Pulse Oximetry 92 Oxygen Delivery Method Room Air Home Medications Current Medication List: was personally reviewed by me Laboratory Data Attestation: I reviewed the patient's lab results. Result diagrams: 03/13/20 02:29 03/13/20 02:29 Lab Results 03/12/20 03/12/20 Range/Units 07:30 07:30 WBC 6.20 (4.8-10.8) K/uL RBC 4.25 (4.2-5.4) M/uL Hgb 12.0 (12.0-16.0) g/dL Hct 37.4 (37-47) % MCV 88.0 (80-100) fL MCH 28.2 (25-34) pg MCHC 32.1 (32-36) g/dL RDW Std Deviation 59.6 H (36.4-46.3) fL RDW Coeff of Amrita 18.4 H (11.5-14.5) % Plt Count 286 (130-400) K/uL MPV 10.6 H (7.4-10.4) fL Immature Gran % (Auto) 0.5 % Neut % (Auto) 65.9 % Lymph % (Auto) 24.4 % Ashley % (Auto) 5.5 % Eos % (Auto) 3.2 % Baso % (Auto) 0.5 % Neut # (Auto) 4.09 (1.4-6.5) K/uL Lymph # (Auto) 1.51 (1.2-3.4) K/uL Ashley # (Auto) 0.34 (0.11-0.59) K/uL Eos # (Auto) 0.20 (0-0.5) K/uL Baso # (Auto) 0.03 (0-0.2) K/uL Immature Gran # (Auto) 0.03 H (0.00-0.02) K/uL Sodium 139 (136-145) mmol/L Potassium 4.6 (3.5-5.1) mmol/L Chloride 106 (98-107) mmol/L Carbon Dioxide 25 (21-32) mmol/L Anion Gap 8.0 (3-11) BUN 23 H (7-18) mg/dl Creatinine 2.41 H (0.6-1.2) mg/dl Est Cr Clr Drug Dosing 27.4 ml/min Est GFR ( Amer) 22.3 Est GFR (Non-Af Amer) 19.3 BUN/Creatinine Ratio 9.6 L (10-20) Glucose 144 H (70-99) mg/dl Calcium 9.7 (8.5-10.1) mg/dl Total Bilirubin 0.3 (0.2-1) mg/dl AST 15 (15-37) U/L ALT 21 (12-78) U/L Alkaline Phosphatase 203 H (45-117) U/L Total Protein 7.9 (6.4-8.2) gm/dl Albumin 3.1 L (3.4-5.0) gm/dl Globulin 4.8 H (2.5-4.0) gm/dl Albumin/Globulin Ratio 0.7 L (0.9-2) Lipase 240 (73-393) U/L Administered Medications Apixaban (Apixaban 5 Mg Tablet) 5 mg PO BID CAROL Stop: 04/11/20 10:00 Last Admin: 03/12/20 12:40 Dose: 5 mg Documented by: [id number] Cetirizine HCl (Cetirizine Hcl 10 Mg Tablet) 5 mg PO BID CAROL Stop: 04/11/20 10:00 Last Admin: 03/12/20 21:55 Dose: 5 mg Documented by: [id number] Admin: 03/12/20 11:23 Dose: 5 mg Documented by: [id number] Duloxetine HCl (Duloxetine Hcl 60 Mg Cap) 60 mg PO QA CARLO Stop: 04/11/20 10:00 Last Admin: 03/12/20 12:40 Dose: 60 mg Documented by: [id number] Fish Oil ([place]-3 (Purified Fish Oil) 1 Gm Cap) 1 gm PO BID CAROL Stop: 04/11/20 20:59 Last Admin: 03/12/20 21:55 Dose: 1 gm Documented by: [id number] Acetaminophen (Ofirmev) 1,000 mg in 100 mls @ 400 mls/hr IV Q8H PRN PRN Reason: abd pain, psoriatic pain Stop: 03/15/20 10:51 Last Infusion: 03/12/20 22:13 Dose: 0 mls/hr Documented by: [id number] Admin: 03/12/20 21:54 Dose: 400 mls/hr Documented by: [id number] Pantoprazole Sodium 40 mg/ (Syringe) 10 mls @ 5 mls/min IV DAILY@1100 [facility] Stop: 04/11/20 12:59 Last Admin: 03/12/20 12:43 Dose: 5 mls/min Documented by: [id number] Sodium Chloride (Nss 1000ml) 1,000 mls @ 150 mls/hr IV .Q6H40M [facility] Stop: 03/13/20 11:56 Last Admin: 03/13/20 05:18 Dose: 150 mls/hr Documented by: [id number] Infusion: 03/13/20 05:18 Dose: 150 mls/hr Documented by: [id number] Admin: 03/12/20 23:24 Dose: 150 mls/hr Documented by: [id number] Infusion: 03/12/20 23:24 Dose: 150 mls/hr Documented by: [id number] Infusion: 03/12/20 21:54 Dose: 150 mls/hr Documented by: [id number] Admin: 03/12/20 12:43 Dose: 80 mls/hr Documented by: [id number] Levothyroxine Sodium (Levothyroxine Sodium 100 Mcg Tablet) 100 mcg PO DAILYBB [facility] Stop: 04/12/20 06:29 Last Admin: 03/13/20 05:19 Dose: 100 mcg Documented by: [id number] Metoprolol Succinate (Metoprolol Succ 25mg Ext Rel Tab) 25 mg PO QAM [facility] Stop: 04/11/20 11:14 Last Admin: 03/12/20 11:23 Dose: 25 mg Documented by: [id number] Miscellaneous (Remove Nitro-Dur Patch) 1 ea N/A DAILY@2100 [facility] Stop: 04/11/20 20:59 Last Admin: 03/12/20 21:57 Dose: 1 ea Documented by: [id number] Miscellaneous (Azelastine 2 Sprays: Order Awaiting Action) 1 ea N/A QS [facility] Stop: 04/11/20 15:59 Last Admin: 03/12/20 22:13 Dose: Not Given Documented by: [id number] Admin: 03/12/20 17:09 Dose: Not Given Documented by: [id number] Nifedipine (Nifedipine Extended Rel 30 Mg Tabcr) 90 mg PO HS CAROL Stop: 04/11/20 20:59 Last Admin: 03/12/20 21:55 Dose: 90 mg Documented by: [id number] Nitroglycerin (Nitroglycerin 0.4 Mg/Hr Patch) 1 patch TD DAILY CAROL Stop: 04/11/20 10:00 Last Admin: 03/12/20 12:41 Dose: 1 patch Documented by: [id number] Prednisone (Prednisone 5 Mg Tab) 5 mg PO HS CAROL Stop: 04/11/20 20:59 Last Admin: 03/12/20 21:55 Dose: 5 mg Documented by: [id number] Discontinued Medications Acetaminophen (Acetaminophen 1000 Mg/100 Ml Iv) 1,000 mg IV NOW STA Stop: 03/12/20 07:24 Last Admin: 03/12/20 07:32 Dose: 1,000 mg Documented by: [id number] Acetaminophen (Acetaminophen 500 Mg Tab) 1,000 mg PO Q12 CAROL Stop: 04/11/20 10:00 Last Admin: 03/12/20 12:23 Dose: Not Given Documented by: [id number] Sodium Chloride (Nss 1000ml) 500 mls @ 999 mls/hr IV .Q31M ONE Stop: 03/12/20 08:43 Last Infusion: 03/12/20 10:25 Dose: 0 mls/hr Documented by: [id number] Admin: 03/12/20 08:30 Dose: 999 mls/hr Documented by: [id number] Non-Formulary Medication (Magnesium Oxide) 400 mg PO BID CAROL Stop: 04/11/20 10:00 Last Admin: 03/12/20 12:23 Dose: Not Given Documented by: [id number] Ondansetron HCl (Ondansetron Inj 2 Mg/Ml 2 Ml Vial) 4 mg IV NOW STA Stop: 03/12/20 07:24 Last Admin: 03/12/20 07:32 Dose: 4 mg Documented by: [id number] Pantoprazole Sodium (Pantoprazole 40 Mg Tab) 40 mg PO BID CAROL Stop: 04/11/20 10:00 Last Admin: 10/19/20 12:23 Dose: Not Given Documented by: [id number] Potassium Chloride (Potassium Chloride 20 Meq Tabcr) 20 meq PO BID [facility] Stop: 04/11/20 10:00 Last Admin: 03/12/20 12:22 Dose: Not Given Documented by: [id number] Spironolactone (Spironolactone 25 Mg Tab) 25 mg PO BID [facility] Stop: 04/11/20 10:00 Last Admin: 03/12/20 12:22 Dose: Not Given Documented by: [id number] Imaging Data Radiologist's Impression: CT OF THE ABDOMEN AND PELVIS WITHOUT CONTRAST CLINICAL HISTORY: Right lower quadrant abdominal pain. COMPARISON STUDY: CT of the abdomen and pelvis April 14, 2014. TECHNIQUE: Axial images of the abdomen and pelvis were obtained without IV contrast. Images were reviewed in the axial, sagittal, and coronal planes. Automated exposure control was utilized for the study. A dose lowering technique was utilized adhering to the principles of ALARA. FINDINGS: Lung bases are unremarkable. No pneumatosis, free air or portal venous gas is present. There is no biliary ductal dilatation status post cholecystectomy. Evaluation of the abdomen and pelvis is suboptimal as unenhanced exam. The liver, spleen, adrenal glands, kidneys and pancreas are unremarkable. There is no hydronephrosis. Note is made of a 2.7 cm lipoma within the ascending colon. There is mild dilatation of the cecum which measures 8.4 mm in caliber. The position of the cecum is abnormal, within the left mid abdomen. There is no significant twisting of the mesentery. There is no ascites. No pneumatosis, free air or portal venous gas is present. Postoperative findings within the spine are noted. There are bilateral hip arthroplasties. No lymphadenopathy is present. No suspicious osseous lesions are noted. The appendix is not visualized. IMPRESSION: Abnormally positioned signal within the left mid abdomen with mild cecal dilatation. No significant swirling of the mesentery. No definite evidence for cecal volvulus however early volvulus would be difficult to completely exclude. Close clinical follow-up is recommended. If persistent symptoms, short- term follow-up CT is recommended. Discharge Plan Visit Data Chief Complaint: Pain (Generalized) Stated Complaint: LWR RT QUAD PAIN ED Provider: Peña Noel Discharge Problem: Lower abdominal pain, Abnormal abdominal CT scan Patient Disposition: Admitted As Inpatient Condition: Good Discharge Instructions Interventions: ED Discharge Assessment Last Done: 03/12/20 11:40
[2020-03-12 07:42] LABS: Basophils # (auto) 0.03 K/uL (0-0.2); Basophils % (auto) 0.5 %; Eosinophils % (auto) 3.2 %; Hematocrit (blood only) 37.4 % (37-47); Immature Granulocytes # (auto) 0.03 K/uL (0.00-0.02); Immature Granulocytes % (auto) 0.5 %; Lymphocytes # (auto) 1.51 K/uL (1.2-3.4); Lymphocytes % (auto) 24.4 %; Mean Corpuscular Hemoglobin 28.2 pg (25-34); Mean Corpuscular Hgb Conc 32.1 g/dL (32-36); Mean Platelet Volume 10.6 fL (7.4-10.4); Monocytes # (auto) 0.34 K/uL (0.11-0.59); Monocytes % (auto) 5.5 %; Neutrophils # (auto) 4.09 K/uL (1.4-6.5); Neutrophils % (auto) 65.9 %; Platelet Count 286 K/uL (130-400); RDW Coefficient of Variation 18.4 % (11.5-14.5); RDW Standard Deviation 59.6 fL (36.4-46.3); Red Blood Count 4.25 M/uL (4.2-5.4)
[2020-03-12 08:04] LABS: Albumin Level 3.1 gm/dl (3.4-5.0); BUN Creatinine Ratio 9.6 (10-20); Calcium 9.7 mg/dl (8.5-10.1); Creatinine Clr Calc Pharmacy 27.4 ml/min; Est GFR (African American) 22.3; Est GFR (Non-African American) 19.3; Potassium 4.6 mmol/L (3.5-5.1)
[2020-03-12 08:07] LABS: Albumin Globulin Ratio 0.7 (0.9-2); Bilirubin,Total 0.3 mg/dl (0.2-1); Globulin 4.8 gm/dl (2.5-4.0); Total Protein 7.9 gm/dl (6.4-8.2)
[2020-03-12] MEDS ORDERED: SODIUM CHLORIDE 0.9% 1000ML 500 ML IV ONE (08:13)
--- NOTE | 2020-03-12 08:31 | CT Scan Report ---
CT OF THE ABDOMEN AND PELVIS WITHOUT CONTRAST CLINICAL HISTORY: Right lower quadrant abdominal pain. COMPARISON STUDY: CT of the abdomen and pelvis April 14, 2014. TECHNIQUE: Axial images of the abdomen and pelvis were obtained without IV contrast. Images were revi ewed in the axial, sagittal, and coronal planes. Automated exposure control was utilized for the latasha dy. A dose lowering technique was utilized adhering to the principles of ALARA. FINDINGS: Lung bases are unremarkable. No pneumatosis, free air or portal venous gas is present. Ther e is no biliary ductal dilatation status post cholecystectomy. Evaluation of the abdomen and pelvis i s suboptimal as unenhanced exam. The liver, spleen, adrenal glands, kidneys and pancreas are unremark able. There is no hydronephrosis. Note is made of a 2.7 cm lipoma within the ascending colon. There i s mild dilatation of the cecum which measures 8.4 mm in caliber. The position of the cecum is abnorma l, within the left mid abdomen. There is no significant twisting of the mesentery. There is no ascite s. No pneumatosis, free air or portal venous gas is present. Postoperative findings within the spine are noted. There are bilateral hip arthroplasties. No lymphadenopathy is present. No suspicious osseo us lesions are noted. The appendix is not visualized. IMPRESSION: Abnormally positioned signal within the left mid abdomen with mild cecal dilatation. No significant swirling of the mesentery. No definite evidence for cecal volvulus however early volvulus would be difficult to completely exclude. Close clinical follow-up is recommended. If persistent sym ptoms, short-term follow-up CT is recommended. ACT 112: Negative or not required by law. Electronically signed by: Alfred Avendaño M.D. 03/12/2020 8:30 AM
--- NOTE | 2020-03-12 09:12 | Surgery Consultation ---
Date of Consultation March 12, 2020 Assessment & Plan (1) Abdominal pain: CT was reviewed with radiology, does not appear to be volvulus but does have cecal distention and displacement. She does not have any acute abdominal findings. Recommend observation, NPO, GI consult. If her pain increases today would repeat CT with oral contrast urgently or if she is not improved by tomorrow plan to repeat CT with contrast. 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 She had BM this morning. Some nausea, no vomiting. Has been told she has an enlarged colon in the past. Last colonoscopy approx 5 years ago. Allergies Allergy/AdvReac Type Severity Reaction Status Date / Time codeine Allergy Severe Anaphylaxis Verified 03/12/20 07:31 celecoxib [From Celebrex] Allergy Intermediate RASH Verified 03/12/20 07:31 cephalexin [From Keflex] Allergy Intermediate Rash Verified 03/12/20 07:31 Diclopak Allergy Intermediate CREATINE Verified 04/06/17 09:34 ELEVATION hydrocodone Allergy Intermediate Rash Verified 03/12/20 07:31 Iodinated Contrast Media Allergy Intermediate RASH Verified 03/12/20 07:31 nickel Allergy Intermediate Rash Verified 03/12/20 07:31 oxycodone Allergy Intermediate Rash Verified 03/12/20 07:31 Sulfa (Sulfonamide Allergy Intermediate RASH TO Verified 03/12/20 07:31 Antibiotics) SULFA DRUGS tetracycline Allergy Intermediate RASH Verified 03/12/20 07:31 capsaicin AdvReac Mild CREATINE Verified 03/12/20 07:31 ELEVATION diclofenac AdvReac Mild CREATINE Verified 03/12/20 07:31 ELEVATION propylene glycol AdvReac Mild CREATINE Verified 03/12/20 07:31 ELEVATION "PREP WITH BLUE DYE" Allergy Intermediate Rash Uncoded 03/12/20 07:31 Home Medications Home Medications Medication Instructions Recorded Confirmed Type cholecalciferol (vitamin D3) 1,000 unit PO QAM 07/26/18 03/12/20 History [Vitamin D3] magnesium oxide 400 mg PO BID 07/26/18 03/12/20 History omega 8-nnm-upv-fish oil [Fish Oil] 1,000 mg PO BID 07/26/18 03/12/20 History azelastine 137 mcg (0.1 %) nasal 2 spray INTRANASAL DAILY PRN ml 11/23/18 03/12/20 History spray aerosol nifedipine 90 mg PO HS 05/02/19 03/12/20 History cetirizine [Zyrtec] 5 mg PO BID 08/22/19 03/12/20 History levalbuterol HCl [Xopenex] 0.63 mg INHALATION Q4H PRN 08/22/19 03/12/20 History levothyroxine [Synthroid] 100 mcg PO QAM 08/22/19 03/12/20 History pantoprazole 40 mg tablet,delayed 40 mg PO BID #60 tab 08/24/19 03/12/20 Rx release betamethasone valerate 1 applic TOPICAL UD PRN 11/30/19 03/12/20 History duloxetine [Cymbalta] 60 mg PO QAM 11/30/19 03/12/20 History potassium chloride 20 mEq 20 meq PO BID #180 tab 01/02/20 03/12/20 Rx tablet,extended release apixaban [Eliquis] 5 mg PO BID #60 tab 01/09/20 03/12/20 Rx nitroglycerin 0.4 mg/hr 1 patch TRANSDERMAL DAILY #30 ea 01/11/20 03/12/20 Rx transdermal 24 hour patch acetaminophen 1,000 mg PO Q12 01/16/20 03/12/20 History spironolactone 25 mg tablet 25 mg PO BID #180 tab 01/24/20 03/12/20 Rx metoprolol succinate 25 mg capsule 25 mg PO DAILY #90 ea 02/08/20 03/12/20 Rx sprinkle, ext. release 24 hr prednisone 5 mg tablet 5 mg PO HS #90 tab 03/02/20 03/12/20 Rx Patient History Medical History Chronic steroid use FOR PSORITRIC ARTHRITIS CKD (chronic kidney disease) stage 4, GFR 15-29 ml/min baseline creatinine 2.0-2.2 range; nephrology (Dr. Stevenson) monitoring Esophageal dysmotility Esophageal spasm Gastric polyp GERD (gastroesophageal reflux disease) CONTROLLED WITH MEDS Hearing loss, right DEAF RIGHT EAR Hiatal hernia HTN (hypertension) Hyperlipidemia Hypothyroidism Iron deficiency anemia Irritable bowel syndrome Obesity Peptic ulcer disease Polyneuropathy Psoriatic arthropathy Restless leg syndrome Schatzki's ring Seasonal allergies Sometimes gets bronchitis, uses nebulizer for this and allergies Spinal meningioma On c-spine- follows with [facility] neurosurgery specialist (Dr. Ken)- under surveillance/stable/no indication for surgical intervention Tinnitus of right ear Type II diabetes mellitus diet controlled Varicose veins of legs Surgical History H/O thyroidectomy History of arthroscopy RT/LEFT KNEE History of arthroscopy of right shoulder History of cardiac cath X2; 10+ YEARS AGO (NO STENTS) History of cataract extraction RT/LEFT History of cholecystectomy History of colonoscopy History of dilatation and curettage History of esophagogastroduodenoscopy (EGD) History of foot surgery RT FOOT FUSION History of lumbar fusion History of tonsillectomy and adenoidectomy History of tooth extraction History of total abdominal hysterectomy and bilateral salpingo-oophorectomy History of total hip arthroplasty RIGHT 05/27/19. Complicated by post-op seroma requiring multiple needle aspirations.LEFT HIP 01/10/20 History of total knee arthroplasty RIGHT Schatzki's ring HX S/P EGD WITH DILATION (2016) Status post total replacement of left shoulder hx of Family History Mother Hypertension Arthritis Father Hypertension Lung cancer Family/Other Colon cancer Unknown Hypertension Allergies Breast cancer Brother Cancer Denies family history of Ovarian cancer Prostate cancer Diabetes Myocardial infarction Stroke Social History Smoking Status: Never smoker Cigarettes Per Day: QUIT AGE 26; Second Hand Exposure: No; Hx Alcohol Use: Yes Alcohol type: wine Hx Substance Use: No Preferred Language: Kittitian Communication Ability: Effective Visual Impairment: No Limitations Hearing Ability: Hard of Hearing Electronic Technician Required: No Beliefs That Will Affect Care: None marital status: Current Living Situation: Alone Current Living Situation Comment: is in care home. 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 Safe at Home: Yes caffeine: Yes Dental Care, Regularly: Yes Physical Activity Frequency: Does not Exercise Physical Activity Frequency Comment: Hip problems Seatbelt Use: always Sunscreen Use: No Assistive Devices: Glasses and Walker Review of Systems Constitutional: no fever, no chills and no anorexia Ear, Nose, Mouth, Throat: no dysphagia Respiratory: no cough and no dyspnea Cardiovascular: no chest pain Gastrointestinal: + abdominal pain, + bloating and + nausea; no vomiting, no change in bowel habits, no constipation, no diarrhea/loose stools and no constant urge to pass stools Genitourinary: no dysuria Musculoskeletal: no body aches Integumentary: no rash Psychiatric: no depression Hematologic / Lymphatic: + easy bleeding (On Eliquis) Physical Exam Constitutional: WD/WN, vitals as above Eyes: PERRL, conjunctivae normal, anicteric sclerae ENMT: external ear and nose normal, oropharynx normal Neck: trachea midline Respiratory: normal respiratory effort Cardiovascular: RRR, no murmur, no edema Gastrointestinal (Abdomen): Inspection/Auscultation: + abdomen distended (mild) Percussion/Palpation: + abdomen tender (mild RLQ) and abdomen soft; no guarding and abdomen not rigid Musculoskeletal: no cyanosis or clubbing, extremities motor strength 5/5 Skin: no rashes, warm and dry Psychiatric: A+Ox3, euthymic affect Results & Data ([facility]) Vital Signs (Past 12 Hours) Vital Signs Temp Pulse Pulse Resp BP BP Pulse Ox 03/12/20 08:13 49 L 20 124/69 92 03/12/20 07:04 37 C 79 24 115/62 98 PG Care Time/CCT Total # of Minutes Spent Total Time Spent with Patient: Total time spent is greater than 50% in coordination of care (as documented) at patient's floor/unit and/or counseling patient: Coding Level of Care Code 85559 Initial Inpt Care Lvl 1 Diagnoses Abdominal pain R10.9
--- NOTE | 2020-03-12 09:29 | History & Physical Report ---
Date of Service March 12, 2020 Assessment & Plan (1) Abdominal pain: - Admit to med surg - CT abd reviewed showing possible cecal volvulus- abd pain, distension present on exam. Monitor - General surgery cs- will plan on doing repeat CT in am with contrast, appreciate recs - NPO for now - NSS at 80ml/hr for 1 day while NPO - Convert oral meds to IV if possible - Pain well controlled currently, can use tylenol IV prn as well as morphine for breakthrough - Continue to encourage ambulation with nurse - GI cs at request of gen surg, follows with Dr. Watson as an outpatient- hx of Shatzkis ring dilation done in December 2019 and has small hiatal hernia. (2) CKD (chronic kidney disease) stage 4, GFR 15-29 ml/min: -Stage IV, cr= 2.41, BUN = 23, appears to be at baseline (3) Atrial fibrillation: -Eliquis to be given this morning, will hold on subsequent doses thereafter, can consider heparin subq -HR noted to be in the high 40s, low 50s at baseline, low 50s at bedside during my exam, allow metoprolol with holding parameters, cardiology as an outpatient - Onset was s/p hip surgery in December 2019 - Follows with Dr. Granados as an outpt - recently worse 24hr holter monitor and was scheduled to have follow up appt for this on 03/13/20 ( ie. tomorrow), where they were going to review data and determine fitshe had chronotropic incompetence and would need to consider pacemaker insertion. Was considering another stress test. (4) Essential hypertension: -BP well controlled 120s/70s, continue metoprolol as above, nifedipine, nitro patch -Hold spironolactone while giving fluids (5) Hyperlipidemia: - Diet controlled, not on statin therapy (6) Type II diabetes mellitus: - Last A1C= 6.7 in November 2019, no need for recheck - ISS with accuchecks, not on oral medication - Diet and exercise to be encouraged (7) Psoriatic arthropathy: - Noted, stable, continue prednisone 5 mg daily - has attempted to wean off of this in the past but has been able to do so (8) care home current use of systemic steroids: (9) DVT prophylaxis: - teds, ambulatory CODE: Full Dispo: From home, likely to remain in the hospital x 1-2 days History of Present Illness Primary Care Provider: Shelton Melendez MD This is a 74-year-old female with PMHx of A. fib, HTN, psoriatic arthritis on chronic immunosuppression, CKD stage IV, DM type II, lumbar canal stenosis, GERD who presents to the hospital with right lower quadrant pain. She notes the pain is constant this morning, radiated 6/10, sharp knife stabbing in nature, also with some mild distention, and now feels sore. She was worried that this could be her appendix and thought she better come to the ER. 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 She denies any fevers, chills or sweats. She denies any nausea or vomiting, had her last bowel movement yesterday morning and has passed flatus this morning x1, and reports increased belching. She is previously followed with Dr. Watson, last EGD was on 12/28/2019 she underwent esophageal dilation, had a small hiatal hernia, colonoscopy was about 5 years ago and was told there may have been something abnormal about it but cannot recall what it was. She reports her RLQ abd pain is worse when people touch it, but otherwise she cannot name any alleviating or aggravating factors. She took levothyroxine but none of her other medications. Pt was scheduled for cardiology follow-up tomorrow since she recently wore a Holter monitor for bradycardia evaluation. Allergies Allergy/AdvReac Type Severity Reaction Status Date / Time codeine Allergy Severe Anaphylaxis Verified 03/12/20 07:31 celecoxib [From Celebrex] Allergy Intermediate RASH Verified 03/12/20 07:31 cephalexin [From Keflex] Allergy Intermediate Rash Verified 03/12/20 07:31 Diclopak Allergy Intermediate CREATINE Verified 04/06/17 09:34 ELEVATION hydrocodone Allergy Intermediate Rash Verified 03/12/20 07:31 Iodinated Contrast Media Allergy Intermediate RASH Verified 03/12/20 07:31 nickel Allergy Intermediate Rash Verified 03/12/20 07:31 oxycodone Allergy Intermediate Rash Verified 03/12/20 07:31 Sulfa (Sulfonamide Allergy Intermediate RASH TO Verified 03/12/20 07:31 Antibiotics) SULFA DRUGS tetracycline Allergy Intermediate RASH Verified 03/12/20 07:31 capsaicin AdvReac Mild CREATINE Verified 03/12/20 07:31 ELEVATION diclofenac AdvReac Mild CREATINE Verified 03/12/20 07:31 ELEVATION propylene glycol AdvReac Mild CREATINE Verified 03/12/20 07:31 ELEVATION "PREP WITH BLUE DYE" Allergy Intermediate Rash Uncoded 03/12/20 07:31 Home Medications Home Medications Medication Instructions Recorded Confirmed Type cholecalciferol (vitamin D3) 1,000 unit PO QAM 07/26/18 03/12/20 History [Vitamin D3] magnesium oxide 400 mg PO BID 07/26/18 03/12/20 History omega 5-tmi-uzs-fish oil [Fish Oil] 1,000 mg PO BID 07/26/18 03/12/20 History azelastine 137 mcg (0.1 %) nasal 2 spray INTRANASAL DAILY PRN ml 11/23/18 03/12/20 History spray aerosol nifedipine 90 mg PO HS 05/02/19 03/12/20 History cetirizine [Zyrtec] 5 mg PO BID 08/22/19 03/12/20 History levalbuterol HCl [Xopenex] 0.63 mg INHALATION Q4H PRN 08/22/19 03/12/20 History levothyroxine [Synthroid] 100 mcg PO QAM 08/22/19 03/12/20 History pantoprazole 40 mg tablet,delayed 40 mg PO BID #60 tab 08/24/19 03/12/20 Rx release betamethasone valerate 1 applic TOPICAL UD PRN 11/30/19 03/12/20 History duloxetine [Cymbalta] 60 mg PO QAM 11/30/19 03/12/20 History potassium chloride 20 mEq 20 meq PO BID #180 tab 01/02/20 03/12/20 Rx tablet,extended release apixaban [Eliquis] 5 mg PO BID #60 tab 01/09/20 03/12/20 Rx nitroglycerin 0.4 mg/hr 1 patch TRANSDERMAL DAILY #30 ea 01/11/20 03/12/20 Rx transdermal 24 hour patch acetaminophen 1,000 mg PO Q12 01/16/20 03/12/20 History spironolactone 25 mg tablet 25 mg PO BID #180 tab 01/24/20 03/12/20 Rx metoprolol succinate 25 mg capsule 25 mg PO DAILY #90 ea 02/08/20 03/12/20 Rx sprinkle, ext. release 24 hr prednisone 5 mg tablet 5 mg PO HS #90 tab 03/02/20 03/12/20 Rx Past Med/Surg History Medical History Chronic steroid use FOR PSORITRIC ARTHRITIS CKD (chronic kidney disease) stage 4, GFR 15-29 ml/min baseline creatinine 2.0-2.2 range; nephrology (Dr. Stevenson) monitoring Esophageal dysmotility Esophageal spasm Gastric polyp GERD (gastroesophageal reflux disease) CONTROLLED WITH MEDS Hearing loss, right DEAF RIGHT EAR Hiatal hernia HTN (hypertension) Hyperlipidemia Hypothyroidism Iron deficiency anemia Irritable bowel syndrome Obesity Peptic ulcer disease Polyneuropathy Psoriatic arthropathy Restless leg syndrome Schatzki's ring Seasonal allergies Sometimes gets bronchitis, uses nebulizer for this and allergies Spinal meningioma On c-spine- follows with [facility] neurosurgery specialist (Dr. Ken)- under surveillance/stable/no indication for surgical intervention Tinnitus of right ear Type II diabetes mellitus diet controlled Varicose veins of legs Surgical History H/O thyroidectomy History of arthroscopy RT/LEFT KNEE History of arthroscopy of right shoulder History of cardiac cath X2; 10+ YEARS AGO (NO STENTS) History of cataract extraction RT/LEFT History of cholecystectomy History of colonoscopy History of dilatation and curettage History of esophagogastroduodenoscopy (EGD) History of foot surgery RT FOOT FUSION History of lumbar fusion History of tonsillectomy and adenoidectomy History of tooth extraction History of total abdominal hysterectomy and bilateral salpingo-oophorectomy History of total hip arthroplasty RIGHT 05/27/19. Complicated by post-op seroma requiring multiple needle aspirations.LEFT HIP 01/10/20 History of total knee arthroplasty RIGHT Schatzki's ring HX S/P EGD WITH DILATION (2017) Status post total replacement of left shoulder hx of Family History Mother Hypertension Arthritis Father Hypertension Lung cancer Family/Other Colon cancer Unknown Hypertension Allergies Breast cancer Brother Cancer Denies family history of Ovarian cancer Prostate cancer Diabetes Myocardial infarction Stroke Social History Smoking Status: Never smoker Cigarettes Per Day: QUIT AGE 26; Second Hand Exposure: No; Hx Alcohol Use: Yes Alcohol type: wine Hx Substance Use: No Preferred Language: Bulgarian Communication Ability: Effective Visual Impairment: No Limitations Hearing Ability: Hard of Hearing Glost Tile Shader Required: No Beliefs That Will Affect Care: None marital status: Current Living Situation: Family Current Living Situation Comment: is in [facility]. 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 Safe at Home: Yes caffeine: Yes Dental Care, Regularly: Yes Physical Activity Frequency: Does not Exercise Physical Activity Frequency Comment: Hip problems Seatbelt Use: always Sunscreen Use: No Assistive Devices: None Review of Systems Review of Systems: Constitutional: No fever, sweats or chills Eyes: No diplopia, no worsening or blurred vision ENT: normal hearing, no trouble swallowing Respiratory: No cough, sputum, dyspnea at rest or on exertion Cardiovascular: No chest pain, tightness or palpitations, +HR typically in high 40s-50s Abdomen: +As per HPI, no nausea, vomiting, diarrhea or constipation, + flatus this morning, +Belching, + mild distension Musculoskeletal: No joint pain, calf pain, swelling Neurologic: No weakness, numbness/tingling, or balance problems Psychiatric: No anxiety or depression Skin: No rash or itch Physical Exam Physical Exam: General: awake, alert, no apparent distress Head: Normocephalic, atraumatic ENT: PERRL, EOMI, no pharyngeal exudate, mucous membranes moist Chest: Clear to auscultation, on room air, no adventitious breath sounds Cardiac: sinus lina with HR of 51 at bedside, regular rhythm, no murmur, no JVD, normal peripheral pulses, good capillary refill Abdominal: NABS x 4 quadrants, soft, no high pitch or tinkling sounds, + mildly distended, + umbilical hernia, nontender to palpation, tenderness to deep palpation in the RLQ with guarding Extremities: Normal inspection, no peripheral edema or erythema, calfs nontender to palpation, + dry flaking skin on lower extremities Psych: Normal mood and affect Neuro: AAO x 3, strength intact bilaterally and rated 5/5, no motor deficits, speech is clear, no peripheral sensory deficits Results & Data Results & Data ([facility]) Vital Signs (Past 12 Hours) Vital Signs Temp Pulse Pulse Resp BP BP Pulse Ox 10/19/20 08:13 49 L 20 124/69 92 03/12/20 07:04 37 C 79 24 115/[address] OF THE ABDOMEN AND PELVIS WITHOUT CONTRAST CLINICAL HISTORY: Right lower quadrant abdominal pain. COMPARISON STUDY: CT of the abdomen and pelvis April 14, 2014. TECHNIQUE: Axial images of the abdomen and pelvis were obtained without IV contrast. Images were reviewed in the axial, sagittal, and coronal planes. Automated exposure control was utilized for the study. A dose lowering technique was utilized adhering to the principles of ALARA. FINDINGS: Lung bases are unremarkable. No pneumatosis, free air or portal venous gas is present. There is no biliary ductal dilatation status post cholecystectomy. Evaluation of the abdomen and pelvis is suboptimal as unenhanced exam. The liver, spleen, adrenal glands, kidneys and pancreas are unremarkable. There is no hydronephrosis. Note is made of a 2.7 cm lipoma within the ascending colon. There is mild dilatation of the cecum which measures 8.4 mm in caliber. The position of the cecum is abnormal, within the left mid abdomen. There is no significant twisting of the mesentery. There is no ascites. No pneumatosis, free air or portal venous gas is present. Postoperative findings within the spine are noted. There are bilateral hip arthroplasties. No lymphadenopathy is present. No suspicious osseous lesions are noted. The appendix is not visualized. IMPRESSION: Abnormally positioned signal within the left mid abdomen with mild cecal dilatation. No significant swirling of the mesentery. No definite evidence for cecal volvulus however early volvulus would be difficult to completely exclude. Close clinical follow-up is recommended. If persistent symptoms, short- term follow-up CT is recommended. ACT 112: Negative or not required by law Code Status & VTE Plan Code Status Full - discussed with the pt at bedside Supervising Physician Co-Signing Physician Notes I personally saw and examined the patient. I verified all ellis points and agree with SILVANA Larsen with the following exceptions and/or additions: 74-year-old female present to ER with RLQ pain started overnight. Since admission she has been passing flatus and abdominal pain slowly improving. Sharp, no radiation. O/E HS1+2, RRR, CTAB, abdo distended, lower abdo pain on deep palpation, BS normal. A/P Discussed medications with Misty at the time of admission and agree with plan above. Will defer CT with oral contrast as improving to gastroenterology. PG Care Time/CCT Total # of Minutes Spent Total Time Spent with Patient: Total time spent is greater than 50% in coordination of care (as documented) at patient's floor/unit and/or counseling patient: Coding Level of Care Code 48365 Initial Inpt Care Lvl 3 Diagnoses Abdominal pain R10.9 CKD (chronic kidney disease) stage 4, GFR 15-29 ml/min N18.4 Atrial fibrillation I48.91 Essential hypertension I10 Hyperlipidemia E78.5 Type II diabetes mellitus E11.22; N18.4 Chronic kidney disease stage: stage 4 (severe) 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 complication detail: with chronic kidney disease 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 complication status: with kidney complications 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 termination clerk insulin use: without termination clerk use Psoriatic arthropathy 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
[2020-03-12] MEDS ORDERED: APIXABAN 5 MG TABLET PO SCH (10:01)
[2020-03-12] MEDS ORDERED: SPIRONOLACTONE 25 MG TAB PO SCH (10:01)
[2020-03-12] MEDS ORDERED: POTASSIUM CHLORIDE CRTAB 20 MEQ TABCR PO SCH (10:01)
[2020-03-12] MEDS ORDERED: PANTOprazole 40 MG TAB PO SCH (10:01)
[2020-03-12] MEDS ORDERED: NON-FORMULARY MEDICATION (Magnesium Oxide 400 MG) PO SCH (10:01)
[2020-03-12] MEDS ORDERED: NON-FORMULARY MEDICATION (Metoprolol Succinate 25 MG) PO SCH (10:01)
[2020-03-12] MEDS ORDERED: ACETAMINOPHEN 500 MG TAB PO SCH (10:01)
[2020-03-12] MEDS ORDERED: ACETAMINOPHEN 1,000 MG/100 ML VIAL IV PRN (10:52)
[2020-03-12] MEDS: METOPROLOL SUCC 25MG EXT REL TAB PO SCH (11:23)
[2020-03-12] MEDS: CETIRIZINE HCL 10 MG TABLET PO SCH ×2 (11:23→21:55)
[2020-03-12] MEDS ORDERED: BETAMETHASONE VAL 0.1% CR 15 GM TOP PRN (11:57)
[2020-03-12] MEDS ORDERED: NON-FORMULARY MEDICATION (Azelastine 2 SPRAYS) INTNAS PRN (11:57)
[2020-03-12] MEDS ORDERED: ACETAMINOPHEN 325 MG TAB PO PRN (11:57)
[2020-03-12] MEDS ORDERED: ONDANSETRON INJ 2 MG/ML 2 ML VIAL IV PRN (11:57)
[2020-03-12] MEDS ORDERED: LEVALBUTEROL HCL 0.63 MG/3 ML NEB INH PRN (11:57)
[2020-03-12] MEDS: DULoxetine HCL 60 MG CAP PO SCH (12:40)
[2020-03-12] MEDS: NITROGLYCERIN 0.4 MG/HR PATCH TD SCH (12:41)
[2020-03-12] MEDS: SODIUM CHLORIDE 0.9% 1000ML 1,000 ML IV SCH ×2 (12:43→23:24)
[2020-03-12] MEDS: PANTOprazole 40 MG in SYRINGE 0 ML IV SCH (12:43)
--- NOTE | 2020-03-12 14:51 | Gastrointestinal Consultation ---
Date of Consultation March 12, 2020 Assessment & Plan (1) Abdominal pain: 1. Keep NPO for now. 2. Agree with repeat CT imaging with PO contrast tomorrow for further evaluation. 3. Possible colonoscopy with Dr. Watson on Thursday pending results of repeat imaging. 4. Continue supportive care. Thank you for allowing us to participate in the care of this pleasant patient. If you have any questions or concerns, please do not hesitate to contact us. Supervising Physician Co-Signing Physician Notes Agree with SPEEDY Aly as above Abd: Soft, tender RLQ, ND, +BS Continue current therapy and supportive care Repeat CT scan tomorrow Consider colonoscopy on Thursday History of Present Illness Reason for Consultation: Abdominal pain Requesting Physician: Dr. Alaniz Attending Physician: Hunter Alaniz MD History of Present Illness Mike Vergara is a pleasant female admitted for right lower quadrant pain. She did undergo CT imaging which demonstrated a possible cecal volvulus. She has improved clinically since admission. She states she is now only having abdominal pain to palpation. She denies any fever or chills. No bowel movement since admission but she is passing flatus. She was already seen by general surgery and there was consideration of possible repeat CT imaging. She offers no other complaints at present. Allergies Allergy/AdvReac Type Severity Reaction Status Date / Time codeine Allergy Severe Anaphylaxis Verified 03/12/20 07:31 celecoxib [From Celebrex] Allergy Intermediate RASH Verified 03/12/20 07:31 cephalexin [From Keflex] Allergy Intermediate Rash Verified 03/12/20 07:31 Diclopak Allergy Intermediate CREATINE Verified 04/06/17 09:34 ELEVATION hydrocodone Allergy Intermediate Rash Verified 03/12/20 07:31 Iodinated Contrast Media Allergy Intermediate RASH Verified 03/12/20 07:31 nickel Allergy Intermediate Rash Verified 03/12/20 07:31 oxycodone Allergy Intermediate Rash Verified 03/12/20 07:31 Sulfa (Sulfonamide Allergy Intermediate RASH TO Verified 03/12/20 07:31 Antibiotics) SULFA DRUGS tetracycline Allergy Intermediate RASH Verified 03/12/20 07:31 capsaicin AdvReac Mild CREATINE Verified 03/12/20 07:31 ELEVATION diclofenac AdvReac Mild CREATINE Verified 03/12/20 07:31 ELEVATION propylene glycol AdvReac Mild CREATINE Verified 03/12/20 07:31 ELEVATION "PREP WITH BLUE DYE" Allergy Intermediate Rash Uncoded 03/12/20 07:31 Home Medications Home Medications Medication Instructions Recorded Confirmed Type cholecalciferol (vitamin D3) 1,000 unit PO QAM 07/26/18 03/12/20 History [Vitamin D3] magnesium oxide 400 mg PO BID 07/26/18 03/12/20 History omega 3-rzi-dmc-fish oil [Fish Oil] 1,000 mg PO BID 07/26/18 03/12/20 History azelastine 137 mcg (0.1 %) nasal 2 spray INTRANASAL DAILY PRN ml 11/23/18 03/12/20 History spray aerosol nifedipine 90 mg PO HS 05/02/19 03/12/20 History cetirizine [Zyrtec] 5 mg PO BID 08/22/19 03/12/20 History levalbuterol HCl [Xopenex] 0.63 mg INHALATION Q4H PRN 08/22/19 03/12/20 History levothyroxine [Synthroid] 100 mcg PO QAM 08/22/19 03/12/20 History pantoprazole 40 mg tablet,delayed 40 mg PO BID #60 tab 08/24/19 03/12/20 Rx release betamethasone valerate 1 applic TOPICAL UD PRN 11/30/19 03/12/20 History duloxetine [Cymbalta] 60 mg PO QAM 11/30/19 03/12/20 History potassium chloride 20 mEq 20 meq PO BID #180 tab 01/02/20 03/12/20 Rx tablet,extended release apixaban [Eliquis] 5 mg PO BID #60 tab 01/09/20 03/12/20 Rx nitroglycerin 0.4 mg/hr 1 patch TRANSDERMAL DAILY #30 ea 01/11/20 03/12/20 Rx transdermal 24 hour patch acetaminophen 1,000 mg PO Q12 01/16/20 03/12/20 History spironolactone 25 mg tablet 25 mg PO BID #180 tab 01/24/20 03/12/20 Rx metoprolol succinate 25 mg capsule 25 mg PO DAILY #90 ea 02/08/20 03/12/20 Rx sprinkle, ext. release 24 hr prednisone 5 mg tablet 5 mg PO HS #90 tab 03/02/20 03/12/20 Rx Patient History Medical History Chronic steroid use FOR PSORITRIC ARTHRITIS CKD (chronic kidney disease) stage 4, GFR 15-29 ml/min baseline creatinine 2.0-2.2 range; nephrology (Dr. Stevenson) monitoring Esophageal dysmotility Esophageal spasm Gastric polyp GERD (gastroesophageal reflux disease) CONTROLLED WITH MEDS Hearing loss, right DEAF RIGHT EAR Hiatal hernia HTN (hypertension) Hyperlipidemia Hypothyroidism Iron deficiency anemia Irritable bowel syndrome Obesity Peptic ulcer disease Polyneuropathy Psoriatic arthropathy Restless leg syndrome Schatzki's ring Seasonal allergies Sometimes gets bronchitis, uses nebulizer for this and allergies Spinal meningioma On c-spine- follows with [facility] [place] (Dr. Ken)- under surveillance/stable/no indication for surgical intervention Tinnitus of right ear Type II diabetes mellitus diet controlled Varicose veins of legs Surgical History H/O thyroidectomy History of arthroscopy RT/LEFT KNEE History of arthroscopy of right shoulder History of cardiac cath X2; 10+ YEARS AGO (NO STENTS) History of cataract extraction RT/LEFT History of cholecystectomy History of colonoscopy History of dilatation and curettage History of esophagogastroduodenoscopy (EGD) History of foot surgery RT FOOT FUSION History of lumbar fusion History of tonsillectomy and adenoidectomy History of tooth extraction History of total abdominal hysterectomy and bilateral salpingo-oophorectomy History of total hip arthroplasty RIGHT 05/27/19. Complicated by post-op seroma requiring multiple needle aspirations.LEFT HIP 01/10/20 History of total knee arthroplasty RIGHT Schatzki's ring HX S/P EGD WITH DILATION (2017) Status post total replacement of left shoulder hx of Family History Mother Hypertension Arthritis Father Hypertension Lung cancer Family/Other Colon cancer Unknown Hypertension Allergies Breast cancer Brother Cancer Denies family history of Ovarian cancer Prostate cancer Diabetes Myocardial infarction Stroke Social History Smoking Status: Never smoker Cigarettes Per Day: QUIT AGE 26; Second Hand Exposure: No; Hx Alcohol Use: Yes Alcohol type: wine Hx Substance Use: No Preferred Language: Frisian Communication Ability: Effective Visual Impairment: No Limitations Hearing Ability: Hard of Hearing Cider Maker Required: No Beliefs That Will Affect Care: None marital status: Current Living Situation: Alone Current Living Situation Comment: is in jail. 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 Safe at Home: Yes caffeine: Yes Dental Care, Regularly: Yes Physical Activity Frequency: Does not Exercise Physical Activity Frequency Comment: Hip problems Seatbelt Use: always Sunscreen Use: No Assistive Devices: Cane and Glasses Review of Systems Review of Systems: All systems reviewed & are unremarkable except as noted in HPI & below Physical Exam Constitutional: WD/WN, vitals as above Eyes: EOM intact bilaterally Neck: normal appearance Respiratory: normal respiratory effort, lungs clear to auscultation Cardiovascular: Rate/Rhythm: regular rate Heart Sounds: + murmur Gastrointestinal (Abdomen): Inspection/Auscultation: + hypoactive bowel sounds Percussion/Palpation: + abdomen tender (RLQ) and abdomen soft Musculoskeletal: Extremities: no cyanosis no lower extremity edema Skin: no rashes, warm and dry Neurologic: moves all extremities Psychiatric: A+Ox3, euthymic affect Results & Data ([facility]) Vital Signs (Past 12 Hours) Vital Signs Temp Pulse Pulse Resp BP BP Pulse Ox 03/12/20 11:50 36.7 C 52 L 18 151/86 H 97 03/12/20 11:25 54 L 20 134/73 95 03/12/20 08:13 49 L 20 124/69 92 03/12/20 07:04 37 C 79 24 115/62 98 PG Care Time/CCT Total # of Minutes Spent Total Time Spent with Patient: Total time spent is greater than 50% in coordination of care (as documented) at patient's floor/unit and/or counseling patient: Coding Level of Care Code 85959 Initial Inpt Care Lvl 3 Diagnoses Abdominal pain R10.9
[2020-03-12 15:07] LABS: Appearance Urine Clear (Clear); Bilirubin Urine Negative (Negative); Blood Urine Negative (Negative); Color Urine Yellow; Glucose Urine UA Negative (Negative); Ketones Urine Negative (Negative); Leukocyte Esterase Urine Negative (Negative); Nitrite Urine Negative (Negative); Protein Urine Negative (Negative); Specific Gravity Urine 1.015 (1.000-1.030); Urobilinogen Urine Negative (Negative)
[2020-03-12] MEDS ORDERED: predniSONE 5 MG TAB PO SCH (21:00)
[2020-03-12] MEDS ORDERED: NIFEdipine EXTENDED REL 30 MG TABCR PO SCH (21:00)
[2020-03-12] MEDS: OMEGA-3 (PURIFIED FISH OIL) 1 GM CAP PO SCH (21:55)
[2020-03-13 02:51] LABS: Hematocrit (blood only) 35.9 % (37-47); Hemoglobin 11.3 g/dL (12.0-16.0); Mean Corpuscular Hemoglobin 27.9 pg (25-34); Mean Corpuscular Hgb Conc 31.5 g/dL (32-36); Mean Corpuscular Volume 88.6 fL (80-100); Mean Platelet Volume 10.8 fL (7.4-10.4); Platelet Count 264 K/uL (130-400); RDW Coefficient of Variation 18.3 % (11.5-14.5); RDW Standard Deviation 59.6 fL (36.4-46.3); Red Blood Count 4.05 M/uL (4.2-5.4); White Blood Count 5.84 K/uL (4.8-10.8)
[2020-03-13 03:09] LABS: BUN Creatinine Ratio 9.8 (10-20); Calcium 9.1 mg/dl (8.5-10.1); Creatinine Clr Calc Pharmacy 29.6 ml/min; Est GFR (African American) 25.1; Est GFR (Non-African American) 21.6; Magnesium 2.1 mg/dl (1.8-2.4); Potassium 4.7 mmol/L (3.5-5.1)
[2020-03-13 03:12] LABS: Albumin Globulin Ratio 0.7 (0.9-2); Bilirubin,Total 0.6 mg/dl (0.2-1); Globulin 4.4 gm/dl (2.5-4.0); Total Protein 7.4 gm/dl (6.4-8.2)
[2020-03-13] MEDS: SODIUM CHLORIDE 0.9% 1000ML 1,000 ML IV SCH ×2 (05:18→11:45)
[2020-03-13] MEDS ORDERED: LEVOTHYROXINE SODIUM 100 MCG TABLET PO SCH (06:30)
[2020-03-13] MEDS: CETIRIZINE HCL 10 MG TABLET PO SCH (08:17)
[2020-03-13] MEDS: METOPROLOL SUCC 25MG EXT REL TAB PO SCH (08:17)
[2020-03-13] MEDS: NITROGLYCERIN 0.4 MG/HR PATCH TD SCH (08:18)
[2020-03-13] MEDS: DULoxetine HCL 60 MG CAP PO SCH (08:18)
[2020-03-13] MEDS: OMEGA-3 (PURIFIED FISH OIL) 1 GM CAP PO SCH (08:18)
--- NOTE | 2020-03-13 08:26 | Surgery Progress Note ---
Date of Service March 13, 2020 Assessment & Plan (1) Abdominal pain: Patient's symptoms are overall improved from yesterday WBC normal, VSS On examination abdomen is soft with some ttp in right side Will obtain CT a/p with oral contrast today for further evaluation Appreciate GI team following along No plans for surgical intervention at this time Admission and Anticipated Discharge Date Admission Date: March 12, 2020 Supervising Physician Co-Signing Physician Notes I personally saw and evaluated the patient with Reina Monae PA-C and agree with the assessment and plan 74 yo female with questionable cecal volvulus -Feeling better today, passing flatus, no BM -Will repeat CT with PO contrast today -Keep NPO -Further recs pending CT Subjective Patient states she is feeling better than yesterday. She denies much pain unless abdomen being pressed on. She denies nausea/vomiting. She is passing flatus. Feels less bloated than yesterday. Physical Exam Physical Exam: awake Respiratory: normal respiratory effort Gastrointestinal (Abdomen): Inspection/Auscultation: + abdomen distended (improved from yest) Percussion/Palpation: + abdomen tender (ttp in right mid and lower quadrants) and abdomen soft Results & Data ([facility]) Vital Signs (Past 12 Hours) Vital Signs Temp Pulse Pulse Resp BP BP Pulse Ox 03/13/20 07:35 37.2 C 59 L 18 148/51 H 99 03/12/20 23:12 36.6 C 48 L 16 134/71 93 03/12/20 21:53 48 L 137/72 PG Care Time/CCT Total # of Minutes Spent Total Time Spent with Patient: Total time spent is greater than 50% in coordination of care (as documented) at patient's floor/unit and/or counseling patient: Coding Level of Care Code 80111 Subseq Hosp Care Lvl 1 Diagnoses Abdominal pain R10.9
[2020-03-13] MEDS ORDERED: METOPROLOL SUCC 25MG EXT REL TAB PO SCH (09:00)
[2020-03-13] MEDS ORDERED: CHOLECALCIFEROL 1,000 UNITS 25 MCG TAB PO SCH (09:00)
[2020-03-13] MEDS ORDERED: HYDROCORTISONE SOD SUCCINATE 100 MG/2 ML VIAL IV ONE (10:00)
[2020-03-13] MEDS ORDERED: HYDROCORTISONE SOD 25 MG in SYRINGE 0 ML IV ONE (10:00)
--- NOTE | 2020-03-13 10:13 | Gastroenterology Progress Note ---
Date of Service March 13, 2020 Assessment & Plan (1) Abnormal abdominal CT scan: -Repeat abdominal CT scan today at 10:15. -Further recommendations pending results of this scan. Admission and Anticipated Discharge Date Admission Date: March 12, 2020 Supervising Physician Co-Signing Physician Notes Agree with PAMELA Hennessy as above Abd: Soft, NT, ND, +BS CT results reviewed Advance diet as tolerated OK to discharge from GI standpoint Discussed case with Dr. Blair Subjective Patient is a 74 yo female who presented to [facility] with RLQ pain. She had a CT scan that could not exclude early volvulus. She is feeling much better today. She reports she is less bloated and has been passing flatus. She reports her abdomen feels much softer. She is awaiting a repeat CT scan for further assessment. General surgery is following the patient as well. Review of Systems Constitutional: no fever and no chills Respiratory: no cough Cardiovascular: no chest pain Gastrointestinal: no abdominal pain and no change in stools Physical Exam Constitutional: WD/WN, vitals as above Respiratory: normal respiratory effort Cardiovascular: Extremities: no edema Gastrointestinal (Abdomen): Inspection/Auscultation: abdomen normal to inspection Percussion/Palpation: abdomen soft Skin: no rashes Psychiatric: A+Ox3, euthymic affect Results & Data Results & Data ([facility]) Vital Signs (Past 12 Hours) Vital Signs Temp Pulse Resp BP BP Pulse Ox 03/13/20 07:35 37.2 C 59 L 18 148/51 H 99 03/12/20 23:12 36.6 C 48 L 16 134/71 93 PG Care Time/CCT Total # of Minutes Spent Total Time Spent with Patient: Total time spent is greater than 50% in coordination of care (as documented) at patient's floor/unit and/or counseling patient: Coding Level of Care Code 56094 Subseq Hosp Care Lvl [address] scan R93.5
--- NOTE | 2020-03-13 11:21 | CT Scan Report ---
CT abd pelvis oral con only CLINICAL HISTORY: Abdominal pain with cecal dilatation. Follow-up examination. COMPARISON STUDY: 03/12/2020 FINDINGS: The patient was scanned following administration of dilute oral contrast. No intravenous contrast was administered The lung bases are unremarkable in appearance. No hepatic masses are visualized on this noncontrast study. Gallbladder is surgically absent. There is an equivocal 11 mm splenic hypodensity, similar in appearance to the preceding study. No pancreatic abnormalities are delineated. There are no adrenal masses. There are no renal, ureteral, or bladder calculi identified. There are no transition zones indicate bowel obstruction. There is no evidence of acute diverticuliti s. There is no evidence of acute appendicitis. The cecum is now located within the right lower quadra nt. There is no cecal dilatation. There is a 22 mm cecal lipoma. There is a second fat-containing sin gle lesion measuring 10 mm likely representing a second lipoma. There is no evidence of abdominal aortic aneurysm. There is no free air. There is no ascites. There is no pathologic adenopathy. Uterus appears surgically absent. There is artifact from bilateral hip arthroplasties. There are right iliopsoas calcifications. IMPRESSION: 1. No evidence of bowel obstruction. No evidence of free air 2. The cecum is now located in the normal position. There is no longer evidence for cecal dilatation. This indicates a mobile cecum, which has returned to normal position.. 3. No acute inflammatory changes 4. 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 ACT 112: Negative or not required by law. Electronically signed by: John Rodriguez M.D. 03/13/2020 11:19 AM
[2020-03-13] MEDS: PANTOprazole 40 MG in SYRINGE 0 ML IV SCH (11:45)
--- NOTE | 2020-03-13 17:40 | Discharge Summary ---
Date of Service date of admission - March 12, 2020 date of discharge - March 13, 2020 Admission HPI Per Admitting Provider This is a 74-year-old female with PMHx of A. fib, HTN, psoriatic arthritis on chronic immunosuppression, CKD stage IV, DM type II, lumbar canal stenosis, GERD who presents to the hospital with right lower quadrant pain. She notes the pain is constant this morning, radiated 6/10, sharp knife stabbing in nature, also with some mild distention, and now feels sore. She was worried that this could be her appendix and thought she better come to the ER. 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 She denies any fevers, chills or sweats. She denies any nausea or vomiting, had her last bowel movement yesterday morning and has passed flatus this morning x1, and reports increased belching. She is previously followed with Dr. Watson, last EGD was on 12/28/2019 she underwent esophageal dilation, had a small hiatal hernia, colonoscopy was about 5 years ago and was told there may have been something abnormal about it but cannot recall what it was. She reports her RLQ abd pain is worse when people touch it, but otherwise she cannot name any alleviating or aggravating factors. She took levothyroxine but none of her other medications. Pt was scheduled for cardiology follow-up tomorrow since she recently wore a Holter monitor for bradycardia evaluation. Principal Diagnosis transient cecal volvulus - resolved Discharge Exam Constitutional well developed and well nourished; no acute distress and no altered mental status ENMT external ear and nose normal, oropharynx normal Respiratory normal respiratory effort, lungs clear to auscultation Cardiovascular Rate/Rhythm: regular rate and regular rhythm Heart Sounds: normal S1 and normal S2; no murmur Vessels: posterior tibial pulses present and dorsalis pedis pulses present; no JVD Extremities: no edema Gastrointestinal (Abdomen) Inspection/Auscultation: + abdomen distended (mild) and normal bowel sounds Percussion/Palpation: abdomen nontender, no guarding and no hepatosplenomegaly Psychiatric A+Ox3, euthymic affect Discharge Data Allergies Allergy/AdvReac Type Severity Reaction Status Date / Time codeine Allergy Severe Anaphylaxis Verified 03/12/20 07:31 celecoxib [From Celebrex] Allergy Intermediate RASH Verified 03/12/20 07:31 cephalexin [From Keflex] Allergy Intermediate Rash Verified 03/12/20 07:31 Diclopak Allergy Intermediate CREATINE Verified 04/06/17 09:34 ELEVATION hydrocodone Allergy Intermediate Rash Verified 03/12/20 07:31 Iodinated Contrast Media Allergy Intermediate RASH Verified 03/12/20 07:31 nickel Allergy Intermediate Rash Verified 03/12/20 07:31 oxycodone Allergy Intermediate Rash Verified 03/12/20 07:31 Sulfa (Sulfonamide Allergy Intermediate RASH TO Verified 03/12/20 07:31 Antibiotics) SULFA DRUGS tetracycline Allergy Intermediate RASH Verified 03/12/20 07:31 capsaicin AdvReac Mild CREATINE Verified 03/12/20 07:31 ELEVATION diclofenac AdvReac Mild CREATINE Verified 03/12/20 07:31 ELEVATION propylene glycol AdvReac Mild CREATINE Verified 03/12/20 07:31 ELEVATION "PREP WITH BLUE DYE" Allergy Intermediate Rash Uncoded 03/12/20 07:31 Consultations [facility] Gastroenterology General Surgery Ordered Studies 03/12/20 07:23 CT abd pelvis wo con Stat IMPRESSION: Abnormally positioned signal within the left mid abdomen with mild cecal dilatation. No significant swirling of the mesentery. No definite evidence for cecal volvulus however early volvulus would be difficult to completely exclude. Close clinical follow-up is recommended. If persistent symptoms, short- term follow-up CT is recommended. 03/13/20 08:01 CT abd pelvis oral con only Routine IMPRESSION: 1. No evidence of bowel obstruction. No evidence of free air 2. The cecum is now located in the normal position. There is no longer evidence for cecal dilatation. This indicates a mobile cecum, which has returned to normal position.. 3. No acute inflammatory changes 4. 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 Hospital Course (1) Cecal volvulus: The patient's right lower quadrant abdominal pain appeared to be 2nd to a transient cecal volvulus based on her initial CT findings. Fortunately this issue spontaneously resolved without intervention. Repeat CT abd/pelvis on day of discharge showed resolution of the previously seen malrotation with volvulus. Incidentally, cecal lipomas were seen on the follow-up CT. It is possibly that the lipomas acted as a lead point for the volvulus process. Prior to discharge the patient's abdominal distension was improving, she was tolerating a diet, and she had no pain/nausea/emesis. Of note - [facility] They provided ellis recommendations for her care & management. Lastly, she was asked to follow a low-fiber diet for 10 days post-discharge. (2) Malrotation cecum: See above in "cecal volvulus" (3) Abdominal pain: see above in "cecal volvulus" (4) CKD (chronic kidney disease) stage 4, GFR 15-29 ml/min: Peak Cr was 2.4 on 03/12/20. Discharge Cr was 2.1 Baseline Creatinine is ~ 1.8 to 2.1. Patient asked to HOLD HER POTASSIUM SUPPLEMENT until she sees her PCP for hospital f/u. (5) Atrial fibrillation: Follows with [facility], Dr David Mitchell. HRs were 50s while here. She takes low-dose metoprolol xl 25mg daily along with eliquis 5mg BID. There has been concern that she would ultimately need pacemaker insertion for tachybrady syndrome. F/u with Dr Mitchell as outpatient. (6) Essential hypertension: Controlled while hospitalized. (7) Hyperlipidemia: Diet controlled, not on statin therapy (8) Type II diabetes mellitus: Last A1C= 6.7% in November 2019 Continue dietary control at home (9) Psoriatic arthropathy: Continue prednisone 5 mg daily. Has attempted to wean off of this in the past but has been able to do so. Did receive a minimal amount of stress doses of prednisone while here. 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 Continue 5mg prednisone daily. (11) Hypothyroidism: TSH 07/2019 wnl. Continue levothyroxine. Total Time Total Time Spent Total Time Spent (In Minutes): 45 Total Time Includes: Examination of the Patient, Discharge Planning, Medication Reconciliation and Communication With Other Providers Discharge Plan Discharge Items Patient Disposition: Home - Self-Care Reason For Visit: Right-Sided Abdominal Pain Discharge Diagnosis: Suspected "cecal volvulus" (twisting of the last portion of the small intestine) - resolved on CAT scan on 03/13/20 Condition on Discharge: Good Activity: As commented below Activity Comment: gradually increase your activities over the next 3-5 days Driving/Machine Use: Resume 1 day after discharge Non-emergency contact: Primary Care Provider and Leak Patcher Call non-emergency contact if: you have any medication questions, your symptoms worsen and you have a fever Follow-up/Referrals: Shelton Melendez MD [Primary Care Provider] - (see Dr Melendez within 1 week ) Florentin Watson DO [Physician] - (see Dr Watson within 2 weeks ) Diet: Carb Consistent or DM2 and Low Fiber Addtl Attending Provider Instructions: You were admitted to the hospital because of right lower abdominal pain. Your initial CAT scan of the abdomen showed a possible "cecal volvulus." This is when the last portion of the small intestine twists upon itself causing pain. If the volvulus does not resolve it can lead to obstruction (blockage) of the bowels. Obstruction leads to abdominal distension, bloating, nausea, and vomiting. Fortunately it appears that the cecal volvulus has RESOLVED spontaneously with supportive care and time. Your repeat CAT scan on 03/13/20 showed that the suspected cecal volvulus RESOLVED. You are now passing gas again from your bottom and your pain in the lower right abdomen is resolved. Recommendations - 1. follow a low-fiber diet for 10 days. Avoid the following fiber-rich foods -- * beans (kidney, baked, rutherford, etc) * excessive fruits and veggies * certain high-fiber cereals * fiber supplements * oatmeal * etc 2. please see Dr Watson from the [facility] GI office in follow-up within 2 weeks. It is uncertain if you will need a repeat colonoscopy as an outpatient in the next few months. 3. hold your potassium supplement for now. When you see Dr Melendez next week he can decide whether to place you back on it. 4. take 10mg of your prednisone tomorrow on 03/14/20, then resume 5mg of your prednisone as per usual on 03/15/20. Return to [facility] if - * you have worsening abdominal pain * you have worsening abdominal bloating * you have nausea and/or vomiting * you have inability to pass gas or stool via your rectum * you have fever over 100 degrees * you have blood per your rectum * any other concerns Pending Studies at Discharge: No Stand-Alone Forms: My [facility] MD2U, Smoking Cessation Medications and DC Order Prescriptions: Continued nitroglycerin [Nitro-Dur] 0.4 mg/hr patch 24 hour 1 patch TRANSDERMAL DAILY Qty: 30 RF: 1 prednisone 5 mg tablet 5 mg PO HS Qty: 90 RF: 3 pantoprazole 40 mg tablet,delayed release (DR/EC) 40 mg PO BID Qty: 60 RF: 5 spironolactone [Aldactone] 25 mg tablet 25 mg PO BID Qty: 180 RF: 2 metoprolol succinate 25 mg capsule,sprinkle,ER 24hr 25 mg PO DAILY Qty: 90 RF: 3 levalbuterol HCl [Xopenex] 0.63 mg/3 mL solution for nebulization 0.63 mg INHALATION Q4H PRN (Reason: Cough) RF: 0 levothyroxine [Synthroid] 100 mcg tablet 100 mcg PO QAM RF: 0 cetirizine [Zyrtec] 10 mg Tablet 5 mg PO BID RF: 0 betamethasone valerate 0.1 % cream 1 applic TOPICAL UD PRN (Reason: PSORIASIS ) RF: 0 duloxetine [Cymbalta] 60 mg capsule,delayed release(DR/EC) 60 mg PO QAM RF: 0 Eliquis 5 mg tablet 5 mg PO BID Qty: 60 RF: 3 cholecalciferol (vitamin D3) [Vitamin D3] 1,000 unit Capsule 1,000 unit PO QAM RF: 0 omega 4-[id number]-qjz-fish oil [Fish Oil] 1,000 mg (120 mg-180 mg) Capsule 1,000 mg PO BID RF: 0 magnesium oxide 400 mg magnesium Tablet 400 mg PO BID RF: 0 azelastine 137 mcg (0.1 %) aerosol,spray 2 spray INTRANASAL DAILY PRN (Reason: ALLERGIES) RF: 0 nifedipine 90 mg tablet extended release 90 mg PO HS RF: 0 acetaminophen 500 mg tablet 1,000 mg PO Q12 RF: 0 Discontinued potassium chloride [K-Tab] 20 mEq tablet extended release 20 meq PO BID Qty: 180 RF: 3 Discharge Orders: Discharge Order (Routine); Ordered 03/13/20 Ordered By: Hunter Martínez/Other Patient Handouts: High Blood Sugar (Hyperglycemia), Intestinal Malrotation Ch, Understanding Intestinal Obstruction Admission Data Admit Date/Time: 03/12/20 10:01 Attending Provider: Hunter Blair Admit Provider: Hunter Alaniz Primary Care Provider: Shelton Melendez Other Providers: Hunter Alaniz ; Florentin Watson ; Griselda Lam Other Interventions: Discharge Summary Assessment (RN) Last Done: 03/13/20 18:03 Coding Level of Care Code D/C Day Management >30 mins Diagnoses Cecal volvulus K56.2 Malrotation cecum Q43.3 Abdominal pain R10.9 CKD (chronic kidney disease) stage 4, GFR 15-29 ml/min N18.4 Atrial fibrillation I48.91 Essential hypertension I10 Hyperlipidemia E78.5 Type II diabetes mellitus E11.22; N18.4 Chronic kidney disease stage: stage 4 (severe) 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 complication detail: with chronic kidney disease 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 complication status: with kidney complications 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 exterminator helper termite insulin use: without exterminator helper termite use Psoriatic arthropathy L40.50 oil 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
== END 2020-03-13 18:15 | disposition home or self-care (01) ==
LOC: 3N 06:59 → ED 06:59 → SUATTDRO 10:01 → 3N 11:40

== ENCOUNTER 2023-01-20 19:23 | Inpatient (IN) ==
[2023-01-20] MEDS ORDERED: dilTIAZem HCl 5 MG/ML 5 ML VIAL IV STA (19:37)
[2023-01-20] MEDS ORDERED: dilTIAZem HCl 5 MG/ML 5 ML VIAL IV ONE (19:38)
[2023-01-20 20:21] LABS: Basophils # (auto) 0.04 K/uL (0.00-0.20); Basophils % (auto) 0.5 %; Eosinophils # (auto) 0.16 K/uL (0.00-0.50); Eosinophils % (auto) 2.1 %; Hematocrit (blood only) 35.5 % (37.0-47.0); Hemoglobin 11.2 g/dl (12.0-16.0); Immature Granulocytes # (auto) 0.02 K/uL (0.01-0.20); Immature Granulocytes % (auto) 0.3 %; Lymphocytes # (auto) 1.89 K/uL (1.20-3.40); Lymphocytes % (auto) 25.3 %; Mean Corpuscular Hemoglobin 25.9 pg (25.0-34.0); Mean Corpuscular Hgb Conc 31.5 g/dL (32.0-36.0); Mean Platelet Volume 10.4 fL (9.4-12.4); Monocytes # (auto) 0.62 K/uL (0.11-0.59); Monocytes % (auto) 8.3 %; Neutrophils # (auto) 4.74 K/uL (1.40-6.50); Neutrophils % (auto) 63.5 %; Platelet Count 395 K/uL (130-400); RDW Coefficient of Variation 18.2 % (11.5-14.5); RDW Standard Deviation 54.3 fL (36.4-46.3); Red Blood Count 4.33 M/uL (4.20-5.40); White Blood Count 7.47 K/ul (4.8-10.8)
[2023-01-20 20:25] LABS: BUN Creatinine Ratio 14.4 (10-20); Calcium 9.4 mg/dl (8.6-10.3); Creatinine Clr Calc Pharmacy 35.3 ml/min; Est GFR (African American) 30.9 ml/min; Est GFR (Non-African American) 26.7 ml/min; Potassium 3.6 mmol/L (3.5-5.1)
[2023-01-20 20:32] LABS: Troponin I High Sensitivity 25.2 pg/ml (0-14)
[2023-01-20 20:45] LABS: Partial Thromboplastin Ratio 0.9; Prothrombin Time 10.9 Seconds (9.0-12.0)
--- NOTE | 2023-01-20 21:22 | History & Physical Report ---
Date of Service January 20, 2023 Assessment & Plan (1) Paroxysmal atrial fibrillation: Plan: 77 year old female w/ PmHx osteoarthritis, HTN, T2DM, CKD, mild persistent asthma, allergic rhinitis, sialoadenitis, paroxysmal atrial fibrillation on Eliquis admitted for A fib w/ RVR. Paroxysmal A. fib: -Past history of paroxysmal A. fib diagnosed 3 years ago. -K+ 3.6, Mg 2.2, TSH 1.980 on admission. -Repleted 40meq oral KCl. -No clear trigger for this instance of atrial fibrillation. -Given diltiazem 20mg IV in the ED with rates coming down thereafter. -Can hold off on additional doses tonight unless heart rate climbs back up to 140's. -Had been on metoprolol in the past. May be worth restarting at this time. -Consulted cardiology, will appreciate recommendations. -Continue home Eliquis. -Keep K >4, Mg >2. -Admit to PCU in case needs repeat IV Diltiazem. History of asthma: -continue home inhaler regimen of budesonide-formoterol BID, Xopenex PRN. Chronic steroid use: -Patient had been on steroids orally previously and had tried to wean down but had issues with 4mg -Continue 5mg daily prednisone while inpatient. HTN: -Continue home spironolactone, nifedipine. osteoarthritis: -Tylenol PRN for pain. T2DM: -A1c 6.7, holding home diabetes medications while inpatient. -If glucoses start to creep up can add on SSI coverage. CKD: -Creatinine 1.81 on admission, baseline 1.6-1.8. -Avoid nephrotoxic agents. -Monitor with daily BMP. Iron deficiency anemia: -Hemoglobin 11.2 on admission, baseline 11-12. -Monitor with daily CBC. Depression/Anxiety: -continue duloxetine. GERD: -continue home nexium F/E/N/GI: Heart Healthy DVT Prophylaxis: Continue home Eliquis. Code status: Full code. Dispo: PCU/tele. (2) SI joint arthritis: (3) Hyperlipidemia associated with type 2 diabetes mellitus: (4) Osteoarthritis, knee: (5) GERD (gastroesophageal reflux disease): (6) Depression: (7) Anxiety: (8) Chronic kidney disease with active medical management without dialysis, s tage 3 (moderate): (9) Hypertension: (10) Mild persistent asthma: (11) Type II diabetes mellitus: (12) Iron deficiency anemia: (13) Hypothyroidism: History of Present Illness Chief Complaint: shortness of breath, atrial fibrillation Primary Care Provider: NO PCP Mike is a 77 year old female w/ PmHx osteoarthritis, HTN, T2DM, CKD, mild persistent asthma, allergic rhinitis, sialoadenitis, paroxysmal atrial fibrillation on eliquis coming in for persistent atrial fibrillation. Patient states that last night she was getting up to go to the bathroom when she had felt a little short of breath. Her fitbit had told her the heart rate was elevated and irregular. She contacted the cardiology office this morning and they performed an EKG which showed A. fib with RVR and she was instructed to go to the ED if it persisted past 24 hours. She states that she was unsure if it was atrial fibrillation at first since she has a history of asthma. Her history of atrial fibrillation goes back to December of 2019 when she was having hip surgery and it was spotted on routine monitoring. She states whenever she gets atrial fibrillation it usually lasts for a short period of time such as 30 minutes to a few hours. She is usually able to tell this from her fitbit since the high heart rates are not generally accompanied by symptoms. She denies any recent fevers, chills, diarrhea, constipation, headaches, cough, shortness of breath currently, chest pain, congestion. She was not doing anything physically exerting when the onset happened, she says just walking to the bathroom. In the ED she was found to be in A fib with RVR. She was given a dose of dilti azem 20mg IV with heart rates trending down. Potassium 3.6, magnesium 2.2, TSH 1.980. Allergies Allergy/AdvReac Type Severity Reaction Status Date / Time codeine Allergy Severe Anaphylaxis Verified 01/20/23 21:22 celecoxib [From Celebrex] Allergy Intermediate RASH Verified 01/20/23 21:22 cephalexin [From Keflex] Allergy Intermediate Rash Verified 01/20/23 21:22 hydrocodone Allergy Intermediate Rash Verified 01/20/23 21:22 Iodinated Contrast Media Allergy Intermediate RASH Verified 01/20/23 21:22 nickel Allergy Intermediate Rash Verified 01/20/23 21:22 oxycodone Allergy Intermediate Rash Verified 01/20/23 21:22 Sulfa (Sulfonamide Allergy Intermediate RASH TO Verified 01/20/23 21:22 Antibiotics) SULFA DRUGS tetracycline Allergy Intermediate RASH Verified 01/20/23 21:22 capsaicin AdvReac Intermediate CREATINE Verified 01/20/23 21:23 ELEVATION diclofenac AdvReac Intermediate CREATINE Verified 01/20/23 21:23 ELEVATION propylene glycol AdvReac Intermediate CREATINE Verified 01/20/23 21:23 ELEVATION "PREP WITH BLUE DYE" Allergy Intermediate Rash Uncoded 01/20/23 21:22 Home Medications Medication Instructions Recorded Confirmed Type magnesium oxide 400 mg PO BID 07/26/18 01/20/23 History omega 5-wwq-qsc-fish oil 1,000 mg 1,000 mg PO BID 07/26/18 01/20/23 History (120 mg-180 mg) capsule (Fish Oil) cetirizine 10 mg tablet (Zyrtec) 10 mg PO HS 08/22/19 01/20/23 History betamethasone valerate 0.1 % 1 applic topical UD PRN PSORIASIS 11/30/19 01/20/23 History topical cream blood-glucose meter (Accu-Chek 02/12/21 09/25/22 History Garima Plus Meter) prednisone 5 mg tablet 5 mg PO HS #90 tabs 01/07/22 01/20/23 Rx nitroglycerin 0.4 mg/hr 1 patch transdermal QAM #90 ea 03/20/22 01/20/23 Rx transdermal 24 hour patch (Nitro-Dur) nifedipine 90 mg tablet,extended 90 mg PO HS #90 tabs 04/14/22 01/20/23 Rx release duloxetine 60 mg capsule,delayed 60 mg PO QAM #90 caps 05/12/22 01/20/23 Rx release (Cymbalta) spironolactone 25 mg tablet 25 mg PO BID #180 tabs 06/02/22 01/20/23 Rx (Aldactone) cholestyramine (with sugar) 4 gram 4 ea PO DIRECTED PRN NEEDED 08/26/22 01/20/23 History oral powder PER PT. levothyroxine 137 mcg capsule 137 mcg PO DAILY #90 caps 08/27/22 01/20/23 Rx empagliflozin 10 mg tablet 10 mg PO DAILY #90 tabs 09/03/22 01/20/23 Rx (Jardiance) calcitriol 0.5 mcg capsule 0.5 mcg PO DAILY #90 caps 09/19/22 01/20/23 Rx albuterol sulfate 90 mcg/actuation 2 puff inhalation Q6H PRN 09/30/22 01/20/23 Rx aerosol inhaler shortness of breath or wheezing #8.5 grams budesonide-formoterol HFA 80 2 puff inhalation BID #3 Inhalers 09/30/22 01/20/23 Rx mcg-4.5 mcg/actuation aerosol inhaler (Symbicort) azelastine 137 mcg (0.1 %) nasal 2 spray intranasal DAILY PRN 11/17/22 01/20/23 Rx spray aerosol ALLERGIES #30 mL blood sugar diagnostic (Accu-Chek #100 ea 12/19/22 Rx Garima Plus test strips) potassium chloride 20 mEq 20 meq PO QAM #90 tabs 01/09/23 01/20/23 Rx tablet,extended release(part/cryst) (Klor-Con M) apixaban 5 mg tablet (Eliquis) 5 mg PO BID #180 tabs 01/15/23 01/20/23 Rx montelukast 10 mg tablet 10 mg PO DAILY #90 tabs 01/19/23 01/20/23 Rx (Singulair) acetaminophen 650 mg 1,300 mg PO BID 01/20/23 01/20/23 History tablet,extended release (Tylenol Arthritis Pain) dulaglutide 0.75 mg/0.5 mL 0.75 mg subcut WK 01/20/23 01/20/23 History subcutaneous pen injector (Trulicity) levalbuterol HCl 0.63 mg/3 mL 0.63 mg inhalation Q4H PRN Cough 01/20/23 01/20/23 History solution for nebulization Past Med/Surg History Medical History (Updated 01/21/23 @ 14:32 by Jarocho Herrera MD) Abnormal PFT Active asthma inhaler daily/prn, nebulizer prn Allergic rhinitis Atrial fibrillation Chronic dyspnea Chronic steroid use FOR PSORITRIC ARTHRITIS CKD (chronic kidney disease) stage 4, GFR 15-29 ml/min baseline creatinine 2.0-2.2 range; nephrology (Dr. Stevenson) monitoring Esophageal dysmotility Esophageal spasm Essential hypertension Gastric polyp GERD (gastroesophageal reflux disease) CONTROLLED WITH MEDS Hearing loss, right DEAF RIGHT EAR Hiatal hernia HTN (hypertension) Hyperlipidemia Hypothyroidism Iron deficiency anemia Irritable bowel syndrome assisted current use of systemic steroids for psoriatic arthritis Mild persistent asthma Obesity On anticoagulant therapy eliquis bid Paroxysmal atrial fibrillation follows with Dr. Mitchell on eliquis bid Peptic ulcer disease Polyneuropathy Psoriatic arthropathy Restless leg syndrome Schatzki's ring Seasonal allergies Sometimes gets bronchitis, uses nebulizer for this and allergies Sialoadenitis, unspecified Sinus congestion Spinal meningioma On c-spine- follows with [facility] [place] (Dr. Ken)- under surveillance/stable/no indication for surgical intervention Tinnitus of right ear Type II diabetes mellitus Varicose veins of legs Surgical History H/O thyroidectomy History of arthroscopy RT/LEFT KNEE History of arthroscopy of right shoulder History of cardiac cath X2; 10+ YEARS AGO (NO STENTS) History of cataract extraction RT/LEFT History of cholecystectomy History of colectomy (~06/2020) @ [facility] History of colonoscopy last 03/2020 History of dilatation and curettage History of esophagogastroduodenoscopy (EGD) History of foot surgery RT FOOT FUSION History of laparoscopy (~06/2020) exploratory after colectomy @ [facility] History of lumbar fusion History of tonsillectomy and adenoidectomy History of tooth extraction History of total abdominal hysterectomy and bilateral salpingo-oophorectomy History of total hip arthroplasty RIGHT 05/27/19. Complicated by post-op seroma requiring multiple needle aspirations.LEFT HIP 01/10/20 History of total knee arthroplasty RIGHT History of total left hip arthroplasty 12/2019 Status post total replacement of left shoulder hx of Family History Mother Arthritis Hypertension Father Lung cancer Hypertension Family/Other Family hx of colon cancer 1st cousin Unknown Allergies Breast cancer Hypertension Brother Cancer Heart disease Aunt Colorectal cancer Other No family history of adverse response to anesthesia No family history of bleeding disorder Denies family history of Ovarian cancer Prostate cancer Diabetes Hearing loss Myocardial infarction Stroke Asthma Social History Smoking Status: Never smoker Tobacco Type: Cigarettes Age Quit Using Tobacco: 26; Second Hand Exposure: Yes (parents smoked); Do You Dip or Chew Tobacco: No; Hx Alcohol Use: Yes Alcohol type: wine Hx Substance Use: No Preferred Language: Malay Communication Ability: Effective Communication Ability Comment: DEAF RIGHT EAR Visual Impairment: Limited Hearing Ability: Hard of Hearing Centrifuge Separator Tender Required: No Beliefs That Will Affect Care: None marital status: / Current Living Situation: Family Current Living Situation Comment: Lives with niece 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 Physical Exam Constitutional: WD/WN, vitals as above Eyes: PERRL, conjunctivae normal, anicteric sclerae Respiratory: normal respiratory effort, lungs clear to auscultation Cardiovascular: Rate/Rhythm: + irregularly irregular Heart Sounds: normal S1 and normal S2 No edema Gastrointestinal (Abdomen): normal bowel sounds, soft, nontender, no hepatosplenomegaly Psychiatric: A+Ox3, euthymic affect Results & Data Results & Data Vital Signs (Past 12 Hours) Vital Signs Temp Pulse Resp BP Pulse Ox O2 Del Method O2 Flow Rate 01/20/23 21:00 110 H 01/20/23 19:42 136 H 01/20/23 20:10 134 H 19 97 01/20/23 20:00 101 H 19 95 01/20/23 20:00 125/102 H 01/20/23 19:55 115 H 20 95 01/20/23 19:55 133/102 H 01/20/23 19:50 107 H 10 L 97 01/20/23 19:43 124 H 27 H 99 01/20/23 19:38 136 H 28 H 97 Room Air 01/20/23 19:34 140 H 31 H 96 Room Air 01/20/23 19:34 31 H 96 Room Air 01/20/23 19:34 96 Room Air 0 01/20/23 19:24 36.5 C 132 H 25 H 163/102 H 97 Room Air Supervising Physician Co-Signing Physician Notes Attending addendum: I have physically seen this patient, have supervised the medical residents activities, and agree with the H&P unless as otherwise noted. Assessment and Plan: Paroxysmal atrial fibrillation with RVR/hypertension- The patient will be admitted to telemetry for serial cardiac enzymes, serial EKG's, cardiac rhythm monitoring and a 2-D echocardiogram with Dopplers. Troponin 25.2 on admission Status post diltiazem 20 mg IV in ED improved rate control Continue Eliquis 5 mg p.o. twice daily Potassium 3.6, given 40 mEq p.o., repeat laboratories in a.m. Continue spironolactone Hold nifedipine Asthma- Continue home inhalers Chronic steroid use- Continue 5 mg daily 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 Continue empagliflozin for heart failure control [facility] Accu-Cheks with NovoLog SSI Remaining orders and notations as noted Resident Activity Tracking Resident Involvement: Resident Care Provided Care Provided: Adult Hospital Medicine (5) GERD (gastroesophageal reflux disease) Esophagitis presence: esophagitis presence not specified Qualified Code(s): K21.9 - Gastro-esophageal reflux disease without esophagitis (11) Type II diabetes mellitus Chronic kidney disease stage: stage 4 (severe) 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 complication detail: with chronic kidney disease 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 complication status: with kidney complications 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 insulin use: without 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 use Qualified Code(s): E11.22 - Type 2 diabetes mellitus with diabetic chronic kidney disease; N18.4 - Chronic kidney disease, stage 4 (severe)
[2023-01-20 21:35] LABS: Magnesium 2.2 mg/dl (1.7-2.4)
[2023-01-20] MEDS ORDERED: POTASSIUM CHLORIDE CRTAB 20 MEQ TABCR PO STA (21:47)
--- NOTE | 2023-01-20 22:28 | XRay Report ---
SINGLE VIEW CHEST CLINICAL HISTORY: Palpitations. FINDINGS: An AP, portable, upright chest radiograph is compared to study dated 10/07/2021. The heart i s enlarged. The pulmonary vasculature is noncongested. Chronic interstitial thickening is similar to previous. The lungs and pleural spaces are clear. No pneumothorax is seen. The skeletal structures ar e osteopenic. The bony thorax is grossly intact. A left shoulder arthroplasty is in place. Arthritic change is noted in the right shoulder. IMPRESSION: Cardiomegaly with no active disease in the chest. ACT 112: Negative or not required by law. Electronically signed by: Peña Howard M.D. 01/20/2023 10:27 PM
--- NOTE | 2023-01-20 22:54 | Emergency Department Note ---
History of Present Illness General Chief Complaint: Arrhythmia/Palpitations Stated Complaint: AFIB Time Seen by Provider: 01/20/23 19:32 History of Present Illness Provider Complaint: + palpitations and + atrial fibrillation Onset (ago): 1 day(s) Duration: + Constant and + Worsening Severity: similar to previous episodes Context: + occurred during rest Arrhythmia history: + atrial fibrillation and + on anti-coagulants (eliquis) Associated symptoms: + near-syncope; no chest pain, no shortness of breath, no syncope, no nausea, no vomiting, no anxiety or no cough Home Medications Medication Instructions Recorded Confirmed Type magnesium oxide 400 mg PO BID 07/26/18 01/20/23 History omega 6-zdn-nub-fish oil 1,000 mg 1,000 mg PO BID 07/26/18 01/20/23 History (120 mg-180 mg) capsule (Fish Oil) cetirizine 10 mg tablet (Zyrtec) 10 mg PO HS 08/22/19 01/20/23 History betamethasone valerate 0.1 % 1 applic topical UD PRN PSORIASIS 11/30/19 01/20/23 History topical cream blood-glucose meter (Accu-Chek 02/12/21 09/25/22 History Garima Plus Meter) prednisone 5 mg tablet 5 mg PO HS #90 tabs 01/07/22 01/20/23 Rx nitroglycerin 0.4 mg/hr 1 patch transdermal QAM #90 ea 03/20/22 01/20/23 Rx transdermal 24 hour patch (Nitro-Dur) nifedipine 90 mg tablet,extended 90 mg PO HS #90 tabs 04/14/22 01/20/23 Rx release duloxetine 60 mg capsule,delayed 60 mg PO QAM #90 caps 05/12/22 01/20/23 Rx release (Cymbalta) spironolactone 25 mg tablet 25 mg PO BID #180 tabs 06/02/22 01/20/23 Rx (Aldactone) cholestyramine (with sugar) 4 gram 4 ea PO DIRECTED PRN NEEDED 08/26/22 01/20/23 History oral powder PER PT. levothyroxine 137 mcg capsule 137 mcg PO DAILY #90 caps 08/27/22 01/20/23 Rx empagliflozin 10 mg tablet 10 mg PO DAILY #90 tabs 09/03/22 01/20/23 Rx (Jardiance) calcitriol 0.5 mcg capsule 0.5 mcg PO DAILY #90 caps 09/19/22 01/20/23 Rx albuterol sulfate 90 mcg/actuation 2 puff inhalation Q6H PRN 09/30/22 01/20/23 Rx aerosol inhaler shortness of breath or wheezing #8.5 grams budesonide-formoterol HFA 80 2 puff inhalation BID #3 Inhalers 09/30/22 01/20/23 Rx mcg-4.5 mcg/actuation aerosol inhaler (Symbicort) azelastine 137 mcg (0.1 %) nasal 2 spray intranasal DAILY PRN 11/17/22 01/20/23 Rx spray aerosol ALLERGIES #30 mL blood sugar diagnostic (Accu-Chek #100 ea 12/19/22 Rx Garima Plus test strips) potassium chloride 20 mEq 20 meq PO QAM #90 tabs 01/09/23 01/20/23 Rx tablet,extended release(part/cryst) (Klor-Con M) apixaban 5 mg tablet (Eliquis) 5 mg PO BID #180 tabs 01/15/23 01/20/23 Rx montelukast 10 mg tablet 10 mg PO DAILY #90 tabs 01/19/23 01/20/23 Rx (Singulair) acetaminophen 650 mg 1,300 mg PO BID 01/20/23 01/20/23 History tablet,extended release (Tylenol Arthritis Pain) dulaglutide 0.75 mg/0.5 mL 0.75 mg subcut WK 01/20/23 01/20/23 History subcutaneous pen injector (Trulicity) levalbuterol HCl 0.63 mg/3 mL 0.63 mg inhalation Q4H PRN Cough 01/20/23 01/20/23 History solution for nebulization Allergies Allergy/AdvReac Type Severity Reaction Status Date / Time codeine Allergy Severe Anaphylaxis Verified 01/20/23 21:22 celecoxib [From Celebrex] Allergy Intermediate RASH Verified 01/20/23 21:22 cephalexin [From Keflex] Allergy Intermediate Rash Verified 01/20/23 21:22 hydrocodone Allergy Intermediate Rash Verified 01/20/23 21:22 Iodinated Contrast Media Allergy Intermediate RASH Verified 01/20/23 21:22 nickel Allergy Intermediate Rash Verified 01/20/23 21:22 oxycodone Allergy Intermediate Rash Verified 01/20/23 21:22 Sulfa (Sulfonamide Allergy Intermediate RASH TO Verified 01/20/23 21:22 Antibiotics) SULFA DRUGS tetracycline Allergy Intermediate RASH Verified 01/20/23 21:22 capsaicin AdvReac Intermediate CREATINE Verified 01/20/23 21:23 ELEVATION diclofenac AdvReac Intermediate CREATINE Verified 01/20/23 21:23 ELEVATION propylene glycol AdvReac Intermediate CREATINE Verified 01/20/23 21:23 ELEVATION "PREP WITH BLUE DYE" Allergy Intermediate Rash Uncoded 01/20/23 21:22 Past Med/Surg History Medical History Abnormal PFT Active asthma inhaler daily/prn, nebulizer prn Allergic rhinitis Atrial fibrillation Chronic dyspnea Chronic steroid use FOR PSORITRIC ARTHRITIS CKD (chronic kidney disease) stage 4, GFR 15-29 ml/min baseline creatinine 2.0-2.2 range; nephrology (Dr. Stevenson) monitoring Esophageal dysmotility Esophageal spasm Essential hypertension Gastric polyp GERD (gastroesophageal reflux disease) CONTROLLED WITH MEDS Hearing loss, right DEAF RIGHT EAR Hiatal hernia HTN (hypertension) Hyperlipidemia Hypothyroidism Iron deficiency anemia Irritable bowel syndrome FCI current use of systemic steroids for psoriatic arthritis Mild persistent asthma Obesity On anticoagulant therapy eliquis bid Paroxysmal atrial fibrillation follows with Dr. Mitchell on eliquis bid Peptic ulcer disease Polyneuropathy Psoriatic arthropathy Restless leg syndrome Schatzki's ring Seasonal allergies Sometimes gets bronchitis, uses nebulizer for this and allergies Sialoadenitis, unspecified Sinus congestion Spinal meningioma On c-spine- follows with [facility] neurosurgery specialist (Dr. Ken)- under surveillance/stable/no indication for surgical intervention Tinnitus of right ear Type II diabetes mellitus Varicose veins of legs Surgical History H/O thyroidectomy History of arthroscopy RT/LEFT KNEE History of arthroscopy of right shoulder History of cardiac cath X2; 10+ YEARS AGO (NO STENTS) History of cataract extraction RT/LEFT History of cholecystectomy History of colectomy (~06/2020) @ [facility] History of colonoscopy last 03/2020 History of dilatation and curettage History of esophagogastroduodenoscopy (EGD) History of foot surgery RT FOOT FUSION History of laparoscopy (~06/2020) exploratory after colectomy @ [facility] History of lumbar fusion History of tonsillectomy and adenoidectomy History of tooth extraction History of total abdominal hysterectomy and bilateral salpingo-oophorectomy History of total hip arthroplasty RIGHT 05/27/19. Complicated by post-op seroma requiring multiple needle aspirations.LEFT HIP 01/10/20 History of total knee arthroplasty RIGHT History of total left hip arthroplasty 12/2019 Status post total replacement of left shoulder hx of Family History Mother Arthritis Hypertension Father Lung cancer Hypertension Family/Other Family hx of colon cancer 1st cousin Unknown Allergies Breast cancer Hypertension Brother Cancer Heart disease Aunt Colorectal cancer Other No family history of adverse response to anesthesia No family history of bleeding disorder Denies family history of Ovarian cancer Prostate cancer Diabetes Hearing loss Myocardial infarction Stroke Asthma Social History Smoking Status: Never smoker Tobacco Type: Cigarettes Age Quit Using Tobacco: 26; Second Hand Exposure: Yes (parents smoked); Do You Dip or Chew Tobacco: No; Hx Alcohol Use: Yes Alcohol type: wine Hx Substance Use: No Preferred Language: Latvian Communication Ability: Effective Communication Ability Comment: DEAF RIGHT EAR Visual Impairment: Limited Hearing Ability: Hard of Hearing Disc Recordist Required: No Beliefs That Will Affect Care: None marital status: / Current Living Situation: Alone 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 How many Children do You have: 0 Feels Safe at Home: Yes Childhood Exposure to Second-Hand Smoke: Yes caffeine: Yes Dental Care, Regularly: Yes Physical Activity Frequency: Does not Exercise Physical Activity Frequency Comment: Hip problems Seatbelt Use: always Sunscreen Use: No Assistive Devices: Cane, Denture - Upper, Denture - Lower, Glasses and Nebulizer Physical Exam Vital Signs: Vital Signs - 24 hr 01/20/23 19:24 01/20/23 19:34 01/20/23 19:34 Temperature 36.5 C Temperature Source Temporal Artery Sc an Pulse Rate 132 H Pulse Rate from Sp O2 Sensor Pulse Rhythm Respiratory Rate 25 H 31 H Respiratory Effort / Characteristics Spontaneous Short of Breath SOB on E xertion Respiratory Depth Normal Normal Respiratory Patter n Regular Tachypnea Blood Pressure 163/102 H Blood Pressure Jasmyn n 122 Pulse Oximetry 97 96 96 Oxygen Delivery Me thod Room Air Room Air Room Air Oxygen Flow Rate 0 Sepsis Recent Feve r Within 48 Hours No Sepsis New/Unexpla ined Change in Men philipp Status N/A Sepsis Action Take n by Nursing No Action Required 01/20/23 19:34 01/20/23 19:38 01/20/23 19:43 Temperature Temperature Source Pulse Rate 140 H 136 H 124 H Pulse Rate from Sp O2 Sensor 118 H Pulse Rhythm Irregular Irregular Respiratory Rate 31 H 28 H 27 H Respiratory Effort / Characteristics Respiratory Depth Respiratory Patter n Blood Pressure Blood Pressure Jasmyn n Pulse Oximetry 96 97 99 Oxygen Delivery Me thod Room Air Room Air Oxygen Flow Rate Sepsis Recent Feve r Within 48 Hours Sepsis New/Unexpla ined Change in Men philipp Status Sepsis Action Take n by Nursing 01/20/23 19:50 01/20/23 19:55 01/20/23 19:55 Temperature Temperature Source Pulse Rate 107 H 115 H Pulse Rate from Sp O2 Sensor 108 H 135 H Pulse Rhythm Respiratory Rate 10 L 20 Respiratory Effort / Characteristics Respiratory Depth Respiratory Patter n Blood Pressure 133/102 H Blood Pressure Jasmyn n 112 Pulse Oximetry 97 95 Oxygen Delivery Me thod Oxygen Flow Rate Sepsis Recent Feve r Within 48 Hours Sepsis New/Unexpla ined Change in Men philipp Status Sepsis Action Take n by Nursing 01/20/23 20:00 01/20/23 20:00 01/20/23 20:10 Temperature Temperature Source Pulse Rate 101 H 134 H Pulse Rate from Sp O2 Sensor 102 H 154 H Pulse Rhythm Respiratory Rate 19 19 Respiratory Effort / Characteristics Respiratory Depth Respiratory Patter n Blood Pressure 125/102 H Blood Pressure Jasmyn n 109 Pulse Oximetry 95 97 Oxygen Delivery Me thod Oxygen Flow Rate Sepsis Recent Feve r Within 48 Hours Sepsis New/Unexpla ined Change in Men philipp Status Sepsis Action Take n by Nursing 01/20/23 19:42 01/20/23 21:00 01/20/23 20:16 Temperature Temperature Source Pulse Rate 136 H 110 H 96 H Pulse Rate from Sp O2 Sensor 93 H Pulse Rhythm Respiratory Rate 16 Respiratory Effort / Characteristics Respiratory Depth Respiratory Patter n Blood Pressure Blood Pressure Jasmyn n Pulse Oximetry 94 Oxygen Delivery Me thod Oxygen Flow Rate Sepsis Recent Feve r Within 48 Hours Sepsis New/Unexpla ined Change in Men philipp Status Sepsis Action Take n by Nursing 01/20/23 20:16 01/20/23 20:20 01/20/23 20:30 Temperature Temperature Source Pulse Rate 108 H Pulse Rate from Sp O2 Sensor 111 H Pulse Rhythm Respiratory Rate 15 Respiratory Effort / Characteristics Respiratory Depth Respiratory Patter n Blood Pressure 161/113 H 159/115 H Blood Pressure Jasmyn n 129 129 Pulse Oximetry 95 Oxygen Delivery Me thod Oxygen Flow Rate Sepsis Recent Feve r Within 48 Hours Sepsis New/Unexpla ined Change in Men philipp Status Sepsis Action Take n by Nursing 01/20/23 20:30 01/20/23 20:40 01/20/23 20:46 Temperature Temperature Source Pulse Rate 105 H 98 H Pulse Rate from Sp O2 Sensor 108 H 108 H Pulse Rhythm Respiratory Rate 17 21 Respiratory Effort / Characteristics Respiratory Depth Respiratory Patter n Blood Pressure 154/105 H Blood Pressure Jasmyn n 121 Pulse Oximetry 94 96 Oxygen Delivery Me thod Oxygen Flow Rate Sepsis Recent Feve r Within 48 Hours Sepsis New/Unexpla ined Change in Men philipp Status Sepsis Action Take n by Nursing 01/20/23 20:46 01/20/23 20:50 01/20/23 21:00 Temperature Temperature Source Pulse Rate 109 H 97 H 118 H Pulse Rate from Sp O2 Sensor 108 H 97 H 129 H Pulse Rhythm Respiratory Rate 26 H 24 27 H Respiratory Effort / Characteristics Respiratory Depth Respiratory Patter n Blood Pressure Blood Pressure Jasmyn n Pulse Oximetry 94 96 89 L Oxygen Delivery Me thod Oxygen Flow Rate Sepsis Recent Feve r Within 48 Hours Sepsis New/Unexpla ined Change in Men philipp Status Sepsis Action Take n by Nursing 01/20/23 21:01 01/20/23 21:01 01/20/23 21:10 Temperature Temperature Source Pulse Rate 112 H 109 H Pulse Rate from Sp O2 Sensor 99 H 105 H Pulse Rhythm Respiratory Rate 21 31 H Respiratory Effort / Characteristics Respiratory Depth Respiratory Patter n Blood Pressure 176/128 H Blood Pressure Jasmyn n 144 Pulse Oximetry 93 97 Oxygen Delivery Me thod Oxygen Flow Rate Sepsis Recent Feve r Within 48 Hours Sepsis New/Unexpla ined Change in Men philipp Status Sepsis Action Take n by Nursing 01/20/23 21:16 01/20/23 21:16 01/20/23 21:20 Temperature Temperature Source Pulse Rate 115 H 106 H Pulse Rate from Sp O2 Sensor 104 H Pulse Rhythm Respiratory Rate 22 25 H Respiratory Effort / Characteristics Respiratory Depth Respiratory Patter n Blood Pressure 151/101 H Blood Pressure Jasmyn n 117 Pulse Oximetry 96 Oxygen Delivery Me thod Oxygen Flow Rate Sepsis Recent Feve r Within 48 Hours Sepsis New/Unexpla ined Change in Men philipp Status Sepsis Action Take n by Nursing Physical Exam: Physical Exam GENERAL: oriented to person, place, and time. appears well-developed and well- nourished. HENT: Exam performed. - Head: Normocephalic and atraumatic. EYES: Conjunctivae and EOM are normal. Right eye exhibits no discharge. Left eye exhibits no discharge. No scleral icterus. NECK: Normal range of motion. Neck supple. No JVD present. CV: Tachycardic rate, irregular rhythm, normal heart sounds and intact distal pulses. There is no peripheral edema. Palpable radial pulses bue. PULM/CHEST: Effort normal and breath sounds normal. No respiratory distress. No stridor. no wheezes. no rales. ABD: The abdomen is soft. There is no tenderness. NEURO: Motor and sensation grossly intact. SKIN: Skin is warm and dry. He is not diaphoretic. PSYCH: normal mood and affect. Behavior is normal. Judgment and thought content normal. Course Course 1931: The patient was evaluated in room A10. A complete history and physical exam was performed Cardiac monitoring: An order was placed for continuous cardiac monitoring. The monitor shows a rate of 130 with atrial fibrilation rhythm interpreted by me Large-bore IV access was obtained and the patient was given Cardizem bolus 20 mg. This and patient removed the patient's ventricular rate. 2109: Vital signs stable status post initial Cardizem bolus. Labs are within normal limits with exception of an elevated high-sensitivity troponin. Patient has no history of elevated high-sensitivity troponins. Creatinine is about elevated past baseline. Discussed with the patient and we decided to admit the patient to the hospital as opposed to having her follow-up outpatient with cardiology. Admitting hospitalist team Dr. Villanueva notified. Administered Medications Discontinued Medications Diltiazem HCl (Diltiazem Hcl 5 Mg/Ml 5 Ml Vial) Confirm Administered Dose 25 mg IV .ST-MED ONE Stop: 01/20/23 19:39 Last Admin: 01/20/23 20:17 Dose: Not Given Documented By: [employer] Diltiazem HCl (Diltiazem Hcl 5 Mg/Ml 5 Ml Vial) 20 mg IV NOW STA Stop: 01/20/23 19:38 Last Admin: 01/20/23 19:36 Dose: 20 mg Documented By: ANGÉLICA Co-signed By: JACK Medical Decision Making Laboratory Data Attestation: I reviewed the patient's lab results. 01/20/23 19:40 01/20/23 19:40 Lab Results 01/20/23 01/20/23 01/20/23 Range/Units 19:40 19:40 19:40 WBC 7.47 (4.8-10.8) K/ul RBC 4.33 (4.20-5.40) M/uL Hgb 11.2 L (12.0-16.0) g/dl Hct 35.5 L (37.0-47.0) % MCV 82.0 (80.0-100.0) fL MCH 25.9 (25.0-34.0) pg MCHC 31.5 L (32.0-36.0) g/dL RDW Std Deviation 54.3 H (36.4-46.3) fL RDW Coeff of Amrita 18.2 H (11.5-14.5) % Plt Count 395 (130-400) K/uL MPV 10.4 (9.4-12.4) fL Immature Gran % (Auto) 0.3 % Neut % (Auto) 63.5 % Lymph % (Auto) 25.3 % Early % (Auto) 8.3 % Eos % (Auto) 2.1 % Baso % (Auto) 0.5 % Neut # (Auto) 4.74 (1.40-6.50) K/uL Lymph # (Auto) 1.89 (1.20-3.40) K/uL Early # (Auto) 0.62 H (0.11-0.59) K/uL Eos # (Auto) 0.16 (0.00-0.50) K/uL Baso # (Auto) 0.04 (0.00-0.20) K/uL Immature Gran # (Auto) 0.02 (0.01-0.20) K/uL PT 10.9 (9.0-12.0) Seconds INR 1.0 (0.9-1.1) APTT 26.0 (21.0-31.0) Seconds PTT Ratio 0.9 Sodium 137 (136-145) mmol/L Potassium 3.6 (3.5-5.1) mmol/L Chloride 104 (98-107) mmol/L Carbon Dioxide 23 (21-32) mmol/L Anion Gap 10 (3-11) BUN 26 H (6-23) mg/dl Creatinine 1.81 H (0.6-1.2) mg/dl Est Cr Clr Drug Dosing 35.3 ml/min Est GFR ( Amer) 30.9 ml/min Est GFR (Non-Af Amer) 26.7 ml/min BUN/Creatinine Ratio 14.4 (10-20) Glucose 105 H (70-99(Fasting)) mg/dl Calcium 9.4 (8.6-10.3) mg/dl Magnesium 2.2 (1.7-2.4) mg/dl Troponin I High Sens 25.2 H (0-14) pg/ml Lipase 79 (11-82) U/L TSH (0.300-4.500) uIu/ml 01/20/23 Range/Units 19:40 WBC (4.8-10.8) K/ul RBC (4.20-5.40) M/uL Hgb (12.0-16.0) g/dl Hct (37.0-47.0) % MCV (80.0-100.0) fL MCH (25.0-34.0) pg MCHC (32.0-36.0) g/dL RDW Std Deviation (36.4-46.3) fL RDW Coeff of Amrita (11.5-14.5) % Plt Count (130-400) K/uL MPV (9.4-12.4) fL Immature Gran % (Auto) % Neut % (Auto) % Lymph % (Auto) % Early % (Auto) % Eos % (Auto) % Baso % (Auto) % Neut # (Auto) (1.40-6.50) K/uL Lymph # (Auto) (1.20-3.40) K/uL Early # (Auto) (0.11-0.59) K/uL Eos # (Auto) (0.00-0.50) K/uL Baso # (Auto) (0.00-0.20) K/uL Immature Gran # (Auto) (0.01-0.20) K/uL PT (9.0-12.0) Seconds INR (0.9-1.1) APTT (21.0-31.0) Seconds PTT Ratio Sodium (136-145) mmol/L Potassium (3.5-5.1) mmol/L Chloride (98-107) mmol/L Carbon Dioxide (21-32) mmol/L Anion Gap (3-11) BUN (6-23) mg/dl Creatinine (0.6-1.2) mg/dl Est Cr Clr Drug Dosing ml/min Est GFR ( Amer) ml/min Est GFR (Non-Af Amer) ml/min BUN/Creatinine Ratio (10-20) Glucose (70-99(Fasting)) mg/dl Calcium (8.6-10.3) mg/dl Magnesium (1.7-2.4) mg/dl Troponin I High Sens (0-14) pg/ml Lipase (11-82) U/L TSH 1.980 (0.300-4.500) uIu/ml Imaging Data Attestation: I personally reviewed and interpreted this imaging study as fol lows: My Impression: Chest x-ray negative. Airway clear. No pneumothorax. No consolidation. cardiomegaly present with no cephalization.. No free air under the diaphragm. No fractures of the skeletal structures. Radiologist's Impression: Chest X-Ray 01/20/23 00:00 SINGLE VIEW CHEST CLINICAL HISTORY: Palpitations. FINDINGS: An AP, portable, upright chest radiograph is compared to study dated 10/07/2021. The heart is enlarged. The pulmonary vasculature is noncongested. Chronic interstitial thickening is similar to previous. The lungs and pleural spaces are clear. No pneumothorax is seen. The skeletal structures are osteopenic. The bony thorax is grossly intact. A left shoulder arthroplasty is in place. Arthritic change is noted in the right shoulder. IMPRESSION: Cardiomegaly with no active disease in the chest. ACT 112: Negative or not required by law. Electronically signed by: Peña Howard M.D. 01/20/2023 10:27 PM ECG Data Attestation: I personally reviewed and interpreted this ECG as follows: Additional Comments: EKG #1 at 1936: Atrial fibrillation with rate of 129. QRS [address] elevation or ST depression. EKG #2 at 1947 status post Cardizem bolus: Atrial fibrillation with rate of 111. QRS and QTc intervals within normal limits. No ST elevation or ST depression. MDM Narrative 1931: The patient was evaluated in room A10. A complete history and physical exam was performed Cardiac monitoring: An order was placed for continuous cardiac monitoring. The monitor shows a rate of 130 with atrial fibrilation rhythm interpreted by me Large-bore IV access was obtained and the patient was given Cardizem bolus 20 mg. This and patient removed the patient's ventricular rate. 2109: Vital signs stable status post initial Cardizem bolus. Labs are within normal limits with exception of an elevated high-sensitivity troponin. Patient has no history of elevated high-sensitivity troponins. Creatinine is about elevated past baseline. Discussed with the patient and we decided to admit the patient to the hospital as opposed to having her follow-up outpatient with cardiology. Admitting hospitalist team Dr. Villanueva notified. Impression & Plan Atrial fibrillation with RVR, Elevated troponin Critical Care Time Critical Care Time: Yes Total Critical Care Time: 67 I have personally spent greater than 67 minutes of critical care time in the direct management of this patient. This includes bedside care, interpretation of diagnostic studies, and testing, discussion with consultants, patient, and family members, and other required patient management activities. This 67 minutes is in excess of all separately billable procedures. Discharge Plan Visit Data Chief Complaint: Arrhythmia/Palpitations Stated Complaint: AFIB ED Provider: Jerry Jimenez Discharge Problem: Atrial fibrillation with RVR, Elevated troponin Patient Disposition: Admitted As Inpatient Forms Stand Alone Forms: My [facility] Prescriptions Prescriptions: No Action prednisone 5 mg tablet 5 mg PO HS Qty: 90 3RF nifedipine 90 mg tablet extended release 90 mg PO HS Qty: 90 3RF duloxetine [Cymbalta] 60 mg capsule,delayed release(DR/EC) 60 mg PO QAM Qty: 90 3RF spironolactone [Aldactone] 25 mg tablet 25 mg PO BID Qty: 180 2RF levothyroxine 137 mcg capsule 137 mcg PO DAILY Qty: 90 3RF azelastine 137 mcg (0.1 %) aerosol,spray 2 spray INTRANASAL DAILY PRN (Reason: ALLERGIES) Qty: 30 0RF (DME) Accu-Chek Garima Plus test strp Strip See Rx Instructions .ROUTE .MEDSUPPLY Qty: 100 3RF Rx Instructions: Check blood sugars once PRN potassium chloride [Klor-Con M20] 20 mEq tablet,ER particles/crystals 20 meq PO QAM Qty: 90 3RF Eliquis 5 mg tablet 5 mg PO BID Qty: 180 3RF montelukast [Singulair] 10 mg tablet 10 mg PO DAILY Qty: 90 3RF (DME) blood-glucose meter [Accu-Chek Garima Plus Meter] Misc See Rx Instructions .ROUTE .MEDSUPPLY Rx Instructions: Used to check blood sugars once PRN nitroglycerin [Nitro-Dur] 0.4 mg/hr patch 24 hour 1 patch TRANSDERMAL QAM Qty: 90 3RF Rx Instructions: remove after 12 hours Jardiance 10 mg tablet 10 mg PO DAILY Qty: 90 3RF Rx Instructions: Take one tablet once daily by mouth. cholestyramine (with sugar) 4 gram powder 4 ea PO DIRECTED PRN (Reason: NEEDED PER PT.) albuterol sulfate 90 mcg/actuation HFA aerosol inhaler 2 puff inhalation Q6H PRN (Reason: shortness of breath or wheezing) Qty: 8.5 2RF budesonide-formoterol [Symbicort] 80-4.5 mcg/actuation HFA aerosol inhaler 2 puff inhalation BID Qty: 3 3RF calcitriol 0.5 mcg capsule 0.5 mcg PO DAILY Qty: 90 3RF cetirizine [Zyrtec] 10 mg Tablet 10 mg PO HS betamethasone valerate 0.1 % cream 1 applic TOPICAL UD PRN (Reason: PSORIASIS ) Rx Instructions: Apply to areas of the arms twice daily for up to 2 weeks as needed for flari ng. omega 5-pla-ymr-fish oil [Fish Oil] 1,000 mg (120 mg-180 mg) Capsule 1,000 mg PO BID magnesium oxide 400 mg magnesium Tablet 400 mg PO BID levalbuterol HCl [Xopenex] 0.63 mg/3 mL Solution For Nebulization 0.63 mg INHALATION Q4H PRN (Reason: Cough) acetaminophen [Tylenol Arthritis Pain] 650 mg Tablet Extended Release 1,300 mg PO BID Trulicity 0.75 mg/0.5 mL pen injector 0.75 mg subcut WK Rx Instructions: THURSDAYS Inject once weekly into the abdomen. Referrals Referrals: Basedow,Sujatha, DO [Primary Care Provider] -
[2023-01-21] MEDS ORDERED: LEVALBUTEROL HCL 0.63 MG/3 ML NEB INH PRN (01:06)
[2023-01-21] MEDS ORDERED: POLYETHYLENE (MIRALAX) 17 GM PACK PO PRN (01:06)
[2023-01-21] MEDS ORDERED: ONDANSETRON INJ 2 MG/ML 2 ML VIAL IV PRN (01:06)
[2023-01-21] MEDS ORDERED: ALBUTEROL HFA 8 GM INHALER INH PRN (01:06)
[2023-01-21] MEDS: predniSONE 5 MG TAB PO SCH ×2 (01:50→21:45)
--- NOTE | 2023-01-21 06:35 | Hospitalist Progress Note ---
Date of Service January 21, 2023 Assessment & Plan (1) Paroxysmal atrial fibrillation: Plan: 77 year old female w/ PmHx osteoarthritis, HTN, T2DM, CKD, mild persistent asthma, allergic rhinitis, sialoadenitis, paroxysmal atrial fibrillation on Eliquis admitted for A fib w/ RVR. Paroxysmal A. fib: -Past history of paroxysmal A. fib diagnosed 3 years ago. -K+ 3.6, Mg 2.2, TSH 1.980 on admission. -No clear trigger for this instance of atrial fibrillation. -Given diltiazem 20mg IV in the ED with rates coming down thereafter. -Consulted cardiology, will appreciate recommendations. - Amiodarone started -Continue home Eliquis 5mg -Keep K >4, Mg >2. -follow labs am History of asthma: -continue home inhaler regimen of budesonide-formoterol BID, Xopenex PRN. Chronic steroid use: -Patient had been on steroids orally previously and had tried to wean down but had issues with 4mg -Continue 5mg daily prednisone while inpatient. HTN: -Continue home spironolactone, nifedipine. osteoarthritis: -Tylenol PRN for pain. T2DM: -A1c 6.7, holding home diabetes medications while inpatient. -If glucoses start to creep up can add on SSI coverage. CKD: -Creatinine 1.81 on admission, baseline 1.6-1.8. -Avoid nephrotoxic agents. -Monitor with daily BMP. Iron deficiency anemia: -Hemoglobin 11.2 on admission, baseline 11-12. -Monitor with daily CBC. Depression/Anxiety: -continue duloxetine. GERD: -continue home nexium F/E/N/GI: Heart Healthy DVT Prophylaxis: Continue home Eliquis. Code status: Full code. Dispo: PCU/tele. (2) SI joint arthritis: (3) Hyperlipidemia associated with type 2 diabetes mellitus: (4) Osteoarthritis, knee: (5) GERD (gastroesophageal reflux disease): (6) Depression: (7) Anxiety: (8) Chronic kidney disease with active medical management without dialysis, stage 3 (moderate): (9) Hypertension: (10) Mild persistent asthma: (11) Type II diabetes mellitus: (12) Iron deficiency anemia: (13) Hypothyroidism: Admission and Anticipated Discharge Date Admission Date: January 20, 2023 Supervising Physician Co-Signing Physician Notes I personally examined the patient and verified all ellis points of history and exam, discussed case, and agree with decision making with Dr Rodrick Ferreira. Feeling okay. Does not really feel her rate related symptoms now, although she did prior to admission. No current complaints. Cardiology input greatly appreciated. Vitals noted, in general she is awake and alert pleasant no distress. HEENT normocephalic atraumatic mucous membranes moist. Breathing unlabored no accessory muscle use good effort. Skin shows no rashes no pallor or icterus. afib/flutter/sick sinus - cautiously working on rate control, may need pacer soon, continue anticoagulation Subjective Mike is a 77 year old female w/ PmHx osteoarthritis, HTN, T2DM, CKD, mild persistent asthma, allergic rhinitis, sialoadenitis, paroxysmal atrial fibrillation on eliquis coming in for persistent atrial fibrillation. Patient states that last night she was getting up to go to the bathroom when she had felt a little short of breath. Her fitbit had told her the heart rate was elevated and irregular. She contacted the cardiology office this morning and they performed an EKG which showed A. fib with RVR and she was instructed to go to the ED if it persisted past 24 hours. Her history of atrial fibrillation goes back to December of 2019 when she was having hip surgery and it was spotted on routine monitoring. She states whenever she gets atrial fibrillation it usually lasts for a short period of time such as 30 minutes to a few hours. She is usually able to tell this from her fitbit since the high heart rates are not generally accompanied by symptoms. She denies any recent fevers, chills, diarrhea, constipation, headaches, cough, shortness of breath currently, chest pain, congestion. She was not doing anything physically exerting when the onset happened, she says just walking to the bathroom. Patient evaluated at bedside found AAOx3, in no acute distress. This morning episode of HR over 140, symptomatic, Metoprolol 5 mg IV was given. She denied SOB, nausea,abdominal pain, vomits , diarrhea, or any other symtomps. Review of Systems Review of Systems: as per HPI Physical Exam Constitutional: WD/WN, vitals as above ENMT: external ear and nose normal, oropharynx normal Respiratory: normal respiratory effort, lungs clear to auscultation Cardiovascular: Rate/Rhythm: + irregularly irregular Heart Sounds: normal S1 and normal S2; no gallop and no murmur Gastrointestinal (Abdomen): normal bowel sounds, soft, nontender, no hepatosplenomegaly Musculoskeletal: no cyanosis or clubbing, extremities motor strength 5/5 Results & Data Results & Data Vital Signs (Past 12 Hours) Vital Signs Temp Pulse Pulse Resp BP BP Pulse Ox 01/21/23 01:35 131 H 01/21/23 04:00 36.8 C 126 H 22 144/90 H 99 01/21/23 01:07 36.6 C 70 24 144/94 H 97 01/21/23 00:40 103 H 17 01/21/23 00:30 88 18 01/21/23 00:30 165/103 H 01/21/23 00:20 108 H 21 01/21/23 00:15 119 H 20 01/21/23 00:15 145/109 H 01/21/23 00:10 115 H 21 01/21/23 00:00 119 H 26 H 01/21/23 00:00 139/96 01/20/23 23:50 119 H 25 H 01/20/23 23:46 140/90 01/20/23 23:46 117 H 20 01/20/23 23:40 119 H 20 01/20/23 23:30 131 H 25 H 01/20/23 23:30 143/115 H 01/20/23 23:20 117 H 24 95 01/20/23 23:15 152/131 H 01/20/23 23:15 65 26 H 97 01/20/23 23:10 123 H 34 H 97 01/20/23 23:00 129 H 18 95 01/20/23 22:57 120 H 20 96 01/20/23 22:57 152/105 H 01/20/23 22:50 109 H 24 93 01/20/23 22:40 120 H 21 94 01/20/23 22:30 109 H 19 94 01/20/23 22:30 162/116 H 01/20/23 22:20 113 H 27 H 95 01/20/23 22:15 135/107 H 01/20/23 22:15 144 H 23 90 01/20/23 22:10 102 H 26 H 98 01/20/23 22:01 137/112 H 01/20/23 22:01 119 H 25 H 01/20/23 22:00 123 H 22 97 01/20/23 21:50 112 H 18 95 01/20/23 21:46 179/110 H 01/20/23 21:46 107 H 25 H 95 01/20/23 21:40 101 H 25 H 96 01/20/23 21:30 103 H 23 97 01/20/23 21:30 134/111 H 01/20/23 22:56 105 H 25 H 152/105 H 95 01/20/23 21:20 106 H 25 H 96 01/20/23 21:16 151/101 H 01/20/23 21:16 115 H 22 01/20/23 21:10 109 H 31 H 97 01/20/23 21:01 112 H 21 93 01/20/23 21:01 176/128 H 01/20/23 21:00 118 H 27 H 89 L 01/20/23 20:50 97 H 24 96 01/20/23 20:46 109 H 26 H 94 01/20/23 20:46 154/105 H 01/20/23 20:40 98 H 21 96 01/20/23 20:30 105 H 17 94 01/20/23 20:30 159/115 H 01/20/23 20:20 108 H 15 95 01/20/23 20:16 161/113 H 01/20/23 20:16 96 H 16 94 01/20/23 21:00 110 H 01/20/23 19:42 136 H 01/20/23 20:10 134 H 19 97 01/20/23 20:00 101 H 19 95 01/20/23 20:00 125/102 H 01/20/23 19:55 115 H 20 95 01/20/23 19:55 133/102 H 01/20/23 19:50 107 H 10 L 97 01/20/23 19:43 124 H 27 H 99 01/20/23 19:38 136 H 28 H 97 01/20/23 19:34 140 H 31 H 96 01/20/23 19:34 31 H 96 01/20/23 19:34 96 01/20/23 19:24 36.5 C 132 H 25 H 163/102 H 97 O2 Del Method O2 Flow Rate 01/21/23 01:35 01/21/23 04:00 Room Air 01/21/23 01:07 Room Air 01/21/23 00:40 01/21/23 00:30 01/21/23 00:30 01/21/23 00:20 01/21/23 00:15 01/21/23 00:15 01/21/23 00:10 01/21/23 00:00 01/21/23 00:00 01/20/23 23:50 01/20/23 23:46 01/20/23 23:46 01/20/23 23:40 01/20/23 23:30 01/20/23 23:30 01/20/23 23:20 01/20/23 23:15 01/20/23 23:15 01/20/23 23:10 01/20/23 23:00 01/20/23 22:57 01/20/23 22:57 01/20/23 22:50 01/20/23 22:40 01/20/23 22:30 01/20/23 22:30 01/20/23 22:20 01/20/23 22:15 01/20/23 22:15 01/20/23 22:10 01/20/23 22:01 01/20/23 22:01 01/20/23 22:00 01/20/23 21:50 01/20/23 21:46 01/20/23 21:46 01/20/23 21:40 01/20/23 21:30 01/20/23 21:30 01/20/23 22:56 Room Air 01/20/23 21:20 01/20/23 21:16 01/20/23 21:16 01/20/23 21:10 01/20/23 21:01 01/20/23 21:01 01/20/23 21:00 01/20/23 20:50 01/20/23 20:46 01/20/23 20:46 01/20/23 20:40 01/20/23 20:30 01/20/23 20:30 01/20/23 20:20 01/20/23 20:16 01/20/23 20:16 01/20/23 21:00 01/20/23 19:42 01/20/23 20:10 01/20/23 20:00 01/20/23 20:00 01/20/23 19:55 01/20/23 19:55 01/20/23 19:50 01/20/23 19:43 01/20/23 19:38 Room Air 01/20/23 19:34 Room Air 01/20/23 19:34 Room Air 01/20/23 19:34 Room Air 0 01/20/23 19:24 Room Air Resident Activity Tracking Resident Involvement: Resident Care Provided Care Provided: Adult [facility] (5) GERD (gastroesophageal reflux disease) Esophagitis presence: esophagitis presence not specified Qualified Code(s): K21.9 - Gastro-esophageal reflux disease without esophagitis (11) Type II diabetes mellitus Chronic kidney disease stage: stage 4 (severe) 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 complication detail: with chronic kidney disease 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 complication status: with kidney complications 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 correction insulin use: without correction use Qualified Code(s): E11.22 - Type 2 diabetes mellitus with diabetic chronic kidney disease; N18.4 - Chronic kidney disease, stage 4 (severe)
[2023-01-21] MEDS: LEVOTHYROXINE SODIUM 137 MCG TABLET PO SCH (06:50)
--- OUTSIDE RECORDS SUMMARY | 2023-01-21 06:58 | External Medical Summary | Continuity of Care Document ---
Author Name Unknown Organization [place] [address] [address] [place] [address] [place] [id number] Care Team Providers Care Web Press Roll Tender Name Role Phone AlpattyJohn Primary Care Physician [phone] [id number] Date(s): 01/06/23 - 01/06/23 [place] [address] [address] [facility] [address] [facility] [address], [address] [place] [address] [phone] Encounter Diagnosis Body mass index [BMI] 32.0-32.9, adult(Discharge Diagnosis) - 01/06/23 Meningioma(Discharge Diagnosis) - 01/06/23 Discharge Disposition: Home or Self Care Attending Physician: MD Jesus Manuel, Sam Lemon Allergies, Adverse Reactions, Alerts Substance Reaction Severity Status codeine Anaphylaxis Active tetracycline rash Active cephalexin Rash Active diclofenac Creatine elevation Active isopropyl alcohol topical Creatine elevation Active sulfa drugs mouth ulcers Active celecoxib creatine elevation Active Nickel skin irritation Active IVP dye rash Active Voltaren Topical raised enzymes Active Allergy Not found in Search 1, 2, 3 creatinine elevati on Active OxyCONTIN rash Active 1Propylene glycol 2Capsaicin 3Diclopak Medications acetaminophen Start: 06/14/20 14:43:00 EST, 1,000 mg =, PO, q12h Start Date: 06/14/20 Status: Ordered azelastine 137 mcg/inh (0.1%) nasal spray Start: 07/03/16 7:58:00, 1 spray, each nostril, bid, PRN: as needed for allergy symptoms Start Date: 07/03/16 Status: Ordered benzonatate Start: 12/29/18 13:29:00 EDT, 100 mg =, bid Start Date: 12/29/18 Status: Ordered betamethasone Start: 06/14/20 14:42:00 EST, 1 kathleen, bid Start Date: 06/14/20 Status: Ordered Calcium and Magnesium oral tablet Start: 12/29/18 13:02:00 EDT, 1 tab, PO, Daily Start Date: 12/29/18 Status: Ordered cholestyramine 4 g/9 g oral powder for reconstitution Start: 07/10/20 10:21:00 EST, 4 g =, PO, Daily, Disp# 30 each, 1 packet daily for 30 days dissolve in water or juice, Pharmacy: [facility] Start Date: 07/10/20 Stop Date: 08/09/20 Status: Ordered clobetasol 0.05% topical cream Start: 12/29/18 13:08:00 EDT, 1 appl, topical, Daily Start Date: 12/29/18 Status: Ordered Dilaudid 2 mg oral tablet Start: 06/22/20 11:09:00 EST, 1 tab, PO, q4h, Disp# 24 tab, Refills: 0, PRN: as needed for pain, Pharmacy: [facility] Start Date: 06/22/20 Status: Ordered DULoxetine Start: 12/29/18 13:53:00 EDT, 60 mg =, Daily Start Date: 12/29/18 Status: Ordered Eliquis 5 mg oral tablet Start: 04/17/20 13:59:00 EST, 1 tab, PO, bid Start Date: 04/17/20 Status: Ordered Fish Oil 1000 mg oral capsule Start: 12/29/18 13:31:00 EDT, 1 cap, PO, bid Start Date: 12/29/18 Status: Ordered levalbuterol 0.63 mg/3 mL for nebulization Start: 06/17/20 16:11:00 EST, 3 mL, NEB, q4h, PRN: as needed for wheezing Start Date: 06/17/20 Status: Ordered levalbuterol 0.63 mg/3 mL for nebulization Start: 12/29/18 13:28:00 EDT Start Date: 12/29/18 Status: Ordered levothyroxine 100 mcg (0.1 mg) oral tablet Start: 04/17/20 14:03:00 EST, 1 tab, PO, Daily Start Date: 04/17/20 Status: Ordered magnesium oxide Start: 12/29/18 13:54:00 EDT, 400 mg =, Daily Start Date: 12/29/18 Status: Ordered Metoprolol Succinate ER 25 mg oral tablet, extended release Start: 06/17/20 16:06:00 EST, 1 tab, PO, Daily Start Date: 06/17/20 Status: Ordered NIFEdipine (Eqv-Procardia XL) 90 mg oral tablet, extended release Start: 04/17/20 14:02:00 EST Start Date: 04/17/20 Status: Ordered nitroglycerin 0.4 mg sublingual spray Start: 12/29/18 13:04:00 EDT, 2 spray, SL, q5min, PRN: as needed for chest pain Start Date: 12/29/18 Status: Ordered nitroglycerin 0.4 mg/hr transdermal film, extended release Start: 12/29/18 13:59:00 EDT, 1 patch, transdermal, Daily Start Date: 12/29/18 Status: Ordered nystatin-triamcinolone 100,000 units/g-0.1% topical cream Start: 03/14/15 16:08:00, 1 appl, topical, bid, Disp# 60 g, Refills: 2, apply to skinfold areas, Pharmacy: [address] Start Date: 03/14/15 Status: Ordered ocular lubricant ophthalmic solution Start: 07/06/20 10:26:00 EST, both eyes, As indicated, PRN: dry eyes Start Date: 07/06/20 Status: Ordered pantoprazole Start: 12/29/18 16:19:00 EDT, 40 mg =, PO, bid Start Date: 12/29/18 Status: Ordered potassium chloride 20 mEq oral tablet, extended release Start: 07/03/16 7:58:00, 1 tab, PO, Daily Start Date: 07/03/16 Status: Ordered predniSONE 5 mg oral tablet Start: 12/29/18 16:10:00 EDT, 1 tab, PO, Daily Start Date: 12/29/18 Status: Ordered spironolactone 25 mg oral tablet Start: 07/03/16 7:58:00, 1 tab, PO, Daily Start Date: 07/03/16 Status: Ordered Vitamin D3 Start: 12/29/18 13:10:00 EDT, 1,000 Int_Unit =, PO, Daily Start Date: 12/29/18 Status: Ordered ZyrTEC 10 mg oral tablet Start: 12/29/18 12:43:00 EDT, 1 tab, PO, Daily, PRN: as needed for allergy symptoms Start Date: 12/29/18 Status: Ordered Mental Status 01/06/23 Barriers to Learning one year None evide nt Mandatory Health Literacy Documentation Yes Health Literacy Communication Barriers N ever Primary Language Syriac Problem List Condition Confirmation Course Effective Dates Status Health Status Informant Lumbar facet arthropathy Confirmed Active Back pain Confirmed Active Cervical radiculopathy Confirmed Active Cervical spondylosis Confirmed Active CKD (chronic kidney disease) Confirmed Active Muscle cramps 1 Confirmed Active GERD Confirmed Active HTN (hypertension) Confirmed Active Hypothyroidism Confirmed Active Lumbar radiculopathy Confirmed Active Neuropathy 2 Confirmed Active Psoriasis Confirmed Active Sacroiliitis Confirmed Active Spinal stenosis of lumbar region Confirmed Active Spondylolisthesis of lumbar region Confirmed Active Weight disorder Confirmed Active 1hands and forearms 2Left leg Diagnosis Diagnosis Type Effective Dates Health Status Clinical Service Informant Meningioma Discharge Diagnosis 01/06/23 Body mass index [BMI] 32.0-32.9, adult Discharge Diagnosis 01/06/23 Non-Specified Procedures Procedure Date Related Diagnosis Body Site Status Colonoscopy 1 04/10/20 Completed Left knee 11/2010 Completed Procedure 2 10/2010 Completed Right shoulder 2005 Completed Thyroid 2005 Completed Hysterectomy 1985 Completed Surgery, right foot fused 3 Completed 1Impression: one 2 mm polyp in the ascending colon, removed with a cold snare. Resected and retrieved. Medium sized lipoma in the ascending colon Non bleeding internal hemorrhoids. 2Metal out of foot 3right foot fused 02/04 Vital Signs Most recent to oldest [Reference Range]: 1 Height 180.34 cm (01/06/23 1:08 PM) Patient Weight 105.8 kg (01/06/23 1:08 PM) Body Mass Index 32.53 kg/m2 (01/06/23 1:08 PM) Heart Rate 96 bpm (01/06/23 1:08 PM) Blood Pressure 150/87mmHg (01/06/23 1:08 PM) BP Location # 1 Right Arm (01/06/23 1:08 PM) Social History Social History Type Response Smoking Status Former Smoker, quit > 1 yr Sex Female Patient Care team information Care Team Personnel Name: DO Mejia Sharon E Position: Physician - Rheumatology Member Role: Lifetime - never expires Address: Address: [address] [place] [address] [place] Name: Gretta Jacobs Kayla Position: Pharmacist Member Role: Pharmacy - Lifetime Name: MD Melendez Frank Position: Referring DIRECT Member Role: Primary Care Provider Address: Address: [address] [place] [address] Name: Gretta Harley Jennifer Position: Pharmacist Ship Boat Or Barge Mate Member Role: Pharmacy - Lifetime Care Team Related Persons Name: RAFAELA BONDS Name: DIA BONDS I Address: home [address], [id number]
--- OUTSIDE RECORDS SUMMARY | 2023-01-21 06:59 | External Medical Summary | Continuity of Care Document ---
Author Name Unknown Organization [place] [address] [address] [facility] [place] [address] [place] [address] Care Team Providers Care Main Line Assembler Name Role Phone John Melendez Primary Care Physician [phone] Encounter [facility] [id number] Date(s): 01/01/21 - 01/01/21 [place] [address] [address] [facility] Neuro[facility] [address] [facility] [address], [address] [place] [id number] [phone] Encounter Diagnosis Body mass index [BMI] 32.0-32.9, adult(Discharge Diagnosis) - 01/01/21 Cervical spine tumor(Discharge Diagnosis) - 01/01/21 Discharge Disposition: Home or Self Care Attending [...] days dissolve in water or juice, Pharmacy: [facility] Start Date: 07/10/20 Stop Date: 08/09/20 Status: Ordered clobetasol 0.05% topical cream Start: 12/29/18 13:08:00 EDT, 1 appl, topical, Daily Start Date: 12/29/18 Status: Ordered Dilaudid 2 mg oral tablet Start: 06/22/20 11:09:00 EST, 1 tab, PO, q4h, Disp# 24 tab, Refills: 0, PRN: as needed for pain, Pharmacy: [facility] Start Date: 06/22/20 Status: Ordered DULoxetine Start: [...] Refills: 2, apply to skinfold areas, Pharmacy: [facility] Start Date: 03/14/15 Status: Ordered ocular [...] Start Date: 12/29/18 Status: Ordered Mental Status 01/01/21 Barriers to Learning one year None evide nt Mandatory Health Literacy Documentation Yes Health Literacy Communication Barriers N ever Problem List Condition Effective Dates Status Health Status Inform ant Lumbar facet arthropathy(Confirmed) Active Back pain(Confirmed) Active Cervical radiculopathy(Confirmed) Active Cervical spondylosis(Confirmed) Active CKD (chronic kidney disease)(Confirmed) Active Muscle cramps(Confirmed) 1 Active GERD(Confirmed) Active HTN (hypertension)(Confirmed) Active Hypothyroidism(Confirmed) Active Lumbar radiculopathy(Confirmed) Active Neuropathy(Confirmed) 2 Active Psoriasis(Confirmed) Active Sacroiliitis(Confirmed) Active Spinal stenosis of lumbar region(Confirmed) Active Spondylolisthesis of lumbar region(Confirmed) Active Weight disorder(Confirmed) Active 1hands and forearms 2Left leg Diagnosis Diagnosis Type Effective Dates Health Status Cl inical Service Informant Body mass index [BMI] 32.0-32.9, adult Discharge Diagnosis 01/01/21 Non-Specified Cervical spine tumor Discharge Diagnosis 01/01/21 Procedures Procedure Date Related Diagnosis Body Site [...] recent to oldest [Reference Range]: 1 Height 182.88 cm (01/01/21 2:07 PM) Patient Weight 109.6 kg (01/01/21 2:07 PM) Body Mass Index 32.77 kg/m2 (01/01/21 2:07 PM) Heart Rate 91 bpm (01/01/21 2:07 PM) Blood Pressure 127/88mmHg (01/01/21 2:07 PM) BP Location # 1 Right Arm (01/01/21 2:07 PM) Social History Social History Type Response Smoking Status Never smoked cigaret nannette Sex Female
--- OUTSIDE RECORDS SUMMARY | 2023-01-21 06:59 | External Medical Summary | Summary of Care ---
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); Other psoriasis Allergies Active Allergy Reactions Severity Noted Date Comments Capsaicin 09/25/2021 Other reaction(s): Creatine elevation Nelson-2 Inhibitors Rash 03/30/2006 Cephalexin Rash 01/29/2021 Codeine High 12/26/2010 Throat swells Diclofenac 01/29/2021 Other reaction(s): Creatine elevation, raised enzymes Diclofenac Sodium 09/25/2021 Other reaction(s): Creatine elevation Iodinated Diagnostic Agents 01/30/20 Other reaction(s): rash Isopropyl Alcohol 01/29/2021 Other reaction(s): Creatine elevation Ivp Dye Hives Medium 12/26/2002 Morphine And Related High 03/16/2003 Swells throat Nickel 01/29/2021 Other reaction(s): skin irritation Propylene Glycol 09/25/2021 Other reaction(s): Creatine elevation Sulfa Antibiotics Rash 12/26/2002 Tetracycline Rash 12/26/2002 Tramadol Hcl 06/20/2009 Severe constipation Nsaids 03/19/2009 Elevated serum creatinine. documented as of this encounter (statuses as of 09/25/2021) Medications Medication Sig Dispensed Refills Start Date End Date Status VITAMIN D 1000 UNIT PO CAPS 1 tab by mouth daily 0 11/15/2007 Active CLOBETASOL PROPIONATE 0.05 % EX CREAIndications:Other psoriasis Apply to affected area twice daily as needed for flares 60GM 4 03/02/2009 Active FISH OIL 1000 MG PO CAPS one capsule twice daily 0 Active spironolactone (ALDACTONE) 25 MG Tablet 25 mg 2 times a day. daily 0 Active Potassium Chloride Katherine ER 20 MEQ TBCR 1 twice daily 0 12/04/2014 Ac tive nitroglycerin 0.4 MG/SPRAY spray As needed 0 11/22/2014 Active PredniSONE (DELTASONE) 5 MG TabletIndications:Pso riatic arthropathy (HCC) Take 1 Tab by mouth daily. 100 Tab 3 01/05/2015 Active Azelastine HCl 0.1 % nasal spray Administer 2 Sprays into nostril daily. 0 07/02/2015 Active Magnesium 400 MG Capsule Take 800 mg by mouth daily. 0 Active Cetirizine HCl (ZYRTEC ALLERGY) 10 MG Capsule Take 10 mg by mouth daily. 0 Active DULoxetine (CYMBALTA) 60 MG CPEP 1 daily 0 08/25/2018 Active nitroglycerin (NITRO-DUR) 0.4 MG/HR patch Apply 12-14 hr then remove 0 09/13/2018 Active Ca & Phos-Vit D-Mag (POSTURE-D CALCIUM/MAGNESIUM) [phone] TABS Take by mouth. 1 daily 0 Active levalbuterol (XOPENEX) 0.63 MG/3ML nebulizer solution Inhale 1 Ampule via nebulizer every 4 hours as needed for Wheezing. 0 Active benzonatate (TESSALON PERLES) 100 MG Capsule Take 100 mg by mouth 2 times a day as needed for Cough. 0 Active triamcinolone acetonide (ARISTOCORT) 0.025 % cream Apply topically to affected area 2 times a day. Apply to hands 0 Active tacrolimus (PROTOPIC) 0.03 % OINT Apply topically to affected area 2 times a day. Apply to both hands 0 Active Calcipotriene 0.005 % cream Apply topically to affected area 2 times a day. Apply to affected areas 0 Active NIFEdipine ER Osmotic Release 30 MG TB24 1 daily 0 09/28/2018 Active ACCU-CHEK GUIDE STRP 0 05/13/2019 Acti ve RA ACETAMINOPHEN EX ST 500 MG Tablet As needed 0 05/30/2019 Active levothyroxine (LEVOXYL) 100 MCG Tablet Take 1 Tab by mouth daily. 0 10/18/2019 Active HYDROmorphone HCl 2 MG Oral Tablet (Dilaudid) 2 mg. 0 06/22/2020 Active Eliquis 5 MG Oral Tablet 0 12/11/2020 Active Betamethasone Sod Phos & Acet (BETAMETHASONE 6MG/ML 1ML - LIDOCAINE 0.5% 1ML) 1 syringe Inject 2 mL as directed once. 0 Active Metoprolol Succinate ER 25 MG Oral Tablet Extended Release 24 Hour (toPROL XL) Take 1/2 tablet 0 12/11/2020 Active Diclofenac Sodium 1.5 % External Solution 0 12/19/2020 Activ e NIFEdipine ER Osmotic Release 90 MG Oral Tablet Extended Release 24 Hour 0 01/21/2021 Active Pantoprazole Sodium 40 MG Oral Tablet Delayed Release (Protonix) take 1 tablet by mouth twice a day 1/2 HOUR PRIOR TO BREAKFAST AND DINNER 0 12/04/2020 Active Symbicort 80-4.5 MCG/ACT Inhalation Aerosol 0 08/19/2021 Active Albuterol Sulfate HFA 108 (90 Base) MCG/ACT Inhalation Aerosol Solution 0 09/05/2021 Active Amoxicillin 500 MG Oral Tablet take 4 tablets by mouth 1 hour prior to appointment 0 06/20/2021 Active Betamethasone Valerate 0.1 % External Cream (Valisone) Apply topically to affected area every 12 hours . 0 Active Trulicity 0.75 MG/0.5ML Subcutaneous Solution Pen-injector 0 09/20/2021 Act ty Calcitriol 0.25 MCG Oral Capsule (Rocaltrol) 0 09/16/2021 Active Magnesium Oxide 400 MG Oral Capsule Take 1 capsule by oral route 2 times every day 0 Active documented as of this encounter (statuses as of 09/25/2021) Active Problems Problem Noted Date CKD stage 4 secondary to hypertension Encounter for examination fo r normal comparison and control in clinical research program 09/03/2017 Overview: DO NOT DELETE - [facility] DETECT Study: Project # [id number], Food Preparation Worker: Aubrey Sierra, MS, MPH. SUMMARY: Goal: Establish test characteristics (sensitivity, specificity, PPV, NPV) of a circulating tumor DNA (ctDNA)-based test for cancer. - Hypothesis: Circulating tumor DNA (ctDNA) and elevated protein biomarkers (together, the marker panel) can be detected in asymptomatic individuals with early cancer. - Specific Aim 1: Determine the prevalence of a positive marker panel test in a prospective clinical cohort of 10,000 asymptomatic women ages 65 to 75 years. - Specific Aim 2: Determine the sensitivity, specificity, positive predictive value (PPV) and negative predictive value (NPV) of a marker panel test to identify histologically proven cancers that develop within 5-years of the marker panel evaluation. - CONTACTS: During normal business hours, contact study staff at ; after hours Food Preparation Worker via the [facility] bindery operator . - Please contact study team before resolving/deleting from patients problem list. Study phone number: [phone]. Diagnosis changed due to Research Module. Go to Snapshot for study details. Hypothyroidism 02/24/2007 Psoriatic arthropathy 04/06/2003 Other psoriasis 12/26/2002 HTN, goal below 140/90 12/26/2002 GERD (gastroesophageal reflux disease) 0 12/26/2002 GENERAL OSTEOARTHROSIS 12/26/2002 documented as of this encounter (statuses as of 09/25/2021) Resolved Problems Problem Noted Date Resolved Date Encounter for examination fo r normal comparison and control in clinical research program 09/03/2017 12/26/2019 Overview: DO NOT DELETE [facility] DETECT Study: Project # [id number], Food Preparation Worker: Antoni Ford, PhD. SUMMARY: Goal: Establish test characteristics (sensitivity, specificity, PPV, NPV) of a circulating tumor DNA (ctDNA)-based test for cancer. Hypothesis: Circulating tumor DNA (ctDNA) and elevated protein biomarkers (together, the marker panel) can be detected in asymptomatic individuals with early cancer. Specific Aim 1: Determine the prevalence of a positive marker panel test in a prospective clinical cohort of 10,000 asymptomatic women ages 65 to 75 years. Specific Aim 2: Determine the sensitivity, specificity, positive predictive value (PPV) and negative predictive value (NPV) of a marker panel test to identify histologically proven cancers that develop within 5-years of the marker panel evaluation. CONTACTS: During normal business hours, contact study staff at ; after hours Food Preparation Worker via the [facility] bindery operator . Please contact study team before resolving/deleting from patients problem list. Study phone number: [phone]. Diagnosis changed due to Research Module. Go to Snapshot for study details. KIDNEY DZ,CHRONIC (GFR 30-59) STAGE III 12/14/19 10 09/22/2018 Overview: Per CKD Protocol, #1 documented as of this encounter (statuses as of 09/25/2021) Immunizations Name Administration Dates Next Due COVID-19 mRNA, LNP-s, No Pre serve, 2-Dose Series (Moderna) 02/03/2021,08/31/2020,08/03/2020 DT - Diptheria/Tetanus (PEDS) 12/12/2009 H1N1 2009 Influenza, IM 06/08/2009 PPD 09/07/2008 Pneumococcal Polysaccharide PPV23 (Pneumovax) 06/02/2007,2002 Seasonal Influenza, Split, I IV3, With Preserve, Inj 03/05/2012,06/03/2009,04/03/2009,06/01,03/13/2007,03/30/2006 Seasonal Influenza, Trivalen t, Adjuvanted, 65+ yrs 02/22/2019 documented as of this encounter Social History Tobacco Use Types Packs/Day Years Used Date Former Smoker Quit: 07/15 Smokeless Tobacco: Never Used Alcohol Use Standard Drinks/Week Comments Yes 0 (1 standard drink = 0.6 oz pur e alcohol) rare Sex Assigned at Date Recorded Not on file Job Start Date Occupation Industry Not on file Not on file Not on file documented as of this encounter Last Filed Vital Signs Vital Sign Reading Time Taken Comments Blood Pressure 146/82 09/25/2021 2:57 PM EDT Pulse - - Temperature 36.6 C (97.8 F) 09/25/2021 2:57 PM ED T Respiratory Rate - - Oxygen Saturation - - Inhaled Oxygen Concentration - - Weight 102.5 kg (226 lb) 09/25/2021 2:57 PM EDT Height - - Body Mass Index 31.52 09/22/2018 8:17 AM EDT documented in this encounter Progress Notes * Jez Sharpe MD - 09/25/2021 3:15 PM EDT Subjective: Patient seen today for further follow up evaluation of osteoarthritis, ckd stage 4, psoriasis. Since the last visit she is noting more pain in her hands, right shoulder, knees (even in right knee replacement). She has tried many things including CBD that have not helped. She also is dealing with increasing low back pain and numbness down both legs. She is seeing a chiropractor as well and hoping that helps. Using a TeNS on her back as well. Cannot use NSAIDs, tylenol does not help. She is having an EGD this Thursday because of increasing heart burn and acid reflux. She does remain on prednisone5 mg daily. She also has a lot of that she does not like taking all the time. Does not like being dependent on it. She does have ongoing psoriasis. Notices worsening tinnitus of right ear. Also has aswelling around the right parotid gland/neck. Having it CT on Thursday for further evaluation. She has had 3 COVID vaccines. Plans on getting the 4th soon. Musculoskeletal ROS: . Abnormal: joint pain and back pain . Pain scale (0-10): 5 Other ROS: . Constitutional: normal . Head normal . Eyes: normal . Ears, nose, throat, mouth: See above . Cardiovascular: normal . Respiratory: normal . Gastrointestinal: normal . Genitourinary: normal . Skin: rash . Neurologic: numbness All other ROS reviewed and negative Social History: Social History Tobacco Use Smoking status: Former Smoker Quit date: 07/15/1972 Years since quittin.2 Smokeless tobacco: Never Used Substance Use Topics Alcohol use: Yes Comment: rare Vaping/E-Cigarette Use Vaping/E-Cigarette Substances Vaping/E-Cigarette Devices Current Outpatient Medications Medication Sig Dispense Refill VITAMIN D 1000 UNIT PO CAPS 1 tab by mouth daily 0 CLOBETASOL PROPIONATE 0.05 % EX CREA Apply to affected area twice daily as needed for flares 60GM 4 FISH OIL 1000 MG PO CAPS one capsule twice daily spironolactone (ALDACTONE) 25 MG Tablet 25 mg 2 times a day. daily Potassium Chloride Katherine ER 20 MEQ TBCR 1 twice daily nitroglycerin 0.4 MG/SPRAY spray As needed PredniSONE (DELTASONE) 5 MG Tablet Take 1 Tab by mouth daily. 100 Tab 3 Azelastine HCl 0.1 % nasal spray Administer 2 Sprays into nostril daily. Magnesium 400 MG Capsule Take 800 mg by mouth daily. Cetirizine HCl (ZYRTEC ALLERGY) 10 MG Capsule Take 10 mg by mouth daily. DULoxetine (CYMBALTA) 60 MG CPEP 1 daily nitroglycerin (NITRO-DUR) 0.4 MG/HR patch Apply 12-14 hr then remove Ca & Phos-Vit D-Mag (POSTURE-D CALCIUM/MAGNESIUM) [phone] TABS Take by mouth. 1 daily levalbuterol (XOPENEX) 0.63 MG/3ML nebulizer solution Inhale 1 Ampule via nebulizer every 4 hours as needed for Wheezing. benzonatate (TESSALON PERLES) 100 MG Capsule Take 100 mg by mouth 2 times a day as needed for Cough. triamcinolone acetonide (ARISTOCORT) 0.025 % cream Apply topically to affected area 2 times a day. Apply to hands tacrolimus (PROTOPIC) 0.03 % OINT Apply topically to affected area 2 times a day. Apply to bothhands Calcipotriene 0.005 % cream Apply topically to affected area 2 times a day. Apply to affected areas NIFEdipine ER Osmotic Release 30 MG TB24 1 daily ACCU-CHEK GUIDE STRP RA ACETAMINOPHEN EX ST 500 MG Tablet As needed levothyroxine (LEVOXYL) 100 MCG Tablet Take 1 Tab by mouth daily. HYDROmorphone HCl 2 MG Oral Tablet (Dilaudid) 2 mg. Eliquis 5 MG Oral Tablet Betamethasone Sod Phos & Acet (BETAMETHASONE 6MG/ML 1ML - LIDOCAINE 0.5% 1ML) 1 syringe Inject 2 mL as directed once. Metoprolol Succinate ER 25 MG Oral Tablet Extended Release 24 Hour (toPROL XL) Take 1/2 tablet Diclofenac Sodium 1.5 % External Solution NIFEdipine ER Osmotic Release 90 MG Oral Tablet Extended Release 24 Hour Pantoprazole Sodium 40 MG Oral Tablet Delayed Release (Protonix) take 1 tablet by mouth twice aday 1/2 HOUR PRIOR TO BREAKFAST AND DINNER Symbicort 80-4.5 MCG/ACT Inhalation Aerosol Albuterol Sulfate HFA 108 (90 Base) MCG/ACT Inhalation Aerosol Solution Betamethasone Valerate 0.1 % External Cream (Valisone) Apply topically to affected area every 12 hours . Trulicity 0.75 MG/0.5ML Subcutaneous Solution Pen-injector Calcitriol 0.25 MCG Oral Capsule (Rocaltrol) Magnesium Oxide 400 MG Oral Capsule Take 1 capsule by oral route 2 times every day Amoxicillin 500 MG Oral Tablet take 4 tablets by mouth 1 hour prior to appointment (Patient nottaking: Reported on 09/25/2021) No current facility-administered medications for this visit. Physical Exam: BP 146/82 | Temp 36.6 C (97.8 F) (Infrared ) | Wt 102.5 kg (226 lb) | BMI 31.52 kg/m | BSA 2.27 m General: alert, healthy, no distress and well nourished Neck: supple, thyroid normal size, non-tender, without nodularity, question adenopathy/mild right parotid gland fullness-nontender Heart: regular rate & rhythm and no gallops Lungs: clear to auscultation , no rales, wheezes or rhonchi Abdomen: abdomen soft, non-tender and normal bowel sounds Skin: skin color, texture, turgor are normal, psoriasis noted in right ear Musculoskeletal Exam: No synovitis to the hands Discomfort with range of motion of right knee replacement No knee effusions Assessment: L40.50 Psoriatic arthropathy (HCC) (primary encounter diagnosis) I12.9,N18.4 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 Plan: 1. Continue low-dose prednisone 2. Continue narcotic as needed for pain 3. Discussed getting the 4th COVID vaccine 4. Continue conservative measures for pain 5. Return to clinic in 6 months Jez Sharpe MD Department of Rheumatology documented in this encounter Nursing Notes * Shalini Gillis LPN - 09/25/2021 2:56 PM EDT Chief Complaint Patient presents with Rheum Follow Up follow up documented in this encounter Plan of Treatment Upcoming Encounters Date Type Specialty Care Team Description 03/31/2022 Office Visit Rheumatology Jez Sharpe MD [address] [place] [address] Health Maintenance Due Date Last Done Comments Depression Screening, Annual for Pts 12 and Over 1957 CKD NEPHROLOGY EVAL USE SMARTSET 24403 1964 CKD PHOS USE SMARTSET 44361 1964 CKD PTH USE SMARTSET 27065 1964 CKD URINE ALBUMIN/CREATININE RATIO YEARLY 1964 Zoster Vaccines (1 of 2) 1996 CKD CALCIUM USE SMARTSET 18626 01/16/2006 10/16/2005 Pneumococcal Vaccine: 65+ Years (3 of 4 - PCV13) 06/02/2008 06/02/2007, 2002 TSH FOR THYROID MEDICATION MONITORING YEARLY 10/18/2011 10/17/2010, 01/02/2010, 09/06/2008, Additional history exists *URINE ALBUMIN/CREATININE RATIO ONCE FOR HTN 09/08/2017 DTaP,Tdap,and Td Vaccines (2 - Tdap) 12/13/2019 12/12/2009 CKD GFR USE SMARTSET 97500 06/07/202012/05, 07/30/2015, 01/05/2015, Additional history exists CKD HGB USE SMARTSET 34438 06/07/202012/05, 07/30/2015, 01/05/2015, Additional history exists BASIC METABOLIC PANEL (BMP) FOR HTN YEARLY 12/05/2020 12/06/2019, 07/30/2015, 01/05/2015, Additional history exists COVID-19 Vaccine (4 - Booster for Moderna series) 07/06/2021 02/03/2021, 08/31/2020, 08/03/2020 Influenza Vaccine (FLU shot) (Season Ended) 2022 02/22/2019, 03/05/2012, 06/08/2009, Additional history exists DIABETES SCREEN EVERY 3 YRS-AGE 45 AND ABOVE 12/05/2022 12/06/2019, 10/16/2005 GARDASIL-HPV IMMUNIZATION SERIES Aged Out No longer eligible based on patient's age to complete this topic MENINGOCOCCAL (MENACTRA/MENVEO) Aged Out No longer eligible based on patient's age to complete this topic documented as of this encounter Implants Implanted Type Area Cuffer Device Identifier Shelf Expiration Date Model / Serial / Lot Lens 17.0 Mx60 - [id number] - [id number] Implanted:Qty: 1 on 09/01/2017 by Vic Mckee MD at [facility] Right: Eye [employer] : SURGICAL 01/23/2020 MX60-17.0 / [id number] / [id number] Mx60 14.5 Envista Implanted:Qty: 1 on 09/29/2017 by Vic Mckee MD at 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) Other psoriasis documented in this encounter Advance Directives Documents on File Type Date Recorded Patient Sales Development Representative Expl anation Advanced Directive service a [place] default Advanced Directive Advanced Directive Advanced Directive Advanced Directive Advanced Directive Advanced Directive Advanced Directive Advanced Directive Advanced Directive Advanced Directive 09/29/2017 1:36 PM Advanced Directive 09/01/2017 9:50 AM Latest Code Status on File Code Status Date Activated Date Inactivated Comments Full Code 09/29/2017 1:53 PM 09/29/2017 8:48 PM This or alejandro reflects the patients wishes and were consensually agreed upon. Full Code 09/01/2017 10:19 AM 09/01/2017 5:23 PM This order reflects the patients wishes and were consensually agreed upon. Care Teams Stores Despatch Hand Relationship Specialty Start Date End Date John Melendez MD [address] [place] [address] PCP - General Internal Medicine 08/13/17 documented as of this encounter"
--- OUTSIDE RECORDS SUMMARY | 2023-01-21 06:59 | External Medical Summary | Summary of Care ---
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 documented as of this encounter (statuses as of 07/25/2020) Medications Medication Sig Dispensed Refills Start Date End Date Status VITAMIN D 1000 UNIT PO CAPS 1 tab by mouth daily 0 11/15/2007 Active CLOBETASOL PROPIONATE 0.05 % EX CREAIndications:Oth er psoriasis Apply to affected area twice daily [...] 0 11/22/2014 Active PredniSONE (DELTASONE) 5 MG TabletIndications:P soriatic arthropathy (HCC) Take 1 Tab by mouth daily. 100 Tab 3 01/05/2015 Active Azelastine HCl 0.1 % nasal spray Administer 2 Sprays into nostril daily. 0 07/02/2015 Active Magnesium 400 MG Capsule Take 800 mg by mouth daily. 0 Active Cetirizine HCl (ZYRTEC ALLERGY) 10 MG Capsule Take 10 mg by mouth daily. 0 Active pantoprazole (PROTONIX) 40 MG Pack Take 40 mg by mouth daily. 0 Active DULoxetine (CYMBALTA) 60 MG CPEP 1 daily 0 08/25/2018 Active nitroglycerin (NITRO-DUR) 0.4 MG/HR patch Apply 12-14 hr then remove 0 09/13/2018 Active dicyclomine (BENTYL) 20 MG Tablet 1 three times daily as needed 0 08/26/2018 Active Ca & Phos-Vit D-Mag (POSTURE-D CALCIUM/MAGNESIUM) [phone] TABS Take by mouth. 1 daily 0 [...] 09/28/2018 Active ACCU-CHEK GUIDE STRP 0 05/13/2019 Active RA SENNA 8.6 MG Tablet As needed 0 05/30/2019 Active RA ACETAMINOPHEN EX ST 500 MG Tablet As needed 0 05/30/2019 Active levothyroxine (LEVOXYL) 100 MCG Tablet Take 1 Tab by mouth daily. 0 10/18/2019 Active aspirin enteric coated 81 MG TBEC Take 81 mg by mouth 2 times a day. 0 1 Discontinued predniSONE (DELTASONE) 5 MG Tablet 15 mg daily for 4 days, 10 mg daily for 4 days, then resume home dosing of 5 mg daily 20 Tab 2 11/18/2019 1 Discontinued documented as of this encounter (statuses as of 07/25/2020) Active Problems Problem Noted Date CKD stage 4 secondary to hypertension DETECT Research Study*[id number] Overview: DO NOT DELETE [facility] DETECT Study: Project # [id number], Director Graphics: Aubrey Sierra, MS, MPH. SUMMARY: Goal: Establish [...] contact study staff at ; after hours Director Graphics via the [facility] splitter operator . - Please contact study team before resolving/deleting from patients problem list. Study phone number: [phone]. Hypothyroidism 02/24/2007 Psoriatic arthropathy 04/06/2003 Other psoriasis 12/26/2002 HTN, goal below 140/90 12/26/2002 GERD (gastroesophageal reflux disease) 0 12/26/2002 GENERAL OSTEOARTHROSIS 12/26/2002 documented as of this encounter (statuses as of 07/25/2020) Resolved Problems Problem Noted Date Resolved Date DETECT Research Study*[id number] 09/03/2017 12/26/2019 Overview: [facility] DETECT Study: Project # [id number], Director Graphics: Antoni Ford, PhD. SUMMARY: Goal: Establish test [...] contact study staff at ; after hours Director Graphics via the [facility] splitter operator . Please contact study team before resolving/deleting from patients problem list. Study phone number: [phone]. KIDNEY DZ,CHRONIC (GFR 30-59) STAGE III 12/14/19 10 09/22/2018 Overview: Per CKD Protocol, #1 documented as of this encounter (statuses as of 07/25/2020) Immunizations Name Administration Dates Next Due DT - Diptheria/Tetanus (PEDS) 12/12/2009 H1N1 2009 Influenza, IM 06/08/2009 PPD 09/07/2008 Pneumococcal Polysaccharide PPV23 (Pneumovax) 06/02/2007,2002 Seasonal Influenza, Trivalen t, Adjuvanted, 65+ yrs 02/22/2019 Seasonal Influenza, Trivalen t, with Preserve, 3yr & Above, Split 03/05/2012,06/03/2009,04/03/2009,06/01,03/13/2007,03/30/2006 documented as of this encounter Social History Tobacco Use Types Packs/Day Years Used Date Former Smoker Quit: 07/15 Smokeless Tobacco: Never Used Alcohol Use Drinks/Week oz/Week Comments Yes rare Sex Assigned at Date Recorded Not on file Job Start Date Occupation Industry Not on file Not on file Not on file documented as of this encounter Last Filed Vital Signs Vital Sign Reading Time Taken Comments Blood Pressure 130/68 07/25/2020 9:14 AM EST Pulse - - Temperature 36.2 C (97.2 F) 07/25/2020 9:14 AM ES T Respiratory Rate - - Oxygen Saturation - - Inhaled Oxygen Concentration - - Weight 103 kg (227 lb) 07/25/2020 9:14 AM EST Height - - Body Mass Index 31.66 09/22/2018 8:17 AM EDT documented in this encounter Progress Notes * Jez Sharpe MD - 07/25/2020 9:22 AM EST Subjective: Patient seen today for further follow up evaluation of osteoarthritis, h/o psoriatic arthritis, CKDstage 4. Since the last visit she reports that she was at [facility] for 30 days for abdominal mass and then developed a vulvulous as well. she had to have 2 different surgeries. She has been home for 2 weeks now. She reports that she is noting arthritis pains around her thumb bases both hands. She does not had use any bracing for her thumbs. She has been told not to use Voltaren gel for her hand arthritis. Notes some right foot pains but has had surgery in the past and since her back surgery 2 yrs ago she has more feeling to the feet that is contributing. She is waiting for the covid vaccine. . Musculoskeletal ROS: . Abnormal: joint pain . Pain scale (0-10): 0 rated today Other ROS: . Constitutional: normal . Head normal . Eyes: normal . Ears, nose, throat, mouth: normal . Cardiovascular: normal . Respiratory: normal . Gastrointestinal: See above . Genitourinary: normal All other ROS reviewed and negative Social History: Social History Tobacco Use Smoking status: Former Smoker Quit date: 07/15/1972 Years since quittin.0 Smokeless tobacco: Never Used Substance Use Topics Alcohol use: Yes Comment: rare Vaping/E-Cigarette Use Vaping/E-Cigarette Substances Vaping/E-Cigarette Devices Current Outpatient Medications Medication Sig Dispense Refill levothyroxine (LEVOXYL) 100 MCG Tablet Take 1 Tab by mouth daily. ACCU-CHEK GUIDE STRP RA ACETAMINOPHEN EX ST 500 MG Tablet As needed RA SENNA 8.6 MG Tablet As needed NIFEdipine ER Osmotic Release 30 MG TB24 1 daily benzonatate (TESSALON PERLES) 100 MG Capsule Take 100 mg by mouth 2 times a day as needed for Cough. Ca & Phos-Vit D-Mag (POSTURE-D CALCIUM/MAGNESIUM) [phone] TABS Take by mouth. 1 daily Calcipotriene 0.005 % cream Apply topically to affected area 2 times a day. Apply to affected areas dicyclomine (BENTYL) 20 MG Tablet 1 three times daily as needed DULoxetine (CYMBALTA) 60 MG CPEP 1 daily levalbuterol (XOPENEX) 0.63 MG/3ML nebulizer solution Inhale 1 Ampule via nebulizer every 4 hours as needed for Wheezing. nitroglycerin (NITRO-DUR) 0.4 MG/HR patch Apply 12-14 hr then remove tacrolimus (PROTOPIC) 0.03 % OINT Apply topically to affected area 2 times a day. Apply to bothhands triamcinolone acetonide (ARISTOCORT) 0.025 % cream Apply topically to affected area 2 times a day. Apply to hands pantoprazole (PROTONIX) 40 MG Pack Take 40 mg by mouth daily. Azelastine HCl 0.1 % nasal spray Administer 2 Sprays into nostril daily. Cetirizine HCl (ZYRTEC ALLERGY) 10 MG Capsule Take 10 mg by mouth daily. Magnesium 400 MG Capsule Take 800 mg by mouth daily. nitroglycerin 0.4 MG/SPRAY spray As needed Potassium Chloride Katherine ER 20 MEQ TBCR 1 twice daily PredniSONE (DELTASONE) 5 MG Tablet Take 1 Tab by mouth daily. 100 Tab 3 spironolactone (ALDACTONE) 25 MG Tablet 25 mg 2 times a day. daily FISH OIL 1000 MG PO CAPS one capsule twice daily CLOBETASOL PROPIONATE 0.05 % EX CREA Apply to affected area twice daily as needed for flares 60GM 4 VITAMIN D 1000 UNIT PO CAPS 1 tab by mouth daily 0 Physical Exam: BP 130/68 | Temp 36.2 C (97.2 F) (Tympanic) | Wt 103 kg (227 lb) | BMI 31.66 kg/m | BSA 2.27 m General: alert, no distress, well nourished and well developed Heart: regular rate & rhythm and no gallops Lungs: clear to auscultation , no rales, wheezes or rhonchi Abdomen: abdomen soft, non-tender, normal bowel sounds and wearing an abdominal binder Extremities: no edema, no clubbing, no cyanosis Musculoskeletal Exam: Squaring of both thumb bases with crepitus and mild discomfort on exam No synovitis of the hands Assessment: (M15.9) GENERAL OSTEOARTHROSIS (primary encounter diagnosis) (I12.9, N18.4) 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 No evidence for active inflammatory disease. Limited treatment options given age and medical issues. Discussed conservative measures for thumb arthritis including bracing and topical therapies. Plan: 1. Discussed topical therapies for thumb arthritis 2. Discussed braces for her thumbs-she will discussed with Orthopedics at upcoming appointment 3. Discussed COVID vaccines 4. Return to clinic in 6 months Jez Sharpe MD Department of Rheumatology documented in this encounter Nursing Notes * Dorothea Cole LPN - 07/25/2020 9:14 AM EST Chief Complaint Patient presents with Rheum Follow Up recheck documented in this encounter Plan of Treatment Upcoming Encounters Date Type Specialty Care Team Description 01/29/2021 Office Visit Rheumatology Jez Sharpe MD [address] [place] [address] [phone] Health Maintenance Due Date Last Done Comments CKD NEPHROLOGY EVAL USE SMARTSET 89271 1964 CKD PHOS USE SMARTSET 75518 1964 CKD PTH USE SMARTSET 89003 1964 CKD URINE PROTEIN/CREATININE RATION OR URINE MICROALBUMIN YEARLY USE SMARTSET 51346 1963 BREAST CANCER SCREENING DISCUSSION YEARLY AGES 40-75 1986 Zoster Vaccines (1 of 2) 1996 CKD CALCIUM USE SMARTSET 16607 01/16/2006 10/16/2005 Pneumococcal Vaccine: 65+ Years (1 of 1 - PPSV23) 06/02/2012 06/02/2007, 2002 *COLORECTAL CANCER SCREENING (COLONOSCOPY 10 YEARS; SIGMOIDOSCOPY 5 YEARS; COLOGUARD 3 YEARS; FOBT 1 YEAR),AGES 50-75 09/08/2017 *DEPRESSION SCREENING,ANNUAL FOR PTS 12 AND OVER 09/08/2017 *TSH FOR THYROID MEDICATION MONITORING YEARLY 09/08/2017 *URINE PROTEIN ONCE FOR HTN-DIPSTICK ACCEPTABLE 09/08/2017 DTaP,Tdap,and Td Vaccines (2 - Tdap) 12/13/2019 12/12/2009 Influenza Vaccine (FLU shot) (#1) 2019 02/22/2019, 03/05/2012, 06/08/2009, Additional history exists CKD GFR USE SMARTSET 27754 06/07/202012/05, 07/30/2015, 01/05/2015, Additional history exists CKD HGB USE SMARTSET 48156 06/07/202012/05, 07/30/2015, 01/05/2015, Additional history exists DIABETES SCREEN EVERY 3 YRS-AGE 45 AND ABOVE 12/05/2022 12/06/2019, 10/16/2005 MENINGOCOCCAL (MENACTRA/MENVEO) Aged Out No longer eligible based on patient's age to complete this topic documented as of this encounter Implants Implanted Type Area Marketing Database Coordinator Device Identifier Shelf Expiration Date Model / Serial / Lot Lens 17.0 Mx60 - [id number] - [id number] Implanted:Qty: 1 on 09/01/2017 by Vic Mckee MD at OR [facility] Right: Eye [employer]OM[employer] : SURGICAL 01/23/2020 MX60-17.0 / [id number] / [id number] Mx60 14.5 Envista Implanted:Qty: 1 on 09/29/2017 by Vic Mckee MD at OR [facility] Left: Eye 01/23/2020 MX 60 14.5 / [id number] / [id number] documented as of this encounter Visit Diagnoses Diagnosis GENERAL OSTEOARTHROSIS- Primary Generalized osteoarthrosis, unspecified site 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) Psoriatic arthropathy (HCC) Psoriatic arthropathy documented in this encounter Advance Directives Documents on File Type Date Recorded 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 Full Code 09/01/2017 10:19 AM 09/01/2017 5:23 PM This order reflects the patients wishes and were consensually agreed upon."
--- OUTSIDE RECORDS SUMMARY | 2023-01-21 06:59 | External Medical Summary | Summary of Care ---
Author Name Unknown Organization [place] [address] Care Team Providers Care Prosthodontist/Owner Name Role Phone John Melendez MD Primary Care Provider [phone] Reason for Visit * Reason Comments Rheum Follow Up PsA * Evaluate & Treat - Unlimited Visits (Within 10 days (routine)) - Pending Review Specialty Diagnoses / Procedures Referred By Contac t Referred To Contact Rheumatology Diagnoses Arthropathic psoriasis, unspecified (HCC) John Melendez MD [address] [address] Referral ID Status Reason Start Date Expiration Date Visits Requested Visits Authorized [id number] Pending Review Specialty Services Required 2 [phone] Encounter Details Date Type Department Care Team Description 05/28/2022 Office Visit Rheumatology [place] [address] [place] [address] Jez Sharpe MD [address] [place] [address] Senile osteoporosis*; Other psoriasis; CKD stage 4 secondary to hypertension ([facility]); Gastroesophageal reflux disease without esophagitis; Psoriatic arthropathy ([facility]); GENERAL OSTEOARTHROSIS; Current chronic use of systemic steroids Allergies Active Allergy Reactions Severity Noted Date Comments Capsaicin 09/25/2021 Other reaction(s): Creatine elevation Nelson-2 Inhibitors Rash 03/30/2006 Cephalexin Rash 01/29/2021 Codeine High 12/26/2010 Throat swells Diclofenac 01/29/2021 Other reaction(s): Creatine elevation, raised enzymes Diclofenac Sodium 09/25/2021 Other reaction(s): Creatine elevation Iodinated Contrast Media 01/29/2021 Other reaction(s): rash Isopropyl Alcohol 01/29/2021 Other reaction(s): Creatine elevation Ivp Dye Hives Medium 12/26/2002 Morphine And Related High 03/16/2003 Swells throat Nickel 01/29/2021 Other reaction(s): skin irritation Propylene Glycol 09/25/2021 Other reaction(s): Creatine elevation Sulfa Antibiotics Rash 12/26/2002 Tetracycline Rash 12/26/2002 Tramadol Hcl 06/20/2009 Severe constipation Nsaids 03/19/2009 Elevated serum creatinine. documented as of this encounter (statuses as of 05/28/2022) Medications Medication Sig Dispensed Refills Start Date [...] Active Ca & Phos-Vit D-Mag (POSTURE-D CALCIUM/MAGNESIUM) [phone] TABS Take by mouth. 1 daily 0 [...] ACCU-CHEK GUIDE STRP 0 05/13/2019 Active RA ACETAMINOPHEN EX ST 500 MG [...] Sodium 1.5 % External Solution 0 12/19/2020 Active NIFEdipine ER Osmotic Release 90 MG Oral Tablet Extended Release 24 Hour 0 01/21/2021 Active Symbicort 80-4.5 MCG/ACT Inhalation Aerosol 0 [...] 0.75 MG/0.5ML Subcutaneous Solution Pen-injector 0 09/20/2021 Active Calcitriol 0.25 MCG Oral Capsule (Rocaltrol) 0 09/16/2021 Active Magnesium Oxide 400 MG Oral Capsule Take 1 capsule by oral route 2 times every day 0 Active Omeprazole 40 MG Oral Capsule Delayed Release (PriLOSEC) Take 1 Capsule by mouth in the morning. 0 Active Pantoprazole Sodium 40 MG Oral Tablet Delayed Release (Protonix) take 1 tablet by mouth twice a day 1/2 HOUR PRIOR TO BREAKFAST AND DINNER 0 12/04/2020 3 Discontinue d(Medicatio n List Clean Up) documented as of this encounter (statuses as of 05/28/2022) Active Problems Problem Noted Date CKD stage 4 secondary to hypertension Hypothyroidism 02/24/2007 Psoriatic arthropathy 04/06/2003 Other psoriasis 12/26/2002 HTN, goal below 140/90 12/26/2002 GERD (gastroesophageal reflux disease) 0 12/26/2002 GENERAL OSTEOARTHROSIS 12/26/2002 documented as of this encounter (statuses as of 05/28/2022) Resolved Problems Problem Noted Date Resolved Date Encounter for examination fo r normal comparison and control in clinical research program 09/03/2017 12/26/2019 Overview: DO NOT DELETE [facility] DETECT Study: Project # [id number], Lead Scientist: Anotni Ford, PhD. SUMMARY: Goal: Establish test characteristics [...] contact study staff at ; after hours Lead Scientist via the [facility] hospital automatic dry starch operator . Please contact study team before resolving/deleting from patients problem list. Study phone number: [phone]. Diagnosis changed due to Research Module. Go to Snapshot for study details. Encounter for examination fo r normal comparison and control in clinical research program 09/03/2017 01/23/2022 Overview: DO NOT DELETE - [facility] Study: Project # [id number], Lead Scientist: Aubrey Sierra, MS, MPH. SUMMARY: Goal: Establish [...] contact study staff at ; after hours Lead Scientist via the [facility] hospital automatic dry starch operator . - Please contact study team before resolving/deleting from patients problem list. Study phone number: [phone]. Diagnosis changed due to Research Module. Go to Snapshot for study details. KIDNEY DZ,CHRONIC (GFR 30-59) STAGE III 12/14/19 10 09/22/2018 Overview: Per CKD Protocol, #1 documented as of this encounter (statuses as of 05/28/2022) Immunizations Name Administration Dates Next Due COVID-19 mRNA, LNP-s, No Pre serve, 2-Dose Series (Moderna) 02/03/2021,08/31/2020,08/03/2020 Covid-19, Mrna, Lnp-s, Pf, B ivalent Booster, 50 Mcg, IM, 12 yrs and above (Moderna) 04/16/2022 DT - Diptheria/Tetanus (PEDS) 12/12/2009 H1N1 2009 Influenza, IM 06/08/2009 PPD 09/07/2008 Pneumococcal Polysaccharide PPV23 (Pneumovax) 06/02/2007,2002 Seasonal Influenza, Quadriva lent Hd, 65+ Yrs 04/16/2022 Seasonal Influenza, Split, I IV3, With Preserve, Inj 03/05/2012,06/03/2009,04/03/2009,06/01,03/13/2007,03/30/2006 Seasonal Influenza, Trivalen t, Adjuvanted, 65+ yrs 02/22/2019 documented as of this encounter Social History Tobacco Use Types Packs/Day Years Used Date Smoking Tobacco: Former Cigarettes Q uit: 07/15/1972 Smokeless Tobacco: Never Tobacco Cessation:Counseling Given: Not Answered Alcohol Use Standard Drinks/Week Comments Yes 0 (1 standard drink = 0.6 oz pur e alcohol) rare Sex Assigned at Date Recorded Not on file Job Start Date Occupation Industry Not on file Not on file Not on file documented as of this encounter Last Filed Vital Signs Vital Sign Reading Time Taken Comments Blood Pressure 140/78 05/28/2022 11:04 AM EST Pulse - - Temperature 36.5 C (97.7 F) 05/28/2022 11:[address] Respiratory Rate - - Oxygen Saturation - - Inhaled Oxygen Concentration - - Weight - - Height - - Body Mass Index - - documented in this encounter Progress Notes * Jez Sharpe MD - 05/28/2022 11:13 AM EST Subjective: Patient seen today for further follow up evaluation of osteoarthritis, psoriatic arthritis. Since the last visit she saw her GI specialist in [facility] and thought her chest pain was from GERD. He notedit was likely costochondritis. She continues to deal with back pain and tail bone pain. No falls. Uses a cane. Has her flu vaccine and updated covid vaccine. Has not yet had covid. She repotrs that she did get x rays for hands by Dr Gonzales. injections did not help her [facility] joints. Sees a chiropractor as well. Is on cymbalta which helps some. No longer using narcotics. Was on diluadid but no longergetting it - not sure why - she did not use often. They mentioned trying medical marijuana but it really did not help. Musculoskeletal ROS: . Abnormal: joint pain and back pain . Pain scale (0-10): 5 Other ROS: . Constitutional: normal . Head normal . Eyes: normal . Ears, nose, throat, mouth: normal . Cardiovascular: normal . Respiratory: normal . Gastrointestinal: heartburn . Genitourinary: normal . Skin: normal All other ros reviewed and negative Social History: Social History Tobacco Use Smoking status: Former Types: Cigarettes Quit date: 07/15/1972 Years since quittin.9 Smokeless tobacco: Never Substance Use Topics Alcohol use: Yes Comment: [...] remove Ca & Phos-Vit D-Mag (POSTURE-D CALCIUM/MAGNESIUM) [phone] TABS Take by mouth. 1 daily levalbuterol [...] MG Oral Tablet Extended Release 24 Hour Symbicort 80-4.5 MCG/ACT Inhalation Aerosol Albuterol Sulfate HFA 108 (90 Base) MCG/ACT Inhalation Aerosol Solution Amoxicillin 500 MG Oral Tablet take 4 tablets by mouth 1 hour prior to appointment Betamethasone Valerate 0.1 % External Cream (Valisone) Apply topically to affected area every 12 hours . Trulicity 0.75 MG/0.5ML Subcutaneous Solution Pen-injector Calcitriol 0.25 MCG Oral Capsule (Rocaltrol) Magnesium Oxide 400 MG Oral Capsule Take 1 capsule by oral route 2 times every day Omeprazole 40 MG Oral Capsule Delayed Release (PriLOSEC) Take 1 Capsule by mouth in the morning. No current facility-administered medications for this visit. Physical Exam: BP 140/78 | Temp 36.5 C (97.7 F) General: alert, healthy, no distress and well nourished Heart: regular rate & rhythm and no gallops Lungs: clear to auscultation , no rales, wheezes or rhonchi Abdomen: abdomen soft, non-tender and normal bowel sounds Extremities: no clubbing, no cyanosis Skin: skin color, texture, turgor are normal Musculoskeletal Exam: Squaring both thumb bases noted No synovitis to the hands No knee effusions Costochondritis pain noted Assessment: L40.8 Other psoriasis I12.9,N18.4 CKD stage 4 secondary to hypertension ([facility]) K21.9 Gastroesophageal reflux disease without esophagitis L40.50 Psoriatic arthropathy ([facility]) M15.9 GENERAL OSTEOARTHROSIS She does not have any evidence for active psoriatic arthritis. Remains on low- dose prednisone will update DEXA. Her pains are more related to general osteoarthritis.discussed conservative measures for costochondritis Plan: 1. DEXA ordered 2. Continue low-dose prednisone 3. Discussed conservative measures for arthritis pain 4. Return to clinic in 6 months Jez Sharpe MD Department of Rheumatology documented in this encounter Nursing Notes * Nancy Alexandre LPN - 05/28/2022 11:04 AM EST Chief Complaint Patient presents with Rheum Follow Up PsA documented in this encounter Plan of Treatment Upcoming Encounters Date Type Specialty Care Team Description 06/02/2022 Imaging Radiology 12/16/2022 Office Visit Rheumatology Jez Sharpe MD [address] [place] [address] Scheduled Orders Name Type Priority Associated Diagnoses Orde r Schedule DEXA SCAN/BONE MINERAL AXIAL Medical Imaging Routine Senile osteoporosis Current chronic use of systemic steroids Ordered: 05/28/2022 Health Maintenance Due Date Last Done Comments Depression Screening, Annual for Pts 12 and Over 1958 Alb / Creat Ratio 1963 CKD NEPHROLOGY EVAL USE SMARTSET 38861 1964 CKD PHOS USE SMARTSET 22682 1964 CKD PTH USE SMARTSET 33407 1963 Hepatitis C Screening 1963 Zoster Vaccines (1 of 2) 1965 CKD CALCIUM USE SMARTSET 53481 01/16/2006 10/16/2005 Pneumococcal Vaccine: 65+ Years (3 - PCV) 06/02/2008 06/02/2007, 2002 TSH FOR THYROID MEDICATION MONITORING YEARLY 10/18/2011 10/17/2010, 01/02/2010, 09/06/2008, Additional history exists DTaP,Tdap,and Td Vaccines (2 - Tdap) 12/13/2019 12/12/2009 CKD HGB USE SMARTSET 93682 06/07/202012/05, 07/30/2015, 01/05/2015, Additional history exists GFR - Renal Function 06/07/2020 12/06/2019, 07/30/2015, 01/05/2015, Additional history exists COVID-19 Vaccine (5 - Booster for Moderna series) 06/11/2022 04/16/2022, 03/04/2022, 03/04/2022, Additional history exists Influenza Vaccine (FLU shot) Completed , 02/22/2019, 02/22/2019, Additional history exists GARDASIL-HPV IMMUNIZATION SERIES Aged Out No longer eligible based on patient's age to complete this topic Hepatitis B Aged Out No longer eligi ble based on patient's age to complete this topic MENINGOCOCCAL (MENACTRA/MENVEO) Aged Out No longer eligible based on patient's age to complete this topic documented as of this encounter Medical Devices Implanted Type Area Mainspring Fabrication Supervisor Device Identifier Shelf Expiration Date Model / Serial / Lot Lens 17.0 Mx60 - [id number] - [id number] Implanted:Qty: 1 on 09/01/2017 by Vic Mckee MD at OR [facility] Right: Eye [employer] LOMB : SURGICAL 01/23/2020 MX60-17.0 / [id number] / [id number] Mx60 14.5 Envista Implanted:Qty: 1 on 09/29/2017 by Vic Mckee MD at OR [facility] Left: Eye 01/23/2020 MX 60 14.5 / [id number] / [id number] documented as of this encounter Visit Diagnoses Diagnosis Senile osteoporosis- Primary Other psoriasis 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) Gastroesophageal reflux disease without esophagitis Esophageal reflux Psoriatic arthropathy (HCC) Psoriatic arthropathy GENERAL OSTEOARTHROSIS Generalized osteoarthrosis, unspecified site Current chronic use of systemic steroids documented in this encounter Advance Directives Latest Code Status on File Code Status Date Activated Date Inactivated Comments Full Code 09/29/2017 1:53 PM 09/29/2017 8:48 PM This or alejandro reflects the patients wishes and were consensually agreed upon. Code Status History Code Status Date Activated Date Inactivated Comments Full Code 09/01/2017 10:19 AM 09/01/2017 5:23 PM This order reflects the patients wishes and were consensually agreed upon. Care Teams Prosthodontist/Owner Relationship Specialty Start Date End Date John Melendez MD [address] [place] [address] PCP - General Internal Medicine 08/13/17 documented as of this encounter"
--- OUTSIDE RECORDS SUMMARY | 2023-01-21 06:59 | External Medical Summary | Continuity of Care Document ---
Author Name Unknown Organization [facility] [address] [place] [address] Care Team Providers Care Information Systems Operator Name Role Phone John Melendez Primary Care Physician [phone] Encounter PS FINNBR [id number] Date(s): 07/24/20 - 07/24/20 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 Discharge Disposition: Home or Self Care Attending Physician: SPEEDY Villareal Christine M Referring Physician: MD Melendez Frank Allergies, Adverse Reactions, Alerts Substance Reaction Severity [...] days dissolve in water or juice, Pharmacy: [facility] Start Date: 07/10/20 Stop Date: 08/09/20 Status: Ordered clobetasol 0.05% topical cream Start: 12/29/18 13:08:00 EDT, 1 appl, topical, Daily Start Date: 12/29/18 Status: Ordered Dilaudid 2 mg oral tablet Start: 06/22/20 11:09:00 EST, 1 tab, PO, q4h, Disp# 24 tab, Refills: 0, PRN: as needed for pain, Pharmacy: [facility] Start Date: 06/22/20 Status: Ordered DULoxetine [...] 2, apply to skinfold areas, Pharmacy: [facility] Start Date: 03/14/15 Status: Ordered ocular [...] Start Date: 12/29/18 Status: Ordered Mental Status 07/24/20 Barriers to Learning one year None evide nt Mandatory Health Literacy Documentation Yes Health Literacy Communication Barriers N ever Primary Language Azerbaijani Problem List Condition Effective Dates Status Health [...] Effective Dates Health Status Clinical Service Informant Cecal volvulus Discharge Diagnosis 07/24/20 S/P exploratory laparotomy Discharge Diagnosis 07/24/20 Procedures Procedure Date Related Diagnosis Body Site Status Colonoscopy 1 04/10/20 Completed Left knee 11/2010 Completed Procedure 2 10/2010 Completed Right shoulder 2006 Completed Thyroid 2005 Completed Hysterectomy 1986 Completed Surgery, right foot fused 3 Completed 1Impression: one 2 mm polyp in the ascending colon, removed with a cold snare. Resected and retrieved. Medium sized lipoma in the ascending colon Non bleeding internal hemorrhoids. 2Metal out of foot 3right foot fused 02/04 Vital Signs Most recent to oldest [Reference Range]: 1 Temperature [36.5-38 DegC] 36.2 DegC *LOW* (07/24/20 2:46 PM) Heart Rate 63 (07/24/20 2:46 PM) Respiratory Rate 18 br/min (07/24/20 2:46 PM) Blood Pressure 162/71mmHg (07/24/20 2:46 PM) Cuff Pulse Pressure 91 mmHg (07/24/20 2:46 PM) Social History Social History Type Response Smoking Status Never smoked cigaret nannette Sex Female
--- OUTSIDE RECORDS SUMMARY | 2023-01-21 06:59 | External Medical Summary | Summary of Care ---
Author Name Unknown Organization [place] [address] Care Team Providers Care Knitting Machine Operator Automatic Name Role Phone John Melendez MD Primary Care Provider [phone] Reason for Visit * Reason Onset Date Comments FYI 02/04/2021 3rd Covid Vaccin e Encounter Details Date Type Department Care Team Description 02/04/2021 Telephone Rheumatology [facility] [address] [place] [address] Jez Sharpe MD [address] [place] [address] FYI (3rd Covid Vaccine) Allergies Active Allergy Reactions Severity Noted Date Comments Nelson-2 Inhibitors Rash 03/30/2006 Cephalexin Rash 01/29/2021 Codeine High 12/26/2010 Throat swells Diclofenac 01/29/2021 Other reaction(s): Creatine elevation, raised enzymes Iodinated Diagnostic Agents 01/30/20 21 Other reaction(s): rash Isopropyl Alcohol 01/29/2021 Other reaction(s): Creatine elevation Ivp Dye Hives Medium 12/26/2002 Morphine And Related High 03/16/2003 Swells throat Nickel 01/29/2021 Other reaction(s): skin irritation Sulfa Antibiotics Rash 12/26/2002 Tetracycline Rash 12/26/2002 Tramadol Hcl 06/20/2009 Severe constipation Nsaids 03/19/2009 Elevated serum creatinine. documented as of this encounter (statuses as of 02/04/2021) Medications Medication Sig Dispensed Refills Start Date [...] 0 11/22/2014 Active PredniSONE (DELTASONE) 5 MG TabletIndications:Psor iatic arthropathy (HCC) Take 1 Tab by mouth [...] Active Ca & Phos-Vit D-Mag (POSTURE-D CALCIUM/MAGNESIUM) [phone] TABS Take by mouth. 1 daily 0 [...] Oral Tablet (Dilaudid) 2 mg. 0 06/22/2020 Ac tive Eliquis 5 MG Oral Tablet 0 12/11/2020 Active Betamethasone Sod Phos & Acet (BETAMETHASONE 6MG/ML 1ML - LIDOCAINE 0.5% 1ML) 1 syringe Inject 2 mL as directed once. 0 Active Metoprolol Succinate ER 25 MG Oral Tablet Extended Release 24 Hour (toPROL XL) 0 12/11/2020 Active Diclofenac Sodium 1.5 % External Solution 0 12/19/2020 Activ e NIFEdipine ER Osmotic Release 90 MG Oral Tablet Extended Release 24 Hour 0 01/21/2021 Active Pantoprazole Sodium 40 MG Oral Tablet Delayed Release (Protonix) take 1 tablet by mouth twice a day 1/2 HOUR PRIOR TO BREAKFAST AND DINNER 0 12/04/2020 Active documented as of this encounter (statuses as of 02/04/2021) Active Problems Problem Noted Date CKD stage 4 secondary to hypertension Encounter for examination fo r normal comparison and control in clinical research program 09/03/2017 Overview: DO NOT DELETE - [facility] DETECT Study: Project # [id number], Gristmiller: Aubrey Sierra, MS, MPH. SUMMARY: Goal: Establish [...] contact study staff at ; after hours Gristmiller via the [facility] hospital ripper operator . - Please contact study team before resolving/deleting from patients problem list. Study phone number: [phone]. Diagnosis changed due to Research Module. Go to Snapshot for study details. Hypothyroidism 02/24/2007 Psoriatic arthropathy 04/06/2003 Other psoriasis 12/26/2002 HTN, goal below 140/90 12/26/2002 GERD (gastroesophageal reflux disease) 0 12/26/2002 GENERAL OSTEOARTHROSIS 12/26/2002 documented as of this encounter (statuses as of 02/04/2021) Resolved Problems Problem Noted Date Resolved Date Encounter for examination fo r normal comparison and control in clinical research program 09/03/2017 12/26/2019 Overview: DO NOT DELETE [facility] Study: Project # [id number], Gristmiller: Antoni Ford, PhD. SUMMARY: Goal: Establish test [...] contact study staff at ; after hours Gristmiller via the [facility] hospital ripper operator . Please contact study team before resolving/deleting from patients problem list. Study phone number: [phone]. Diagnosis changed due to Research Module. Go to [employer] for study details. KIDNEY DZ,CHRONIC (GFR 30-59) STAGE III 12/14/19 10 09/22/2018 Overview: Per CKD Protocol, #1 documented as of this encounter (statuses as of 02/04/2021) Immunizations Name Administration Dates Next Due COVID-19 [...] on file documented as of this encounter Miscellaneous Notes * Telephone Encounter - Jez Sharpe MD - 02/04/2021 1:15 PM EDT Ok noted * Telephone Encounter - Micki Clark OSA - 02/04/2021 12:44 PM EDT Patient calling to inform provider that she received her third Moderna Covid -19 vaccine on 02/03/2021 at [facility]. documented in this encounter Plan of Treatment Upcoming Encounters Date Type Specialty Care Team Description 07/29/2021 Office Visit Rheumatology Jez Sharpe MD [address] [place] [address] Health Maintenance Due Date Last Done Comments CKD NEPHROLOGY EVAL USE SMARTSET 22184 1963 CKD PHOS USE SMARTSET 21611 1964 CKD PTH USE SMARTSET 38191 1964 CKD URINE PROTEIN/CREATININE RATION OR URINE MICROALBUMIN YEARLY USE SMARTSET 83494 1964 BREAST CANCER SCREENING DISCUSSION YEARLY AGES 40-75 1986 Zoster Vaccines (1 of 2) 1996 CKD CALCIUM USE SMARTSET 30943 01/16/2006 10/16/2005 Pneumococcal Vaccine: 65+ Years (3 of 4 - PCV13) 06/02/2008 06/02/2007, 2002 *COLORECTAL CANCER SCREENING (COLONOSCOPY 10 YEARS; SIGMOIDOSCOPY 5 YEARS; COLOGUARD 3 YEARS; FOBT 1 YEAR),AGES 50-75 09/08/2017 *DEPRESSION SCREENING,ANNUAL FOR PTS 12 AND OVER 09/08/2017 *TSH FOR THYROID MEDICATION MONITORING YEARLY 09/08/2017 *URINE PROTEIN ONCE FOR HTN-DIPSTICK ACCEPTABLE 09/08/2017 DTaP,Tdap,and Td Vaccines (2 - Tdap) 12/13/2019 12/12/2009 CKD GFR USE SMARTSET 83981 06/07/202012/05, 07/30/2015, 01/05/2015, Additional history exists CKD HGB USE SMARTSET 60516 06/07/202012/05, 07/30/2015, 01/05/2015, Additional history exists *BASIC METABOLIC PANEL (BMP) FOR HTN YEARLY 12/31/2020 Influenza Vaccine (FLU shot) (#1) 2021 02/22/2019, 03/05/2012, 06/08/2009, Additional history exists DIABETES SCREEN EVERY 3 YRS-AGE 45 AND ABOVE 12/05/2022 12/06/2019, 10/16/2005 COVID-19 Vaccine Completed 02/03/2021, 01/2021, 08/03/2020 MENINGOCOCCAL (MENACTRA/MENVEO) Aged Out No longer eligible based on patient's age to complete this topic documented as of this encounter Implants Implanted Type Area Coupon Manifest Clerk Device Identifier Shelf Expiration Date Model / Serial / Lot Lens 17.0 Mx60 - [id number] - [id number] Implanted:Qty: 1 on 09/01/2017 by Vic Mckee MD at OR [facility] Right: Eye [employer] LOMB : SURGICAL 01/23/2020 MX60-17.0 / [id number] / [id number] Mx60 14.5 Envista Implanted:Qty: 1 on 09/29/2017 by Vic Mckee MD at OR [facility] Left: Eye 01/23/2020 MX 60 14.5 / [id number] / [id number] documented as of this encounter Advance Directives Documents on File Type Date Recorded Patient Digital Recruiter Expl anation Advanced Directive service a [place] default Advanced Directive Advanced Directive Advanced Directive 09/01/2017 9:50 AM Advanced Directive 09/29/2017 1:36 PM Advanced Directive Advanced Directive Advanced Directive Advanced Directive Latest [...]
--- OUTSIDE RECORDS SUMMARY | 2023-01-21 06:59 | External Medical Summary | Continuity of Care Document ---
Author Name Unknown Organization [facility] [address] [place] [address] [place] [address] Care Team Providers Care Data Visualization Developer Name Role Phone John Melendez Primary Care Physician [phone] Encounter [facility] TITINBR [id number] Date(s): 06/14/20 - 06/14/20 [facility] [address] [facility] [address] [facility], [address], [address] [place] [address]- [phone] Encounter Diagnosis Body mass index [BMI] 34.0-34.9, adult(Discharge Diagnosis) - 06/14/20 Pre-op evaluation(Discharge Diagnosis) - 06/14/20 CKD (chronic kidney disease)(Discharge Diagnosis) - 06/14/20 Discharge Disposition: Home or Self Care Attending Physician: MD Dupree Wilson C Referring Physician: MD Pedro, Ky Mckay Allergies, Adverse Reactions, Alerts Substance Reaction Severity Status codeine Anaphylaxis Active tetracycline rash Active diclofenac Creatine elevation Active isopropyl alcohol [...] kathleen, bid Start Date: 06/14/20 Status: Ordered calcipotriene 0.005% topical cream Start: 12/29/18 13:52:00 EDT, 1 appl, topical, bid Start Date: 12/29/18 Status: Ordered Calcium and Magnesium oral tablet Start: 12/29/18 13:02:00 EDT, 1 tab, PO, Daily Start Date: 12/29/18 Status: Ordered clobetasol 0.05% topical cream Start: 12/29/18 13:08:00 EDT, 1 appl, topical, Daily Start Date: 12/29/18 Status: Ordered DULoxetine Start: 12/29/18 13:53:00 EDT, 60 mg =, Daily Start Date: 12/29/18 Status: Ordered Eliquis 5 mg oral tablet Start: 04/17/20 13:59:00 EST, 1 tab, PO, bid Start Date: 04/17/20 Status: Ordered Fish Oil 1000 mg oral capsule Start: 12/29/18 13:31:00 EDT, 1 cap, PO, bid Start Date: 12/29/18 Status: Ordered hydroCHLOROthiazide-metoprolol 12.5 mg-25 mg oral tablet, extended release Start: 06/14/20 14:45:00 EST, 1 tab, PO, Daily Start Date: 06/14/20 Status: Ordered levalbuterol 0.63 mg/3 mL for nebulization Start: 12/29/18 13:28:00 EDT Start Date: 12/29/18 Status: Ordered levothyroxine 100 mcg (0.1 mg) oral tablet Start: 04/17/20 14:03:00 EST, 1 tab, PO, Daily Start Date: 04/17/20 Status: Ordered magnesium oxide Start: 12/29/18 13:54:00 EDT, 400 mg =, Daily Start Date: 12/29/18 Status: Ordered NIFEdipine (Eqv-Procardia XL) 90 mg [...] Refills: 2, apply to skinfold areas, Pharmacy: [address] Start Date: 03/14/15 Status: Ordered pantoprazole Start: 12/29/18 16:19:00 EDT, 40 mg =, PO, Daily Start Date: 12/29/18 Status: Ordered potassium chloride 20 mEq oral tablet, extended release Start: 07/03/16 7:58:00, 1 tab, PO, Daily Start Date: 07/03/16 Status: Ordered predniSONE 5 mg oral tablet Start: 12/29/18 16:10:00 EDT, 1 tab, PO, Daily Start Date: 12/29/18 Status: Ordered spironolactone 25 mg oral tablet Start: 07/03/16 7:58:00, 1 tab, PO, Daily Start Date: 07/03/16 Status: Ordered Suprep Bowel Prep Kit oral liquid Start: 06/14/20 14:46:00 EST, See Instructions, Disp# 354 mL, Take as directed. Start Date: 06/14/20 Status: Ordered tacrolimus 0.03% topical ointment Start: 12/29/18 13:48:00 EDT, 1 appl, topical, bid Start Date: 12/29/18 Status: Ordered triamcinolone 0.025% topical cream Start: 12/29/18 13:47:00 EDT, 1 appl, topical, bid Start Date: 12/29/18 Status: Ordered Vitamin D3 Start: 12/29/18 13:10:00 EDT, 1,000 Int_Unit =, PO, Daily Start Date: 12/29/18 Status: Ordered ZyrTEC 10 mg oral tablet Start: 12/29/18 12:43:00 EDT, 1 tab, PO, Daily, PRN: as needed for allergy symptoms Start Date: 12/29/18 Status: Ordered Mental Status 06/14/20 Barriers to Learning one year None evide nt Mandatory Health Literacy Documentation Yes Health Literacy Communication Barriers U nable to assess Primary Language Czech Problem List Condition Effective Dates Status Health [...] Effective Dates Health Status Clinical Service Informant Body mass index [BMI] 34.0-34.9, adult Discharge Diagnosis 06/14/20 Non-Specified Pre-op evaluation Discharge Diagnosis 06/14/20 Non-Specified CKD (chronic kidney disease) Discharge Diagnosis 06/14/20 Non-Specified Procedures Procedure Date Related Diagnosis Body Site Status Colonoscopy 1 04/10/20 Completed Left knee 11/2010 Completed Procedure 2 10/2010 Completed Right shoulder 2006 Completed Thyroid 2005 Completed Hysterectomy 1985 Completed Surgery, right foot fused 3 Completed 1Impression: one 2 mm polyp in the ascending colon, removed with a cold snare. Resected and retrieved. Medium sized lipoma in the ascending colon Non bleeding internal hemorrhoids. 2Metal out of foot 3right foot fused 02/04 Results Laboratory List Name Date Basic Metabolic Panel (BASIC METAB PANEL ) 06/14/20 Most recent to oldest [Reference Range]: 1 Estimated CrCl 35.79 mL/min (06/14/20 5:21 PM) Estimated GFR, Black Race [>60 mL/min/1. 73 m2] 32 mL/min/1.73 m2 *LOW* (06/14/20 3:59 PM) Estimated GFR, non-Black Race [>60 mL/mi n/1.73 m2] 27 mL/min/1.73 m2 *LOW* (06/14/20 3:59 PM) Anion Gap [5-14 mmol/L] 13 mmol/L (06/14/20 3:59 PM) BUN [6-23 mg/dL] 29 mg/dL *HI* (06/14/20 3:59 PM) Ca [8.4-10.2 mg/dL] 10.0 mg/dL (06/14/20 3:59 PM) Cl- [98-107 mmol/L] 106 mmol/L (06/14/20 3:59 PM) HCO3 [22-29 mmol/L] 23 mmol/L (06/14/20 3:59 PM) Cret [0.60-1.00 mg/dL] 1.84 mg/dL *HI* (06/14/20 3:59 PM) Glu [74-109 mg/dL] 132 mg/dL 1 *HI* (06/14/20 3:59 PM) K [3.5-5.1 mmol/L] 4.5 mmol/L 2 (06/14/20 3:59 PM) Na [136-145 mmol/L] 142 mmol/L (06/14/20 3:59 PM) 1Result Comment: ADA recommendation for FASTING Serum/Plasma Glucose: Normal: 70-100 mg/dL Prediabetes: 100-125 mg/dL Diabetes: 126 mg/dL or higher 2Result Comment: HEMOLYZED SPECIMEN Vital Signs Most recent to oldest [Reference Range]: 1 Height 178.0 cm (06/14/20 2:55 PM) Patient Weight 108.3 kg (06/14/20 2:55 PM) Body Mass Index 34.18 kg/m2 (06/14/20 2:55 PM) Temperature [36.5-38 DegC] 36.4 DegC *LOW* (06/14/20 2:55 PM) Heart Rate 101 bpm (06/14/20 2:55 PM) Respiratory Rate 24 br/min (06/14/20 2:55 PM) Blood Pressure 179/96mmHg (06/14/20 2:55 PM) Mean Blood Pressure 133 mmHg (06/14/20 2:55 PM) Cuff Pulse Pressure 83 mmHg (06/14/20 2:55 PM) BP Location # 1 Right Arm (06/14/20 2:55 PM) Social History Social History Type Response Smoking Status Former Smoker, quit > 1 yr Sex Female
--- OUTSIDE RECORDS SUMMARY | 2023-01-21 06:59 | External Medical Summary | Summary of Care ---
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 daily. 0 Active Potassium Chloride Katherine ER 20 MEQ TBCR 1 twice daily 0 12/04/2014 Ac tive PredniSONE (DELTASONE) 5 MG TabletIndications:P soriatic arthropathy (HCC) Take 1 Tab by mouth daily. 100 Tab 3 01/05/2015 Active Azelastine HCl 0.1 % nasal spray Administer 2 Sprays into nostril in the morning. 0 07/02/2015 Active Magnesium 400 MG Capsule Take 2 Capsules by mouth in the morning. 0 Active Cetirizine HCl 10 MG Oral Capsule Take 1 Capsule by mouth in the morning. 0 Active DULoxetine (CYMBALTA) 60 MG CPEP 1 daily 0 08/25/2018 Active nitroglycerin (NITRO-DUR) 0.4 MG/HR patch Apply 12-14 hr then remove 0 09/13/2018 Active Ca & Phos-Vit D-Mag [phone] Oral Tablet Take by mouth. 1 daily 0 Active levalbuterol (XOPENEX) 0.63 MG/3ML nebulizer solution Inhale 3 mL via nebulizer every 4 hours as needed for Wheezing. 0 Active triamcinolone acetonide (ARISTOCORT) 0.025 % cream Apply topically to affected area 2 times a day. Apply to hands 0 Active tacrolimus (PROTOPIC) 0.03 % OINT Apply topically to affected area 2 times a day. Apply to both hands 0 Active Calcipotriene 0.005 % cream Apply topically to affected area 2 times a day. Apply to affected areas 0 Active ACCU-CHEK GUIDE STRP 0 05/13/2019 Active RA ACETAMINOPHEN EX ST 500 MG Tablet As needed 0 05/30/2019 Active levothyroxine (LEVOXYL) 100 MCG Tablet Take 1 Tablet by mouth in the morning. 0 10/18/2019 Active HYDROmorphone HCl 2 MG Oral Tablet (Dilaudid) 1 Tablet. 0 06/22/2020 Active Eliquis 5 MG Oral Tablet 0 12/11/2020 Active Metoprolol Succinate ER 25 MG Oral [...] MCG Oral Capsule (Rocaltrol) 0 09/16/2021 Active Omeprazole 40 MG Oral Capsule Delayed Release (PriLOSEC) Take 1 Capsule by mouth in the morning. 0 Active VITAMIN D 1000 UNIT PO CAPS 1 tab by mouth daily 0 11/15/2007 3 Discontinued nitroglycerin 0.4 MG/SPRAY spray As needed 0 11/22/2014 3 Discontinued benzonatate (TESSALON PERLES) 100 MG Capsule Take 100 mg by mouth 2 times a day as needed for Cough. 0 3 Discontinued NIFEdipine ER Osmotic Release 30 MG TB24 1 daily 0 09/28/2018 3 Discontinued Betamethasone Sod Phos & Acet (BETAMETHASONE 6MG/ML 1ML - LIDOCAINE 0.5% 1ML) 1 syringe Inject 2 mL as directed once. 0 3 Discontinued Magnesium Oxide 400 MG Oral Capsule Take 1 capsule by oral route 2 times every day 0 3 Discontinued documented as of this encounter (statuses as of 12/16/2022) Active Problems Problem Noted Date CKD stage 4 secondary to hypertension Hypothyroidism 02/24/2007 Psoriatic arthropathy 04/06/2003 Other psoriasis 12/26/2002 HTN, goal below 140/90 12/26/2002 GERD (gastroesophageal reflux disease) 0 12/26/2002 GENERAL OSTEOARTHROSIS 12/26/2002 documented as of this encounter (statuses as of 12/16/2022) Resolved Problems Problem Noted Date Resolved Date Encounter for examination fo r normal comparison and control in clinical research program 09/03/2017 12/26/2019 Overview: DO NOT DELETE KDS DETECT Study: Project # [id number], Sort Line Worker: Antoni Ford, PhD. SUMMARY: Goal: Establish [...] contact study staff at ; after hours Sort Line Worker via the [facility] heat treating operator . Please contact study team before resolving/deleting from patients problem list. Study phone number: [phone]. Diagnosis changed due to Research Module. Go to Snapshot for study details. Encounter for examination fo r normal comparison and control in clinical research program 09/03/2017 01/23/2022 Overview: DO NOT DELETE - KDS DETECT Study: Project # [id number], Sort Line Worker: Aubrey Sierra, MS, MPH. SUMMARY: Goal: [...] contact study staff at ; after hours Sort Line Worker via the [facility] hospital heat treating operator . - Please contact study team before resolving/deleting from patients problem list. Study phone number: [phone]. Diagnosis changed due to Research Module. Go to Snapshot for study details. KIDNEY DZ,CHRONIC (GFR 30-59) STAGE III 12/14/19 10 09/22/2018 Overview: Per CKD Protocol, #1 documented as of this encounter (statuses as of 12/16/2022) Immunizations Name Administration Dates Next Due COVID-19 mRNA, LNP-s, No Pre serve, 2-Dose Series (Moderna) 02/03/2021,08/31/2020,08/03/2020 Covid-19, Mrna, Lnp-s, Pf, B ivalent, 50 Mcg, IM, 12 yrs and above [...] Sign Reading Time Taken Comments Blood Pressure 124/80 12/16/2022 10:33 AM EDT Pulse - - Temperature 36.4 C (97.5 F) 12/16/2022 10:33 AM E DT Respiratory Rate - - Oxygen Saturation - - Inhaled Oxygen Concentration - - Weight 102.5 kg (226 lb) 12/16/2022 10:33 AM EDT Height - - Body Mass Index 31.52 09/22/2018 8:17 AM EDT documented in this encounter Progress Notes * Jez Sharpe MD - 12/16/2022 10:38 AM EDT Subjective: Patient seen today for further follow up evaluation of osteoarthritis, psoriatic arthritis, chronickidney disease stage 4. Since the last visit her right ankle pain is getting worse. Using a brace with little benefit. Had x rays and waiting to see orthopaedics. She had surgery about 20 yrs ago on this ankle. She has tried topical treatments including CBD with no help. Pain is worse at night even with resting. Still dealing with CMC arthritis. Bothering her more. Has neck pain as well. Seeing neurology in December as well. Shee does see Nephrology and states that her kidney function is slightlybetter. She did have a bone density test in May with a T-score -1.0 at the left forearm. Recommended a repeat study in 7 years. Musculoskeletal ROS: . Abnormal: joint pain and neck pain . Pain scale (0-10): 5 Other ROS: . Constitutional: fatigue . Head normal . Eyes: normal . Ears, nose, throat, mouth: Psoriasis right ear . Cardiovascular: normal . Respiratory: normal . Gastrointestinal: normal . Genitourinary: normal . Skin: Psoriasis All other ROS reviewed and negative Social History: Social History Tobacco Use Smoking status: Former Types: Cigarettes Quit date: 07/15/1972 Years since quittin.4 Smokeless tobacco: Never Substance Use Topics Alcohol use: Yes Comment: rare Vaping/E-Cigarette Use Vaping/E-Cigarette Substances Vaping/E-Cigarette Devices Current Outpatient Medications Medication Sig Dispense Refill CLOBETASOL PROPIONATE 0.05 % EX CREA Apply to affected area twice daily as needed for flares 60GM 4 FISH OIL 1000 MG PO CAPS one capsule twice daily spironolactone (ALDACTONE) 25 MG Tablet 1 Tablet in the morning and 1 Tablet before bedtime. daily. Potassium Chloride Katherine ER 20 MEQ TBCR 1 twice daily PredniSONE (DELTASONE) 5 MG Tablet Take 1 Tab by mouth daily. 100 Tab 3 Azelastine HCl 0.1 % nasal spray Administer 2 Sprays into nostril in the morning. Magnesium 400 MG Capsule Take 2 Capsules by mouth in the morning. Cetirizine HCl 10 MG Oral Capsule Take 1 Capsule by mouth in the morning. DULoxetine (CYMBALTA) 60 MG CPEP 1 daily nitroglycerin (NITRO-DUR) 0.4 MG/HR patch Apply 12-14 hr then remove Ca & Phos-Vit D-Mag [phone] Oral Tablet Take by mouth. 1 daily levalbuterol (XOPENEX) 0.63 MG/3ML nebulizer solution Inhale 3 mL via nebulizer every 4 hours as needed for Wheezing. triamcinolone acetonide (ARISTOCORT) 0.025 % cream Apply topically to affected area 2 times a day. Apply to hands tacrolimus (PROTOPIC) 0.03 % OINT Apply topically to affected area 2 times a day. Apply to bothhands Calcipotriene 0.005 % cream Apply topically to affected area 2 times a day. Apply to affected areas ACCU-CHEK GUIDE STRP RA ACETAMINOPHEN EX ST 500 MG Tablet As needed levothyroxine (LEVOXYL) 100 MCG Tablet Take 1 Tablet by mouth in the morning. HYDROmorphone HCl 2 MG Oral Tablet (Dilaudid) 1 Tablet. Eliquis 5 MG Oral Tablet Metoprolol Succinate ER 25 MG Oral Tablet Extended Release 24 Hour (toPROL XL) Take 1/2 tablet NIFEdipine ER Osmotic Release 90 MG Oral [...] Pen-injector Calcitriol 0.25 MCG Oral Capsule (Rocaltrol) Diclofenac Sodium 1.5 % External Solution (Patient not taking: Reported on 12/16/2022) Omeprazole 40 MG Oral Capsule Delayed Release (PriLOSEC) Take 1 Capsule by mouth in the morning. No current facility-administered medications for this visit. Physical Exam: BP 124/80 | Temp 36.4 C (97.5 F) (Infrared ) | Wt 102.5 kg (226 lb) | BMI 31.52 kg/m | BSA 2.27 m General: alert, healthy, no distress and well nourished HENT: normocephalic, external ears normal, no mucosal erythema, no mucosal edema, moist mucosa, no oral ulcers, psoriasis noted on right ear and in the canal Eye Exam: PERRL, EOMI, conjunctiva are pink and non-injected, sclera clear Neck: supple, no adenopathy, thyroid normal size, non-tender, without nodularity Lymph: no palpable lymphadenopathy Heart: regular rate & rhythm and no gallops Lungs: clear to auscultation , no rales, wheezes or rhonchi Abdomen: abdomen soft, non-tender and normal bowel sounds Musculoskeletal Exam: Right ankle in brace Squaring of both thumb bases with discomfort on the right side greater than left No synovitis of the hands Assessment: L40.50 Psoriatic arthropathy (HCC) (primary encounter diagnosis) M15.9 GENERAL OSTEOARTHROSIS I12.9,N18.4 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 More dealing with osteoarthritis of the hands and right ankle. Seen Orthopedics for the right ankle. Plan: 1. Continue with prednisone 5 mg daily 2. Continue care with Orthopedics 3. Return to clinic 1 year Jez Sharpe MD Department of Rheumatology documented in this encounter Nursing Notes * Dorothea Cole LPN - 12/16/2022 10:33 AM EDT Chief Complaint Patient presents with Rheum Follow Up Recheck PSA documented in this encounter Plan of Treatment Upcoming Encounters Date Type Specialty Care Team Description 12/21/2023 Office Visit Rheumatology Jez Sharpe MD [address] [facility] [place] [address] Health Maintenance Due Date Last Done Comments Depression Screening, Annual for Pts 12 and Over 1958 Albumin/Creatinine Ratio 1964 Hepatitis C Screening 1963 Nephrology Referral 1964 PTH 1964 Phosphate 1964 Zoster Vaccines (1 of 2) 1965 Pneumococcal Vaccine: 65+ Years (3 - PCV) 06/02/2008 06/02/2007, 2002 TSH 10/18/2011 10/17/2010, 12/23, 09/06/2008, Additional history exists DTaP,Tdap,and Td Vaccines (2 - Tdap) 12/13/2019 12/12/2009 GFR 06/07/2020 12/06/2019, 030 11/2015, 01/05/2015, Additional history exists Hgb 12/05/2020 12/06/2019, 030 11/2015, 01/05/2015, Additional history exists COVID-19 Vaccine (5 - Moderna risk series) 06/11/2022 04/16/2022, 03/04/2022, 03/04/2022, Additional history exists Influenza Vaccine (FLU shot) (#1) 2023 04/16/2022, 02/22/2019, 02/22/2019, Additional history exists GARDASIL-HPV IMMUNIZATION SERIES Aged Out No longer eligible based on patient's age to complete this topic Hepatitis B Aged Out No longer eligi ble based on patient's age to complete this topic MENINGOCOCCAL (MENACTRA/MENVEO) Aged Out No longer eligible based on patient's age to complete this topic documented as of this encounter Medical Devices Implanted Type Area Used Car Renovator Device Identifier Shelf Expiration Date Model / Serial / Lot Lens 17.0 Mx60 - [id number] - [id number] Implanted:Qty: 1 on 09/01/2017 by Vic Mckee MD at OR [facility] Right: Eye [employer] : SURGICAL 01/23/2020 MX60-17.0 / [id number] / [id number] Mx60 14.5 Envista Implanted:Qty: 1 on 09/29/2017 by Vic Mckee MD at OR [facility] Left: Eye 01/23/2020 MX 60 14.5 / [id number] / [id number] documented as of this encounter Visit Diagnoses Diagnosis Psoriatic arthropathy (HCC)- Primary Psoriatic arthropathy GENERAL OSTEOARTHROSIS Generalized osteoarthrosis, unspecified site 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 Care Teams Technical Director Relationship Specialty Start Date End Date John Melendez MD [address] [place] [address] PCP - General Internal Medicine 08/13/17 documented as of this encounter"
--- OUTSIDE RECORDS SUMMARY | 2023-01-21 06:59 | External Medical Summary | Continuity of Care Document ---
Author Name Unknown Organization [address] ESTRE[address] [place] [address] Care Team Providers Care Grape Cutter Name Role Phone John Melendez Primary Care Physician [phone] Encounter [facility] [id number] Date(s): 01/01/21 - 01/01/[address] CHACKO [address] [facility] Diagnostic Radiology [address] [facility], [address] [place] [address] us [phone] Discharge Disposition: Home or Self Care Attending Physician: MD Ken John P Referring Physician: MD Ken John P Allergies, Adverse Reactions, Alerts Substance Reaction Severity [...] days dissolve in water or juice, Pharmacy: [facility] Start Date: 07/10/20 Stop Date: 08/09/20 Status: Ordered clobetasol 0.05% topical cream Start: 12/29/18 13:08:00 EDT, 1 appl, topical, Daily Start Date: 12/29/18 Status: Ordered Dilaudid 2 mg oral tablet Start: 06/22/20 11:09:00 EST, 1 tab, PO, q4h, Disp# 24 tab, Refills: 0, PRN: as needed for pain, Pharmacy: [facility] Start Date: 06/22/20 Status: Ordered DULoxetine Start: [...] Refills: 2, apply to skinfold areas, Pharmacy: [address] Start Date: 03/14/15 Status: Ordered ocular [...] allergy symptoms Start Date: 12/29/18 Status: Ordered Problem List Condition Effective Dates Status Health [...] disorder(Confirmed) Active 1hands and forearms 2Left leg Procedures Procedure Date Related Diagnosis Body Site [...] of foot 3right foot fused 02/04 Results Radiology Reports * Exam Date Time Procedure Performing Provider Status 01/01/21 1:25 PM MRI Spine Cervical w/o Contrast Kimani Aguirre; Final Notes: (MRI Spine Cervical w/o Contrast) Reason For Exam: f/u cervical stenosis, c2 body meningioma MRI Spine Cervical w/o Contrast EXAMINATION: MRI OF THE CERVICAL SPINE WITHOUT CONTRAST CLINICAL HISTORY: M48.02: Spinal stenosis, cervical region; f/u cervical stenosis, meningioma COMPARISON: 12/29/2018, 12/23/2016 TECHNIQUE: Multiplanar, multisequence MR of the cervical spine was performed without intravenous contrast. FINDINGS: Alignment: anatomic except for anterior subluxation at C7 on T1, unchanged Vertebrae: Marrow signal is normal. Vertebral body heights are maintained. Severe disc space narrowing throughout the cervical spine with incomplete segmentation of C2 and C3. Cord: normal in signal and morphology. Again seen is a small calcified dural based, medullary lesion posterior to the cord at T1, measuring 3 mm in AP dimension and 13 mm in craniocaudal dimension. No cord edema. Prevertebral space: Unremarkable Posterior fossa: normal position and configuration of the cerebellar tonsils. Axial interbody analysis: C2-C3: no significant spinal canal or neural foraminal stenosis. C3-C4: Disc osteophyte complex and left uncovertebral hypertrophy with moderate left neural foraminal stenosis and spinal canal stenosis. C4-C5: Disc osteophyte complex, uncovertebral hypertrophy and severe right facet hypertrophy with severe spinal canal and right neural foraminal stenosis, moderate left neural foraminal stenosis C5-C6: Diffuse disc bulge and uncovertebral and facet hypertrophy with severe spinal canal and bilateral neural foraminal stenosis C6-C7: Disc osteophyte complex and uncovertebral hypertrophy with mild spinal canal and bilateral neural foraminal stenosis C7-T1: Anterior subluxation, disc uncovering and facet hypertrophy with severe spinal canal stenosis, mild bilateral neural foraminal stenosis IMPRESSION: 1. Severe multilevel degenerative changes in the cervical spine similar to 2019, with severe spinalcanal stenosis at C4-C5, C5-C6 and C7-T1. 2. Moderate to severe neural foraminal stenosis at C4-C5 and C5-C6, also similar to 2019. 3. Small posterior midline calcified, extramedullary dural based lesion is almost certainly meningioma and unchanged dating back to 2017 [place] Act 112: This study does not meet the requirements of [place] Act 112. Final Dictated by:MD Mena Tao Dictated DT/TM:01/01/2021 2:06 Signed by:MD Mena Tao Signed (Electronic Signature):01/01/2021 2:05 p Social History Social History Type Response Smoking Status Never smoked cigaret nannette Sex Female
--- OUTSIDE RECORDS SUMMARY | 2023-01-21 06:59 | External Medical Summary | Continuity of Care Document ---
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 S/P exploratory laparotomy(Discharge Diagnosis) - 07/06/20 Volvulus(Final) - Chronic kidney disease, stage 4 (severe)(Final) - Acute posthemorrhagic anemia(Final) - Unspecified atrial fibrillation(Final) - Anemia in chronic kidney disease(Final) - Polyneuropathy, unspecified(Final) - Paralytic ileus(Final) - Intestinal adhesions [bands], with partial obstruction(Final) - Arthropathic psoriasis, unspecified(Final) - Umbilical hernia without obstruction or gangrene(Final) - Hypokalemia(Final) - Hypertensive chronic kidney disease with stage 1 through stage 4 chronic kidney disease, or unspecified chronic kidney disease(Final) - Benign lipomatous neoplasm of intra-abdominal organs(Final) - Postprocedural hypothyroidism(Final) - Allergy status to narcotic agent(Final) - 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) - 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) - Obesity, unspecified(Final) - 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) - Body mass index [BMI] 32.0-32.9, adult(Final) - Discharge Disposition: Home or Self Care Attending Physician: MD Vasquez Jeffrey S Admitting Physician: MD Vasquez Jeffrey S Allergies, Adverse Reactions, Alerts Substance Reaction Severity [...] OxyCONTIN rash Active 1Propylene glycol 2Capsaicin 3Diclopak Functional Status 07/10/20 History of Fall in Last 3 Months Dobbs N o Presence of Secondary Diagnosis Dobbs Ye s Use of Ambulatory Aid Dobbs None/bedrest /nurse assist IV/Heparin Lock Fall Risk Dobbs No Gait/Transferring Fall Risk Dobbs Normal /bedrest/immobile Mental Status Fall Risk Dobbs Oriented t o own ability Dobbs Fall Risk Score 15 Dobbs Fall Risk No Risk 07/10/20 Neurological Symptoms None ADLs Minimal assistance Facial Symmetry Symmetric Gait Steady Swallowing Difficulty None Level of Consciousness Neuro Alert Hallucinations Present None Speech Pattern Clear 06/18/20 Hendrich II Fall Risk Assessment Altered elimination Hendrich II Fall Score 4 Medications acetaminophen Start: 06/14/20 14:43:00 EST, 1,000 [...] days dissolve in water or juice, Pharmacy: [facility] [place] Start Date: 07/10/20 Stop Date: 08/09/20 Status: Ordered clobetasol 0.05% topical cream Start: 12/29/18 13:08:00 EDT, 1 appl, topical, Daily Start Date: 12/29/18 Status: Ordered Dilaudid 2 mg oral tablet Start: 06/22/20 11:09:00 EST, 1 tab, PO, q4h, Disp# 24 tab, Refills: 0, PRN: as needed for pain, Pharmacy: [facility] [place] Start Date: 06/22/20 Status: Ordered DULoxetine Start: [...] =, Daily Start Date: 12/29/18 Status: Ordered metoprolol succinate (ER) 25 mg, XL tablet, PO, 07/10/20 9:00:00 EST, 07/10/20 9:00:00 EST, Hold for HR < 60 or SBP < 100 Start Date: 07/10/20 Stop Date: 07/10/20 Status: Completed Metoprolol Succinate ER 25 mg oral tablet, extended release Start: 06/17/20 16:06:00 EST, 1 tab, PO, Daily Start Date: 06/17/20 Status: Ordered metoprolol tartrate 5 mg, injection, IV, 07/10/20 4:00:00 EST, 07/10/20 4:00:00 EST Start Date: 07/10/20 Stop Date: 07/10/20 Status: Completed NIFEdipine (Eqv-Procardia XL) 90 mg oral tablet, [...] 2, apply to skinfold areas, Pharmacy: [facility] Start Date: 03/14/15 Status: Ordered ocular [...] Start Date: 12/29/18 Status: Ordered Mental Status 06/17/20 Communication Barrier Present No Primary Language Mongolian Problem List Condition Effective Dates Status Health [...] Clinical Service Informant Cecal volvulus Discharge Diagnosis 06/15/20 Non-Specified S/P exploratory laparotomy Discharge Diagnosis 07/06/20 Procedures Procedure Date Related Diagnosis Body Site [...] Laboratory List Name Date Basic Metabolic Panel (BMP) 07/10/20 Magnesium Level 07/10/20 Phosphorus Level 07/10/20 Basic Metabolic Panel (BMP) 07/09/20 Magnesium Level 07/09/20 Phosphorus Level 07/09/20 Basic Metabolic Panel (BMP) 07/08/20 Magnesium Level 07/08/20 Phosphorus Level 07/08/20 Added on Lab order 07/07/20 Prealbumin Level (PREALBUMIN) 07/07/20 Transferrin (TRANSFERRIN) 07/07/20 Prothrombin Time w/ INR (PT/INR) 07/02/20 Complete Blood Count (CBC w Platelets) Complete Blood Count (CBC w Platelets) Hemoglobin A1C (Hgb A1C) 07/01/20 Added on Lab order 06/30/20 Complete Blood Count (CBC w Platelets) Added on Lab order 06/27/20 Prealbumin Level 06/25/20 Troponin T 06/25/20 Troponin T 06/24/20 Troponin T 06/24/20 Albumin Level 06/23/20 Creatinine, Urine, Random (Urine Creatin ine, Random) 06/22/20 Sodium, Urine, Random (Na, Urine, Random ) 06/22/20 Prealbumin Level 06/22/20 Complete Blood Count w Differential (CBC w Platelets and Diff) 06/19/20 Complete Blood Count w Differential (CBC w Platelets and Diff) 06/18/20 Blood Type/Antibody Screen (for possible transfusion) (TYPE AND SCREEN) 06/17/20 Nephrology Panel 06/17/20 Most recent to oldest [Reference Range]: 1 2 3 ABO/Rh O NEGATIVE (06/17/20 4:11 PM) Antibody Scr NEGATIVE (06/17/20 4:11 PM) Expires at 0600AM on 06/20/2020 (06/17/20 4:11 PM) # Units 0 (06/17/20 4:11 PM) R Number NRQ (06/17/20 4:11 PM) Estimated Average Glucose 160 mg/dL (07/01/20 6:25 AM) Request of Physician prealbumin transfer rin (07/07/20 6:11 AM) Mg level Po4 level (06/30/20 5:45 AM) magnesium level (06/27/20 7:01 PM) Action Taken YES (07/07/20 6:11 AM) YES (06/30/20 5:45 AM) Test NOT added because: 1 (06/27/20 7:01 PM) Hypochromia SLIGHT (06/18/20 6:43 PM) Platelet Morphology NORMAL (06/18/20 6:43 PM) Estimated CrCl 38.56 mL/min (07/10/20 6:53 AM) 40.73 mL/min (07/09/20 7:04 AM) 44.33 mL/min (07/08/20 8:05 AM) Troponin T [<0.010 ng/mL] <0.010 ng/mL 2 (06/25/20 6:07 AM) <0.010 ng/mL 3 (06/24/20 11:01 PM) <0.010 ng/mL 4 (06/24/20 5:50 PM) Troponin T Delta NOT CALCULATED (06/25/20 6:07 AM) NOT CALCULATED (06/24/20 11:01 PM) NOT CALCULATED (06/24/20 5:50 PM) Estimated GFR, Black Race [>60 mL/min/1.73 m2] 36 mL/min/1.73 m2 *LOW* (07/10/20 5:43 AM) 38 mL/min/1.73 m2 *LOW* (07/09/20 5:57 AM) 42 mL/min/1.73 m2 *LOW* (07/08/20 6:41 AM) Estimated GFR, non-Black Race [>60 mL/min/1.73 m2] 30 mL/min/1.73 m2 *LOW* (07/10/20 5:43 AM) 32 mL/min/1.73 m2 *LOW* (07/09/20 5:57 AM) 35 mL/min/1.73 m2 *LOW* (07/08/20 6:41 AM) MPV [9.0-12.2 fL] 10.8 fL (07/02/20 6:17 AM) 10.7 fL (07/01/20 5:03 PM) 10.3 fL (06/30/20 5:44 AM) Immature Gran% 0.6 % (06/19/20 6:11 AM) 0.0 % (06/18/20 6:43 PM) Neut% 83.9 % (06/19/20 6:11 AM) 97.3 % (06/18/20 6:43 PM) Lymph% 8.3 % (06/19/20 6:11 AM) 1.8 % (06/18/20 6:43 PM) Mcleod% 6.9 % (06/19/20 6:11 AM) 0.9 % (06/18/20 6:43 PM) Baso% 0.2 % (06/19/20 6:11 AM) 0.0 % (06/18/20 6:43 PM) Eos% 0.1 % (06/19/20 6:11 AM) 0.0 % (06/18/20 6:43 PM) Immat Gran, Abs [0-0.4 K/uL] 0.06 K/uL (06/19/20 6:11 AM) Immat Gran, Abs [0.0-0.4 K/uL] 0.00 K/uL (06/18/20 6:43 PM) Neut, Abs [2.0-7.7 K/uL] 8.58 K/uL *HI* (06/19/20 6:11 AM) 12.13 K/uL *HI* (06/18/20 6:43 PM) Lymph, Abs [1.0-3.4 K/uL] 0.85 K/uL *LOW* (06/19/20 6:11 AM) 0.22 K/uL *LOW* (06/18/20 6:43 PM) Mcleod, Abs [0-1.0 K/uL] 0.71 K/uL (06/19/20 6:11 AM) 0.11 K/uL (06/18/20 6:43 PM) Baso, Abs [0-0.1 K/uL] 0.02 K/uL (06/19/20 6:11 AM) 0.00 K/uL (06/18/20 6:43 PM) Eos, Abs [0-0.5 K/uL] 0.01 K/uL (06/19/20 6:11 AM) 0.00 K/uL (06/18/20 6:43 PM) Type of Diff: AUTO (06/19/20 6:11 AM) MANUAL (06/18/20 6:43 PM) RDW [11.5-14.2 %] 18.4 % *HI* (07/02/20 6:17 AM) 18.4 % *HI* (07/01/20 5:03 PM) 18.1 % *HI* (06/30/20 5:44 AM) Component RED CELLS (06/17/20 4:11 PM) Anion Gap [5-14 mmol/L] 12 mmol/L (07/10/20 5:43 AM) 11 mmol/L (07/09/20 5:57 AM) 12 mmol/L (07/08/20 6:41 AM) Alb [3.5-5.2 g/dL] 2.8 g/dL *LOW* (06/23/20 6:12 AM) 4.2 g/dL (06/17/20 4:05 PM) BUN [6-23 mg/dL] 26 mg/dL *HI* (07/10/20 5:43 AM) 27 mg/dL *HI* (07/09/20 5:57 AM) 32 mg/dL *HI* (07/08/20 6:41 AM) Ca [8.4-10.2 mg/dL] 8.4 mg/dL (07/10/20 5:43 AM) 8.3 mg/dL *LOW* (07/09/20 5:57 AM) 8.9 mg/dL (07/08/20 6:41 AM) Cl- [98-107 mmol/L] 104 mmol/L (07/10/20 5:43 AM) 107 mmol/L (07/09/20 5:57 AM) 107 mmol/L (07/08/20 6:41 AM) HCO3 [22-29 mmol/L] 18 mmol/L *LOW* (07/10/20 5:43 AM) 18 mmol/L *LOW* (07/09/20 5:57 AM) 20 mmol/L *LOW* (07/08/20 6:41 AM) Cret [0.60-1.00 mg/dL] 1.69 mg/dL *HI* (07/10/20 5:43 AM) 1.60 mg/dL *HI* (07/09/20 5:57 AM) 1.47 mg/dL *HI* (07/08/20 6:41 AM) HbA1c [4.0-6.0 %] 7.2 % *HI* (07/01/20 6:25 AM) Glu [74-109 mg/dL] 124 mg/dL 5 *HI* (07/10/20 5:43 AM) 151 mg/dL 6 *HI* (07/09/20 5:57 AM) 152 mg/dL 7 *HI* (07/08/20 6:41 AM) Hct [35-44 %] 36.2 % (07/02/20 6:17 AM) 35.0 % (07/01/20 5:03 PM) 30.7 % *LOW* (06/30/20 5:44 AM) Hgb [11.7-15.0 g/dL] 10.8 g/dL *LOW* (07/02/20 6:17 AM) 10.6 g/dL *LOW* (07/01/20 5:03 PM) 9.5 g/dL *LOW* (06/30/20 5:44 AM) INR [0.9-1.1] 1.2 8 *HI* (07/02/20 11:03 AM) K [3.5-5.1 mmol/L] 4.0 mmol/L (07/10/20 5:43 AM) 4.2 mmol/L (07/09/20 5:57 AM) 4.0 mmol/L (07/08/20 6:41 AM) MCH [28-33 pg] 27.5 pg *LOW* (07/02/20 6:17 AM) 27.7 pg *LOW* (07/01/20 5:03 PM) 27.8 pg *LOW* (06/30/20 5:44 AM) MCHC [32-36 g/dL] 29.8 g/dL *LOW* (07/02/20 6:17 AM) 30.3 g/dL *LOW* (07/01/20 5:03 PM) 30.9 g/dL *LOW* (06/30/20 5:44 AM) MCV [81-96 fL] 92.1 fL (07/02/20 6:17 AM) 91.4 fL (07/01/20 5:03 PM) 89.8 fL (06/30/20 5:44 AM) Mg [1.6-2.6 mg/dL] 2.0 mg/dL (07/10/20 5:43 AM) 1.9 mg/dL (07/09/20 5:57 AM) 2.2 mg/dL (07/08/20 6:41 AM) Na [136-145 mmol/L] 134 mmol/L *LOW* (07/10/20 5:43 AM) 136 mmol/L (07/09/20 5:57 AM) 139 mmol/L (07/08/20 6:41 AM) Pre-alb [20-40 mg/dL] 25 mg/dL (07/07/20 6:10 AM) 15 mg/dL *LOW* (06/25/20 9:21 PM) 11 mg/dL *LOW* (06/22/20 2:02 PM) PO4 [2.5-4.5 mg/dL] 2.7 mg/dL (07/10/20 5:43 AM) 3.0 mg/dL (07/09/20 5:57 AM) 3.0 mg/dL (07/08/20 6:41 AM) Plts [150-350 K/uL] 654 K/uL *HI* (07/02/20 6:17 AM) 667 K/uL *HI* (07/01/20 5:03 PM) 557 K/uL *HI* (06/30/20 5:44 AM) PT [12.0-14.2 seconds] 15.3 seconds *HI* (07/02/20 11:03 AM) RBC [3.90-5.00 M/uL] 3.93 M/uL (07/02/20 6:17 AM) 3.83 M/uL *LOW* (07/01/20 5:03 PM) 3.42 M/uL *LOW* (06/30/20 5:44 AM) Transferrin [200-360 mg/dL] 208 mg/dL (07/07/20 6:10 AM) Creat (u) 160.84 mg/dL 9 (06/22/20 3:24 PM) Na (u) 75 mmol/L 10 (06/22/20 3:24 PM) WBC [4.0-10.4 K/uL] 18.95 K/uL *HI* (07/02/20 6:17 AM) 20.80 K/uL *HI* (07/01/20 5:03 PM) 8.98 K/uL (06/30/20 5:44 AM) 1Result Comment: DUPLICATE REQUEST 2Result Comment: cTnT >= 0.030 ng/ml: myocardial necrosis present. This may be due to acute myocardial ischemia (AMI) or other myocardial injury. cTnT < 0.010 ng/ml: 99th percentile upper reference limit for ostensibly healthy adult referencepopulation (male and female). 3Result Comment: cTnT >= 0.030 ng/ml: myocardial necrosis present. This may be due to acute myocardial ischemia (AMI) or other myocardial injury. cTnT < 0.010 ng/ml: 99th percentile upper reference limit for ostensibly healthy adult referencepopulation (male and female). 4Result Comment: cTnT >= 0.030 ng/ml: myocardial necrosis present. This may be due to acute myocardial ischemia (AMI) or other myocardial injury. cTnT < 0.010 ng/ml: 99th percentile upper reference limit for ostensibly healthy adult referencepopulation (male and female). 5Result Comment: ADA recommendation for FASTING Serum/Plasma Glucose: Normal: 70-100 mg/dL Prediabetes: 100-125 mg/dL Diabetes: 126 mg/dL or higher 6Result Comment: ADA recommendation for FASTING Serum/Plasma Glucose: Normal: 70-100 mg/dL Prediabetes: 100-125 mg/dL Diabetes: 126 mg/dL or higher 7Result Comment: ADA recommendation for FASTING Serum/Plasma Glucose: Normal: 70-100 mg/dL Prediabetes: 100-125 mg/dL Diabetes: 126 mg/dL or higher 8Result Comment: Suggested therapeutic range for low-intensity Coumadin therapy for venous thromboembolism is INR 2.0-3.0 (ex: atrial fibrillation, history of TIA/stroke). For high risk patients, the suggested therapeutic range is INR 2.5-3.5 (ex: mechanical prosthetic valves). 9Result Comment: Reference Range for Random Urine Not Established. 10Result Comment: Reference Range for Random Urine Not Established. Orders for Microbiology Reports Name Date Clostridium difficile Toxin Gene Assay. 07/10/20 COVID-19 Coronavirus PCR inhouse 06/17/20 Microbiology Reports TEST:C.Diff Toxin STATUS:Auth (Verified) BODY SITE: SOURCE:Stool COLLECTED DATE/TIME:07/10/20 6:45 AM Culture No Clostridium difficile toxin genes detected. TEST:COVID-19 Coronavirus PCR STATUS:Auth (Verified) BODY SITE: SOURCE:Nasal/Pharyngeal COLLECTED DATE/TIME:06/17/20 4:43 PM Multiplex PCR COVID 19 virus not detected This assay has been granted an Emergency Use Authorization (EUA) by the U.S. Food and Drug Administration. The performance of the assay (Focus) has been verified by the [facility]. Test results reported to [place] [facility] Radiology Reports (Most Recent Ten) * Exam Date Time Procedure Performing Provider Status 07/08/20 9:35 AM XR Abdomen 1 View Kenneth Rapp; Final Notes: (XR Abdomen 1 View) Reason For Exam: Increasing abdominal distention XR Abdomen 1 View EXAMINATION: XR Abdomen 1 View CLINICAL HISTORY: Increasing abdominal distention Additional history: Cecal volvulus status post [id number] ileocectomy with stapled krpc-kc-cyvf anastomosis. COMPARISON: Multiple priors including abdominal radiograph 07/04/2020 FINDINGS: 3 AP supine views of the abdomen. Unchanged midline skin brooke. Right upper quadrant surgical clips. Left-sided drain courses across the pelvis, terminates in the right lower quadrant. L4-S1 spinalfusion with unchanged appearance of hardware. Unchanged appearance of bilateral total hip arthroplasties. Small amount of contrast seen throughout the rectum from prior study. Multiple loops of distended, air-filled small bowel in the left upper quadrant, measuring up to 4.7 cm. There is air within the colon. Significant heterotopic ossification seen adjacent to both hip arthroplasties. Visualized lungbases reveal bibasilar atelectasis. IMPRESSION: Multiple loops of dilated small bowel in the left hemiabdomen concerning for developing versus partial small bowel obstruction. Dr. Flora Hancock is the dictating resident. Finalized reports status indicates that the attending has reviewed the images and report, and agrees with the interpretation. Preliminary report status should be regarded as NOT interpreted by the attending radiologist. Final Dictated by:MD Hancock Danielle Dictated DT/TM:07/08/2020 10:13 Resident:MD Hancock Danielle Signed by:MD Hwang Timothy J Signed (Electronic Signature):07/08/2020 10:12 * Exam Date Time Procedure Performing Provider Status 07/04/20 7:16 AM XR Abdomen 1 View Katy Freire; Rasta nal Notes: (XR Abdomen 1 View) Reason For Exam: assess NGT position XR Abdomen 1 View EXAMINATION: XR Abdomen 1 View CLINICAL HISTORY: assess NGT position COMPARISON: Comparison multiple priors most recent from 07/01/2020. FINDINGS: Enteric tube tip terminates in the fundus of the stomach. Side-port is just below the level of the EG junction. Skin brooke are present . Partially visualized posterior linda and pedicle screw spinal fusion. Contrast from prior examinations seen throughout the colon. Few air-filled nondistended loops of small bowel. Study is not optimized to evaluate for pneumoperitoneum. Multilevel degenerative change in the thoracolumbar spine. Streaky opacity at the left lung base, likely atelectasis. IMPRESSION: Enteric tube tip terminates in the undersurface of the stomach. Side-port is just below the level the EG junction. Final Dictated by:MD Villela Jacob A Dictated DT/TM:07/04/2020 9:18 Signed by:MD Villela Jacob A Signed (Electronic Signature):07/04/2020 9:17 a * Exam Date Time Procedure Performing Provider Status 07/03/20 3:36 PM IR Tunneled Infusion Catheter Placement Kecia Broussard; Final Notes: (IR Tunneled Infusion Catheter Placement) Reason For Exam: double lumen Tunneled line catheter insertion for nutrition IR Tunneled Infusion Catheter Placement PROCEDURES: Moderate Sedation, Physician Supervised Tunneled Infusion Catheter Placement, Double Lumen Ultrasound Guidance for Access HISTORY: 75-year-old female with bowel obstruction INDICATIONS: IV Access for Nutritional Support PHYSICIANS: MD Epi Cruz MD SEDATION: The risks and benefits of moderate sedation were discussed with the patient as part of the procedural informed consent process. Physician supervised intra- procedure moderate sedation was performed for 45 minutes using a trained independent observer who monitored the patient's level of sedation and p hysiologic status throughout the procedure. Pre-procedure and post-procedure sedation assessments were performed in accordance with institutional sedation policy and are documented separately in the medical record. MEDICATIONS: Fentanyl 100 mcg Midazolam 2 mg CONTRAST: None. DOSIMETRY: Fluoroscopy Time: 2.20 min Cumulative Dose: 63 mGy MEASUREMENTS: None. IMPLANTED DEVICES: Bard Access DUAL LUMEN 9.5FR POWERHICKMAN (Reference # [id number] Lot [id number] SPECIMENS: None. EST. BLOOD LOSS: None. COMPLICATIONS: None. SUPPORTING DOCUMENTATION: Pre-Procedure Verification (Physician/Provider) [X]: Patient Name and Verified Against Patient ID Band [X]: Written Consent Verified (Patient, Procedure, Site/Side) [ ]: Site Marking Verified (keep unchecked if not applicable) [X]: H and P /Attestation Verified Documented 07/03/2020 at 14:45:27 By Chaya Gallegos MD Pre-Procedure Verification (Nurse/Technologist) [X]: Patient Name and Verified Against Patient ID Band [X]: Written Consent Verified (Patient, Procedure, Site/Side) [ ]: Site Marking Verified (keep unchecked if not applicable) [X]: H and P /Attestation Verified Documented 07/03/2020 at 14:58:03 By AMARIS Zuleta Time Out [X]: Patient Identified by Name and [X]: Written Consent Verified (Patient,Procedure, Site/Side) [X]: Patient Positioned Correctly [X]: Patient Records Available (Order, Images) [X]: Anticipated Procedure Equipment / Devices Available [ ]: Site / Side Marking Completed (keep unchecked if not applicable) [ ]: Preprocedure Medications Administered (Antibiotics,Premedications, or n/a) [X]: All team members are present and are in agreement with Time Out (not documented prior to 10/03/2017). Documented 07/03/2020 at 15:16:13 By Dominique Rodriguez RN Physician Post Procedure Sign Out [X]: Diagnosis Confirmed [X]: Performed Procedure Confirmed [ ]: Specimen Identification Confirmed [X]: Patient Recovery / Post Procedure Care Concerns Discussed Documented 07/03/2020 at 15:43:55 By Ky Marshall MD TECHNIQUE: Preprocedure evaluation of potential venous access sites in the neck and chest was performed using a hand held ultrasound device. Central venous access device selection was made after review of the patient's clinical history and with clarification from the patient's primary service as needed. Following informed consent, and verification of the correct patient identity and planned procedure, the right neck and chest was prepped and draped using sterile technique. Puncture of the rightinternal jugular vein was performed using real time ultrasound guidance and a 4FR Micropuncture Setafter local anesthesia was achieved using 2% Lidocaine. A static image of the patent vein at the site of access was captured and sent to PACS. A subcutaneous tunnel was then created in the right anterior chest using a combination of blunt and sharp dissection after local anesthesia was achieved using 2% Lidocaine. The preflushed catheter was introduced through the tunnel and placed intravenously through a peel-away sheath. The tip was positioned in the upper right atrium under fluoroscopic guidance. Following placement, the catheter flushed freely and the catheter course was normal fluoroscopically. No ectopy was noted. The catheter was sutured to the skin using 2-0 Ethilon and a single stitch was placed at the venipuncture site using 4-0 vicryl. The catheter was flushed with saline. A timothy rile dressing was placed at the catheter exit site. INTERPRETATION / IMPRESSION: 1. Successful placement of a right internal jugular vein 9.5Fr dual lumen PowerHickman catheter (trimmed to length). 2. The catheter may be used immediately. 3. Sutures can be removed in 3-4 weeks if indicated. Final Dictated by:MD Marshall Jeffrey C Dictated DT/TM:07/03/2020 3:47 Signed by:MD Marshall Jeffrey C Signed (Electronic Signature):07/03/2020 3:46 p * Exam Date Time Procedure Performing Provider Status 07/01/20 6:33 AM XR Abdomen 1 View Katty Aguilera; Final Notes: (XR Abdomen 1 View) Reason For Exam: monitor ileus/contrast progression XR Abdomen 1 View EXAMINATION: XR Abdomen 1 View CLINICAL HISTORY: monitor ileus/contrast progression COMPARISON: Prior study dated 06/30/2020. FINDINGS: AP supine view of the abdomen. Enteric tube in the body of the stomach. Unchanged dilated loops of small bowel in the left upper quadrant. Interval progression of contrast through the large bowel into the rectum. Bilateral hip arthroplasties and spinal fusion hardware are unchanged. Lung bases are clear. IMPRESSION: 1. Progression of contrast into the rectum. 2. Unchanged dilated bowel in the left upper quadrant. Dr. Junaid Puente is the dictating resident. Finalized reports status indicates that the attending has reviewed the images and report, and agrees with the interpretation. Preliminary report statusshould be regarded as NOT interpreted by the attending radiologist. Final Dictated by:MD Puente Stephen Dictated DT/TM:07/01/2020 8:10 Resident:MD Puente Stephen Signed by:MD Gramajo Cristy N Signed (Electronic Signature):07/01/2020 8:09 a * Exam Date Time Procedure Performing Provider Status 06/30/20 9:07 PM XR Abdomen 1 View Araseli Mary Beth A; F inal Notes: (XR Abdomen 1 View) Reason For Exam: monitor contrast progression and ileus XR Abdomen 1 View EXAMINATION: XR Abdomen 1 View CLINICAL HISTORY: Please obtain repeat KUB at 21:00 tonight, despite KUB done at 17:00. monitor contrast progression and ileus COMPARISON: CT and radiograph from June 30, 2020 and abdomen radiograph from June 27, 2020 FINDINGS: AP portable supine abdominal radiograph shows multiple dilated small bowel loops in the central andleft abdomen measuring up to 4.9 cm in diameter, similar to prior studies. Interval progression of contrast now a colonic loops in the periphery the abdomen. Small amount of air in the rectum. Orogastric tube courses into the stomach.. No large volume pneumoperitoneum noting limitations of AP supine technique. Lower lumbar hardware and bilateral total hip arthroplasties are unchanged. The lung bases are clear. IMPRESSION: Dilated small bowel loops, unchanged. Interval progression of contrast. Final Dictated by:MD Gramajo Cristy N Dictated DT/TM:06/30/2020 9:15 Signed by:MD Gramajo Cristy N Signed (Electronic Signature):06/30/2020 9:14 p * Exam Date Time Procedure Performing Provider Status 06/30/20 4:58 PM XR Abdomen 1 View Rea Manley B; Final Notes: (XR Abdomen 1 View) Reason For Exam: check for ileus XR Abdomen 1 View EXAMINATION: XR Abdomen 1 View CLINICAL HISTORY: check for ileus COMPARISON: CT from June 30, 2020 and abdomen radiograph from June 27, 2020 FINDINGS: AP portable supine abdominal radiograph shows multiple dilated small bowel loops in the central andleft abdomen measuring up to 4.9 cm in diameter, similar to prior studies. Orogastric tube courses into the stomach. Generalized paucity of bowel gas within the colon and rectum. No large volume pneumoperitoneum noting limitations of AP supine technique. Lower lumbar hardware and bilateral total hip arthroplasties are unchanged. The lung bases are clear. IMPRESSION: Dilated small bowel loops, unchanged from 06/27/2020. Final Dictated by:MD Gramajo Cristy N Dictated DT/TM:06/30/2020 5:23 Signed by:MD Gramajo Cristy N Signed (Electronic Signature):06/30/2020 5:21 p * Exam Date Time Procedure Performing Provider Status 06/30/20 2:[address] Abdomen and Pelvis w/o Contrast Will Isaura reyes; Final Notes: (CT Abdomen and Pelvis w/o Contrast) Reason For Exam: s/p ileocecetomy w/ continued distention and emesis. assess for intra-abdominal process or obstruction. PO contrast down NGT. IV contrast to assess possible intra- abdominal source of ileus. CT Abdomen and Pelvis w/o Contrast EXAMINATION: CT Abdomen and Pelvis w/o Contrast CLINICAL HISTORY: PO contrast down NGT. s/p ileocecetomy w/ continued distention and emesis. assess for intra-abdominal process or obstruction. PO contrast down NGT. IV contrast to assess possible intra-abdominal source of ileus. COMPARISON: CT 06/24/2020, abdominal radiograph . TECHNIQUE: CT of the abdomen and pelvis was performed following the administration of enteric contrast via thepatient's nasogastric tube. CONTRAST: Contrast Type (Oral): E-Z CAT DOSE: Total Reported Dose Length Product (DLP) = 721.97 mGy.cm FINDINGS: Additional history from the patient's electronic chart is that of ileocecal ileocecectomyand umbilical hernia repair on 06/18/2020 for cecal volvulus and ascending colonic lipoma, umbilicalhernia. Lower chest: Minimal right basilar atelectasis. ABDOMEN Liver, Gallbladder \T\ bile ducts: Absent gallbladder. Otherwise unremarkable. Pancreas: Normal. Spleen: Normal. Adrenals: Normal. Kidneys, collecting system and ureters: Normal. Retroperitoneum, lymph nodes, and vessels: Evaluation for vascular patency is precluded by the absence of intravenous contrast. No lymphadenopathy. Bowel \T\ Mesentery: Enteric contrast is identified within loops of dilated small bowel without a focal, narrow zone of transition to suggest complete obstruction. There is distal tapered narrowing of the small bowel. Expected postoperative changes from ileocecectomy and anastomosis. Minimal adjacent inflammatory stranding. No identifiable enteric contrast leak. Contrast can be seen extending into the colon. No pneumoperitoneum. PELVIS Bladder: Normal, though difficult to evaluate given beam hardening artifact from hip arthroplasties. Reproductive organs: Absent uterus. Extraperitoneal, lymph nodes, vessels: Free fluid within the dependent pelvis which is likely on a postoperative basis but difficult to characterize given significant beam hardening artifact. Osseous and body wall: There are postoperative changes from bilateral hip arthroplasty with resultant beam hardening artifact that limits evaluation of the pelvis. Postoperative changes from bilateral posterior spinal fusion extending from L4-S1 with resultant beam hardening artifact but no findings of hardware loosening or fracture. IMPRESSION: 1. No focal transition point identified to suggest complete small bowel obstruction. There are loops of distended small bowel in a pattern most compatible with ileus, with transition point in the distal small bowel. 2. Postoperative changes from ileocecectomy. 3. Simple free fluid within the dependent pelvis, likely on a postoperative basis. [place] 112: This study does not meet the requirements of [place] Act 112. Final Dictated by:MD Madera James H Dictated DT/TM:06/30/2020 3:17 Signed by:MD Madera James H Signed (Electronic Signature):06/30/2020 3:16 p * Exam Date Time Procedure Performing Provider Status 06/29/20 11:34 PM XR Abdomen 1 View Katty Aguilera; Final Notes: (XR Abdomen 1 View) Reason For Exam: NG tube placed XR Abdomen 1 View EXAMINATION: XR Abdomen 1 View CLINICAL HISTORY: NG tube placed COMPARISON: Study dated 06/27/2020. FINDINGS: AP view of the abdomen. NG tube tip and side port in the body of the stomach. Distended loops of small bowel in similar configuration to prior study. Visualized lung bases are unchanged. No acute osseous abnormality. IMPRESSION: NG tube tip and side port in the body of stomach. Dr. Junaid Puente is the dictating resident. Finalized reports status indicates that the attending has reviewed the images and report, and agrees with the interpretation. Preliminary report statusshould be regarded as NOT interpreted by the attending radiologist. Final Dictated by:MD Puente Stephen Dictated DT/TM:06/30/2020 7:32 Resident:MD Puente Stephen Signed by:MD Gramajo Cristy N Signed (Electronic Signature):06/30/2020 7:31 a * Exam Date Time Procedure Performing Provider Status 06/27/20 7:09 PM XR Abdomen 1 View Rosy Cole; Estefania case Notes: (XR Abdomen 1 View) Reason For Exam: emesis, distention XR Abdomen 1 View EXAMINATION: XR Abdomen 1 View CLINICAL HISTORY: emesis, distention COMPARISON: Multiple prior abdominal radiographs, most recently from 12 hours prior. FINDINGS: Supine AP views of the abdomen. Postsurgical changes of bilateral total hip arthroplasty, lower lumbar spinal fusion, and cholecystectomy. Gaseous distention of multiple loops of small bowel, mildly progressed from 12 hours prior. No pneumatosis. No large pneumoperitoneum, given the limitations of a supine view. Bones are unchanged. Visualized lung bases are clear. IMPRESSION: Gaseous distention of multiple loops of small bowel, progressed from 12 hours prior, consistent with adynamic ileus. Dr. Kaila Peters is the dictating resident. Finalized reports status indicates that the attending has reviewed the images and report, and agrees with the interpretation. Preliminary report status should be regarded as NOT interpreted by the attending radiologist. Final Dictated by:DO Peters Kristin Dictated DT/TM:06/27/2020 7:53 Resident:DO Peters Kristin Signed by:MD Badillo Nhien T Signed (Electronic Signature):06/27/2020 7:52 p * Exam Date Time Procedure Performing Provider Status 06/27/20 7:42 AM XR Abdomen 1 View Shalini Martinez; Final Notes: (XR Abdomen 1 View) Reason For Exam: distention, tympanic, resolving ileus XR Abdomen 1 View EXAMINATION: XR Abdomen 1 View CLINICAL HISTORY: distention, tympanic, resolving ileus COMPARISON: Radiograph of the abdomen performed 06/22/2020 FINDINGS: AP view of the abdomen. Interval removal of a gastric tube. Gaseous distention of multiple small and large bowel loops not significant change from radiograph performed 06/22/2020. No focal transition point. Air is seen in the rectum. The lung bases are clear. Cholecystectomy clips. Postoperative changes in the hips and lower lumbar spine. IMPRESSION: 1. Interval removal of a gastric tube. 2. Findings of adynamic ileus without significant change from prior radiograph performed 06/22/2020. Dr. Willie Olmstead is the dictating resident. Finalized reports status indicates that the attendinghas reviewed the images and report, and agrees with the interpretation. Preliminary report status should be regarded as NOT interpreted by the attending radiologist. Attending addendum: Nonspecific bowel gas pattern with passage of the oral contrast from 06/24/2020. Final Dictated by:DO Olmstead Anil Dictated DT/TM:06/27/2020 9:21 Resident:DO Olmstead Anil Signed by:MD Bib, German Naranjo Signed (Electronic Signature):06/27/2020 9:20 a Vital Signs Most recent to oldest [Reference Range]: 1 2 3 Height 180 cm (06/17/20 3:39 PM) Patient Weight 106.75 kg (07/09/20 5:06 AM) 104.20 kg (07/07/20 4:27 AM) 104.65 kg (07/05/20 5:07 AM) Temperature [36.5-38 DegC] 36.5 DegC (07/10/20 12:01 PM) 36 DegC *LOW* (07/10/20 3:54 AM) 36.7 DegC (07/09/20 11:33 PM) Heart Rate 62 (07/10/20 12:01 PM) 68 (07/10/20 8:47 AM) 56 (07/10/20 3:59 AM) Respiratory Rate 16 br/min (07/10/20 12:01 PM) 18 br/min (07/10/20 8:47 AM) 16 br/min (07/10/20 3:54 AM) Blood Pressure 108/68mmHg (07/10/20 12:01 PM) 144/66mmHg (07/10/20 8:47 AM) 126/69mmHg (07/10/20 3:54 AM) Mean Blood Pressure 79 mmHg (07/09/20 11:33 PM) 74 mmHg (07/09/20 8:25 PM) 82 mmHg (07/09/20 6:40 PM) Cuff Pulse Pressure 40 mmHg (07/10/20 12:01 PM) 78 mmHg (07/10/20 8:47 AM) 57 mmHg (07/10/20 3:54 AM) BP Location # 1 Right Arm (07/10/20 12:01 PM) Right Arm (07/10/20 8:47 AM) Right Arm (07/10/20 3:54 AM) Social History Social History Type Response Smoking Status Never smoked cigaret nannette Sex Female
--- OUTSIDE RECORDS SUMMARY | 2023-01-21 06:59 | External Medical Summary | Summary of Care ---
Author Name Unknown Organization [place] [address] Care Team Providers Care Ocean Freight Agent Name Role Phone John Melendez MD Primary Care Provider [phone] Reason for Visit * Reason Comments Rheum Follow Up follow up Encounter Details Date Type Department Care Team Description 01/29/2021 Office Visit Rheumatology [place] [address] [facility] [place] [address] Jez Sharpe MD [address] [place] [address] [phone] GENERAL OSTEOARTHROSIS*; CKD stage 4 secondary to [...] as of this encounter (statuses as of 01/29/2021) Medications Medication Sig Dispensed Refills Start Date [...] Active Ca & Phos-Vit D-Mag (POSTURE-D CALCIUM/MAGNESIUM) [phone] TABS Take by mouth. 1 daily 0 [...] TO BREAKFAST AND DINNER 0 12/04/2020 Active pantoprazole (PROTONIX) 40 MG Pack Take 40 mg by mouth daily. 0 01/29/2021 Discontinue d(Medicatio n List Clean Up) dicyclomine (BENTYL) 20 MG Tablet 1 three times daily as needed 0 08/26/2018 01/29/2021 Discontinue d(Medicatio n List Clean Up) RA SENNA 8.6 MG Tablet As needed 0 05/30/2019 01/29/2021 Discontinue d(Medicatio n List Clean Up) documented as of this encounter (statuses as of 01/29/2021) Active Problems Problem Noted Date CKD stage 4 secondary to hypertension Encounter for examination fo r normal comparison and control in clinical research program 09/03/2017 Overview: DO NOT DELETE - [facility] DETECT Study: Project # [id number], Private Detective: Aubrey Sierra, MS, MPH. SUMMARY: Goal: Establish [...] contact study staff at ; after hours Private Detective via the [facility] profile saw setup operator . - Please contact study team before resolving/deleting from patients problem list. Study phone number: [phone]. Diagnosis changed due to Research Module. Go to Snapshot for study details. Hypothyroidism 02/24/2007 Psoriatic arthropathy 04/06/2003 Other psoriasis 12/26/2002 HTN, goal below 140/90 12/26/2002 GERD (gastroesophageal reflux disease) 0 12/26/2002 GENERAL OSTEOARTHROSIS 12/26/2002 documented as of this encounter (statuses as of 01/29/2021) Resolved Problems Problem Noted Date Resolved Date Encounter for examination fo r normal comparison and control in clinical research program 09/03/2017 12/26/2019 Overview: DO NOT DELETE [facility] DETECT Study: Project # [id number], Private Detective: Antoni Ford, PhD. SUMMARY: Goal: Establish test [...] contact study staff at ; after hours Private Detective via the [facility] profile saw setup operator . Please contact study team before resolving/deleting from patients problem list. Study phone number: [phone]. Diagnosis changed due to Research Module. Go to Snapshot for study details. KIDNEY DZ,CHRONIC (GFR 30-59) STAGE III 12/14/19 10 09/22/2018 Overview: Per CKD Protocol, #1 documented as of this encounter (statuses as of 01/29/2021) Immunizations Name Administration Dates Next Due COVID-19 mRNA, LNP-s, No Pre serve, 2-Dose Series (Moderna) 08/31/2020,08/03/2020 DT - Diptheria/Tetanus (PEDS) 12/12/2009 H1N1 2009 [...] Sign Reading Time Taken Comments Blood Pressure 148/92 01/29/2021 10:54 AM EDT Pulse - - Temperature 36.4 C (97.5 F) 01/29/2021 10:54 AM E DT Respiratory Rate - - Oxygen Saturation - - Inhaled Oxygen Concentration - - Weight 107 kg (235 lb 14.4 oz) 01/29/2021 10:54 AM EDT Height - - Body Mass Index 32.9 09/22/2018 8:17 AM EDT documented in this encounter Progress Notes * Jez Sharpe MD - 01/29/2021 10:49 AM EDT Subjective: Patient seen today for further follow up evaluation of osteoarthritis, history of psoriatic arthritis, psoriasis, chronic kidney disease stage 4. Since the last visit she reports that [facility] is going olesya dong injections to her SI joints 02/04. She always has pains in her hands - sometimes the braces helps and other times it does not help. She remains on 5mg of pred. Still has skin break outs on herhands and the clobetasol cream helps. Really campa snot get psoriasis anywhere else. The pain in her thumbs worsens with activities. She cannot walk 100 feet without pain in her low back/si area. Her pain can be from 0 to 10. She has to use a motorized cart at the store. She has not yet got her 3rd COVID vaccine. She does not need a refill for prednisone. Musculoskeletal ROS: . Abnormal: joint pain and back pain . Pain scale (0-10): 0 to 10 Other ROS: . Constitutional: normal . Head normal . Eyes: normal . Ears, nose, throat, mouth: normal . Cardiovascular: normal . Respiratory: dyspnea on exertion . Gastrointestinal: normal . Genitourinary: normal . Skin: normal All other ROS reviewed and negative Social History: Social History Tobacco Use Smoking status: Former Smoker Quit date: 07/15/1972 Years since quittin.5 Smokeless tobacco: Never Used Substance Use Topics Alcohol use: Yes Comment: rare Vaping/E-Cigarette Use Vaping/E-Cigarette Substances Vaping/E-Cigarette Devices Current Outpatient Medications Medication Sig Dispense Refill Betamethasone Sod Phos & Acet (BETAMETHASONE 6MG/ML 1ML - LIDOCAINE 0.5% 1ML) 1 syringe Inject 2 mL as directed once. Eliquis 5 MG Oral Tablet HYDROmorphone HCl 2 MG Oral Tablet (Dilaudid) 2 mg. levothyroxine (LEVOXYL) 100 MCG Tablet Take 1 Tab by mouth daily. RA ACETAMINOPHEN EX ST 500 MG Tablet As needed NIFEdipine ER Osmotic Release 30 MG TB24 1 daily benzonatate (TESSALON PERLES) 100 MG Capsule Take 100 mg by mouth 2 times a day as needed for Cough. Calcipotriene 0.005 % cream Apply topically to affected area 2 times a day. Apply to affected areas DULoxetine (CYMBALTA) 60 MG CPEP 1 daily levalbuterol (XOPENEX) 0.63 MG/3ML nebulizer solution Inhale 1 Ampule via nebulizer every 4 hours as needed for Wheezing. Azelastine HCl 0.1 % nasal spray Administer 2 Sprays into nostril daily. Cetirizine HCl (ZYRTEC ALLERGY) 10 MG Capsule Take 10 mg by mouth daily. Magnesium 400 MG Capsule Take 800 mg by mouth daily. nitroglycerin 0.4 MG/SPRAY spray As needed CLOBETASOL PROPIONATE 0.05 % EX CREA Apply to affected area twice daily as needed for flares 60GM 4 VITAMIN D 1000 UNIT PO CAPS 1 tab by mouth daily 0 Metoprolol Succinate ER 25 MG Oral Tablet Extended Release 24 Hour (toPROL XL) ACCU-CHEK GUIDE STRP RA SENNA 8.6 MG Tablet As needed Ca & Phos-Vit D-Mag (POSTURE-D CALCIUM/MAGNESIUM) [phone] TABS Take by mouth. 1 daily dicyclomine (BENTYL) 20 MG Tablet 1 three times daily as needed nitroglycerin (NITRO-DUR) 0.4 MG/HR patch Apply 12-14 hr then remove tacrolimus (PROTOPIC) 0.03 % OINT Apply topically to affected area 2 times a day. Apply to both hands triamcinolone acetonide (ARISTOCORT) 0.025 % cream Apply topically to affected area 2 times a day. Apply to hands pantoprazole (PROTONIX) 40 MG Pack Take 40 mg by mouth daily. Potassium Chloride Katherine ER 20 MEQ TBCR 1 twice daily PredniSONE (DELTASONE) 5 MG Tablet Take 1 Tab by mouth daily. 100 Tab 3 spironolactone (ALDACTONE) 25 MG Tablet 25 mg 2 times a day. daily FISH OIL 1000 MG PO CAPS one capsule twice daily Physical Exam: BP 148/92 | Temp 36.4 C (97.5 F) (Tympanic) | Wt 107 kg (235 lb 14.4 oz) | BMI 32.90 kg/m | BSA 2.32 m General: alert, healthy, no distress and well nourished Neck: supple, no adenopathy, thyroid normal size, non-tender, without nodularity Lymph: no palpable lymphadenopathy Heart: regular rate & rhythm and no gallops Lungs: clear to auscultation , no rales, wheezes or rhonchi Abdomen: abdomen soft, non-tender and normal bowel sounds Skin: skin color, texture, turgor are normal, dry skin noted both palms, no other patches of psoriasis Musculoskeletal Exam: Tenderness to both thumb bases and left 3rd PIP No swelling or synovitis noted Tenderness over bilateral SI joints Assessment: M15.9 GENERAL OSTEOARTHROSIS (primary encounter diagnosis) I12.9,N18.4 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) L40.8 Other psoriasis Continues to deal with general arthritis pains. Remains on prednisone 5 mg daily. No evidence for active psoriatic arthritis. Given her chronic prednisone use she can get a 3rd COVID vaccine at this point. Plan: 1. Continue care with Orthopedics 2. Continue prednisone 5 mg daily 3. Recommend she gets the 3rd dose of the COVID vaccine 4. Return to clinic in 6 months Jez Sharpe MD Department of Rheumatology documented in this encounter Nursing Notes * Shalini Gillis LPN - 01/29/2021 10:54 AM EDT Chief Complaint Patient presents with Rheum Follow Up follow up documented in this encounter Plan of Treatment Upcoming Encounters Date Type Specialty Care Team Description 07/29/2021 Office Visit Rheumatology Jez Sharpe MD [address] [place] [address], [place] [address] [phone] Health Maintenance Due Date Last Done Comments CKD NEPHROLOGY EVAL USE SMARTSET 32472 1964 CKD PHOS USE SMARTSET 70429 1964 CKD PTH USE SMARTSET 37831 1964 CKD URINE PROTEIN/CREATININE RATION OR URINE MICROALBUMIN YEARLY USE SMARTSET 43411 1964 BREAST CANCER SCREENING DISCUSSION YEARLY AGES 40-75 1986 Zoster Vaccines (1 of 2) 1996 CKD CALCIUM USE SMARTSET 58543 01/16/2006 10/16/2005 Pneumococcal Vaccine: 65+ Years (3 [...] Tdap) 12/13/2019 12/12/2009 CKD GFR USE SMARTSET 94088 06/07/202012/05, 07/30/2015, 01/05/2015, Additional history exists CKD HGB USE SMARTSET 49386 06/07/202012/05, 07/30/2015, 01/05/2015, Additional history exists *BASIC METABOLIC PANEL (BMP) FOR HTN YEARLY 12/31/2020 Influenza Vaccine (FLU shot) (#1) 2021 02/22/2019, 03/05/2012, 06/08/2009, Additional history exists DIABETES SCREEN EVERY 3 YRS-AGE 45 AND ABOVE 12/05/2022 12/06/2019, 10/16/2005 COVID-19 Vaccine Completed 08/31/2020, 08/03/2020 MENINGOCOCCAL (MENACTRA/MENVEO) Aged Out No longer eligible based on patient's age to complete this topic documented as of this encounter Implants Implanted Type Area Head End Desizing Machine Operator Device Identifier Shelf Expiration Date Model / Serial / Lot Lens 17.0 Mx60 - [id number] - [id number] Implanted:Qty: 1 on 09/01/2017 by Vic Mckee MD at OR [facility] Right: Eye [employer] : SURGICAL 01/23/2020 MX60-17.0 / [id number] / [id number] Mx60 14.5 [employer]ista Implanted:Qty: 1 on 09/29/2017 by Vic Mckee MD at OR [facility] Left: Eye 01/23/2020 MX 60 14.5 / [id number] / [id number] documented as of this encounter Visit Diagnoses Diagnosis GENERAL OSTEOARTHROSIS- Primary Generalized osteoarthrosis, unspecified site 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) Other psoriasis documented in this encounter Advance Directives Documents on File Type Date Recorded Patient Data Review Specialist Expl 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
--- OUTSIDE RECORDS SUMMARY | 2023-01-21 06:59 | External Medical Summary | Continuity of Care Document ---
Author Name Unknown Organization [facility] [address] [facility] [address] [address] Care Team Providers Care Employment Recruiter Name Role Phone John Melendez Primary Care Physician [phone] Encounter [facility] [id number] Date(s): 08/07/20 - 08/07/20 [facility] [address] [facility] [address] [place] [phone] Encounter Diagnosis Cecal volvulus(Discharge Diagnosis) - 08/07/20 Discharge Disposition: Home or Self Care Attending Physician: MD Vasquez Jeffrey S Referring Physician: MD Melendez Frank Allergies, Adverse [...] days dissolve in water or juice, Pharmacy: [facility] Start Date: 07/10/20 Stop Date: 08/09/20 Status: Ordered clobetasol 0.05% topical cream Start: 12/29/18 13:08:00 EDT, 1 appl, topical, Daily Start Date: 12/29/18 Status: Ordered Dilaudid 2 mg oral tablet Start: 06/22/20 11:09:00 EST, 1 tab, PO, q4h, Disp# 24 tab, Refills: 0, PRN: as needed for pain, Pharmacy: [facility] Start Date: 06/22/20 Status: Ordered [...] 2, apply to skinfold areas, Pharmacy: [facility] Start Date: 03/14/15 Status: Ordered ocular [...] Start Date: 12/29/18 Status: Ordered Mental Status 08/07/20 Barriers to Learning one year None evide nt Mandatory Health Literacy Documentation Yes Health Literacy Communication Barriers N ever Primary Language Bengali Problem List Condition Effective Dates Status Health [...] Dates Health Status Cl inical Service Informant Cecal volvulus Discharge Diagnosis 08/07/20 Procedures Procedure Date Related Diagnosis Body Site [...] out of foot 3right foot fused 02/04 Social History Social History Type Response Smoking Status Never smoked cigaret nannette Sex Female
--- OUTSIDE RECORDS SUMMARY | 2023-01-21 06:59 | External Medical Summary | Continuity of Care Document ---
Author Name Unknown Organization [facility] Address [address] [place] [id number] Care Team Providers Care Paste Mixer Liquid Name Role Phone John Melendez Primary Care Physician [phone] Encounter [facility] [id number] Date(s): 07/24/20 - 07/24/[address] [address] Encounter Diagnosis Encounter for adjustment and management of vascular access device(Final) - Volvulus(Final) - Discharge Disposition: Home or Self Care Attending Physician: MD Ana, José Miguel Mason Referring Physician: MD Pedro, Ky Mckay Allergies, [...] days dissolve in water or juice, Pharmacy: [facility] Start Date: 07/10/20 Stop Date: 08/09/20 Status: Ordered clobetasol 0.05% topical cream Start: 12/29/18 13:08:00 EDT, 1 appl, topical, Daily Start Date: 12/29/18 Status: Ordered Dilaudid 2 mg oral tablet Start: 06/22/20 11:09:00 EST, 1 tab, PO, q4h, Disp# 24 tab, Refills: 0, PRN: as needed for pain, Pharmacy: [facility] Start Date: 06/22/20 Status: Ordered DULoxetine [...] Refills: 2, apply to skinfold areas, Pharmacy: [address] Start Date: 03/14/15 Status: Ordered ocular [...] Exam Date Time Procedure Performing Provider Status 07/24/20 12:59 PM IR Tunneled Catheter Removal Julio César, Viral [place]; Final Notes: (IR Tunneled Catheter Removal) Reason For Exam: Removal of tunneled line IR Tunneled Catheter Removal EXAMINATION: IR Tunneled Catheter Removal CLINICAL HISTORY: K56.2: Volvulus; Removal of tunneled line PROCEDURES: Tunneled Infusion Catheter Removal HISTORY: 75-year-old female with a history of Bowel obstruction;Volvulus;Presence of other specified devices INDICATIONS: Catheter No Longer Needed PHYSICIANS: MD Didi Garcia PA-C SEDATION: None. MEDICATIONS: None. CONTRAST: None. DOSIMETRY: No fluoroscopy used. SPECIMENS: None. EST. BLOOD LOSS: None. COMPLICATIONS: None. SUPPORTING DOCUMENTATION: Pre-Procedure Verification (Nurse/Technologist) [X]: Patient Name and Verified Against Patient ID Band [ ]: Written Consent Verified (Patient, Procedure, Site/Side) [ ]: Site Marking Verified (keep unchecked if not applicable) [ ]: H and P /Attestation Verified Documented 07/24/2020 at 12:10:21 By Didi Dhillon PA-C TECHNIQUE: Following discussion with the patient and verification of the correct patient identity and planned procedure, the right-sided chest tunneled infusion catheter was prepped and draped. Localanesthesia was not administered. The sutures were removed. The catheter was removed intact. The cuff was removed entirely. The catheter tip was not sent for culture. Direct pressure was applied to the venipuncture site and along the tunnel until hemostasis was achieved. A dry dressing was placed atthe catheter exit site. INTERPRETATION / IMPRESSION: Uneventful removal of right-sided tunneled infusion catheter as described above. Final Dictated by:MD Purcell Frank C Dictated DT/TM:07/24/2020 5:21 Signed by:MD Purcell Frank C Signed (Electronic Signature):07/24/2020 5:19 p Vital Signs Most recent to oldest [Reference Range]: 1 Temperature [36.5-38 DegC] 36.2 DegC *LOW* (07/24/20 12:06 PM) Heart Rate 58 (07/24/20 12:06 PM) Respiratory Rate 20 br/min (07/24/20 12:06 PM) Blood Pressure 135/70mmHg (07/24/20 12:06 PM) Mean Blood Pressure 87 mmHg (07/24/20 12:06 PM) Cuff Pulse Pressure 65 mmHg (07/24/20 12:06 PM) BP Location # 1 Left Arm, Non-invasive (07/24/20 12:06 PM) Social History Social History Type Response Smoking Status Never smoked cigaret nannette Sex Female
--- OUTSIDE RECORDS SUMMARY | 2023-01-21 06:59 | External Medical Summary | Summary of Care ---
Author Name Unknown Organization [place] [address] Care Team Providers Care Conversion Worker Name Role Phone John Melendez MD Primary Care Provider Reason for Referral * Evaluate & Treat - Unlimited Visits (Within 10 days (routine)) - Pending Review Specialty Diagnoses / Procedures Referred By Contarin t Referred To Contact Rheumatology Diagnoses Arthropathic psoriasis, unspecified (HCC) John Melendez MD [address] [address] Referral ID Status Reason Start Date Expiration Date Visits Requested Visits Authorized [id number] Pending Review Specialty Services Required 2 [phone] Question Answer Referral Priority Within 10 days (routine) Reason for referral: Other Conditions Comments Notes posted. Encounter Details Date Type Department Care Team Description 05/03/2022 Orders Only Access [facility], [address] Ext *DO NOT REMOVE THIS DEPARTMENT* SILVANA MAYEN [id number] Request, External Referral Arthropathic psoriasis, unspecified (HCC)* Allergies Active Allergy Reactions Severity Noted Date Comments Capsaicin 09/25/2021 Other reaction(s): Creatine elevation Nelson-2 Inhibitors Rash 03/30/2006 Cephalexin Rash 01/29/2021 Codeine High 12/26/2010 Throat swells Diclofenac 01/29/2021 Other reaction(s): Creatine elevation, raised enzymes Diclofenac Sodium 09/25/2021 Other reaction(s): Creatine elevation Iodinated Diagnostic Agents 01/30/20 21 Other reaction(s): [...] as of this encounter (statuses as of 05/03/2022) Medications Medication Sig Dispensed Refills Start Date [...] Active Ca & Phos-Vit D-Mag (POSTURE-D CALCIUM/MAGNESIUM) [phone] TABS Take by mouth. 1 daily 0 [...] as of this encounter (statuses as of 05/03/2022) Active Problems Problem Noted Date CKD stage 4 secondary to hypertension Hypothyroidism 02/24/2007 Psoriatic arthropathy 04/06/2003 Other psoriasis 12/26/2002 HTN, goal below 140/90 12/26/2002 GERD (gastroesophageal reflux disease) 0 12/26/2002 GENERAL OSTEOARTHROSIS 12/26/2002 documented as of this encounter (statuses as of 05/03/2022) Resolved Problems Problem Noted Date Resolved Date Encounter for examination fo r normal comparison and control in clinical research program 09/03/2017 12/26/2019 Overview: DO NOT DELETE [facility] DETECT Study: Project # [id number], Java Web Application Developer: Antoni Ford, PhD. SUMMARY: Goal: Establish test [...] contact study staff at ; after hours Java Web Application Developer via the [facility] assembly line robot operator . Please contact study team before resolving/deleting from patients problem list. Study phone number: [phone]. Diagnosis changed due to Research Module. Go to Snapshot for study details. Encounter for examination fo r normal comparison and control in clinical research program 09/03/2017 01/23/2022 Overview: DO NOT DELETE - [facility] DETECT Study: Project # [id number], Java Web Application Developer: Aubrey H. Sierra, MS, MPH. SUMMARY: Goal: Establish test [...] contact study staff at ; after hours Java Web Application Developer via the [facility] assembly line robot operator . - Please contact study team before resolving/deleting from patients problem list. Study phone number: [phone]. Diagnosis changed due to Research Module. Go to Snapshot for study details. KIDNEY DZ,CHRONIC (GFR 30-59) STAGE III 12/14/19 10 09/22/2018 Overview: Per CKD Protocol, #1 documented as of this encounter (statuses as of 05/03/2022) Immunizations Name Administration Dates Next Due COVID-19 [...] Cigarettes Q uit: 07/15/1972 Smokeless Tobacco: Never Alcohol Use Standard Drinks/Week Comments Yes 0 (1 standard drink = 0.6 oz pur e alcohol) rare Sex Assigned at Date Recorded Not on file Job Start Date Occupation Industry Not on file Not on file Not on file documented as of this encounter Plan of Treatment Scheduled Referrals Name Type Priority Associated Diagnoses Orde r Schedule RHEUMATOLOGY REFERRAL OP Referral Within 10 days (routine) Arthropathic psoriasis, unspecified (HCC) Ordered: 05/03/2022 Health Maintenance Due Date Last Done Comments Hepatitis B (1 of 3 - 3-dose series) 1945 Depression Screening, Annual for Pts 12 and Over 1958 Alb / Creat Ratio 1963 CKD NEPHROLOGY EVAL USE SMARTSET 84406 1964 CKD PHOS USE SMARTSET 86463 1964 CKD PTH USE SMARTSET 42897 1964 Hepatitis C Screening 1963 Zoster Vaccines (1 of 2) 1965 CKD CALCIUM USE SMARTSET 98512 01/16/2006 10/16/2005 Pneumococcal Vaccine: 65+ Years (3 - PCV) 06/02/2008 06/02/2007, 2002 TSH FOR THYROID MEDICATION MONITORING YEARLY 10/18/2011 10/17/2010, 01/02/2010, 09/06/2008, Additional history exists DTaP,Tdap,and Td Vaccines (2 - Tdap) 12/13/2019 12/12/2009 CKD HGB USE SMARTSET 65199 06/07/202012/05, 07/30/2015, 01/05/2015, Additional history exists GFR - Renal Function 06/07/2020 12/06/2019, 07/30/2015, 01/05/2015, Additional history exists COVID-19 Vaccine (4 - Booster for Moderna series) 03/31/2021 02/03/2021, 08/31/2020, 08/03/2020 Influenza Vaccine (FLU shot) (#1) 2022 02/22/2019, 03/05/2012, 06/08/2009, Additional history exists GARDASIL-HPV IMMUNIZATION SERIES Aged Out No longer eligible based on patient's age to complete this topic MENINGOCOCCAL (MENACTRA/MENVEO) Aged Out No longer eligible based on patient's age to complete this topic documented as of this encounter Medical Devices Implanted Type Area Radiation Oncology Manager Device Identifier Shelf Expiration Date Model / Serial / Lot Lens 17.0 Mx60 - [id number] - [id number] Implanted:Qty: 1 on 09/01/2017 by Vic Mckee MD at OR [facility] Right: Eye [employer] : SURGICAL 01/23/2020 MX60-17.0 / [id number] / [id number] Mx60 14.5 Envista Implanted:Qty: 1 on 09/29/2017 by Vic Mceke MD at OR [facility] Left: Eye 01/23/2020 MX 60 14.5 / [id number] / [id number] documented as of this encounter Visit Diagnoses Diagnosis Arthropathic psoriasis, unspecified (HCC)- Primary documented in this encounter Advance Directives Latest [...] and were consensually agreed upon. Care Teams Conversion Worker Relationship Specialty Start Date End Date John Melendez MD [address], [place] [address] PCP - General Internal Medicine 08/13/17 documented as of this encounter
--- OUTSIDE RECORDS SUMMARY | 2023-01-21 07:00 | External Medical Summary | Summary of Care ---
Author Name Unknown Organization [place] [address] Care Team Providers Care Flame Channeler Name Role Phone John Melendez MD Primary Care Provider [phone] Encounter Details Date Type Department Care Team Description 11/19/2018 Scan Encounter Unspecified Department <No scans attached> Allergies Active Allergy Reactions Severity Noted Date Comments Nelson-2 Inhibitors Rash 03/30/2006 Codeine High 12/26/2010 Throat swells Ivp Dye Hives Medium 12/26/2002 Morphine And Related High 03/16/2003 Swells throat Sulfa Antibiotics Rash 12/26/2002 Tetracycline Rash 12/26/2002 Tramadol Hcl 06/20/2009 Severe constipation Nsaids 03/19/2009 Elevated serum creatinine. documented as of this encounter (statuses as of 11/19/2018) Medications Medication Sig Dispensed Refills Start Date [...] 10 mg by mouth daily. 0 Active aspirin enteric coated 81 MG TBEC Take 81 mg by mouth daily. 0 Active pantoprazole (PROTONIX) 40 MG Pack Take 40 mg by mouth daily. 0 Active DULoxetine (CYMBALTA) 60 MG CPEP 1 daily 0 08/25/2018 Active nitroglycerin (NITRO-DUR) 0.4 MG/HR patch Apply 12-14 hr then remove 0 09/13/2018 Active levothyroxine (LEVOXYL) 75 MCG Tablet 1 daily 0 08/26/2018 Active dicyclomine (BENTYL) 20 MG Tablet 1 three times daily as needed 0 08/26/2018 Active Ca & Phos-Vit D-Mag (POSTURE-D CALCIUM/MAGNESIUM) [phone] TABS Take by mouth. 1 daily 0 Active folic acid (KP FOLIC ACID) 1 MG Tablet Take 1 mg by mouth daily. 0 Active Apremilast (OTEZLA) 30 MG TABS Take 30 mg by mouth. 1 daily 0 Active levalbuterol [...] day. Apply to affected areas 0 Active documented as of this encounter (statuses as of 11/19/2018) Active Problems Problem Noted Date CKD stage 4 secondary to hypertension DETECT Research Study*[id number] Overview: [facility] DETECT Study: Project # [id number], Agricultural Loan Officer: Antoni Ford, PhD. SUMMARY: Goal: Establish test [...] contact study staff at ; after hours Agricultural Loan Officer via the [facility] audit machine operator . Hypothyroidism 02/24/2007 Psoriatic arthropathy 04/06/2003 Other psoriasis 12/26/2002 HTN, goal below 140/90 12/26/2002 GERD (gastroesophageal reflux disease) 0 12/26/2002 GENERAL OSTEOARTHROSIS 12/26/2002 documented as of this encounter (statuses as of 11/19/2018) Resolved Problems Problem Noted Date Resolved Date KIDNEY DZ,CHRONIC (GFR 30-59) STAGE III 12/14/19 10 09/22/2018 Overview: Per CKD Protocol, #1 documented as of this encounter (statuses as of 11/19/2018) Immunizations Name Administration Dates Next Due DT - Diptheria/Tetanus (PEDS) 12/12/2009 H1N1 2009 Influenza, IM 06/08/2009 PPD 09/07/2008 Pneumococcal Polysaccharide PPV23 (Pneumovax) 06/02/2007,2002 Seasonal Influenza, Trivalen t, with Preserve, 3yr & Above, Split 03/05/2012,06/03/2009,04/03/2009,06/01,03/13/2007,03/30/2006 documented as of this encounter Social History Tobacco Use Types Packs/Day Years Used Date Former Smoker Quit: 07/15 Smokeless Tobacco: Never Used Alcohol Use Drinks/Week oz/Week Comments Yes rare Sex Assigned at Date Recorded Not on file Job Start Date Occupation Industry Not on file Not on file Not on file Travel History Travel Start Travel End documented as of this encounter Plan of Treatment Upcoming Encounters Date Type Specialty Care Team Description 01/11/2019 Office Visit Rheumatology Oppermann, Jez P, MD [address] [place] [address] [phone] Health Maintenance Due Date Last Done Comments CKD URINE PROTEIN/CREATININE RATION OR URINE MICROALBUMIN YEARLY USE SMARTSET 76330 1963 BREAST CANCER SCREENING DISCUSSION YEARLY AGES 40-75 1986 DIABETES SCREEN EVERY 3 YRS-AGE 45 AND ABOVE 10/16/2008 10/16/2005 PNEUMOCOCCAL ADULT 65 YRS AND OVER (1 of 2 - PCV13) 2011 06/02/2007, 2002 *BASIC METABOLIC PANEL (BMP) FOR HTN YEARLY 09/08/2017 *COLORECTAL CANCER SCREENING (COLONOSCOPY 10 YEARS; SIGMOIDOSCOPY 5 YEARS; COLOGUARD 3 YEARS; FOBT 1 YEAR),AGES 50-75 09/08/2017 *DEPRESSION SCREENING, ANNUAL FOR PTS 18 AND OVER 09/08/2017 *TSH FOR THYROID MEDICATION MONITORING YEARLY 09/08/2017 *URINE PROTEIN ONCE FOR HTN-DIPSTICK ACCEPTABLE 09/08/2017 Influenza Vaccine (FLU shot) (Season Ended) 2018 03/05/2012, 06/08/2009, 06/03/2009, Additional history exists DTaP,Tdap,and Td Vaccines (2 - Tdap) 12/13/2019 12/12/2009 MENINGOCOCCAL (MENACTRA) Aged Out No longer eligible based on patient's age to complete this topic documented as of this encounter Implants Implanted Type Area Television Inspector Device Identifier Shelf Expiration Date Model / Serial / Lot Lens 17.0 Mx60 - [id number] - [id number] Implanted:Qty: 1 on 09/01/2017 by Vic Mckee MD at OR [facility] Right: Eye [employer]OM[employer] : SURGICAL 01/23/2020 MX60-17.0 / [id number] / [id number] Mx60 14.5 Envista Implanted:Qty: 1 on 09/29/2017 by Vic Mckee MD at OR [facility] Left: Eye 01/23/2020 MX 60 14.5 / [id number] / [id number] documented as of this encounter Advance Directives Documents on File Type Date Recorded 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 Full Code 09/01/2017 10:19 AM 09/01/2017 5:23 PM This order reflects the patients wishes and were consensually agreed upon.
--- OUTSIDE RECORDS SUMMARY | 2023-01-21 07:00 | External Medical Summary | Summary of Care ---
Author Name Unknown Organization [place] [address] Care Team Providers Care Hardwood Floor Refinisher Name Role Phone John Melendez MD Primary Care Provider [phone] Reason for Visit * Reason Comments FYI Encounter Details Date Type Department Care Team Description 11/19/2018 Telephone Gastroenterology, [facility] [address] [facility] [place] [id number] Clemencia Lam, [address] [facility] [place] [id number] FYI Allergies Active Allergy Reactions Severity Noted Date [...] Active Ca & Phos-Vit D-Mag (POSTURE-D CALCIUM/MAGNESIUM) [phone] TABS Take by mouth. 1 daily 0 [...] stage 4 secondary to hypertension DETECT Research Study*[id number] Overview: [facility] DETECT Study: Project # [id number], Car Seat Upholsterer: Antoni Ford, PhD. SUMMARY: Goal: Establish test [...] contact study staff at ; after hours Car Seat Upholsterer via the [facility] chemical treatment operator . Hypothyroidism 02/24/2007 Psoriatic arthropathy 04/06/2003 [...] Travel End documented as of this encounter Miscellaneous Notes * Telephone Encounter - Alyssa Jain OSA - 11/19/2018 12:21 PM EDT Added to recall list for next year * Telephone Encounter - Clemencia Lam DO - 11/19/2018 12:13 PM EDT The patient underwent an upper endoscopy today and endoscopic ultrasound for evaluation of a submucosal mass. We will need to do a follow-up endoscopic ultrasound in 1 year. Please put the patient onour recall list for next October. documented in this encounter Plan of Treatment Upcoming Encounters Date Type Specialty Care Team Description 01/11/2019 Office Visit Rheumatology Jez Sharpe MD [address] [place] [address] [phone] Health Maintenance Due Date Last Done Comments CKD URINE PROTEIN/CREATININE RATION OR URINE MICROALBUMIN YEARLY USE SMARTSET 67738 1963 BREAST CANCER SCREENING DISCUSSION YEARLY AGES [...] of this encounter Implants Implanted Type Area Winder Tender Device Identifier Shelf Expiration Date Model / Serial / Lot Lens 17.0 Mx60 - [id number] - [id number] Implanted:Qty: 1 on 09/01/2017 by Vic Mckee MD at OR [facility] Right: Eye [employer]CH [employer] LOMB : SURGICAL 01/23/2020 MX60-17.0 / [id number] / [id number] Mx60 14.5 Envista Implanted:Qty: 1 on 09/29/2017 by Vic Mckee MD at OR [facility] Left: Eye 01/23/2020 MX 60 14.5 / [id number] / [id number] documented as of this encounter Advance Directives Documents on File Type Date Recorded Patient Vegetable Grader Expl 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
--- OUTSIDE RECORDS SUMMARY | 2023-01-21 07:00 | External Medical Summary | Summary of Care ---
Author Name Unknown Organization [place] [address] Care Team Providers Care Electron Beam Machine Welder Setter Name Role Phone John Melendez MD Primary Care Provider [phone] Reason for Visit * Reason Comments Rheum Follow Up Encounter Details Date Type Department Care Team Description 12/20/2019 Office Visit Rheumatology [address] [place] [address] Jez Sharpe MD [address] [place] [address] [id number] Psoriatic arthropathy (HCC)*; GENERAL OSTEOARTHROSIS; CKD stage [...] as of this encounter (statuses as of 12/20/2019) Medications Medication Sig Dispensed Refills Start Date [...] by mouth 2 times a day. 0 Active pantoprazole (PROTONIX) 40 MG Pack Take 40 mg by mouth daily. 0 Active DULoxetine (CYMBALTA) 60 MG CPEP 1 daily 0 08/25/2018 Active nitroglycerin (NITRO-DUR) 0.4 MG/HR patch Apply 12-14 hr then remove 0 09/13/2018 Active dicyclomine (BENTYL) 20 MG Tablet 1 three times daily as needed 0 08/26/2018 Active Ca & Phos-Vit D-Mag (POSTURE-D CALCIUM/MAGNESIUM) [phone] TABS Take by mouth. 1 daily 0 [...] MG Tablet As needed 0 05/30/2019 Active predniSONE (DELTASONE) 5 MG Tablet 15 mg daily for 4 days, 10 mg daily for 4 days, then resume home dosing of 5 mg daily 20 Tab 2 11/18/2019 Active levothyroxine (LEVOXYL) 100 MCG Tablet Take 1 Tab by mouth daily. 0 10/18/2019 Active levothyroxine (LEVOXYL) 75 MCG Tablet 1 daily 0 08/26/2018 12/20/2019 Discontinue d(Patient preference/ discontinua tion) folic acid ( FOLIC ACID) 1 MG Tablet Take 1 mg by mouth daily. 0 12/20/2019 Discontinue d(Patient preference/ discontinua tion) methylPREDNISolone (MEDROL DOSEPACK) 4 MG TBPK follow package directions 21 Tab 0 08/30/2019 12/20/2019 Discontinue d(Medicatio n List Clean Up) documented as of this encounter (statuses as of 12/20/2019) Active Problems Problem Noted Date CKD stage 4 secondary to hypertension DETECT Research Study*[id number] Overview: DO NOT DELETE [facility] DETECT Study: Project # [id number], Senior Php Web Developer: Antoni Ford, PhD. SUMMARY: Goal: Establish [...] contact study staff at ; after hours Senior Php Web Developer via the [facility] hospital soaking pit operator . Please contact study team before resolving/deleting from patients problem list. Study phone number: [phone]. Hypothyroidism 02/24/2007 Psoriatic arthropathy 04/06/2003 Other psoriasis 12/26/2002 HTN, goal below 140/90 12/26/2002 GERD (gastroesophageal reflux disease) 0 12/26/2002 GENERAL OSTEOARTHROSIS 12/26/2002 documented as of this encounter (statuses as of 12/20/2019) Resolved Problems Problem Noted Date Resolved Date KIDNEY DZ,CHRONIC (GFR 30-59) STAGE III 12/14/19 10 09/22/2018 Overview: Per CKD Protocol, #1 documented as of this encounter (statuses as of 12/20/2019) Immunizations Name Administration Dates Next Due DT [...] file Travel History Travel Start Travel End COVID-19 Exposure Response Date Recorded In the last month, have you been in contact with someone who was confirmed or suspected to have Coronavirus / COVID-19? No / Unsure 12/20/2019 9:46 AM EDT documented as of this encounter Last Filed Vital Signs Vital Sign Reading Time Taken Comments Blood Pressure - - Pulse - - Temperature 36.4 C (97.6 F) 12/20/2019 9:55 AM ED T Respiratory Rate 16 12/20/2019 9:55 AM EDT Oxygen Saturation - - Inhaled Oxygen Concentration - - Weight 98 kg (216 lb) 12/20/2019 9:55 AM EDT Height - - Body Mass Index 30.13 09/22/2018 8:17 AM EDT documented in this encounter Progress Notes * Jez Sharpe MD - 12/20/2019 10:03 AM EDT Subjective: Patient seen today for further follow up evaluation of osteoarthritis, psoriatic arthritis. Since the last visit she has remained on 5mg of pred and she reports that she still has a decent amount of joint pain. She reports pains in her hands, left hip, knees. She reports her spot facer mentioned trying medical marijuana given her pains and try and failed medications and allergies. I did accessed the outside medical chart for her recent labs. Her CBC was stable. Kidney function stable. She hasstage 3-4 kidney disease. She denies any joint swelling but continues to deal with pain. She is rating her pain around 5. She will be having left hip replacement January 05. She reports that her skin disease flared up after last surgery. Musculoskeletal ROS: . Abnormal: joint pain . Pain scale (0-10): 5 Other ROS: . Constitutional: normal . Cardiovascular: normal . Respiratory: normal . Gastrointestinal: normal . Genitourinary: normal . Skin: Psoriasis All other ros reviewed and negative Social History: Social History Tobacco Use Smoking status: Former Smoker Last attempt to quit: 07/15/1972 Years since quittin.4 Smokeless tobacco: Never Used Substance Use Topics Alcohol use: Yes Comment: rare Vaping/E-Cigarette Use Vaping/E-Cigarette Substances Vaping/E-Cigarette Devices Current Outpatient Medications Medication Sig Dispense Refill predniSONE (DELTASONE) 5 MG Tablet 15 mg daily for 4 days, 10 mg daily for 4 days, then resume home dosing of 5 mg daily 20 Tab 2 ACCU-CHEK GUIDE STRP RA ACETAMINOPHEN EX ST 500 MG Tablet As needed RA SENNA 8.6 MG Tablet As needed NIFEdipine ER Osmotic Release 30 MG TB24 1 daily benzonatate (TESSALON PERLES) 100 MG Capsule Take 100 mg by mouth 2 times a day as needed for Cough. Ca & Phos-Vit D-Mag (POSTURE-D CALCIUM/MAGNESIUM) [phone] TABS Take by mouth. 1 daily Calcipotriene [...] 2 times a day. Apply to hands aspirin enteric coated 81 MG TBEC Take 81 mg by mouth 2 times a day. pantoprazole (PROTONIX) 40 MG Pack Take 40 [...] MG PO CAPS one capsule twice daily VITAMIN D 1000 UNIT PO CAPS 1 tab by mouth daily 0 levothyroxine (LEVOXYL) 100 MCG Tablet Take 1 Tab by mouth daily. CLOBETASOL PROPIONATE 0.05 % EX CREA Apply to affected area twice daily as needed for flares 60GM 4 Physical Exam: Temp 97.6 | Resp 16 | Wt 216 lbs (97.977kg) | BMI 30.13 kg/m | BSA 2.22 m General: alert, healthy, no distress and well nourished Heart: regular rate & rhythm and no gallops Lungs: clear to auscultation , no rales, wheezes or rhonchi Abdomen: abdomen soft, non-tender and normal bowel sounds Extremities: no clubbing, no cyanosis Skin: No psoriasis noted on arms Musculoskeletal Exam: No synovitis or dactylitis noted Assessment: L40.50 Psoriatic arthropathy (HCC) (primary encounter diagnosis) M15.9 GENERAL OSTEOARTHROSIS I12.9,N18.4 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) Her psoriatic arthritis overall appears to be quiescent at this time. More dealing with chronic arthritis pains. She is going to look into medical marijuana as a potential treatment given all the other agents she has tried and failed. Will continue with low-dose prednisone Plan: 1. Continue pred 5mg daily 2. Await left hip replacement 3. Ok to try medical marijuana 4. RTC in 6 months Jez Sharpe MD Department of Rheumatology documented in this encounter Nursing Notes * Britney Akbar RN - 12/20/2019 9:55 AM EDT Pt here for follow up visit documented in this encounter Plan of Treatment Upcoming Encounters Date Type Specialty Care Team Description 06/21/2020 Office Visit Rheumatology Jez Sharpe MD [address] [place] [address] [phone] Health Maintenance Due Date Last Done Comments CKD NEPHROLOGY EVAL USE SMARTSET 30861 1963 CKD PHOS USE SMARTSET 78931 1964 CKD PTH USE SMARTSET 75582 1964 CKD URINE PROTEIN/CREATININE RATION OR URINE MICROALBUMIN YEARLY USE SMARTSET 00243 1963 BREAST CANCER SCREENING DISCUSSION YEARLY AGES 40-75 1986 Zoster Vaccines (1 of 2) 1996 CKD CALCIUM USE SMARTSET 09061 01/16/2006 10/16/2005 DIABETES SCREEN EVERY 3 YRS-AGE 45 AND ABOVE 10/16/2008 10/16/2005 Pneumococcal Vaccine: 65+ Years (1 of 2 - PCV13) 2011 06/02/2007, 2002 CKD GFR USE SMARTSET 86618 01/30/201607/29, 01/05/2015, 10/09/2014, Additional history exists CKD HGB USE SMARTSET 50303 01/30/201607/29, 01/05/2015, 10/09/2014, Additional history exists *BASIC METABOLIC PANEL (BMP) FOR HTN YEARLY 09/08/2017 *COLORECTAL CANCER SCREENING (COLONOSCOPY 10 YEARS; SIGMOIDOSCOPY 5 YEARS; COLOGUARD 3 YEARS; FOBT 1 YEAR),AGES 50-75 09/08/2017 *DEPRESSION SCREENING,ANNUAL FOR PTS 12 AND OVER 09/08/2017 *TSH FOR THYROID MEDICATION MONITORING YEARLY 09/08/2017 *URINE PROTEIN ONCE FOR HTN-DIPSTICK ACCEPTABLE 09/08/2017 DTaP,Tdap,and Td Vaccines (2 - Tdap) 12/13/2019 12/12/2009 Influenza Vaccine (FLU shot) (#1) 2020 02/22/2019, 03/05/2012, 06/08/2009, Additional history exists MENINGOCOCCAL (MENACTRA/MENVEO) Aged Out No longer eligible based on patient's age to complete this topic documented as of this encounter Implants Implanted Type Area It Consulting Manager Device Identifier Shelf Expiration Date Model / Serial / Lot Lens 17.0 Mx60 - [id number] - [id number] Implanted:Qty: 1 on 09/01/2017 by Vic Mckee MD at OR [facility] Right: Eye BAUSCH [employer] LOMB : SURGICAL 01/23/2020 MX60-17.0 / [id number] / [id number] Mx60 14.5 Envista Implanted:Qty: 1 on 09/29/2017 by Vic Mckee MD at OR [facility] Left: Eye 01/23/2020 MX 60 14.5 / [id number] / [id number] documented as of this encounter Visit Diagnoses Diagnosis Psoriatic arthropathy (HCC)- Primary Psoriatic arthropathy GENERAL OSTEOARTHROSIS Generalized osteoarthrosis, unspecified site 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) documented in this encounter Advance Directives Documents on File Type Date Recorded 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
--- OUTSIDE RECORDS SUMMARY | 2023-01-21 07:00 | External Medical Summary | Summary of Care ---
Author Name Unknown Organization [place] [address] Care Team Providers Care Crisis Manager Name Role Phone John Melendez MD Primary Care Provider [phone] Encounter Details Date Type Department Care Team Description 11/19/2018 Procedure Only Endoscopy, [facility] [address] [place] [address] Clemencia Lam, DO [address] [place], [place] [id number] Subepithelial gastric mass* Allergies Active Allergy Reactions Severity Noted Date Comments Nelson-2 Inhibitors Rash 03/30/2006 Codeine High 12/26/2010 Throat swells Ivp Dye Hives Medium 12/26/2002 Morphine And Related High 03/16/2003 Swells throat Sulfa Antibiotics Rash 12/26/2002 Tetracycline Rash 12/26/2002 Tramadol Hcl 06/20/2009 Severe constipation Nsaids 03/19/2009 Elevated serum creatinine. documented as of this encounter (statuses as of 11/22/2018) Medications Medication Sig Dispensed Refills Start Date [...] Active Ca & Phos-Vit D-Mag (POSTURE-D CALCIUM/MAGNESIUM) [phone] TABS Take by mouth. 1 daily 0 [...] as of this encounter (statuses as of 11/22/2018) Active Problems Problem Noted Date CKD stage 4 secondary to hypertension DETECT Research Study*[id number] Overview: [facility] DETECT Study: Project # [id number], Drafter Geological: Antoni Ford, PhD. SUMMARY: Goal: Establish test [...] contact study staff at ; after hours Drafter Geological via the [facility] anodic operator . Hypothyroidism 02/24/2007 Psoriatic arthropathy 04/06/2003 Other psoriasis 12/26/2002 HTN, goal below 140/90 12/26/2002 GERD (gastroesophageal reflux disease) 0 12/26/2002 GENERAL OSTEOARTHROSIS 12/26/2002 documented as of this encounter (statuses as of 11/22/2018) Resolved Problems Problem Noted Date Resolved Date KIDNEY DZ,CHRONIC (GFR 30-59) STAGE III 12/14/19 10 09/22/2018 Overview: Per CKD Protocol, #1 documented as of this encounter (statuses as of 11/22/2018) Immunizations Name Administration Dates Next Due DT [...] Office Visit Rheumatology Jez Sharpe MD [address] [place] [address] [phone] Health Maintenance Due Date Last Done Comments CKD URINE PROTEIN/CREATININE RATION OR URINE MICROALBUMIN YEARLY USE SMARTSET 70174 1963 BREAST CANCER SCREENING DISCUSSION YEARLY AGES [...] HTN-DIPSTICK ACCEPTABLE 09/08/2017 Influenza Vaccine (FLU shot) (#1) 2018 03/05/2012, 06/08/2009, 06/03/2009, Additional history exists DTaP,Tdap,and Td Vaccines (2 - Tdap) 12/13/2019 12/12/2009 MENINGOCOCCAL (MENACTRA) Aged Out No longer eligible based on patient's age to complete this topic documented as of this encounter Implants Implanted Type Area Electrical Designer Drafter Device Identifier Shelf Expiration Date Model / Serial / Lot Lens 17.0 Mx60 - [id number] - [id number] Implanted:Qty: 1 on 09/01/2017 by Vic Mckee MD at OR [facility] Right: Eye BAUSCH [employer] LOMB : SURGICAL 01/23/2020 MX60-17.0 / [id number] / [id number] Mx60 14.5 Envista Implanted:Qty: 1 on 09/29/2017 by Vic Mckee MD at [facility] Left: Eye 01/23/2020 MX 60 14.5 / [id number] / [id number] documented as of this encounter Procedures Procedure Name Priority Date/Time Associated Diagnosis Comments UPPER ENDOSCOPIC U/S 11/19/2018 UPPER GI ENDOSCOPY 11/19/2018 documented in this encounter Results * UPPER ENDOSCOPIC U/S (11/19/2018) Specimen Narrative Performed At * UPPER GI ENDOSCOPY (11/19/2018) Specimen Narrative Performed At documented in this encounter Visit Diagnoses Diagnosis Subepithelial gastric mass- Primary documented in this encounter Advance Directives Documents on File Type Date Recorded Patient Automotive Heavy Mechanic Expl 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
--- OUTSIDE RECORDS SUMMARY | 2023-01-21 07:00 | External Medical Summary | Summary of Care ---
Author Name Unknown Organization [place] [address] Care Team Providers Care Automatic Screwmaker Name Role Phone John Melendez MD Primary Care Provider [phone] Reason for Visit * Reason Comments FYI Encounter Details Date Type Department Care Team Description 11/19/2018 Telephone Gastroenterology, [facility] [address] [facility] [place] [id number] Clemencia Lam, [address] [facility] [place] [id number] FYI Allergies Active Allergy Reactions Severity Noted [...] Active Ca & Phos-Vit D-Mag (POSTURE-D CALCIUM/MAGNESIUM) [phone] TABS Take by mouth. 1 daily 0 [...] stage 4 secondary to hypertension DETECT Research Study*[id number] Overview: [facility] DETECT Study: Project # [id number], Edging Catcher: Antoni Ford, PhD. SUMMARY: Goal: Establish test [...] contact study staff at ; after hours Edging Catcher via the [facility] hospital bander operator . Hypothyroidism 02/24/2007 Psoriatic arthropathy 04/06/2003 [...] Office Visit Rheumatology Jez Sharpe MD [address] [place] [address] [phone] Health Maintenance Due Date Last Done Comments CKD URINE PROTEIN/CREATININE RATION OR URINE MICROALBUMIN YEARLY USE SMARTSET 26065 1963 BREAST CANCER SCREENING DISCUSSION YEARLY AGES [...] this encounter Implants Implanted Type Area Head Chef Device Identifier Shelf Expiration Date Model / Serial / Lot Lens 17.0 Mx60 - [id number] - [id number] Implanted:Qty: 1 on 09/01/2017 by Vic Mckee MD at OR [facility] Right: Eye BAUSCH [employer] LOMB : SURGICAL 01/23/2020 MX60-17.0 / [id number] / [id number] Mx60 14.5 Envista Implanted:Qty: 1 on 09/29/2017 by Vic Mckee MD at OR [facility] Left: Eye 01/23/2020 MX 60 14.5 / [id number] / [id number] documented as of this encounter Advance Directives Documents on File Type Date Recorded Patient Armhole Baster Hand Expl 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
--- OUTSIDE RECORDS SUMMARY | 2023-01-21 07:00 | External Medical Summary | Continuity of Care Document ---
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 Discharge Disposition: Home or Self Care Attending Physician: MD Vasquez Jeffrey S Allergies, Adverse [...] 2, apply to skinfold areas, Pharmacy: [facility] Start Date: 03/14/15 Status: Ordered pantoprazole [...] Start Date: 12/29/18 Status: Ordered Mental Status 06/12/20 Barriers to Learning one year None evide nt Mandatory Health Literacy Documentation Yes Health Literacy Communication Barriers N ever Primary Language Georgian Problem List Condition Effective Dates Status Health [...] mass index [BMI] 32.0-32.9, adult Discharge Diagnosis 06/12/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
--- OUTSIDE RECORDS SUMMARY | 2023-01-21 07:00 | External Medical Summary | Summary of Care ---
Author Name Unknown Organization [place] [address] Care Team Providers Care Volunteer Services Supervisor Name Role Phone John Melendez MD Primary Care Provider Encounter Details Date Type Department Care Team Description 12/29/2019 Orders Only Rheumatology [facility] [address] [facility] [place] [address] Jez Sharpe MD [address] [facility] [place] [address] [phone] Allergies Active Allergy Reactions Severity Noted Date Comments Nelson-2 Inhibitors Rash 03/30/2006 Codeine High 12/26/2010 Throat swells Ivp Dye Hives Medium 12/26/2002 Morphine And Related High 03/16/2003 Swells throat Sulfa Antibiotics Rash 12/26/2002 Tetracycline Rash 12/26/2002 Tramadol Hcl 06/20/2009 Severe constipation Nsaids 03/19/2009 Elevated serum creatinine. documented as of this encounter (statuses as of 12/29/2019) Medications Medication Sig Dispensed Refills Start Date [...] Active Ca & Phos-Vit D-Mag (POSTURE-D CALCIUM/MAGNESIUM) [phone] TABS Take by mouth. 1 daily 0 [...] GUIDE STRP 0 05/13/2019 Acti ve RA SENNA 8.6 MG Tablet As needed 0 05/30/2019 Ac tive RA ACETAMINOPHEN EX ST 500 MG Tablet As needed 0 05/30/2019 Active predniSONE (DELTASONE) 5 MG Tablet 15 mg daily for 4 days, 10 mg daily for 4 days, then resume home dosing of 5 mg daily 20 Tab 2 11/18/2019 Active levothyroxine (LEVOXYL) 100 MCG Tablet Take 1 Tab by mouth daily. 0 10/18/2019 Active documented as of this encounter (statuses as of 12/29/2019) Active Problems Problem Noted Date CKD stage 4 secondary to hypertension DETECT Research Study*[id number] Overview: DO NOT DELETE [facility] DETECT Study: Project # [id number], Ironer Machine: Aubrey Sierra, MS, MPH. SUMMARY: Goal: Establish [...] contact study staff at ; after hours Ironer Machine via the [facility] clam shovel operator . - Please contact study team before resolving/deleting from patients problem list. Study phone number: [phone]. Hypothyroidism 02/24/2007 Psoriatic arthropathy 04/06/2003 Other psoriasis 12/26/2002 HTN, goal below 140/90 12/26/2002 GERD (gastroesophageal reflux disease) 0 12/26/2002 GENERAL OSTEOARTHROSIS 12/26/2002 documented as of this encounter (statuses as of 12/29/2019) Resolved Problems Problem Noted Date Resolved Date DETECT Research Study*[id number] 09/03/2017 12/26/2019 Overview: DO NOT DELETE [facility] DETECT Study: Project # [id number], Ironer Machine: Antoni Ford, PhD. SUMMARY: Goal: Establish test [...] contact study staff at ; after hours Ironer Machine via the [facility] clam shovel operator . Please contact study team before resolving/deleting from patients problem list. Study phone number: [phone]. KIDNEY DZ,CHRONIC (GFR 30-59) STAGE III 12/14/19 10 09/22/2018 Overview: Per CKD Protocol, #1 documented as of this encounter (statuses as of 12/29/2019) Immunizations Name Administration Dates Next Due DT [...] AM EDT documented as of this encounter Plan of Treatment Upcoming Encounters Date Type Specialty Care Team Description 06/21/2020 Office Visit Rheumatology Jez Sharpe MD [address] [place] [address] [phone] Health Maintenance Due Date Last Done Comments CKD NEPHROLOGY EVAL USE SMARTSET 83357 1963 CKD PHOS USE SMARTSET 07274 1963 CKD PTH USE SMARTSET 23468 1963 CKD URINE PROTEIN/CREATININE RATION OR URINE MICROALBUMIN YEARLY USE SMARTSET 59611 1963 BREAST CANCER SCREENING DISCUSSION YEARLY AGES 40-75 1986 Zoster Vaccines (1 of 2) 1996 CKD CALCIUM USE SMARTSET 83518 01/16/2006 10/16/2005 DIABETES SCREEN EVERY 3 YRS-AGE 45 AND ABOVE 10/16/2008 10/16/2005 Pneumococcal Vaccine: 65+ Years (1 of 2 - PCV13) 2011 06/02/2007, 2002 CKD GFR USE SMARTSET 45898 01/30/201607/29, 01/05/2015, 10/09/2014, Additional history exists CKD HGB USE SMARTSET 81342 01/30/201607/29, 01/05/2015, 10/09/2014, Additional history exists *BASIC [...] of this encounter Implants Implanted Type Area Labor Relations Supervisor Device Identifier Shelf Expiration Date Model / Serial / Lot Lens 17.0 Mx60 - [id number] - [id number] Implanted:Qty: 1 on 09/01/2017 by Vic Mckee MD at OR [facility] Right: Eye BAUSCH & LOMB : SURGICAL 01/23/2020 MX60-17.0 / [id number] / [id number] Mx60 14.5 Envista Implanted:Qty: 1 on 09/29/2017 by Vic Mckee MD at [facility] Left: Eye 01/23/2020 MX 60 14.5 / [id number] / [id number] documented as of this encounter Procedures Procedure Name Priority Date/Time Associated Diagnosis Comments CHEMISTRY-OUTSIDE Routine 12/06/2019 documented in this encounter Results * CHEMISTRY-OUTSIDE (12/06/2019) CREATININE-OUTSIDE LAB 1.76(A) 0.6 - 1.2 MG/DL OUTSIDE LAB (SEE SCANNED REPORT) EGFR-OUTSIDE LAB 28.2 ML/MIN/1.73M2 OUTSIDE LA B (SEE SCANNED REPORT) POTASSIUM-OUTSIDE LAB 4.2 3.5 - 5.1 MMOL/L OUTSIDE LAB (SEE SCANNED REPORT) GLUCOSE-OUTSIDE LAB 87 70 - 99 MG/DL OUTSIDE LAB (SEE SCANNED REPORT) HOURS FASTING OUTSIDE LAB (S EE SCANNED REPORT) TRIGLYCERIDES-OUTSIDE LAB OUTSIDE LAB (SEE SCANNED REPORT) CHOLESTEROL-OUTSIDE LAB OUTSIDE LAB (SEE SCANNED REPORT) HDL-OUTSIDE LAB OUTSIDE LAB (SEE SCANNED REPORT) CHOL/HDL RATIO-OUTSIDE LAB OUTSIDE LAB (SEE SCANNED REPORT) LDL (CALCULATED)-OUTSIDE LAB OUTSIDE LAB (SEE SCANNED REPORT) LDL (DIRECT MEASURE)-OUTSIDE LAB OUTSIDE LAB (SEE SCANNED REPORT) HEMOGLOBIN, O5C-BGSIUFU LAB OUTSIDE LAB (SEE SCANNED REPORT) PHOSPHORUS-OUTSIDE LAB OUTSIDE LAB (SEE SCANNED REPORT) PTH-OUTSIDE LAB OUTSIDE LAB (SEE SCANNED REPORT) MICROALBUMIN RATIO-OUTSIDE LAB OUTSIDE LAB (SEE SCANNED REPORT) PROTEIN, UA-OUTSIDE LAB OUTSIDE LAB (SEE SCANNED REPORT) HEMOGLOBIN-OUTSIDE LAB 10.7(A) 12.0 - 16.0 G/DL OUTSIDE LAB (SEE SCANNED REPORT) CHEMISTRY COMMENT-OUTSIDE LAB Comment:SEE SCAN - CBC, BMP OUTSIDE LAB (SEE SCANNED REPORT) Specimen Narrative Performed At Performing Organization Address City/State/Zipcod e Phone Number OUTSIDE LAB (SEE SCANNED REPORT) documented in this encounter Advance Directives Documents on File Type Date Recorded Patient Multimedia Production Assistant Expl 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
--- OUTSIDE RECORDS SUMMARY | 2023-01-21 07:00 | External Medical Summary | Summary of Care ---
Author Name Unknown Organization [place] [address] Care Team Providers Care Terrapin Fisher Name Role Phone John Melendez MD Primary Care Provider [phone] Reason for Visit * Reason Comments Fax Encounter Details Date Type Department Care Team Description 11/26/2018 Telephone Gastroenterology, [facility] [address] [place] [address] Clemencia Lam, [address] [place] [address] [phone] Fax Allergies Active Allergy Reactions Severity Noted Date Comments Nelson-2 Inhibitors Rash 03/30/2006 Codeine High 12/26/2010 Throat swells Ivp Dye Hives Medium 12/26/2002 Morphine And Related High 03/16/2003 Swells throat Sulfa Antibiotics Rash 12/26/2002 Tetracycline Rash 12/26/2002 Tramadol Hcl 06/20/2009 Severe constipation Nsaids 03/19/2009 Elevated serum creatinine. documented as of this encounter (statuses as of 12/17/2018) Medications Medication Sig Dispensed Refills Start Date [...] Active Ca & Phos-Vit D-Mag (POSTURE-D CALCIUM/MAGNESIUM) [phone] TABS Take by mouth. 1 daily 0 [...] as of this encounter (statuses as of 12/17/2018) Active Problems Problem Noted Date CKD stage 4 secondary to hypertension DETECT Research Study*[id number] Overview: Walter Lebron DETECT Study: Project # [id number], Pricing Analyst: Antoni Ford, PhD. SUMMARY: Goal: Establish test [...] contact study staff at ; after hours Pricing Analyst via the [facility] hospital crimper operator . Hypothyroidism 02/24/2007 Psoriatic arthropathy 04/06/2003 Other psoriasis 12/26/2002 HTN, goal below 140/90 12/26/2002 GERD (gastroesophageal reflux disease) 0 12/26/2002 GENERAL OSTEOARTHROSIS 12/26/2002 documented as of this encounter (statuses as of 12/17/2018) Resolved Problems Problem Noted Date Resolved Date KIDNEY DZ,CHRONIC (GFR 30-59) STAGE III 12/14/19 10 09/22/2018 Overview: Per CKD Protocol, #1 documented as of this encounter (statuses as of 12/17/2018) Immunizations Name Administration Dates Next Due DT [...] Telephone Encounter - Alyssa Jain OSA - 12/03/2018 11:17 AM EDT Faxed information * Telephone Encounter - Gorge Majano OSA - 12/03/2018 10:32 AM EDT Jenae calling in from [facility] stating that she did not receive the fax. She is requesting to have the information faxed again to [phone]. Thank you. * Telephone Encounter - Alyssa Jain OSA - 12/02/2018 9:02 AM EDT Information faxed * Telephone Encounter - Messi Cardona OSA - 11/26/2018 4:12 PM EDT No office note from 11/17/2017? Guessing this was meant to say procedure from 11/17/2018. Pathology not back from procedure yet, will fax as soon as it is in Epic. * Telephone Encounter - Jennifer Rodriguez OSA - 11/26/2018 3:45 PM EDT The following fax request has been received: Name/Company of caller: Jenae [employer] [facility] Information requested to be faxed/received via fax: OV note from 11/17/17 Fax number: [phone] Attention to Name/Company: Jenae Was this information faxed previously?: If so, what date(s) was it faxed?: If so, what number was it faxed to?: Any additional information?: documented in this encounter Plan of Treatment Upcoming Encounters Date Type Specialty Care Team Description 12/21/2018 Office Visit Rheumatology Jez Sharpe MD [facility] [place] [address] Health Maintenance Due Date Last Done Comments CKD URINE PROTEIN/CREATININE RATION OR URINE MICROALBUMIN YEARLY USE SMARTSET 02211 1963 BREAST CANCER SCREENING DISCUSSION YEARLY AGES [...] of this encounter Implants Implanted Type Area Utility Aircrewman Device Identifier Shelf Expiration Date Model / Serial / Lot Lens 17.0 Mx60 - [id number] - [id number] Implanted:Qty: 1 on 09/01/2017 by Vic Mckee MD at OR [facility] Right: Eye BAUSCH [employer] LOMB : SURGICAL 01/23/2020 MX60-17.0 / [id number] / [id number] Mx60 14.5 Envista Implanted:Qty: 1 on 09/29/2017 by Vic Mckee MD at OR [facility] Left: Eye 01/23/2020 MX 60 14.5 / [id number] / [id number] documented as of this encounter Advance Directives Documents on File Type Date Recorded Patient Optimization Manager Expl 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
--- OUTSIDE RECORDS SUMMARY | 2023-01-21 07:00 | External Medical Summary | Summary of Care ---
Author Name Unknown Organization [place] [address] Care Team Providers Care Clinical Trials Data Coordinator Name Role Phone John Melendez MD Primary Care Provider [phone] Encounter Details Date Type Department Care Team Description 11/19/2018 Result Scan Gastroenterology, [facility] [address] [facility] [place] [address] Clemenica Lam, [address] [place] [address] <No scans attached> Allergies Active Allergy Reactions [...] Active Ca & Phos-Vit D-Mag (POSTURE-D CALCIUM/MAGNESIUM) [phone] TABS Take by mouth. 1 daily 0 [...] stage 4 secondary to hypertension DETECT Research Study*[id number] Overview: Walter Lebron DETECT Study: Project # [id number], Cement And Concrete Plant Worker: Antoni Ford, PhD. SUMMARY: Goal: Establish [...] contact study staff at ; after hours Cement And Concrete Plant Worker via the [facility] hospital floating operator . Hypothyroidism 02/24/2007 Psoriatic arthropathy 04/06/2003 [...] Office Visit Rheumatology Jez Sharpe MD [address] [place] [address] [phone] Health Maintenance Due Date Last Done Comments CKD URINE PROTEIN/CREATININE RATION OR URINE MICROALBUMIN YEARLY USE SMARTSET 46412 1963 BREAST CANCER SCREENING DISCUSSION YEARLY AGES [...] of this encounter Implants Implanted Type Area Cloth Dyeing Range Tender Device Identifier Shelf Expiration Date Model / Serial / Lot Lens 17.0 Mx60 - [id number] - [id number] Implanted:Qty: 1 on 09/01/2017 by Vic Mckee MD at OR [facility] Right: Eye BAUSCH [employer] LOMB : SURGICAL 01/23/2020 MX60-17.0 / [id number] / [id number] Mx60 14.5 Envista Implanted:Qty: 1 on 09/29/2017 by Vic Mckee MD at OR [facility] Left: Eye 01/23/2020 MX 60 14.5 / [id number] / [id number] documented as of this encounter Procedures Procedure Name Priority Date/Time Associated Diagnosis Comments OUTSIDE LAB RESULTS 11/19/2018 documented in this encounter Results * OUTSIDE LAB RESULTS (11/19/2018) Specimen Narrative Performed At documented in this encounter Advance Directives Documents on File Type Date Recorded Patient Icer Hand Expl anation Advanced Directive service a [...]
--- OUTSIDE RECORDS SUMMARY | 2023-01-21 07:00 | External Medical Summary | Summary of Care ---
Author Name Unknown Organization [place] [address] Care Team Providers Care Mold Maker Plastic Molds Name Role Phone John Melendez MD Primary Care Provider [phone] Reason for Visit * Reason Comments Advice Encounter Details Date Type Department Care Team Description 11/18/2019 Telephone Rheumatology [facility] [address] [facility] [place] [address] Jez Sharpe MD [facility] [place] [address] Advice Allergies Active Allergy Reactions Severity Noted Date Comments Nelson-2 Inhibitors Rash 03/30/2006 Codeine High 12/26/2010 Throat swells Ivp Dye Hives Medium 12/26/2002 Morphine And Related High 03/16/2003 Swells throat Sulfa Antibiotics Rash 12/26/2002 Tetracycline Rash 12/26/2002 Tramadol Hcl 06/20/2009 Severe constipation Nsaids 03/19/2009 Elevated serum creatinine. documented as of this encounter (statuses as of 11/18/2019) Medications Medication Sig Dispensed Refills Start Date [...] Active Ca & Phos-Vit D-Mag (POSTURE-D CALCIUM/MAGNESIUM) [phone] TABS Take by mouth. 1 daily 0 Active folic acid (KP FOLIC ACID) 1 MG Tablet Take 1 mg by mouth daily. 0 Active levalbuterol (XOPENEX) 0.63 MG/3ML nebulizer [...] MG Tablet As needed 0 05/30/2019 Active methylPREDNISolone (MEDROL DOSEPACK) 4 MG TBPK follow package directions 21 Tab 0 08/30/2019 Active predniSONE (DELTASONE) 5 MG Tablet 15 mg daily for 4 days, 10 mg daily for 4 days, then resume home dosing of 5 mg daily 20 Tab 2 11/18/2019 Active documented as of this encounter (statuses as of 11/18/2019) Active Problems Problem Noted Date CKD stage 4 secondary to hypertension DETECT Research Study*[id number] Overview: DO NOT DELETE [facility] DETECT Study: Project # [id number], Orchard Manager: Antoni Ford, PhD. SUMMARY: Goal: Establish test [...] contact study staff at ; after hours Orchard Manager via the [facility] steam shovel operator . Please contact study team before resolving/deleting from patients problem list. Study phone number: [phone]. Hypothyroidism 02/24/2007 Psoriatic arthropathy 04/06/2003 Other psoriasis 12/26/2002 HTN, goal below 140/90 12/26/2002 GERD (gastroesophageal reflux disease) 0 12/26/2002 GENERAL OSTEOARTHROSIS 12/26/2002 documented as of this encounter (statuses as of 11/18/2019) Resolved Problems Problem Noted Date Resolved Date KIDNEY DZ,CHRONIC (GFR 30-59) STAGE III 12/14/19 10 09/22/2018 Overview: Per CKD Protocol, #1 documented as of this encounter (statuses as of 11/18/2019) Immunizations Name Administration Dates Next Due DT [...] Telephone Encounter - Jez Sharpe MD - 11/18/2019 4:01 PM EDT I discussed with Mike. Will do a prednisone taper and follow. If this continues being issue may need to restart Otezla. * Telephone Encounter - Colleen Platt OSA - 11/18/2019 10:39 AM EDT Pt asking to speak to nurse or provider. States she is having a lot of pain and cannot function. Ptstates the pain is in all her joints and especially her hands and feet. No pain medications are working. Pt can be reached at [phone]. documented in this encounter Plan of Treatment Upcoming Encounters Date Type Specialty Care Team Description 12/20/2019 Office Visit Rheumatology Jez Sharpe MD [address] [place] [address] [phone] Health Maintenance Due Date Last Done Comments CKD NEPHROLOGY EVAL USE SMARTSET 47585 1963 CKD PHOS USE SMARTSET 85336 1963 CKD PTH USE SMARTSET 47794 1963 CKD URINE PROTEIN/CREATININE RATION OR URINE MICROALBUMIN YEARLY USE SMARTSET 99765 1963 BREAST CANCER SCREENING DISCUSSION YEARLY AGES 40-75 1986 Zoster Vaccines (1 of 2) 1996 CKD CALCIUM USE SMARTSET 21015 01/16/2006 10/16/2005 DIABETES SCREEN EVERY 3 YRS-AGE 45 AND ABOVE 10/16/2008 10/16/2005 Pneumococcal Vaccine: 65+ Years (1 of 2 - PCV13) 2011 06/02/2007, 2002 CKD GFR USE SMARTSET 25113 01/30/201607/29, 01/05/2015, 10/09/2014, Additional history exists CKD HGB USE SMARTSET 78280 01/30/201607/29, 01/05/2015, 10/09/2014, Additional history exists *BASIC [...] Tdap) 12/13/2019 12/12/2009 Influenza Vaccine (FLU shot) Completed 05/2018, 03/05/2012, 06/08/2009, Additional history exists MENINGOCOCCAL (MENACTRA/MENVEO) Aged Out No longer eligible based on patient's age to complete this topic documented as of this encounter Implants Implanted Type Area Research Computing Specialist Device Identifier Shelf Expiration Date Model / Serial / Lot Lens 17.0 Mx60 - [id number] - [id number] Implanted:Qty: 1 on 09/01/2017 by Vic Mckee MD at OR [facility] Right: Eye BAUSCH & LOMB : SURGICAL 01/23/2020 MX60-17.0 / [id number] / [id number] Mx60 14.5 Envista Implanted:Qty: 1 on 09/29/2017 by Vic Mckee MD at OR [facility] Left: Eye 01/23/2020 MX 60 14.5 / [id number] / [id number] documented as of this encounter Advance Directives Documents on File Type Date Recorded 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
--- OUTSIDE RECORDS SUMMARY | 2023-01-21 07:00 | External Medical Summary | Summary of Care ---
Author Name Unknown Organization [place] [address] Care Team Providers Care Network Internship Name Role Phone John Melendez MD Primary Care Provider [phone] Reason for Visit * Reason Comments Rheum Follow Up 6 month recheck Encounter Details Date Type Department Care Team Description 06/21/2019 Office Visit Rheumatology [address] [place] [address] Jez Sharpe MD [facility] [place] [id number] Psoriatic arthropathy (HCC)*; 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); Other psoriasis; Generalized osteoarthritis Allergies Active Allergy Reactions Severity Noted Date Comments Nelson-2 Inhibitors Rash 03/30/2006 Codeine High 12/26/2010 Throat swells Ivp Dye Hives Medium 12/26/2002 Morphine And Related High 03/16/2003 Swells throat Sulfa Antibiotics Rash 12/26/2002 Tetracycline Rash 12/26/2002 Tramadol Hcl 06/20/2009 Severe constipation Nsaids 03/19/2009 Elevated serum creatinine. documented as of this encounter (statuses as of 06/21/2019) Medications Medication Sig Dispensed Refills Start Date [...] Active Ca & Phos-Vit D-Mag (POSTURE-D CALCIUM/MAGNESIUM) [phone] TABS Take by mouth. 1 daily 0 [...] MG Tablet As needed 0 05/30/2019 Active documented as of this encounter (statuses as of 06/21/2019) Active Problems Problem Noted Date CKD stage 4 secondary to hypertension DETECT Research Study*[id number] Overview: DO NOT DELETE [facility] DETECT Study: Project # [id number], Ground Crewman Mission Support: Antoni Ford, PhD. SUMMARY: Goal: Establish test [...] contact study staff at ; after hours Ground Crewman Mission Support via the [facility] hospital telegraphic typewriter operator chief . Please contact study team before resolving/deleting from patients problem list. Study phone number: [phone]. Hypothyroidism 02/24/2007 Psoriatic arthropathy 04/06/2003 Other psoriasis 12/26/2002 HTN, goal below 140/90 12/26/2002 GERD (gastroesophageal reflux disease) 0 12/26/2002 GENERAL OSTEOARTHROSIS 12/26/2002 documented as of this encounter (statuses as of 06/21/2019) Resolved Problems Problem Noted Date Resolved Date KIDNEY DZ,CHRONIC (GFR 30-59) STAGE III 12/14/19 10 09/22/2018 Overview: Per CKD Protocol, #1 documented as of this encounter (statuses as of 06/21/2019) Immunizations Name Administration Dates Next Due DT [...] Travel End documented as of this encounter Last Filed Vital Signs Vital Sign Reading Time Taken Comments Blood Pressure 140/80 06/21/2019 1:57 PM EST Pulse - - Temperature 36.9 C (98.4 F) 06/21/2019 1:57 PM ES T Respiratory Rate - - Oxygen Saturation - - Inhaled Oxygen Concentration - - Weight 94.3 kg (208 lb) 06/21/2019 1:57 PM EST Height - - Body Mass Index 29.01 09/22/2018 8:17 AM EDT documented in this encounter Progress Notes * Jez Sharpe MD - 06/21/2019 1:51 PM EST Subjective: Patient seen today for further follow up evaluation of osteoarthritis, ckd stage 4, psoriasis, PsA.Since the last visit she has noted some increased arthritis in her hands and feet. She did have right hip replaced by Dr Gonzales the 3rd of this month. She is having diffuse itching from the narcoticsshe was given. She is also dealing with edema in the area of surgery and down the right leg. Her kid chelsey function has remained stable. She reports that Dr gonzales did order medrol dose pack for her itching. She is to stop oxycodone. She just saw ortho prior to this appt. She has remained off otezla. Besides the itching her psoriasis has been doing pretty good. . She reports that she has tried benadryl for the itching and it has not helped. She has not used the narcotic for 5 days now because of the itching. Musculoskeletal ROS: . Abnormal: joint pain . Pain scale (0-10): 4 Other ROS: . Constitutional: normal . Head normal . Eyes: normal . Ears, nose, throat, mouth: normal . Cardiovascular: edema . Respiratory: normal . Gastrointestinal: normal . Genitourinary: normal . Skin: rash All other ROS reviewed and negative Social History: Social History Tobacco Use Smoking status: Former Smoker Last attempt to quit: 07/15/1972 Years since quittin.9 Smokeless tobacco: Never Used Substance Use Topics Alcohol use: Yes Comment: rare Current Outpatient Medications Medication Sig Dispense Refill NIFEdipine ER Osmotic Release 30 MG TB24 1 daily benzonatate (TESSALON PERLES) 100 MG Capsule Take 100 mg by mouth 2 times a day as needed for Cough. Ca & Phos-Vit D-Mag (POSTURE-D CALCIUM/MAGNESIUM) [phone] TABS Take by mouth. 1 daily Calcipotriene 0.005 % cream Apply topically to affected area 2 times a day. Apply to affected areas dicyclomine (BENTYL) 20 MG Tablet 1 three times daily as needed DULoxetine (CYMBALTA) 60 MG CPEP 1 daily folic acid (KP FOLIC ACID) 1 MG Tablet Take 1 mg by mouth daily. levalbuterol (XOPENEX) 0.63 MG/3ML nebulizer solution Inhale 1 Ampule via nebulizer every 4 hours as needed for Wheezing. levothyroxine (LEVOXYL) 75 MCG Tablet 1 daily nitroglycerin (NITRO-DUR) 0.4 MG/HR patch Apply 12-14 hr then remove tacrolimus (PROTOPIC) 0.03 % OINT Apply topically to affected area 2 times a day. Apply to both hands triamcinolone acetonide (ARISTOCORT) 0.025 % cream Apply topically to affected area 2 times a day. Apply to hands aspirin enteric coated 81 MG TBEC Take 81 mg by mouth daily. pantoprazole (PROTONIX) 40 MG Pack Take 40 [...] tab by mouth daily 0 Physical Exam: There were no vitals taken for this visit. General: alert, healthy, well nourished and well developed HENT: normocephalic, external ears normal, no mucosal erythema, no mucosal edema, moist mucosa, no oral ulcers Eye Exam: PERRL, EOMI, conjunctiva are pink and non-injected, sclera clear Neck: supple, no adenopathy, thyroid normal size, non-tender, without nodularity Lymph: no palpable lymphadenopathy Heart: regular rate & rhythm and no gallops Lungs: clear to auscultation , no rales, wheezes or rhonchi Abdomen: abdomen soft, non-tender and normal bowel sounds Skin: diffuse erythematous rash over arms, back with excoriation noted Musculoskeletal Exam: Edema noted at the surgical site of the right hip replacements No signs lightest or dactylitis noted Assessment: L40.50 Psoriatic arthropathy (HCC) (primary encounter diagnosis) I12.9,N18.4 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) L40.8 Other psoriasis M15.9 Generalized osteoarthritis No evidence of active inflammatory disease off Otezla for almost a year now. More dealing with secondary arthritis pain. At this point in time she is actually more bothered by diffuse drug rash from narcotics. Plan: 1. Steroids as per orthopedics 2. Continue off Otezla 3. Contact if the inflammatory arthritis returns 4. Return to clinic in 6 months Jez Sharpe MD Department of Rheumatology documented in this encounter Nursing Notes * Dorothea Cole LPN - 06/21/2019 1:57 PM EST Chief Complaint Patient presents with Rheum Follow Up 6 month recheck documented in this encounter Plan of Treatment Upcoming Encounters Date Type Specialty Care Team Description 12/20/2019 Office Visit Rheumatology Jez Sharpe MD [address] [place] [address] [phone] Health Maintenance Due Date Last Done Comments CKD NEPHROLOGY EVAL USE SMARTSET 07374 1963 CKD PHOS USE SMARTSET 88891 1963 CKD PTH USE SMARTSET 55928 1963 CKD URINE PROTEIN/CREATININE RATION OR URINE MICROALBUMIN YEARLY USE SMARTSET 88614 1963 BREAST CANCER SCREENING DISCUSSION YEARLY AGES 40-75 1986 Zoster Vaccines (1 of 2) 1996 CKD CALCIUM USE SMARTSET 80769 01/16/2006 10/16/2005 DIABETES SCREEN EVERY 3 YRS-AGE 45 AND ABOVE 10/16/2008 10/16/2005 Pneumococcal Vaccine: 65+ Years (1 of 2 - PCV13) 2011 06/02/2007, 2002 CKD GFR USE SMARTSET 81065 01/30/201607/29, 01/05/2015, 10/09/2014, Additional history exists CKD HGB USE SMARTSET 66026 01/30/201607/29, 01/05/2015, 10/09/2014, Additional history exists *BASIC METABOLIC PANEL (BMP) FOR HTN YEARLY 09/08/2017 *COLORECTAL CANCER SCREENING (COLONOSCOPY 10 YEARS; SIGMOIDOSCOPY 5 YEARS; COLOGUARD 3 YEARS; FOBT 1 YEAR),AGES 50-75 09/08/2017 *DEPRESSION SCREENING,ANNUAL FOR PTS 12 AND OVER 09/08/2017 *TSH FOR THYROID MEDICATION MONITORING YEARLY 09/08/2017 *URINE PROTEIN ONCE FOR HTN-DIPSTICK ACCEPTABLE 09/08/2017 Influenza Vaccine (FLU shot) (#1) 2019 03/05/2012, 06/08/2009, 06/03/2009, Additional history exists DTaP,Tdap,and Td Vaccines (2 - Tdap) 12/13/2019 12/12/2009 MENINGOCOCCAL (MENACTRA/MENVEO) Aged Out No longer eligible based on patient's age to complete this topic documented as of this encounter Implants Implanted Type Area Hydroelectric Production Manager Device Identifier Shelf Expiration Date Model / Serial / Lot Lens 17.0 Mx60 - [id number] - [id number] Implanted:Qty: 1 on 09/01/2017 by Vic Mckee MD at OR [facility] Right: Eye BAUSCH [employer] LOMB : SURGICAL 01/23/2020 MX60-17.0 / [id number] / [id number] Mx60 14.5 Envista Implanted:Qty: 1 on 09/29/2017 by Vic Mckee MD at OR [facility] Left: Eye 01/23/2020 MX 60 14.5 / [id number] / [id number] documented as of this encounter Visit Diagnoses Diagnosis Psoriatic arthropathy (HCC)- Primary Psoriatic arthropathy 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) Other psoriasis Generalized osteoarthritis Generalized osteoarthrosis, unspecified site documented in this encounter Advance Directives Documents on File Type Date Recorded 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
--- OUTSIDE RECORDS SUMMARY | 2023-01-21 07:00 | External Medical Summary | Summary of Care ---
Author Name Unknown Organization [place] [address] Care Team Providers Care Office Services Manager Name Role Phone John Melendez MD Primary Care Provider [phone] Reason for Visit * Reason Comments Rheum Follow Up 3 kmonth recheck Encounter Details Date Type Department Care Team Description 12/21/2018 Office Visit Rheumatology [place] [id number] [facility] [place] [address] Jez Sharpe MD [address] [facility] [place] [id number] Psoriatic arthropathy (HCC)*; 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); GENERAL OSTEOARTHROSIS; Other psoriasis Allergies Active Allergy Reactions Severity Noted Date Comments Nelson-2 Inhibitors Rash 03/30/2006 Codeine High 12/26/2010 Throat swells Ivp Dye Hives Medium 12/26/2002 Morphine And Related High 03/16/2003 Swells throat Sulfa Antibiotics Rash 12/26/2002 Tetracycline Rash 12/26/2002 Tramadol Hcl 06/20/2009 Severe constipation Nsaids 03/19/2009 Elevated serum creatinine. documented as of this encounter (statuses as of 12/21/2018) Medications Medication Sig Dispensed Refills Start Date End Date Status VITAMIN D 1000 UNIT PO CAPS 1 tab by mouth daily 0 11/15/2007 Active CLOBETASOL PROPIONATE 0.05 % EX CREAIndications:O ther psoriasis Apply to affected area twice daily as needed for flares 60GM 4 03/02/2009 Active FISH OIL 1000 MG PO CAPS one capsule twice daily 0 Active spironolactone (ALDACTONE) 25 MG Tablet 25 mg 2 times a day. daily 0 Active Potassium Chloride Katherine ER 20 MEQ TBCR 1 twice daily 0 12/04/2014 Active nitroglycerin 0.4 MG/SPRAY spray As needed 0 11/22/2014 Active PredniSONE (DELTASONE) 5 MG TabletIndications :Psoriatic arthropathy (HCC) Take 1 Tab by mouth [...] 08/26/2018 Active Ca & Phos-Vit D-Mag (POSTURE-D CALCIUM/MAGNESIUM ) [phone] TABS Take by mouth. 1 daily 0 [...] MG TB24 1 daily 0 09/28/2018 Active Apremilast (OTEZLA) 30 MG TABS Take 30 mg by mouth. 1 daily 0 12/21/2018 Discontinued documented as of this encounter (statuses as of 12/21/2018) Active Problems Problem Noted Date CKD stage 4 secondary to hypertension DETECT Research Study*[id number] Overview: [facility] DETECT Study: Project # [id number], Car Sander: Antoni Ford, PhD. SUMMARY: Goal: Establish test [...] study staff at ; after hours Car Sander via [place] [facility] top bottom attaching machine operator . Hypothyroidism 02/24/2007 Psoriatic arthropathy 04/06/2003 Other psoriasis 12/26/2002 HTN, goal below 140/90 12/26/2002 GERD (gastroesophageal reflux disease) 0 12/26/2002 GENERAL OSTEOARTHROSIS 12/26/2002 documented as of this encounter (statuses as of 12/21/2018) Resolved Problems Problem Noted Date Resolved Date KIDNEY DZ,CHRONIC (GFR 30-59) STAGE III 12/14/19 10 09/22/2018 Overview: Per CKD Protocol, #1 documented as of this encounter (statuses as of 12/21/2018) Immunizations Name Administration Dates Next Due DT [...] Sign Reading Time Taken Comments Blood Pressure 138/80 12/21/2018 9:00 AM EDT Pulse - - Temperature 36.9 C (98.5 F) 12/21/2018 9:00 AM ED T Respiratory Rate - - Oxygen Saturation - - Inhaled Oxygen Concentration - - Weight 94.8 kg (209 lb) 12/21/2018 9:00 AM EDT Height - - Body Mass Index 29.15 09/22/2018 8:17 AM EDT documented in this encounter Progress Notes * Jez Sharpe MD - 12/21/2018 9:05 AM EDT Subjective: Patient seen today for further follow up evaluation of osteoarthritis, psoriatic arthritis, CKD stage 4, psoriasis. Since the last visit she did stop otezla and did not restart it. Her arthritis pains did not change or worsen. She had left total shoulder done since last visit and is doing rehab. Still has limited rom of the shoulder. She was started on cymbalta and this does given benefit for her pains but takes several hrs to start working. Her pains are worse in the am. She notes some swelling to the PIPs and some cramping as well. She is rating her pain at 6 and then can be at 2 in the afternoon. She report is no longer taking Xanax. Her skin disease is doing okay. She is followed by Nephrology for her kidney disease Musculoskeletal ROS: . Abnormal: joint pain and joint swelling . AM stiffness (hours): can be all day . Pain scale (0-10): 6 Other ROS: . Constitutional: normal . Head normal . Eyes: normal . Ears, nose, throat, mouth: normal . Cardiovascular: normal . Respiratory: normal . Gastrointestinal: normal . Genitourinary: normal . Skin: rash All other review of systems reviewed and negative Social History: Social History Tobacco Use Smoking status: Former Smoker Last attempt to quit: 07/15/1972 Years since quittin.4 Smokeless tobacco: Never Used Substance Use Topics Alcohol use: Yes Comment: rare Current Outpatient Medications Medication Sig Dispense Refill NIFEdipine ER Osmotic Release 30 MG TB24 1 daily Apremilast (OTEZLA) 30 MG TABS Take 30 mg by mouth. 1 daily benzonatate (TESSALON PERLES) 100 MG Capsule Take 100 mg by mouth 2 times a day as needed for Cough. Ca & Phos-Vit D-Mag (POSTURE-D CALCIUM/MAGNESIUM) [phone] TABS Take by mouth. 1 daily Calcipotriene [...] by mouth daily 0 Physical Exam: BP 138/80 | Temp (Src) 98.5 (Tympanic) | Wt 209 lbs (94.802kg) | BMI 29.15 kg/m | BSA 2.18 m General: alert, healthy, no distress and well nourished HENT: normocephalic, external ears normal, no mucosal erythema, no mucosal edema, moist mucosa, no oral ulcers Eye Exam: PERRL, EOMI, conjunctiva are pink and non-injected, sclera clear Heart: regular rate & rhythm and no gallops Lungs: clear to auscultation , no rales, wheezes or rhonchi Abdomen: abdomen soft, non-tender and normal bowel sounds Extremities: no clubbing, no cyanosis Skin: Minimal psoriasis on the right elbow Musculoskeletal Exam: No synovitis Heberden nodes and Guicho's nodes noted both hands Tender Guicho's node right 3rd PIP Assessment: L40.50 Psoriatic arthropathy (HCC) (primary encounter diagnosis) I12.9,N18.4 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) M15.9 GENERAL OSTEOARTHROSIS L40.8 Other psoriasis She has no active psoriatic arthritis noted on exam. More dealing with secondary osteoarthritis pains. PCP could consider switching Cymbalta to 30 mg twice a day or increasing to 90 mg daily were shedoes 60 mg in the morning and 30 mg at dinner especially since her symptoms are worse in the morning. Plan: 1. Discussed with PCP about changing Cymbalta dose to 30 mg twice daily verses 60 mg in the morningand 30 mg at dinner 2. Continue off Otezla 3. Continue with prednisone 5 mg a day 4. Return to clinic in 6 months Jez Sharpe MD Department of Rheumatology documented in this encounter Nursing Notes * Dorothea Cole LPN - 12/21/2018 9:00 AM EDT Chief Complaint Patient presents with Rheum Follow Up 3 kmonth recheck documented in this encounter Plan of Treatment Upcoming Encounters Date Type Specialty Care Team Description 06/21/2019 Office Visit Rheumatology Jez Sharpe MD [address] [place] [address] [phone] Health Maintenance Due Date Last Done Comments CKD URINE PROTEIN/CREATININE RATION OR URINE MICROALBUMIN YEARLY USE SMARTSET 36197 1963 BREAST CANCER SCREENING DISCUSSION YEARLY AGES [...] of this encounter Implants Implanted Type Area Data Entry Representative Device Identifier Shelf Expiration Date Model / Serial / Lot Lens 17.0 Mx60 - [id number] - [id number] Implanted:Qty: 1 on 09/01/2017 by Vic Mckee MD at OR [facility] Right: Eye [employer]USCH [employer] LOMB : SURGICAL 01/23/2020 MX60-17.0 / [id number] / [id number] Mx60 14.5 Envista Implanted:Qty: 1 on 09/29/2017 by Vic Mckee MD at OR [facility] Left: Eye 01/23/2020 MX 60 14.5 / [id number] / [id number] documented as of this encounter Visit Diagnoses Diagnosis Psoriatic arthropathy (HCC)- Primary Psoriatic arthropathy 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) GENERAL OSTEOARTHROSIS Generalized osteoarthrosis, unspecified site Other psoriasis documented in this encounter Advance Directives Documents on File Type Date Recorded 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
--- OUTSIDE RECORDS SUMMARY | 2023-01-21 07:00 | External Medical Summary | Summary of Care ---
Author Name Unknown Organization [place] [address] Care Team Providers Care Automation Clerk Name Role Phone John Melendez MD Primary Care Provider [phone] Reason for Visit * Reason Comments Advice Encounter Details Date Type Department Care Team Description 08/30/2019 Telephone Rheumatology [facility] [address] [place] [address] Jez Sharpe MD [facility] [place] [address] Advice Allergies Active Allergy Reactions Severity Noted Date Comments Nelson-2 Inhibitors Rash 03/30/2006 Codeine High 12/26/2010 Throat swells Ivp Dye Hives Medium 12/26/2002 Morphine And Related High 03/16/2003 Swells throat Sulfa Antibiotics Rash 12/26/2002 Tetracycline Rash 12/26/2002 Tramadol Hcl 06/20/2009 Severe constipation Nsaids 03/19/2009 Elevated serum creatinine. documented as of this encounter (statuses as of 08/30/2019) Medications Medication Sig Dispensed Refills Start Date [...] Active Ca & Phos-Vit D-Mag (POSTURE-D CALCIUM/MAGNESIUM) [phone] TABS Take by mouth. 1 daily 0 [...] package directions 21 Tab 0 08/30/2019 Active documented as of this encounter (statuses as of 08/30/2019) Active Problems Problem Noted Date CKD stage 4 secondary to hypertension DETECT Research Study*[id number] Overview: DO NOT DELETE [facility] DETECT Study: Project # [id number], Product Line Manager: Antoni Ford, PhD. SUMMARY: Goal: Establish [...] contact study staff at ; after hours Product Line Manager via the [facility] [place] hoop driving machine operator . Please contact study team before resolving/deleting from patients problem list. Study phone number: [phone]. Hypothyroidism 02/24/2007 Psoriatic arthropathy 04/06/2003 Other psoriasis 12/26/2002 HTN, goal below 140/90 12/26/2002 GERD (gastroesophageal reflux disease) 0 12/26/2002 GENERAL OSTEOARTHROSIS 12/26/2002 documented as of this encounter (statuses as of 08/30/2019) Resolved Problems Problem Noted Date Resolved Date KIDNEY DZ,CHRONIC (GFR 30-59) STAGE III 12/14/19 10 09/22/2018 Overview: Per CKD Protocol, #1 documented as of this encounter (statuses as of 08/30/2019) Immunizations Name Administration Dates Next Due DT [...] Telephone Encounter - Jez Sharpe MD - 08/30/2019 4:23 PM EDT I spoke with Mike - she reports her PCP felt it was psoriasis that was her rash and itching. Topical therapies not helping as much. Will try a Medrol Dosepak. Sent to request pharmacy. * Telephone Encounter - Micki Clark OSA - 08/30/2019 12:25 PM EDT Reason for patient's call: patient's is having a flare up with terrible itching that she is scratching herself constantly and is unable to sleep. Patient did she her PCP 3 weeks aga and was prescribed betametabone valerate 0.10 % but it is not working . She is asking to speak to a nurse . Please advise. Patient is currently using [facility] , [address] [facility]. documented in this encounter Plan of Treatment Upcoming Encounters Date Type Specialty Care Team Description 12/20/2019 [place] [address] [place] [address], [place] [address] [phone] Health Maintenance Due Date Last Done Comments CKD NEPHROLOGY EVAL USE SMARTSET 92448 1963 CKD PHOS USE SMARTSET 77027 1963 CKD PTH USE SMARTSET 79589 1963 CKD URINE PROTEIN/CREATININE RATION OR URINE MICROALBUMIN YEARLY USE SMARTSET 10609 1963 BREAST CANCER SCREENING DISCUSSION YEARLY AGES 40-75 1986 Zoster Vaccines (1 of 2) 1996 CKD CALCIUM USE SMARTSET 14797 01/16/2006 10/16/2005 DIABETES SCREEN EVERY 3 YRS-AGE 45 AND ABOVE 10/16/2008 10/16/2005 Pneumococcal Vaccine: 65+ Years (1 of 2 - PCV13) 2011 06/02/2007, 2002 CKD GFR USE SMARTSET 31772 01/30/201607/29, 01/05/2015, 10/09/2014, Additional history exists CKD HGB USE SMARTSET 04547 01/30/201607/29, 01/05/2015, 10/09/2014, Additional history exists *BASIC [...] of this encounter Implants Implanted Type Area Condominium Association Manager Device Identifier Shelf Expiration Date Model / Serial / Lot Lens 17.0 Mx60 - [id number] - [id number] Implanted:Qty: 1 on 09/01/2017 by Vic Mckee MD at OR [facility] Right: Eye [employer]USCH [employer] LOMB : SURGICAL 01/23/2020 MX60-17.0 / [id number] / [id number] Mx60 14.5 Envista Implanted:Qty: 1 on 09/29/2017 by Vic Mckee MD at OR [facility] Left: Eye 01/23/2020 MX 60 14.5 / [id number] / [id number] documented as of this encounter Advance Directives Documents on File Type Date Recorded Patient Equity Structurer Expl 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
--- OUTSIDE RECORDS SUMMARY | 2023-01-21 07:01 | External Medical Summary | Summary of Care ---
Author Name Unknown Organization [place] [address] Care Team Providers Care Correspondent Name Role Phone John Melendez MD Primary Care Provider Reason for Visit * Reason Comments transfer of records CORIE / Shelton Melendez Encounter Details Date Type Department Care Team Description 09/07/2018 Telephone Rheumatology [facility] [address] [place] [address] Jez Sharpe MD [address] [place] [address] [phone] transfer of records (CORIE / Shelton Melendez) Allergies Active Allergy Reactions Severity Noted Date Comments Nelson-2 Inhibitors Rash 03/30/2006 Codeine High 12/26/2010 Throat swells Ivp Dye Hives Medium 12/26/2002 Morphine And Related High 03/16/2003 Swells throat Sulfa Antibiotics Rash 12/26/2002 Tetracycline Rash 12/26/2002 Tramadol Hcl 06/20/2009 Severe constipation Nsaids 03/19/2009 Elevated serum creatinine. documented as of this encounter (statuses as of 09/07/2018) Medications Medication Sig Dispensed Refills Start Date End Date Status XANAX 0.5 MG PO TABS 1 tab po every 12 hours 90 0 11/23/2006 Active VITAMIN D 1000 UNIT PO CAPS 1 tab by mouth daily 0 11/15/2007 Active CALCIUM 500 MG PO TABS 2 tabs po bid 0 11/15/2007 Active CLOBETASOL PROPIONATE 0.05 % EX CREAIndications:Other psoriasis Apply to affected area twice daily as needed for flares 60GM 4 03/02/2009 Active FISH OIL 1000 MG PO CAPS one capsule twice daily 0 Active EYE-AJ PLUS LUTEIN PO CAPS one capsule twice daily 0 [...] mouth daily. 100 Tab 3 01/05/2015 Active folic acid 1 MG TabletIndications:Pso riatic arthropathy (HCC) 4 TABLETS DAILY but not day you take MTX 360 Tab 3 01/05/2015 Active METHOtrexate 2.5 MG Tablet 8 tablets once weekly 104 Tab 3 03/15/2015 Active Azelastine HCl 0.1 % nasal spray Administer 2 Sprays into nostril daily. 0 07/02/2015 Active diltiazem CD (CARDIZEM CD) 240 MG CP24 Take 1 Cap by mouth daily. 0 04/25/2015 Active ipratropium-albuterol (COMBIVENT RESPIMAT) 20-100 MCG/ACT Inhaler Inhale 1 Puff by mouth 2 times a day. 0 Active dicyclomine (BENTYL) 10 MG Capsule Take 10 mg by mouth 3 times a day. 0 Active Magnesium 400 MG Capsule Take 800 mg by mouth daily. 0 Active Cetirizine HCl (ZYRTEC ALLERGY) 10 MG Capsule Take 10 mg by mouth daily. 0 Active LEVOXYL 88 MCG Tablet Take 1 Tab by mouth daily. 0 07/05/2015 Active Apremilast (OTEZLA) 30 MG TABS Take 1 Tab by mouth 2 times a day. 180 Tab 4 10/31/2016 Active aspirin enteric coated 81 MG TBEC Take 81 mg by mouth daily. 0 Active pantoprazole (PROTONIX) 40 MG Pack Take 40 mg by mouth daily. 0 Active documented as of this encounter (statuses as of 09/07/2018) Active Problems Problem Noted Date DETECT Research Study*[id number] Overview: [facility] DETECT Study: Project # [id number], Rolfer: Antoni Ford, PhD. SUMMARY: Goal: Establish test [...] contact study staff at ; after hours Rolfer via the [facility] hospital systems operator . KIDNEY DZ,CHRONIC (GFR 30-59) STAGE III 12/13/2009 Overview: Per CKD Protocol, #1 Hypothyroidism 02/24/2007 Psoriatic arthropathy 04/06/2003 Other psoriasis 12/26/2002 HTN, goal below 140/90 12/26/2002 GERD (gastroesophageal reflux disease) 0 12/26/2002 GENERAL OSTEOARTHROSIS 12/26/2002 documented as of this encounter (statuses as of 09/07/2018) Immunizations Name Dates Previously Given Next Due DT - Diptheria/Tetanus (PEDS) 12/12/2009 H1N1 2009 Influenza, IM 06/08/2009 PPD 09/07/2008 Pneumococcal Polysaccharide PPV23 (Pneumovax) 06/02/2007,2002 Seasonal Influenza, Trivalen t, with Preserve, 3yr & Above, Split 03/05/2012,06/03/2009,04/03/2009,12/2008,03/13/2007,03/30/2006 documented as of this encounter Social History [...] encounter Miscellaneous Notes * Telephone Encounter - Ciara Parra OSA - 09/07/2018 7:52 AM EDT Ref and notes from CORIE / Shelton Melendez rec'd by fax. Appt 09/22/[address] Sharpe's desk documented in this encounter Plan of Treatment Upcoming Encounters Date Type Specialty Care Team Description 09/22/2018 Office Visit Rheumatology Jez Sharpe MD [address] [place] [address] [phone] Pedro, Nurse Arrival Rheumatology [facility] [address] [place] [address] Health Maintenance Due Date Last Done Comments CKD PHOS USE SMARTSET 26653 1963 CKD URINE PROTEIN/CREATININE RATION OR URINE MICROALBUMIN YEARLY USE SMARTSET 96222 1963 BREAST CANCER SCREENING DISCUSSION YEARLY AGES 40-75 1986 DIABETES SCREEN EVERY 3 YRS-AGE 45 AND ABOVE 10/16/2008 10/16/2005 PNEUMOCOCCAL ADULT 65 YRS AND OVER (1 of 2 - PCV13) 2011 06/02/2007, 2002 CKD GFR USE SMARTSET 69789 01/30/201607/29, 01/05/2015, 10/09/2014, Additional history exists CKD HGB USE SMARTSET 54692 07/29/201607/29, 01/05/2015, 10/09/2014, Additional history exists *BASIC METABOLIC PANEL (BMP) FOR HTN YEARLY 09/08/2017 *COLORECTAL CANCER SCREENING (COLONOSCOPY 10 YEARS; SIGMOIDOSCOPY 5 YEARS; COLOGUARD 3 YEARS; FOBT 1 YEAR),AGES 50-75 09/08/2017 *DEPRESSION SCREENING, ANNUAL FOR PTS 18 AND OVER 09/08/2017 *TSH FOR THYROID MEDICATION MONITORING YEARLY 09/08/2017 *URINE PROTEIN ONCE FOR HTN-DIPSTICK ACCEPTABLE 09/08/2017 Influenza Vaccine (FLU shot) (#1) 2017 03/05/2012, 06/08/2009, 06/03/2009, Additional history exists DXA-SCREENING EVERY 7 YRS-USE SMARTSET# 3348 TO ORDER 12/26/2017 12/26/2010, 11/23/2007, 11/23/2007, Additional history exists DTaP,Tdap,and Td Vaccines (2 - Tdap) 12/13/2019 12/12/2009 MENINGOCOCCAL (MENACTRA) Aged Out No longer eligible based on patient's age to complete this topic documented as of this encounter Implants Implanted Type Area Early Childhood Lead Teacher Device Identifier Shelf Expiration Date Model / Serial / Lot Lens 17.0 Mx60 - [id number] - [id number] Implanted:Qty: 1 on 09/01/2017 by Vic Mckee MD Right: Eye BAUSCH [employer] LOMB : SURGICAL 01/23/2020 MX60-17.0 / [id number] / [id number] Mx60 14.5 Envista Implanted:Qty: 1 on 09/29/2017 by iVc Mckee MD Left: Eye 01/23/2020 MX 60 14.5 / [id number] / [id number] documented as of this encounter Advance Directives Patient has advance care planning documents, and code status on file. For more information, please contact: [place] [address] Latest Code Status on File Code Status Date Activated Date Inactivated Comments Full Code 09/29/2017 1:53 PM 09/29/2017 8:48 PM This or alejandro reflects the patients wishes and were consensually agreed upon. Full Code 09/01/2017 10:19 AM 09/01/2017 5:23 PM This order reflects the patients wishes and were consensually agreed upon.
--- OUTSIDE RECORDS SUMMARY | 2023-01-21 07:01 | External Medical Summary ---
Author Name Unknown Address [address] [id number] Phone Organization K01:[facility] [address] [id number] Laboratory Report Ordering Provider Test Date Status SANDRA MCCARTHY MD [id number] Final Obs # Observation Date Value Abnormality Reference Status Performing Location 0 Creatinine [id number] 1.7 Above high normal 0.5-1.2 Final [facility] [address] [facility] [address]
--- OUTSIDE RECORDS SUMMARY | 2023-01-21 07:01 | External Medical Summary ---
Author Name SANDRA HEBERT Organization K01:[facility], [address] [facility] [address] Support Name Relationship Address Phone SANDRA HEBERT FABIO PROV Unknown Unavailabl e Laboratory Report Ordering Provider Test Date Status FABIO FLORES MD 03/05/2012 14:18:00-0400 Final Obs # Observation Date Value ABNL Reference Status Pe rforming Location 1 Albumin 03/05/2012 22:36-0400 4.3 3.8-5.0 g/dL Final 2 AST (Aspartate aminotransferase) 03/05/2012 22:36-0400 27 10-35 U/L Final 3 Alk Phos 03/05/2012 22:36-0400 92 0-153 U/L Final 4 ALT (Alanine aminotransferase) 03/05/2012 22:36-0400 26 10-35 U/L Final 5 Bilirubin, Total 03/05/2012 22:36-0400 0.4 0.3-1.3 mg/dL Final 6 Bilirubin, Direct 03/05/2012 22:36-0400 0.1 0-0.3 mg/dL Final 7 Protein 03/05/2012 22:36-0400 5.9 L 6.0-8.3 g/dL Final
--- OUTSIDE RECORDS SUMMARY | 2023-01-21 07:01 | External Medical Summary ---
Author Name Unknown Address [address] [place] Phone Organization K01:[facility] [address] [facility] [place] [address] Laboratory Report Ordering Provider Test Date Status SANDRA MCCARTHY MD [id number] Final Obs # Observation Date Value Abnormality Reference Status Performing Location 0 WBC [id number] 6.22 4.00-10.80 Final [facility] [address] [facility] [address] 1 RBC [id number] 4.11 3.85-5.15 [facility] [address] [facility] [place] [address] 2 Hemoglobin [id number] 12.5 12.0-15.3 Final [facility] [address] [facility] [address] 3 HCT [id number] 38.5 36.0-45.2 [facility] [address] [facility] [address] 4 MCV [id number] 93.7 81.5-97.5 [facility] [address] [facility] [address] 5 MCH [id number] 30.4 27.0-34.0 [facility] [address] [facility] [facility] [place] [address] 6 MCHC [id number] 32.5 32.0-36.0 [facility] [address] [facility] [address] 7 RDW [id number] 17.8 Above high normal 11.5-15.5 [facility] [address] [facility] [place] [address] 8 Platelets [id number] 349 140-400 Final [facility] [address] [facility] [place] [address] 9 MPV [id number] 11.3 Above high normal 6.6-11.1 [facility] [address] [facility] [place] [address] 10 Segs [id number] 64 40-75 Final [facility] [address] [facility] [place] [address] 11 Lymphocytes [id number] 24 18-42 Final [facility] [address] [facility] 12 Monos [id number] 9 1-11 Final [facility] [address] [facility] 13 Eosinophils [id number] 1 0-6 Final [facility] [address] [facility] 14 Basos [id number] 1 0-2 Final [facility] [address] [facility] 15 IMMATURE GRANULOCYTE [id number] 1 0-2 Final [facility] [address] [facility] 16 Segmented Neutrophils, Abs [id number] 4.01 1.8-7.7 [facility] [address] [facility] 17 Lymphs, Abs [id number] 1.50 1.0-4.8 [facility] [address] [facility] 18 Monos, Abs [id number] 0.55 0.0-1.1 [facility] [address] [facility] 19 Eos, Abs [id number] 0.08 0.0-0.7 [facility] [address] [facility] 20 Basos, Abs [id number] 0.04 0.0-0.2 [facility] [address] [facility] 21 ABS. IMMATURE GRAN [id number] 0.04 0.0-0.2 [facility] [address] [facility]
--- OUTSIDE RECORDS SUMMARY | 2023-01-21 07:01 | External Medical Summary | Summary of Care ---
Author Name Unknown [place] [address] Care Team Providers Care Weaver Hand Name Role Phone John Melendez MD Primary Care Provider [phone] Encounter Details Date Type Department Care Team Description 07/23/2018 Scan Encounter Rheumatology [place] [address] [facility] [place] [address] Jez Sharpe MD [address] [facility] [place] [address] [phone] <No scans attached> Allergies Active Allergy Reactions Severity Noted Date Comments Nelson-2 Inhibitors Rash 03/30/2006 Codeine High 12/26/2010 Throat swells Ivp Dye Hives Medium 12/26/2002 Morphine And Related High 03/16/2003 Swells throat Sulfa Antibiotics Rash 12/26/2002 Tetracycline Rash 12/26/2002 Tramadol Hcl 06/20/2009 Severe constipation Nsaids 03/19/2009 Elevated serum creatinine. documented as of this encounter (statuses as of 10/06/2018) Medications Medication Sig Dispensed Refills Start Date [...] as of this encounter (statuses as of 10/06/2018) Active Problems Problem Noted Date CKD stage 4 secondary to hypertension DETECT Research Study*[id number] Overview: [facility] DETECT Study: Project # [id number], Print Shop Assistant: Antoni Ford, PhD. SUMMARY: Goal: Establish test [...] contact study staff at ; after hours Print Shop Assistant via the [facility] hospital well services operator . Hypothyroidism 02/24/2007 Psoriatic arthropathy 04/06/2003 Other psoriasis 12/26/2002 HTN, goal below 140/90 12/26/2002 GERD (gastroesophageal reflux disease) 0 12/26/2002 GENERAL OSTEOARTHROSIS 12/26/2002 documented as of this encounter (statuses as of 10/06/2018) Resolved Problems Problem Noted Date Resolved Date KIDNEY DZ,CHRONIC (GFR 30-59) STAGE III 12/14/19 10 09/22/2018 Overview: Per CKD Protocol, #1 documented as of this encounter (statuses as of 10/06/2018) Immunizations Name Dates Previously Given Next Due [...] Encounters Date Type Specialty Care Team Description 11/19/2018 Procedure Only [facility] Lam[facility] [address] [facility] [address] [phone] 01/11/2019 Office Visit Rheumatology Jez Sharpe MD [address] [place] [address] [phone] Health Maintenance Due Date Last Done Comments CKD URINE PROTEIN/CREATININE RATION OR URINE MICROALBUMIN YEARLY USE SMARTSET 60779 1963 BREAST CANCER SCREENING DISCUSSION YEARLY AGES [...] of this encounter Implants Implanted Type Area Epic Manager Device Identifier Shelf Expiration Date Model / Serial / Lot Lens 17.0 Mx60 - [id number] - [id number] Implanted:Qty: 1 on 09/01/2017 by Vic Mckee MD Right: Eye [employer]OM[employer] : SURGICAL 01/23/2020 MX60-17.0 / [id number] / [id number] Mx60 14.5 Envista Implanted:Qty: 1 on 09/29/2017 by Vic Mckee MD Left: Eye 01/23/2020 MX 60 14.5 / [id number] / [id number] documented as of this encounter Advance Directives Patient has advance care planning documents, and code status on file. For more information, please contact: SILVANA Koo [address] Latest Code Status on File Code Status Date Activated Date Inactivated Comments Full Code 09/29/2017 1:53 PM 09/29/2017 8:48 PM This or alejandro reflects the patients wishes and were consensually agreed upon. Full Code 09/01/2017 10:19 AM 09/01/2017 5:23 PM This order reflects the patients wishes and were consensually agreed upon.
--- OUTSIDE RECORDS SUMMARY | 2023-01-21 07:01 | External Medical Summary ---
Author Name SANDRA HEBERT Organization K01:[facility], [address] [facility] [address] Support Name Relationship Address Phone SANDRA HEBERT FABIO PROV Unknown Unavailabl e Laboratory Report Ordering Provider Test Date Status FABIO FLORES MD 06/07/2012 16:02:00-0500 Final Obs # Observation Date Value ABNL Reference Status Pe rforming Location 1 WBC 06/07/2012 22:20-0500 5.13 4.00-10.80 K/uL Final 2 RBC 06/07/2012 22:20-0500 3.86 3.85-5.15 M/uL Final 3 HGB 06/07/2012 22:20-0500 11.8 L 12.0-14.5 g/dL Final 4 HCT 06/07/2012 22:20-0500 36.0 36.0-44.5 % Final 5 MCV 06/07/2012 22:20-0500 93.3 81.5-97.5 fL Final 6 MCH 06/07/2012 22:20-0500 30.6 27.0-34.0 pg Final 7 MCHC 06/07/2012 22:20-0500 32.8 32.0-36.0 g/dL Final 8 RDW 06/07/2012 22:20-0500 16.0 H 11.5-15.5 % Final 9 PLT 06/07/2012 22:20-0500 257 140-400 K/uL Final 10 MPV 06/07/2012 22:20-0500 11.4 H 6.6-11.1 fL Final
--- OUTSIDE RECORDS SUMMARY | 2023-01-21 07:01 | External Medical Summary ---
Author Name Unknown Address [address] [place] Phone Organization K01:[facility] [address] [place] [id number] Laboratory Report Ordering Provider Test Date Status SANDRA MCCARTHY MD [id number] Final Obs # Observation Date Value Abnormality Reference Status Performing Location 0 Albumin [Mass/volume] in Serum or Plasma by Bromocresol green (BCG) dye binding method [id number] 3.9 3.8-5.0 Final [facility] [address] [facility] 1 AST (Aspartate aminotransferase) [id number] 21 10-35 Final [facility] [address] [facility] 2 Alk Phos [id number] 94 0-153 Final [facility] [address] [facility] 3 Alanine aminotransferase [Enzymatic activity/volume] in Serum or Plasma by With P-5'-P [id number] 28 10-35 [facility] [address] [facility] 4 Bilirubin, Total [id number] 0.6 0-1.2 Fi nal [facility] [address] [facility] 5 Bilirubin, Direct [id number] 0.1 0-0.3 F inal [facility] [address] [facility] 6 Protein [id number] 7.2 6.0-8.3 [facility] [address] [facility]
--- OUTSIDE RECORDS SUMMARY | 2023-01-21 07:01 | External Medical Summary | Summary of Care ---
Author Name Unknown Organization [place] [address] Care Team Providers Care Dipper Machine Operator Name Role Phone John Melendez MD Primary Care Provider [phone] Reason for Visit * Reason Comments NEW PATIENT Former Dr. 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 documented as of this encounter (statuses as of 09/22/2018) Medications Medication Sig Dispensed Refills Start Date [...] Ca & Phos-Vit D-Mag (POSTURE-D CALCIUM/MAGNESIUM ) [phone] TABS Take by mouth. 1 daily 0 [...] day. Apply to affected areas 0 Active XANAX 0.5 MG PO TABS 1 tab po every 12 hours 90 0 11/23/2006 09/22/2018 Discontinued CALCIUM 500 MG PO TABS 2 tabs po bid 0 11/15/2007 09/22/2018 Discontinue d EYE-AJ PLUS LUTEIN PO CAPS one capsule twice daily 0 09/22/2018 Discontinued folic acid 1 MG TabletIndications :Psoriatic arthropathy (HCC) 4 TABLETS DAILY but not day you take MTX 360 Tab 3 01/05/2015 09/22/2018 Discontinued METHOtrexate 2.5 MG Tablet 8 tablets once weekly 104 Tab 3 03/15/2015 09/22/2018 Discontinued diltiazem CD (CARDIZEM CD) 240 MG CP24 Take 1 Cap by mouth daily. 0 04/25/2015 09/22/2018 Discontinued ipratropium-albut selma (COMBIVENT RESPIMAT) 20-100 MCG/ACT Inhaler Inhale 1 Puff by mouth 2 times a day. 0 09/22/2018 Discontinued dicyclomine (BENTYL) 10 MG Capsule Take 10 mg by mouth 3 times a day. 0 09/22/2018 Discontinued LEVOXYL 88 MCG Tablet Take 1 Tab by mouth daily. 0 07/05/2015 09/22/2018 Discontinued Apremilast (OTEZLA) 30 MG TABS Take 1 Tab by mouth 2 times a day. 180 Tab 4 10/31/2016 09/22/2018 Discontinued documented as of this encounter (statuses as of 09/22/2018) Active Problems Problem Noted Date CKD stage 4 secondary to hypertension DETECT Research Study*[id number] Overview: [facility] [place] DETECT Study: Project # [id number], Carpenter Mold: Antoni Ford, PhD. SUMMARY: Goal: Establish test [...] contact study staff at ; after hours Carpenter Mold via the [facility] inclined railway operator . Hypothyroidism 02/24/2007 Psoriatic arthropathy 04/06/2003 Other psoriasis 12/26/2002 HTN, goal below 140/90 12/26/2002 GERD (gastroesophageal reflux disease) 0 12/26/2002 GENERAL OSTEOARTHROSIS 12/26/2002 documented as of this encounter (statuses as of 09/22/2018) Resolved Problems Problem Noted Date Resolved Date KIDNEY DZ,CHRONIC (GFR 30-59) STAGE III 12/14/19 10 09/22/2018 Overview: Per CKD Protocol, #1 documented as of this encounter (statuses as of 09/22/2018) Immunizations Name Dates Previously Given Next Due [...] Vital Signs Vital Sign Reading Time Taken Blood Pressure 112/74 09/22/2018 8:17 AM EDT Pulse - - Temperature 37.7 C (99.9 F) 09/22/2018 8 :17 AM EDT Respiratory Rate - - Oxygen Saturation - - Inhaled Oxygen Concentration - - Weight 99.3 kg (219 lb) 09/22/2018 8:17 AM EDT Height 180.3 cm (5' 11") 09/22/2018 8:1 7 AM EDT Body Mass Index 30.54 09/22/2018 8:17 AM EDT documented in this encounter Progress Notes * Jez Sharpe MD - 09/22/2018 8:45 AM EDT Reason for visit: Rheumatology consultation for PsA, OA Referring Provider: John Melendez MD HPI: Mike Carreon is here at the request of John Melendez MD for further evaluation of PsA, OA. Mike Carreon pmhx is listed below. She has been on otezla for severeal yrs now. She had seen Dr Granda in the past and then more recently Dr Box. Dr Box had stopped MTX and reduced otezla to once daily given worsening kidney disease. She now has stage 4 kidney disease. She reports some psoriasis on her right forearm. She feels otezla is helping the skin but not her arthritis. She is not having any swelling. She reports that she was placed on cymbalta for the pain and that has not helped much at all. She used some tramadol with no real benefit. She will add some tylenol to it and gets some relief. Cannot use NSAIDs given CKD stage 4. She is having left shoulder surgery September 30 - this will be a joint replacement. No real am stiffness or swelling. The biggest issue is pain in her hands, feet, neck. She reports a turmor in her neck that she reports it being wached by neurosurgery. She has not been seen in 2 yrs. No numbness or radicular symptoms. She also has tried and failed gabapentin. Musculoskeletal ROS: . Abnormal: joint pain and neck pain . AM stiffness (hours): 0 . Pain scale (0-10): 5 Other ROS: . Constitutional: hair loss . Head normal . Eyes: normal . Ears, nose, throat, mouth: nasal congestion . Cardiovascular: normal . Respiratory: normal . Gastrointestinal: heartburn and constipation . Genitourinary: normal . Skin: normal All other ROS reviewed and negative Outpatient Medications Marked as Taking for the 09/22/18 encounter (Office Visit) with Jez Sharpe MD Medication Sig Apremilast (OTEZLA) 30 MG TABS Take 30 mg by mouth. 1 daily benzonatate (TESSALON PERLES) 100 MG Capsule Take 100 mg by mouth 2 times a day as needed for Cough. Ca & Phos-Vit D-Mag (POSTURE-D CALCIUM/MAGNESIUM) [phone] TABS Take by mouth. 1 daily Calcipotriene [...] Tablet Take 1 Tab by mouth daily. spironolactone (ALDACTONE) 25 MG Tablet 25 mg 2 times a day. daily FISH OIL 1000 MG PO CAPS one capsule twice daily CLOBETASOL PROPIONATE 0.05 % EX CREA Apply to affected area twice daily as needed for flares VITAMIN D 1000 UNIT PO CAPS 1 tab by mouth daily Past Medical History: Diagnosis Date Generalized osteoarthritis GERD (gastroesophageal reflux disease) HTN, goal below 140/90 Other psoriasis Past Surgical History: Procedure Laterality Date REMOVE CATARACT, INSERT LENS PROSTH Right 09/01/2017 right EXTRACAPSULAR CATARACT REMOVAL WITH INTRAOCULAR LENS performed by Vic Mckee MD at OR [facility] REMOVE CATARACT, INSERT LENS PROSTH Left 09/29/2017 left EXTRACAPSULAR CATARACT REMOVAL WITH INTRAOCULAR LENS performed by Vic Mckee MD at OR [facility] TOTAL ABD HYSTERECTOMY W/WO REMOVAL OF TUBE(S) 1983 Family History Problem Relation Age of Onset Hypertension Mother Hypertension Father Hypertension Sister Hypertension Brother Hypertension Brother Arthritis Brother osteo Arthritis Brother osteo Cancer Father lung, heavy smoker Social History Social History Tobacco Use Smoking status: Former Smoker Last attempt to quit: 07/15/1972 Years since quittin.2 Smokeless tobacco: Never Used Substance Use Topics Alcohol use: Yes Comment: rare Drug use: No Physical Exam Filed Vitals: 09/22/18 0817 BP: 112/74 Temp: 37.7 C (99.9 F) TempSrc: Tympanic Weight: 99.3 kg (219 lb) Height: 1.803 m (5' 11") General: alert, healthy, no distress and well nourished Lymph: no palpable lymphadenopathy Heart: regular rate & rhythm and no gallops Lungs: clear to auscultation , no rales, wheezes or rhonchi Abdomen: abdomen soft, non-tender and normal bowel sounds Extremities: no clubbing, no cyanosis Skin: skin color, texture, turgor are normal, small amount of psoriasis noted right elbow Musculoskeletal Exam: First CMC arthritis noted bilaterally with tenderness on the left side No synovitis or dactylitis noted MTP squeeze tenderness bilaterally No effusions Assessment (L40.50) Psoriatic arthropathy (HCC) (primary encounter diagnosis) (I12.9, N18.4) 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 My feeling is that she might be more dealing with secondary osteoarthritis/primary osteoarthritis painsthan psoriatic arthritis. She has upcoming surgery and will stop Otezla prior to surgery and then continue off of it to see if she even needs biologic therapy at this point. If her skin disease does not worsen can just use topical therapies. If her inflammatory arthritis returns can resume Otezla. Treating her arthritis pains will be extremely difficult given her chronic kidney disease stage 4 and limited treatment options. She reported some benefit with combination of tramadol and Tylenol and her PCP could consider using ultracet instead. Could also consider changing Cymbalta to either Effexor or Savella. Would be cautious using these agents though along with Lyrica given her chronic kidney disease. Would likely need to discuss with her structural biologist. Plan 1. Stop Otezla especially given upcoming surgery and continue to stay off after surgery 2. Contact in 1 month with update 3. PCP may consider her tramadol with Tylenol given better response with combination treatment 4. Possibly consider changing Cymbalta to Effexor 5. Thank you for the consult and involving me in this patient's care. 6. Copy of today's note to Dr Melendez, Dr Stevenson 7. Follow up in 3-4 months Jez Sharpe MD Department of Rheumatology [facility] [phone] documented in this encounter Nursing Notes * Salma Esqueda LPN - 09/22/2018 8:19 AM EDT Chief Complaint Patient presents with NEW PATIENT Former Dr. Box pt seen for Psoriatic Arthritis with multiple joint pain documented in this encounter Plan of Treatment Upcoming Encounters Date Type Specialty Care Team Description 01/11/2019 Office Visit Rheumatology Jez Sharpe MD [address] [place] [address] [phone] Health Maintenance Due Date Last Done Comments CKD URINE PROTEIN/CREATININE RATION OR URINE MICROALBUMIN YEARLY USE SMARTSET 54196 1963 BREAST CANCER SCREENING DISCUSSION YEARLY AGES [...] of this encounter Implants Implanted Type Area Family Welfare Social Work Professor Device Identifier Shelf Expiration Date Model / Serial / Lot Lens 17.0 Mx60 - [id number] - [id number] Implanted:Qty: 1 on 09/01/2017 by Vic Mckee MD Right: Eye [employer]OM[employer] : SURGICAL 01/23/2020 MX60-17.0 / [id number] / [id number] Mx60 14.5 Envista Implanted:Qty: 1 on 09/29/2017 by Vic Mckee MD Left: Eye 01/23/2020 MX 60 14.5 / [id number] / [id number] documented as of this encounter Visit Diagnoses Diagnosis Psoriatic arthropathy (HCC)- Primary Psoriatic arthropathy 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 For more information, please contact: SILVANA Koo [address] Latest Code Status on File Code Status Date Activated Date Inactivated Comments Full Code 09/29/2017 1:53 PM 09/29/2017 8:48 PM This or alejandro reflects the patients wishes and were consensually agreed upon. Full Code 09/01/2017 10:19 AM 09/01/2017 5:23 PM This order reflects the patients wishes and were consensually agreed upon.
--- OUTSIDE RECORDS SUMMARY | 2023-01-21 07:01 | External Medical Summary | Summary of Care ---
Author Name Unknown Organization [place] [address] Phone Care Team Providers Care Auricular Therapist Name Role Phone John Melendez MD Primary Care Provider [phone] Reason for Visit * Reason Comments Research Study Patient Detect Consenting Encounter Details Date Type Department Care Team Description 09/03/2017 Office Visit Research, [facility] [address] [place] [address] Team, Jamie [facility] Study [address] [place] [address] [phone] DETECT Research Study*[id number]* Allergies Active Allergy Reactions Severity Noted Date Comments Codeine High 12/26/2010 Throat swells Morphine And Related High 03/16/2003 Swells throat Ivp Dye Hives Medium 12/26/2002 Nelson-2 Inhibitors Rash 03/30/2006 Sulfa Antibiotics Rash 12/26/2002 Tetracycline Rash 12/26/2002 Tramadol Hcl 06/20/2009 Severe constipation Nsaids 03/19/2009 Elevated serum creatinine. as of this encounter Medications Prescription Sig. Disp. Refills Start Date End Date Status XANAX [...] MG PO CAPS one capsule twice daily Active EYE-AJ PLUS LUTEIN PO CAPS one capsule twice daily Active spironolactone (ALDACTONE) 25 MG Tablet 25 mg 2 times a day. daily Active Potassium Chloride [facility] 20 MEQ TBCR 1 twice daily 12/04/2014 Ac tive nitroglycerin 0.4 MG/SPRAY spray As needed 11/22/2014 Active PredniSONE (DELTASONE) 5 MG TabletIndications:Pso [...] spray Administer 2 Sprays into nostril daily. 07/02/2015 Active diltiazem CD (CARDIZEM CD) 240 MG CP24 Take 1 Cap by mouth daily. 04/25/2015 Active ipratropium-albuterol (COMBIVENT RESPIMAT) 20-100 MCG/ACT Inhaler Inhale 1 Puff by mouth 2 times a day. Active dicyclomine (BENTYL) 10 MG Capsule Take 10 mg by mouth 3 times a day. Active Magnesium 400 MG Capsule Take 800 mg by mouth daily. Active Cetirizine HCl (ZYRTEC ALLERGY) 10 MG Capsule Take 10 mg by mouth daily. Active LEVOXYL 88 MCG Tablet Take 1 Tab by mouth daily. 07/05/2015 Active Apremilast (OTEZLA) 30 MG TABS Take 1 Tab by mouth 2 times a day. 180 Tab 4 10/31/2016 Active aspirin enteric coated 81 MG TBEC Take 81 mg by mouth daily. Active pantoprazole (PROTONIX) 40 MG Pack Take 40 mg by mouth daily. Active as of this encounter Active Problems Problem Noted Date DETECT Research Study*[id number] Overview: [facility] DETECT Study: Project # [id number], Java Software: Antoni Ford, PhD. SUMMARY: Goal: Establish test [...] study staff at ; after hours Java Software via the [facility] log stacker operator . KIDNEY DZ,CHRONIC (GFR 30-59) STAGE III 12/13/2009 Overview: Per CKD Protocol, #1 Hypothyroidism 02/24/2007 Psoriatic arthropathy (HCC) 04/06/2003 Other psoriasis 12/26/2002 HTN, goal below 140/90 12/26/2002 GERD (gastroesophageal reflux disease) 0 12/26/2002 GENERAL OSTEOARTHROSIS 12/26/2002 as of this encounter Immunizations Name Dates Previously Given Next Due DT - Diptheria/Tetanus (PEDS) 12/12/2009 H1N1 2009 Influenza, IM 06/08/2009 PPD 09/07/2008 Pneumococcal Polyvalent Vacc (Pneumovax) 06/02/2007,2002 Seasonal Influenza, Trivalen t, with Preserve, 3yr & Above, Split 03/05/2012,06/03/2009,04/03/2009,12/2008,03/13/2007,03/30/2006 as of this encounter Social History Tobacco Use Types Packs/Day Years Used Date Former Smoker Quit: 07/15 Smokeless Tobacco: Never Used Alcohol Use Drinks/Week oz/Week Comments Yes rare Sex Assigned at Date Recorded Not on file as of this encounter Progress Notes * Matilda Carr RN - 09/03/2017 4:51 PM EDT Mike Vergara is a 72 year old female who is being seen today for possible entry into the DETECT study (Detecting Cancers Earlier Through Elective Mutation-Based Blood Collection and Testing). Informed Consent The consent document for the DETECT study was thoroughly discussed with the patient. Mike Vergara read the consent document and had the opportunity to ask questions regarding the study. All questions were answered to the satisfaction of the patient. Mike Vergara desires to enter the study and signed the IRB-approved consent form, version 07/21/2017 on 09/03/2017 @ 0745 prior to any study procedures. The consent form can be referenced in the following locations: The original signed consent form is located in the patient's research study file. The signed consent form will be scanned into the patient's medical record in [facility]. A copy of the signed consent form was given to the patient. Inclusion/ Exclusion Criteria Were the Inclusion/Exclusion criteria reviewed and documented on the Inclusion Exclusion sheet? Yes [facility] Problem List Was the study added to the subjects Problem List (without a description/overview) in [facility]? Yes Instructions The subject was provided with the following instructions: ? A future visit may be scheduled based on these results. in this encounter Plan of Treatment Upcoming Encounters Date Type Specialty Care Team Description 09/17/2017 Surgery Operating Room Vic Dai MD [address] [address] [phone] left EXTRACAPSULAR CATARACT REMOVAL WITH INTRAOCULAR LENS 09/17/2017 Hospital Encounter Operating Room iVc Dai MD [address] [place] [address], [place] [address] [phone] Health Maintenance Due Date Last Done Comments CKD LDL USE SMARTSET 44820 ( STAGE 3) [place] [address] (STAGE 4) 1963 CKD PHOS USE SMARTSET 19986 1963 CKD URINE PROTEIN/CREATININE RATION OR URINE MICROALBUMIN YEARLY USE SMARTSET 37208 1963 BREAST CANCER SCREENING DISC USSION YEARLY AGES 40-75 1986 DIABETES SCREEN EVERY 3 YRS- AGE 45 AND ABOVE 10/16/2008 10/16/2005 PNEUMOCOCCAL ADULT 65 YRS AN D OVER (1 of 2 - PCV13) 2011 06/02/2007, 2002 *URINE PROTEIN ONCE FOR HTN-DIPSTICK ACCEPTABLE 05/17/2014 *BASELINE EKG FOR HTN 05/24/2014 *TSH FOR THYROID MEDICATION MONITORING YEARLY 05/24/2014 *BASIC METABOLIC PANEL (BMP) FOR HTN YEARLY 05/30/2014 *ADVANCE DIRECTIVE NOT ON FILE 10/09/2014 *DEPRESSION SCREENING, JRUA Bernardo FOR PTS 18 AND OVER 10/09/2014 CKD GFR USE SMARTSET 01183 01/30/201607/29, 01/05/2015, 10/09/2014, Additional history exists CKD HGB USE SMARTSET 41521 07/29/201607/29, 01/05/2015, 10/09/2014, Additional history exists Influenza Vaccine (FLU shot) (#1) 2016 03/05/2012, 06/03/2009, 04/03/2009, Additional history exists DXA-SCREENING EVERY 7 YRS-US E SMARTSET# 3348 TO ORDER 12/26/2017 12/26/2010, 11/23/2007, 11/23/2007, Additional history exists DTaP,Tdap,and Td Vaccines (2 - Tdap) 12/13/2019 12/12/2009 as of this encounter Implants Implanted Type Area Burling And Joining Supervisor Device Identifier Expiration Date Model / Serial / Lot Lens 17.0 Mx60 - [id number] - [id number] Implanted:Qty: 1 on 09/01/2017 by Vic Mckee MD Right: Eye BAUSCH & LOMB : SURGICAL 01/23/2020 MX60-17.0 / [id number] / [id number] as of this encounter Visit Diagnoses Diagnosis DETECT Research Study*[id number] - Primary in this encounter Insurance Payer Benefit Plan / Group Subscriber ID Type Phone Address MEDICARE REPLACEMENT [employer] PPO [id number] Medicar e as of this encounter
--- OUTSIDE RECORDS SUMMARY | 2023-01-21 07:01 | External Medical Summary ---
Author Name Unknown Address [address] [place] [id number] Phone Organization K01:[facility] [address] [place] [address] Laboratory Report Ordering Provider Test Date Status SANDRA MCCARTHY MD [id number] Final Obs # Observation Date Value Abnormality Reference Status Performing Location 0 Albumin [Mass/volume] in Serum or Plasma by Bromocresol green (BCG) dye binding method [id number] 4.4 3.8-5.0 Final [facility] [address] [facility] 1 AST (Aspartate aminotransferase) 646156756074 24 10-35 Final [facility] [address] [facility] [address] 2 Alk Phos [id number] 91 0-153 Final [facility] [address] [facility] 3 Alanine aminotransferase [Enzymatic activity/volume] in Serum or Plasma by With P-5'-P [id number] 29 10-35 Final [facility] [address] [facility] 4 Bilirubin, Total [id number] 0.4 0-1.2 Fi [facility] [address] [facility] 5 Bilirubin, Direct [id number] <0.2 0-0.3 F inal [facility] [address] [facility] 6 Protein [id number] 6.6 6.0-8.3 Final [facility] [address] [facility]
--- OUTSIDE RECORDS SUMMARY | 2023-01-21 07:01 | External Medical Summary | Summary of Care ---
Author Name Unknown Organization [place] [address] Care Team Providers Care Patient Care Technician Name Role Phone John Melendez MD Primary Care Provider [phone] Reason for Visit * Reason Comments Referral EUS Encounter Details Date Type Department Care Team Description 09/24/2018 Telephone Gastroenterology, [facility] [address] [place] [address] John Melendez MD [address] [facility] [address] [place] [address] [phone] Referral (EUS ) Allergies Active Allergy Reactions Severity Noted Date Comments Nelson-2 Inhibitors Rash 03/30/2006 Codeine High 12/26/2010 Throat swells Ivp Dye Hives Medium 12/26/2002 Morphine And Related High 03/16/2003 Swells throat Sulfa Antibiotics Rash 12/26/2002 Tetracycline Rash 12/26/2002 Tramadol Hcl 06/20/2009 Severe constipation Nsaids 03/19/2009 Elevated serum creatinine. documented as of this encounter (statuses as of 09/27/2018) Medications Medication Sig Dispensed Refills Start Date [...] Active Ca & Phos-Vit D-Mag (POSTURE-D CALCIUM/MAGNESIUM) [phone] TABS Take by mouth. 1 daily 0 [...] as of this encounter (statuses as of 09/27/2018) Active Problems Problem Noted Date CKD stage 4 secondary to hypertension DETECT Research Study*[id number] Overview: [facility] DETECT Study: Project # [id number], Tester Waste Disposal Leakage: Antoni Ford, PhD. SUMMARY: Goal: Establish test [...] contact study staff at ; after hours Tester Waste Disposal Leakage via the [facility] power plant operators supervisor . Hypothyroidism 02/24/2007 Psoriatic arthropathy 04/06/2003 Other psoriasis 12/26/2002 HTN, goal below 140/90 12/26/2002 GERD (gastroesophageal reflux disease) 0 12/26/2002 GENERAL OSTEOARTHROSIS 12/26/2002 documented as of this encounter (statuses as of 09/27/2018) Resolved Problems Problem Noted Date Resolved Date KIDNEY DZ,CHRONIC (GFR 30-59) STAGE III 12/14/19 10 09/22/2018 Overview: Per CKD Protocol, #1 documented as of this encounter (statuses as of 09/27/2018) Immunizations Name Dates Previously Given Next Due [...] encounter Miscellaneous Notes * Telephone Encounter - Messi Cardona OSA - 09/27/2018 2:20 PM EDT LMhome# for pt to return call. * Telephone Encounter - Clemencia Lam DO - 09/27/2018 1:18 PM EDT Direct to EUS, routine (within 6 weeks) with either Dr. Bustos or Genaro * Telephone Encounter - Alyssa Jain OSA - 09/24/2018 1:58 PM EDT Received fax from PCP office requesting an EUS for the patient. DX submucosal nodules BMI 31.28 Records in scanning and demographics updated. documented in this encounter Plan of Treatment Upcoming Encounters Date Type Specialty Care Team Description 01/11/2019 Office Visit Rheumatology Jez Sharpe MD [facility] [place] [address] [phone] Health Maintenance Due Date Last Done Comments CKD URINE PROTEIN/CREATININE RATION OR URINE MICROALBUMIN YEARLY USE SMARTSET 57725 1963 BREAST CANCER SCREENING DISCUSSION YEARLY AGES [...] of this encounter Implants Implanted Type Area Caterers Helper Device Identifier Shelf Expiration Date Model / Serial / Lot Lens 17.0 Mx60 - [id number] - [id number] Implanted:Qty: 1 on 09/01/2017 by Vic Mckee MD Right: Eye BAUSCH [employer] LOMB : SURGICAL 01/23/2020 MX60-17.0 / [id number] / [id number] Mx60 14.5 Envista Implanted:Qty: 1 on 09/29/2017 by Vic Mckee MD Left: Eye 01/23/2020 MX 60 14.5 / [id number] / [id number] documented as of this encounter Advance Directives Patient has advance care planning documents, and code status on file. For more information, please contact: [place] [address] Latest Code Status on File Code Status Date Activated Date Inactivated Comments Full Code 09/29/2017 1:53 PM 09/29/2017 8:48 PM This or alejandro reflects the patients wishes and were consensually agreed upon. Full Code 09/01/2017 10:19 AM 09/01/2017 5:23 PM This order reflects the patients wishes and were consensually agreed upon.
--- OUTSIDE RECORDS SUMMARY | 2023-01-21 07:01 | External Medical Summary ---
Author Name SANDRA HEBERT Organization K01:[facility] [address], [address] [place] [id number] Support Name Relationship Address Phone FABIO FLORES MD PROV Unknown Unavailabl e Laboratory Report Ordering Provider Test Date Status FABIO FLORES MD 03/05/2012 14:18:00-0400 Final Obs # Observation Date Value ABNL Reference Status Pe rforming Location 1 Creatinine 03/05/2012 22:36-0400 1.2 0.5-1.2 mg/dL Final GFR should be used to assess renal function. Plasma/Serum creatinine may not be able to properly reflect renal function in some cases.
--- OUTSIDE RECORDS SUMMARY | 2023-01-21 07:01 | External Medical Summary ---
Author Name SANDRA HEBERT Organization K01[facility], [address] [facility] [address] Support Name Relationship Address Phone SANDRA HEBERT FABIO PROV Unknown Unavailabl e Laboratory Report Ordering Provider Test Date Status FABIO FLORES MD 06/07/2012 16:02:00-0500 Final Obs # Observation Date Value ABNL Reference Status Pe rforming Location 1 Albumin 06/07/2012 23:12-0500 3.7 L 3.8-5.0 g/dL Final 2 AST (Aspartate aminotransferase) 06/07/2012 23:12-0500 25 10-35 U/L Final 3 Alk Phos 06/07/2012 23:12-0500 69 0-153 U/L Final 4 ALT (Alanine aminotransferase) 06/07/2012 23:12-0500 30 10-35 U/L Final 5 Bilirubin, Total 06/07/2012 23:12-0500 0.2 L 0.3-1.3 mg/dL Final 6 Bilirubin, Direct 06/07/2012 23:12-0500 0.1 0-0.3 mg/dL Final 7 Protein 06/07/2012 23:12-0500 5.5 L 6.0-8.3 g/dL Final
--- OUTSIDE RECORDS SUMMARY | 2023-01-21 07:01 | External Medical Summary ---
Author Name Unknown Address [address] [place] [address] Phone Organization K01:[facility] [address] [facility] [address] Laboratory Report Ordering Provider Test Date Status SANDRA MCCARTHY MD [id number] Final Obs # Observation Date Value Abnormality Reference Status Performing Location 0 WBC [id number] 5.66 4.00-10.80 [facility] [address] [facility] [address] 1 RBC [id number] 4.01 3.85-5.15 [facility] [address] [facility] [address] 2 Hemoglobin 667665131574 12.2 12.0-15.3 [facility] [address] [facility] [address] 3 HCT [id number] 38.2 36.0-45.2 [facility] [address] [facility] [address] 4 MCV [id number] 95.3 81.5-97.5 [facility] [address] [facility] [address] 5 MCH [id number] 30.4 27.0-34.0 [facility] [address] [facility] [address] 6 MCHC [id number] 31.9 Below low normal 32.0-36.0 [facility] [address] [facility] [address] 7 RDW [id number] 16.8 Above high normal 11.5-15.5 [facility] [address] [facility] [address] 8 Platelets [id number] 323 140-400 [facility] [address] [facility] [address] 9 MPV [id number] 11.4 Above high normal 6.6-11.1 [facility] [address] [facility] [address] 10 Segs [id number] 66 40-75 Final [facility] [address] [facility] [address] 11 Lymphocytes 116999051905 27 18-42 Final [facility] [address] [facility] 12 Monos [id number] 5 1-11 Final [facility] [address] [facility] 13 Eosinophils [id number] 1 0-6 Final [facility] [address] [facility] 14 Basos [id number] 1 0-2 Final [facility] [address] [facility] 15 Segmented Neutrophils, Abs [id number] 3.74 1.8-7.7 Final [facility] [address] [facility] 16 Lymphs, Abs [id number] 1.54 1.0-4.8 Final [facility] [address] [facility] 17 Monos, Abs [id number] 0.27 0.0-1.1 Final [facility] [address] [facility] 18 Eos, Abs [id number] 0.06 0.0-0.7 Final [facility] [address] [facility] 19 Basos, Abs [id number] 0.03 0.0-0.2 Final [facility] [address] [facility]
--- OUTSIDE RECORDS SUMMARY | 2023-01-21 07:01 | External Medical Summary ---
Author Name SANDRA HEBERT Organization K01:[facility], [address] [facility] [address] Support Name Relationship Address Phone SANDRA HEBERT FABIO PROV Unknown Unavailabl e Laboratory Report Ordering Provider Test Date Status FABIO FLORES MD 03/05/2012 14:18:00-0400 Final Obs # Observation Date Value ABNL Reference Status Pe rforming Location 1 WBC 03/05/2012 21:310400 5.51 4.00-10.80 K/uL Final 2 RBC 03/05/2012 21:0400 4.19 3.85-5.15 M/uL Final 3 HGB 03/05/2012 21:31-0400 12.6 12.0-14.5 g/dL Final 4 HCT 03/05/2012 21:0400 37.8 36.0-44.5 % Final 5 MCV 03/05/2012 21:31-0400 90.2 81.5-97.5 fL Final 6 MCH 03/05/2012 21:31-0400 30.1 27.0-34.0 pg Final 7 MCHC 03/05/2012 21:31-0400 33.3 32.0-36.0 g/dL Final 8 RDW 03/05/2012 21:31-0400 14.9 11.5-15.5 % Final 9 PLT 03/05/2012 21:31-0 274 140-400 K/uL Final 10 MPV 03/05/2012 21:31-0400 11.6 H 6.6-11.1 fL Final
--- OUTSIDE RECORDS SUMMARY | 2023-01-21 07:01 | External Medical Summary | Summary of Care ---
Author Name Unknown Organization [place] [address] Care Team Providers Care Quahogger Name Role Phone John Melendez MD Primary Care Provider [phone] Encounter Details Date Type Department Care Team Description 10/07/2018 Result Scan Rheumatology [facility] [address] [facility] [place] [address] eJz Sharpe MD [address] [facility] [place] [address] [phone] <No scans attached> Allergies Active Allergy Reactions Severity Noted Date Comments Nelson-2 Inhibitors Rash 03/30/2006 Codeine High 12/26/2010 Throat swells Ivp Dye Hives Medium 12/26/2002 Morphine And Related High 03/16/2003 Swells throat Sulfa Antibiotics Rash 12/26/2002 Tetracycline Rash 12/26/2002 Tramadol Hcl 06/20/2009 Severe constipation Nsaids 03/19/2009 Elevated serum creatinine. documented as of this encounter (statuses as of 11/18/2018) Medications Medication Sig Dispensed Refills Start Date [...] Active Ca & Phos-Vit D-Mag (POSTURE-D CALCIUM/MAGNESIUM) [phone] TABS Take by mouth. 1 daily 0 [...] as of this encounter (statuses as of 11/18/2018) Active Problems Problem Noted Date CKD stage 4 secondary to hypertension DETECT Research Study*[id number] Overview: [facility] DETECT Study: Project # [id number], Principal Android Developer: Antoni Ford, PhD. SUMMARY: Goal: Establish [...] contact study staff at ; after hours Principal Android Developer via the [facility] hospital car retarder operator . Hypothyroidism 02/24/2007 Psoriatic arthropathy 04/06/2003 Other psoriasis 12/26/2002 HTN, goal below 140/90 12/26/2002 GERD (gastroesophageal reflux disease) 0 12/26/2002 GENERAL OSTEOARTHROSIS 12/26/2002 documented as of this encounter (statuses as of 11/18/2018) Resolved Problems Problem Noted Date Resolved Date KIDNEY DZ,CHRONIC (GFR 30-59) STAGE III 12/14/19 10 09/22/2018 Overview: Per CKD Protocol, #1 documented as of this encounter (statuses as of 11/18/2018) Immunizations Name Administration Dates Next Due DT [...] 11/19/2018 Procedure Only Endoscopy Clemencia Lam, [address] [place] [address] [phone] 01/11/2019 Office Visit Rheumatology Jez Sharpe MD [address] [facility] [place] [address] [phone] Health Maintenance Due Date Last Done Comments CKD URINE PROTEIN/CREATININE RATION OR URINE MICROALBUMIN YEARLY USE SMARTSET 40187 1963 BREAST CANCER SCREENING DISCUSSION YEARLY AGES [...] of this encounter Implants Implanted Type Area Contact Lens Technician Device Identifier Shelf Expiration Date Model / Serial / Lot Lens 17.0 Mx60 - [id number] - [id number] Implanted:Qty: 1 on 09/01/2017 by Vic Mckee MD at [facility] Right: Eye BAUSCH [employer] LOMB : SURGICAL 01/23/2020 MX60-17.0 / [id number] / [id number] Mx60 14.5 Envista Implanted:Qty: 1 on 09/29/2017 by Vic Mckee MD at [facility] Left: Eye 01/23/2020 MX 60 14.5 / [id number] / [id number] documented as of this encounter Procedures Procedure Name Priority Date/Time Associated Diagnosis Comments OUTSIDE LAB RESULTS 10/07/2018 documented in this encounter Results * OUTSIDE LAB RESULTS (10/07/2018) Specimen Narrative Performed At documented in this encounter Advance Directives Documents on File Type Date 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
--- OUTSIDE RECORDS SUMMARY | 2023-01-21 07:01 | External Medical Summary ---
Author Name SANDRA HEBERT Organization K01:[facility], [address] [place] [address] Support Name Relationship Address Phone FABIO FLORES MD PROV Unknown Unavailabl e Laboratory Report Ordering Provider Test Date Status FABIO FLORES MD 06/07/2012 16:02:00-0500 Final Obs # Observation Date Value ABNL Reference Status Pe rforming Location 1 Creatinine 06/07/2012 23:12-0500 1.2 0.5-1.2 mg/dL Final GFR should be used to assess renal function. Plasma/Serum creatinine may not be able to properly reflect renal function in some cases.
--- OUTSIDE RECORDS SUMMARY | 2023-01-21 07:01 | External Medical Summary | Summary of Care ---
Author Name Unknown Organization [place] [address] Care Team Providers Care Box Blank Machine Operator Helper Name Role Phone John Melendez MD Primary Care Provider Reason for Visit * Reason Comments Referral EUS Encounter Details Date Type Department Care Team Description 09/24/2018 Telephone Gastroenterology, [facility] [address] [facility] [place] [address] John Melendez MD [address] [facility] [address] [place] [address] [phone] Referral (EUS ) Allergies Active Allergy Reactions Severity Noted Date Comments Nelson-2 Inhibitors Rash 03/30/2006 Codeine High 12/26/2010 Throat swells Ivp Dye Hives Medium 12/26/2002 Morphine And Related High 03/16/2003 Swells throat Sulfa Antibiotics Rash 12/26/2002 Tetracycline Rash 12/26/2002 Tramadol Hcl 06/20/2009 Severe constipation Nsaids 03/19/2009 Elevated serum creatinine. documented as of this encounter (statuses as of 09/28/2018) Medications Medication Sig Dispensed Refills Start Date [...] Active Ca & Phos-Vit D-Mag (POSTURE-D CALCIUM/MAGNESIUM) [phone] TABS Take by mouth. 1 daily 0 [...] as of this encounter (statuses as of 09/28/2018) Active Problems Problem Noted Date CKD stage 4 secondary to hypertension DETECT Research Study*[id number] Overview: Walter Lebron DETECT Study: Project # [id number], Foil Wrapper: Antoni Ford, PhD. SUMMARY: Goal: Establish test [...] contact study staff at ; after hours Foil Wrapper via the [facility] hospital dish machine operator . Hypothyroidism 02/24/2007 Psoriatic arthropathy 04/06/2003 Other psoriasis 12/26/2002 HTN, goal below 140/90 12/26/2002 GERD (gastroesophageal reflux disease) 0 12/26/2002 GENERAL OSTEOARTHROSIS 12/26/2002 documented as of this encounter (statuses as of 09/28/2018) Resolved Problems Problem Noted Date Resolved Date KIDNEY DZ,CHRONIC (GFR 30-59) STAGE III 12/14/19 10 09/22/2018 Overview: Per CKD Protocol, #1 documented as of this encounter (statuses as of 09/28/2018) Immunizations Name Dates Previously Given Next Due [...] Telephone Encounter - Alyssa Jain OSA - 09/28/2018 10:00 AM EDT Patient is scheduled and aware of appointment on 11/[address] Lam at [facility] due to stage 4 kidneydisease. Letter and instructions sent to the patient. Thank you * Telephone Encounter - Messi Cardona OSA [...] Team Description 11/19/2018 Procedure Only Endoscopy Clemencia Lam DO [address] [place] [address] [phone] 01/11/2019 Office Visit Rheumatology Jez Sharpe MD [facility] [place] [address] [phone] Health Maintenance Due Date Last Done Comments CKD URINE PROTEIN/CREATININE RATION OR URINE MICROALBUMIN YEARLY USE SMARTSET 54406 1963 BREAST CANCER SCREENING DISCUSSION YEARLY AGES [...] of this encounter Implants Implanted Type Area Greenskeeper Supervisor Device Identifier Shelf Expiration Date Model / Serial / Lot Lens 17.0 Mx60 - [id number] - [id number] Implanted:Qty: 1 on 09/01/2017 by Vic Mckee MD Right: Eye [employer] : SURGICAL 01/23/2020 MX60-17.0 / [id number] / [id number] Mx60 14.5 [employer]ista Implanted:Qty: 1 on 09/29/2017 by Vic Mckee MD Left: Eye 01/23/2020 MX 60 14.5 / [id number] / [id number] documented as of this encounter Advance Directives Patient has advance care planning documents, and code status on file. For more information, please contact: [place] Koo [address] Latest Code Status on File Code Status Date Activated Date Inactivated Comments Full Code 09/29/2017 1:53 PM 09/29/2017 8:48 PM This or alejandro reflects the patients wishes and were consensually agreed upon. Full Code 09/01/2017 10:19 AM 09/01/2017 5:23 PM This order reflects the patients wishes and were consensually agreed upon.
--- OUTSIDE RECORDS SUMMARY | 2023-01-21 07:01 | External Medical Summary ---
Author Name Unknown Address [address] [phone] Phone Organization K01:[facility] [address] [id number] Laboratory Report Ordering Provider Test Date Status SANDRA MCCARTHY MD [id number] Final Obs # Observation Date Value Abnormality Reference Status Performing Location 0 Creatinine [id number] 1.8 Above high normal 0.5-1.0 Final [facility] [address] [facility] [address]
--- OUTSIDE RECORDS SUMMARY | 2023-01-21 07:02 | External Medical Summary ---
Author Name Unknown Organization K09:[facility] ana lilia [facility] [address] , [place] [address] Support Name Relationship Address Phone DOUG FRAGANPKIMBERLEE PROV Unknown Unav ailable Laboratory Report Ordering Provider Test Date Status DOUG RUFFKIMBERLEE S 10/17/2010 10:31-0400 Fi nal Obs # Observation Date Value ABNL Reference Status Pe rforming Location 1 Creatinine 10/17/2010 12:24-0400 1.1 0.7-1.5 mg/dL Final 2 GFR / 1.73 sq M.predicted 10/17/2010 12:24-0400 50.0 L >60 mL/min Final
--- OUTSIDE RECORDS SUMMARY | 2023-01-21 07:02 | External Medical Summary ---
Author Name Unknown Organization K01:[facility], [address] [id number] Support Name Relationship Address Phone KIMBERLEE MONZON PROV Unknown Unav ailable Laboratory Report Ordering Provider Test Date Status KIMBERLEE MONZON 10/17/2010 10:31-0400 nal Obs # Observation Date Value ABNL Reference Status Pe rforming Location 1 TSH 10/17/2010 19:59-0400 2.57 0.27-4.2 uIU/mL Final
--- OUTSIDE RECORDS SUMMARY | 2023-01-21 07:02 | External Medical Summary ---
Author Name Unknown Organization [facility] tem Support Name Relationship Address Phone Unavailable PROV Unknown Unavailable Laboratory Report Ordering Provider Test Date Status 01/02/2010 10:24-0400 F Obs # Observation Date Value ABNL Reference Status Pe rforming Location 1 T4 Free SerPl-mCnc 01/04/2010 14:0400 1.30 0.7-1.7 ng/dL Final
--- OUTSIDE RECORDS SUMMARY | 2023-01-21 07:02 | External Medical Summary ---
Author Name SANDRA HEBERT Organization K01:[facility], [address] [facility] [address] Support Name Relationship Address Phone SANDRA HEBERT FABIO PROV Unknown Unavailabl e Laboratory Report Ordering Provider Test Date Status FABIO FLORES MD 12/03/2011 15:42:00-0400 Final Obs # Observation Date Value ABNL Reference Status Pe rforming Location 1 Albumin 12/03/2011 23:42-0400 4.1 3.8-5.0 g/dL Final 2 AST (Aspartate aminotransferase) 12/03/2011 23:42-0400 45 H 10-35 U/L Final 3 Alk Phos 12/03/2011 23:42-0400 84 0-153 U/L Final 4 ALT (Alanine aminotransferase) 12/03/2011 23:42-0400 66 H 10-35 U/L Final 5 Bilirubin, Total 12/03/2011 23:42-0400 0.5 0.3-1.3 mg/dL Final 6 Bilirubin, Direct 12/03/2011 23:42-0400 0.1 0-0.3 mg/dL Final 7 Protein 12/03/2011 23:42-0400 5.8 L 6.0-8.3 g/dL Final
--- OUTSIDE RECORDS SUMMARY | 2023-01-21 07:02 | External Medical Summary ---
Author Name SANDRA HEBERT Organization K01:[facility], [address] [facility] [address] Support Name Relationship Address Phone FABIO FLORES MD PROV Unknown Unavailabl e Laboratory Report Ordering Provider Test Date Status FABIO FLORES MD 09/03/2011 09:38:00-0400 Final Obs # Observation Date Value ABNL Reference Status Pe rforming Location 1 WBC 09/03/2011 23:0 4.09 4.00-10.80 K/uL Final 2 RBC 09/03/2011 23: 4.00 3.85-5.15 M/uL Final 3 HGB 09/03/2011 23:0400 12.5 12.0-14.5 g/dL Final 4 HCT 09/03/2011 23: 37.0 36.0-44.5 % Final 5 MCV 09/03/2011 23: 92.5 81.5-97.5 fL Final 6 MCH 09/03/2011 23: 31.3 27.0-34.0 pg Final 7 MCHC 09/03/2011 23: 33.8 32.0-36.0 g/dL Final 8 RDW 09/03/2011 23:0 15.5 11.5-15.5 % Final 9 PLT 09/03/2011 23:0 261 140-400 K/uL Final 10 MPV 09/03/2011 23: 11.6 H 6.6-11.1 fL Final
--- OUTSIDE RECORDS SUMMARY | 2023-01-21 07:02 | External Medical Summary ---
Author Name Unknown Organization [facility] [facility] tem Support Name Relationship Address Phone Unavailable PROV Unknown Unavailable Laboratory Report Ordering Provider Test Date Status 01/02/2010 10:24-0400 F Obs # Observation Date Value ABNL Reference Status Pe rforming Location 1 Creat SerPl-mCnc 01/02/2010 12:15-0400 1.3 0.7-1.5 mg/dL Final 2 Pred GFR SerPl MDRD-vRate 01/02/2010 12:15-0400 41.4 L >60 mL/min Final
--- OUTSIDE RECORDS SUMMARY | 2023-01-21 07:02 | External Medical Summary ---
Author Name Unknown Organization K09:[facility], [address], [place] [address] Support Name Relationship Address Phone KIMBERLEE MONZON PROV Unknown Unav ailable Laboratory Report Ordering Provider Test Date Status KIMBERLEE MONZON 10/17/2010 10:310400 Fi nal Obs # Observation Date Value ABNL Reference Status Pe rforming Location 1 WBC 10/17/2010 10:58-0400 6.27 4.00-10.80 K/uL Final 2 RBC 10/17/2010 10:58-0400 3.95 3.85-5.15 M/uL Final 3 HGB 10/17/2010 10:58-0400 12.0 12.0-14.5 g/dL Final 4 HCT 10/17/2010 10:58-0400 37.4 36.0-44.5 % Final 5 MCV 10/17/2010 10:58-0400 94.7 81.5-97.5 fL Final 6 MCH 10/17/2010 10:58-0400 30.4 27.0-34.0 pg Final 7 MCHC 10/17/2010 10:58-0400 32.1 32.0-36.0 g/dL Final 8 RDW 10/17/2010 10:58-0400 16.6 H 11.5-15.5 % Final 9 PLT 10/17/2010 10:580400 268 140-400 K/uL Final 10 MPV 10/17/2010 10:580400 11.0 6.6-11.1 fL Final
--- OUTSIDE RECORDS SUMMARY | 2023-01-21 07:02 | External Medical Summary ---
Author Name SANDRA HEBERT Organization K09:[facility], [address] [facility] , [place] [address] Support Name Relationship Address Phone SANDRA HEBERT, FABIO PROV Unknown Unavailabl e Laboratory Report Ordering Provider Test Date Status FABIO FLORES MD 01/02/2012 12:59:00-0400 Final Obs # Observation Date Value ABNL Reference Status Pe rforming Location 1 Albumin 01/02/2012 13:53-0400 4.0 3.8-5.0 g/dL Final 2 AST (Aspartate aminotransferase) 01/02/2012 13:53-0400 28 10-35 U/L Final 3 Alk Phos 01/02/2012 13:53-0400 90 0-153 U/L Final 4 ALT (Alanine aminotransferase) 01/02/2012 13:53-0400 34 10-35 U/L Final 5 Bilirubin, Total 01/02/2012 13:53-0400 0.3 0.3-1.3 mg/dL Final 6 Bilirubin, Direct 01/02/2012 13:53-0400 <0.2 0.0-0.3 mg/dL Final 7 Protein 01/02/2012 13:53-0400 6.1 6.0-8.3 g/dL Final
--- OUTSIDE RECORDS SUMMARY | 2023-01-21 07:02 | External Medical Summary ---
Author Name Unknown Organization K09:[facility], [address], [place] [address] Support Name Relationship Address Phone FABIO FLORES MD PROV Unknown Unavailab le Laboratory Report Ordering Provider Test Date Status FABIO FLORES MD 07/15/2010 11:030500 Final Obs # Observation Date Value ABNL Reference Status Pe rforming Location 1 WBC 07/15/2010 12:57-0500 4.61 4.00-10.80 K/uL Final 2 RBC 07/15/2010 12:57-0500 3.92 3.85-5.15 M/uL Final 3 HGB 07/15/2010 12:57-0500 12.1 12.0-14.5 g/dL Final 4 HCT 07/15/2010 12:57-0500 37.0 36.0-44.5 % Final 5 MCV 07/15/2010 12:57-0500 94.4 81.5-97.5 fL Final 6 MCH 07/15/2010 12:57-0500 30.9 27.0-34.0 pg Final 7 MCHC 07/15/2010 12:57-0500 32.7 32.0-36.0 g/dL Final 8 RDW 07/15/2010 12:57-0500 16.0 H 11.5-15.5 % Final 9 PLT 07/15/2010 12:57-0500 255 140-400 K/uL Final 10 MPV 07/15/2010 12:57-0500 11.5 H 6.6-11.1 fL Final
--- OUTSIDE RECORDS SUMMARY | 2023-01-21 07:02 | External Medical Summary ---
Author Name SANDRA HEBERT Organization K01:[facility], [address] [id number] Support Name Relationship Address Phone FABIO FLORES MD PROV Unknown Unavailabl e Laboratory Report Ordering Provider Test Date Status FABIO FLORES MD 09/03/2011 09:38:00-0400 Final Obs # Observation Date Value ABNL Reference Status Pe rforming Location 1 Creatinine 09/04/2011 00:33-0400 1.1 0.5-1.2 mg/dL Final GFR should be used to assess renal function. Plasma/Serum creatinine may not be able to properly reflect renal function in some cases.
--- OUTSIDE RECORDS SUMMARY | 2023-01-21 07:02 | External Medical Summary ---
Author Name Unknown Organization K09:[facility], [address], [place] [address] Support Name Relationship Address Phone KIMBERLEE MONZON PROV Unknown Unav ailable Laboratory Report Ordering Provider Test Date Status KIMBERLEE MONZON 10/17/2010 10:310400 Fi nal Obs # Observation Date Value ABNL Reference Status Pe rforming Location 1 Albumin, Serum 10/17/2010 12:240400 3.9 3.8-5.0 g/dL Final 2 AST (Aspartate aminotransferase) 10/17/2010 12:240400 25 10-35 U/L Final 3 Alk Phos 10/17/2010 12:0400 69 25-125 U/L Final 4 ALT (Alanine aminotransferase) 10/17/2010 12:240400 20 10-35 U/L Final 5 Bilirubin, Total 10/17/2010 12:24-0400 0.6 0.3-1.3 mg/dL Final 6 Bilirubin, Direct 10/17/2010 12:240400 <0.2 0.0-0.3 mg/dL Final 7 Protein 10/17/2010 12:24-0400 5.8 L 6.0-8.3 g/dL Final
--- OUTSIDE RECORDS SUMMARY | 2023-01-21 07:02 | External Medical Summary ---
Author Name Unknown Organization [employer] [facility] tem Support Name Relationship Address Phone Unavailable PROV Unknown Unavailable Laboratory Report Ordering Provider Test Date Status 01/02/2010 10:24-0400 F Obs # Observation Date Value ABNL Reference Status Pe rforming Location 1 [facility] 01/04/2010 14:110400 1.16 0.27-4.2 uIU/mL Final
--- OUTSIDE RECORDS SUMMARY | 2023-01-21 07:02 | External Medical Summary ---
Author Name Unknown Organization K09:[facility], [address] , [place] [address] Support Name Relationship Address Phone FABIO FLORES MD PROV Unknown Unavailab le Laboratory Report Ordering Provider Test Date Status FABIO FLORES MD 07/15/2010 11:030500 Final Obs # Observation Date Value ABNL Reference Status Pe rforming Location 1 Albumin, Serum 07/15/2010 13:12-0500 4.0 3.8-5.0 g/dL Final 2 AST (Aspartate aminotransferase) 07/15/2010 13:12-0500 26 10-35 U/L Final 3 Alk Phos 07/15/2010 13:12-0500 76 25-125 U/L Final 4 ALT (Alanine aminotransferase) 07/15/2010 13:120500 31 10-35 U/L Final 5 Bilirubin, Total 07/15/2010 13:12-0500 0.4 0.3-1.3 mg/dL Final 6 Bilirubin, Direct 07/15/2010 13:12-0500 <0.2 0.0-0.3 mg/dL Final 7 Protein 07/15/2010 13:12-0500 6.3 6.0-8.3 g/dL Final
--- OUTSIDE RECORDS SUMMARY | 2023-01-21 07:02 | External Medical Summary ---
Author Name Unknown Organization [employer] [facility] tem Support Name Relationship Address Phone DOUG CRNPKIMBERLEE PROV Unknown Unav ailable Laboratory Report Ordering Provider Test Date Status DOUG RUFFKIMBERLEE Nely 04/11/2010 11:19-0500 F Obs # Observation Date Value ABNL Reference Status Pe rforming Location 1 WBC # Bld 04/11/2010 11:45-0500 4.66 4.00-10.80 K/uL Final 2 RBC # Bld 04/11/2010 11:45-0500 4.19 3.85-5.15 M/uL Final 3 Hgb Bld-mCnc 04/11/2010 11:45-0500 12.9 12.0-14.5 g/dL Final 4 Hct Fr Bld 04/11/2010 11:45-0500 39.0 36.0-44.5 % Final 5 MCV RBC Qn 04/11/2010 11:45-0500 93.1 81.5-97.5 fL Final 6 MCH RBC Qn 04/11/2010 11:45-0500 30.8 27.0-34.0 pg Final 7 MCHC RBC-mCnc 04/11/2010 11:45-0500 33.1 32.0-36.0 g/dL Final 8 RDW RBC Qn 04/11/2010 11:45-0500 16.1 H 11.5-15.5 % Final 9 Platelet # Bld 04/11/2010 11:45-0500 252 150-400 K/uL Final 10 PMV Bld Qn 04/11/2010 11:45-0500 11.2 H 6.6-11.1 fL Final
--- OUTSIDE RECORDS SUMMARY | 2023-01-21 07:02 | External Medical Summary ---
Author Name Unknown Organization [employer] tem Support Name Relationship Address Phone KIMBERLEE MONZON PROV Unknown Unav ailable Laboratory Report Ordering Provider Test Date Status KIMBERLEE MONZON 04/11/2010 11:19-0500 F Obs # Observation Date Value ABNL Reference Status Pe rforming Location 1 25OH VITAMIN D TOTAL 04/12/20 10 14:05-05 00 32.3 30.0-100.0 ng/mL Final 2 25OH VITAMIN D TOTAL 04/12/20 10 14:05-05 00 Final 3 25OH VITAMIN D TOTAL 04/12/20 14:05-05 00 Deficient: <20.0 ng/mL Final 4 25OH VITAMIN D TOTAL 04/12/20 10 14:05-05 00 Insufficient: 20.0-29.9 ng/ml Final 5 25OH VITAMIN D TOTAL 04/12/20 10 14:05-05 00 Sufficient: 30.0-100.0 ng/ml Final 6 25OH VITAMIN D TOTAL 04/12/20 10 14:05-05 00 High: >100.0 ng/ml Final 7 25OH VITAMIN D TOTAL 04/12/20 10 14:05-05 00 Final 8 25OH VITAMIN D TOTAL 04/12/20 10 14:05-05 00 Refer to [facility] Osteoporosis Final 9 25OH VITAMIN D TOTAL 04/12/20 10 14:05-05 00 for Practitioners Best Practice Final 10 25OH VITAMIN D TOTAL 04/12/20 10 14:05-05 00 Guidelines for therapeutic Final 11 25OH VITAMIN D TOTAL 04/12/20 10 14:05-05 00 recommendations. Final
--- OUTSIDE RECORDS SUMMARY | 2023-01-21 07:02 | External Medical Summary ---
Author Name Unknown Organization K09:[facility] [address] [place] [address] Support Name Relationship Address Phone FABIO FLORES MD PROV Unknown Unavailab le Laboratory Report Ordering Provider Test Date Status FABIO FLORES MD 07/15/2010 11:03-0500 Final Obs # Observation Date Value ABNL Reference Status Pe rforming Location 1 Creatinine 07/15/2010 13:12-0500 1.2 0.7-1.5 mg/dL Final 2 GFR / 1.73 sq M.predicted 07/15/2010 13:12-0500 45.2 L >60 mL/min Final
--- OUTSIDE RECORDS SUMMARY | 2023-01-21 07:02 | External Medical Summary ---
Author Name SANDRA HEBERT Organization K01:[facility], [address] [facility] [address] Support Name Relationship Address Phone FABIO FLORES MD PROV Unknown Unavailabl e Laboratory Report Ordering Provider Test Date Status FABIO FLORES MD 09/03/2011 09:38:00-0400 Final Obs # Observation Date Value ABNL Reference Status Pe rforming Location 1 Albumin 09/04/2011 00:33-0400 4.2 3.8-5.0 g/dL Final 2 AST (Aspartate aminotransferase) 09/04/2011 00:33-0400 22 10-35 U/L Final 3 Alk Phos 09/04/2011 00:33-0400 76 0-153 U/L Final 4 ALT (Alanine aminotransferase) 09/04/2011 00:33-0400 25 10-35 U/L Final 5 Bilirubin, Total 09/04/2011 00:33-0400 0.6 0.3-1.3 mg/dL Final 6 Bilirubin, Direct 09/04/2011 00:33-0400 0.2 0-0.3 mg/dL Final 7 Protein 09/04/2011 00:33-0400 5.8 L 6.0-8.3 g/dL Final
--- OUTSIDE RECORDS SUMMARY | 2023-01-21 07:02 | External Medical Summary ---
Author Name SANDRA HEBERT Organization K01:[facility], [address] [address] Support Name Relationship Address Phone FABIO FLORES MD PROV Unknown Unavailabl e Laboratory Report Ordering Provider Test Date Status FABIO FLORES MD 12/03/2011 15:42:00-0400 Final Obs # Observation Date Value ABNL Reference Status Pe rforming Location 1 Creatinine 12/03/2011 23:42-0400 1.2 0.5-1.2 mg/dL Final GFR should be used to assess renal function. Plasma/Serum creatinine may not be able to properly reflect renal function in some cases.
--- OUTSIDE RECORDS SUMMARY | 2023-01-21 07:02 | External Medical Summary ---
Author Name SANDRA HEBERT Organization K01:[facility], [address] [facility] [address] Support Name Relationship Address Phone SANDRA HEBERT FABIO PROV Unknown Unavailabl e Laboratory Report Ordering Provider Test Date Status FABIO FLORES MD 12/03/2011 15:42:00-0400 Final Obs # Observation Date Value ABNL Reference Status Pe rforming Location 1 WBC 12/03/2011 21:43-0400 4.09 4.00-10.80 K/uL Final 2 RBC 12/03/2011 21:43-0400 3.95 3.85-5.15 M/uL Final 3 HGB 12/03/2011 21:43-0400 12.3 12.0-14.5 g/dL Final 4 HCT 12/03/2011 21:43-0400 36.5 36.0-44.5 % Final 5 MCV 12/03/2011 21:43-0400 92.4 81.5-97.5 fL Final 6 MCH 12/03/2011 21:43-0400 31.1 27.0-34.0 pg Final 7 MCHC 12/03/2011 21:43-0400 33.7 32.0-36.0 g/dL Final 8 RDW 12/03/2011 21:43-0400 15.6 H 11.5-15.5 % Final 9 PLT 12/03/2011 21:43-0400 240 140-400 K/uL Final 10 MPV 12/03/2011 21:43-0400 11.2 H 6.6-11.1 fL Final
--- OUTSIDE RECORDS SUMMARY | 2023-01-21 07:02 | External Medical Summary ---
Author Name Unknown Organization [employer] [facility] tem Support Name Relationship Address Phone KIMBERLEE MONZON PROV Unknown Unav ailable Laboratory Report Ordering Provider Test Date Status KIMBERLEE MONZON 04/11/2010 11:19-0500 F Obs # Observation Date Value ABNL Reference Status Pe rforming Location 1 Creat SerPl-mCnc 04/11/2010 12:31-0500 1.3 0.7-1.5 mg/dL Final 2 Pred GFR SerPl MDRD-vRate 04/11/2010 12:31-0500 41.4 L >60 mL/min Final
--- OUTSIDE RECORDS SUMMARY | 2023-01-21 07:02 | External Medical Summary ---
Author Name Unknown Organization [employer] tem Support Name Relationship Address Phone Unavailable PROV Unknown Unavailable Laboratory Report Ordering Provider Test Date Status 01/02/2010 10:24-0400 F Obs # Observation Date Value ABNL Reference Status Pe rforming Location 1 Albumin SerPl-mCnc 01/02/2010 12:15-0400 4.2 3.8-5.0 g/dL Final 2 AST SerPl-cCnc 01/02/2010 12:15-0400 21 10-35 U/L Final 3 ALP SerPl-cCnc 01/02/2010 12:15-0400 69 25-125 U/L Final 4 ALT SerPl-cCnc 01/02/2010 12:15-0400 20 10-35 U/L Final 5 Bilirub SerPl-mCnc 01/02/2010 12:15-0400 0.5 0.3-1.3 mg/dL Final 6 Bilirub Direct SerPl-mCnc 01/02/2010 12:15-0400 <0.2 0.0-0.3 mg/dL Final 7 Prot SerPl-mCnc 01/02/2010 12:15-0400 6.3 6.0-8.3 g/dL Final
--- OUTSIDE RECORDS SUMMARY | 2023-01-21 07:02 | External Medical Summary ---
Author Name Unknown Organization [employer] tem Support Name Relationship Address Phone DOUG SPEEDYKIMBERLEE Nely PROV Unknown Unav ailable Laboratory Report Ordering Provider Test Date Status KIMBERLEE MONZON 04/11/2010 11:19-0500 F Obs # Observation Date Value ABNL Reference Status Pe rforming Location 1 Albumin SerPl-mCnc 04/11/2010 12:31-0500 4.1 3.8-5.0 g/dL Final 2 AST SerPl-cCnc 04/11/2010 12:31-0500 23 10-35 U/L Final 3 ALP SerPl-cCnc 04/11/2010 12:31-0500 70 25-125 U/L Final 4 ALT SerPl-cCnc 04/11/2010 12:31-0500 22 10-35 U/L Final 5 Bilirub SerPl-mCnc 04/11/2010 12:31-0500 0.5 0.3-1.3 mg/dL Final 6 Bilirub Direct SerPl-mCnc 04/11/2010 12:31-0500 <0.2 0.0-0.3 mg/dL Final 7 Prot SerPl-mCnc 04/11/2010 12:31-0500 6.4 6.0-8.3 g/dL Final
--- OUTSIDE RECORDS SUMMARY | 2023-01-21 07:02 | External Medical Summary ---
Author Name Unknown Organization [facility] [facility] tem Support Name Relationship Address Phone Unavailable PROV Unknown Unavailable Laboratory Report Ordering Provider Test Date Status 01/02/2010 10:24-0400 F Obs # Observation Date Value ABNL Reference Status Pe rforming Location 1 WBC # Bld 01/02/2010 11:20-0400 4.22 4.00-10.80 K/uL Final 2 RBC # Bld 01/02/2010 11:20-0400 3.84 L 3.85-5.15 M/uL Final 3 Hgb Bld-mCnc 01/02/2010 11:20-0400 12.6 12.0-14.5 g/dL Final 4 Hct Fr Bld 01/02/2010 11:200400 36.6 36.0-44.5 % Final 5 MCV RBC Qn 01/02/2010 11:20-0400 95.3 81.5-97.5 fL Final 6 MCH RBC Qn 01/02/2010 11:20-0400 32.6 27.0-34.0 pg Final 7 MCHC RBC-mCnc 01/02/2010 11:20-0400 34.3 32.0-36.0 g/dL Final 8 RDW RBC Qn 01/02/2010 11:200400 15.0 11.5-15.5 % Final 9 Platelet # Bld 01/02/2010 11:20-0400 213 150-400 K/uL Final 10 PMV Bld Qn 01/02/2010 11:20-0400 8.4 6.6-11.1 fL Final
[2023-01-21] MEDS ORDERED: METOPROLOL TARTRATE 1 MG/ML VIAL IV STA (07:35)
[2023-01-21] MEDS: CALCITRIOL 0.25 MCG CAPSULE PO SCH (07:48)
[2023-01-21] MEDS: APIXABAN 5 MG TABLET PO SCH ×2 (07:48→21:44)
[2023-01-21] MEDS: SPIRONOLACTONE 25 MG TAB PO SCH ×2 (07:49→21:44)
[2023-01-21] MEDS: MAGNESIUM OXIDE 400 MG TAB PO SCH ×2 (07:49→21:44)
[2023-01-21] MEDS: DULoxetine HCL 60 MG CAP PO SCH (07:49)
[2023-01-21] MEDS: NIFEdipine EXTENDED REL 30 MG TABCR PO SCH (07:49)
[2023-01-21] MEDS: POTASSIUM CHLORIDE CRTAB 20 MEQ TABCR PO SCH (07:50)
[2023-01-21] MEDS: MONTELUKAST SODIUM 10 MG TABLET PO SCH (07:51)
[2023-01-21] MEDS: NITROGLYCERIN 0.4 MG/HR PATCH TD SCH (07:51)
[2023-01-21] MEDS: FLUTICASONE/VILANTEROL 100/25MCG 14 PUFFS/INHALER INH SCH (07:51)
[2023-01-21 09:42] LABS: Basophils # (auto) 0.04 K/uL (0.00-0.20); Basophils % (auto) 0.6 %; Eosinophils % (auto) 1.5 %; Hemoglobin 10.7 g/dl (12.0-16.0); Immature Granulocytes # (auto) 0.02 K/uL (0.01-0.20); Immature Granulocytes % (auto) 0.3 %; Lymphocytes # (auto) 1.18 K/uL (1.20-3.40); Lymphocytes % (auto) 18.3 %; Mean Corpuscular Hgb Conc 31.5 g/dL (32.0-36.0); Mean Corpuscular Volume 82.5 fL (80.0-100.0); Mean Platelet Volume 10.3 fL (9.4-12.4); Monocytes # (auto) 0.46 K/uL (0.11-0.59); Monocytes % (auto) 7.1 %; Neutrophils # (auto) 4.66 K/uL (1.40-6.50); Neutrophils % (auto) 72.2 %; Platelet Count 357 K/uL (130-400); RDW Coefficient of Variation 18.1 % (11.5-14.5); RDW Standard Deviation 53.7 fL (36.4-46.3); Red Blood Count 4.12 M/uL (4.20-5.40); White Blood Count 6.46 K/ul (4.8-10.8)
[2023-01-21] MEDS ORDERED: METOPROLOL SUCC 25MG EXT REL TAB PO SCH (09:45)
[2023-01-21] MEDS ORDERED: STAT IV Infusion **Titration per Protocol STA (10:08)
[2023-01-21] MEDS ORDERED: AMIODARONE IV BOLUS & DRIP IV STA (10:08)
[2023-01-21] MEDS ORDERED: AMIODARONE / D5W 150 MG/100 ML BAG IV ONE (10:15)
[2023-01-21] MEDS ORDERED: 0.2 MICRON FILTER SET 1 EACH IV ONE (10:15)
[2023-01-21 10:17] LABS: BUN Creatinine Ratio 13.2 (10-20); Creatinine Clr Calc Pharmacy 35.2 ml/min; Est GFR (African American) 30.7 ml/min; Est GFR (Non-African American) 26.5 ml/min; Potassium 3.5 mmol/L (3.5-5.1)
[2023-01-21] MEDS ORDERED: AMIODARONE / D5W 360 MG/200 ML BAG IV ONE (10:30)
--- NOTE | 2023-01-21 14:15 | Cardiology Consultation ---
Date of Consultation January 21, 2023 Assessment & Plan (1) Atrial fibrillation with RVR: (2) Elevated troponin: (3) Tachy-lina syndrome: (4) HTN (hypertension): Plan ASSESSMENT/PLAN: 1. Atrial fibrillation with rapid ventricular response: Paroxysmal. Has had brief episodes of sinus rhythm while here. Therefore, cardioversion not performed as likely to revert to A-fib. Recommend antiarrhythmic therapy. Given age and risk factors, avoiding Class Ic agents. Considered amiodarone vs multaq. Discussed with her grease man, Dr. Mitchell. After discussion, we will proceed with amiodarone. Monitor closely for bradycardia. Continue anticoagulation for stroke risk reduction. Intravenous amiodarone ordered which will likely help convert to sinus as well. We will transition to oral in the near future. Monitor transaminase levels and TSH while on amiodaron e. Echo ordered. 2. Tachybradycardia syndrome: Concern in the past for tachybradycardia syndrome while on very low-dose metoprolol. We will discontinue metoprolol succinate. Monitor for bradycardia with amiodarone. May require pacemaker, but not urgently indicated at this time. 3. Atrial flutter: Plan as above. Seems to have episodes of atrial flutter and atrial fibrillation. 4. Elevated troponin: High-sensitivity troponin slightly elevated and likely due to demand ischemia in the setting of RVR. Ischemic evaluation not necessary at this time. 5. Hypertension: Blood pressure has been mostly mildly elevated. Continue outpatient regimen and can make adjustments as necessary as per primary hospitalist service. 6. Disposition: Plan of care communicated with primary hospitalist, Dr. Ca. On discharge, follow-up with Dr. Mitchell, her primary development director/grease man. Thank you for allowing me to participate in the care of your patient. Please call for any other questions or concerns. Sincerely, Braeden Herrera M.D. History of Present Illness Reason for Consultation: Atrial fibrillation with rapid ventricular response Requesting Physician: Riley Avendaño Attending Physician: Kirk Ca DO History of Present Illness Mrs. Vergara is a very pleasant 77-year-old female with a history significant for paroxysmal atrial fibrillation, possible tachybradycardia syndrome, CKD, type 2 diabetes, asthma, dyslipidemia, and hypothyroidism. Her primary development director is Dr. Mitchell. She was admitted on 01/20/2023 with atrial fibrillation and rapid ventricular response. She has a history of paroxysmal atrial fibrillation and has been largely asymptomatic. She typically knows about the episodes once notified by her smart watch. She estimates that most episodes last approximately 10 minutes before spontaneously resolving. She recalls being diagnosed just before hip surgery in 2019. At that time, she was given low-dose beta-ankit and converted to sinus rhythm. In follow-up with outpatient monitoring, she had episodes of sinus bradycardia and a 3-second pause on low-dose metoprolol. Therefore, she has not been on any rate controlling medication. On 01/19/2023, in the evening, her watch alerted for elevated heart rate of approximately 138 bpm. She called the cardiology office and presented for an ECG on 01/20/2023. She was instructed to come to the emergency department for evaluation if she did not spontaneously convert later that day. Because her heart rate remained elevated, she came to the emergency department. She denies palpitations, chest pain, shortness of breath at rest, syncope, near syncope, edema, or bleeding. She reports occasional dyspnea on exertion which is chronic and stable and she has attributed this to her asthma. She has not noted any change in her dyspnea despite being in atrial fibrillation with rapid heart rate over the past 1 to 2 days. She wears compression stockings chronically for edema, which has controlled it well. She recalls recently being initiated on a new medication for acid reflux but cannot recall the name. She otherwise has been eating and drinking her usual amounts. She had a shingle vaccine the day before her atrial fibrillation episode. While here, she received 20 mg of intravenous diltiazem in the emergency department. She was noted to have a brief conversion to sinus rhythm at approximately 6:17 AM this morning for approximately 7 minutes. A-fib converted atrial flutter prior to the sinus episode. She otherwise reverted to atrial fib rillation with RVR following her sinus episode. While in sinus, she had frequent premature supraventricular ectopic complexes. She states that she has not missed any doses of her anticoagulation therapy for at least 4 weeks. Review of systems: As above. Review of systems otherwise negative/unremarkable. Family history: Younger brother with atrial fibrillation and pacemaker. Social history: She denies tobacco, alcohol, or drug abuse. She lives at home. Her niece recently moved in with her. She is a ( in 2020 with dementia). No children. 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 Unaccompanied in her hospital room. Allergies Allergy/AdvReac Type Severity Reaction Status Date / Time codeine Allergy Severe Anaphylaxis Verified 01/20/23 21:22 celecoxib [From Celebrex] Allergy Intermediate RASH Verified 01/20/23 21:22 cephalexin [From Keflex] Allergy Intermediate Rash Verified 01/20/23 21:22 hydrocodone Allergy Intermediate Rash Verified 01/20/23 21:22 Iodinated Contrast Media Allergy Intermediate RASH Verified 01/20/23 21:22 nickel Allergy Intermediate Rash Verified 01/20/23 21:22 oxycodone Allergy Intermediate Rash Verified 01/20/23 21:22 Sulfa (Sulfonamide Allergy Intermediate RASH TO Verified 01/20/23 21:22 Antibiotics) SULFA DRUGS tetracycline Allergy Intermediate RASH Verified 01/20/23 21:22 capsaicin AdvReac Intermediate CREATINE Verified 01/20/23 21:23 ELEVATION diclofenac AdvReac Intermediate CREATINE Verified 01/20/23 21:23 ELEVATION propylene glycol AdvReac Intermediate CREATINE Verified 01/20/23 21:23 ELEVATION "PREP WITH BLUE DYE" Allergy Intermediate Rash Uncoded 01/20/23 21:22 Home Medications Medication Instructions Recorded Confirmed Type magnesium oxide 400 mg PO BID 07/26/18 01/20/23 History omega 1-dyp-pjp-fish oil 1,000 mg 1,000 mg PO BID 07/26/18 01/20/23 History (120 mg-180 mg) capsule (Fish Oil) cetirizine 10 mg tablet (Zyrtec) 10 mg PO HS 08/22/19 01/20/23 History betamethasone valerate 0.1 % 1 applic topical UD PRN PSORIASIS 11/30/19 01/20/23 History topical cream blood-glucose meter (Accu-Chek 02/12/21 09/25/22 History Garima Plus Meter) prednisone 5 mg tablet 5 mg PO HS #90 tabs 01/07/22 01/20/23 Rx nitroglycerin 0.4 mg/hr 1 patch transdermal QAM #90 ea 03/20/22 01/20/23 Rx transdermal 24 hour patch (Nitro-Dur) nifedipine 90 mg tablet,extended 90 mg PO HS #90 tabs 04/14/22 01/20/23 Rx release duloxetine 60 mg capsule,delayed 60 mg PO QAM #90 caps 05/12/22 01/20/23 Rx release (Cymbalta) spironolactone 25 mg tablet 25 mg PO BID #180 tabs 06/02/22 01/20/23 Rx (Aldactone) cholestyramine (with sugar) 4 gram 4 ea PO DIRECTED PRN NEEDED 08/26/22 01/20/23 History oral powder PER PT. levothyroxine 137 mcg capsule 137 mcg PO DAILY #90 caps 08/27/22 01/20/23 Rx empagliflozin 10 mg tablet 10 mg PO DAILY #90 tabs 09/03/22 01/20/23 Rx (Jardiance) calcitriol 0.5 mcg capsule 0.5 mcg PO DAILY #90 caps 09/19/22 01/20/23 Rx albuterol sulfate 90 mcg/actuation 2 puff inhalation Q6H PRN 09/30/22 01/20/23 Rx aerosol inhaler shortness of breath or wheezing #8.5 grams budesonide-formoterol HFA 80 2 puff inhalation BID #3 Inhalers 09/30/22 01/20/23 Rx mcg-4.5 mcg/actuation aerosol inhaler (Symbicort) azelastine 137 mcg (0.1 %) nasal 2 spray intranasal DAILY PRN 11/17/22 01/20/23 Rx spray aerosol ALLERGIES #30 mL blood sugar diagnostic (Accu-Chek #100 ea 12/19/22 Rx Garima Plus test strips) potassium chloride 20 mEq 20 meq PO QAM #90 tabs 01/09/23 01/20/23 Rx tablet,extended release(part/cryst) (Klor-Con M) apixaban 5 mg tablet (Eliquis) 5 mg PO BID #180 tabs 01/15/23 01/20/23 Rx montelukast 10 mg tablet 10 mg PO DAILY #90 tabs 01/19/23 01/20/23 Rx (Singulair) acetaminophen 650 mg 1,300 mg PO BID 01/20/23 01/20/23 History tablet,extended release (Tylenol Arthritis Pain) dulaglutide 0.75 mg/0.5 mL 0.75 mg subcut WK 01/20/23 01/20/23 History subcutaneous pen injector (Trulicity) levalbuterol HCl 0.63 mg/3 mL 0.63 mg inhalation Q4H PRN Cough 01/20/23 01/20/23 History solution for nebulization Patient History Medical History (Updated 01/21/23 @ 14:32 by Jarocho Herrera MD) Abnormal PFT Active asthma inhaler daily/prn, nebulizer prn Allergic rhinitis Atrial fibrillation Chronic dyspnea Chronic steroid use FOR PSORITRIC ARTHRITIS CKD (chronic kidney disease) stage 4, GFR 15-29 ml/min baseline creatinine 2.0-2.2 range; nephrology (Dr. Stevenson) monitoring Esophageal dysmotility Esophageal spasm Essential hypertension Gastric polyp GERD (gastroesophageal reflux disease) CONTROLLED WITH MEDS Hearing loss, right DEAF RIGHT EAR Hiatal hernia HTN (hypertension) Hyperlipidemia Hypothyroidism Iron deficiency anemia Irritable bowel syndrome correction current use of systemic steroids for psoriatic arthritis Mild persistent asthma Obesity On anticoagulant therapy eliquis bid Paroxysmal atrial fibrillation follows with Dr. Mitchell on eliquis bid Peptic ulcer disease Polyneuropathy Psoriatic arthropathy Restless leg syndrome Schatzki's ring Seasonal allergies Sometimes gets bronchitis, uses nebulizer for this and allergies Sialoadenitis, unspecified Sinus congestion Spinal meningioma On c-spine- follows with [facility] [place] specialist (Dr. Ken)- under surveillance/stable/no indication for surgical intervention Tinnitus of right ear Type II diabetes mellitus Varicose veins of legs Surgical History H/O thyroidectomy History of arthroscopy RT/LEFT KNEE History of arthroscopy of right shoulder History of cardiac cath X2; 10+ YEARS AGO (NO STENTS) History of cataract extraction RT/LEFT History of cholecystectomy History of colectomy (~06/2020) @ [facility] History of colonoscopy last 03/2020 History of dilatation and curettage History of esophagogastroduodenoscopy (EGD) History of foot surgery RT FOOT FUSION History of laparoscopy (~06/2020) exploratory after colectomy @ [facility] History of lumbar fusion History of tonsillectomy and adenoidectomy History of tooth extraction History of total abdominal hysterectomy and bilateral salpingo-oophorectomy History of total hip arthroplasty RIGHT 05/27/19. Complicated by post-op seroma requiring multiple needle aspirations.LEFT HIP 01/10/20 History of total knee arthroplasty RIGHT History of total left hip arthroplasty 12/2019 Status post total replacement of left shoulder hx of Family History Mother Arthritis Hypertension Father Lung cancer Hypertension Family/Other Family hx of colon cancer 1st cousin Unknown Allergies Breast cancer Hypertension Brother Cancer Heart disease Aunt Colorectal cancer Other No family history of adverse response to anesthesia No family history of bleeding disorder Denies family history of Ovarian cancer Prostate cancer Diabetes Hearing loss Myocardial infarction Stroke Asthma Social History Smoking Status: Never smoker Tobacco Type: Cigarettes Age Quit Using Tobacco: 26; Second Hand Exposure: Yes (parents smoked); Do You Dip or Chew Tobacco: No; Hx Alcohol Use: Yes Alcohol type: wine Hx Substance Use: No Preferred Language: Portuguese Communication Ability: Effective Communication Ability Comment: DEAF RIGHT EAR Visual Impairment: Limited Hearing Ability: Hard of Hearing [employer] Worker Required: No Beliefs That Will Affect Care: None marital status: / Current Living Situation: Family Current Living Situation Comment: Lives with niece 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 Alert and oriented. HEENT: Anicteric sclera. Neck: No JVD. No bruits. Normal carotid upstrokes bilaterally. Cardiac: No ventricular heave. Irregularly irregular. Tachycardic. Normal S1- S2. No murmurs, rubs, or gallops. Pulmonary: Clear to auscultation bilaterally without wheezes, rales, or rhonchi. Abdomen: Soft, nontender, nondistended, with normoactive bowel sounds. No bruits noted. Extremities: 2+ radial pulses bilaterally. 2+ posterior tibialis pulses bilaterally. No significant pitting edema or cyanosis. Psychiatric: Affect appears appropriate. Results & Data Vital Signs (Past 12 Hours) Vital Signs Temp Pulse Pulse Resp BP BP BP 01/21/23 11:24 36.8 C 92 H 18 128/105 H 01/21/23 09:30 119 H 01/21/23 09:25 01/21/23 08:02 109 H 144/101 H 01/21/23 07:16 37.1 C 122 H 18 161/102 H 01/21/23 07:47 135 H 144/90 H 01/21/23 04:00 36.8 C 126 H 22 144/90 H Pulse Ox O2 Del Method 01/21/23 11:24 95 Room Air 01/21/23 09:30 01/21/23 09:25 Room Air 01/21/23 08:02 01/21/23 07:16 94 Room Air 01/21/23 07:47 01/21/23 04:00 99 Room Air Laboratory Results Laboratory Results - last 24 hr 01/20/23 01/20/23 01/20/23 19:40 19:40 19:40 WBC 7.47 RBC 4.33 Hgb 11.2 L Hct 35.5 L MCV 82.0 MCH 25.9 MCHC 31.5 L RDW Std Deviation 54.3 H RDW Coeff of Amrita 18.2 H Plt Count 395 MPV 10.4 Immature Gran % (Auto) 0.3 Neut % (Auto) 63.5 Lymph % (Auto) 25.3 [place] % (Auto) 8.3 Eos % (Auto) 2.1 Baso % (Auto) 0.5 Neut # (Auto) 4.74 Lymph # (Auto) 1.89 [place] # (Auto) 0.62 H Eos # (Auto) 0.16 Baso # (Auto) 0.04 Immature Gran # (Auto) 0.02 PT 10.9 INR 1.0 APTT 26.0 PTT Ratio 0.9 Sodium 137 Potassium 3.6 Chloride 104 Carbon Dioxide 23 Anion Gap 10 BUN 26 H Creatinine 1.81 H Est Cr Clr Drug Dosing 35.3 Est GFR ( Amer) 30.9 Est GFR (Non-Af Amer) 26.7 BUN/Creatinine Ratio 14.4 Glucose 105 H Calcium 9.4 Magnesium 2.2 Troponin I High Sens 25.2 H Lipase 79 TSH 01/20/23 01/21/23 01/21/23 19:40 08:54 08:54 WBC 6.46 RBC 4.12 L Hgb 10.7 L Hct 34.0 L MCV 82.5 MCH 26.0 MCHC 31.5 L RDW Std Deviation 53.7 H RDW Coeff of Amrita 18.1 H Plt Count 357 MPV 10.3 Immature Gran % (Auto) 0.3 Neut % (Auto) 72.2 Lymph % (Auto) 18.3 [place] % (Auto) 7.1 Eos % (Auto) 1.5 Baso % (Auto) 0.6 Neut # (Auto) 4.66 Lymph # (Auto) 1.[address] # (Auto) 0.46 Eos # (Auto) 0.10 Baso # (Auto) 0.04 Immature Gran # (Auto) 0.02 PT INR APTT PTT Ratio Sodium 140 Potassium 3.5 Chloride 107 Carbon Dioxide 23 Anion Gap 10 BUN 24 H Creatinine 1.82 H Est Cr Clr Drug Dosing 35.2 Est GFR ( Amer) 30.7 Est GFR (Non-Af Amer) 26.5 BUN/Creatinine Ratio 13.2 Glucose 172 H Calcium 9.0 Magnesium 2.0 Troponin I High Sens Lipase TSH 1.980 Diagnostic Findings History and physical report reviewed. Outpatient cardiology notes reviewed. ECG personally reviewed: ECG 01/21/2023 at 0038: Sinus rhythm with PACs at 90 bpm. Nonspecific T wave abnormality. ECG 01/21/2023 at 6:18 AM: Sinus rhythm with PACs 83 bpm. ECG 820 02/14/1946: Atrial fibrillation/flutter 111 bpm. LVH. Nonspecific T wave abnormality. ECG 01/20/2023 at 1936: A-fib/flutter 129 bpm. Nonspecific T wave abnormality. Labs reviewed and notable for mild anemia, chronically abnormal renal function, normal potassium, normal magnesium, slightly elevated high-sensitivity troponin. Normal TSH. Chest x-ray 01/20/2023: Chronic interstitial thickening similar to previous. Medications Administered Current Inpatient Medications Acetaminophen (Acetaminophen 325 Mg Tab) 650 mg PO Q4H PRN PRN Reason: Pain or Fever Stop: 02/20/23 01:05 Albuterol (Albuterol Hfa 8 Gm Inhaler) 2 puffs INH Q6H PRN PRN Reason: shortness of breath or wheezin Stop: 02/20/23 01:05 Apixaban (Apixaban 5 Mg Tablet) 5 mg PO BID CAROL Stop: 02/20/23 08:59 Last Admin: 01/21/23 07:48 Dose: 5 mg Calcitriol (Calcitriol 0.25 Mcg Capsule) 0.5 mcg PO DAILY CAROL Stop: 02/20/23 08:59 Last Admin: 01/21/23 07:48 Dose: 0.5 mcg Duloxetine HCl (Duloxetine Hcl 60 Mg Cap) 60 mg PO QAM CAROL Stop: 02/20/23 08:59 Last Admin: 01/21/23 07:49 Dose: 60 mg Fluticasone/Vilanterol (Fluticasone/Vilanterol 100/25mcg 14 Puffs/Inhaler) 1 puffs INH DAILY CAROL Stop: 02/20/23 08:59 Last Admin: 01/21/23 07:51 Dose: 1 puffs Amiodarone HCl/Dextrose (Nexterone / D5w) 360 mg in 200 mls @ 16.667 mls/hr IV .Q12H CAROL Stop: 02/20/23 16:29 Amiodarone HCl/Dextrose (Nexterone / D5w) 360 mg in 200 mls @ 33.333 mls/hr IV ONE ONE Stop: 01/21/23 16:29 Last Admin: 01/21/23 10:21 Dose: 1 mg/min, 33.3 mls/hr Levalbuterol HCl (Levalbuterol Hcl 0.63 Mg/3 Ml Neb) 0.63 mg INH Q4H PRN; Protocol PRN Reason: Cough Stop: 02/20/23 01:05 Levothyroxine Sodium (Levothyroxine Sodium 137 Mcg Tablet) 137 mcg PO DAILYBB CAROL Stop: 02/20/23 06:29 Last Admin: 01/21/23 06:50 Dose: 137 mcg Magnesium Oxide (Magnesium Oxide 400 Mg Tab) 400 mg PO BID CAROL Stop: 02/20/23 08:59 Last Admin: 01/21/23 07:49 Dose: 400 mg Metoprolol Succinate (Metoprolol Succ 25mg Ext Rel Tab) 25 mg PO QAM [facility] Stop: 02/20/23 09:44 Last Admin: 01/21/23 10:29 Dose: 25 mg Miscellaneous (Remove Nitro-Dur Patch) 1 each N/A DAILY@2100 [facility] Stop: 02/20/23 20:59 Montelukast Sodium (Montelukast Sodium 10 Mg Tablet) 10 mg PO DAILY CAROL Stop: 02/20/23 08:59 Last Admin: 01/21/23 07:51 Dose: 10 mg Nifedipine (Nifedipine Extended Rel 30 Mg Tabcr) 90 mg PO HS [facility] Stop: 02/20/23 20:59 Last Admin: 01/21/23 07:49 Dose: 90 mg Nitroglycerin (Nitroglycerin 0.4 Mg/Hr Patch) 1 patch TD QAM CAROL Stop: 02/20/23 08:59 Last Admin: 01/21/23 07:51 Dose: 1 patch Ondansetron HCl (Ondansetron Inj 2 Mg/Ml 2 Ml Vial) 4 mg IV Q6H PRN PRN Reason: Nausea Stop: 02/20/23 01:05 Polyethylene Glycol (Polyethylene (Miralax) 17 Gm Pack) 17 gm PO DAILY PRN PRN Reason: Constipation Stop: 02/20/23 01:05 Potassium Chloride (Potassium Chloride Crtab 20 Meq Tabcr) 20 meq PO QAM [facility] Stop: 02/20/23 08:59 Last Admin: 01/21/23 07:50 Dose: 20 meq Prednisone (Prednisone 5 Mg Tab) 5 mg PO HS [facility] Stop: 02/20/23 01:05 Last Admin: 01/21/23 01:50 Dose: 5 mg Spironolactone (Spironolactone 25 Mg Tab) 25 mg PO BID [facility] Stop: 02/20/23 08:59 Last Admin: 01/21/23 07:49 Dose: 25 mg PG Care Time/CCT Total # of Minutes Spent Total Time Spent with Patient: Total time spent is greater than 50% in coordination of care (as documented) at patient's floor/unit and/or counseling patient: Coding Level of Care Code 48817 INT INP/OBS CARE 3/75MIN Diagnoses Atrial fibrillation with RVR I48.91 Elevated troponin R77.8 Tachy-lina syndrome I49.5 HTN (hypertension) I10
[2023-01-21] MEDS: AMIODARONE / D5W 360 MG/200 ML BAG IV SCH (16:37)
--- NOTE | 2023-01-21 18:22 | XCELERA ---
[id number] [id number]
--- NOTE | 2023-01-21 18:35 | Billing Data ---
Date of Service January 21, 2023 Coding Level of Care Code 43305 SUB INP/OBS CARE
[2023-01-21] MEDS ORDERED: Heparin IV Adult Wt-Based Standard WITH Bolus Protocol IV SCH (21:17)
[2023-01-21] MEDS ORDERED: HEPARIN SOD (PORCINE) 1000 UNIT/ML IV ONE (21:45)
--- NOTE | 2023-01-21 22:01 | Billing Data ---
Date of Service January 21, 2023 Coding Level of Care Code 45984 INT INP/OBS CARE
[2023-01-21 23:37] LABS: Partial Thromboplastin Ratio 0.9; Partial Thromboplastin Time 24.9 Seconds (21.0-31.0); Prothrombin Time 10.9 Seconds (9.0-12.0)
[2023-01-21 23:44] LABS: Basophils # (auto) 0.04 K/uL (0.00-0.20); Basophils % (auto) 0.6 %; Eosinophils # (auto) 0.21 K/uL (0.00-0.50); Eosinophils % (auto) 3.4 %; Hematocrit (blood only) 33.5 % (37.0-47.0); Hemoglobin 10.4 g/dl (12.0-16.0); Immature Granulocytes # (auto) 0.02 K/uL (0.01-0.20); Immature Granulocytes % (auto) 0.3 %; Lymphocytes # (auto) 1.62 K/uL (1.20-3.40); Lymphocytes % (auto) 26.1 %; Mean Corpuscular Hemoglobin 25.6 pg (25.0-34.0); Mean Corpuscular Volume 82.5 fL (80.0-100.0); Mean Platelet Volume 10.2 fL (9.4-12.4); Monocytes % (auto) 8.1 %; Neutrophils # (auto) 3.82 K/uL (1.40-6.50); Neutrophils % (auto) 61.5 %; Platelet Count 346 K/uL (130-400); RDW Coefficient of Variation 18.4 % (11.5-14.5); RDW Standard Deviation 54.3 fL (36.4-46.3); Red Blood Count 4.06 M/uL (4.20-5.40); White Blood Count 6.21 K/ul (4.8-10.8)
[2023-01-21] MEDS: HEPARIN SODIUM/DEXTROSE 25,000 UNITS/500 ML BAG IV SCH (23:49)
[2023-01-22] MEDS: AMIODARONE / D5W 360 MG/200 ML BAG IV SCH ×2 (04:28→17:04)
[2023-01-22 06:07] LABS: Basophils # (auto) 0.05 K/uL (0.00-0.20); Basophils % (auto) 0.7 %; Eosinophils # (auto) 0.16 K/uL (0.00-0.50); Eosinophils % (auto) 2.1 %; Hematocrit (blood only) 37.8 % (37.0-47.0); Hemoglobin 11.5 g/dl (12.0-16.0); Immature Granulocytes # (auto) 0.03 K/uL (0.01-0.20); Immature Granulocytes % (auto) 0.4 %; Mean Corpuscular Hgb Conc 30.4 g/dL (32.0-36.0); Mean Corpuscular Volume 82.2 fL (80.0-100.0); Mean Platelet Volume 9.8 fL (9.4-12.4); Monocytes # (auto) 0.44 K/uL (0.11-0.59); Monocytes % (auto) 5.8 %; Neutrophils # (auto) 5.34 K/uL (1.40-6.50); Platelet Count 363 K/uL (130-400); RDW Coefficient of Variation 18.5 % (11.5-14.5); RDW Standard Deviation 54.3 fL (36.4-46.3); White Blood Count 7.62 K/ul (4.8-10.8)
[2023-01-22 06:25] LABS: BUN Creatinine Ratio 11.9 (10-20); Creatinine Clr Calc Pharmacy 30.3 ml/min; Est GFR (African American) 25.8 ml/min; Est GFR (Non-African American) 22.3 ml/min; Magnesium 2.2 mg/dl (1.7-2.4)
[2023-01-22] MEDS: LEVOTHYROXINE SODIUM 137 MCG TABLET PO SCH (06:33)
[2023-01-22 06:57] LABS: Partial Thromboplastin Ratio 2.6
[2023-01-22 07:01] LABS: Partial Thromboplastin Time 74.4 Seconds (21.0-31.0)
--- NOTE | 2023-01-22 07:57 | Hospitalist Progress Note ---
Date of Service January 22, 2023 Assessment & Plan (1) Paroxysmal atrial fibrillation: (2) SI joint arthritis: (3) Hyperlipidemia associated with type 2 diabetes mellitus: (4) Osteoarthritis, knee: (5) GERD (gastroesophageal reflux disease): (6) Depression: (7) Anxiety: (8) Chronic kidney disease with active medical management without dialysis, stage 3 (moderate): (9) Hypertension: (10) Mild persistent asthma: (11) Type II diabetes mellitus: (12) Iron deficiency anemia: (13) Hypothyroidism: Plan 7 year old female w/ PmHx osteoarthritis, HTN, T2DM, CKD, mild persistent asthma, allergic rhinitis, sialoadenitis, paroxysmal atrial fibrillation on Eliquis admitted for A fib w/ RVR. Paroxysmal A. fib with rapid ventricular response -Past history of paroxysmal A. fib diagnosed 3 years ago. -ECHO: Moderate to Severe reduced systolic function EF 30-35%, Globla hypokinesis. Mild concentric left ventricular hyperthrophy, Moderate biatrial dilation (LV has decline compared to prior in 2020 -Given diltiazem 20mg IV in the ED with rates coming down thereafter. -Consulted cardiology, will appreciate recommendations. - Amiodarone started -Continue home Eliquis 5mg -Keep K >4, Mg >2. -follow labs am Tachybradycardia syndrome -Past hx with low dose metoprolol - pacemaker schedule for tomorrow -Patient on heparin drip, will stop 4 hours before -NPO after midnight Global hypokinesis EF 30-35% -Probably due to current paroxysmal A.Fib -Patient denied SOB or chest pain -Cardiology recommendation: -Due to bradycardia, will not be cannot place her on appropriate heart failure medications due to bradycardia. History of asthma: -continue home inhaler regimen of budesonide-formoterol BID, Xopenex PRN. Chronic steroid use: -Patient had been on steroids orally previously and had tried to wean down but had issues with 4mg -Continue 5mg daily prednisone while inpatient. HTN: -Continue home spironolactone, nifedipine. osteoarthritis: -Tylenol PRN for pain. T2DM: -A1c 6.7, holding home diabetes medications while inpatient. -If glucoses start to creep up can add on SSI coverage. CKD: -Creatinine 1.81 on admission, baseline 1.6-1.8. -Avoid nephrotoxic agents. -Monitor with daily BMP. Iron deficiency anemia: -Hemoglobin 11.2 on admission, baseline 11-12. -Monitor with daily CBC. Depression/Anxiety: -continue duloxetine. GERD: -continue home nexium F/E/N/GI: Heart Healthy DVT Prophylaxis: Continue home Eliquis. Code status: Full code. Dispo: PCU/tele. Admission and Anticipated Discharge Date Admission Date: January 20, 2023 Supervising Physician Co-Signing Physician Notes I personally examined the patient and verified all ellis points of history and exam, discussed case, and agree with decision making with Dr Rodrick Ferreira feeling ok for pacer tomorrow vitals noted nad heent nc at mmm breathing unlabored no accessory muscles good effort sick sinus syndrome -rate control is poor -would benefit from pacer -for placement thursday dilated cardiomyopathy -rhythm most likely -consider ischemic cause -follow closely now otherwise as above Subjective Mike is a 77 year old female w/ PmHx osteoarthritis, HTN, T2DM, CKD, mild persistent asthma, allergic rhinitis, sialoadenitis, paroxysmal atrial fibrillation on eliquis coming in for persistent atrial fibrillation. Patient states that last night she was getting up to go to the bathroom when she had felt a little short of breath. Her fitbit had told her the heart rate was elevated and irregular. She contacted the cardiology office this morning and they performed an EKG which showed A. fib with RVR and she was instructed to go to the ED if it persisted past 24 hours. Her history of atrial fibrillation goes back to December of 2019 when she was having hip surgery and it was spotted on routine monitoring. She states whenever she gets atrial fibrillation it usually lasts for a short period of time such as 30 minutes to a few hours. She is usually able to tell this from her fitbit since the high heart rates are not generally accompanied by symptoms. She denies any recent fevers, chills, diarrhea, constipation, headaches, cough, shortness of breath currently, chest pain, congestion. She was not doing anything physically exerting when the onset happened, she says just walking to the bathroom. Patient evaluated at bedside found AAOx3, in no acute distress. She denied SOB, nausea,abdominal pain, vomits , diarrhea, or any other symptoms. Pacemaker for tomorrow am, NPO after midnight Review of Systems Review of Systems: as per hpi Physical Exam ENMT: external ear and nose normal, oropharynx normal Respiratory: normal respiratory effort, lungs clear to auscultation Cardiovascular: Rate/Rhythm: + irregularly irregular Heart Sounds: normal S1 and normal S2; no gallop and no murmur Gastrointestinal (Abdomen): normal bowel sounds, soft, nontender, no hepatosplenomegaly Musculoskeletal: no cyanosis or clubbing, extremities motor strength 5/5 Results & Data Results & Data Vital Signs (Past 12 Hours) Vital Signs Temp Pulse Pulse Resp BP Pulse Ox O2 Del Method 01/22/23 07:38 36.7 C 95 H 16 132/87 9 L Room Air 01/22/23 04:22 36.8 C 97 H 18 127/83 97 Room Air 01/21/23 23:00 115 H 01/21/23 23:35 36.8 C 107 H 18 135/79 99 Room Air Resident Activity Tracking Resident Involvement: Resident Care Provided Care Provided: Adult Hospital Medicine (5) GERD (gastroesophageal reflux disease) Esophagitis presence: esophagitis presence not specified Qualified Code(s): K21.9 - Gastro-esophageal reflux disease without esophagitis (11) Type II diabetes mellitus Chronic kidney disease stage: stage 4 (severe) 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 complication detail: with chronic kidney disease 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 complication status: with kidney complications 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 intermediate designer insulin use: without intermediate designer use Qualified Code(s): E11.22 - Type 2 diabetes mellitus with diabetic chronic kidney disease; N18.4 - Chronic kidney disease, stage 4 (severe)
[2023-01-22] MEDS: FLUTICASONE/VILANTEROL 100/25MCG 14 PUFFS/INHALER INH SCH (09:11)
[2023-01-22] MEDS: MONTELUKAST SODIUM 10 MG TABLET PO SCH (09:12)
[2023-01-22] MEDS: SPIRONOLACTONE 25 MG TAB PO SCH ×2 (09:12→21:03)
[2023-01-22] MEDS: DULoxetine HCL 60 MG CAP PO SCH (09:12)
[2023-01-22] MEDS: MAGNESIUM OXIDE 400 MG TAB PO SCH ×2 (09:12→21:04)
[2023-01-22] MEDS: CALCITRIOL 0.25 MCG CAPSULE PO SCH (09:12)
[2023-01-22] MEDS: POTASSIUM CHLORIDE CRTAB 20 MEQ TABCR PO SCH (09:12)
--- NOTE | 2023-01-22 09:41 | Cardiology Progress Note ---
Date of Service January 22, 2023 Assessment & Plan (1) Atrial fibrillation with RVR: (2) Tachy-lina syndrome: (3) Elevated troponin: (4) HTN (hypertension): Plan ASSESSMENT/PLAN: 1. Atrial fibrillation with rapid ventricular response: Paroxysmal. She has continued to have paroxysmal atrial fibrillation, the rate during atrial fibrillation is somewhat fast and she will need rate control for that. Additionally with conversion she has pauses and sometimes a junctional rhythm, although relatively asymptomatic it is worrisome. 2. Tachybradycardia syndrome: Concern in the past for sinus bradycardia while on very low-dose metoprolol. Now with postconversion pauses as well as atrial fibrillation with a somewhat rapid heart rate, we will need more definitive attempts at rate control which will require a pacemaker (dual-chamber since she has intact AV conduction and we hope to maintain sinus rhythm) and rate controlling medications. I discussed pacemaker implantation with her, she understands and agrees and I have tentatively scheduled her for tomorrow morning at 8:00. She did receive Eliquis yesterday so her anticoagulation status should be acceptable. I will stop heparin 4 hours before. 3. Atrial flutter: Plan as above. Seems to have episodes of atrial flutter and atrial fibrillation. 4. Elevated troponin: High-sensitivity troponin slightly elevated on presentation and likely due to demand ischemia in the setting of RVR. Ischemic evaluation not necessary at this time. 5. Hypertension: Blood pressure had been mostly mildly elevated, over the past 24 hours it has been good. Admission and Anticipated Discharge Date Admission Date: January 20, 2023 Subjective She is feeling well today, she remains asymptomatic with regard to her atrial fibrillation as well as her pauses and bradycardia. She has not been out of bed much which might explain some of the lack of symptoms. Her left ventricular ejection fraction has fallen and currently we cannot place her on appropriate heart failure medications due to bradycardia. Results & Data Vital Signs (Past 12 Hours) Vital Signs Temp Pulse Pulse Resp BP Pulse Ox O2 Del Method 01/22/23 07:38 36.7 C 95 H 16 132/87 9 L Room Air 01/22/23 04:22 36.8 C 97 H 18 127/83 97 Room Air 01/21/23 23:00 115 H 01/21/23 23:35 36.8 C 107 H 18 135/79 99 Room Air Laboratory Results Coagulation 01/21/23 01/22/23 Range/Units 22:27 05:43 PT 10.9 (9.0-12.0) Seconds APTT 24.9 74.4 H* (21.0-31.0) Seconds CBC 01/21/23 01/22/23 Range/Units 23:16 05:43 WBC 6.21 7.62 (4.8-10.8) K/ul RBC 4.06 L 4.60 (4.20-5.40) M/uL Hgb 10.4 L 11.5 L (12.0-16.0) g/dl Hct 33.5 L 37.8 (37.0-47.0) % Plt Count 346 363 (130-400) K/uL Neut # (Auto) 3.82 5.34 (1.40-6.50) K/uL Lymph # (Auto) 1.62 1.60 (1.20-3.40) K/uL Hernando # (Auto) 0.50 0.44 (0.11-0.59) K/uL Eos # (Auto) 0.21 0.16 (0.00-0.50) K/uL Baso # (Auto) 0.04 0.05 (0.00-0.20) K/uL Comprehensive Metabolic Panel 01/21/23 01/22/23 Range/Units 08:54 05:43 Sodium 140 138 (136-145) mmol/L Potassium 3.5 4.0 (3.5-5.1) mmol/L Chloride 107 105 (98-107) mmol/L Carbon Dioxide 23 23 (21-32) mmol/L BUN 24 H 25 H (6-23) mg/dl Creatinine 1.82 H 2.10 H (0.6-1.2) mg/dl Glucose 172 H 143 H (70-99(Fasting)) mg/dl Calcium 9.0 9.0 (8.6-10.3) mg/dl Intake and Output 01/21/23 01/22/23 01/22/23 22:59 06:59 14:59 Intake Total 245.368 / 1552.895 152.527 / 1552.895 216 / 216 Output Total Balance 245.368 / 1551.895 151.527 / 1551.895 216 / 216 Intake: IV 245.368 / 497.895 152.527 / 497.895 216 / 216 Amiodarone / D5w 360 mg In 200 245.368 / 397.895 152.527 / 397.895 ml @ 0.5 MG/MIN 16.667 mls/hr IV .Q12H [facility] Rx#:[id number] Heparin Sodium/Dextrose 25,000 216 / 216 units In 500 ml @ 1,500 UNITS/ HR 30 mls/hr IV .[id number] [facility] Rx #:[id number] Output: Urine Other: # Unmeasured Voids 1 Weight 104.4 kg Weight Measurement Method Standing Scale Diagnostic Findings Telemetry: Mostly atrial fibrillation with a moderately rapid heart rate, frequent conversions to sinus rhythm for brief periods of time. With conversion there are multiple pauses with periods of junctional rhythm off and before resumption of sinus rhythm. PG Care Time/CCT Total # of Minutes Spent Total Time Spent with Patient: Total time spent is greater than 50% in coordination of care (as documented) at patient's floor/unit and/or counseling patient: Coding Level of Care Code 41927 SUB INP/OBS CARE 3/50MIN Diagnoses Atrial fibrillation with RVR I48.91 Tachy-lina syndrome I49.5 Elevated troponin R77.8 HTN (hypertension) I10
[2023-01-22] MEDS: NITROGLYCERIN 0.4 MG/HR PATCH TD SCH (10:45)
--- NOTE | 2023-01-22 13:14 | Billing Data ---
Date of Service January 22, 2023 Coding Level of Care Code 85044 SUB INP/OBS CARE
[2023-01-22 14:04] LABS: Partial Thromboplastin Ratio 1.9
[2023-01-22] MEDS: HEPARIN SODIUM/DEXTROSE 25,000 UNITS/500 ML BAG IV SCH (17:05)
[2023-01-22] MEDS ORDERED: FLUTICASONE/VILANTEROL 100/25MCG 14 PUFFS/INHALER INH SCH (21:00)
[2023-01-22] MEDS: predniSONE 5 MG TAB PO SCH (21:04)
[2023-01-22] MEDS: NIFEdipine EXTENDED REL 30 MG TABCR PO SCH (21:04)
[2023-01-22] MEDS ORDERED: diphenhydrAMINE Capsule 25 MG CAP PO ONE (21:19)
[2023-01-23] MEDS ORDERED: HEPARIN STOP ORDER ONE (04:00)
[2023-01-23] MEDS: AMIODARONE / D5W 360 MG/200 ML BAG IV SCH ×2 (04:00→17:08)
[2023-01-23] MEDS ORDERED: CLINDAMYCIN/D5W 900 MG/50 ML BAG IV SCH (06:00)
[2023-01-23] MEDS ORDERED: 300mg Preop IV SCH (06:00)
[2023-01-23] MEDS ORDERED: 600mg Preop IV SCH (06:00)
[2023-01-23] MEDS: LEVOTHYROXINE SODIUM 137 MCG TABLET PO SCH (06:37)
[2023-01-23 06:49] LABS: Basophils # (auto) 0.05 K/uL (0.00-0.20); Basophils % (auto) 0.9 %; Eosinophils # (auto) 0.09 K/uL (0.00-0.50); Eosinophils % (auto) 1.6 %; Hematocrit (blood only) 34.5 % (37.0-47.0); Immature Granulocytes # (auto) 0.02 K/uL (0.01-0.20); Immature Granulocytes % (auto) 0.4 %; Lymphocytes # (auto) 1.46 K/uL (1.20-3.40); Lymphocytes % (auto) 25.7 %; Mean Corpuscular Hemoglobin 25.7 pg (25.0-34.0); Mean Corpuscular Hgb Conc 31.9 g/dL (32.0-36.0); Mean Corpuscular Volume 80.6 fL (80.0-100.0); Mean Platelet Volume 10.1 fL (9.4-12.4); Monocytes # (auto) 0.43 K/uL (0.11-0.59); Monocytes % (auto) 7.6 %; Neutrophils # (auto) 3.64 K/uL (1.40-6.50); Neutrophils % (auto) 63.8 %; Platelet Count 345 K/uL (130-400); RDW Coefficient of Variation 18.3 % (11.5-14.5); RDW Standard Deviation 52.8 fL (36.4-46.3); Red Blood Count 4.28 M/uL (4.20-5.40); White Blood Count 5.69 K/ul (4.8-10.8)
[2023-01-23 07:06] LABS: BUN Creatinine Ratio 10.9 (10-20); Calcium 9.1 mg/dl (8.6-10.3); Creatinine Clr Calc Pharmacy 32.8 ml/min; Est GFR (African American) 28.6 ml/min; Est GFR (Non-African American) 24.7 ml/min; Potassium 4.1 mmol/L (3.5-5.1)
[2023-01-23] MEDS ORDERED: VANCOMYCIN HCL 1000MG/20ML VIAL ONE (07:08)
[2023-01-23] MEDS ORDERED: BACITRACIN OINT 0.9 GM PKT ONE (07:08)
[2023-01-23] MEDS ORDERED: WATER, STERILE FOR INJ 10 ML VIAL ONE (07:08)
[2023-01-23] MEDS ORDERED: LIDOCAINE 1% LOCAL 20 ML VIAL ONE (07:08)
--- NOTE | 2023-01-23 07:26 | Hospitalist Progress Note ---
Date of Service January 23, 2023 Assessment & Plan (1) Paroxysmal atrial fibrillation: (2) SI joint arthritis: (3) Hyperlipidemia associated with type 2 diabetes mellitus: (4) Osteoarthritis, knee: (5) GERD (gastroesophageal reflux disease): (6) Depression: (7) Anxiety: (8) Chronic kidney disease with active medical management without dialysis, stage 3 (moderate): (9) Hypertension: (10) Mild persistent asthma: (11) Type II diabetes mellitus: (12) Iron deficiency anemia: (13) Hypothyroidism: Plan 7 year old female w/ PmHx osteoarthritis, HTN, T2DM, CKD, mild persistent asthma, allergic rhinitis, sialoadenitis, paroxysmal atrial fibrillation on Eliquis admitted for A fib w/ RVR. Paroxysmal A. fib with rapid ventricular response -Past history of paroxysmal A. fib diagnosed 3 years ago. -ECHO: Moderate to Severe reduced systolic function EF 30-35%, Globla hypokinesis. Mild concentric left ventricular hyperthrophy, Moderate biatrial dilation (LV has decline compared to prior in 2020 -Given diltiazem 20mg IV in the ED with rates coming down thereafter. -Consulted cardiology, will appreciate recommendations. - Amiodarone started -Continue home Eliquis 5mg -Keep K >4, Mg >2. -follow labs am Tachybradycardia syndrome -Past hx with low dose metoprolol - pacemaker scheduled for today, will follow cardiology recommendations Global hypokinesis EF 30-35% -Probably due to current paroxysmal A.Fib -Patient denied SOB or chest pain -Cardiology recommendation: -Due to bradycardia, will not be cannot place her on appropriate heart failure medications due to bradycardia. History of asthma: -continue home inhaler regimen of budesonide-formoterol BID, Xopenex PRN. Chronic steroid use: -Patient had been on steroids orally previously and had tried to wean down but had issues with 4mg -Continue 5mg daily prednisone while inpatient. HTN: -Continue home spironolactone, nifedipine. osteoarthritis: -Tylenol PRN for pain. T2DM: -A1c 6.7, holding home diabetes medications while inpatient. -If glucoses start to creep up can add on SSI coverage. CKD: -Creatinine 1.81 on admission, baseline 1.6-1.8. -Avoid nephrotoxic agents. -Monitor with daily BMP. Iron deficiency anemia: -Hemoglobin 11.2 on admission, baseline 11-12. -Monitor with daily CBC. Depression/Anxiety: -continue duloxetine. GERD: -continue home nexium F/E/N/GI: Heart Healthy DVT Prophylaxis: Continue home Eliquis. Code status: Full code. Dispo: PCU/tele. Admission and Anticipated Discharge Date Admission Date: January 20, 2023 Supervising Physician Co-Signing Physician Notes I personally examined the patient and verified all ellis points of history and exam, discussed case, and agree with decision making with Dr Rodrick Ferreira post op soreness. later chest pain -> when i see her she's asleep vitals noted nad heent nc at mmm breathing unlabored no accessory muscles good effort. EKG afib ~[address] T changes. trop noted sick sinus syndrome -now post pacer elevated trop -suspect CP is all upper GI, trop almost certainly just procedural - trend/signed out to night coverage, but with CP sounding GI in origin, EKG without ischemic changes, pt sleeping comfortably after GI cocktail/pepci d/protonix - not likely to be cardiac dilated cardiomyopathy -rhythm most likely -consider ischemic cause -follow closely now otherwise as above Subjective Mike is a 77 year old female w/ PmHx osteoarthritis, HTN, T2DM, CKD, mild persistent asthma, allergic rhinitis, sialoadenitis, paroxysmal atrial fibrillation on eliquis coming in for persistent atrial fibrillation. Patient states that last night she was getting up to go to the bathroom when she had felt a little short of breath. Her fitbit had told her the heart rate was elevated and irregular. She contacted the cardiology office this morning and they performed an EKG which showed A. fib with RVR and she was instructed to go to the ED if it persisted past 24 hours. Her history of atrial fibrillation goes back to December of 2019 when she was having hip surgery and it was spotted on routine monitoring. She states whenever she gets atrial fibrillation it usually lasts for a short period of time such as 30 minutes to a few hours. She is usually able to tell this from her fitbit since the high heart rates are not generally accompanied by symptoms. She denies any recent fevers, chills, diarrhea, constipation, headaches, cough, shortness of breath currently, chest pain, congestion. She was not doing anything physically exerting when the onset happened, she says just walking to the bathroom. Patient evaluated at bedside found AAOx3, in no acute distress. She denied SOB, nausea,abdominal pain, vomits , diarrhea, or any other symptoms. Pacemaker placement today. Review of Systems Review of Systems: as per HPI Physical Exam ENMT: external ear and nose normal, oropharynx normal Respiratory: normal respiratory effort, lungs clear to auscultation Cardiovascular: Rate/Rhythm: + irregularly irregular Heart Sounds: normal S1 and normal S2; no gallop and no murmur Gastrointestinal (Abdomen): normal bowel sounds, soft, nontender, no hepatosplenomegaly Musculoskeletal: no cyanosis or clubbing, extremities motor strength 5/5 Results & Data Results & Data Vital Signs (Past 12 Hours) Vital Signs Temp Pulse Pulse Resp BP Pulse Ox O2 Del Method 01/23/23 07:02 36.8 C 108 H 19 117/72 98 Room Air 01/23/23 03:57 37 C 108 H 17 137/89 98 Room Air 01/23/23 03:11 61 01/22/23 23:30 37.0 C 54 L 18 120/85 98 Room Air Resident Activity Tracking Resident Involvement: Resident Care Provided Care Provided: Adult Hospital Medicine (5) GERD (gastroesophageal reflux disease) Esophagitis presence: esophagitis presence not specified Qualified Code(s): K21.9 - Gastro-esophageal reflux disease without esophagitis (11) Type II diabetes mellitus Chronic kidney disease stage: stage 4 (severe) 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 complication detail: with chronic kidney disease 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 complication status: with kidney complications 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 buttermaker continuous churn insulin use: without buttermaker continuous churn use Qualified Code(s): E11.22 - Type 2 diabetes mellitus with diabetic chronic kidney disease; N18.4 - Chronic kidney disease, stage 4 (severe)
[2023-01-23 07:31] LABS: Partial Thromboplastin Ratio 0.9; Partial Thromboplastin Time 25.1 Seconds (21.0-31.0)
--- NOTE | 2023-01-23 08:31 | Pre Anesthesia Assessment ---
Date of Service January 23, 2023 Pre Sedation Assessment Vital Signs Temp Pulse Pulse Resp BP BP Pulse Ox 01/23/23 07:56 105 H 14 120/93 92 01/23/23 07:02 36.8 C 108 H 19 117/72 98 01/23/23 03:57 37 C 108 H 17 137/89 98 01/23/23 03:11 61 01/22/23 23:30 37.0 C 54 L 18 120/85 98 01/22/23 19:16 36.8 C 108 H 18 143/86 H 98 01/22/23 14:21 73 01/22/23 16:04 36.7 C 111 H 18 135/80 97 01/22/23 10:45 36.9 C 108 H 18 153/81 H 97 O2 Del Method 01/23/23 07:56 Room Air 01/23/23 07:02 Room Air 01/23/23 03:57 Room Air 01/23/23 03:11 01/22/23 23:30 Room Air 01/22/23 19:16 Room Air 01/22/23 14:21 01/22/23 16:04 Room Air 01/22/23 10:45 Room Air Cardiovascular + irregularly irregular + S1 normal Respiratory normal respiratory effort, lungs clear to auscultation Pre-Sedation Airway Assessment Smoking Status: Never smoker Short, Thick Neck: No Thyromental Distance: > or= 3.5 Finger Breadths Oral Cavity: + Dental Abnormalities Mallampati Class: III ASA: ASA3 NPO Status Date of Last Intake of Fluids: 01/22/23 Time of Last Intake of Fluids: 20:00 Date of Last Intake of Solid Food: 01/22/23 Time of Last Intake of Solid Foods: 16:30 Procedure Planning Contraindications for Sedation: none Current Medications Reviewed: Yes Notes The planned sedation has been discussed with the patient. Informed Consent was obtained. I have identified the patient, determined the appropriateness of sedation and have assessed the patient immediately prior to the procedure. All medicine(s) and interventions are by my order.
--- NOTE | 2023-01-23 08:32 | History & Physical Bridge Note ---
Date of Service January 23, 2023 History & Physical Bridge Note I have examined the patient, reviewed the History & Physical and in the interval since the performance of the History & Physical I have noted the following changes of clinical significance: no changes noted. I reviewed the indications, procedure, risks and alternatives with the patient, and answered all questions. Patient understands and agrees to the procedure. Consent obtained. I also reviewed the risks and use of sedation, patient understands and consent obtained.
[2023-01-23] MEDS ORDERED: fentaNYL citrate PF 100 MCG/2 ML VIAL ONE (08:43)
[2023-01-23] MEDS ORDERED: MIDAZOLAM HCL 5 MG/ML 1 ML VIAL ONE (08:43)
--- NOTE | 2023-01-23 10:10 | Electrophysiology Report ---
Date of Service January 23, 2023 Electrophysiology Procedure Electrophysiology Procedure Report Preoperative diagnosis: Tachybradycardia syndrome, paroxysmal atrial fibrillation Postoperative diagnosis: Same Procedure: Dual-chamber left bundle branch pacemaker implantation Surgeon: David Mitchell MD Estimated blood loss: 20 cc Complications: None Disposition: Psychology Clinician recovery Procedure details: After obtaining informed consent for the procedure, the patient was brought to the laboratory and prepped and draped in the standard sterile manner. The left prepectoral region was anesthetized with 1% lidocaine local anesthetic and left axillary venipuncture was performed by percutaneous technique and a guidewire placed through the left subclavian vein into the superior vena cava. The area was further infiltrated with 1% lidocaine local anesthetic and a 5 cm incision was made parallel to the left clavicle and 2 cm below it and carried down to the anterior pectoralis fascia. A pacemaker pocket was formed by blunt dissection anterior to the pectoralis fascia and a vancom ycin-soaked sponge was placed in the pocket. An 8.5 Chinese Medtronic lead introducer was placed over the guidewire into the left subclavian vein, the dilator and guidewire were removed and a bipolar active fixation steroid tipped atrial lead was advanced through the introducer into the superior vena cava. A guidewire was placed through the introducer and the introducer was stripped from the lead and guidewire. A 7 Chinese Medtronic lead introducer was placed over the guidewire into the left subclavian vein, the dilator and guidewire were removed. A C315 His 02 septal sheath was advanced through the introducer over a guidewire and advanced into the right ventricular outflow tract. The guidewire and dilator were removed and the sheath was positioned in a mid septal location. A bipolar active fixation steroid tipped ventricular lead was advanced through the introducer and rotated to advance the screw into the septum. Septal penetration was confirmed by lead motion. Pacing and sensing thresholds were evaluated in bipolar configuration and are noted on the data sheet. The septal sheath was stripped away from the lead. A guidewire was placed back through the introducer and the introducer was removed over the the guidewire. The atrial lead was positioned in the region of the atrial appendage and the screw extended fixing the lead in position. Sensing thresholds were evaluated in bipolar configuration and are recorded on the implant data sheet (atrial fibrillation was present so pacing could not be tested). Once the leads were in position they were attached to the anterior pectoralis fascia using 2 sutures of 2-0 silk around each lead collar. The vancomycin soaked sponge was removed from the pocket, hemostasis was obtained, the pacemaker was attached to the leads and placed in the pocket with the leads coiled beneath it. The incision was closed with a running double subcutaneous closure of 3-0 Vicryl absorbable suture, followed by running subcuticular skin closure of 4-0 Vicryl absorbable suture. Bacitracin ointment was placed on the incision and a dressing applied. [facility] Electrophysiology codes Indication for Procedure (1) Tachy-lina syndrome: Pacing Procedure 1: Pacin Insert/Replace Pacer A & V PG Moderate Sedation Codes Moderate Sedation Codes Procedure 1: Sedation/Anesthesia: 02651 Mod Sedation by the same physician;Init15 Min Child Age 5 & Up Procedure 2: Sedation/Anesthesia: 11877 Mod Sedation by the same physician; Ea [id number] Minutes
[2023-01-23] MEDS: CALCITRIOL 0.25 MCG CAPSULE PO SCH (11:14)
[2023-01-23] MEDS: FLUTICASONE/VILANTEROL 100/25MCG 14 PUFFS/INHALER INH SCH (11:15)
[2023-01-23] MEDS: MONTELUKAST SODIUM 10 MG TABLET PO SCH (11:15)
[2023-01-23] MEDS: DULoxetine HCL 60 MG CAP PO SCH (11:16)
[2023-01-23] MEDS: POTASSIUM CHLORIDE CRTAB 20 MEQ TABCR PO SCH (11:16)
[2023-01-23] MEDS: MAGNESIUM OXIDE 400 MG TAB PO SCH ×2 (11:17→20:58)
[2023-01-23] MEDS: SPIRONOLACTONE 25 MG TAB PO SCH ×2 (11:18→20:58)
[2023-01-23] MEDS: NITROGLYCERIN 0.4 MG/HR PATCH TD SCH (11:20)
[2023-01-23] MEDS: carvediloL 12.5 MG TAB PO SCH ×2 (11:26→18:09)
[2023-01-23] MEDS: ACETAMINOPHEN 325 MG TAB PO PRN ×2 (11:27→16:20)
--- NOTE | 2023-01-23 13:38 | Post Anesthesia Assessment ---
Date of Service January 23, 2023 Post Sedation Assessment Vital Signs Temp Pulse Pulse Resp BP BP Pulse Ox 01/23/23 12:00 101 H 18 111/73 94 01/23/23 11:30 110 H 01/23/23 11:00 36.5 C 111 H 18 141/96 H 94 01/23/23 10:35 104 H 14 154/111 H 91 01/23/23 10:22 133 H 18 143/111 H 90 01/23/23 07:56 105 H 14 120/93 92 01/23/23 07:02 36.8 C 108 H 19 117/72 98 01/23/23 03:57 37 C 108 H 17 137/89 98 01/23/23 03:11 61 01/22/23 23:30 37.0 C 54 L 18 120/85 98 01/22/23 19:16 36.8 C 108 H 18 143/86 H 98 01/22/23 14:21 73 01/22/23 16:04 36.7 C 111 H 18 135/80 97 O2 Del Method 01/23/23 12:00 Room Air 01/23/23 11:30 01/23/23 11:00 Room Air 01/23/23 10:35 Room Air 01/23/23 10:22 Room Air 01/23/23 07:56 Room Air 01/23/23 07:02 Room Air 01/23/23 03:57 Room Air 01/23/23 03:11 01/22/23 23:30 Room Air 01/22/23 19:16 Room Air 01/22/23 14:21 01/22/23 16:04 Room Air Recovery Score Activity: Moves 4 extremities Respiration: Deep Breath/Cough Circulation: +/-20% PreAnes Value Consciousness: Fully Awake Oxygen Saturation: > 92% On Room Air Post Anesthesia Score: 10 Discharge Sedation Level of Care: Fast Track Phase II Post Sedation Plan On clinical assessment, the patient appears to have tolerated the sedation without complications. Patient is recovering as anticipated. Patient will continue to be monitored by nursing and may be discharged when sedation discharge criteria are met per below protocol. Upon Completions of procedure up to 15 minutes continue every 5 minute vital signs and the P.A.R. score; then discharge to a Phase I or Fast Track to Phase II per the following guidelines: * Discharge Patient to appropriate Phase II area if PAR is 8 or greater or return to pre- procedure baseline. The post - procedure orders will be as directed. * If PAR score is less than 8 or not return to pre-procedure baseline then patient will follow Phase I monitoring till PAR is reached for Phase II. The Phase I may be done in procedure room or may call to secure a Phase I area. * If naloxone or flumazenil are used for reversal, hold in Phase I for continued monitoring from when last reversal dose was given for a minimum of 60 minutes or longer pending the nurse and/or physician discretion of patient condition before discharge to Phase II. Please call the Sedation Physician to re-evaluate and complete post-note for discharge to Phase II area. Do NOT discharge from procedure sedation or Phase 1 until post- sedation evaluation note is complete by procedure /sedation MD Sedation Discharge Instructions to be given to the patient at discharge to home.
[2023-01-23] MEDS ORDERED: LIDOCAINE VISCOUS 2% 15 ML UDC PO ONE (16:28)
[2023-01-23] MEDS: LACTATED RINGER'S 1,000 ML IV SCH (16:28)
[2023-01-23] MEDS ORDERED: ALUMINUM/MAGNESIUM SUSP 30 ML UDC PO STA (16:34)
[2023-01-23] MEDS ORDERED: PANTOprazole 40 MG TAB PO ONE (16:45)
[2023-01-23] MEDS: AMIODARONE 200 MG TAB PO SCH (18:07)
[2023-01-23] MEDS ORDERED: Heparin IV Adult Wt-Based Standard *NO* Bolus Protocol IV SCH (18:30)
--- NOTE | 2023-01-23 19:23 | Billing Data ---
Date of Service January 23, 2023 Coding Level of Care Code 00670 SUB INP/OBS CARE
[2023-01-23] MEDS: HEPARIN SODIUM/DEXTROSE 25,000 UNITS/500 ML BAG IV SCH (20:46)
[2023-01-23] MEDS: NIFEdipine EXTENDED REL 30 MG TABCR PO SCH (20:57)
[2023-01-23] MEDS: PANTOprazole 40 MG TAB PO SCH (20:57)
[2023-01-23] MEDS: predniSONE 5 MG TAB PO SCH (20:58)
[2023-01-23] MEDS ORDERED: APIXABAN 5 MG TABLET PO SCH (21:00)
[2023-01-24 04:50] LABS: Basophils # (auto) 0.03 K/uL (0.00-0.20); Basophils % (auto) 0.5 %; Eosinophils # (auto) 0.12 K/uL (0.00-0.50); Eosinophils % (auto) 1.9 %; Hematocrit (blood only) 35.6 % (37.0-47.0); Hemoglobin 11.1 g/dl (12.0-16.0); Immature Granulocytes # (auto) 0.02 K/uL (0.01-0.20); Immature Granulocytes % (auto) 0.3 %; Lymphocytes # (auto) 0.97 K/uL (1.20-3.40); Lymphocytes % (auto) 15.7 %; Mean Corpuscular Hemoglobin 25.6 pg (25.0-34.0); Mean Corpuscular Hgb Conc 31.2 g/dL (32.0-36.0); Mean Platelet Volume 10.1 fL (9.4-12.4); Monocytes # (auto) 0.47 K/uL (0.11-0.59); Monocytes % (auto) 7.6 %; Neutrophils # (auto) 4.56 K/uL (1.40-6.50); Platelet Count 329 K/uL (130-400); RDW Coefficient of Variation 18.3 % (11.5-14.5); RDW Standard Deviation 53.6 fL (36.4-46.3); Red Blood Count 4.34 M/uL (4.20-5.40); White Blood Count 6.17 K/ul (4.8-10.8)
[2023-01-24 05:10] LABS: BUN Creatinine Ratio 12.5 (10-20); Calcium 9.3 mg/dl (8.6-10.3); Creatinine Clr Calc Pharmacy 30.4 ml/min; Est GFR (African American) 26.1 ml/min; Est GFR (Non-African American) 22.6 ml/min; Magnesium 2.1 mg/dl (1.7-2.4); Potassium 4.3 mmol/L (3.5-5.1)
[2023-01-24] MEDS: AMIODARONE / D5W 360 MG/200 ML BAG IV SCH (05:27)
[2023-01-24 05:37] LABS: Partial Thromboplastin Ratio 1.6
[2023-01-24 05:58] LABS: Partial Thromboplastin Time 45.8 Seconds (21.0-31.0)
[2023-01-24] MEDS ORDERED: 600mg Preop IV SCH (06:00)
[2023-01-24] MEDS ORDERED: 300mg Preop IV SCH (06:00)
[2023-01-24] MEDS: LEVOTHYROXINE SODIUM 137 MCG TABLET PO SCH (06:02)
--- NOTE | 2023-01-24 07:45 | Hospitalist Progress Note ---
Date of Service January 24, 2023 Assessment & Plan (1) Tachy-lina syndrome: (2) Status post placement of cardiac pacemaker: (3) Atrial fibrillation with RVR: (4) Elevated troponin: (5) GERD (gastroesophageal reflux disease): (6) Psoriasis: (7) Chronic kidney disease with active medical management without dialysis, stage 3 (moderate): (8) Chronic anticoagulation: (9) Iron deficiency anemia: (10) Hypothyroidism: Plan 77 year old female w/ PmHx osteoarthritis, HTN, T2DM, CKD, mild persistent asthma,and paroxysmal atrial fibrillation on Eliquis admitted for A fib w/ RVR. Pacemaker was placed yesterday and has been functioning properly. CBC with stable Hb at 11.1, no leukocytosis, and stable platelets. BMP with mild hyponatremia (134) that is new in comparison with past labs, and increased BUN (21 --> 26) and Creatinine (1.93 --> 2.08), which may be in relation to yesterday's procedure and patient's hx of CKD. No other electrolyte abnormalities noted and potassium is 4.3. Mg level at 2.1. CXR showing mild pulmonary vascular congestion w/o evidence of pleural effusion, and pacemaker leads in adequate position. Elevated Troponin On 01/23 after having pacemaker placed, the patient was c/o chest pain and troponins were ordered. Initially,, they were in the 500s, so repeat troponins were ordered for a few hours afterwards, which revealed an increase to 1500s. The next day (01/24) she did not c/o chest pain, but did feel diaphoretic and had some SOB and some numbness in her jaw/neck area. An EKG was done and showed no ischemic changes. Repeat troponin level that same day showed increase to 3400s. This increase may be associated to recent pacemaker, but possibility of this being related to cardiac ischemia cannot be ruled out. Cardiology was notified of this increase in troponin and of her symptoms in that morning. Later on in the day (01/24), she developed sinus tachycardia detected on telemetry and she became unconscious. A code purple was called but by the time the team arrived, the patient had become conscious again. She was noted to be significantly short of breath and diaphoretic. She denied having chest pain and only c/o feeling sweaty. Cardiology arrived and the patient was advised that due to her increasing troponins and her current episode of ventricular tachycardia with syncope, the possibility of myocardial ischemia was much more likely and recommended to perform catheterization. She was given Aspirin and taken for catheterization today. Cardiac catheterization revealed no significant coronary artery obstruction. Nevertheless, she was started on anti-platelet therapy with Aspirin, and Carvedilol dose was increased to 18.75 mg PO BID. Amiodarone was discontinued. Will continue to monitor telemetry and for signs of myocardial ischemia. Will re-check Troponins tomorrow to check trend. Paroxysmal A. fib with rapid ventricular response -Past history of paroxysmal A. fib diagnosed 3 years ago. -ECHO: Moderate to Severe reduced systolic function EF 30-35%, Global hyp okinesis. Mild concentric left ventricular hyperthrophy, Moderate biatrial dilation (LV has decline compared to prior in 2020) -Given diltiazem 20mg IV in the ED with rates coming down thereafter. -Consulted cardiology, will appreciate recommendations. - Amiodarone IV started initially - discontinued on 01/24 after catheterization - Pacemaker was inserted (01/23) -Continue home Eliquis 5mg -Keep K >4, Mg >2. -follow labs am Tachybradycardia syndrome - Past hx with low dose metoprolol - Pacemaker inserted 01/23, will follow cardiology recommendations Global hypokinesis EF 30-35% -Probably due to current paroxysmal A.Fib -Patient denied SOB or chest pain -Cardiology recommendation: -Due to bradycardia, will not be cannot place her on appropriate heart failure medications. History of asthma: -continue home inhaler regimen of budesonide-formoterol BID, Xopenex PRN. Chronic steroid use: -Patient had been on steroids orally previously and had tried to wean down but had issues with 4mg -Continue 5mg daily prednisone while inpatient. HTN: -Continue home spironolactone, nifedipine. osteoarthritis: -Tylenol PRN for pain. T2DM: -A1c 6.7, holding home diabetes medications while inpatient. -If glucoses start to creep up can add on SSI coverage. CKD: -Creatinine 1.81 on admission, baseline 1.6-1.8. -Avoid nephrotoxic agents. -Monitor with daily BMP. Iron deficiency anemia: -Hemoglobin 11.2 on admission, baseline 11-12. -Monitor with daily CBC. Depression/Anxiety: -continue duloxetine. GERD: -continue home nexium F/E/N/GI: Heart Healthy DVT Prophylaxis: Heparin drip Code status: Full code. Dispo: PCU/tele. Admission and Anticipated Discharge Date Admission Date: January 20, 2023 Supervising Physician Co-Signing Physician Notes I personally examined the patient and verified all ellis points of history and exam, discussed case, and agree with decision making with Dr Rolando cooper blue - Had V. tach, briefly unconscious, fortunately quickly restored narrow complex perfusing rhythm and woke right up with no sequelaetaken promptly to the Service Car Operator, see below. vitals noted nad heent nc at mmm breathing unlabored no accessory muscles good effort. EKG afib ~[address] T changes At any point, rhythm strip with ventricular tachycardia. trop noted sick sinus syndrome -now post pacer elevated trop - her troponins were trending up, definitely warranting an ischemic work-up, and then today's episode of ventricular tachycardia led to a stat castwhich was overall surprisingly clean, questionably however 1 sidebranch may have been occludedcontinue to trend her troponins to look for plausibility that it was an ischemic irritability focus leading to the ventricular tachycardia versus long QTfrom which the amiodarone has been discontinued. Continue aspirin and escalate beta-ankit, continue heparin drip, given the possibility of an ischemic irritability focus, also considering high intensity statin. dilated cardiomyopathy otherwise as above Subjective Mike is a 77 year old female w/ PmHx osteoarthritis, HTN, T2DM, CKD, mild persistent asthma, allergic rhinitis, sialoadenitis, paroxysmal atrial fibrillation on eliquis 5mg bid coming in for persistent atrial fibrillation. Patient states that (01/22) night she was getting up to go to the bathroom when she had felt a little short of breath. Her fitbit had told her the heart rate was elevated and irregular. She contacted the cardiology office Thursday (01/23) morning and they performed an EKG which showed A. fib with RVR and she was instructed to go to the ED if it persisted past 24 hours. Her history of atrial fibrillation goes back to December of 2019 when she was having hip surgery and it was spotted on routine monitoring. She states whenever she gets atrial fibrillation it usually lasts for a short period of time such as 30 minutes to a few hours. She is usually able to tell this from her fitbit since the high heart rates are not generally accompanied by symptoms. She denies any recent fevers, chills, diarrhea, constipation, headaches, cough, shortness of breath currently, chest pain, congestion. She was not doing anything physically exerting when the onset happened, she says just walking to the bathroom. Patient evaluated at bedside found AAOx3, in no acute distress. Se denies feeling significantly SOB but she appeared to have some difficulty breathing. She indicates feeling sweaty and warm, and has had episodes where she feels numb under her jaw and in her left neck area. She also indicates having some COMBS when walking to the bathroom but not too significant. Pacemaker was placed yesterday (01/23) and has been functioning well. She is also currently on IV Amiodarone. She denies chest pain, lightheadedness, weakness, fever, chills, nausea, vomiting or any other symptom. Review of Systems Review of Systems: As per HPI. Physical Exam Physical Exam: General: AAOx3, Afebrile, Cooperative, No acute Distress Chest: Symmetric expansions with respirations, Bandage covering pacemaker insertion site was clean/dry/intact Cardio: Irregular rhythm, No murmurs/rubs/gallops Respiratory: CTA bilaterally, no pleurisy Abdominal: soft and depressible, non distended, normal bowel sounds, non-tender Extremities: no swelling, negative Slime's sign bilaterally Integumentary: warm, dry, pink Results & Data Results & Data Vital Signs (Past 12 Hours) Vital Signs Temp Pulse Pulse Resp BP Pulse Ox O2 Del Method 01/24/23 07:32 36.7 C 96 H 18 145/89 H 93 Room Air 01/24/23 04:19 36.9 C 99 H 18 135/91 94 Room Air 01/23/23 22:00 102 H 01/23/23 23:29 36.9 C 100 H 18 143/86 H 97 Room Air Resident Activity Tracking Resident Involvement: Resident Care Provided Care Provided: Adult Hospital Medicine (5) GERD (gastroesophageal reflux disease) Esophagitis presence: esophagitis presence not specified Qualified Code(s): K21.9 - Gastro-esophageal reflux disease without esophagitis
[2023-01-24] MEDS: LACTATED RINGER'S 1,000 ML IV SCH (08:24)
[2023-01-24] MEDS: DULoxetine HCL 60 MG CAP PO SCH (08:25)
[2023-01-24] MEDS: carvediloL 12.5 MG TAB PO SCH (08:25)
[2023-01-24] MEDS: AMIODARONE 200 MG TAB PO SCH (08:25)
[2023-01-24] MEDS: MONTELUKAST SODIUM 10 MG TABLET PO SCH (08:26)
[2023-01-24] MEDS: CALCITRIOL 0.25 MCG CAPSULE PO SCH (08:27)
[2023-01-24] MEDS: POTASSIUM CHLORIDE CRTAB 20 MEQ TABCR PO SCH (08:27)
[2023-01-24] MEDS: FLUTICASONE/VILANTEROL 100/25MCG 14 PUFFS/INHALER INH SCH (08:28)
[2023-01-24] MEDS: NITROGLYCERIN 0.4 MG/HR PATCH TD SCH (08:28)
[2023-01-24] MEDS: PANTOprazole 40 MG TAB PO SCH ×2 (08:28→20:20)
[2023-01-24] MEDS: SPIRONOLACTONE 25 MG TAB PO SCH ×2 (08:29→20:19)
[2023-01-24] MEDS: MAGNESIUM OXIDE 400 MG TAB PO SCH ×2 (08:30→20:19)
--- NOTE | 2023-01-24 08:42 | Cardiology Progress Note ---
Date of Service January 24, 2023 Assessment & Plan (1) Atrial fibrillation with RVR: (2) Status post placement of cardiac pacemaker: Plan 1. Atrial fibrillation: The heart rate is still somewhat fast on carvedilol 12.5 mg twice a day. Since her blood pressure is not low I would probably go up on carvedilol at discharge. She remains in atrial fibrillation on amiodarone IV, I will discontinue the IV amiodarone this morning but I would recommend continuing oral for the time being. Oral anticoagulation can be started today. 2. Postop day #1: The device is working well and leads are in good position. Stable for discharge. Admission and Anticipated Discharge Date Admission Date: January 20, 2023 Subjective Anticoagulation was started postop yesterday. Results & Data Vital Signs (Past 12 Hours) Vital Signs Temp Pulse Pulse Resp BP Pulse Ox O2 Del Method 01/24/23 07:32 36.7 C 96 H 18 145/89 H 93 Room Air 01/24/23 04:19 36.9 C 99 H 18 135/91 94 Room Air 01/23/23 22:00 102 H 01/23/23 23:29 36.9 C 100 H 18 143/86 H 97 Room Air Laboratory Results Cardiac Enzymes 01/23/23 01/24/23 Range/Units 16:56 00:01 Troponin I High Sens 526.9 H* 1562.0 H* D (0-14) pg/ml Coagulation 01/24/23 Range/Units 04:18 APTT 45.8 H* (21.0-31.0) Seconds CBC 01/24/23 Range/Units 04:18 WBC 6.17 (4.8-10.8) K/ul RBC 4.34 (4.20-5.40) M/uL Hgb 11.1 L (12.0-16.0) g/dl Hct 35.6 L (37.0-47.0) % Plt Count 329 (130-400) K/uL Neut # (Auto) 4.56 (1.40-6.50) K/uL Lymph # (Auto) 0.97 L (1.20-3.40) K/uL [place] # (Auto) 0.47 (0.11-0.59) K/uL Eos # (Auto) 0.12 (0.00-0.50) K/uL Baso # (Auto) 0.03 (0.00-0.20) K/uL Comprehensive Metabolic Panel 01/24/23 Range/Units 04:18 Sodium 134 L (136-145) mmol/L Potassium 4.3 (3.5-5.1) mmol/L Chloride 103 (98-107) mmol/L Carbon Dioxide 22 (21-32) mmol/L BUN 26 H (6-23) mg/dl Creatinine 2.08 H (0.6-1.2) mg/dl Glucose 164 H (70-99(Fasting)) mg/dl Calcium 9.3 (8.6-10.3) mg/dl Intake and Output 01/23/23 01/24/23 01/24/23 22:59 06:59 14:59 Intake Total 350 / 1190 600 / 1190 Balance 350 / 1190 600 / 1190 Intake: IV 250 / 450 200 / 450 Amiodarone / D5w 360 mg In 200 200 / 400 200 / 400 ml @ 0.5 MG/MIN 16.667 mls/hr IV .Q12H [facility] Rx#:[id number] Clindamycin/D5w 600 mg In 50 ml 50 / 50 @ 100 mls/hr IV TODAY@0600 [facility] Rx#:[id number] Heparin Sodium/Dextrose 25,000 0 / 0 units In 500 ml @ 1,400 UNITS/ HR 28 mls/hr IV .[id number] [facility] Rx #:[id number] Oral 400 / 640 Tube Irrigant 100 / 100 Other: # Unmeasured Voids 4 Weight 102 kg Weight Measurement Method Built in [facility] Diagnostic Findings Postop ECG: Atrial fibrillation with appropriate pacemaker inhibition. Chest x-ray: Good lead position, no pneumothorax. Pacemaker evaluation: Excellent pacing and sensing characteristics. PG Care Time/CCT Total # of Minutes Spent Total Time Spent with Patient: Total time spent is greater than 50% in coordination of care (as documented) at patient's floor/unit and/or counseling patient: Coding Level of Care Code 29724 Post Operative Follow-Up Diagnoses Atrial fibrillation with RVR I48.91 Status post placement of cardiac pacemaker Z95.0 CPT Codes Dual Lead Pacemaker System - 03405 ([id number])
--- NOTE | 2023-01-24 09:38 | XRay Report ---
XR chest 2V PA/lateral CLINICAL HISTORY: EXACT TIME ORDERED Evaluate for pneumothorax and l TECHNIQUE: 2 views of the chest were obtained. Comparison: Comparison is made to chest radiograph 01/20/2023 FINDINGS: Dual lead pacemaker is seen. Left shoulder arthroplasty is seen. Cardiomegaly is noted. Prominence an d cephalization of the vasculature is seen. No evidence of pleural effusion or pneumothorax. IMPRESSION: 1. Interval placement of dual-lead pacemaker, leads are in satisfactory position. No pneumothorax is seen. 2. Mild pulmonary vascular congestion. ACT 112: Negative or not required by law. Electronically signed by: José Miguel Hernandes M.D. 01/24/2023 9:35 AM
[2023-01-24] MEDS ORDERED: ASPIRIN CHEW 324 MG PO STA (12:58)
[2023-01-24] MEDS ORDERED: ASPIRIN CHEW 324 MG ONE (12:59)
[2023-01-24] MEDS ORDERED: MIDAZOLAM HCL 1 MG/ML 2ML VIAL ONE (13:06)
[2023-01-24] MEDS ORDERED: niCARdipine HCL INJ 2.5 MG/ML 10 ML AMP ONE (13:07)
[2023-01-24] MEDS ORDERED: HEPARIN (PORCINE) 1000 UNIT/ML 10 ML (CATH LAB USE ONLY) ONE (13:07)
[2023-01-24] MEDS ORDERED: fentaNYL citrate PF 100 MCG/2 ML VIAL ONE (13:07)
[2023-01-24] MEDS ORDERED: NITROGLYCERIN/D5W 100MCG/ML 20ML SYR ONE (13:08)
--- NOTE | 2023-01-24 13:20 | Pre Anesthesia Assessment ---
Date of Service January 24, 2023 Pre Sedation Assessment Vital Signs Temp Pulse Pulse Resp BP BP Pulse Ox 01/24/23 09:00 107 H 01/24/23 10:51 36.6 C 92 H 18 124/74 96 01/24/23 07:32 36.7 C 96 H 18 145/89 H 93 01/24/23 04:19 36.9 C 99 H 18 135/91 94 01/23/23 22:00 102 H 01/23/23 23:29 36.9 C 100 H 18 143/86 H 97 01/23/23 19:03 36.8 C 96 H 19 134/84 92 01/23/23 18:16 94 H 01/23/23 15:11 36.7 C 98 H 19 115/78 92 O2 Del Method 01/24/23 09:00 01/24/23 10:51 Room Air 01/24/23 07:32 Room Air 01/24/23 04:19 Room Air 01/23/23 22:00 01/23/23 23:29 Room Air 01/23/23 19:03 Room Air 01/23/23 18:16 01/23/23 15:11 Room Air Cardiovascular + irregularly irregular Respiratory normal respiratory effort, lungs clear to auscultation Pre-Sedation Airway Assessment Smoking Status: Never smoker Short, Thick Neck: No Thyromental Distance: > or= 3.5 Finger Breadths Oral Cavity: + Dental Abnormalities Mallampati Class: III ASA: ASA3 NPO Status Date of Last Intake of Fluids: 01/24/23 Time of Last Intake of Fluids: 13:00 Date of Last Intake of Solid Food: 01/24/23 Time of Last Intake of Solid Foods: 11:30 Procedure Planning Contraindications for Sedation: none Current Medications Reviewed: Yes Notes The planned sedation has been discussed with the patient. Informed Consent was obtained. I have identified the patient, determined the appropriateness of sedation and have assessed the patient immediately prior to the procedure. All medicine(s) and interventions are by my order.
--- NOTE | 2023-01-24 14:07 | Cardiac Catheterization ---
ACC Data: Dental Laboratory Assistant Cardiac Status Clinical evaluation leading to the procedure CAD Presenation: Non STEMI Diagnostic Physicians Name: Pawel Solano MD Closure Device Recommendations: Management Recommendatons Cardiac Cath Procedure Full Procedure Date January 24, 2023 Pre-Procedure Diagnosis Pre-Procedure Diagnosis: Non STEMI AUC Score AUC Score: 9 Post-Procedure Diagnosis Post-Procedure Diagnosis: Mild CAD Procedure(s) Performed Procedure(s) Performed: Coronary Angiography and Left Heart Cath Quilt Maker Pawel Solano MD Estimated Blood Loss Estimated Blood Loss: None Summary of Findings Patient was brought to the catheterization laboratory in the right wrist was prepped and draped in usual manner the skin and subcutaneous tissue were anesthetized with 1% lidocaine. Using a percutaneous technique a 6 [place] was placed in the right radial artery. Patient received 5000 units of heparin systemically and 200 mcg of nitroglycerin. Selective coronary angiography was performed with a 6 [place] catheter. The [place] catheter was also utilized to obtain left ventricular end-diastolic pressure. At the end of the procedure the catheter and sheath was removed and a occlusive band applied Findings left heart study documented a left-ventricular end-diastolic pressure of 16 mmHg. There was no gradient on pullback across the aortic valve. Coronary angiography the right coronary artery was nondominant and free of disease. The left main was normal bifurcating into type III LAD and circumflex system. The LAD and circumflex had luminal irregularities only there was no evidence of obstructive coronary artery disease. Hemodynamics Rest Ao:: 140/80 Final Ao: 140/80 LV: Ventriculography was not performed due to an elevated creatinine left ventricular end-diastolic pressure was 16 mmHg. Recommendations Recommendations: Management Recommendatons Specimens Specimens: None Radiation Exposure (mGy) 643 Contrast (mls) 454 Anesthesia 1 of Versed 25 of fentanyl Procedural Complication(s) None Disposition PCU I attest to the content of the Intraoperative Record and any orders documented therein. Any exceptions are noted below. PG Care Time/CCT Total # of Minutes Spent Total Time Spent with Patient: Total time spent is greater than 50% in coordination of care (as documented) at patient's floor/unit and/or counseling patient:
--- NOTE | 2023-01-24 14:12 | Electrocardiogram Report ---
Test Reason : Blood Pressure : / mmHG Vent. Rate : 129 BPM Atrial Rate : 000 BPM P-R Int : 000 ms QRS Dur : 094 ms QT Int : 332 ms P-R-T Axes : 000 -17 139 degrees QTc Int : 486 ms Atrial fibrillation with rapid ventricular response Moderate voltage criteria for LVH, may be normal variant Nonspecific ST and T wave abnormality Abnormal ECG When compared with ECG of 30-SEP-2022 10:24, Atrial fibrillation has replaced Sinus rhythm Vent. rate has increased BY 49 BPM Nonspecific T wave abnormality, worse in Lateral leads Confirmed by Jarocho Herrera ([id number]) on 01/24/2023 2:12:29 PM Referred By: REFERRED SELF Confirmed By:Jarocho Herrera
--- NOTE | 2023-01-24 14:13 | Electrocardiogram Report ---
Test Reason : Blood Pressure : / mmHG Vent. Rate : 111 BPM Atrial Rate : 000 BPM P-R Int : 000 ms QRS Dur : 090 ms QT Int : 368 ms P-R-T Axes : 000 -17 140 degrees QTc Int : 501 ms Atrial fibrillation with rapid ventricular response Moderate voltage criteria for LVH, may be normal variant Nonspecific T wave abnormality Prolonged QT Abnormal ECG When compared with ECG of 20-JAN-2023 19:36, No significant change was found Confirmed by Jarocho Herrera ([id number]) on 01/24/2023 2:13:20 PM Referred By: REFERRED SELF Confirmed By:Jarocho Herrera
--- NOTE | 2023-01-24 14:14 | Electrocardiogram Report ---
Test Reason : Blood Pressure : / mmHG Vent. Rate : 090 BPM Atrial Rate : 096 BPM P-R Int : 208 ms QRS Dur : 088 ms QT Int : 376 ms P-R-T Axes : 088 -09 076 degrees QTc Int : 461 ms Sinus rhythm Premature atrial complexes Nonspecific T wave abnormality Abnormal ECG When compared with ECG of 20-JAN-2023 19:47, Sinus rhythm has replaced Atrial fibrillation Confirmed by Jarocho Herrera ([id number]) on 01/24/2023 2:14:32 PM Referred By: REFERRED SELF Confirmed By:Jarocho Herrera
--- NOTE | 2023-01-24 14:15 | Electrocardiogram Report ---
Test Reason : Blood Pressure : / mmHG Vent. Rate : 083 BPM Atrial Rate : 083 BPM P-R Int : 180 ms QRS Dur : 090 ms QT Int : 408 ms P-R-T Axes : 066 -17 074 degrees QTc Int : 480 ms Sinus rhythm with Premature atrial complexes Minimal voltage criteria for LVH, may be normal variant Prolonged QT When compared with ECG of 21-JAN-2023 00:38, Premature atrial complexes are now Present Nonspecific T wave abnormality, improved in Lateral leads Confirmed by Jarocho Herrera ([id number]) on 01/24/2023 2:15:20 PM Referred By: REFERRED SELF Confirmed By:Jarocho Herrera
--- NOTE | 2023-01-24 14:16 | Electrocardiogram Report ---
Test Reason : Blood Pressure : / mmHG Vent. Rate : 105 BPM Atrial Rate : 312 BPM P-R Int : 000 ms QRS Dur : 092 ms QT Int : 408 ms P-R-T Axes : 000 -16 052 degrees QTc Int : 540 ms Atrial fibrillation with rapid ventricular response Moderate voltage criteria for LVH, may be normal variant Nonspecific T wave abnormality Prolonged QT Abnormal ECG When compared with ECG of 21-JAN-2023 06:18, Atrial fibrillation has replaced Sinus rhythm Nonspecific T wave abnormality, worse in Lateral leads Confirmed by Jarocho Herrera ([id number]) on 01/24/2023 2:16:23 PM Referred By: REFERRED SELF Confirmed By:Jarocho Herrera
--- NOTE | 2023-01-24 14:18 | Electrocardiogram Report ---
Test Reason : Blood Pressure : / mmHG Vent. Rate : 101 BPM Atrial Rate : 267 BPM P-R Int : 000 ms QRS Dur : 100 ms QT Int : 384 ms P-R-T Axes : 068 198 134 degrees QTc Int : 498 ms Atrial fibrillation /flutter with rapid ventricular response Limb lead reversal Nonspecific T wave abnormality Prolonged QT Abnormal ECG When compared with ECG of 22-JAN-2023 06:42, Limb lead reversal is now present Confirmed by Jarocho Herrera ([id number]) on 01/24/2023 2:18:05 PM Referred By: REFERRED SELF Confirmed By:Jarocho Herrera
--- NOTE | 2023-01-24 14:20 | Electrocardiogram Report ---
Test Reason : Blood Pressure : / mmHG Vent. Rate : 093 BPM Atrial Rate : 119 BPM P-R Int : 234 ms QRS Dur : 096 ms QT Int : 432 ms P-R-T Axes : 000 -14 070 degrees QTc Int : 538 ms Atrial-paced rhythm with prolonged AV conduction Minimal voltage criteria for LVH, may be normal variant Nonspecific T wave abnormality Prolonged QT Abnormal ECG When compared with ECG of 23-JAN-2023 16:07, Electronic atrial pacemaker has replaced Atrial flutter Limb lead reversal is no longer present Nonspecific T wave abnormality no longer evident in Inferior leads Confirmed by Jarocho Herrera ([id number]) on 01/24/2023 2:19:48 PM Referred By: REFERRED SELF Confirmed By:Jarocho Herrera
--- NOTE | 2023-01-24 14:21 | Electrocardiogram Report ---
Test Reason : Blood Pressure : / mmHG Vent. Rate : 087 BPM Atrial Rate : 105 BPM P-R Int : 000 ms QRS Dur : 090 ms QT Int : 420 ms P-R-T Axes : 000 007 052 degrees QTc Int : 506 ms Atrial fibrillation with occasional ventricular-paced complexes Nonspecific T wave abnormality Prolonged QT Abnormal ECG When compared with ECG of 24-JAN-2023 08:53, Atrial fibrillation has replaced Electronic atrial pacemaker Confirmed by Jarocho Herrera ([id number]) on 01/24/2023 2:20:58 PM Referred By: REFERRED SELF Confirmed By:Jarocho Herrera
--- NOTE | 2023-01-24 14:30 | Cardiac Catheterization ---
ACC Data: Operations Specialist Cardiac Status Clinical evaluation leading to the procedure CAD Presenation: Non STEMI Diagnostic Physicians Name: Pawel Solano MD Closure Device Recommendations: Management Recommendatons Cardiac Cath Procedure Full Procedure Date January 24, 2023 Pre-Procedure Diagnosis Pre-Procedure Diagnosis: Non STEMI AUC Score AUC Score: 9 Post-Procedure Diagnosis Post-Procedure Diagnosis: Mild CAD Procedure(s) Performed Procedure(s) Performed: Coronary Angiography and Left Heart Cath Log Rider Pawel Solano MD Estimated Blood Loss Estimated Blood Loss: None Summary of Findings Patient was brought to the catheterization laboratory in the right wrist was prepped and draped in usual manner the skin and subcutaneous tissue were anesthetized with 1% lidocaine. Using a percutaneous technique a 6 Burmese was placed in the right radial artery. Patient received 5000 units of heparin systemically and 200 mcg of nitroglycerin. Selective coronary angiography was performed with a 6 Burmese [place] catheter. The [place] catheter was also utilized to obtain left ventricular end-diastolic pressure. At the end of the procedure the catheter and sheath was removed and a occlusive band applied Findings left heart study documented a left-ventricular end-diastolic pressure of 16 mmHg. There was no gradient on pullback across the aortic valve. Coronary angiography the right coronary artery was nondominant and free of disease. The left main was normal bifurcating into type III LAD and circumflex system. The LAD and circumflex had luminal irregularities only there was no evidence of obstructive coronary artery disease. Hemodynamics Rest Ao:: 115/84 Final Ao: 125/95 LV: 126/16 Recommendations Recommendations: Management Recommendatons Specimens Specimens: None Radiation Exposure (mGy) 643 Contrast (mls) 45 Anesthesia 1 of Versed 25 of fentanyl Procedural Complication(s) None Disposition PCU I attest to the content of the Intraoperative Record and any orders documented therein. Any exceptions are noted below. PG Care Time/CCT Total # of Minutes Spent Total Time Spent with Patient: Total time spent is greater than 50% in coordination of care (as documented) at patient's floor/unit and/or counseling patient:
[2023-01-24] MEDS: HEPARIN SODIUM/DEXTROSE 25,000 UNITS/500 ML BAG IV SCH (14:49)
--- NOTE | 2023-01-24 14:49 | Cardiology Progress Note ---
Date of Service January 24, 2023 Assessment & Plan (1) Ventricular tachycardia: (2) Non-ST elevation (NSTEMI) myocardial infarction: (3) Tachy-lina syndrome: (4) Atrial fibrillation with RVR: (5) Cardiomyopathy: (6) Status post placement of cardiac pacemaker: (7) Hypertension: (8) Hyperlipidemia associated with type 2 diabetes mellitus: Plan ASSESSMENT/PLAN: 1. Ventricular tachycardia: Had syncope with ventricular tachycardia which spontaneously converted to atrial fibrillation. Given elevated troponin, trending upward, with episode of jaw numbness and diaphoresis overnight, concern for ischemic heart disease. Code heart alert activated. Discussed with on-call necktie maker. Images reviewed. Etiology of ventricular tachycardia may still be ischemic in origin given elevated troponin, and thus myocardial injury. Continue beta-ankit and can increase. QT has increased on amiodarone, which is not unexpected. Avoid medications which can further prolong QT. For now, we will discontinue amiodarone. Continue to monitor. 2. NSTEMI: Cannot exclude small branch vessel occlusion. Troponin elevated more so than what it is expected following pacemaker implantation. No clear angina but diaphoretic episode with jaw numbness. Aspirin 81 mg daily. She received full dose aspirin after V. tach event. Continue beta-ankit. Statin therapy. Cardiac catheterization recommended and completed as noted. 3. Cardiomyopathy: Not likely tachycardia induced given that she monitors her heart rate with her smart phone. Nonischemic. Carvedilol has been initiated following pacemaker placement on 01/23/2023. Had dye load today and otherwise would recommend initiation of ESTELA inhibitor/ARNI if renal function remains stable. She appears euvolemic and LVEDP only mildly elevated. Consideration for ICD for primary prevention if LV systolic function remains significantly reduced following optimize therapy. Could make consideration for ICD for secondary prevention however today's episode has occurred within 48 hours of upward trending troponin/NV. Continue to monitor. 4. Atrial fibrillation/flutter: Paroxysmal. Even before amiodarone, was having episodes of sinus, albeit brief. Asymptomatic. Can discontinue amiodarone and titrate beta-ankit for rate control strategy, if effective. Continue anticoagulation for stroke risk reduction. 5. Tachybradycardia syndrome: Underwent pacemaker placement on 01/23/2023. 6. Pacemaker: Continue to follow with EP. 7. Hypertension: Blood pressure has been mostly normotensive, and on occasion mildly elevated. Titrating cardiac medications as noted. 8. Disposition: Cardiology will continue to follow. Patient care discussed with Dr. Ca of the primary hospitalist service, as well as interventional cardiology. Also discussed with electrophysiology, Dr. Mitchell. 60 minutes of critical care time spent, including managing patient after her VT event, cardiac catheterization, coordinating care. Admission and Anticipated Discharge Date Admission Date: January 20, 2023 Subjective Patient was seen on 2 separate occasions so far today. She was seen earlier this morning and described an episode of diaphoresis overnight with numbness in her chin/neck area. She states that this has been occurring chronically. She states that it occurs even at rest. She then mentioned possible chest pain at times but later clarified that she has belching episodes. She admits that she has dyspnea on exertion chronically when walking further distances but denies exertional chest pain. She has had pain at her left upper chest pacemaker insertion site after undergoing pacemaker placement yesterday. She denies shortness of breath, orthopnea, syncope, near syncope, palpitations, or edema. Short time later, a CODE BLUE then code purple was called for her room. I immediately presented to the bedside. She developed ventricular tachycardia for approximately 20-30 seconds and was unresponsive. Nursing staff rushed to the bedside after noting it on monitor. She then spontaneously converted to atrial fibrillation and appeared short of breath but denied chest pain. ECG done immediately demonstrated no significant ST changes. Incidentally, her high-sensitivity troponin was checked overnight and then again this morning and was noted to be increasing with most recent value of 3424. Physical Exam Physical Exam: Gen.: No acute distress. Alert. HEENT: Anicteric sclera. Neck: No JVD. Cardiac: No ventricular heave. Irregularly irregular. Normal S1-S2. No murmurs, rubs, or gallops. Pulmonary: Clear to auscultation bilaterally without wheezes, rales, or rhonchi. Abdomen: Soft, nontender, nondistended, with normoactive bowel sounds. No bruits noted. Extremities: 2+ radial pulses bilaterally. 2+ posterior tibialis pulses bilaterally. Trace bilateral lower extremity edema. Psychiatric: Affect appears appropriate. Results & Data Vital Signs (Past 12 Hours) Vital Signs Temp Pulse Pulse Resp BP Pulse Ox O2 Del Method 01/24/23 14:14 36.5 C 94 H 18 123/71 98 Room Air 09/02/23 09:00 107 H 01/24/23 10:51 36.6 C 92 H 18 124/74 96 Room Air 01/24/23 07:32 36.7 C 96 H 18 145/89 H 93 Room Air 01/24/23 04:19 36.9 C 99 H 18 135/91 94 Room Air Intake & Output 01/22/23 01/23/23 01/24/23 01/25/23 06:59 06:59 06:59 06:59 Intake Total 1552.895 / 6874.895 7148.121 / 1187.188 2747 / 1190 71.38 / 71.38 Output Total Balance 1551.895 / 5081.531 6683.121 / 4237.276 2824 / 1190 71.38 / 71.38 Weight 230 lb 2.601 oz 227 lb 4.745 oz 224 lb 13.944 oz Laboratory Results Laboratory Results - last 24 hr 01/23/23 01/24/23 01/24/23 16:56 00:01 04:18 WBC 6.17 RBC 4.34 Hgb 11.1 L Hct 35.6 L MCV 82.0 MCH 25.6 MCHC 31.2 L RDW Std Deviation 53.6 H RDW Coeff of Amrita 18.3 H Plt Count 329 MPV 10.1 Immature Gran % (Auto) 0.3 Neut % (Auto) 74.0 Lymph % (Auto) 15.7 [place] % (Auto) 7.6 Eos % (Auto) 1.9 Baso % (Auto) 0.5 Neut # (Auto) 4.56 Lymph # (Auto) 0.97 L [place] # (Auto) 0.47 Eos # (Auto) 0.12 Baso # (Auto) 0.03 Immature Gran # (Auto) 0.02 APTT PTT Ratio Sodium Potassium Chloride Carbon Dioxide Anion Gap BUN Creatinine Est Cr Clr Drug Dosing Est GFR ( Amer) Est GFR (Non-Af Amer) BUN/Creatinine Ratio Glucose POC Glucose Calcium Magnesium Troponin I High Sens 526.9 H* 1562.0 H* D 01/24/23 01/24/23 01/24/23 04:18 04:18 09:51 WBC RBC Hgb Hct MCV MCH MCHC RDW Std Deviation RDW Coeff of Amrita Plt Count MPV Immature Gran % (Auto) Neut % (Auto) Lymph % (Auto) [place] % (Auto) Eos % (Auto) Baso % (Auto) Neut # (Auto) Lymph # (Auto) [place] # (Auto) Eos # (Auto) Baso # (Auto) Immature Gran # (Auto) APTT 45.8 H* PTT Ratio 1.6 Sodium 134 L Potassium 4.3 Chloride 103 Carbon Dioxide 22 Anion Gap 9 BUN 26 H Creatinine 2.08 H Est Cr Clr Drug Dosing 30.4 Est GFR ( Amer) 26.1 Est GFR (Non-Af Amer) 22.6 BUN/Creatinine Ratio 12.5 Glucose 164 H POC Glucose Calcium 9.3 Magnesium 2.1 Troponin I High Sens 3424.9 H* D 01/24/23 12:44 WBC RBC Hgb Hct MCV MCH MCHC RDW Std Deviation RDW Coeff of Amrita Plt Count MPV Immature Gran % (Auto) Neut % (Auto) Lymph % (Auto) [place] % (Auto) Eos % (Auto) Baso % (Auto) Neut # (Auto) Lymph # (Auto) [place] # (Auto) Eos # (Auto) Baso # (Auto) Immature Gran # (Auto) APTT PTT Ratio Sodium Potassium Chloride Carbon Dioxide Anion Gap BUN Creatinine Est Cr Clr Drug Dosing Est GFR ( Amer) Est GFR (Non-Af Amer) BUN/Creatinine Ratio Glucose POC Glucose 158 H Calcium Magnesium Troponin I High Sens Diagnostic Findings Labs notable for high-sensitivity troponin elevated and trending upward, mild anemia, abnormal but stable renal function, normal potassium, normal magnesium, mildly elevated glucose. Telemetry personally reviewed: Atrial fibrillation predominantly but episodes of atrial pacing. Episodes not in A-fib have been increasing in duration. Ventricular tachycardia episode also noted. ECGs personally reviewed: ECG 01/24/2023 at 8:53 AM: Atrial paced with PACs. Prolonged QT. QTc 538 ms. Nonspecific T wave abnormality. Cardiac cath 01/24/2023: Performed by necktie maker Dr. Solano. Images personally reviewed: No definite obstructive CAD. Near bifurcation of left main into LAD and circumflex, possible high diagonal/ramus proximal occlusion. Discussed with interventional cardiology. Proximal LAD nonobstructive CAD. Reported LVEDP 16. Chest x-ray 01/24/2023: No pneumothorax per radiology. Medications Administered Current Inpatient Medications Acetaminophen (Acetaminophen 325 Mg Tab) 650 mg PO Q4H PRN PRN Reason: Pain or Fever Stop: 02/20/23 01:05 Last Admin: 01/23/23 16:20 Dose: 650 mg Albuterol (Albuterol Hfa 8 Gm Inhaler) 2 puffs INH Q6H PRN PRN Reason: shortness of breath or wheezin Stop: 02/20/23 01:05 Aspirin (Aspirin 81 Mg Ectab) 81 mg PO QAM [facility] Stop: 02/24/23 08:59 Calcitriol (Calcitriol 0.25 Mcg Capsule) 0.5 mcg PO DAILY [facility] Stop: 02/20/23 08:59 Last Admin: 01/24/23 08:27 Dose: 0.5 mcg Carvedilol (Carvedilol 6.25 Mg Tab) 18.75 mg PO BIDM [facility] Stop: 02/23/23 16:59 Duloxetine HCl (Duloxetine Hcl 60 Mg Cap) 60 mg PO QAM [facility] Stop: 02/20/23 08:59 Last Admin: 01/24/23 08:25 Dose: 60 mg Fluticasone/Vilanterol (Fluticasone/Vilanterol 100/25mcg 14 Puffs/Inhaler) 1 puffs INH DAILY [facility] Stop: 02/22/23 08:59 Last Admin: 01/24/23 08:28 Dose: 1 puffs Lactated Ringer's (Lr) 1,000 mls @ 15 mls/hr IV .Q24H [facility] Stop: 01/26/23 00:39 Last Admin: 01/24/23 08:24 Dose: Not Given Heparin Sodium/Dextrose (Heparin Sodium/Dextrose) 25,000 units in 500 mls @ 30 mls/hr IV .[id number] [facility]; Protocol Stop: 02/22/23 18:44 Last Admin: 01/24/23 14:49 Dose: 1,500 units/hr, 30 mls/hr Levalbuterol HCl (Levalbuterol Hcl 0.63 Mg/3 Ml Neb) 0.63 mg INH Q4H PRN; Protocol PRN Reason: Cough Stop: 02/20/23 01:05 Levothyroxine Sodium (Levothyroxine Sodium 137 Mcg Tablet) 137 mcg PO DAILYBB [facility] Stop: 02/20/23 06:29 Last Admin: 01/24/23 06:02 Dose: 137 mcg Magnesium Oxide (Magnesium Oxide 400 Mg Tab) 400 mg PO BID [facility] Stop: 02/20/23 08:59 Last Admin: 01/24/23 08:30 Dose: 400 mg Miscellaneous (Remove Nitro-Dur Patch) 1 each N/A DAILY@2100 [facility] Stop: 02/20/23 20:59 Last Admin: 01/23/23 20:59 Dose: 1 each Montelukast Sodium (Montelukast Sodium 10 Mg Tablet) 10 mg PO DAILY [facility] Stop: 02/20/23 08:59 Last Admin: 01/24/23 08:26 Dose: 10 mg Nifedipine (Nifedipine Extended Rel 30 Mg Tabcr) 90 mg PO [facility] Stop: 02/20/23 20:59 Last Admin: 01/23/23 20:57 Dose: 90 mg Nitroglycerin (Nitroglycerin 0.4 Mg/Hr Patch) [facility] Stop: 02/20/23 08:59 Last Admin: 01/24/23 08:28 Dose: 1 patch Ondansetron HCl (Ondansetron Inj 2 Mg/Ml 2 Ml Vial) 4 mg IV Q6H PRN PRN Reason: Nausea Stop: 02/20/23 01:05 Last Admin: 01/24/23 14:18 Dose: 4 mg Pantoprazole Sodium (Pantoprazole 40 Mg Tab) 40 mg PO BID [facility] Stop: 02/22/23 20:59 Last Admin: 01/24/23 08:28 Dose: 40 mg Polyethylene Glycol (Polyethylene (Miralax) 17 Gm Pack) 17 gm PO DAILY PRN PRN Reason: Constipation Stop: 02/20/23 01:05 Potassium Chloride (Potassium Chloride Crtab 20 Meq Tabcr) 20 meq PO QAM [facility] Stop: 02/20/23 08:59 Last Admin: 01/24/23 08:27 Dose: 20 meq Prednisone (Prednisone 5 Mg Tab) 5 mg PO [facility] Stop: 02/20/23 01:05 Last Admin: 01/23/23 20:58 Dose: 5 mg Spironolactone (Spironolactone 25 Mg Tab) 25 mg PO BID [facility] Stop: 02/20/23 08:59 Last Admin: 01/24/23 08:29 Dose: 25 mg PG Care Time/CCT Total # of Minutes Spent Total Time Spent with Patient: Total time spent is greater than 50% in coordination of care (as documented) at patient's floor/unit and/or counseling patient: Critical Care Time: Yes Total Critical Care Time: 60 Coding Level of Care Code 51883 CRITICAL CARE 1ST 30-74M Diagnoses Ventricular tachycardia I47.20 Non-ST elevation (NSTEMI) myocardial infarction I21.4 Tachy-lina syndrome I49.5 Atrial fibrillation with RVR I48.91 Cardiomyopathy I42.9 Status post placement of cardiac pacemaker Z95.0 Hypertension I10 Hyperlipidemia associated with type 2 diabetes mellitus E11.69; E78.5 Additional Codes Critical Care Time - Critical Care Time: Yes ([id number])
[2023-01-24] MEDS ORDERED: LORazepam 0.5 MG TAB PO ONE (15:03)
[2023-01-24 16:11] LABS: Anion Gap 9 (3-11); BUN Creatinine Ratio 11.7 (10-20); Blood Urea Nitrogen 25 mg/dl (6-23); Calcium 8.8 mg/dl (8.6-10.3); Carbon Dioxide 22 mmol/L (21-32); Chloride 104 mmol/L (98-107); Creatinine Clr Calc Pharmacy 29.4 ml/min; Est GFR (African American) 25.3 ml/min; Est GFR (Non-African American) 21.8 ml/min; Glucose 162 mg/dl (70-99(Fasting)); Sodium 135 mmol/L (136-145)
[2023-01-24 16:18] LABS: Troponin I High Sensitivity 3462.3 pg/ml (0-14)
[2023-01-24] MEDS: carvediloL 6.25 MG TAB PO SCH (17:10)
--- NOTE | 2023-01-24 18:47 | Billing Data ---
Date of Service January 24, 2023 Coding Level of Care Code 09312 SUB INP/OBS CARE
[2023-01-24] MEDS: predniSONE 5 MG TAB PO SCH (20:19)
[2023-01-24] MEDS: ATORVASTATIN 40 MG TAB PO SCH (20:20)
[2023-01-24] MEDS: NIFEdipine EXTENDED REL 30 MG TABCR PO SCH (20:20)
[2023-01-24] MEDS: ACETAMINOPHEN 325 MG TAB PO PRN (22:52)
[2023-01-25] MEDS ORDERED: METOPROLOL TARTRATE 1 MG/ML VIAL IV STA (00:19)
[2023-01-25] MEDS ORDERED: METOPROLOL TARTRATE 1 MG/ML VIAL IV ONE (00:29)
[2023-01-25] MEDS ORDERED: MoRPHine SULFATE 2 MG/ML CARP IV STA ×2 (01:35→03:35)
[2023-01-25] MEDS ORDERED: LIDOCAINE 5% 1 PATCH TD STA (04:30)
[2023-01-25] MEDS ORDERED: CETIRIZINE HCL 10 MG TABLET PO ONE (04:30)
[2023-01-25] MEDS: HEPARIN SODIUM/DEXTROSE 25,000 UNITS/500 ML BAG IV SCH ×2 (05:10→20:18)
[2023-01-25 05:55] LABS: Basophils # (auto) 0.02 K/uL (0.00-0.20); Basophils % (auto) 0.2 %; Eosinophils # (auto) 0.07 K/uL (0.00-0.50); Eosinophils % (auto) 0.8 %; Hematocrit (blood only) 32.3 % (37.0-47.0); Immature Granulocytes # (auto) 0.02 K/uL (0.01-0.20); Immature Granulocytes % (auto) 0.2 %; Lymphocytes # (auto) 0.95 K/uL (1.20-3.40); Lymphocytes % (auto) 10.4 %; Mean Corpuscular Hemoglobin 25.4 pg (25.0-34.0); Mean Platelet Volume 10.3 fL (9.4-12.4); Monocytes # (auto) 0.84 K/uL (0.11-0.59); Monocytes % (auto) 9.2 %; Neutrophils # (auto) 7.24 K/uL (1.40-6.50); Neutrophils % (auto) 79.2 %; Platelet Count 288 K/uL (130-400); RDW Coefficient of Variation 18.1 % (11.5-14.5); RDW Standard Deviation 54.7 fL (36.4-46.3); Red Blood Count 3.94 M/uL (4.20-5.40); White Blood Count 9.14 K/ul (4.8-10.8)
[2023-01-25 06:01] LABS: BUN Creatinine Ratio 10.8 (10-20); Calcium 8.9 mg/dl (8.6-10.3); Est GFR (African American) 26.9 ml/min; Est GFR (Non-African American) 23.2 ml/min; Magnesium 1.9 mg/dl (1.7-2.4); Potassium 4.4 mmol/L (3.5-5.1)
[2023-01-25] MEDS: LEVOTHYROXINE SODIUM 137 MCG TABLET PO SCH (06:26)
[2023-01-25 06:27] LABS: Troponin I High Sensitivity 1798.9 pg/ml (0-14)
[2023-01-25] MEDS: LACTATED RINGER'S 1,000 ML IV SCH (06:27)
[2023-01-25 06:33] LABS: Partial Thromboplastin Ratio 2.2
[2023-01-25 06:51] LABS: Partial Thromboplastin Time 60.9 Seconds (21.0-31.0)
--- NOTE | 2023-01-25 07:14 | Hospitalist Progress Note ---
Date of Service January 25, 2023 Assessment & Plan (1) Tachy-lina syndrome: (2) Status post placement of cardiac pacemaker: (3) Atrial fibrillation with RVR: (4) Elevated troponin: (5) GERD (gastroesophageal reflux disease): (6) Psoriasis: (7) Chronic kidney disease with active medical management without dialysis, stage 3 (moderate): (8) Chronic anticoagulation: (9) Iron deficiency anemia: (10) Hypothyroidism: (11) Cardiomyopathy: (12) Non-ST elevation (NSTEMI) myocardial infarction: Plan 77 year old female w/ PMHx osteoarthritis, HTN, T2DM, CKD, mild persistent asthma,and paroxysmal atrial fibrillation on Eliquis admitted for A fib w/ RVR. Pacemaker was placed 01/23 and has been functioning properly. CBC with stable Hb at 10.0, increased WBC count without leukocytosis, and decreased platelets. BMP without significant electrolyte abnormalities. Renal markers improved when compared with past labs with creatinine still slightly elevated at 2.03 (decreased from 2.14 yesterday). Magnesium within reference range. CXR showing evidence of congestive heart failure and mild pulmonary edema, as well as small pleural effusions. Will order Ethacrynic acid 50mg PO as management due to sulfa allergy (contraindicates Lasix use). Pulmonary Edema - CXR showing mild pulmonary edema and small pleural effusions. - Order Ethacrynic acid 40mg PO due to sulfa allergy (contraindicates Lasix use) as management - Will continue to monitor Elevated Troponin On 01/23 after having pacemaker placed, the patient was c/o chest pain and troponins were ordered. Initially,, they were in the 500s, so repeat troponins were ordered for a few hours afterwards, which revealed an increase to 1500s. The next day (01/24) she did not c/o chest pain, but did feel diaphoretic and had some SOB and some numbness in her jaw/neck area. An EKG was done and showed no ischemic changes. Repeat troponin level that same day showed increase to 3400s. This increase may be associated to recent pacemaker, but possibility of this being related to cardiac ischemia cannot be ruled out. Cardiology was notified of this increase in troponin and of her symptoms in that morning. Later on in the day (01/24), she developed sinus tachycardia detected on telemetry and she became unconscious. A code purple was called but by the time the team arrived, the patient had become conscious again. She was noted to be significantly short of breath and diaphoretic. She denied having chest pain and only c/o feeling sweaty. Cardiology arrived and the patient was advised that due to her increasing troponins and her current episode of ventricular tachycardia with syncope, the possibility of myocardial ischemia was much more likely and recommended to perform catheterization. She was given Aspirin and taken for catheterization today. Cardiac catheterization revealed no significant coronary artery obstruction. Nevertheless, she was started on anti-platelet therapy with Aspirin, and Carvedilol dose was increased to 18.75 mg PO BID. Amiodarone was d iscontinued. Will continue to monitor telemetry and for signs of myocardial ischemia. Will re-check Troponins tomorrow to check trend. (01/25) Troponins following a decreasing trend (currently 1552.5). Telemetry showing A-fib. Her chest pain may be associated with musculoskeletal cause or pre-existing GI symptoms. Ordered Tylenol for pain control, and should this fail, will attempt Voltaren gel. Will continue to monitor. Paroxysmal A. fib with rapid ventricular response -Past history of paroxysmal A. fib diagnosed 3 years ago. -ECHO: Moderate to Severe reduced systolic function EF 30-35%, Global hypokinesis. Mild concentric left ventricular hyperthrophy, Moderate biatrial dilation (LV has decline compared to prior in 2020) -Given diltiazem 20mg IV in the ED with rates coming down thereafter. -Consulted cardiology, will appreciate recommendations. - Amiodarone IV started initially - discontinued on 01/24 after catheterization - Pacemaker was inserted (01/23) -Continue home Eliquis 5mg -Keep K >4, Mg >2. -follow labs am Tachybradycardia syndrome - Past hx with low dose metoprolol - Pacemaker inserted 01/23, will follow cardiology recommendations Global hypokinesis EF 30-35% -Probably due to current paroxysmal A.Fib -Patient denied SOB or chest pain -Cardiology recommendation: -Due to bradycardia, will not be cannot place her on appropriate heart failure medications. History of asthma: -continue home inhaler regimen of budesonide-formoterol BID, Xopenex PRN. Chronic steroid use: -Patient had been on steroids orally previously and had tried to wean down but had issues with 4mg -Continue 5mg daily prednisone while inpatient. HTN: -Continue home spironolactone, nifedipine. osteoarthritis: -Tylenol PRN for pain. T2DM: -A1c 6.7, holding home diabetes medications while inpatient. -If glucoses start to creep up can add on SSI coverage. CKD: -Creatinine 1.81 on admission, baseline 1.6-1.8. -Avoid nephrotoxic agents. -Monitor with daily BMP. Iron deficiency anemia: -Hemoglobin 11.2 on admission, baseline 11-12. -Monitor with daily CBC. Depression/Anxiety: -continue duloxetine. GERD: -continue home nexium F/E/N/GI: Heart Healthy DVT Prophylaxis: Heparin drip Code status: Full code. Dispo: PCU/tele. Admission and Anticipated Discharge Date Admission Date: January 20, 2023 Supervising Physician Co-Signing Physician Notes I personally examined the patient and verified all ellis points of history and exam, discussed case, and agree with decision making with Dr Marshall chest pain - sternal, sharp/stabbling, hurts to breathe. hurts around to back as well. lidocaine patch on since overnight no real benefit. does not think (on multiple lines of questioning) that she is short of breath- just that it hurts to take a deep breath. vitals noted appearing uncomfortable heent nc at mmm breathing unlabored no accessory muscles good effort and no rales/rhonchi/wheezes. msk/ost - L>R but b/l ribs - both at costochondral and at thoracic articulations - high tone/very tender/decreased ROM - direct myofascial and balanced ligamentous tension - some improvement in tissue although no real improvement in pain sick sinus syndrome -now post pacer elevated trop - her troponins were trending up, definitely warranting an ischemic work-up, and then 9/2 episode of ventricular tachycardia led to a stat cathwhich was overall surprisingly clean, questionably however 1 sidebranch may have been occludedwhich could then have led to ischemic irritability focus leading to the ventricular tachycardia versus long QTfrom which the amiodarone has been discontinued. Continue aspirin and escalate beta-ankit, continue heparin drip, statin. appreciate cardiology oversight chest pain/rib somatic dysfunction - clearly reproducible, tracks along ribs. OMT/voltaren gel, can't use systemic NSAIDs due to CKD; tylenol/valium (as muscle relaxant). ddx for this seem less likely: cardiac doesn't fit the symptoms (this is clearly different from what she was feeling before) and troponins trending down; has CXR appearance of CHF from last night but no rales (suboptimal exam, but no rales) and denies dyspnea. GI pain in the past seems to have felt significantly differently. therefore - fits with rib dysfunction/doesn't fit with other ddx - manage as ribs. (and of note - code blue was so transient before ROSC/return of consciousness i do not believe that she had any chest compressions (nor does she/no CPR started when i arrived yesterday, and none documented) dilated cardiomyopathy otherwise as above Subjective Mike is a 77 year old female w/ PmHx osteoarthritis, HTN, T2DM, CKD, mild persistent asthma, allergic rhinitis, sialoadenitis, paroxysmal atrial fibrillation on eliquis 5mg bid coming in for persistent atrial fibrillation. Patient states that (01/22) night she was getting up to go to the bathroom when she had felt a little short of breath. Her fitbit had told her the heart rate was elevated and irregular. She contacted the cardiology office Thursday (01/23) morning and they performed an EKG which showed A. fib with RVR and she was instructed to go to the ED if it persisted past 24 hours. Her history of atrial fibrillation goes back to December of 2019 when she was having hip surgery and it was spotted on routine monitoring. She states whenever she gets atrial fibrillation it usually lasts for a short period of time such as 30 minutes to a few hours. She is usually able to tell this from her fitbit since the high heart rates are not generally accompanied by symptoms. She denies any recent fevers, chills, diarrhea, constipation, headaches, cough, shortness of breath currently, chest pain, congestion. She was not doing anything physically exerting when the onset happened, she says just walking to the bathroom. Today, patient states she has chest pain that is categorized as a 9/10 in intensity and is worse when she breathes in. She had 2 similar episodes during the night that was controlled with morphine, but the pain returned after a few hours. This morning nursing contacted me to let me know she was having chest pain again. When I saw her she appeared to be short of breath and appeared to be uncomfortable when she breathed in. She denied diaphoresis or any other symptom. She had a lidocaine patch on her chest that has not been very helpful in improving her symptoms. When I pressed on the center of her chest, her chest pain was reproducible. Troponins have continued to follow a downward trend with this morning's level being 1552.5. EKG done today also without ischemic changes. Aspirin was given when she began complaining of chest pain symptoms. Pacemaker working properly. Review of Systems Review of Systems: As per HPI. Physical Exam Physical Exam: General: AAOx3, Afebrile, Cooperative, No acute Distress Chest: Symmetric expansions with respirations, Bandage covering pacemaker insertion site was clean/dry/intact, Lidocaine patch in middle of chest Cardio: Irregular rhythm, No murmurs/rubs/gallops Respiratory: CTA bilaterally, pain on deep inspiration Abdominal: soft and depressible, non distended, normal bowel sounds, non-tender Extremities: no swelling, negative Slime's sign bilaterally Integumentary: warm, dry, pink Results & Data Results & Data Vital Signs (Past 12 Hours) Vital Signs Temp Pulse Pulse Resp BP BP Pulse Ox 01/25/23 03:34 36.7 C 76 20 121/77 92 01/24/23 22:21 78 01/25/23 01:32 36.6 C 92 H 20 130/75 97 01/25/23 00:52 76 122/77 01/25/23 00:56 79 20 122/77 97 01/25/23 00:45 81 20 128/80 97 01/25/23 00:37 83 117/76 01/25/23 00:12 76 20 129/81 98 01/24/23 23:27 36.3 C L 77 18 115/68 98 01/25/23 00:04 36.6 C 91 H 20 130/84 100 01/24/23 20:00 36.6 C 97 H 20 123/76 97 01/24/23 20:00 O2 Del Method 01/25/23 03:34 Room Air 01/24/23 22:21 01/25/23 01:32 Room Air 01/25/23 00:52 01/25/23 00:56 Room Air 01/25/23 00:45 Room Air 01/25/23 00:37 09/03/23 00:12 Room Air 01/24/23 23:27 Room Air 01/25/23 00:04 Room Air 01/24/23 20:00 Room Air 01/24/23 20:00 Room Air Resident Activity Tracking Resident Involvement: Resident Care Provided Care Provided: Adult Hospital Medicine (5) GERD (gastroesophageal reflux disease) Esophagitis presence: esophagitis presence not specified Qualified Code(s): K21.9 - Gastro-esophageal reflux disease without esophagitis
[2023-01-25] MEDS: carvediloL 6.25 MG TAB PO SCH ×2 (08:02→18:11)
[2023-01-25] MEDS: ASPIRIN 81 MG ECTAB PO SCH (08:06)
[2023-01-25] MEDS: NITROGLYCERIN 0.4 MG/HR PATCH TD SCH (08:07)
[2023-01-25] MEDS: DULoxetine HCL 60 MG CAP PO SCH (08:12)
[2023-01-25] MEDS: MAGNESIUM OXIDE 400 MG TAB PO SCH ×2 (08:12→20:09)
[2023-01-25] MEDS: SPIRONOLACTONE 25 MG TAB PO SCH ×2 (08:13→20:10)
[2023-01-25] MEDS: CALCITRIOL 0.25 MCG CAPSULE PO SCH (08:13)
[2023-01-25] MEDS: MONTELUKAST SODIUM 10 MG TABLET PO SCH (08:14)
[2023-01-25] MEDS: FLUTICASONE/VILANTEROL 100/25MCG 14 PUFFS/INHALER INH SCH (08:14)
[2023-01-25] MEDS: PANTOprazole 40 MG TAB PO SCH ×2 (08:15→20:10)
[2023-01-25] MEDS: POTASSIUM CHLORIDE CRTAB 20 MEQ TABCR PO SCH (08:16)
[2023-01-25] MEDS: ACETAMINOPHEN 325 MG TAB PO PRN ×2 (08:26→21:54)
--- NOTE | 2023-01-25 08:28 | XRay Report ---
SINGLE VIEW CHEST CLINICAL HISTORY: Retrosternal chest pain. FINDINGS: An AP, portable, upright chest radiograph is compared to study dated 01/24/2023. A 2-lead car diac pacemaker is unchanged in position. The heart is enlarged noting atherosclerotic calcification o f the thoracic aorta. There is pulmonary vascular congestion with mild interstitial edema. Small pleu ral effusions are noted. No pneumothorax is seen. The skeletal structures are osteopenic. The bony th orax is grossly intact. A left shoulder arthroplasty is in place. Advanced arthritic change is seen i n the right shoulder. IMPRESSION: 1. Cardiomegaly and cardiac pacemaker with evidence of congestive failure and mild pulmonary edema. 2. Small pleural effusions. ACT 112: Negative or not required by law. Electronically signed by: Peña Howard M.D. 01/25/2023 8:27 AM
[2023-01-25] MEDS ORDERED: FUROSEMIDE INJ 20 MG/2 ML VIAL IV ONE (10:31)
--- NOTE | 2023-01-25 11:50 | XCELERA ---
[id number] [id number]
[2023-01-25] MEDS: ETHACRYNIC ACID 25 MG TAB PO PRN (13:29)
[2023-01-25] MEDS ORDERED: DICLOFENAC SOD 1% GEL 100 GM TUBE EXT PRN (13:30)
[2023-01-25] MEDS ORDERED: ACETAMINOPHEN 500 MG TAB PO ONE (14:31)
[2023-01-25] MEDS ORDERED: diazePAM 5 MG TABLET PO ONE (14:31)
--- NOTE | 2023-01-25 15:17 | Billing Data ---
Date of Service January 25, 2023 Coding Level of Care Code 11064 SUB INP/OBS CARE
[2023-01-25] MEDS: DICLOFENAC SOD 1% GEL 100 GM TUBE EXT SCH ×2 (17:29→20:11)
--- NOTE | 2023-01-25 18:09 | Cardiology Progress Note ---
Date of Service January 25, 2023 Assessment & Plan (1) Ventricular tachycardia: (2) Non-ST elevation (NSTEMI) myocardial infarction: (3) Tachy-lina syndrome: (4) Atrial fibrillation with RVR: (5) Cardiomyopathy: (6) Status post placement of cardiac pacemaker: (7) Hypertension: (8) Hyperlipidemia associated with type 2 diabetes mellitus: Plan ASSESSMENT/PLAN: 1. Ventricular tachycardia: Had syncope with ventricular tachycardia which spontaneously converted to atrial fibrillation. Etiology of ventricular tachycardia may be ischemic in origin given elevated troponin, and thus myocardial injury. Concern of possible branch vessel occlusion (ramus versus high diagonal) when reviewing Images. Continue beta-ankit. QT has increased on amiodarone, which is not unexpected. Avoid medications which can further prolong QT. Amiodarone also discontinued following the event. Continue to monitor. If felt to be ischemic in origin, ICD not necessary for secondary prevention given that it occurred within the first 48 hours of troponin elevation. 2. NSTEMI: Concern for small branch vessel occlusion (ramus versus high diagonal). Troponin elevation typical for ischemic event. No clear angina but diaphoretic episode with jaw numbness. No further such episodes. Aspirin 81 mg daily while hospitalized but can discontinue on discharge given no PCI and on long-term anticoagulation therapy. Continue beta-ankit. Statin therapy. 3. Cardiomyopathy: Nonischemic. Not likely tachycardia induced given that she monitors her heart rate with her smart phone. Carvedilol has been initiated following pacemaker placement on 01/23/2023. She appears hypervolemic today and had mildly elevated LVEDP on 01/24/2023 cath. Agree with diuretic. Strict I's and O's. Recommend negative net fluid balance. Consideration for ICD for primary prevention if LV systolic function remains significantly reduced following optimized therapy. Start low-dose Entresto and monitor renal function and potassium closely. 4. Atrial fibrillation/flutter: Paroxysmal. Even before amiodarone, was having episodes of sinus, albeit brief. Asymptomatic. Atrial paced today despite amiodarone discontinuation on 01/24/2023. Amiodarone discontinued given sustained ventricular tachycardia with loss of consciousness in the setting of more prolonged QT. Continue anticoagulation for stroke risk reduction. 5. Tachybradycardia syndrome: Underwent pacemaker placement on 01/23/2023. 6. Pacemaker: Continue to follow with EP. 7. Hypertension: Normotensive today. Will replace nifedipine with Entresto, targeting medications more beneficial for her newly found cardiac issues. 8. Disposition: Cardiology will continue to follow. Patient care discussed with Dr. Ca of the primary hospitalist service. Follow-up with Dr. Mitchell on discharge. Also recommend heart failure program. Admission and Anticipated Discharge Date Admission Date: January 20, 2023 Subjective Last night, she developed chest discomfort. The chest discomfort is very much so pleuritic in nature and radiates to her back. It is very tender to palpation. She denies shortness of breath, syncope, near syncope, palpitations, or bleeding. She was alone in her hospital room. Physical Exam Physical Exam: Gen.: No acute distress. Alert. Neck: No JVD. Cardiac: No ventricular heave. Regular. Normal S1-S2. No murmurs, rubs, or gallops. Pulmonary: Rales in the bases, left more than right. Abdomen: Soft, nontender, nondistended, with normoactive bowel sounds. No bruits noted. Extremities: 2+ radial pulses bilaterally. 2+ posterior tibialis pulses bilaterally. 1+ bilateral lower extremity edema. Chest: Very tender to palpation along the sternal borders and around to the back, reproducing her pain. Pain elicited even with minor palpation. No obvious bruising, mass, hematoma. Results & Data Vital Signs (Past 12 Hours) Vital Signs Temp Pulse Pulse Resp BP BP Pulse Ox 01/25/23 16:23 36.6 C 45 L 21 109/74 92 01/25/23 10:38 36.6 C 90 19 105/68 97 01/25/23 08:15 01/25/23 09:56 99 H 01/25/23 07:45 36.6 C 80 20 122/81 92 O2 Del Method O2 Flow Rate 01/25/23 16:23 Nasal Cannula 1.5 01/25/23 10:38 Nasal Cannula 1 01/25/23 08:15 Room Air 01/25/23 09:56 01/25/23 07:45 Room Air Intake & Output 01/23/23 01/24/23 01/25/23 01/26/23 06:59 06:59 06:59 06:59 Intake Total 1935.121 / 2927.971 6443 / 1190 1001.88 / 1001.88 Balance 1936.121 / 3078.866 0714 / 1190 1001.88 / 1001.88 Weight 227 lb 4.745 oz 224 lb 13.944 oz 229 lb 0.964 oz Laboratory Results Laboratory Results - last 24 hr 01/24/23 01/25/23 01/25/23 20:00 05:25 05:25 WBC 9.14 RBC 3.94 L Hgb 10.0 L Hct 32.3 L MCV 82.0 MCH 25.4 MCHC 31.0 L RDW Std Deviation 54.7 H RDW Coeff of Amrita 18.1 H Plt Count 288 MPV 10.3 Immature Gran % (Auto) 0.2 Neut % (Auto) 79.2 Lymph % (Auto) 10.4 Otero % (Auto) 9.2 Eos % (Auto) 0.8 Baso % (Auto) 0.2 Neut # (Auto) 7.24 H Lymph # (Auto) 0.95 L Otero # (Auto) 0.84 H Eos # (Auto) 0.07 Baso # (Auto) 0.02 Immature Gran # (Auto) 0.02 APTT 60.9 H* PTT Ratio 2.2 Sodium Potassium Chloride Carbon Dioxide Anion Gap BUN Creatinine Est Cr Clr Drug Dosing Est GFR ( Amer) Est GFR (Non-Af Amer) BUN/Creatinine Ratio Glucose Calcium Magnesium Troponin I High Sens 2752.2 H* D 01/25/23 01/25/23 05:25 08:31 WBC RBC Hgb Hct MCV MCH MCHC RDW Std Deviation RDW Coeff of Amrita Plt Count MPV Immature Gran % (Auto) Neut % (Auto) Lymph % (Auto) Otero % (Auto) Eos % (Auto) Baso % (Auto) Neut # (Auto) Lymph # (Auto) Otero # (Auto) Eos # (Auto) Baso # (Auto) Immature Gran # (Auto) APTT PTT Ratio Sodium 137 Potassium 4.4 Chloride 106 Carbon Dioxide 26 Anion Gap 5 BUN 22 Creatinine 2.03 H Est Cr Clr Drug Dosing 31.0 Est GFR ( Amer) 26.9 Est GFR (Non-Af Amer) 23.2 BUN/Creatinine Ratio 10.8 Glucose 144 H Calcium 8.9 Magnesium 1.9 Troponin I High Sens 1798.9 H* D 1552.5 H* Diagnostic Findings Telemetry personally reviewed: When reviewed early this afternoon, she had been atrial paced since 8:35 PM on 01/24/2023. Limited echo 01/24/2023: EF 35 to 40%. Global hypokinesis. No significant pericardial effusion. ECG personally reviewed 01/25/2023: Atrial paced 97 bpm. Prolonged QT. ECG at 0012: Atrial paced 91 bpm. Prolonged QT. Nonspecific T wave abnormality. Labs notable for abnormal but stable renal function, mild anemia, normal potassium, normal magnesium, peak high-sensitivity troponin 3424. Medications Administered Current Inpatient Medications Acetaminophen (Acetaminophen 325 Mg Tab) 650 mg PO Q4H PRN PRN Reason: Pain or Fever Stop: 02/20/23 01:05 Last Admin: 01/25/23 08:26 Dose: 650 mg Albuterol (Albuterol Hfa 8 Gm Inhaler) 2 puffs INH Q6H PRN PRN Reason: shortness of breath or wheezin Stop: 02/20/23 01:05 Aspirin (Aspirin 81 Mg Ectab) 81 mg PO QAM [facility] Stop: 02/24/23 08:59 Last Admin: 01/25/23 08:06 Dose: 81 mg Atorvastatin Calcium (Atorvastatin 40 Mg Tab) 40 mg PO HS [facility] Stop: 02/23/23 20:59 Last Admin: 01/24/23 20:20 Dose: 40 mg Calcitriol (Calcitriol 0.25 Mcg Capsule) 0.5 mcg PO DAILY [facility] Stop: 02/20/23 08:59 Last Admin: 01/25/23 08:13 Dose: 0.5 mcg Carvedilol (Carvedilol 6.25 Mg Tab) 18.75 mg PO BIDM [facility] Stop: 02/23/23 16:59 Last Admin: 01/25/23 08:02 Dose: 18.75 mg Diclofenac Sodium (Diclofenac Sod 1% Gel 100 Gm Tube) 2 gm EXT QID PRN; Protocol PRN Reason: pain Stop: 02/24/23 13:29 Last Admin: 01/25/23 15:25 Dose: 2 gm Diclofenac Sodium (Diclofenac Sod 1% Gel 100 Gm Tube) 2 gm EXT QID CAROL; Protocol Stop: 02/24/23 16:59 Last Admin: 01/25/23 17:29 Dose: Not Given Duloxetine HCl (Duloxetine Hcl 60 Mg Cap) 60 mg PO QAM [facility] Stop: 02/20/23 08:59 Last Admin: 01/25/23 08:12 Dose: 60 mg Ethacrynic Acid (Ethacrynic Acid 25 Mg Tab) 50 mg PO QAM PRN PRN Reason: Pulmonary edema/effusions Stop: 02/24/23 12:44 Last Admin: 01/25/23 13:29 Dose: 50 mg Fluticasone/Vilanterol (Fluticasone/Vilanterol 100/25mcg 14 Puffs/Inhaler) 1 puffs INH DAILY [facility] Stop: 02/22/23 08:59 Last Admin: 01/25/23 08:14 Dose: 1 puffs Lactated Ringer's (Lr) 1,000 mls @ 15 mls/hr IV .Q24H [facility] Stop: 01/26/23 00:39 Last Admin: 01/25/23 06:27 Dose: Not Given Heparin Sodium/Dextrose (Heparin Sodium/Dextrose) 25,000 units in 500 mls @ 30 mls/hr IV .[id number] [facility]; Protocol Stop: 02/22/23 18:44 Last Admin: 01/25/23 05:10 Dose: 1,500 units/hr, 30 mls/hr Levalbuterol HCl (Levalbuterol Hcl 0.63 Mg/3 Ml Neb) 0.63 mg INH Q4H PRN; Protocol PRN Reason: Cough Stop: 02/20/23 01:05 Levothyroxine Sodium (Levothyroxine Sodium 137 Mcg Tablet) 137 mcg PO DAILYBB [facility] Stop: 02/20/23 06:29 Last Admin: 01/25/23 06:26 Dose: 137 mcg Magnesium Oxide (Magnesium Oxide 400 Mg Tab) 400 mg PO BID [facility] Stop: 02/20/23 08:59 Last Admin: 01/25/23 08:12 Dose: 400 mg Miscellaneous (Remove Nitro-Dur Patch) 1 each N/A DAILY@2100 [facility] Stop: 02/20/23 20:59 Last Admin: 01/24/23 20:24 Dose: Not Given Montelukast Sodium (Montelukast Sodium 10 Mg Tablet) 10 mg PO DAILY [facility] Stop: 02/20/23 08:59 Last Admin: 01/25/23 08:14 Dose: 10 mg Nifedipine (Nifedipine Extended Rel 30 Mg Tabcr) 90 mg PO HS [facility] Stop: 02/20/23 20:59 Last Admin: 01/24/23 20:20 Dose: 90 mg Nitroglycerin (Nitroglycerin 0.4 Mg/Hr Patch) 1 patch TD QAM [facility] Stop: 02/20/23 08:59 Last Admin: 01/25/23 08:07 Dose: 1 patch Pantoprazole Sodium (Pantoprazole 40 Mg Tab) 40 mg PO BID [facility] Stop: 02/22/23 20:59 Last Admin: 01/25/23 08:15 Dose: 40 mg Polyethylene Glycol (Polyethylene (Miralax) 17 Gm Pack) 17 gm PO DAILY PRN PRN Reason: Constipation Stop: 02/20/23 01:05 Potassium Chloride (Potassium Chloride Crtab 20 Meq Tabcr) 20 meq PO QAM [facility] Stop: 02/20/23 08:59 Last Admin: 01/25/23 08:16 Dose: 20 meq Prednisone (Prednisone 5 Mg Tab) 5 mg PO HS [facility] Stop: 02/20/23 01:05 Last Admin: 01/24/23 20:19 Dose: 5 mg Spironolactone (Spironolactone 25 Mg Tab) 25 mg PO BID [facility] Stop: 02/20/23 08:59 Last Admin: 01/25/23 08:13 Dose: 25 mg PG Care Time/CCT Total # of Minutes Spent Total Time Spent with Patient: Total time spent is greater than 50% in coordination of care (as documented) at patient's floor/unit and/or counseling patient: Coding Level of Care Code 84554 SUB INP/OBS CARE 3/50MIN Diagnoses Ventricular tachycardia I47.20 Non-ST elevation (NSTEMI) myocardial infarction I21.4 Tachy-lina syndrome I49.5 Atrial fibrillation with RVR I48.91 Cardiomyopathy I42.9 Status post placement of cardiac pacemaker Z95.0 Hypertension I10 Hyperlipidemia associated with type 2 diabetes mellitus E11.69; E78.5
[2023-01-25] MEDS: ATORVASTATIN 40 MG TAB PO SCH (20:09)
[2023-01-25] MEDS: predniSONE 5 MG TAB PO SCH (20:10)
[2023-01-25] MEDS ORDERED: VALSARTAN/SACUBITRIL 26/24MG TAB PO SCH (21:00)
[2023-01-26] MEDS: LEVOTHYROXINE SODIUM 137 MCG TABLET PO SCH (05:33)
[2023-01-26 06:41] LABS: Basophils # (auto) 0.02 K/uL (0.00-0.20); Basophils % (auto) 0.2 %; Eosinophils # (auto) 0.05 K/uL (0.00-0.50); Eosinophils % (auto) 0.6 %; Hemoglobin 9.6 g/dl (12.0-16.0); Immature Granulocytes # (auto) 0.06 K/uL (0.01-0.20); Immature Granulocytes % (auto) 0.7 %; Lymphocytes # (auto) 0.82 K/uL (1.20-3.40); Lymphocytes % (auto) 9.1 %; Mean Corpuscular Hemoglobin 26.1 pg (25.0-34.0); Mean Corpuscular Volume 81.5 fL (80.0-100.0); Mean Platelet Volume 11.3 fL (9.4-12.4); Monocytes # (auto) 1.47 K/uL (0.11-0.59); Monocytes % (auto) 16.3 %; Neutrophils # (auto) 6.58 K/uL (1.40-6.50); Neutrophils % (auto) 73.1 %; Platelet Count 282 K/uL (130-400); RDW Coefficient of Variation 18.1 % (11.5-14.5); RDW Standard Deviation 53.3 fL (36.4-46.3); Red Blood Count 3.68 M/uL (4.20-5.40)
[2023-01-26 06:43] LABS: Albumin Globulin Ratio 0.9 (0.9-2); Albumin Level 3.3 gm/dl (3.4-5.0); BUN Creatinine Ratio 10.6 (10-20); Bilirubin,Total 0.9 mg/dl (0.2-1.0); Calcium 8.5 mg/dl (8.6-10.3); Creatinine Clr Calc Pharmacy 24.9 ml/min; Est GFR (African American) 20.4 ml/min; Est GFR (Non-African American) 17.6 ml/min; Globulin 3.7 gm/dl (2.5-4.0); Magnesium 2.1 mg/dl (1.7-2.4); Potassium 4.6 mmol/L (3.5-5.1)
--- NOTE | 2023-01-26 07:24 | Hospitalist Progress Note ---
Date of Service January 26, 2023 Assessment & Plan (1) Tachy-lina syndrome: Plan: - permanent pacemaker placed on 01/23 -will follow cardiology recommendations (2) Status post placement of cardiac pacemaker: Plan: Patient is experiencing chest pain s/p placement of pacemaker but chest pain seems unrelated to position of pacemaker. Additionally, patient is no longer endorsing chest pain with palpation or chest pain reproducible with palpation. (3) Atrial fibrillation with RVR: Plan: Patient is no longer having RVR but is having periodic arrhythmias. Patient's AFib is currently controlled with Carvedilol, 18.75 mg, PO BID, although telemetry suggests patient has had arrhythmias for portions of the day. An ICD is being considered for the future. (4) Chronic anticoagulation: Plan: Patient is currently on Eliquis, 5 mg, PO, BID. (5) Chronic kidney disease with active medical management without dialysis, stage 3 (moderate): Plan: -latest creatinine 2.55, continue to trend with BMP (6) Iron deficiency anemia: Plan: -patient mildly anemic, Hgb of 9.6, monitor w/ daily CBCs -supplemented with ferrous sulfate as needed (7) GERD (gastroesophageal reflux disease): Plan: Patient currently on 40 mg pantoprazole, PO, BID to manage her GERD symptoms. (8) Elevated troponin: Plan: see below (9) Cardiomyopathy: Plan: see below (10) Non-ST elevation (NSTEMI) myocardial infarction: Plan: Patient is s/p NSTEMI with her troponins trending down. Patient is currently on atorvastatin, carvedilol, and aspirin after her NSTEMI and transdermal (TD) nitroglycerin patches as needed. (11) Psoriasis: Plan: Patient currently on 5 mg PO prednisone -tried to wean in past, but pt had problems < 4mg (12) Hypothyroidism: Plan: Patient on levothyroxine, 137 mcg daily PO. (13) Pulmonary edema: Plan: CXR on 01/25 showed small pleural effusions and pulm vasc congetion -Manage w/ Ethacrynic acid, 40 mg as needed, due to sulfa allergies (14) Hypertension: Plan: Continue on nifedipine -spironolactone held for now, recommendation from cardiology (15) Type II diabetes mellitus: Plan: -last A1C at 6.7, hold DM meds while in hospital -if glucose values get high, add on SSI (16) Depression: Plan: --continue duloxetine Plan 77 year old female w/ PMHx osteoarthritis, HTN, T2DM, CKD, mild persistent asthma,and paroxysmal atrial fibrillation on Eliquis admitted for A fib w/ RVR. Pacemaker was placed 01/23 and has been functioning properly. CBC with stable Hb at 10.0, increased WBC count without leukocytosis, and decreased platelets. BMP without significant electrolyte abnormalities. Renal ma rkers improved when compared with past labs with creatinine still slightly elevated at 2.03 (decreased from 2.14 yesterday). Magnesium within reference range. CXR showing evidence of congestive heart failure and mild pulmonary edema, as well as small pleural effusions. Will order Ethacrynic acid 50mg PO as management due to sulfa allergy (contraindicates Lasix use). Elevated Troponin On 01/23 after having pacemaker placed, the patient was c/o chest pain and troponins were ordered. Initially,, they were in the 500s, so repeat troponins were ordered for a few hours afterwards, which revealed an increase to 1500s. The next day (01/24) she did not c/o chest pain, but did feel diaphoretic and had some SOB and some numbness in her jaw/neck area. An EKG was done and showed no ischemic changes. Repeat troponin level that same day showed increase to 3400s. This increase may be associated to recent pacemaker, but possibility of this being related to cardiac ischemia cannot be ruled out. Cardiology was notified of this increase in troponin and of her symptoms in that morning. Later on in the day (01/24), she developed sinus tachycardia detected on telemetry and she became unconscious. A code purple was called but by the time the team arrived, the patient had become conscious again. She was noted to be significantly short of breath and diaphoretic. She denied having chest pain and only c/o feeling sweaty. Cardiology arrived and the patient was advised that due to her increasing troponins and her current episode of ventricular tachycardia with syncope, the possibility of myocardial ischemia was much more likely and recommended to perform catheterization. She was given Aspirin and taken for catheterization today. Cardiac catheterization revealed no significant coronary artery obstruction. Nevertheless, she was started on anti-platelet therapy with Aspirin, and Carvedilol dose was increased to 18.75 mg PO BID. Amiodarone was discontinued. Will continue to monitor telemetry and for signs of myocardial ischemia. Will re-check Troponins tomorrow to check trend. (01/25) Troponins following a decreasing trend (currently 1552.5). Telemetry showing A-fib. Her chest pain may be associated with musculoskeletal cause or pre-existing GI symptoms. Ordered Tylenol for pain control, and should this fail, will attempt Voltaren gel. Will continue to monitor. Paroxysmal A. fib with rapid ventricular response -Past history of paroxysmal A. fib diagnosed 3 years ago. -ECHO: Moderate to Severe reduced systolic function EF 30-35%, Global hypokinesis. Mild concentric left ventricular hyperthrophy, Moderate biatrial dilation (LV has decline compared to prior in 2020) -Given diltiazem 20mg IV in the ED with rates coming down thereafter. -Consulted cardiology, will appreciate recommendations. - Amiodarone IV started initially - discontinued on 01/24 after catheterization - Pacemaker was inserted (01/23) -Continue home Eliquis 5mg -Keep K >4, Mg >2. -follow labs am Global hypokinesis EF 30-35% -Probably due to current paroxysmal A.Fib -Patient denied SOB or chest pain -Cardiology recommendation: -Due to bradycardia, will not be cannot place her on appropriate heart failure medications. F/E/N/GI: Heart Healthy DVT Prophylaxis: Heparin drip Code status: Full code. Dispo: PCU/tele. Admission and Anticipated Discharge Date Admission Date: January 20, 2023 Supervising Physician Co-Signing Physician Notes I personally examined the patient and verified ellis points of history and exam, discussed case, and agree with decision making and plan documented by Dr. Sullivan. Patient with hypotension today, sacubitril/valsartan and spironolactone at present on hold, monitoring kidney function closely, patient on eliquis, supplemental O2 at 2L, and off heparin drip at present. Patient feeling fatigued and states anterior left pleuritic chest pain still active with some improvement. Subjective Patient is a 77 yo F with a PMHx significant for SI joint arthritis, T2DM, HLD, esophageal spasm, peptic ulcer disease, psoriasis, depression, anxiety, CKD, and HTN. Has had chest pain each of three nights patient has been in hospital but it is improving; she could sleep last night (10 hours in all). The chest discomfort is only present upon inspiration (pleuritic in nature) and radiates to her back. Patient describes it as a 4/10 severity. It is no longer tender to palpation. Patient feels that Voltaren from yesterday may have improved chest pain/tenderness associated with palpation. Patient also notes that the chest pain improves when going from a lying to a sitting position. She denies shortness of breath, lightheadedness, palpitations, or bleeding. She feels some numbness in right hand, inferior to site of cardiac catheterization access. Denies neck/jaw pain. Patient endorses some slight right-sided RUQ abdominal pain, not worsened by palpation, that she feels is worse due to decreased food intake. Review of Systems Review of Systems: As per HPI. Ear, Nose, Mouth, Throat: no ear pain, no facial pain and no TMJ pain Respiratory: + pain on inspiration Cardiovascular: + chest pain with activity; no radiating jaw, neck or arm pain and no palpitations Additional Comments: decreased chest pain when sitting up as opposed to lying down Gastrointestinal: + abdominal pain (some right sided abdominal pain ); no nausea and no vomiting Genitourinary: no urinary frequency and no urinary urgency Neurologic: no tingling, no numbness and no dizziness Psychiatric: AAOx4 Physical Exam Respiratory: normal respiratory effort Cardiovascular: RRR, no murmur, no edema Palpation: normal PMI Extremities: normal capillary refill; no calf tenderness and no pedal edema Chest (Breasts): Chest: + pacemaker Additional Comments: Patient does not endorse any pain with palpation of chest, only with inspiration. Gastrointestinal (Abdomen): normal bowel sounds, soft, nontender, no hepatosplenomegaly Inspection/Auscultation: abdomen normal to inspection and normal bowel sounds Percussion/Palpation: abdomen soft; no hepatosplenomegaly Results & Data Results & Data Vital Signs (Past 12 Hours) Vital Signs Temp Pulse Resp BP Pulse Ox O2 Del Method O2 Flow Rate 01/26/23 02:22 36.6 C 88 18 106/58 L 93 Nasal Cannula 2 01/25/23 22:48 36.9 C 88 18 106/61 93 Nasal Cannula 01/25/23 20:00 Nasal Cannula 2 (7) GERD (gastroesophageal reflux disease) Esophagitis presence: esophagitis presence not specified Qualified Code(s): K21.9 - Gastro-esophageal reflux disease without esophagitis (15) Type II diabetes mellitus Chronic kidney disease stage: stage 4 (severe) 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 complication detail: with chronic kidney disease 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 complication status: with kidney complications 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 snf insulin use: without 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 use Qualified Code(s): E11.22 - Type 2 diabetes mellitus with diabetic chronic kidney disease; N18.4 - Chronic kidney disease, stage 4 (severe)
[2023-01-26] MEDS: MAGNESIUM OXIDE 400 MG TAB PO SCH ×2 (07:59→21:32)
[2023-01-26] MEDS: ASPIRIN 81 MG ECTAB PO SCH (07:59)
[2023-01-26] MEDS: PANTOprazole 40 MG TAB PO SCH ×2 (07:59→21:33)
[2023-01-26] MEDS: MONTELUKAST SODIUM 10 MG TABLET PO SCH (08:00)
[2023-01-26] MEDS: SPIRONOLACTONE 25 MG TAB PO SCH (08:00)
[2023-01-26] MEDS: ETHACRYNIC ACID 25 MG TAB PO PRN (08:00)
[2023-01-26] MEDS: NITROGLYCERIN 0.4 MG/HR PATCH TD SCH (08:00)
[2023-01-26] MEDS: carvediloL 6.25 MG TAB PO SCH ×2 (08:00→17:34)
[2023-01-26 08:01] LABS: Partial Thromboplastin Ratio 2.2
[2023-01-26] MEDS: FLUTICASONE/VILANTEROL 100/25MCG 14 PUFFS/INHALER INH SCH (08:02)
[2023-01-26] MEDS: CALCITRIOL 0.25 MCG CAPSULE PO SCH (08:02)
[2023-01-26] MEDS: POTASSIUM CHLORIDE CRTAB 20 MEQ TABCR PO SCH (08:02)
[2023-01-26] MEDS: DICLOFENAC SOD 1% GEL 100 GM TUBE EXT SCH ×4 (08:02→21:32)
[2023-01-26] MEDS: DULoxetine HCL 60 MG CAP PO SCH (08:02)
[2023-01-26 08:08] LABS: Partial Thromboplastin Time 62.4 Seconds (21.0-31.0)
[2023-01-26] MEDS: HEPARIN SODIUM/DEXTROSE 25,000 UNITS/500 ML BAG IV SCH (13:52)
--- NOTE | 2023-01-26 13:52 | Cardiology Progress Note ---
Date of Service January 26, 2023 Assessment & Plan (1) Ventricular tachycardia: (2) Non-ST elevation (NSTEMI) myocardial infarction: (3) Tachy-lina syndrome: (4) Atrial fibrillation with RVR: (5) Cardiomyopathy: (6) Status post placement of cardiac pacemaker: (7) Hypertension: (8) Hyperlipidemia associated with type 2 diabetes mellitus: Plan ASSESSMENT/PLAN: 1. Ventricular tachycardia: Had loss of consciousness with ventricular tachycardia which spontaneously converted to atrial fibrillation on 01/24/23. Etiology of ventricular tachycardia may be ischemic in origin given elevated troponin, and thus myocardial injury. Concern of possible branch vessel occlusion (ramus versus high diagonal) when reviewing Images. Continue beta- ankit. QT has increased on amiodarone, which is not unexpected. Avoid medications which can further prolong QT. Amiodarone also discontinued following the event. Continue to monitor. If felt to be ischemic in origin, ICD not necessary for secondary prevention given that it occurred within the first 48 hours of troponin elevation. 2. NSTEMI: Concern for small branch vessel occlusion (ramus versus high diagonal). Troponin elevation typical for ischemic event. No clear angina but diaphoretic episode with jaw numbness. No further such episodes. Aspirin 81 mg daily while hospitalized but can discontinue on discharge given no PCI and on long-term anticoagulation therapy. Continue beta-ankit. Statin therapy. 3. Cardiomyopathy: Nonischemic. Not likely tachycardia induced given that she monitors her heart rate with her smart phone. Carvedilol has been initiated following pacemaker placement on 01/23/2023. Received ethacrynic acid on 01/25/2023. Renal function slightly worsened today, also 48 hours after dye load. Strict I's and O's. Volume status appears improved. Consideration for ICD for primary prevention if LV systolic function remains significantly reduced following optimized therapy. Given hypotension this morning and worsening renal function, Entresto and spironolactone held today. Please reassess going forward and resume when appropriate. 4. Atrial fibrillation/flutter: Paroxysmal. Even before amiodarone, was having episodes of sinus, albeit brief. Asymptomatic. Mostly atrial paced yesterday. Mostly atrial fibrillation today but heart rate improved on beta-ankit. Amiodarone discontinued given sustained ventricular tachycardia with loss of consciousness in the setting of more prolonged QT. Continue anticoagulation for stroke risk reduction. Okay to resume Eliquis in place of heparin. 5. Tachybradycardia syndrome: Underwent pacemaker placement on 01/23/2023. 6. Pacemaker: Continue to follow with EP. 7. Hypertension: Mildly hypotensive today but asymptomatic. Nifedipine discontinued on 01/25/2023. Hold orders placed on Entresto and spironolactone however did receive spironolactone today. Keeping beta-ankit dose today for rate control. 8. Hypokalemia: Chronically has been on potassium chloride at home but will discontinue today given renal function and likelihood that she will resume her home dose of spironolactone and hopefully Entresto given her cardiomyopathy. 9. Disposition: Cardiology will continue to follow. Dr. Schilling will resume her cardiology care tomorrow. Patient care communicated with Dr. Hensley of the primary hospitalist service. Follow-up with Dr. Mitchell on discharge. Highly complex medical issues. Admission and Anticipated Discharge Date Admission Date: January 20, 2023 Subjective Patient seen this morning. She feels better overall. Chest pain has improved. She denies shortness of breath. In general she feels weak when on her feet. She denies palpitations, syncope, near syncope, or bleeding. She was alone in her hospital room. Physical Exam Physical Exam: Gen.: No acute distress. Alert. Neck: No JVD. Cardiac: No ventricular heave. Regular. Normal S1-S2. No murmurs, rubs, or gallops. Pulmonary: Mild Rales in the bases have improved. Abdomen: Soft, nontender, nondistended, with normoactive bowel sounds. No bruits noted. Extremities: 2+ radial pulses bilaterally. 2+ posterior tibialis pulses bilaterally. Trace bilateral lower extremity edema. Results & Data Vital Signs (Past 12 Hours) Vital Signs Temp Pulse Resp BP Pulse Ox O2 Del Method O2 Flow Rate 01/26/23 10:46 36.7 C 99 H 20 90/52 L 92 Nasal Cannula 2 01/26/23 10:13 Nasal Cannula 2 01/26/23 07:27 36.6 C 77 16 89/66 L 93 Nasal Cannula 2 01/26/23 02:22 36.6 C 88 18 106/58 L 93 Nasal Cannula 2 Intake & Output 01/24/23 01/25/23 01/26/23 01/27/23 06:59 06:59 06:59 06:59 Intake Total 1190 / 1190 1001.88 / 1001.88 1194.0 / 1194.0 Output Total 840 / 840 250 / 250 Balance 1190 / 1190 1001.88 / 1001.88 354.0 / 354.0 -250 / -250 Weight 224 lb 13.944 oz 229 lb 0.964 oz 228 lb 13.437 oz Laboratory Results Laboratory Results - last 24 hr 01/26/23 01/26/23 01/26/23 05:21 05:21 05:21 WBC 9.00 RBC 3.68 L Hgb 9.6 L Hct 30.0 L MCV 81.5 MCH 26.1 MCHC 32.0 RDW Std Deviation 53.3 H RDW Coeff of Amrita 18.1 H Plt Count 282 MPV 11.3 Immature Gran % (Auto) 0.7 Neut % (Auto) 73.1 Lymph % (Auto) 9.1 Ballard % (Auto) 16.3 Eos % (Auto) 0.6 Baso % (Auto) 0.2 Neut # (Auto) 6.58 H Lymph # (Auto) 0.82 L Ballard # (Auto) 1.47 H Eos # (Auto) 0.05 Baso # (Auto) 0.02 Immature Gran # (Auto) 0.06 APTT 62.4 H* PTT Ratio 2.2 Sodium 130 L Potassium 4.6 Chloride 99 Carbon Dioxide 24 Anion Gap 7 BUN 27 H Creatinine 2.55 H D Est Cr Clr Drug Dosing 24.9 Est GFR ( Amer) 20.4 Est GFR (Non-Af Amer) 17.6 BUN/Creatinine Ratio 10.6 Glucose 179 H Calcium 8.5 L Magnesium 2.1 Total Bilirubin 0.9 AST 19 ALT 24 Alkaline Phosphatase 89 Total Protein 7.0 Albumin 3.3 L Globulin 3.7 Albumin/Globulin Ratio 0.9 Diagnostic Findings Labs reviewed and notable for slightly worsening creatinine, slightly lowered hemoglobin, mild hyponatremia. Telemetry personally reviewed: Atrial fibrillation this morning with reasonable heart rates. Medications Administered Current Inpatient Medications Acetaminophen (Acetaminophen 325 Mg Tab) 650 mg PO Q4H PRN PRN Reason: Pain or Fever Stop: 02/20/23 01:05 Last Admin: 01/25/23 21:54 Dose: 650 mg Albuterol (Albuterol Hfa 8 Gm Inhaler) 2 puffs INH Q6H PRN PRN Reason: shortness of breath or wheezin Stop: 02/20/23 01:05 Aspirin (Aspirin 81 Mg Ectab) 81 mg PO QAM [facility] Stop: 02/24/23 08:59 Last Admin: 01/26/23 07:59 Dose: 81 mg Atorvastatin Calcium (Atorvastatin 40 Mg Tab) 40 mg PO HS [facility] Stop: 02/23/23 20:59 Last Admin: 01/25/23 20:09 Dose: 40 mg Calcitriol (Calcitriol 0.25 Mcg Capsule) 0.5 mcg PO DAILY [facility] Stop: 02/20/23 08:59 Last Admin: 01/26/23 08:02 Dose: 0.5 mcg Carvedilol (Carvedilol 6.25 Mg Tab) 18.75 mg PO BIDM [facility] Stop: 02/23/23 16:59 Last Admin: 01/26/23 08:00 Dose: 18.75 mg Diclofenac Sodium (Diclofenac Sod 1% Gel 100 Gm Tube) 2 gm EXT QID [facility]; Protocol Stop: 02/24/23 16:59 Last Admin: 01/26/23 08:02 Dose: 2 gm Duloxetine HCl (Duloxetine Hcl 60 Mg Cap) 60 mg PO QAM [facility] Stop: 02/20/23 08:59 Last Admin: 01/26/23 08:02 Dose: 60 mg Ethacrynic Acid (Ethacrynic Acid 25 Mg Tab) 50 mg PO QAM PRN PRN Reason: Pulmonary edema/effusions Stop: 02/24/23 12:44 Last Admin: 01/26/23 08:00 Dose: 50 mg Fluticasone/Vilanterol (Fluticasone/Vilanterol 100/25mcg 14 Puffs/Inhaler) 1 puffs INH DAILY [facility] Stop: 02/22/23 08:59 Last Admin: 01/26/23 08:02 Dose: 1 puffs Heparin Sodium/Dextrose (Heparin Sodium/Dextrose) 25,000 units in 500 mls @ 30 mls/hr IV .[id number] [facility]; Protocol Stop: 02/22/23 18:44 Last Admin: 01/25/23 20:18 Dose: 1,500 units/hr, 30 mls/hr Levalbuterol HCl (Levalbuterol Hcl 0.63 Mg/3 Ml Neb) 0.63 mg INH Q4H PRN; Protocol PRN Reason: Cough Stop: 02/20/23 01:05 Levothyroxine Sodium (Levothyroxine Sodium 137 Mcg Tablet) 137 mcg PO DAILYBB [facility] Stop: 02/20/23 06:29 Last Admin: 01/26/23 05:33 Dose: 137 mcg Magnesium Oxide (Magnesium Oxide 400 Mg Tab) 400 mg PO BID [facility] Stop: 02/20/23 08:59 Last Admin: 01/26/23 07:59 Dose: 400 mg Miscellaneous (Remove Nitro-Dur Patch) 1 each N/A DAILY@2100 [facility] Stop: 02/20/23 20:59 Last Admin: 01/25/23 20:14 Dose: Not Given Montelukast Sodium (Montelukast Sodium 10 Mg Tablet) 10 mg PO DAILY [facility] Stop: 02/20/23 08:59 Last Admin: 01/26/23 08:00 Dose: 10 mg Nitroglycerin (Nitroglycerin 0.4 Mg/Hr Patch) 1 patch TD QAM [facility] Stop: 02/20/23 08:59 Last Admin: 01/26/23 08:00 Dose: 1 patch Pantoprazole Sodium (Pantoprazole 40 Mg Tab) 40 mg PO BID [facility] Stop: 02/22/23 20:59 Last Admin: 01/26/23 07:59 Dose: 40 mg Polyethylene Glycol (Polyethylene (Miralax) 17 Gm Pack) 17 gm PO DAILY PRN PRN Reason: Constipation Stop: 02/20/23 01:05 Potassium Chloride (Potassium Chloride Crtab 20 Meq Tabcr) 20 meq PO QAM [facility] Stop: 02/20/23 08:59 Last Admin: 01/26/23 08:02 Dose: 20 meq Prednisone (Prednisone 5 Mg Tab) 5 mg PO HS [facility] Stop: 02/20/23 01:05 Last Admin: 01/25/23 20:10 Dose: 5 mg Sacubitril/Valsartan (Valsartan/Sacubitril 26/24mg Tab) 1 tab PO BID [facility] Stop: 02/24/23 20:59 Last Admin: 01/25/23 20:12 Dose: 1 tab Spironolactone (Spironolactone 25 Mg Tab) 25 mg PO BID [facility] Stop: 02/20/23 08:59 Last Admin: 01/26/23 08:00 Dose: 25 mg PG Care Time/CCT Total # of Minutes Spent Total Time Spent with Patient: Total time spent is greater than 50% in coordination of care (as documented) at patient's floor/unit and/or counseling patient: Coding Level of Care Code 04821 SUB INP/OBS CARE 3/50MIN Diagnoses Ventricular tachycardia I47.20 Non-ST elevation (NSTEMI) myocardial infarction I21.4 Tachy-lina syndrome I49.5 Atrial fibrillation with RVR I48.91 Cardiomyopathy I42.9 Status post placement of cardiac pacemaker Z95.0 Hypertension I10 Hyperlipidemia associated with type 2 diabetes mellitus E11.69; E78.5
[2023-01-26] MEDS: APIXABAN 5 MG TABLET PO SCH (21:31)
[2023-01-26] MEDS: ATORVASTATIN 40 MG TAB PO SCH (21:32)
[2023-01-26] MEDS: predniSONE 5 MG TAB PO SCH (21:33)
--- NOTE | 2023-01-26 22:22 | Electrocardiogram Report ---
Test Reason : Blood Pressure : / mmHG Vent. Rate : 091 BPM Atrial Rate : 092 BPM P-R Int : 262 ms QRS Dur : 096 ms QT Int : 416 ms P-R-T Axes : 000 -17 071 degrees QTc Int : 512 ms Atrial-paced rhythm with prolonged AV conduction Nonspecific T wave abnormality Prolonged QT Abnormal ECG When compared with ECG of 24-JAN-2023 12:47, Electronic atrial pacemaker has replaced Atrial fibrillation Confirmed by Jarocho Herrera ([id number]) on 01/26/2023 10:22:02 PM Referred By: REFERRED SELF Confirmed By:Jarocho Herrera
--- NOTE | 2023-01-26 22:47 | Electrocardiogram Report ---
Test Reason : Blood Pressure : / mmHG Vent. Rate : 097 BPM Atrial Rate : 097 BPM P-R Int : 256 ms QRS Dur : 096 ms QT Int : 392 ms P-R-T Axes : 027 -16 061 degrees QTc Int : 498 ms Atrial-paced rhythm with prolonged AV conduction Minimal voltage criteria for LVH, may be normal variant Nonspecific T wave abnormality Prolonged QT Abnormal ECG When compared with ECG of 25-JAN-2023 00:12, No significant change Confirmed by Jarocho Herrera ([id number] on 01/26/2023 10:47:07 PM Referred By: REFERRED SELF Confirmed By:Jarocho Herrera
[2023-01-27 06:12] LABS: BUN Creatinine Ratio 11.7 (10-20); Calcium 8.5 mg/dl (8.6-10.3); Creatinine Clr Calc Pharmacy 21.2 ml/min; Est GFR (African American) 16.9 ml/min; Est GFR (Non-African American) 14.5 ml/min; Magnesium 2.3 mg/dl (1.7-2.4); Potassium 4.9 mmol/L (3.5-5.1)
[2023-01-27 06:13] LABS: Basophils # (auto) 0.03 K/uL (0.00-0.20); Basophils % (auto) 0.3 %; Eosinophils # (auto) 0.08 K/uL (0.00-0.50); Eosinophils % (auto) 0.8 %; Hematocrit (blood only) 31.5 % (37.0-47.0); Hemoglobin 9.9 g/dl (12.0-16.0); Immature Granulocytes # (auto) 0.08 K/uL (0.01-0.20); Immature Granulocytes % (auto) 0.8 %; Lymphocytes # (auto) 0.82 K/uL (1.20-3.40); Lymphocytes % (auto) 8.5 %; Mean Corpuscular Hemoglobin 25.8 pg (25.0-34.0); Mean Corpuscular Hgb Conc 31.4 g/dL (32.0-36.0); Monocytes # (auto) 1.38 K/uL (0.11-0.59); Monocytes % (auto) 14.3 %; Neutrophils # (auto) 7.25 K/uL (1.40-6.50); Neutrophils % (auto) 75.3 %; Platelet Count 286 K/uL (130-400); RDW Standard Deviation 52.6 fL (36.4-46.3); Red Blood Count 3.84 M/uL (4.20-5.40); White Blood Count 9.64 K/ul (4.8-10.8)
[2023-01-27] MEDS: LEVOTHYROXINE SODIUM 137 MCG TABLET PO SCH (06:16)
[2023-01-27 06:30] LABS: Ferritin 74.7 ng/ml (8-388)
--- NOTE | 2023-01-27 07:13 | Hospitalist Progress Note ---
Date of Service January 27, 2023 Assessment & Plan (1) Acute kidney injury: (2) Pulmonary edema: (3) Status post placement of cardiac pacemaker: (4) Chronic kidney disease with active medical management without dialysis, stage 3 (moderate): (5) Tachy-lina syndrome: (6) Atrial fibrillation with RVR: (7) Non-ST elevation (NSTEMI) myocardial infarction: (8) Cardiomyopathy: (9) Elevated troponin: Plan 77 year old female w/ PMHx osteoarthritis, HTN, T2DM, CKD, mild persistent asthma,and paroxysmal atrial fibrillation on Eliquis admitted for A fib w/ RVR. Diltiazem was trialed and, subsequently, amiodarone trialed to control atrial fibrillation, but patient developed tachycardia-bradycardia syndrome (sick sinus syndrome). To control this a pacemaker was placed 01/23 and has been functioning properly. CBC with stable Hb at 10.0, increased WBC count without leukocytosis, and decreased platelets. BMP without significant electrolyte abnormalities. Renal markers improved when compared with past labs with creatinine still slightly elevated at 2.03 (decreased from 2.14 yesterday). Magnesium within reference range. CXR showing evidence of congestive heart failure and mild pulmonary edema, as well as small pleural effusions. Will order Ethacrynic acid 50mg PO as management due to sulfa allergy (contraindicates Lasix use). Acute Kidney Injury on top of CKD-stage 3 Patient's baseline creatinine ~ 1.7 - 2.0 -Patient's creatinine went from 2.03 (01/25/23) to 2.99 (01/27/23) this morning -Post NSTEMI/Cardiomyopathy there are concerns for cardiorenal syndrome -A second, afternoon creatinine (01/27/23: 4:30 pm) was 2.89, will continue to trend via BMPs Elevated Troponin/NSTEMI/Cardiomyopathy On 01/23 after having pacemaker placed, the patient was c/o chest pain and troponins were ordered. Initially,, they were in the 500s, so repeat troponins were ordered for a few hours afterwards, which revealed an increase to 1500s. The next day (01/24) she did not c/o chest pain, but did feel diaphoretic and had some SOB and some numbness in her jaw/neck area. An EKG was done and showed no ischemic changes. Repeat troponin level that same day showed increase to 3400s. This increase may be associated to recent pacemaker, but possibility of this being related to cardiac ischemia cannot be ruled out. Cardiology was notified of this increase in troponin and of her symptoms in that morning. Later on in the day (01/24), she developed ventricular tachycardia, after having long QT intervals detected on telemetry and she became unconscious. She was noted to be significantly short of breath and diaphoretic. She denied having chest pain and only c/o feeling sweaty. Cardiology arrived and the patient was advised that due to her increasing troponins and her current episode of ventricular tachycardia with syncope, the possibility of myocardial ischemia was likely and recommended to perform catheterization. She was given Aspirin and taken for catheterization today. Cardiac catheterization revealed no significant coronary artery obstruction. Nevertheless, she was started on anti-platelet therapy with Aspirin, and Carvedilol dose was increased to 18.75 mg PO BID. Amiodarone was discontinued. Will continue to monitor telemetry and for signs of myocardial ischemia. Will re-check Troponins tomorrow to check trend. (01/25) Troponins followed a decreasing trend (currently 1552.5). Telemetry showing A-fib. Her chest pain most likely a combination of musculoskeletal pain and pleuritic chest pain. Pulmonary edema CXR on 01/25 showed small pleural effusions and pulm vasc congestion after an unremarkable CXR on 01/22 - Patient was symptomatic with pleuritic chest pain, primarily with deep inspiration and felt in central sternal area -Manage w/ Ethacrynic acid, 40 mg as needed, due to sulfa allergies Paroxysmal A. fib with rapid ventricular response -Past history of paroxysmal A. fib diagnosed 3 years ago. -ECHO: Moderate to Severe reduced systolic function EF 30-35%, Global hypokinesis. Mild concentric left ventricular hyperthrophy, Moderate biatrial dilation (LV has decline compared to prior in 2020) -Given diltiazem 20mg IV in the ED with rates coming down thereafter. -Consulted cardiology, will appreciate recommendations. - Amiodarone IV started initially - discontinued on 01/24 after catheterization - Pacemaker was inserted (01/23) -Continue home Eliquis 5mg -Keep K >4, Mg >2. -follow labs am Global hypokinesis EF 30-35% -Probably due to current paroxysmal A.Fib -Patient denied SOB or chest pain -Cardiology recommendation: -Due to bradycardia, will not be cannot place her on appropriate heart failure medications. Hypertension Continue on nifedipine -spironolactone held for now, recommendation from cardiology Type 2 Diabetes -last A1C at 6.7, hold DM meds while in hospital -if glucose values get high, add on SSI Hypothyroidism Patient on levothyroxine, 137 mcg daily PO. Iron-deficiency anemia -patient mildly anemic, Hgb of 9.6, monitor w/ daily CBCs -supplemented with ferrous sulfate as needed GERD Patient currently on 40 mg pantoprazole, PO, BID to manage her GERD symptoms. Depression -continue duloxetine Psoriasis Patient currently on 5 mg PO prednisone -tried to wean in past, but pt had problems < 4mg Chronic anticoagulation Patient is currently on Eliquis, 5 mg, PO, BID. F/E/N/GI: Heart Healthy DVT Prophylaxis: Heparin drip Code status: Full code. Dispo: PCU/tele. Admission and Anticipated Discharge Date Admission Date: January 20, 2023 Supervising Physician Co-Signing Physician Notes I personally examined the patient and verified ellis points of history and exam, discussed case, and agree with decision making and plan documented by Dr. Sullivan. Patient with improvement of symptoms today, still reports fatigue, no chest pain or pleuritic pain today, Monitoring JULIO closely. Now on room air. Cardiology considering upgrade of pacemaker to ICD. Subjective Patient is a 77 yo F with a PMHx significant for SI joint arthritis, T2DM, HLD, esophageal spasm, peptic ulcer disease, psoriasis, depression/anxiety, CKD, and HTN. On hospital day 8, she is now post-NSTEMI, post-placemaker placement, CXR showing small pleural effusions. Has had chest pain each of three nights patient has been in hospital but it is improving; she could sleep last night (10 hours in all). The chest discomfort is only present upon inspiration (pleuritic in nature) and radiates to her back. Patient describes it as a 4/10 severity. It is no longer tender to palpation. Patient feels Voltaren from 01/25 prop improved MSK chest pain. Patient also notes chest pain improves when going from lying to sitting position. She denies shortness of breath, lightheadedness, palpitations, or bleeding. She feels some numbness in right hand, inferior to site of cardiac catheterization access. Denies neck/jaw pain. Patient endorses some slight right-sided RUQ abdominal pain, not worsened by palpation, that she feels is worse due to decreased food intake. Review of Systems Review of Systems: As per HPI. Ear, Nose, Mouth, Throat: no ear pain, no facial pain and no TMJ pain Respiratory: + dyspnea (orthopnea really, pt breathes better when sitting up) and + pain on inspiration Cardiovascular: + chest pain with activity; no radiating jaw, neck or arm pain and no palpitations Additional Comments: decreased chest pain when sitting up as opposed to lying down Gastrointestinal: + abdominal pain (some right sided abdominal pain (RLQ residual pain from colectomy)); no nausea and no vomiting Genitourinary: no urinary frequency and no urinary urgency Neurologic: no tingling, no numbness and no dizziness Psychiatric: AAOx4 Physical Exam Constitutional: WD/WN, vitals as above Patient appears more alert, awake today. More energetic Respiratory: normal respiratory effort Cardiovascular: RRR, no murmur, no edema Palpation: normal PMI Extremities: normal capillary refill; no calf tenderness and no pedal edema Chest (Breasts): Chest: + pacemaker Gastrointestinal (Abdomen): normal bowel sounds, soft, nontender, no hepatosplenomegaly Inspection/Auscultation: abdomen normal to inspection and normal bowel sounds Percussion/Palpation: abdomen soft; no hepatosplenomegaly Musculoskeletal: Head/Neck/Chest: + chest tenderness (2/10 pain if pacemaker site touched) Results & Data Results & Data Vital Signs (Past 12 Hours) Vital Signs Temp Pulse Pulse Resp BP Pulse Ox O2 Del Method 01/27/23 02:59 36.7 C 83 18 107/67 94 Nasal Cannula 01/26/23 22:00 84 01/26/23 22:00 Nasal Cannula 01/26/23 22:53 36.8 C 96 H 18 90/52 L 93 Nasal Cannula 01/26/23 19:17 36.7 C 70 18 96/56 L 93 Nasal Cannula O2 Flow Rate 01/27/23 02:59 01/26/23 22:00 01/26/23 22:00 2 01/26/23 22:53 01/26/23 19:17
[2023-01-27] MEDS: ASPIRIN 81 MG ECTAB PO SCH (08:07)
[2023-01-27] MEDS: CALCITRIOL 0.25 MCG CAPSULE PO SCH (08:07)
[2023-01-27] MEDS: FLUTICASONE/VILANTEROL 100/25MCG 14 PUFFS/INHALER INH SCH (08:07)
[2023-01-27] MEDS: APIXABAN 5 MG TABLET PO SCH ×2 (08:08→20:47)
[2023-01-27] MEDS: DULoxetine HCL 60 MG CAP PO SCH (08:08)
[2023-01-27] MEDS: PANTOprazole 40 MG TAB PO SCH ×2 (08:08→20:47)
[2023-01-27] MEDS: MONTELUKAST SODIUM 10 MG TABLET PO SCH (08:09)
[2023-01-27] MEDS: carvediloL 6.25 MG TAB PO SCH ×2 (08:09→16:24)
[2023-01-27] MEDS: MAGNESIUM OXIDE 400 MG TAB PO SCH ×2 (08:09→20:47)
[2023-01-27] MEDS: NITROGLYCERIN 0.4 MG/HR PATCH TD SCH (08:10)
[2023-01-27] MEDS: DICLOFENAC SOD 1% GEL 100 GM TUBE EXT SCH ×4 (08:11→20:48)
[2023-01-27 16:09] LABS: Calcium 8.9 mg/dl (8.6-10.3); Potassium 4.9 mmol/L (3.5-5.1)
[2023-01-27 16:15] LABS: BUN Creatinine Ratio 12.5 (10-20); Creatinine Clr Calc Pharmacy 21.9 ml/min; Est GFR (African American) 17.6 ml/min; Est GFR (Non-African American) 15.2 ml/min
[2023-01-27] MEDS: ATORVASTATIN 40 MG TAB PO SCH (20:46)
[2023-01-27] MEDS: predniSONE 5 MG TAB PO SCH (20:46)
--- NOTE | 2023-01-27 21:04 | Cardiology Progress Note ---
Date of Service January 27, 2023 Assessment & Plan (1) Ventricular tachycardia: (2) Non-ST elevation (NSTEMI) myocardial infarction: (3) Tachy-lina syndrome: (4) Atrial fibrillation with RVR: (5) Cardiomyopathy: (6) Status post placement of cardiac pacemaker: (7) Hypertension: (8) Hyperlipidemia associated with type 2 diabetes mellitus: Plan ASSESSMENT/PLAN: 1. Ventricular tachycardia: Monomorphic VT. Not consistent with VT induced by prolonged QT. Not related to amiodarone. However, SHe does not appear very symptomatic from her AF. Unclear benefit at this point from amiodarone which has been discontinued. Also, even if this was somehow related to ischemia, no r evascularization was performed. She continues to have reduced LV function. I would advocate an upgrade of her pacemaker to an ICD. I discussed this with the patient today who is agreeable. We will wait to see what the renal function does tomorrow and plan implant before discharge. 2. NSTEMI: Concern for small branch vessel occlusion (ramus versus high diagonal). Troponin elevation typical for ischemic event. No clear angina but diaphoretic episode with jaw numbness. No further such episodes. Aspirin 81 mg daily while hospitalized but can discontinue on discharge given no PCI and on long-term anticoagulation therapy. Continue beta-ankit. Statin therapy. 3. Cardiomyopathy: Nonischemic. Not likely tachycardia induced given that she monitors her heart rate with her smart phone. Carvedilol has been initiated following pacemaker placement on 01/23/2023. Received ethacrynic acid on 01/25/2023. Renal function slightly worsened today, also 48 hours after dye load. Strict I's and O's. Volume status appears improved. WIll initiate additional therapy when renal function allows 4. Atrial fibrillation/flutter: Paroxysmal. 5. Tachybradycardia syndrome: Underwent pacemaker placement on 01/23/2023. 6. Pacemaker: Continue to follow with EP. 7. Hypertension: Mildly hypotensive today but asymptomatic. Nifedipine discontinued on 01/25/2023. Hold orders placed on Entresto and spironolactone however did receive spironolactone today. Keeping beta-ankit dose today for rate control. Admission and Anticipated Discharge Date Admission Date: January 20, 2023 Subjective This evening the patient was feeling well. No chest pain. No dyspnea. Ambulatory without symptoms. NO palpitations. Anxious for discharge Review of Systems Review of Systems: per HPI Physical Exam Physical Exam: Gen.: No acute distress. Alert. Cardiac: Irregular. No murmur Pulmonary: Normal respiratory effort Extremities: 2+ radial pulses bilaterally. 2+ posterior tibialis pulses bilaterally. Trace bilateral lower extremity edema. Results & Data Vital Signs (Past 12 Hours) Vital Signs Temp Pulse Resp BP BP Pulse Ox O2 Del Method 01/27/23 19:16 36.8 C 89 18 120/68 93 Nasal Cannula 01/27/23 15:56 36.9 C 111 H 18 106/73 92 Room Air 01/27/23 11:22 36.7 C 101 H 20 93/62 L 93 Nasal Cannula O2 Flow Rate 01/27/23 19:16 01/27/23 15:56 01/27/23 11:22 2 Laboratory Results Abnormal Lab Results 01/27/23 01/27/23 01/27/23 05:24 05:24 15:39 WBC 9.64 RBC 3.84 L Hgb 9.9 L Hct 31.5 L MCV 82.0 MCH 25.8 MCHC 31.4 L RDW Std Deviation 52.6 H RDW Coeff of Amrita 18.0 H Plt Count 286 MPV 11.0 Immature Gran % (Auto) 0.8 Neut % (Auto) 75.3 Lymph % (Auto) 8.5 Pickett % (Auto) 14.3 Eos % (Auto) 0.8 Baso % (Auto) 0.3 Neut # (Auto) 7.25 H Lymph # (Auto) 0.82 L Pickett # (Auto) 1.38 H Eos # (Auto) 0.08 Baso # (Auto) 0.03 Immature Gran # (Auto) 0.08 Sodium 130 L 129 L Potassium 4.9 4.9 Chloride 99 99 Carbon Dioxide 24 21 Anion Gap 7 9 BUN 35 H 36 H Creatinine 2.99 H D 2.89 H Est Cr Clr Drug Dosing 21.2 21.9 Est GFR ( Amer) 16.9 17.6 Est GFR (Non-Af Amer) 14.5 15.2 BUN/Creatinine Ratio 11.7 12.5 Glucose 169 H 132 H Calcium 8.5 L 8.9 Magnesium 2.3 Transferrin 231 Ferritin 74.7 PG Care Time/CCT Total # of Minutes Spent Total Time Spent with Patient: Total time spent is greater than 50% in coordination of care (as documented) at patient's floor/unit and/or counseling patient: Coding Level of Care Code 93297 SUB INP/OBS CARE 2/35MIN Diagnoses Ventricular tachycardia I47.20 Non-ST elevation (NSTEMI) myocardial infarction I21.4 Tachy-lina syndrome I49.5 Atrial fibrillation with RVR I48.91 Cardiomyopathy I42.9 Status post placement of cardiac pacemaker Z95.0 Hypertension I10 Hyperlipidemia associated with type 2 diabetes mellitus E11.69; E78.5
[2023-01-28] MEDS: LEVOTHYROXINE SODIUM 137 MCG TABLET PO SCH (06:13)
[2023-01-28] MEDS: NITROGLYCERIN 0.4 MG/HR PATCH TD SCH (07:56)
[2023-01-28] MEDS: CALCITRIOL 0.25 MCG CAPSULE PO SCH (07:57)
[2023-01-28] MEDS: MAGNESIUM OXIDE 400 MG TAB PO SCH ×2 (07:57→21:08)
[2023-01-28] MEDS: PANTOprazole 40 MG TAB PO SCH ×2 (07:57→21:08)
[2023-01-28] MEDS: DULoxetine HCL 60 MG CAP PO SCH (07:57)
[2023-01-28] MEDS: MONTELUKAST SODIUM 10 MG TABLET PO SCH (07:57)
[2023-01-28] MEDS: ASPIRIN 81 MG ECTAB PO SCH (07:58)
[2023-01-28] MEDS: carvediloL 6.25 MG TAB PO SCH ×2 (07:58→16:04)
[2023-01-28] MEDS: DICLOFENAC SOD 1% GEL 100 GM TUBE EXT SCH ×2 (07:58→11:02)
[2023-01-28] MEDS: FLUTICASONE/VILANTEROL 100/25MCG 14 PUFFS/INHALER INH SCH (07:58)
[2023-01-28 08:52] LABS: Basophils # (auto) 0.03 K/uL (0.00-0.20); Basophils % (auto) 0.4 %; Eosinophils # (auto) 0.05 K/uL (0.00-0.50); Eosinophils % (auto) 0.6 %; Hematocrit (blood only) 29.4 % (37.0-47.0); Hemoglobin 9.3 g/dl (12.0-16.0); Immature Granulocytes # (auto) 0.06 K/uL (0.01-0.20); Immature Granulocytes % (auto) 0.8 %; Lymphocytes # (auto) 0.86 K/uL (1.20-3.40); Lymphocytes % (auto) 10.8 %; Mean Corpuscular Hemoglobin 25.7 pg (25.0-34.0); Mean Corpuscular Hgb Conc 31.6 g/dL (32.0-36.0); Mean Corpuscular Volume 81.2 fL (80.0-100.0); Mean Platelet Volume 10.7 fL (9.4-12.4); Monocytes # (auto) 0.85 K/uL (0.11-0.59); Monocytes % (auto) 10.7 %; Neutrophils % (auto) 76.7 %; Platelet Count 338 K/uL (130-400); RDW Coefficient of Variation 17.4 % (11.5-14.5); RDW Standard Deviation 51.6 fL (36.4-46.3); Red Blood Count 3.62 M/uL (4.20-5.40); White Blood Count 7.95 K/ul (4.8-10.8)
[2023-01-28 09:28] LABS: BUN Creatinine Ratio 12.2 (10-20); Calcium 8.7 mg/dl (8.6-10.3); Creatinine Clr Calc Pharmacy 22.8 ml/min; Est GFR (African American) 18.4 ml/min; Est GFR (Non-African American) 15.9 ml/min; Magnesium 2.2 mg/dl (1.7-2.4); Potassium 5.3 mmol/L (3.5-5.1)
--- NOTE | 2023-01-28 11:12 | Hospitalist Progress Note ---
Date of Service January 28, 2023 Assessment & Plan (1) Acute kidney injury: (2) Pulmonary edema: (3) Status post placement of cardiac pacemaker: (4) Chronic kidney disease with active medical management without dialysis, stage 3 (moderate): (5) Tachy-lina syndrome: (6) Atrial fibrillation with RVR: (7) Non-ST elevation (NSTEMI) myocardial infarction: (8) Cardiomyopathy: (9) Elevated troponin: Plan 77 year old female w/ PMHx osteoarthritis, HTN, T2DM, CKD, mild persistent asthma,and paroxysmal atrial fibrillation on Eliquis was admitted for A fib w/ RVR. Diltiazem was trialed and, subsequently, amiodarone trialed to control atrial fibrillation, but patient developed tachycardia-bradycardia syndrome (sick sinus syndrome). To control this a pacemaker was placed 01/23 and has been functioning properly. Will order Ethacrynic acid 50mg PO as management due to sulfa allergy (contraindicates Lasix use). Acute Kidney Injury on top of CKD-stage 3 - Patient's baseline creatinine ~ 1.7 - 2.0 -Patient's creatinine went from 2.03 (01/25/23) to 2.99 (01/27/23) -Post NSTEMI/Cardiomyopathy there are concerns for cardiorenal syndrome -Creatinines: 2.89 (01/27/23: 4:30 pm) and 2.78 (01/28/23), trending lower. Will continue to trend via BMPs Elevated Troponin/NSTEMI/Cardiomyopathy On 01/23 after having pacemaker placed, the patient was c/o chest pain and troponins were ordered. Initially,, they were in the 500s, so repeat troponins were ordered for a few hours afterwards, which revealed an increase to 1500s. The next day (01/24) she did not c/o chest pain, but did feel diaphoretic and had some SOB and some numbness in her jaw/neck area. An EKG was done and showed no ischemic changes. Repeat troponin level that same day showed increase to 3400s. This increase may be associated to recent pacemaker, but possibility of this being related to cardiac ischemia cannot be ruled out. Cardiology was notified of this increase in troponin and of her symptoms in that morning. Later on in the day (01/24), she developed ventricular tachycardia, after having long QT intervals detected on telemetry and she became unconscious. She was noted to be significantly short of breath and diaphoretic. She denied having c hest pain and only c/o feeling sweaty. Cardiology arrived and the patient was advised that due to her increasing troponins and her current episode of ventricular tachycardia with syncope, the possibility of myocardial ischemia was likely and recommended to perform catheterization. She was given Aspirin and taken for catheterization today. Cardiac catheterization revealed no significant coronary artery obstruction. Nevertheless, she was started on anti-platelet therapy with Aspirin, and Carvedilol dose was increased to 18.75 mg PO BID. Amiodarone was discontinued. Will continue to monitor telemetry and for signs of myocardial ischemia. - Troponins no longer being followed, after exhibiting a decreasing trend (last at 1552 after peaking at 3462). - Patient no longer complaining of chest pain--no pleuritic chest pain, no MSK chest pain. Pulmonary edema - CXR on 01/25 showed small pleural effusions and pulm vasc congestion after an unremarkable CXR on 01/22 - Patient previously symptomatic with pleuritic chest pain (with deep inspiration in sternal area); pleuritic pain resolved now -Managed initially w/ Ethacrynic acid, 40 mg as needed, due to sulfa allergies --> Since d/c Paroxysmal A. fib with rapid ventricular response -Past history of paroxysmal A. fib diagnosed 3 years ago. -ECHO: Moderate to Severe reduced systolic function EF 30-35%, Global hypokinesis. Mild concentric left ventricular hyperthrophy, Moderate biatrial dilation (LV has decline compared to prior in 2020) -Given diltiazem 20mg IV in the ED with rates coming down thereafter. -Consulted cardiology, will appreciate recommendations. - Amiodarone IV started initially - discontinued on 01/24 after catheterization - Pacemaker was inserted (01/23) -Eliquis continued at 5mg, PO, BID until 01/28; currently held, recommendations from cardiology in preparation for ICD placement Global hypokinesis EF 30-35% -Probably due to current paroxysmal A.Fib -Patient denied SOB or chest pain -Cardiology recommendation: -Due to bradycardia, will not be cannot place her on appropriate heart failure medications. Hypertension Continue on nifedipine -spironolactone held for now, recommendation from cardiology Type 2 Diabetes -last A1C at 6.7, hold DM meds while in hospital -if glucose values get high, add on SSI - fasting glucose 217 on 01/28/23 --> Paula had already ordered carb consistent, heart healthy, low K+ diet from 01/23 - 01/29 Hypothyroidism Patient on levothyroxine, 137 mcg daily PO. Iron-deficiency anemia -patient mildly anemic, Hgb of 9.6, monitor w/ daily CBCs -supplemented with ferrous sulfate as needed GERD Patient currently on 40 mg pantoprazole, PO, BID to manage her GERD symptoms. Depression -continue duloxetine Psoriasis Patient currently on 5 mg PO prednisone -tried to wean in past, but pt had problems < 4mg Chronic anticoagulation Patient was on Eliquis, 5 mg, PO, BID --> held secondary to preparation for ICD placement F/E/N/GI: Heart Healthy DVT Prophylaxis: Heparin drip Code status: Full code. Dispo: PCU/tele. Admission and Anticipated Discharge Date Admission Date: January 20, 2023 Supervising Physician Co-Signing Physician Notes I personally examined the patient and verified ellis points of history and exam, discussed case, and agree with decision making and plan documented by Dr. Sullivan. Patient feeling well. Cardiology will upgrade of pacemaker to ICD tomorrow. Patient hopeful for discharge. Subjective Patient is a 77 yo F with a PMHx significant for SI joint arthritis, T2DM, HLD, esophageal spasm, peptic ulcer disease, psoriasis, depression/anxiety, CKD, and HTN. On hospital day 10, she is now post-pacemaker placement, post-NSTEMI, CXR showing small pleural effusions. She is sleeping better the last few nights. She denies chest pain, shortness of breath, lightheadedness, palpitations, or bleeding. Denies neck/jaw pain and abdominal pain. There is still some tenderness around the pacemaker insertion site. Patient is amenable to receiving the ICD before she is discharged. Review of Systems Review of Systems: As per HPI. Ear, Nose, Mouth, Throat: no ear pain, no facial pain and no TMJ pain Respiratory: no pain on inspiration Cardiovascular: no radiating jaw, neck or arm pain and no palpitations Gastrointestinal: no abdominal pain, no nausea and no vomiting Genitourinary: no urinary frequency and no urinary urgency Neurologic: no tingling, no numbness and no dizziness Psychiatric: AAOx4 Physical Exam Constitutional: WD/WN, vitals as above Respiratory: normal respiratory effort Cardiovascular: RRR, no murmur, no edema Palpation: normal PMI Extremities: normal capillary refill; no calf tenderness and no pedal edema Chest (Breasts): Chest: + pacemaker Gastrointestinal (Abdomen): normal bowel sounds, soft, nontender, no hepatosplenomegaly Inspection/Auscultation: abdomen normal to inspection and normal bowel sounds Percussion/Palpation: abdomen soft; no hepatosplenomegaly Musculoskeletal: Head/Neck/Chest: + chest tenderness (2/10 pain if pacemaker site touched) Results & Data Results & Data Vital Signs (Past 12 Hours) Vital Signs Temp Pulse Pulse Resp BP BP Pulse Ox 01/28/23 10:57 37.0 C 77 18 114/69 91 01/28/23 09:00 95 H 01/28/23 07:27 01/28/23 07:01 37.1 C 95 H 18 111/75 94 01/28/23 02:30 37 C 98 H 18 116/77 93 O2 Del Method 01/28/23 10:57 Room Air 01/28/23 09:00 01/28/23 07:27 Room Air 01/28/23 07:01 Room Air 01/28/23 02:30 Room Air
--- NOTE | 2023-01-28 20:35 | Cardiology Progress Note ---
Date of Service January 28, 2023 Assessment & Plan (1) Ventricular tachycardia: (2) Non-ST elevation (NSTEMI) myocardial infarction: (3) Tachy-lina syndrome: (4) Atrial fibrillation with RVR: (5) Cardiomyopathy: (6) Status post placement of cardiac pacemaker: (7) Hypertension: (8) Hyperlipidemia associated with type 2 diabetes mellitus: Plan ASSESSMENT/PLAN: 1. Ventricular tachycardia: No recurrence. Plan upgrade to ICD tomorrow 2. NSTEMI: Concern for small branch vessel occlusion (ramus versus high diagonal). Troponin elevation typical for ischemic event. No clear angina but diaphoretic episode with jaw numbness. No further such episodes. Aspirin 81 mg daily while hospitalized but can discontinue on discharge given no PCI and on long-term anticoagulation therapy. Continue beta-ankit. Statin therapy. 3. Cardiomyopathy: Nonischemic. Not likely tachycardia induced given that she monitors her heart rate with her smart phone. Carvedilol has been initiated following pacemaker placement on 01/23/2023. Received ethacrynic acid on 01/25/2023. Renal function slightly worsened today, also 48 hours after dye load. Volume stable. Will monitor renal function and re-initiate therapy when able 4. Atrial fibrillation/flutter: Paroxysmal. Mostly in AF now. Rates reasonable. Amiodarone discontinued 5. Tachybradycardia syndrome: Underwent pacemaker placement on 01/23/2023. Admission and Anticipated Discharge Date Admission Date: January 20, 2023 Subjective Patient feeling well. Ambulatory without much in the way of symptoms. Perhaps some fatigue and mild dyspnea. No palpitations. No chesrt pain. Review of Systems Review of Systems: Per HPI Physical Exam Physical Exam: Gen.: No acute distress. Alert. Cardiac: Irregular. No murmur Pulmonary: Normal respiratory effort Extremities: 2+ radial pulses bilaterally. 2+ posterior tibialis pulses bilaterally. Trace bilateral lower extremity edema. Results & Data Vital Signs (Past 12 Hours) Vital Signs Temp Pulse Pulse Resp BP Pulse Ox O2 Del Method 01/28/23 19:01 36.9 C 79 20 109/70 93 Room Air 01/28/23 15:19 37.2 C 95 H 22 126/83 92 Room Air 01/28/23 14:59 95 H 01/28/23 10:57 37.0 C 77 18 114/69 91 Room Air 01/28/23 09:00 95 H Laboratory Results Abnormal Lab Results 01/28/23 01/28/23 01/28/23 08:30 08:30 16:17 WBC 7.95 RBC 3.62 L Hgb 9.3 L Hct 29.4 L MCV 81.2 MCH 25.7 MCHC 31.6 L RDW Std Deviation 51.6 H RDW Coeff of Amrita 17.4 H Plt Count 338 MPV 10.7 Immature Gran % (Auto) 0.8 Neut % (Auto) 76.7 Lymph % (Auto) 10.8 Day % (Auto) 10.7 Eos % (Auto) 0.6 Baso % (Auto) 0.4 Neut # (Auto) 6.10 Lymph # (Auto) 0.86 L Day # (Auto) 0.85 H Eos # (Auto) 0.05 Baso # (Auto) 0.03 Immature Gran # (Auto) 0.06 Sodium 131 L Potassium 5.3 H Chloride 100 Carbon Dioxide 23 Anion Gap 8 BUN 34 H Creatinine 2.78 H Est Cr Clr Drug Dosing 22.8 Est GFR ( Amer) 18.4 Est GFR (Non-Af Amer) 15.9 BUN/Creatinine Ratio 12.2 Glucose 217 H POC Glucose 174 H Calcium 8.7 Magnesium 2.2 01/28/23 20:16 WBC RBC Hgb Hct MCV MCH MCHC RDW Std Deviation RDW Coeff of Amrita Plt Count MPV Immature Gran % (Auto) Neut % (Auto) Lymph % (Auto) Day % (Auto) Eos % (Auto) Baso % (Auto) Neut # (Auto) Lymph # (Auto) Day # (Auto) Eos # (Auto) Baso # (Auto) Immature Gran # (Auto) Sodium Potassium Chloride Carbon Dioxide Anion Gap BUN Creatinine Est Cr Clr Drug Dosing Est GFR ( Amer) Est GFR (Non-Af Amer) BUN/Creatinine Ratio Glucose POC Glucose 170 H Calcium Magnesium PG Care Time/CCT Total # of Minutes Spent Total Time Spent with Patient: Total time spent is greater than 50% in coordination of care (as documented) at patient's floor/unit and/or counseling patient: Coding Level of Care Code 39638 SUB INP/OBS CARE 2/35MIN Diagnoses Ventricular tachycardia I47.20 Non-ST elevation (NSTEMI) myocardial infarction I21.4 Tachy-lina syndrome I49.5 Atrial fibrillation with RVR I48.91 Cardiomyopathy I42.9 Status post placement of cardiac pacemaker Z95.0 Hypertension I10 Hyperlipidemia associated with type 2 diabetes mellitus E11.69; E78.5
[2023-01-28] MEDS: ATORVASTATIN 40 MG TAB PO SCH (21:07)
[2023-01-28] MEDS: predniSONE 5 MG TAB PO SCH (21:07)
[2023-01-29 05:54] LABS: Hematocrit (blood only) 28.9 % (37.0-47.0); Hemoglobin 9.1 g/dl (12.0-16.0); Mean Corpuscular Hemoglobin 25.8 pg (25.0-34.0); Mean Corpuscular Hgb Conc 31.5 g/dL (32.0-36.0); Mean Corpuscular Volume 81.9 fL (80.0-100.0); Mean Platelet Volume 10.8 fL (9.4-12.4); Platelet Count 382 K/uL (130-400); RDW Coefficient of Variation 17.7 % (11.5-14.5); RDW Standard Deviation 51.8 fL (36.4-46.3); Red Blood Count 3.53 M/uL (4.20-5.40); White Blood Count 7.63 K/ul (4.8-10.8)
[2023-01-29 06:00] LABS: BUN Creatinine Ratio 12.7 (10-20); Creatinine Clr Calc Pharmacy 24.5 ml/min; Est GFR (African American) 20.1 ml/min; Est GFR (Non-African American) 17.3 ml/min; Potassium 5.8 mmol/L (3.5-5.1)
[2023-01-29] MEDS: LEVOTHYROXINE SODIUM 137 MCG TABLET PO SCH (06:06)
--- NOTE | 2023-01-29 07:16 | Hospitalist Progress Note ---
Date of Service January 29, 2023 Assessment & Plan (1) Acute kidney injury: (2) Pulmonary edema: (3) Status post placement of cardiac pacemaker: (4) Chronic kidney disease with active medical management without dialysis, stage 3 (moderate): (5) Tachy-lina syndrome: (6) Atrial fibrillation with RVR: (7) Non-ST elevation (NSTEMI) myocardial infarction: (8) Cardiomyopathy: (9) Elevated troponin: Plan 77 year old female w/ PMHx osteoarthritis, HTN, T2DM, CKD, mild persistent asthma,and paroxysmal atrial fibrillation on Eliquis was admitted for A fib w/ RVR. Diltiazem was trialed and, subsequently, amiodarone trialed to control atrial fibrillation, but patient developed tachycardia-bradycardia syndrome (sick sinus syndrome). To control this a pacemaker was placed 01/23 and has been functioning properly. Acute Kidney Injury on top of CKD-stage 3 - Patient's baseline creatinine ~ 1.7 - 2.0 - Patient's creatinine went from 2.03 (01/25/23) to 2.99 (01/27/23) - Post NSTEMI/Cardiomyopathy there were concerns for cardiorenal syndrome - Creatinine continues to trend lower 2.89 (01/27/23), 2.78 (01/28/23), 2.59 (01/29/23) - Will continue to trend via BMPs Elevated Troponin/NSTEMI/Cardiomyopathy On 01/23 after having pacemaker placed, the patient was c/o chest pain and troponins were ordered. Initially,, they were in the 500s, so repeat troponins were ordered for a few hours afterwards, which revealed an increase to 1500s. The next day (01/24) she did not c/o chest pain, but did feel diaphoretic and had some SOB and some numbness in her jaw/neck area. An EKG was done and showed no ischemic changes. Repeat troponin level that same day showed increase to 3400s. This increase may be associated to recent pacemaker, but possibility of this being related to cardiac ischemia cannot be ruled out. Cardiology was notified of this increase in troponin and of her symptoms in that morning. Later on in the day (01/24), she developed ventricular tachycardia, after having long QT intervals detected on telemetry and she became unconscious. She was noted to be significantly short of breath and diaphoretic. She denied having chest pain and only c/o feeling sweaty. Cardiology arrived and the patient was advised that due to her increasing troponins and her current episode of ventricular tachycardia with syncope, the possibility of myocardial ischemia was likely and recommended to perform catheterization. She was given Aspirin and taken for catheterization today. Cardiac catheterization revealed no significant coronary artery obstruction. Nevertheless, she was started on anti-platelet therapy with Aspirin, and Carvedilol dose was increased to 18.75 mg PO BID. Amiodarone was discontinued. Will continue to monitor telemetry and for signs of myocardial ischemia. - Troponins no longer being followed, after exhibiting a decreasing trend (last at 1552 after peaking at 3462). - Patient no longer complaining of chest pain--no pleuritic chest pain, no MSK chest pain. Pulmonary edema - CXR on 01/25 showed small pleural effusions and pulm vasc congestion after an unremarkable CXR on 01/22 - Patient previously symptomatic with pleuritic chest pain (with deep inspiration in sternal area); pleuritic pain resolved now - Managed initially w/ Ethacrynic acid, 40 mg as needed, due to sulfa allergies --> Since d/c Paroxysmal A. fib with rapid ventricular response - Past history of paroxysmal A. fib diagnosed 3 years ago. - ECHO: Moderate to Severe reduced systolic function EF 30-35%, Global hypokinesis. Mild concentric left ventricular hyperthrophy, Moderate biatrial dilation (LV has decline compared to prior in 2020) - Given diltiazem 20mg IV in the ED with rates coming down thereafter. - Consulted cardiology, will appreciate recommendations. - Amiodarone IV started initially - discontinued on 01/24 after catheterization - Pacemaker was inserted (01/23) -Eliquis currently held, recommendations from cardiology for today's ICD placement; plan to resume post-procedure Global hypokinesis EF 30-35% -Probably due to current paroxysmal A.Fib -Patient denied SOB or chest pain -Cardiology recommendation: -Due to bradycardia, will not be cannot place her on appropriate heart failure medications. Hypertension Continue on nifedipine -spironolactone held for now, recommendation from cardiology Type 2 Diabetes - last A1C at 6.7, hold DM meds while in hospital - if glucose values get high, add on SSI - fasting glucose 166 on 01/29/23 --> Already on carb consistent, heart healthy, low K+ diet, ordered through 01/29/23 Hypothyroidism Patient on levothyroxine, 137 mcg daily PO. Iron-deficiency anemia -patient mildly anemic, Hgb of 9.1, monitor w/ daily CBCs -supplemented with ferrous sulfate as needed GERD Patient currently on 40 mg pantoprazole, PO, BID to manage her GERD symptoms. Depression -continue duloxetine Chronic anticoagulation Patient was on Eliquis, 5 mg, PO, BID --> currently held until post-ICD placement F/E/N/GI: Heart Healthy DVT Prophylaxis: Heparin drip Code status: Full code. Dispo: PCU/tele. Admission and Anticipated Discharge Date Admission Date: January 20, 2023 Supervising Physician Co-Signing Physician Notes I personally examined the patient and verified ellis points of history and exam, discussed case, and agree with decision making and plan documented by Dr. Sullivan. Examined patient following ICD placement today, she was feeling well, denied cardiac or pulmonary complaints, and is hopeful for discharge tomorrow. Patient appears comfortable, lungs clear b/l to auscultation, regular rate and rhythm, no acute distress, bandage applied to left upper anterior chest wall. VSS. Subjective Patient is a 77 yo F with a PMHx significant for SI joint arthritis, T2DM, HLD, esophageal spasm, peptic ulcer disease, psoriasis, depression/anxiety, CKD, and HTN. On hospital day 10, she is now post-pacemaker placement, post-NSTEMI, CXR showing small pleural effusions. She is sleeping better the last few nights. She continues to deny chest pain, shortness of breath, lightheadedness, palpitations, or bleeding. Denies neck/jaw pain and abdominal pain. Patient still endorses tenderness around the pacemaker insertion site. Patient is scheduled to have the ICD placement early this afternoon. Review of Systems Review of Systems: As per HPI. Ear, Nose, Mouth, Throat: no ear pain, no facial pain and no TMJ pain Respiratory: no pain on inspiration Cardiovascular: no radiating jaw, neck or arm pain and no palpitations Gastrointestinal: no abdominal pain, no nausea and no vomiting Genitourinary: no urinary frequency and no urinary urgency Neurologic: no tingling, no numbness and no dizziness Psychiatric: AAOx4 Physical Exam Constitutional: WD/WN, vitals as above Respiratory: normal respiratory effort Cardiovascular: RRR, no murmur, no edema Palpation: normal PMI Extremities: normal capillary refill; no calf tenderness and no pedal edema Chest (Breasts): Chest: + pacemaker Gastrointestinal (Abdomen): normal bowel sounds, soft, nontender, no hepatosplenomegaly Inspection/Auscultation: abdomen normal to inspection and normal bowel sounds Percussion/Palpation: abdomen soft; no hepatosplenomegaly Musculoskeletal: Head/Neck/Chest: + chest tenderness (2/10 pain if pacemaker site touched) Results & Data Results & Data Vital Signs (Past 12 Hours) Vital Signs Temp Pulse Pulse Resp BP Pulse Ox O2 Del Method 01/29/23 03:00 36.7 C 104 H 20 121/72 94 Room Air 01/28/23 22:50 83 01/28/23 22:35 36.5 C 90 20 132/81 94 Room Air 01/28/23 20:00 Room Air
[2023-01-29 07:52] LABS: Abnormal Protein Band 1 DNR mg/24 h; Abnormal Protein Band 2 DNR mg/24 h (NONE DETECTED); Abnormal Protein Band 3 DNR mg/24 h (NONE DETECTED); Interpretation DNR; Protein, Urine 24 Hour DNR mg/24 h; Ur Protein/Creatinine Rat mg/g DNR mg/g creat; Urine Protein/Creatinine Ratio DNR
--- NOTE | 2023-01-29 09:18 | Pre Anesthesia Assessment ---
Date of Service January 29, 2023 Pre Sedation Assessment Vital Signs Temp Pulse Pulse Resp BP BP Pulse Ox 01/29/23 07:46 97 H 01/29/23 07:30 36.7 C 110 H 16 118/63 97 01/29/23 03:00 36.7 C 104 H 20 121/72 94 01/28/23 22:50 83 01/28/23 22:35 36.5 C 90 20 132/81 94 01/28/23 20:00 01/28/23 19:01 36.9 C 79 20 109/70 93 01/28/23 15:19 37.2 C 95 H 22 126/83 92 01/28/23 14:59 95 H 01/28/23 10:57 37.0 C 77 18 114/69 91 O2 Del Method 01/29/23 07:46 01/29/23 07:30 Room Air 01/29/23 03:00 Room Air 01/28/23 22:50 01/28/23 22:35 Room Air 01/28/23 20:00 Room Air 01/28/23 19:01 Room Air 01/28/23 15:19 Room Air 01/28/23 14:59 01/28/23 10:57 Room Air Cardiovascular + regular rate and + irregularly irregular Respiratory + respiratory effort normal Pre-Sedation Airway Assessment Smoking Status: Never smoker Hx Sleep Apnea: No Hx Difficult Intubation: No Short, Thick Neck: No Thyromental Distance: > or= 3.5 Finger Breadths Oral Cavity: + Dental Abnormalities Mallampati Class: III ASA: ASA3 NPO Status Date of Last Intake of Fluids: 01/24/23 Time of Last Intake of Fluids: 13:00 Date of Last Intake of Solid Food: 01/24/23 Time of Last Intake of Solid Foods: 11:30 Procedure Planning Contraindications for Sedation: none Current Medications Reviewed: Yes Notes The planned sedation has been discussed with the patient. Informed Consent was obtained. I have identified the patient, determined the appropriateness of sedation and have assessed the patient immediately prior to the procedure. All medicine(s) and interventions are by my order.
[2023-01-29] MEDS ORDERED: BUPIVACAINE 0.25% PF 30 ML VIAL ONE (09:25)
[2023-01-29] MEDS ORDERED: VANCOMYCIN HCL 1000MG/20ML VIAL ONE (09:25)
[2023-01-29] MEDS ORDERED: LIDOCAINE 1% LOCAL 20 ML VIAL ONE (09:25)
[2023-01-29] MEDS ORDERED: WATER, STERILE FOR INJ 10 ML VIAL ONE (09:25)
[2023-01-29] MEDS ORDERED: CLINDAMYCIN 600 MG/D5W 50 ML BAG IV ONE (09:28)
[2023-01-29] MEDS ORDERED: fentaNYL citrate PF 100 MCG/2 ML VIAL ONE (09:41)
[2023-01-29] MEDS ORDERED: MIDAZOLAM HCL 5 MG/ML 1 ML VIAL ONE (09:41)
--- NOTE | 2023-01-29 11:40 | Electrophysiology Report ---
Date of Service January 29, 2023 Electrophysiology Procedure Electrophysiology Procedure Report Procedure performed: Upgrade of dual-chamber pacemaker to biventricular ICD. Staff supervising nurse: Lukasz Schilling MD Indication: The patient is a 77-year-old woman with a history of tachy-lina syndrome. She underwent implantation of a dual-chamber permanent pacemaker but subsequently suffered a VT arrest. She was advised to undergo upgrade of her device to an ICD for secondary prevention of sudden cardiac . Procedure detail: The patient was informed the risks benefits and alternatives to the intended procedure. She understood which proceed. She was taken to the [facility] in a fasting state. Preoperative antibiotic was administered. The patient was monitored electrocardiographically throughout today's procedure conscious sedation was administered per protocol. The area over the previously implanted device was anesthetized using subcutaneous menstruation of a lidocaine and Marcaine solution. Incision was made at this site and carried down the previously implanted pacemaker. PlasmaBlade was used for dissection and cautery. The previously implanted device and leads were then freed from the surrounding scar tissue. The pocket was enlarged in order to accommodate the new device. The left axillary vein was subsequently accessed twice using modified Seldinger technique. A sheath was placed over guidewire at this site used facilitate passage of the ICD lead the right ventricular apex under fluoroscopic guidance. Adequate sensing threshold parameters were obtained prior to active fixation of this lead to the endocardial surface. The proximal portion lead was then sutured to prepectoralis fascia using nonabsorbable suture. Due to poor function of the previously implanted septal ventricular lead, it was removed under fluoroscopic guidance. A sheath was placed over the remaining guidewire and used facilitate passage of the guiding catheter for mapping of the interventricular septum. Once an appropriate location was identified the pacing lead was subsequently advanced into the interventricular septum under fluoroscopic guidance. Adequate sensing and pacing parameters were then obtained prior to removal of the guiding catheter. The proximal portion of the guiding lead was then sutured to prepectoralis fascia using nonabsorbable suture. A device pocket was irrigated with an antibiotic solution. The leads were attached to the new device. The new device was enclosed in an antibiotic encapsulated M below prior to placement in the pocket. The pocket was subsequently closed in 3 layers absorbable suture. Steri-Strips and sterile dressing were applied. The patient tolerated procedure well. There were no immediate complications. Equipment used Explanted pulse generator: [employer] Kiip. Model number [id number] serial number [id number] New pulse generator: [employer] Medtronic model number [id number] serial number [id number] Retained right atrial lead: [employer] Medtronic model 5. 076 serial number [id number] Right ventricular ICD lead: [employer] Medtronic model 6. 935 mm serial number [id number] Explanted right ventricular lead: [employer] Medtronic. Model 3. 830 serial number [id number] New left bundle pacing lead: [employer] Medtronic model 3. 830 serial number [id number] Measured data Right atrial lead: Atrial fibrillation. P waves 1.1 mV. No pacing threshold. Pacing impedance 380 Ohms Right ventricular lead: R-waves measured 7.8 mV. Pacing threshold 1 volts at 0.4 milliseconds with a pacing impedance of 456 Ohms Left bundle pacing lead: Pacing threshold 0.5 volts at 0.4 milliseconds with a pacing impedance of 646 Ohms Impression: Successful upgrade of dual-chamber pacemaker to biventricular ICD. Lead revision of left bundle pacing lead MNP Electrophysiology codes Pacing Procedure 1: Pacin Insert permanent lead, single Procedure 2: Pacin Removal perm single lead ICD Procedure 1: ICD: 90645 Insert single or dual ICD system PG Moderate Sedation Codes Moderate Sedation Codes Procedure 1: Sedation/Anesthesia: 17148 Mod Sedation by the same physician;Init15 Min Child Age 5 & Up Procedure 2: Sedation/Anesthesia: 06753 Mod Sedation by the same physician; Ea [id number] Minutes
--- NOTE | 2023-01-29 11:40 | Post Anesthesia Assessment ---
Date of Service January 29, 2023 Post Sedation Assessment Vital Signs Temp Pulse Pulse Pulse Resp BP BP 01/29/23 09:20 36.7 C 99 H 16 132/89 01/29/23 07:46 97 H 01/29/23 07:30 36.7 C 110 H 16 118/63 01/29/23 03:00 36.7 C 104 H 20 121/72 01/28/23 22:50 83 01/28/23 22:35 36.5 C 90 20 132/81 01/28/23 20:00 01/28/23 19:01 36.9 C 79 20 109/70 01/28/23 15:19 37.2 C 95 H 22 126/83 01/28/23 14:59 95 H Pulse Ox O2 Del Method 01/29/23 09:20 95 Room Air 01/29/23 07:46 01/29/23 07:30 97 Room Air 01/29/23 03:00 94 Room Air 01/28/23 22:50 01/28/23 22:35 94 Room Air 01/28/23 20:00 Room Air 01/28/23 19:01 93 Room Air 01/28/23 15:19 92 Room Air 01/28/23 14:59 Recovery Score Activity: Moves 4 extremities Respiration: Deep Breath/Cough Circulation: +/-20% PreAnes Value Consciousness: Fully Awake Oxygen Saturation: > 92% On Room Air Post Anesthesia Score: 10 Discharge Sedation Level of Care: Fast Track Phase II Post Sedation Plan On clinical assessment, the patient appears to have tolerated the sedation without complications. Patient is recovering as anticipated. Patient will continue to be monitored by nursing and may be discharged when sedation discharge criteria are met per below protocol. Upon Completions of procedure up to 15 minutes continue every 5 minute vital signs and the P.A.R. score; then discharge to a Phase I or Fast Track to Phase II per the following guidelines: * Discharge Patient to appropriate Phase II area if PAR is 8 or greater or return to pre- procedure baseline. The post - procedure orders will be as directed. * If PAR score is less than 8 or not return to pre-procedure baseline then patient will follow Phase I monitoring till PAR is reached for Phase II. The Phase I may be done in procedure room or may call to secure a Phase I area. * If naloxone or flumazenil are used for reversal, hold in Phase I for continued monitoring from when last reversal dose was given for a minimum of 60 minutes or longer pending the nurse and/or physician discretion of patient condition before discharge to Phase II. Please call the Sedation Physician to re-evaluate and complete post-note for discharge to Phase II area. Do NOT discharge from procedure sedation or Phase 1 until post- sedation evaluation note is complete by procedure /sedation MD Sedation Discharge Instructions to be given to the patient at discharge to home.
[2023-01-29] MEDS: DULoxetine HCL 60 MG CAP PO SCH (12:36)
[2023-01-29] MEDS: MONTELUKAST SODIUM 10 MG TABLET PO SCH (12:37)
[2023-01-29] MEDS: CALCITRIOL 0.25 MCG CAPSULE PO SCH (12:37)
[2023-01-29] MEDS: MAGNESIUM OXIDE 400 MG TAB PO SCH ×2 (12:37→21:20)
[2023-01-29] MEDS: ASPIRIN 81 MG ECTAB PO SCH (12:38)
[2023-01-29] MEDS: carvediloL 6.25 MG TAB PO SCH ×2 (12:38→17:50)
[2023-01-29] MEDS: NITROGLYCERIN 0.4 MG/HR PATCH TD SCH (12:39)
[2023-01-29] MEDS: FLUTICASONE/VILANTEROL 100/25MCG 14 PUFFS/INHALER INH SCH (12:39)
[2023-01-29] MEDS: PANTOprazole 40 MG TAB PO SCH ×2 (12:39→21:20)
[2023-01-29] MEDS ORDERED: CLINDAMYCIN/D5W 600 MG/50 ML BAG IV ONE (18:00)
--- NOTE | 2023-01-29 18:31 | Cardiology Progress Note ---
Date of Service January 29, 2023 Assessment & Plan (1) Ventricular tachycardia: (2) Non-ST elevation (NSTEMI) myocardial infarction: (3) Tachy-lina syndrome: (4) Atrial fibrillation with RVR: (5) Cardiomyopathy: (6) Status post placement of cardiac pacemaker: (7) Hypertension: (8) Hyperlipidemia associated with type 2 diabetes mellitus: Plan ASSESSMENT/PLAN: 1. Ventricular tachycardia: Upgrade to ICD and right ventricular pacing lead revision performed today. No immediate complication. Will interrogate the device and obtain an x-ray in the morning. If she is otherwise feeling well she could conceivably be discharged at that time. 2. NSTEMI: Concern for small branch vessel occlusion (ramus versus high diagonal). Troponin elevation typical for ischemic event. No clear angina but diaphoretic episode with jaw numbness. No further such episodes. Aspirin 81 mg daily while hospitalized but can discontinue on discharge given no PCI and on long-term anticoagulation therapy. Continue beta-ankit. Statin therapy. 3. Cardiomyopathy: Nonischemic. Can likely increase carvedilol 25 mg twice daily tomorrow. Reinstitute spironolactone, Jardiance and start Entresto when renal function normalizes. 4. Atrial fibrillation/flutter: Paroxysmal. Mostly in AF now. Rates improved with carvedilol. Will consider read addition of amiodarone for sinus rhythm. 5. Tachybradycardia syndrome: Underwent pacemaker placement on 01/23/2023. Upgrade to ICD today. Admission and Anticipated Discharge Date Admission Date: January 20, 2023 Subjective This afternoon she claimed he feeling well. She has some discomfort at the device implant site. She has not ambulated yet today. She ate her dinner. No abdominal complaints. No sense of palpitation. No dizziness. No breathing difficulty. Review of Systems Review of Systems: Per HPI Physical Exam Physical Exam: Gen.: No acute distress. Alert. Cardiac: Irregular. No murmur Pulmonary: Normal respiratory effort Chest: Device implant site bandage. No hematoma Extremities: 2+ radial pulses bilaterally. 2+ posterior tibialis pulses bilaterally. Trace bilateral lower extremity edema. Results & Data Vital Signs (Past 12 Hours) Vital Signs Temp Pulse Pulse Pulse Resp BP BP 01/29/23 08:00 01/29/23 16:00 36.8 C 96 H 18 135/66 01/29/23 16:14 99 H 01/29/23 12:00 89 01/29/23 12:51 36.7 C 105 H 18 141/68 H 01/29/23 12:36 36.7 C 112 H 20 150/94 H 01/29/23 12:21 36.6 C 97 H 16 135/85 01/29/23 11:45 70 16 147/99 H 01/29/23 09:20 36.7 C 99 H 16 132/89 01/29/23 07:46 97 H 01/29/23 07:30 36.7 C 110 H 16 118/63 Pulse Ox O2 Del Method 01/29/23 08:00 Room Air 01/29/23 16:00 97 Room Air 01/29/23 16:14 01/29/23 12:00 01/29/23 12:51 96 Room Air 01/29/23 12:36 95 Room Air 01/29/23 12:21 97 Room Air 01/29/23 11:45 96 Room Air 01/29/23 09:20 95 Room Air 01/29/23 07:46 01/29/23 07:30 97 Room Air Laboratory Results Abnormal Lab Results 01/27/23 01/28/23 01/29/23 Unknown 20:16 05:27 WBC 7.63 RBC 3.53 L Hgb 9.1 L Hct 28.9 L MCV 81.9 MCH 25.8 MCHC 31.5 L RDW Std Deviation 51.8 H RDW Coeff of Amrita 17.7 H Plt Count 382 MPV 10.8 Sodium Potassium Chloride Carbon Dioxide Anion Gap BUN Creatinine Est Cr Clr Drug Dosing Est GFR ( Amer) Est GFR (Non-Af Amer) BUN/Creatinine Ratio Glucose POC Glucose 170 H Calcium Ur Creatinine 24 Hour TNP Ur Total Protein 24 Hr DNR Protein/Creat Ratio 24h DNR Urine Albumin (%) TNP U Nkqgs-7-Fksxkbmv (%) DNR U Ezgzj-2-Msluukbp (%) DNR U Beta Globulin (%) DNR U Gamma Globulin (%) DNR U Abnormal Prot Band 1 DNR U Abnormal Prot Band 2 DNR U Abnormal Prot Band 3 DNR Urine PEP Interpret DNR Urine Immunofixation TNP 01/29/23 01/29/23 01/29/23 05:27 07:39 12:29 WBC RBC Hgb Hct MCV MCH MCHC RDW Std Deviation RDW Coeff of Amrita Plt Count MPV Sodium 134 L Potassium 5.8 H Chloride 103 Carbon Dioxide 23 Anion Gap 8 BUN 33 H Creatinine 2.59 H Est Cr Clr Drug Dosing 24.5 Est GFR ( Amer) 20.1 Est GFR (Non-Af Amer) 17.3 BUN/Creatinine Ratio 12.7 Glucose 166 H POC Glucose 196 H 132 H Calcium 9.0 Ur Creatinine 24 Hour Ur Total Protein 24 Hr Protein/Creat Ratio 24h Urine Albumin (%) U Jinzq-6-Qjadjwoy (%) U Siqia-2-Sjrfhlbw (%) U Beta Globulin (%) U Gamma Globulin (%) U Abnormal Prot Band 1 U Abnormal Prot Band 2 U Abnormal Prot Band 3 Urine PEP Interpret Urine Immunofixation 01/29/23 16:17 WBC RBC Hgb Hct MCV MCH MCHC RDW Std Deviation RDW Coeff of Amrita Plt Count MPV Sodium Potassium Chloride Carbon Dioxide Anion Gap BUN Creatinine Est Cr Clr Drug Dosing Est GFR ( Amer) Est GFR (Non-Af Amer) BUN/Creatinine Ratio Glucose POC Glucose 169 H Calcium Ur Creatinine 24 Hour Ur Total Protein 24 Hr Protein/Creat Ratio 24h Urine Albumin (%) U Mntys-0-Geqfnqzj (%) U Ifdyf-3-Gydjvgag (%) U Beta Globulin (%) U Gamma Globulin (%) U Abnormal Prot Band 1 U Abnormal Prot Band 2 U Abnormal Prot Band 3 Urine PEP Interpret Urine Immunofixation
--- NOTE | 2023-01-29 19:00 | Electrocardiogram Report ---
Test Reason : Blood Pressure : / mmHG Vent. Rate : 071 BPM Atrial Rate : 000 BPM P-R Int : 000 ms QRS Dur : 108 ms QT Int : 378 ms P-R-T Axes : 000 003 084 degrees QTc Int : 410 ms Atrial fibrillation with frequent ventricular-paced complexes Nonspecific T wave abnormality Abnormal ECG When compared with ECG of 25-JAN-2023 08:04, Electronic ventricular pacemaker has replaced Electronic atrial pacemaker Confirmed by Lukasz Shcilling ([id number]) on 01/29/2023 6:59:43 PM Referred By: REFERRED SELF Confirmed By:Jorge Schilling
[2023-01-29] MEDS: predniSONE 5 MG TAB PO SCH (21:19)
[2023-01-29] MEDS: ATORVASTATIN 40 MG TAB PO SCH (21:19)
[2023-01-29] MEDS: ACETAMINOPHEN 325 MG TAB PO PRN (23:44)
[2023-01-30] MEDS: LEVOTHYROXINE SODIUM 137 MCG TABLET PO SCH (06:15)
--- NOTE | 2023-01-30 07:06 | XRay Report ---
XR chest 2V PA/lateral CLINICAL HISTORY: EXACT TIME ORDERED Evaluate for pneumothorax and l TECHNIQUE: 2 views of the chest were obtained. Comparison: Comparison is made to chest radiograph 01/25/2023 FINDINGS: Interval placement of a defibrillator lead. Cardiomegaly is noted. The lungs are clear. Small bilater al pleural effusions are seen. IMPRESSION: 1. No evidence of pneumothorax status post lead placement. 2. Trace bilateral pleural effusions. ACT 112: Negative or not required by law. Electronically signed by: José Miguel Hernandes M.D. 01/30/2023 7:05 AM
[2023-01-30 07:32] LABS: BUN Creatinine Ratio 15.7 (10-20); Calcium 8.7 mg/dl (8.6-10.3); Creatinine Clr Calc Pharmacy 26.9 ml/min; Est GFR (African American) 22.6 ml/min; Est GFR (Non-African American) 19.5 ml/min
[2023-01-30 07:40] LABS: Hematocrit (blood only) 29.3 % (37.0-47.0); Hemoglobin 9.7 g/dl (12.0-16.0); Mean Corpuscular Hemoglobin 26.1 pg (25.0-34.0); Mean Corpuscular Hgb Conc 33.1 g/dL (32.0-36.0); Mean Platelet Volume 10.5 fL (9.4-12.4); Platelet Count 406 K/uL (130-400); RDW Coefficient of Variation 17.8 % (11.5-14.5); RDW Standard Deviation 51.3 fL (36.4-46.3); Red Blood Count 3.71 M/uL (4.20-5.40); White Blood Count 7.09 K/ul (4.8-10.8)
--- NOTE | 2023-01-30 08:48 | Discharge Summary ---
Date of Service January 30, 2023 Admission HPI Per Admitting Provider Mike is a 77 year old female w/ PmHx osteoarthritis, HTN, T2DM, CKD, mild persistent asthma, allergic rhinitis, sialoadenitis, paroxysmal atrial fibrillation on eliquis coming in for persistent atrial fibrillation. Patient states that last night she was getting up to go to the bathroom when she had felt a little short of breath. Her fitbit had told her the heart rate was elevated and irregular. She contacted the cardiology office this morning and they performed an EKG which showed A. fib with RVR and she was instructed to go to the ED if it persisted past 24 hours. She states that she was unsure if it was atrial fibrillation at first since she has a history of asthma. Her history of atrial fibrillation goes back to December of 2019 when she was having hip surgery and it was spotted on routine monitoring. She states whenever she gets atrial fibrillation it usually lasts for a short period of time such as 30 minutes to a few hours. She is usually able to tell this from her fitbit since the high heart rates are not generally accompanied by symptoms. She denies any recent fevers, chills, diarrhea, constipation, headaches, cough, shortness of breath currently, chest pain, congestion. She was not doing anything physically exerting when the onset happened, she says just walking to the bathroom. In the ED she was found to be in A fib with RVR. She was given a dose of diltiazem 20mg IV with heart rates trending down. Potassium 3.6, magnesium 2.2, TSH 1.980. Admission Exam Per Admitting Provider Constitutional: WD/WN, vitals as above Eyes: PERRL, conjunctivae normal, anicteric sclerae Respiratory: normal respiratory effort, lungs clear to auscultation Cardiovascular: Rate/Rhythm: + irregularly irregular Heart Sounds: normal S1 and normal S2 No edema Gastrointestinal (Abdomen): normal bowel sounds, soft, nontender, no hepatosplenomegaly Psychiatric: A+Ox3, euthymic affect Principal Diagnosis Atrial fibrillation with rapid ventricular response NSTEMI Discharge Exam Constitutional WD/WN, vitals as above Respiratory normal respiratory effort Cardiovascular RRR, no murmur, no edema Palpation: normal PMI Extremities: normal capillary refill; no calf tenderness and no pedal edema Chest (Breasts) Chest: + pacemaker Gastrointestinal (Abdomen) normal bowel sounds, soft, nontender, no hepatosplenomegaly Inspection/Auscultation: abdomen normal to inspection and normal bowel sounds Percussion/Palpation: abdomen soft; no hepatosplenomegaly Musculoskeletal Head/Neck/Chest: + chest tenderness (2/10 pain if pacemaker site touched) Discharge Data Allergies Allergy/AdvReac Type Severity Reaction Status Date / Time codeine Allergy Severe Anaphylaxis Verified 01/20/23 21:22 celecoxib [From Celebrex] Allergy Intermediate RASH Verified 01/20/23 21:22 cephalexin [From Keflex] Allergy Intermediate Rash Verified 01/20/23 21:22 hydrocodone Allergy Intermediate Rash Verified 01/20/23 21:22 Iodinated Contrast Media Allergy Intermediate RASH Verified 01/20/23 21:22 nickel Allergy Intermediate Rash Verified 01/20/23 21:22 oxycodone Allergy Intermediate Rash Verified 01/20/23 21:22 Sulfa (Sulfonamide Allergy Intermediate RASH TO Verified 01/20/23 21:22 Antibiotics) SULFA DRUGS tetracycline Allergy Intermediate RASH Verified 01/20/23 21:22 capsaicin AdvReac Intermediate CREATINE Verified 01/20/23 21:23 ELEVATION diclofenac AdvReac Intermediate CREATINE Verified 01/20/23 21:23 ELEVATION propylene glycol AdvReac Intermediate CREATINE Verified 01/20/23 21:23 ELEVATION "PREP WITH BLUE DYE" Allergy Intermediate Rash Uncoded 01/20/23 21:22 Consultations 01/20/23 21:10 ED Decision to Admit Stat 01/21/23 01:06 Consult Cardiology Routine Procedures Performed Operation Date: 01/29/23 09:30 Actual Procedures s ICD Gen Change Multiple - Lukasz Schilling MD s Lead, Extraction Single Pacing - Lukasz Schilling MD s Insertion Single Lead Only - Lukasz Schilling MD p Insertion ICD w/Existing Mult - Lukasz Schilling MD Ordered Studies 01/23/23 06:45 EP Lab Images for PACS ONCE 01/24/23 13:04 CL Cath Imgs for PACS use only Stat 01/29/23 09:45 EP Lab Images for PACS ONCE Hospital Course (1) Acute kidney injury: (2) Pulmonary edema: (3) Status post placement of cardiac pacemaker: (4) Chronic kidney disease with active medical management without dialysis, stage 3 (moderate): (5) Tachy-lina syndrome: (6) Atrial fibrillation with RVR: (7) Non-ST elevation (NSTEMI) myocardial infarction: (8) Cardiomyopathy: (9) Elevated troponin: Plan JULIO--> advise re-check of creatinine 1-2 wks after discharge with pcp 77 year old female w/ PMHx osteoarthritis, HTN, T2DM, CKD, mild persistent asthma,and paroxysmal atrial fibrillation on Eliquis was admitted for A fib w/ RVR. Diltiazem was trialed and, subsequently, amiodarone trialed to control atrial fibrillation, but patient developed tachycardia-bradycardia syndrome (sick sinus syndrome). To control this a pacemaker was placed 01/23 and has been functioning properly. Acute Kidney Injury on top of CKD-stage 3 - Patient's baseline creatinine ~ 1.7 - 2.0 - Creatinine trended lower after (01/27/23): 2.99 --> 2.78 --> 2.35 - Patient should F/U with her PCP in 1-2 weeks, get a BMP F/U before appt Elevated Troponin/NSTEMI/Cardiomyopathy On 01/23 after pacemaker placed, patient c/o chest pain and troponins peaked at 3400, with an EKG w/out ischemic changes.. Initially,, they were in the 500s, so repeat troponins were ordered for a few hours afterwards, which revealed an increase to 1500s. Later on in the day (01/24), she developed ventricular tachycardia, after having long QT intervals detected on telemetry and she became unconscious. She was noted to be significantly short of breath and diaphoretic. She denied having chest pain and only c/o feeling sweaty. Cardiology arrived and the patient was advised that due to her increasing troponins and her current episode of v entricular tachycardia with syncope. Cardiac catheterization revealed no significant coronary artery obstruction. Nevertheless, she was started on anti- platelet therapy with Aspirin, and Carvedilol dose was increased to 18.75 mg PO BID. Amiodarone was discontinued. - Last troponins was 1552. - Patient no longer complaining of chest pain--no pleuritic chest pain, no MSK chest pain. - 01/30 showed trace pleural effusions, no evidence of pneumothorax post-ICD placement Paroxysmal A. fib with rapid ventricular response/Global hypokinesis - Past history of paroxysmal A. fib diagnosed 3 years ago. - ECHO: Moderate to Severe reduced systolic function EF 30-35%, Global hypokinesis. Mild concentric left ventricular hypertrophy, Moderate biatrial dilation (LV has decline compared to prior in 2020) - Given diltiazem 20mg IV in the ED with rates coming down thereafter. - Consulted cardiology, will appreciate recommendations. - Amiodarone IV started initially - discontinued on 01/24 after catheterization - Pacemaker was inserted (01/23) -Eliquis currently held, recommendations from cardiology for today's ICD placement - Resume Eliquis -Cardiology recommendation: -Due to bradycardia, cannot be placed on recommended B-ankit Hypertension Continue on nifedipine -spironolactone held for now, recommendation from cardiology --> Type 2 Diabetes - last A1C at 6.7, hold DM meds while in hospital --> resume home diab meds: Hypothyroidism Patient on levothyroxine, 137 mcg daily PO. Iron-deficiency anemia -patient mildly anemic, Hgb of ____ monitor w/ daily CBCs -supplemented with ferrous sulfate GERD Patient currently on 40 mg pantoprazole, PO, BID to manage her GERD symptoms. Depression -continue duloxetine Chronic anticoagulation Patient was on Eliquis, 5 mg, PO, BID --> currently held until post-ICD placement Discharge Plan Discharge Items Patient Disposition: Home - Self-Care Reason For Visit: AFIB RVR Discharge Diagnosis: Atrial fibrillation w/ RVR NSTEMI Activity: Per Instructions section Follow-up/Referrals: Jigna Jovel DO [Primary Care Provider] - Addtl Attending Provider Instructions: ACTIVITY RECOMMENDATIONS: * Do not raise affected arm over head for 2 weeks. SPECIAL CARE INSTRUCTIONS: * If bleeding occurs, apply direct pressure to area for 5 minutes. * Call your doctor if you have severe pain, fever, drainage or bleeding at site. * Keep dressing on and dry for 48 hours then remove. * Keep any scheduled doctor's appointment. * Implant Card - hand held device with website information given. SKIN IRRITATION: * You may experience some redness and/or swelling in the area where radiation was administered. If any skin irritation occurs, please contact your family physician. FOLLOW UP VISIT: Keep any scheduled doctor appointments. Stand-Alone Forms: [employer], Smoking Cessation Medications and DC Order Prescriptions: No Action prednisone 5 mg tablet 5 mg PO HS Qty: 90 3RF nifedipine 90 mg tablet extended release 90 mg PO HS Qty: 90 3RF duloxetine [Cymbalta] 60 mg capsule,delayed release(DR/EC) 60 mg PO QAM Qty: 90 3RF spironolactone [Aldactone] 25 mg tablet 25 mg PO BID Qty: 180 2RF levothyroxine 137 mcg capsule 137 mcg PO DAILY Qty: 90 3RF azelastine 137 mcg (0.1 %) aerosol,spray 2 spray INTRANASAL DAILY PRN (Reason: ALLERGIES) Qty: 30 0RF (DME) Accu-Chek Garima Plus test strp Strip See Rx Instructions .ROUTE .MEDSUPPLY Qty: 100 3RF Rx Instructions: Check blood sugars once PRN potassium chloride [Klor-Con M20] 20 mEq tablet,ER particles/crystals 20 meq PO QAM Qty: 90 3RF Eliquis 5 mg tablet 5 mg PO BID Qty: 180 3RF montelukast [Singulair] 10 mg tablet 10 mg PO DAILY Qty: 90 3RF (DME) blood-glucose meter [Accu-Chek Garima Plus Meter] Misc See Rx Instructions .ROUTE .MEDSUPPLY Rx Instructions: Used to check blood sugars once PRN nitroglycerin [Nitro-Dur] 0.4 mg/hr patch 24 hour 1 patch TRANSDERMAL QAM Qty: 90 3RF Rx Instructions: remove after 12 hours Jardiance 10 mg tablet 10 mg PO DAILY Qty: 90 3RF Rx Instructions: Take one tablet once daily by mouth. cholestyramine (with sugar) 4 gram powder 4 ea PO DIRECTED PRN (Reason: NEEDED PER PT.) albuterol sulfate 90 mcg/actuation HFA aerosol inhaler 2 puff inhalation Q6H PRN (Reason: shortness of breath or wheezing) Qty: 8.5 2RF budesonide-formoterol [Symbicort] 80-4.5 mcg/actuation HFA aerosol inhaler 2 puff inhalation BID Qty: 3 3RF calcitriol 0.5 mcg capsule 0.5 mcg PO DAILY Qty: 90 3RF cetirizine [Zyrtec] 10 mg Tablet 10 mg PO HS betamethasone valerate 0.1 % cream 1 applic TOPICAL UD PRN (Reason: PSORIASIS ) Rx Instructions: Apply to areas of the arms twice daily for up to 2 weeks as needed for f laring. omega 8-azv-nqa-fish oil [Fish Oil] 1,000 mg (120 mg-180 mg) Capsule 1,000 mg PO BID magnesium oxide 400 mg magnesium Tablet 400 mg PO BID levalbuterol HCl [Xopenex] 0.63 mg/3 mL Solution For Nebulization 0.63 mg INHALATION Q4H PRN (Reason: Cough) acetaminophen [Tylenol Arthritis Pain] 650 mg Tablet Extended Release 1,300 mg PO BID Trulicity 0.75 mg/0.5 mL pen injector 0.75 mg subcut WK Rx Instructions: THURSDAYS Inject once weekly into the abdomen. Admission Data Admit Date/Time: 01/20/23 21:54 Attending Provider: Lukasz Philippe Admit Provider: Riley Avendaño Primary Care Provider: Jigna Jovel Other Providers: Yoel Pelaez ; Jarocho Herrera ; Kirk Ca
[2023-01-30 09:37] LABS: Albumin 2.9 g/dL (3.8-4.8); Alpha 1 Globulin 0.6 g/dL (0.2-0.3); Alpha 2 Globulin 0.9 g/dL (0.5-0.9); Angiotensin Converting Enzyme 22 U/L (9-67); Beta-1-Globulin 0.3 g/dL (0.4-0.6); Beta-2-Globulin 0.3 g/dL (0.2-0.5); Gamma Globulin 1.6 g/dL (0.8-1.7); Monoclonal Protein Band 1 1.5 g/dL (NONE DETECTED); Monoclonal Protein Band 2 DNR g/dL (NONE DETECTED); Monoclonal Protein Band 3 DNR g/dL (NONE DETECTED); Total Protein 6.7 g/dL (6.1-8.1)
[2023-01-30] MEDS: ASPIRIN 81 MG ECTAB PO SCH (09:43)
[2023-01-30] MEDS: MAGNESIUM OXIDE 400 MG TAB PO SCH ×2 (09:43→20:05)
[2023-01-30] MEDS: PANTOprazole 40 MG TAB PO SCH ×2 (09:43→20:05)
[2023-01-30] MEDS: carvediloL 6.25 MG TAB PO SCH (09:43)
[2023-01-30] MEDS: FLUTICASONE/VILANTEROL 100/25MCG 14 PUFFS/INHALER INH SCH (09:44)
[2023-01-30] MEDS: MONTELUKAST SODIUM 10 MG TABLET PO SCH (09:44)
[2023-01-30] MEDS: CALCITRIOL 0.25 MCG CAPSULE PO SCH (09:44)
[2023-01-30] MEDS: NITROGLYCERIN 0.4 MG/HR PATCH TD SCH (09:45)
[2023-01-30] MEDS: DULoxetine HCL 60 MG CAP PO SCH (09:45)
[2023-01-30] MEDS ORDERED: METOPROLOL TARTRATE 25 MG TAB PO ONE (10:42)
--- NOTE | 2023-01-30 15:46 | Hospitalist Progress Note ---
Date of Service January 30, 2023 Assessment & Plan (1) Acute kidney injury: (2) Pulmonary edema: (3) Status post placement of cardiac pacemaker: (4) Chronic kidney disease with active medical management without dialysis, stage 3 (moderate): (5) Tachy-lina syndrome: (6) Atrial fibrillation with RVR: (7) Non-ST elevation (NSTEMI) myocardial infarction: (8) Cardiomyopathy: (9) Elevated troponin: Plan 77 year old female w/ PMHx osteoarthritis, HTN, T2DM, CKD, mild persistent asthma,and paroxysmal atrial fibrillation on Eliquis was admitted for A fib w/ RVR. Diltiazem was trialed and, subsequently, amiodarone trialed to control atrial fibrillation, but patient developed tachycardia-bradycardia syndrome (sick sinus syndrome). To control this a pacemaker was placed 01/23 and has been functioning properly. Acute Kidney Injury on top of CKD-stage 3 - Patient's baseline creatinine ~ 1.7 - 2.0 - Post NSTEMI/Cardiomyopathy there were concerns for cardiorenal syndrome - Creatinine continues to trend lower: 2.99 --> 2.78 --> 2.35 - Will continue to trend via BMPs Elevated Troponin/NSTEMI/Cardiomyopathy/Pulmonary edema On 01/23 after pacemaker placed, patient c/o'ed of chest pain and troponins ordered. Peaked in 3400s. An EKG showed no ischemic changes. Later (01/24), she developed ventricular tachycardia, after long QT intervals detected on telemetry, became unconscious. She was given Aspirin and taken for catheterization. Cardiac catheterization revealed no significant coronary artery obstruction. Nevertheless, she was started on anti-platelet therapy with Aspirin, and Carvedilol dose was increased to 18.75 mg PO BID. Amiodarone was discontinued. Will continue to monitor telemetry. - Last troponin 1552 - Patient no longer complaining of chest pain--no pleuritic chest pain, no MSK chest pain. Paroxysmal A. fib with rapid ventricular response/Global hypokinesis - Past history of paroxysmal A. fib diagnosed 3 years ago. - ECHO: Moderate to Severe reduced systolic function EF 30-35%, Global hypokinesis. Mild concentric left ventricular hypertrophy, Moderate biatrial dilation (LV has decline compared to prior in 2020) -Eliquis currently held, recommendations from cardiology for today's ICD placement; plan to resume post-procedure -Cardiology recommendation: -Due to bradycardia, patient cannot be placed on a B-ankit Hypertension Continue on nifedipine -spironolactone can be re-started, recommendation from cardiology Type 2 Diabetes - last A1C at 6.7, hold DM meds while in hospital - if glucose values get high, add on SSI - Still on carb consistent, heart healthy, low K+ diet, ordered through 01/29/23 Hypothyroidism Patient on levothyroxine, 137 mcg daily PO. Iron-deficiency anemia -patient mildly anemic, Hgb of 9.7, monitor w/ daily CBCs -supplemented with ferrous sulfate as needed GERD Patient currently on 40 mg pantoprazole, PO, BID to manage her GERD symptoms. Depression -continue duloxetine Chronic anticoagulation Patient was on Eliquis, 5 mg, PO, BID --> cardiology recommends re-starting on 01/31/23 evening Admission and Anticipated Discharge Date Admission Date: January 20, 2023 Supervising Physician Co-Signing Physician Notes Attending attestation Pt seen and examined in concert with Dr. Sullivan. In agreement with the documented findings as noted in the resident documentation with any exceptions or additions as noted here. Resting comfortably in bed. Complains of ongoing SOBOE but improved from previous. Mild aching pain at operative site without need for pain control. On examination, S1/S2 nl IRR no MCG. CTAB. Abd NT/ND BS+ve NSTEMI w/ Vtach s/p ICD pacer w/ tachybrady sndrome - on ASA while hospitalized, D/C at discharge per cardiology recommendation in the setting of apixaban therapy. Continue carvedilol BID and atorvastatin 40mg. Atrial fibrillation/flutter - beta ankit as above. Continue apxiaban. JULIO on CKD III - approaching baseline without IVF, likely associated with cardiac changes as above. Would recommend repeat BMP as outpatient to ensure return to baseline. Else see resident documentation as noted. Subjective This morning patient feels well. Has some discomfort at the device implant site. Besides that patient again today does not endorse any chest pain, palpitations, abdominal pain, shortness of breath, or dizziness. Patient states she feels close to her baseline. Review of Systems Review of Systems: As per HPI. Respiratory: + dyspnea on exertion; no cough and no pain on inspiration Cardiovascular: no radiating jaw, neck or arm pain and no palpitations Gastrointestinal: no abdominal pain, no nausea and no vomiting Genitourinary: no urinary frequency and no urinary urgency Neurologic: no tingling, no numbness and no dizziness Psychiatric: AAOx4 Physical Exam Constitutional: well developed, well nourished, + obese and cooperative Respiratory: normal respiratory effort, lungs clear to auscultation Cardiovascular: Rate/Rhythm: + irregularly irregular Heart Sounds: normal S1 and normal S2 Gastrointestinal (Abdomen): normal bowel sounds, soft, nontender, no hepatosplenomegaly Results & Data Results & Data Vital Signs (Past 12 Hours) Vital Signs Temp Pulse Pulse Resp BP Pulse Ox O2 Del Method 01/30/23 07:45 Room Air 01/30/23 10:27 36.9 C 99 H 18 125/80 92 Room Air 01/30/23 11:38 103 H 01/30/23 07:32 36.4 C L 104 H 19 129/78 94 Room Air
--- NOTE | 2023-01-30 16:02 | Cardiology Progress Note ---
Date of Service January 30, 2023 Assessment & Plan (1) Ventricular tachycardia: (2) Non-ST elevation (NSTEMI) myocardial infarction: (3) Tachy-lina syndrome: (4) Atrial fibrillation with RVR: (5) Cardiomyopathy: (6) Status post placement of cardiac pacemaker: (7) Hypertension: (8) Hyperlipidemia associated with type 2 diabetes mellitus: Plan ASSESSMENT/PLAN: 1. Ventricular tachycardia: No recurrence. Device upgraded to an ICD. Will continue amiodarone primarily for atrial fibrillation. Continue carvedilol. 2. NSTEMI: Concern for small branch vessel occlusion (ramus versus high diagonal). Troponin elevation typical for ischemic event. No clear angina but diaphoretic episode with jaw numbness. No further such episodes. Aspirin 81 mg daily while hospitalized but can discontinue on discharge given no PCI and on long-term anticoagulation therapy. Continue beta-ankit. Statin therapy. 3. Cardiomyopathy: Nonischemic. Carvedilol increased to 25 mg twice daily. Will restart spironolactone 25 mg daily. Hold Entresto for now as renal function stabilizes. Point given renal dysfunction. 4. Atrial fibrillation/flutter: She continues to have high ventricular rates. Increasing carvedilol. Will reinstitute amiodarone as well. She can restart Entresto tomorrow evening. 5. Tachybradycardia syndrome: Underwent pacemaker placement on 01/23/2023. Upgrade to biventricular ICD on 01/29/2023. Normal function on evaluation today. Patient will need to keep the wound dry and Steri-Strips intact until follow-up in our clinic next week. She should refrain from lifting left arm above the shoulder behind the neck for 6 weeks. Admission and Anticipated Discharge Date Admission Date: January 20, 2023 Subjective This morning patient claimed to be somewhat dyspneic after returning from the bathroom. She did not report symptoms of chest discomfort or pressure. She has some discomfort at the device implant site yesterday but describes this is fairly minimal. She did not describe dizziness or lightheadedness. Review of Systems Review of Systems: Per HPI Physical Exam Physical Exam: Gen.: No acute distress. Alert. Mild dyspnea Cardiac: Irregular. No murmur Pulmonary: Normal respiratory effort Chest: Mild ecchymosis at the device implant site. No hematoma. No drainage. No erythema. Extremities: 2+ radial pulses bilaterally. 2+ posterior tibialis pulses bilaterally. Trace bilateral lower extremity edema. Results & Data Vital Signs (Past 12 Hours) Vital Signs Temp Pulse Pulse Resp BP Pulse Ox O2 Del Method 01/30/23 07:45 Room Air 01/30/23 10:27 36.9 C 99 H 18 125/80 92 Room Air 01/30/23 11:38 103 H 01/30/23 07:32 36.4 C L 104 H 19 129/78 94 Room Air Laboratory Results Abnormal Lab Results 01/27/23 01/27/23 01/29/23 05:24 Unknown 16:17 WBC RBC Hgb Hct MCV MCH MCHC RDW Std Deviation RDW Coeff of Amrita Plt Count MPV Sodium Potassium Chloride Carbon Dioxide Anion Gap BUN Creatinine Est Cr Clr Drug Dosing Est GFR ( Amer) Est GFR (Non-Af Amer) BUN/Creatinine Ratio Glucose POC Glucose 169 H Calcium Total Protein (PEP) 6.7 Albumin (PEP) 2.9 L Dimez-7-Rlgsuzygl 0.6 H Yclnf-2-Btnunmblo 0.9 Sflq-5-Epddyudk 0.3 L Tiet-4-Amwwaxbt 0.3 Gamma Globulins 1.6 Monoclonal Peak 3 DNR Ser Monoclonl Protein 1.5 H Ser Monoclonal Prot 2 DNR PEP Interpretation SEE NOTE Angiotensin Convert Enz 22 Ur Creatinine 24 Hour TNP Ur Total Protein 24 Hr DNR Protein/Creat Ratio 24h DNR Urine Albumin (%) TNP U Ksbmz-0-Xghjggqy (%) DNR U Bgeiu-1-Zpdmjyoy (%) DNR U Beta Globulin (%) DNR U Gamma Globulin (%) DNR U Abnormal Prot Band 1 DNR U Abnormal Prot Band 2 DNR U Abnormal Prot Band 3 DNR Urine PEP Interpret DNR Urine Immunofixation TNP 01/29/23 01/30/23 01/30/23 20:13 06:21 06:21 WBC 7.09 RBC 3.71 L Hgb 9.7 L Hct 29.3 L MCV 79.0 L MCH 26.1 MCHC 33.1 RDW Std Deviation 51.3 H RDW Coeff of Amriat 17.8 H Plt Count 406 H MPV 10.5 Sodium 136 Potassium 5.0 Chloride 102 Carbon Dioxide 25 Anion Gap 9 BUN 37 H Creatinine 2.35 H Est Cr Clr Drug Dosing 26.9 Est GFR ( Amer) 22.6 Est GFR (Non-Af Amer) 19.5 BUN/Creatinine Ratio 15.7 Glucose 173 H POC Glucose 173 H Calcium 8.7 Total Protein (PEP) Albumin (PEP) Otpup-4-Ypjtjmpsb Zkkjo-8-Opmynkvtx Hsve-5-Oaecwjjp Jmvm-2-Sgxdtzep Gamma Globulins Monoclonal Peak 3 Ser Monoclonl Protein Ser Monoclonal Prot 2 PEP Interpretation Angiotensin Convert Enz Ur Creatinine 24 Hour Ur Total Protein 24 Hr Protein/Creat Ratio 24h Urine Albumin (%) U Tfpfg-3-Uhcmjbjf (%) U Douto-6-Ceythyye (%) U Beta Globulin (%) U Gamma Globulin (%) U Abnormal Prot Band 1 U Abnormal Prot Band 2 U Abnormal Prot Band 3 Urine PEP Interpret Urine Immunofixation 01/30/23 01/30/23 07:30 11:26 WBC RBC Hgb Hct MCV MCH MCHC RDW Std Deviation RDW Coeff of Amrita Plt Count MPV Sodium Potassium Chloride Carbon Dioxide Anion Gap BUN Creatinine Est Cr Clr Drug Dosing Est GFR ( Amer) Est GFR (Non-Af Amer) BUN/Creatinine Ratio Glucose POC Glucose 185 H 201 H Calcium Total Protein (PEP) Albumin (PEP) Urwdf-6-Foanrkcut Niagy-8-Vrmdzlydz Enua-7-Mnamreqh Oyqo-6-Idiipddv Gamma Globulins Monoclonal Peak 3 Ser Monoclonl Protein Ser Monoclonal Prot 2 PEP Interpretation Angiotensin Convert Enz Ur Creatinine 24 Hour Ur Total Protein 24 Hr Protein/Creat Ratio 24h Urine Albumin (%) U Lhfll-9-Zifvqczn (%) U Ofvtp-9-Hhjbarly (%) U Beta Globulin (%) U Gamma Globulin (%) U Abnormal Prot Band 1 U Abnormal Prot Band 2 U Abnormal Prot Band 3 Urine PEP Interpret Urine Immunofixation Diagnostic Findings I performed a complete device interrogation of her biventricular ICD. Normal function on all leads. Chest x-ray demonstrated stable lead position without pneumothorax. PG Care Time/CCT Total # of Minutes Spent Total Time Spent with Patient: Total time spent is greater than 50% in coordination of care (as documented) at patient's floor/unit and/or counseling patient: Coding Level of Care Code None Diagnoses Ventricular tachycardia I47.20 Non-ST elevation (NSTEMI) myocardial infarction I21.4 Tachy-lina syndrome I49.5 Atrial fibrillation with RVR I48.91 Cardiomyopathy I42.9 Status post placement of cardiac pacemaker Z95.0 Hypertension I10 Hyperlipidemia associated with type 2 diabetes mellitus E11.69; E78.5
[2023-01-30] MEDS: carvediloL 25 MG TAB PO SCH (17:07)
[2023-01-30] MEDS: AMIODARONE 200 MG TAB PO SCH (17:54)
[2023-01-30] MEDS: predniSONE 5 MG TAB PO SCH (20:04)
[2023-01-30] MEDS: ATORVASTATIN 40 MG TAB PO SCH (20:06)
[2023-01-31] MEDS: LEVOTHYROXINE SODIUM 137 MCG TABLET PO SCH (05:42)
--- NOTE | 2023-01-31 07:59 | Discharge Summary ---
Date of Service January 31, 2023 Principal Diagnosis Atrial fibrillation w/ RVR NSTEMI Discharge Exam Constitutional well developed, well nourished, + obese and cooperative Respiratory normal respiratory effort, lungs clear to auscultation Cardiovascular Rate/Rhythm: + irregularly irregular Heart Sounds: normal S1 and normal S2 Gastrointestinal (Abdomen) normal bowel sounds, soft, nontender, no hepatosplenomegaly Discharge Data Allergies Allergy/AdvReac Type Severity Reaction Status Date / Time codeine Allergy Severe Anaphylaxis Verified 01/20/23 21:22 celecoxib [From Celebrex] Allergy Intermediate RASH Verified 01/20/23 21:22 cephalexin [From Keflex] Allergy Intermediate Rash Verified 01/20/23 21:22 hydrocodone Allergy Intermediate Rash Verified 01/20/23 21:22 Iodinated Contrast Media Allergy Intermediate RASH Verified 01/20/23 21:22 nickel Allergy Intermediate Rash Verified 01/20/23 21:22 oxycodone Allergy Intermediate Rash Verified 01/20/23 21:22 Sulfa (Sulfonamide Allergy Intermediate RASH TO Verified 01/20/23 21:22 Antibiotics) SULFA DRUGS tetracycline Allergy Intermediate RASH Verified 01/20/23 21:22 capsaicin AdvReac Intermediate CREATINE Verified 01/20/23 21:23 ELEVATION diclofenac AdvReac Intermediate CREATINE Verified 01/20/23 21:23 ELEVATION propylene glycol AdvReac Intermediate CREATINE Verified 01/20/23 21:23 ELEVATION "PREP WITH BLUE DYE" Allergy Intermediate Rash Uncoded 01/20/23 21:22 Consultations 01/20/23 21:10 ED Decision to Admit Stat 01/21/23 01:06 Consult Cardiology Routine Procedures Performed Operation Date: 01/29/23 09:30 Actual Procedures s ICD Gen Change Multiple - Lukasz Schilling MD s Lead, Extraction Single Pacing - Lukasz Schilling MD s Insertion Single Lead Only - Lukasz Schilling MD p Insertion ICD w/Existing Mult - Lukasz Schilling MD Ordered Studies 01/23/23 06:45 EP Lab Images for PACS ONCE 01/24/23 13:04 CL Cath Imgs for PACS use only Stat 01/29/23 09:45 EP Lab Images for PACS ONCE Hospital Course (1) Acute kidney injury: (2) Pulmonary edema: (3) Status post placement of cardiac pacemaker: (4) Chronic kidney disease with active medical management without dialysis, stage 3 (moderate): (5) Tachy-lina syndrome: (6) Atrial fibrillation with RVR: (7) Non-ST elevation (NSTEMI) myocardial infarction: (8) Cardiomyopathy: (9) Elevated troponin: Plan 77 year old female w/ PMHx osteoarthritis, HTN, T2DM, CKD, mild persistent asthma,and paroxysmal atrial fibrillation on Eliquis was admitted for A fib w/ RVR. Diltiazem was trialed and, subsequently, amiodarone trialed to control atrial fibrillation, but patient developed tachycardia-bradycardia syndrome (sick sinus syndrome). To control this a pacemaker was placed 01/23 and has been functioning properly. Acute Kidney Injury on top of CKD-stage 3 - Patient's baseline creatinine ~ 1.7 - 2.0 - Post NSTEMI/Cardiomyopathy there were concerns for cardiorenal syndrome - Creatinine continues to trend lower: 2.99 --> 2.78 --> 2.29 - Patient's acute kidney injury appears to have improved Elevated Troponin/NSTEMI/Cardiomyopathy/Pulmonary edema On 01/23 after pacemaker placed, patient c/o'ed of chest pain and troponins ordered. Peaked in 3400s. An EKG showed no ischemic changes. - Later (01/24), she developed ventricular tachycardia, after long QT intervals detected on telemetry, became unconscious. She was given Aspirin and taken for catheterization. Cardiac catheterization revealed no significant coronary artery obstruction. Nevertheless, she was started on anti-platelet therapy with Aspirin, and Carvedilol dose was increased to 18.75 mg PO BID. Amiodarone was discontinued. Will continue to monitor telemetry. - Last troponin 1552 - Patient no longer complaining of chest pain--no pleuritic chest pain, no MSK chest pain. - carvedilol, 25 mg, PO, BID with meals Paroxysmal A. fib with rapid ventricular response/Global hypokinesis - Past history of paroxysmal A. fib diagnosed 3 years ago. - ECHO: Moderate to Severe reduced systolic function EF 30-35%, Global hypokinesis. Mild concentric left ventricular hypertrophy, Moderate biatrial dilation (LV has decline compared to prior in 2020) -Eliquis 5mg, PO, BID, will be restarted tonight, 01/31/23, upon discharge -amiodarone, 400 mg, PO, BID, with meals Hypertension Continue on nifedipine, 90 mg, ER, PO, BID -spironolactone 25 mg, PO, BID, restarted, recommendation from cardiology Type 2 Diabetes - last A1C at 6.7, maintain carb consistent, heart healthy, diet upon discharge - resume home T2DM meds upon discharge Trulicity, 0.75 mg, subcutaneous, weekly Jardiance, 10 mg, PO, daily Hypothyroidism Patient on levothyroxine, 137 mcg daily PO. Iron-deficiency anemia -patient mildly anemic, Hgb of 9.3 -supplemented with ferrous sulfate as needed upon discharge GERD Patient currently on 40 mg pantoprazole, PO, BID to manage her GERD symptoms. Depression -continue duloxetine, 60 mg, PO, Q-AM Chronic anticoagulation Patient was on Eliquis, 5 mg, PO, BID --> cardiology recommends re-starting on 01/31/23 evening Total Time Total Time Spent Total Time Spent (In Minutes): see attending attestation Discharge Plan Discharge Items Patient Disposition: Home - Self-Care Reason For Visit: AFIB RVR Discharge Diagnosis: Atrial fibrillation w/ RVR s/p ICD placement Activity: Per Instructions section Non-emergency contact: Primary Care Provider and Liquid Sugar Fortifier Call non-emergency contact if: you have any medication questions, your symptoms worsen and your wound has increased redness Follow-up/Referrals: Lukasz Schilling MD [Physician] - (f/u ICD placement, afib) Jigna Jovel DO [Primary Care Provider] - 02/04/23 3:00 pm Diet: Carb Consistent or DM2, Heart Healthy and Low Sodium (2gm) Addtl Attending Provider Instructions: You were admitted to the hospital for shortness of breath. You were found to be in an abnormal heart rhythm called atrial fibrillation in addition to tachy- bradycardia syndrome. This syndrome refers to your heart switching between beating very quickly and very slowly. Due to this, a pacemaker was originally placed. However, your heart went into another abnormal rhythm called ventricular tachycardia- due to this, your heart device was changed to an implantable cardioverter-defibrillator which will shock your heart if it would go into another abnormal rhythm. A discharge summary will be sent to your primary care physician to ensure continuity of care. Please bring this discharge summary with you to your next office appointment so that your provider can review it at that time. Medications: Your medication list has been reviewed and reconciled upon discharge to ensure accuracy and continuity of care. An updated list of all your medications is included with your hospital discharge paperwork. Please review this list closely and make note of any changes to your medications. - You were started on amiodarone 400 mg twice per day. This medication helps to control the rhythm of your heart. The dose of this medication may be changed in the near future by your boiler room operator. Please discuss this with them. - You were started on carvedilol 25 mg twice per day. This is to help control your heart rate. - You were started on atorvastatin 40 mg daily which is a medication to help lower cholesterol. - You are no longer to take a daily aspirin. - You should continue your other home medications as prior to hospitalization. Follow up appointments: - Make a follow up appointment with your PCP within the next week. It is very important that you follow up with them shortly after discharge from the hospital. - Keep all of your follow up appointments as already scheduled. If you cannot make an appointment, notify your provider. CONTACT YOUR PRIMARY CARE PROVIDER if you experience any of the following: - Difficulty following your treatment plan - Difficulty taking any of your medications CALL 911 OR GO TO THE EMERGENCY DEPARTMENT if you experience any of the following: - Sudden, severe abdominal pain or nausea/vomiting - Severe chest pain or chest pain that radiates to your jaw or arm - Sudden, severe shortness of breath or difficulty breathing Addtl List Of [employer] Provider Instructions: ACTIVITY RECOMMENDATIONS: * Do not raise affected arm over head for 2 weeks. SPECIAL CARE INSTRUCTIONS: * If bleeding occurs, apply direct pressure to area for 5 minutes. * Call your doctor if you have severe pain, fever, drainage or bleeding at site. * Keep dressing on and dry for 48 hours then remove. * Keep any scheduled doctor's appointment. * Implant Card - hand held device with website information given. SKIN IRRITATION: * You may experience some redness and/or swelling in the area where radiation was administered. If any skin irritation occurs, please contact your family physician. FOLLOW UP VISIT: Keep any scheduled doctor appointments. Pending Studies at Discharge: No Stand-Alone Forms: My [employer], Smoking Cessation Medications and DC Order Prescriptions: New amiodarone 400 mg tablet 400 mg PO BIDM Qty: 60 1RF atorvastatin 40 mg Tablet 40 mg PO HS Qty: 30 1RF carvedilol 25 mg Tablet 25 mg PO BIDM Qty: 60 1RF Continued prednisone 5 mg tablet 5 mg PO HS Qty: 90 3RF nifedipine 90 mg tablet extended release 90 mg PO HS Qty: 90 3RF duloxetine [Cymbalta] 60 mg capsule,delayed release(DR/EC) 60 mg PO QAM Qty: 90 3RF spironolactone [Aldactone] 25 mg tablet 25 mg PO BID Qty: 180 2RF levothyroxine 137 mcg capsule 137 mcg PO DAILY Qty: 90 3RF azelastine 137 mcg (0.1 %) aerosol,spray 2 spray INTRANASAL DAILY PRN (Reason: ALLERGIES) Qty: 30 0RF (DME) Accu-Chek Garima Plus test strp Strip See Rx Instructions .ROUTE .MEDSUPPLY Qty: 100 3RF Rx Instructions: Check blood sugars once PRN potassium chloride [Klor-Con M20] 20 mEq tablet,ER particles/crystals 20 meq PO QAM Qty: 90 3RF Eliquis 5 mg tablet 5 mg PO BID Qty: 180 3RF montelukast [Singulair] 10 mg tablet 10 mg PO DAILY Qty: 90 3RF (DME) blood-glucose meter [Accu-Chek Garima Plus Meter] Misc See Rx Instructions .ROUTE .MEDSUPPLY Rx Instructions: Used to check blood sugars once PRN nitroglycerin [Nitro-Dur] 0.4 mg/hr patch 24 hour 1 patch TRANSDERMAL QAM Qty: 90 3RF Rx Instructions: remove after 12 hours Jardiance 10 mg tablet 10 mg PO DAILY Qty: 90 3RF Rx Instructions: Take one tablet once daily by mouth. cholestyramine (with sugar) 4 gram powder 4 ea PO DIRECTED PRN (Reason: NEEDED PER PT.) albuterol sulfate 90 mcg/actuation HFA aerosol inhaler 2 puff inhalation Q6H PRN (Reason: shortness of breath or wheezing) Qty: 8.5 2RF budesonide-formoterol [Symbicort] 80-4.5 mcg/actuation HFA aerosol inhaler 2 puff inhalation BID Qty: 3 3RF calcitriol 0.5 mcg capsule 0.5 mcg PO DAILY Qty: 90 3RF cetirizine [Zyrtec] 10 mg Tablet 10 mg PO HS betamethasone valerate 0.1 % cream 1 applic TOPICAL UD PRN (Reason: PSORIASIS ) Rx Instructions: Apply to areas of the arms twice daily for up to 2 weeks as needed for flaring. omega 7-vyx-bed-fish oil [Fish Oil] 1,000 mg (120 mg-180 mg) Capsule 1,000 mg PO BID magnesium oxide 400 mg magnesium Tablet 400 mg PO BID levalbuterol HCl 0.63 mg/3 mL Solution For Nebulization 0.63 mg INHALATION Q4H PRN (Reason: Cough) acetaminophen [Tylenol Arthritis Pain] 650 mg Tablet Extended Release 1,300 mg PO BID Trulicity 0.75 mg/0.5 mL pen injector 0.75 mg subcut WK Rx Instructions: THURSDAYS Inject once weekly into the abdomen. Discharge Orders: Discharge Order (Routine); Ordered 01/31/23 Ordered By: Mindy Leon Admission Data Admit Date/Time: 01/20/23 21:54 Attending Provider: Lukasz Philippe Admit Provider: Riley Avendaño Primary Care Provider: Jigna Jovel Other Providers: Yoel Pelaez ; Jarocho Herrera ; Kirk Ca Other Interventions: Discharge Summary Assessment (RN) Last Done: 01/31/23 14:22 Supervising Physician Co-Signing Physician Notes Attending attestation Pt seen and examined in concert with Dr. Sullivan. In agreement with the documented findings as noted in the resident documentation with any exceptions or additions as noted here. Resting comfortably in bed. Overnight w/ single episode of ongoing chest tightness and tachycardia with activity. On examination, S1/S2 nl IRR no MCG. CTAB. Abd NT/ND BS+ve NSTEMI w/ Vtach s/p ICD pacer w/ tachybrady sndrome - on ASA while hospitalized, D/C at discharge per cardiology recommendation in the setting of apixaban therapy. Continue carvedilol BID and atorvastatin 40mg. Atrial fibrillation/flutter - beta ankit as above. Continue apxiaban. JULIO on CKD III - approaching baseline without IVF, likely associated with cardiac changes as above. Would recommend repeat BMP as outpatient to ensure return to baseline. Per previous recommendation, cardiac rehabilitation request completed for case management prior to discharge Else see resident documentation as noted. Total attending physician time spent with this patients care on the day of discharge: 45 minutes.
[2023-01-31] MEDS: MONTELUKAST SODIUM 10 MG TABLET PO SCH (08:18)
[2023-01-31] MEDS: MAGNESIUM OXIDE 400 MG TAB PO SCH (08:18)
[2023-01-31] MEDS: DULoxetine HCL 60 MG CAP PO SCH (08:18)
[2023-01-31] MEDS: PANTOprazole 40 MG TAB PO SCH (08:18)
[2023-01-31] MEDS: CALCITRIOL 0.25 MCG CAPSULE PO SCH (08:19)
[2023-01-31] MEDS: ASPIRIN 81 MG ECTAB PO SCH (08:19)
[2023-01-31] MEDS: FLUTICASONE/VILANTEROL 100/25MCG 14 PUFFS/INHALER INH SCH (08:20)
[2023-01-31] MEDS: carvediloL 25 MG TAB PO SCH (08:20)
[2023-01-31] MEDS: NITROGLYCERIN 0.4 MG/HR PATCH TD SCH (08:21)
--- NOTE | 2023-01-31 08:26 | Hospitalist Progress Note ---
Date of Service January 31, 2023 Assessment & Plan (1) Acute kidney injury: (2) Pulmonary edema: (3) Status post placement of cardiac pacemaker: (4) Chronic kidney disease with active medical management without dialysis, stage 3 (moderate): (5) Tachy-lina syndrome: (6) Atrial fibrillation with RVR: (7) Non-ST elevation (NSTEMI) myocardial infarction: (8) Cardiomyopathy: (9) Elevated troponin: Plan 77 year old female w/ PMHx osteoarthritis, HTN, T2DM, CKD, mild persistent asthma,and paroxysmal atrial fibrillation on Eliquis was admitted for A fib w/ RVR. Diltiazem was trialed and, subsequently, amiodarone trialed to control atrial fibrillation, but patient developed tachycardia-bradycardia syndrome (sick sinus syndrome). To control this a pacemaker was placed 01/23 and has been functioning properly. Acute Kidney Injury on top of CKD-stage 3 - Patient's baseline creatinine ~ 1.7 - 2.0 - Post NSTEMI/Cardiomyopathy there were concerns for cardiorenal syndrome - Creatinine continues to trend lower: 2.99 --> 2.78 --> 2.35 - Will continue to trend via BMPs Elevated Troponin/NSTEMI/Cardiomyopathy/Pulmonary edema On 01/23 after pacemaker placed, patient c/o'ed of chest pain and troponins ordered. Peaked in 3400s. An EKG showed no ischemic changes. Later (01/24), she developed ventricular tachycardia, after long QT intervals detected on telemetry, became unconscious. She was given Aspirin and taken for catheterization. Cardiac catheterization revealed no significant coronary artery obstruction. Nevertheless, she was started on anti-platelet therapy with Aspirin, and Carvedilol dose was increased to 18.75 mg PO BID. Amiodarone was discontinued. Will continue to monitor telemetry. - Last troponin 1552 - Patient no longer complaining of chest pain--no pleuritic chest pain, no MSK chest pain. Paroxysmal A. fib with rapid ventricular response/Global hypokinesis - Past history of paroxysmal A. fib diagnosed 3 years ago. - ECHO: Moderate to Severe reduced systolic function EF 30-35%, Global hypokinesis. Mild concentric left ventricular hypertrophy, Moderate biatrial dilation (LV has decline compared to prior in 2020) -Eliquis currently held, recommendations from cardiology for today's ICD placement; plan to resume post-procedure -Cardiology recommendation: -Due to bradycardia, patient cannot be placed on a B-ankit Hypertension Continue on nifedipine -spironolactone can be re-started, recommendation from cardiology Type 2 Diabetes - last A1C at 6.7, hold DM meds while in hospital - if glucose values get high, add on SSI - Still on carb consistent, heart healthy, low K+ diet, ordered through 01/29/23 Hypothyroidism Patient on levothyroxine, 137 mcg daily PO. Iron-deficiency anemia -patient mildly anemic, Hgb of 9.7, monitor w/ daily CBCs -supplemented with ferrous sulfate as needed GERD Patient currently on 40 mg pantoprazole, PO, BID to manage her GERD symptoms. Depression -continue duloxetine Chronic anticoagulation Patient was on Eliquis, 5 mg, PO, BID --> cardiology recommends re-starting on 01/31/23 evening Admission and Anticipated Discharge Date Admission Date: January 20, 2023 Subjective This morning patient feels well. Has some discomfort at the device implant site. Besides that patient again today does not endorse any chest pain, palpitations, abdominal pain, shortness of breath, or dizziness. Patient states she feels close to her baseline. Review of Systems Review of Systems: As per HPI. Ear, Nose, Mouth, Throat: no ear pain, no facial pain and no TMJ pain Respiratory: + cough (phlegmy cough) and + dyspnea on exertion; no pain on inspiration Cardiovascular: + chest pain (chest tightness last night after washing herself up in chest/neck area); no radiating jaw, neck or arm pain and no palpitations Gastrointestinal: no abdominal pain, no nausea and no vomiting Genitourinary: no urinary frequency and no urinary urgency Neurologic: no tingling, no numbness and no dizziness Psychiatric: AAOx4 Physical Exam Constitutional: well developed, well nourished, + obese and cooperative Respiratory: normal respiratory effort, lungs clear to auscultation Cardiovascular: Rate/Rhythm: + irregularly irregular Heart Sounds: normal S1 and normal S2 Gastrointestinal (Abdomen): normal bowel sounds, soft, nontender, no hepatosplenomegaly Results & Data Results & Data Vital Signs (Past 12 Hours) Vital Signs Temp Pulse Pulse Resp BP BP Pulse Ox 01/31/23 07:30 37.0 C 82 19 106/62 96 01/31/23 03:52 36.6 C 99 H 22 130/77 93 01/30/23 23:48 37.1 C 98 H 18 134/62 95 01/30/23 21:00 O2 Del Method 01/31/23 07:30 Room Air 01/31/23 03:52 Room Air 01/30/23 23:48 Room Air 01/30/23 21:00 Room Air
[2023-01-31] MEDS: AMIODARONE 200 MG TAB PO SCH (08:53)
--- NOTE | 2023-01-31 10:39 | Cardiology Progress Note ---
Date of Service January 31, 2023 Assessment & Plan (1) Ventricular tachycardia: Plan: -no recurrence. -device upgraded to an ICD on 01/29/2023. -continue carvedilol at 25 mg b.i.d. -on amiodarone primarily for atrial fibrillation. (2) Non-ST elevation (NSTEMI) myocardial infarction: Plan: -likely a small branch vessel event (ramus versus high diagonal). -no recent angina pectoris. -discontinue aspirin at discharge per Dr. Schilling. (3) Cardiomyopathy: Plan: -nonischemic. -continue carvedilol and spironolactone. -Entresto once renal function improves. (4) Tachy-lina syndrome: Plan: -DDD pacemaker placed 01/23/2023. -upgraded to a BiV ICD 01/29/2023. -normal interrogation yesterday by Dr. Schilling. (5) Atrial fibrillation with RVR: Plan: -ventricular response improving on increased dose of carvedilol. -continue amiodarone. -Eliquis currently on hold. Admission and Anticipated Discharge Date Admission Date: January 20, 2023 Subjective The patient is resting comfortably in bed without complaints of chest pain, dyspnea, or palpitations. She is anxious for hospital discharge. Physical Exam Physical Exam: In general is well-developed well-nourished female in no acute distress. HEENT exam is negative. Neck is supple with full carotid upstrokes. No carotid bruits. Jugular is pressure is flat at 90. There is no thyromegaly. Cardiovascular exam reveals an irregular rhythm with distant heart sounds. Lungs are clear without rales, rhonchi, or wheezes. Abdomen is soft and nontender without bruits. Extremities reveal intact radial artery pulses bilaterally. Trace pretibial edema. Results & Data Vital Signs (Past 12 Hours) Vital Signs Temp Pulse Pulse Resp BP BP Pulse Ox 01/31/23 07:30 37.0 C 82 19 106/62 96 01/31/23 03:52 36.6 C 99 H 22 130/77 93 01/30/23 23:48 37.1 C 98 H 18 134/62 95 O2 Del Method 01/31/23 07:30 Room Air 01/31/23 03:52 Room Air 01/30/23 23:48 Room Air Diagnostic Findings hospital monitor notes atrial fibrillation with a ventricular response of 90- 100 beats per minute. PG Care Time/CCT Total # of Minutes Spent Total Time Spent with Patient: Total time spent is greater than 50% in coordination of care (as documented) at patient's floor/unit and/or counseling patient: Coding Level of Care Code 40284 SUB INP/OBS CARE 3/50MIN Diagnoses Ventricular tachycardia I47.20 Non-ST elevation (NSTEMI) myocardial infarction I21.4 Cardiomyopathy I42.9 Tachy-lina syndrome I49.5 Atrial fibrillation with RVR I48.91
[2023-01-31 12:17] LABS: Basophils # (auto) 0.04 K/uL (0.00-0.20); Basophils % (auto) 0.6 %; Eosinophils # (auto) 0.16 K/uL (0.00-0.50); Eosinophils % (auto) 2.3 %; Hematocrit (blood only) 29.7 % (37.0-47.0); Hemoglobin 9.3 g/dl (12.0-16.0); Immature Granulocytes # (auto) 0.05 K/uL (0.01-0.20); Immature Granulocytes % (auto) 0.7 %; Lymphocytes % (auto) 18.7 %; Mean Corpuscular Hemoglobin 25.5 pg (25.0-34.0); Mean Corpuscular Hgb Conc 31.3 g/dL (32.0-36.0); Mean Corpuscular Volume 81.6 fL (80.0-100.0); Mean Platelet Volume 10.1 fL (9.4-12.4); Monocytes # (auto) 0.72 K/uL (0.11-0.59); Monocytes % (auto) 10.3 %; Neutrophils % (auto) 67.4 %; Platelet Count 440 K/uL (130-400); RDW Coefficient of Variation 17.7 % (11.5-14.5); Red Blood Count 3.64 M/uL (4.20-5.40); White Blood Count 6.97 K/ul (4.8-10.8)
[2023-01-31 12:30] LABS: BUN Creatinine Ratio 14.8 (10-20); Calcium 8.5 mg/dl (8.6-10.3); Creatinine Clr Calc Pharmacy 27.7 ml/min; Est GFR (African American) 23.3 ml/min; Est GFR (Non-African American) 20.1 ml/min; Potassium 4.3 mmol/L (3.5-5.1)
[2023-02-03 08:57] LABS: Abnormal Protein Band 1 55 mg/24 h (NONE DETECTED); Abnormal Protein Band 2 5 mg/24 h (NONE DETECTED); Abnormal Protein Band 3 DNR mg/24 h (NONE DETECTED); Creatinine, 24 hr Urine 1.48 g/24 h (0.50-2.15); Protein, Urine 24 Hour 510 mg/24 h (<150); Ur Protein/Creatinine Rat mg/g 345 mg/g creat (<150); Urine Protein/Creatinine Ratio 0.345 (<0.150)
== END 2023-01-31 15:15 | disposition home or self-care (01) | DRG 224 ==
LOC: ED 19:23 → SUATTDRO 21:54 → 2S 21:54

== ENCOUNTER 2023-03-27 12:52 | Inpatient (IN) ==
[2023-03-27 14:04] LABS: Basophils # (auto) 0.04 K/uL (0.00-0.20); Basophils % (auto) 0.8 %; Eosinophils # (auto) 0.37 K/uL (0.00-0.50); Hematocrit (blood only) 29.3 % (37.0-47.0); Hemoglobin 9.2 g/dl (12.0-16.0); Immature Granulocytes # (auto) 0.01 K/uL (0.01-0.20); Immature Granulocytes % (auto) 0.2 %; Lymphocytes # (auto) 1.17 K/uL (1.20-3.40); Lymphocytes % (auto) 22.1 %; Mean Corpuscular Hemoglobin 25.6 pg (25.0-34.0); Mean Corpuscular Hgb Conc 31.4 g/dL (32.0-36.0); Mean Corpuscular Volume 81.6 fL (80.0-100.0); Mean Platelet Volume 10.7 fL (9.4-12.4); Monocytes # (auto) 0.44 K/uL (0.11-0.59); Monocytes % (auto) 8.3 %; Neutrophils # (auto) 3.26 K/uL (1.40-6.50); Neutrophils % (auto) 61.6 %; Platelet Count 314 K/uL (130-400); RDW Coefficient of Variation 20.2 % (11.5-14.5); RDW Standard Deviation 59.5 fL (36.4-46.3); Red Blood Count 3.59 M/uL (4.20-5.40); White Blood Count 5.29 K/ul (4.8-10.8)
--- NOTE | 2023-03-27 14:28 | Emergency Department Note ---
Impression & Plan Hypoxia, Pleural effusion, Shortness of breath, CHF (congestive heart failure) ED Provider Note NAME: FRANCA LEAL AGE: 77 SEX: F : 1945 ARRIVES VIA: Walk-In INFORMANT: Patient ED PROVIDER(S): Kirk Vincent DO CHIEF COMPLAINT: Shortness of breath HPI: Patient is a 77-year-old female who presents to the ER for chest pain and shortness of breath. She has a past medical history of CKD, biventricular pacer, GERD, diabetes, who presents to the ER with worsening shortness of breath. She notes she has been having intermittent shortness of breath for the past 4 weeks since her catheterization. She notes over the past week it has been getting worse. She was placed on antibiotics and just completed them today. She followed up with her PCP and was referred in. She is hypoxic and admits to chest tightness which feels like her asthma. She notes that also she has been having pitting edema in her legs which has been worsening over the past week. Denies any belly pain, nausea, vomiting, or diarrhea. No dysuria, urgency, or frequency. ADDITIONAL HISTORY OBTAINED: Per HPI Chronic Medical/Social Conditions Affecting Care: Per HPI PAST MEDICAL HISTORY:See Below PAST SURGICAL HISTORY:See Below FAMILY HISTORY:See Below SOCIAL HISTORY:See Below HOME MEDICATIONS:See Below ALLERGIES:See Below VITALS:See Below PHYSICAL EXAMINATION: GENERAL: Sitting up in bed, alert, disheveled, on 4 L nasal cannula EYE EXAM: normal conjunctiva. PERRL and EOM's grossly intact. OROPHARYNX: no exudate, no erythema, lips, buccal mucosa, and tongue normal and mucous membranes are moist NECK: supple, no nuchal rigidity, no adenopathy, non-tender LUNGS: Diminished bilaterally. Normal chest wall mechanics HEART: no murmurs, S1 normal and S2 normal ABDOMEN: abdomen soft, non-tender, normo-active bowel sounds, no masses, no rebound or guarding. UPPER EXTREMITIES: upper extremities are grossly normal. LOWER EXTREMITIES: Pitting edema bilaterally NEURO EXAM: Normal sensorium, cranial nerves II-XII grossly intact, normal speech, no gross weakness of arms, no gross weakness of legs. MEDICAL DECISION MAKING: Patient is a 77-year-old female who presents ER with past medical history of asthma as well as CHF or shortness of breath. She has been treated for pneumonia as an outpatient. IV was established blood work was obtained. She is found to be hypoxic upon presentation. She was placed on 3 L nasal cannula. Labs show no significant leukocytosis. Mild anemia 9.2 consistent with previous. BMP with a creatinine of 3.09 which is actually improved from previous. LFTs bilirubin was unremarkable. Troponin was negative. Lipase negative. UA was clean. Viral panel was negative. Chest x-ray supports CHF with bilateral pleural effusions. She was given IV Bumex discussed with Dr. Hunter Alaniz admitted for further work-up. External Records Reviewed: External records reviewed with nephrology creatinine has improved from 4-3 at baseline Consults/Care Managements Discussions: Per [facility] Triage Nursing notes reviewed. Limited review of prior medical records performed Vital Signs: reviewed and remarkable for hypoxic Differential diagnosis: Differential diagnoses includes but is not limited to pneumonia, bronchitis, COPD/Asthma exacerbation, pneumothorax, pulmonary embolism, congestive heart failure, acute coronary syndrome ER treatment provided: See below Diagnostics interpreted by me include EKG and cardiac monitoring as listed below: -Cardiac Monitoring: An order was placed for continuous cardiac monitoring. The monitor shows a rate of 70 with paced rhythm. -ECG: Ventricularly paced rate of 68 Left axis Septal Q waves QTc 442 -Laboratory studies:Interpreted by me as stated above in MDM and shown below. Imaging studies: Xrays: As interpreted by me: Portable AP upright 1 view of the chest shows bilateral effusions CTs show: none Procedures:none Critical Care: I have personally spent 33 minutes of critical care time in the direct management of this patient. This includes bedside care, interpretation of diagnostic studies, and testing, discussion with consultants, patient, and family members, and other required patient management activities. This 33 minutes is in excess of all separately billable procedures. Past Med/Surg History Medical History Pulmonary edema Cardiomyopathy Non-ST elevation (NSTEMI) myocardial infarction Ventricular tachycardia Tachy-lina syndrome Elevated troponin Atrial fibrillation with RVR Sialoadenitis, unspecified Allergic rhinitis SI joint arthritis Abnormal PFT Mild persistent asthma Active asthma Sinus congestion Chronic dyspnea On anticoagulant therapy Paroxysmal atrial fibrillation Iron deficiency anemia Atrial fibrillation Varicose veins of legs Seasonal allergies Chronic steroid use Esophageal dysmotility Restless leg syndrome Hyperlipidemia Hearing loss, right Hiatal hernia 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 Obesity Polyneuropathy Tinnitus of right ear Gastric polyp Type II diabetes mellitus (Unknown) Esophageal spasm Schatzki's ring HTN (hypertension) Essential hypertension Peptic ulcer disease Irritable bowel syndrome Hypothyroidism Spinal meningioma CKD (chronic kidney disease) stage 4, GFR 15-29 ml/min Psoriatic arthropathy GERD (gastroesophageal reflux disease) Osteoarthritis, knee Surgical History History of laparoscopy (~06/2020) History of colectomy (~06/2020) History of total left hip arthroplasty History of total hip arthroplasty History of dilatation and curettage History of tooth extraction History of tonsillectomy and adenoidectomy History of cardiac cath History of arthroscopy Status post total replacement of left shoulder History of colonoscopy History of esophagogastroduodenoscopy (EGD) History of total abdominal hysterectomy and bilateral salpingo-oophorectomy History of arthroscopy of right shoulder History of total knee arthroplasty History of foot surgery History of cholecystectomy History of cataract extraction History of lumbar fusion H/O thyroidectomy Family History Mother Arthritis Hypertension Father Lung cancer Hypertension Family/Other Family hx of colon cancer Unknown Allergies Breast cancer Hypertension Brother Cancer Heart disease Aunt Colorectal cancer Other No family history of adverse response to anesthesia No family history of bleeding disorder Denies family history of Ovarian cancer Prostate cancer Diabetes Hearing loss Myocardial infarction Stroke Asthma Social History Smoking Status: Former smoker Tobacco Type: Cigarettes Age Quit Using Tobacco: 26; Second Hand Exposure: No; Do You Dip or Chew Tobacco: No; Hx Alcohol Use: Yes Alcohol type: wine Hx Substance Use: No Preferred Language: Uzbek Communication Ability: Effective Communication Ability Comment: DEAF RIGHT EAR Visual Impairment: Limited Hearing Ability: Hard of Hearing Tipple Tender Required: No Beliefs That Will Affect Care: None marital status: / Current Living Situation: Family Current Living Situation Comment: pt now lives with a friend to help care for her current occupational status: retired current occupation: Retired How many Children do You have: 0 Feels Safe at Home: Yes Childhood Exposure to Second-Hand Smoke: Yes caffeine: Yes Dental Care, Regularly: Yes Physical Activity Frequency: Does not Exercise Physical Activity Frequency Comment: Hip problems Seatbelt Use: always Sunscreen Use: No Assistive Devices: Cane Allergies Allergies Allergy/AdvReac Type Severity Reaction Status Date / Time codeine Allergy Severe Anaphylaxis Verified 03/27/23 15:24 furosemide Allergy Severe SEVERE Verified 03/27/23 15:24 RASH, PT REPORTS A CROSS ALLERGY WITH SULFA celecoxib [From Celebrex] Allergy Intermediate RASH Verified 03/27/23 15:24 cephalexin [From Keflex] Allergy Intermediate Rash Verified 03/27/23 15:24 hydrocodone Allergy Intermediate Rash Verified 03/27/23 15:24 Iodinated Contrast Media Allergy Intermediate RASH Verified 03/27/23 15:24 nickel Allergy Intermediate Rash Verified 03/27/23 15:24 oxycodone Allergy Intermediate Rash Verified 03/27/23 15:24 Sulfa (Sulfonamide Allergy Intermediate RASH TO Verified 03/27/23 15:24 Antibiotics) SULFA DRUGS tetracycline Allergy Intermediate RASH Verified 03/27/23 15:24 capsaicin AdvReac Intermediate CREATINE Verified 03/27/23 15:24 ELEVATION diclofenac AdvReac Intermediate CREATINE Verified 03/27/23 15:24 ELEVATION propylene glycol AdvReac Intermediate CREATINE Verified 03/27/23 15:24 ELEVATION "PREP WITH BLUE DYE" Allergy Intermediate Rash Uncoded 03/27/23 15:24 Home Meds Home Medications Medication Instructions Recorded Confirmed magnesium oxide 400 mg PO BID 07/26/18 03/27/23 omega 2-clf-ypy-fish oil 1,000 mg 1,000 mg PO BID 07/26/18 03/27/23 (120 mg-180 mg) capsule (Fish Oil) cetirizine 10 mg tablet (Zyrtec) 10 mg PO HS 08/22/19 03/27/23 betamethasone valerate 0.1 % 1 applic topical UD PRN PSORIASIS 11/30/19 03/27/23 topical cream blood-glucose meter (Accu-Chek 02/12/21 03/26/23 Garima Plus Meter) cholestyramine (with sugar) 4 gram 4 ea PO DIRECTED PRN Diarrhea 08/26/22 03/27/23 oral powder acetaminophen 650 mg 1,300 mg PO BID 01/20/23 03/27/23 tablet,extended release (Tylenol Arthritis Pain) atorvastatin 40 mg tablet 40 mg PO HS 02/10/23 03/27/23 calcitriol 0.5 mcg capsule 0.25 mcg PO DAILY 10/30/23 11/03/23 Previous Rx's Medication Instructions Recorded prednisone 5 mg tablet 5 mg PO HS #90 tabs 01/07/22 nitroglycerin 0.4 mg/hr 1 patch transdermal QAM #90 ea 03/20/22 transdermal 24 hour patch (Nitro-Dur) nifedipine 90 mg tablet,extended 90 mg PO HS #90 tabs 04/14/22 release duloxetine 60 mg capsule,delayed 60 mg PO QAM #90 caps 05/12/22 release (Cymbalta) levothyroxine 137 mcg capsule 137 mcg PO DAILY #90 caps 08/27/22 albuterol sulfate 90 mcg/actuation 2 puff inhalation Q6H PRN 09/30/22 aerosol inhaler shortness of breath or wheezing #8.5 grams budesonide-formoterol HFA 80 2 puff inhalation BID #3 Inhalers 09/30/22 mcg-4.5 mcg/actuation aerosol inhaler (Symbicort) azelastine 137 mcg (0.1 %) nasal 2 spray intranasal DAILY PRN 11/17/22 spray aerosol ALLERGIES #30 mL blood sugar diagnostic (Accu-Chek #100 ea 12/19/22 Garima Plus test strips) potassium chloride 20 mEq 20 meq PO QAM #90 tabs 01/09/23 tablet,extended release(part/cryst) (Klor-Con M) apixaban 5 mg tablet (Eliquis) 5 mg PO BID #180 tabs 01/15/23 montelukast 10 mg tablet 10 mg PO DAILY #90 tabs 01/19/23 (Singulair) carvedilol 25 mg tablet 25 mg PO BID #60 tabs 01/31/23 lansoprazole 30 mg capsule,delayed 30 mg PO DAILY #90 caps 02/04/23 release lisinopril 10 mg tablet 10 mg PO QAM #30 tabs 02/12/23 bumetanide 2 mg tablet 1 mg (1/2 x 2 mg) PO DAILY #30 tabs 02/17/23 Hospital Bed [facility] ea 03/03/23 Bed) dulaglutide 1.5 mg/0.5 mL 1.5 mg (0.5 mL) subcut ONCE #6 mL 03/03/23 [facility] amiodarone 200 mg tablet 200 mg PO DAILY #30 tabs 03/06/23 levalbuterol HCl 0.63 mg/3 mL 0.63 mg (3 mL) inhalation Q4H PRN 03/16/23 solution for nebulization Cough #90 mL doxycycline monohydrate 100 mg 100 mg PO BID 7 days #14 caps 03/20/23 capsule Results & Data (ED) Vital Signs Vital Signs - 24 hr 03/27/23 12:52 03/27/23 12:52 03/27/23 13:57 Temperature 36.6 C Temperature Source Temporal Artery Scan Pulse Rate 67 Pulse Rate [Apical] 62 Pulse Rhythm [Apical] Respiratory Rate 18 26 H Respiratory Effort / Characteristics Respiratory Depth Normal Respiratory Pattern Blood Pressure 113/72 Blood Pressure [Right Arm] 123/70 Blood Pressure Mean 85 Blood Pressure Mean [Right Arm] 87 Blood Pressure Position [Right Arm] Pulse Oximetry 90 98 Oxygen Delivery Method Room Air Room Air Nasal Cannula Oxygen Flow Rate 4 Sepsis Recent Fever Within 48 Hours No Sepsis New/Unexplained Change in Mental Status N/A Sepsis Action Taken by Nursing No Action Required 03/27/23 13:57 03/27/23 14:10 03/27/23 14:39 Temperature Temperature Source Pulse Rate 69 79 Pulse Rate [Apical] 64 Pulse Rhythm [Apical] Regular Respiratory Rate 26 H 23 Respiratory Effort / Characteristics Respiratory Depth Respiratory Pattern Blood Pressure Blood Pressure [Right Arm] 119/80 Blood Pressure Mean Blood Pressure Mean [Right Arm] 93 Blood Pressure Position [Right Arm] Lying Pulse Oximetry 93 100 Oxygen Delivery Method Nasal Cannula Nasal Cannula Oxygen Flow Rate 4 4 Sepsis Recent Fever Within 48 Hours Sepsis New/Unexplained Change in Mental Status Sepsis Action Taken by Nursing 03/27/23 16:13 03/27/23 17:52 03/27/23 18:27 Temperature Temperature Source Pulse Rate 66 Pulse Rate [Apical] 62 81 Pulse Rhythm [Apical] Respiratory Rate 29 H 22 Respiratory Effort / Characteristics Non-Labored Respiratory Depth Normal Normal Respiratory Pattern Blood Pressure Blood Pressure [Right Arm] 136/75 118/83 Blood Pressure Mean Blood Pressure Mean [Right Arm] 95 94 Blood Pressure Position [Right Arm] Sitting Lying Pulse Oximetry 100 99 Oxygen Delivery Method Nebulizer Nasal Cannula Oxygen Flow Rate 3 Sepsis Recent Fever Within 48 Hours Sepsis New/Unexplained Change in Mental Status Sepsis Action Taken by Nursing 03/27/23 18:37 Temperature Temperature Source Pulse Rate Pulse Rate [Apical] 65 Pulse Rhythm [Apical] Respiratory Rate 20 Respiratory Effort / Characteristics Respiratory Depth Normal Respiratory Pattern Regular Blood Pressure Blood Pressure [Right Arm] 133/84 Blood Pressure Mean Blood Pressure Mean [Right Arm] 100 Blood Pressure Position [Right Arm] Lying Pulse Oximetry 97 Oxygen Delivery Method Nasal Cannula Oxygen Flow Rate 3 Sepsis Recent Fever Within 48 Hours Sepsis New/Unexplained Change in Mental Status Sepsis Action Taken by Nursing Laboratory Data 03/27/23 13:20 03/27/23 14:41 Lab Results 03/27/23 03/27/23 03/27/23 Range/Units 13:20 14:41 16:12 WBC 5.29 (4.8-10.8) K/ul RBC 3.59 L (4.20-5.40) M/uL Hgb 9.2 L (12.0-16.0) g/dl Hct 29.3 L (37.0-47.0) % MCV 81.6 (80.0-100.0) fL MCH 25.6 (25.0-34.0) pg MCHC 31.4 L (32.0-36.0) g/dL RDW Std Deviation 59.5 H (36.4-46.3) fL RDW Coeff of Amrita 20.2 H (11.5-14.5) % Plt Count 314 (130-400) K/uL MPV 10.7 (9.4-12.4) fL Immature Gran % (Auto) 0.2 % Neut % (Auto) 61.6 % Lymph % (Auto) 22.1 % Andrew % (Auto) 8.3 % Eos % (Auto) 7.0 % Baso % (Auto) 0.8 % Neut # (Auto) 3.26 (1.40-6.50) K/uL Lymph # (Auto) 1.17 L (1.20-3.40) K/uL Andrew # (Auto) 0.44 (0.11-0.59) K/uL Eos # (Auto) 0.37 (0.00-0.50) K/uL Baso # (Auto) 0.04 (0.00-0.20) K/uL Immature Gran # (Auto) 0.01 (0.01-0.20) K/uL Polychromasia 1+ Anisocytosis Present Sodium 136 (136-145) mmol/L Potassium TNP 4.0 Chloride 102 (98-107) mmol/L Carbon Dioxide 24 (21-32) mmol/L Anion Gap 10 (3-11) BUN 33 H (6-23) mg/dl Creatinine 3.09 H (0.6-1.2) mg/dl Est Cr Clr Drug Dosing 20.5 ml/min Est GFR ( Amer) 16.2 ml/min Est GFR (Non-Af Amer) 14.0 ml/min BUN/Creatinine Ratio 10.7 (10-20) Glucose 94 (70-99(Fasting)) mg/dl POC Glucose 98 (70-99) mg/dl Calcium 9.3 (8.6-10.3) mg/dl Magnesium 1.9 (1.7-2.4) mg/dl Total Bilirubin 0.6 (0.2-1.0) mg/dl AST TNP 16 ALT 15 (7-52) U/L Alkaline Phosphatase 77 (34-104) U/L Troponin I High Sens 8.2 (0-14) pg/ml B-Natriuretic Peptide 217 H (0-100) pg/ml Total Protein 8.8 H (6.0-8.3) gm/dl Albumin 3.6 (3.4-5.0) gm/dl Globulin 5.2 H (2.5-4.0) gm/dl Albumin/Globulin Ratio 0.7 L (0.9-2) Lipase 70 (11-82) U/L Urine Color Urine Appearance (Clear) Urine pH (4.5-7.5) Ur Specific [place] (1.000-1.030) Urine Protein (Negative) Urine Glucose (UA) (Negative) Urine Ketones (Negative) Urine Blood (Negative) Urine Nitrite (Negative) Urine Bilirubin (Negative) Urine Urobilinogen (Negative) Ur Leukocyte Esterase (Negative) Ur Random Creatinine mg/dl U Random Total Protein (0-11.9) mg/dl Protein/Creatinin Ratio (0-0.2) Adenovirus (PCR) (NotDetected) B. pertussis DNA (PCR) (NotDetected) B.parapertussis DNA PCR (NotDetected) C. pneumoniae DNA (PCR) (NotDetected) Coronavirus OC43 (PCR) (NotDetected) Coronavirus HKU1 (PCR) (NotDetected) Coronavirus 229E (PCR) (NotDetected) SARS-CoV-2 (PCR) (NotDetected) Coronavirus NL63 (PCR) (NotDetected) Human Metapneumovir PCR (NotDetected) Influenza Type A (PCR) (NotDetected) Influenza Type B (PCR) (NotDetected) M. pneumoniae (PCR) (NotDetected) Parainfluenza 1 (PCR) (NotDetected) Parainfluenza 2 (PCR) (NotDetected) Parainfluenza 3 (PCR) (NotDetected) Parainfluenza 4 (PCR) (NotDetected) RSV (PCR) (NotDetected) Entero/Rhino (PCR) (NotDetected) 03/27/23 Range/Units Unknown WBC (4.8-10.8) K/ul RBC (4.20-5.40) M/uL Hgb (12.0-16.0) g/dl Hct (37.0-47.0) % MCV (80.0-100.0) fL MCH (25.0-34.0) pg MCHC (32.0-36.0) g/dL RDW Std Deviation (36.4-46.3) fL RDW Coeff of Amrita (11.5-14.5) % Plt Count (130-400) K/uL MPV (9.4-12.4) fL Immature Gran % (Auto) % Neut % (Auto) % Lymph % (Auto) % Andrew % (Auto) % Eos % (Auto) % Baso % (Auto) % Neut # (Auto) (1.40-6.50) K/uL Lymph # (Auto) (1.20-3.40) K/uL Andrew # (Auto) (0.11-0.59) K/uL Eos # (Auto) (0.00-0.50) K/uL Baso # (Auto) (0.00-0.20) K/uL Immature Gran # (Auto) (0.01-0.20) K/uL Polychromasia Anisocytosis Sodium (136-145) mmol/L Potassium Chloride (98-107) mmol/L Carbon Dioxide (21-32) mmol/L Anion Gap (3-11) BUN (6-23) mg/dl Creatinine (0.6-1.2) mg/dl Est Cr Clr Drug Dosing ml/min Est GFR ( Amer) ml/min Est GFR (Non-Af Amer) ml/min BUN/Creatinine Ratio (10-20) Glucose (70-99(Fasting)) mg/dl POC Glucose (70-99) mg/dl Calcium (8.6-10.3) mg/dl Magnesium (1.7-2.4) mg/dl Total Bilirubin (0.2-1.0) mg/dl AST ALT (7-52) U/L Alkaline Phosphatase (34-104) U/L Troponin I High Sens (0-14) pg/ml B-Natriuretic Peptide (0-100) pg/ml Total Protein (6.0-8.3) gm/dl Albumin (3.4-5.0) gm/dl Globulin (2.5-4.0) gm/dl Albumin/Globulin Ratio (0.9-2) Lipase (11-82) U/L Urine Color Yellow Urine Appearance Clear (Clear) Urine pH 5.0 (4.5-7.5) Ur Specific [place] 1.008 (1.000-1.030) Urine Protein Negative (Negative) Urine Glucose (UA) Negative (Negative) Urine Ketones Negative (Negative) Urine Blood Negative (Negative) Urine Nitrite Negative (Negative) Urine Bilirubin Negative (Negative) Urine Urobilinogen Negative (Negative) Ur Leukocyte Esterase Negative (Negative) Ur Random Creatinine 64.1 mg/dl U Random Total Protein 9.9 (0-11.9) mg/dl Protein/Creatinin Ratio 0.2 (0-0.2) Adenovirus (PCR) Not Detected (NotDetected) B. pertussis DNA (PCR) Not Detected (NotDetected) B.parapertussis DNA PCR Not Detected (NotDetected) C. pneumoniae DNA (PCR) Not Detected (NotDetected) Coronavirus OC43 (PCR) Not Detected (NotDetected) Coronavirus HKU1 (PCR) Not Detected (NotDetected) Coronavirus 229E (PCR) Not Detected (NotDetected) SARS-CoV-2 (PCR) Not Detected (NotDetected) Coronavirus NL63 (PCR) Not Detected (NotDetected) Human Metapneumovir PCR Not Detected (NotDetected) Influenza Type A (PCR) Not Detected (NotDetected) Influenza Type B (PCR) Not Detected (NotDetected) M. pneumoniae (PCR) Not Detected (NotDetected) Parainfluenza 1 (PCR) Not Detected (NotDetected) Parainfluenza 2 (PCR) Not Detected (NotDetected) Parainfluenza 3 (PCR) Not Detected (NotDetected) Parainfluenza 4 (PCR) Not Detected (NotDetected) RSV (PCR) Not Detected (NotDetected) Entero/Rhino (PCR) Not Detected (NotDetected) Administered Medications Insulin Aspart (Insulin Aspart Per Unit Charge) 0 units SC ACHS CAROL Stop: 04/26/23 16:29 Last Admin: 03/27/23 19:13 Dose: Not Given Documented By: MMG Co-signed By: JR Discontinued Medications Albuterol (Albut/Ipratrop 3mg/0.5mg Neb 3 Ml Vial) 3 ml NEB NOW STA; Protocol Stop: 03/27/23 16:00 Last Admin: 03/27/23 16:12 Dose: 3 ml Documented By: ANGELES Bumetanide 2 mg/ Syringe 8 mls @ 4 mls/min IV ONE ONE Stop: 03/27/23 15:08 Last Admin: 03/27/23 16:04 Dose: 4 mls/min Documented By: ANGELES Nitroglycerin (Nitroglycerin 0.4 Mg/Hr Patch) 1 patch TD NOW STA Stop: 03/27/23 18:46 Last Admin: 03/27/23 19:29 Dose: Not Given Documented By: MMG Prednisone (Prednisone 5 Mg Tab) 5 mg PO NOW ONE Stop: 03/27/23 16:46 Last Admin: 03/27/23 17:55 Dose: 5 mg Documented By: ANGELES Imaging Data Radiologist's Impression: Chest X-Ray 03/27/23 13:54 XR chest 1V portable CLINICAL HISTORY: Chest pain, nonspecific. COMPARISON STUDY: Chest radiograph March 18, 2023. FINDINGS: A left subclavian pacer/AICD is in place. There is no pneumothorax. Moderate bilateral pleural effusions have increased since prior exam. There are associated bibasilar opacities. Pulmonary edema persists. IMPRESSION: 1. Increase in moderate bilateral pleural effusions with associated bibasilar opacities. 2. Cardiomegaly with mild interstitial pulmonary edema. ACT 112: Negative or not required by law. Electronically signed by: Alfred Avendaño M.D. 03/27/2023 2:41 PM Discharge Plan Visit Data Chief Complaint: Chest Pain Stated Complaint: SOB, CHEST PAIN ED Provider: Kirk Vincent Discharge Problem: Hypoxia, Pleural effusion, Shortness of breath, CHF (congestive heart failure) Forms Stand Alone Forms: [facility] [employer] Prescriptions Prescriptions: No Action prednisone 5 mg tablet 5 mg PO HS Qty: 90 3RF nifedipine 90 mg tablet extended release 90 mg PO HS Qty: 90 3RF duloxetine [Cymbalta] 60 mg capsule,delayed release(DR/EC) 60 mg PO QAM Qty: 90 3RF levothyroxine 137 mcg capsule 137 mcg PO DAILY Qty: 90 3RF azelastine 137 mcg (0.1 %) aerosol,spray 2 spray INTRANASAL DAILY PRN (Reason: ALLERGIES) Qty: 30 0RF (DME) Accu-Chek Garima Plus test strp Strip See Rx Instructions .ROUTE .MEDSUPPLY Qty: 100 3RF Rx Instructions: Check blood sugars once PRN potassium chloride [Klor-Con M20] 20 mEq tablet,ER particles/crystals 20 meq PO QAM Qty: 90 3RF Eliquis 5 mg tablet 5 mg PO BID Qty: 180 3RF montelukast [Singulair] 10 mg tablet 10 mg PO DAILY Qty: 90 3RF bumetanide 2 mg tablet 1 mg PO DAILY Qty: 30 0RF (DME) Hospital Bed [facility] [place] See Rx Instructions .Route Qty: 1 0RF Rx Instructions: Semi-electric hospital bed with mattress and side rails levalbuterol HCl 0.63 mg/3 mL solution for nebulization 0.63 mg INHALATION Q4H PRN (Reason: Cough) Qty: 90 0RF doxycycline monohydrate 100 mg capsule 100 mg PO BID 7 Days Qty: 14 0RF Rx Instructions: STARTED 03/20/23 FOR 7 DAYS lansoprazole 30 mg capsule,delayed release(DR/EC) 30 mg PO DAILY Qty: 90 3RF calcitriol 0.5 mcg capsule 0.25 mcg PO DAILY (DME) blood-glucose meter [Accu-Chek Garima Plus Meter] [facility] See Rx Instructions .ROUTE .MEDSUPPLY Rx Instructions: Used to check blood sugars once PRN nitroglycerin [Nitro-Dur] 0.4 mg/hr patch 24 hour 1 patch TRANSDERMAL QAM Qty: 90 3RF Rx Instructions: remove after 12 hours cholestyramine (with sugar) 4 gram powder 4 ea PO DIRECTED PRN (Reason: Diarrhea) Trulicity 1.5 mg/0.5 mL pen injector 1.5 mg subcut ONCE Qty: 6 3RF Rx Instructions: Inject 1.5 mg into the abdomen once weekly. albuterol sulfate 90 mcg/actuation HFA aerosol inhaler 2 puff inhalation Q6H PRN (Reason: shortness of breath or wheezing) Qty: 8.5 2RF budesonide-formoterol [Symbicort] 80-4.5 mcg/actuation HFA aerosol inhaler 2 puff inhalation BID Qty: 3 3RF amiodarone 200 mg tablet 200 mg PO DAILY Qty: 30 2RF cetirizine [Zyrtec] 10 mg Tablet 10 mg PO HS betamethasone valerate 0.1 % cream 1 applic TOPICAL UD PRN (Reason: PSORIASIS ) Rx Instructions: Apply to areas of the arms twice daily for up to 2 weeks as needed for flaring. omega 8-mpd-rkc-fish oil [Fish Oil] 1,000 mg (120 mg-180 mg) Capsule 1,000 mg PO BID magnesium oxide 400 mg magnesium Tablet 400 mg PO BID acetaminophen [Tylenol Arthritis Pain] 650 mg Tablet Extended Release 1,300 mg PO BID carvedilol 25 mg tablet 25 mg PO BID Qty: 60 1RF Rx Instructions: must administer with a meal/food atorvastatin 40 mg tablet 40 mg PO HS lisinopril 10 mg Tablet 10 mg PO QAM Qty: 30 0RF Hold Instructions: JULIO Referrals Referrals: Jigna Jovel DO [Primary Care Provider] -
[2023-03-27 14:32] LABS: Anisocytosis Present; Polychromasia 1+
[2023-03-27 14:36] LABS: Alanine Aminotransferase 15 U/L (7-52); Albumin Globulin Ratio 0.7 (0.9-2); Albumin Level 3.6 gm/dl (3.4-5.0); Alkaline Phosphatase 77 U/L (34-104); Anion Gap 10 (3-11); BUN Creatinine Ratio 10.7 (10-20); Bilirubin,Total 0.6 mg/dl (0.2-1.0); Blood Urea Nitrogen 33 mg/dl (6-23); Calcium 9.3 mg/dl (8.6-10.3); Carbon Dioxide 24 mmol/L (21-32); Chloride 102 mmol/L (98-107); Creatinine Clr Calc Pharmacy 20.5 ml/min; Est GFR (African American) 16.2 ml/min; Globulin 5.2 gm/dl (2.5-4.0); Glucose 94 mg/dl (70-99(Fasting)); Lipase 70 U/L (11-82); Sodium 136 mmol/L (136-145); Total Protein 8.8 gm/dl (6.0-8.3); Troponin I High Sensitivity 8.2 pg/ml (0-14)
--- NOTE | 2023-03-27 14:42 | XRay Report ---
XR chest 1V portable CLINICAL HISTORY: Chest pain, nonspecific. COMPARISON STUDY: Chest radiograph March 18, 2023. FINDINGS: A left subclavian pacer/AICD is in place. There is no pneumothorax. Moderate bilateral pleu ral effusions have increased since prior exam. There are associated bibasilar opacities. Pulmonary ed tiffanie persists. IMPRESSION: 1. Increase in moderate bilateral pleural effusions with associated bibasilar opacities. 2. Cardiomegaly with mild interstitial pulmonary edema. ACT 112: Negative or not required by law. Electronically signed by: Alfred Avendaño M.D. 03/27/2023 2:41 PM
[2023-03-27] MEDS ORDERED: BUMETANIDE 2 MG in SYRINGE 0 ML IV ONE (15:07)
--- NOTE | 2023-03-27 15:38 | History & Physical Report ---
Date of Service March 27, 2023 Assessment & Plan (1) Hypoxia: Plan: -Admit to med/tele on pulse oximetry -Currently stable on 2L NC -At this time the etiology of the patient hypoxia and SOB is likely multifactorial including CHF exacerbation, progression of her CKD causing volume overload, and mild asthma exacerbation -Patient's CXR today shows worsening BL pleural effusions compared to CXR on 03/18, no sign of consolidation on imaging or exam today to suggest ongoing pneumonia -She has noticed increased swelling in her BL legs and abdomen, which is not common for her even with previous CHF exacerbations in the past, she also did not experience significant diuresis with increased PO bumex dosing over the past 48 hours, and has wheezing on exam with chest tightness similar to her normal asthma exacerbations -BNP, full respiratory biofire, and UA with protein:Cr ration have been ordered on admission, will FU -Patient has been taking her eliquis as prescribed without recent missed doses, has symmetrical swelling in the BL LE's, and has been hemodynamically stable, low suspicion for PE at this time -S/P 2mg IV bumex in the ED, will conitnue with 2mg IV daily for now to avoid over-diuresis at this time -Dry weight is normally 225 lbs, is 226.5 today, monitor daily weights -Monitor intake/output q6h -Prn O2 to keep SpO2 at or above 94%, incentive spirometry and flutter therapy -Will give her last dose of PO doxy tonight but hold further abx for now as she does not appear to have a pneumonia at this time -Home eliquis for DVT PPX, will order BL JAQUELINE's as well to help with swelling -HH/DMII diet with 2gm sodium and 1500 mL fluid restrictions -AM CBC, BMP, Mag, PT/INR (2) CHF exacerbation: Plan: -Has been admitted multiple times over the past 2 months for CHF exacerbations -Continue IV diuresis -Will FU with BNP, biofire, and UA for further evaluation (3) Asthma: Plan: -Patient responded well to DuoNeb given on admission, symptoms improved and she is much less wheezy on Auscultation -Will hold steroids for now and continue Scheduled DuoNebs; if she is not significantly improving could consider adding IV steroids -Continue home budesonide-formoterol; will use Nebulized forms while admitted -Incentive spirometry/flutter therapy -Will give 2gm IV mag sulfate on admission if mag level is stable (4) Chest tightness: Plan: -Patient has been experiencing intermittent chest tightness/pressure over the past week -Confirms this feels similar to her normal asthma symptoms -Wheezing noted BL on exam today -Likely due to both asthma and BL moderate pleural effusions -ECG is without acute ST segment or T-wave changes, high sen trop is negative, low suspicion for ACS at this time -Low suspicion for PE, see hypoxia -Will give a DuoNeb treatment now and obtain mag level, if stable will give 2gm IV mag sulfate as well -If she has improvement with DuoNeb will scheduled additional treatments -Continue to treat BL pleural effusions with IV bumex (5) Type II diabetes mellitus: Plan: -Hold Trulicity -Monitor BSG ACHS, goal is 110-140 -Tolerated sliding scale alone last admission -Will start CF of 50 ACHS, hold CR to avoid hypoglycemia for now -HH/DMII diet (6) CKD (chronic kidney disease): Plan: -Cr at 3.09 today -Patient has been recovering from JULIO with cr in the 4's last month due to 2mg PO bumex outpatient with lisinopril use -Will FU on UA with Protein/Cr ration for further evaluation -Monitor daily renal function, daily weights, avoid nephrotoxic agents (7) Psoriasis: Plan: -Patient has been taking 5 mg Prednisone HS for years for her Psoriasis with arthritis -Tells me she has always had trouble sleeping, never thought to associate insomnia with her Prednisone -Will adjust her dosing to daily at 0900 tomorrow, monitor for improvement in sleep (8) Hypothyroidism: Plan: -Continue levothyroxine (9) Paroxysmal atrial fibrillation: Plan: -Stable; S/P ICD placement -Continue Carvedilol, amiodarone, and Eliquis (10) Acute respiratory failure with hypoxia: Plan The patient was discussed with Dr. 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 The patient has multiple admissions over the past 3 months for recurrent CHF exacerbations. In the ED today she was noted to be hypoxic with SpO2 in the low 90's on RA but otherwise stable. Labs were significant for a lymphocyte count of 1.17, stable cr of 3.09 (recovering from JULIO on last admission), and negative high sen trop. Chest xray was read as "1. Increase in moderate bilateral pleural effusions with associated bibasilar opacities. 2. Cardiomegaly with mild interstitial pulmonary edema.". Prior to admission the patient was given 2mg IV Bumex. Per chart review, the patient was recently seen in the Nephrology Clinic with Dr. Stevenson on 03/23/23. Per his note, the patient is still recovering from an JULIO during her last admission at [facility] from 02/10-02/12. He instructed her to increase her PO bumex from 1mg PO daily to 2mg PO daily x 2 days for increased swelling. He also noted that she is scheduled to see heme/onc next week for UEP with two monoclonal bands and low kappa/lambda ratio. Per her last Heart Failure clinic note on 02/19, her dry weight is supposed to be 225 lbs. At the time of the exam the patient was sitting in no acute distress. I attempted to wean her to RA but she desaturated into the 80's, she remained stable on 2L NC. She states that she has been experiencing increased SOB, non- productive cough, chest tightness similar to her normal asthma symptoms, and increased LE swelling over the past week. She saw her PCP who obtained a chest xray which showed small BL pleural effusions and underlying atelectasis. Her PCP prescribed a 7 day course of Doxycycline which she has been taking as presc ribed. Today is day #7, her symptoms have not improved with Doxycyline. She confirms that she increased her PO Bumex from 1gm daily to 2 mg daily over the past 48 hours but denies a significant increase in urine output. She has been sticking to her low sodium diet with fluid restriction as recommended. She has been using her breathing treatments at home which provide temporary relief. She feels like her breathing has improved a little since being placed on O2 in the ED. She confirms that she is still a Full Code. Please refer to Dr. Alaniz's attestation for any changes to the treatment plan Allergies Allergy/AdvReac Type Severity Reaction Status Date / Time codeine Allergy Severe Anaphylaxis Verified 03/27/23 15:24 furosemide Allergy Severe SEVERE Verified 03/27/23 15:24 RASH, PT REPORTS A CROSS ALLERGY WITH SULFA celecoxib [From Celebrex] Allergy Intermediate RASH Verified 03/27/23 15:24 cephalexin [From Keflex] Allergy Intermediate Rash Verified 03/27/23 15:24 hydrocodone Allergy Intermediate Rash Verified 03/27/23 15:24 Iodinated Contrast Media Allergy Intermediate RASH Verified 03/27/23 15:24 nickel Allergy Intermediate Rash Verified 03/27/23 15:24 oxycodone Allergy Intermediate Rash Verified 03/27/23 15:24 Sulfa (Sulfonamide Allergy Intermediate RASH TO Verified 03/27/23 15:24 Antibiotics) SULFA DRUGS tetracycline Allergy Intermediate RASH Verified 03/27/23 15:24 capsaicin AdvReac Intermediate CREATINE Verified 03/27/23 15:24 ELEVATION diclofenac AdvReac Intermediate CREATINE Verified 03/27/23 15:24 ELEVATION propylene glycol AdvReac Intermediate CREATINE Verified 03/27/23 15:24 ELEVATION "PREP WITH BLUE DYE" Allergy Intermediate Rash Uncoded 03/27/23 15:24 Home Medications Medication Instructions Recorded Confirmed Type magnesium oxide 400 mg PO BID 07/26/18 03/27/23 History omega 1-tzc-eby-fish oil 1,000 mg 1,000 mg PO BID 07/26/18 03/27/23 History (120 mg-180 mg) capsule (Fish Oil) cetirizine 10 mg tablet (Zyrtec) 10 mg PO HS 08/22/19 03/27/23 History betamethasone valerate 0.1 % 1 applic topical UD PRN PSORIASIS 11/30/19 03/27/23 History topical cream blood-glucose meter (Accu-Chek 02/12/21 03/26/23 History Garima Plus Meter) prednisone 5 mg tablet 5 mg PO HS #90 tabs 01/07/22 03/27/23 Rx nitroglycerin 0.4 mg/hr 1 patch transdermal QAM #90 ea 03/20/22 03/27/23 Rx transdermal 24 hour patch (Nitro-Dur) nifedipine 90 mg tablet,extended 90 mg PO HS #90 tabs 04/14/22 03/27/23 Rx release duloxetine 60 mg capsule,delayed 60 mg PO QAM #90 caps 05/12/22 03/27/23 Rx release (Cymbalta) cholestyramine (with sugar) 4 gram 4 ea PO DIRECTED PRN Diarrhea 08/26/22 03/27/23 History oral powder levothyroxine 137 mcg capsule 137 mcg PO DAILY #90 caps 08/27/22 03/27/23 Rx albuterol sulfate 90 mcg/actuation 2 puff inhalation Q6H PRN 09/30/22 03/27/23 Rx aerosol inhaler shortness of breath or wheezing #8.5 grams budesonide-formoterol HFA 80 2 puff inhalation BID #3 Inhalers 09/30/22 03/27/23 Rx mcg-4.5 mcg/actuation aerosol inhaler (Symbicort) azelastine 137 mcg (0.1 %) nasal 2 spray intranasal DAILY PRN 11/17/22 03/27/23 Rx spray aerosol ALLERGIES #30 mL blood sugar diagnostic (Accu-Chek #100 ea 12/19/22 03/26/23 Rx Garima Plus test strips) potassium chloride 20 mEq 20 meq PO QAM #90 tabs 01/09/23 03/27/23 Rx tablet,extended release(part/cryst) (Klor-Con M) apixaban 5 mg tablet (Eliquis) 5 mg PO BID #180 tabs 01/15/23 03/27/23 Rx montelukast 10 mg tablet 10 mg PO DAILY #90 tabs 01/19/23 03/27/23 Rx (Singulair) acetaminophen 650 mg 1,300 mg PO BID 01/20/23 03/27/23 History tablet,extended release (Tylenol Arthritis Pain) carvedilol 25 mg tablet 25 mg PO BID #60 tabs 01/31/23 03/27/23 Rx lansoprazole 30 mg capsule,delayed 30 mg PO DAILY #90 caps 02/04/23 03/27/23 Rx release atorvastatin 40 mg tablet 40 mg PO HS 02/10/23 03/27/23 History lisinopril 10 mg tablet 10 mg PO QAM #30 tabs 02/12/23 03/27/23 Rx bumetanide 2 mg tablet 1 mg (1/2 x 2 mg) PO DAILY #30 tabs 02/17/23 03/27/23 Rx Hospital Bed Homecare (Hospital #1 ea 03/03/23 03/26/23 Rx Bed) dulaglutide 1.5 mg/0.5 mL 1.5 mg (0.5 mL) subcut ONCE #6 mL 03/03/23 03/27/23 Rx subcutaneous pen injector (Trulicity) amiodarone 200 mg tablet 200 mg PO DAILY #30 tabs 03/06/23 03/27/23 Rx levalbuterol HCl 0.63 mg/3 mL 0.63 mg (3 mL) inhalation Q4H PRN 03/16/23 03/27/23 Rx solution for nebulization Cough #90 mL doxycycline monohydrate 100 mg 100 mg PO BID 7 days #14 caps 03/20/23 03/27/23 Rx capsule calcitriol 0.5 mcg capsule 0.25 mcg PO DAILY 03/23/23 03/27/23 History Past Med/Surg History Medical History Pulmonary edema Cardiomyopathy Non-ST elevation (NSTEMI) myocardial infarction Ventricular tachycardia Tachy-faisal syndrome Elevated troponin Atrial fibrillation with RVR Sialoadenitis, unspecified Allergic rhinitis SI joint arthritis Abnormal PFT Mild persistent asthma Active asthma Sinus congestion Chronic dyspnea On anticoagulant therapy Paroxysmal atrial fibrillation Iron deficiency anemia Atrial fibrillation Varicose veins of legs Seasonal allergies Chronic steroid use Esophageal dysmotility Restless leg syndrome Hyperlipidemia Hearing loss, right Hiatal hernia 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 current use of systemic steroids Obesity Polyneuropathy Tinnitus of right ear Gastric polyp Type II diabetes mellitus (Unknown) Esophageal spasm Schatzki's ring HTN (hypertension) Essential hypertension Peptic ulcer disease Irritable bowel syndrome Hypothyroidism Spinal meningioma CKD (chronic kidney disease) stage 4, GFR 15-29 ml/min Psoriatic arthropathy GERD (gastroesophageal reflux disease) Osteoarthritis, knee Surgical History History of laparoscopy (~06/2020) History of colectomy (~06/2020) History of total left hip arthroplasty History of total hip arthroplasty History of dilatation and curettage History of tooth extraction History of tonsillectomy and adenoidectomy History of cardiac cath History of arthroscopy Status post total replacement of left shoulder History of colonoscopy History of esophagogastroduodenoscopy (EGD) History of total abdominal hysterectomy and bilateral salpingo-oophorectomy History of arthroscopy of right shoulder History of total knee arthroplasty History of foot surgery History of cholecystectomy History of cataract extraction History of lumbar fusion H/O thyroidectomy Family History Mother Arthritis Hypertension Father Lung cancer Hypertension Family/Other Family hx of colon cancer Unknown Allergies Breast cancer Hypertension Brother Cancer Heart disease Aunt Colorectal cancer Other No family history of adverse response to anesthesia No family history of bleeding disorder Denies family history of Ovarian cancer Prostate cancer Diabetes Hearing loss Myocardial infarction Stroke Asthma Social History Smoking Status: Former smoker Tobacco Type: Cigarettes Age Quit Using Tobacco: 26; Second Hand Exposure: No; Do You Dip or Chew Tobacco: No; Hx Alcohol Use: No Hx Substance Use: No Preferred Language: Romansh Communication Ability: Effective Communication Ability Comment: DEAF RIGHT EAR Visual Impairment: Limited Hearing Ability: Hard of Hearing Machine Room Engineer Required: No Beliefs That Will Affect Care: None marital status: / Current Living Situation: Family Current Living Situation Comment: [place] current occupational status: retired current occupation: Retired How many Children do You have: 0 Feels Safe at Home: Yes Childhood Exposure to Second-Hand Smoke: Yes caffeine: Yes Dental Care, Regularly: Yes Physical Activity Frequency: Does not Exercise Physical Activity Frequency Comment: Hip problems Seatbelt Use: always Sunscreen Use: No Assistive Devices: Cane, Nebulizer and Walker Physical Exam Physical Exam: Physical Exam: General: In no acute distress, stated age, chronically ill-appearing but non- toxic HEENT: Normocephalic, atraumatic, no scleral icterus, pupils around round, symmetrical, and reactive to light, moist mucus membranes, trachea midline, no thyromegaly Chest/Pulm: No respiratory distress, symmetrical chest expansion, decreased breath sounds in the BL lower lung osman with scattered crackles and expiratory wheezing in the BL upper lung osman Cardiac: RRR, no murmurs noted Abdomen: Negative for ascites and bruising, normoactive bowel sounds, soft, non-tender to palpation throughout Musculoskeletal: Symmetrical and without signs of acute trauma, upper and lower extremities with full ROM, no atrophy, spasticity, or flaccidity Extremities: Radial, dorsalis pedis, and posterior tibial pulses are intact and symmetrical, 2-3+ pitting edema noted in the BL LE's Skin: Warm, dry, no rashes , lesions, or scars noted Neuro: Alert and oriented to person, place, month, year, and president, no focal defects,no tremors noted Psych: No acute distress, calm and cooperative during the exam Results & Data Results & Data Vital Signs (Past 12 Hours) Vital Signs Temp Pulse Pulse Resp BP BP Pulse Ox 03/27/23 14:39 64 23 119/80 100 03/27/23 14:10 79 03/27/23 13:57 69 26 H 93 03/27/23 13:57 62 26 H 123/70 98 03/27/23 12:52 03/27/23 12:52 36.6 C 67 18 113/72 90 O2 Del Method O2 Flow Rate 03/27/23 14:39 Nasal Cannula 4 03/27/23 14:10 03/27/23 13:57 Nasal Cannula 4 03/27/23 13:57 Nasal Cannula 4 03/27/23 12:52 Room Air 03/27/23 12:52 Room Air Laboratory Results Abnormal lab results 03/27/23 Range/Units 13:20 RBC 3.59 L (4.20-5.40) M/uL Hgb 9.2 L (12.0-16.0) g/dl Hct 29.3 L (37.0-47.0) % MCHC 31.4 L (32.0-36.0) g/dL RDW Std Deviation 59.5 H (36.4-46.3) fL RDW Coeff of Amrita 20.2 H (11.5-14.5) % Lymph # (Auto) 1.17 L (1.20-3.40) K/uL BUN 33 H (6-23) mg/dl Creatinine 3.09 H (0.6-1.2) mg/dl Total Protein 8.8 H (6.0-8.3) gm/dl Globulin 5.2 H (2.5-4.0) gm/dl Albumin/Globulin Ratio 0.7 L (0.9-2) Diagnostic Findings Chest X-Ray 03/27/23 13:54 XR chest 1V portable CLINICAL HISTORY: Chest pain, nonspecific. COMPARISON STUDY: Chest radiograph March 18, 2023. FINDINGS: A left subclavian pacer/AICD is in place. There is no pneumothorax. Moderate bilateral pleural effusions have increased since prior exam. There are associated bibasilar opacities. Pulmonary edema persists. IMPRESSION: 1. Increase in moderate bilateral pleural effusions with associated bibasilar opacities. 2. Cardiomegaly with mild interstitial pulmonary edema. ACT 112: Negative or not required by law. Electronically signed by: Alfred Avendaño M.D. 03/27/2023 2:41 PM ECG Additional Comments: AV dual-paced rhythm Abnormal ECG When compared with ECG of 10-FEB-2023 08:55, Vent. rate has increased BY 8 BPM Code Status & VTE Plan Code Status Full code VTE Prophylaxis Plan VTE Prophylaxis will be ordered: Yes Supervising Physician Co-Signing Physician Notes I personally saw and examined the patient. I verified all ellis points and agree with Mike Griffith PA-C with the following exceptions and/or additions: 77 year old female presents to the ER with shortness of breath and hypoxia. She feels similar to her last admission when she was here with congestive heart failure although has not noticed much weight gain but has noticed increased leg swelling. Wheezing. Reported improvement last admission with increase diuretics. No fever or chills. O/E A&Ox3, HS RRR, no murmurs, Chest, accessory muscle use, mild expiratory wheezing, bibasal crackles, Abdo SNT, no CVA tenderness A/P Acute respiratory failure with hypoxia - will treat initially as CHF and monitor Cr. IV Bumex 2mg appears with good UO in the ER therefore will continue on this dose. If no significant improvement she has been wheezing and notable improvement with nebulizers therefore this may be more of an asthma exacerbation but will defer steroids on admission given history of HERO and alternative etiology suspected. BNP however does not fit with her CHF worse and CXR is mostly worsening effusions rather than Acute on chronic HF with reduced EF Possible asthma exacerbation - avoid steroids on admission for above reasoning, switch maintenance inhaler for budesonide/formoterol neb If not improving can also consider pulm consult for b/l thoracentesis of pleural effusions as these appear to be relatively new since mid January with no prior diagnostic evaluation PG Care Time/CCT Total # of Minutes Spent Total Time Spent with Patient: Total time spent is greater than 50% in coordination of care (as documented) at patient's floor/unit and/or counseling patient: Coding [place] [address] INT INP/OBS CARE 3/75MIN Patient Type Established Medical Decision Making Moderate Complexity Diagnoses Hypoxia R09.02 CHF exacerbation I50.9 Asthma J45.909 Chest tightness R07.89 Type 2 diabetes mellitus with stage 4 chronic kidney disease, without long-term current use of insulin E11.22; N18.4 Chronic kidney disease stage: stage 4 (severe) 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 complication detail: with chronic kidney disease 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 complication status: with kidney complications 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 insulin use: without 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 use CKD (chronic kidney disease) N18.9 Psoriasis L40.9 Hypothyroidism E03.9 Paroxysmal atrial fibrillation I48.0 Acute respiratory failure with hypoxia J96.01 (5) Type II diabetes mellitus Chronic kidney disease stage: stage 4 (severe) 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 complication detail: with chronic kidney disease 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 complication status: with kidney complications 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 senior care insulin use: without 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 use Qualified Code(s): E11.22 - Type 2 diabetes mellitus with diabetic chronic kidney disease; N18.4 - Chronic kidney disease, stage 4 (severe)
[2023-03-27 15:42] LABS: Appearance Urine Clear (Clear); Bilirubin Urine Negative (Negative); Blood Urine Negative (Negative); Color Urine Yellow; Glucose Urine UA Negative (Negative); Ketones Urine Negative (Negative); Leukocyte Esterase Urine Negative (Negative); Nitrite Urine Negative (Negative); Protein Urine Negative (Negative); Specific Gravity Urine 1.008 (1.000-1.030); Urobilinogen Urine Negative (Negative)
[2023-03-27] MEDS ORDERED: ALBUT/IPRATROP 3MG/0.5MG NEB 3 ML VIAL NEB STA (15:59)
[2023-03-27] MEDS ORDERED: DEXTROSE 50% 50 ML SYRINGE IV PRN (16:02)
[2023-03-27] MEDS ORDERED: GLUCOSE 40% GEL 15 GM TUBE PO PRN (16:02)
[2023-03-27] MEDS ORDERED: GLUCOSE 10 TAB/TUBE PO PRN (16:02)
[2023-03-27] MEDS ORDERED: CARBOHYDRATES FOR HYPOGLYCEMIA PO PRN (16:02)
[2023-03-27] MEDS ORDERED: GLUCAGON FOR INJ 1 MG VIAL SQ PRN (16:02)
[2023-03-27 16:36] LABS: Creatinine Urine Random 64.1 mg/dl; Protein Creatinine Ratio Urine 0.2 (0-0.2); Total Protein Urine Random 9.9 mg/dl (0-11.9)
[2023-03-27] MEDS ORDERED: predniSONE 5 MG TAB PO ONE (16:45)
[2023-03-27 16:51] LABS: Adenovirus PCR Not Detected (NotDetected); Bordetella parapertussis PCR Not Detected (NotDetected); Bordetella pertussis PCR Not Detected (NotDetected); Chlamydia pneumoniae PCR Not Detected (NotDetected); Coronavirus 229E PCR Not Detected (NotDetected); Coronavirus CoV-2 (COVID19)PCR Not Detected (NotDetected); Coronavirus HKU1 PCR Not Detected (NotDetected); Coronavirus NL63 PCR Not Detected (NotDetected); Coronavirus OC43PCR Not Detected (NotDetected); Human Metapneumovirus PCR Not Detected (NotDetected); Influenza A PCR Not Detected (NotDetected); Influenza B PCR Not Detected (NotDetected); Mycoplasma pneumoniae PCR Not Detected (NotDetected); Parainfluenza Virus 1 PCR Not Detected (NotDetected); Parainfluenza Virus 2 PCR Not Detected (NotDetected); Parainfluenza Virus 3 PCR Not Detected (NotDetected); Parainfluenza Virus 4 PCR Not Detected (NotDetected); Respiratory Syncytial VirusPCR Not Detected (NotDetected); Rhinovirus/Enterovirus PCR Not Detected (NotDetected)
[2023-03-27] MEDS ORDERED: NITROGLYCERIN 0.4 MG/HR PATCH TD STA (18:45)
[2023-03-27 19:01] LABS: Magnesium 1.9 mg/dl (1.7-2.4)
[2023-03-27] MEDS: INSULIN ASPART PER UNIT CHARGE SC SCH ×2 (19:13→23:17)
--- NOTE | 2023-03-27 20:36 | Electrocardiogram Report ---
Test Reason : Blood Pressure : / mmHG Vent. Rate : 068 BPM Atrial Rate : 068 BPM P-R Int : 176 ms QRS Dur : 124 ms QT Int : 416 ms P-R-T Axes : 000 000 178 degrees QTc Int : 442 ms AV dual-paced rhythm Abnormal ECG When compared with ECG of 10-FEB-2023 08:55, Vent. rate has increased BY 8 BPM Confirmed by Lukasz Schilling ([id number]) on 03/27/2023 8:36:38 PM Referred By: REFERRED SELF Confirmed By:Jorge Schilling
[2023-03-27] MEDS ORDERED: LEVALBUTEROL HCL 0.63 MG/3 ML NEB INH PRN (20:42)
[2023-03-27] MEDS ORDERED: DOXYCYCLINE HYCLATE 100 MG CAP PO SCH (21:45)
[2023-03-27] MEDS: FORMOTEROL 20 MCG/2 ML VIAL NEB SCH (23:04)
[2023-03-27] MEDS: ALBUT/IPRATROP 3MG/0.5MG NEB 3 ML VIAL NEB SCH (23:04)
[2023-03-27] MEDS: BUDESONIDE 0.5 MG/2 ML VIAL (PULMICORT) NEB SCH (23:05)
[2023-03-27] MEDS: ACETAMINOPHEN 500 MG TAB PO SCH (23:14)
[2023-03-27] MEDS: carvediloL 25 MG TAB PO SCH (23:14)
[2023-03-27] MEDS: APIXABAN 5 MG TABLET PO SCH (23:15)
[2023-03-27] MEDS: ATORVASTATIN 40 MG TAB PO SCH (23:15)
[2023-03-27] MEDS: MAGNESIUM OXIDE 400 MG TAB PO SCH (23:15)
[2023-03-27] MEDS: NIFEdipine EXTENDED REL 30 MG TABCR PO SCH (23:16)
[2023-03-28 05:44] LABS: Basophils # (auto) 0.03 K/uL (0.00-0.20); Basophils % (auto) 0.7 %; Eosinophils # (auto) 0.17 K/uL (0.00-0.50); Hemoglobin 8.7 g/dl (12.0-16.0); Immature Granulocytes # (auto) 0.01 K/uL (0.01-0.20); Immature Granulocytes % (auto) 0.2 %; Lymphocytes # (auto) 1.07 K/uL (1.20-3.40); Mean Corpuscular Hemoglobin 25.6 pg (25.0-34.0); Mean Corpuscular Hgb Conc 31.1 g/dL (32.0-36.0); Mean Corpuscular Volume 82.4 fL (80.0-100.0); Mean Platelet Volume 10.5 fL (9.4-12.4); Monocytes # (auto) 0.37 K/uL (0.11-0.59); Monocytes % (auto) 8.6 %; Neutrophils # (auto) 2.63 K/uL (1.40-6.50); Neutrophils % (auto) 61.5 %; Platelet Count 293 K/uL (130-400); RDW Coefficient of Variation 19.9 % (11.5-14.5); RDW Standard Deviation 59.2 fL (36.4-46.3); White Blood Count 4.28 K/ul (4.8-10.8)
[2023-03-28 05:55] LABS: BUN Creatinine Ratio 10.1 (10-20); Calcium 8.8 mg/dl (8.6-10.3); Est GFR (African American) 15.8 ml/min; Est GFR (Non-African American) 13.6 ml/min; Magnesium 1.8 mg/dl (1.7-2.4); Potassium 3.8 mmol/L (3.5-5.1)
[2023-03-28] MEDS: LEVOTHYROXINE SODIUM 137 MCG TABLET PO SCH (06:00)
[2023-03-28] MEDS: ACETAMINOPHEN 500 MG TAB PO SCH ×2 (06:00→22:06)
[2023-03-28 06:40] LABS: INR 1.3 (0.9-1.1); Prothrombin Time 14.1 Seconds (9.0-12.0)
[2023-03-28] MEDS: FORMOTEROL 20 MCG/2 ML VIAL NEB SCH ×2 (07:27→19:28)
[2023-03-28] MEDS: BUDESONIDE 0.5 MG/2 ML VIAL (PULMICORT) NEB SCH ×2 (07:27→19:35)
[2023-03-28] MEDS: ALBUT/IPRATROP 3MG/0.5MG NEB 3 ML VIAL NEB SCH (07:27)
[2023-03-28] MEDS: AMIODARONE 200 MG TAB PO SCH (08:23)
[2023-03-28] MEDS: MAGNESIUM OXIDE 400 MG TAB PO SCH ×2 (08:23→22:06)
[2023-03-28] MEDS: CALCITRIOL 0.25 MCG CAPSULE PO SCH (08:23)
[2023-03-28] MEDS: predniSONE 5 MG TAB PO SCH (08:23)
[2023-03-28] MEDS: DULoxetine HCL 60 MG CAP PO SCH (08:23)
[2023-03-28] MEDS: PANTOprazole 40 MG TAB PO SCH (08:24)
[2023-03-28] MEDS: carvediloL 25 MG TAB PO SCH ×2 (08:24→17:21)
[2023-03-28] MEDS: MONTELUKAST SODIUM 10 MG TABLET PO SCH (08:24)
[2023-03-28] MEDS: POTASSIUM CHLORIDE CRTAB 20 MEQ TABCR PO SCH (08:24)
[2023-03-28] MEDS: APIXABAN 5 MG TABLET PO SCH ×2 (08:24→22:07)
[2023-03-28] MEDS: BUMETANIDE 2 MG in SYRINGE 0 ML IV SCH (08:25)
[2023-03-28] MEDS: INSULIN ASPART PER UNIT CHARGE SC SCH ×4 (08:26→22:07)
--- NOTE | 2023-03-28 12:51 | Hospitalist Progress Note ---
Date of Service March 28, 2023 Assessment & Plan (1) Hypoxia: Plan: Most likely secondary to CHF exacerbation in the setting of CKD progression and mild asthma exacerbation Improving with diuresis Chest x-ray showed bilateral pleural effusions. BNP was elevated. Respiratory panel was negative Continue Bumex 2 mg IV daily Monitor BMP and monitor clinically Continue DuoNebs (2) CHF exacerbation: Plan: -Has been admitted multiple times over the past 2 months for CHF exacerbations -Continue IV diuresis Monitor BMP if creatinine rises, will consult nephrology (3) Asthma: Plan: -Patient responded well to DuoNeb given on admission, symptoms improved and she is much less wheezy on Auscultation -Will hold steroids for now and continue Scheduled DuoNebs; -Continue home budesonide-formoterol; will use Nebulized forms while admitted -Incentive spirometry/flutter therapy (4) Chest tightness: Plan: -Patient has been experiencing intermittent chest tightness/pressure over the past week -Confirms this feels similar to her normal asthma symptoms -Wheezing noted BL on exam today -Likely due to both asthma and BL moderate pleural effusions -ECG is without acute ST segment or T-wave changes, high sen trop is negative, low suspicion for ACS at this time -Low suspicion for PE, see hypoxia -Will give a DuoNeb treatment now and obtain mag level, if stable will give 2gm IV mag sulfate as well -If she has improvement with DuoNeb will scheduled additional treatments -Continue to treat BL pleural effusions with IV bumex Improved clinically. No tightness today. (5) Type II diabetes mellitus: Plan: -Hold Trulicity -Monitor BSG ACHS, goal is 110-140 -Tolerated sliding scale alone last admission -Will start CF of 50 ACHS, hold CR to avoid hypoglycemia for now -HH/DMII diet (6) CKD (chronic kidney disease): Plan: -Cr increased from 3.09-3.16 today. If continues to rise, will consult nephrology -Patient has been recovering from JULIO with cr in the 4's last month due to 2mg PO bumex outpatient with lisinopril use -Monitor daily renal function, daily weights, avoid nephrotoxic agents (7) Psoriasis: Plan: -Patient has been taking 5 mg Prednisone HS for years for her Psoriasis with arthritis -Tells me she has always had trouble sleeping, never thought to associate insomnia with her Prednisone -Will adjust her dosing to daily at 0900 tomorrow, monitor for improvement in sleep (8) Hypothyroidism: Plan: -Continue levothyroxine (9) Paroxysmal atrial fibrillation: Plan: -Stable; S/P ICD placement -Continue Carvedilol, amiodarone, and Eliquis (10) Acute respiratory failure with hypoxia: Admission and Anticipated Discharge Date Admission Date: March 27, 2023 Subjective Patient feels better. She says that she diuresed in response to the Lasix yesterday. Breathing better. Review of Systems Review of Systems: All systems reviewed & are unremarkable except as noted in Subjective Physical Exam Physical Exam: General: Awake, conversant Heart: S1, S2/regular rate and rhythm, no murmur rubs or gallops Lungs: Bibasilar crackles. Normal effort Abdomen: Soft/nontender/nondistended. No hepatosplenomegaly Extremities: No clubbing/cyanosis. 1+ pitting bilateral edema Behavior: Appropriate, cooperative Results & Data Results & Data Vital Signs (Past 12 Hours) Vital Signs Temp Pulse Pulse Resp BP Pulse Ox O2 Del Method 03/28/23 11:10 36.7 C 60 20 101/61 84 L Room Air 03/28/23 08:10 36.6 C 60 16 103/64 90 Room Air 03/28/23 07:28 74 18 94 Room Air 03/28/23 02:51 64 22 96 Nasal Cannula O2 Flow Rate 03/28/23 11:10 03/28/23 08:10 03/28/23 07:28 03/28/23 02:51 3 PG Care Time/CCT Total # of Minutes Spent Total Time Spent with Patient: Total time spent is greater than 50% in coordination of care (as documented) at patient's floor/unit and/or counseling patient: Coding Level of Care Code 79130 SUB INP/OBS CARE 2/35MIN Diagnoses Hypoxia R09.02 CHF exacerbation I50.9 Asthma J45.909 Chest tightness R07.89 Type 2 diabetes mellitus with stage 4 chronic kidney disease, without long-term current use of insulin E11.22; N18.4 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 intermediate frame tender insulin use: without chcf use 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 complication status: with kidney complications 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 complication detail: with chronic kidney disease Chronic kidney disease stage: stage 4 (severe) CKD (chronic kidney disease) N18.9 Psoriasis L40.9 Hypothyroidism E03.9 Paroxysmal atrial fibrillation I48.0 Acute respiratory failure with hypoxia J96.01 (5) Type II diabetes mellitus 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 chcf insulin use: without intermediate frame tender use 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 complication status: with kidney complications 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 complication detail: with chronic kidney disease Chronic kidney disease stage: stage 4 (severe) Qualified Code(s): E11.22 - Type 2 diabetes mellitus with diabetic chronic kidney disease; N18.4 - Chronic kidney disease, stage 4 (severe)
[2023-03-28] MEDS: ATORVASTATIN 40 MG TAB PO SCH (22:06)
[2023-03-28] MEDS: NIFEdipine EXTENDED REL 30 MG TABCR PO SCH (22:07)
[2023-03-29] MEDS: LEVOTHYROXINE SODIUM 137 MCG TABLET PO SCH (05:30)
[2023-03-29 06:09] LABS: Basophils # (auto) 0.04 K/uL (0.00-0.20); Basophils % (auto) 0.8 %; Eosinophils # (auto) 0.17 K/uL (0.00-0.50); Eosinophils % (auto) 3.5 %; Hematocrit (blood only) 28.1 % (37.0-47.0); Hemoglobin 8.9 g/dl (12.0-16.0); Immature Granulocytes # (auto) 0.01 K/uL (0.01-0.20); Immature Granulocytes % (auto) 0.2 %; Lymphocytes # (auto) 1.16 K/uL (1.20-3.40); Lymphocytes % (auto) 24.2 %; Mean Corpuscular Hemoglobin 25.6 pg (25.0-34.0); Mean Corpuscular Hgb Conc 31.7 g/dL (32.0-36.0); Mean Platelet Volume 10.1 fL (9.4-12.4); Monocytes # (auto) 0.42 K/uL (0.11-0.59); Monocytes % (auto) 8.8 %; Neutrophils % (auto) 62.5 %; Platelet Count 310 K/uL (130-400); RDW Coefficient of Variation 20.2 % (11.5-14.5); Red Blood Count 3.47 M/uL (4.20-5.40)
[2023-03-29 06:13] LABS: BUN Creatinine Ratio 10.9 (10-20); Creatinine Clr Calc Pharmacy 19.7 ml/min; Est GFR (African American) 15.5 ml/min; Est GFR (Non-African American) 13.4 ml/min; Magnesium 1.9 mg/dl (1.7-2.4); Potassium 3.8 mmol/L (3.5-5.1)
[2023-03-29 06:26] LABS: INR 1.3 (0.9-1.1)
[2023-03-29 06:55] LABS: Anisocytosis Present; Polychromasia 1+; Rouleaux 1+
[2023-03-29] MEDS: FORMOTEROL 20 MCG/2 ML VIAL NEB SCH ×2 (06:55→20:05)
[2023-03-29] MEDS: BUDESONIDE 0.5 MG/2 ML VIAL (PULMICORT) NEB SCH ×2 (06:55→20:05)
[2023-03-29] MEDS: APIXABAN 5 MG TABLET PO SCH ×2 (08:08→21:23)
[2023-03-29] MEDS: predniSONE 5 MG TAB PO SCH (08:08)
[2023-03-29] MEDS: BUMETANIDE 2 MG in SYRINGE 0 ML IV SCH (08:09)
[2023-03-29] MEDS: CALCITRIOL 0.25 MCG CAPSULE PO SCH (08:09)
[2023-03-29] MEDS: AMIODARONE 200 MG TAB PO SCH (08:10)
[2023-03-29] MEDS: PANTOprazole 40 MG TAB PO SCH (08:10)
[2023-03-29] MEDS: DULoxetine HCL 60 MG CAP PO SCH (08:10)
[2023-03-29] MEDS: ACETAMINOPHEN 500 MG TAB PO SCH ×2 (08:11→21:22)
[2023-03-29] MEDS: MAGNESIUM OXIDE 400 MG TAB PO SCH ×2 (08:11→21:23)
[2023-03-29] MEDS: MONTELUKAST SODIUM 10 MG TABLET PO SCH (08:11)
[2023-03-29] MEDS: carvediloL 25 MG TAB PO SCH ×2 (08:11→17:06)
[2023-03-29] MEDS: POTASSIUM CHLORIDE CRTAB 20 MEQ TABCR PO SCH (08:11)
[2023-03-29] MEDS: INSULIN ASPART PER UNIT CHARGE SC SCH ×4 (08:50→20:39)
[2023-03-29] MEDS: ONDANSETRON INJ 2 MG/ML 2 ML VIAL IV PRN (10:22)
--- NOTE | 2023-03-29 11:05 | Nephrology Consultation ---
Date of Consultation March 29, 2023 Assessment & Plan (1) Acute kidney injury: * JULIO due to CRS. LVEF 35-40% * Urine sediment is acellular. UPCR 0.2 * Continue diuretic therapy. May need to accept worsening renal function to maintain euvolemic status * Discussed the role of [employer] in the setting of CRS w/ patient today. Understandably she does not desire dialysis but would be accepting if necessary to maintain euvolemia (2) CKD (chronic kidney disease) stage 4, GFR 15-29 ml/min: * Baseline Cr 2.0 w/ EGFR 25 cc/min. Renal impairment is on the basis of microvascular disease and hypertensive nephrosclerosis (3) CHF (congestive heart failure): * Reviewed 1500 mg NaCl restricted diet w/ patient today. She receives meals from meals on wheels and notes that they are low Na * Patient is nonoliguric and responding well to IV diuretic therapy * IV Bumex administered this am. Will order Bumex 2 mg po daily starting tomorrow * Monitor I&O, daily weight * Will order follow up CXR for am (4) Anemia, unspecified: * Hgb 8.9 today * Will order iron studies w/ next lab draw History of Present Illness Reason for Consultation: JULIO/CKD, CHF Attending Physician: Trudi Hansen MD History of Present Illness Ms. Vergara is a 77 year old female who is seen at the request of Dr. Hansen for evaluation of JULIO/CKD, CHF. Information for the HPI is obtained from direct patient interview and review of the EMR. HPI is summarized as follows: Ms. Vergara has CKD stage G4/A3 (advanced impairment). Her baseline Cr has been 2.0 w/ EGFR 25 cc/min. Outpatient evaluation has revealed acellular urine sediment, UPCR 0.2. 02/14 renal US - R 10.1cm, L 10.7cm. No stone or mass, but moderate bilateral renal cortical thinning w/ echogenic kidneys. Renal impairment is on the basis of microvascular disease and hypertensive nephrosclerosis. Ms. Vergara medical history is also significant for HFrEF. She has been monitored in the [facility] CHF clinic. Echocardiogram 01/25/23 revealed LVEF 35-40% w/ global hypokinesis, moderate LVH. 01/29/23 she underwent pacemaker/AICD placement due to episodes of NSVT. She was last hospitalized 02/10/23-02/12/23 due to CHF. She responded to IV diuretic therapy and target weight of 225 lbs (102 kg) was established. Cr had risen to 3.0 with diuretic therapy. As outpatient Bumex was reduced to 1 mg daily. Patient was educated on a low Na diet. Unfortunately she was readmitted 03/27/23 with 2 kg weight gain and recurrent CHF. Patient was hypoxemic on RA and CXR revealed persistent pulmonary edema w/ bilateral pleural effusions. Since admission Ms. Vergara has received Bumex 2 mg IV daily. She has diuresed 1850 cc. Weight is down to 100.9 kg. She still requires oxygen but reports that her breathing and LE swelling have improved. 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 Allergies Allergy/AdvReac Type Severity Reaction Status Date / Time codeine Allergy Severe Anaphylaxis Verified 03/27/23 15:24 furosemide Allergy Severe SEVERE Verified 03/27/23 15:24 RASH, PT REPORTS A CROSS ALLERGY WITH SULFA celecoxib [From Celebrex] Allergy Intermediate RASH Verified 03/27/23 15:24 cephalexin [From Keflex] Allergy Intermediate Rash Verified 03/27/23 15:24 hydrocodone Allergy Intermediate Rash Verified 03/27/23 15:24 Iodinated Contrast Media Allergy Intermediate RASH Verified 03/27/23 15:24 nickel Allergy Intermediate Rash Verified 03/27/23 15:24 oxycodone Allergy Intermediate Rash Verified 03/27/23 15:24 Sulfa (Sulfonamide Allergy Intermediate RASH TO Verified 03/27/23 15:24 Antibiotics) SULFA DRUGS tetracycline Allergy Intermediate RASH Verified 03/27/23 15:24 capsaicin AdvReac Intermediate CREATINE Verified 03/27/23 15:24 ELEVATION diclofenac AdvReac Intermediate CREATINE Verified 03/27/23 15:24 ELEVATION propylene glycol AdvReac Intermediate CREATINE Verified 03/27/23 15:24 ELEVATION "PREP WITH BLUE DYE" Allergy Intermediate Rash Uncoded 03/27/23 15:24 Home Medications Medication Instructions Recorded Confirmed Type magnesium oxide 400 mg PO BID 07/26/18 03/27/23 History omega 8-[id number]-[id number]-fish oil 1,000 mg 1,000 mg PO BID 07/26/18 03/27/23 History (120 mg-180 mg) capsule (Fish Oil) cetirizine 10 mg tablet (Zyrtec) 10 mg PO HS 08/22/19 03/27/23 History betamethasone valerate 0.1 % 1 applic topical UD PRN PSORIASIS 11/30/19 03/27/23 History topical cream blood-glucose meter (Accu-Chek 02/12/21 03/26/23 History Garima Plus Meter) prednisone 5 mg tablet 5 mg PO HS #90 tabs 01/07/22 03/27/23 Rx nitroglycerin 0.4 mg/hr 1 patch transdermal QAM #90 ea 03/20/22 03/27/23 Rx transdermal 24 hour patch (Nitro-Dur) nifedipine 90 mg tablet,extended 90 mg PO HS #90 tabs 04/14/22 03/27/23 Rx release duloxetine 60 mg capsule,delayed 60 mg PO QAM #90 caps 05/12/22 03/27/23 Rx release (Cymbalta) cholestyramine (with sugar) 4 gram 4 ea PO DIRECTED PRN Diarrhea 08/26/22 03/27/23 History oral powder levothyroxine 137 mcg capsule 137 mcg PO DAILY #90 caps 08/27/22 03/27/23 Rx albuterol sulfate 90 mcg/actuation 2 puff inhalation Q6H PRN 09/30/22 03/27/23 Rx aerosol inhaler shortness of breath or wheezing #8.5 grams budesonide-formoterol HFA 80 2 puff inhalation BID #3 Inhalers 09/30/22 03/27/23 Rx mcg-4.5 mcg/actuation aerosol inhaler (Symbicort) azelastine 137 mcg (0.1 %) nasal 2 spray intranasal DAILY PRN 11/17/22 03/27/23 Rx spray aerosol ALLERGIES #30 mL blood sugar diagnostic (Accu-Chek #100 ea 12/19/22 03/26/23 Rx Garima Plus test strips) potassium chloride 20 mEq 20 meq PO QAM #90 tabs 01/09/23 03/27/23 Rx tablet,extended release(part/cryst) (Klor-Con M) apixaban 5 mg tablet (Eliquis) 5 mg PO BID #180 tabs 01/15/23 03/27/23 Rx montelukast 10 mg tablet 10 mg PO DAILY #90 tabs 01/19/23 03/27/23 Rx (Singulair) acetaminophen 650 mg 1,300 mg PO BID 01/20/23 03/27/23 History tablet,extended release (Tylenol Arthritis Pain) carvedilol 25 mg tablet 25 mg PO BID #60 tabs 01/31/23 03/27/23 Rx lansoprazole 30 mg capsule,delayed 30 mg PO DAILY #90 caps 02/04/23 03/27/23 Rx release atorvastatin 40 mg tablet 40 mg PO HS 02/10/23 03/27/23 History lisinopril 10 mg tablet 10 mg PO QAM #30 tabs 02/12/23 03/27/23 Rx bumetanide 2 mg tablet 1 mg (1/2 x 2 mg) PO DAILY #30 tabs 02/17/23 03/27/23 Rx Hospital Bed [facility] (Hospital [facility]1 ea 03/03/23 03/26/23 Rx Bed) dulaglutide 1.5 mg/0.5 mL 1.5 mg (0.5 mL) subcut ONCE #6 mL 03/03/23 03/27/23 Rx subcutaneous pen injector (Trulicity) amiodarone 200 mg tablet 200 mg PO DAILY #30 tabs 03/06/23 03/27/23 Rx levalbuterol HCl 0.63 mg/3 mL 0.63 mg (3 mL) inhalation Q4H PRN 03/16/23 03/27/23 Rx solution for nebulization Cough #90 mL doxycycline monohydrate 100 mg 100 mg PO BID 7 days #14 caps 03/20/23 03/27/23 Rx capsule calcitriol 0.5 mcg capsule 0.25 mcg PO DAILY 03/23/23 03/27/23 History Patient History Medical History (Updated 03/29/23 @ 11:25 by Junaid Stevenson MD) CKD (chronic kidney disease) stage 4, GFR 15-29 ml/min baseline creatinine 2.0-2.2 range; nephrology (Dr. Stevenson) monitoring Pulmonary edema Cardiomyopathy Non-ST elevation (NSTEMI) myocardial infarction Ventricular tachycardia Tachy-lina syndrome Elevated troponin Atrial fibrillation with RVR Sialoadenitis, unspecified Allergic rhinitis SI joint arthritis Abnormal PFT Mild persistent asthma Active asthma inhaler daily/prn, nebulizer prn Sinus congestion Chronic dyspnea On anticoagulant therapy eliquis bid Paroxysmal atrial fibrillation follows with Dr. 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 Ken)- under surveillance/stable/no indication for surgical intervention Psoriatic arthropathy GERD (gastroesophageal reflux disease) CONTROLLED WITH MEDS Osteoarthritis, knee Surgical History History of laparoscopy (~06/2020) exploratory after colectomy @ [facility] History of colectomy (~06/2020) @ [facility] History of total left hip arthroplasty 12/2019 History of total hip arthroplasty RIGHT 05/27/19. Complicated by post-op seroma requiring multiple needle aspirations.LEFT HIP 01/10/20 History of dilatation and curettage History of tooth extraction History of tonsillectomy and adenoidectomy History of cardiac cath X2; 10+ YEARS AGO (NO STENTS) History of arthroscopy RT/LEFT KNEE Status post total replacement of left shoulder hx of History of colonoscopy last 03/2020 History of esophagogastroduodenoscopy (EGD) History of total abdominal hysterectomy and bilateral salpingo-oophorectomy History of arthroscopy of right shoulder History of total knee arthroplasty RIGHT History of foot surgery RT FOOT FUSION History of cholecystectomy History of cataract extraction RT/LEFT History of lumbar fusion H/O thyroidectomy Family History Mother Arthritis Hypertension Father Lung cancer Hypertension Family/Other Family hx of colon cancer 1st cousin Unknown Allergies Breast cancer Hypertension Brother Cancer Heart disease Aunt Colorectal cancer Other No family history of adverse response to anesthesia No family history of bleeding disorder Denies family history of Ovarian cancer Prostate cancer Diabetes Hearing loss Myocardial infarction Stroke Asthma Social History Smoking Status: Former smoker Tobacco Type: Cigarettes Age Quit Using Tobacco: 26; Second Hand Exposure: No; Do You Dip or Chew Tobacco: No; Hx Alcohol Use: No Hx Substance Use: No Preferred Language: Czech Communication Ability: Effective Communication Ability Comment: DEAF RIGHT EAR Visual Impairment: Limited Hearing Ability: Hard of Hearing 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 Beliefs That Will Affect Care: None marital status: / Current Living Situation: Family Current Living Situation Comment: [place] current occupational status: retired current occupation: Retired How many Children do You have: 0 Other Information That Helps Us Care for You: No Feels Safe at Home: Yes Safety Concerns: Feels Safe At This Time Childhood Exposure to Second-Hand Smoke: Yes caffeine: Yes Dental Care, Regularly: Yes Physical Activity Frequency: Does not Exercise Physical Activity Frequency Comment: Hip problems Seatbelt Use: always Sunscreen Use: No Assistive Devices: Cane, Nebulizer and Walker Review of Systems Constitutional: no fever Eyes: no problem reported Ear, Nose, Mouth, Throat: no problem reported Respiratory: no cough and no dyspnea Cardiovascular: no chest pain Gastrointestinal: no abdominal pain, no nausea, no vomiting and no diarrhea/loose stools Genitourinary: no dysuria Integumentary: no rash Physical Exam Constitutional: not in distress Eyes: PERRL, conjunctivae normal, anicteric sclerae ENMT: external ear and nose normal, oropharynx normal Neck: trachea midline, no thyromegaly Respiratory: diminished breath sounds at the bases bilaterally Cardiovascular: Rate/Rhythm: regular rate and regular rhythm Extremities: no edema Gastrointestinal (Abdomen): normal bowel sounds, soft, nontender, no hepatosplenomegaly Neurologic: Speech / Cognition: normal speech and normal cognition Results & Data Vital Signs (Past 12 Hours) Vital Signs Temp Pulse Pulse Pulse Resp BP Pulse Ox 03/29/23 08:18 03/29/23 07:57 36.7 C 60 20 114/62 95 03/29/23 07:30 66 20 89 L 03/29/23 03:54 36.6 C 67 18 108/61 93 03/29/23 02:41 67 03/29/23 01:16 EST O2 Del Method O2 Flow Rate 03/29/23 08:18 Nasal Cannula 3 03/29/23 07:57 Nasal Cannula 4 03/29/23 07:30 Nasal Cannula 4 03/29/23 03:54 Nasal Cannula 03/29/23 02:41 03/29/23 01:16 EST Nasal Cannula 3 Laboratory Results Laboratory Results WBC 4.80 K/ul (4.8-10.8) 03/29/23 05:28 RBC 3.47 M/uL (4.20-5.40) L 03/29/23 05:28 Hgb 8.9 g/dl (12.0-16.0) L 03/29/23 05:28 Hct 28.1 % (37.0-47.0) L 03/29/23 05:28 MCV 81.0 fL (80.0-100.0) 03/29/23 05:28 MCH 25.6 pg (25.0-34.0) 03/29/23 05:28 MCHC 31.7 g/dL (32.0-36.0) L 03/29/23 05:28 RDW Std Deviation 59.0 fL (36.4-46.3) H 03/29/23 05:28 RDW Coeff of Amrita 20.2 % (11.5-14.5) H 03/29/23 05:28 Plt Count 310 K/uL (130-400) 03/29/23 05:28 MPV 10.1 fL (9.4-12.4) 03/29/23 05:28 Immature Gran % (Auto) 0.2 % 03/29/23 05:28 Neut % (Auto) 62.5 % 03/29/23 05:28 Lymph % (Auto) 24.2 % 03/29/23 05:28 [place] % (Auto) 8.8 % 03/29/23 05:28 Eos % (Auto) 3.5 % 03/29/23 05:28 Baso % (Auto) 0.8 % 03/29/23 05:28 Neut # (Auto) 3.00 K/uL (1.40-6.50) 03/29/23 05:28 Lymph # (Auto) 1.16 K/uL (1.20-3.40) L 03/29/23 05:28 [place] # (Auto) 0.42 K/uL (0.11-0.59) 03/29/23 05:28 Eos # (Auto) 0.17 K/uL (0.00-0.50) 03/29/23 05:28 Baso # (Auto) 0.04 K/uL (0.00-0.20) 03/29/23 05:28 Immature Gran # (Auto) 0.01 K/uL (0.01-0.20) 03/29/23 05:28 Polychromasia 1+ 03/29/23 05:28 Anisocytosis Present 03/29/23 05:28 Rouleaux 1+ 03/29/23 05:28 PT 14.0 Seconds (9.0-12.0) H 03/29/23 05:28 INR 1.3 (0.9-1.1) H 03/29/23 05:28 Sodium 137 mmol/L (136-145) 03/29/23 05:28 Potassium 3.8 mmol/L (3.5-5.1) 03/29/23 05:28 Chloride 102 mmol/L (98-107) 03/29/23 05:28 Carbon Dioxide 25 mmol/L (21-32) 03/29/23 05:28 Anion Gap 10 (3-11) 03/29/23 05:28 BUN 35 mg/dl (6-23) H 03/29/23 05:28 Creatinine 3.20 mg/dl (0.6-1.2) H 03/29/23 05:28 Est Cr Clr Drug Dosing 19.7 ml/min 03/29/23 05:28 Est GFR ( Amer) 15.5 ml/min 03/29/23 05:28 Est GFR (Non-Af Amer) 13.4 ml/min 03/29/23 05:28 BUN/Creatinine Ratio 10.9 (10-20) 03/29/23 05:28 Glucose 100 mg/dl (70-99(Fasting)) H 03/29/23 05:28 POC Glucose 123 mg/dl (70-99) H 03/29/23 08:22 Calcium 9.0 mg/dl (8.6-10.3) 03/29/23 05:28 Magnesium 1.9 mg/dl (1.7-2.4) 03/29/23 05:28 Total Bilirubin 0.6 mg/dl (0.2-1.0) 03/27/23 13:20 AST 16 U/L (13-39) 03/27/23 14:41 ALT 15 U/L (7-52) 03/27/23 13:20 Alkaline Phosphatase 77 U/L (34-104) 03/27/23 13:20 Troponin I High Sens 8.2 pg/ml (0-14) 03/27/23 13:20 B-Natriuretic Peptide 217 pg/ml (0-100) H 03/27/23 14:41 Total Protein 8.8 gm/dl (6.0-8.3) H 03/27/23 13:20 Albumin 3.6 gm/dl (3.4-5.0) 03/27/23 13:20 Globulin 5.2 gm/dl (2.5-4.0) H 03/27/23 13:20 Albumin/Globulin Ratio 0.7 (0.9-2) L 03/27/23 13:20 Lipase 70 U/L (11-82) 03/27/23 13:20 Urine Color Yellow 03/27/23 Unknown Urine Appearance Clear (Clear) 03/27/23 Unknown Urine pH 5.0 (4.5-7.5) 03/27/23 Unknown Ur Specific [place] 1.008 (1.000-1.030) 03/27/23 Unknown Urine Protein Negative (Negative) 03/27/23 Unknown Urine Glucose (UA) Negative (Negative) 03/27/23 Unknown Urine Ketones Negative (Negative) 03/27/23 Unknown Urine Blood Negative (Negative) 03/27/23 Unknown Urine Nitrite Negative (Negative) 03/27/23 Unknown Urine Bilirubin Negative (Negative) 03/27/23 Unknown Urine Urobilinogen Negative (Negative) 03/27/23 Unknown Ur Leukocyte Esterase Negative (Negative) 03/27/23 Unknown Ur Random Creatinine 64.1 mg/dl 03/27/23 Unknown U Random Total Protein 9.9 mg/dl (0-11.9) 03/27/23 Unknown Protein/Creatinin Ratio 0.2 (0-0.2) 03/27/23 Unknown Adenovirus (PCR) Not Detected (NotDetected) 03/27/23 Unknown B. pertussis DNA (PCR) Not Detected (NotDetected) 03/27/23 Unknown B.parapertussis DNA PCR Not Detected (NotDetected) 03/27/23 Unknown C. pneumoniae DNA (PCR) Not Detected (NotDetected) 03/27/23 Unknown Coronavirus OC43 (PCR) Not Detected (NotDetected) 03/27/23 Unknown Coronavirus HKU1 (PCR) Not Detected (NotDetected) 03/27/23 Unknown Coronavirus 229E (PCR) Not Detected (NotDetected) 03/27/23 Unknown SARS-CoV-2 (PCR) Not Detected (NotDetected) 03/27/23 Unknown Coronavirus NL63 (PCR) Not Detected (NotDetected) 03/27/23 Unknown Human Metapneumovir PCR Not Detected (NotDetected) 03/27/23 Unknown Influenza Type A (PCR) Not Detected (NotDetected) 03/27/23 Unknown Influenza Type B (PCR) Not Detected (NotDetected) 03/27/23 Unknown M. pneumoniae (PCR) Not Detected (NotDetected) 03/27/23 Unknown Parainfluenza 1 (PCR) Not Detected (NotDetected) 03/27/23 Unknown Parainfluenza 2 (PCR) Not Detected (NotDetected) 03/27/23 Unknown Parainfluenza 3 (PCR) Not Detected (NotDetected) 03/27/23 Unknown Parainfluenza 4 (PCR) Not Detected (NotDetected) 03/27/23 Unknown RSV (PCR) Not Detected (NotDetected) 03/27/23 Unknown Entero/Rhino (PCR) Not Detected (NotDetected) 03/27/23 Unknown Impressions Chest X-Ray 03/27/23 13:54 XR chest 1V portable CLINICAL HISTORY: Chest pain, nonspecific. COMPARISON STUDY: Chest radiograph March 18, 2023. FINDINGS: A left subclavian pacer/AICD is in place. There is no pneumothorax. Moderate bilateral pleural effusions have increased since prior exam. There are associated bibasilar opacities. Pulmonary edema persists. IMPRESSION: 1. Increase in moderate bilateral pleural effusions with associated bibasilar opacities. 2. Cardiomegaly with mild interstitial pulmonary edema. ACT 112: Negative or not required by law. Electronically signed by: Alfred Avendaño M.D. 03/27/2023 2:41 PM PG Care Time/CCT Total # of Minutes Spent Total Time Spent with Patient: Total time spent is greater than 50% in coordination of care (as documented) at patient's floor/unit and/or counseling patient: Coding Level of Care Code 44086 IN/OBS CONSULT LVL 5,80M Diagnoses Acute kidney injury N17.9 CKD (chronic kidney disease) stage 4, GFR 15-29 ml/min N18.4 CHF (congestive heart failure) I50.9 Anemia, unspecified D64.9
--- NOTE | 2023-03-29 14:29 | Hospitalist Progress Note ---
Date of Service March 29, 2023 Assessment & Plan (1) Hypoxia: Plan: Most likely secondary to CHF exacerbation in the setting of CKD progression and mild asthma exacerbation Improving with diuresis Chest x-ray showed bilateral pleural effusions. BNP was elevated. Respiratory panel was negative patient got a few doses of IV Bumex 2 mg creatinine rising Nephrology involved Bumex switched to p.o. Monitor BMP and monitor clinically Continue DuoNebs (2) CHF exacerbation: Plan: -Has been admitted multiple times over the past 2 months for CHF exacerbations - Bumex switched from IV to p.o. per nephrology Monitor BMP creatinine rising. Nephrology involved Patient has cardiorenal syndrome (3) Asthma: Plan: -Patient responded well to DuoNeb given on admission, symptoms improved and she is much less wheezy on Auscultation -Will hold steroids for now and continue Scheduled DuoNebs; -Continue home budesonide-formoterol; will use Nebulized forms while admitted -Incentive spirometry/flutter therapy (4) Chest tightness: Plan: -Patient has been experiencing intermittent chest tightness/pressure over the past week -Confirms this feels similar to her normal asthma symptoms -Wheezing noted BL on exam today -Likely due to both asthma and BL moderate pleural effusions -ECG is without acute ST segment or T-wave changes, high sen trop is negative, low suspicion for ACS at this time -Low suspicion for PE, see hypoxia -Will give a DuoNeb treatment now and obtain mag level, if stable will give 2gm IV mag sulfate as well -If she has improvement with DuoNeb will scheduled additional treatments -Continue to treat BL pleural effusions with bumex Improved clinically. No tightness today. (5) Type II diabetes mellitus: Plan: -Hold Trulicity -Monitor BSG ACHS, goal is 110-140 -Tolerated sliding scale alone last admission -Will start CF of 50 ACHS, hold CR to avoid hypoglycemia for now -HH/DMII diet (6) CKD (chronic kidney disease): Plan: -Cr increased from 3.09-3.2 today. consult nephrology Secondary to cardiorenal syndrome -Patient has been recovering from JULIO with cr in the 4's last month due to 2mg PO bumex outpatient with lisinopril use -Monitor daily renal function, daily weights, avoid nephrotoxic agents (7) Psoriasis: Plan: -Patient has been taking 5 mg Prednisone HS for years for her Psoriasis with arthritis -Tells me she has always had trouble sleeping, never thought to associate insomnia with her Prednisone -Will adjust her dosing to daily at 0900 tomorrow, monitor for improvement in sleep (8) Hypothyroidism: Plan: -Continue levothyroxine (9) Paroxysmal atrial fibrillation: Plan: -Stable; S/P ICD placement -Continue Carvedilol, amiodarone, and Eliquis (10) Acute respiratory failure with hypoxia: Admission and Anticipated Discharge Date Admission Date: March 27, 2023 Subjective Patient does not feel short of breath. She did have issues with nausea earlier this morning. Abdominal pain or abdominal distention. She is passing gas Review of Systems Review of Systems: All systems reviewed & are unremarkable except as noted in Subjective Physical Exam Physical Exam: General: Awake, conversant Heart: S1, S2/regular rate and rhythm, no murmur rubs or gallops Lungs: Bibasilar crackles. Normal effort Abdomen: Soft/nontender/nondistended. No hepatosplenomegaly Extremities: No clubbing/cyanosis. trace edema Behavior: Appropriate, cooperative Results & Data Results & Data Vital Signs (Past 12 Hours) Vital Signs Temp Pulse Pulse Pulse Resp BP Pulse Ox 03/29/23 11:33 36.8 C 60 18 118/68 93 03/29/23 08:18 03/29/23 07:57 36.7 C 60 20 114/62 95 03/29/23 07:30 66 20 89 L 03/29/23 07:00 62 03/29/23 03:54 36.6 C 67 18 108/61 93 03/29/23 02:41 67 O2 Del Method O2 Flow Rate 03/29/23 11:33 Nasal Cannula 4 03/29/23 08:18 Nasal Cannula 3 03/29/23 07:57 Nasal Cannula 4 03/29/23 07:30 Nasal Cannula 4 03/29/23 07:00 03/29/23 03:54 Nasal Cannula 03/29/23 02:41 PG Care Time/CCT Total # of Minutes Spent Total Time Spent with Patient: Total time spent is greater than 50% in coordination of care (as documented) at patient's floor/unit and/or counseling patient: Coding Level of Care Code 90117 SUB INP/OBS CARE 2/35MIN Diagnoses Hypoxia R09.02 CHF exacerbation I50.9 Asthma J45.909 Chest tightness R07.89 Type 2 diabetes mellitus with stage 4 chronic kidney disease, without long-term current use of insulin E11.22; N18.4 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 skilled nursing insulin use: without skilled nursing use 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 complication status: with kidney complications 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 complication detail: with chronic kidney disease Chronic kidney disease stage: stage 4 (severe) CKD (chronic kidney disease) N18.9 Psoriasis L40.9 Hypothyroidism E03.9 Paroxysmal atrial fibrillation I48.0 Acute respiratory failure with hypoxia J96.01 (5) Type II diabetes mellitus 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 pattern grader supervisor insulin use: without pattern grader supervisor use 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 complication status: with kidney complications 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 complication detail: with chronic kidney disease Chronic kidney disease stage: stage 4 (severe) Qualified Code(s): E11.22 - Type 2 diabetes mellitus with diabetic chronic kidney disease; N18.4 - Chronic kidney disease, stage 4 (severe)
[2023-03-29] MEDS: ATORVASTATIN 40 MG TAB PO SCH (21:22)
[2023-03-29] MEDS: NIFEdipine EXTENDED REL 30 MG TABCR PO SCH (21:23)
[2023-03-30 05:24] LABS: Basophils # (auto) 0.03 K/uL (0.00-0.20); Basophils % (auto) 0.7 %; Eosinophils # (auto) 0.11 K/uL (0.00-0.50); Eosinophils % (auto) 2.7 %; Hematocrit (blood only) 27.9 % (37.0-47.0); Hemoglobin 8.6 g/dl (12.0-16.0); Immature Granulocytes # (auto) 0.02 K/uL (0.01-0.20); Immature Granulocytes % (auto) 0.5 %; Lymphocytes # (auto) 1.03 K/uL (1.20-3.40); Lymphocytes % (auto) 25.2 %; Mean Corpuscular Hemoglobin 25.8 pg (25.0-34.0); Mean Corpuscular Hgb Conc 30.8 g/dL (32.0-36.0); Mean Corpuscular Volume 83.8 fL (80.0-100.0); Mean Platelet Volume 9.9 fL (9.4-12.4); Monocytes # (auto) 0.46 K/uL (0.11-0.59); Monocytes % (auto) 11.3 %; Neutrophils # (auto) 2.43 K/uL (1.40-6.50); Neutrophils % (auto) 59.6 %; Platelet Count 296 K/uL (130-400); RDW Coefficient of Variation 19.9 % (11.5-14.5); RDW Standard Deviation 60.7 fL (36.4-46.3); Red Blood Count 3.33 M/uL (4.20-5.40); White Blood Count 4.08 K/ul (4.8-10.8)
[2023-03-30 05:33] LABS: BUN Creatinine Ratio 10.8 (10-20); Calcium 8.6 mg/dl (8.6-10.3); Creatinine Clr Calc Pharmacy 19.4 ml/min; Est GFR (African American) 15.4 ml/min; Est GFR (Non-African American) 13.3 ml/min; Potassium 4.1 mmol/L (3.5-5.1)
[2023-03-30] MEDS: LEVOTHYROXINE SODIUM 137 MCG TABLET PO SCH (05:39)
[2023-03-30 05:51] LABS: Ferritin 58.8 ng/ml (8-388)
[2023-03-30 05:55] LABS: INR 1.3 (0.9-1.1)
[2023-03-30] MEDS: BUDESONIDE 0.5 MG/2 ML VIAL (PULMICORT) NEB SCH ×2 (07:09→19:36)
[2023-03-30] MEDS: FORMOTEROL 20 MCG/2 ML VIAL NEB SCH ×2 (07:09→19:35)
--- NOTE | 2023-03-30 07:25 | XRay Report ---
XR chest 1V portable HISTORY: 77 years-old Female CHF acute shortness of breath COMPARISON: 03/27/2023 TECHNIQUE: AP view of the chest FINDINGS: Cardiac silhouette is enlarged. Left subclavian pacer/AICD. Pulmonary vascular congestion. Layering p leural effusions with bibasilar consolidation redemonstrated. Degenerative changes of the right shoul alejandro and spine. Left shoulder arthroplasty. IMPRESSION: 1. Cardiomegaly with pulmonary vascular congestion. 2. Layering pleural effusions with bibasilar consolidation redemonstrated. ACT 112: Negative or not required by law. The above report was generated using voice recognition software. It may contain grammatical, syntax o r spelling errors. Electronically signed by: Haseeb Steiner M.D. 03/30/2023 7:24 AM
[2023-03-30] MEDS: MONTELUKAST SODIUM 10 MG TABLET PO SCH (08:51)
[2023-03-30] MEDS: POTASSIUM CHLORIDE CRTAB 20 MEQ TABCR PO SCH (08:51)
[2023-03-30] MEDS: CALCITRIOL 0.25 MCG CAPSULE PO SCH (08:52)
[2023-03-30] MEDS: BUMETANIDE 1 MG TAB PO SCH (08:52)
[2023-03-30] MEDS: predniSONE 5 MG TAB PO SCH (08:52)
[2023-03-30] MEDS: DULoxetine HCL 60 MG CAP PO SCH (08:52)
[2023-03-30] MEDS: carvediloL 25 MG TAB PO SCH ×2 (08:53→17:04)
[2023-03-30] MEDS: ACETAMINOPHEN 500 MG TAB PO SCH ×2 (08:53→20:22)
[2023-03-30] MEDS: APIXABAN 5 MG TABLET PO SCH ×2 (08:53→20:22)
[2023-03-30] MEDS: PANTOprazole 40 MG TAB PO SCH (08:53)
[2023-03-30] MEDS: AMIODARONE 200 MG TAB PO SCH (08:53)
[2023-03-30] MEDS: MAGNESIUM OXIDE 400 MG TAB PO SCH ×2 (08:54→20:21)
[2023-03-30] MEDS: INSULIN ASPART PER UNIT CHARGE SC SCH ×4 (08:54→20:23)
--- NOTE | 2023-03-30 09:10 | Nephrology Progress Note ---
Date of Service March 30, 2023 Assessment & Plan (1) Acute kidney injury: Plan: * JULIO due to CRS. LVEF 35-40% (01/24/23 echo) * Urine sediment is acellular. UPCR 0.2 * CXR this morning shows persistent CHF w/ bilateral pleural effusions. Limited response to IV Bumex yesterday. Only net 150 cc diuresis. Patient had already received oral Bumex this morning. Will add Metolazone 2.5 mg po x1 this morning to promote diuresis * Monitor PRP, UO, daily weight (2) CKD (chronic kidney disease) stage 4, GFR 15-29 ml/min: Plan: * Baseline Cr 2.0 w/ EGFR 25 cc/min. Renal impairment is on the basis of microvascular disease and hypertensive nephrosclerosis (3) CHF (congestive heart failure): Plan: * Reviewed 1500 mg NaCl restricted diet w/ patient on admission. She receives meals from meals on wheels and notes that they are low Na * Patient remains nonoliguric. Will provide Bumex + Metolazone this am as outlined above * Monitor I&O, daily weight (4) Anemia, unspecified: Plan: * Hgb 8.9 today * Iron sat 11% w/ ferritin 58 * Will order Venofer 300 mg IV daily x 4 doses, then stop Admission and Anticipated Discharge Date Admission Date: March 27, 2023 Subjective Ms. Vergara was evaluated in her hospital room this morning. Her breathing is subjectively improved, but she still remains on O2 at 2 L/min NC and has not yet attempted to get OOB or ambulate. She denies angina Review of Systems Constitutional: no fever Eyes: no problem reported Ear, Nose, Mouth, Throat: no problem reported Respiratory: no cough and no dyspnea Cardiovascular: no chest pain Gastrointestinal: no abdominal pain, no nausea, no vomiting and no diarrhea/loose stools Genitourinary: no dysuria Integumentary: no rash Physical Exam Constitutional: not in distress Eyes: PERRL, conjunctivae normal, anicteric sclerae ENMT: external ear and nose normal, oropharynx normal Neck: trachea midline, no thyromegaly Respiratory: normal respiratory effort (diminished breath sounds at the bases bilaterally) Cardiovascular: Rate/Rhythm: regular rate and regular rhythm Extremities: no edema Gastrointestinal (Abdomen): normal bowel sounds, soft, nontender, no hepatosplenomegaly Neurologic: Speech / Cognition: normal speech and normal cognition Results & Data Vital Signs (Past 12 Hours) Vital Signs Temp Pulse Pulse Resp BP Pulse Ox O2 Del Method 03/30/23 07:28 36.5 C 60 18 102/63 90 Nebulizer 03/30/23 07:10 69 22 90 Nasal Cannula 03/30/23 07:00 60 03/30/23 03:58 36.8 C 67 24 90 Nasal Cannula 03/30/23 01:00 60 03/29/23 23:42 37.1 C 61 16 119/66 93 Nasal Cannula O2 Flow Rate 03/30/23 07:28 03/30/23 07:10 2 03/30/23 07:00 03/30/23 03:58 2 03/30/23 01:00 03/29/23 23:42 2 Laboratory Results Laboratory Tests 03/30/23 04:59 WBC 4.08 L Hgb 8.6 L Hct 27.9 L Plt Count 296 Sodium 136 Potassium 4.1 Chloride 102 Carbon Dioxide 27 BUN 35 H Creatinine 3.23 H Glucose 97 Laboratory Tests 03/30/23 04:59 Transferrin % Sat 11 L Ferritin 58.8 03/30/23 CXR - CMG w/ pulmonary vascular congestion, layering pleural effusions with bibasilar consolidation redomonstrated PG Care Time/CCT Total # of Minutes Spent Total Time Spent with Patient: Total time spent is greater than 50% in coordination of care (as documented) at patient's floor/unit and/or counseling patient: Coding Level of Care Code 69678 SUB INP/OBS CARE 3/50MIN Diagnoses Acute kidney injury N17.9 CKD (chronic kidney disease) stage 4, GFR 15-29 ml/min N18.4 CHF (congestive heart failure) I50.9 Anemia, unspecified D64.9
[2023-03-30] MEDS ORDERED: metOLazone 2.5 MG TABLET PO ONE (09:30)
[2023-03-30] MEDS: IRON SUCROSE 300 MG in SODIUM CHLORIDE 0.9% 250 ML IV SCH (11:03)
--- NOTE | 2023-03-30 13:43 | Hospitalist Progress Note ---
Date of Service March 30, 2023 Assessment & Plan (1) Hypoxia: Plan: Most likely secondary to CHF exacerbation in the setting of CKD progression and mild asthma exacerbation Improving with diuresis Chest x-ray showed bilateral pleural effusions. BNP was elevated. Respiratory panel was negative patient got a few doses of IV Bumex 2 mg Bumex was switched to p.o. today. However chest x-ray shows pulmonary edema and bilateral pleural effusions Database Administration Project Manager ordered metolazone along with Bumex this morning Monitor BMP Monitor clinically (2) CHF exacerbation: Plan: -Has been admitted multiple times over the past 2 months for CHF exacerbations - Bumex switched from IV to p.o. per nephrology . Metolazone added today. Monitor BMP creatinine rising. Nephrology involved Patient has cardiorenal syndrome (3) Asthma: Plan: -Patient responded well to DuoNeb given on admission, symptoms improved and she is much less wheezy on Auscultation -Will hold steroids for now and continue Scheduled DuoNebs; -Continue home budesonide-formoterol; will use Nebulized forms while admitted -Incentive spirometry/flutter therapy (4) Chest tightness: Plan: -Patient has been experiencing intermittent chest tightness/pressure over the past week -Confirms this feels similar to her normal asthma symptoms -Wheezing noted BL on exam today -Likely due to both asthma and BL moderate pleural effusions -ECG is without acute ST segment or T-wave changes, high sen trop is negative, low suspicion for ACS at this time -Low suspicion for PE, see hypoxia -Will give a DuoNeb treatment now and obtain mag level, if stable will give 2gm IV mag sulfate as well -If she has improvement with DuoNeb will scheduled additional treatments -Continue to treat BL pleural effusions with bumex Improved clinically. No tightness today. (5) Type II diabetes mellitus: Plan: -Hold Trulicity -Monitor BSG ACHS, goal is 110-140 -Tolerated sliding scale alone last admission -Will start CF of 50 ACHS, hold CR to avoid hypoglycemia for now -HH/DMII diet (6) CKD (chronic kidney disease): Plan: -Cr increased from 3.09-3.23 today. Database Administration Project Manager on board Secondary to cardiorenal syndrome -Patient has been recovering from JULIO with cr in the 4's last month due to 2mg PO bumex outpatient with lisinopril use -Monitor daily renal function, daily weights, avoid nephrotoxic agents (7) Psoriasis: Plan: -Patient has been taking 5 mg Prednisone HS for years for her Psoriasis with arthritis -she has always had trouble sleeping, never thought to associate insomnia with her Prednisone - continue prednisone that has been ordered for every morning. (8) Hypothyroidism: Plan: -Continue levothyroxine (9) Paroxysmal atrial fibrillation: Plan: -Stable; S/P ICD placement -Continue Carvedilol, amiodarone, and Eliquis (10) Acute respiratory failure with hypoxia: Admission and Anticipated Discharge Date Admission Date: March 27, 2023 Subjective patient feels slightly more short of breath today. No leg swelling. Belly does not feel distended. Review of Systems Review of Systems: All systems reviewed & are unremarkable except as noted in Subjective Physical Exam Physical Exam: General: Awake, conversant Heart: S1, S2/regular rate and rhythm, no murmur rubs or gallops Lungs: Bibasilar crackles. Normal effort Abdomen: Soft/nontender/nondistended. No hepatosplenomegaly Extremities: No clubbing/cyanosis. trace edema Behavior: Appropriate, cooperative Results & Data Results & Data Vital Signs (Past 12 Hours) Vital Signs Temp Pulse Pulse Resp BP Pulse Ox O2 Del Method 03/30/23 11:13 36.6 C 72 18 93/60 L 92 Room Air 03/30/23 10:30 Nasal Cannula 03/30/23 07:28 36.5 C 60 18 102/63 90 Nebulizer 03/30/23 07:10 69 22 90 Nasal Cannula 03/30/23 07:00 60 03/30/23 03:58 36.8 C 67 24 90 Nasal Cannula O2 Flow Rate 03/30/23 11:13 03/30/23 10:30 3 03/30/23 07:28 03/30/23 07:10 2 03/30/23 07:00 03/30/23 03:58 2 Laboratory Results Abnormal lab results 03/29/23 03/29/23 03/30/23 Range/Units 17:16 20:33 04:59 WBC 4.08 L (4.8-10.8) K/ul RBC 3.33 L (4.20-5.40) M/uL Hgb 8.6 L (12.0-16.0) g/dl Hct 27.9 L (37.0-47.0) % MCHC 30.8 L (32.0-36.0) g/dL RDW Std Deviation 60.7 H (36.4-46.3) fL RDW Coeff of Amrita 19.9 H (11.5-14.5) % Lymph # (Auto) 1.03 L (1.20-3.40) K/uL PT 14.0 H (9.0-12.0) Seconds INR 1.3 H (0.9-1.1) BUN 35 H (6-23) mg/dl Creatinine 3.23 H (0.6-1.2) mg/dl POC Glucose 132 H 104 H (70-99) mg/dl Iron 26 L (35-150) mcg/dl TIBC 232 L (250-450) mcg/dl Transferrin % Sat 11 L (15-50) % 03/30/23 03/30/23 Range/Units 08:27 12:25 WBC (4.8-10.8) K/ul RBC (4.20-5.40) M/uL Hgb (12.0-16.0) g/dl Hct (37.0-47.0) % MCHC (32.0-36.0) g/dL RDW Std Deviation (36.4-46.3) fL RDW Coeff of Amrita (11.5-14.5) % Lymph # (Auto) (1.20-3.40) K/uL PT (9.0-12.0) Seconds INR (0.9-1.1) BUN (6-23) mg/dl Creatinine (0.6-1.2) mg/dl POC Glucose 116 H 151 H (70-99) mg/dl Iron (35-150) mcg/dl TIBC (250-450) mcg/dl Transferrin % Sat (15-50) % Diagnostic Findings Chest X-Ray 03/30/23 06:00 XR chest 1V portable HISTORY: 77 years-old Female CHF acute shortness of breath COMPARISON: 03/27/2023 TECHNIQUE: AP view of the chest FINDINGS: Cardiac silhouette is enlarged. Left subclavian pacer/AICD. Pulmonary vascular congestion. Layering pleural effusions with bibasilar consolidation redemonstrated. Degenerative changes of the right shoulder and spine. Left shoulder arthroplasty. IMPRESSION: 1. Cardiomegaly with pulmonary vascular congestion. 2. Layering pleural effusions with bibasilar consolidation redemonstrated. ACT 112: Negative or not required by law. The above report was generated using voice recognition software. It may contain grammatical, syntax or spelling errors. Electronically signed by: Haseeb Steiner M.D. 03/30/2023 7:24 AM PG Care Time/CCT Total # of Minutes Spent Total Time Spent with Patient: Total time spent is greater than 50% in coordination of care (as documented) at patient's floor/unit and/or counseling patient: Coding Level of Care Code 04377 SUB INP/OBS CARE 2/35MIN Diagnoses Hypoxia R09.02 CHF exacerbation I50.9 Asthma J45.909 Chest tightness R07.89 Type 2 diabetes mellitus with stage 4 chronic kidney disease, without long-term current use of insulin E11.22; N18.4 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 halfway insulin use: without long term care administrator use 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 complication status: with kidney complications 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 complication detail: with chronic kidney disease Chronic kidney disease stage: stage 4 (severe) CKD (chronic kidney disease) N18.9 Psoriasis L40.9 Hypothyroidism E03.9 Paroxysmal atrial fibrillation I48.0 Acute respiratory failure with hypoxia J96.01 (5) Type II diabetes mellitus 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 long term care administrator insulin use: without halfway use 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 complication status: with kidney complications 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 compl ication detail: with chronic kidney disease Chronic kidney disease stage: stage 4 (severe) Qualified Code(s): E11.22 - Type 2 diabetes mellitus with diabetic chronic kidney disease; N18.4 - Chronic kidney disease, stage 4 (severe)
[2023-03-30] MEDS: ATORVASTATIN 40 MG TAB PO SCH (20:22)
[2023-03-30] MEDS: NIFEdipine EXTENDED REL 30 MG TABCR PO SCH (20:22)
[2023-03-30] MEDS ORDERED: CHOLESTYRAMINE LIGHT 4 GM PKT PO STA (23:34)
[2023-03-31] MEDS: LEVOTHYROXINE SODIUM 137 MCG TABLET PO SCH (05:23)
[2023-03-31 05:24] LABS: Hematocrit (blood only) 28.1 % (37.0-47.0); Hemoglobin 8.9 g/dl (12.0-16.0); Mean Corpuscular Hemoglobin 25.9 pg (25.0-34.0); Mean Corpuscular Hgb Conc 31.7 g/dL (32.0-36.0); Mean Corpuscular Volume 81.9 fL (80.0-100.0); Mean Platelet Volume 10.4 fL (9.4-12.4); Platelet Count 277 K/uL (130-400); RDW Standard Deviation 59.6 fL (36.4-46.3); Red Blood Count 3.43 M/uL (4.20-5.40); White Blood Count 4.87 K/ul (4.8-10.8)
[2023-03-31 05:34] LABS: BUN Creatinine Ratio 12.4 (10-20); Calcium 8.6 mg/dl (8.6-10.3); Est GFR (African American) 16.9 ml/min; Est GFR (Non-African American) 14.5 ml/min; Potassium 3.5 mmol/L (3.5-5.1)
[2023-03-31] MEDS: BUDESONIDE 0.5 MG/2 ML VIAL (PULMICORT) NEB SCH ×2 (07:26→19:55)
[2023-03-31] MEDS: FORMOTEROL 20 MCG/2 ML VIAL NEB SCH ×2 (07:26→19:55)
[2023-03-31] MEDS: INSULIN ASPART PER UNIT CHARGE SC SCH ×4 (08:23→20:32)
[2023-03-31] MEDS: IRON SUCROSE 300 MG in SODIUM CHLORIDE 0.9% 250 ML IV SCH (08:24)
[2023-03-31] MEDS: ONDANSETRON INJ 2 MG/ML 2 ML VIAL IV PRN (08:24)
[2023-03-31] MEDS: POTASSIUM CHLORIDE CRTAB 20 MEQ TABCR PO SCH (09:22)
[2023-03-31] MEDS: APIXABAN 5 MG TABLET PO SCH ×2 (09:22→20:02)
[2023-03-31] MEDS: PANTOprazole 40 MG TAB PO SCH (09:23)
[2023-03-31] MEDS: carvediloL 25 MG TAB PO SCH ×2 (09:23→17:09)
[2023-03-31] MEDS: MONTELUKAST SODIUM 10 MG TABLET PO SCH (09:23)
[2023-03-31] MEDS: AMIODARONE 200 MG TAB PO SCH (09:23)
[2023-03-31] MEDS: predniSONE 5 MG TAB PO SCH (09:23)
[2023-03-31] MEDS: DULoxetine HCL 60 MG CAP PO SCH (09:24)
[2023-03-31] MEDS: ACETAMINOPHEN 500 MG TAB PO SCH ×2 (09:24→20:01)
[2023-03-31] MEDS: BUMETANIDE 1 MG TAB PO SCH (09:24)
[2023-03-31] MEDS: CALCITRIOL 0.25 MCG CAPSULE PO SCH (09:24)
[2023-03-31] MEDS: MAGNESIUM OXIDE 400 MG TAB PO SCH ×2 (09:25→20:02)
[2023-03-31] MEDS ORDERED: BUMETANIDE 1 MG TAB PO ONE (10:00)
--- NOTE | 2023-03-31 10:10 | Nephrology Progress Note ---
Date of Service March 31, 2023 Assessment & Plan (1) Acute kidney injury: Plan: * JULIO due to CRS. LVEF 35-40% (01/24/23 echo) * Urine sediment is acellular. UPCR 0.2 * Poor response to diuretic therapy yesterday. I&O essentially matched. Would like to see net 1L diuresis each day. Will increase Bumex to 4mg po this am * Monitor PRP, UO, daily weight (2) CKD (chronic kidney disease) stage 4, GFR 15-29 ml/min: Plan: * Baseline Cr 2.0 w/ EGFR 25 cc/min. Renal impairment is on the basis of microvascular disease and hypertensive nephrosclerosis (3) CHF (congestive heart failure): Plan: * Reviewed 1500 mg NaCl restricted diet w/ patient on admission. She receives meals from meals on wheels and notes that they are low Na * Patient remains nonoliguric. Will increase Bumex dose this am as outlined above * Monitor I&O, daily weight (4) Anemia, unspecified: Plan: * Hgb 8.9 today * Iron sat 11% w/ ferritin 58 * Day #2 of 4 IV Venofer Admission and Anticipated Discharge Date Admission Date: March 27, 2023 Subjective Ms. Vergara was evaluated in her hospital room this morning. Her breathing is subjectively improved, but she still remains on O2 at 2 L/min NC. She denies angina Review of Systems Constitutional: no fever Eyes: no problem reported Ear, Nose, Mouth, Throat: no problem reported Respiratory: no cough and no dyspnea Cardiovascular: no chest pain Gastrointestinal: no abdominal pain, no nausea, no vomiting and no diarrhea/loose stools Genitourinary: no dysuria Integumentary: no rash Physical Exam Constitutional: not in distress Eyes: PERRL, conjunctivae normal, anicteric sclerae ENMT: external ear and nose normal, oropharynx normal Neck: trachea midline, no thyromegaly Respiratory: normal respiratory effort (diminished breath sounds at the bases bilaterally) Cardiovascular: Rate/Rhythm: regular rate and regular rhythm Extremities: no edema Gastrointestinal (Abdomen): normal bowel sounds, soft, nontender, no hepatosplenomegaly Neurologic: Speech / Cognition: normal speech and normal cognition Results & Data Vital Signs (Past 12 Hours) Vital Signs Temp Pulse Pulse Resp BP Pulse Ox O2 Del Method 03/31/23 07:26 16 91 Nasal Cannula 03/31/23 07:17 36.7 C 60 17 112/68 92 Nasal Cannula 03/31/23 02:39 36.8 C 63 20 101/58 L 92 Nasal Cannula 03/30/23 23:25 36.7 C 63 20 99/60 L 93 Nasal Cannula 03/30/23 22:49 60 03/30/23 22:09 Nasal Cannula O2 Flow Rate 03/31/23 07:26 4 03/31/23 07:17 4 03/31/23 02:39 2 03/30/23 23:25 2 03/30/23 22:49 03/30/23 22:09 3 Laboratory Results Laboratory Tests 03/30/23 03/31/23 04:59 04:56 Sodium 136 Potassium 3.5 Chloride 101 Carbon Dioxide 27 BUN 37 H Creatinine 3.23 H 2.99 H Est GFR (Non-Af Amer) 14.5 Calcium 8.6 PG Care Time/CCT Total # of Minutes Spent Total Time Spent with Patient: Total time spent is greater than 50% in coordination of care (as documented) at patient's floor/unit and/or counseling patient: Coding Level of Care Code 02760 SUB INP/OBS CARE 3/50MIN Diagnoses Acute kidney injury N17.9 CKD (chronic kidney disease) stage 4, GFR 15-29 ml/min N18.4 CHF (congestive heart failure) I50.9 Anemia, unspecified D64.9
[2023-03-31] MEDS ORDERED: CHOLESTYRAMINE LIGHT 4 GM PKT PO PRN (15:16)
--- NOTE | 2023-03-31 18:26 | Hospitalist Progress Note ---
Date of Service March 31, 2023 Assessment & Plan (1) Hypoxia: Plan: Most likely secondary to CHF exacerbation in the setting of CKD progression and mild asthma exacerbation Improving with diuresis Chest x-ray showed bilateral pleural effusions. BNP was elevated. Respiratory panel was negative patient got a few doses of IV Bumex 2 mg Bumex was switched to p.o. today. However chest x-ray shows pulmonary edema and bilateral pleural effusions Lan Analyst ordered metolazone along with Bumex this morning Monitor BMP Monitor clinically (2) CHF exacerbation: Plan: -Has been admitted multiple times over the past 2 months for CHF exacerbations - Patient received extra dose of Bumex today, Bumex and metolazone has been discontinued by nephrology Monitor BMP creatinine rising. Nephrology involved Patient has cardiorenal syndrome (3) Asthma: Plan: -Patient responded well to DuoNeb given on admission, symptoms improved and she is much less wheezy on Auscultation -Will hold steroids for now and continue Scheduled DuoNebs; -Continue home budesonide-formoterol; will use Nebulized forms while admitted -Incentive spirometry/flutter therapy (4) Chest tightness: Plan: -Patient has been experiencing intermittent chest tightness/pressure over the past week -Confirms this feels similar to her normal asthma symptoms -Wheezing noted BL on exam today -Likely due to both asthma and BL moderate pleural effusions -ECG is without acute ST segment or T-wave changes, high sen trop is negative, low suspicion for ACS at this time -Low suspicion for PE, see hypoxia -Will give a DuoNeb treatment now and obtain mag level, if stable will give 2gm IV mag sulfate as well -If she has improvement with DuoNeb will scheduled additional treatments -Continue to treat BL pleural effusions with bumex Improved clinically. No tightness today. (5) Type II diabetes mellitus: Plan: -Hold Trulicity -Monitor BSG ACHS, goal is 110-140 -Tolerated sliding scale alone last admission -Will start CF of 50 ACHS, hold CR to avoid hypoglycemia for now -HH/DMII diet (6) CKD (chronic kidney disease): Plan: -Cr increased from 3.09-3.23 today. Lan Analyst on board Secondary to cardiorenal syndrome -Patient has been recovering from JULIO with cr in the 4's last month due to 2mg PO bumex outpatient with lisinopril use -Monitor daily renal function, daily weights, avoid nephrotoxic agents (7) Psoriasis: Plan: -Patient has been taking 5 mg Prednisone HS for years for her Psoriasis with arthritis -she has always had trouble sleeping, never thought to associate insomnia with her Prednisone - continue prednisone that has been ordered for every morning. (8) Hypothyroidism: Plan: -Continue levothyroxine (9) Paroxysmal atrial fibrillation: Plan: -Stable; S/P ICD placement -Continue Carvedilol, amiodarone, and Eliquis (10) Acute respiratory failure with hypoxia: Admission and Anticipated Discharge Date Admission Date: March 27, 2023 Subjective No acute issues today, discussed with nephrology, he is still requiring oxygen, patient received extra dose of Bumex, hold Bumex for tomorrow as per my discussion with nephrology Review of Systems Constitutional: no fever Eyes: no problem reported Ear, Nose, Mouth, Throat: no problem reported Respiratory: no cough and no dyspnea Cardiovascular: no chest pain Gastrointestinal: no abdominal pain, no nausea, no vomiting and no diarrhea/loose stools Genitourinary: no dysuria Integumentary: no rash Physical Exam Physical Exam: General: Awake, conversant Heart: S1, S2/regular rate and rhythm, no murmur rubs or gallops Lungs: Bibasilar crackles. Normal effort Abdomen: Soft/nontender/nondistended. No hepatosplenomegaly Extremities: No clubbing/cyanosis. trace edema Behavior: Appropriate, cooperative Constitutional: not in distress Eyes: PERRL, conjunctivae normal, anicteric sclerae ENMT: external ear and nose normal, oropharynx normal Neck: trachea midline, no thyromegaly Respiratory: normal respiratory effort (diminished breath sounds at the bases bilaterally) Cardiovascular: Rate/Rhythm: regular rate and regular rhythm Extremities: no edema Gastrointestinal (Abdomen): normal bowel sounds, soft, nontender, no hepatosplenomegaly Neurologic: Speech / Cognition: normal speech and normal cognition Results & Data Results & Data Vital Signs (Past 12 Hours) Vital Signs Temp Pulse Pulse Resp BP Pulse Ox Pulse Ox 03/31/23 16:05 66 03/31/23 16:02 36.5 C 65 20 105/64 96 03/31/23 10:07 90 03/31/23 09:30 03/31/23 07:26 16 91 03/31/23 07:17 36.7 C 60 17 112/68 92 03/31/23 07:00 63 Pulse Ox Pulse Ox O2 Del Method O2 Flow Rate O2 Flow Rate O2 Flow Rate O2 Flow Rate 03/31/23 16:05 03/31/23 16:02 Nasal Cannula 3 03/31/23 10:07 91 89 L 4 4 4 03/31/23 09:30 Nasal Cannula 03/31/23 07:26 Nasal Cannula 4 03/31/23 07:17 Nasal Cannula 4 03/31/23 07:00 PG Care Time/CCT Total # of Minutes Spent Total Time Spent with Patient: Total time spent is greater than 50% in coordination of care (as documented) at patient's floor/unit and/or counseling patient: Coding Level of Care Code 96712 SUB INP/OBS CARE 3/50MIN Diagnoses Hypoxia R09.02 CHF exacerbation I50.9 Asthma J45.909 Chest tightness R07.89 Type 2 diabetes mellitus with stage 4 chronic kidney disease, without long-term current use of insulin E11.22; N18.4 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 alf insulin use: without alf use 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 complication status: with kidney complications 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 complication detail: with chronic kidney disease Chronic kidney disease stage: stage 4 (severe) CKD (chronic kidney disease) N18.9 Psoriasis L40.9 Hypothyroidism E03.9 Paroxysmal atrial fibrillation I48.0 Acute respiratory failure with hypoxia J96.01 (5) Type II diabetes mellitus 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 buttermaker continuous churn insulin use: without buttermaker continuous churn use 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 complication status: with kidney complications 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 complication detail: with chronic kidney disease Chronic kidney disease stage: stage 4 (severe) Qualified Code(s): E11.22 - Type 2 diabetes mellitus with diabetic chronic kidney disease; N18.4 - Chronic kidney disease, stage 4 (severe)
[2023-03-31] MEDS: NIFEdipine EXTENDED REL 30 MG TABCR PO SCH (20:01)
[2023-03-31] MEDS: ATORVASTATIN 40 MG TAB PO SCH (20:02)
[2023-04-01 04:20] LABS: Hematocrit (blood only) 26.8 % (37.0-47.0); Hemoglobin 8.4 g/dl (12.0-16.0); Mean Corpuscular Hemoglobin 25.6 pg (25.0-34.0); Mean Corpuscular Hgb Conc 31.3 g/dL (32.0-36.0); Mean Corpuscular Volume 81.7 fL (80.0-100.0); Mean Platelet Volume 10.2 fL (9.4-12.4); Platelet Count 269 K/uL (130-400); RDW Standard Deviation 58.9 fL (36.4-46.3); Red Blood Count 3.28 M/uL (4.20-5.40); White Blood Count 5.83 K/ul (4.8-10.8)
[2023-04-01 04:51] LABS: Calcium 8.6 mg/dl (8.6-10.3); Potassium 3.1 mmol/L (3.5-5.1)
[2023-04-01 04:57] LABS: BUN Creatinine Ratio 11.8 (10-20); Est GFR (African American) 15.9 ml/min; Est GFR (Non-African American) 13.7 ml/min
[2023-04-01] MEDS: LEVOTHYROXINE SODIUM 137 MCG TABLET PO SCH (05:38)
[2023-04-01] MEDS: FORMOTEROL 20 MCG/2 ML VIAL NEB SCH ×2 (07:14→19:44)
[2023-04-01] MEDS: BUDESONIDE 0.5 MG/2 ML VIAL (PULMICORT) NEB SCH ×2 (07:14→19:44)
[2023-04-01] MEDS ORDERED: BUMETANIDE 1 MG TAB PO ONE (08:51)
[2023-04-01] MEDS ORDERED: POTASSIUM CHLORIDE CRTAB 20 MEQ TABCR PO ONE (08:53)
[2023-04-01] MEDS: carvediloL 25 MG TAB PO SCH ×2 (09:26→18:11)
[2023-04-01] MEDS: ACETAMINOPHEN 500 MG TAB PO SCH ×2 (09:27→21:32)
[2023-04-01] MEDS: APIXABAN 5 MG TABLET PO SCH ×2 (09:27→21:31)
[2023-04-01] MEDS: AMIODARONE 200 MG TAB PO SCH (09:27)
[2023-04-01] MEDS: MONTELUKAST SODIUM 10 MG TABLET PO SCH (09:28)
[2023-04-01] MEDS: MAGNESIUM OXIDE 400 MG TAB PO SCH ×2 (09:28→21:32)
[2023-04-01] MEDS: PANTOprazole 40 MG TAB PO SCH (09:28)
[2023-04-01] MEDS: CALCITRIOL 0.25 MCG CAPSULE PO SCH (09:28)
[2023-04-01] MEDS: DULoxetine HCL 60 MG CAP PO SCH (09:28)
[2023-04-01] MEDS: predniSONE 5 MG TAB PO SCH (09:29)
[2023-04-01] MEDS: POTASSIUM CHLORIDE CRTAB 20 MEQ TABCR PO SCH (09:29)
[2023-04-01] MEDS: INSULIN ASPART PER UNIT CHARGE SC SCH ×4 (09:49→21:27)
--- NOTE | 2023-04-01 10:37 | Nephrology Progress Note ---
Date of Service April 01, 2023 Assessment & Plan (1) Acute kidney injury: Plan: * JULIO due to CRS. LVEF 35-40% (01/24/23 echo) * Urine sediment is acellular. UPCR 0.2 * Uo 2100 cc last shift * Will continue Bumex 4 mg po this am * Monitor PRP, UO, daily weight (2) CKD (chronic kidney disease) stage 4, GFR 15-29 ml/min: Plan: * Baseline Cr 2.0 w/ EGFR 25 cc/min. Renal impairment is on the basis of microvascular disease and hypertensive nephrosclerosis (3) CHF (congestive heart failure): Plan: * Reviewed 1500 mg NaCl restricted diet w/ patient on admission. She receives meals from meals on wheels and notes that they are low Na * Patient remains nonoliguric. Will increase Bumex dose this am as outlined above * Monitor I&O, daily weight * CXR 03/30/23 shows bilateral pleural effusions. Consider consultation w/ Pulmonology for thoracentesis * Will repeat CXR in am (4) Anemia, unspecified: Plan: * Hgb 8.4 today * Iron sat 11% w/ ferritin 58 * Day #3 of 4 IV Venofer Admission and Anticipated Discharge Date Admission Date: March 27, 2023 Subjective Ms. Vergara was evaluated in her hospital room this morning. Her breathing is subjectively improved, but she still remains on O2 at 4 L/min NC. She denies angina Review of Systems Constitutional: no fever Eyes: no problem reported Ear, Nose, Mouth, Throat: no problem reported Respiratory: no cough and no dyspnea Cardiovascular: no chest pain Gastrointestinal: no abdominal pain, no nausea, no vomiting and no diarrhea/loose stools Genitourinary: no dysuria Integumentary: no rash Physical Exam Constitutional: not in distress Eyes: PERRL, conjunctivae normal, anicteric sclerae ENMT: external ear and nose normal, oropharynx normal Neck: trachea midline, no thyromegaly Respiratory: normal respiratory effort (diminished breath sounds at the bases bilaterally) Cardiovascular: Rate/Rhythm: regular rate and regular rhythm Extremities: no edema Gastrointestinal (Abdomen): normal bowel sounds, soft, nontender, no hepatosplenomegaly Neurologic: Speech / Cognition: normal speech and normal cognition Results & Data Vital Signs (Past 12 Hours) Vital Signs Temp Pulse Pulse Resp BP Pulse Ox O2 Del Method 04/01/23 07:31 62 16 117/65 84 L Nasal Cannula 04/01/23 07:17 68 18 91 Nasal Cannula 04/01/23 03:12 36.8 C 66 18 122/64 93 Nasal Cannula 03/31/23 23:24 60 03/31/23 22:57 36.7 C 60 18 120/70 94 Nasal Cannula O2 Flow Rate 04/01/23 07:31 4 04/01/23 07:17 4 04/01/23 03:12 3 03/31/23 23:24 03/31/23 22:57 3 Laboratory Results Laboratory Tests 03/30/23 03/31/23 04/01/23 04:59 04:56 03:16 WBC 5.83 Hgb 8.4 L Hct 26.8 L Plt Count 269 Sodium 136 Potassium 3.1 L Chloride 99 Carbon Dioxide 29 BUN 37 H Creatinine 3.23 H 2.99 H 3.14 H Glucose 73 Calcium 8.6 PG Care Time/CCT Total # of Minutes Spent Total Time Spent with Patient: Total time spent is greater than 50% in coordination of care (as documented) at patient's floor/unit and/or counseling patient: Coding Level of Care Code 30305 SUB INP/OBS CARE 3/50MIN Diagnoses Acute kidney injury N17.9 CKD (chronic kidney disease) stage 4, GFR 15-29 ml/min N18.4 CHF (congestive heart failure) I50.9 Anemia, unspecified D64.9
[2023-04-01] MEDS: IRON SUCROSE 300 MG in SODIUM CHLORIDE 0.9% 250 ML IV SCH (11:26)
--- NOTE | 2023-04-01 15:54 | XRay Report ---
XR chest 1V portable HISTORY: Shortness of breath. COMPARISON: Chest 03/30/2023. FINDINGS: No pneumothorax. There is left-sided pacemaker/defibrillator again noted. There is a left s houlder prosthesis. Mild pulmonary edema, bilateral pleural effusions, bibasilar densities have sligh tly improved. The heart remains enlarged. IMPRESSION: Slight improvement in the pulmonary edema and bibasilar effusions/densities ACT 112: Negative or not required by law. Electronically signed by: Juno Pang M.D. 04/01/2023 3:53 PM
--- NOTE | 2023-04-01 19:01 | Hospitalist Progress Note ---
Date of Service April 01, 2023 Assessment & Plan (1) Hypoxia: Plan: Most likely secondary to CHF exacerbation in the setting of CKD progression and mild asthma exacerbation Improving with diuresis Chest x-ray showed bilateral pleural effusions. BNP was elevated. Respiratory panel was negative patient got a few doses of IV Bumex 2 mg Bumex was switched to p.o. today. However chest x-ray shows pulmonary edema and bilateral pleural effusions Automotive Parts Coordinator ordered metolazone along with Bumex this morning Monitor BMP Monitor clinically (2) CHF exacerbation: Plan: -Has been admitted multiple times over the past 2 months for CHF exacerbations - Patient received extra dose of Bumex today, Bumex and metolazone has been discontinued by nephrology Monitor BMP creatinine rising. Nephrology involved Patient has cardiorenal syndrome (3) Asthma: Plan: -Patient responded well to DuoNeb given on admission, symptoms improved and she is much less wheezy on Auscultation -Will hold steroids for now and continue Scheduled DuoNebs; -Continue home budesonide-formoterol; will use Nebulized forms while admitted -Incentive spirometry/flutter therapy (4) Chest tightness: Plan: -Patient has been experiencing intermittent chest tightness/pressure over the past week -Confirms this feels similar to her normal asthma symptoms -Wheezing noted BL on exam today -Likely due to both asthma and BL moderate pleural effusions -ECG is without acute ST segment or T-wave changes, high sen trop is negative, low suspicion for ACS at this time -Low suspicion for PE, see hypoxia -Will give a DuoNeb treatment now and obtain mag level, if stable will give 2gm IV mag sulfate as well -If she has improvement with DuoNeb will scheduled additional treatments -Continue to treat BL pleural effusions with bumex Improved clinically. No tightness today. (5) Type II diabetes mellitus: Plan: -Hold Trulicity -Monitor BSG ACHS, goal is 110-140 -Tolerated sliding scale alone last admission -Will start CF of 50 ACHS, hold CR to avoid hypoglycemia for now -HH/DMII diet (6) CKD (chronic kidney disease): Plan: -Cr increased from 3.09-3.23 today. Automotive Parts Coordinator on board Secondary to cardiorenal syndrome -Patient has been recovering from JULIO with cr in the 4's last month due to 2mg PO bumex outpatient with lisinopril use -Monitor daily renal function, daily weights, avoid nephrotoxic agents (7) Psoriasis: Plan: -Patient has been taking 5 mg Prednisone HS for years for her Psoriasis with arthritis -she has always had trouble sleeping, never thought to associate insomnia with her Prednisone - continue prednisone that has been ordered for every morning. (8) Hypothyroidism: Plan: -Continue levothyroxine (9) Paroxysmal atrial fibrillation: Plan: -Stable; S/P ICD placement -Continue Carvedilol, amiodarone, and Eliquis (10) Acute respiratory failure with hypoxia: Admission and Anticipated Discharge Date Admission Date: March 27, 2023 Subjective Ms. Vergara was evaluated in her hospital room this morning. Her breathing is subjectively improved, but she still remains on O2 at 4 L/min NC. She denies angina Review of Systems Constitutional: no fever Eyes: no problem reported Ear, Nose, Mouth, Throat: no problem reported Respiratory: no cough and no dyspnea Cardiovascular: no chest pain Gastrointestinal: no abdominal pain, no nausea, no vomiting and no diarrhea/loose stools Genitourinary: no dysuria Integumentary: no rash Physical Exam Physical Exam: General: Awake, conversant Heart: S1, S2/regular rate and rhythm, no murmur rubs or gallops Lungs: Bibasilar crackles. Normal effort Abdomen: Soft/nontender/nondistended. No hepatosplenomegaly Extremities: No clubbing/cyanosis. trace edema Behavior: Appropriate, cooperative Constitutional: not in distress Eyes: PERRL, conjunctivae normal, anicteric sclerae ENMT: external ear and nose normal, oropharynx normal Neck: trachea midline, no thyromegaly Respiratory: normal respiratory effort (diminished breath sounds at the bases bilaterally) Cardiovascular: Rate/Rhythm: regular rate and regular rhythm Extremities: no edema Gastrointestinal (Abdomen): normal bowel sounds, soft, nontender, no hepatosplenomegaly Neurologic: Speech / Cognition: normal speech and normal cognition Results & Data Results & Data Vital Signs (Past 12 Hours) Vital Signs Temp Pulse Pulse Resp BP Pulse Ox O2 Del Method 04/01/23 15:36 36.8 C 60 16 113/72 91 Nasal Cannula 04/01/23 15:00 60 04/01/23 12:28 Nasal Cannula 04/01/23 11:32 36.9 C 67 16 101/62 94 Nasal Cannula 04/01/23 07:31 62 16 117/65 84 L Nasal Cannula 04/01/23 07:17 68 18 91 Nasal Cannula O2 Flow Rate 04/01/23 15:36 4 04/01/23 15:00 04/01/23 12:28 2 04/01/23 11:32 4 04/01/23 07:31 4 04/01/23 07:17 4 PG Care Time/CCT Total # of Minutes Spent Total Time Spent with Patient: Total time spent is greater than 50% in coordination of care (as documented) at patient's floor/unit and/or counseling patient: Coding Level of Care Code 48064 SUB INP/OBS CARE 2/35MIN Diagnoses Hypoxia R09.02 CHF exacerbation I50.9 Asthma J45.909 Chest tightness R07.89 Type 2 diabetes mellitus with stage 4 chronic kidney disease, without long-term current use of insulin E11.22; N18.4 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 custodial insulin use: without equipment engineer use 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 complication status: with kidney complications 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 complication detail: with chronic kidney disease Chronic kidney disease stage: stage 4 (severe) CKD (chronic kidney disease) N18.9 Psoriasis L40.9 Hypothyroidism E03.9 Paroxysmal atrial fibrillation I48.0 Acute respiratory failure with hypoxia J96.01 (5) Type II diabetes mellitus 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 custodial insulin use: without equipment engineer use 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 complication status: with kidney complications 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 complication detail: with chronic kidney disease Chronic kidney disease stage: stage 4 (severe) Qualified Code(s): E11.22 - Type 2 diabetes mellitus with diabetic chronic kidney disease; N18.4 - Chronic kidney disease, stage 4 (severe)
[2023-04-01] MEDS: NIFEdipine EXTENDED REL 30 MG TABCR PO SCH (21:30)
[2023-04-01] MEDS: ATORVASTATIN 40 MG TAB PO SCH (21:31)
[2023-04-02] MEDS: LEVOTHYROXINE SODIUM 137 MCG TABLET PO SCH (05:34)
[2023-04-02 06:41] LABS: Hematocrit (blood only) 27.6 % (37.0-47.0); Hemoglobin 8.6 g/dl (12.0-16.0); Mean Corpuscular Hemoglobin 26.1 pg (25.0-34.0); Mean Corpuscular Hgb Conc 31.2 g/dL (32.0-36.0); Mean Corpuscular Volume 83.9 fL (80.0-100.0); Mean Platelet Volume 10.4 fL (9.4-12.4); Platelet Count 265 K/uL (130-400); RDW Coefficient of Variation 20.1 % (11.5-14.5); RDW Standard Deviation 60.7 fL (36.4-46.3); Red Blood Count 3.29 M/uL (4.20-5.40); White Blood Count 4.73 K/ul (4.8-10.8)
[2023-04-02 07:00] LABS: BUN Creatinine Ratio 12.6 (10-20); Calcium 8.6 mg/dl (8.6-10.3); Creatinine Clr Calc Pharmacy 20.2 ml/min; Est GFR (African American) 16.1 ml/min; Est GFR (Non-African American) 13.9 ml/min; Potassium 2.9 mmol/L (3.5-5.1)
[2023-04-02] MEDS: FORMOTEROL 20 MCG/2 ML VIAL NEB SCH ×2 (07:25→19:29)
[2023-04-02] MEDS: BUDESONIDE 0.5 MG/2 ML VIAL (PULMICORT) NEB SCH ×2 (07:25→19:29)
[2023-04-02] MEDS: INSULIN ASPART PER UNIT CHARGE SC SCH ×4 (08:48→20:44)
[2023-04-02] MEDS: POTASSIUM CHLORIDE CRTAB 20 MEQ TABCR PO SCH (08:49)
[2023-04-02] MEDS: MONTELUKAST SODIUM 10 MG TABLET PO SCH (08:49)
[2023-04-02] MEDS: CALCITRIOL 0.25 MCG CAPSULE PO SCH (08:49)
[2023-04-02] MEDS: PANTOprazole 40 MG TAB PO SCH (08:49)
[2023-04-02] MEDS: ACETAMINOPHEN 500 MG TAB PO SCH ×2 (08:49→20:44)
[2023-04-02] MEDS: predniSONE 5 MG TAB PO SCH (08:49)
[2023-04-02] MEDS: APIXABAN 5 MG TABLET PO SCH (08:50)
[2023-04-02] MEDS: MAGNESIUM OXIDE 400 MG TAB PO SCH ×2 (08:50→20:49)
[2023-04-02] MEDS: DULoxetine HCL 60 MG CAP PO SCH (08:50)
[2023-04-02] MEDS: AMIODARONE 200 MG TAB PO SCH (08:56)
[2023-04-02] MEDS: carvediloL 25 MG TAB PO SCH ×2 (08:56→18:06)
--- NOTE | 2023-04-02 09:12 | Nephrology Progress Note ---
Date of Service April 02, 2023 Assessment & Plan (1) Acute kidney injury: Plan: * JULIO due to CRS. LVEF 35-40% (01/24/23 echo) * Urine sediment is acellular. UPCR 0.2 * UO 1495 cc yesterday * Will continue Bumex 4 mg po this am * Monitor PRP, UO, daily weight (2) CKD (chronic kidney disease) stage 4, GFR 15-29 ml/min: Plan: * Baseline Cr 2.0 w/ EGFR 25 cc/min. Renal impairment is on the basis of microvascular disease and hypertensive nephrosclerosis (3) CHF (congestive heart failure): Plan: * Reviewed 1500 mg NaCl restricted diet w/ patient on admission. She receives meals from meals on wheels and notes that they are low Na * Diuresed 1495 cc yesterday * Will provide Bumex 4 mg po x1 this am * Additional 20 mEq KCl po x1 provided this am due to hypokalemia * Monitor I&O, daily weight * CXR 03/30/23 shows bilateral pleural effusions. Consider consultation w/ Pulmonology for thoracentesis (4) Anemia, unspecified: Plan: * Hgb 8.6 today * Iron sat 11% w/ ferritin 58 * Day #4 of 4 IV Venofer * Will provide Epogen 10,000 units SQ x1 Admission and Anticipated Discharge Date Admission Date: March 27, 2023 Subjective Ms. Vergara was evaluated in her hospital room this morning. Her breathing is subjectively improved. O2 has been reduced to 2 L/min NC. She denies angina Review of Systems Constitutional: no fever Eyes: no problem reported Ear, Nose, Mouth, Throat: no problem reported Respiratory: no cough and no dyspnea Cardiovascular: no chest pain Gastrointestinal: no abdominal pain, no nausea, no vomiting and no diarrhea/loose stools Genitourinary: no dysuria Integumentary: no rash Physical Exam Constitutional: not in distress Eyes: PERRL, conjunctivae normal, anicteric sclerae ENMT: external ear and nose normal, oropharynx normal Neck: trachea midline, no thyromegaly Respiratory: normal respiratory effort (diminished breath sounds at the bases bilaterally) Cardiovascular: Rate/Rhythm: regular rate and regular rhythm Extremities: no edema Gastrointestinal (Abdomen): normal bowel sounds, soft, nontender, no hepatosplenomegaly Neurologic: Speech / Cognition: normal speech and normal cognition Results & Data Vital Signs (Past 12 Hours) Vital Signs Temp Pulse Pulse Resp BP Pulse Ox O2 Del Method 04/02/23 08:57 64 103/65 04/02/23 07:51 36.7 C 60 16 96/54 L 94 Nasal Cannula 04/02/23 07:26 66 18 96 Nasal Cannula 04/02/23 03:26 95 Nasal Cannula 04/02/23 02:43 37.0 C 67 16 95/53 L 90 Nasal Cannula 04/01/23 23:00 36.9 C 60 16 113/63 96 Nasal Cannula 04/01/23 22:45 Nasal Cannula 04/01/23 22:00 60 O2 Flow Rate 04/02/23 08:57 04/02/23 07:51 4 04/02/23 07:26 4 04/02/23 03:26 4 04/02/23 02:43 4 04/01/23 23:00 4 04/01/23 22:45 4 04/01/23 22:00 Laboratory Results Laboratory Tests 03/30/23 04/02/23 04:59 06:08 WBC 4.73 L Hgb 8.6 L Hct 27.6 L Plt Count 265 Sodium 137 Potassium 2.9 L Chloride 98 Carbon Dioxide 31 BUN 39 H Creatinine 3.10 H Magnesium 2.0 PG Care Time/CCT Total # of Minutes Spent Total Time Spent with Patient: Total time spent is greater than 50% in coordination of care (as documented) at patient's floor/unit and/or counseling patient: Coding Level of Care Code 45988 SUB INP/OBS CARE 3/50MIN Diagnoses Acute kidney injury N17.9 CKD (chronic kidney disease) stage 4, GFR 15-29 ml/min N18.4 CHF (congestive heart failure) I50.9 Anemia, unspecified D64.9
[2023-04-02] MEDS ORDERED: POTASSIUM CHLORIDE 20 MEQ/15 ML UDC PO STA (09:20)
[2023-04-02] MEDS ORDERED: BUMETANIDE 1 MG TAB PO ONE (09:30)
[2023-04-02] MEDS: IRON SUCROSE 300 MG in SODIUM CHLORIDE 0.9% 250 ML IV SCH (09:47)
[2023-04-02] MEDS ORDERED: EPOETIN ALFA 10,000 UNITS/ML VIAL SQ ONE (11:09)
--- NOTE | 2023-04-02 16:56 | Pulmonary Consultation ---
Date of Consultation April 02, 2023 Assessment & Plan (1) Heart failure with reduced ejection fraction: (2) Acute respiratory failure with hypoxia: (3) CKD (chronic kidney disease) stage 4, GFR 15-29 ml/min: (4) Pleural effusion: Plan 77-year-old female with a history of asthma, ischemic cardiomyopathy, atrial fibrillation and ventricular tachycardia who is currently hospitalized due to an acute exacerbation of heart failure with a reduced ejection fraction. Pulmonary is consulted due to bilateral pleural effusions. I have performed a bedside ultrasound which revealed bilateral pleural effusions, right greater than left. They appear free-flowing and are likely secondary to acute CHF. She continues to have some chest tightness and oxygen requirements. She is at elevated risk due to bleeding from a pleural procedure due to her elevated BUN and anticoagulation status with Eliquis. We will hold Eliquis starting today and this will need to be held for 72 hours prior to thoracentesis. Patient is agreeable to thoracentesis if she continues to have persistent effusions in the next 3 days. Anticipate thoracentesis Thursday. We will consult cardiology for their thoughts on holding Eliquis and further optimizing her CHF regimen. Continue inhaler regimen for asthma. No signs of active asthma exacerbation at this time. Wean oxygen to maintain saturations above 89% Thank you for the consult. We will continue to follow with you. History of Present Illness Reason for Consultation: 77-year-old female with history of systolic CHF and hypoxia. Consult request for "hypoxia, pleural effusion, CKD 4, thoracentesis" Attending Physician: Willie Martinez MD History of Present Illness 77-year-old female with a history of paroxysmal atrial fibrillation, type 2 diabetes mellitus, CKD 4, hypothyroidism and ischemic cardiomyopathy who presented to the hospital 04/13/2023 due to ongoing shortness of breath. Her shortness of breath has improved somewhat during this hospital stay with diuresis and her oxygen requirements have improved as well. She has had numerous readmissions due to recurrent CHF exacerbations over the past few months. Chest x-ray reveals persistent bilateral effusions and vascular congestion which is mildly improved on the latest x-ray from 04/01/2023. She is anticoagulated with Eliquis 5 mg twice daily for A-fib. She is receiving 4 mg IV daily of Bumex for diuresis. She has severe deficiency anemia and is currently receiving IV iron. Allergies Allergy/AdvReac Type Severity Reaction Status Date / Time codeine Allergy Severe Anaphylaxis Verified 03/27/23 15:24 furosemide Allergy Severe SEVERE Verified 03/27/23 15:24 RASH, PT REPORTS A CROSS ALLERGY WITH SULFA celecoxib [From Celebrex] Allergy Intermediate RASH Verified 03/27/23 15:24 cephalexin [From Keflex] Allergy Intermediate Rash Verified 03/27/23 15:24 hydrocodone Allergy Intermediate Rash Verified 03/27/23 15:24 Iodinated Contrast Media Allergy Intermediate RASH Verified 03/27/23 15:24 nickel Allergy Intermediate Rash Verified 03/27/23 15:24 oxycodone Allergy Intermediate Rash Verified 03/27/23 15:24 Sulfa (Sulfonamide Allergy Intermediate RASH TO Verified 03/27/23 15:24 Antibiotics) SULFA DRUGS tetracycline Allergy Intermediate RASH Verified 03/27/23 15:24 capsaicin AdvReac Intermediate CREATINE Verified 03/27/23 15:24 ELEVATION diclofenac AdvReac Intermediate CREATINE Verified 03/27/23 15:24 ELEVATION propylene glycol AdvReac Intermediate CREATINE Verified 03/27/23 15:24 ELEVATION "PREP WITH BLUE DYE" Allergy Intermediate Rash Uncoded 03/27/23 15:24 Home Medications Medication Instructions Recorded Confirmed Type magnesium oxide 400 mg PO BID 07/26/18 03/27/23 History omega 0-mnp-vxp-fish oil 1,000 mg 1,000 mg PO BID 07/26/18 03/27/23 History (120 mg-180 mg) capsule (Fish Oil) cetirizine 10 mg tablet (Zyrtec) 10 mg PO HS 08/22/19 03/27/23 History betamethasone valerate 0.1 % 1 applic topical UD PRN PSORIASIS 11/30/19 03/27/23 History topical cream blood-glucose meter (Accu-Chek 02/12/21 03/26/23 History Garima Plus Meter) prednisone 5 mg tablet 5 mg PO HS #90 tabs 01/07/22 03/27/23 Rx nitroglycerin 0.4 mg/hr 1 patch transdermal QAM #90 ea 03/20/22 03/27/23 Rx transdermal 24 hour patch (Nitro-Dur) nifedipine 90 mg tablet,extended 90 mg PO HS #90 tabs 04/14/22 03/27/23 Rx release duloxetine 60 mg capsule,delayed 60 mg PO QAM #90 caps 05/12/22 03/27/23 Rx release (Cymbalta) cholestyramine (with sugar) 4 gram 4 ea PO DIRECTED PRN Diarrhea 08/26/22 03/27/23 History oral powder levothyroxine 137 mcg capsule 137 mcg PO DAILY #90 caps 08/27/22 03/27/23 Rx albuterol sulfate 90 mcg/actuation 2 puff inhalation Q6H PRN 09/30/22 03/27/23 Rx aerosol inhaler shortness of breath or wheezing #8.5 grams budesonide-formoterol HFA 80 2 puff inhalation BID #3 Inhalers 09/30/22 03/27/23 Rx mcg-4.5 mcg/actuation aerosol inhaler (Symbicort) azelastine 137 mcg (0.1 %) nasal 2 spray intranasal DAILY PRN 11/17/22 03/27/23 Rx spray aerosol ALLERGIES #30 mL blood sugar diagnostic (Accu-Chek #100 ea 12/19/22 03/26/23 Rx Garima Plus test strips) potassium chloride 20 mEq 20 meq PO QAM #90 tabs 01/09/23 03/27/23 Rx tablet,extended release(part/cryst) (Klor-Con M) apixaban 5 mg tablet (Eliquis) 5 mg PO BID #180 tabs 01/15/23 03/27/23 Rx montelukast 10 mg tablet 10 mg PO DAILY #90 tabs 01/19/23 03/27/23 Rx (Singulair) acetaminophen 650 mg 1,300 mg PO BID 01/20/23 03/27/23 History tablet,extended release (Tylenol Arthritis Pain) carvedilol 25 mg tablet 25 mg PO BID #60 tabs 01/31/23 03/27/23 Rx lansoprazole 30 mg capsule,delayed 30 mg PO DAILY #90 caps 02/04/23 03/27/23 Rx release atorvastatin 40 mg tablet 40 mg PO HS 02/10/23 03/27/23 History lisinopril 10 mg tablet 10 mg PO QAM #30 tabs 02/12/23 03/27/23 Rx bumetanide 2 mg tablet 1 mg (1/2 x 2 mg) PO DAILY #30 tabs 02/17/23 03/27/23 Rx Hospital Bed [facility] (Hospital [facility] ea 03/03/23 03/26/23 Rx Bed) dulaglutide 1.5 mg/0.5 mL 1.5 mg (0.5 mL) subcut ONCE #6 mL 03/03/23 03/27/23 Rx subcutaneous pen injector (Trulicity) amiodarone 200 mg tablet 200 mg PO DAILY #30 tabs 03/06/23 03/27/23 Rx levalbuterol HCl 0.63 mg/3 mL 0.63 mg (3 mL) inhalation Q4H PRN 03/16/23 03/27/23 Rx solution for nebulization Cough #90 mL doxycycline monohydrate 100 mg 100 mg PO BID 7 days #14 caps 03/20/23 03/27/23 Rx capsule calcitriol 0.5 mcg capsule 0.25 mcg PO DAILY 03/23/23 03/27/23 History Patient History Medical History (Updated 03/29/23 @ 11:25 by Junaid Stevenson MD) CKD (chronic kidney disease) stage 4, GFR 15-29 ml/min baseline creatinine 2.0-2.2 range; nephrology (Dr. Stevenson) monitoring Pulmonary edema Cardiomyopathy Non-ST elevation (NSTEMI) myocardial infarction Ventricular tachycardia Tachy-lina syndrome Elevated troponin Atrial fibrillation with RVR Sialoadenitis, unspecified Allergic rhinitis SI joint arthritis Abnormal PFT Mild persistent asthma Active asthma inhaler daily/prn, nebulizer prn Sinus congestion Chronic dyspnea On anticoagulant therapy eliquis bid Paroxysmal atrial fibrillation follows with Dr. 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 Ken)- under surveillance/stable/no indication for surgical intervention Psoriatic arthropathy GERD (gastroesophageal reflux disease) CONTROLLED WITH MEDS Osteoarthritis, knee Surgical History History of laparoscopy (~06/2020) exploratory after colectomy @ [facility] [place] History of colectomy (~06/2020) @ [facility] [place] History of total left hip arthroplasty 12/2019 History of total hip arthroplasty RIGHT 05/27/19. Complicated by post-op seroma requiring multiple needle aspirations.LEFT HIP 01/10/20 History of dilatation and curettage History of tooth extraction History of tonsillectomy and adenoidectomy History of cardiac cath X2; 10+ YEARS AGO (NO STENTS) History of arthroscopy RT/LEFT KNEE Status post total replacement of left shoulder hx of History of colonoscopy last 03/2020 History of esophagogastroduodenoscopy (EGD) History of total abdominal hysterectomy and bilateral salpingo-oophorectomy History of arthroscopy of right shoulder History of total knee arthroplasty RIGHT History of foot surgery RT FOOT FUSION History of cholecystectomy History of cataract extraction RT/LEFT History of lumbar fusion H/O thyroidectomy Family History Mother Arthritis Hypertension Father Lung cancer Hypertension Family/Other Family hx of colon cancer 1st cousin Unknown Allergies Breast cancer Hypertension Brother Cancer Heart disease Aunt Colorectal cancer Other No family history of adverse response to anesthesia No family history of bleeding disorder Denies family history of Ovarian cancer Prostate cancer Diabetes Hearing loss Myocardial infarction Stroke Asthma Social History Smoking Status: Former smoker Tobacco Type: Cigarettes Age Quit Using Tobacco: 26; Second Hand Exposure: No; Do You Dip or Chew Tobacco: No; Hx Alcohol Use: No Hx Substance Use: No Preferred Language: Italian Communication Ability: Effective Communication Ability Comment: DEAF RIGHT EAR Visual Impairment: Limited Hearing Ability: Hard of Hearing 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 Beliefs That Will Affect Care: None marital status: / Current Living Situation: Family Current Living Situation Comment: [place] current occupational status: retired current occupation: Retired How many Children do You have: 0 Other Information That Helps Us Care for You: No Feels Safe at Home: Yes Safety Concerns: Feels Safe At This Time Childhood Exposure to Second-Hand Smoke: Yes caffeine: Yes Dental Care, Regularly: Yes Physical Activity Frequency: Does not Exercise Physical Activity Frequency Comment: Hip problems Seatbelt Use: always Sunscreen Use: No Assistive Devices: Cane, Nebulizer and Walker Review of Systems Review of Systems: All systems reviewed & are unremarkable except as noted in HPI & below Physical Exam Physical Exam: Constitutional: Patient appears to be of their stated age. Patient is in no apparent distress. Patient is well-developed. Eyes: Pupils are equal round and reactive to light. Conjunctivae are normal. Anicteric sclera. Ears nose, mouth and throat: Deferred. Neck: Trachea is midline. Visual inspection is normal. Respiratory: Bilateral crackles with diminishment at the lung bases. Cardiovascular: Regular rate and rhythm. No murmurs. No edema. Gastrointestinal: Normal bowel sounds, soft, nontender and nondistended. No hepatosplenomegaly noted. Musculoskeletal: No cyanosis. Patient is able to move all extremities. Strength is 5 out of 5 in the upper and lower extremities. Skin: No rashes, warm dry and intact. Neurologic: No obvious focal neurological deficits seen. Psychiatric: Alert and oriented x3 with a euthymic affect. Results & Data Results & Data Vital Signs (Past 12 Hours) Vital Signs Temp Pulse Pulse Resp BP Pulse Ox O2 Del Method 04/02/23 15:21 37.0 C 61 16 108/67 92 Nasal Cannula 04/02/23 11:20 36.6 C 66 16 95/59 L 94 Nasal Cannula 04/02/23 11:01 60 04/02/23 11:01 Nasal Cannula 04/02/23 08:57 64 103/65 04/02/23 07:51 36.7 C 60 16 96/54 L 94 Nasal Cannula 04/02/23 07:26 66 18 96 Nasal Cannula O2 Flow Rate 04/02/23 15:21 2 04/02/23 11:20 4 04/02/23 11:01 04/02/23 11:01 2 04/02/23 08:57 04/02/23 07:51 4 04/02/23 07:26 4 PG Care Time/CCT Total # of Minutes Spent Total Time Spent with Patient: Total time spent is greater than 50% in coordination of care (as documented) at patient's floor/unit and/or counseling patient: Coding Level of Care Code 99248 INT INP/OBS CARE 3/75MIN Diagnoses Heart failure with reduced ejection fraction I50.20 Acute respiratory failure with hypoxia J96.01 CKD (chronic kidney disease) stage 4, GFR 15-29 ml/min N18.4 Pleural effusion J90
[2023-04-02] MEDS: BUMETANIDE 4 MG in SYRINGE 0 ML IV SCH (17:30)
--- NOTE | 2023-04-02 19:27 | Hospitalist Progress Note ---
Date of Service April 02, 2023 Assessment & Plan (1) Hypoxia: Plan: Most likely secondary to CHF exacerbation in the setting of CKD progression Feeling better, however as the patient is hypoxic, discussed with rug receiving clerk with Bumex IV intravenously twice daily, patient had bilateral pleural effusion, consult with pulmonary for possible thoracentesis -BMP tomorrow (2) CHF exacerbation: Plan: The plan is as mentioned above (3) Asthma: Plan: No wheezing on exam continue current treatment (4) Chest tightness: Plan: -Patient has been experiencing intermittent chest tightness/pressure over the past week -ECG is without acute ST segment or T-wave changes, high sen trop is negative, low suspicion for ACS at this time -Low suspicion for PE, see hypoxia -Will give a DuoNeb treatment now and obtain mag level, if stable will give 2gm IV mag sulfate as well -If she has improvement with DuoNeb will scheduled additional treatments -Continue to treat BL pleural effusions with bumex Improved clinically. No tightness today. 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 Acute on chronic kidney disease due to cardiorenal syndrome -Monitor daily renal function, daily weights, avoid nephrotoxic agents (7) Psoriasis: Plan: -Patient has been taking 5 mg Prednisone HS for years for her Psoriasis with arthritis (8) Hypothyroidism: Plan: -Continue levothyroxine (9) Paroxysmal atrial fibrillation: Plan: -Stable; S/P ICD placement -Continue Carvedilol, amiodarone, and Eliquis (10) Acute respiratory failure with hypoxia: Admission and Anticipated Discharge Date Admission Date: March 27, 2023 Subjective Feels significantly better Review of Systems Constitutional: no fever Eyes: no problem reported Ear, Nose, Mouth, Throat: no problem reported Respiratory: no cough and no dyspnea Cardiovascular: no chest pain Gastrointestinal: no abdominal pain, no nausea, no vomiting and no diarrhea/loose stools Genitourinary: no dysuria Integumentary: no rash Physical Exam Physical Exam: Constitutional: Patient appears to be of their stated age. Patient is in no apparent distress. Patient is well-developed. Eyes: Pupils are equal round and reactive to light. Conjunctivae are normal. Anicteric sclera. Ears nose, mouth and throat: Deferred. Neck: Trachea is midline. Visual inspection is normal. Respiratory: Bilateral crackles with diminishment at the lung bases. Cardiovascular: Regular rate and rhythm. No murmurs. No edema. Gastrointestinal: Normal bowel sounds, soft, nontender and nondistended. No hepatosplenomegaly noted. Musculoskeletal: No cyanosis. Patient is able to move all extremities. Strength is 5 out of 5 in the upper and lower extremities. Skin: No rashes, warm dry and intact. Neurologic: No obvious focal neurological deficits seen. Psychiatric: Alert and oriented x3 with a euthymic affect. Constitutional: not in distress Eyes: PERRL, conjunctivae normal, anicteric sclerae ENMT: external ear and nose normal, oropharynx normal Neck: trachea midline, no thyromegaly Respiratory: normal respiratory effort (diminished breath sounds at the bases bilaterally) Cardiovascular: Rate/Rhythm: regular rate and regular rhythm Extremities: no edema Gastrointestinal (Abdomen): normal bowel sounds, soft, nontender, no hepatosplenomegaly Neurologic: Speech / Cognition: normal speech and normal cognition Results & Data Results & Data Vital Signs (Past 12 Hours) Vital Signs Temp Pulse Pulse Resp BP Pulse Ox O2 Del Method 04/02/23 17:04 60 04/02/23 15:21 37.0 C 61 16 108/67 92 Nasal Cannula 04/02/23 11:20 36.6 C 66 16 95/59 L 94 Nasal Cannula 04/02/23 11:01 60 04/02/23 11:01 Nasal Cannula 04/02/23 08:57 64 103/65 04/02/23 07:51 36.7 C 60 16 96/54 L 94 Nasal Cannula 04/02/23 07:26 66 18 96 Nasal Cannula O2 Flow Rate 04/02/23 17:04 04/02/23 15:21 2 04/02/23 11:20 4 04/02/23 11:01 04/02/23 11:01 2 04/02/23 08:57 04/02/23 07:51 4 04/02/23 07:26 4 PG Care Time/CCT Total # of Minutes Spent Total Time Spent with Patient: Total time spent is greater than 50% in coordination of care (as documented) at patient's floor/unit and/or counseling patient: Coding Level of Care Code 75871 SUB INP/OBS CARE 350MIN Diagnoses Hypoxia R09.02 CHF exacerbation I50.9 Asthma J45.909 Chest tightness R07.89 Type 2 diabetes mellitus with stage 4 chronic kidney disease, without long-term current use of insulin E11.22; N18.4 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 nursing home insulin use: without nursing home use 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 complication status: with kidney complications 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 complication detail: with chronic kidney disease Chronic kidney disease stage: stage 4 (severe) CKD (chronic kidney disease) N18.9 Psoriasis L40.9 Hypothyroidism E03.9 Paroxysmal atrial fibrillation I48.0 Acute respiratory failure with hypoxia J96.01 (5) Type II diabetes mellitus 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 nursing home insulin use: without nursing home use Diabetes me llitus complication status: with kidney complications 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 complication detail: with chronic kidney disease Chronic kidney disease stage: stage 4 (severe) Qualified Code(s): E11.22 - Type 2 diabetes mellitus with diabetic chronic kidney disease; N18.4 - Chronic kidney disease, stage 4 (severe)
[2023-04-02] MEDS: ATORVASTATIN 40 MG TAB PO SCH (20:50)
[2023-04-02] MEDS: NIFEdipine EXTENDED REL 30 MG TABCR PO SCH (20:56)
[2023-04-03] MEDS: LEVOTHYROXINE SODIUM 137 MCG TABLET PO SCH (06:27)
[2023-04-03] MEDS: BUDESONIDE 0.5 MG/2 ML VIAL (PULMICORT) NEB SCH ×2 (07:05→19:51)
[2023-04-03] MEDS: FORMOTEROL 20 MCG/2 ML VIAL NEB SCH ×2 (07:05→19:51)
[2023-04-03 07:18] LABS: Hematocrit (blood only) 28.5 % (37.0-47.0); Hemoglobin 9.2 g/dl (12.0-16.0); Mean Corpuscular Hemoglobin 26.1 pg (25.0-34.0); Mean Corpuscular Hgb Conc 32.3 g/dL (32.0-36.0); Mean Corpuscular Volume 80.7 fL (80.0-100.0); Mean Platelet Volume 10.5 fL (9.4-12.4); Platelet Count 283 K/uL (130-400); RDW Coefficient of Variation 20.9 % (11.5-14.5); RDW Standard Deviation 58.1 fL (36.4-46.3); Red Blood Count 3.53 M/uL (4.20-5.40); White Blood Count 5.54 K/ul (4.8-10.8)
[2023-04-03 07:29] LABS: BUN Creatinine Ratio 14.1 (10-20); Creatinine Clr Calc Pharmacy 21.8 ml/min; Est GFR (Non-African American) 15.5 ml/min; Potassium 2.9 mmol/L (3.5-5.1)
[2023-04-03] MEDS: POTASSIUM CHLORIDE CRTAB 20 MEQ TABCR PO SCH ×6 (08:47→21:09)
--- NOTE | 2023-04-03 08:50 | Nephrology Progress Note ---
Date of Service April 03, 2023 Assessment & Plan (1) Acute kidney injury: Plan: * JULIO due to CRS. LVEF 35-40% (01/24/23 echo) * Urine sediment is acellular. UPCR 0.2 * UO 2500 cc last shift * Continue Bumex 4 mg IV daily * Monitor PRP, UO, daily weight (2) CKD (chronic kidney disease) stage 4, GFR 15-29 ml/min: Plan: * Baseline Cr 2.0 w/ EGFR 25 cc/min. Renal impairment is on the basis of microvascular disease and hypertensive nephrosclerosis (3) CHF (congestive heart failure): Plan: * Reviewed 1500 mg NaCl restricted diet w/ patient on admission. She receives meals from meals on wheels and notes that they are low Na * UO 2500 cc last shift * Continue Bumex 4 mg IV daily * Additional 20 mEq KCl po BID x 2 doses provided today due to hypokalemia * Monitor I&O, daily weight * Follow up chest US scheduled for Thursday to determine whether thoracentesis will be needed (4) Anemia, unspecified: Plan: * Hgb 9.2 today * Iron sat 11% w/ ferritin 58 * Completed 1200 mg IV Venofer 04/02/23 * Epogen 10,000 units SQ x1 administered 04/02/23 Admission and Anticipated Discharge Date Admission Date: March 27, 2023 Subjective Ms. Vergara was evaluated in her hospital room this morning. Her breathing is subjectively improved. O2 has been reduced to 1 L/min NC. She denies angina. Ms. Vergara reports that she will have chest US Thursday to determine whether thoracentesis is needed Review of Systems Constitutional: no fever Eyes: no problem reported Ear, Nose, Mouth, Throat: no problem reported Respiratory: no cough and no dyspnea Cardiovascular: no chest pain Gastrointestinal: no abdominal pain, no nausea, no vomiting and no diarrh ea/loose stools Genitourinary: no dysuria Integumentary: no rash Physical Exam Constitutional: not in distress Eyes: PERRL, conjunctivae normal, anicteric sclerae ENMT: external ear and nose normal, oropharynx normal Neck: trachea midline, no thyromegaly Respiratory: normal respiratory effort (diminished breath sounds at the bases bilaterally) Cardiovascular: Rate/Rhythm: regular rate and regular rhythm Extremities: no edema Gastrointestinal (Abdomen): normal bowel sounds, soft, nontender, no hepatosplenomegaly Neurologic: Speech / Cognition: normal speech and normal cognition Results & Data Vital Signs (Past 12 Hours) Vital Signs Temp Pulse Pulse Resp BP Pulse Ox O2 Del Method 04/03/23 08:00 37.0 C 69 16 132/71 93 Nasal Cannula 04/03/23 07:53 Nasal Cannula 04/03/23 07:06 61 18 91 Nasal Cannula 04/03/23 03:35 37.1 C 64 18 127/68 92 Room Air 04/02/23 23:09 65 04/02/23 22:30 36.7 C 65 18 122/63 91 Nasal Cannula 04/02/23 21:51 Nasal Cannula O2 Flow Rate 04/03/23 08:00 2 04/03/23 07:53 2 04/03/23 07:06 2 04/03/23 03:35 04/02/23 23:09 04/02/23 22:30 2 04/02/23 21:51 2 Laboratory Results Laboratory Tests 04/03/23 06:51 WBC 5.54 Hgb 9.2 L Hct 28.5 L Plt Count 283 Sodium 140 Potassium 2.9 L Chloride 97 L Carbon Dioxide 34 H BUN 40 H Creatinine 2.83 H Glucose 82 PG Care Time/CCT Total # of Minutes Spent Total Time Spent with Patient: Total time spent is greater than 50% in coordination of care (as documented) at patient's floor/unit and/or counseling patient: Coding Level of Care Code 13298 SUB INP/OBS CARE 3/50MIN Diagnoses Acute kidney injury N17.9 CKD (chronic kidney disease) stage 4, GFR 15-29 ml/min N18.4 CHF (congestive heart failure) I50.9 Anemia, unspecified D64.9
[2023-04-03] MEDS: INSULIN ASPART PER UNIT CHARGE SC SCH ×4 (09:12→20:24)
[2023-04-03] MEDS: carvediloL 25 MG TAB PO SCH ×2 (09:19→17:06)
[2023-04-03] MEDS: DULoxetine HCL 60 MG CAP PO SCH (09:20)
[2023-04-03] MEDS: AMIODARONE 200 MG TAB PO SCH (09:20)
[2023-04-03] MEDS: MONTELUKAST SODIUM 10 MG TABLET PO SCH (09:20)
[2023-04-03] MEDS: BUMETANIDE 4 MG in SYRINGE 0 ML IV SCH (09:20)
[2023-04-03] MEDS: MAGNESIUM OXIDE 400 MG TAB PO SCH ×2 (09:21→21:09)
[2023-04-03] MEDS: CALCITRIOL 0.25 MCG CAPSULE PO SCH (09:21)
[2023-04-03] MEDS: predniSONE 5 MG TAB PO SCH (09:21)
[2023-04-03] MEDS: ACETAMINOPHEN 500 MG TAB PO SCH ×2 (09:21→21:12)
[2023-04-03] MEDS: PANTOprazole 40 MG TAB PO SCH (09:21)
[2023-04-03] MEDS ORDERED: STAT IV Infusion **Titration per Protocol STA (09:53)
--- NOTE | 2023-04-03 09:59 | Pulmonology Progress Note ---
Date of Service April 03, 2023 Assessment & Plan (1) Heart failure with reduced ejection fraction: (2) Acute respiratory failure with hypoxia: (3) CKD (chronic kidney disease) stage 4, GFR 15-29 ml/min: (4) Pleural effusion: Plan 77-year-old female with a history of asthma, ischemic cardiomyopathy, atrial fibrillation and ventricular tachycardia who is currently hospitalized due to an acute exacerbation of heart failure with a reduced ejection fraction. Pulmonary is consulted due to bilateral pleural effusions. I have performed a bedside ultrasound which revealed bilateral pleural effusions, right greater than left. They appear free-flowing and are likely secondary to acute CHF. She continues to have some chest tightness and oxygen requirements. She is at elevated risk due to bleeding from a pleural procedure due to her elevated BUN and anticoagulation status with Eliquis thus Eliquis is on hold. We will reevaluate for thoracentesis tomorrow. Discussed with cardiology who plans on starting her on dobutamine for advanced heart failure. They are okay with holding her Eliquis. Greatly appreciate Dr. Martins's input. Continue inhaler regimen for asthma. No signs of active asthma exacerbation at this time. Wean oxygen to maintain saturations above 89% Thank you for the consult. We will continue to follow with you. Admission and Anticipated Discharge Date Admission Date: March 27, 2023 Subjective Patient seen and examined. Symptoms unchanged from yesterday. She is denying any shortness of breath at rest, but has shortness of breath with exertion. She had some cough yesterday evening and was able to cough up some small amounts of phlegm. Denies any chest pain, fevers or chills. Tolerating her diet well. I discussed her case with Dr. Martins of any cardiology who relates that he is going to trial her on dobutamine. Review of Systems Review of Systems: All systems reviewed & are unremarkable except as noted in HPI & below Physical Exam Physical Exam: Constitutional: Patient appears to be of their stated age. Patient is in no apparent distress. Patient is well-developed. Eyes: Pupils are equal round and reactive to light. Conjunctivae are normal. Anicteric sclera. Ears nose, mouth and throat: Deferred. Neck: Trachea is midline. Visual inspection is normal. Respiratory: Bilateral crackles with diminishment at the lung bases. Cardiovascular: Regular rate and rhythm. No murmurs. No edema. Gastrointestinal: Normal bowel sounds, soft, nontender and nondistended. No hepatosplenomegaly noted. Musculoskeletal: No cyanosis. Patient is able to move all extremities. Strength is 5 out of 5 in the upper and lower extremities. Skin: No rashes, warm dry and intact. Neurologic: No obvious focal neurological deficits seen. Psychiatric: Alert and oriented x3 with a euthymic affect. Results & Data Results & Data Vital Signs (Past 12 Hours) Vital Signs Temp Pulse Pulse Resp BP Pulse Ox O2 Del Method 04/03/23 08:00 37.0 C 69 16 132/71 93 Nasal Cannula 04/03/23 07:53 Nasal Cannula 04/03/23 07:06 61 18 91 Nasal Cannula 04/03/23 03:35 37.1 C 64 18 127/68 92 Room Air 04/02/23 23:09 65 04/02/23 22:30 36.7 C 65 18 122/63 91 Nasal Cannula O2 Flow Rate 04/03/23 08:00 2 04/03/23 07:53 2 04/03/23 07:06 2 04/03/23 03:35 04/02/23 23:09 04/02/23 22:30 2 PG Care Time/CCT Total # of Minutes Spent Total Time Spent with Patient: Total time spent is greater than 50% in coordination of care (as documented) at patient's floor/unit and/or counseling patient: Coding Level of Care Code 31767 SUB INP/OBS CARE 2/35MIN Diagnoses Heart failure with reduced ejection fraction I50.20 Acute respiratory failure with hypoxia J96.01 CKD (chronic kidney disease) stage 4, GFR 15-29 ml/min N18.4 Pleural effusion J90
--- NOTE | 2023-04-03 10:01 | Cardiology Consultation ---
Date of Consultation April 03, 2023 Assessment & Plan (1) Heart failure with reduced ejection fraction: (2) Nonischemic cardiomyopathy: (3) Pleural effusion: (4) Cardiorenal syndrome: Mrs. Vergara is a 77-year-old female with a history of HFrEF, Paroxysmal Atrial Fibrillation, Tachy-Faisal Syndrome, Non-Ischemic Cardiomyopathy (LVEF 35% to 40% on Echo 01/25/23) s/p Medtronic Claria MRI Quad BOILING TUB OPERATOR-D Bi-V AICD Implantation 01/29/23, NSTEMI with Minimal CAD, Paroxysmal Ventricular Tachycardia, Stage IV CKD, Anemia, Type 2 Diabetes Mellitus, Asthma, Dyslipidemia, Hypothyroidism, and Osteoarthritis who presented to [facility] ER on 03/27/23 with complaints of progressive SOB, wheezing, and chest heaviness. The patient has multiple admissions over the past 3 months for recurrent CHF exacerbations. In the ER she was noted to be hypoxic with SpO2 in the low 90's on room air but was otherwise hemodynamically stable. Labs were significant for a Serum Creatinine of 3.09 mg/dL (still recovering from JULIO from her prior admission), and her high sensitivity Troponin I was unremarkable at 8.2 pg/mL and her BNP was elevated at 217 pg/mL. CBC with diff showed a normocytic hypochromic anemia with a Hgb of 9.2 g/dL. EKG 03/27/23 showed atrial biventricular sequentially paced rhythm at 68 bpm. CXR 03/27/23 showed: 1. Increase in moderate bilateral pleural effusions with associated bibasilar opacities. 2. Cardiomegaly with mild interstitial pulmonary edema. In the ER prior to admission the patient received IV Bumex 2mg x 1 dose. Leading up to this hospitalization the patient met with Dr. Stevenson on 03/23/23 and he felt that the patient was still recovering from an JULIO during her last admission at [facility] from 02/10/23 to 02/12/23. He instructed her to increase her oral Bumex from 1mg daily to 2mg daily x 2 days for increased peripheral edema. At the present time she still has SOB, COMBS, and tightness in her chest which she feels is secondary to the increased work of breathing. She has persistent pulmonary edema and bilateral pleural effusions despite ongoing treatment of her underlying hypervolemia/acute on chronic HFrEF. So far she has had a negative fluid balance 3544 mL and her body weight is down 11.5 pounds since being admitted. Additionally, she appears to have cardiorenal syndrome, serum creatinine is gradually trending down. Management as per Dr. Stevenson. Recommend the followin. Management of diuretics and ACEI as per Nephrology. 2. Dobutamine drip at 3 mcg/kg/minute. 3. Continue Coreg 25 mg b.i.d.. 4. Low sodium diet. 5. Monitor daily body weights and I&O's. (5) Paroxysmal atrial fibrillation: (6) Chronic anticoagulation: Patient is currently in an atrial-biventricular sequentially paced rhythm and has not had any evidence of recurrent atrial fibrillation. 1. Continue Amiodarone 200 mg daily. 2. Agree with holding Eliquis x 24 to 48 hours leading up to her thoracentesis. 3. Continue residential monitor. (7) Hypertension: Blood pressures appear to be controlled and are occasionally low. -- Continue Coreg 25 mg b.i.d.. -- Continue Nifedipine extended release tablets 90 mg daily. -- Management of ACEI and diuretics as per Nephrology. (8) Hyperlipidemia associated with type 2 diabetes mellitus: -- Continue Atorvastatin 40 mg daily. (9) Hypokalemia: -- Patient is receiving KCl supplementation. -- Monitor daily labs. Thank you for asking us to see this patient consultation. If we can be of any further assistance to you, please contact [facility] Cardiology. History of Present Illness Reason for Consultation: -- Acute on Chronic HFrEF. -- Holding Eliquis for Thoracentesis. Requesting Physician: Willie Martinez MD Attending Physician: Ky Martins MD History of Present Illness Mrs. Vergara is a 77-year-old female with a history of HFrEF, Paroxysmal Atrial Fibrillation, Tachy-Faisal Syndrome, Non-Ischemic Cardiomyopathy (LVEF 35% to 40% on Echo 01/25/23) s/p Medtronic Claria MRI Quad BOILING TUB OPERATOR-D Bi-V AICD Implantation 12/14, NSTEMI with Minimal CAD, Paroxysmal Ventricular Tachycardia, Stage IV CKD, Anemia, Type 2 Diabetes Mellitus, Asthma, Dyslipidemia, Hypothyroidism, and Osteoarthritis who presented to [facility] ER on 03/27/23 with complaints of progressive SOB, wheezing, and chest heaviness. The patient has multiple admissions over the past 3 months for recurrent CHF exacerbations. In the ER she was noted to be hypoxic with SpO2 in the low 90's on room air but was otherwise hemodynamically stable. Labs were significant for a Serum Creatinine of 3.09 mg/dL (still recovering from JULIO from her prior admission), and her high sensitivity Troponin I was unremarkable at 8.2 pg/mL and her BNP was elevated at 217 pg/mL. CBC with diff showed a normocytic hypochromic anemia with a Hgb of 9.2 g/dL. EKG 03/27/23 showed atrial biventricular sequentially paced rhythm at 68 bpm. CXR 03/27/23 showed: 1. Increase in moderate bilateral pleural effusions with associated bibasilar opacities. 2. Cardiomegaly with mild interstitial pulmonary edema. In the ER prior to admission the patient received IV Bumex 2mg x 1 dose. Leading up to this hospitalization the patient met with Dr. Stevenson on 03/23/23 and he felt that the patient was still recovering from an JULIO during her last admission at [facility] from 02/10/23 to 02/12/23. He instructed her to increase her oral Bumex from 1mg daily to 2mg daily x 2 days for increased peripheral edema. At the present time she still has SOB, COMBS, and tightness in her chest which she feels is secondary to the increased work of breathing. She has persistent pulmonary edema and bilateral pleural effusions despite ongoing treatment of her underlying hypervolemia/acute on chronic HFrEF. Additionally, she appears to have cardiorenal syndrome. RECENT HISTORICAL BACKGROUND: She was admitted on 01/20/2023 with atrial fibrillation and rapid ventricular response. She has a history of paroxysmal atrial fibrillation and had been largely asymptomatic. She typically knows about the episodes once notified by her smart watch. She estimates that most episodes last approximately 10 minutes before spontaneously resolving. She recalls being diagnosed just before hip surgery in 2019. At that time, she was given low-dose beta-ankit and converted to sinus rhythm. In follow-up with outpatient monitoring, she had episodes of sinus bradycardia and a 3-second pause on low-dose Metoprolol. Therefore, she was not maintained on any rate controlling medication. On 01/19/2023, in the evening, her watch alerted for elevated heart rate of approximately 138 bpm. She called the cardiology office and presented for an EKG on 01/20/2023. She was instructed to go to [facility] ER for evaluation if she did not spontaneously convert later that day. Because her heart rate remained elevated, she came to the ER. She denied palpitations, chest pain, shortness of breath at rest, syncope, near syncope, edema, or bleeding. She did admit to occasional dyspnea on exertion which was chronic and stable and she has always attributed this to her asthma. She denied any change in her dyspnea despite being in atrial fibrillation with rapid heart rate over the preceding 1 to 2 days. In the ER she received 20 mg of IV Diltiazem. She was noted to have a brief conversion to sinus rhythm at approximately 6:17 a.m on 01/21/23 that lasted for approximately 7 minutes. A-fib converted atrial flutter prior to the sinus episode. She otherwise reverted to atrial fibrillation with RVR following her sinus episode. While in sinus, she had frequent premature supraventricular ectopic complexes. She has not missed any doses of her anticoagulation therapy. Patient subsequently underwent placement of a dual-chamber pacemaker on 01/23/2023 because of her underlying tachy-faisal syndrome and to better treat her atrial fibrillation. Her initial high sensitivity troponin I level was 11 pg/mL, and follow-up value on 01/20/2023 was elevated at 25.2 pg/mL. Her high sensitivity troponin I level subsequently increased to 526.9 pg/mL on 01/23/23, and peaked on 01/24/23 at 3462.3 pg/mL. Additionally an echocardiogram showed reduced LV systolic function with an LVEF of 30% to 35%. Patient was diagnosed with an NSTEMI and underwent Cardiac Catheterization on 01/24/23 which showed minimal CAD (luminal irregularities only of the LAD and LCx, non-dominant RCA was free of disease). Patient had ongoing rhythm issues throughout her hospitalization and subsequently developed periods of sustained ventricular tachycardia. She was treated with Amiodarone. She was a code blue on 01/24/23 after an unresponsive episode, heart alert activated. Amiodarone discontinued and ultimately she underwent explantation of her dual-chamber pacemaker on 01/29/2023 and underwent implantation of a Medtronic Claria MRI Quad BOILING TUB OPERATOR-D AICD. Patient is currently maintained on Amiodarone 400 mg b.i.d. Discharged on 01/31/23. She was readmitted 02/10/23 through 02/12/23 for acute on chronic HFrEF. She presented with SOB and left arm pain. She was hypoxic with evidence of volume overload. She was discharged on Bumex 2 mg daily. Spironolactone was discontinued. Also initiated on Lisinopril. She was initially evaluated on 02/19/23 with the heart failure program. She was euvolemic with improved symptoms. Weight trending down. Slightly azotemic on labs. Bumex decreased to 1 mg daily. Dry weight 225 lb. Recent cardiac studies/procedures: 1. ECHOCARDIOGRAM 01/25/23: Normal LV size and moderately reduced function. EF 35%-40%. Global hypokinesis. Moderate concentric LVH. Moderate biatrial dilation. 2. 01/20/23: Pacemaker insertion 3. 01/20/23: Cardiac Catheterization: Findings left heart study documented a left-ventricular end-diastolic pressure of 16 mmHg. There was no gradient on pullback across the aortic valve. Coronary angiography the right coronary artery was nondominant and free of disease. The left main was normal bifurcating into type III LAD and circumflex system. The LAD and circumflex had luminal irr egularities only there was no evidence of obstructive coronary artery disease. 4. 01/29/23: Upgrade to a [employer] Quad BOILING TUB OPERATOR-D Bi-V AICD. Allergies Allergy/AdvReac Type Severity Reaction Status Date / Time codeine Allergy Severe Anaphylaxis Verified 03/27/23 15:24 furosemide Allergy Severe SEVERE Verified 03/27/23 15:24 RASH, PT REPORTS A CROSS ALLERGY WITH SULFA celecoxib [From Celebrex] Allergy Intermediate RASH Verified 03/27/23 15:24 cephalexin [From Keflex] Allergy Intermediate Rash Verified 03/27/23 15:24 hydrocodone Allergy Intermediate Rash Verified 03/27/23 15:24 Iodinated Contrast Media Allergy Intermediate RASH Verified 03/27/23 15:24 nickel Allergy Intermediate Rash Verified 03/27/23 15:24 oxycodone Allergy Intermediate Rash Verified 03/27/23 15:24 Sulfa (Sulfonamide Allergy Intermediate RASH TO Verified 03/27/23 15:24 Antibiotics) SULFA DRUGS tetracycline Allergy Intermediate RASH Verified 03/27/23 15:24 capsaicin AdvReac Intermediate CREATINE Verified 03/27/23 15:24 ELEVATION diclofenac AdvReac Intermediate CREATINE Verified 03/27/23 15:24 ELEVATION propylene glycol AdvReac Intermediate CREATINE Verified 03/27/23 15:24 ELEVATION "PREP WITH BLUE DYE" Allergy Intermediate Rash Uncoded 03/27/23 15:24 Home Medications Medication Instructions Recorded Confirmed Type magnesium oxide 400 mg PO BID 07/26/18 03/27/23 History omega 6-emd-nuu-fish oil 1,000 mg 1,000 mg PO BID 07/26/18 03/27/23 History (120 mg-180 mg) capsule (Fish Oil) cetirizine 10 mg tablet (Zyrtec) 10 mg PO HS 08/22/19 03/27/23 History betamethasone valerate 0.1 % 1 applic topical UD PRN PSORIASIS 11/30/19 03/27/23 History topical cream blood-glucose meter (Accu-Chek 02/12/21 03/26/23 History Garima Plus Meter) prednisone 5 mg tablet 5 mg PO HS #90 tabs 01/07/22 03/27/23 Rx nitroglycerin 0.4 mg/hr 1 patch transdermal QAM #90 ea 03/20/22 03/27/23 Rx transdermal 24 hour patch (Nitro-Dur) nifedipine 90 mg tablet,extended 90 mg PO HS #90 tabs 04/14/22 03/27/23 Rx release duloxetine 60 mg capsule,delayed 60 mg PO QAM #90 caps 05/12/22 03/27/23 Rx release (Cymbalta) cholestyramine (with sugar) 4 gram 4 ea PO DIRECTED PRN Diarrhea 08/26/22 03/27/23 History oral powder levothyroxine 137 mcg capsule 137 mcg PO DAILY #90 caps 08/27/22 03/27/23 Rx albuterol sulfate 90 mcg/actuation 2 puff inhalation Q6H PRN 09/30/22 03/27/23 Rx aerosol inhaler shortness of breath or wheezing #8.5 grams budesonide-formoterol HFA 80 2 puff inhalation BID #3 Inhalers 09/30/22 03/27/23 Rx mcg-4.5 mcg/actuation aerosol inhaler (Symbicort) azelastine 137 mcg (0.1 %) nasal 2 spray intranasal DAILY PRN 11/17/22 03/27/23 Rx spray aerosol ALLERGIES #30 mL blood sugar diagnostic (Accu-Chek #100 ea 12/19/22 03/26/23 Rx Garima Plus test strips) potassium chloride 20 mEq 20 meq PO QAM #90 tabs 01/09/23 03/27/23 Rx tablet,extended release(part/cryst) (Klor-Con M) apixaban 5 mg tablet (Eliquis) 5 mg PO BID #180 tabs 01/15/23 03/27/23 Rx montelukast 10 mg tablet 10 mg PO DAILY #90 tabs 01/19/23 03/27/23 Rx (Singulair) acetaminophen 650 mg 1,300 mg PO BID 01/20/23 03/27/23 History tablet,extended release (Tylenol Arthritis Pain) carvedilol 25 mg tablet 25 mg PO BID #60 tabs 01/31/23 03/27/23 Rx lansoprazole 30 mg capsule,delayed 30 mg PO DAILY #90 caps 02/04/23 03/27/23 Rx release atorvastatin 40 mg tablet 40 mg PO HS 02/10/23 03/27/23 History lisinopril 10 mg tablet 10 mg PO QAM #30 tabs 02/12/23 03/27/23 Rx bumetanide 2 mg tablet 1 mg (1/2 x 2 mg) PO DAILY #30 tabs 02/17/23 03/27/23 Rx Hospital Bed Home[facility] (Hospital [facility]1 ea 03/03/23 03/26/23 Rx Bed) dulaglutide 1.5 mg/0.5 mL 1.5 mg (0.5 mL) subcut ONCE #6 mL 03/03/23 03/27/23 Rx subcutaneous pen injector (Trulicity) amiodarone 200 mg tablet 200 mg PO DAILY #30 tabs 03/06/23 03/27/23 Rx levalbuterol HCl 0.63 mg/3 mL 0.63 mg (3 mL) inhalation Q4H PRN 03/16/2308/14 Rx solution for nebulization Cough #90 mL doxycycline monohydrate 100 mg 100 mg PO BID 7 days #14 caps 03/20/23 03/27/23 Rx capsule calcitriol 0.5 mcg capsule 0.25 mcg PO DAILY 03/23/23 03/27/23 History Patient History Medical History CKD (chronic kidney disease) stage 4, GFR 15-29 ml/min baseline creatinine 2.0-2.2 range; nephrology (Dr. Stevenson) monitoring Pulmonary edema Cardiomyopathy Non-ST elevation (NSTEMI) myocardial infarction Ventricular tachycardia Tachy-faisal syndrome Elevated troponin Atrial fibrillation with RVR Sialoadenitis, unspecified Allergic rhinitis SI joint arthritis Abnormal PFT Mild persistent asthma Active asthma inhaler daily/prn, nebulizer prn Sinus congestion Chronic dyspnea On anticoagulant therapy eliquis bid Paroxysmal atrial fibrillation follows with Dr. 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 Ken)- under surveillance/stable/no indication for surgical intervention Psoriatic arthropathy GERD (gastroesophageal reflux disease) CONTROLLED WITH MEDS Osteoarthritis, knee Surgical History History of laparoscopy (~06/2020) exploratory after colectomy @ [facility] History of colectomy (~06/2020) @ [facility] History of total left hip arthroplasty 12/2019 History of total hip arthroplasty RIGHT 05/27/19. Complicated by post-op seroma requiring multiple needle aspira tions.LEFT HIP 01/10/20 History of dilatation and curettage History of tooth extraction History of tonsillectomy and adenoidectomy History of cardiac cath X2; 10+ YEARS AGO (NO STENTS) History of arthroscopy RT/LEFT KNEE Status post total replacement of left shoulder hx of History of colonoscopy last 03/2020 History of esophagogastroduodenoscopy (EGD) History of total abdominal hysterectomy and bilateral salpingo-oophorectomy History of arthroscopy of right shoulder History of total knee arthroplasty RIGHT History of foot surgery RT FOOT FUSION History of cholecystectomy History of cataract extraction RT/LEFT History of lumbar fusion H/O thyroidectomy Family History Mother Arthritis Hypertension Father Lung cancer Hypertension Family/Other Family hx of colon cancer 1st cousin Unknown Allergies Breast cancer Hypertension Brother Cancer Heart disease Aunt Colorectal cancer Other No family history of adverse response to anesthesia No family history of bleeding disorder Denies family history of Ovarian cancer Prostate cancer Diabetes Hearing loss Myocardial infarction Stroke Asthma Social History Smoking Status: Former smoker Tobacco Type: Cigarettes Age Quit Using Tobacco: 26; Second Hand Exposure: No; Do You Dip or Chew Tobacco: No; Hx Alcohol Use: No Hx Substance Use: No Preferred Language: Portuguese Communication Ability: Effective Communication Ability Comment: DEAF RIGHT EAR Visual Impairment: Limited Hearing Ability: 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 Beliefs That Will Affect Care: None marital status: / Current Living Situation: Family Current Living Situation Comment: [place] current occupational status: retired current occupation: Retired How many Children do You have: 0 Other Information That Helps Us Care for You: No Feels Safe at Home: Yes Safety Concerns: Feels Safe At This Time Childhood Exposure to Second-Hand Smoke: Yes caffeine: Yes Dental Care, Regularly: Yes Physical Activity Frequency: Does not Exercise Physical Activity Frequency Comment: Hip problems Seatbelt Use: always Sunscreen Use: No Assistive Devices: Cane, Nebulizer and Walker Physical Exam Physical Exam: Blood pressure 132/71. Pulse is 66 and regular.. GENERAL: Patient is in no acute distress lying in bed with the HOB elevated. HEENT: Head is atraumatic, normocephalic. EOM's intact. Facies symmetric. No perioral cyanosis. NECK: No JVD. JVP is elevated. Carotid upstrokes are + 2 bilaterally without bruits. CHEST/LUNGS: Absent breath sounds in bilateral lower lung osman, diffuse crackles in bilateral upper lung osman. No wheezes. CVS: S1 and S2 are regular without murmurs, gallops, or rubs. PMI is nonpalpable. No lifts, heaves, or thrills. No abdominal aortic or renal bruits. AICD generator is present left subclavian fossa. ABDOMINAL EXAM: Bowel sounds are present. No masses, organomegaly, or tenderness. EXTREMITIES: No clubbing or cyanosis. Trace distal leg edema. Intact radial pulses bilaterally. NEUROLOGIC EXAM: Patient is awake, alert, and oriented. Pleasant and cooperative. Answers questions appropriately. Speech is clear. Gait pattern is not assessed. ONCOLOGY SPECIALIST: -- Atrial and biventricular sequential p acing in the 60's to low 70's. Results & Data Vital Signs (Past 12 Hours) Vital Signs Temp Pulse Pulse Resp BP Pulse Ox O2 Del Method 04/03/23 08:00 37.0 C 69 16 132/71 93 Nasal Cannula 04/03/23 07:53 Nasal Cannula 04/03/23 07:06 61 18 91 Nasal Cannula 04/03/23 03:35 37.1 C 64 18 127/68 92 Room Air 04/02/23 23:09 65 04/02/23 22:30 36.7 C 65 18 122/63 91 Nasal Cannula O2 Flow Rate 04/03/23 08:00 2 04/03/23 07:53 2 04/03/23 07:06 2 04/03/23 03:35 04/02/23 23:09 04/02/23 22:30 2 Laboratory Results Laboratory Results - last 24 hr 04/02/23 04/02/23 04/02/23 11:30 16:35 17:20 WBC RBC Hgb Hct MCV MCH MCHC RDW Std Deviation RDW Coeff of Amrita Plt Count MPV Sodium Potassium Chloride Carbon Dioxide Anion Gap BUN Creatinine Est Cr Clr Drug Dosing Est GFR ( Amer) Est GFR (Non-Af Amer) BUN/Creatinine Ratio Glucose POC Glucose 160 H 147 H 140 H Calcium 04/02/23 04/03/23 04/03/23 20:38 06:51 08:15 WBC 5.54 RBC 3.53 L Hgb 9.2 L Hct 28.5 L MCV 80.7 MCH 26.1 MCHC 32.3 RDW Std Deviation 58.1 H RDW Coeff of Amrita 20.9 H Plt Count 283 MPV 10.5 Sodium 140 Potassium 2.9 L Chloride 97 L Carbon Dioxide 34 H Anion Gap 9 BUN 40 H Creatinine 2.83 H Est Cr Clr Drug Dosing 21.8 Est GFR ( Amer) 18.0 Est GFR (Non-Af Amer) 15.5 BUN/Creatinine Ratio 14.1 Glucose 82 POC Glucose 149 H 101 H Calcium 9.0 Medications Administered Medication List Acetaminophen (Acetaminophen 500 Mg Tab) 1,000 mg PO BID CAROL Stop: 04/26/23 21:59 Last Admin: 04/03/23 09:21 Dose: 1,000 mg Documented By: Admin: 04/02/23 20:44 Dose: 1,000 mg Documented By: Admin: 04/02/23 08:49 Dose: 1,000 mg Documented By: Admin: 04/01/23 21:32 Dose: 1,000 mg Documented By: Admin: 04/01/23 09:27 Dose: 1,000 mg Documented By: Admin: 03/31/23 20:01 Dose: 1,000 mg Documented By: Admin: 03/31/23 09:24 Dose: Not Given Documented By: Admin: 03/30/23 20:22 Dose: 1,000 mg Documented By: Admin: 03/30/23 08:53 Dose: Not Given Documented By: Admin: 03/29/23 21:22 Dose: 1,000 mg Documented By: Admin: 03/29/23 08:11 Dose: 1,000 mg Documented By: Admin: 03/28/23 22:06 Dose: 1,000 mg Documented By: Admin: 03/28/23 06:00 Dose: 1,000 mg Documented By: Admin: 03/27/23 23:14 Dose: 1,000 mg Documented By: JASON Amiodarone HCl (Amiodarone 200 Mg Tab) 200 mg PO DAILY CAROL Stop: 04/27/23 08:59 Last Admin: 04/03/23 09:20 Dose: 200 mg Documented By: Admin: 04/02/23 08:56 Dose: 200 mg Documented By: Admin: 04/01/23 09:27 Dose: 200 mg Documented By: Admin: 03/31/23 09:23 Dose: 200 mg Documented By: Admin: 03/30/23 08:53 Dose: 200 mg Documented By: Admin: 03/29/23 08:10 Dose: 200 mg Documented By: Admin: 03/28/23 08:23 Dose: 200 mg Documented By: ROXANE Apixaban (Apixaban 5 Mg Tablet) 5 mg PO BID CAROL Stop: 04/26/23 21:44 Last Admin: 04/02/23 08:50 Dose: 5 mg Documented By: Admin: 04/01/23 21:31 Dose: 5 mg Documented By: Admin: 04/01/23 09:27 Dose: 5 mg Documented By: Admin: 03/31/23 20:02 Dose: 5 mg Documented By: Admin: 03/31/23 09:22 Dose: 5 mg Documented By: Admin: 03/30/23 20:22 Dose: 5 mg Documented By: Admin: 03/30/23 08:53 Dose: 5 mg Documented By: Admin: 03/29/23 21:23 Dose: 5 mg Documented By: Admin: 03/29/23 08:08 Dose: 5 mg Documented By: Admin: 03/28/23 22:07 Dose: 5 mg Documented By: Admin: 03/28/23 08:24 Dose: 5 mg Documented By: Admin: 03/27/23 23:15 Dose: 5 mg Documented By: JASON Atorvastatin Calcium (Atorvastatin 40 Mg Tab) 40 mg PO HS CAROL Stop: 04/26/23 20:59 Last Admin: 04/02/23 20:50 Dose: 40 mg Documented By: Admin: 04/01/23 21:31 Dose: 40 mg Documented By: Admin: 03/31/23 20:02 Dose: 40 mg Documented By: Admin: 03/30/23 20:22 Dose: 40 mg Documented By: Admin: 03/29/23 21:22 Dose: 40 mg Documented By: Admin: 03/28/23 22:06 Dose: 40 mg Documented By: Admin: 03/27/23 23:15 Dose: 40 mg Documented By: JASON Budesonide (Budesonide 0.5 Mg/2 Ml Vial (Pulmicort)) 0.5 mg NEB BIDR CAROL Stop: 04/26/23 21:59 Last Admin: 04/03/23 07:05 Dose: 0.5 mg Documented By: Admin: 04/02/23 19:29 Dose: 0.5 mg Documented By: Admin: 04/02/23 07:25 Dose: 0.5 mg Documented By: Admin: 04/01/23 19:44 Dose: 0.5 mg Documented By: Admin: 04/01/23 07:14 Dose: 0.5 mg Documented By: Admin: 03/31/23 19:55 Dose: 0.5 mg Documented By: Admin: 03/31/23 07:26 Dose: 0.5 mg Documented By: Admin: 03/30/23 19:36 Dose: 0.5 mg Documented By: EMBernardo Admin: 03/30/23 07:09 Dose: 0.5 mg Documented By: Admin: 03/29/23 20:05 Dose: 0.5 mg Documented By: EMBernardo Admin: 03/29/23 06:55 Dose: 0.5 mg Documented By: Admin: 03/28/23 19:35 Dose: 0.5 mg Documented By: Admin: 03/28/23 07:27 Dose: 0.5 mg Documented By: Admin: 03/27/23 23:05 Dose: 0.5 mg Documented By: MAURO Calcitriol (Calcitriol 0.25 Mcg Capsule) 0.25 mcg PO DAILY CAROL Stop: 04/27/23 08:59 Last Admin: 04/03/23 09:21 Dose: 0.25 mcg Documented By: Admin: 04/02/23 08:49 Dose: 0.25 mcg Documented By: Admin: 04/01/23 09:28 Dose: 0.25 mcg Documented By: Admin: 03/31/23 09:24 Dose: 0.25 mcg Documented By: Admin: 03/30/23 08:52 Dose: 0.25 mcg Documented By: Admin: 03/29/23 08:09 Dose: 0.25 mcg Documented By: Admin: 03/28/23 08:23 Dose: 0.25 mcg Documented By: ROXANE Carvedilol (Carvedilol 25 Mg Tab) 25 mg PO BIDM CAROL Stop: 04/26/23 20:59 Last Admin: 04/03/23 09:19 Dose: 25 mg Documented By: Admin: 04/02/23 18:06 Dose: 25 mg Documented By: Admin: 04/02/23 08:56 Dose: 25 mg Documented By: Admin: 04/01/23 18:11 Dose: 25 mg Documented By: Admin: 04/01/23 09:26 Dose: 25 mg Documented By: Admin: 03/31/23 17:09 Dose: 25 mg Documented By: Admin: 03/31/23 09:23 Dose: 25 mg Documented By: Admin: 03/30/23 17:04 Dose: 25 mg Documented By: Admin: 03/30/23 08:53 Dose: 25 mg Documented By: Admin: 03/29/23 17:06 Dose: 25 mg Documented By: Admin: 03/29/23 08:11 Dose: 25 mg Documented By: Admin: 03/28/23 17:21 Dose: 25 mg Documented By: Admin: 03/28/23 08:24 Dose: 25 mg Documented By: Admin: 03/27/23 23:14 Dose: 25 mg Documented By: JASON Cholestyramine Resin (Cholestyramine Light 4 Gm Pkt) 4 gm PO BID@1000,2200 PRN PRN Reason: diarrhea Stop: 04/30/23 21:59 Last Admin: 03/31/23 15:34 Dose: 4 gm Documented By: ROXANE Duloxetine HCl (Duloxetine Hcl 60 Mg Cap) [facility] [place]: 04/27/23 08:59 Last Admin: 04/03/23 09:20 Dose: 60 mg Documented By: Admin: 04/02/23 08:50 Dose: 60 mg Documented By: Admin: 04/01/23 09:28 Dose: 60 mg Documented By: Admin: 03/31/23 09:24 Dose: 60 mg Documented By: Admin: 03/30/23 08:52 Dose: 60 mg Documented By: Admin: 03/29/23 08:10 Dose: 60 mg Documented By: Admin: 03/28/23 08:23 Dose: 60 mg Documented By: ROXANE Formoterol Fumarate (Formoterol 20 Mcg/2 Ml Vial) 20 mcg NEB BIDR CAROL Stop: 04/26/23 21:59 Last Admin: 04/03/23 07:05 Dose: 20 mcg Documented By: Admin: 04/02/23 19:29 Dose: 20 mcg Documented By: BWHannah Admin: 04/02/23 07:25 Dose: 20 mcg Documented By: Admin: 04/01/23 19:44 Dose: 20 mcg Documented By: Admin: 04/01/23 07:14 Dose: 20 mcg Documented By: Admin: 03/31/23 19:55 Dose: 20 mcg Documented By: Admin: 03/31/23 07:26 Dose: 20 mcg Documented By: Admin: 03/30/23 19:35 Dose: 20 mcg Documented By: EMBernardo Admin: 03/30/23 07:09 Dose: 20 mcg Documented By: Admin: 03/29/23 20:05 Dose: 20 mcg Documented By: Admin: 03/29/23 06:55 Dose: 20 mcg Documented By: Admin: 03/28/23 19:28 Dose: 20 mcg Documented By: Admin: 03/28/23 07:27 Dose: 20 mcg Documented By: Admin: 03/27/23 23:04 Dose: 20 mcg Documented By: MAURO Bumetanide 4 mg/ Syringe 16 mls @ 4 mls/min IV DAILY CAROL Stop: 05/02/23 15:59 Last Admin: 04/03/23 09:20 Dose: 4 mls/min Documented By: Admin: 04/02/23 17:30 Dose: 4 mls/min Documented By: MARY Insulin Aspart (Insulin Aspart Per Unit Charge) 0 units SC ACHS CAROL Stop: 04/26/23 16:29 Last Admin: 04/03/23 09:12 Dose: Not Given Documented By: Admin: 04/02/23 20:44 Dose: 1 units Documented By: LILLIAM Co-signed By: VIR[place] Admin: 04/02/23 17:31 Dose: Not Given Documented By: Admin: 04/02/23 12:37 Dose: 1 units Documented By: HILLARY Co-signed By: KIMBERLY Admin: 04/02/23 08:48 Dose: Not Given Documented By: Admin: 04/01/23 21:27 Dose: Not Given Documented By: Admin: 04/01/23 17:23 Dose: Not Given Documented By: Admin: 04/01/23 12:42 Dose: Not Given Documented By: Admin: 04/01/23 09:49 Dose: Not Given Documented By: Admin: 03/31/23 20:32 Dose: Not Given Documented By: Admin: 03/31/23 17:25 Dose: Not Given Documented By: Admin: 03/31/23 13:04 Dose: 1 units Documented By: BHARGAV Co-signed By: KIMBERLY Admin: 03/31/23 08:23 Dose: Not Given Documented By: Admin: 03/30/23 20:23 Dose: Not Given Documented By: Admin: 03/30/23 17:30 Dose: Not Given Documented By: Admin: 03/30/23 12:53 Dose: 1 units Documented By: ROXANE Co-signed By: [id number] Admin: 03/30/23 08:54 Dose: Not Given Documented By: Admin: 03/29/23 20:39 Dose: Not Given Documented By: Admin: 03/29/23 17:24 Dose: Not Given Documented By: Admin: 03/29/23 12:46 Dose: Not Given Documented By: Admin: 03/29/23 08:50 Dose: Not Given Documented By: Admin: 03/28/23 22:07 Dose: Not Given Documented By: Admin: 03/28/23 17:27 Dose: Not Given Documented By: Admin: 03/28/23 12:50 Dose: 1 units Documented By: ROXANE Co-signed By: ZACHARY Admin: 03/28/23 08:26 Dose: Not Given Documented By: Admin: 03/27/23 23:17 Dose: Not Given Documented By: Admin: 03/27/23 19:13 Dose: Not Given Documented By: ANGELES Co-signed By: Levalbuterol HCl (Levalbuterol Hcl 0.63 Mg/3 Ml Neb) 0.63 mg INH Q4H PRN; Protocol PRN Reason: Cough Stop: 04/26/23 20:41 Last Admin: 03/28/23 02:51 Dose: 0.63 mg Documented By: MAURO Levothyroxine Sodium (Levothyroxine Sodium 137 Mcg Tablet) 137 mcg PO DAILYBB CAROL Stop: 04/27/23 06:29 Last Admin: 04/03/23 06:27 Dose: 137 mcg Documented By: Admin: 04/02/23 05:34 Dose: 137 mcg Documented By: Admin: 04/01/23 05:38 Dose: 137 mcg Documented By: Admin: 03/31/23 05:23 Dose: 137 mcg Documented By: Admin: 03/30/23 05:39 Dose: 137 mcg Documented By: Admin: 03/29/23 05:30 Dose: 137 mcg Documented By: Admin: 03/28/23 06:00 Dose: 137 mcg Documented By: JASON Magnesium Oxide (Magnesium Oxide 400 Mg Tab) 400 mg PO BID CAROL Stop: 04/26/23 20:59 Last Admin: 04/03/23 09:21 Dose: 400 mg Documented By: Admin: 04/02/23 20:49 Dose: 400 mg Documented By: Admin: 04/02/23 08:50 Dose: 400 mg Documented By: Admin: 04/01/23 21:32 Dose: 400 mg Documented By: Admin: 04/01/23 09:28 Dose: 400 mg Documented By: Admin: 03/31/23 20:02 Dose: 400 mg Documented By: Admin: 03/31/23 09:25 Dose: 400 mg Documented By: Admin: 03/30/23 20:21 Dose: 400 mg Documented By: Admin: 03/30/23 08:54 Dose: 400 mg Documented By: Admin: 03/29/23 21:23 Dose: 400 mg Documented By: Admin: 03/29/23 08:11 Dose: 400 mg Documented By: Admin: 03/28/23 22:06 Dose: 400 mg Documented By: Admin: 03/28/23 08:23 Dose: 400 mg Documented By: Admin: 03/27/23 23:15 Dose: 400 mg Documented By: JASON Miscellaneous (Remove Nitro-Dur Patch) 1 each N/A DAILY@2100 CAROL Stop: 04/26/23 20:59 Last Admin: 04/02/23 20:50 Dose: 1 each Documented By: Admin: 04/01/23 21:32 Dose: Not Given Documented By: Admin: 03/31/23 20:02 Dose: Not Given Documented By: Admin: 03/30/23 20:23 Dose: 1 each Documented By: Admin: 03/29/23 21:23 Dose: Not Given Documented By: Admin: 03/28/23 22:08 Dose: Not Given Documented By: Admin: 03/27/23 23:17 Dose: Not Given Documented By: JASON Montelukast Sodium (Montelukast Sodium 10 Mg Tablet) 10 mg PO DAILY CAROL Stop: 04/27/23 08:59 Last Admin: 04/03/23 09:20 Dose: 10 mg Documented By: Admin: 04/02/23 08:49 Dose: 10 mg Documented By: Admin: 04/01/23 09:28 Dose: 10 mg Documented By: Admin: 03/31/23 09:23 Dose: 10 mg Documented By: Admin: 03/30/23 08:51 Dose: 10 mg Documented By: Admin: 03/29/23 08:11 Dose: 10 mg Documented By: Admin: 03/28/23 08:24 Dose: 10 mg Documented By: ROXANE Nifedipine (Nifedipine Extended Rel 30 Mg Tabcr) 90 mg PO HS CAROL Stop: 04/26/23 20:59 Last Admin: 04/02/23 20:56 Dose: Not Given Documented By: Admin: 04/01/23 21:30 Dose: 90 mg Documented By: Admin: 03/31/23 20:01 Dose: 90 mg Documented By: Admin: 03/30/23 20:22 Dose: 90 mg Documented By: Admin: 03/29/23 21:23 Dose: 90 mg Documented By: Admin: 03/28/23 22:07 Dose: 90 mg Documented By: Admin: 03/27/23 23:16 Dose: 90 mg Documented By: JASON Ondansetron HCl (Ondansetron Inj 2 Mg/Ml 2 Ml Vial) 4 mg IV Q4H PRN PRN Reason: Nausea Stop: 04/28/23 10:15 Last Admin: 03/31/23 08:24 Dose: 4 mg Documented By: Admin: 03/29/23 10:22 Dose: 4 mg Documented By: ROXANE Pantoprazole Sodium (Pantoprazole 40 Mg Tab) 40 mg PO DAILY CAROL; Protocol Stop: 04/27/23 08:59 Last Admin: 04/03/23 09:21 Dose: 40 mg Documented By: Admin: 04/02/23 08:49 Dose: 40 mg Documented By: Admin: 04/01/23 09:28 Dose: 40 mg Documented By: Admin: 03/31/23 09:23 Dose: 40 mg Documented By: Admin: 03/30/23 08:53 Dose: 40 mg Documented By: Admin: 03/29/23 08:10 Dose: 40 mg Documented By: Admin: 03/28/23 08:24 Dose: 40 mg Documented By: ROXANE Potassium Chloride (Potassium Chloride Crtab 20 Meq Tabcr) 20 meq PO QAM [facility] Stop: 04/27/23 08:59 Last Admin: 04/03/23 09:21 Dose: 20 meq Documented By: Admin: 04/02/23 08:49 Dose: 20 meq Documented By: Admin: 04/01/23 09:29 Dose: 20 meq Documented By: Admin: 03/31/23 09:22 Dose: 20 meq Documented By: Admin: 03/30/23 08:51 Dose: 20 meq Documented By: Admin: 03/29/23 08:11 Dose: 20 meq Documented By: Admin: 03/28/23 08:24 Dose: 20 meq Documented By: ROXANE Prednisone (Prednisone 5 Mg Tab) 5 mg PO DAILY [facility] Stop: 04/27/23 08:59 Last Admin: 04/03/23 09:21 Dose: 5 mg Documented By: Admin: 04/02/23 08:49 Dose: 5 mg Documented By: Admin: 04/01/23 09:29 Dose: 5 mg Documented By: Admin: 03/31/23 09:23 Dose: 5 mg Documented By: Admin: 03/30/23 08:52 Dose: 5 mg Documented By: Admin: 03/29/23 08:08 Dose: 5 mg Documented By: Admin: 03/28/23 08:23 Dose: 5 mg Documented By: ROXANE Discontinued Medications Albuterol (Albut/Ipratrop 3mg/0.5mg Neb 3 Ml Vial) 3 ml NEB NOW STA; Protocol Stop: 03/27/23 16:00 Last Admin: 03/27/23 16:12 Dose: 3 ml Documented By: MMG Albuterol (Albut/Ipratrop 3mg/0.5mg Neb 3 Ml Vial) 3 ml NEB QIDR CAROL; Protocol Stop: 04/26/23 21:59 Last Admin: 03/28/23 07:27 Dose: Not Given Documented By: Admin: 03/27/23 23:04 Dose: Not Given Documented By: MAURO Bumetanide (Bumetanide 1 Mg Tab) 2 mg PO QAM [facility] Stop: 04/29/23 08:59 Last Admin: 03/31/23 09:24 Dose: 2 mg Documented By: Admin: 03/30/23 08:52 Dose: 2 mg Documented By: ROXANE Bumetanide (Bumetanide 1 Mg Tab) 2 mg PO NOW ONE Stop: 03/31/23 10:01 Last Admin: 03/31/23 09:48 Dose: 2 mg Documented By: ROXANE Bumetanide (Bumetanide 1 Mg Tab) 4 mg PO NOW ONE Stop: 04/01/23 08:52 Last Admin: 04/01/23 09:49 Dose: 1 mg Documented By: AMRY Bumetanide (Bumetanide 1 Mg Tab) 4 mg PO NOW ONE Stop: 04/02/23 09:31 Last Admin: 04/02/23 10:12 Dose: 4 mg Documented By: MARY Cholestyramine Resin (Cholestyramine Light 4 Gm Pkt) 4 gm PO NOW STA Stop: 03/30/23 23:35 Last Admin: 03/31/23 00:12 Dose: 4 gm Documented By: TERRANCE Doxycycline Hyclate (Doxycycline Hyclate 100 Mg Cap) 100 mg PO BID CAROL Stop: 03/27/23 21:46 Last Admin: 03/27/23 23:14 Dose: 100 mg Documented By: JASON Epoetin Richard (Epoetin Richard 10,000 Units/Ml Vial) 10,000 units SQ ONE ONE Stop: 04/02/23 11:10 Last Admin: 04/02/23 12:05 Dose: 10,000 units Documented By: MARY Bumetanide 2 mg/ Syringe 8 mls @ 4 mls/min IV ONE ONE Stop: 03/27/23 15:08 Last Admin: 03/27/23 16:04 Dose: 4 mls/min Documented By: ANGELES Bumetanide 2 mg/ Syringe 8 mls @ 4 mls/min IV DAILY CAROL Stop: 04/27/23 08:59 Last Admin: 03/29/23 08:09 Dose: 4 mls/min Documented By: Admin: 03/28/23 08:25 Dose: 4 mls/min Documented By: ROXANE Iron Sucrose 300 mg/ Sodium (Chloride) 265 mls @ 176.667 mls/hr IV DAILY CAROL Stop: 04/02/23 10:29 Last Infusion: 04/02/23 12:21 Dose: Infused Documented By: Admin: 04/02/23 09:47 Dose: 177 mls/hr Documented By: Infusion: 04/01/23 15:00 Dose: Infused Documented By: Admin: 04/01/23 11:26 Dose: 177 mls/hr Documented By: Infusion: 03/31/23 10:19 Dose: Infused Documented By: Admin: 03/31/23 08:24 Dose: 177 mls/hr Documented By: Infusion: 03/30/23 13:31 Dose: Infused Documented By: Admin: 03/30/23 11:03 Dose: 176.7 mls/hr Documented By: ROXANE Metolazone (Metolazone 2.5 Mg Tablet) 2.5 mg PO NOW ONE Stop: 03/30/23 09:31 Last Admin: 03/30/23 10:14 Dose: 2.5 mg Documented By: ROXANE Nitroglycerin (Nitroglycerin 0.4 Mg/Hr Patch) 1 patch TD NOW STA Stop: 03/27/23 18:46 Last Admin: 03/27/23 19:29 Dose: Not Given Documented By: ANGELES Potassium Chloride (Potassium Chloride Crtab 20 Meq Tabcr) 20 meq PO NOW ONE Stop: 04/01/23 08:54 Last Admin: 04/01/23 09:27 Dose: 20 meq Documented By: MARY Potassium Chloride (Potassium Chloride 20 Meq/15 Ml Udc) 20 meq PO NOW STA Stop: 04/02/23 09:21 Last Admin: 04/02/23 09:49 Dose: 20 meq Documented By: MARY Prednisone (Prednisone 5 Mg Tab) 5 mg PO NOW ONE Stop: 03/27/23 16:46 Last Admin: 03/27/23 17:55 Dose: 5 mg Documented By: ANGELES PG Care Time/CCT Total # of Minutes Spent Total Time Spent with Patient: Total time spent is greater than 50% in coordination of care (as documented) at patient's floor/unit and/or counseling patient:52 C[place] [address] INT INP/OBS CARE 3/75MIN Patient Type Established History Comprehensive Exam Comprehensive Medical Decision Making High Complexity Diagnoses Heart failure with reduced ejection fraction I50.20 Nonischemic cardiomyopathy I42.8 Pleural effusion J90 Cardiorenal syndrome with renal failure, stage 1-4 or unspecified chronic kidney disease, with heart failure I13.0 Heart failure presence: with heart failure Hypertensive chronic kidney disease stage: stage 1-4 or unspecified chronic kidney disease Paroxysmal atrial fibrillation I48.0 Chronic anticoagulation Z79.01 Hypertension I10 Hyperlipidemia associated with type 2 diabetes mellitus E11.69; E78.5 Hypokalemia E87.6 Time Spent (min) 82 (4) Cardiorenal syndrome Heart failure presence: with heart failure Hypertensive chronic kidney disease stage: stage 1-4 or unspecified chronic kidney disease Qualified Code(s): I13.0 - Hypertensive heart and chronic kidney disease with heart failure and stage 1 through stage 4 chronic kidney disease, or unspecified chronic kidney disease
[2023-04-03] MEDS: DOBUTamine / D5W 500 MG/250 ML BAG IV SCH (13:32)
--- NOTE | 2023-04-03 18:26 | Hospitalist Progress Note ---
Date of Service April 03, 2023 Assessment & Plan (1) Hypoxia: Plan: Most likely secondary to combined CHF exacerbation in setting of advanced chronic kidney disease -Still hypoxic, patient however feels better, hypoxia is improving, patient was not on oxygen before admission to the hospital, continue diuretic, possible thoracentesis on Thursday, hold Eliquis for possible thoracentesis, patient has been transferred to PCU for dobutamine drip (2) CHF exacerbation: Plan: The plan is as mentioned above (3) Asthma: Plan: No wheezing on exam continue current treatment (4) Chest tightness: Plan: -Patient has been experiencing intermittent chest tightness/pressure over the past week -ECG is without acute ST segment or T-wave changes, high sen trop is negative, low suspicion for ACS at this time -Low suspicion for PE, see hypoxia -Will give a DuoNeb treatment now and obtain mag level, if stable will give 2gm IV mag sulfate as well -If she has improvement with DuoNeb will scheduled additional treatments -Continue to treat BL pleural effusions with bumex Improved clinically. No tightness today. 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 Acute on chronic kidney disease due to cardiorenal syndrome -Monitor daily renal function, daily weights, avoid nephrotoxic agents (7) Psoriasis: Plan: -Patient has been taking 5 mg Prednisone HS for years for her Psoriasis with arthritis (8) Hypothyroidism: Plan: -Continue levothyroxine (9) Paroxysmal atrial fibrillation: Plan: -Stable; S/P ICD placement -Continue Carvedilol, amiodarone, and Eliquis (10) Acute respiratory failure with hypoxia: Admission and Anticipated Discharge Date Admission Date: March 27, 2023 Subjective She states that she feels significantly better, patient was transferred to PCU given consulted bread molder recommended dobutamine drip, due to advanced heart failure, Review of Systems Constitutional: no fever Eyes: no problem reported Ear, Nose, Mouth, Throat: no problem reported Respiratory: no cough and no dyspnea Cardiovascular: no chest pain Gastrointestinal: no abdominal pain, no nausea, no vomiting and no diarrhea/loose stools Genitourinary: no dysuria Integumentary: no rash Physical Exam Physical Exam: Constitutional: Patient appears to be of their stated age. Patient is in no apparent distress. Patient is well-developed. Eyes: Pupils are equal round and reactive to light. Conjunctivae are normal. Anicteric sclera. Ears nose, mouth and throat: Deferred. Neck: Trachea is midline. Visual inspection is normal. Respiratory: Bilateral crackles with diminishment at the lung bases. Cardiovascular: Regular rate and rhythm. No murmurs. No edema. Gastrointestinal: Normal bowel sounds, soft, nontender and nondistended. No hepatosplenomegaly noted. Musculoskeletal: No cyanosis. Patient is able to move all extremities. Strength is 5 out of 5 in the upper and lower extremities. Skin: No rashes, warm dry and intact. Neurologic: No obvious focal neurological deficits seen. Psychiatric: Alert and oriented x3 with a euthymic affect. Constitutional: not in distress Eyes: PERRL, conjunctivae normal, anicteric sclerae ENMT: external ear and nose normal, oropharynx normal Neck: trachea midline, no thyromegaly Respiratory: normal respiratory effort (diminished breath sounds at the bases bilaterally) Cardiovascular: Rate/Rhythm: regular rate and regular rhythm Extremities: no edema Gastrointestinal (Abdomen): normal bowel sounds, soft, nontender, no hepatosplenomegaly Neurologic: Speech / Cognition: normal speech and normal cognition Results & Data Results & Data Vital Signs (Past 12 Hours) Vital Signs Temp Pulse Resp BP BP Pulse Ox O2 Del Method 04/03/23 17:30 61 153/85 H 92 Room Air 04/03/23 16:26 36.8 C 72 20 141/77 H 93 Room Air 04/03/23 15:53 Room Air 04/03/23 14:56 66 18 143/86 H 93 Room Air 04/03/23 13:29 36.7 C 62 18 138/78 96 Nasal Cannula 04/03/23 11:48 37.0 C 62 16 118/71 96 Nasal Cannula 04/03/23 08:00 37.0 C 69 16 132/71 93 Nasal Cannula 04/03/23 07:53 Nasal Cannula 04/03/23 07:06 61 18 91 Nasal Cannula O2 Flow Rate 04/03/23 17:30 04/03/23 16:26 04/03/23 15:53 04/03/23 14:56 04/03/23 13:29 1 04/03/23 11:48 1 04/03/23 08:00 2 04/03/23 07:53 2 04/03/23 07:06 2 PG Care Time/CCT Total # of Minutes Spent Total Time Spent with Patient: Total time spent is greater than 50% in coordination of care (as documented) at patient's floor/unit and/or counseling patient: Coding Level of Care Code 95967 SUB INP/OBS CARE 3/50MIN Diagnoses Hypoxia R09.02 CHF exacerbation I50.9 Asthma J45.909 Chest tightness R07.89 Type 2 diabetes mellitus with stage 4 chronic kidney disease, without long-term current use of insulin E11.22; N18.4 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 mcfp insulin use: without mcfp use 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 complication status: with kidney complications 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 complication detail: with chronic kidney disease Chronic kidney disease stage: stage 4 (severe) CKD (chronic kidney disease) N18.9 Psoriasis L40.9 Hypothyroidism E03.9 Paroxysmal atrial fibrillation I48.0 Acute respiratory failure with hypoxia J96.01 (5) Type II diabetes mellitus 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 mcfp insulin use: without terminal clerk use 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 complication status: with kidney complications 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 complication detail: with chronic kidney disease Chronic kidney disease stage: stage 4 (severe) Qualified Code(s): E11.22 - Type 2 diabetes mellitus with diabetic chronic kidney disease; N18.4 - Chronic kidney disease, stage 4 ( severe)
[2023-04-03] MEDS: NIFEdipine EXTENDED REL 30 MG TABCR PO SCH (21:08)
[2023-04-03] MEDS: ATORVASTATIN 40 MG TAB PO SCH (21:08)
[2023-04-04] MEDS: LEVOTHYROXINE SODIUM 137 MCG TABLET PO SCH (06:24)
--- NOTE | 2023-04-04 07:12 | XRay Report ---
XR chest 1V portable CLINICAL HISTORY: follow up effusions COMPARISON STUDY: Chest radiograph April 01, 2023. FINDINGS: Left shoulder arthroplasty and left subclavian pacer/AICD are again noted pneumothorax. Car diomegaly. Pulmonary edema has slightly improved. Moderate bilateral pleural effusions with associate d bibasilar opacities are similar. IMPRESSION: 1. Cardiomegaly with interval improvement in pulmonary edema. 2. No significant change in moderate bilateral pleural effusions and associated bibasilar opacities. ACT 112: Negative or not required by law. Electronically signed by: Alfred Avendaño M.D. 04/04/2023 7:10 AM
[2023-04-04] MEDS: FORMOTEROL 20 MCG/2 ML VIAL NEB SCH ×2 (07:58→18:28)
[2023-04-04] MEDS: BUDESONIDE 0.5 MG/2 ML VIAL (PULMICORT) NEB SCH ×2 (07:58→18:27)
[2023-04-04 08:00] LABS: Hematocrit (blood only) 32.3 % (37.0-47.0); Mean Corpuscular Hemoglobin 25.9 pg (25.0-34.0); Mean Corpuscular Volume 83.7 fL (80.0-100.0); Mean Platelet Volume 10.1 fL (9.4-12.4); Platelet Count 275 K/uL (130-400); RDW Coefficient of Variation 21.4 % (11.5-14.5); RDW Standard Deviation 61.1 fL (36.4-46.3); Red Blood Count 3.86 M/uL (4.20-5.40); White Blood Count 5.88 K/ul (4.8-10.8)
[2023-04-04 08:12] LABS: BUN Creatinine Ratio 12.7 (10-20); Calcium 9.5 mg/dl (8.6-10.3); Est GFR (African American) 19.2 ml/min; Est GFR (Non-African American) 16.6 ml/min; Potassium 3.4 mmol/L (3.5-5.1)
[2023-04-04] MEDS: BUMETANIDE 4 MG in SYRINGE 0 ML IV SCH (08:44)
[2023-04-04] MEDS: MONTELUKAST SODIUM 10 MG TABLET PO SCH (08:44)
[2023-04-04] MEDS: PANTOprazole 40 MG TAB PO SCH (08:45)
[2023-04-04] MEDS: predniSONE 5 MG TAB PO SCH (08:45)
[2023-04-04] MEDS: CALCITRIOL 0.25 MCG CAPSULE PO SCH (08:45)
[2023-04-04] MEDS: carvediloL 25 MG TAB PO SCH ×2 (08:45→17:07)
[2023-04-04] MEDS: DULoxetine HCL 60 MG CAP PO SCH (08:45)
[2023-04-04] MEDS: MAGNESIUM OXIDE 400 MG TAB PO SCH ×2 (08:48→21:57)
[2023-04-04] MEDS: ACETAMINOPHEN 500 MG TAB PO SCH ×2 (08:49→21:58)
[2023-04-04] MEDS: INSULIN ASPART PER UNIT CHARGE SC SCH ×4 (08:54→21:30)
--- NOTE | 2023-04-04 09:52 | Nephrology Progress Note ---
Date of Service April 04, 2023 Assessment & Plan (1) Acute kidney injury superimposed on CKD: (2) Hypokalemia: (3) Cardiorenal syndrome: (4) CKD (chronic kidney disease) stage 4, GFR 15-29 ml/min: (5) Pleural effusion: (6) Anemia, unspecified: Plan 77 year old female with CKD stage G4/A3, b/l cr 2.0 w/ EGFR 25 cc/min 2/2 microvascular disease and hypertensive nephrosclerosis with low grade proteinuria, 02/14 renal US - R 10.1cm, L 10.7cm. Admitted on 03/27/23 with 2 kg weight gain and recurrent CHF. Patient was hypoxemic on RA and CXR revealed persistent pulmonary edema w/ bilateral pleural effusions. Has h/o HFrEF, echo on 01/25/23 revealed LVEF 35-40% w/ global hypokinesis, moderate LVH s/p AICD on 01/29/23. Cr peaked to 4.0, now improved to 2.8, on Dobutamine. Had right-sided thoracentesis this morning with 1400 mL fluid removed. Continues to have moderate left-sided pleural effusion. Overall almost 6 L negative. Over last 24 hours negative more than 2 L. Blood pressure relatively low but asymptomatic. Creatinine slightly improved. Hypokalemia and metabolic alkalosis noted. --Decrease Bumex to 2 mg IV daily, aim for net negative slightly. --Continue to monitor renal function and electrolytes. Admission and Anticipated Discharge Date Admission Date: March 27, 2023 Preethi Mckeon was seen and evaluated this morning. She reports overall feeling better. Had right-sided thoracentesis this morning and had 1400 ml serosanguineous fluid removed. Denies shortness of breath. Blood pressure relatively low but asympto matic. Responding to current dose of diuretics, net negative more than 2 L. Slight improvement in creatinine noted. Review of Systems Review of Systems: Detailed review of system was otherwise unremarkable. Physical Exam Constitutional: WD/WN, vitals as above no acute distress Eyes: + anicteric sclerae Neck: normal visual inspection Respiratory: no respiratory distress Auscultation: + diminished lung sounds; no crackles and no wheezes Cardiovascular: Rate/Rhythm: regular rate and regular rhythm Heart Sounds: normal S1 and normal S2 Extremities: no edema Neurologic: no focal motor deficits and not confused Psychiatric: Orientation: alert and oriented x 3 Results & Data Vital Signs (Past 12 Hours) Vital Signs Temp Pulse Pulse Resp BP BP Pulse Ox 04/04/23 07:58 60 18 93 04/04/23 07:38 36.8 C 67 19 114/69 91 04/04/23 04:40 18 93 04/04/23 04:34 90 04/04/23 03:58 37.0 C 70 20 120/68 93 04/03/23 22:59 37.1 C 64 21 130/78 92 04/03/23 22:00 60 O2 Del Method O2 Flow Rate 04/04/23 07:58 Nasal Cannula 2 04/04/23 07:38 Nasal Cannula 2 04/04/23 04:40 Nasal Cannula 2 04/04/23 04:34 Nasal Cannula 04/04/23 03:58 Room Air 04/03/23 22:59 Room Air 04/03/23 22:00 PG Care Time/CCT Total # of Minutes Spent Total Time Spent with Patient: Total time spent is greater than 50% in coordination of care (as documented) at patient's floor/unit and/or counseling patient: Coding Level of Care Code 64655 SUB INP/OBS CARE 235MIN Diagnoses Acute kidney injury superimposed on CKD N17.9; N18.9 Hypokalemia E87.6 Cardiorenal syndrome with renal failure, stage 1-4 or unspecified chronic kidney disease, with heart failure I13.0 Heart failure presence: with heart failure Hypertensive chronic kidney disease stage: stage 1-4 or unspecified chronic kidney disease CKD (chronic kidney disease) stage 4, GFR 15-29 ml/min N18.4 Pleural effusion J90 Anemia, unspecified D64.9 (3) Cardiorenal syndrome Heart failure presence: with heart failure Hypertensive chronic kidney disease stage: stage 1-4 or unspecified chronic kidney disease Qualified Code(s): I13.0 - Hypertensive heart and chronic kidney disease with heart failure and stage 1 through stage 4 chronic kidney disease, or unspecified chronic kidney disease
[2023-04-04] MEDS: AMIODARONE 200 MG TAB PO SCH (11:27)
--- NOTE | 2023-04-04 11:32 | Procedure Note ---
Procedure Note Date of Service April 04, 2023 Note Procedure: Diagnostic and therapeutic ultrasound-guided catheter right thoracentesis Periodicals Clerk: Dr. Rizwan Mcadams Indication: Pleural effusion Consent: Signed by patient and verified with timeout prior to procedure Anesthesia: 8 mL's of 1% lidocaine without epinephrine given locally Procedure: Consent was verified and timeout performed. Appropriate imaging studies were reviewed prior to the procedure. Patient was placed in a seated position and limited thoracic ultrasound was performed of the right chest. See separate imaging. The site appropriate for thoracentesis was selected. The skin was prepped and draped in normal sterile fashion. Lidocaine was used for local analgesia. Fluid was aspirated via the finder needle. A small skin apurva was made with the scalpel and the catheter over the needle apparatus was advanced over the rib into the pleural space. Using the syringe one-way valve system, a total of 1400 mL's of serosanguineous appearing fluid was removed. Procedure was terminated due to lack of flow. The catheter was removed and observed to be intact. A sterile dressing was applied. Post procedure chest x-ray was ordered. Fluid was sent for LDH, total protein, cell count, glucose, pH, cytology, AFB cultures, gram stain and culture and fungal cultures. The patient tolerated the procedure well without obvious complication. Total of 1400 mL of serosanguineous pleural fluid was removed from the right pleural space. Please hold anticoagulation today. Coding CPT Codes Pulmonary/Thoracic - Pulmonary and Thoracic: 68968 Thoracentesis w imaging ([id number]) [facility] [place] Procedure Codes (Charges) Pulmonary/Thoracic Procedure 1: Pulmonary and Thoracic: 92699 Thoracentesis w imaging
--- NOTE | 2023-04-04 11:40 | Pulmonology Progress Note ---
Date of Service April 04, 2023 Assessment & Plan (1) Heart failure with reduced ejection fraction: (2) Acute respiratory failure with hypoxia: (3) CKD (chronic kidney disease) stage 4, GFR 15-29 ml/min: (4) Pleural effusion: Plan 77-year-old female with a history of asthma, ischemic cardiomyopathy, atrial fibrillation and ventricular tachycardia who is currently hospitalized due to an acute exacerbation of heart failure with a reduced ejection fraction. Pulmonary is consulted due to bilateral pleural effusions. I have performed a right thoracentesis and removed 1.4 L of serosanguineous appearing fluid. Patient has had increased fatigue and weight loss despite her cardiomyopathy. I am somewhat concerned of potential underlying malignancy given the appearance of the fluid. Discussed with cardiology. They are repeating an echo today. We will obtain chest x-ray postthoracentesis. Ultrasound imaging postthoracentesis suggested near complete resolution of the right pleural effusion with expansion of the right lung. Please hold Eliquis today and will consider reinitiating tomorrow. Discussed with cardiology and Dr. Mitchell feels this is reasonable as she has not had any dysrhythmias during this hospital stay. Mammography performed earlier this year (03/04/2023) did not suggest malignancy. Colonoscopy 2019 with biopsy of then ascending polyp revealed tubular adenoma. She is also followed by neurosurgery for meningioma. We will send the pleural fluid for chemistries, cytology and cultures. We will also check a CBC stat given the serosanguineous appearance of the fluid. She was able to be weaned off oxygen after the thoracentesis and is maintaining saturations of 95 to 96% on room air. Thank you for the consult. We will continue to follow with you. Admission and Anticipated Discharge Date Admission Date: March 27, 2023 Subjective Patient currently under PCU status. She notes continued cough and sinus congestion. She continues to have shortness of breath with minimal exertion. She is currently on a dobutamine infusion. She denies any chest pain. No nausea or vomiting. No fevers. Review of Systems Review of Systems: All systems reviewed & are unremarkable except as noted in HPI & below Physical Exam Physical Exam: Constitutional: Patient appears to be of their stated age. Patient is in no apparent distress. Patient is well-developed. Eyes: Pupils are equal round and reactive to light. Conjunctivae are normal. Anicteric sclera. Ears nose, mouth and throat: Deferred. Neck: Trachea is midline. Visual inspection is normal. Respiratory: Bilateral crackles with diminishment at the lung bases. Cardiovascular: Regular rate and rhythm. No murmurs. No edema. Gastrointestinal: Normal bowel sounds, soft, nontender and nondistended. No hepatosplenomegaly noted. Musculoskeletal: No cyanosis. Patient is able to move all extremities. Strength is 5 out of 5 in the upper and lower extremities. Skin: No rashes, warm dry and intact. Neurologic: No obvious focal neurological deficits seen. Psychiatric: Alert and oriented x3 with a euthymic affect. Results & Data Results & Data Vital Signs (Past 12 Hours) Vital Signs Temp Pulse Resp BP BP Pulse Ox O2 Del Method 04/04/23 07:58 60 18 93 Nasal Cannula 04/04/23 07:38 36.8 C 67 19 114/69 91 Nasal Cannula 04/04/23 04:40 18 93 Nasal Cannula 04/04/23 04:34 90 Nasal Cannula 04/04/23 03:58 37.0 C 70 20 120/68 93 Room Air O2 Flow Rate 04/04/23 07:58 2 04/04/23 07:38 2 04/04/23 04:40 2 04/04/23 04:34 04/04/23 03:58 PG Care Time/CCT Total # of Minutes Spent Total Time Spent with Patient: Total time spent is greater than 50% in coordination of care (as documented) at patient's floor/unit and/or counseling patient: Coding Level of Care Code 84666 SUB INP/OBS CARE 3/50MIN Diagnoses Heart failure with reduced ejection fraction I50.20 Acute respiratory failure with hypoxia J96.01 CKD (chronic kidney disease) stage 4, GFR 15-29 ml/min N18.4 Pleural effusion J90
--- NOTE | 2023-04-04 12:07 | XRay Report ---
XR chest 1V portable CLINICAL HISTORY: s/p right thoracentesis COMPARISON STUDY: Chest radiograph performed earlier today. FINDINGS: There is no pneumothorax following right thoracentesis. The right pleural effusion has lynne edly decreased in size. A moderate left pleural effusion is again noted with left basilar opacity. Le ft shoulder arthroplasty and left subclavian pacer/AICD are place. There is cardiomegaly. Pulmonary v ascular congestion is again noted IMPRESSION: 1. No pneumothorax following right thoracentesis. Marked decrease in size of the right pleural effusi on. 2. Moderate left pleural effusion with left basilar opacity, unchanged. ACT 112: Negative or not required by law. Electronically signed by: Alfred Avendaño M.D. 04/04/2023 12:06 PM
[2023-04-04 12:12] LABS: Basophils # (auto) 0.03 K/uL (0.00-0.20); Basophils % (auto) 0.7 %; Eosinophils # (auto) 0.07 K/uL (0.00-0.50); Eosinophils % (auto) 1.6 %; Hematocrit (blood only) 32.3 % (37.0-47.0); Hemoglobin 9.9 g/dl (12.0-16.0); Immature Granulocytes # (auto) 0.03 K/uL (0.01-0.20); Immature Granulocytes % (auto) 0.7 %; Lymphocytes # (auto) 0.98 K/uL (1.20-3.40); Lymphocytes % (auto) 22.2 %; Mean Corpuscular Hemoglobin 25.8 pg (25.0-34.0); Mean Corpuscular Hgb Conc 30.7 g/dL (32.0-36.0); Mean Corpuscular Volume 84.3 fL (80.0-100.0); Mean Platelet Volume 10.3 fL (9.4-12.4); Monocytes % (auto) 11.3 %; Neutrophils % (auto) 63.5 %; Platelet Count 285 K/uL (130-400); RDW Coefficient of Variation 21.3 % (11.5-14.5); RDW Standard Deviation 61.1 fL (36.4-46.3); Red Blood Count 3.83 M/uL (4.20-5.40); White Blood Count 4.41 K/ul (4.8-10.8)
[2023-04-04 12:21] LABS: Total Protein Pleural Fluid 5.1 gm/dl
[2023-04-04 12:23] LABS: Total Protein 8.2 gm/dl (6.0-8.3)
--- NOTE | 2023-04-04 12:34 | Cardiology Progress Note ---
Date of Service April 04, 2023 Assessment & Plan (1) CHF (congestive heart failure): (2) CKD (chronic kidney disease): (3) Paroxysmal ventricular tachycardia: (4) Paroxysmal atrial fibrillation: Plan 1. Congestive heart failure: I am not sure how severe her heart failure is, in the past she has significant left ventricular dysfunction however her ejection fraction today (although on dobutamine) appears nearly normal. I had hoped for an improvement following biventricular pacing and I think we have seen that. I do not think we can explain all of her difficulties of heart failure and in fact I would be cautious about too much diuresis. I have not discontinued her dobutamine, although I think that is a strong consideration. 2. Chronic kidney disease: I do not know if the majority of her kidney disease is due to low cardiac output, although it has improved during this hospitalization. Perhaps dobutamine helped, but I cannot explain all of her ejection fraction recovery on dobutamine, most of that I believe was on biventricular pacing. 3. Paroxysmal ventricular tachycardia: This has been stable on amiodarone, but I think we need to continue that. That may be interfering with her appetite but she is on a normal dose of 200 mg daily and did have a lot of difficulty with ventricular arrhythmias before starting it. 4. Atrial fibrillation: I did not interrogate her device today, we probably will do that, but she does not seem to have atrial fibrillation here. Admission and Anticipated Discharge Date Admission Date: March 27, 2023 Subjective The patient is feeling better today, she has been diuresed substantially and she is on dobutamine. She is not having chest discomfort or shortness of breath. Of note she does describe a poor appetite and not eating very well. She did have a thoracentesis performed today where a large amount of bloody fluid was removed and she feels better following that procedure. I did have a echocardiogram done since she had not had 1 since her biventricular ICD upgrade, her left ventricular function appears substantially improved and although this was done on dobutamine it looks almost normal. Physical Exam Physical Exam: Constitutional: Alert, cooperative and in no distress. HEENT: Unremarkable Neck: No jugular venous distention, carotid pulses are normal and equal bilaterally without bruits. Pulmonary: Slight crackles on auscultation bilaterally. Cardiac: Regular rhythm with no murmur, gallop or rub. Abdomen: Soft, nontender with normal bowel sounds. Extremities: No edema. Distal pulses intact. Neurologic: No focal findings. Gait was not tested. Skin: No rash, ecchymoses or petechiae. Results & Data Vital Signs (Past 12 Hours) Vital Signs Temp Pulse Resp BP BP Pulse Ox O2 Del Method 04/04/23 07:58 60 18 93 Nasal Cannula 04/04/23 07:38 36.8 C 67 19 114/69 91 Nasal Cannula 04/04/23 04:40 18 93 Nasal Cannula 04/04/23 04:34 90 Nasal Cannula 04/04/23 03:58 37.0 C 70 20 120/68 93 Room Air O2 Flow Rate 04/04/23 07:58 2 04/04/23 07:38 2 04/04/23 04:40 2 04/04/23 04:34 04/04/23 03:58 Laboratory Results Cardiac Enzymes 04/04/23 Range/Units 11:51 Lactate Dehydrogenase 119 (86-244) U/L CBC 04/04/23 04/04/23 Range/Units 07:28 11:51 WBC 5.88 4.41 L (4.8-10.8) K/ul RBC 3.86 L 3.83 L (4.20-5.40) M/uL Hgb 10.0 L 9.9 L (12.0-16.0) g/dl Hct 32.3 L 32.3 L (37.0-47.0) % Plt Count 275 285 (130-400) K/uL Neut # (Auto) 2.80 (1.40-6.50) K/uL Lymph # (Auto) 0.98 L (1.20-3.40) K/uL [place] # (Auto) 0.50 (0.11-0.59) K/uL Eos # (Auto) 0.07 (0.00-0.50) K/uL Baso # (Auto) 0.03 (0.00-0.20) K/uL Comprehensive Metabolic Panel 04/04/23 04/04/23 Range/Units 07:28 11:51 Sodium 140 (136-145) mmol/L Potassium 3.4 L (3.5-5.1) mmol/L Chloride 96 L (98-107) mmol/L Carbon Dioxide 38 H (21-32) mmol/L BUN 34 H (6-23) mg/dl Creatinine 2.68 H (0.6-1.2) mg/dl Glucose 94 (70-99(Fasting)) mg/dl Calcium 9.5 (8.6-10.3) mg/dl Total Protein 8.2 (6.0-8.3) gm/dl Intake and Output 04/03/23 04/04/23 04/04/23 22:59 06:59 14:59 Intake Total 348.107 / 348.107 109.12 / 109.12 Output Total 1999 / 2700 700 / 2700 Balance -1651.893 / -2351.893 -700 / -2351.893 109.12 / 109.12 Intake: IV 48.107 / 48.107 109.12 / 109.12 DOBUTamine / D5W 500 mg In 250 48.107 / 48.107 109.12 / 109.12 ml @ 3 MCG/KG/MIN 8.802 mls/hr IV .Q24H CAROL Rx#:[id number] Oral 300 / 300 Output: Urine 1999 / 2700 700 / 2700 Other: # Unmeasured Voids 1 Diagnostic Findings Telemetry: AV sequential pacing An electrocardiogram today demonstrates AV sequential pacing. PG Care Time/CCT Total # of Minutes Spent Total Time Spent with Patient: Total time spent is greater than 50% in coordination of care (as documented) at patient's floor/unit and/or counseling patient: Coding Level of Care Code 63210 SUB INP/OBS CARE 3/50MIN Diagnoses CHF (congestive heart failure) I50.9 CKD (chronic kidney disease) N18.9 Paroxysmal ventricular tachycardia I47.29 Paroxysmal atrial fibrillation I48.0
[2023-04-04 12:40] LABS: Appearance Pleural Fluid Bloody; Color Pleural Fluid Red; RBC Pleural Fluid Auto 183000 /uL; Source Pleural Fluid Right Lung; WBC Pleural Fluid Auto 724 /uL
[2023-04-04 12:41] LABS: RBC Morphology Unremarkable
[2023-04-04 12:42] LABS: Lymphocytes, Fluid 95 %; Neutrophils, Fluid 5 %
--- NOTE | 2023-04-04 13:42 | XCELERA ---
[id number]
[2023-04-04] MEDS: DOBUTamine / D5W 500 MG/250 ML BAG IV SCH (17:06)
--- NOTE | 2023-04-04 20:32 | Hospitalist Progress Note ---
Date of Service April 04, 2023 Assessment & Plan (1) Hypoxia: Plan: Most likely combination of chronic systolic heart failure, although echocardiogram today showed systolic function has improved after ICD upgrade, most likely combination of CHF, COPD and chronic kidney disease stage IV She is improving currently on room air, patient stated dobutamine and transferred to PCU, I defer to processing operator regarding the continuation of dobutamine, currently patient on IV Bumex, patient is status post thoracentesis (2) CHF exacerbation: Plan: As mentioned above history of chronic systolic heart failure, patient had ICD upgrade, apparently current ejection fraction within normal limits according to cardiology note, however patient dobutamine (3) Asthma: Plan: No wheezing on exam continue current treatment (4) Chest tightness: Plan: - Has resolved (5) Type II diabetes mellitus: Plan: -Hold Trulicity -Monitor BSG ACHS, goal is 110-140 - (6) CKD (chronic kidney disease): Plan: 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 Acute on chronic kidney disease due to cardiorenal syndrome -Monitor daily renal function, daily weights, avoid nephrotoxic agents (7) Psoriasis: Plan: -Patient has been taking 5 mg Prednisone HS for years for her Psoriasis with arthritis (8) Hypothyroidism: Plan: -Continue levothyroxine (9) Paroxysmal atrial fibrillation: Plan: -Stable; S/P ICD placement/ICD upgrade -Continue Carvedilol, amiodarone, and Eliquis was hold for thoracentesis (10) Acute respiratory failure with hypoxia: Admission and Anticipated Discharge Date Admission Date: March 27, 2023 Subjective The patient is feeling better today, she has been diuresed substantially and she is on dobutamine. Currently patient is on room air, the patient is status post thoracentesis large amount of bloody fluid was removed Review of Systems Constitutional: no fever Eyes: no problem reported Ear, Nose, Mouth, Throat: no problem reported Respiratory: no cough and no dyspnea Cardiovascular: no chest pain Gastrointestinal: no abdominal pain, no nausea, no vomiting and no diarrhea/loose stools Genitourinary: no dysuria Integumentary: no rash Physical Exam Physical Exam: Constitutional: Patient appears to be of their stated age. Patient is in no apparent distress. Patient is well-developed. Eyes: Pupils are equal round and reactive to light. Conjunctivae are normal. Anicteric sclera. Ears nose, mouth and throat: Deferred. Neck: Trachea is midline. Visual inspection is normal. Respiratory: Bilateral crackles with diminishment at the lung bases. Cardiovascular: Regular rate and rhythm. No murmurs. No edema. Gastrointestinal: Normal bowel sounds, soft, nontender and nondistended. No hepatosplenomegaly noted. Musculoskeletal: No cyanosis. Patient is able to move all extremities. Strength is 5 out of 5 in the upper and lower extremities. Skin: No rashes, warm dry and intact. Neurologic: No obvious focal neurological deficits seen. Psychiatric: Alert and oriented x3 with a euthymic affect. Constitutional: not in distress Eyes: PERRL, conjunctivae normal, anicteric sclerae ENMT: external ear and nose normal, oropharynx normal Neck: trachea midline, no thyromegaly Respiratory: normal respiratory effort (diminished breath sounds at the bases bilaterally) Cardiovascular: Rate/Rhythm: regular rate and regular rhythm Extremities: no edema Gastrointestinal (Abdomen): normal bowel sounds, soft, nontender, no hepatosplenomegaly Neurologic: Speech / Cognition: normal speech and normal cognition Results & Data Results & Data Vital Signs (Past 12 Hours) Vital Signs Temp Pulse Resp BP Pulse Ox O2 Del Method 04/04/23 19:52 36.9 C 62 16 98/53 L 95 Room Air 04/04/23 18:28 62 16 93 Room Air 04/04/23 15:57 37.0 C 60 18 103/60 93 Room Air 04/04/23 12:16 Room Air 04/04/23 11:52 36.5 C 60 18 105/59 L 98 Room Air PG Care Time/CCT Total # of Minutes Spent Total Time Spent with Patient: Total time spent is greater than 50% in coordination of care (as documented) at patient's floor/unit and/or counseling patient: Coding Level of Care Code 81261 SUB INP/OBS CARE 2/35MIN Diagnoses Hypoxia R09.02 CHF exacerbation I50.9 Asthma J45.909 Chest tightness R07.89 Type 2 diabetes mellitus with stage 4 chronic kidney disease, without long-term current use of insulin E11.22; N18.4 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 parts counterman insulin use: without parts counterman use 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 complication status: with kidney complications 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 complication detail: with chronic kidney disease Chronic kidney disease stage: stage 4 (severe) CKD (chronic kidney disease) N18.9 Psoriasis L40.9 Hypothyroidism E03.9 Paroxysmal atrial fibrillation I48.0 Acute respiratory failure with hypoxia J96.01 (5) Type II diabetes mellitus 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 longterm insulin use: without parts counterman use Diabetes me llitus complication status: with kidney complications 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 complication detail: with chronic kidney disease Chronic kidney disease stage: stage 4 (severe) Qualified Code(s): E11.22 - Type 2 diabetes mellitus with diabetic chronic kidney disease; N18.4 - Chronic kidney disease, stage 4 (severe)
[2023-04-04] MEDS: ATORVASTATIN 40 MG TAB PO SCH (21:56)
[2023-04-04] MEDS: NIFEdipine EXTENDED REL 30 MG TABCR PO SCH (21:58)
[2023-04-05] MEDS ORDERED: ACETAMINOPHEN 1,000 MG/100 ML VIAL IV STA (03:51)
[2023-04-05] MEDS: LEVOTHYROXINE SODIUM 137 MCG TABLET PO SCH (06:17)
[2023-04-05] MEDS: FORMOTEROL 20 MCG/2 ML VIAL NEB SCH (07:11)
[2023-04-05] MEDS: BUDESONIDE 0.5 MG/2 ML VIAL (PULMICORT) NEB SCH (07:11)
[2023-04-05 07:41] LABS: Basophils # (auto) 0.03 K/uL (0.00-0.20); Basophils % (auto) 0.5 %; Eosinophils # (auto) 0.07 K/uL (0.00-0.50); Eosinophils % (auto) 1.1 %; Hemoglobin 9.9 g/dl (12.0-16.0); Immature Granulocytes # (auto) 0.03 K/uL (0.01-0.20); Immature Granulocytes % (auto) 0.5 %; Lymphocytes # (auto) 1.49 K/uL (1.20-3.40); Lymphocytes % (auto) 23.4 %; Mean Corpuscular Hemoglobin 25.9 pg (25.0-34.0); Mean Corpuscular Hgb Conc 31.9 g/dL (32.0-36.0); Mean Corpuscular Volume 81.2 fL (80.0-100.0); Mean Platelet Volume 10.2 fL (9.4-12.4); Monocytes # (auto) 0.66 K/uL (0.11-0.59); Monocytes % (auto) 10.4 %; Neutrophils # (auto) 4.09 K/uL (1.40-6.50); Neutrophils % (auto) 64.1 %; Platelet Count 255 K/uL (130-400); RDW Coefficient of Variation 21.7 % (11.5-14.5); RDW Standard Deviation 59.8 fL (36.4-46.3); Red Blood Count 3.82 M/uL (4.20-5.40); White Blood Count 6.37 K/ul (4.8-10.8)
[2023-04-05 08:00] LABS: BUN Creatinine Ratio 13.7 (10-20); Calcium 9.4 mg/dl (8.6-10.3); Creatinine Clr Calc Pharmacy 22.2 ml/min; Est GFR (African American) 18.4 ml/min; Est GFR (Non-African American) 15.9 ml/min; Potassium 3.4 mmol/L (3.5-5.1)
[2023-04-05] MEDS: INSULIN ASPART PER UNIT CHARGE SC SCH ×2 (08:00→11:48)
[2023-04-05] MEDS: ACETAMINOPHEN 500 MG TAB PO SCH (08:06)
[2023-04-05] MEDS: POTASSIUM CHLORIDE CRTAB 20 MEQ TABCR PO SCH (08:07)
[2023-04-05] MEDS: CALCITRIOL 0.25 MCG CAPSULE PO SCH (08:08)
[2023-04-05] MEDS: DULoxetine HCL 60 MG CAP PO SCH (08:08)
[2023-04-05] MEDS: predniSONE 5 MG TAB PO SCH (08:08)
[2023-04-05 08:09] LABS: Anisocytosis Present; Microcytosis Present; Polychromasia 1+
[2023-04-05] MEDS: PANTOprazole 40 MG TAB PO SCH (08:09)
[2023-04-05] MEDS: MONTELUKAST SODIUM 10 MG TABLET PO SCH (08:09)
[2023-04-05] MEDS: MAGNESIUM OXIDE 400 MG TAB PO SCH (08:10)
[2023-04-05] MEDS ORDERED: BUMETANIDE 2 MG in SYRINGE 0 ML IV SCH (09:00)
[2023-04-05] MEDS: AMIODARONE 200 MG TAB PO SCH (09:15)
--- NOTE | 2023-04-05 11:03 | Nephrology Progress Note ---
Date of Service April 05, 2023 Assessment & Plan (1) Acute kidney injury superimposed on CKD: (2) Hypokalemia: (3) Cardiorenal syndrome: (4) CKD (chronic kidney disease) stage 4, GFR 15-29 ml/min: (5) Pleural effusion: (6) Anemia, unspecified: Plan 77 year old female with CKD stage G4/A3, b/l cr 2.0 w/ EGFR 25 cc/min 2/2 microvascular disease and hypertensive nephrosclerosis with low grade proteinuria, 02/14 renal US - R 10.1cm, L 10.7cm. Admitted on 03/27/23 with 2 kg weight gain and recurrent CHF. Patient was hypoxemic on RA and CXR revealed persistent pulmonary edema w/ bilateral pleural effusions. Has h/o HFrEF, echo on 01/25/23 revealed LVEF 35-40% w/ global hypokinesis, moderate LVH s/p AICD on 01/29/23. Cr peaked to 4.0, now improved to 2.8, on Dobutamine. Had right-sided thoracentesis this morning with 1400 mL fluid removed. Continues to have moderate left-sided pleural effusion. Overall almost 6 L negative. Over last 24 hours negative more than 2 L. Blood pressure relatively low but asymptomatic. No significant improvement in renal function, Hypokalemia and metabolic alkalosis noted. --continue Bumex to 2 mg IV daily, aim for net negative slightly, will consider changing to po depending on response. --Continue to monitor renal function and electrolytes. Admission and Anticipated Discharge Date Admission Date: March 27, 2023 Preethi Mckeon was seen and evaluated this morning. She reports overall feeling well, denies shortness of breath. Blood pressure relatively low but asymptomatic. Responding to current dose of diuretics, slightly net negative, received Bumex 2 mg iv this morning. Creatinine relatively stable. Review of Systems Review of Systems: Detailed review of system was otherwise unremarkable. Physical Exam Constitutional: WD/WN, vitals as above no acute distress Eyes: + anicteric sclerae Neck: normal visual inspection Respiratory: no respiratory distress Auscultation: lungs clear to auscultation bilaterally; no crackles and no wheezes Cardiovascular: Rate/Rhythm: regular rate and regular rhythm Heart Sounds: normal S1 and normal S2 Extremities: no edema Neurologic: no focal motor deficits and not confused Psychiatric: Orientation: alert and oriented x 3 Results & Data Vital Signs (Past 12 Hours) Vital Signs Temp Pulse Resp BP BP Pulse Ox O2 Del Method 04/05/23 10:18 Room Air 04/05/23 07:43 36.3 C L 61 18 94/57 L 99 Room Air 04/05/23 07:12 65 16 92 Room Air 04/05/23 04:18 36.9 C 63 17 93/57 L 92 Room Air 04/04/23 23:25 37.0 C 61 16 95/54 L 96 Room Air PG Care Time/CCT Total # of Minutes Spent Total Time Spent with Patient: Total time spent is greater than 50% in coordination of care (as documented) at patient's floor/unit and/or counseling patient: Coding Level of Care Code 24001 SUB INP/OBS CARE 2/35MIN Diagnoses Acute kidney injury superimposed on CKD N17.9; N18.9 Hypokalemia E87.6 Cardiorenal syndrome with renal failure, stage 1-4 or unspecified chronic kidney disease, with heart failure I13.0 Heart failure presence: with heart failure Hypertensive chronic kidney disease stage: stage 1-4 or unspecified chronic kidney disease CKD (chronic kidney disease) stage 4, GFR 15-29 ml/min N18.4 Pleural effusion J90 Anemia, unspecified D64.9 (3) Cardiorenal syndrome Heart failure presence: with heart failure Hypertensive chronic kidney disease stage: stage 1-4 or unspecified chronic kidney disease Qualified Code(s): I13.0 - Hypertensive heart and chronic kidney disease with heart failure and stage 1 through stage 4 chronic kidney disease, or unspecified chronic kidney disease
--- NOTE | 2023-04-05 11:34 | Cardiology Progress Note ---
Date of Service April 05, 2023 Assessment & Plan (1) CHF (congestive heart failure): (2) CKD (chronic kidney disease): (3) Paroxysmal ventricular tachycardia: (4) Paroxysmal atrial fibrillation: Plan 1. Congestive heart failure: I am not sure how severe her heart failure is, in the past she has significant left ventricular dysfunction however her ejection fraction yesterday (although on dobutamine) appears essentially normal. I had hoped for an improvement following biventricular pacing and I think we have seen that. I do not think we can explain all of her difficulties of heart failure and in fact I would be cautious about too much diuresis. I believe she can go home today and will need close outpatient follow-up. 2. Chronic kidney disease: I do not know if the majority of her kidney disease is due to low cardiac output, although it has improved during this hospitalization. Perhaps dobutamine helped, but I cannot explain all of her ejection fraction recovery on dobutamine, most of that I believe was on biventricular pacing. 3. Paroxysmal ventricular tachycardia: This has been stable on amiodarone, but I think we need to continue that. That may be interfering with her appetite but she is on a normal dose of 200 mg daily and did have a lot of difficulty with ventricular arrhythmias before starting it. 4. Atrial fibrillation: I did not interrogate her device this admission, but she does not seem to have atrial fibrillation here. I would recommend the following medications on discharge from the cardiovascular standpoint: Amiodarone 200 mg daily, atorvastatin 40 mg daily, Eliquis 5 mg twice a day, carvedilol 25 mg twice a day, nifedipine 90 mg daily, potassium and magnesium at current doses. We should probably continue to hold lisinopril. I am not sure what dose of Bumex we should send her home on. Perhaps 2 mg daily. I am going to have her come in for follow-up in our heart failure area around so we can adjust from there. Admission and Anticipated Discharge Date Admission Date: March 27, 2023 Subjective She is feeling very well today, she is sitting at her bedside without complaints of shortness of breath or other cardiovascular symptoms. Physical Exam Physical Exam: Constitutional: Alert, cooperative and in no distress. HEENT: Unremarkable Neck: No jugular venous distention, carotid pulses are normal and equal bilaterally without bruits. Pulmonary: Slight crackles on auscultation bilaterally. Cardiac: Regular rhythm with no murmur, gallop or rub. Abdomen: Soft, nontender with normal bowel sounds. Extremities: No edema. Distal pulses intact. Neurologic: No focal findings. Gait was not tested. Skin: No rash, ecchymoses or petechiae. Results & Data Vital Signs (Past 12 Hours) Vital Signs Temp Pulse Resp BP BP Pulse Ox O2 Del Method 04/05/23 10:18 Room Air 04/05/23 07:43 36.3 C L 61 18 94/57 L 99 Room Air 04/05/23 07:12 65 16 92 Room Air 04/05/23 04:18 36.9 C 63 17 93/57 L 92 Room Air Laboratory Results Cardiac Enzymes 04/04/23 Range/Units 11:51 Lactate Dehydrogenase 119 (86-244) U/L CBC 04/04/23 04/05/23 Range/Units 11:51 07:05 WBC 4.41 L 6.37 (4.8-10.8) K/ul RBC 3.83 L 3.82 L (4.20-5.40) M/uL Hgb 9.9 L 9.9 L (12.0-16.0) g/dl Hct 32.3 L 31.0 L (37.0-47.0) % Plt Count 285 255 (130-400) K/uL Neut # (Auto) 2.80 4.09 (1.40-6.50) K/uL Lymph # (Auto) 0.98 L 1.49 (1.20-3.40) K/uL Hamilton # (Auto) 0.50 0.66 H (0.11-0.59) K/uL Eos # (Auto) 0.07 0.07 (0.00-0.50) K/uL Baso # (Auto) 0.03 0.03 (0.00-0.20) K/uL Comprehensive Metabolic Panel 04/04/23 04/05/23 Range/Units 11:51 07:05 Sodium 139 (136-145) mmol/L Potassium 3.4 L (3.5-5.1) mmol/L Chloride 96 L (98-107) mmol/L Carbon Dioxide 35 H (21-32) mmol/L BUN 38 H (6-23) mg/dl Creatinine 2.78 H (0.6-1.2) mg/dl Glucose 93 (70-99(Fasting)) mg/dl Calcium 9.4 (8.6-10.3) mg/dl Total Protein 8.2 (6.0-8.3) gm/dl Intake and Output 04/04/23 04/05/23 04/05/23 22:59 06:59 14:59 Intake Total 109.56 / 1058.68 100 / 1058.68 99.88 / 99.88 Output Total 625 / 1225 Balance 109.56 / -166.32 -525 / -166.32 99.88 / 99.88 Intake: IV 109.56 / 318.68 100 / 318.68 99.88 / 99.88 Acetaminophen 1,000 mg In 100 100 / 100 ml @ 400 mls/hr IV NOW STA Rx#: [id number] DOBUTamine / D5W 500 mg In 250 109.56 / 218.68 99.88 / 99.88 ml @ 3 MCG/KG/MIN 8.802 mls/hr IV .Q24H [facility] Rx#:[id number] Output: Urine 625 / 1225 Diagnostic Findings Telemetry: AV sequential pacing. PG Care Time/CCT Total # of Minutes Spent Total Time Spent with Patient: Total time spent is greater than 50% in coordination of care (as documented) at patient's floor/unit and/or counseling patient: Coding Level of Care Code 96670 SUB INP/OBS CARE 3/50MIN Diagnoses CHF (congestive heart failure) I50.9 CKD (chronic kidney disease) N18.9 Paroxysmal ventricular tachycardia I47.29 Paroxysmal atrial fibrillation I48.0
[2023-04-05] MEDS: carvediloL 25 MG TAB PO SCH (11:44)
--- NOTE | 2023-04-05 11:47 | Pulmonology Progress Note ---
Date of Service April 05, 2023 Assessment & Plan (1) Heart failure with reduced ejection fraction: (2) Acute respiratory failure with hypoxia: (3) CKD (chronic kidney disease) stage 4, GFR 15-29 ml/min: (4) Pleural effusion: Plan 77-year-old female with a history of asthma, ischemic cardiomyopathy, atrial fibrillation and ventricular tachycardia who is currently hospitalized due to an acute exacerbation of heart failure with a reduced ejection fraction. Pulmonary is consulted due to bilateral pleural effusions. I performed a right thoracentesis and removed 1.4 L of serosanguineous appearing fluid 04/04/2023. Patient has had increased fatigue and weight loss despite her cardiomyopathy. I am somewhat concerned of potential underlying malignancy given the appearance of the fluid. Discussed with cardiology and the patient. Repeat x-ray status post thoracentesis for revealed full reexpansion of the right lung and no residual pleural effusion. She continues to have a small left pleural effusion. Hemoglobin has remained stable. Okay to restart Eliquis from my perspective. Mammography performed earlier this year (03/04/2023) did not suggest malignancy. Colonoscopy 2019 with biopsy of then ascending polyp revealed tubular adenoma. She is also followed by neurosurgery for meningioma. Pleural fluid does not appear to be infected, but it does appear to be an exudate. Also with lymphocytic predominance on pleural effusion which is nonspecific, but can be seen malignancy. Cytology follow-up will be required to ensure no evidence of malignancy. Recommend outpatient CT chest without contrast given the patient's ongoing fatigue, weight loss and exudative effusion. Please perform ambulatory oxygen saturations while on room air to evaluate for home oxygen needs. Thank you for the consult. No further input at this time. She can follow-up with pulmonary medicine as an outpatient. Admission and Anticipated Discharge Date Admission Date: March 27, 2023 Subjective Patient seen and examined. Discussed with cardiology as well along with bedside nursing. Patient notes that her breathing has markedly improved status post right thoracentesis yesterday. She is now on room air saturating in the mid 90s. She is sitting up in a chair. She is eager to go home. She does relate that her appetite remains poor. Review of Systems Review of Systems: All systems reviewed & are unremarkable except as noted in HPI & below Physical Exam Physical Exam: Constitutional: Patient appears to be of their stated age. Patient is in no apparent distress. Patient is well-developed. Eyes: Pupils are equal round and reactive to light. Conjunctivae are normal. Anicteric sclera. Ears nose, mouth and throat: Deferred. Neck: Trachea is midline. Visual inspection is normal. Respiratory: Clear to auscultation bilaterally. No wheezes, rubs or rales. Cardiovascular: Regular rate and rhythm. No murmurs. No edema. Gastrointestinal: Normal bowel sounds, soft, nontender and nondistended. No hepatosplenomegaly noted. Musculoskeletal: No cyanosis. Patient is able to move all extremities. Strength is 5 out of 5 in the upper and lower extremities. Skin: No rashes, warm dry and intact. Neurologic: No obvious focal neurological deficits seen. Psychiatric: Alert and oriented x3 with a euthymic affect. Results & Data Results & Data Vital Signs (Past 12 Hours) Vital Signs Temp Pulse Resp BP BP Pulse Ox O2 Del Method 04/05/23 11:30 36.8 C 63 18 95/56 L 94 Room Air 04/05/23 10:18 Room Air 04/05/23 07:43 36.3 C L 61 18 94/57 L 99 Room Air 04/05/23 07:12 65 16 92 Room Air 04/05/23 04:18 36.9 C 63 17 93/57 L 92 Room Air PG Care Time/CCT Total # of Minutes Spent Total Time Spent with Patient: Total time spent is greater than 50% in coordination of care (as documented) at patient's floor/unit and/or counseling patient: Coding Level of Care Code 06472 SUB INP/OBS CARE 2/35MIN Diagnoses Heart failure with reduced ejection fraction I50.20 Acute respiratory failure with hypoxia J96.01 CKD (chronic kidney disease) stage 4, GFR 15-29 ml/min N18.4 Pleural effusion J90
[2023-04-05] MEDS: DOBUTamine / D5W 500 MG/250 ML BAG IV SCH (11:49)
--- NOTE | 2023-04-05 19:24 | Discharge Summary ---
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 The patient has multiple admissions over the past 3 months for recurrent CHF exacerbations. In the ED today she was noted to be hypoxic with SpO2 in the low 90's on RA but otherwise stable. Labs were significant for a lymphocyte count of 1.17, stable cr of 3.09 (recovering from JULIO on last admission), and negative high sen trop. Chest xray was read as "1. Increase in moderate bilateral pleural effusions with associated bibasilar opacities. 2. Cardiomegaly with mild interstitial pulmonary edema.". Prior to admission the patient was given 2mg IV Bumex. Per chart review, the patient was recently seen in the Nephrology Clinic with Dr. Stevenson on 03/23/23. Per his note, the patient is still recovering from an JULIO during her last admission at [facility] from 02/10-02/12. He instructed her to increase her PO bumex from 1mg PO daily to 2mg PO daily x 2 days for increased swelling. He also noted that she is scheduled to see heme/onc next week for UEP with two monoclonal bands and low kappa/lambda ratio. Per her last Heart Failure clinic note on 02/19, her dry weight is supposed to be 225 lbs. At the time of the exam the patient was sitting in no acute distress. I attempted to wean her to RA but she desaturated into the 80's, she remained stable on 2L NC. She states that she has been experiencing increased SOB, non- productive cough, chest tightness similar to her normal asthma symptoms, and increased LE swelling over the past week. She saw her PCP who obtained a chest xray which showed small BL pleural effusions and underlying atelectasis. Her PCP prescribed a 7 day course of Doxycycline which she has been taking as prescribed. Today is day #7, her symptoms have not improved with Doxycyline. She confirms that she increased her PO Bumex from 1gm daily to 2 mg daily over the past 48 hours but denies a significant increase in urine output. She has been sticking to her low sodium diet with fluid restriction as recommended. She has been using her breathing treatments at home which provide temporary relief. She feels like her breathing has improved a little since being placed on O2 in the ED. She confirms that she is still a Full Code. Please refer to Dr. Alaniz's attestation for any changes to the treatment plan Principal Diagnosis Acute hypoxic respiratory failure multifactorial CHF exacerbation diastolic type Acute kidney injury secondary to cardiorenal syndrome Pleural effusion serosanguineous Discharge Exam Constitutional: Patient appears to be of their stated age. Patient is in no apparent distress. Patient is well-developed. Eyes: Pupils are equal round and reactive to light. Conjunctivae are normal. Anicteric sclera. Ears nose, mouth and throat: Deferred. Neck: Trachea is midline. Visual inspection is normal. Respiratory: Bilateral crackles with diminishment at the lung bases. Cardiovascular: Regular rate and rhythm. No murmurs. No edema. Gastrointestinal: Normal bowel sounds, soft, nontender and nondistended. No hepatosplenomegaly noted. Musculoskeletal: No cyanosis. Patient is able to move all extremities. Strength is 5 out of 5 in the upper and lower extremities. Skin: No rashes, warm dry and intact. Neurologic: No obvious focal neurological deficits seen. Psychiatric: Alert and oriented x3 with a euthymic affect. Constitutional not in distress Eyes PERRL, conjunctivae normal, anicteric sclerae ENMT external ear and nose normal, oropharynx normal Neck trachea midline, no thyromegaly Respiratory normal respiratory effort (diminished breath sounds at the bases bilaterally) Cardiovascular Rate/Rhythm: regular rate and regular rhythm Extremities: no edema Gastrointestinal (Abdomen) normal bowel sounds, soft, nontender, no hepatosplenomegaly Neurologic Speech / Cognition: normal speech and normal cognition Discharge Data Allergies Allergy/AdvReac Type Severity Reaction Status Date / Time codeine Allergy Severe Anaphylaxis Verified 03/27/23 15:24 furosemide Allergy Severe SEVERE Verified 03/27/23 15:24 RASH, PT REPORTS A CROSS ALLERGY WITH SULFA celecoxib [From Celebrex] Allergy Intermediate RASH Verified 03/27/23 15:24 cephalexin [From Keflex] Allergy Intermediate Rash Verified 03/27/23 15:24 hydrocodone Allergy Intermediate Rash Verified 03/27/23 15:24 Iodinated Contrast Media Allergy Intermediate RASH Verified 03/27/23 15:24 nickel Allergy Intermediate Rash Verified 03/27/23 15:24 oxycodone Allergy Intermediate Rash Verified 03/27/23 15:24 Sulfa (Sulfonamide Allergy Intermediate RASH TO Verified 03/27/23 15:24 Antibiotics) SULFA DRUGS tetracycline Allergy Intermediate RASH Verified 03/27/23 15:24 capsaicin AdvReac Intermediate CREATINE Verified 03/27/23 15:24 ELEVATION diclofenac AdvReac Intermediate CREATINE Verified 03/27/23 15:24 ELEVATION propylene glycol AdvReac Intermediate CREATINE Verified 03/27/23 15:24 ELEVATION "PREP WITH BLUE DYE" Allergy Intermediate Rash Uncoded 03/27/23 15:24 Consultations 03/27/23 15:08 ED Decision to Admit Stat 03/29/23 08:46 Consult Nephrology Routine 04/02/23 15:41 Consult Pulmonology Routine 04/02/23 17:35 Consult Cardiology Routine Ordered Studies 04/04/23 10:11 US point of care ultrasound Urgent Hospital Course (1) Hypoxia: Hypoxia more possibly multifactorial resolved The patient presents to the hospital with hypoxia, most likely multifactorial including bilateral pleural effusions, asthma exacerbation (the admission notes that patient had wheezing on exam), volume overload and CHF exacerbation (possible diastolic type given patient had a preserved ejection fraction according to echocardiogram done during this admission) as well as history of advanced chronic kidney disease stage IV , patient consulted with nephrology, started on Bumex, patient remained hypoxic, discussed with cardiology, cardiology transferred the patient to PCU and the patient and patient was starte d on dobutamine drip, echocardiogram showed patient ejection fraction has improved after ICD upgrade, patient is status post thoracentesis about 1 L of bloody pleural effusion was drained (patient was taking apixaban for atrial fibrillation) currently patient is room air, I discussed with cardiology, patient can be discharged home with current regimen, patient will be followed by heart failure clinic, I discussed with pulmonary, they will follow on pleural fluid studies in their office (2) CHF exacerbation: As mentioned above history of chronic systolic heart failure, patient had ICD upgrade, apparently current ejection fraction within normal limits according to cardiology note, however patient dobutamine (3) Asthma: No wheezing on exam continue current treatment (4) Chest tightness: - Has resolved (5) Type II diabetes mellitus: -Hold Trulicity -Monitor BSG ACHS, goal is 110-140, continue Trulicity at home, according to the patient blood sugar is fairly managed - (6) CKD (chronic kidney disease): Hand Slitter consulted Acute on chronic kidney disease due to cardiorenal syndrome, current creatinine is on the baseline -Monitor daily renal function, daily weights, avoid nephrotoxic agents (7) Psoriasis: -Patient has been taking 5 mg Prednisone HS for years for her Psoriasis with arthritis (8) Hypothyroidism: -Continue levothyroxine (9) Paroxysmal atrial fibrillation: -Stable; S/P ICD placement/ICD upgrade -Continue Carvedilol, amiodarone, and Eliquis was hold for thoracentesis (10) Acute respiratory failure with hypoxia: Total Time Total Time Spent Total Time Spent (In Minutes): 45 minutes Discharge Plan Discharge Items Patient Disposition: Home - Self-Care Reason For Visit: SOB, HYPOXIA Discharge Diagnosis: Acute hypoxia, CHF exacerbation diastolic type, volume overload Activity: Resume your previous activity Lifting: Gradually increase as tolerated Bathing: No limitations Sexual Activity: When tolerated Exercise/Sports: Gradually increase as tolerated Driving/Machine Use: No limitations Weightbearing: Full weightbearing Non-emergency contact: Primary Care Provider Call non-emergency contact if: you have any medication questions and your pain is not controlled Follow-up/Referrals: David Mitchell MD [Physician] - 04/07/23 Jarocho Herrera MD [Physician] - Jigna Jovel DO [Primary Care Provider] - 04/15/23 8:30 am (APPT: 04/15/23 8:30am Radu PINA) Diet: Carb Consistent or DM2 and Heart Healthy Addtl Attending Provider Instructions: Please follow-up with the cook frozen dessert in coming week please follow-up with pulmonology given the buildup of fluid in your lungs and part of the tests are still pending Pending Studies at Discharge: No Stand-Alone Forms: My [employer], Smoking Cessation Medications and DC Order Prescriptions: Continued prednisone 5 mg tablet 5 mg PO HS Qty: 90 3RF nifedipine 90 mg tablet extended release 90 mg PO HS Qty: 90 3RF duloxetine [Cymbalta] 60 mg capsule,delayed release(DR/EC) 60 mg PO QAM Qty: 90 3RF levothyroxine 137 mcg capsule 137 mcg PO DAILY Qty: 90 3RF azelastine 137 mcg (0.1 %) aerosol,spray 2 spray INTRANASAL DAILY PRN (Reason: ALLERGIES) Qty: 30 0RF (DME) Accu-Chek Garima Plus test strp Strip See Rx Instructions .ROUTE .MEDSUPPLY Qty: 100 3RF Rx Instructions: Check blood sugars once PRN potassium chloride [Klor-Con M20] 20 mEq tablet,ER particles/crystals 20 meq PO QAM Qty: 90 3RF Eliquis 5 mg tablet 5 mg PO BID Qty: 180 3RF montelukast [Singulair] 10 mg tablet 10 mg PO DAILY Qty: 90 3RF (DME) Hospital Bed Misc See Rx Instructions .Route Qty: 1 0RF Rx Instructions: Semi-electric hospital bed with mattress and side rails levalbuterol HCl 0.63 mg/3 mL solution for nebulization 0.63 mg INHALATION Q4H PRN (Reason: Cough) Qty: 90 0RF lansoprazole 30 mg capsule,delayed release(DR/EC) 30 mg PO DAILY Qty: 90 3RF calcitriol 0.5 mcg capsule 0.25 mcg PO DAILY (DME) blood-glucose meter [Accu-Chek Garima Plus Meter] [facility] [place] [facility] See Rx Instructions .ROUTE .MEDSUPPLY Rx Instructions: Used to check blood sugars once PRN nitroglycerin [Nitro-Dur] 0.4 mg/hr patch 24 hour 1 patch TRANSDERMAL QAM Qty: 90 3RF Rx Instructions: remove after 12 hours cholestyramine (with sugar) 4 gram powder 4 ea PO DIRECTED PRN (Reason: Diarrhea) Trulicity 1.5 mg/0.5 mL pen injector 1.5 mg subcut ONCE Qty: 6 3RF Rx Instructions: Inject 1.5 mg into the abdomen once weekly. albuterol sulfate 90 mcg/actuation HFA aerosol inhaler 2 puff inhalation Q6H PRN (Reason: shortness of breath or wheezing) Qty: 8.5 2RF budesonide-formoterol [Symbicort] 80-4.5 mcg/actuation HFA aerosol inhaler 2 puff inhalation BID Qty: 3 3RF amiodarone 200 mg tablet 200 mg PO DAILY Qty: 30 2RF cetirizine [Zyrtec] 10 mg Tablet 10 mg PO HS betamethasone valerate 0.1 % cream 1 applic TOPICAL UD PRN (Reason: PSORIASIS ) Rx Instructions: Apply to areas of the arms twice daily for up to 2 weeks as needed for flaring. omega 6-key-jml-fish oil [Fish Oil] 1,000 mg (120 mg-180 mg) Capsule 1,000 mg PO BID magnesium oxide 400 mg magnesium Tablet 400 mg PO BID acetaminophen [Tylenol Arthritis Pain] 650 mg Tablet Extended Release 1,300 mg PO BID carvedilol 25 mg tablet 25 mg PO BID Qty: 60 1RF Rx Instructions: must administer with a meal/food atorvastatin 40 mg tablet 40 mg PO HS Changed bumetanide 2 mg tablet 2 mg PO DAILY Qty: 30 0RF Discontinued doxycycline monohydrate 100 mg capsule 100 mg PO BID 7 Days Qty: 14 0RF Rx Instructions: STARTED 03/20/23 FOR 7 DAYS lisinopril 10 mg Tablet 10 mg PO QAM Qty: 30 0RF Hold Instructions: JULIO Discharge Orders: Discharge Order (Routine); Ordered 04/05/23 Ordered By: Willie Martinez Admission Data Admit Date/Time: 03/27/23 15:41 Attending Provider: Willie Martinez Admit Provider: Hunter Alaniz Primary Care Provider: Jigna Jovel Other Providers: Hunter Alaniz; Junaid Stevenson; Rizwan Mcadams; Padilla Nunes; Harvey Alaniz; Ky Martins; Crow Jimenez; David Mitchell; Santino De Jesus Jr; Jarocho Herrera; Joann Sims; Elis Beltran; Lukasz Vergara; Lukasz Schilling; Irineo Penaloza; Chaya Guzmán; Lisa Spicer; Gavin Borrego; Deejay Villanueva; Crow Rojas V.; Pawel Solano Other Interventions: Discharge Summary Assessment (RN) Last Done: 04/05/23 13:05 Coding Level of Care Code 01703 INP/OBS DISCH >30 MIN Diagnoses Hypoxia R09.02 CHF exacerbation I50.9 Asthma J45.909 Chest tightness R07.89 Type 2 diabetes mellitus with stage 4 chronic kidney disease, without long-term current use of insulin E11.22; N18.4 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 fdc insulin use: without attorney general use 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 complication status: with kidney complications 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 complication detail: with chronic kidney disease Chronic kidney disease stage: stage 4 (severe) CKD (chronic kidney disease) N18.9 Psoriasis L40.9 Hypothyroidism E03.9 Paroxysmal atrial fibrillation I48.0 Acute respiratory failure with hypoxia J96.01
--- NOTE | 2023-04-05 20:08 | Electrocardiogram Report ---
Test Reason : Blood Pressure : / mmHG Vent. Rate : 061 BPM Atrial Rate : 061 BPM P-R Int : 266 ms QRS Dur : 122 ms QT Int : 560 ms P-R-T Axes : -06 -07 230 degrees QTc Int : 563 ms Poor data quality, interpretation may be adversely affected AV dual-paced rhythm Abnormal ECG When compared with ECG of 27-MAR-2023 13:03, Vent. rate has decreased BY 7 BPM Confirmed by David Mitchell ([id number]) on 04/05/2023 8:08:05 PM Referred By: REFERRED SELF Confirmed By:David Mitchell
== END 2023-04-05 15:13 | disposition home or self-care (01) | DRG 291 ==
LOC: ED 12:52 → SUATTDRO 15:41 → 2W 15:41 → 2E 04-03 13:29

== ENCOUNTER 2023-04-15 16:53 | Inpatient (IN) ==
--- NOTE | 2023-04-15 17:07 | ED Triage Note ---
Date of Service April 15, 2023 History of Present Illness This patient was briefly evaluated while in triage. An abbreviated physical exam was performed. This patient is a 77-year-old Female who presents to the ED for evaluation of abnormal testing results. Had a follow up today with PCP. Had xray earlier and told pleural effusion is back. Notes a small amount of dyspnea. Notes recently drain of 1.5 liters from pleural effusion about 1.5 weeks ago. Effusion is on the right side. Physical Exam GENERAL: 77 year old female. In no acute distress. SKIN: No lesions or rashes. HEART: Regular rate and rhythm. LUNGS: Clear to auscultation. Mild diminished sound on the R. NEURO: Alert and oriented. No deficits. MUSCULOSKELETAL: No deformities to inspection of the extremities. PSYCH: Patient is pleasant and answers all questions appropriately. Initial orders for labs and / or imaging were placed and patient was placed in the waiting area until a bed is available. Please see further documentation for the full ED course.
[2023-04-15 18:09] LABS: Basophils # (auto) 0.03 K/uL (0.00-0.20); Basophils % (auto) 0.5 %; Eosinophils # (auto) 0.21 K/uL (0.00-0.50); Eosinophils % (auto) 3.4 %; Hematocrit (blood only) 30.2 % (37.0-47.0); Hemoglobin 9.6 g/dl (12.0-16.0); Immature Granulocytes # (auto) 0.02 K/uL (0.01-0.20); Immature Granulocytes % (auto) 0.3 %; Lymphocytes # (auto) 1.09 K/uL (1.20-3.40); Lymphocytes % (auto) 17.5 %; Mean Corpuscular Hemoglobin 26.8 pg (25.0-34.0); Mean Corpuscular Hgb Conc 31.8 g/dL (32.0-36.0); Mean Corpuscular Volume 84.4 fL (80.0-100.0); Mean Platelet Volume 10.9 fL (9.4-12.4); Monocytes % (auto) 9.6 %; Neutrophils # (auto) 4.27 K/uL (1.40-6.50); Neutrophils % (auto) 68.7 %; Platelet Count 322 K/uL (130-400); RDW Coefficient of Variation 22.1 % (11.5-14.5); RDW Standard Deviation 67.6 fL (36.4-46.3); Red Blood Count 3.58 M/uL (4.20-5.40); White Blood Count 6.22 K/ul (4.8-10.8)
--- NOTE | 2023-04-15 18:21 | Emergency Department Note ---
Impression & Plan Breathlessness, Chronic anticoagulation, Pleural effusion, CKD (chronic kidney disease), CHF (congestive heart failure) ED Provider Note Provider: Chas Zavala MD DATE OF SERVICE: 04/15/2023 CHIEF COMPLAINT: Breathing difficulty, abnormal x-ray HISTORY OF PRESENT ILLNESS: Patient is a 77-year-old female past medical history significant for severe CKD, cardiorenal syndrome secondary to CHF, diabetes, GERD, and A-fib presenting today stating she has noticed over the last several days increasing shortness of breath and some pressure on her chest low blood pressure of the right back. Was here about 10 days ago and had a liter and half of fluid drained from her right lung. Has been compliant with her Bumex 2 mg diuretics as well as her Eliquis therapy at home. Denies any falls or trauma. Denies significant leg swelling. States she is been avoiding significant fluid intake or salt intake and again using her diuretic. Denies fever or sick contact that she knows of. Some cough. Did have a follow-up x-ray earlier today and reported to have some increased fluid with this. States he was going to talk with the heart failure clinic tomorrow as her breathing seemed to worsen some but given this finding came here tonight. PAST MEDICAL HISTORY: As noted above MEDICATIONS: Reviewed home medication list. SOCIAL HISTORY: Denies smoking PHYSICAL EXAM: GENERAL: alert and oriented in no acute distress initially seated in chair Head: normocephalic and atraumatic EYES: No injection, discharge or icterus. NECK: Trachea midline. ENT: Mucous membranes pink and moist. LUNGS: Airway patent. No retractions. Breath sounds clear with diminished bases HEART: Regular rate and rhythm. No chest wall tenderness with left upper chest AICD in place as well as a left-sided nitroglycerin patch she wears chronically. ABDOMEN: Soft and non-tender, without guarding or rebound. SKIN: Acyanotic, warm, dry, without rashes EXTREMITIES: Compression stockings in place with mild bilateral lower extremity edema. NEUROLOGICAL: No focal deficits. No aphasia. No facial droop or slurred speech. EK bpm AV paced rhythm without PVC or PAC. No acute ST segment elevation with some inferior T wave changes. QTc 472. Compared to previous from April 04 of this year similar although less baseline artifact noted. CONTINUOUS CARDIAC MONITORING: was ordered and showed a heart rate of 60s bpm in AV paced rhythm Patient's laboratory studies and imaging reviewed. Differential includes Reactive airway disease, pneumonia, pneumothorax, COPD, CHF, infections, cardiac ischemia, pulmonary embolism, musculoskeletal, gastrointestinal, as well as other pathologies. IMPRESSION/MEDICAL DECISION MAKING: Patient no significant hypoxic at rest. Significant history and reviewed heart failure visit on the of this month at which time things were stable but also discharge summary from April 05 where she was hospitalized here and had a thoracentesis with 1-1/2 L of bloody pleural effusion drained from the right lung. No trauma history. Cytology was negative for malignancy from this fluid on review of records. States compliance with diuretics as well as anticoagulation. Low suspicion for VTE given her anticoagulated status. Has had a bit of worsening shortness of breath and chest pressure and had an outpatient chest x-ray obtained earlier today. Reviewed this x-ray myself with evidence of bilateral effusions. In comparison previous x-rays over the course of this past month seems to have had some increased recurrence of right pleural effusion and although likely not quite as severe as before her recent thoracentesis. No trauma history. No fevers reported. CKD/cardiorenal syndrome complicate her picture with diuresis. EKG and labs completed. EKG similar to previous paced. Blood work here without significant leukocytosis and stable moderate anemia. Doubt any significant blood loss. Patient again with likely some recurrence of CHF and pulmonary congestion and pleural effusions. Doubt this represents pneumonia at this time. Again doubt VTE given her anticoagulated status and reported compliance. Chemistries without significant potassium or sodium deviation from normal. Chronic CKD appeared BUN not severely elevated in comparison to past. No significant LFT abnormalities noted. Troponin returns at 9.3 today which is reassuring in comparison to previous. Doubt this represents acute ACS/GA given her ongoing nature of symptoms bleed again this is likely more related to fluid overload. Reviewed with the patient the findings and discussed with her options. Patient noted to have some lower blood pressure but patient and review of previous vitals from last encounter seems to trend in the lower side. Blood pressure on reevaluation in room C7 is improving 127/70. Again I doubt sepsis. Discussed with her we could possibly try a small burst of diuretics to see if this would help her symptoms versus more monitored therapy here given her CKD and see how effective this would be and if she would need an repeat thoracentesis. In shared decision-making as she lives alone and is having symptomatic shortness of breath wished to stay. Will give some additional IV diuresis with Bumex tonight and see if this has some effect or if again she will need further pulmonary consultation for possible thoracentesis in the morning. Took her Eliquis this morning. DIAGNOSIS: Acute CHF exacerbation, pleural effusion, shortness of breath, CKD DISPOSITION: Hospitalist will evaluate Patient was agreeable with this plan. Past Med/Surg History Medical History CKD (chronic kidney disease) stage 4, GFR 15-29 ml/min baseline creatinine 2.0-2.2 range; nephrology (Dr. Stevenson) monitoring Pulmonary edema Cardiomyopathy Non-ST elevation (NSTEMI) myocardial infarction Ventricular tachycardia Tachy-lina syndrome Elevated troponin Atrial fibrillation with RVR Sialoadenitis, unspecified Allergic rhinitis SI joint arthritis Abnormal PFT Mild persistent asthma Active asthma inhaler daily/prn, nebulizer prn Sinus congestion Chronic dyspnea On anticoagulant therapy eliquis bid Paroxysmal atrial fibrillation follows with Dr. 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 Ken)- under surveillance/stable/no indication for surgical intervention Psoriatic arthropathy GERD (gastroesophageal reflux disease) CONTROLLED WITH MEDS Osteoarthritis, knee Surgical History History of laparoscopy (~06/2020) History of colectomy (~06/2020) History of total left hip arthroplasty History of total hip arthroplasty History of dilatation and curettage History of tooth extraction History of tonsillectomy and adenoidectomy History of cardiac cath History of arthroscopy Status post total replacement of left shoulder History of colonoscopy History of esophagogastroduodenoscopy (EGD) History of total abdominal hysterectomy and bilateral salpingo-oophorectomy History of arthroscopy of right shoulder History of total knee arthroplasty History of foot surgery History of cholecystectomy History of cataract extraction History of lumbar fusion H/O thyroidectomy Family History Mother Arthritis Hypertension Father Lung cancer Hypertension Family/Other Family hx of colon cancer Unknown Allergies Breast cancer Hypertension Brother Cancer Heart disease Aunt Colorectal cancer Other No family history of adverse response to anesthesia No family history of bleeding disorder Denies family history of Ovarian cancer Prostate cancer Diabetes Hearing loss Myocardial infarction Stroke Asthma Social History Smoking Status: Never smoker Tobacco Type: Cigarettes Age Quit Using Tobacco: 26; Second Hand Exposure: No; Do You Dip or Chew Tobacco: No; Hx Alcohol Use: No Hx Substance Use: No Preferred Language: Nepali Communication Ability: Effective Communication Ability Comment: DEAF RIGHT EAR Visual Impairment: Limited Hearing Ability: Hard of Hearing 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: No Beliefs That Will Affect Care: None marital status: / Current Living Situation: Family Current Living Situation Comment: [place] current occupational status: retired current occupation: Retired How many Children do You have: 0 Feels Safe at Home: Yes Childhood Exposure to Second-Hand Smoke: Yes caffeine: Yes Dental Care, Regularly: Yes Physical Activity Frequency: Does not Exercise Physical Activity Frequency Comment: Hip problems Seatbelt Use: always Sunscreen Use: No Assistive Devices: Cane, Nebulizer and Walker Allergies Allergies Allergy/AdvReac Type Severity Reaction Status Date / Time codeine Allergy Severe Anaphylaxis Verified 04/15/23 18:40 furosemide Allergy Severe SEVERE Verified 04/15/23 18:40 RASH, PT REPORTS A CROSS ALLERGY WITH SULFA celecoxib [From Celebrex] Allergy Intermediate RASH Verified 04/15/23 18:40 cephalexin [From Keflex] Allergy Intermediate Rash Verified 04/15/23 18:40 hydrocodone Allergy Intermediate Rash Verified 04/15/23 18:40 Iodinated Contrast Media Allergy Intermediate RASH Verified 04/15/23 18:40 nickel Allergy Intermediate Rash Verified 04/15/23 18:40 oxycodone Allergy Intermediate Rash Verified 04/15/23 18:40 Sulfa (Sulfonamide Allergy Intermediate RASH TO Verified 04/15/23 18:40 Antibiotics) SULFA DRUGS tetracycline Allergy Intermediate RASH Verified 04/15/23 18:40 capsaicin AdvReac Intermediate CREATINE Verified 04/15/23 18:40 ELEVATION diclofenac AdvReac Intermediate CREATINE Verified 04/15/23 18:40 ELEVATION propylene glycol AdvReac Intermediate CREATINE Verified 04/15/23 18:40 ELEVATION "PREP WITH BLUE DYE" Allergy Intermediate Rash Uncoded 04/15/23 18:40 Home Meds Home Medications Medication Instructions Recorded Confirmed magnesium oxide 400 mg PO BID 07/26/18 04/15/23 omega [id number] oil 1,000 mg 1,000 mg PO BID 07/26/18 04/15/23 (120 mg-180 mg) capsule (Fish Oil) cetirizine 10 mg tablet (Zyrtec) 10 mg PO HS 08/22/19 04/15/23 betamethasone valerate 0.1 % 1 applic topical UD PRN PSORIASIS 11/30/19 04/15/23 topical cream blood-glucose meter (Accu-Chek 02/12/21 04/15/23 Garima Plus Meter) cholestyramine (with sugar) 4 gram 4 ea PO DIRECTED PRN Diarrhea 08/26/22 04/15/23 oral powder acetaminophen 650 mg 1,300 mg PO BID 01/20/23 04/15/23 tablet,extended release (Tylenol Arthritis Pain) calcitriol 0.5 mcg capsule 0.25 mcg PO DAILY 03/23/23 04/15/23 dulaglutide 1.5 mg/0.5 mL 1.5 mg subcut WK 04/15/23 04/15/23 subcutaneous pen injector (Trulicity) prednisone 5 mg tablet 5 mg PO QAM 04/15/23 04/15/23 Previous Rx's Medication Instructions Recorded nitroglycerin 0.4 mg/hr 1 patch transdermal QAM #90 ea 03/20/22 transdermal 24 hour patch (Nitro-Dur) nifedipine 90 mg tablet,extended 90 mg PO HS #90 tabs 04/14/22 release duloxetine 60 mg capsule,delayed 60 mg PO QAM #90 caps 05/12/22 release (Cymbalta) levothyroxine 137 mcg capsule 137 mcg PO DAILY #90 caps 08/27/22 albuterol sulfate 90 mcg/actuation 2 puff inhalation Q6H PRN 09/30/22 aerosol inhaler shortness of breath or wheezing #8.5 grams budesonide-formoterol HFA 80 2 puff inhalation BID #3 Inhalers 09/30/22 mcg-4.5 mcg/actuation aerosol inhaler (Symbicort) azelastine 137 mcg (0.1 %) nasal 2 spray intranasal DAILY PRN 11/17/22 spray aerosol ALLERGIES #30 mL blood sugar diagnostic (Accu-Chek #100 ea 12/19/22 Garima Plus test strips) potassium chloride 20 mEq 20 meq PO QAM #90 tabs 01/09/23 tablet,extended release(part/cryst) (Klor-Con M) apixaban 5 mg tablet (Eliquis) 5 mg PO BID #180 tabs 01/15/23 montelukast 10 mg tablet 10 mg PO DAILY #90 tabs 01/19/23 (Singulair) carvedilol 25 mg tablet 25 mg PO BID #60 tabs 01/31/23 lansoprazole 30 mg capsule,delayed 30 mg PO DAILY #90 caps 02/04/23 release Hospital Bed Homecare (Hospital #1 ea 03/03/23 Bed) amiodarone 200 mg tablet 200 mg PO DAILY #30 tabs 03/06/23 bumetanide 2 mg tablet 2 mg PO DAILY #30 tabs 04/05/23 atorvastatin 40 mg tablet 40 mg PO HS #90 tabs 04/15/23 levalbuterol HCl 0.63 mg/3 mL 0.63 mg (3 mL) inhalation Q4H PRN 04/15/23 solution for nebulization Cough #90 mL mirtazapine 7.5 mg tablet 7.5 mg PO DAILY #30 tabs 04/15/23 Results & Data (ED) Vital Signs Vital Signs - 24 hr 04/15/23 17:07 04/15/23 18:50 04/15/23 19:29 Temperature 36.5 C Temperature Source Temporal Artery Scan Pulse Rate 63 70 Pulse Rate [Apical] 65 Respiratory Rate 20 20 Respiratory Effort / Characteristics Non-Labored Spontaneous Respiratory Depth Normal Blood Pressure 94/61 L Blood Pressure [Right Arm] 131/74 Blood Pressure Mean 72 Blood Pressure Mean [Right Arm] 93 Pulse Oximetry 97 94 Oxygen Delivery Method Room Air Room Air Sepsis Recent Fever Within 48 Hours No Sepsis New/Unexplained Change in Mental Status No Sepsis Action Taken by Nursing No Action Required 04/15/23 19:29 04/15/23 19:29 Temperature Temperature Source Pulse Rate Pulse Rate [Apical] Respiratory Rate Respiratory Effort / Characteristics Respiratory Depth Blood Pressure Blood Pressure [Right Arm] Blood Pressure Mean Blood Pressure Mean [Right Arm] Pulse Oximetry 94 Oxygen Delivery Method Room Air Room Air Sepsis Recent Fever Within 48 Hours Sepsis New/Unexplained Change in Mental Status Sepsis Action Taken by Nursing Laboratory Data 04/15/23 17:49 04/15/23 17:49 Lab Results 04/15/23 Range/Units 17:49 WBC 6.22 (4.8-10.8) K/ul RBC 3.58 L (4.20-5.40) M/uL Hgb 9.6 L (12.0-16.0) g/dl Hct 30.2 L (37.0-47.0) % MCV 84.4 (80.0-100.0) fL MCH 26.8 (25.0-34.0) pg MCHC 31.8 L (32.0-36.0) g/dL RDW Std Deviation 67.6 H (36.4-46.3) fL RDW Coeff of Amrita 22.1 H (11.5-14.5) % Plt Count 322 (130-400) K/uL MPV 10.9 (9.4-12.4) fL Immature Gran % (Auto) 0.3 % Neut % (Auto) 68.7 % Lymph % (Auto) 17.5 % Jennings % (Auto) 9.6 % Eos % (Auto) 3.4 % Baso % (Auto) 0.5 % Neut # (Auto) 4.27 (1.40-6.50) K/uL Lymph # (Auto) 1.09 L (1.20-3.40) K/uL Jennings # (Auto) 0.60 H (0.11-0.59) K/uL Eos # (Auto) 0.21 (0.00-0.50) K/uL Baso # (Auto) 0.03 (0.00-0.20) K/uL Immature Gran # (Auto) 0.02 (0.01-0.20) K/uL Anisocytosis Present PT 13.0 H (9.0-12.0) Seconds INR 1.2 H (0.9-1.1) APTT 30.0 (21.0-31.0) Seconds PTT Ratio 1.1 Sodium 142 (136-145) mmol/L Potassium 4.1 (3.5-5.1) mmol/L Chloride 104 (98-107) mmol/L Carbon Dioxide 29 (21-32) mmol/L Anion Gap 9 (3-11) BUN 25 H (6-23) mg/dl Creatinine 2.98 H (0.6-1.2) mg/dl Est Cr Clr Drug Dosing Not Reportable Est GFR ( Amer) 16.9 ml/min Est GFR (Non-Af Amer) 14.6 ml/min BUN/Creatinine Ratio 8.4 L (10-20) Glucose 104 H (70-99(Fasting)) mg/dl Calcium 9.1 (8.6-10.3) mg/dl Total Bilirubin 0.5 (0.2-1.0) mg/dl AST 17 (13-39) U/L ALT 15 (7-52) U/L Alkaline Phosphatase 74 (34-104) U/L Troponin I High Sens 9.3 (0-14) pg/ml Total Protein 8.3 (6.0-8.3) gm/dl Albumin 3.3 L (3.4-5.0) gm/dl Globulin 5.0 H (2.5-4.0) gm/dl Albumin/Globulin Ratio 0.7 L (0.9-2) Administered Medications Discontinued Medications Bumetanide 1 mg/ Syringe 4 mls @ 4 mls/min IV ONE ONE Stop: 04/15/23 18:46 Last Admin: 04/15/23 19:34 Dose: 4 mls/min Documented By: MAYE Bumetanide 1 mg/ Syringe 4 mls @ 4 mls/min IV ONE ONE Stop: 04/15/23 20:14 Last Admin: 04/15/23 20:47 Dose: 4 mls/min Documented By: MAYE Discharge Plan Visit Data Chief Complaint: Shortness of Breath/Dyspnea Stated Complaint: REF BY FOR XRAY ON ?BACK ED Provider: Chas Zavala Discharge Problem: Breathlessness, Chronic anticoagulation, Pleural effusion, CKD (chronic kidney disease), CHF (congestive heart failure) Patient Disposition: Being Evaluated by Hospitalist Discharge Instructions Interventions: ED Discharge Assessment Last Done: 04/15/23 22:52 Discharge Problem: CKD (chronic kidney disease) Qualifiers: Chronic kidney disease stage: stage 4 (severe) Qualified Code(s): N18.4 - Chronic kidney disease, stage 4 (severe) CHF (congestive heart failure) Qualifiers: Heart failure chronicity: acute on chronic
[2023-04-15 18:25] LABS: Alanine Aminotransferase 15 U/L (7-52); Albumin Globulin Ratio 0.7 (0.9-2); Albumin Level 3.3 gm/dl (3.4-5.0); Alkaline Phosphatase 74 U/L (34-104); Anion Gap 9 (3-11); Anisocytosis Present; Aspartate Aminotransferase 17 U/L (13-39); BUN Creatinine Ratio 8.4 (10-20); Bilirubin,Total 0.5 mg/dl (0.2-1.0); Blood Urea Nitrogen 25 mg/dl (6-23); Calcium 9.1 mg/dl (8.6-10.3); Carbon Dioxide 29 mmol/L (21-32); Chloride 104 mmol/L (98-107); Est GFR (African American) 16.9 ml/min; Est GFR (Non-African American) 14.6 ml/min; Glucose 104 mg/dl (70-99(Fasting)); Potassium 4.1 mmol/L (3.5-5.1); Sodium 142 mmol/L (136-145); Total Protein 8.3 gm/dl (6.0-8.3)
[2023-04-15 18:32] LABS: Troponin I High Sensitivity 9.3 pg/ml (0-14)
[2023-04-15 18:35] LABS: INR 1.2 (0.9-1.1); Partial Thromboplastin Ratio 1.1
[2023-04-15] MEDS ORDERED: BUMETANIDE 1 MG in SYRINGE 0 ML IV ONE ×2 (18:45→20:13)
--- NOTE | 2023-04-15 20:30 | History & Physical Report ---
Date of Service April 15, 2023 Assessment & Plan (1) Pleural effusion: (2) Cardiorenal syndrome: (3) Nonischemic cardiomyopathy: (4) Heart failure with mid-range ejection fraction (HFmEF): (5) Asthma: (6) CKD (chronic kidney disease) stage 4, GFR 15-29 ml/min: (7) Acute kidney injury superimposed on CKD: (8) Paroxysmal ventricular tachycardia: (9) Presence of biventricular implantable cardioverter-defibrillator (ICD): (10) Type II diabetes mellitus: Plan HFmEF exacerbation/hypertension/history of PS V. tach/biventricular ICD presents/PAF/hypertension- The patient will be admitted to telemetry for serial cardiac enzymes, serial EKG's, cardiac rhythm monitoring Initial troponin 9.3, with follow-up 8.1 Given Bumex total 2 mg IV in the ED, and will continue 2 mg IV every morning Continue amiodarone 200 mg daily, apixaban 5 mg twice daily, carvedilol 25 mg p.o. twice daily, mag oxide 400 mg p.o. twice daily, potassium chloride 20 mEq every morning and nifedipine extended release 90 mg at bedtime Follow serial renal function panel and magnesium level Consider decreasing dosing of nifedipine if persistent issues with edema Acute kidney injury on CKD stage IV- Creatinine 2.98 on admission with base 2.68 Follow serial renal function panel and magnesium level Pleural effusions- Status post thoracentesis of right pleural effusion on 04/04/2023 by pulmonology 1400 mL of serosanguineous fluid removed Present chest x-ray shows left pleural effusion and CHF pattern IV bumetanide as noticed above Can consult cardiology/pulmonology if inadequate response to above treatments Asthma/COPD- Continue usual inhalers Xopenex-nebulizer every 4 hours as needed Continue montelukast History of Present Illness Chief Complaint: The patient presents to the emergency department with complaint of worsening shortness of breath over the past several days, accompanied by substernal chest pressure and discomfort right posterior lower thoracic area where her thoracentesis was performed Primary Care Provider: Jigna Jovel DO The patient is a 77-year-old female with a past medical history including right pleural effusion status post thoracentesis on 04/04/2023 with removal of 1400 mL of serosanguineous fluid, CKD stage IV, HFrEF, asthma, nonischemic cardiomyopathy, paroxysmal ventricular tachycardia status post biventricular ICD placement on 01/29/2023, diabetes mellitus type 2, paroxysmal atrial fibrillation and postlaminectomy syndrome. She was most recently admitted to [facility] from 03/27-04/05/2023. She had been having improved symptoms until the past several days when she started developing the shortness of breath and substernal chest pressure as noted. She denies any recent change in oral intake for liquids or solids or salt. She denies any recent travels or sick exposures. Chest x-ray in the emergency department suggested CHF, with pleural effusion left greater than right, and was given Bumex 1 mg IV given by the ED, with an additional 1 mg IV added by me. Allergies Allergy/AdvReac Type Severity Reaction Status Date / Time codeine Allergy Severe Anaphylaxis Verified 04/15/23 18:40 furosemide Allergy Severe SEVERE Verified 04/15/23 18:40 RASH, PT REPORTS A CROSS ALLERGY WITH SULFA celecoxib [From Celebrex] Allergy Intermediate RASH Verified 04/15/23 18:40 cephalexin [From Keflex] Allergy Intermediate Rash Verified 04/15/23 18:40 hydrocodone Allergy Intermediate Rash Verified 04/15/23 18:40 Iodinated Contrast Media Allergy Intermediate RASH Verified 04/15/23 18:40 nickel Allergy Intermediate Rash Verified 04/15/23 18:40 oxycodone Allergy Intermediate Rash Verified 04/15/23 18:40 Sulfa (Sulfonamide Allergy Intermediate RASH TO Verified 04/15/23 18:40 Antibiotics) SULFA DRUGS tetracycline Allergy Intermediate RASH Verified 04/15/23 18:40 capsaicin AdvReac Intermediate CREATINE Verified 04/15/23 18:40 ELEVATION diclofenac AdvReac Intermediate CREATINE Verified 04/15/23 18:40 ELEVATION propylene glycol AdvReac Intermediate CREATINE Verified 04/15/23 18:40 ELEVATION "PREP WITH BLUE DYE" Allergy Intermediate Rash Uncoded 04/15/23 18:40 Home Medications Medication Instructions Recorded Confirmed Type magnesium oxide 400 mg PO BID 07/26/18 04/15/23 History omega 0-gwz-fcs-fish oil 1,000 mg 1,000 mg PO BID 07/26/18 04/15/23 History (120 mg-180 mg) capsule (Fish Oil) cetirizine 10 mg tablet (Zyrtec) 10 mg PO HS 08/22/19 04/15/23 History betamethasone valerate 0.1 % 1 applic topical UD PRN PSORIASIS 11/30/19 04/15/23 History topical cream blood-glucose meter (Accu-Chek 02/12/21 04/15/23 History Garima Plus Meter) nitroglycerin 0.4 mg/hr 1 patch transdermal QAM #90 ea 03/20/22 04/15/23 Rx transdermal 24 hour patch (Nitro-Dur) nifedipine 90 mg tablet,extended 90 mg PO HS #90 tabs 04/14/22 04/15/23 Rx release duloxetine 60 mg capsule,delayed 60 mg PO QAM #90 caps 05/12/22 04/15/23 Rx release (Cymbalta) cholestyramine (with sugar) 4 gram 4 ea PO DIRECTED PRN Diarrhea 08/26/22 04/15/23 History oral powder levothyroxine 137 mcg capsule 137 mcg PO DAILY #90 caps 08/27/22 04/15/23 Rx albuterol sulfate 90 mcg/actuation 2 puff inhalation Q6H PRN 09/30/22 04/15/23 Rx aerosol inhaler shortness of breath or wheezing #8.5 grams budesonide-formoterol HFA 80 2 puff inhalation BID #3 Inhalers 09/30/22 04/15/23 Rx mcg-4.5 mcg/actuation aerosol inhaler (Symbicort) azelastine 137 mcg (0.1 %) nasal 2 spray intranasal DAILY PRN 11/17/22 04/15/23 Rx spray aerosol ALLERGIES #30 mL blood sugar diagnostic (Accu-Chek #100 ea 12/19/22 04/15/23 Rx Garima Plus test strips) potassium chloride 20 mEq 20 meq PO QAM #90 tabs 01/09/23 04/15/23 Rx tablet,extended release(part/cryst) (Klor-Con M) apixaban 5 mg tablet (Eliquis) 5 mg PO BID #180 tabs 01/15/23 04/15/23 Rx montelukast 10 mg tablet 10 mg PO DAILY #90 tabs 01/19/23 04/15/23 Rx (Singulair) acetaminophen 650 mg 1,300 mg PO BID 01/20/23 04/15/23 History tablet,extended release (Tylenol Arthritis Pain) carvedilol 25 mg tablet 25 mg PO BID #60 tabs 01/31/23 04/15/23 Rx lansoprazole 30 mg capsule,delayed 30 mg PO DAILY #90 caps 02/04/23 04/15/23 Rx release [facility] ([facility] ea 03/03/23 04/15/23 Rx Bed) amiodarone 200 mg tablet 200 mg PO DAILY #30 tabs 03/06/23 04/15/23 Rx calcitriol 0.5 mcg capsule 0.25 mcg PO DAILY 03/23/23 04/15/23 History bumetanide 2 mg tablet 2 mg PO DAILY #30 tabs 04/05/23 04/15/23 Rx atorvastatin 40 mg tablet 40 mg PO HS #90 tabs 04/15/23 04/15/23 Rx dulaglutide 1.5 mg/0.5 mL 1.5 mg subcut WK 04/15/23 04/15/23 History subcutaneous pen injector ([facility]) levalbuterol HCl 0.63 mg/3 mL 0.63 mg (3 mL) inhalation Q4H PRN 04/15/23 04/15/23 Rx solution for nebulization Cough #90 mL mirtazapine 7.5 mg tablet 7.5 mg PO DAILY #30 tabs 04/15/23 04/15/23 Rx prednisone 5 mg tablet 5 mg PO QAM 04/15/23 04/15/23 History Past Med/Surg History Medical History CKD (chronic kidney disease) stage 4, GFR 15-29 ml/min baseline creatinine 2.0-2.2 range; nephrology (Dr. Stevenson) monitoring Pulmonary edema Cardiomyopathy Non-ST elevation (NSTEMI) myocardial infarction Ventricular tachycardia Tachy-lina syndrome Elevated troponin Atrial fibrillation with RVR Sialoadenitis, unspecified Allergic rhinitis SI joint arthritis Abnormal PFT Mild persistent asthma Active asthma inhaler daily/prn, nebulizer prn Sinus congestion Chronic dyspnea On anticoagulant therapy eliquis bid Paroxysmal atrial fibrillation follows with Dr. Mitchell on eliquis bid Iron deficiency anemia Atrial fibrillation Varicose veins of legs Seasonal allergies Sometimes gets bronchitis, uses nebulizer for this and allergies Chronic steroid use FOR PSORITRIC ARTHRITIS Esophageal dysmotility Restless leg syndrome Hyperlipidemia Hearing loss, right DEAF RIGHT EAR [place] [facility] current use of systemic steroids for psoriatic arthritis Obesity Polyneuropathy Tinnitus of right ear Gastric polyp Type II diabetes mellitus (Unknown) Esophageal spasm Schatzki's ring HTN (hypertension) Essential hypertension Peptic ulcer disease Irritable bowel syndrome Hypothyroidism Spinal meningioma On c-spine- follows with [facility] neurosurgery specialist (Dr. Ken)- under surveillance/stable/no indication for surgical intervention Psoriatic arthropathy GERD (gastroesophageal reflux disease) CONTROLLED WITH MEDS Osteoarthritis, knee Surgical History History of laparoscopy (~06/2020) History of colectomy (~06/2020) History of total left hip arthroplasty History of total hip arthroplasty History of dilatation and curettage History of tooth extraction History of tonsillectomy and adenoidectomy History of cardiac cath History of arthroscopy Status post total replacement of left shoulder History of colonoscopy History of esophagogastroduodenoscopy (EGD) History of total abdominal hysterectomy and bilateral salpingo-oophorectomy History of arthroscopy of right shoulder History of total knee arthroplasty History of foot surgery History of cholecystectomy History of cataract extraction History of lumbar fusion H/O thyroidectomy Family History Mother Arthritis Hypertension Father Lung cancer Hypertension Family/Other Family hx of colon cancer Unknown Allergies Breast cancer Hypertension Brother Cancer Heart disease Aunt Colorectal cancer Other No family history of adverse response to anesthesia No family history of bleeding disorder Denies family history of Ovarian cancer Prostate cancer Diabetes Hearing loss Myocardial infarction Stroke Asthma Social History Smoking Status: Never smoker Tobacco Type: Cigarettes Age Quit Using Tobacco: 26; Second Hand Exposure: No; Do You Dip or Chew Tobacco: No; Hx Alcohol Use: No Hx Substance Use: No Preferred Language: Amharic Communication Ability: Effective Communication Ability Comment: DEAF RIGHT EAR Visual Impairment: Limited Hearing Ability: Hard of Hearing 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 Required: No Beliefs That Will Affect Care: None marital status: / Current Living Situation: Alone Current Living Situation Comment: [place] current occupational status: retired current occupation: Retired How many Children do You have: 0 Other Information That Helps Us Care for You: No Feels Safe at Home: Yes Safety Concerns: Feels Safe At This Time Childhood Exposure to Second-Hand Smoke: Yes caffeine: Yes Dental Care, Regularly: Yes Physical Activity Frequency: Does not Exercise Physical Activity Frequency Comment: Hip problems Seatbelt Use: always Sunscreen Use: No Assistive Devices: Cane and Walker Review of Systems Review of Systems: The patient denies palpitations, cough, sore throat, fevers, chills, sweats, nausea, vomiting, diarrhea , constipation, abdominal pain, pelvic pain, blood in urine or stool, dysuria, urinary frequency or urgency, lightheadedness, dizziness, headache, memory loss, loss of consciousness, rash, abnormal bruising or bleeding, imbalance, focal or generalized weakness, numbness or tingling in arms or legs, generalized arthralgias or myalgias, back or neck pain, or night sweats. The review of systems is otherwise negative other than for that already noted above, and at least 10 systems have been reviewed. Physical Exam Physical Exam: The patient is awake, alert and oriented 3, well developed and well nourished, normocephalic and atraumatic, lying in bed and in no acute distress. HEENT--PERRL, EOMI, mucous membranes and oropharynx normal Neck--supple. No JVD. No bruits. Thyroid normal, trachea midline, no adenopathy. Heart--normal S1 and S2. No murmurs, rubs or gallops. Lungs--clear bilaterally, no respiratory distress, no accessory muscle use. Abdomen--normal bowel sounds and soft. Nontender. Nondistended, no hernias or masses, no organomegaly. Extremities--1+ bilateral pretibial pitting edema Dermatologic--normal skin turgor, normal color, no abnormal lymph nodes, no rash. Neurologic--cranial nerves II through XII grossly intact. Rheumatologic--normal range of motion. Psychiatric--normal affect. Results & Data Results & Data Vital Signs (Past 12 Hours) Vital Signs Temp Pulse Pulse Resp BP BP Pulse Ox 04/15/23 19:29 94 04/15/23 19:29 04/15/23 19:29 65 20 131/74 94 04/15/23 17:07 36.5 C 63 20 94/61 L 97 O2 Del Method 04/15/23 19:29 Room Air 04/15/23 19:29 Room Air 04/15/23 19:29 Room Air 04/15/23 17:07 Room Air Laboratory Results Laboratory Results WBC 6.22 K/ul (4.8-10.8) 04/15/23 17:49 RBC 3.58 M/uL (4.20-5.40) L 04/15/23 17:49 Hgb 9.6 g/dl (12.0-16.0) L 04/15/23 17:49 Hct 30.2 % (37.0-47.0) L 04/15/23 17:49 MCV 84.4 fL (80.0-100.0) 04/15/23 17:49 MCH 26.8 pg (25.0-34.0) 04/15/23 17:49 MCHC 31.8 g/dL (32.0-36.0) L 04/15/23 17:49 RDW Std Deviation 67.6 fL (36.4-46.3) H 04/15/23 17:49 RDW Coeff of Amrita 22.1 % (11.5-14.5) H 04/15/23 17:49 Plt Count 322 K/uL (130-400) 04/15/23 17:49 MPV 10.9 fL (9.4-12.4) 04/15/23 17:49 Immature Gran % (Auto) 0.3 % 04/15/23 17:49 Neut % (Auto) 68.7 % 04/15/23 17:49 Lymph % (Auto) 17.5 % 04/15/23 17:49 Rusk % (Auto) 9.6 % 04/15/23 17:49 Eos % (Auto) 3.4 % 04/15/23 17:49 Baso % (Auto) 0.5 % 04/15/23 17:49 Neut # (Auto) 4.27 K/uL (1.40-6.50) 04/15/23 17:49 Lymph # (Auto) 1.09 K/uL (1.20-3.40) L 04/15/23 17:49 Rusk # (Auto) 0.60 K/uL (0.11-0.59) H 04/15/23 17:49 Eos # (Auto) 0.21 K/uL (0.00-0.50) 04/15/23 17:49 Baso # (Auto) 0.03 K/uL (0.00-0.20) 04/15/23 17:49 Immature Gran # (Auto) 0.02 K/uL (0.01-0.20) 04/15/23 17:49 Anisocytosis Present 04/15/23 17:49 PT 13.0 Seconds (9.0-12.0) H 04/15/23 17:49 INR 1.2 (0.9-1.1) H 04/15/23 17:49 APTT 30.0 Seconds (21.0-31.0) 04/15/23 17:49 PTT Ratio 1.1 04/15/23 17:49 Sodium 142 mmol/L (136-145) 04/15/23 17:49 Potassium 4.1 mmol/L (3.5-5.1) 04/15/23 17:49 Chloride 104 mmol/L (98-107) 04/15/23 17:49 Carbon Dioxide 29 mmol/L (21-32) 04/15/23 17:49 Anion Gap 9 (3-11) 04/15/23 17:49 BUN 25 mg/dl (6-23) H 04/15/23 17:49 Creatinine 2.98 mg/dl (0.6-1.2) H 04/15/23 17:49 Est Cr Clr Drug Dosing Not Reportable 04/15/23 17:49 Est GFR ( Amer) 16.9 ml/min 04/15/23 17:49 Est GFR (Non-Af Amer) 14.6 ml/min 04/15/23 17:49 BUN/Creatinine Ratio 8.4 (10-20) L 04/15/23 17:49 Glucose 104 mg/dl (70-99(Fasting)) H 04/15/23 17:49 POC Glucose 167 mg/dl (70-99) H 04/16/23 00:19 Calcium 9.1 mg/dl (8.6-10.3) 04/15/23 17:49 Total Bilirubin 0.5 mg/dl (0.2-1.0) 04/15/23 17:49 AST 17 U/L (13-39) 04/15/23 17:49 ALT 15 U/L (7-52) 04/15/23 17:49 Alkaline Phosphatase 74 U/L (34-104) 04/15/23 17:49 Troponin I High Sens 8.1 pg/ml (0-14) 04/15/23 21:43 Total Protein 8.3 gm/dl (6.0-8.3) 04/15/23 17:49 Albumin 3.3 gm/dl (3.4-5.0) L 04/15/23 17:49 Globulin 5.0 gm/dl (2.5-4.0) H 04/15/23 17:49 Albumin/Globulin Ratio 0.7 (0.9-2) L 04/15/23 17:49 Code Status & VTE Plan Code Status Full code VTE Prophylaxis Plan VTE Prophylaxis will be ordered: Yes PG Care Time/CCT Total # of Minutes Spent Total Time Spent with Patient: Total time spent is greater than 50% in coordination of care (as documented) at patient's floor/unit and/or counseling patient: Coding Level of Care Code 05155 INT INP/OBS CARE 3/75MIN Diagnoses Pleural effusion J90 Cardiorenal syndrome with renal failure, stage 1-4 or unspecified chronic kidney disease, with heart failure I13.0 Heart failure presence: with heart failure Hypertensive chronic kidney disease stage: stage 1-4 or unspecified chronic kidney disease Nonischemic cardiomyopathy I42.8 Heart failure with mid-range ejection fraction (HFmEF) I50.22 Asthma J45.909 CKD (chronic kidney disease) stage 4, GFR 15-29 ml/min N18.4 Acute kidney injury superimposed on CKD N17.9; N18.9 Paroxysmal ventricular tachycardia I47.29 Presence of biventricular implantable cardioverter-defibrillator (ICD) Z95.810 Type 2 diabetes mellitus with stage 4 chronic kidney disease, without long-term current use of insulin E11.22; N18.4 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 fci insulin use: without fci use 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 complication status: with kidney complications 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 complication detail: with chronic kidney disease Chronic kidney disease stage: stage 4 (severe) (2) Cardiorenal syndrome Heart failure presence: with heart failure Hypertensive chronic kidney disease stage: stage 1-4 or unspecified chronic kidney disease Qualified Code(s): I13.0 - Hypertensive heart and chronic kidney disease with heart failure and stage 1 through stage 4 chronic kidney disease, or unspecified chronic kidney disease (10) Type II diabetes mellitus 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 negative assembler insulin use: without fci use 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 complication status: with kidney complications 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 complication detail: with chronic kidney disease Chronic kidney disease stage: stage 4 (severe) Qualified Code(s): E11.22 - Type 2 diabetes mellitus with diabetic chronic kidney disease; N18.4 - Chronic kidney disease, stage 4 (severe)
[2023-04-15] MEDS ORDERED: GLUCOSE 40% GEL 15 GM TUBE PO PRN (22:51)
[2023-04-15] MEDS ORDERED: GLUCOSE 10 TAB/TUBE PO PRN (22:51)
[2023-04-15] MEDS ORDERED: CARBOHYDRATES FOR HYPOGLYCEMIA PO PRN (22:51)
[2023-04-15] MEDS ORDERED: LEVALBUTEROL HCL 0.63 MG/3 ML NEB INH PRN (22:51)
[2023-04-15] MEDS ORDERED: ONDANSETRON INJ 2 MG/ML 2 ML VIAL IV PRN (22:51)
[2023-04-15] MEDS ORDERED: GLUCAGON FOR INJ 1 MG VIAL SQ PRN (22:51)
[2023-04-15] MEDS ORDERED: DEXTROSE 50% 50 ML SYRINGE IV PRN (22:51)
[2023-04-15] MEDS ORDERED: BETAMETHASONE VAL 0.1% CR 15 GM TOP PRN (22:51)
[2023-04-16] MEDS: INSULIN ASPART PER UNIT CHARGE SC SCH ×5 (00:21→21:47)
[2023-04-16] MEDS: ACETAMINOPHEN 500 MG TAB PO SCH ×3 (01:36→21:50)
[2023-04-16] MEDS: NIFEdipine EXTENDED REL 30 MG TABCR PO SCH ×2 (01:38→22:27)
[2023-04-16] MEDS: OMEGA-3 (PURIFIED FISH OIL) 1 GM CAP PO SCH ×3 (01:39→21:40)
[2023-04-16] MEDS: MAGNESIUM OXIDE 400 MG TAB PO SCH ×3 (01:39→21:41)
[2023-04-16] MEDS: CETIRIZINE HCL 10 MG TABLET PO SCH ×2 (01:40→21:40)
[2023-04-16] MEDS: ATORVASTATIN 40 MG TAB PO SCH ×2 (01:40→21:39)
[2023-04-16] MEDS: APIXABAN 5 MG TABLET PO SCH ×3 (01:40→21:38)
[2023-04-16] MEDS: carvediloL 25 MG TAB PO SCH ×3 (01:41→21:38)
[2023-04-16] MEDS: LEVOTHYROXINE SODIUM 137 MCG TABLET PO SCH (05:39)
[2023-04-16 05:53] LABS: Basophils # (auto) 0.04 K/uL (0.00-0.20); Basophils % (auto) 0.8 %; Eosinophils # (auto) 0.22 K/uL (0.00-0.50); Eosinophils % (auto) 4.2 %; Hematocrit (blood only) 27.1 % (37.0-47.0); Hemoglobin 8.5 g/dl (12.0-16.0); Immature Granulocytes # (auto) 0.01 K/uL (0.01-0.20); Immature Granulocytes % (auto) 0.2 %; Lymphocytes # (auto) 1.15 K/uL (1.20-3.40); Lymphocytes % (auto) 21.7 %; Mean Corpuscular Hemoglobin 26.2 pg (25.0-34.0); Mean Corpuscular Hgb Conc 31.4 g/dL (32.0-36.0); Mean Corpuscular Volume 83.6 fL (80.0-100.0); Mean Platelet Volume 10.5 fL (9.4-12.4); Monocytes # (auto) 0.54 K/uL (0.11-0.59); Monocytes % (auto) 10.2 %; Neutrophils # (auto) 3.33 K/uL (1.40-6.50); Neutrophils % (auto) 62.9 %; Platelet Count 313 K/uL (130-400); RDW Coefficient of Variation 22.2 % (11.5-14.5); RDW Standard Deviation 67.5 fL (36.4-46.3); Red Blood Count 3.24 M/uL (4.20-5.40); White Blood Count 5.29 K/ul (4.8-10.8)
[2023-04-16 06:03] LABS: BUN Creatinine Ratio 8.4 (10-20); Calcium 8.8 mg/dl (8.6-10.3); Creatinine Clr Calc Pharmacy 19.7 ml/min; Est GFR (African American) 16.2 ml/min; Magnesium 2.3 mg/dl (1.7-2.4); Phosphorus 5.2 mg/dl (2.5-4.9); Potassium 3.7 mmol/L (3.5-5.1)
[2023-04-16 06:17] LABS: Anisocytosis Present
[2023-04-16 07:07] LABS: Rouleaux 1+
[2023-04-16 08:26] LABS: Estimated Average Glucose 143 mg/dl; Hemoglobin A1C 6.6 % (4.5-5.6)
[2023-04-16] MEDS: CALCITRIOL 0.25 MCG CAPSULE PO SCH (08:37)
[2023-04-16] MEDS: MIRTAZAPINE TAB 15 MG TAB PO SCH (08:38)
[2023-04-16] MEDS: predniSONE 5 MG TAB PO SCH (08:38)
[2023-04-16] MEDS: FLUTICASONE/VILANTEROL 100/25MCG 14 PUFFS/INHALER INH SCH (08:38)
[2023-04-16] MEDS: PANTOprazole 40 MG TAB PO SCH (08:38)
[2023-04-16] MEDS: DULoxetine HCL 60 MG CAP PO SCH (08:38)
[2023-04-16] MEDS: POTASSIUM CHLORIDE CRTAB 20 MEQ TABCR PO SCH (08:38)
[2023-04-16] MEDS: MONTELUKAST SODIUM 10 MG TABLET PO SCH (08:38)
[2023-04-16] MEDS: AMIODARONE 200 MG TAB PO SCH (10:01)
[2023-04-16] MEDS: BUMETANIDE 2 MG in SYRINGE 0 ML IV SCH (10:01)
[2023-04-16] MEDS: NITROGLYCERIN 0.4 MG/HR PATCH TD SCH (10:02)
--- NOTE | 2023-04-16 10:33 | XRay Report ---
XR chest 1V portable CLINICAL HISTORY: hypoxia/ pleural effusions TECHNIQUE: Single frontal radiograph of the chest was obtained. Comparison: Comparison is made to chest radiograph 04/15/2023 FINDINGS: Pacemaker defibrillator is seen. Cardiomegaly is noted. The lungs are clear. Small bilateral pleural effusions are seen. IMPRESSION: Small bilateral pleural effusions are increased in size from prior exam. Cardiomegaly is again seen. ACT 112: Negative or not required by law. Electronically signed by: José Miguel Hernandes M.D. 04/16/2023 10:32 AM
--- NOTE | 2023-04-16 11:34 | Hospitalist Progress Note ---
Date of Service April 16, 2023 Assessment & Plan (1) Pleural effusion: Plan: Patient is a 77-year-old female with a complex medical history who presents for acute CHF exacerbation. Patient is admitted to telemetry for diuresis and monitoring of renal function. HFmEF exacerbation/hypertension/history of PS V. tach/biventricular ICD presents/PAF/hypertension- -Patient admitted for what appears to be acute CHF exacerbation -Bilateral pleural effusions noted that have increased in size since being drained at the beginning of the month -If adequate oxygen saturation is not achieved with diuresis alone, consider consulting pulmonology for pleural effusion management. if this were to be pursued, Eliquis to be held 24 hours prior to thoracentesis -Initial troponin 9.3, with follow-up 8.1, no longer trending -Given Bumex total 2 mg IV in the ED on admission -Currently on Bumex 2 mg IV, however, this is equivalent to the 2 mg oral she is taking daily, consider adding 1 mg at night if adequate diuresis is not achieved -Continue amiodarone 200 mg daily, apixaban 5 mg twice daily, carvedilol 25 mg p.o. twice daily, mag oxide 400 mg p.o. twice daily, potassium chloride 20 mEq every morning and nifedipine extended release 90 mg at bedtime -Follow serial renal function panel and magnesium level -Consider decreasing dosing of nifedipine if persistent issues with edema (2) Cardiorenal syndrome: Plan: Acute kidney injury on CKD stage IV- Creatinine 2.98 on admission with base 2.68 Follow serial renal function panel and magnesium level, suspect improvement with diuresis (3) Asthma: Plan: Asthma/COPD- Continue usual inhalers Xopenex-nebulizer every 4 hours as needed Continue montelukast (4) Heart failure with mid-range ejection fraction (HFmEF): Plan: -See above -Renal insufficiency limits use of ESTELA/ARB/ARNI -Hold beta-blockade in the setting of hypotension (5) CKD (chronic kidney disease) stage 4, GFR 15-29 ml/min: Plan: - See cardiorenal syndrome (6) Acute kidney injury superimposed on CKD: Plan: - See cardiorenal syndrome (7) Paroxysmal ventricular tachycardia: Plan: - Continue amiodarone (8) Presence of biventricular implantable cardioverter-defibrillator (ICD): Plan: - Noted (9) Type II diabetes mellitus: Plan: - Continue basal bolus with sliding scale insulin -DM2 diet Plan Disposition: Continue with diuresis DVT prophylaxis: Eliquis Diet: DM 2, low-sodium CODE STATUS: Full code Admission and Anticipated Discharge Date Admission Date: April 15, 2023 Supervising Physician Co-Signing Physician Notes I personally examined the patient and verified all ellis points of history and exam, discussed case, and agree with decision making with Dr Lloyd asleep sitting in the chair, breathing unlabored. Does not start to voice, but appears in no distress. Given clinical progress, as well as being seen by resident physician and cardiology, and overall stability, allowed patient to res t. Vitals noted, in general she is sitting up in the chair breathing comfortably and in no distress. Breathing unlabored no accessory muscle use good spontaneous effort. No asymmetry or focal neurodeficits noted. Skin appears to not have any rashes pallor or icterus. Volume overload/pleural effusions/acute (or subacute) HFpEFdiurese, follow, may need thoracentesis but right now effusions do not appear large enough to clearly require drainage. Continue to follow closely. Chronically anticoagulated on apixaban. Otherwise as above. Subjective Patient seen at bedside this morning. No acute events reported overnight. Coming in with worsening shortness of breath over the past 3 to 4 days especially with exertion. Patient is aware of limiting sodium, however, she gets Meals on Wheels daily which contains 2 preprepared meals. Patient is unaware of how much sodium is in. She suspects more than she realizes because they sent her sandwiches that contain lunchmeat often, however, when she is sent these, she does not eat the sandwiches. Reports that she feels somewhat better today. Still feeling short of breath, however, she is not having the chest pressure that she was experiencing on admission. Does note good amount of urination. No other complaints at this time. Review of Systems Review of Systems: All systems reviewed & are unremarkable except as noted in HPI & below Physical Exam Constitutional: WD/WN, vitals as above Eyes: + anicteric sclerae Neck: trachea midline, no thyromegaly Respiratory: normal respiratory effort Auscultation: + breath sounds absent (bases bilaterally) and + crackles Cardiovascular: Rate/Rhythm: regular rate and regular rhythm Extremities: + edema Musculoskeletal: Head/Neck/Chest: normocephalic and head atraumatic Skin: no rashes, warm and dry Neurologic: moves all extremities Psychiatric: A+Ox3, euthymic affect Results & Data Results & Data Vital Signs (Past 12 Hours) Vital Signs Temp Pulse Pulse Resp BP Pulse Ox O2 Del Method 04/16/23 07:58 36.9 C 71 22 90/58 L 100 High Flow Nasal Cannula 04/16/23 07:53 61 04/16/23 02:38 36.5 C 60 16 119/65 97 Nasal Cannula 04/16/23 02:21 62 04/16/23 00:00 Nasal Cannula 04/16/23 00:00 36.7 C 67 18 112/66 92 Nasal Cannula 04/16/23 00:00 Nasal Cannula O2 Flow Rate 04/16/23 07:58 4 04/16/23 07:53 04/16/23 02:38 2 04/16/23 02:21 04/16/23 00:00 2 04/16/23 00:00 2 04/16/23 00:00 2 (2) Cardiorenal syndrome Heart failure presence: with heart failure Hypertensive chronic kidney disease stage: stage 1-4 or unspecified chronic kidney disease Qualified Code(s): I13.0 - Hypertensive heart and chronic kidney disease with heart failure and stage 1 through stage 4 chronic kidney disease, or unspecified chronic kidney disease (9) Type II diabetes mellitus Chronic kidney disease stage: stage 4 (severe) 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 complication detail: with chronic kidney disease 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 complication status: with kidney complications 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 intermodal truck driver insulin use: without intermodal truck driver use Qualified Code(s): E11.22 - Type 2 diabetes mellitus with diabetic chronic kidney disease; N18.4 - Chronic kidney disease, stage 4 (severe)
--- NOTE | 2023-04-16 12:02 | Cardiology Consultation ---
Date of Consultation April 16, 2023 Assessment & Plan (1) CHF (congestive heart failure): -acute on chronic diastolic CHF at time of presentation. -agree with intravenous Bumex. -continue carvedilol. -renal insufficiency limits ARB/ACEI. (2) Paroxysmal atrial fibrillation: -continue rhythm control and long-term anticoagulation (3) Paroxysmal ventricular tachycardia: -continue amiodarone. History of Present Illness Attending Physician: Kirk Ca DO History of Present Illness Mrs. Vergara is a 77-year-old female admitted yesterday in mildly decompensated CHF. This consultation was ordered to assist in her cardiac management. Of note, patient typically follows with Dr. Mitchell and in the CHF clinic. The patient was in usual state of health until approximately 3-4 days prior to presentation. She began to note progressive shortness of breath and noted discomfort in the right posterior thorax were prior thoracentesis had been performed. She presented to the emergency room for further care. Hospitalization was recommended. The patient was admitted from March 27 through the with acute hypoxic respiratory failure which was felt to be from multiple etiologies. There was a component of acute on chronic diastolic CHF. She did have a thoracentesis performed which revealed a transient date of effusion. Currently, patient is resting comfortably in bed and without complaints. Past medical and surgical history 1. Hypertension 2. Normal coronary arteries-July 2007 3. Negative DSE-February 2021 4. Tachy-lina syndrome 5. Biventricular ICD 6. Paroxysmal ventricular tachycardia 4. Chronic renal failure 5. Peptic ulcer disease 6. Reflux esophagitis 7. Hypothyroidism 8. Sp[id number] 9. Ureteral bowel syndrome 10. Schatzki's ring 11. Psoriatic arthritis 12. Chronic steroids 13. Superficial thrombophlebitis 14. DJD 15. Cholecystectomy 16. Thyroidectomy 17. Lumbar fusion 18. Left TKR 19. Tonsillectomy 20. JUSTIN/BSO Social history , lives with her . 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 No tobacco or alcohol Family history Mother at 97 from old age. Father in his 70s from lung carcinoma No early coronary artery disease Review of systems A 10 point review of systems was undertaken and negative except for that described above. Allergies Allergy/AdvReac Type Severity Reaction Status Date / Time codeine Allergy Severe Anaphylaxis Verified 04/15/23 18:40 furosemide Allergy Severe SEVERE Verified 04/15/23 18:40 RASH, PT REPORTS A CROSS ALLERGY WITH SULFA celecoxib [From Celebrex] Allergy Intermediate RASH Verified 04/15/23 18:40 cephalexin [From Keflex] Allergy Intermediate Rash Verified 04/15/23 18:40 hydrocodone Allergy Intermediate Rash Verified 04/15/23 18:40 Iodinated Contrast Media Allergy Intermediate RASH Verified 04/15/23 18:40 nickel Allergy Intermediate Rash Verified 04/15/23 18:40 oxycodone Allergy Intermediate Rash Verified 04/15/23 18:40 Sulfa (Sulfonamide Allergy Intermediate RASH TO Verified 04/15/23 18:40 Antibiotics) SULFA DRUGS tetracycline Allergy Intermediate RASH Verified 04/15/23 18:40 capsaicin AdvReac Intermediate CREATINE Verified 04/15/23 18:40 ELEVATION diclofenac AdvReac Intermediate CREATINE Verified 04/15/23 18:40 ELEVATION propylene glycol AdvReac Intermediate CREATINE Verified 04/15/23 18:40 ELEVATION "PREP WITH BLUE DYE" Allergy Intermediate Rash Uncoded 04/15/23 18:40 Home Medications Medication Instructions Recorded Confirmed Type magnesium oxide 400 mg PO BID 07/26/18 04/15/23 History omega 1-zae-teu-fish oil 1,000 mg 1,000 mg PO BID 07/26/18 04/15/23 History (120 mg-180 mg) capsule (Fish Oil) cetirizine 10 mg tablet (Zyrtec) 10 mg PO HS 08/22/19 04/15/23 History betamethasone valerate 0.1 % 1 applic topical UD PRN PSORIASIS 11/30/19 04/15/23 History topical cream blood-glucose meter (Accu-Chek 02/12/21 04/15/23 History Garima Plus Meter) nitroglycerin 0.4 mg/hr 1 patch transdermal QAM #90 ea 03/20/22 04/15/23 Rx transdermal 24 hour patch (Nitro-Dur) nifedipine 90 mg tablet,extended 90 mg PO HS #90 tabs 04/14/22 04/15/23 Rx release duloxetine 60 mg capsule,delayed 60 mg PO QAM #90 caps 05/12/22 04/15/23 Rx release (Cymbalta) cholestyramine (with sugar) 4 gram 4 ea PO DIRECTED PRN Diarrhea 08/26/22 04/15/23 History oral powder levothyroxine 137 mcg capsule 137 mcg PO DAILY #90 caps 08/27/22 04/15/23 Rx albuterol sulfate 90 mcg/actuation 2 puff inhalation Q6H PRN 09/30/22 04/15/23 Rx aerosol inhaler shortness of breath or wheezing #8.5 grams budesonide-formoterol HFA 80 2 puff inhalation BID #3 Inhalers 09/30/22 04/15/23 Rx mcg-4.5 mcg/actuation aerosol inhaler (Symbicort) azelastine 137 mcg (0.1 %) nasal 2 spray intranasal DAILY PRN 11/17/22 04/15/23 Rx spray aerosol ALLERGIES #30 mL blood sugar diagnostic (Accu-Chek #100 ea 12/19/22 04/15/23 Rx Garima Plus test strips) potassium chloride 20 mEq 20 meq PO QAM #90 tabs 01/09/23 04/15/23 Rx tablet,extended release(part/cryst) (Klor-Con M) apixaban 5 mg tablet (Eliquis) 5 mg PO BID #180 tabs 01/15/23 04/15/23 Rx montelukast 10 mg tablet 10 mg PO DAILY #90 tabs 01/19/23 04/15/23 Rx (Singulair) acetaminophen 650 mg 1,300 mg PO BID 01/20/23 04/15/23 History tablet,extended release (Tylenol Arthritis Pain) carvedilol 25 mg tablet 25 mg PO BID #60 tabs 01/31/23 04/15/23 Rx lansoprazole 30 mg capsule,delayed 30 mg PO DAILY #90 caps 02/04/23 04/15/23 Rx release Hospital [facility] (Hospital #1 ea 03/03/23 04/15/23 Rx Bed) amiodarone 200 mg tablet 200 mg PO DAILY #30 tabs 03/06/23 04/15/23 Rx calcitriol 0.5 mcg capsule 0.25 mcg PO DAILY 03/23/23 04/15/23 History bumetanide 2 mg tablet 2 mg PO DAILY #30 tabs 04/05/23 04/15/23 Rx atorvastatin 40 mg tablet 40 mg PO HS #90 tabs 04/15/23 04/15/23 Rx dulaglutide 1.5 mg/0.5 mL 1.5 mg subcut WK 04/15/23 04/15/23 [facility] levalbuterol HCl 0.63 mg/3 mL 0.63 mg (3 mL) inhalation Q4H PRN 04/15/23 04/15/23 Rx solution for nebulization Cough #90 mL mirtazapine 7.5 mg tablet 7.5 mg PO DAILY #30 tabs 04/15/23 04/15/23 Rx prednisone 5 mg tablet 5 mg PO QAM 04/15/23 04/15/23 History Patient History Medical History CKD (chronic kidney disease) stage 4, GFR 15-29 ml/min baseline creatinine 2.0-2.2 range; nephrology (Dr. Stevenson) monitoring Pulmonary edema Cardiomyopathy Non-ST elevation (NSTEMI) myocardial infarction Ventricular tachycardia Tachy-lina syndrome Elevated troponin Atrial fibrillation with RVR Sialoadenitis, unspecified Allergic rhinitis SI joint arthritis Abnormal PFT Mild persistent asthma Active asthma inhaler daily/prn, nebulizer prn Sinus congestion Chronic dyspnea On anticoagulant therapy eliquis bid Paroxysmal atrial fibrillation follows with Dr. 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 Ken)- under surveillance/stable/no indication for surgical intervention Psoriatic arthropathy GERD (gastroesophageal reflux disease) CONTROLLED WITH MEDS Osteoarthritis, knee Surgical History History of laparoscopy (~06/2020) History of colectomy (~06/2020) History of total left hip arthroplasty History of total hip arthroplasty History of dilatation and curettage History of tooth extraction History of tonsillectomy and adenoidectomy History of cardiac cath History of arthroscopy Status post total replacement of left shoulder History of colonoscopy History of esophagogastroduodenoscopy (EGD) History of total abdominal hysterectomy and bilateral salpingo-oophorectomy History of arthroscopy of right shoulder History of total knee arthroplasty History of foot surgery History of cholecystectomy History of cataract extraction History of lumbar fusion H/O thyroidectomy Family History Mother Arthritis Hypertension Father Lung cancer Hypertension Family/Other Family hx of colon cancer Unknown Allergies Breast cancer Hypertension Brother Cancer Heart disease Aunt Colorectal cancer Other No family history of adverse response to anesthesia No family history of bleeding disorder Denies family history of Ovarian cancer Prostate cancer Diabetes Hearing loss Myocardial infarction Stroke Asthma Social History Smoking Status: Never smoker Tobacco Type: Cigarettes Age Quit Using Tobacco: 26; Second Hand Exposure: No; Do You Dip or Chew Tobacco: No; Hx Alcohol Use: No Hx Substance Use: No Preferred Language: Citizen Of The [place] Communication Ability: Effective Communication Ability Comment: DEAF RIGHT EAR Visual Impairment: Limited Hearing Ability: Hard of Hearing Ceo And President Required: No Beliefs That Will Affect Care: None marital status: / Current Living Situation: Alone Current Living Situation Comment: [place] current occupational status: retired current occupation: Retired How many Children do You have: 0 Other Information That Helps Us Care for You: No Feels Safe at Home: Yes Safety Concerns: Feels Safe At This Time Childhood Exposure to Second-Hand Smoke: Yes caffeine: Yes Dental Care, Regularly: Yes Physical Activity Frequency: Does not Exercise Physical Activity Frequency Comment: Hip problems Seatbelt Use: always Sunscreen Use: No Assistive Devices: Cane, Nebulizer and Walker Physical Exam Physical Exam: In general this is a well-developed well-nourished black female in no acute distress. HEENT exam is negative. Neck is supple with full carotid upstrokes. There are no carotid bruits. Jugular venous pressure is flat at 90. There is no thyromegaly. Cardiovascular exam reveals a regular rhythm with a normal S1 and S2. No S3, S4, or murmurs are noted. Chest reveals a palpable device in the left subclavicular region. Lungs note decrease breath sounds at the bases but no rales, rhonchi, or wheezes. Abdomen is soft and nontender without bruits. Extremities reveal intact radial artery and posterior tibial pulses bilaterally. There is no peripheral edema. Results & Data Vital Signs (Past 12 Hours) Vital Signs Temp Pulse Pulse Resp BP Pulse Ox O2 Del Method 04/16/23 07:58 36.9 C 71 22 90/58 L 100 High Flow Nasal Cannula 04/16/23 07:53 61 04/16/23 02:38 36.5 C 60 16 119/65 97 Nasal Cannula 04/16/23 02:21 62 04/16/23 00:00 Nasal Cannula 04/16/23 00:00 36.7 C 67 18 112/66 92 Nasal Cannula 04/16/23 00:00 Nasal Cannula O2 Flow Rate 04/16/23 07:58 4 04/16/23 07:53 04/16/23 02:38 2 04/16/23 02:21 04/16/23 00:00 2 04/16/23 00:00 2 04/16/23 00:00 2 Laboratory Results Initial high sensitivity troponin was normal at 9.3 with follow-up value of 8.1. PG Care Time/CCT Total # of Minutes Spent Total Time Spent with Patient: Total time spent is greater than 50% in coordination of care (as documented) at patient's floor/unit and/or counseling patient: Coding Level of Care Code 21479 INT INP/OBS CARE 3/75MIN Diagnoses CHF (congestive heart failure) I50.9 Heart failure chronicity: acute on chronic Paroxysmal atrial fibrillation I48.0 Paroxysmal ventricular tachycardia I47.29 (1) CHF (congestive heart failure) Heart failure chronicity: acute on chronic
--- NOTE | 2023-04-16 13:00 | Electrocardiogram Report ---
Test Reason : Blood Pressure : / mmHG Vent. Rate : 061 BPM Atrial Rate : 060 BPM P-R Int : 136 ms QRS Dur : 158 ms QT Int : 512 ms P-R-T Axes : 000 -03 -63 degrees QTc Int : 515 ms AV dual-paced rhythm Abnormal ECG When compared with ECG of 04-APR-2023 14:18, No significant change was found Confirmed by Ky Martins ([id number]) on 04/16/2023 1:00:01 PM Referred By: Jigna Jovel Confirmed By:Ky Martins
--- NOTE | 2023-04-16 16:03 | Billing Data ---
Date of Service April 16, 2023 Coding Level of Care Code 38948 SUB INP/OBS CARE
[2023-04-16] MEDS: ACETAMINOPHEN 325 MG TAB PO PRN (18:07)
[2023-04-17] MEDS: LEVOTHYROXINE SODIUM 137 MCG TABLET PO SCH (05:36)
[2023-04-17 05:53] LABS: Basophils # (auto) 0.03 K/uL (0.00-0.20); Basophils % (auto) 0.6 %; Eosinophils # (auto) 0.19 K/uL (0.00-0.50); Hematocrit (blood only) 27.3 % (37.0-47.0); Hemoglobin 8.4 g/dl (12.0-16.0); Immature Granulocytes # (auto) 0.01 K/uL (0.01-0.20); Immature Granulocytes % (auto) 0.2 %; Lymphocytes # (auto) 1.11 K/uL (1.20-3.40); Lymphocytes % (auto) 23.6 %; Mean Corpuscular Hemoglobin 26.5 pg (25.0-34.0); Mean Corpuscular Hgb Conc 30.8 g/dL (32.0-36.0); Mean Corpuscular Volume 86.1 fL (80.0-100.0); Monocytes # (auto) 0.48 K/uL (0.11-0.59); Monocytes % (auto) 10.2 %; Neutrophils # (auto) 2.88 K/uL (1.40-6.50); Neutrophils % (auto) 61.4 %; Platelet Count 302 K/uL (130-400); RDW Coefficient of Variation 21.7 % (11.5-14.5); Red Blood Count 3.17 M/uL (4.20-5.40)
[2023-04-17 06:14] LABS: Albumin Level 2.9 gm/dl (3.4-5.0); BUN Creatinine Ratio 8.3 (10-20); Calcium 8.4 mg/dl (8.6-10.3); Creatinine Clr Calc Pharmacy 19.4 ml/min; Est GFR (African American) 15.9 ml/min; Est GFR (Non-African American) 13.7 ml/min; Magnesium 2.5 mg/dl (1.7-2.4); Phosphorus 4.6 mg/dl (2.5-4.9); Potassium 3.9 mmol/L (3.5-5.1)
[2023-04-17 06:39] LABS: Anisocytosis Present
--- NOTE | 2023-04-17 08:22 | Hospitalist Progress Note ---
Date of Service April 17, 2023 Assessment & Plan (1) Pleural effusion: Plan: Patient is a 77-year-old female with a complex medical history who presents for acute CHF exacerbation. Patient is admitted to telemetry for diuresis and monitoring of renal function. HFmEF exacerbation/hypertension/history of PS V. tach/biventricular ICD presents/PAF/hypertension- -Patient admitted for dyspnea with recurrent pleural effusions -Bilateral pleural effusions noted that have increased in size since being drained at the beginning of the month. At that time fluid was exudative -Hold Bumex given elevation in creatine with diuresis; re-assess tomorrow -Continue amiodarone 200 mg daily, carvedilol 25 mg p.o. twice daily, mag oxide 400 mg p.o. twice daily, potassium chloride 20 mEq every morning and nifedipine extended release 90 mg at bedtime - Pulm consulted for consideration of repeat thoracentesis; Eliquis currently held- - CT chest pending (2) Cardiorenal syndrome: Plan: Acute kidney injury on CKD stage IV- Creatinine 3.14 base 2.68 Follow serial renal function panel and magnesium level Not improvement with dieresis; hold further diereses and re-assess tomorrow (3) Asthma: Plan: Asthma/COPD- Continue usual inhalers Xopenex-nebulizer every 4 hours as needed Continue montelukast (4) Heart failure with mid-range ejection fraction (HFmEF): Plan: -See above -Renal insufficiency limits use of ESTELA/ARB/ARNI -Hold beta-blockade in the setting of hypotension (5) CKD (chronic kidney disease) stage 4, GFR 15-29 ml/min: Plan: - See cardiorenal syndrome (6) Acute kidney injury superimposed on CKD: Plan: - See cardiorenal syndrome (7) Paroxysmal ventricular tachycardia: Plan: - Continue amiodarone (8) Presence of biventricular implantable cardioverter-defibrillator (ICD): Plan: - Noted (9) Type II diabetes mellitus: Plan: - Continue basal bolus with sliding scale insulin -DM2 diet Plan Disposition: Continue with diuresis DVT prophylaxis: Eliquis held for thoracentesis Diet: DM 2, low-sodium CODE STATUS: Full code Admission and Anticipated Discharge Date Admission Date: April 15, 2023 Supervising Physician Co-Signing Physician Notes I personally examined the patient and verified all ellis points of history and exam, discussed case, and agree with decision making with Dr Ramírez Breathing feels a little bit better than when she came in, but still somewhat heaviness in her chest from time to time, also notes right lower stabbing type chest pain that seems to come and go at random is often intense enough to wake her from sleep and has been going on for the last several days. Vitals noted, in general she is awake and alert pleasant no distress. HEENT normocephalic atraumatic mucous membranes moist. Breathing unlabored no accessory muscle use good effort. Skin shows no rashes no pallor or icterus. Neuro without focal deficits. Dyspnea, pleural effusionuncertain etiology, situation at surface of value seems to fit with CHF, but the effusion being exudative certainly does not; at the same time also diuresing her without a lot of significant improvement and a bit of a bump in her creatinine does not really seem to fit with a decompensated CHF picture either. Consult pulmonary, noncontrast chest CT to better characterize if she has truly parenchymal pulmonary edema and/or to better characterize the effusionif she has no pulmonary edema would hold off on further diuresis. Late addendumappreciate pulmonary inputappreciate anticipated repeat thoracentesis, does not appear to really warrant bridging anticoagulation at this time. Otherwise as above. Subjective Pt seen at bedside this morning. Complaining of right sided pleuritic pain. Dyspnea some what improved. Review of Systems Review of Systems: As per above Physical Exam Physical Exam: Constitutional: well-appearing, no acute distress HEENT: NCAT, no conjunctival injection CV: regular rhythm, no murmur appreciated, extremities well-perfused. no LE edema Resp: Lung sounds diminished at bases, no wheezes/rales/rhonchi appreciated, no increased work of breathing MSK: no gross deformities appreciated Skin: warm, dry, no rash appreciated Neuro: alert, oriented, no focal neurologic deficit appreciated Results & Data Results & Data Vital Signs (Past 12 Hours) Vital Signs Temp Pulse Pulse Resp BP Pulse Ox O2 Del Method 04/17/23 07:58 Nasal Cannula 04/17/23 07:23 36.6 C 60 16 97/60 L 93 Nasal Cannula 04/17/23 03:00 36.7 C 60 18 109/68 98 High Flow Nasal Cannula 04/16/23 23:00 36.5 C 57 L 18 105/66 97 High Flow Nasal Cannula 04/16/23 22:37 60 04/16/23 21:45 Nasal Cannula O2 Flow Rate 04/17/23 07:58 3 04/17/23 07:23 4 04/17/23 03:00 4 04/16/23 23:00 4 04/16/23 22:37 04/16/23 21:45 3 Resident Activity Tracking Resident Involvement: Resident Care Provided Care Provided: Adult Hospital Medicine (2) Cardiorenal syndrome Heart failure presence: with heart failure Hypertensive chronic kidney disease stage: stage 1-4 or unspecified chronic kidney disease Qualified Code(s): I13.0 - Hypertensive heart and chronic kidney disease with heart failure and stage 1 through stage 4 chronic kidney disease, or unspecified chronic kidney disease (9) Type II diabetes mellitus Chronic kidney disease stage: stage 4 (severe) 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 complication detail: with chronic kidney disease 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 complication status: with kidney complications 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
[2023-04-17] MEDS: INSULIN ASPART PER UNIT CHARGE SC SCH ×4 (08:57→21:58)
[2023-04-17] MEDS: DULoxetine HCL 60 MG CAP PO SCH (08:59)
[2023-04-17] MEDS: PANTOprazole 40 MG TAB PO SCH (08:59)
[2023-04-17] MEDS: OMEGA-3 (PURIFIED FISH OIL) 1 GM CAP PO SCH ×2 (08:59→21:56)
[2023-04-17] MEDS: APIXABAN 5 MG TABLET PO SCH (08:59)
[2023-04-17] MEDS: carvediloL 25 MG TAB PO SCH ×2 (08:59→21:57)
[2023-04-17] MEDS: MAGNESIUM OXIDE 400 MG TAB PO SCH ×2 (08:59→21:54)
[2023-04-17] MEDS: AMIODARONE 200 MG TAB PO SCH (08:59)
[2023-04-17] MEDS: MONTELUKAST SODIUM 10 MG TABLET PO SCH (09:00)
[2023-04-17] MEDS: BUMETANIDE 2 MG in SYRINGE 0 ML IV SCH (09:00)
[2023-04-17] MEDS: CALCITRIOL 0.25 MCG CAPSULE PO SCH (09:00)
[2023-04-17] MEDS: MIRTAZAPINE TAB 15 MG TAB PO SCH (09:00)
[2023-04-17] MEDS: predniSONE 5 MG TAB PO SCH (09:00)
[2023-04-17] MEDS: NITROGLYCERIN 0.4 MG/HR PATCH TD SCH (09:01)
[2023-04-17] MEDS: FLUTICASONE/VILANTEROL 100/25MCG 14 PUFFS/INHALER INH SCH (09:01)
[2023-04-17] MEDS: ACETAMINOPHEN 500 MG TAB PO SCH ×2 (10:14→21:54)
[2023-04-17] MEDS: POTASSIUM CHLORIDE CRTAB 20 MEQ TABCR PO SCH (10:14)
--- NOTE | 2023-04-17 13:10 | Electrocardiogram Report ---
Test Reason : Blood Pressure : / mmHG Vent. Rate : 061 BPM Atrial Rate : 059 BPM P-R Int : 136 ms QRS Dur : 166 ms QT Int : 520 ms P-R-T Axes : 000 -13 -61 degrees QTc Int : 523 ms AV dual-paced rhythm Abnormal ECG When compared with ECG of 16-APR-2023 05:08, No significant change was found Confirmed by Ky Martins ([id number]) on 04/17/2023 1:09:59 PM Referred By: Jigna Jovel Confirmed By:Ky Martins
--- NOTE | 2023-04-17 13:27 | Pulmonary Consultation ---
Date of Consultation April 17, 2023 Assessment & Plan (1) Heart failure with reduced ejection fraction: (2) Acute respiratory failure with hypoxia: (3) CKD (chronic kidney disease) stage 4, GFR 15-29 ml/min: (4) Pleural effusion: Plan 77-year-old female with a history of asthma, ischemic cardiomyopathy, atrial fibrillation and ventricular tachycardia who is currently hospitalized due to an acute exacerbation of heart failure with reaccumulation of pleural fluid. Prior characterization demonstrate lymphocytic exudate with negative cultures and cytology. Recommendations: 1. Bilateral pleural effusions: Repeat sampling is indicated. Unfortunately the patient is fully anticoagulated. Will hold her anticoagulation and reassess on Thursday. Will defer to the primary service as to whether or not bridging with heparin is required. Fluid will be sent for repeat characterization including cytology. 2. Dyspnea: Suspect related to heart failure: Management per primary service and cardiology. Agree with plans for diuresis. Will see again on Thursday to assess for thoracentesis. Please contact sooner if questions or issues. History of Present Illness Attending Physician: Kirk Ca DO History of Present Illness Asked by hospitalist to evaluate this patient with heart failure exacerbation and recurrent pleural effusions. History is obtained from discussion with the patient as well as review the electronic medical record. Patient is a 77-year-old female with a history of diastolic heart failure, chronic kidney disease diabetes and atrial fibrillation on anticoagulation who was seen by one of my partners about 2 weeks ago. She underwent a thoracentesis at that point time which demonstrated a lymphocytic exudate with negative cytology and negative cultures including AFB cultures to date. She states she felt better for about 5 days after the fluid was removed and then it came back. She was admitted to the hospital 04/15/2023 with complaints of progressive shortness of breath and substernal chest pressure. Chest x-ray was performed which revealed reaccumulation of the pleural fluid on the right (site of prior thoracentesis) with persistent effusion on the left. She was seen by cardiology. Diuresis rhythm control amiodarone and anticoagulation was recommended. Pulmonary was consulted for evaluation of the effusions. The patient is pending a CT of the chest. Patient denies fevers chills night sweats or other constitutional symptoms. She reports no history of chest trauma. She does have lower extremity edema. Allergies Allergy/AdvReac Type Severity Reaction Status Date / Time codeine Allergy Severe Anaphylaxis Verified 04/15/23 18:40 furosemide Allergy Severe SEVERE Verified 04/15/23 18:40 RASH, PT REPORTS A CROSS ALLERGY WITH SULFA celecoxib [From Celebrex] Allergy Intermediate RASH Verified 04/15/23 18:40 cephalexin [From Keflex] Allergy Intermediate Rash Verified 04/15/23 18:40 hydrocodone Allergy Intermediate Rash Verified 04/15/23 18:40 Iodinated Contrast Media Allergy Intermediate RASH Verified 04/15/23 18:40 nickel Allergy Intermediate Rash Verified 04/15/23 18:40 oxycodone Allergy Intermediate Rash Verified 04/15/23 18:40 Sulfa (Sulfonamide Allergy Intermediate RASH TO Verified 04/15/23 18:40 Antibiotics) SULFA DRUGS tetracycline Allergy Intermediate RASH Verified 04/15/23 18:40 capsaicin AdvReac Intermediate CREATINE Verified 04/15/23 18:40 ELEVATION diclofenac AdvReac Intermediate CREATINE Verified 04/15/23 18:40 ELEVATION propylene glycol AdvReac Intermediate CREATINE Verified 04/15/23 18:40 ELEVATION "PREP WITH BLUE DYE" Allergy Intermediate Rash Uncoded 04/15/23 18:40 Home Medications Medication Instructions Recorded Confirmed Type magnesium oxide 400 mg PO BID 07/26/18 04/15/23 History omega 8-ayh-xut-fish oil 1,000 mg 1,000 mg PO BID 07/26/18 04/15/23 History (120 mg-180 mg) capsule (Fish Oil) cetirizine 10 mg tablet (Zyrtec) 10 mg PO HS 08/22/19 04/15/23 History betamethasone valerate 0.1 % 1 applic topical UD PRN PSORIASIS 11/30/19 04/15/23 History topical cream blood-glucose meter (Accu-Chek 02/12/21 04/15/23 History Garima Plus Meter) nitroglycerin 0.4 mg/hr 1 patch transdermal QAM #90 ea 03/20/22 04/15/23 Rx transdermal 24 hour patch (Nitro-Dur) nifedipine 90 mg tablet,extended 90 mg PO HS #90 tabs 04/14/22 04/15/23 Rx release duloxetine 60 mg capsule,delayed 60 mg PO QAM #90 caps 05/12/22 04/15/23 Rx release (Cymbalta) cholestyramine (with sugar) 4 gram 4 ea PO DIRECTED PRN Diarrhea 08/26/22 04/15/23 History oral powder levothyroxine 137 mcg capsule 137 mcg PO DAILY #90 caps 08/27/22 04/15/23 Rx albuterol sulfate 90 mcg/actuation 2 puff inhalation Q6H PRN 09/30/22 04/15/23 Rx aerosol inhaler shortness of breath or wheezing #8.5 grams budesonide-formoterol HFA 80 2 puff inhalation BID #3 Inhalers 09/30/22 04/15/23 Rx mcg-4.5 mcg/actuation aerosol inhaler (Symbicort) azelastine 137 mcg (0.1 %) nasal 2 spray intranasal DAILY PRN 11/17/22 04/15/23 Rx spray aerosol ALLERGIES #30 mL blood sugar diagnostic (Accu-Chek #100 ea 12/19/22 04/15/23 Rx Garima Plus test strips) potassium chloride 20 mEq 20 meq PO QAM #90 tabs 01/09/23 04/15/23 Rx tablet,extended release(part/cryst) (Klor-Con M) apixaban 5 mg tablet (Eliquis) 5 mg PO BID #180 tabs 01/15/23 04/15/23 Rx montelukast 10 mg tablet 10 mg PO DAILY #90 tabs 01/19/23 04/15/23 Rx (Singulair) acetaminophen 650 mg 1,300 mg PO BID 01/20/23 04/15/23 History tablet,extended release (Tylenol Arthritis Pain) carvedilol 25 mg tablet 25 mg PO BID #60 tabs 01/31/23 04/15/23 Rx lansoprazole 30 mg capsule,delayed 30 mg PO DAILY #90 caps 02/04/23 04/15/23 Rx release [facility] ([facility] ea 03/03/23 04/15/23 Rx Bed) amiodarone 200 mg tablet 200 mg PO DAILY #30 tabs 03/06/23 04/15/23 Rx calcitriol 0.5 mcg capsule 0.25 mcg PO DAILY 03/23/23 04/15/23 History bumetanide 2 mg tablet 2 mg PO DAILY #30 tabs 04/05/23 04/15/23 Rx atorvastatin 40 mg tablet 40 mg PO HS #90 tabs 04/15/23 04/15/23 Rx dulaglutide 1.5 mg/0.5 mL 1.5 mg subcut WK 04/15/23 04/15/23 [facility] levalbuterol HCl 0.63 mg/3 mL 0.63 mg (3 mL) inhalation Q4H PRN 04/15/23 04/15/23 Rx solution for nebulization Cough #90 mL mirtazapine 7.5 mg tablet 7.5 mg PO DAILY #30 tabs 04/15/23 04/15/23 Rx prednisone 5 mg tablet 5 mg PO QAM 04/15/23 04/15/23 History Patient History Medical History CKD (chronic kidney disease) stage 4, GFR 15-29 ml/min baseline creatinine 2.0-2.2 range; nephrology (Dr. Stevenson) monitoring Pulmonary edema Cardiomyopathy Non-ST elevation (NSTEMI) myocardial infarction Ventricular tachycardia Tachy-lina syndrome Elevated troponin Atrial fibrillation with RVR Sialoadenitis, unspecified Allergic rhinitis SI joint arthritis Abnormal PFT Mild persistent asthma Active asthma inhaler daily/prn, nebulizer prn Sinus congestion Chronic dyspnea On anticoagulant therapy eliquis bid Paroxysmal atrial fibrillation follows with Dr. 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 Ken)- under surveillance/stable/no indication for surgical intervention Psoriatic arthropathy GERD (gastroesophageal reflux disease) CONTROLLED WITH MEDS Osteoarthritis, knee Surgical History History of laparoscopy (~06/2020) History of colectomy (~06/2020) History of total left hip arthroplasty History of total hip arthroplasty History of dilatation and curettage History of tooth extraction History of tonsillectomy and adenoidectomy History of cardiac cath History of arthroscopy Status post total replacement of left shoulder History of colonoscopy History of esophagogastroduodenoscopy (EGD) History of total abdominal hysterectomy and bilateral salpingo-oophorectomy History of arthroscopy of right shoulder History of total knee arthroplasty History of foot surgery History of cholecystectomy History of cataract extraction History of lumbar fusion H/O thyroidectomy Family History Mother Arthritis Hypertension Father Lung cancer Hypertension Family/Other Family hx of colon cancer Unknown Allergies Breast cancer Hypertension Brother Cancer Heart disease Aunt Colorectal cancer Other No family history of adverse response to anesthesia No family history of bleeding disorder Denies family history of Ovarian cancer Prostate cancer Diabetes Hearing loss Myocardial infarction Stroke Asthma Social History Smoking Status: Never smoker Tobacco Type: Cigarettes Age Quit Using Tobacco: 26; Second Hand Exposure: No; Do You Dip or Chew Tobacco: No; Hx Alcohol Use: No Hx Substance Use: No Preferred Language: Khmer Communication Ability: Effective Communication Ability Comment: DEAF RIGHT EAR Visual Impairment: Limited Hearing Ability: Hard of Hearing 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 Beliefs That Will Affect Care: None marital status: / Current Living Situation: Alone Current Living Situation Comment: [place] current occupational status: retired current occupation: Retired How many Children do You have: 0 Other Information That Helps Us Care for You: No Feels Safe at Home: Yes Safety Concerns: Feels Safe At This Time Childhood Exposure to Second-Hand Smoke: Yes caffeine: Yes Dental Care, Regularly: Yes Physical Activity Frequency: Does not Exercise Physical Activity Frequency Comment: Hip problems Seatbelt Use: always Sunscreen Use: No Assistive Devices: Cane, Nebulizer and Walker Review of Systems Review of Systems: Please refer to hospitalist note. No additions or deletions Physical Exam Physical Exam: Constitutional: Patient appears to be of their stated age. Patient is in no apparent distress. Patient is well-developed. Eyes: Pupils are equal round and reactive to light. Conjunctivae are normal. Anicteric sclera. Ears nose, mouth and throat: Deferred. Neck: Trachea is midline. Visual inspection is normal. Respiratory: Diminished breath sounds at the bilateral bases with dullness to percussion Cardiovascular: Regular rate and rhythm. No murmurs. No edema. Gastrointestinal: Normal bowel sounds, soft, nontender and nondistended. No hepatosplenomegaly noted. Musculoskeletal: No cyanosis. Patient is able to move all extremities. Strength is 5 out of 5 in the upper and lower extremities. Skin: No rashes, warm dry and intact. Neurologic: No obvious focal neurological deficits seen. Psychiatric: Alert and oriented x3 with a euthymic affect. Results & Data Results & Data Vital Signs (Past 12 Hours) Vital Signs Temp Pulse Pulse Resp BP Pulse Ox O2 Del Method 04/17/23 11:46 36.9 C 61 19 94/56 L 92 Nasal Cannula 04/17/23 08:24 60 04/17/23 07:58 Nasal Cannula 04/17/23 07:23 36.6 C 60 16 97/60 L 93 Nasal Cannula 04/17/23 03:00 36.7 C 60 18 109/68 98 High Flow Nasal Cannula O2 Flow Rate 04/17/23 11:46 4 04/17/23 08:24 04/17/23 07:58 3 04/17/23 07:23 4 04/17/23 03:00 4 Critical Care Results & Data Vital Signs (Past 12 Hours) Vital Signs Temp Pulse Pulse Resp BP Pulse Ox O2 Del Method 04/17/23 11:46 36.9 C 61 19 94/56 L 92 Nasal Cannula 04/17/23 08:24 60 04/17/23 07:58 Nasal Cannula 04/17/23 07:23 36.6 C 60 16 97/60 L 93 Nasal Cannula 04/17/23 03:00 36.7 C 60 18 109/68 98 High Flow Nasal Cannula O2 Flow Rate 04/17/23 11:46 4 04/17/23 08:24 04/17/23 07:58 3 04/17/23 07:23 4 04/17/23 03:00 4 Lab & Micro Results (Past 24 Hours) RBC 3.17 M/uL (4.20-5.40) L 04/17/23 WBC 4.70 K/ul (4.8-10.8) L 04/17/23 Hgb 8.4 g/dl (12.0-16.0) L 04/17/23 Hct 27.3 % (37.0-47.0) L 04/17/23 MCV 86.1 fL (80.0-100.0) 04/17/23 MCH 26.5 pg (25.0-34.0) 04/17/23 MCHC 30.8 g/dL (32.0-36.0) L 04/17/23 RDW Standard Deviation 69.0 fL (36.4-46.3) H 04/17/23 RDW Coefficient of Variation 21.7 % (11.5-14.5) H 04/17/23 Plt Count 302 K/uL (130-400) 04/17/23 MPV 10.0 fL (9.4-12.4) 04/17/23 Neutrophils (%) (Auto) 61.4 % 04/17/23 Lymphocytes (%) (Auto) 23.6 % 04/17/23 Monocytes # (Auto) 0.48 K/uL (0.11-0.59) 04/17/23 Eosinophils # (Auto) 0.19 K/uL (0.00-0.50) 04/17/23 Immature Granulocyte % (Auto) 0.2 % 04/17/23 Neutrophils # (Auto) 2.88 K/uL (1.40-6.50) 04/17/23 Lymphocytes # (Auto) 1.11 K/uL (1.20-3.40) L 04/17/23 Monocytes # (Auto) 0.48 K/uL (0.11-0.59) 04/17/23 Eosinophils # (Auto) 0.19 K/uL (0.00-0.50) 04/17/23 Basophils # (Auto) 0.03 K/uL (0.00-0.20) 04/17/23 Immature Granulocyte # (Auto) 0.01 K/uL (0.01-0.20) 3 Anisocytosis Present 04/17/23 Na 139 mmol/L (136-145) 04/17/23 K 3.9 mmol/L (3.5-5.1) 04/17/23 Cl 103 mmol/L (98-107) 04/17/23 CO2 28 mmol/L (21-32) 04/17/23 Anion Gap 8 (3-11) 04/17/23 BUN 26 mg/dl (6-23) H 04/17/23 Creatinine 3.14 mg/dl (0.6-1.2) H 04/17/23 Estimated GFR ( Amer) 15.9 ml/min 04/17/23 Estimated GFR (Non-Af Amer) 13.7 ml/min 04/17/23 BUN/Creatinine Ratio 8.3 (10-20) L 04/17/23 Glu 93 mg/dl (70-99(Fasting)) 04/17/23 Ca 8.4 mg/dl (8.6-10.3) L 04/17/23 Phosphorus Level 4.6 mg/dl (2.5-4.9) 04/17/23 Albumin 2.9 gm/dl (3.4-5.0) L 04/17/23 Mg 2.5 mg/dl (1.7-2.4) H 04/17/23 05:28 Calcium Level 8.4 mg/dl (8.6-10.3) L 04/17/23 05:28 I & O Totals 24 Hours 04/16/23 04/17/23 04/18/23 06:59 06:59 06:59 Intake Total 790 / 790 360 / 360 Output Total 150 / 150 150 / 150 300 / 300 Balance -150 / -150 640 / 640 60 / 60 Cumulative 04/15/23 16:52 thru 04/17/23 11:49 Intake Total 1150 Output Total 600 Balance 550 RT Ventilator Mngmt (Last Documented) Ventilator Ordered Settings Respiratory Rate 19 04/17/23 11:46 Ventilator - PT Measurements Respiratory Rate 19 PG Care Time/CCT Total # of Minutes Spent Total Time Spent with Patient: Total time spent is greater than 50% in coordination of care (as documented) at patient's floor/unit and/or counseling patient: Coding Level of Care Code 51856 INT INP/OBS CARE 2/55MIN Diagnoses Heart failure with reduced ejection fraction I50.20 Acute respiratory failure with hypoxia J96.01 CKD (chronic kidney disease) stage 4, GFR 15-29 ml/min N18.4 Pleural effusion J90
--- NOTE | 2023-04-17 13:32 | Billing Data ---
Date of Service April 17, 2023 Coding Level of Care Code 77503 SUB INP/OBS CARE
--- NOTE | 2023-04-17 13:53 | CT Scan Report ---
CT SCAN OF THE CHEST WITHOUT IV CONTRAST CLINICAL HISTORY: Pleural effusions COMPARISON STUDY: Chest x-ray dated 04/16/2023. Chest CT dated 02/16/2017. TECHNIQUE: CT scan of the thorax was performed from the thoracic inlet to the upper abdomen. Images are reviewed in the axial, sagittal, and coronal planes. IV contrast was not administered for this ex amination as per the referring clinician. A dose lowering technique was utilized adhering to the cel[place]. The examination is degraded by streak artifact from the arms which could not be sandy vated above the chest. There is also motion artifact. CT DOSE: 932.55 mGy.cm FINDINGS: Thyroid: Atrophic. Thoracic aorta: The thoracic aorta is normal in caliber and demonstrates standard 3-vessel arch anato my. Heart: A cardiac pacemaker is present in the left chest wall. The heart is enlarged noting a small pe ricardial effusion. There are coronary artery calcifications. A 3.7 cm is again seen along the right heart border. Lungs and pleural spaces: There is mild to moderate pleural effusions with dependent consolidation. T here are at least 3 right apical pulmonary nodules measuring up to 4 mm (images #46 and #48). These a re unchanged from 02/16/2017 and of doubtful significance. Mediastinum: There is no mediastinal lymphadenopathy. Vanesa: Not well assessed without IV contrast. Axillae: There is no axillary lymphadenopathy. Upper abdomen: Partially visualized upper abdominal viscera is within normal limits. Skeletal structures: The skeletal structures are osteopenic. Degenerative change and hyperkyphosis is noted in the spine. A bone island is noted in the body of C4. No lytic or blastic bony lesions are s een. A left shoulder arthroplasty is in place. Advanced arthritic changes seen in the right shoulder. IMPRESSION: 1. Small to moderate pleural effusions with dependent consolidation. This likely represents atelectas is. Correlate clinically for evidence of a superimposed pneumonia. 2. Cardiomegaly and cardiac pacemaker. 3. Additional findings as above. ACT 112: Negative or not required by law. Electronically signed by: Peña Howard M.D. 04/17/2023 1:51 PM
[2023-04-17] MEDS: CETIRIZINE HCL 10 MG TABLET PO SCH (21:54)
[2023-04-17] MEDS: ATORVASTATIN 40 MG TAB PO SCH (21:55)
[2023-04-17] MEDS: NIFEdipine EXTENDED REL 30 MG TABCR PO SCH (21:56)
[2023-04-18] MEDS: ALBUTEROL HFA 8 GM INHALER INH PRN (03:17)
[2023-04-18] MEDS: LEVOTHYROXINE SODIUM 137 MCG TABLET PO SCH (05:25)
[2023-04-18 06:24] LABS: Basophils # (auto) 0.04 K/uL (0.00-0.20); Basophils % (auto) 0.8 %; Eosinophils # (auto) 0.13 K/uL (0.00-0.50); Eosinophils % (auto) 2.8 %; Hematocrit (blood only) 26.9 % (37.0-47.0); Hemoglobin 8.5 g/dl (12.0-16.0); Immature Granulocytes # (auto) 0.02 K/uL (0.01-0.20); Immature Granulocytes % (auto) 0.4 %; Lymphocytes % (auto) 23.3 %; Mean Corpuscular Hemoglobin 26.8 pg (25.0-34.0); Mean Corpuscular Hgb Conc 31.6 g/dL (32.0-36.0); Mean Corpuscular Volume 84.9 fL (80.0-100.0); Mean Platelet Volume 10.6 fL (9.4-12.4); Monocytes % (auto) 8.5 %; Neutrophils # (auto) 3.03 K/uL (1.40-6.50); Neutrophils % (auto) 64.2 %; Platelet Count 333 K/uL (130-400); RDW Coefficient of Variation 21.7 % (11.5-14.5); RDW Standard Deviation 67.1 fL (36.4-46.3); Red Blood Count 3.17 M/uL (4.20-5.40); White Blood Count 4.72 K/ul (4.8-10.8)
[2023-04-18 06:39] LABS: Calcium 8.4 mg/dl (8.6-10.3); Creatinine Clr Calc Pharmacy 19.8 ml/min; Est GFR (African American) 16.2 ml/min; Magnesium 2.7 mg/dl (1.7-2.4); Phosphorus 4.1 mg/dl (2.5-4.9); Potassium 4.2 mmol/L (3.5-5.1)
[2023-04-18 07:04] LABS: Anisocytosis Present; Rouleaux 1+
--- NOTE | 2023-04-18 07:26 | Hospitalist Progress Note ---
Date of Service April 18, 2023 Assessment & Plan (1) Pleural effusion: Plan: Patient is a 77-year-old female with a complex medical history who presents for acute CHF exacerbation. Patient is admitted to telemetry for diuresis and monitoring of renal function. HFmEF exacerbation/hypertension/history of PS V. tach/biventricular ICD presents/PAF/hypertension- -Patient admitted for dyspnea with recurrent pleural effusions -Bilateral pleural effusions noted that have increased in size since being drained at the beginning of the month. At that time fluid was exudative -Hold Bumex given elevation in creatine with diuresis; re-assess tomorrow -Continue amiodarone 200 mg daily, carvedilol 25 mg p.o. twice daily, mag oxide 400 mg p.o. twice daily, potassium chloride 20 mEq every morning and nifedipine extended release 90 mg at bedtime - Pulm consulted for consideration of repeat thoracentesis; Eliquis currently held - CT chest with Small to moderate pleural effusions with dependent consolidation. (2) Cardiorenal syndrome: Plan: Acute kidney injury on CKD stage IV- Creatinine 3.09 base 2.68 Follow serial renal function panel and magnesium level Not improvement with dieresis; hold further diereses and re-assess tomorrow (3) Asthma: Plan: Asthma/COPD- Continue usual inhalers Xopenex-nebulizer every 4 hours as needed Continue montelukast (4) Heart failure with mid-range ejection fraction (HFmEF): Plan: -See above -Renal insufficiency limits use of ESTELA/ARB/ARNI -Hold beta-blockade in the setting of hypotension (5) CKD (chronic kidney disease) stage 4, GFR 15-29 ml/min: Plan: - See cardiorenal syndrome (6) Acute kidney injury superimposed on CKD: Plan: - See cardiorenal syndrome (7) Paroxysmal ventricular tachycardia: Plan: - Continue amiodarone (8) Presence of biventricular implantable cardioverter-defibrillator (ICD): Plan: - Noted (9) Type II diabetes mellitus: Plan: - Continue basal bolus with sliding scale insulin -DM2 diet Plan Disposition: Continue with diuresis DVT prophylaxis: Eliquis held for thoracentesis Diet: DM 2, low-sodium CODE STATUS: Full code Admission and Anticipated Discharge Date Admission Date: April 15, 2023 Supervising Physician Co-Signing Physician Notes I personally examined the patient and verified all ellis points of history and exam, discussed case, and agree with decision making with Dr Ramírez breathing overall feels better. no new issues or complaints. Vitals noted, in general she is awake and alert pleasant no distress. HEENT normocephalic atraumatic mucous membranes moist. Breathing unlabored no accessory muscle use good effort. Skin shows no rashes no pallor or icterus. Neuro without focal deficits. CT chest reviewed (both films and report) Dyspnea, pleural effusionuncertain etiology, situation at surface of value seems to fit with CHF, but the effusion being exudative certainly does not; at the same time also diuresing her without a lot of significant improvement and a bit of a bump in her creatinine does not really seem to fit with a decompensated CHF picture either. hold further diuresis since CT chest without much pulmonary edema of significance. pulmonary for repeat thoracentesis once eliquis held long enough. creatinine has plateaued. Subjective Doing well this morning. States that her breathing has improved, back pain is also improved. Review of Systems Review of Systems: As per above Physical Exam Physical Exam: Constitutional: well-appearing, no acute distress HEENT: NCAT, no conjunctival injection CV: regular rhythm, no murmur appreciated, extremities well-perfused. no LE edema Resp: Lung sounds diminished at bases, no wheezes/rales/rhonchi appreciated, no increased work of breathing MSK: no gross deformities appreciated Skin: warm, dry, no rash appreciated Neuro: alert, oriented, no focal neurologic deficit appreciated Results & Data Results & Data Vital Signs (Past 12 Hours) Vital Signs Temp Pulse Pulse Resp BP Pulse Ox Pulse Ox 04/18/23 03:17 59 L 20 96 04/18/23 03:00 36.8 C 61 16 118/75 98 04/17/23 23:00 36.5 C 59 L 18 101/59 L 98 04/17/23 22:00 95 04/17/23 22:00 04/17/23 21:55 60 O2 Del Method O2 Del Method O2 Flow Rate O2 Flow Rate 04/18/23 03:17 Nasal Cannula 5 04/18/23 03:00 Nasal Cannula 04/17/23 23:00 Nasal Cannula 04/17/23 22:00 Nasal Cannula 3 04/17/23 22:00 Nasal Cannula 3 04/17/23 21:55 Resident Activity Tracking Resident Involvement: Resident Care Provided Care Provided: Adult Hospital Medicine (2) Cardiorenal syndrome Heart failure presence: with heart failure Hypertensive chronic kidney disease stage: stage 1-4 or unspecified chronic kidney disease Qualified Code(s): I13.0 - Hypertensive heart and chronic kidney disease with heart failure and stage 1 through stage 4 chronic kidney disease, or unspecified chronic kidney disease (9) Type II diabetes mellitus Chronic kidney disease stage: stage 4 (severe) 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 complication detail: with chronic kidney disease 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 complication status: with kidney complications 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 mcc insulin use: without mcc use Qualified Code(s): E11.22 - Type 2 diabetes mellitus with diabetic chronic kidney disease; N18.4 - Chronic kidney disease, stage 4 (severe)
[2023-04-18] MEDS: ACETAMINOPHEN 500 MG TAB PO SCH ×2 (08:57→21:56)
[2023-04-18] MEDS: AMIODARONE 200 MG TAB PO SCH (08:58)
[2023-04-18] MEDS: CALCITRIOL 0.25 MCG CAPSULE PO SCH (08:58)
[2023-04-18] MEDS: carvediloL 25 MG TAB PO SCH ×2 (08:58→21:58)
[2023-04-18] MEDS: FLUTICASONE/VILANTEROL 100/25MCG 14 PUFFS/INHALER INH SCH (08:59)
[2023-04-18] MEDS: DULoxetine HCL 60 MG CAP PO SCH (08:59)
[2023-04-18] MEDS: MAGNESIUM OXIDE 400 MG TAB PO SCH ×2 (08:59→22:00)
[2023-04-18] MEDS: OMEGA-3 (PURIFIED FISH OIL) 1 GM CAP PO SCH ×2 (08:59→22:01)
[2023-04-18] MEDS: MIRTAZAPINE TAB 15 MG TAB PO SCH (09:00)
[2023-04-18] MEDS: MONTELUKAST SODIUM 10 MG TABLET PO SCH (09:00)
[2023-04-18] MEDS: NITROGLYCERIN 0.4 MG/HR PATCH TD SCH (09:00)
[2023-04-18] MEDS: predniSONE 5 MG TAB PO SCH (09:01)
[2023-04-18] MEDS: PANTOprazole 40 MG TAB PO SCH (09:01)
[2023-04-18] MEDS: INSULIN ASPART PER UNIT CHARGE SC SCH ×4 (09:01→22:02)
[2023-04-18] MEDS: POTASSIUM CHLORIDE CRTAB 20 MEQ TABCR PO SCH (09:01)
--- NOTE | 2023-04-18 14:05 | Billing Data ---
Date of Service April 18, 2023 Coding Level of Care Code 38624 SUB INP/OBS CARE
[2023-04-18] MEDS: CETIRIZINE HCL 10 MG TABLET PO SCH (21:59)
[2023-04-18] MEDS: NIFEdipine EXTENDED REL 30 MG TABCR PO SCH (21:59)
[2023-04-18] MEDS: ATORVASTATIN 40 MG TAB PO SCH (22:00)
[2023-04-19] MEDS: LIDOCAINE 5% 1 PATCH TD PRN (02:38)
[2023-04-19] MEDS: ALBUTEROL HFA 8 GM INHALER INH PRN (04:55)
[2023-04-19] MEDS: LEVOTHYROXINE SODIUM 137 MCG TABLET PO SCH (05:43)
[2023-04-19 06:38] LABS: Hematocrit (blood only) 29.9 % (37.0-47.0); Hemoglobin 9.1 g/dl (12.0-16.0); Mean Corpuscular Hemoglobin 26.2 pg (25.0-34.0); Mean Corpuscular Hgb Conc 30.4 g/dL (32.0-36.0); Mean Corpuscular Volume 86.2 fL (80.0-100.0); Mean Platelet Volume 10.1 fL (9.4-12.4); Platelet Count 345 K/uL (130-400); RDW Standard Deviation 69.1 fL (36.4-46.3); Red Blood Count 3.47 M/uL (4.20-5.40); White Blood Count 4.55 K/ul (4.8-10.8)
[2023-04-19 06:44] LABS: BUN Creatinine Ratio 11.1 (10-20); Calcium 8.6 mg/dl (8.6-10.3); Creatinine Clr Calc Pharmacy 24.4 ml/min; Est GFR (African American) 20.7 ml/min; Est GFR (Non-African American) 17.9 ml/min; Magnesium 2.7 mg/dl (1.7-2.4); Potassium 4.2 mmol/L (3.5-5.1)
--- NOTE | 2023-04-19 07:12 | Hospitalist Progress Note ---
Date of Service April 19, 2023 Assessment & Plan (1) Pleural effusion: Plan: Patient is a 77-year-old female with a complex medical history who presents for acute CHF exacerbation. Patient is admitted to telemetry for diuresis and monitoring of renal function. HFmEF exacerbation/hypertension/history of PS V. tach/biventricular ICD presents/PAF/hypertension- -Patient admitted for dyspnea with recurrent pleural effusions -Bilateral pleural effusions noted that have increased in size since being drained at the beginning of the month. At that time fluid was exudative -Hold Bumex given elevation in creatine with diuresis; re-assess tomorrow -Continue amiodarone 200 mg daily, carvedilol 25 mg p.o. twice daily, mag oxide 400 mg p.o. twice daily, potassium chloride 20 mEq every morning and nifedipine extended release 90 mg at bedtime - Pulm consulted - Left thoracentesis today, consider right tomorrow for symptomatic relief. Eliquis currently held - pleural fluid studies pending - CT chest with Small to moderate pleural effusions with dependent consolidation. (2) Cardiorenal syndrome: Plan: Acute kidney injury on CKD stage IV- Creatinine 2.52;improvement from recent baseline Plan to continue to hold on further dieresis and continue trend creatine (3) Asthma: Plan: Asthma/COPD- Continue usual inhalers Xopenex-nebulizer every 4 hours as needed Continue montelukast (4) Heart failure with mid-range ejection fraction (HFmEF): Plan: -See above -Renal insufficiency limits use of ESTELA/ARB/ARNI -Hold beta-blockade in the setting of hypotension (5) CKD (chronic kidney disease) stage 4, GFR 15-29 ml/min: Plan: - See cardiorenal syndrome (6) Acute kidney injury superimposed on CKD: Plan: - See cardiorenal syndrome (7) Paroxysmal ventricular tachycardia: Plan: - Continue amiodarone (8) Presence of biventricular implantable cardioverter-defibrillator (ICD): Plan: - Noted (9) Type II diabetes mellitus: Plan: - Continue basal bolus with sliding scale insulin -DM2 diet Plan Disposition: Continue with diuresis DVT prophylaxis: Eliquis held for thoracentesis Diet: DM 2, low-sodium CODE STATUS: Full code Admission and Anticipated Discharge Date Admission Date: April 15, 2023 Supervising Physician Co-Signing Physician Notes I personally examined the patient and verified all ellis points of history and exam, discussed case, and agree with decision making with Dr Ramírez feels OK post thoracentesis. pulmonary input appreciated. Vitals noted, in general she is awake and alert pleasant no distress. HEENT normocephalic atraumatic mucous membranes moist. Breathing unlabored no accessory muscle use good effort. Skin shows no rashes no pallor or icterus. Neuro without focal deficits. Dyspnea, pleural effusionuncertain etiology, situation at surface of value seemed to fit with CHF initially, but the effusion being exudative certainly does not; at the same time also diuresing her without a lot of significant improvement and a bit of a bump in her creatinine does not really seem to fit with a decompensated CHF picture either. holding further diuresis since CT [address] without much pulmonary edema of significance (cr improving). repeat thoracentesis done today. otherwise as above Subjective No events overnight, seen at bedside this morning. Doing well. Still notes some right sided upper thoracic pain. Dyspnea improved. Review of Systems Review of Systems: As per above Physical Exam Physical Exam: Constitutional: well-appearing, no acute distress HEENT: NCAT, no conjunctival injection CV: regular rhythm, no murmur appreciated, extremities well-perfused. no LE edema Resp: Lung sounds diminished at bases, no wheezes/rales/rhonchi appreciated, no increased work of breathing MSK: no gross deformities appreciated Skin: warm, dry, no rash appreciated Neuro: alert, oriented, no focal neurologic deficit appreciated Results & Data Results & Data Vital Signs (Past 12 Hours) Vital Signs Temp Pulse Pulse Resp BP Pulse Ox Pulse Ox 04/19/23 04:00 37 C 60 18 106/63 96 04/19/23 00:00 36.9 C 66 18 92 04/18/23 22:10 60 18 96 04/18/23 22:05 04/18/23 22:00 95 04/18/23 21:55 60 04/18/23 20:00 36.6 C 59 L 18 119/70 97 O2 Del Method O2 Del Method O2 Flow Rate O2 Flow Rate 04/19/23 04:00 Nasal Cannula 2 04/19/23 00:00 Nasal Cannula 2 04/18/23 22:10 Nasal Cannula 3 04/18/23 22:05 Nasal Cannula 2 04/18/23 22:00 Nasal Cannula 2 04/18/23 21:55 04/18/23 20:00 Nasal Cannula 2 Resident Activity Tracking Resident Involvement: Resident Care Provided Care Provided: Adult Hospital Medicine (2) Cardiorenal syndrome Heart failure presence: with heart failure Hypertensive chronic kidney d isease stage: stage 1-4 or unspecified chronic kidney disease Qualified Code(s): I13.0 - Hypertensive heart and chronic kidney disease with heart failure and stage 1 through stage 4 chronic kidney disease, or unspecified chronic kidney disease (9) Type II diabetes mellitus Chronic kidney disease stage: stage 4 (severe) 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 complication detail: with chronic kidney disease 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 complication status: with kidney complications 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 grinder insulin use: without grinder use Qualified Code(s): E11.22 - Type 2 diabetes mellitus with diabetic chronic kidney disease; N18.4 - Chronic kidney disease, stage 4 (severe)
[2023-04-19] MEDS: INSULIN ASPART PER UNIT CHARGE SC SCH ×4 (08:35→20:45)
[2023-04-19] MEDS: AMIODARONE 200 MG TAB PO SCH (08:36)
[2023-04-19] MEDS: CALCITRIOL 0.25 MCG CAPSULE PO SCH (08:36)
[2023-04-19] MEDS: ACETAMINOPHEN 500 MG TAB PO SCH (08:36)
[2023-04-19] MEDS: carvediloL 25 MG TAB PO SCH ×2 (08:36→20:42)
[2023-04-19] MEDS: FLUTICASONE/VILANTEROL 100/25MCG 14 PUFFS/INHALER INH SCH (08:37)
[2023-04-19] MEDS: DULoxetine HCL 60 MG CAP PO SCH (08:37)
[2023-04-19] MEDS: OMEGA-3 (PURIFIED FISH OIL) 1 GM CAP PO SCH ×2 (08:37→20:41)
[2023-04-19] MEDS: MIRTAZAPINE TAB 15 MG TAB PO SCH (08:38)
[2023-04-19] MEDS: MAGNESIUM OXIDE 400 MG TAB PO SCH ×2 (08:38→20:40)
[2023-04-19] MEDS: MONTELUKAST SODIUM 10 MG TABLET PO SCH (08:38)
[2023-04-19] MEDS: NITROGLYCERIN 0.4 MG/HR PATCH TD SCH (08:38)
[2023-04-19] MEDS: POTASSIUM CHLORIDE CRTAB 20 MEQ TABCR PO SCH (08:39)
[2023-04-19] MEDS: PANTOprazole 40 MG TAB PO SCH (08:39)
[2023-04-19] MEDS: predniSONE 5 MG TAB PO SCH (08:39)
--- NOTE | 2023-04-19 10:56 | Pulmonology Progress Note ---
Date of Service April 19, 2023 Assessment & Plan (1) Heart failure with reduced ejection fraction: (2) Acute respiratory failure with hypoxia: (3) CKD (chronic kidney disease) stage 4, GFR 15-29 ml/min: (4) Pleural effusion: Plan 77-year-old female with a history of asthma, ischemic cardiomyopathy, atrial fibrillation and ventricular tachycardia who is currently hospitalized due to an acute exacerbation of heart failure with reaccumulation of pleural fluid. Prior characterization demonstrate lymphocytic exudate with negative cultures and cytology. She continues to complain of some chest congestion and her anticoagulation has been held. Recommendations: 1. Bilateral pleural effusions: Will have the patient undergo ultrasound-guided catheter thoracentesis on the left to see if the fluid demonstrates similar characteristics as prior fluid on the right. Microbiologic and cytologic analysis of the fluid will be requested. She requests that the right side also be sampled. Advised her that we can continue to hold her anticoagulation and reassess tomorrow for potential right-sided catheter thoracentesis to offer her maximum relief. Will send fluid for cholesterol as diuresed transudates may appear exudative and the bloody nature of the effusions could be coming from her systemic anticoagulation. Further recommendations based on characterization of pleural fluid. 2. Dyspnea: Suspect related to heart failure: Management per primary service and cardiology. Agree with plans for diuresis. Will see again on Thursday to assess for thoracentesis. Please contact sooner if questions or issues. Admission and Anticipated Discharge Date Admission Date: April 15, 2023 Subjective Patient seen and examined. EMR reviewed. The patient states that her breathing is about the same. She continues to complain of some congestion in her chest. She is on room air. She is not coughing or wheezing. She is interested in pursuing thoracentesis. Her anticoagulation has been appropriately held. She denies fevers chills night sweats or other constitutional symptoms. No chest pain or palpitations. Review of Systems 2 Review of Systems: All systems reviewed & are unremarkable except as noted in Subjective Physical Exam 2 Physical Exam: Constitutional: Patient appears to be of their stated age. Patient is in no apparent distress. Patient is well-developed. Eyes: Pupils are equal round and reactive to light. Conjunctivae are normal. Anicteric sclera. Ears nose, mouth and throat: Deferred. Neck: Trachea is midline. Visual inspection is normal. Respiratory: Diminished breath sounds at the bilateral bases with dullness to percussion Cardiovascular: Regular rate and rhythm. No murmurs. No edema. Gastrointestinal: Normal bowel sounds, soft, nontender and nondistended. No hepatosplenomegaly noted. Musculoskeletal: No cyanosis. Patient is able to move all extremities. Strength is 5 out of 5 in the upper and lower extremities. Skin: No rashes, warm dry and intact. Neurologic: No obvious focal neurological deficits seen. Psychiatric: Alert and oriented x3 with a euthymic affect. Results & Data Results & Data Vital Signs (Past 12 Hours) Vital Signs Temp Pulse Pulse Resp BP Pulse Ox O2 Del Method 04/19/23 08:20 36.8 C 60 18 116/68 96 Nasal Cannula 04/19/23 07:06 60 04/19/23 04:00 37 C 60 18 106/63 96 Nasal Cannula 04/19/23 00:00 36.9 C 66 18 92 Nasal Cannula O2 Flow Rate 04/19/23 08:20 2 04/19/23 07:06 04/19/23 04:00 2 04/19/23 00:00 2 Laboratory Results 04/19/23 06:10 04/19/23 06:10 Diagnostic Findings No new imaging PG Care Time/CCT Total # of Minutes Spent Total Time Spent with Patient: Total time spent is greater than 50% in coordination of care (as documented) at patient's floor/unit and/or counseling patient: Coding Level of Care Code 00000 SUB INP/OBS CARE 3/50MIN Diagnoses Heart failure with reduced ejection fraction I50.20 Acute respiratory failure with hypoxia J96.01 CKD (chronic kidney disease) stage 4, GFR 15-29 ml/min N18.4 Pleural effusion J90
--- NOTE | 2023-04-19 10:57 | Procedure Note ---
Procedure Note Date of Service April 19, 2023 Note Procedure: Diagnostic therapeutic ultrasound-guided catheter thoracentesis, left Video Game Repair Technician: Dr. Epi Garcia Indication: Pleural effusion Consent: Signed by patient and verified with timeout prior to procedure Anesthesia: 8 mL's 1% lidocaine without epinephrine local. Procedure: Consent was verified and timeout performed. Appropriate imaging studies were reviewed prior to the procedure. Patient was placed in a seated position and limited thoracic ultrasound was performed of the bilateral chest. Moderate- sized bilateral effusions with compressive atelectasis were noted. The left side appeared slightly larger and given that the right side was previously sampled, we elected to pursue left-sided thoracentesis at this time. Site appropriate for thoracentesis was selected. The skin was prepped and draped in normal sterile fashion. Lidocaine was used for local analgesia. Fluid was aspirated via the finder needle. A small skin apurva was made with the scalpel and the catheter over the needle apparatus was advanced over the rib into the pleural space. Using the syringe one-way valve system, a total of 1400 mL's of bloody fluid was removed. Procedure was terminated due to inability to withdraw additional fluid. The catheter was removed and observed to be intact. A sterile dressing was applied. Post procedure chest x-ray was ordered. Postthoracentesis ultrasound was performed with lung sliding noted and trivial residual pleural fluid on the left Fluid was sent for cytology, cell count differential, Gram stain and culture, LDH, pH, total protein, glucose, and cholesterol. The patient tolerated the procedure well without obvious complication Coding CPT Codes Pulmonary/Thoracic - Pulmonary and Thoracic: 41644 Thoracentesis w imaging ([id number]) [facility] [place] Codes (Charges) Pulmonary/Thoracic Procedure 1: Pulmonary and Thoracic: 31446 Thoracentesis w imaging
--- NOTE | 2023-04-19 11:14 | XRay Report ---
XR chest 1V portable CLINICAL HISTORY: S/P Thoracentesis TECHNIQUE: Single frontal radiograph of the chest was obtained. Comparison: Comparison is made to chest radiograph 04/16/2023 FINDINGS: Pacemaker defibrillator is seen. Cardiomegaly is noted. Bilateral lower lung predominant airspace opa cities are seen. Moderate right and small left pleural effusions are seen. IMPRESSION: Moderate right and small left pleural effusions, the right effusion appears slightly increased from p rior exam. There is underlying atelectasis. Stable cardiomegaly. ACT 112: Negative or not required by law. Electronically signed by: José Miguel Hernandes M.D. 04/19/2023 11:13 AM
[2023-04-19 11:16] LABS: Appearance Pleural Fluid Bloody; Color Pleural Fluid Red; RBC Pleural Fluid Auto 147000 /uL; Source Pleural Fluid Left Lung; WBC Pleural Fluid Auto 768 /uL
[2023-04-19 11:29] LABS: Total Protein Pleural Fluid 4.5 gm/dl
[2023-04-19 11:43] LABS: Lymphocytes, Fluid 18 %; Mono,Macrophage,Mesothelial 71 %; Neutrophils, Fluid 11 %
[2023-04-19] MEDS: ACETAMINOPHEN 325 MG TAB PO PRN (12:33)
[2023-04-19] MEDS ORDERED: ACETAMINOPHEN 500 MG TAB PO PRN (14:23)
[2023-04-19] MEDS ORDERED: HYDROmorphone INJ 0.5 MG/0.5 ML SYR IV STA (15:08)
--- NOTE | 2023-04-19 17:45 | Billing Data ---
Date of Service April 19, 2023 Coding Level of Care Code 84975 SUB INP/OBS CARE
[2023-04-19] MEDS: ATORVASTATIN 40 MG TAB PO SCH (20:41)
[2023-04-19] MEDS: CETIRIZINE HCL 10 MG TABLET PO SCH (20:41)
[2023-04-19] MEDS: NIFEdipine EXTENDED REL 30 MG TABCR PO SCH (20:42)
[2023-04-20] MEDS: LEVOTHYROXINE SODIUM 137 MCG TABLET PO SCH (05:29)
[2023-04-20 05:59] LABS: Hematocrit (blood only) 31.5 % (37.0-47.0); Hemoglobin 9.8 g/dl (12.0-16.0); Mean Corpuscular Hemoglobin 26.4 pg (25.0-34.0); Mean Corpuscular Hgb Conc 31.1 g/dL (32.0-36.0); Mean Corpuscular Volume 84.9 fL (80.0-100.0); Mean Platelet Volume 9.8 fL (9.4-12.4); Platelet Count 351 K/uL (130-400); RDW Standard Deviation 68.1 fL (36.4-46.3); Red Blood Count 3.71 M/uL (4.20-5.40); White Blood Count 4.21 K/ul (4.8-10.8)
[2023-04-20 06:14] LABS: BUN Creatinine Ratio 10.3 (10-20); Calcium 8.8 mg/dl (8.6-10.3); Creatinine Clr Calc Pharmacy 26.1 ml/min; Est GFR (African American) 22.7 ml/min; Est GFR (Non-African American) 19.6 ml/min; Magnesium 2.6 mg/dl (1.7-2.4); Potassium 4.4 mmol/L (3.5-5.1)
--- NOTE | 2023-04-20 07:35 | Hospitalist Progress Note ---
Date of Service April 20, 2023 Assessment & Plan (1) Pleural effusion: Plan: Patient is a 77-year-old female with a complex medical history who presents for acute CHF exacerbation. Patient is admitted to telemetry for diuresis and monitoring of renal function. HFmEF exacerbation/hypertension/history of PS V. tach/biventricular ICD presents/PAF/hypertension- -Patient admitted for dyspnea with recurrent pleural effusions -Bilateral pleural effusions noted that have increased in size since being drained at the beginning of the month. At that time fluid was exudative -Hold Bumex given elevation in creatine with diuresis; re-assess tomorrow -Continue amiodarone 200 mg daily, carvedilol 25 mg p.o. twice daily, mag oxide 400 mg p.o. twice daily, potassium chloride 20 mEq every morning and nifedipine extended release 90 mg at bedtime - Pulm consulted - Left thoracentesis 04/19, plan for right 04/20 for symptomatic relief. Eliquis currently held - pleural fluid studies pending - CT chest with Small to moderate pleural effusions with dependent consolidation. (2) Cardiorenal syndrome: Plan: Acute kidney injury on CKD stage IV- Creatinine 2.52;improvement from recent baseline Plan to continue to hold on further dieresis and continue trend creatine (3) Asthma: Plan: Asthma/COPD- Continue usual inhalers Xopenex-nebulizer every 4 hours as needed Continue montelukast (4) Heart failure with mid-range ejection fraction (HFmEF): Plan: -See above -Renal insufficiency limits use of ESTELA/ARB/ARNI -Hold beta-blockade in the setting of hypotension (5) CKD (chronic kidney disease) stage 4, GFR 15-29 ml/min: Plan: - See cardiorenal syndrome (6) Acute kidney injury superimposed on CKD: Plan: - See cardiorenal syndrome (7) Paroxysmal ventricular tachycardia: Plan: - Continue amiodarone (8) Presence of biventricular implantable cardioverter-defibrillator (ICD): Plan: - Noted (9) Type II diabetes mellitus: Plan: - Continue basal bolus with sliding scale insulin -DM2 diet Plan Disposition: Continue with diuresis DVT prophylaxis: Eliquis held for thoracentesis Diet: DM 2, low-sodium CODE STATUS: Full code Admission and Anticipated Discharge Date Admission Date: April 15, 2023 Supervising Physician Co-Signing Physician Notes I also saw the patient with Dr. Ramírez and confirmed ellis portions of the history and physical examination. I agree with the impression and plan as noted in her documentation above. This afternoon, patient was without new complaint. She states that she feels a little bit improved post thoracentesis yesterday; she is hoping for repeat (contralateral side) thoracentesis today, although pulmonology had not seen her at the time of our exam. Her daily weights have been about the same; I's and O's about even (+100) 107/66, 63, 19, 36.8, 95% on nasal cannula 3 L/min Pleasant. She talks in full sentences without pause No increased work of breathing appreciated. Extremities without edema Data Hemoglobin 9.8, platelet count 351 Sodium 138, potassium 4.4, BUN 24, creatinine 2.34 Impression and plan Heart failure with reduced ejection fraction Acute respiratory failure with hypoxia Pleural effusion Seems euvolemic today, however do note that Bumex is on hold Given her reduced ejection fraction, will need to resume diuresis soon Anticoagulant remains on hold pending repeat thoracentesis, perhaps this afternoon Pulmonary consult appreciated Subjective Pt seen at bedside this morning. Improvement in breathing after thoracentesis, but still notes some pain on right side of chest. Review of Systems Review of Systems: As per above Physical Exam Physical Exam: Constitutional: well-appearing, no acute distress HEENT: NCAT, no conjunctival injection CV: regular rhythm, no murmur appreciated, extremities well-perfused. no LE edema Resp: Lung sounds diminished at bases, no wheezes/rales/rhonchi appreciated, no increased work of breathing MSK: no gross deformities appreciated Skin: warm, dry, no rash appreciated Neuro: alert, oriented, no focal neurologic deficit appreciated Results & Data Results & Data Vital Signs (Past 12 Hours) Vital Signs Temp Pulse Pulse Resp BP Pulse Ox Pulse Ox 04/20/23 03:16 36.9 C 60 18 101/61 90 04/19/23 22:30 37.2 C 59 L 18 118/65 96 04/19/23 22:07 60 04/19/23 22:00 97 04/19/23 20:45 O2 Del Method O2 Del Method O2 Flow Rate O2 Flow Rate 04/20/23 03:16 Nasal Cannula 2 04/19/23 22:30 Nasal Cannula 2 04/19/23 22:07 04/19/23 22:00 Nasal Cannula 2 04/19/23 20:45 Nasal Cannula 2 Resident Activity Tracking Resident Involvement: Resident Care Provided Care Provided: Adult Hospital Medicine (2) Cardiorenal syndrome Heart failure presence: with heart failure Hypertensive chronic kidney disease stage: stage 1-4 or unspecified chronic kidney disease Qualified Code(s): I13.0 - Hypertensive heart and chronic kidney disease with heart failure and stage 1 through stage 4 chronic kidney disease, or unspecified chronic kidney disease (9) Type II diabetes mellitus Chronic kidney disease stage: stage 4 (severe) 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 complication detail: with chronic kidney disease 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 complication status: with kidney complications 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 magnet placer insulin use: without mcc use Qualified Code(s): E11.22 - Type 2 diabetes mellitus with diabetic chronic kidney disease; N18.4 - Chronic kidney disease, stage 4 (severe)
[2023-04-20] MEDS: INSULIN ASPART PER UNIT CHARGE SC SCH ×4 (08:32→21:44)
[2023-04-20] MEDS: AMIODARONE 200 MG TAB PO SCH (08:34)
[2023-04-20] MEDS: CALCITRIOL 0.25 MCG CAPSULE PO SCH (08:35)
[2023-04-20] MEDS: MAGNESIUM OXIDE 400 MG TAB PO SCH ×2 (08:35→21:36)
[2023-04-20] MEDS: DULoxetine HCL 60 MG CAP PO SCH (08:35)
[2023-04-20] MEDS: OMEGA-3 (PURIFIED FISH OIL) 1 GM CAP PO SCH ×2 (08:35→21:36)
[2023-04-20] MEDS: MONTELUKAST SODIUM 10 MG TABLET PO SCH (08:36)
[2023-04-20] MEDS: MIRTAZAPINE TAB 15 MG TAB PO SCH (08:36)
[2023-04-20] MEDS: FLUTICASONE/VILANTEROL 100/25MCG 14 PUFFS/INHALER INH SCH (08:36)
[2023-04-20] MEDS: NITROGLYCERIN 0.4 MG/HR PATCH TD SCH (08:37)
[2023-04-20] MEDS: PANTOprazole 40 MG TAB PO SCH (08:37)
[2023-04-20] MEDS: POTASSIUM CHLORIDE CRTAB 20 MEQ TABCR PO SCH (08:37)
[2023-04-20] MEDS: predniSONE 5 MG TAB PO SCH (08:38)
[2023-04-20] MEDS: carvediloL 25 MG TAB PO SCH ×2 (08:41→21:36)
--- NOTE | 2023-04-20 14:23 | Pulmonology Progress Note ---
Date of Service April 20, 2023 Assessment & Plan (1) Heart failure with reduced ejection fraction: (2) Acute respiratory failure with hypoxia: (3) CKD (chronic kidney disease) stage 4, GFR 15-29 ml/min: (4) Pleural effusion: Plan 77-year-old female with a history of asthma, ischemic cardiomyopathy, atrial fibrillation and ventricular tachycardia who is currently hospitalized due to an acute exacerbation of heart failure with reaccumulation of pleural fluid. Prior characterization demonstrate lymphocytic exudate with negative cultures and cytology. She continues to complain of some chest congestion and her anticoagulation has been held. CT chest 04/17/2023 personally reviewed: Right apical pleural scarring Bilateral pleural effusion with dependent atelectasis, right greater than left Cardiomegaly Anterior mediastinal lymphadenopathy -- Acute hypoxic respiratory failure Likely secondary to CHF with bilateral pleural effusion S/p left-sided thoracentesis 04/19/2023, exudative, bloody, 18% lymphocytes Patient did have right-sided thoracentesis on 04/04/2023 which was again bloody and exudative, 95% lymphocytes Lymphocytic pleural effusion can be seen in bloody/hemorrhagic pleural effusion. -- A-fib On apixaban at home Last dose of apixaban was on 04/16/2023 Plan: For thoracentesis later today Continue to hold apixaban Please note the above document was generated using voice recognition software. It may contain grammatical, syntax or spelling errors.Any formal questions or concerns about the content, text or information contained within the body of this dictation should be directly addressed to the provider for clarification. Admission and Anticipated Discharge Date Admission Date: April 15, 2023 Subjective Patient seen and examined at bedside. No acute distress Case was discussed with outgoing vessel slag worker In the time of examination patient complains of mild chest discomfort on the left. Which has been going on since the thoracentesis. Not pleuritic. Overall her breathing is improved since thoracentesis but she does feel heaviness on the right side Denies any nausea vomiting Fair appetite She is not on oxygen at home. Review of Systems 2 Review of Systems: All systems reviewed & are unremarkable except as noted in Subjective Physical Exam 2 Physical Exam: Constitutional: No acute distress HEENT: EOMI, PERRLA Respiratory system: Decreased air entry on the right side, no wheeze, no rhonchi, positive crackles bilateral lower lobes CVS: S1-S2 positive, no murmurs or gallops, accentuated P2 Abdomen: Soft, nontender, nondistended, positive bowel sounds x4, obese Extremities: +2 pulses bilaterally radialis/ dorsalis pedis, no cyanosis, no edema Neuro: Awake alert oriented x3 Psych: Normal mood and affect G/U: No [place] Skin: no rashes, warm and dry Lymphatic: no cervical or axillary lymphadenopathy Results & Data Results & Data Vital Signs (Past 12 Hours) Vital Signs Temp Pulse Pulse Resp BP Pulse Ox O2 Del Method 04/20/23 11:46 36.8 C 63 19 107/66 95 Nasal Cannula 04/20/23 08:35 102/58 L 04/20/23 08:13 Nasal Cannula 04/20/23 07:56 36.7 C 64 18 99/54 L 93 Nasal Cannula 04/20/23 07:23 60 04/20/23 03:16 36.9 C 60 18 101/61 90 Nasal Cannula O2 Flow Rate 04/20/23 11:46 3 04/20/23 08:35 04/20/23 08:13 3 04/20/23 07:56 3 04/20/23 07:23 04/20/23 03:16 2 Laboratory Results 04/20/23 05:43 04/20/23 05:43 PG Care Time/CCT Total # of Minutes Spent Total Time Spent with Patient: Total time spent is greater than 50% in coordination of care (as documented) at patient's floor/unit and/or counseling patient: Coding Level of Care Code 92659 SUB INP/OBS CARE 3/50MIN Diagnoses Heart failure with reduced ejection fraction I50.20 Acute respiratory failure with hypoxia J96.01 CKD (chronic kidney disease) stage 4, GFR 15-29 ml/min N18.4 Pleural effusion J90
--- NOTE | 2023-04-20 17:12 | Procedure Note ---
Procedure Note Date of Service April 20, 2023 Note Procedure: Diagnostic therapeutic ultrasound-guided catheter thoracentesis Chemistry Department Chair: Dr. Edil Means Indication: Right pleural effusion Consent: Signed by patient and verified with timeout prior to procedure Anesthesia: 1% lidocaine without epinephrine local. Procedure: Consent was verified and timeout performed. Appropriate imaging studies were reviewed prior to the procedure. Patient was placed in a seated position and limited thoracic ultrasound was performed of the right chest. See separate imaging. Appropriate site above the diaphragm for thoracentesis was selected. The skin was prepped and draped in normal sterile fashion. Lidocaine was used for local analgesia. Fluid was aspirated via the finder needle. A small skin apurva was made with the scalpel and the catheter over the needle apparatus was advanced over the rib into the pleural space. Using the syringe one-way valve system, a total of 1450 mL's of serosanguineous fluid was removed. The catheter was removed and observed to be intact. A sterile dressing was applied. Post procedure chest x-ray was ordered. Fluid was sent for labs, culture and cytology. Complications: None Blood loss: Less than 1 cc Coding CPT Codes Pulmonary/Thoracic - Pulmonary and Thoracic: 59125 Thoracentesis w imaging ([id number]) [facility] [place] Procedure Codes (Charges) Pulmonary/Thoracic Procedure 1: Pulmonary and Thoracic: 12856 Thoracentesis w imaging
--- NOTE | 2023-04-20 17:29 | XRay Report ---
XR chest 1V portable CLINICAL HISTORY: S/P Thoracentesis COMPARISON STUDY: Chest CT April 17, 2023. Chest radiograph April 19, 2023. FINDINGS: There is no pneumothorax following right thoracentesis. The right pleural effusion has sign ificantly decreased in size. Small left pleural effusion has slightly increased in size. Left subclav everett pacer/AICD is in place. Cardiomegaly is noted. Pulmonary vascular congestion has slightly improve d. Left shoulder arthroplasty is incidentally noted. IMPRESSION: 1. No pneumothorax following right thoracentesis. Significant decrease in size of the right pleural e ffusion. 2. Mild increase in size of the small left pleural effusion. ACT 112: Negative or not required by law. Electronically signed by: Alfred Avendaño M.D. 04/20/2023 5:27 PM
[2023-04-20 17:59] LABS: Albumin Level 3.2 gm/dl (3.4-5.0); Bilirubin,Total 0.4 mg/dl (0.2-1.0); Total Protein 7.8 gm/dl (6.0-8.3)
[2023-04-20 18:16] LABS: Total Protein Pleural Fluid 4.7 gm/dl
[2023-04-20 18:30] LABS: Lymphocytes, Fluid 36 %; Mono,Macrophage,Mesothelial 50 %; Neutrophils, Fluid 14 %
[2023-04-20 18:31] LABS: Appearance Pleural Fluid Hazy; Color Pleural Fluid Amber; RBC Pleural Fluid Auto 35000 /uL; Source Pleural Fluid Left Lung; WBC Pleural Fluid Auto 569 /uL
[2023-04-20] MEDS: CETIRIZINE HCL 10 MG TABLET PO SCH (21:35)
[2023-04-20] MEDS: APIXABAN 5 MG TABLET PO SCH (21:37)
[2023-04-20] MEDS: NIFEdipine EXTENDED REL 30 MG TABCR PO SCH (21:37)
[2023-04-20] MEDS: ATORVASTATIN 40 MG TAB PO SCH (21:39)
[2023-04-21] MEDS: ALBUTEROL HFA 8 GM INHALER INH PRN (01:25)
[2023-04-21] MEDS: LEVOTHYROXINE SODIUM 137 MCG TABLET PO SCH (05:23)
[2023-04-21 05:43] LABS: Mean Corpuscular Hemoglobin 26.2 pg (25.0-34.0); Mean Corpuscular Volume 87.2 fL (80.0-100.0); Mean Platelet Volume 9.7 fL (9.4-12.4); Platelet Count 317 K/uL (130-400); RDW Coefficient of Variation 22.1 % (11.5-14.5); RDW Standard Deviation 70.2 fL (36.4-46.3); Red Blood Count 3.44 M/uL (4.20-5.40); White Blood Count 5.55 K/ul (4.8-10.8)
[2023-04-21 06:02] LABS: Calcium 8.1 mg/dl (8.6-10.3); Creatinine Clr Calc Pharmacy 25.8 ml/min; Est GFR (African American) 22.4 ml/min; Est GFR (Non-African American) 19.4 ml/min; Magnesium 2.5 mg/dl (1.7-2.4); Potassium 4.5 mmol/L (3.5-5.1)
--- NOTE | 2023-04-21 08:35 | Pulmonology Progress Note ---
Date of Service April 21, 2023 Assessment & Plan (1) Heart failure with reduced ejection fraction: (2) Acute respiratory failure with hypoxia: (3) CKD (chronic kidney disease) stage 4, GFR 15-29 ml/min: (4) Pleural effusion: Plan 77-year-old female with a history of asthma, ischemic cardiomyopathy, atrial fibrillation and ventricular tachycardia who is currently hospitalized due to an acute exacerbation of heart failure with reaccumulation of pleural fluid. Prior characterization demonstrate lymphocytic exudate with negative cultures and cytology. She continues to complain of some chest congestion and her anticoagulation has been held. CT chest 04/17/2023 personally reviewed: Right apical pleural scarring Bilateral pleural effusion with dependent atelectasis, right greater than left Cardiomegaly Anterior mediastinal lymphadenopathy -- Acute hypoxic respiratory failure Likely secondary to CHF with bilateral pleural effusion S/p left-sided thoracentesis 04/19/2023, exudative, bloody, 18% lymphocytes Patient did have right-sided thoracentesis on 04/04/2023 which was again bloody and exudative, 95% lymphocytes S/p repeat right-sided thoracentesis 04/20/2023, 36% lymphocytes, exudative as per protein Pleural fluid: LDH 73, total protein 4.7, RBC 35,000 Serum: LDH 129, protein 7.8 Lymphocytic pleural effusion can be seen in bloody/hemorrhagic pleural effusion. -- A-fib On apixaban at home Last dose of apixaban was on 04/16/2023 Plan: Chest x-ray from today shows normal right-sided pleural effusion and small left- sided pleural effusion Okay to resume apixaban No further recommendation from pulmonary perspective Would recommend adequate diuresis, probability of getting pleural effusion again will be there if not adequately diuresed No further recommendation from pulmonary perspective, will sign off Please call directly with any questions Please note the above document was generated using voice recognition software. It may contain grammatical, syntax or spelling errors.Any formal questions or concerns about the content, text or information contained within the body of this dictation should be directly addressed to the provider for clarification. Admission and Anticipated Discharge Date Admission Date: April 15, 2023 Subjective Patient seen and examined at bedside. No acute distress, no adverse events overnight She was saturating well on room air Denied any headache Shortness of breath is significantly improved Denies any chest pain, no nausea vomiting Fair appetite Review of Systems 2 Review of Systems: All systems reviewed & are unremarkable except as noted in Subjective Physical Exam 2 Physical Exam: Constitutional: No acute distress HEENT: EOMI, PERRLA Respiratory system: Good air entry bilaterally, no wheeze, no rhonchi, positive crackles bilateral lower lobes CVS: S1-S2 positive, no murmurs or gallops, accentuated P2 Abdomen: Soft, nontender, nondistended, positive bowel sounds x4, obese Extremities: +2 pulses bilaterally radialis/ dorsalis pedis, no cyanosis, no edema Neuro: Awake alert oriented x3 Psych: Normal mood and affect G/U: No Issa Skin: no rashes, warm and dry Lymphatic: no cervical or axillary lymphadenopathy Results & Data Results & Data Vital Signs (Past 12 Hours) Vital Signs Temp Pulse Pulse Resp BP Pulse Ox Pulse Ox 04/21/23 08:21 36.4 C L 68 20 118/65 94 04/21/23 08:09 60 04/21/23 08:06 04/21/23 03:40 36.7 C 77 16 114/67 99 04/20/23 22:35 36.7 C 104 H 18 122/74 94 04/20/23 22:01 60 04/20/23 22:00 99 04/20/23 21:45 O2 Del Method O2 Del Method O2 Flow Rate O2 Flow Rate 04/21/23 08:21 Room Air 04/21/23 08:09 04/21/23 08:06 Room Air, Nasal Cannula 1 04/21/23 03:40 Nasal Cannula 1 04/20/23 22:35 Nasal Cannula 2 04/20/23 22:01 04/20/23 22:00 Nasal Cannula 2 04/20/23 21:45 Nasal Cannula 2 Laboratory Results 04/21/23 05:24 04/21/23 05:24 PG Care Time/CCT Total # of Minutes Spent Total Time Spent with Patient: Total time spent is greater than 50% in coordination of care (as documented) at patient's floor/unit and/or counseling patient: Coding Level of Care Code 39692 SUB INP/OBS CARE 2/35MIN Diagnoses Heart failure with reduced ejection fraction I50.20 Acute respiratory failure with hypoxia J96.01 CKD (chronic kidney disease) stage 4, GFR 15-29 ml/min N18.4 Pleural effusion J90
[2023-04-21] MEDS: INSULIN ASPART PER UNIT CHARGE SC SCH ×3 (09:09→17:00)
[2023-04-21] MEDS: APIXABAN 5 MG TABLET PO SCH (09:19)
[2023-04-21] MEDS: AMIODARONE 200 MG TAB PO SCH (09:19)
[2023-04-21] MEDS: CALCITRIOL 0.25 MCG CAPSULE PO SCH (09:19)
[2023-04-21] MEDS: FLUTICASONE/VILANTEROL 100/25MCG 14 PUFFS/INHALER INH SCH (09:20)
[2023-04-21] MEDS: DULoxetine HCL 60 MG CAP PO SCH (09:20)
[2023-04-21] MEDS: carvediloL 25 MG TAB PO SCH (09:20)
[2023-04-21] MEDS: OMEGA-3 (PURIFIED FISH OIL) 1 GM CAP PO SCH (09:20)
[2023-04-21] MEDS: MONTELUKAST SODIUM 10 MG TABLET PO SCH (09:21)
[2023-04-21] MEDS: MIRTAZAPINE TAB 15 MG TAB PO SCH (09:21)
[2023-04-21] MEDS: MAGNESIUM OXIDE 400 MG TAB PO SCH (09:21)
[2023-04-21] MEDS: POTASSIUM CHLORIDE CRTAB 20 MEQ TABCR PO SCH (09:22)
[2023-04-21] MEDS: predniSONE 5 MG TAB PO SCH (09:22)
[2023-04-21] MEDS: PANTOprazole 40 MG TAB PO SCH (09:22)
[2023-04-21] MEDS: NITROGLYCERIN 0.4 MG/HR PATCH TD SCH (09:22)
--- NOTE | 2023-04-21 13:00 | XRay Report ---
TWO VIEW CHEST CLINICAL HISTORY: Congestive heart failure.. FINDINGS: PA and lateral chest radiographs are compared to study dated 04/20/2023. Correlation is mad e with chest CT dated 04/17/2023. A 3-lead cardiac AICD is unchanged in position and partially obscur es the left mid chest. The heart is enlarged. There is pulmonary vascular congestion with mild inters titial edema. There are small pleural effusions with dependent consolidation. There is no pneumothora x. The skeletal structures are osteopenic. The bony thorax appears intact. Advanced arthritic change is seen in the right shoulder. A left shoulder arthroplasty is in place. IMPRESSION: 1. Cardiomegaly and AICD with evidence of congestive failure and mild pulmonary edema. 2. Small pleural effusions with dependent consolidation. ACT 112: Negative or not required by law. Electronically signed by: Peña Howard M.D. 04/21/2023 12:58 PM
--- NOTE | 2023-04-21 13:00 | Discharge Summary ---
Date of Service April 21, 2023 Admission HPI Per Admitting Provider The patient is a 77-year-old female with a past medical history including right pleural effusion status post thoracentesis on 04/04/2023 with removal of 1400 mL of serosanguineous fluid, CKD stage IV, HFrEF, asthma, nonischemic cardiomyopathy, paroxysmal ventricular tachycardia status post biventricular ICD placement on 01/29/2023, diabetes mellitus type 2, paroxysmal atrial fibrillation and postlaminectomy syndrome. She was most recently admitted to [facility] from 03/27-04/05/2023. She had been having improved symptoms until the past several days when she started developing the shortness of breath and substernal chest pressure as noted. She denies any recent change in oral intake for liquids or solids or salt. She denies any recent travels or sick exposures. Chest x-ray in the emergency department suggested CHF, with pleural effusion left greater than right, and was given Bumex 1 mg IV given by the ED, with an additional 1 mg IV added by me. Principal Diagnosis Pleural Effusion Discharge Exam Constitutional: well-appearing, no acute distress HEENT: NCAT, no conjunctival injection CV: regular rhythm, no murmur appreciated, extremities well-perfused. no LE edema Resp: Lung sounds diminished at bases, no wheezes/rales/rhonchi appreciated, no increased work of breathing MSK: no gross deformities appreciated Skin: warm, dry, no rash appreciated Neuro: alert, oriented, no focal neurologic deficit appreciated Discharge Data Allergies Allergy/AdvReac Type Severity Reaction Status Date / Time codeine Allergy Severe Anaphylaxis Verified 04/15/23 18:40 furosemide Allergy Severe SEVERE Verified 04/15/23 18:40 RASH, PT REPORTS A CROSS ALLERGY WITH SULFA celecoxib [From Celebrex] Allergy Intermediate RASH Verified 04/15/23 18:40 cephalexin [From Keflex] Allergy Intermediate Rash Verified 04/15/23 18:40 hydrocodone Allergy Intermediate Rash Verified 04/15/23 18:40 Iodinated Contrast Media Allergy Intermediate RASH Verified 04/15/23 18:40 nickel Allergy Intermediate Rash Verified 04/15/23 18:40 oxycodone Allergy Intermediate Rash Verified 04/15/23 18:40 Sulfa (Sulfonamide Allergy Intermediate RASH TO Verified 04/15/23 18:40 Antibiotics) SULFA DRUGS tetracycline Allergy Intermediate RASH Verified 04/15/23 18:40 capsaicin AdvReac Intermediate CREATINE Verified 04/15/23 18:40 ELEVATION diclofenac AdvReac Intermediate CREATINE Verified 04/15/23 18:40 ELEVATION propylene glycol AdvReac Intermediate CREATINE Verified 04/15/23 18:40 ELEVATION "PREP WITH BLUE DYE" Allergy Intermediate Rash Uncoded 04/15/23 18:40 Consultations 04/15/23 18:49 ED Decision to Admit Stat 04/16/23 08:34 Consult Cardiology Routine 04/17/23 12:39 Consult Pulmonology Routine Ordered Studies 04/17/23 12:42 CT chest diagnostic wo con Routine 04/20/23 14:23 US point of care ultrasound Urgent Hospital Course (1) Pleural effusion: Patient is a 77-year-old female with a complex medical history who presented with recurrent pleural effusions. Pleural Effusion: -Patient admitted for dyspnea with recurrent pleural effusions -Bilateral pleural effusions noted that have increased in size since being drained at the beginning of the month. At that time fluid was exudative - Repeat thoracentesis on /L with exudative fluid; cytology negative for malignant cells - concern as this is the 2nd thoracentesis she has had with blood pleural fluid; plan to f/u with heme/onc has appointment scheduled for 04/30 - Diuretics were held as she looked euvolemic; plan to resume 1mg Bumex daily on d/c with instructions to increase to 2mg if >5lb weight gain - Eliquis was held for thoracentesis and resumed on d/c. Concern for continue bleeding given bloody pleural fluid - F/u with PCP. Recommend repeat CXR, CBC, CMP. HFmEF exacerbation/hypertension/history of PS V. tach/biventricular ICD presents/PAF/hypertension- -Continue amiodarone 200 mg daily, carvedilol 25 mg p.o. twice daily, mag oxide 400 mg p.o. twice daily, potassium chloride 20 mEq every morning and nifedipine extended release 90 mg at bedtime -Bumex held and then to 1mg daily with instructions to increase to 2mg if >5lb weight gain - f/u cardiology 04/27 Normocytic Anemia - Hbg stable at 9 - Repeat CBC in 2-3 days; concern for continued bleeding into pleura with resumption of Eliquis Cardiorenal Syndrome Acute kidney injury on CKD stage IV- on presentation Creatinine 2.3;improvement from recent baseline with diuretics held Restart Bumex at 1mg with repeat BMP in 2-3 days - f/u nephrology 04/27 Asthma/COPD- Continue usual inhalers Xopenex-nebulizer every 4 hours as needed Continue montelukast DM2 - plan to resume home regimen (2) Cardiorenal syndrome: (3) Asthma: (4) Heart failure with mid-range ejection fraction (HFmEF): (5) CKD (chronic kidney disease) stage 4, GFR 15-29 ml/min: - S (6) Acute kidney injury superimposed on CKD: (7) Paroxysmal ventricular tachycardia: (8) Presence of biventricular implantable cardioverter-defibrillator (ICD): (9) Type II diabetes mellitus: Total Time Total Time Spent Total Time Spent (In Minutes): see attending attestation Discharge Plan Discharge Items Patient Disposition: Home - Self-Care Reason For Visit: HFrEF EXCERBATION Discharge Diagnosis: Pleural Effusion Activity: Per Instructions section Non-emergency contact: Primary Care Provider Call non-emergency contact if: you have any medication questions and your symptoms worsen Follow-up/Referrals: Mary Beth Marroquin PA-C [Physician Transactional Paralegal] - 04/24/23 2:30 pm Diet: Regular Addtl Attending Provider Instructions: You were admitted and found to have pleural effusions. The document scanner did a thoracentesis to drain the fluid on both the right and left lung. We don't have a great answer as to why you continue to accumulate fluid on your lungs. Because there is blood in the fluid, we would like for you to see hematology/oncology to have it further worked it. Please keep your appointment with them on 04/30. We are concerned that being on the Eliquis could be contributing the blood in the fluid. We will restart your Eliquis. We would like you to follow up with your PCP at the end of this week. You should get a repeat CXR at this time to see if fluid has reaccumulated. We held your dieretic for a period, we would like you to restart your Bumex at half of your normal dose; 1mg. We sent a prescription for the new dose of Bumex to the pharmacy. When you get home, we would like you to check your weight on your home scale. This is your dry weight. Check your weight everyday in the morning. If you weight were to increase by greater 5 lbs from your dry weight, you should increase your dose for that day to 2mg. We would like for you to get labs to check your kidney function, prior to your appointment with Chaya Guzmán and Dr. Stevenson. Pending Studies at Discharge: No Stand-Alone Forms: My [facility] [employer], Smoking Cessation Medications and DC Order Prescriptions: New bumetanide 1 mg tablet 1 mg PO DAILY Qty: 30 1RF lidocaine 5 % Adhesive Patch,Medicated 1 patch transdermal QAM PRN (Reason: pain) 30 Days Qty: 30 0RF Continued nifedipine 90 mg tablet extended release 90 mg PO HS Qty: 90 3RF duloxetine [Cymbalta] 60 mg capsule,delayed release(DR/EC) 60 mg PO QAM Qty: 90 3RF levothyroxine 137 mcg capsule 137 mcg PO DAILY Qty: 90 3RF azelastine 137 mcg (0.1 %) aerosol,spray 2 spray INTRANASAL DAILY PRN (Reason: ALLERGIES) Qty: 30 0RF (DME) Accu-Chek Garima Plus test strp Strip See Rx Instructions .ROUTE .MEDSUPPLY Qty: 100 3RF Rx Instructions: Check blood sugars once PRN potassium chloride [Klor-Con M20] 20 mEq tablet,ER particles/crystals 20 meq PO QAM Qty: 90 3RF Eliquis 5 mg tablet 5 mg PO BID Qty: 180 3RF montelukast [Singulair] 10 mg tablet 10 mg PO DAILY Qty: 90 3RF (DME) Hospital Bed [facility] See Rx Instructions .Route Qty: 1 0RF Rx Instructions: Semi-electric hospital bed with mattress and side rails lansoprazole 30 mg capsule,delayed release(DR/EC) 30 mg PO DAILY Qty: 90 3RF calcitriol 0.5 mcg capsule 0.25 mcg PO DAILY levalbuterol HCl 0.63 mg/3 mL solution for nebulization 0.63 mg INHALATION Q4H PRN (Reason: Cough) Qty: 90 3RF atorvastatin 40 mg tablet 40 mg PO HS Qty: 90 3RF mirtazapine 7.5 mg tablet 7.5 mg PO DAILY Qty: 30 5RF (DME) blood-glucose meter [Accu-Chek Garima Plus Meter] Misc See Rx Instructions .ROUTE .MEDSUPPLY Rx Instructions: Used to check blood sugars once PRN nitroglycerin [Nitro-Dur] 0.4 mg/hr patch 24 hour 1 patch TRANSDERMAL QAM Qty: 90 3RF Rx Instructions: remove after 12 hours cholestyramine (with sugar) 4 gram powder 4 ea PO DIRECTED PRN (Reason: Diarrhea) albuterol sulfate 90 mcg/actuation HFA aerosol inhaler 2 puff inhalation Q6H PRN (Reason: shortness of breath or wheezing) Qty: 8.5 2RF budesonide-formoterol [Symbicort] 80-4.5 mcg/actuation HFA aerosol inhaler 2 puff inhalation BID Qty: 3 3RF amiodarone 200 mg tablet 200 mg PO DAILY Qty: 30 2RF cetirizine [Zyrtec] 10 mg Tablet 10 mg PO HS betamethasone valerate 0.1 % cream 1 applic TOPICAL UD PRN (Reason: PSORIASIS ) Rx Instructions: Apply to areas of the arms twice daily for up to 2 weeks as needed for flaring. omega 7-nje-izr-fish oil [Fish Oil] 1,000 mg (120 mg-180 mg) Capsule 1,000 mg PO BID magnesium oxide 400 mg magnesium Tablet 400 mg PO BID prednisone 5 mg tablet 5 mg PO QAM Trulicity 1.5 mg/0.5 mL pen injector 1.5 mg subcut WK Rx Instructions: Inject 1.5 mg into the abdomen once weekly. acetaminophen [Tylenol Arthritis Pain] 650 mg Tablet Extended Release 1,300 mg PO BID carvedilol 25 mg tablet 25 mg PO BID Qty: 60 1RF Rx Instructions: must administer with a meal/food Discontinued bumetanide 2 mg tablet 2 mg PO DAILY Qty: 30 0RF Discharge Orders: Discharge Order- CHF (Routine); Ordered 04/21/23 Ordered By: Artur Martínez/Other Patient Handouts: Managing Type 2 Diabetes Admission Data Admit Date/Time: 04/15/23 20:29 Attending Provider: Lukasz Philippe Admit Provider: Yoel Pelaez Primary Care Provider: Jigna Jovel Other Providers: Yoel Pelaez; Ky Martins; Epi Garcia Other Interventions: Discharge Summary Assessment (RN) Last Done: 04/21/23 17:02 Supervising Physician Co-Signing Physician Notes Attending attestation Pt seen and examined in concert with Dr. Ramírez. In agreement with the documented findings as noted in the resident documentation with any exceptions or additions as noted here. Patient reports significant improvement in SOB post thoracentesis and feels at her baseline. Her overall weight is DOWN from even previously baseline at 95kg. On examination, S1/S2 nl RRR no MCG. CTAB. Abd NT/ND BS+ve. No edema apprecaited. VS: , 60, 20, 37.2C, 94% RA Data: hgb 9, PLT 317, BUN 26, Cr 2.36 ARF w/ hypoxia in the setting of bilateral pleural effusion, HFmEF - lowest weight on record and no apparent edema. Will restart bumetanide at 1mg on discharge with precautions re: weight gain at home and increased dose Bilateral pleural effusions - heme/onc follow up in outpatient setting as cytology without etiology in hospital. Will restart apixiban for prophylaxis in the setting of AF as rec'd by pulmonology and d/w patient. Else see resident documentation as noted. Total attending physician time spent with this patient's care on the day of discharge: 40 minutes.
[2023-04-21] MEDS: LIDOCAINE 5% 1 PATCH TD PRN (14:44)
== END 2023-04-21 18:16 | disposition home health service (06) | DRG 186 ==
LOC: ED 16:53 → SUATTDRO 20:29 → EDINP 20:29 → 4W 22:52

== ENCOUNTER 2023-04-29 09:06 | Inpatient (IN) ==
--- NOTE | 2023-04-29 10:10 | XRay Report ---
SINGLE VIEW CHEST CLINICAL HISTORY: Dyspnea FINDINGS: A PA chest radiograph is compared to study dated 04/24/2023. Correlation is made with chest CT dated 04/17/2023. A 3-lead cardiac AICD is unchanged in position and partially obscures the left m id chest. The heart is enlarged. There is mild pulmonary vascular congestion. There are small to mode rate bilateral pleural effusions with dependent consolidation. No pneumothorax is seen. The skeletal structures are osteopenic. The bony thorax is grossly intact. A left shoulder arthroplasty is in plac e. Arthritic change is noted in the right shoulder. IMPRESSION: 1. Cardiomegaly and AICD with pulmonary vascular congestion. 2. Small to moderate pleural effusions with dependent consolidation. ACT 112: Negative or not required by law. Electronically signed by: Peña Howard M.D. 04/29/2023 10:08 AM
[2023-04-29 10:37] LABS: Basophils # (auto) 0.04 K/uL (0.00-0.20); Basophils % (auto) 0.9 %; Eosinophils # (auto) 0.15 K/uL (0.00-0.50); Eosinophils % (auto) 3.3 %; Hematocrit (blood only) 30.9 % (37.0-47.0); Hemoglobin 9.5 g/dl (12.0-16.0); Immature Granulocytes # (auto) 0.01 K/uL (0.01-0.20); Immature Granulocytes % (auto) 0.2 %; Lymphocytes # (auto) 1.11 K/uL (1.20-3.40); Lymphocytes % (auto) 24.3 %; Mean Corpuscular Hemoglobin 26.2 pg (25.0-34.0); Mean Corpuscular Hgb Conc 30.7 g/dL (32.0-36.0); Mean Corpuscular Volume 85.4 fL (80.0-100.0); Monocytes # (auto) 0.36 K/uL (0.11-0.59); Monocytes % (auto) 7.9 %; Neutrophils # (auto) 2.89 K/uL (1.40-6.50); Neutrophils % (auto) 63.4 %; Platelet Count 416 K/uL (130-400); RDW Coefficient of Variation 22.1 % (11.5-14.5); Red Blood Count 3.62 M/uL (4.20-5.40); White Blood Count 4.56 K/ul (4.8-10.8)
[2023-04-29 10:41] LABS: Albumin Globulin Ratio 0.6 (0.9-2); Albumin Level 3.1 gm/dl (3.4-5.0); BUN Creatinine Ratio 10.2 (10-20); Bilirubin,Total 0.3 mg/dl (0.2-1.0); Calcium 8.9 mg/dl (8.6-10.3); Creatinine Clr Calc Pharmacy 20.8 ml/min; Est GFR (African American) 17.1 ml/min; Est GFR (Non-African American) 14.8 ml/min; Globulin 5.1 gm/dl (2.5-4.0); Magnesium 2.2 mg/dl (1.7-2.4); Potassium 4.4 mmol/L (3.5-5.1); Total Protein 8.2 gm/dl (6.0-8.3)
[2023-04-29 10:48] LABS: Troponin I High Sensitivity 7.5 pg/ml (0-14)
[2023-04-29 10:55] LABS: INR 1.1 (0.9-1.1); Prothrombin Time 11.9 Seconds (9.0-12.0)
[2023-04-29 11:22] LABS: Rouleaux 2+
--- NOTE | 2023-04-29 12:43 | Emergency Department Note ---
Impression & Plan Dyspnea, Pleural effusion, Hypoxia, Anemia, CKD (chronic kidney disease) ED Provider Note ED Provider Note NAME: FRANCA LEAL AGE:77 SEX: Female : 1945 ARRIVES VIA: [] INFORMANT: Patient ED PROVIDER(s): Leia Chinchilla DO CHIEF COMPLAINT: shortness of breath HPI: This is a 77-year-old female who presents emergency room due to concern for increased shortness of breath and low oxygen reading as checked at home. Patient with history of congestive heart failure, pacemaker, atrial fibrillation as well as kidney dysfunction. Patient states her kidney dysfunction was result of IV dye following cardiac catheterization. Patient states she does have an appointment with hematology tomorrow as she has had removal of fluid from her lungs and she states each time this occurs she was told there is blood in the fluid. She states she does perform daily weight checks and has not noticed any increased weight. She states she does take a diuretic daily. No increased lower extremity edema although she states she does wear compression stockings daily. Patient states she frequently checks her oxygen level at home with a portable pulse ox. She states when she woke up she saw 78%. She took a few deep breaths and her oxygen level came up into the 80s. She states she began noticing a discomfort in her right lower lateral chest and a sense of tightness centrally that she states are similar to when she needed to have fluid drained from her lung previously. She states she did have an outpatient chest x-ray on Thursday and was told she did have a small recurrent pleural effusion again patient states she does have a history of asthma and did smoke in her youth although has not smoked in many years, no history of COPD. She denies any recent fevers, chills, or URI symptoms. She does not wear home oxygen. She states she has not missed or skipped any doses of her diuretic. No recent dietary indiscretion. Pulse ox 86% on RA in triage. PAST MEDICAL HISTORY:See Below PAST SURGICAL HISTORY:See Below FAMILY HISTORY:See Below SOCIAL HISTORY:See Below HOME MEDICATIONS:See Below ALLERGIES:See Below VITALS:See Below PHYSICAL EXAMINATION: GENERAL: alert, well appearing, well nourished, no distress, non-toxic, wearing a mask, seated in wheelchair EYE EXAM: normal conjunctiva, PERRL and EOM's grossly intact OROPHARYNX: no exudate, no erythema, lips, buccal mucosa, and tongue normal and mucous membranes are moist NECK: supple, no nuchal rigidity, no adenopathy, non-tender LUNGS: Clear to auscultation. Normal chest wall mechanics, no w/r/r HEART: no murmurs, S1 normal and S2 normal ABDOMEN: abdomen soft, non-tender, normo-active bowel sounds, no masses, no rebound or guarding. BACK: Back is symmetrical on inspection and there is no deformity, no midline tenderness, no CVA tenderness. SKIN: no rashes, petechiae, orbruising UPPER EXTREMITIES: upper extremities are grossly normal. FROM, nml pulses b/l. LOWER EXTREMITIES: No pitting edema. FROM, nml pulses b/l. NEURO EXAM: Normal sensorium, cranial nerves II-XII grossly intact, normal speech, no facial droop,nogross weakness of arms, no gross weakness of legs. Gross sensation intact. No ataxia. Vital Signs: reviewed and remarkable Differential Diagnosis: pneumonia, bronchitis, COPD/Asthma exacerbation, pneumothorax, pulmonary embolism, congestive heart failure, acute coronary syndrome, as well as others were considered MEDICAL DECISION MAKING: This is a 77-year-old female presents emergency room due to concern for increased shortness of breath and hypoxia noted at home. Patient afebrile and vital signs stable here, while speaking with me in triage she was noted to not only have conversational dyspnea but a pulse ox in the 80s. She presented on day of high volume and acuity and was seen initially in the triage waiting room area. Labs drawn and sent, IV established, EKG and chest were performed and interpreted by me. Once room was available patient was monitored on telemetry. I discussed with the patient my concern for her hypoxia and increased work of breathing given several possible sources after discussion of her history and prior episodes. Patient noted to have anemia although this appears stable compared to prior. Elevated creatinine again noted although this appears stable compared to prior as well. BNP elevated although this is improved compared to prior. I discussed all results with the patient at bedside. Case discussed with the hospitalist team for additional evaluation and management. Consultation(s): 1315: Discussed with Dr. Ramirez, [facility] hospitalist team, for additional evaluation and management. ER Treatment Provided: See below Diagnostics Interpreted By Me: -ECG: AV paced at a rate of 81, normal axis, prolonged QTc, nonspecific ST/T wave changes -Cardiac Monitoring: An order was placed for continuous cardiac monitoring. The monitor shows a rate of 70 with paced rhythm. -Laboratory studies: As stated above and show below. -Imaging studies: Chest x-ray: Worsening left pleural effusion noted compared to previous chest x-ray from Thursday, small right pleural effusion noted, cardiomegaly noted, pacemaker noted left superior chest wall, no wide mediastinum, no focal consolidation Triage Nursing Note Reviewed Prior/Outside Records Reviewed - prior cardiology note reviewed Past Med/Surg History Medical History (Updated 04/30/23 @ 15:25 by Leia Chinchilla DO) Acute respiratory failure with hypoxia Breathlessness CKD (chronic kidney disease) stage 4, GFR 15-29 ml/min baseline creatinine 2.0-2.2 range; nephrology (Dr. Stevenson) monitoring Pulmonary edema Cardiomyopathy Non-ST elevation (NSTEMI) myocardial infarction Ventricular tachycardia Tachy-lina syndrome Elevated troponin Atrial fibrillation with RVR Sialoadenitis, unspecified Allergic rhinitis SI joint arthritis Abnormal PFT Mild persistent asthma Active asthma inhaler daily/prn, nebulizer prn Sinus congestion Chronic dyspnea On anticoagulant therapy eliquis bid Paroxysmal atrial fibrillation follows with Dr. Mitchell on eliquis bid Iron deficiency anemia Atrial fibrillation Varicose veins of legs Seasonal allergies Sometimes gets bronchitis, uses nebulizer for this and allergies Chronic steroid use FOR PSORITRIC ARTHRITIS Esophageal dysmotility Restless leg syndrome Hyperlipidemia Hearing loss, right DEAF RIGHT EAR Hiatal hernia snf current use of systemic steroids for psoriatic arthritis Obesity Polyneuropathy Tinnitus of right ear Gastric polyp Type II diabetes mellitus (Unknown) Esophageal spasm Schatzki's ring HTN (hypertension) Essential hypertension Peptic ulcer disease Irritable bowel syndrome Hypothyroidism Spinal meningioma On c-spine- follows with [facility] neurosurgery specialist (Dr. Ken)- under surveillance/stable/no indication for surgical intervention Psoriatic arthropathy GERD (gastroesophageal reflux disease) CONTROLLED WITH MEDS Osteoarthritis, knee Surgical History History of laparoscopy (~06/2020) exploratory after colectomy @ [facility] History of colectomy (~06/2020) @ [facility] History of total left hip arthroplasty 12/2019 History of total hip arthroplasty RIGHT 05/27/19. Complicated by post-op seroma requiring multiple needle aspirations.LEFT HIP 01/10/20 History of dilatation and curettage History of tooth extraction History of tonsillectomy and adenoidectomy History of cardiac cath X2; 10+ YEARS AGO (NO STENTS) History of arthroscopy RT/LEFT KNEE Status post total replacement of left shoulder hx of History of colonoscopy last 03/2020 History of esophagogastroduodenoscopy (EGD) History of total abdominal hysterectomy and bilateral salpingo-oophorectomy History of arthroscopy of right shoulder History of total knee arthroplasty RIGHT History of foot surgery RT FOOT FUSION History of cholecystectomy History of cataract extraction RT/LEFT History of lumbar fusion H/O thyroidectomy Family History Mother Arthritis Hypertension Father Lung cancer Hypertension Family/Other Family hx of colon cancer Unknown Allergies Breast cancer Hypertension Brother Cancer Heart disease Aunt Colorectal cancer Other No family history of adverse response to anesthesia No family history of bleeding disorder Denies family history of Ovarian cancer Prostate cancer Diabetes Hearing loss Myocardial infarction Stroke Asthma Social History Smoking Status: Former smoker Tobacco Type: Cigarettes Age Quit Using Tobacco: 26; Second Hand Exposure: No; Do You Dip or Chew Tobacco: No; Hx Alcohol Use: No Hx Substance Use: No Preferred Language: Azeri Communication Ability: Effective Communication Ability Comment: DEAF RIGHT EAR Visual Impairment: Limited Hearing Ability: Hard of Hearing M48/M60 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: No Beliefs That Will Affect Care: None marital status: / Current Living Situation: Family Current Living Situation Comment: [place] current occupational status: retired current occupation: Retired How many Children do You have: 0 Feels Safe at Home: Yes Childhood Exposure to Second-Hand Smoke: Yes caffeine: Yes Dental Care, Regularly: Yes Physical Activity Frequency: Does not Exercise Physical Activity Frequency Comment: Hip problems Seatbelt Use: always Sunscreen Use: No Assistive Devices: None Allergies Allergies Allergy/AdvReac Type Severity Reaction Status Date / Time codeine Allergy Severe Anaphylaxis Verified 04/29/23 13:29 furosemide Allergy Severe SEVERE Verified 04/29/23 13:29 RASH, PT REPORTS A CROSS ALLERGY WITH SULFA celecoxib [From Celebrex] Allergy Intermediate RASH Verified 04/29/23 13:29 cephalexin [From Keflex] Allergy Intermediate Rash Verified 04/29/23 13:29 hydrocodone Allergy Intermediate Rash Verified 04/29/23 13:29 Iodinated Contrast Media Allergy Intermediate RASH Verified 04/29/23 13:29 nickel Allergy Intermediate Rash Verified 04/29/23 13:29 oxycodone Allergy Intermediate Rash Verified 04/29/23 13:29 Sulfa (Sulfonamide Allergy Intermediate RASH TO Verified 04/29/23 13:29 Antibiotics) SULFA DRUGS tetracycline Allergy Intermediate RASH Verified 04/29/23 13:29 capsaicin AdvReac Intermediate CREATINE Verified 04/29/23 13:29 ELEVATION diclofenac AdvReac Intermediate CREATINE Verified 04/29/23 13:29 ELEVATION propylene glycol AdvReac Intermediate CREATINE Verified 04/29/23 13:29 ELEVATION "PREP WITH BLUE DYE" Allergy Intermediate Rash Uncoded 04/29/23 13:29 Home Meds Home Medications Medication Instructions Recorded Confirmed magnesium oxide 400 mg PO BID 07/26/18 04/29/23 omega [id number]-[id number]-aoy-fish oil 1,000 mg 1,000 mg PO BID 07/26/18 04/29/23 (120 mg-180 mg) capsule (Fish Oil) cetirizine 10 mg tablet (Zyrtec) 10 mg PO HS 08/22/19 04/29/23 betamethasone valerate 0.1 % 1 applic topical UD PRN PSORIASIS 11/30/19 04/29/23 topical cream blood-glucose meter (Accu-Chek 02/12/21 04/24/23 Garima Plus Meter) cholestyramine (with sugar) 4 gram 4 ea PO DIRECTED PRN Diarrhea 08/26/22 04/29/23 oral powder acetaminophen 650 mg 1,300 mg PO BID 01/20/23 04/29/23 tablet,extended release (Tylenol Arthritis Pain) calcitriol 0.5 mcg capsule 0.25 mcg PO DAILY 03/23/23 04/29/23 dulaglutide 1.5 mg/0.5 mL 1.5 mg subcut WK 04/15/23 04/29/23 subcutaneous pen injector (Trulicity) Previous Rx's Medication Instructions Recorded nitroglycerin 0.4 mg/hr 1 patch transdermal QAM #90 ea 03/20/22 transdermal 24 hour patch (Nitro-Dur) nifedipine 90 mg tablet,extended 90 mg PO HS #90 tabs 04/14/22 release levothyroxine 137 mcg capsule 137 mcg PO DAILY #90 caps 08/27/22 albuterol sulfate 90 mcg/actuation 2 puff inhalation Q6H PRN 09/30/22 aerosol inhaler shortness of breath or wheezing #8.5 grams budesonide-formoterol HFA 80 2 puff inhalation BID #3 Inhalers 09/30/22 mcg-4.5 mcg/actuation aerosol inhaler (Symbicort) azelastine 137 mcg (0.1 %) nasal 2 spray intranasal DAILY PRN 11/17/22 spray aerosol ALLERGIES #30 mL blood sugar diagnostic (Accu-Chek #100 ea 12/19/22 Garima Plus test strips) potassium chloride 20 mEq 20 meq PO QAM #90 tabs 01/09/23 tablet,extended release(part/cryst) (Klor-Con M) apixaban 5 mg tablet (Eliquis) 5 mg PO BID #180 tabs 01/15/23 montelukast 10 mg tablet 10 mg PO DAILY #90 tabs 01/19/23 (Singulair) lansoprazole 30 mg capsule,delayed 30 mg PO DAILY #90 caps 02/04/23 release [facility] ([facility]ospital [facility]1 ea 03/03/23 Bed) amiodarone 200 mg tablet 200 mg PO DAILY #30 tabs 03/06/23 atorvastatin 40 mg tablet 40 mg PO HS #90 tabs 04/15/23 levalbuterol HCl 0.63 mg/3 mL 0.63 mg (3 mL) inhalation Q4H PRN 04/15/23 solution for nebulization Cough #90 mL mirtazapine 7.5 mg tablet 7.5 mg PO DAILY #30 tabs 04/15/23 lidocaine 5 % topical patch 1 patch transdermal QAM PRN pain 04/21/23 30 days #30 ea duloxetine 60 mg capsule,delayed 60 mg PO QAM #90 caps 04/24/23 release (Cymbalta) prednisone 5 mg tablet 5 mg PO QAM #90 tabs 04/24/23 bumetanide 1 mg tablet 1 mg PO DAILY #180 tabs 04/27/23 carvedilol 25 mg tablet 25 mg PO BID #90 tabs 04/27/23 ferrous sulfate 325 mg (65 mg 325 mg PO DAILY #30 tabs 04/27/23 iron) tablet Results & Data (ED) Vital Signs Vital Signs - 24 hr 04/29/23 09:27 04/29/23 09:30 04/29/23 09:30 Temperature 36.5 C Temperature Source Skin Pulse Rate 73 Respiratory Rate 20 Respiratory Effort / Characteristics Non-Labored Spontaneous Respiratory Depth Normal Normal Respiratory Pattern Regular Regular Apnea Blood Pressure 93/60 L Blood Pressure Mean 71 Pulse Oximetry 95 Oxygen Delivery Method Room Air Room Air Room Air Sepsis Recent Fever Within 48 Hours No Sepsis New/Unexplained Change in Mental Status N/A Sepsis Action Taken by Nursing No Action Required Laboratory Data 04/30/23 05:48 04/30/23 05:48 Lab Results 04/29/23 Range/Units 10:00 WBC 4.56 L (4.8-10.8) K/ul RBC 3.62 L (4.20-5.40) M/uL Hgb 9.5 L (12.0-16.0) g/dl Hct 30.9 L (37.0-47.0) % MCV 85.4 (80.0-100.0) fL MCH 26.2 (25.0-34.0) pg MCHC 30.7 L (32.0-36.0) g/dL RDW Std Deviation 69.0 H (36.4-46.3) fL RDW Coeff of Amrita 22.1 H (11.5-14.5) % Plt Count 416 H (130-400) K/uL MPV 10.0 (9.4-12.4) fL Immature Gran % (Auto) 0.2 % Neut % (Auto) 63.4 % Lymph % (Auto) 24.3 % Garden % (Auto) 7.9 % Eos % (Auto) 3.3 % Baso % (Auto) 0.9 % Neut # (Auto) 2.89 (1.40-6.50) K/uL Lymph # (Auto) 1.11 L (1.20-3.40) K/uL Garden # (Auto) 0.36 (0.11-0.59) K/uL Eos # (Auto) 0.15 (0.00-0.50) K/uL Baso # (Auto) 0.04 (0.00-0.20) K/uL Immature Gran # (Auto) 0.01 (0.01-0.20) K/uL Rouleaux 2+ PT 11.9 (9.0-12.0) Seconds INR 1.1 (0.9-1.1) Sodium 139 (136-145) mmol/L Potassium 4.4 (3.5-5.1) mmol/L Chloride 104 (98-107) mmol/L Carbon Dioxide 26 (21-32) mmol/L Anion Gap 9 (3-11) BUN 30 H (6-23) mg/dl Creatinine 2.95 H (0.6-1.2) mg/dl Est Cr Clr Drug Dosing 20.8 ml/min Est GFR ( Amer) 17.1 ml/min Est GFR (Non-Af Amer) 14.8 ml/min BUN/Creatinine Ratio 10.2 (10-20) Glucose 108 H (70-99(Fasting)) mg/dl Calcium 8.9 (8.6-10.3) mg/dl Magnesium 2.2 (1.7-2.4) mg/dl Total Bilirubin 0.3 (0.2-1.0) mg/dl AST 17 (13-39) U/L ALT 16 (7-52) U/L Alkaline Phosphatase 80 (34-104) U/L Troponin I High Sens 7.5 (0-14) pg/ml B-Natriuretic Peptide 179 H (0-100) pg/ml Total Protein 8.2 (6.0-8.3) gm/dl Albumin 3.1 L (3.4-5.0) gm/dl Globulin 5.1 H (2.5-4.0) gm/dl Albumin/Globulin Ratio 0.6 L (0.9-2) Administered Medications Acetaminophen (Acetaminophen 325 Mg Tab) 650 mg PO QID CAROL Stop: 05/29/23 20:59 Last Admin: 04/30/23 12:43 Dose: 650 mg Documented By: Admin: 04/30/23 08:28 Dose: 650 mg Documented By: Admin: 04/29/23 21:41 Dose: 650 mg Documented By: VIC Amiodarone HCl (Amiodarone 200 Mg Tab) 200 mg PO DAILY CAROL Stop: 05/30/23 08:59 Last Admin: 04/30/23 08:29 Dose: 200 mg Documented By: ROXANE Atorvastatin Calcium (Atorvastatin 40 Mg Tab) 40 mg PO HS [facility] Stop: 05/29/23 20:59 Last Admin: 04/29/23 21:43 Dose: 40 mg Documented By: VIC Carvedilol (Carvedilol 25 Mg Tab) 25 mg PO BIDM [facility] Stop: 05/29/23 17:59 Last Admin: 04/30/23 09:05 Dose: 25 mg Documented By: Admin: 04/29/23 19:22 Dose: 25 mg Documented By: TRISTAN Cetirizine HCl (Cetirizine Hcl 10 Mg Tablet) 10 mg PO HS [facility] Stop: 05/29/23 20:59 Last Admin: 04/29/23 21:43 Dose: 10 mg Documented By: VIC Duloxetine HCl (Duloxetine Hcl 60 Mg Cap) 60 mg PO QAM [facility] Stop: 05/30/23 08:59 Last Admin: 04/30/23 08:28 Dose: 60 mg Documented By: ROXANE Ferrous Sulfate (Ferrous Sulfate 325 Mg Tab) 325 mg PO DAILY [facility] Stop: 05/30/23 08:59 Last Admin: 04/30/23 08:28 Dose: 325 mg Documented By: ROXANE Fluticasone/Vilanterol (Fluticasone/Vilanterol 100/25mcg 14 Puffs/Inhaler) 1 puffs INH DAILY [facility]; Protocol Stop: 05/30/23 08:59 Last Admin: 04/30/23 08:30 Dose: 1 puffs Documented By: ROXANE Insulin Aspart (Insulin Aspart Per Unit Charge) 0 units SC ACHS [facility] Stop: 05/29/23 16:59 Last Admin: 04/30/23 12:55 Dose: Not Given Documented By: MARVIN Co-signed By: ROXANE Admin: 04/30/23 08:59 Dose: Not Given Documented By: Admin: 04/29/23 21:43 Dose: Not Given Documented By: VIC Co-signed By: VICKY Admin: 04/29/23 18:55 Dose: Not Given Documented By: TRISTAN Co-signed By: LEONARDO Levothyroxine Sodium (Levothyroxine Sodium 137 Mcg Tablet) 137 mcg PO DAILYBB [facility] Stop: 05/30/23 06:29 Last Admin: 04/30/23 05:59 Dose: 137 mcg Documented By: VIC Magnesium Oxide (Magnesium Oxide 400 Mg Tab) 400 mg PO BID [facility] Stop: 05/29/23 20:59 Last Admin: 04/30/23 08:30 Dose: 400 mg Documented By: Admin: 04/29/23 21:42 Dose: 400 mg Documented By: VIC Mirtazapine (Mirtazapine Tab 15 Mg Tab) 7.5 mg PO DAILY [facility] Stop: 05/30/23 08:59 Last Admin: 04/30/23 08:30 Dose: 7.5 mg Documented By: ROXANE Montelukast Sodium (Montelukast Sodium 10 Mg Tablet) 10 mg PO DAILY [facility] Stop: 05/30/23 08:59 Last Admin: 04/30/23 08:29 Dose: 10 mg Documented By: ROXANE Nifedipine (Nifedipine Extended Rel 30 Mg Tabcr) 90 mg PO HS [facility] Stop: 05/29/23 20:59 Last Admin: 04/29/23 21:42 Dose: 90 mg Documented By: VIC Pantoprazole Sodium (Pantoprazole 40 Mg Tab) 40 mg PO DAILY [facility]; Protocol Stop: 05/30/23 08:59 Last Admin: 04/30/23 08:28 Dose: 40 mg Documented By: ROXANE Prednisone (Prednisone 5 Mg Tab) 5 mg PO QAM [facility] Stop: 05/30/23 08:59 Last Admin: 04/30/23 08:29 Dose: 5 mg Documented By: ROXANE Imaging Data Radiologist's Impression: Chest X-Ray 04/29/23 09:32 SINGLE VIEW CHEST CLINICAL HISTORY: Dyspnea FINDINGS: A PA chest radiograph is compared to study dated 04/24/2023. Correlation is made with chest CT dated 04/17/2023. A 3-lead cardiac AICD is unchanged in position and partially obscures the left mid chest. The heart is enlarged. There is mild pulmonary vascular congestion. There are small to moderate bilateral pleural effusions with dependent consolidation. No pneumothorax is seen. The skeletal structures are osteopenic. The bony thorax is grossly intact. A left shoulder arthroplasty is in place. Arthritic change is noted in the right shoulder. IMPRESSION: 1. Cardiomegaly and AICD with pulmonary vascular congestion. 2. Small to moderate pleural effusions with dependent consolidation. ACT 112: Negative or not required by law. Electronically signed by: Peña Howard M.D. 04/29/2023 10:08 AM Discharge Plan Visit Data Chief Complaint: Shortness of Breath/Dyspnea Stated Complaint: SOB ED Provider: Leia Chinchilla Discharge Problem: Dyspnea, Pleural effusion, Hypoxia, Anemia, CKD (chronic kidney disease) Patient Disposition: Admitted As Inpatient Discharge Instructions Interventions: ED Discharge Assessment Last Done: 04/29/23 17:01
--- NOTE | 2023-04-29 13:16 | History & Physical Report ---
Date of Service April 29, 2023 Assessment & Plan (1) Pleural effusion: Plan: Worsening COMBS, SOB at rest, chest tightness, and hypoxia over the past week [facility] admission 3 thoracenteses: 04/04 (right), 04/19 (left), and 04/20 (right) -all exudative, bloody Pleural fluid cytology was negative for malignancy x3 Chest CT on 04/17 noted no mediastinal lymphadenopathy; however, pulmonology note on 04/21 noted "anterior mediastinal lymphadenopathy" Patient has been unable to get contrast dye due to her kidney function Per pulmonology, pleural effusion is stable; unlikely to repeat thoracentesis Patient likely needs two step; will need to discuss home O2 use Hematology consulted; patient had an appointment set for 04/30 for abnormal SPEP Clinically, patient does not look volume overloaded; will need to reevaluate for IV Lasix as it is an exudative fluid A.m. CBC, BMP, mag (2) CHF exacerbation: Plan: Last echo on 04/04/2023 revealed LVEF at 55 to 60% BNP elevated at 179 (however this is lower than last admission, when it was at 217 on 03/27) (3) Hypoxia: Plan: Patient has a pulse ox at home and reports that she dropped to 80% range 04/27, 70% range on 04/28 SPO2 95% on RA at time of admission Continuous oxygen supplementation as needed to maintain SPO2 >94% (4) Type II diabetes mellitus: Plan: Last A1c was 6.6% on 04/16/2023 Hold Trulicity BSG checks ACHS She has done okay on SSI without basal in the past admissions Goal BSG range 110-140, CF 50, no carb ratio T2DM diet Adjust regimen as needed (5) Paroxysmal atrial fibrillation: Plan: S/p ICD placement EKG AV dual paced rhythm at 81 bpm Continue carvedilol, amiodarone Hold Eliquis in setting of potential exudative pleural effusions (6) CKD (chronic kidney disease): Plan: Elevated creatinine at 2.95 (baseline 2.3 range), EGFR at 14.8 Avoid nephrotoxic agents (7) Asthma: Plan: Continue albuterol as needed (8) GERD (gastroesophageal reflux disease): Plan: Continue lansoprazole Plan Disposition: Admit to [facility] telemetry Full code AHA, T2DM diet, 1800 mL fluid restriction VTE PPx: SCDs (hold Eliquis in the setting of potentially recurrent exudative pleural effusions) History of Present Illness Chief Complaint: Shortness of breath/dyspnea Primary Care Provider: DO Mike Watkins is a 77-year-old female with PMH of HFrEF, paroxysmal A-fib, tachy-lina syndrome, T2DM, asthma, dyslipidemia, hypothyroidism, cardiomyopathy, CKD, and paroxysmal ventricular tachycardia s/p [employer] Barbara MRI Quad [employer]-D Bi-V AICD implantation on 01/29/2023. She presented for worsening SOB, chest heaviness, and hypoxia x 2 days. Patient reports that she got an outpatient x-ray on Thursday which showed pleural effusions. She reports that her home pulse ox was in the 80s on 04/27, dropped to the 70s on 04/28. She has been taking her Bumex consistently as instructed. She reports she took all of her morning medications. Only recent change in meds was iron. She denies at home oxygen use. She has been using her Symbicort, fast acting albuterol inhaler for shortness of breath, which has been helping. She reports that she has had no significant weight gain since recent hospital discharge. No recent changes in diet, and she says she stays away from salty foods. No sick contacts. She reports this feels similar to her past admissions. Of note, she had a hematology appointment scheduled for 8 AM on 04/30 for her recurrent exudative thoracenteses. She uses a cane for ambulation, but denies falls, or injuries to the chest wall. Patient exhibits mild hypotension at 93/60 at time of admission; vitals otherwise stable. ROS: Patient endorses chest heaviness, COMBS, SOB at rest, and mild swelling in legs. Patient denies fever, chills, nightsweats, weight gain, chest pain, chest palpitations, abdominal pain, N/V/D, urinary s/s, urinary retention, numbness/tingling in arms and legs. Allergies Allergy/AdvReac Type Severity Reaction Status Date / Time codeine Allergy Severe Anaphylaxis Verified 04/29/23 13:29 furosemide Allergy Severe SEVERE Verified 04/29/23 13:29 RASH, PT REPORTS A CROSS ALLERGY WITH SULFA celecoxib [From Celebrex] Allergy Intermediate RASH Verified 04/29/23 13:29 cephalexin [From Keflex] Allergy Intermediate Rash Verified 04/29/23 13:29 hydrocodone Allergy Intermediate Rash Verified 04/29/23 13:29 Iodinated Contrast Media Allergy Intermediate RASH Verified 04/29/23 13:29 nickel Allergy Intermediate Rash Verified 04/29/23 13:29 oxycodone Allergy Intermediate Rash Verified 04/29/23 13:29 Sulfa (Sulfonamide Allergy Intermediate RASH TO Verified 04/29/23 13:29 Antibiotics) SULFA DRUGS tetracycline Allergy Intermediate RASH Verified 04/29/23 13:29 capsaicin AdvReac Intermediate CREATINE Verified 04/29/23 13:29 ELEVATION diclofenac AdvReac Intermediate CREATINE Verified 04/29/23 13:29 ELEVATION propylene glycol AdvReac Intermediate CREATINE Verified 04/29/23 13:29 ELEVATION "PREP WITH BLUE DYE" Allergy Intermediate Rash Uncoded 04/29/23 13:29 Home Medications Medication Instructions Recorded Confirmed Type magnesium oxide 400 mg PO BID 07/26/18 04/29/23 History omega 2-fbo-jrz-fish oil 1,000 mg 1,000 mg PO BID 07/26/18 04/29/23 History (120 mg-180 mg) capsule (Fish Oil) cetirizine 10 mg tablet (Zyrtec) 10 mg PO HS 08/22/19 04/29/23 History betamethasone valerate 0.1 % 1 applic topical UD PRN PSORIASIS 11/30/19 04/29/23 History topical cream blood-glucose meter (Accu-Chek 02/12/21 04/24/23 History Garima Plus Meter) nitroglycerin 0.4 mg/hr 1 patch transdermal QAM #90 ea 03/20/22 04/29/23 Rx transdermal 24 hour patch (Nitro-Dur) nifedipine 90 mg tablet,extended 90 mg PO HS #90 tabs 04/14/22 04/29/23 Rx release cholestyramine (with sugar) 4 gram 4 ea PO DIRECTED PRN Diarrhea 08/26/22 04/29/23 History oral powder levothyroxine 137 mcg capsule 137 mcg PO DAILY #90 caps 08/27/22 04/29/23 Rx albuterol sulfate 90 mcg/actuation 2 puff inhalation Q6H PRN 09/30/22 04/29/23 Rx aerosol inhaler shortness of breath or wheezing #8.5 grams budesonide-formoterol HFA 80 2 puff inhalation BID #3 Inhalers 09/30/22 04/29/23 Rx mcg-4.5 mcg/actuation aerosol inhaler (Symbicort) azelastine 137 mcg (0.1 %) nasal 2 spray intranasal DAILY PRN 11/17/22 04/29/23 Rx spray aerosol ALLERGIES #30 mL blood sugar diagnostic (Accu-Chek #100 ea 12/19/22 04/24/23 Rx Garima Plus test strips) potassium chloride 20 mEq 20 meq PO QAM #90 tabs 01/09/23 04/29/23 Rx tablet,extended release(part/cryst) (Klor-Con M) apixaban 5 mg tablet (Eliquis) 5 mg PO BID #180 tabs 01/15/23 04/29/23 Rx montelukast 10 mg tablet 10 mg PO DAILY #90 tabs 01/19/23 04/29/23 Rx (Singulair) acetaminophen 650 mg 1,300 mg PO BID 01/20/23 04/29/23 History tablet,extended release (Tylenol Arthritis Pain) lansoprazole 30 mg capsule,delayed 30 mg PO DAILY #90 caps 02/04/23 04/29/23 Rx release Hospital [facility] (Hospital [facility]1 ea 03/03/23 04/24/23 Rx Bed) amiodarone 200 mg tablet 200 mg PO DAILY #30 tabs 03/06/23 04/29/23 Rx calcitriol 0.5 mcg capsule 0.25 mcg PO DAILY 03/23/23 04/29/23 History atorvastatin 40 mg tablet 40 mg PO HS #90 tabs 04/15/23 04/29/23 Rx dulaglutide 1.5 mg/0.5 mL 1.5 mg subcut WK 04/15/23 04/29/23 History subcutaneous pen injector (Trulicity) levalbuterol HCl 0.63 mg/3 mL 0.63 mg (3 mL) inhalation Q4H PRN 04/15/23 04/29/23 Rx solution for nebulization Cough #90 mL mirtazapine 7.5 mg tablet 7.5 mg PO DAILY #30 tabs 04/15/23 04/29/23 Rx lidocaine 5 % topical patch 1 patch transdermal QAM PRN pain 04/21/23 04/29/23 Rx 30 days #30 ea duloxetine 60 mg capsule,delayed 60 mg PO QAM #90 caps 04/24/23 04/29/23 Rx release (Cymbalta) prednisone 5 mg tablet 5 mg PO QAM #90 tabs 04/24/23 04/29/23 Rx bumetanide 1 mg tablet 1 mg PO DAILY #180 tabs 04/27/23 04/29/23 Rx carvedilol 25 mg tablet 25 mg PO BID #90 tabs 04/27/23 04/29/23 Rx ferrous sulfate 325 mg (65 mg 325 mg PO DAILY #30 tabs 04/27/23 04/29/23 Rx iron) tablet Past Med/Surg History Medical History Breathlessness Acute respiratory failure with hypoxia CKD (chronic kidney disease) stage 4, GFR 15-29 ml/min Pulmonary edema Cardiomyopathy Non-ST elevation (NSTEMI) myocardial infarction Ventricular tachycardia Tachy-lina syndrome Elevated troponin Atrial fibrillation with RVR Sialoadenitis, unspecified Allergic rhinitis SI joint arthritis Abnormal PFT Mild persistent asthma Active asthma Sinus congestion Chronic dyspnea On anticoagulant therapy Paroxysmal atrial fibrillation Iron deficiency anemia Atrial fibrillation Varicose veins of legs Seasonal allergies Chronic steroid use Esophageal dysmotility Restless leg syndrome Hyperlipidemia Hearing loss, right Hiatal hernia FPC current use of systemic steroids Obesity Polyneuropathy Tinnitus of right ear Gastric polyp Type II diabetes mellitus (Unknown) Esophageal spasm Schatzki's ring HTN (hypertension) Essential hypertension Peptic ulcer disease Irritable bowel syndrome Hypothyroidism Spinal meningioma Psoriatic arthropathy GERD (gastroesophageal reflux disease) Osteoarthritis, knee Surgical History History of laparoscopy (~06/2020) History of colectomy (~06/2020) History of total left hip arthroplasty History of total hip arthroplasty History of dilatation and curettage History of tooth extraction History of tonsillectomy and adenoidectomy History of cardiac cath History of arthroscopy Status post total replacement of left shoulder History of colonoscopy History of esophagogastroduodenoscopy (EGD) History of total abdominal hysterectomy and bilateral salpingo-oophorectomy History of arthroscopy of right shoulder History of total knee arthroplasty History of foot surgery History of cholecystectomy History of cataract extraction History of lumbar fusion H/O thyroidectomy Family History Mother Arthritis Hypertension Father Lung cancer Hypertension Family/Other Family hx of colon cancer Unknown Allergies Breast cancer Hypertension Brother Cancer Heart disease Aunt Colorectal cancer Other No family history of adverse response to anesthesia No family history of bleeding disorder Denies family history of Ovarian cancer Prostate cancer Diabetes Hearing loss Myocardial infarction Stroke Asthma Social History Smoking Status: Former smoker Tobacco Type: Cigarettes Age Quit Using Tobacco: 26; Second Hand Exposure: No; Do You Dip or Chew Tobacco: No; Hx Alcohol Use: No Hx Substance Use: No Preferred Language: Uzbek Communication Ability: Effective Communication Ability Comment: DEAF RIGHT EAR Visual Impairment: Limited Hearing Ability: Hard of Hearing Book Canvasser Required: No Beliefs That Will Affect Care: None marital status: / Current Living Situation: Family Current Living Situation Comment: [place] current occupational status: retired current occupation: Retired How many Children do You have: 0 Feels Safe at Home: Yes Safety Concerns: Feels Safe At This Time Childhood Exposure to Second-Hand Smoke: Yes caffeine: Yes Dental Care, Regularly: Yes Physical Activity Frequency: Does not Exercise Physical Activity Frequency Comment: Hip problems Seatbelt Use: always Sunscreen Use: No Assistive Devices: Cane, Nebulizer and Walker Review of Systems Review of Systems: See HPI above Physical Exam Physical Exam: General: no acute distress; non-toxic appearing; well-nourished; cooperative; 94% SPO2 on room air HEENT: normocephalic, atraumatic; no scleral icterus; PERRLA w/ EOMs intact; moist mucus membrane; vision and hearing grossly intact Neck: supple; negative for JVD; no lymphadenopathy; trachea midline Skin: warm, dry without signs of tenting; no cyanosis; no rashes, bruising, lesions, or erythema noted CV: chest wall NTP; RRR; S1/S2 normal; no murmurs/rubs/gallops; pulses intact and symmetric at radial, DP, and PT Lungs: Patient exhibits SOB that increases when speaking; mild respiratory distress; symmetrical chest wall expansion; clear breath sounds across all lung osman w/o adventitious sounds; decreased auscultation in the lower lung osman B/L ABD: Soft, NTP; BS present; no rebound/guarding; no ascites; mild distention MSK: no tics or fasciculations; +1 pitting edema in the LEs B/L extending from ankles up to the knees (teds) Neuro: A&Ox3; normal mood and affect; fluent speech; no focal deficits; sensation grossly intact in the LEs B/L Results & Data Results & Data Vital Signs (Past 12 Hours) Vital Signs Temp Pulse Resp BP Pulse Ox O2 Del Method 04/29/23 09:30 Room Air 04/29/23 09:30 Room Air 04/29/23 09:27 36.5 C 73 20 93/60 L 95 Room Air Laboratory Results Abnormal lab results 04/29/23 Range/Units 10:00 WBC 4.56 L (4.8-10.8) K/ul RBC 3.62 L (4.20-5.40) M/uL Hgb 9.5 L (12.0-16.0) g/dl Hct 30.9 L (37.0-47.0) % MCHC 30.7 L (32.0-36.0) g/dL RDW Std Deviation 69.0 H (36.4-46.3) fL RDW Coeff of Amrita 22.1 H (11.5-14.5) % Plt Count 416 H (130-400) K/uL Lymph # (Auto) 1.11 L (1.20-3.40) K/uL BUN 30 H (6-23) mg/dl Creatinine 2.95 H (0.6-1.2) mg/dl Glucose 108 H (70-99(Fasting)) mg/dl B-Natriuretic Peptide 179 H (0-100) pg/ml Albumin 3.1 L (3.4-5.0) gm/dl Globulin 5.1 H (2.5-4.0) gm/dl Albumin/Globulin Ratio 0.6 L (0.9-2) Diagnostic Findings Chest X-Ray 04/29/23 09:32 SINGLE VIEW CHEST CLINICAL HISTORY: Dyspnea FINDINGS: A PA chest radiograph is compared to study dated 04/24/2023. Correlation is made with chest CT dated 04/17/2023. A 3-lead cardiac AICD is unchanged in position and partially obscures the left mid chest. The heart is enlarged. There is mild pulmonary vascular congestion. There are small to moderate bilateral pleural effusions with dependent consolidation. No pneumothorax is seen. The skeletal structures are osteopenic. The bony thorax is grossly intact. A left shoulder arthroplasty is in place. Arthritic change is noted in the right shoulder. IMPRESSION: 1. Cardiomegaly and AICD with pulmonary vascular congestion. 2. Small to moderate pleural effusions with dependent consolidation. ACT 112: Negative or not required by law. Electronically signed by: Peña Howard M.D. 04/29/2023 10:08 AM Code Status & VTE Plan Code Status Full code VTE Prophylaxis Plan VTE Prophylaxis will be ordered: Yes Supervising Physician Co-Signing Physician Notes Patient seen and examined, chart reviewed, case discussed with Juno Sparks PA-C and I agree with the assessment and plan as above except as otherwise noted Labs and images reviewed Mike is seen at the bedside with her Shelton. History of heart failure reduced ejection fraction, paroxysmal A-fib, tachybradycardia syndrome with pacer, type II DM, cardiomyopathy, and history of exudative effusions negative for malignancy. She presents with worsened shortness of breath at home but without chest pain or chest pressure. BNP is up slightly however overall she does not appear volume overloaded and her prior fusions were exudative. She was post be set up with home oxygen has not yet done this, and did discuss with pulm and her effusions are not significantly changed in size from prior. Do not recommend drainage of her stable appearing effusions at this time, patient will need to be set up with home oxygen if otherwise stable. Two-step pending. As patient is hypoxic on exertion and cannot be set up with oxygen at time of admission we agree she needs to be admitted at this time, and agree with additional assessment and management as noted above. At time of bedside assessment has trace bibasilar crackles but is otherwise without wheezes/rales. PG Care Time/CCT Total # of Minutes Spent Total Time Spent with Patient: Total time spent is greater than 50% in coordination of care (as documented) at patient's floor/unit and/or counseling patient: Coding [place] [address] INT INP/OBS CARE 3/75MIN Patient Type Established History Comprehensive Exam Comprehensive Medical Decision Making High Complexity Diagnoses Pleural effusion J90 CHF exacerbation I50.9 Hypoxia R09.02 Type 2 diabetes mellitus with stage 4 chronic kidney disease, without long-term current use of insulin E11.22; N18.4 Chronic kidney disease stage: stage 4 (severe) 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 complication detail: with chronic kidney disease 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 complication status: with kidney complications 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 assistant terminal manager insulin use: without retirement use Paroxysmal atrial fibrillation I48.0 CKD (chronic kidney disease) N18.4 Chronic kidney disease stage: stage 4 (severe) Asthma J45.909 Gastroesophageal reflux disease, esophagitis presence not specified K21.9 Esophagitis presence: esophagitis presence not specified (4) Type II diabetes mellitus Chronic kidney disease stage: stage 4 (severe) 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 complication detail: with chronic kidney disease 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 complication status: with kidney complications 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 assistant terminal manager insulin use: without assistant terminal manager use Qualified Code(s): E11.22 - Type 2 diabetes mellitus with diabetic chronic kidney disease; N18.4 - Chronic kidney disease, stage 4 (severe) (6) CKD (chronic kidney disease) Chronic kidney disease stage: stage 4 (severe) Qualified Code(s): N18.4 - Chronic kidney disease, stage 4 (severe) (8) GERD (gastroesophageal reflux disease) Esophagitis presence: esophagitis presence not specified Qualified Code(s): K21.9 - Gastro-esophageal reflux disease without esophagitis
--- NOTE | 2023-04-29 15:58 | Electrocardiogram Report ---
Test Reason : Blood Pressure : / mmHG Vent. Rate : 081 BPM Atrial Rate : 081 BPM P-R Int : 000 ms QRS Dur : 118 ms QT Int : 428 ms P-R-T Axes : 000 037 207 degrees QTc Int : 497 ms AV dual-paced rhythm Abnormal ECG When compared with ECG of 17-APR-2023 05:53, Vent. rate has increased BY 20 BPM Confirmed by Ky Martins ([id number]) on 04/29/2023 3:57:52 PM Referred By: Confirmed By:Ky Martins
[2023-04-29] MEDS ORDERED: GLUCAGON FOR INJ 1 MG VIAL SQ PRN (17:00)
[2023-04-29] MEDS ORDERED: BETAMETHASONE VAL 0.1% CR 15 GM TOP PRN (17:00)
[2023-04-29] MEDS ORDERED: GLUCOSE 10 TAB/TUBE PO PRN (17:00)
[2023-04-29] MEDS ORDERED: GLUCOSE 40% GEL 15 GM TUBE PO PRN (17:00)
[2023-04-29] MEDS ORDERED: CARBOHYDRATES FOR HYPOGLYCEMIA PO PRN (17:00)
[2023-04-29] MEDS ORDERED: DEXTROSE 50% 50 ML SYRINGE IV PRN (17:00)
--- NOTE | 2023-04-29 18:25 | Oncology Consultation ---
Date of Consultation April 29, 2023 Assessment & Plan (1) Anemia: The patient has longstanding normocytic normochromic anemia which is chronic, most likely related to her kidney failure. At this point the recommendation would be continued regular CBC evaluations. Would recommend transfusion if the hemoglobin drops below 7 g/dL. Can check iron indicis and correct for iron deficiency. Would not recommend any invasive testing such as bone marrow biopsy or any other testing at this point. Reviewed the CT scan, there was no area to be biopsied. Rest per our colleagues with [facility] medicine. Case discussed with Juno Sparks PA-C, my colleague from [facility]. Hematology will continue to mil bland and make appropriate recommendations. Thank you for this interesting neurological consult History of Present Illness Attending Physician: Shelton Ramirez MD History of Present Illness Patient is a very pleasant 77-year-old woman, who has been in and out of the hospital recently because of recurrent pleural effusions. She has had multiple thoracentesis which have been cytologically negative for any malignancy. She had last CT scan of the chest performed on 04/17 without contrast which revealed bilateral pleural effusions, cardiomegaly and cardiac pacemakers. Her baseline hemoglobin has been around 9 to 10 g/dL. She does have JULIO, congestive heart failure, hypertensive heart disease. Reports no growing lumps anywhere. Reports no active bleeding or bruising. Allergies Allergy/AdvReac Type Severity Reaction Status Date / Time codeine Allergy Severe Anaphylaxis Verified 04/29/23 13:29 furosemide Allergy Severe SEVERE Verified 04/29/23 13:29 RASH, PT REPORTS A CROSS ALLERGY WITH SULFA celecoxib [From Celebrex] Allergy Intermediate RASH Verified 04/29/23 13:29 cephalexin [From Keflex] Allergy Intermediate Rash Verified 04/29/23 13:29 hydrocodone Allergy Intermediate Rash Verified 04/29/23 13:29 Iodinated Contrast Media Allergy Intermediate RASH Verified 04/29/23 13:29 nickel Allergy Intermediate Rash Verified 04/29/23 13:29 oxycodone Allergy Intermediate Rash Verified 04/29/23 13:29 Sulfa (Sulfonamide Allergy Intermediate RASH TO Verified 04/29/23 13:29 Antibiotics) SULFA DRUGS tetracycline Allergy Intermediate RASH Verified 04/29/23 13:29 capsaicin AdvReac Intermediate CREATINE Verified 04/29/23 13:29 ELEVATION diclofenac AdvReac Intermediate CREATINE Verified 04/29/23 13:29 ELEVATION propylene glycol AdvReac Intermediate CREATINE Verified 04/29/23 13:29 ELEVATION "PREP WITH BLUE DYE" Allergy Intermediate Rash Uncoded 04/29/23 13:29 Home Medications Medication Instructions Recorded Confirmed Type magnesium oxide 400 mg PO BID 07/26/18 04/29/23 History omega 4-bja-rxl-fish oil 1,000 mg 1,000 mg PO BID 07/26/18 04/29/23 History (120 mg-180 mg) capsule (Fish Oil) cetirizine 10 mg tablet (Zyrtec) 10 mg PO HS 08/22/19 04/29/23 History betamethasone valerate 0.1 % 1 applic topical UD PRN PSORIASIS 11/30/19 04/29/23 History topical cream blood-glucose meter (Accu-Chek 02/12/21 04/24/23 History Garima Plus Meter) nitroglycerin 0.4 mg/hr 1 patch transdermal QAM #90 ea 03/20/22 04/29/23 Rx transdermal 24 hour patch (Nitro-Dur) nifedipine 90 mg tablet,extended 90 mg PO HS #90 tabs 04/14/22 04/29/23 Rx release cholestyramine (with sugar) 4 gram 4 ea PO DIRECTED PRN Diarrhea 08/26/22 04/29/23 History oral powder levothyroxine 137 mcg capsule 137 mcg PO DAILY #90 caps 08/27/22 04/29/23 Rx albuterol sulfate 90 mcg/actuation 2 puff inhalation Q6H PRN 09/30/22 04/29/23 Rx aerosol inhaler shortness of breath or wheezing #8.5 grams budesonide-formoterol HFA 80 2 puff inhalation BID #3 Inhalers 09/30/22 04/29/23 Rx mcg-4.5 mcg/actuation aerosol inhaler (Symbicort) azelastine 137 mcg (0.1 %) nasal 2 spray intranasal DAILY PRN 11/17/22 04/29/23 Rx spray aerosol ALLERGIES #30 mL blood sugar diagnostic (Accu-Chek #100 ea 12/19/22 04/24/23 Rx Garima Plus test strips) potassium chloride 20 mEq 20 meq PO QAM #90 tabs 01/09/23 04/29/23 Rx tablet,extended release(part/cryst) (Klor-Con M) apixaban 5 mg tablet (Eliquis) 5 mg PO BID #180 tabs 01/15/23 04/29/23 Rx montelukast 10 mg tablet 10 mg PO DAILY #90 tabs 01/19/23 04/29/23 Rx (Singulair) acetaminophen 650 mg 1,300 mg PO BID 01/20/23 04/29/23 History tablet,extended release (Tylenol Arthritis Pain) lansoprazole 30 mg capsule,delayed 30 mg PO DAILY #90 caps 02/04/23 04/29/23 Rx release Hospital [facility] Home[facility] ([facility]ospital [facility] ea 03/03/23 04/24/23 Rx Bed) amiodarone 200 mg tablet 200 mg PO DAILY #30 tabs 03/06/23 04/29/23 Rx calcitriol 0.5 mcg capsule 0.25 mcg PO DAILY 03/23/23 04/29/23 History atorvastatin 40 mg tablet 40 mg PO HS #90 tabs 04/15/23 04/29/23 Rx dulaglutide 1.5 mg/0.5 mL 1.5 mg subcut WK 04/15/23 04/29/23 History subcutaneous pen injector (Trulicity) levalbuterol HCl 0.63 mg/3 mL 0.63 mg (3 mL) inhalation Q4H PRN 04/15/23 04/29/23 Rx solution for nebulization Cough #90 mL mirtazapine 7.5 mg tablet 7.5 mg PO DAILY #30 tabs 04/15/23 04/29/23 Rx lidocaine 5 % topical patch 1 patch transdermal QAM PRN pain 04/21/23 04/29/23 Rx 30 days #30 ea duloxetine 60 mg capsule,delayed 60 mg PO QAM #90 caps 04/24/23 04/29/23 Rx release (Cymbalta) prednisone 5 mg tablet 5 mg PO QAM #90 tabs 04/24/23 04/29/23 Rx bumetanide 1 mg tablet 1 mg PO DAILY #180 tabs 04/27/23 04/29/23 Rx carvedilol 25 mg tablet 25 mg PO BID #90 tabs 04/27/23 04/29/23 Rx ferrous sulfate 325 mg (65 mg 325 mg PO DAILY #30 tabs 04/27/23 04/29/23 Rx iron) tablet Patient History Medical History Breathlessness Acute respiratory failure with hypoxia CKD (chronic kidney disease) stage 4, GFR 15-29 ml/min Pulmonary edema Cardiomyopathy Non-ST elevation (NSTEMI) myocardial infarction Ventricular tachycardia Tachy-lina syndrome Elevated troponin Atrial fibrillation with RVR Sialoadenitis, unspecified Allergic rhinitis SI joint arthritis Abnormal PFT Mild persistent asthma Active asthma Sinus congestion Chronic dyspnea On anticoagulant therapy Paroxysmal atrial fibrillation Iron deficiency anemia Atrial fibrillation Varicose veins of legs Seasonal allergies Chronic steroid use Esophageal dysmotility Restless leg syndrome Hyperlipidemia Hearing loss, right Hiatal hernia [facility] current use of systemic steroids Obesity Polyneuropathy Tinnitus of right ear Gastric polyp Type II diabetes mellitus (Unknown) Esophageal spasm Schatzki's ring HTN (hypertension) Essential hypertension Peptic ulcer disease Irritable bowel syndrome Hypothyroidism Spinal meningioma Psoriatic arthropathy GERD (gastroesophageal reflux disease) Osteoarthritis, knee Surgical History History of laparoscopy (~06/2020) History of colectomy (~06/2020) History of total left hip arthroplasty History of total hip arthroplasty History of dilatation and curettage History of tooth extraction History of tonsillectomy and adenoidectomy History of cardiac cath History of arthroscopy Status post total replacement of left shoulder History of colonoscopy History of esophagogastroduodenoscopy (EGD) History of total abdominal hysterectomy and bilateral salpingo-oophorectomy History of arthroscopy of right shoulder History of total knee arthroplasty History of foot surgery History of cholecystectomy History of cataract extraction History of lumbar fusion H/O thyroidectomy Family History Mother Arthritis Hypertension Father Lung cancer Hypertension Family/Other Family hx of colon cancer Unknown Allergies Breast cancer Hypertension Brother Cancer Heart disease Aunt Colorectal cancer Other No family history of adverse response to anesthesia No family history of bleeding disorder Denies family history of Ovarian cancer Prostate cancer Diabetes Hearing loss Myocardial infarction Stroke Asthma Social History Smoking Status: Never smoker Tobacco Type: Cigarettes Age Quit Using Tobacco: 26; Second Hand Exposure: No; Do You Dip or Chew Tobacco: No; Hx Alcohol Use: No Hx Substance Use: No Preferred Language: Slovenian Communication Ability: Effective Communication Ability Comment: DEAF RIGHT EAR Visual Impairment: Limited Hearing Ability: Hard of Hearing [employer] Required: No Beliefs That Will Affect Care: None marital status: / Current Living Situation: Alone Current Living Situation Comment: [place] current occupational status: retired current occupation: Retired How many Children do You have: 0 Feels Safe at Home: Yes Childhood Exposure to Second-Hand Smoke: Yes caffeine: Yes Dental Care, Regularly: Yes Physical Activity Frequency: Does not Exercise Physical Activity Frequency Comment: Hip problems Seatbelt Use: always Sunscreen Use: No Assistive Devices: Cane, Nebulizer and Walker Results & Data Vital Signs (Past 12 Hours) Vital Signs Temp Pulse Resp BP Pulse Ox O2 Del Method 04/29/23 17:31 71 04/29/23 13:37 71 04/29/23 09:30 Room Air 04/29/23 09:30 Room Air 04/29/23 09:27 36.5 C 73 20 93/60 L 95 Room Air
[2023-04-29] MEDS: INSULIN ASPART PER UNIT CHARGE SC SCH ×2 (18:55→21:43)
[2023-04-29] MEDS: carvediloL 25 MG TAB PO SCH (19:22)
[2023-04-29] MEDS: ACETAMINOPHEN 325 MG TAB PO SCH (21:41)
[2023-04-29] MEDS: NIFEdipine EXTENDED REL 30 MG TABCR PO SCH (21:42)
[2023-04-29] MEDS: MAGNESIUM OXIDE 400 MG TAB PO SCH (21:42)
[2023-04-29] MEDS: CETIRIZINE HCL 10 MG TABLET PO SCH (21:43)
[2023-04-29] MEDS: ATORVASTATIN 40 MG TAB PO SCH (21:43)
[2023-04-30 05:54] LABS: Appearance Urine Clear (Clear); Bacteria Urine Automated Negative (Negative); Bilirubin Urine Negative (Negative); Blood Urine Negative (Negative); Color Urine Yellow; Epithelial Cell Urine Auto >30 /lpf (0-5); Glucose Urine UA Negative (Negative); Ketones Urine Trace (Negative); Leukocyte Esterase Urine Negative (Negative); Nitrite Urine Negative (Negative); Protein Urine 1+ (Negative); RBC Urine Automated 0-4 /hpf (0-4); Specific Gravity Urine 1.024 (1.000-1.030); Urobilinogen Urine Negative (Negative)
[2023-04-30] MEDS: LEVOTHYROXINE SODIUM 137 MCG TABLET PO SCH (05:59)
[2023-04-30 06:11] LABS: Basophils # (auto) 0.02 K/uL (0.00-0.20); Basophils % (auto) 0.4 %; Eosinophils # (auto) 0.15 K/uL (0.00-0.50); Eosinophils % (auto) 3.2 %; Hematocrit (blood only) 29.8 % (37.0-47.0); Hemoglobin 8.9 g/dl (12.0-16.0); Immature Granulocytes # (auto) 0.02 K/uL (0.01-0.20); Immature Granulocytes % (auto) 0.4 %; Lymphocytes # (auto) 1.15 K/uL (1.20-3.40); Lymphocytes % (auto) 24.5 %; Mean Corpuscular Hemoglobin 25.9 pg (25.0-34.0); Mean Corpuscular Hgb Conc 29.9 g/dL (32.0-36.0); Mean Corpuscular Volume 86.9 fL (80.0-100.0); Mean Platelet Volume 9.8 fL (9.4-12.4); Monocytes # (auto) 0.52 K/uL (0.11-0.59); Monocytes % (auto) 11.1 %; Neutrophils # (auto) 2.83 K/uL (1.40-6.50); Neutrophils % (auto) 60.4 %; Platelet Count 384 K/uL (130-400); RDW Coefficient of Variation 22.2 % (11.5-14.5); RDW Standard Deviation 70.4 fL (36.4-46.3); Red Blood Count 3.43 M/uL (4.20-5.40); White Blood Count 4.69 K/ul (4.8-10.8)
[2023-04-30 06:25] LABS: BUN Creatinine Ratio 9.8 (10-20); Calcium 8.7 mg/dl (8.6-10.3); Est GFR (African American) 19.5 ml/min; Est GFR (Non-African American) 16.8 ml/min; Potassium 4.2 mmol/L (3.5-5.1)
[2023-04-30 06:35] LABS: Anisocytosis Present; Rouleaux 1+
[2023-04-30] MEDS: PANTOprazole 40 MG TAB PO SCH (08:28)
[2023-04-30] MEDS: DULoxetine HCL 60 MG CAP PO SCH (08:28)
[2023-04-30] MEDS: ACETAMINOPHEN 325 MG TAB PO SCH ×4 (08:28→20:58)
[2023-04-30] MEDS: FERROUS SULFATE 325 MG TAB PO SCH (08:28)
[2023-04-30] MEDS: MONTELUKAST SODIUM 10 MG TABLET PO SCH (08:29)
[2023-04-30] MEDS: predniSONE 5 MG TAB PO SCH (08:29)
[2023-04-30] MEDS: AMIODARONE 200 MG TAB PO SCH (08:29)
[2023-04-30] MEDS: FLUTICASONE/VILANTEROL 100/25MCG 14 PUFFS/INHALER INH SCH (08:30)
[2023-04-30] MEDS: MAGNESIUM OXIDE 400 MG TAB PO SCH ×2 (08:30→20:55)
[2023-04-30] MEDS: MIRTAZAPINE TAB 15 MG TAB PO SCH (08:30)
[2023-04-30] MEDS: INSULIN ASPART PER UNIT CHARGE SC SCH ×4 (08:59→20:51)
[2023-04-30] MEDS: carvediloL 25 MG TAB PO SCH ×2 (09:05→17:17)
--- NOTE | 2023-04-30 10:58 | Pulmonary Consultation ---
Date of Consultation April 30, 2023 Assessment & Plan (1) Acute respiratory failure with hypoxia: (2) Pleural effusion: (3) CKD (chronic kidney disease) stage 4, GFR 15-29 ml/min: Plan IMPRESSION: 77-year-old female with a recent history of recurrent pleural effusions, CHF, CKD 4, and dyspnea exertion who presents with acute hypoxic respiratory failure. RECOMMENDATIONS: 1. Acute respiratory failure with hypoxia - Recurrent. The patient has undergone thoracentesis x 3. 2 of her effusions were exudative with the last of which being transudative. Patient has had negative cytology in the past. Her effusions have seem to recur in a relatively short period of time. On review of chest films today, her effusions have not significantly enlarged since her most recent on 04/24. The patient warrants aggressive management of underlying causes of her accumulation of pleural fluid. I do not think that repeat thoracentesis is necessary at this time. The patient could be evaluated for oxygen requirement in the outpatient setting. She could undergo two-step study in the hospital. We can plan seeing the patient in follow-up in the outpatient setting in the next few weeks with a chest x-ray. This, the patient appears to be near her baseline at this time. 2. Pleural Effusions - Recurrent and bilateral nature. Not impressive in size at this point. She is requiring 2 L nasal cannula to maintain saturations. She has undergone thoracentesis x 3. I do feel the patient should be evaluated for oxygen therapy in the outpatient setting. We can plan on seeing her in follow- up in the office with repeat chest x-ray in the next few weeks. Will defer thoracentesis at this time with goals aimed at continuing to reduce reaccumulation of pleural fluid in the setting of the patient with known heart failure. 3. Nocturnal hypoxemia - Patient reports her hypoxemia appears to be worse at night when she awakens to use the restroom. She states that she has previously undergone polysomnography which showed restless legs alone at that time. The patient may benefit from outpatient polysomnography versus internal oxygen study. Again, this is something that could be evaluated in the outpatient setting as well. Would recommend that if she does require oxygen #2 step, that she uses the oxygen value needed on exertion for nighttime sleep. Thank you for allowing us to participate in the care of this pleasant patient. History of Present Illness Reason for Consultation: B/l pleural effusion; recent hx of exudative taps Requesting Physician: Juno Sparks PA-C Attending Physician: Willie Martinez MD History of Present Illness Patient is a 77-year-old female with a significant past medical history of diastolic heart failure, chronic kidney disease, atrial fibrillation on anticoagulation who presents with ongoing complaints of dyspnea on exertion with recurrent episodes of bilateral pleural effusions. The patient is undergone thoracentesis x 3. She does report that she typically does notice some brief improvement in her symptoms after thoracentesis, however her symptoms do return a few days after. She states that she mainly notices hypoxia with her home oxygen monitor when she awakes and then only to use the restroom. She does get short of breath with exertion which is unchanged. She had undergone evaluation emergency department which showed persistent to slightly reduce bilateral effusions. They do not appear worse today. She was slightly hypoxic and is currently requiring 3 L nasal cannula. She offers no complaints of fevers, chills, worsening cough, palpitations, dizziness, lightheadedness, or hemoptysis. Allergies Allergy/AdvReac Type Severity Reaction Status Date / Time codeine Allergy Severe Anaphylaxis Verified 04/29/23 13:29 furosemide Allergy Severe SEVERE Verified 04/29/23 13:29 RASH, PT REPORTS A CROSS ALLERGY WITH SULFA celecoxib [From Celebrex] Allergy Intermediate RASH Verified 04/29/23 13:29 cephalexin [From Keflex] Allergy Intermediate Rash Verified 04/29/23 13:29 hydrocodone Allergy Intermediate Rash Verified 04/29/23 13:29 Iodinated Contrast Media Allergy Intermediate RASH Verified 04/29/23 13:29 nickel Allergy Intermediate Rash Verified 04/29/23 13:29 oxycodone Allergy Intermediate Rash Verified 04/29/23 13:29 Sulfa (Sulfonamide Allergy Intermediate RASH TO Verified 04/29/23 13:29 Antibiotics) SULFA DRUGS tetracycline Allergy Intermediate RASH Verified 04/29/23 13:29 capsaicin AdvReac Intermediate CREATINE Verified 04/29/23 13:29 ELEVATION diclofenac AdvReac Intermediate CREATINE Verified 04/29/23 13:29 ELEVATION propylene glycol AdvReac Intermediate CREATINE Verified 04/29/23 13:29 ELEVATION "PREP WITH BLUE DYE" Allergy Intermediate Rash Uncoded 04/29/23 13:29 Home Medications Medication Instructions Recorded Confirmed Type magnesium oxide 400 mg PO BID 07/26/18 04/29/23 History omega 4-fne-vnv-fish oil 1,000 mg 1,000 mg PO BID 07/26/18 04/29/23 History (120 mg-180 mg) capsule (Fish Oil) cetirizine 10 mg tablet (Zyrtec) 10 mg PO HS 08/22/19 04/29/23 History betamethasone valerate 0.1 % 1 applic topical UD PRN PSORIASIS 11/30/19 04/29/23 History topical cream blood-glucose meter (Accu-Chek 02/12/21 04/24/23 History Garima Plus Meter) nitroglycerin 0.4 mg/hr 1 patch transdermal QAM #90 ea 03/20/22 04/29/23 Rx transdermal 24 hour patch (Nitro-Dur) nifedipine 90 mg tablet,extended 90 mg PO HS #90 tabs 04/14/22 04/29/23 Rx release cholestyramine (with sugar) 4 gram 4 ea PO DIRECTED PRN Diarrhea 08/26/22 04/29/23 History oral powder levothyroxine 137 mcg capsule 137 mcg PO DAILY #90 caps 08/27/22 04/29/23 Rx albuterol sulfate 90 mcg/actuation 2 puff inhalation Q6H PRN 09/30/22 04/29/23 Rx aerosol inhaler shortness of breath or wheezing #8.5 grams budesonide-formoterol HFA 80 2 puff inhalation BID #3 Inhalers 09/30/22 04/29/23 Rx mcg-4.5 mcg/actuation aerosol inhaler (Symbicort) azelastine 137 mcg (0.1 %) nasal 2 spray intranasal DAILY PRN 11/17/22 04/29/23 Rx spray aerosol ALLERGIES #30 mL blood sugar diagnostic (Accu-Chek #100 ea 12/19/22 04/24/23 Rx Garima Plus test strips) potassium chloride 20 mEq 20 meq PO QAM #90 tabs 01/09/23 04/29/23 Rx tablet,extended release(part/cryst) (Klor-Con M) apixaban 5 mg tablet (Eliquis) 5 mg PO BID #180 tabs 01/15/23 04/29/23 Rx montelukast 10 mg tablet 10 mg PO DAILY #90 tabs 01/19/23 04/29/23 Rx (Singulair) acetaminophen 650 mg 1,300 mg PO BID 01/20/23 04/29/23 History tablet,extended release (Tylenol Arthritis Pain) lansoprazole 30 mg capsule,delayed 30 mg PO DAILY #90 caps 02/04/23 04/29/23 Rx release Hospital Bed Homecare (Hospital #1 ea 03/03/23 04/24/23 Rx Bed) amiodarone 200 mg tablet 200 mg PO DAILY #30 tabs 03/06/23 04/29/23 Rx calcitriol 0.5 mcg capsule 0.25 mcg PO DAILY 03/23/23 04/29/23 History atorvastatin 40 mg tablet 40 mg PO HS #90 tabs 04/15/23 04/29/23 Rx dulaglutide 1.5 mg/0.5 mL 1.5 mg subcut WK 04/15/23 04/29/23 History subcutaneous pen injector (Trulicity) levalbuterol HCl 0.63 mg/3 mL 0.63 mg (3 mL) inhalation Q4H PRN 04/15/23 04/29/23 Rx solution for nebulization Cough #90 mL mirtazapine 7.5 mg tablet 7.5 mg PO DAILY #30 tabs 04/15/23 04/29/23 Rx lidocaine 5 % topical patch 1 patch transdermal QAM PRN pain 04/21/23 04/29/23 Rx 30 days #30 ea duloxetine 60 mg capsule,delayed 60 mg PO QAM #90 caps 04/24/23 04/29/23 Rx release (Cymbalta) prednisone 5 mg tablet 5 mg PO QAM #90 tabs 04/24/23 04/29/23 Rx bumetanide 1 mg tablet 1 mg PO DAILY #180 tabs 04/27/23 04/29/23 Rx carvedilol 25 mg tablet 25 mg PO BID #90 tabs 04/27/23 04/29/23 Rx ferrous sulfate 325 mg (65 mg 325 mg PO DAILY #30 tabs 04/27/23 04/29/23 Rx iron) tablet Patient History Medical History (Updated 04/30/23 @ 11:09 by German Melchor PA-C) Acute respiratory failure with hypoxia Breathlessness CKD (chronic kidney disease) stage 4, GFR 15-29 ml/min baseline creatinine 2.0-2.2 range; nephrology (Dr. Stevenson) monitoring Pulmonary edema Cardiomyopathy Non-ST elevation (NSTEMI) myocardial infarction Ventricular tachycardia Tachy-lina syndrome Elevated troponin Atrial fibrillation with RVR Sialoadenitis, unspecified Allergic rhinitis SI joint arthritis Abnormal PFT Mild persistent asthma Active asthma inhaler daily/prn, nebulizer prn Sinus congestion Chronic dyspnea On anticoagulant therapy eliquis bid Paroxysmal atrial fibrillation follows with Dr. Mitchell on eliquis bid Iron deficiency anemia Atrial fibrillation Varicose veins of legs Seasonal allergies Sometimes gets bronchitis, uses nebulizer for this and allergies Chronic steroid use FOR PSORITRIC ARTHRITIS Esophageal dysmotility Restless leg syndrome Hyperlipidemia Hearing loss, right DEAF RIGHT EAR Hiatal hernia senior living current use of systemic steroids for psoriatic arthritis Obesity Polyneuropathy Tinnitus of right ear Gastric polyp Type II diabetes mellitus (Unknown) Esophageal spasm Schatzki's ring HTN (hypertension) Essential hypertension Peptic ulcer disease Irritable bowel syndrome Hypothyroidism Spinal meningioma On c-spine- follows with [facility] neurosurgery specialist (Dr. Ken)- under surveillance/stable/no indication for surgical intervention Psoriatic arthropathy GERD (gastroesophageal reflux disease) CONTROLLED WITH MEDS Osteoarthritis, knee Surgical History History of laparoscopy (~06/2020) exploratory after colectomy @ [facility] History of colectomy (~06/2020) @ [facility] History of total left hip arthroplasty 12/2019 History of total hip arthroplasty RIGHT 05/27/19. Complicated by post-op seroma requiring multiple needle aspirations.LEFT HIP 01/10/20 History of dilatation and curettage History of tooth extraction History of tonsillectomy and adenoidectomy History of cardiac cath X2; 10+ YEARS AGO (NO STENTS) History of arthroscopy RT/LEFT KNEE Status post total replacement of left shoulder hx of History of colonoscopy last 03/2020 History of esophagogastroduodenoscopy (EGD) History of total abdominal hysterectomy and bilateral salpingo-oophorectomy History of arthroscopy of right shoulder History of total knee arthroplasty RIGHT History of foot surgery RT FOOT FUSION History of cholecystectomy History of cataract extraction RT/LEFT History of lumbar fusion H/O thyroidectomy Family History Mother Arthritis Hypertension Father Lung cancer Hypertension Family/Other Family hx of colon cancer Unknown Allergies Breast cancer Hypertension Brother Cancer Heart disease Aunt Colorectal cancer Other No family history of adverse response to anesthesia No family history of bleeding disorder Denies family history of Ovarian cancer Prostate cancer Diabetes Hearing loss Myocardial infarction Stroke Asthma Social History Smoking Status: Former smoker Tobacco Type: Cigarettes Age Quit Using Tobacco: 26; Second Hand Exposure: No; Do You Dip or Chew Tobacco: No; Hx Alcohol Use: No Hx Substance Use: No Preferred Language: Swedish Communication Ability: Effective Communication Ability Comment: DEAF RIGHT EAR Visual Impairment: Limited Hearing Ability: Hard of Hearing Thread Spooler Required: No Beliefs That Will Affect Care: None marital status: / Current Living Situation: Family Current Living Situation Comment: [place] current occupational status: retired current occupation: Retired How many Children do You have: 0 Feels Safe at Home: Yes Childhood Exposure to Second-Hand Smoke: Yes caffeine: Yes Dental Care, Regularly: Yes Physical Activity Frequency: Does not Exercise Physical Activity Frequency Comment: Hip problems Seatbelt Use: always Sunscreen Use: No Assistive Devices: None Review of Systems Review of Systems: A complete 10 point review of systems was reviewed with the patient with pertinent positives and negatives as per history of present illness. All else were negative. Physical Exam Physical Exam: VITAL SIGNS - Vital signs and nursing notes were reviewed. GENERAL - 77-year-old female appearing her stated age who is in no acute distress. Communicates well with provider and answers questions appropriately. NOSE - Midline and without cyanosis. No epistaxis or purulent drainage noted. MOUTH/OROPHARYNX - Without perioral cyanosis. LUNGS - Chest wall evaluation demonstrates normal chest wall A:P diameter. Auscultation reveals decreased breath sounds at the bilateral bases. Scant rales appreciated. CARDIAC - RRR with S1/S2. No murmur, rubs, or gallops appreciated. EXTREMITIES - Nail clubbing not present. No peripheral cyanosis. No pretibial edema present. +3/5 radial palpated throughout. PSYCH - A&Ox3 and cooperates fully with examiner. Pt is very pleasant and interacts well with examiner. Results & Data Results & Data Vital Signs (Past 12 Hours) Vital Signs Temp Pulse Pulse Resp BP Pulse Ox O2 Del Method 04/30/23 09:00 Nasal Cannula 04/30/23 07:47 36.9 C 70 18 107/66 92 Nasal Cannula 04/30/23 07:00 70 04/30/23 03:49 36.6 C 69 18 130/69 96 Room Air 04/29/23 23:59 79 04/29/23 23:58 71 04/29/23 23:23 36.7 C 74 18 116/73 95 Nasal Cannula O2 Flow Rate 04/30/23 09:00 3 04/30/23 07:47 2 04/30/23 07:00 04/30/23 03:49 04/29/23 23:59 04/29/23 23:58 04/29/23 23:23 2 PG Care Time/CCT Total # of Minutes Spent Total Time Spent with Patient: Total time spent is greater than 50% in coordination of care (as documented) at patient's floor/unit and/or counseling patient: Coding Level of Care Code 18098 INT INP/OBS CARE 3/75MIN Diagnoses Acute respiratory failure with hypoxia J96.01 Pleural effusion J90 CKD (chronic kidney disease) stage 4, GFR 15-29 ml/min N18.4
--- NOTE | 2023-04-30 16:54 | Hematology/Oncology Prog Note ---
Date of Service April 30, 2023 Assessment & Plan (1) Anemia: Plan: Will recommend a comprehensive workup from a paraprotein disorder standpoint, including repeating monoclonal protein studies, 24-hour urine protein evaluation. Will get other outpatient testing including bone marrow biopsy and fat aspirate based on the results of this preliminary workup. Previously faint IgM kappa monoclonal bands were detected in blood Plan Patient informed about this plan, agrees. Hematology will continue to follow appropriate recommendations Admission and Anticipated Discharge Date Admission Date: April 29, 2023 Subjective Patient evaluated again today, continues to have shortness of breath. She has been admitted for multiple recurrent pleural effusion has undergone thoracentesis multiple times which has been negative. She was supposed to follow-up in the hematology clinic for paraprotein disorder as she had elevated light chains and an IgM monoclonal protein in the blood. Reports no other symptoms. Reports no bleeding bruising. Reports no fever chills Results & Data Vital Signs (Past 12 Hours) Vital Signs Temp Pulse Pulse Pulse Pulse Resp Resp 04/30/23 16:05 36.7 C 89 18 04/30/23 14:15 71 04/30/23 11:55 96 H 80 20 04/30/23 11:35 36.9 C 77 18 04/30/23 09:00 04/30/23 07:47 36.9 C 70 18 04/30/23 07:00 70 Resp BP Pulse Ox Pulse Ox Pulse Ox O2 Del Method O2 Flow Rate 04/30/23 16:05 104/64 91 Nasal Cannula 2 04/30/23 14:15 04/30/23 11:55 16 90 92 04/30/23 11:35 96/56 L 97 Nasal Cannula 2 04/30/23 09:00 Nasal Cannula 3 04/30/23 07:47 107/66 92 Nasal Cannula 2 04/30/23 07:00
--- NOTE | 2023-04-30 18:04 | Hospitalist Progress Note ---
Date of Service April 30, 2023 Assessment & Plan (1) Acute respiratory failure with hypoxia: Plan: 1. Acute respiratory failure with hypoxia - Recurrent. The patient has undergone thoracentesis x 3. 2 of her effusions were exudative with the last of which being transudative. Patient has had negative cytology in the past. Her effusions have seem to recur in a relatively short period of time. On review of chest films today, her effusions have not significantly enlarged since her most recent on 04/24. Discussed with consulting employment director, we proceeded with echocardiogram, consulted pulmonology did not recommend repeat thoracentesis at this point, patient could be a candidate for pleural catheter, denies echocardiogram showed improved ejection fraction (2) Pleural effusion: Plan: 2 - Recurrent and bilateral nature She has undergone thoracentesis x 3. (3) CKD (chronic kidney disease) stage 4, GFR 15-29 ml/min: Plan Assessment & Plan (1) Pleural effusion: Plan: Worsening COMBS, SOB at rest, chest tightness, and hypoxia over the past week [facility] admission 3 thoracenteses: 04/04 (right), 04/19 (left), and 04/20 (right) -all exudative, bloody Pleural fluid cytology was negative for malignancy x3 Chest CT on 04/17 noted no mediastinal lymphadenopathy; however, pulmonology note on 04/21 noted "anterior mediastinal lymphadenopathy" Patient has been unable to get contrast dye due to her kidney function Per pulmonology, pleural effusion is stable; unlikely to repeat thoracentesis Discussed with neurology repeat echocardiogram (2) CHF exacerbation: Plan: Last echo on 04/04/2023 revealed LVEF at 55 to 60% BNP elevated at 179 (however this is lower than last admission, when it was at 217 on 03/27) (3) Hypoxia: Plan: Patient has a pulse ox at home and reports that she dropped to 80% range 04/27, 70% range on 04/28 SPO2 95% on RA at time of admission Continuous oxygen supplementation as needed to maintain SPO2 >94% (4) Type II diabetes mellitus: Plan: Last A1c was 6.6% on 04/16/2023 Hold [facility] BSG checks ACHS She has done okay on SSI without basal in the past admissions Goal BSG range 110-140, CF 50, no carb ratio T2DM diet Adjust regimen as needed (5) Paroxysmal atrial fibrillation: Plan: S/p ICD placement EKG AV dual paced rhythm at 81 bpm Continue carvedilol, amiodarone Hold Eliquis in setting of potential exudative pleural effusions (6) CKD (chronic kidney disease): Plan: Elevated creatinine at 2.95 (baseline 2.3 range), EGFR at 14.8 Avoid nephrotoxic agents (7) Asthma: Plan: Continue albuterol as needed (8) GERD (gastroesophageal reflux disease): Plan: Continue lansoprazole Admission and Anticipated Discharge Date Admission Date: April 29, 2023 Subjective continues to have shortness of breath. She has been admitted for multiple recurrent pleural effusion has undergone thoracentesis multiple times which has been negative. She was supposed to follow-up in the hematology clinic for paraprotein disorder as she had elevated light chains and an IgM monoclonal protein in the blood. Review of Systems Review of Systems: A complete 10 point review of systems was reviewed with the patient with pertinent positives and negatives as per history of present illness. All else were negative. Physical Exam Physical Exam: VITAL SIGNS - Vital signs and nursing notes were reviewed. GENERAL - 77-year-old female appearing her stated age who is in no acute distress. Communicates well with provider and answers questions appropriately. NOSE - Midline and without cyanosis. No epistaxis or purulent drainage noted. MOUTH/OROPHARYNX - Without perioral cyanosis. LUNGS - Chest wall evaluation demonstrates normal chest wall A:P diameter. Auscultation reveals decreased breath sounds at the bilateral bases. Scant rales appreciated. CARDIAC - RRR with S1/S2. No murmur, rubs, or gallops appreciated. EXTREMITIES - Nail clubbing not present. No peripheral cyanosis. No pretibial edema present. +3/5 radial palpated throughout. PSYCH - A&Ox3 and cooperates fully with examiner. Pt is very pleasant and interacts well with examiner. Results & Data Results & Data Vital Signs (Past 12 Hours) Vital Signs Temp Pulse Pulse Pulse Pulse Resp Resp 04/30/23 17:00 04/30/23 16:05 36.7 C 89 18 04/30/23 14:15 71 04/30/23 11:55 96 H 80 20 04/30/23 11:35 36.9 C 77 18 04/30/23 09:00 04/30/23 07:47 36.9 C 70 18 04/30/23 07:00 70 Resp BP Pulse Ox Pulse Ox Pulse Ox Pulse Ox O2 Del Method 04/30/23 17:00 94 04/30/23 16:05 104/64 91 Nasal Cannula 04/30/23 14:15 04/30/23 11:55 16 90 92 04/30/23 11:35 96/56 L 97 Nasal Cannula 04/30/23 09:00 Nasal Cannula 04/30/23 07:47 107/66 92 Nasal Cannula 04/30/23 07:00 O2 Del Method O2 Flow Rate O2 Flow Rate 04/30/23 17:00 Nasal Cannula 1 04/30/23 16:05 2 04/30/23 14:15 04/30/23 11:55 04/30/23 11:35 2 04/30/23 09:00 3 04/30/23 07:47 2 04/30/23 07:00 PG Care Time/CCT Total # of Minutes Spent Total Time Spent with Patient: Total time spent is greater than 50% in coordination of care (as documented) at patient's floor/unit and/or counseling patient: Coding Level of Care Code 46825 SUB INP/OBS CARE 3/50MIN Diagnoses Acute respiratory failure with hypoxia J96.01 Pleural effusion J90 CKD (chronic kidney disease) stage 4, GFR 15-29 ml/min N18.4
[2023-04-30] MEDS: CETIRIZINE HCL 10 MG TABLET PO SCH (20:55)
[2023-04-30] MEDS: ATORVASTATIN 40 MG TAB PO SCH (20:56)
[2023-04-30] MEDS: NIFEdipine EXTENDED REL 30 MG TABCR PO SCH (20:57)
[2023-05-01] MEDS: LEVOTHYROXINE SODIUM 137 MCG TABLET PO SCH (06:01)
[2023-05-01 07:30] LABS: Basophils # (auto) 0.05 K/uL (0.00-0.20); Eosinophils # (auto) 0.14 K/uL (0.00-0.50); Eosinophils % (auto) 2.8 %; Hematocrit (blood only) 29.5 % (37.0-47.0); Immature Granulocytes # (auto) 0.02 K/uL (0.01-0.20); Immature Granulocytes % (auto) 0.4 %; Lymphocytes # (auto) 1.25 K/uL (1.20-3.40); Lymphocytes % (auto) 24.8 %; Mean Corpuscular Hemoglobin 26.6 pg (25.0-34.0); Mean Corpuscular Hgb Conc 30.5 g/dL (32.0-36.0); Mean Corpuscular Volume 87.3 fL (80.0-100.0); Mean Platelet Volume 9.6 fL (9.4-12.4); Monocytes # (auto) 0.55 K/uL (0.11-0.59); Monocytes % (auto) 10.9 %; Neutrophils # (auto) 3.03 K/uL (1.40-6.50); Neutrophils % (auto) 60.1 %; Platelet Count 369 K/uL (130-400); RDW Coefficient of Variation 22.5 % (11.5-14.5); RDW Standard Deviation 71.1 fL (36.4-46.3); Red Blood Count 3.38 M/uL (4.20-5.40); White Blood Count 5.04 K/ul (4.8-10.8)
[2023-05-01 07:48] LABS: Calcium 8.6 mg/dl (8.6-10.3); Creatinine Clr Calc Pharmacy 25.5 ml/min
[2023-05-01 08:06] LABS: Anisocytosis Present; Polychromasia 1+; Rouleaux 1+
[2023-05-01] MEDS: MIRTAZAPINE TAB 15 MG TAB PO SCH (08:20)
[2023-05-01] MEDS: MONTELUKAST SODIUM 10 MG TABLET PO SCH (08:20)
[2023-05-01] MEDS: MAGNESIUM OXIDE 400 MG TAB PO SCH ×2 (08:20→20:51)
[2023-05-01] MEDS: DULoxetine HCL 60 MG CAP PO SCH (08:20)
[2023-05-01] MEDS: AMIODARONE 200 MG TAB PO SCH (08:21)
[2023-05-01] MEDS: PANTOprazole 40 MG TAB PO SCH (08:21)
[2023-05-01] MEDS: predniSONE 5 MG TAB PO SCH (08:21)
[2023-05-01] MEDS: FERROUS SULFATE 325 MG TAB PO SCH (08:22)
[2023-05-01] MEDS: FLUTICASONE/VILANTEROL 100/25MCG 14 PUFFS/INHALER INH SCH (08:22)
[2023-05-01] MEDS: carvediloL 25 MG TAB PO SCH ×2 (08:22→16:46)
[2023-05-01] MEDS: INSULIN ASPART PER UNIT CHARGE SC SCH ×4 (08:58→20:50)
[2023-05-01] MEDS ORDERED: metOLazone 5 MG TABLET PO SCH (09:00)
[2023-05-01] MEDS: BUMETANIDE 2 MG in SYRINGE 0 ML IV SCH ×2 (09:22→16:50)
[2023-05-01] MEDS: ACETAMINOPHEN 325 MG TAB PO SCH ×4 (09:22→20:53)
--- NOTE | 2023-05-01 13:16 | XCELERA ---
[id number] \\[id number]
--- NOTE | 2023-05-01 15:55 | Nephrology Consultation ---
Date of Consultation May 01, 2023 Assessment & Plan (1) Acute kidney injury superimposed on CKD: (2) Pleural effusion: (3) Hypoxia: (4) Anemia: (5) Anemia, unspecified: Plan 77 yo F with stage 3B/4 CKD, b/l cr 2.0 to 2.4, admitted with hypoxia, weight gain, JULIO and pleural effusion with h/o anemia, CHF and recurrent pl effusion. Admission cr was 3.0, now down to 2.4, close to baseline. Weight close to her baseline. has mild to moderate left pl effusion. BP relatively low. --continue IV Bumex, monitor intake/output, aim for net negative 0.5 L/24 h, consider changing Bumex to orally tomorrow. Eventually she may need to go back to her previous dose of Bumex 1 mg bid as an out pt. Do not see any need to add Metolazone unless, UO remains low on high dose IV Bumex since she was only on 1 mg orally --suggest iron study, may need JANELLE Thank you for allowing me to participate in your patient's care. It was a pleasure to see Mike. History of Present Illness Reason for Consultation: JULIO, volume overload, Pl effusion Attending Physician: Willie Martinez MD History of Present Illness Ms. Mike Vergara is a 77-year-old female with PMH of stage 3B/4 CKD, CHF with systolic and diastolic dysfunction, h/o paroxysmal A-fib, tachy-lina syndrome, admitted with hypoxic respiratory failure, JULIO and pleural effusion. Nephrology consult requested for management of JULIO and volume overload. Electronic medical records reviewed in detail during patient's visit. Mike was admitted to the hospital on 04/29/23 with progressive shortness of breath, chest tightness. She has history of bilateral pleural effusion and congestive heart failure with systolic and diastolic dysfunction, was recently hospitalized hospital from 04/15/23 to 04/21/23. During hospitalization she had JULIO with higher dose of diuretics and on discharge her diuretics was decreased to Bumex milligrams daily. She reports prior to that at home she was taking Bumex 1 mg twice a day. During last hospitalization she had thoracentesis twice on the right side and once in the left side. During current admission chest x-ray showed mild to moderate left-sided pleural effusion. Lab on admission showed JULIO, creatinine 3.0 mg/dl. She was started on Bumex 2 mg IV twice a day and metolazone 5 mg today. Her EDW seems to be about 210 to 212 lbs, on admission she was 5 lbs above her EDW, now getting close to baseline. She has anemia, was seen by hematology, concern for abnormal SPEP. Has stage 3B/4 CKD, baseline cr 2.0 to 2.4 mg/dl, EGFR 25 cc/min, secondary to microvascular disease and hypertensive nephrosclerosis. Has low grade proteinuria, UPCR 0.2. 02/14 renal US on 02/14/23 showed R kidney 10.1cm, L 10.7cm. Echocardiogram 01/25/23 revealed LVEF 35-40% w/ global hypokinesis, moderate LVH. On 01/29/23 she underwent pacemaker/AICD placement due to episodes of NSVT. She was then hospitalized 02/10/23-02/12/23 due to CHF. She was again readmitted on 03/27/23 with 2 kg weight gain, SOB and recurrent CHF. Renal function slowly improving over last few days, creatinine close to baseline. She denies SOB at rest but gets SOB when she is lying down. UO has been low but most likely unmeasured. Allergies Allergy/AdvReac Type Severity Reaction Status Date / Time codeine Allergy Severe Anaphylaxis Verified 04/29/23 13:29 furosemide Allergy Severe SEVERE Verified 04/29/23 13:29 RASH, PT REPORTS A CROSS ALLERGY WITH SULFA celecoxib [From Celebrex] Allergy Intermediate RASH Verified 04/29/23 13:29 cephalexin [From Keflex] Allergy Intermediate Rash Verified 04/29/23 13:29 hydrocodone Allergy Intermediate Rash Verified 04/29/23 13:29 Iodinated Contrast Media Allergy Intermediate RASH Verified 04/29/23 13:29 nickel Allergy Intermediate Rash Verified 04/29/23 13:29 oxycodone Allergy Intermediate Rash Verified 04/29/23 13:29 Sulfa (Sulfonamide Allergy Intermediate RASH TO Verified 04/29/23 13:29 Antibiotics) SULFA DRUGS tetracycline Allergy Intermediate RASH Verified 04/29/23 13:29 capsaicin AdvReac Intermediate CREATINE Verified 04/29/23 13:29 ELEVATION diclofenac AdvReac Intermediate CREATINE Verified 04/29/23 13:29 ELEVATION propylene glycol AdvReac Intermediate CREATINE Verified 04/29/23 13:29 ELEVATION "PREP WITH BLUE DYE" Allergy Intermediate Rash Uncoded 04/29/23 13:29 Home Medications Medication Instructions Recorded Confirmed Type magnesium oxide 400 mg PO BID 07/26/18 04/29/23 History omega 3-heg-lma-fish oil 1,000 mg 1,000 mg PO BID 07/26/18 04/29/23 History (120 mg-180 mg) capsule (Fish Oil) cetirizine 10 mg tablet (Zyrtec) 10 mg PO HS 08/22/19 04/29/23 History betamethasone valerate 0.1 % 1 applic topical UD PRN PSORIASIS 11/30/19 04/29/23 History topical cream blood-glucose meter (Accu-Chek 02/12/21 04/24/23 History Garima Plus Meter) nitroglycerin 0.4 mg/hr 1 patch transdermal QAM #90 ea 03/20/22 04/29/23 Rx transdermal 24 hour patch (Nitro-Dur) nifedipine 90 mg tablet,extended 90 mg PO HS #90 tabs 04/14/22 04/29/23 Rx release cholestyramine (with sugar) 4 gram 4 ea PO DIRECTED PRN Diarrhea 08/26/22 04/29/23 History oral powder levothyroxine 137 mcg capsule 137 mcg PO DAILY #90 caps 08/27/22 04/29/23 Rx albuterol sulfate 90 mcg/actuation 2 puff inhalation Q6H PRN 09/30/22 04/29/23 Rx aerosol inhaler shortness of breath or wheezing #8.5 grams budesonide-formoterol HFA 80 2 puff inhalation BID #3 Inhalers 09/30/22 04/29/23 Rx mcg-4.5 mcg/actuation aerosol inhaler (Symbicort) azelastine 137 mcg (0.1 %) nasal 2 spray intranasal DAILY PRN 11/17/22 04/29/23 Rx spray aerosol ALLERGIES #30 mL blood sugar diagnostic (Accu-Chek #100 ea 12/19/22 04/24/23 Rx Garima Plus test strips) potassium chloride 20 mEq 20 meq PO QAM #90 tabs 01/09/23 04/29/23 Rx tablet,extended release(part/cryst) (Klor-Con M) apixaban 5 mg tablet (Eliquis) 5 mg PO BID #180 tabs 01/15/23 04/29/23 Rx montelukast 10 mg tablet 10 mg PO DAILY #90 tabs 01/19/23 04/29/23 Rx (Singulair) acetaminophen 650 mg 1,300 mg PO BID 01/20/23 04/29/23 History tablet,extended release (Tylenol Arthritis Pain) lansoprazole 30 mg capsule,delayed 30 mg PO DAILY #90 caps 02/04/23 04/29/23 Rx release [facility] ([facility]ospital [facility] ea 03/03/23 04/24/23 Rx Bed) amiodarone 200 mg tablet 200 mg PO DAILY #30 tabs 03/06/23 04/29/23 Rx calcitriol 0.5 mcg capsule 0.25 mcg PO DAILY 03/23/23 04/29/23 History atorvastatin 40 mg tablet 40 mg PO HS #90 tabs 04/15/23 04/29/23 Rx dulaglutide 1.5 mg/0.5 mL 1.5 mg subcut WK 04/15/23 04/29/23 [facility] levalbuterol HCl 0.63 mg/3 mL 0.63 mg (3 mL) inhalation Q4H PRN 04/15/23 04/29/23 Rx solution for nebulization Cough #90 mL mirtazapine 7.5 mg tablet 7.5 mg PO DAILY #30 tabs 04/15/23 04/29/23 Rx lidocaine 5 % topical patch 1 patch transdermal QAM PRN pain 04/21/23 04/29/23 Rx 30 days #30 ea duloxetine 60 mg capsule,delayed 60 mg PO QAM #90 caps 04/24/23 04/29/23 Rx release (Cymbalta) prednisone 5 mg tablet 5 mg PO QAM #90 tabs 04/24/23 04/29/23 Rx bumetanide 1 mg tablet 1 mg PO DAILY #180 tabs 04/27/23 04/29/23 Rx carvedilol 25 mg tablet 25 mg PO BID #90 tabs 04/27/23 04/29/23 Rx ferrous sulfate 325 mg (65 mg 325 mg PO DAILY #30 tabs 04/27/23 04/29/23 Rx iron) tablet Patient History Medical History (Updated 04/30/23 @ 15:25 by Leia Chinchilla DO) Acute respiratory failure with hypoxia Breathlessness CKD (chronic kidney disease) stage 4, GFR 15-29 ml/min baseline creatinine 2.0-2.2 range; nephrology (Dr. Stevenson) monitoring Pulmonary edema Cardiomyopathy Non-ST elevation (NSTEMI) myocardial infarction Ventricular tachycardia Tachy-lina syndrome Elevated troponin Atrial fibrillation with RVR Sialoadenitis, unspecified Allergic rhinitis SI joint arthritis Abnormal PFT Mild persistent asthma Active asthma inhaler daily/prn, nebulizer prn Sinus congestion Chronic dyspnea On anticoagulant therapy eliquis bid Paroxysmal atrial fibrillation follows with Dr. 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 Ken)- under surveillance/stable/no indication for surgical intervention Psoriatic arthropathy GERD (gastroesophageal reflux disease) CONTROLLED WITH MEDS Osteoarthritis, knee Surgical History History of laparoscopy (~06/2020) exploratory [place] colect[place] [facility] [place] of colectomy (~06/2020) [place] [facility] History of total left hip arthroplasty 12/2019 History of total hip arthroplasty RIGHT 05/27/19. Complicated by post-op seroma requiring multiple needle aspirations.LEFT HIP 01/10/20 History of dilatation and curettage History of tooth extraction History of tonsillectomy and adenoidectomy History of cardiac cath X2; 10+ YEARS AGO (NO STENTS) History of arthroscopy RT/LEFT KNEE Status post total replacement of left shoulder hx of History of colonoscopy last 03/2020 History of esophagogastroduodenoscopy (EGD) History of total abdominal hysterectomy and bilateral salpingo-oophorectomy History of arthroscopy of right shoulder History of total knee arthroplasty RIGHT History of foot surgery RT FOOT FUSION History of cholecystectomy History of cataract extraction RT/LEFT History of lumbar fusion H/O thyroidectomy Family History Mother Arthritis Hypertension Father Lung cancer Hypertension Family/Other Family hx of colon cancer Unknown Allergies Breast cancer Hypertension Brother Cancer Heart disease Aunt Colorectal cancer Other No family history of adverse response to anesthesia No family history of bleeding disorder Denies family history of Ovarian cancer Prostate cancer Diabetes Hearing loss Myocardial infarction Stroke Asthma Social History Smoking Status: Former smoker Tobacco Type: Cigarettes Age Quit Using Tobacco: 26; Second Hand Exposure: No; Do You Dip or Chew Tobacco: No; Hx Alcohol Use: No Hx Substance Use: No Preferred Language: [place] Islander Communication Ability: Effective Communication Ability Comment: DEAF RIGHT EAR Visual Impairment: Limited Hearing Ability: Hard of Hearing Junior Underwriter Required: No Beliefs That Will Affect Care: None marital status: / Current Living Situation: Family Current Living Situation Comment: [place] current occupational status: retired current occupation: Retired How many Children do You have: 0 Feels Safe at Home: Yes Childhood Exposure to Second-Hand Smoke: Yes caffeine: Yes Dental Care, Regularly: Yes Physical Activity Frequency: Does not Exercise Physical Activity Frequency Comment: Hip problems Seatbelt Use: always Sunscreen Use: No Assistive Devices: None Physical Exam Constitutional: WD/WN, vitals as above no acute distress Eyes: + anicteric sclerae Neck: normal visual inspection Respiratory: normal respiratory effort; no respiratory distress Auscultation: + crackles Cardiovascular: Rate/Rhythm: regular rate and regular rhythm Heart Sounds: normal S1 and normal S2 Extremities: no edema Skin: normal turgor; no rashes Neurologic: no focal motor deficits and not confused Psychiatric: Orientation: alert and oriented x 3 Results & Data Vital Signs (Past 12 Hours) Vital Signs Temp Pulse Pulse Resp BP Pulse Ox O2 Del Method 05/01/23 11:42 36.8 C 81 16 98/65 L 95 Nasal Cannula 05/01/23 10:00 Nasal Cannula 05/01/23 08:48 36.9 C 86 16 100/64 90 Nasal Cannula 05/01/23 07:00 70 O2 Flow Rate 05/01/23 11:42 2 05/01/23 10:00 1 05/01/23 08:48 2 05/01/23 07:00 PG Care Time/CCT Total # of Minutes Spent Total Time Spent with Patient: Total time spent is greater than 50% in coordination of care (as documented) at patient's floor/unit and/or counseling patient: Coding Level of Care Code 94566 INT INP/OBS CARE 3/75MIN Diagnoses Acute kidney injury superimposed on CKD N17.9; N18.9 Pleural effusion J90 Hypoxia R09.02 Anemia D64.9
[2023-05-01 18:24] LABS: Urine Total Protein 33.6 mg/dl
[2023-05-01 18:29] LABS: Total Protein 24 Hour Urine 268.8 mg/24 Hr (0-149.1)
--- NOTE | 2023-05-01 19:26 | Hospitalist Progress Note ---
Date of Service May 01, 2023 Assessment & Plan (1) Acute respiratory failure with hypoxia: Plan: 1. Acute respiratory failure with hypoxia - Recurrent. The patient has undergone thoracentesis x 3. 2 of her effusions were exudative with the last of which being transudative. Patient has had negative cytology in the past. Her effusions have seem to recur in a relatively short period of time. On review of chest films today, her effusions have not significantly enlarged since her most recent on 04/24. Echocardiogram showed preserved ejection fraction no significant valve abnormality, discussed with pulmonary waiting for input if the patient is a candidate for pleurodesis or pigtail catheter she is nephrology, started on Bumex IV 2 mg twice daily, feels better today, continue current treatment, (2) Pleural effusion: Plan: 2 - Recurrent and bilateral nature She has undergone thoracentesis x 3. (3) CKD (chronic kidney disease) stage 4, GFR 15-29 ml/min: Plan Assessment & Plan (1) Pleural effusion: Plan: feeling better today, continue IV Bumex, discussed with nephrology, awaiting for pulmonary input [facility] admission 3 thoracenteses: 04/04 (right), 04/19 (left), and 04/20 (right) -all exudative, bloody Pleural fluid cytology was negative for malignancy x3 Chest CT on 04/17 noted no mediastinal lymphadenopathy; however, pulmonology note on 04/21 noted "anterior mediastinal lymphadenopathy" Patient has been unable to get contrast dye due to her kidney function Per pulmonology, pleural effusion is stable; unlikely to repeat thoracentesis Discussed with neurology repeat echocardiogram (2) CHF exacerbation: Plan: revealed LVEF at 55 to 60% BNP elevated at 179 (however this is lower than last admission, when it was at 217 on 03/27) (3) Hypoxia: Plan: Patient has a pulse ox at home and reports that she dropped to 80% range 04/27, 70% range on 04/28 SPO2 95% on RA at time of admission Continuous oxygen supplementation as needed to maintain SPO2 >94% (4) Type II diabetes mellitus: Plan: Last A1c was 6.6% on 04/16/[address] [facility] BSG checks ACHS She has done okay on SSI without basal in the past admissions Goal BSG range 110-140, CF 50, no carb ratio T2DM diet Adjust regimen as needed (5) Paroxysmal atrial fibrillation: Plan: S/p ICD placement EKG AV dual paced rhythm at 81 bpm Continue carvedilol, amiodarone Hold Eliquis in setting of potential exudative pleural effusions (6) CKD (chronic kidney disease): Plan: Elevated creatinine at 2.95 (baseline 2.3 range), EGFR at 14.8 Avoid nephrotoxic agents (7) Asthma: Plan: Continue albuterol as needed (8) GERD (gastroesophageal reflux disease): Plan: Continue lansoprazole Admission and Anticipated Discharge Date Admission Date: April 29, 2023 Review of Systems Review of Systems: A complete 10 point review of systems was reviewed with the patient with pertinent positives and negatives as per history of present illness. All else were negative. Physical Exam Physical Exam: VITAL SIGNS - Vital signs and nursing notes were reviewed. GENERAL - 77-year-old female appearing her stated age who is in no acute distress. Communicates well with provider and answers questions appropriately. NOSE - Midline and without cyanosis. No epistaxis or purulent drainage noted. MOUTH/OROPHARYNX - Without perioral cyanosis. LUNGS - Chest wall evaluation demonstrates normal chest wall A:P diameter. Auscultation reveals decreased breath sounds at the bilateral bases. Scant rales appreciated. CARDIAC - RRR with S1/S2. No murmur, rubs, or gallops appreciated. EXTREMITIES - Nail clubbing not present. No peripheral cyanosis. No pretibial edema present. +3/5 radial palpated throughout. PSYCH - A&Ox3 and cooperates fully with examiner. Pt is very pleasant and interacts well with examiner. Results & Data Results & Data Vital Signs (Past 12 Hours) Vital Signs Temp Pulse Pulse Resp BP Pulse Ox O2 Del Method 05/01/23 16:23 36.6 C 73 16 93/58 L 91 Nasal Cannula 05/01/23 14:00 70 05/01/23 11:42 36.8 C 81 16 98/65 L 95 Nasal Cannula 05/01/23 10:00 Nasal Cannula 05/01/23 08:48 36.9 C 86 16 100/64 90 Nasal Cannula O2 Flow Rate 05/01/23 16:23 2 05/01/23 14:00 05/01/23 11:42 2 05/01/23 10:00 1 05/01/23 08:48 2 PG Care Time/CCT Total # of Minutes Spent Total Time Spent with Patient: Total time spent is greater than 50% in coordination of care (as documented) at patient's floor/unit and/or counseling patient: Coding Level of Care Code 54754 SUB INP/OBS CARE 3/50MIN Diagnoses Acute respiratory failure with hypoxia J96.01 Pleural effusion J90 CKD (chronic kidney disease) stage 4, GFR 15-29 ml/min N18.4
[2023-05-01] MEDS: CETIRIZINE HCL 10 MG TABLET PO SCH (20:51)
[2023-05-01] MEDS: NIFEdipine EXTENDED REL 30 MG TABCR PO SCH (20:52)
[2023-05-01] MEDS: ATORVASTATIN 40 MG TAB PO SCH (20:52)
[2023-05-02] MEDS: LEVOTHYROXINE SODIUM 137 MCG TABLET PO SCH (06:01)
[2023-05-02 06:28] LABS: Basophils # (auto) 0.03 K/uL (0.00-0.20); Basophils % (auto) 0.6 %; Eosinophils # (auto) 0.14 K/uL (0.00-0.50); Hematocrit (blood only) 27.7 % (37.0-47.0); Hemoglobin 8.7 g/dl (12.0-16.0); Immature Granulocytes # (auto) 0.01 K/uL (0.01-0.20); Immature Granulocytes % (auto) 0.2 %; Lymphocytes # (auto) 1.27 K/uL (1.20-3.40); Lymphocytes % (auto) 26.8 %; Mean Corpuscular Hemoglobin 26.6 pg (25.0-34.0); Mean Corpuscular Hgb Conc 31.4 g/dL (32.0-36.0); Mean Corpuscular Volume 84.7 fL (80.0-100.0); Mean Platelet Volume 9.3 fL (9.4-12.4); Monocytes # (auto) 0.41 K/uL (0.11-0.59); Monocytes % (auto) 8.7 %; Neutrophils # (auto) 2.87 K/uL (1.40-6.50); Neutrophils % (auto) 60.7 %; Platelet Count 371 K/uL (130-400); RDW Coefficient of Variation 22.2 % (11.5-14.5); RDW Standard Deviation 67.9 fL (36.4-46.3); Red Blood Count 3.27 M/uL (4.20-5.40); White Blood Count 4.73 K/ul (4.8-10.8)
[2023-05-02 06:53] LABS: BUN Creatinine Ratio 10.1 (10-20); Calcium 8.6 mg/dl (8.6-10.3); Creatinine Clr Calc Pharmacy 24.7 ml/min; Est GFR (African American) 21.2 ml/min; Est GFR (Non-African American) 18.3 ml/min; Potassium 3.4 mmol/L (3.5-5.1)
[2023-05-02 06:54] LABS: Anisocytosis Present; Polychromasia 1+
[2023-05-02] MEDS: INSULIN ASPART PER UNIT CHARGE SC SCH ×4 (08:35→21:57)
[2023-05-02] MEDS: ACETAMINOPHEN 325 MG TAB PO SCH ×4 (09:00→22:16)
[2023-05-02] MEDS: BUMETANIDE 2 MG in SYRINGE 0 ML IV SCH (09:00)
[2023-05-02] MEDS: PANTOprazole 40 MG TAB PO SCH (09:00)
[2023-05-02] MEDS: FLUTICASONE/VILANTEROL 100/25MCG 14 PUFFS/INHALER INH SCH (09:00)
[2023-05-02] MEDS: AMIODARONE 200 MG TAB PO SCH (09:01)
[2023-05-02] MEDS: carvediloL 25 MG TAB PO SCH ×2 (09:01→17:27)
[2023-05-02] MEDS: MAGNESIUM OXIDE 400 MG TAB PO SCH ×2 (09:01→22:16)
[2023-05-02] MEDS: MONTELUKAST SODIUM 10 MG TABLET PO SCH (09:01)
[2023-05-02] MEDS: DULoxetine HCL 60 MG CAP PO SCH (09:01)
[2023-05-02] MEDS: MIRTAZAPINE TAB 15 MG TAB PO SCH (09:01)
[2023-05-02] MEDS: FERROUS SULFATE 325 MG TAB PO SCH (09:01)
[2023-05-02] MEDS: predniSONE 5 MG TAB PO SCH (09:01)
--- NOTE | 2023-05-02 11:55 | Hematology/Oncology Prog Note ---
Date of Service May 02, 2023 Assessment & Plan (1) Anemia: Plan: Anemia as a result of the underlying chronic kidney disease, with poor kidney function. She is a poor cardiorenal function which is contributing to the significant anemia. At this point my concerns for a significant paraprotein disorders are negligible. She does not have amyloidosis. She did have a faint IgM lambda in the blood. We did a 24-hour urine protein evaluation which did not reveal significant nephrotic range proteinuria. At this point I would not recommend further testing from a paraprotein disorder standpoint such as renal biopsy or bone marrow biopsy. I am still waiting for the results of the serum protein electrophoresis. Neurology will continue to follow the patient and make appropriate recommendations. Plan Patient informed about this plan, agrees. Hematology will continue to follow appropriate recommendations Admission and Anticipated Discharge Date Admission Date: April 29, 2023 Subjective Has recurrent pleural effusions. Continues to be short of breath. She is undergoing placement of Pleurx catheter. Reports no fever or chills. Results & Data Vital Signs (Past 12 Hours) Vital Signs Temp Pulse Pulse Resp BP BP Pulse Ox 05/02/23 11:41 36.9 C 70 18 111/69 95 05/02/23 08:27 36.9 C 71 18 149/84 H 93 05/02/23 08:25 05/02/23 05:59 70 05/02/23 03:41 36.8 C 73 18 126/77 97 O2 Del Method O2 Flow Rate 05/02/23 11:41 Nasal Cannula 2 05/02/23 08:27 Nasal Cannula 2 05/02/23 08:25 Nasal Cannula 1 05/02/23 05:59 05/02/23 03:41 Nasal Cannula 2.0
--- NOTE | 2023-05-02 12:47 | Procedure Note ---
Procedure Note Date of Service May 02, 2023 Note Procedure: Diagnostic and therapeutic ultrasound-guided catheter thoracentesis Furniture Repairer: Dr. Rizwan Mcadams Indication: Pleural effusion Consent: Signed by patient and verified with timeout prior to procedure Anesthesia: 8 mL's of 1% lidocaine without epinephrine given locally Procedure: Consent was verified and timeout performed. Appropriate imaging studies were reviewed prior to the procedure. Patient was placed in a seated position and limited thoracic ultrasound was performed of the right chest. See separate imaging. The site appropriate for thoracentesis was selected. The skin was prepped and draped in normal sterile fashion. Lidocaine was used for local analgesia. Fluid was aspirated via the finder needle. A small skin apurva was made with the scalpel and the catheter over the needle apparatus was advanced over the rib into the pleural space. Using the syringe one-way valve system, a total of 1100 mL's of marina-colored fluid was removed. Procedure was terminated due to lack of flow. The catheter was removed and observed to be intact. A sterile dressing was applied. Post procedure chest x-ray was ordered. Fluid was sent for LDH, total protein, cell count and cytology. The patient tolerated the procedure well without obvious complication. Postprocedure chest x-ray is pending Coding CPT Codes Pulmonary/Thoracic - Pulmonary and Thoracic: 04010 Thoracentesis w imaging ([id number]) [facility] [place] Procedure Codes (Charges) Pulmonary/Thoracic Procedure 1: Pulmonary and Thoracic: 15967 Thoracentesis w imaging
--- NOTE | 2023-05-02 12:48 | Procedure Note ---
Procedure Note Date of Service May 02, 2023 Note Procedure: Left diagnostic and therapeutic ultrasound-guided catheter thoracentesis Door Glass Installer: Dr. Rizwan Mcadams Indication: Pleural effusion Consent: Signed by patient and verified with timeout prior to procedure Anesthesia: 8 mL's of 1% lidocaine without epinephrine given locally Procedure: Consent was verified and timeout performed. Appropriate imaging studies were reviewed prior to the procedure. Patient was placed in a seated position and limited thoracic ultrasound was performed of the left chest. See separate imaging. The site appropriate for thoracentesis was selected. The skin was prepped and draped in normal sterile fashion. Lidocaine was used for local analgesia. Fluid was aspirated via the finder needle. A small skin apurva was made with the scalpel and the catheter over the needle apparatus was advanced over the rib into the pleural space. Using the syringe one-way valve system, a total of 1400 mL's of serosanguineous fluid was removed. Procedure was terminated due to lack of flow. The catheter was removed and observed to be intact. A sterile dressing was applied. Post procedure chest x-ray was ordered. Fluid was sent for LDH, total protein and cytology. The patient tolerated the procedure well without obvious complication. Postprocedure chest x-ray is pending. Coding CPT Codes Pulmonary/Thoracic - Pulmonary and Thoracic: 26849 Thoracentesis w imaging ([id number]) [facility] [place] Procedure Codes (Charges) Pulmonary/Thoracic Procedure 1: Pulmonary and Thoracic: 69532 Thoracentesis w imaging
--- NOTE | 2023-05-02 12:59 | Pulmonology Progress Note ---
Date of Service May 02, 2023 Assessment & Plan (1) Recurrent pleural effusion: (2) Hypoxia: (3) CKD (chronic kidney disease): Plan 77-year-old female with a history of recurrent pleural effusion secondary to volume overload given history of CKD stage IV and diastolic heart failure. Recommend optimizing volume status with diuretics. I did perform a bilateral thoracentesis today with 1.4 L of fluid removed from the left and 1.1 L of fluid removed from the right. She does have a recurrent exudate on the left which may have been from prior traumatic thoracentesis. I sent pleural fluid cytologies from the left and right. Prior specimens have been negative for malignancy. Patient may need a pleural biopsy as an outpatient by thoracic surgery in the near future. We also discussed the possibility of Pleurx catheter, but the patient would like to hold off on a Pleurx catheter at this time and would like to proceed with thoracentesis which was performed with the patient's consent. Admission and Anticipated Discharge Date Admission Date: April 29, 2023 Subjective Patient seen and examined. She has been having chest tightness for the past few weeks. She is on diuretic therapy and her weight has been stable. She denies any fevers, chills or night sweats. She is currently on low-flow oxygen. Review of Systems Review of Systems: All systems reviewed & are unremarkable except as noted in HPI & below Physical Exam Physical Exam: Constitutional: Patient appears to be of their stated age. Patient is in no apparent distress. Patient is well-developed. Eyes: Pupils are equal round and reactive to light. Conjunctivae are normal. Anicteric sclera. Ears nose, mouth and throat: Mallampati class 2. Normal posterior oropharynx. Uvula is midline. Neck: Trachea is midline. Visual inspection is normal. Respiratory: Diminishment in the bilateral lower lobes with mild crackles. Cardiovascular: Regular rate and rhythm. No murmurs. No edema. Gastrointestinal: Normal bowel sounds, soft, nontender and nondistended. No hepatosplenomegaly noted. Musculoskeletal: No cyanosis. Patient is able to move all extremities. Strength is 5 out of 5 in the upper and lower extremities. Skin: No rashes, warm dry and intact. Neurologic: No obvious focal neurological deficits seen. Psychiatric: Alert and oriented x3 with a euthymic affect. Results & Data Results & Data Vital Signs (Past 12 Hours) Vital Signs Temp Pulse Pulse Resp BP BP Pulse Ox 05/02/23 11:41 36.9 C 70 18 111/69 95 05/02/23 08:27 36.9 C 71 18 149/84 H 93 05/02/23 08:25 05/02/23 05:59 70 05/02/23 03:41 36.8 C 73 18 126/77 97 O2 Del Method O2 Flow Rate 05/02/23 11:41 Nasal Cannula 2 05/02/23 08:27 Nasal Cannula 2 05/02/23 08:25 Nasal Cannula 1 05/02/23 05:59 05/02/23 03:41 Nasal Cannula 2.0 PG Care Time/CCT Total # of Minutes Spent Total Time Spent with Patient: Total time spent is greater than 50% in coordination of care (as documented) at patient's floor/unit and/or counseling patient: Coding Level of Care Code 69142 SUB INP/OBS CARE 3/50MIN Diagnoses Recurrent pleural effusion J90 Hypoxia R09.02 CKD (chronic kidney disease) N18.9
--- NOTE | 2023-05-02 13:17 | Nephrology Progress Note ---
Date of Service May 02, 2023 Assessment & Plan (1) Acute kidney injury superimposed on CKD: Plan: CKD IIIb/IV. Baseline creatinine 2.0-2.4 mg/dL. CKD attribtued to microvascular disease and hypertension. JULIO attributed to CRS. Creatinine improving. Electrolytes acceptable. Volume status notably improved. Medications appropriate for kidney function. (2) Pleural effusion: Plan: s/p thoracentsis. Tolerated procedure well. Symptomatic improvement noted. (3) Anemia: Plan: Update iron profile with next blood work. Epogen 33855 units now. (4) CHF (congestive heart failure): Plan: Low sodium diet. Document strict I/O's. Bumex switched from IV to PO. Continue 2 mg BID for now. Admission and Anticipated Discharge Date Admission Date: April 29, 2023 Subjective No acute events overnight. No fevers or chills. Dyspnea significantly improved. s/p BL thoracentesis. Tolerated procedure well. Hopeful to return home tomorrow. Review of Systems Review of Systems: All systems reviewed & are unremarkable except as noted in HPI & below Physical Exam Constitutional: well developed; no acute distress Eyes: no scleral abnormality and no corneal abnormality ENMT: Mouth: no oral mucosal abnormality and oral mucous membranes not dry Neck: normal visual inspection and trachea midline Respiratory: normal respiratory effort Auscultation: lungs clear to auscultation bilaterally Cardiovascular: Rate/Rhythm: regular rate Heart Sounds: normal S1 and normal S2 Extremities: no edema Musculoskeletal: Extremities: no cyanosis and no clubbing Skin: normal turgor; no lesions Neurologic: Motor/Sensory: no tremor and no asterixis Psychiatric: Orientation: alert and oriented x 3 Results & Data Vital Signs (Past 12 Hours) Vital Signs Temp Pulse Pulse Resp BP BP Pulse Ox 05/02/23 11:41 36.9 C 70 18 111/69 95 05/02/23 08:27 36.9 C 71 18 149/84 H 93 05/02/23 08:25 05/02/23 05:59 70 05/02/23 03:41 36.8 C 73 18 126/77 97 O2 Del Method O2 Flow Rate 05/02/23 11:41 Nasal Cannula 2 05/02/23 08:27 Nasal Cannula 2 05/02/23 08:25 Nasal Cannula 1 05/02/23 05:59 05/02/23 03:41 Nasal Cannula 2.0 Laboratory Results Laboratory Results - last 24 hr 04/30/23 05/01/23 05/01/23 17:09 17:15 20:40 WBC RBC Hgb Hct MCV MCH MCHC RDW Std Deviation RDW Coeff of Amrita Plt Count MPV Immature Gran % (Auto) Neut % (Auto) Lymph % (Auto) Barron % (Auto) Eos % (Auto) Baso % (Auto) Neut # (Auto) Lymph # (Auto) Barron # (Auto) Eos # (Auto) Baso # (Auto) Immature Gran # (Auto) Polychromasia Anisocytosis Sodium Potassium Chloride Carbon Dioxide Anion Gap BUN Creatinine Est Cr Clr Drug Dosing Est GFR ( Amer) Est GFR (Non-Af Amer) BUN/Creatinine Ratio Glucose POC Glucose 105 H 113 H Calcium Urine Total Volume 800 Ur Total Protein 24 Hr 268.8 H Urine Total Protein 33.6 Pleural Total Protein Pleural LDH Pleural Cholesterol 05/02/23 05/02/23 05/02/23 06:10 08:11 12:37 WBC 4.73 L RBC 3.27 L Hgb 8.7 L Hct 27.7 L MCV 84.7 MCH 26.6 MCHC 31.4 L RDW Std Deviation 67.9 H RDW Coeff of Amrita 22.2 H Plt Count 371 MPV 9.3 L Immature Gran % (Auto) 0.2 Neut % (Auto) 60.7 Lymph % (Auto) 26.8 Barron % (Auto) 8.7 Eos % (Auto) 3.0 Baso % (Auto) 0.6 Neut # (Auto) 2.87 Lymph # (Auto) 1.27 Barron # (Auto) 0.41 Eos # (Auto) 0.14 Baso # (Auto) 0.03 Immature Gran # (Auto) 0.01 Polychromasia 1+ Anisocytosis Present Sodium 138 Potassium 3.4 L Chloride 103 Carbon Dioxide 28 Anion Gap 7 BUN 25 H Creatinine 2.47 H Est Cr Clr Drug Dosing 24.7 Est GFR ( Amer) 21.2 Est GFR (Non-Af Amer) 18.3 BUN/Creatinine Ratio 10.1 Glucose 86 POC Glucose 94 Calcium 8.6 Urine Total Volume Ur Total Protein 24 Hr Urine Total Protein Pleural Total Protein Pending Pleural LDH Pending Pleural Cholesterol Pending 05/02/23 12:49 WBC RBC Hgb Hct MCV MCH MCHC RDW Std Deviation RDW Coeff of Amrita Plt Count MPV Immature Gran % (Auto) Neut % (Auto) Lymph % (Auto) Barron % (Auto) Eos % (Auto) Baso % (Auto) Neut # (Auto) Lymph # (Auto) Barron # (Auto) Eos # (Auto) Baso # (Auto) Immature Gran # (Auto) Polychromasia Anisocytosis Sodium Potassium Chloride Carbon Dioxide Anion Gap BUN Creatinine Est Cr Clr Drug Dosing Est GFR ( Amer) Est GFR (Non-Af Amer) BUN/Creatinine Ratio Glucose POC Glucose 112 H Calcium Urine Total Volume Ur Total Protein 24 Hr Urine Total Protein Pleural Total Protein Pleural LDH Pleural Cholesterol PG Care Time/CCT Total # of Minutes Spent Total Time Spent with Patient: Total time spent is greater than 50% in coordination of care (as documented) at patient's floor/unit and/or counseling patient: Coding Level of Care Code 17151 SUB INP/OBS CARE 3/50MIN Diagnoses Acute kidney injury superimposed on CKD N17.9; N18.9 Pleural effusion J90 Anemia D64.9 CHF (congestive heart failure) I50.9 Heart failure chronicity: acute on chronic (4) CHF (congestive heart failure) Heart failure chronicity: acute on chronic
[2023-05-02] MEDS ORDERED: BUMETANIDE 1 MG TAB PO ONE (13:20)
--- NOTE | 2023-05-02 13:35 | XRay Report ---
XR chest 1V portable HISTORY: S/P B/L Thoracentesis COMPARISON: Chest 04/29/2023. FINDINGS: Decrease in size in the small bilateral pleural effusions status post thoracentesis. No pne umothorax. The heart remains enlarged. There is a left-sided pacemaker/defibrillator again noted. The re is mild central pulmonary vascular congestion without overt edema. Bibasilar linear densities have improved and favor resolving atelectasis. There is a left shoulder prosthesis. IMPRESSION: Decrease in size in the small bilateral pleural effusion status post thoracentesis. No pneumothorax. ACT 112: Negative or not required by law. Electronically signed by: Juno Pang M.D. 05/02/2023 1:34 PM
[2023-05-02 13:50] LABS: Total Protein Pleural Fluid 4.6 gm/dl
[2023-05-02] MEDS ORDERED: HYDROmorphone INJ 0.5 MG/0.5 ML SYR IV STA (13:54)
[2023-05-02 14:04] LABS: Total Protein Pleural Fluid 4.6 gm/dl
--- NOTE | 2023-05-02 16:37 | Hospitalist Progress Note ---
Date of Service May 02, 2023 Assessment & Plan (1) Acute respiratory failure with hypoxia: Plan: 1. Acute respiratory failure with hypoxia - Recurrent. The patient has undergone thoracentesis x 3. 2 of her effusions were exudative with the last of which being transudative. Patient has had negative cytology in the past. Her effusions have seem to recur in a relatively short period of time. Echocardiogram showed preserved ejection fraction no significant valve abnormality -Status post bilateral thoracentesis today, patient feels significantly better, currently on room air, we decided to increase the dose of Bumex from 2 mg once daily to 2 mg twice daily hopefully that helps prevent come back to the hospital, other options including pleurodesis or pigtail catheter might be considered if the above approach is futile (2) Pleural effusion: Plan: Possibly secondary to volume overload, advanced chronic kidney disease (3) CKD (chronic kidney disease) stage 4, GFR 15-29 ml/min: Plan Assessment & Plan (1) Pleural effusion: Plan: feeling better today, continue IV Bumex, discussed with nephrology, awaiting for pulmonary input [facility] admission 3 thoracenteses: 04/04 (right), 04/19 (left), and 04/20 (right) -all exudative, bloody Pleural fluid cytology was negative for malignancy x3 Chest CT on 04/17 noted no mediastinal lymphadenopathy; however, pulmonology note on 04/21 noted "anterior mediastinal lymphadenopathy" Patient has been unable to get contrast dye due to her kidney function Per pulmonology, pleural effusion is stable; unlikely to repeat thoracentesis Discussed with neurology repeat echocardiogram (2) CHF exacerbation: Plan: Echocardiogram during this admission showed revealed LVEF at 55 to 60% BNP elevated at 179 (however this is lower than last admission, when it was at 217 on 03/27) (3) Hypoxia: Plan: Likely secondary to pleural effusion doing better, currently on room air (4) Type II diabetes mellitus: Plan: Last A1c was 6.6% on 04/16/2023 Hold [facility] BSG checks ACHS She has done okay on SSI without basal in the past admissions Goal BSG range 110-140, CF 50, no carb ratio T2DM diet Adjust regimen as needed (5) Paroxysmal atrial fibrillation: Plan: S/p ICD placement EKG AV dual paced rhythm at 81 bpm Continue carvedilol, amiodarone Resume Eliquis (6) JULIO on CKD (chronic kidney disease) Plan: Elevated creatinine at 2.95 (baseline 2.3 range), EGFR at 14.8 Avoid nephrotoxic agents -Improving today creatinine 2.49 (7) Asthma: Plan: Continue albuterol as needed (8) GERD (gastroesophageal reflux disease): Plan: Continue lansoprazole Admission and Anticipated Discharge Date Admission Date: April 29, 2023 Subjective No acute events overnight. No fevers or chills. Dyspnea significantly improved. s/p BL thoracentesis. Tolerated procedure well. Hopeful to return home tomorrow. Physical Exam Physical Exam: VITAL SIGNS - Vital signs and nursing notes were reviewed. GENERAL - 77-year-old female appearing her stated age who is in no acute distress. Communicates well with provider and answers questions appropriately. NOSE - Midline and without cyanosis. No epistaxis or purulent drainage noted. MOUTH/OROPHARYNX - Without perioral cyanosis. LUNGS - Chest wall evaluation demonstrates normal chest wall A:P diameter. Auscultation reveals decreased breath sounds at the bilateral bases. Scant rales appreciated. CARDIAC - RRR with S1/S2. No murmur, rubs, or gallops appreciated. EXTREMITIES - Nail clubbing not present. No peripheral cyanosis. No pretibial edema present. +3/5 radial palpated throughout. PSYCH - A&Ox3 and cooperates fully with examiner. Pt is very pleasant and interacts well with examiner. Results & Data Results & Data Vital Signs (Past 12 Hours) Vital Signs Temp Pulse Pulse Resp BP BP Pulse Ox 05/02/23 15:45 36.6 C 70 18 113/62 113/62 94 05/02/23 14:02 74 05/02/23 11:41 36.9 C 70 18 111/69 95 05/02/23 08:27 36.9 C 71 18 149/84 H 93 05/02/23 08:25 05/02/23 05:59 70 O2 Del Method O2 Flow Rate 05/02/23 15:45 Room Air 05/02/23 14:02 05/02/23 11:41 Nasal Cannula 2 05/02/23 08:27 Nasal Cannula 2 05/02/23 08:25 Nasal Cannula 1 05/02/23 05:59 PG Care Time/CCT Total # of Minutes Spent Total Time Spent with Patient: Total time spent is greater than 50% in coordination of care (as documented) at patient's floor/unit and/or counseling patient: Coding Level of Care Code 87886 SUB INP/OBS CARE 3/50MIN Diagnoses Acute respiratory failure with hypoxia J96.01 Pleural effusion J90 CKD (chronic kidney disease) stage 4, GFR 15-29 ml/min N18.4
[2023-05-02] MEDS: BUMETANIDE 1 MG TAB PO SCH (17:27)
[2023-05-02] MEDS: CETIRIZINE HCL 10 MG TABLET PO SCH (22:16)
[2023-05-02] MEDS: APIXABAN 5 MG TABLET PO SCH (22:16)
[2023-05-02] MEDS: ATORVASTATIN 40 MG TAB PO SCH (22:17)
[2023-05-02] MEDS: NIFEdipine EXTENDED REL 30 MG TABCR PO SCH (22:18)
[2023-05-03] MEDS: LEVOTHYROXINE SODIUM 137 MCG TABLET PO SCH (05:39)
[2023-05-03 07:07] LABS: Hematocrit (blood only) 28.9 % (37.0-47.0); Hemoglobin 9.2 g/dl (12.0-16.0); Mean Corpuscular Hemoglobin 26.6 pg (25.0-34.0); Mean Corpuscular Hgb Conc 31.8 g/dL (32.0-36.0); Mean Corpuscular Volume 83.5 fL (80.0-100.0); Mean Platelet Volume 9.3 fL (9.4-12.4); Platelet Count 357 K/uL (130-400); RDW Coefficient of Variation 22.1 % (11.5-14.5); RDW Standard Deviation 64.9 fL (36.4-46.3); Red Blood Count 3.46 M/uL (4.20-5.40); White Blood Count 4.29 K/ul (4.8-10.8)
[2023-05-03 07:55] LABS: Albumin Level 2.9 gm/dl (3.4-5.0); BUN Creatinine Ratio 10.7 (10-20); Calcium 8.6 mg/dl (8.6-10.3); Creatinine Clr Calc Pharmacy 25.4 ml/min; Est GFR (African American) 21.7 ml/min; Est GFR (Non-African American) 18.7 ml/min; Phosphorus 4.5 mg/dl (2.5-4.9)
[2023-05-03] MEDS: INSULIN ASPART PER UNIT CHARGE SC SCH ×2 (08:24→12:13)
[2023-05-03] MEDS: MIRTAZAPINE TAB 15 MG TAB PO SCH (08:25)
[2023-05-03] MEDS: FERROUS SULFATE 325 MG TAB PO SCH (08:25)
[2023-05-03] MEDS: carvediloL 25 MG TAB PO SCH (08:26)
[2023-05-03] MEDS: MONTELUKAST SODIUM 10 MG TABLET PO SCH (08:26)
[2023-05-03] MEDS: MAGNESIUM OXIDE 400 MG TAB PO SCH (08:26)
[2023-05-03] MEDS: DULoxetine HCL 60 MG CAP PO SCH (08:26)
[2023-05-03] MEDS: AMIODARONE 200 MG TAB PO SCH (08:27)
[2023-05-03] MEDS: FLUTICASONE/VILANTEROL 100/25MCG 14 PUFFS/INHALER INH SCH (08:27)
[2023-05-03] MEDS: predniSONE 5 MG TAB PO SCH (08:27)
[2023-05-03] MEDS: BUMETANIDE 1 MG TAB PO SCH (08:27)
[2023-05-03] MEDS: APIXABAN 5 MG TABLET PO SCH (08:27)
[2023-05-03] MEDS: PANTOprazole 40 MG TAB PO SCH (08:27)
[2023-05-03] MEDS: ACETAMINOPHEN 325 MG TAB PO SCH ×2 (08:29→12:02)
[2023-05-03] MEDS ORDERED: POTASSIUM CHLORIDE CRTAB 20 MEQ TABCR PO STA ×2 (12:03→12:05)
--- NOTE | 2023-05-03 12:05 | Nephrology Progress Note ---
Date of Service May 03, 2023 Assessment & Plan (1) Acute kidney injury superimposed on CKD: Plan: CKD IIIb/IV. Baseline creatinine 2.0-2.4 mg/dL. CKD attributed to microvascular disease and hypertension. JULIO attributed to CRS. Creatinine stable. Hypokalemia but electrolytes otherwise acceptable. Oral KCl 40 mEq now. Check renal panel and magnesium early next week. Volume status notably improved. Medications appropriate for kidney function. Follow up with Dr. Stevenson in the nephrology clinic will be arranged. (2) Pleural effusion: Plan: s/p thoracentesis 05/02/23. 1400 ml removed from Left and 1100 ml from Right. Serosanguineous. Fluid analysis pending. Tolerated procedure well. Symptomatic improvement noted. (3) Anemia: Plan: Tsat 18 and ferritin 272. Venofer 300 mg IV x 1 provided today. Epogen 29169 units provided yesterday. (4) CHF (congestive heart failure): Plan: Low sodium diet. Document strict I/O's. Bumex switched from IV to PO. Continue 2 mg BID. Close outpatient follow up in the nephrology clinic and CHF clinic strongly encouraged. I have requested follow up with Dr. Stevenson. Please arrange outpatient follow up with Chaya Guzmán PA-C in the CHF clinic as well. Admission and Anticipated Discharge Date Admission Date: April 29, 2023 Subjective No acute events overnight. No complaints this AM. Dyspnea significant improved. Mike would like to return home today. Review of Systems Review of Systems: All systems reviewed & are unremarkable except as noted in HPI & below Physical Exam Constitutional: well developed; no acute distress Eyes: no scleral abnormality and no corneal abnormality ENMT: Mouth: no oral mucosal abnormality and oral mucous membranes not dry Neck: normal visual inspection and trachea midline Respiratory: normal respiratory effort Auscultation: lungs clear to auscultation bilaterally Cardiovascular: Rate/Rhythm: regular rate Heart Sounds: normal S1 and normal S2 Extremities: no edema Musculoskeletal: Extremities: no cyanosis and no clubbing Skin: normal turgor; no lesions Neurologic: Motor/Sensory: no tremor and no asterixis Psychiatric: Orientation: alert and oriented x 3 Results & Data Vital Signs (Past 12 Hours) Vital Signs Temp Pulse Pulse Resp BP Pulse Ox O2 Del Method 05/03/23 11:24 36.7 C 69 20 113/73 97 Room Air 05/03/23 11:23 Room Air 05/03/23 08:20 70 05/03/23 07:28 36.5 C 72 18 131/83 97 Room Air 05/03/23 03:36 37.1 C 64 18 109/67 98 Room Air 05/03/23 01:13 70 05/03/23 01:10 Room Air Laboratory Results Laboratory Results - last 24 hr 05/02/23 05/02/23 05/02/23 12:37 12:37 12:37 WBC RBC Hgb Hct MCV MCH MCHC RDW Std Deviation RDW Coeff of Amrita Plt Count MPV Sodium Potassium Chloride Carbon Dioxide Anion Gap BUN Creatinine Est Cr Clr Drug Dosing Est GFR ( Amer) Est GFR (Non-Af Amer) BUN/Creatinine Ratio Glucose POC Glucose Calcium Phosphorus Iron TIBC Unsaturated IBC Transferrin % Sat Ferritin Albumin Pleural Total Protein 4.6 4.6 Pleural LDH 84 87 Pleural Cholesterol Pending 05/02/23 05/02/23 05/02/23 12:37 12:49 17:19 WBC RBC Hgb Hct MCV MCH MCHC RDW Std Deviation RDW Coeff of Amrita Plt Count MPV Sodium Potassium Chloride Carbon Dioxide Anion Gap BUN Creatinine Est Cr Clr Drug Dosing Est GFR ( Amer) Est GFR (Non-Af Amer) BUN/Creatinine Ratio Glucose POC Glucose 112 H 127 H Calcium Phosphorus Iron TIBC Unsaturated IBC Transferrin % Sat Ferritin Albumin Pleural Total Protein Pleural LDH Pleural Cholesterol Pending 05/02/23 05/03/23 05/03/23 20:45 06:43 08:14 WBC 4.29 L RBC 3.46 L Hgb 9.2 L Hct 28.9 L MCV 83.5 MCH 26.6 MCHC 31.8 L RDW Std Deviation 64.9 H RDW Coeff of Amrita 22.1 H Plt Count 357 MPV 9.3 L Sodium 138 Potassium 3.0 L Chloride 100 Carbon Dioxide 30 Anion Gap 8 BUN 26 H Creatinine 2.43 H Est Cr Clr Drug Dosing 25.4 Est GFR ( Amer) 21.7 Est GFR (Non-Af Amer) 18.7 BUN/Creatinine Ratio 10.7 Glucose 77 POC Glucose 131 H 91 Calcium 8.6 Phosphorus 4.5 Iron 30 L TIBC 168 L Unsaturated IBC 138 L Transferrin % Sat 18 Ferritin 272.0 Albumin 2.9 L Pleural Total Protein Pleural LDH Pleural Cholesterol PG Care Time/CCT Total # of Minutes Spent Total Time Spent with Patient: Total time spent is greater than 50% in coordination of care (as documented) at patient's floor/unit and/or counseling patient: Coding Level of Care Code 84066 SUB INP/OBS CARE 3/50MIN Diagnoses Acute kidney injury superimposed on CKD N17.9; N18.9 Pleural effusion J90 Anemia D64.9 CHF (congestive heart failure) I50.9 Heart failure chronicity: acute on chronic (4) CHF (congestive heart failure) Heart failure chronicity: acute on chronic
[2023-05-03] MEDS ORDERED: IRON SUCROSE 300 MG in SODIUM CHLORIDE 0.9% 250 ML IV ONE (12:09)
--- NOTE | 2023-05-03 12:23 | Pulmonology Progress Note ---
Date of Service May 03, 2023 Assessment & Plan (1) Recurrent pleural effusion: (2) Hypoxia: (3) CKD (chronic kidney disease): Plan 77-year-old female with a history of recurrent pleural effusion secondary to volume overload given history of CKD stage IV and diastolic heart failure. Recommend optimizing volume status with diuretics. I did perform a bilateral thoracentesis 05/03/2023 with 1.4 L of fluid removed from the left and 1.1 L of fluid removed from the right. She does have a recurrent exudate on the left which may have been from prior traumatic thoracentesis. I sent pleural fluid cytologies from the left and right. Prior specimens have been negative for malignancy. Patient may need a pleural biopsy as an outpatient by thoracic surgery in the near future if exudate recurs. We also discussed the potential role of Pleurx catheter which the patient would like to hold off on at this time. She is stable for discharge home at this time. Okay to restart any form of anticoagulation required from a cardiac perspective. Admission and Anticipated Discharge Date Admission Date: April 29, 2023 Subjective Patient seen and examined. She is saturating well on room air. Her shortness of breath and chest tightness have improved significantly since bilateral thoracentesis yesterday. She denies any fevers, chills or night sweats. Review of Systems Review of Systems: All systems reviewed & are unremarkable except as noted in HPI & below Physical Exam Physical Exam: Constitutional: Patient appears to be of their stated age. Patient is in no apparent distress. Patient is well-developed. Eyes: Pupils are equal round and reactive to light. Conjunctivae are normal. Anicteric sclera. Ears nose, mouth and throat: Mallampati class 2. Normal posterior oropharynx. Uvula is midline. Neck: Trachea is midline. Visual inspection is normal. Respiratory: Diminishment in the bilateral lower lobes with mild crackles. Cardiovascular: Regular rate and rhythm. No murmurs. No edema. Gastrointestinal: Normal bowel sounds, soft, nontender and nondistended. No hepatosplenomegaly noted. Musculoskeletal: No cyanosis. Patient is able to move all extremities. Strength is 5 out of 5 in the upper and lower extremities. Skin: No rashes, warm dry and intact. Neurologic: No obvious focal neurological deficits seen. Psychiatric: Alert and oriented x3 with a euthymic affect. Results & Data Results & Data Vital Signs (Past 12 Hours) Vital Signs Temp Pulse Pulse Resp BP Pulse Ox O2 Del Method 05/03/23 11:24 36.7 C 69 20 113/73 97 Room Air 05/03/23 11:23 Room Air 05/03/23 08:20 70 05/03/23 07:28 36.5 C 72 18 131/83 97 Room Air 05/03/23 03:36 37.1 C 64 18 109/67 98 Room Air 05/03/23 01:13 70 05/03/23 01:10 Room Air PG Care Time/CCT Total # of Minutes Spent Total Time Spent with Patient: Total time spent is greater than 50% in coordination of care (as documented) at patient's floor/unit and/or counseling patient: Coding Level of Care Code 13585 SUB INP/OBS CARE 235MIN Diagnoses Recurrent pleural effusion J90 Hypoxia R09.02 CKD (chronic kidney disease) N18.9
--- NOTE | 2023-05-03 18:28 | Discharge Summary ---
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 She presented for worsening SOB, chest heaviness, and hypoxia x 2 days. Patient reports that she got an outpatient x-ray on Thursday which showed pleural effusions. She reports that her home pulse ox was in the 80s on 04/27, dropped to the 70s on 04/28. She has been taking her Bumex consistently as instructed. She reports she took all of her morning medications. Only recent change in meds was iron. She denies at home oxygen use. She has been using her Symbicort, fast acting albuterol inhaler for shortness of breath, which has been helping. She reports that she has had no significant weight gain since recent hospital discharge. No recent changes in diet, and she says she stays away from salty foods. No sick contacts. She reports this feels similar to her past admissions. Of note, she had a hematology appointment scheduled for 8 AM on 04/30 for her recurrent exudative thoracenteses. She uses a cane for ambulation, but denies falls, or injuries to the chest wall. Patient exhibits mild hypotension at 93/60 at time of admission; vitals otherwise stable. ROS: Patient endorses chest heaviness, COMBS, SOB at rest, and mild swelling in legs. Patient denies fever, chills, nightsweats, weight gain, chest pain, chest palpitations, abdominal pain, N/V/D, urinary s/s, urinary retention, numbness/tingling in arms and legs. Principal Diagnosis Pleural effusion, hypoxic respiratory failure Discharge Exam VITAL SIGNS - Vital signs and nursing notes were reviewed. GENERAL - 77-year-old female appearing her stated age who is in no acute distress. Communicates well with provider and answers questions appropriately. NOSE - Midline and without cyanosis. No epistaxis or purulent drainage noted. MOUTH/OROPHARYNX - Without perioral cyanosis. LUNGS - Chest wall evaluation demonstrates normal chest wall A:P diameter. Auscultation reveals decreased breath sounds at the bilateral bases. Scant rales appreciated. CARDIAC - RRR with S1/S2. No murmur, rubs, or gallops appreciated. EXTREMITIES - Nail clubbing not present. No peripheral cyanosis. No pretibial edema present. +3/5 radial palpated throughout. PSYCH - A&Ox3 and cooperates fully with examiner. Pt is very pleasant and interacts well with examiner. Discharge Data Allergies Allergy/AdvReac Type Severity Reaction Status Date / Time codeine Allergy Severe Anaphylaxis Verified 04/29/23 13:29 celecoxib [From Celebrex] Allergy Intermediate RASH Verified 04/29/23 13:29 cephalexin [From Keflex] Allergy Intermediate Rash Verified 04/29/23 13:29 hydrocodone Allergy Intermediate Rash Verified 04/29/23 13:29 Iodinated Contrast Media Allergy Intermediate RASH Verified 04/29/23 13:29 nickel Allergy Intermediate Rash Verified 04/29/23 13:29 oxycodone Allergy Intermediate Rash Verified 04/29/23 13:29 Sulfa (Sulfonamide Allergy Intermediate RASH TO Verified 04/29/23 13:29 Antibiotics) SULFA DRUGS tetracycline Allergy Intermediate RASH Verified 04/29/23 13:29 capsaicin AdvReac Intermediate CREATINE Verified 04/29/23 13:29 ELEVATION diclofenac AdvReac Intermediate CREATINE Verified 04/29/23 13:29 ELEVATION propylene glycol AdvReac Intermediate CREATINE Verified 04/29/23 13:29 ELEVATION "PREP WITH BLUE DYE" Allergy Intermediate Rash Uncoded 04/29/23 13:29 Consultations 04/29/23 17:00 Consult Hematology Routine Consult Pulmonology Routine 05/01/23 08:08 Consult Nephrology Routine Hospital Course (1) Acute respiratory failure with hypoxia: 1. Acute respiratory failure with hypoxia - Recurrent. The patient has undergone thoracentesis x 3. 2 of her effusions were exudative with the last of which being transudative. Patient has had negative cytology in the past. Her effusions have seem to recur in a relatively short period of time. Echocardiogram showed preserved ejection fraction no significant valve abnormali ty -Status post bilateral thoracentesis 05/02, patient feels significantly better, currently on room air, we decided to increase the dose of Bumex from 2 mg once daily to 2 mg twice daily hopefully that helps prevent come back to the hospital, otherwise the options including pleurodesis or pigtail catheter might be considered if the above approach is futile Discussed with the consulting nephrology, will follow-up with nephrology in 1 week to repeat BMP, patient advised to check her weight on a daily basis, and if has more than 2 pound weight gain contacted primary care doctor/nephrology (2) Pleural effusion: Possibly secondary to volume overload, advanced chronic kidney disease (3) CKD (chronic kidney disease) stage 4, GFR 15-29 ml/min: Plan Assessment & Plan (1) Pleural effusion: Plan: feeling better today, continue IV Bumex, discussed with nephrology, awaiting for pulmonary input [facility] admission 3 thoracenteses: 04/04 (right), 04/19 (left), and 04/20 (right) -all exudative, bloody Pleural fluid cytology was negative for malignancy x3 Chest CT on 04/17 noted no mediastinal lymphadenopathy; however, pulmonology note on 04/21 noted "anterior mediastinal lymphadenopathy" Patient has been unable to get contrast dye due to her kidney function Per pulmonology, pleural effusion is stable; unlikely to repeat thoracentesis Discussed with neurology repeat echocardiogram (2) CHF exacerbation: Plan: Echocardiogram during this admission showed revealed LVEF at 55 to 60% BNP elevated at 179 (however this is lower than last admission, when it was at 217 on 03/27) (3) Hypoxia: Plan: Likely secondary to pleural effusion doing better, currently on room air (4) Type II diabetes mellitus: Plan: Last A1c was 6.6% on 04/16/2023 [facility] A[facility]S She has done okay on SSI without basal in the past admissions Goal BSG range 110-140, CF 50, no carb ratio T2DM diet Adjust regimen as needed (5) Paroxysmal atrial fibrillation: Plan: S/p ICD placement EKG AV dual paced rhythm at 81 bpm Continue carvedilol, amiodarone Resume Eliquis (6) JULIO on CKD (chronic kidney disease) Plan: Elevated creatinine at 2.95 (baseline 2.3 range), EGFR at 14.8 Avoid nephrotoxic agents -Improving today creatinine 2.49 (7) Asthma: Plan: Continue albuterol as needed (8) GERD (gastroesophageal reflux disease): Plan: Continue lansoprazole Total Time Total Time Spent Total Time Spent (In Minutes): 45 mns Discharge Plan Discharge Items Patient Disposition: Home - Self-Care Reason For Visit: SOB/DYSPNEA Discharge Diagnosis: Pleural effusion ,hypoxia Activity: Resume your previous activity Sexual Activity: When tolerated Driving/Machine Use: No limitations Weightbearing: Full weightbearing Non-emergency contact: Attorney Call non-emergency contact if: you have any medication questions Follow-up/Referrals: Gill Ken MD [Physician] - 05/15/23 Chaya Guzmán PA-C [Physician Induction Coordination Engineer] - 05/14/23 1:30 pm Jigna Jovel DO [Primary Care Provider] - 05/07/23 11:00 am (APPOINTMENT WITH [facility]) Diet: Carb Count or DM1 Addtl Attending Provider Instructions: Please weight yourself on a daily basis if you have more than 2 pounds weight gain call your Attorney. Please check your oxygen saturation on a daily basis make sure your saturation with ambulation is more than 90 percent .Please follow with your direct sales consultant in one or two weeks and recheck your kidney function . Please follow with Can Handler zane instructed Pending Studies at Discharge: No Stand-Alone Forms: My [facility] [employer], Smoking Cessation Medications and DC Order Prescriptions: Continued nifedipine 90 mg tablet extended release 90 mg PO HS Qty: 90 3RF levothyroxine 137 mcg capsule 137 mcg PO DAILY Qty: 90 3RF azelastine 137 mcg (0.1 %) aerosol,spray 2 spray INTRANASAL DAILY PRN (Reason: ALLERGIES) Qty: 30 0RF (DME) Accu-Chek Garima Plus test strp Strip See Rx Instructions .ROUTE .MEDSUPPLY Qty: 100 3RF Rx Instructions: Check blood sugars once PRN potassium chloride [Klor-Con M20] 20 mEq tablet,ER particles/crystals 20 meq PO QAM Qty: 90 3RF Eliquis 5 mg tablet 5 mg PO BID Qty: 180 3RF montelukast [Singulair] 10 mg tablet 10 mg PO DAILY Qty: 90 3RF (DME) Hospital Bed [facility] [place], [place] See Rx Instructions .Route Qty: 1 0RF Rx Instructions: Semi-electric hospital bed with mattress and side rails lansoprazole 30 mg capsule,delayed release(DR/EC) 30 mg PO DAILY Qty: 90 3RF calcitriol 0.5 mcg capsule 0.25 mcg PO DAILY levalbuterol HCl 0.63 mg/3 mL solution for nebulization 0.63 mg INHALATION Q4H PRN (Reason: Cough) Qty: 90 3RF atorvastatin 40 mg tablet 40 mg PO HS Qty: 90 3RF mirtazapine 7.5 mg tablet 7.5 mg PO DAILY Qty: 30 5RF (DME) blood-glucose meter [Accu-Chek Garima Plus Meter] Misc See Rx Instructions .ROUTE .MEDSUPPLY Rx Instructions: Used to check blood sugars once PRN nitroglycerin [Nitro-Dur] 0.4 mg/hr patch 24 hour 1 patch TRANSDERMAL QAM Qty: 90 3RF Rx Instructions: remove after 12 hours cholestyramine (with sugar) 4 gram powder 4 ea PO DIRECTED PRN (Reason: Diarrhea) carvedilol 25 mg tablet 25 mg PO BID Qty: 90 3RF Rx Instructions: must administer with a meal/food prednisone 5 mg tablet 5 mg PO QAM Qty: 90 3RF duloxetine [Cymbalta] 60 mg capsule,delayed release(DR/EC) 60 mg PO QAM Qty: 90 3RF albuterol sulfate 90 mcg/actuation HFA aerosol inhaler 2 puff inhalation Q6H PRN (Reason: shortness of breath or wheezing) Qty: 8.5 2RF budesonide-formoterol [Symbicort] 80-4.5 mcg/actuation HFA aerosol inhaler 2 puff inhalation BID Qty: 3 3RF amiodarone 200 mg tablet 200 mg PO DAILY Qty: 30 2RF ferrous sulfate 325 mg (65 mg iron) tablet 325 mg PO DAILY Qty: 30 0RF cetirizine [Zyrtec] 10 mg Tablet 10 mg PO HS betamethasone valerate 0.1 % cream 1 applic TOPICAL UD PRN (Reason: PSORIASIS ) Rx Instructions: Apply to areas of the arms twice daily for up to 2 weeks as needed for flaring. omega 1-ayr-wfb-fish oil [Fish Oil] 1,000 mg (120 mg-180 mg) Capsule 1,000 mg PO BID magnesium oxide 400 mg magnesium Tablet 400 mg PO BID Trulicity 1.5 mg/0.5 mL pen injector 1.5 mg subcut WK Rx Instructions: Inject 1.5 mg into the abdomen once weekly. lidocaine 5 % Adhesive Patch,Medicated 1 patch transdermal QAM PRN (Reason: pain) 30 Days Qty: 30 0RF acetaminophen [Tylenol Arthritis Pain] 650 mg Tablet Extended Release 1,300 mg PO BID Changed bumetanide 1 mg tablet 1 mg PO BID Qty: 180 3RF Rx Instructions: May increase to 2 mg daily for weight gain, SOB, edema. Discharge Orders: Discharge Order (Routine); Ordered 05/03/23 Ordered By: Willie Martinez Admission Data Admit Date/Time: 04/29/23 14:20 Attending Provider: Willie Martinez Admit Provider: Shelton Ramirez Primary Care Provider: Jigna Jovel Other Providers: Akil Porter; Rizwan Mcadams; [facility] Fax; Gill Ken Other Interventions: Discharge Summary Assessment (RN) Last Done: 05/03/23 13:41 Coding Level of Care Code 42260 INP/OBS DISCH >30 MIN Diagnoses Acute respiratory failure with hypoxia J96.01 Pleural effusion J90 CKD (chronic kidney disease) stage 4, GFR 15-29 ml/min N18.4
[2023-05-04] MEDS ORDERED: POTASSIUM CHLORIDE CRTAB 20 MEQ TABCR PO SCH (09:00)
[2023-05-05 10:42] LABS: Albumin 2.7 g/dL (3.8-4.8); Alpha 1 Globulin 0.4 g/dL (0.2-0.3); Alpha 2 Globulin 1.1 g/dL (0.5-0.9); Beta-1-Globulin 0.2 g/dL (0.4-0.6); Beta-2-Globulin 0.2 g/dL (0.2-0.5); Gamma Globulin 2.5 g/dL (0.8-1.7); Monoclonal Protein Band 1 2.3 g/dL (NONE DETECTED); Monoclonal Protein Band 2 DNR g/dL (NONE DETECTED); Monoclonal Protein Band 3 DNR g/dL (NONE DETECTED); Total Protein 7.1 g/dL (6.1-8.1)
--- NOTE | 2023-05-08 16:15 | Progress Note ---
Date of Service May 08, 2023 Assessment & Plan (1) Anemia: Plan: I reviewed rest of the labs including serum protein electrophoresis. She has a monoclonal protein M spike of 2.3 g/dL which is increased from January. [place] to lambda light chain ratio is 0.07. At this point I have requested a stat bone marrow biopsy for the patient to rule out underlying multiple myeloma. Patient will follow-up in the clinic in the next couple of weeks with results of the bone marrow biopsy and plans to initiate treatment if I diagnosed with multiple myeloma Plan Hematology will continue to make recommendations. Admission and Anticipated Discharge Date Admission Date: April 29, 2023 Subjective Patient seen and examined. She is saturating well on room air. Her shortness of breath and chest tightness have improved significantly since bilateral thoracentesis yesterday. She denies any fevers, chills or night sweats.
== END 2023-05-03 15:41 | disposition home health service (06) | DRG 291 ==
LOC: ED 09:06 → EDINP 14:20 → SUATTDRO 14:20 → 2N 17:01
DX: Z88.2 Allergy status to sulfonamides; E11.22 Type 2 diabetes mellitus with diabetic chronic kidney disease; N18.4 Chronic kidney disease, stage 4 (severe); I50.23 Acute on chronic systolic (congestive) heart failure; I48.0 Paroxysmal atrial fibrillation; J96.01 Acute respiratory failure with hypoxia; D63.1 Anemia in chronic kidney disease; J91.8 Pleural effusion in other conditions classified elsewhere; Z79.85 Long-term (current) use of injectable non-insulin antidiabetic drugs; Z96.643 Presence of artificial hip joint, bilateral; I13.0 Hypertensive heart and chronic kidney disease with heart failure and stage 1 through stage 4 chronic kidney disease, or unspecified chronic kidney disease; Z87.891 Personal history of nicotine dependence; Z91.041 Radiographic dye allergy status; Z98.1 Arthrodesis status; J45.909 Unspecified asthma, uncomplicated; K21.9 Gastro-esophageal reflux disease without esophagitis; Z88.5 Allergy status to narcotic agent; N17.9 Acute kidney failure, unspecified; Z95.810 Presence of automatic (implantable) cardiac defibrillator

== ENCOUNTER 2023-10-11 12:39 | Inpatient (IN) ==
--- NOTE | 2023-10-11 13:04 | Emergency Department Note ---
Impression & Plan Cellulitis of left lower extremity, JULIO (acute kidney injury), Elevated liver enzymes, Elevated lactic acid level ED Provider Note CHIEF COMPLAINT: Left leg/ankle pain and swelling HISTORY OF PRESENTING ILLNESS: This is a 78-year-old female who presents to the emergency department by private vehicle with complaint of swelling and pain in her left ankle and leg that started yesterday. Patient states she remembered stepping off of a high curb, but does not recall twisting or injuring the ankle or foot and did not have pain until about 4 hours later. She states the pain and swelling have gotten progressively worse and are now radiating up the leg. She describes the pain as aching and 10/10. She tried ice and some tramadol without much improvement. She takes Eliquis for history of atrial fibrillation and denies missing any doses. She denies any history of previous blood clots in her legs. She has not had any fevers or chills or feeling ill. She denies chest pain, chest tightness, shortness of breath, dizziness or syncope, cough or hemoptysis. She does have a history of asthma and CHF. She also notes a history of multiple myeloma on chemotherapy, she does not recall when her last dose of this was. REVIEW OF SYSTEMS: A complete 10 point review of systems was reviewed with the patient with pertinent positives and negatives as per history of present illness. All else were negative. PAST MEDICAL HISTORY: ICD, heart failure, atrial fibrillation, nonischemic cardiomyopathy, multiple myeloma on chemotherapy, hyperlipidemia, type 2 diabetes, chronic kidney disease, GERD, depression, osteoarthritis, history of cholecystectomy, lumbar fusion, thyroidectomy, right total knee arthroplasty SOCIAL HISTORY: Lives at home, former smoker ALLERGIES: Reviewed in chart and with the patient PHYSICAL EXAM: CONSTITUTIONAL: Pleasant and cooperative. Nontoxic-appearing and in no acute distress. HEENT: Normocephalic, atraumatic. NECK: Supple, full active range of motion without discomfort. RESPIRATORY: Fine bibasilar crackles, otherwise clear bilaterally with no wheezing, crackles, rhonchi or stridor. Nonlabored breathing. Equal expansion bilaterally. CARDIOVASCULAR: Regular rate and rhythm with no murmurs, rubs or gallops. Normal peripheral perfusion. Bilateral lower extremity pitting edema. GASTROINTESTINAL: Soft, nontender, nondistended. Obese abdomen. No palpable masses or HSM. Bowel sounds present in all quadrants. MUSCULOSKELETAL: Left lower extremity is diffusely swollen, erythematous and warm to the touch, throughout the entire ankle and calf extending up the medial thigh. Tender to palpation throughout. Small excoriation noted on the medial aspect of the left ankle, no other open wounds or drainage noted. 2+ DP and PT pulses. Brisk cap refill. INTEGUMENTARY: No rash or other significant dermatologic conditions noted. NEUROLOGIC: Alert and oriented X 4 with normal affect. Normal strength and sensation in all 4 extremities. Normal speech. Normal gait observed. ED COURSE AND MEDICAL DECISION MAKING: CC: Patient presenting with complaint of left ankle pain DIFFERENTIAL DIAGNOSIS: Includes, but not limited to ankle sprain/strain, contusion, fracture, dislocation, DVT, superficial thrombosis, cellulitis, abscess, joint infection, bacteremia/sepsis, allergic reaction, among others. INTERPRETATION OF LABS: Mild leukopenia, anemia, normal platelets, hypocalcemia, no other significant electrolyte abnormalities, elevated BUN/creatinine, elevated T. bili, AST and ALT with a normal alk phos. Lactate elevated. Coagulation factors within normal limits. EKG: Indication was history of CHF. Shows AV dual paced rhythm with a rate of 71 bpm, capturing appropriately, no ST elevation, no ectopy, ventricular rate decreased by 15 bpm when compared to previous EKG from 10/07/2023 by my interpretation. MEDICATION RECONCILIATION: I attest that I have personally reviewed the patient's current medication list. INITIAL VITAL SIGNS REVIEW: I reviewed the patient's initial vital signs and interpret them as follows: T: Afebrile; BP: Normotensive; HR: Within normal limits; RR: Within normal limits; Pulse Ox: Within normal limits on room air. MDM SUMMARY: Patient was evaluated at bedside in room D6, history and physical exam performed. Patient is a poor historian, some history provided by friend who brought her in today. She feels she may have injured her left ankle yesterday by stepping off of a curb and has been applying ice and taking tramadol without relief. Patient is alert and oriented, in no acute distress, resting calmly in stretcher. She is afebrile and nontoxic-appearing. Blood pressure is noted to be slightly low 90s to 100s systolic, patient reports her blood pressure runs low normally. She wears compression stockings and had not taken them off at all for past few days. When her compressions stocking was removed, she was noted to have diffuse erythema and warmth throughout the entire leg which is noted to extend up the thigh medially. Tender throughout. She is already on Eliquis and denies any missed doses, seems less likely for DVT. Orders were placed for labs, x-ray imaging of the ankle, venous ultrasound to rule out DVT, lactate and blood cultures. IV morphine for pain. Chest x-ray and EKG for history of CHF. Cardiac monitoring: An order was placed for continuous cardiac monitoring. The monitor shows a rate of 72 bpm with AV paced rhythm. Labs and imaging reviewed, labs notable for mild leukopenia and anemia which appear to be baseline. Renal function noting chronic kidney disease which appears acutely worse today. Also notable in T. bili and liver enzymes, these appear to be previously normal at baseline. Lactate was elevated. Ultrasound of the left leg was negative for DVT. Patient requested additional pain medication, she was given an additional dose of IV morphine. Patient does appear to have pulmonary congestion on her chest x-ray and has a history of CHF on Bumex. Conservative IV fluid bolus with 500 mL for the elevated lactate to start given her history. I discussed with the pharmacist regarding patient's multiple antibiotic allergies, 2 g IV Rocephin was recommended for treatment of her diffuse left leg cellulitis, this was ordered. Given the elevated lactate and other lab abnormalities with diffuse left leg cellulitis, I did feel the patient warranted inpatient admission. Patient reassessed throughout ED stay, blood pressure has been slightly lower, though this may be related to the morphine. She is receiving IV fluid bolus and remains afebrile (36.8) and well-appearing. I spoke with Dr. Alaniz, [facility] hospitalist, who is evaluating the patient for admission. Patient discussed with Dr. Elizondo, ED attending, who agrees with my assessment, plan, and disposition. The chart was completed utilizing [email or web address] Speech voice recognition software. Grammatical errors, random word insertions, pronoun errors, and incomplete sentences are an occasional consequence of this system due to software limitations, ambient noise, and hardware issues. Any formal questions or concerns about the content, text, or information contained within the body of this dictation should be directly addressed to the nurse practitioner for clarification. Past Med/Surg History Problem List (Updated 10/11/23 @ 20:50 by SPEEDY Tipton) Elevated lactic acid level (Acute) Elevated liver enzymes (Acute) JULIO (acute kidney injury) (Acute) Cellulitis of left lower extremity (Acute) Septic shock Cellulitis Hypervolemia associated with renal insufficiency Recurrent serous otitis media of left ear Mixed hearing loss, bilateral Dysfunction of both eustachian tubes Heart failure with improved ejection fraction (HFimpEF) On amiodarone therapy ICD (implantable cardioverter-defibrillator), biventricular, in situ Cardiac pacemaker Recurrent pleural effusion Hypokalemia Asthma Nonischemic cardiomyopathy Hypermagnesemia Paroxysmal ventricular tachycardia Status post placement of cardiac pacemaker Post laminectomy syndrome Hyperlipidemia associated with type 2 diabetes mellitus Submandibular sialoadenitis Hypertension Chronic rhinitis Chronic anticoagulation (Acute) Psoriatic arthritis S/P right colectomy Generalized osteoarthritis Lumbar canal stenosis Pulmonary nodule Right asymmetrical SNHL Stenosis, cervical spine (Chronic) Vitamin D deficiency (Chronic) Depression (Chronic) Psoriasis (Chronic) Peptic ulcer disease (Chronic) GERD (gastroesophageal reflux disease) (Chronic) Esophageal spasm (Chronic) Multiple myeloma currently getting chemo CKD (chronic kidney disease) stage 4, GFR 15-29 ml/min baseline creatinine 2.0-2.2 range; nephrology (Dr. Stevenson) monitoring Spinal meningioma On c-spine- follows with [facility] [place] [place] neurosurgery specialist (Dr. Ken)- under surveillance/stable/no indication for surgical intervention, last seen Summer 2022 Hypothyroidism Type II diabetes mellitus (Unknown) IDDM Iron deficiency anemia Allergic rhinitis Medical History Atrial flutter Paroxysmal atrial fibrillation follows with Dr. Mitchell on eliquis bid Hx of colonic polyps Hx of congestive heart failure Hx of tachycardia-bradycardia syndrome s/p ICD Hx of ventricular tachycardia Hx of pulmonary edema Hx of pleural effusion required thoracentesis x 3 Hx of esophageal spasm Hx of non-ST elevation myocardial infarction (NSTEMI) (~01/2023) post pacer placement, then went back for pacer/defib placement Cardiomyopathy Active asthma inhaler daily/prn, nebulizer prn Chronic dyspnea On anticoagulant therapy eliquis bid Chronic steroid use FOR PSORITRIC ARTHRITIS Esophageal dysmotility Hyperlipidemia Hearing loss, right DEAF RIGHT EAR Hiatal hernia 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 of systemic steroids for psoriatic arthritis Obesity Polyneuropathy Schatzki's ring HTN (hypertension) Peptic ulcer disease Irritable bowel syndrome Psoriatic arthropathy GERD (gastroesophageal reflux disease) CONTROLLED WITH MEDS Surgical History History of thoracentesis x3 Hx of colonoscopy with polypectomy History of bone marrow biopsy (~04/2023) Hx of bilateral cataract extraction Presence of biventricular implantable cardioverter-defibrillator (ICD) History of laparoscopy (~06/2020) exploratory after colectomy @ [facility] [place] [place] History of colectomy (~06/2020) @ [facility] [place] [place] History of total left hip arthroplasty (~12/2019) History of total hip arthroplasty (~2019) x2 RIGHT 05/27/19. Complicated by post-op seroma requiring multiple needle aspirations. LEFT HIP 01/10/20 History of dilatation and curettage History of tooth extraction History of tonsillectomy and adenoidectomy History of cardiac cath X2; firts cath ~2008 (NO STENTS),symptoms of heartburn, [facility] second cath at [facility] 02/14 after epidsode of V-Tach, no stents, sees Dr. Granados History of arthroscopy RT/LEFT KNEE Status post total replacement of left shoulder History of esophagogastroduodenoscopy (EGD) History of total abdominal hysterectomy and bilateral salpingo-oophorectomy History of arthroscopy of right shoulder (~09/2018) History of total knee arthroplasty RIGHT History of foot surgery RT FOOT FUSION History of cholecystectomy History of lumbar fusion H/O thyroidectomy Family History Mother Arthritis Hypertension Father Lung cancer Hypertension Family/Other Family hx of colon cancer 1st cousin Unknown Allergies Breast cancer Hypertension Brother Cancer Heart disease Aunt Colorectal cancer Other No family history of adverse response to anesthesia No family history of bleeding disorder Denies family history of Ovarian cancer Prostate cancer Diabetes Hearing loss Myocardial infarction Stroke Asthma Social History Smoking Status: Former smoker Tobacco Type: Cigarettes Age Quit Using Tobacco: 26; Cigarettes Per Day: 1/2 PPD; Second Hand Exposure: No; Do You Dip or Chew Tobacco: No; Hx Alcohol Use: No Hx Substance Use: No Preferred Language: Georgian Communication Ability: Effective Communication Ability Comment: DEAF RIGHT EAR Visual Impairment: No Limitations Hearing Ability: City Secretary Required: No Beliefs That Will Affect Care: None marital status: / Current Living Situation: Alone Current Living Situation Comment: [place] current occupational status: retired current occupation: Retired How many Children do You have: 0 Feels Safe at Home: Yes Childhood Exposure to Second-Hand Smoke: Yes caffeine: Yes Dental Care, Regularly: Yes Physical Activity Frequency: Does not Exercise Physical Activity Frequency Comment: Hip problems Seatbelt Use: always Sunscreen Use: No Assistive Devices: Denture - Upper, Denture - Lower, Glasses and Walker Allergies Allergies Allergy/AdvReac Type Severity Reaction Status Date / Time codeine Allergy Severe Anaphylaxis Verified 10/11/23 15:03 celecoxib [From Celebrex] Allergy Intermediate RASH Verified 10/11/23 15:03 cephalexin [From Keflex] Allergy Intermediate Rash Verified 10/11/23 15:03 hydrocodone Allergy Intermediate Rash Verified 10/11/23 15:03 Iodinated Contrast Media Allergy Intermediate RASH Verified 10/11/23 15:03 nickel Allergy Intermediate Rash Verified 10/11/23 15:03 oxycodone Allergy Intermediate Rash Verified 10/11/23 15:03 Sulfa (Sulfonamide Allergy Intermediate RASH TO Verified 10/11/23 15:03 Antibiotics) SULFA DRUGS tetracycline Allergy Intermediate RASH Verified 10/11/23 15:03 capsaicin AdvReac Intermediate CREATINE Verified 10/11/23 15:03 ELEVATION diclofenac AdvReac Intermediate CREATINE Verified 10/11/23 15:03 ELEVATION propylene glycol AdvReac Intermediate CREATINE Verified 10/11/23 15:03 ELEVATION "PREP WITH BLUE DYE" Allergy Intermediate Rash Uncoded 10/11/23 15:03 Home Meds Home Medications Medication Instructions Recorded Confirmed magnesium oxide 400 mg PO BID 07/26/18 10/11/23 omega [id number] oil 1,000 mg 1,000 mg PO BID 07/26/18 10/11/23 (120 mg-180 mg) capsule (Fish Oil) cetirizine 10 mg tablet (Zyrtec) 10 mg PO HS 08/22/19 10/11/23 betamethasone valerate 0.1 % 1 applic topical UD PRN PSORIASIS 11/30/19 10/11/23 topical cream blood-glucose meter (Accu-Chek 02/12/21 10/09/23 Garima Plus Meter) acetaminophen 650 mg 1,300 mg PO BID 01/20/23 10/11/23 tablet,extended release (Tylenol Arthritis Pain) calcitriol 0.5 mcg capsule 0.5 mcg PO BID 03/23/23 10/11/23 dulaglutide 1.5 mg/0.5 mL 1.5 mg subcut WK 04/15/23 10/11/23 subcutaneous pen injector (Trulicity) mirtazapine 7.5 mg tablet 7.5 mg PO HS 07/01/23 10/11/23 acyclovir 400 mg tablet 400 mg PO QAM 08/24/23 10/11/23 lenalidomide 10 mg capsule 10 mg PO QAM 08/24/23 10/11/23 (Revlimid) ferrous sulfate 325 mg (65 mg 325 mg PO QAM 09/15/23 10/11/23 iron) tablet insulin glargine 100 unit/mL (3 20 unit subcut QPM 09/15/23 10/11/23 mL) subcutaneous pen (Lantus Solostar U-100 Insulin) lansoprazole 30 mg capsule,delayed 30 mg PO QAM 09/15/23 10/11/23 release levothyroxine 137 mcg tablet 137 mcg PO QAM 09/15/23 10/11/23 montelukast 10 mg tablet 10 mg PO QAM 09/15/23 10/11/23 (Singulair) potassium chloride 20 mEq 20 meq PO BID 09/15/23 10/11/23 tablet,extended release(part/cryst) (Klor-Con M) amiodarone 200 mg tablet 200 mg PO BID 10/11/23 10/11/23 calcium carbonate 600 mg-vitamin 1 tab PO BID 10/11/23 10/11/23 D3 10 mcg (400 unit) tablet ciprofloxacin HCl 0.3 % eye drops See Rx Instructions .Route .COMPLEX 10/11/23 10/11/23 Previous Rx's Medication Instructions Recorded albuterol sulfate 90 mcg/actuation 2 puff inhalation Q6H PRN 09/30/22 aerosol inhaler shortness of breath or wheezing #8.5 grams budesonide-formoterol HFA 80 2 puff inhalation BID #3 Inhalers 09/30/22 mcg-4.5 mcg/actuation aerosol inhaler (Symbicort) apixaban 5 mg tablet (Eliquis) 5 mg PO BID #180 tabs 01/15/23 Hospital Bed [facility] (Hospital #1 ea 03/03/23 Bed) atorvastatin 40 mg tablet 40 mg PO HS #90 tabs 04/15/23 duloxetine 60 mg capsule,delayed 60 mg PO QAM #90 caps 04/24/23 release (Cymbalta) prednisone 5 mg tablet 5 mg PO QAM #90 tabs 04/24/23 bumetanide 1 mg tablet 1 mg PO BID #180 tabs 05/03/23 levalbuterol HCl 0.63 mg/3 mL 0.63 mg (3 mL) inhalation Q4H PRN 05/19/23 solution for nebulization Cough #90 mL carvedilol 25 mg tablet 25 mg PO BID #180 tabs 06/22/23 blood sugar diagnostic (Accu-Chek #100 ea 07/16/23 Garima Plus test strips) cholestyramine (with sugar) 4 gram 4 ea PO DIRECTED PRN Diarrhea 07/22/23 oral powder #378 grams insulin aspart U-100 100 unit/mL 6 unit (0.06 mL) subcut TID #15 mL 08/24/23 (3 mL) subcutaneous pen (Novolog FlexPen U-100 Insulin aspart) blood-glucose sensor (FreeStyle #2 ea 08/25/23 Rafa 3 Sensor device) pen needle, diabetic 32 gauge x #200 ea 09/09/23 5/32" (BD Jaimee 2nd Gen Pen Needle) azelastine 137 mcg (0.1 %) nasal 2 spray intranasal DAILY PRN 09/30/23 spray aerosol ALLERGIES #30 mL digoxin 125 mcg (0.125 mg) tablet 125 mcg PO DAILY Atrial 10/07/23 fibrillation #30 tabs Results & Data (ED) Vital Signs Vital Signs - 24 hr 10/11/23 12:39 10/11/23 12:39 10/11/23 13:22 Temperature 36.6 C Temperature Source Temporal Artery Scan Pulse Rate 78 Pulse Rate [Apical] Pulse Rate from SpO2 Sensor Respiratory Rate 18 18 Blood Pressure 105/69 Blood Pressure [Left Arm] Blood Pressure Mean 81 Blood Pressure Mean [Left Arm] Blood Pressure Position [Left Arm] Pulse Oximetry 98 Oxygen Delivery Method Room Air Sepsis Recent Fever Within 48 Hours No Sepsis New/Unexplained Change in Mental Status N/A Sepsis Action Taken by Nursing No Action Required 10/11/23 13:29 10/11/23 14:40 10/11/23 14:40 Temperature Temperature Source Pulse Rate 70 71 Pulse Rate [Apical] Pulse Rate from SpO2 Sensor 74 Respiratory Rate 21 Blood Pressure 130/64 Blood Pressure [Left Arm] Blood Pressure Mean 85 Blood Pressure Mean [Left Arm] Blood Pressure Position [Left Arm] Pulse Oximetry 96 Oxygen Delivery Method Sepsis Recent Fever Within 48 Hours Sepsis New/Unexplained Change in Mental Status Sepsis Action Taken by Nursing 10/11/23 14:50 10/11/23 15:00 10/11/23 15:00 Temperature Temperature Source Pulse Rate 70 70 Pulse Rate [Apical] Pulse Rate from SpO2 Sensor 71 70 Respiratory Rate 22 20 Blood Pressure 109/63 Blood Pressure [Left Arm] Blood Pressure Mean 67 Blood Pressure Mean [Left Arm] Blood Pressure Position [Left Arm] Pulse Oximetry 95 95 Oxygen Delivery Method Sepsis Recent Fever Within 48 Hours Sepsis New/Unexplained Change in Mental Status Sepsis Action Taken by Nursing 10/11/23 15:10 10/11/23 15:20 10/11/23 15:30 Temperature Temperature Source Pulse Rate 71 75 70 Pulse Rate [Apical] Pulse Rate from SpO2 Sensor 70 72 70 Respiratory Rate 21 24 16 Blood Pressure Blood Pressure [Left Arm] Blood Pressure Mean Blood Pressure Mean [Left Arm] Blood Pressure Position [Left Arm] Pulse Oximetry 95 95 94 Oxygen Delivery Method Sepsis Recent Fever Within 48 Hours Sepsis New/Unexplained Change in Mental Status Sepsis Action Taken by Nursing 10/11/23 15:35 10/11/23 15:35 10/11/23 15:35 Temperature Temperature Source Pulse Rate 71 Pulse Rate [Apical] 70 Pulse Rate from SpO2 Sensor 71 Respiratory Rate 20 19 Blood Pressure 101/54 L Blood Pressure [Left Arm] 101/54 L Blood Pressure Mean 71 Blood Pressure Mean [Left Arm] 69 Blood Pressure Position [Left Arm] Sitting Pulse Oximetry 96 96 Oxygen Delivery Method Sepsis Recent Fever Within 48 Hours Sepsis New/Unexplained Change in Mental Status Sepsis Action Taken by Nursing 10/11/23 15:40 10/11/23 15:50 10/11/23 16:00 Temperature Temperature Source Pulse Rate 71 70 Pulse Rate [Apical] Pulse Rate from SpO2 Sensor 71 70 Respiratory Rate 28 H 19 Blood Pressure 97/54 L Blood Pressure [Left Arm] Blood Pressure Mean 61 Blood Pressure Mean [Left Arm] Blood Pressure Position [Left Arm] Pulse Oximetry 97 96 Oxygen Delivery Method Sepsis Recent Fever Within 48 Hours Sepsis New/Unexplained Change in Mental Status Sepsis Action Taken by Nursing 10/11/23 16:00 10/11/23 16:10 10/11/23 16:20 Temperature Temperature Source Pulse Rate 70 70 70 Pulse Rate [Apical] Pulse Rate from SpO2 Sensor 70 70 70 Respiratory Rate 22 24 22 Blood Pressure Blood Pressure [Left Arm] Blood Pressure Mean Blood Pressure Mean [Left Arm] Blood Pressure Position [Left Arm] Pulse Oximetry 95 95 95 Oxygen Delivery Method Sepsis Recent Fever Within 48 Hours Sepsis New/Unexplained Change in Mental Status Sepsis Action Taken by Nursing 10/11/23 16:27 10/11/23 16:27 10/11/23 16:30 Temperature Temperature Source Pulse Rate 72 70 Pulse Rate [Apical] Pulse Rate from SpO2 Sensor 72 70 Respiratory Rate 20 21 Blood Pressure 100/57 L Blood Pressure [Left Arm] Blood Pressure Mean 84 Blood Pressure Mean [Left Arm] Blood Pressure Position [Left Arm] Pulse Oximetry 95 97 Oxygen Delivery Method Sepsis Recent Fever Within 48 Hours Sepsis New/Unexplained Change in Mental Status Sepsis Action Taken by Nursing 10/11/23 16:40 10/11/23 16:50 10/11/23 17:00 Temperature Temperature Source Pulse Rate 70 70 Pulse Rate [Apical] 70 Pulse Rate from SpO2 Sensor 70 70 Respiratory Rate 21 23 22 Blood Pressure Blood Pressure [Left Arm] 95/52 L Blood Pressure Mean Blood Pressure Mean [Left Arm] 66 Blood Pressure Position [Left Arm] Pulse Oximetry 96 95 95 Oxygen Delivery Method Sepsis Recent Fever Within 48 Hours Sepsis New/Unexplained Change in Mental Status Sepsis Action Taken by Nursing 10/11/23 17:00 10/11/23 17:00 10/11/23 17:10 Temperature Temperature Source Pulse Rate 70 73 Pulse Rate [Apical] Pulse Rate from SpO2 Sensor 70 73 Respiratory Rate 23 18 Blood Pressure 95/52 L Blood Pressure [Left Arm] Blood Pressure Mean 58 Blood Pressure Mean [Left Arm] Blood Pressure Position [Left Arm] Pulse Oximetry 95 92 Oxygen Delivery Method Sepsis Recent Fever Within 48 Hours Sepsis New/Unexplained Change in Mental Status Sepsis Action Taken by Nursing 10/11/23 17:20 10/11/23 17:30 10/11/23 17:40 Temperature Temperature Source Pulse Rate 71 70 73 Pulse Rate [Apical] Pulse Rate from SpO2 Sensor 71 69 80 Respiratory Rate 23 25 H 16 Blood Pressure Blood Pressure [Left Arm] Blood Pressure Mean Blood Pressure Mean [Left Arm] Blood Pressure Position [Left Arm] Pulse Oximetry 98 96 Oxygen Delivery Method Sepsis Recent Fever Within 48 Hours Sepsis New/Unexplained Change in Mental Status Sepsis Action Taken by Nursing 10/11/23 17:50 10/11/23 18:00 10/11/23 18:09 Temperature Temperature Source Pulse Rate 70 Pulse Rate [Apical] Pulse Rate from SpO2 Sensor 70 71 Respiratory Rate 21 19 Blood Pressure 97/58 L Blood Pressure [Left Arm] Blood Pressure Mean 63 Blood Pressure Mean [Left Arm] Blood Pressure Position [Left Arm] Pulse Oximetry 97 98 Oxygen Delivery Method Sepsis Recent Fever Within 48 Hours Sepsis New/Unexplained Change in Mental Status Sepsis Action Taken by Nursing 10/11/23 18:09 10/11/23 18:10 10/11/23 18:20 Temperature Temperature Source Pulse Rate 70 70 70 Pulse Rate [Apical] Pulse Rate from SpO2 Sensor 70 71 70 Respiratory Rate 20 20 21 Blood Pressure Blood Pressure [Left Arm] Blood Pressure Mean Blood Pressure Mean [Left Arm] Blood Pressure Position [Left Arm] Pulse Oximetry 98 93 Oxygen Delivery Method Sepsis Recent Fever Within 48 Hours Sepsis New/Unexplained Change in Mental Status Sepsis Action Taken by Nursing 10/11/23 18:30 10/11/23 18:40 10/11/23 18:50 Temperature Temperature Source Pulse Rate 70 69 70 Pulse Rate [Apical] Pulse Rate from SpO2 Sensor 70 70 70 Respiratory Rate 22 18 20 Blood Pressure Blood Pressure [Left Arm] Blood Pressure Mean Blood Pressure Mean [Left Arm] Blood Pressure Position [Left Arm] Pulse Oximetry 94 96 96 Oxygen Delivery Method Sepsis Recent Fever Within 48 Hours Sepsis New/Unexplained Change in Mental Status Sepsis Action Taken by Nursing 10/11/23 19:00 10/11/23 19:00 10/11/23 19:06 Temperature Temperature Source Pulse Rate 70 Pulse Rate [Apical] Pulse Rate from SpO2 Sensor 70 Respiratory Rate 26 H Blood Pressure 72/38 L 84/59 L Blood Pressure [Left Arm] Blood Pressure Mean 53 64 Blood Pressure Mean [Left Arm] Blood Pressure Position [Left Arm] Pulse Oximetry 98 Oxygen Delivery Method Sepsis Recent Fever Within 48 Hours Sepsis New/Unexplained Change in Mental Status Sepsis Action Taken by Nursing 10/11/23 19:06 10/11/23 19:10 10/11/23 19:15 Temperature Temperature Source Pulse Rate 72 70 Pulse Rate [Apical] Pulse Rate from SpO2 Sensor 71 220 H Respiratory Rate 21 36 H Blood Pressure 87/52 L Blood Pressure [Left Arm] Blood Pressure Mean 57 Blood Pressure Mean [Left Arm] Blood Pressure Position [Left Arm] Pulse Oximetry 94 Oxygen Delivery Method Sepsis Recent Fever Within 48 Hours Sepsis New/Unexplained Change in Mental Status Sepsis Action Taken by Nursing 10/11/23 19:15 10/11/23 19:20 10/11/23 19:24 Temperature Temperature Source Pulse Rate 71 78 Pulse Rate [Apical] Pulse Rate from SpO2 Sensor 72 80 Respiratory Rate 37 H 33 H Blood Pressure 85/51 L Blood Pressure [Left Arm] Blood Pressure Mean 66 Blood Pressure Mean [Left Arm] Blood Pressure Position [Left Arm] Pulse Oximetry 94 94 Oxygen Delivery Method Sepsis Recent Fever Within 48 Hours Sepsis New/Unexplained Change in Mental Status Sepsis Action Taken by Nursing 10/11/23 19:24 10/11/23 19:28 10/11/23 19:28 Temperature Temperature Source Pulse Rate 81 71 Pulse Rate [Apical] Pulse Rate from SpO2 Sensor 77 72 Respiratory Rate Blood Pressure 84/46 L Blood Pressure [Left Arm] Blood Pressure Mean 52 Blood Pressure Mean [Left Arm] Blood Pressure Position [Left Arm] Pulse Oximetry 93 96 Oxygen Delivery Method Sepsis Recent Fever Within 48 Hours Sepsis New/Unexplained Change in Mental Status Sepsis Action Taken by Nursing Laboratory Data 10/11/23 13:25 10/11/23 13:25 Lab Results 10/11/23 10/11/23 10/11/23 Range/Units 13:25 15:13 17:55 WBC 4.21 L (4.8-10.8) K/ul RBC 3.29 L (4.20-5.40) M/uL Hgb 11.0 L (12.0-16.0) g/dl Hct 34.5 L (37.0-47.0) % MCV 104.9 H (80.0-100.0) fL MCH 33.4 (25.0-34.0) pg MCHC 31.9 L (32.0-36.0) g/dL RDW Std Deviation 72.6 H (36.4-46.3) fL RDW Coeff of Amrita 18.7 H (11.5-14.5) % Plt Count 179 (130-400) K/uL MPV 10.8 (9.4-12.4) fL Neutrophils % (Manual) 72 % Lymphocytes % (Manual) 15 % Monocytes % (Manual) 1 % Eosinophils % (Manual) 2 % Basophils % (Manual) 1 % Metamyelocytes % (Man) 9 % Neutrophils # (Manual) 3.03 (1.40-6.50) K/uL Total Absolute Neuts 3.03 (1.4-6.5) K/uL Lymphocytes # (Manual) 0.63 L (1.2-3.4) K/uL Total Abs Lymphocytes 0.63 L (1.2-3.4) K/uL Monocytes # (Manual) 0.04 L (0.11-0.59) K/uL Eosinophils # (Manual) 0.08 (0-0.50) K/uL Basophils # (Manual) 0.04 (0-0.2) K/uL Metamyelocytes # (Man) 0.38 H (0-0) K/uL Toxic Vacuolation 1+ Polychromasia 1+ Tear Drop Cells 1+ Ovalocytes 1+ ESR 22 (0-30) mm/hr PT 13.0 H (9.0-12.0) Seconds INR 1.2 H (0.9-1.1) APTT 31 (21-31) Seconds PTT Ratio 1.2 Sodium 138 (136-145) mmol/L Potassium 4.5 (3.5-5.1) mmol/L Chloride 100 (98-107) mmol/L Carbon Dioxide 26 (21-32) mmol/L Anion Gap 12 H (3-11) BUN 39 H (6-23) mg/dl Creatinine 2.98 H (0.6-1.2) mg/dl Est Cr Clr Drug Dosing 21.5 ml/min Est GFR ( Amer) 16.8 ml/min Est GFR (Non-Af Amer) 14.5 ml/min BUN/Creatinine Ratio 13.1 (10-20) Glucose 150 H (70-99(Fasting)) mg/dl Lactate 4.0 H* 3.9 H* (0.4-2.0) mmol/L Calcium 7.4 L (8.6-10.3) mg/dl Total Bilirubin 1.6 H (0.2-1.0) mg/dl AST 160 H (13-39) U/L ALT 203 H (7-52) U/L Alkaline Phosphatase 103 (34-104) U/L C-Reactive Protein 12.15 H (0-0.5) mg/dl B-Natriuretic Peptide (0-100) pg/ml Total Protein 5.4 L (6.0-8.3) gm/dl Albumin 3.4 (3.4-5.0) gm/dl Globulin 2.0 L (2.5-4.0) gm/dl Albumin/Globulin Ratio 1.7 (0.9-2) Procalcitonin 4.80 H (0-0.5) ng/ml Random Cortisol mcg/dl Nasal Screen MRSA (PCR) Negative (Negative) 10/11/23 Range/Units 18:38 WBC (4.8-10.8) K/ul RBC (4.20-5.40) M/uL Hgb (12.0-16.0) g/dl Hct (37.0-47.0) % MCV (80.0-100.0) fL MCH (25.0-34.0) pg MCHC (32.0-36.0) g/dL RDW Std Deviation (36.4-46.3) fL RDW Coeff of Amrita (11.5-14.5) % Plt Count (130-400) K/uL MPV (9.4-12.4) fL Neutrophils % (Manual) % Lymphocytes % (Manual) % Monocytes % (Manual) % Eosinophils % (Manual) % Basophils % (Manual) % Metamyelocytes % (Man) % Neutrophils # (Manual) (1.40-6.50) K/uL Total Absolute Neuts (1.4-6.5) K/uL Lymphocytes # (Manual) (1.2-3.4) K/uL Total Abs Lymphocytes (1.2-3.4) K/uL Monocytes # (Manual) (0.11-0.59) K/uL Eosinophils # (Manual) (0-0.50) K/uL Basophils # (Manual) (0-0.2) K/uL Metamyelocytes # (Man) (0-0) K/uL Toxic Vacuolation Polychromasia Tear Drop Cells Ovalocytes ESR (0-30) mm/hr PT (9.0-12.0) Seconds INR (0.9-1.1) APTT (21-31) Seconds PTT Ratio Sodium (136-145) mmol/L Potassium (3.5-5.1) mmol/L Chloride (98-107) mmol/L Carbon Dioxide (21-32) mmol/L Anion Gap (3-11) BUN (6-23) mg/dl Creatinine (0.6-1.2) mg/dl Est Cr Clr Drug Dosing ml/min Est GFR ( Amer) ml/min Est GFR (Non-Af Amer) ml/min BUN/Creatinine Ratio (10-20) Glucose (70-99(Fasting)) mg/dl Lactate 4.4 H* (0.4-2.0) mmol/L Calcium (8.6-10.3) mg/dl Total Bilirubin (0.2-1.0) mg/dl AST (13-39) U/L ALT (7-52) U/L Alkaline Phosphatase (34-104) U/L C-Reactive Protein (0-0.5) mg/dl B-Natriuretic Peptide 525 H (0-100) pg/ml Total Protein (6.0-8.3) gm/dl Albumin (3.4-5.0) gm/dl Globulin (2.5-4.0) gm/dl Albumin/Globulin Ratio (0.9-2) Procalcitonin (0-0.5) ng/ml Random Cortisol 32.41 mcg/dl Nasal Screen MRSA (PCR) (Negative) Administered Medications Daptomycin 350 mg/ Syringe 7 mls @ 3.5 mls/min IV Q48H [facility]; Protocol Stop: 10/18/23 17:59 Last Admin: 10/11/23 17:58 Dose: 3.5 mls/min Documented By: ASIM Phenylephrine HCl (Phenylephrine/Nss) 25 mg in 250 mls @ 32.67 mls/hr IV .Q7H40M CAROL; Protocol Stop: 11/10/23 19:14 Last Admin: 10/11/23 19:26 Dose: 0.5 mcg/kg/min, 32.7 mls/hr Documented By: ASIM Co-signed By: JACK Discontinued Medications Albuterol (Albut/Ipratrop 3mg/0.5mg Neb 3 Ml Vial) 3 ml NEB NOW STA; Protocol Stop: 10/11/23 17:19 Last Admin: 10/11/23 17:56 Dose: 3 ml Documented By: ASIM Hydrocortisone Sodium Succinate (Hydrocortisone Sod Succinate 100 Mg/2 Ml Vial) 100 mg IV NOW STA Stop: 10/11/23 18:26 Last Admin: 10/11/23 18:44 Dose: 100 mg Documented By: ASIM Sodium Chloride (Nss) 500 mls @ 999 mls/hr IV .Q31M ONE Stop: 10/11/23 17:22 Last Infusion: 10/11/23 17:53 Dose: Infused Documented By: Admin: 10/11/23 17:04 Dose: 999 mls/hr Documented By: ASIM Ceftriaxone Sodium (Rocephin) 2,000 mg in 50 mls @ 100 mls/hr IV NOW STA Stop: 10/11/23 17:27 Last Admin: 10/11/23 17:49 Dose: Not Given Documented By: ASIM Bumetanide 1 mg/ Syringe 4 mls @ 4 mls/min IV ONE ONE Stop: 10/11/23 17:46 Last Admin: 10/11/23 17:59 Dose: 4 mls/min Documented By: ASIM Piperacillin Sod/Tazobactam Sod (Zosyn) 4.5 gm in 100 mls @ 200 mls/hr IV ONE ONE Stop: 10/11/23 18:04 Last Infusion: 10/11/23 18:44 Dose: Infused Documented By: Admin: 10/11/23 17:59 Dose: 200 mls/hr Documented By: ASIM Famotidine (Pepcid 20mg Iv Push) 20 mg in 5 mls @ 2.5 mls/min IV NOW STA Stop: 10/11/23 19:23 Last Admin: 10/11/23 19:29 Dose: 2.5 mls/min Documented By: ASIM Pantoprazole Sodium 40 mg/ (Syringe) 10 mls @ 5 mls/min IV NOW STA Stop: 10/11/23 19:24 Last Admin: 10/11/23 20:33 Dose: 5 mls/min Parenteral Electrolytes (Plasma-Lyte A Ph 7.4) 250 mls @ 999 mls/hr IV .Q16M ONE Stop: 10/11/23 20:42 Last Admin: 10/11/23 20:20 Dose: 999 mls/hr Morphine Sulfate (Morphine Sulfate 4 Mg/Ml 1 Ml Carp\\Vial) 4 mg IV NOW STA Stop: 10/11/23 12:57 Last Admin: 10/11/23 13:24 Dose: 4 mg Documented By: JACK Morphine Sulfate (Morphine Sulfate 4 Mg/Ml 1 Ml Carp\\Vial) 4 mg IV NOW STA Stop: 10/11/23 15:40 Last Admin: 10/11/23 15:42 Dose: 4 mg Documented By: ASIM Ondansetron HCl (Ondansetron Inj 2 Mg/Ml 2 Ml Vial) 4 mg IV NOW STA Stop: 10/11/23 19:23 Last Admin: 10/11/23 19:27 Dose: Not Given Documented By: ASIM Ondansetron HCl (Ondansetron Inj 2 Mg/Ml 2 Ml Vial) Confirm Administered Dose 4 mg .ROUTE .STK-MED ONE Stop: 10/11/23 19:23 Last Admin: 10/11/23 19:26 Dose: 4 mg Documented By: ASIM Imaging Data Radiologist's Impression: Ankle X-Ray 10/11/23 12:56 XR ankle LT min 3V routine, XR foot LT min 3V routine HISTORY: 78 years-old Female swelling, pain, stepped off curb acute left lower extremity pain status post fall COMPARISON: None TECHNIQUE: 3 views of the left foot with 3 views of the left ankle FINDINGS: ANKLE: Moderate circumferential soft tissue swelling. Mild osteoarthritis. No acute fracture, dislocation or osteochondral defect. FOOT: Moderate diffuse soft tissue swelling. Large plantar calcaneal osteophyte. Mild to moderate osteoarthritis. IMPRESSION: Soft tissue swelling without acute fracture or dislocation identified. ACT 112: Negative or not required by law. The above report was generated using voice recognition software. It may contain grammatical, syntax or spelling errors. Electronically signed by: Haseeb Steiner M.D. 10/11/2023 1:18 PM Foot X-Ray 10/11/23 12:56 XR ankle LT min 3V routine, XR foot LT min 3V routine HISTORY: 78 years-old Female swelling, pain, stepped off curb acute left lower extremity pain status post fall COMPARISON: None TECHNIQUE: 3 views of the left foot with 3 views of the left ankle FINDINGS: ANKLE: Moderate circumferential soft tissue swelling. Mild osteoarthritis. No acute fracture, dislocation or osteochondral defect. FOOT: Moderate diffuse soft tissue swelling. Large plantar calcaneal osteophyte. Mild to moderate osteoarthritis. IMPRESSION: Soft tissue swelling without acute fracture or dislocation identified. ACT 112: Negative or not required by law. The above report was generated using voice recognition software. It may contain grammatical, syntax or spelling errors. Electronically signed by: Haseeb Steiner M.D. 10/11/2023 1:18 PM Venous Doppler Study 10/11/23 12:56 LEFT LOWER EXTREMITY VENOUS DOPPLER HISTORY: Acute pain and swelling of the left lower leg swelling, redness, pain COMPARISON STUDY: 07/01/2023. FINDINGS: There is normal compressibility, flow, and augmentation within the left lower extremity deep venous system. Subcutaneous edema. IMPRESSION: No DVT within the left lower extremity. ACT 112: Negative or not required by law. Electronically signed by: Haseeb Steiner M.D. 10/11/2023 2:17 PM Chest X-Ray 10/11/23 13:04 XR chest 1V portable HISTORY: 78 years-old Female edema, h/o chf acute shortness of breath COMPARISON: 08/26/2023 TECHNIQUE: AP view of the chest FINDINGS: Cardiac silhouette is enlarged. Left subclavian pacer/AICD.. Pulmonary vascular congestion. No pneumothorax. Small pleural effusions with mild bibasilar densities. Left shoulder arthroplasty. 10 mm nodular density projects over the right upper lung. IMPRESSION: 1. Cardiomegaly with pulmonary vascular congestion. 2. Small pleural effusions with mild bibasilar atelectasis. 3. 10 mm nodule versus artifact projects over the right upper lung. ACT 112: Negative or not required by law. The above report was generated using voice recognition software. It may contain grammatical, syntax or spelling errors. Electronically signed by: Haseeb Steiner M.D. 10/11/2023 1:51 PM Discharge Plan Visit Data Chief Complaint: Ankle Pain Stated Complaint: LT ANKLE SWOLLEN, NO PRESSURE ON IT ED Provider: Jose Elizondo ED Midlevel Provider: Dionne Agee Discharge Problem: Cellulitis of left lower extremity, JULIO (acute kidney injury), Elevated liver enzymes, Elevated lactic acid level Patient Disposition: Admitted As Inpatient Discharge Instructions Interventions: ED Discharge Assessment Last Done: 10/11/23 19:58
--- NOTE | 2023-10-11 13:20 | XRay Report ---
XR ankle LT min 3V routine, XR foot LT min 3V routine HISTORY: 78 years-old Female swelling, pain, stepped off curb acute left lower extremity pain status post fall COMPARISON: None TECHNIQUE: 3 views of the left foot with 3 views of the left ankle FINDINGS: ANKLE: Moderate circumferential soft tissue swelling. Mild osteoarthritis. No acute fracture, dislocation or osteochondral defect. FOOT: Moderate diffuse soft tissue swelling. Large plantar calcaneal osteophyte. Mild to moderate osteoarth ritis. IMPRESSION: Soft tissue swelling without acute fracture or dislocation identified. ACT 112: Negative or not required by law. The above report was generated using voice recognition software. It may contain grammatical, syntax o r spelling errors. Electronically signed by: Haseeb Steiner M.D. 10/11/2023 1:18 PM
[2023-10-11] MEDS: MoRPHine SULFATE 4 MG/ML 1 ML CARP\\VIAL IV STA ×2 (13:24→15:42)
--- NOTE | 2023-10-11 13:53 | XRay Report ---
XR chest 1V portable HISTORY: 78 years-old Female edema, h/o chf acute shortness of breath COMPARISON: 08/26/2023 TECHNIQUE: AP view of the chest FINDINGS: Cardiac silhouette is enlarged. Left subclavian pacer/AICD.. Pulmonary vascular congestion. No pneumo thorax. Small pleural effusions with mild bibasilar densities. Left shoulder arthroplasty. 10 mm nodu lar density projects over the right upper lung. IMPRESSION: 1. Cardiomegaly with pulmonary vascular congestion. 2. Small pleural effusions with mild bibasilar atelectasis. 3. 10 mm nodule versus artifact projects over the right upper lung. ACT 112: Negative or not required by law. The above report was generated using voice recognition software. It may contain grammatical, syntax o r spelling errors. Electronically signed by: Haseeb Steiner M.D. 10/11/2023 1:51 PM
[2023-10-11 14:03] LABS: Hematocrit (blood only) 34.5 % (37.0-47.0); Mean Corpuscular Hemoglobin 33.4 pg (25.0-34.0); Mean Corpuscular Hgb Conc 31.9 g/dL (32.0-36.0); Mean Corpuscular Volume 104.9 fL (80.0-100.0); Mean Platelet Volume 10.8 fL (9.4-12.4); Platelet Count 179 K/uL (130-400); RDW Coefficient of Variation 18.7 % (11.5-14.5); RDW Standard Deviation 72.6 fL (36.4-46.3); Red Blood Count 3.29 M/uL (4.20-5.40); White Blood Count 4.21 K/ul (4.8-10.8)
[2023-10-11 14:08] LABS: Albumin Globulin Ratio 1.7 (0.9-2); Albumin Level 3.4 gm/dl (3.4-5.0); BUN Creatinine Ratio 13.1 (10-20); Bilirubin,Total 1.6 mg/dl (0.2-1.0); Calcium 7.4 mg/dl (8.6-10.3); Creatinine Clr Calc Pharmacy 21.5 ml/min; Est GFR (African American) 16.8 ml/min; Est GFR (Non-African American) 14.5 ml/min; Potassium 4.5 mmol/L (3.5-5.1); Total Protein 5.4 gm/dl (6.0-8.3)
[2023-10-11 14:11] LABS: INR 1.2 (0.9-1.1); Partial Thromboplastin Ratio 1.2; Partial Thromboplastin Time 31 Seconds (21-31)
--- NOTE | 2023-10-11 14:18 | Electrocardiogram Report ---
Test Reason : Blood Pressure : / mmHG Vent. Rate : 071 BPM Atrial Rate : 071 BPM P-R Int : 122 ms QRS Dur : 108 ms QT Int : 370 ms P-R-T Axes : 059 -17 163 degrees QTc Int : 402 ms AV dual-paced rhythm Abnormal ECG When compared with ECG of 07-OCT-2023 13:04, Vent. rate has decreased BY 15 BPM Confirmed by Harvey Alaniz ([id number]) on 10/11/2023 2:17:54 PM Referred By: Confirmed By:Harvey Alaniz
--- NOTE | 2023-10-11 14:20 | Ultrasound Report ---
LEFT LOWER EXTREMITY VENOUS DOPPLER HISTORY: Acute pain and swelling of the left lower leg swelling, redness, pain COMPARISON STUDY: 07/01/2023. FINDINGS: There is normal compressibility, flow, and augmentation within the left lower extremity yobany p venous system. Subcutaneous edema. IMPRESSION: No DVT within the left lower extremity. ACT 112: Negative or not required by law. Electronically signed by: Haseeb Steiner M.D. 10/11/2023 2:17 PM
[2023-10-11 14:23] LABS: ALC (manual) 0.63 K/uL (1.2-3.4); ANC (manual) 3.03 K/uL (1.4-6.5); Basophils # (manual) 0.04 K/uL (0-0.2); Basophils % (manual) 1 %; Eosinophils # (manual) 0.08 K/uL (0-0.50); Eosinophils % (manual) 2 %; Lymphocytes # (manual) 0.63 K/uL (1.2-3.4); Lymphocytes % (manual) 15 %; Metamyelocytes # (manual) 0.38 K/uL (0-0); Metamyelocytes % (manual) 9 %; Monocytes # (manual) 0.04 K/uL (0.11-0.59); Monocytes % (manual) 1 %; Neutrophils # (manual) 3.03 K/uL (1.40-6.50); Neutrophils % (manual) 72 %; Ovalocytes 1+; Polychromasia 1+; Tear Drop Cells 1+; Toxic Vacuolation 1+
[2023-10-11] MEDS: SODIUM CHLORIDE 0.9% 500 ML IV ONE (17:04)
--- NOTE | 2023-10-11 17:16 | History & Physical Report ---
Date of Service October 11, 2023 Assessment & Plan (1) Septic shock: Plan: Initially did not meet SIRS criteria but given elevated procalcitonin and now with hypotension this is consistent with sepsis meeting qSOFA score 3 Unclear if hypotension due to sepsis (following antibiotics causing toxin release) +/- intravascular depletion (following Bumex administration despite overall body fluid increased) Fluid bolus not given due to concern for congestive heart failure Hypotension in ER also somewhat vasovagal as occurred in setting of vomiting and appeared to improve slightly after controlling this Started on phenylephrine and patient will be admitted to the ICU for ongoing treatment - discussed care with [place] [facility] on admission Procalcitonin 4.8 Source = cellulitis (2) Cellulitis: Plan: Given immunosuppression and diabetes started broad spectrum coverage with daptomycin and Zosyn Follow up blood cultures (3) Hypervolemia associated with renal insufficiency: Plan: BNP increased, LFTs increased suggestive of liver congestion, weight increased, increased peripheral edema, shortness of breath with pulmonary edema on CXR Probably less heart failure related at this stage given most recent echo with improved ejection fraction and hypervolemia mostly driven by CKD Bumex 1mg PO BID; occasionally takes extra dose but none recently Bumex 1mg IV given but subsequently became hypotensive therefore will defer ongoing doses Strict I&Os Daily weights (4) Paroxysmal atrial fibrillation: Plan: Currently AV dual paced rhythm Digoxin level with a.m. labs Will defer amiodarone and carvedilol dosing as need per ICU team given current hypotension (5) Asthma: Plan: No current exacerbation suspected Duoneb given in the ER Continue her usual inhaler (6) Multiple myeloma: Plan: Hold Revlimid given increased risk of severe infections (7) CKD (chronic kidney disease) stage 4, GFR 15-29 ml/min: Plan: Worse than baseline Cr 2.14, Cr 2.98 on admission Suspected pre-renal. Issa catheter inserted. UA ordered with Pr/Cr ratio. Monitor UO closely. (8) Hypothyroidism: Plan: TSH 7.442 in August, no need to repeat Continue her usual levothyroxine dosing once she can take PO meds (9) Type II diabetes mellitus: Plan: HbA1C 9.0 in July, no need to repeat Hold Basal dosing at this time while NPO BSG ACHS Consult pharmacy for glycemic control (10) GERD (gastroesophageal reflux disease): Plan: Switch lansoprazole to pantoprazole 40mg IV daily (11) Elevated liver enzymes: Plan: Suspected liver congestion, consider imaging if getting worse but no RUQ pain on exam and clear alternative source of infection (12) Paroxysmal ventricular tachycardia: Plan: Continue amiodarone if possible with her BP but will defer this to the ICU team Mg level added, K > 4 (13) Hypertension: Plan: Hold all antihypertensives at this time due to septic shock Plan VTE Prophyalxis - Restart Eliquis when she can take PO meds Diet - NPO Disposition - admit to ICU Admission and Anticipated Discharge Date Admission Date: October 11, 2023 History of Present Illness Chief Complaint: Left ankle pain Primary Care Provider: DO Mike Watkins Jai is a 78 year old female who presents to the ER with left ankle pain. Left ankle pain started yesterday when she though she had sprained it and started putting ice on it. It became worse overnight therefore came to the ER for XRs. She denies any fever or chills. In the ER she had her leg stockings removed and only then did she notice her leg redness up to her groin. No prior history of MRSA. She has a significant history of heart failure with improved ejection fraction following Biventricular pacemaker and carvedilol use. Most recent echocardiogram in April with LVEF 55-60% with no regional wall abnormalities. Despite this she reports 10lb weight gain in a week with associated leg swelling. Shortness of breath just when she came to the ER. She denies any orthopnea but does not lie flat due to her reflux. No paroxsmal nocturnal dyspnea, palpitations, chest pain or dizziness. No current nausea, vomiting, abdominal pain, diarrhea, melena, hematochezia. No cough, nasal congestion, urinary symptoms. She has CKD stage G4 (A3 per most recent nephrology note but on review of recent protein/Cr ratios appear normal). She reports being on prednisone as if she stops taking it her kidneys get worse. She takes Revlimid for multiple myeloma (last does this morning). She notes she was recently taking Augmentin for sinusitis prescribed on October 01 but had to stop taking it 4 days ago due to diarrhea which has now improved. Initially she was fully conversational while taking a history with BP 95/52. While in the ER following Daptomycin, Zosyn, Bumex, duoneb: I re-entered her room to find her less responsive and appeared to have vomited. BP 72/38. Delayed cap refil. Telemetry had not changed. POC glucose 184. She was alert enough to try and spit out residual sick. She continued to vomit and ondansetron, famotidine and pantoprazole were ordered. ICU team were contacted and she was started on phenylephrine IV drip with improvement in her BP and cognition. She was transported to the ICU for further care. Allergies Allergy/AdvReac Type Severity Reaction Status Date / Time codeine Allergy Severe Anaphylaxis Verified 10/11/23 15:03 celecoxib [From Celebrex] Allergy Intermediate RASH Verified 10/11/23 15:03 cephalexin [From Keflex] Allergy Intermediate Rash Verified 10/11/23 15:03 hydrocodone Allergy Intermediate Rash Verified 10/11/23 15:03 Iodinated Contrast Media Allergy Intermediate RASH Verified 10/11/23 15:03 nickel Allergy Intermediate Rash Verified 10/11/23 15:03 oxycodone Allergy Intermediate Rash Verified 10/11/23 15:03 Sulfa (Sulfonamide Allergy Intermediate RASH TO Verified 10/11/23 15:03 Antibiotics) SULFA DRUGS tetracycline Allergy Intermediate RASH Verified 10/11/23 15:03 capsaicin AdvReac Intermediate CREATINE Verified 10/11/23 15:03 ELEVATION diclofenac AdvReac Intermediate CREATINE Verified 10/11/23 15:03 ELEVATION propylene glycol AdvReac Intermediate CREATINE Verified 10/11/23 15:03 ELEVATION "PREP WITH BLUE DYE" Allergy Intermediate Rash Uncoded 10/11/23 15:03 Home Medications Medication Instructions Recorded Confirmed Type magnesium oxide 400 mg PO BID 07/26/18 10/11/23 History omega 3-dec-ufj-fish oil 1,000 mg 1,000 mg PO BID 07/26/18 10/11/23 History (120 mg-180 mg) capsule (Fish Oil) cetirizine 10 mg tablet (Zyrtec) 10 mg PO HS 08/22/19 10/11/23 History betamethasone valerate 0.1 % 1 applic topical UD PRN PSORIASIS 11/30/19 10/11/23 History topical cream blood-glucose meter (Accu-Chek 02/12/21 10/09/23 History Garima Plus Meter) albuterol sulfate 90 mcg/actuation 2 puff inhalation Q6H PRN 09/30/22 10/11/23 Rx aerosol inhaler shortness of breath or wheezing #8.5 grams budesonide-formoterol HFA 80 2 puff inhalation BID #3 Inhalers 09/30/22 10/11/23 Rx mcg-4.5 mcg/actuation aerosol inhaler (Symbicort) apixaban 5 mg tablet (Eliquis) 5 mg PO BID #180 tabs 01/15/23 10/11/23 Rx acetaminophen 650 mg 1,300 mg PO BID 01/20/23 10/11/23 History tablet,extended release (Tylenol Arthritis Pain) Hospital Bed Homecare (Hospital #1 ea 03/03/23 10/09/23 Rx Bed) calcitriol 0.5 mcg capsule 0.5 mcg PO BID 03/23/23 10/11/23 History atorvastatin 40 mg tablet 40 mg PO HS #90 tabs 04/15/23 10/11/23 Rx dulaglutide 1.5 mg/0.5 mL 1.5 mg subcut WK 04/15/23 10/11/23 History subcutaneous pen injector (Trulicity) duloxetine 60 mg capsule,delayed 60 mg PO QAM #90 caps 04/24/23 10/11/23 Rx release (Cymbalta) prednisone 5 mg tablet 5 mg PO QAM #90 tabs 04/24/23 10/11/23 Rx bumetanide 1 mg tablet 1 mg PO BID #180 tabs 05/03/23 10/11/23 Rx levalbuterol HCl 0.63 mg/3 mL 0.63 mg (3 mL) inhalation Q4H PRN 05/19/23 10/11/23 Rx solution for nebulization Cough #90 mL carvedilol 25 mg tablet 25 mg PO BID #180 tabs 06/22/23 10/11/23 Rx mirtazapine 7.5 mg tablet 7.5 mg PO HS 07/01/23 10/11/23 History blood sugar diagnostic (Accu-Chek #100 ea 07/16/23 10/09/23 Rx Garima Plus test strips) cholestyramine (with sugar) 4 gram 4 ea PO DIRECTED PRN Diarrhea 07/22/23 10/11/23 Rx oral powder #378 grams acyclovir 400 mg tablet 400 mg PO QAM 08/24/23 10/11/23 History insulin aspart U-100 100 unit/mL 6 unit (0.06 mL) subcut TID #15 mL 08/24/23 10/11/23 Rx (3 mL) subcutaneous pen (Novolog FlexPen U-100 Insulin aspart) lenalidomide 10 mg capsule 10 mg PO QAM 08/24/23 10/11/23 History (Revlimid) blood-glucose sensor (FreeStyle #2 ea 08/25/23 10/09/23 Rx Rafa 3 Sensor device) pen needle, diabetic 32 gauge x #200 ea 09/09/23 10/09/23 Rx 532" (BD Jaimee 2nd Gen Pen Needle) ferrous sulfate 325 mg (65 mg 325 mg PO QAM 09/15/23 10/11/23 History iron) tablet insulin glargine 100 unit/mL (3 20 unit subcut QPM 09/15/23 10/11/23 History mL) subcutaneous pen (Lantus Solostar U-100 Insulin) lansoprazole 30 mg capsule,delayed 30 mg PO QAM 09/15/23 10/11/23 History release levothyroxine 137 mcg tablet 137 mcg PO QAM 09/15/23 10/11/23 History montelukast 10 mg tablet 10 mg PO QAM 09/15/23 10/11/23 History (Singulair) potassium chloride 20 mEq 20 meq PO BID 09/15/23 10/11/23 History tablet,extended release(part/cryst) (Klor-Con M) azelastine 137 mcg (0.1 %) nasal 2 spray intranasal DAILY PRN 09/30/23 10/11/23 Rx spray aerosol ALLERGIES #30 mL digoxin 125 mcg (0.125 mg) tablet 125 mcg PO DAILY Atrial 10/07/23 10/11/23 Rx fibrillation #30 tabs amiodarone 200 mg tablet 200 mg PO BID 10/11/23 10/11/23 History calcium carbonate 600 mg-vitamin 1 tab PO BID 10/11/23 10/11/23 History D3 10 mcg (400 unit) tablet ciprofloxacin HCl 0.3 % eye drops See Rx Instructions .Route .COMPLEX 10/11/23 10/11/23 History Past Med/Surg History Problem List (Updated 10/11/23 @ 20:50 by SPEEDY Tipton) Elevated lactic acid level (Acute) Elevated liver enzymes (Acute) JULIO (acute kidney injury) (Acute) Cellulitis of left lower extremity (Acute) Septic shock Cellulitis Hypervolemia associated with renal insufficiency Recurrent serous otitis media of left ear Mixed hearing loss, bilateral Dysfunction of both eustachian tubes Heart failure with improved ejection fraction (HFimpEF) On amiodarone therapy ICD (implantable cardioverter-defibrillator), biventricular, in situ Cardiac pacemaker Recurrent pleural effusion Hypokalemia Asthma Nonischemic cardiomyopathy Hypermagnesemia Paroxysmal ventricular tachycardia Status post placement of cardiac pacemaker Post laminectomy syndrome Hyperlipidemia associated with type 2 diabetes mellitus Submandibular sialoadenitis Hypertension Chronic rhinitis Chronic anticoagulation (Acute) Psoriatic arthritis S/P right colectomy Generalized osteoarthritis Lumbar canal stenosis Pulmonary nodule Right asymmetrical SNHL Stenosis, cervical spine (Chronic) Vitamin D deficiency (Chronic) Depression (Chronic) Psoriasis (Chronic) Peptic ulcer disease (Chronic) GERD (gastroesophageal reflux disease) (Chronic) Esophageal spasm (Chronic) Multiple myeloma currently getting chemo CKD (chronic kidney disease) stage 4, GFR 15-29 ml/min baseline creatinine 2.0-2.2 range; nephrology (Dr. Stevenson) monitoring Spinal meningioma On c-spine- follows with [facility] neurosurgery specialist (Dr. Ken)- under surveillance/stable/no indication for surgical intervention, last seen Summer 2022 Hypothyroidism Type II diabetes mellitus (Unknown) IDDM Iron deficiency anemia Allergic rhinitis Medical History Atrial flutter Paroxysmal atrial fibrillation follows with Dr. Mitchell on eliquis bid Hx of colonic polyps Hx of congestive heart failure Hx of tachycardia-bradycardia syndrome s/p ICD Hx of ventricular tachycardia Hx of pulmonary edema Hx of pleural effusion required thoracentesis x 3 Hx of esophageal spasm Hx of non-ST elevation myocardial infarction (NSTEMI) (~01/2023) post pacer placement, then went back for pacer/defib placement Cardiomyopathy Active asthma inhaler daily/prn, nebulizer prn Chronic dyspnea On anticoagulant therapy eliquis bid Chronic steroid use FOR PSORITRIC ARTHRITIS Esophageal dysmotility Hyperlipidemia Hearing loss, right DEAF RIGHT EAR Hiatal hernia 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 History of colectomy (~06/2020) @ [facility] History of total left hip arthroplasty (~12/2019) History of total hip arthroplasty (~2019) x2 RIGHT 05/27/19. Complicated by post-op seroma requiring multiple needle aspirations. LEFT HIP 01/10/20 History of dilatation and curettage History of tooth extraction History of tonsillectomy and adenoidectomy History of cardiac cath X2; firts cath ~2008 (NO STENTS),symptoms of heartburn, [facility] second cath at [facility] 02/14 after epidsode of V-Tach, no stents, sees Dr. Granados History of arthroscopy RT/LEFT KNEE Status post total replacement of left shoulder History of esophagogastroduodenoscopy (EGD) History of total abdominal hysterectomy and bilateral salpingo-oophorectomy History of arthroscopy of right shoulder (~09/2018) History of total knee arthroplasty RIGHT History of foot surgery RT FOOT FUSION History of cholecystectomy History of lumbar fusion H/O thyroidectomy Family History Mother Arthritis Hypertension Father Lung cancer Hypertension Family/Other Family hx of colon cancer 1st cousin Unknown Allergies Breast cancer Hypertension Brother Cancer Heart disease Aunt Colorectal cancer Other No family history of adverse response to anesthesia No family history of bleeding disorder Denies family history of Ovarian cancer Prostate cancer Diabetes Hearing loss Myocardial infarction Stroke Asthma Social History Smoking Status: Former smoker Tobacco Type: Cigarettes Age Quit Using Tobacco: 26; Cigarettes Per Day: 1/2 PPD; Second Hand Exposure: No; Do You Dip or Chew Tobacco: No; Hx Alcohol Use: No Hx Substance Use: No Preferred Language: Nigerian Communication Ability: Effective Communication Ability Comment: DEAF RIGHT EAR Visual Impairment: No Limitations Hearing Ability: Living Manager Required: No Beliefs That Will Affect Care: None marital status: / Current Living Situation: Alone Current Living Situation Comment: [place] current occupational status: retired current occupation: Retired How many Children do You have: 0 Feels Safe at Home: Yes Safety Concerns: Feels Safe At This Time Childhood Exposure to Second-Hand Smoke: Yes caffeine: Yes Dental Care, Regularly: Yes Physical Activity Frequency: Does not Exercise Physical Activity Frequency Comment: Hip problems Seatbelt Use: always Sunscreen Use: No Assistive Devices: Denture - Upper, Denture - Lower and Glasses Review of Systems 2 Review of Systems: All systems reviewed & are unremarkable except as noted in HPI & below Physical Exam 2 Constitutional: well developed; + not well nourished and no acute distress (unless she moves her leg) Eyes: PERRL, conjunctivae normal, anicteric sclerae Respiratory: normal respiratory effort; no respiratory distress A uscultation: + diminished lung sounds (bibasal); breath sounds present, no crackles, no rales, no rhonchi and no wheezes Cardiovascular: Rate/Rhythm: regular rate and regular rhythm Heart Sounds: no murmur Extremities: normal capillary refill and + pedal edema (L > R 2+ pitting); no calf tenderness Gastrointestinal (Abdomen): normal bowel sounds, soft, nontender, no hepatosplenomegaly Musculoskeletal: no cyanosis or clubbing, extremities motor strength 5/5 Skin: Erythema and swelling from left foot tracking to medial left groin as per pictures above Neurologic: moves all extremities and awake; no focal motor deficits and not confused Psychiatric: A+Ox3, euthymic affect Genitourinary: no CVA tenderness Results & Data Results & Data Vital Signs (Past 12 Hours) Vital Signs Temp Pulse Pulse Resp BP BP Pulse Ox 10/11/23 17:00 70 22 95/52 L 95 10/11/23 15:35 70 20 101/54 L 96 10/11/23 13:29 70 10/11/23 13:22 10/11/23 12:39 18 10/11/23 12:39 36.6 C 78 18 105/69 98 O2 Del Method 10/11/23 17:00 10/11/23 15:35 10/11/23 13:29 10/11/23 13:22 Room Air 10/11/23 12:39 10/11/23 12:39 Laboratory Results Abnormal lab results 10/11/23 10/11/23 Range/Units 13:25 15:13 WBC 4.21 L (4.8-10.8) K/ul RBC 3.29 L (4.20-5.40) M/uL Hgb 11.0 L (12.0-16.0) g/dl Hct 34.5 L (37.0-47.0) % MCV 104.9 H (80.0-100.0) fL MCHC 31.9 L (32.0-36.0) g/dL RDW Std Deviation 72.6 H (36.4-46.3) fL RDW Coeff of Amrita 18.7 H (11.5-14.5) % Lymphocytes # (Manual) 0.63 L (1.2-3.4) K/uL Total Abs Lymphocytes 0.63 L (1.2-3.4) K/uL Monocytes # (Manual) 0.04 L (0.11-0.59) K/uL Metamyelocytes # (Man) 0.38 H (0-0) K/uL PT 13.0 H (9.0-12.0) Seconds INR 1.2 H (0.9-1.1) Anion Gap 12 H (3-11) BUN 39 H (6-23) mg/dl Creatinine 2.98 H (0.6-1.2) mg/dl Glucose 150 H (70-99(Fasting)) mg/dl Lactate 4.0 H* 3.9 H* (0.4-2.0) mmol/L Calcium 7.4 L (8.6-10.3) mg/dl Total Bilirubin 1.6 H (0.2-1.0) mg/dl AST 160 H (13-39) U/L ALT 203 H (7-52) U/L Total Protein 5.4 L (6.0-8.3) gm/dl Globulin 2.0 L (2.5-4.0) gm/dl Diagnostic Findings XR chest 1V portable HISTORY: 78 years-old Female edema, h/o chf acute shortness of breath COMPARISON: 08/26/2023 TECHNIQUE: AP view of the chest FINDINGS: Cardiac silhouette is enlarged. Left subclavian pacer/AICD.. Pulmonary vascular congestion. No pneumothorax. Small pleural effusions with mild bibasilar densities. Left shoulder arthroplasty. 10 mm nodular density projects over the right upper lung. IMPRESSION: 1. Cardiomegaly with pulmonary vascular congestion. 2. Small pleural effusions with mild bibasilar atelectasis. 3. 10 mm nodule versus artifact projects over the right upper lung. Medications Administered ER Medications Given: Normal saline 500ml bolus Ceftriaxone 2000mg IV (not given, switched for Zosyn) Morphine 4mg IV x2 ECG Rate (beats per minute): 71 Findings: + paced rhythm (AV dual paced) Comparison ECG Date: from (September 07, 2023) Change: no significant change Code Status & VTE Plan Code Status Full VTE Prophylaxis Plan VTE Prophylaxis will be ordered: Yes Critical Care Time Critical Care Time: Yes Total Critical Care Time: 45 PG Care Time/CCT Total # of Minutes Spent Total Time Spent with Patient: Total time spent is greater than 50% in coordination of care (as documented) at patient's floor/unit and/or counseling patient: Critical Care Time: Yes Total Critical Care Time: 45 Coding Level of Care Code 28044 INT INP/OBS CARE 3/75MIN Diagnoses Septic shock A41.9; R65.21 Cellulitis L03.90 Hypervolemia associated with renal insufficiency E87.70; N28.9 Paroxysmal atrial fibrillation I48.0 Asthma J45.909 Multiple myeloma C90.00 CKD (chronic kidney disease) stage 4, GFR 15-29 ml/min N18.4 Acquired hypothyroidism E03.9 Hypothyroidism type: acquired Type 2 diabetes mellitus with stage 4 chronic kidney disease, without long-term current use of insulin E11.22; N18.4 Chronic kidney disease stage: stage 4 (severe) 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 complication detail: with chronic kidney disease 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 complication status: with kidney complications 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 fpc insulin use: 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 Gastroesophageal reflux disease, esophagitis presence not specified K21.9 Esophagitis presence: esophagitis presence not specified Elevated liver enzymes R74.8 Paroxysmal ventricular tachycardia I47.29 Primary hypertension I10 Hypertension type: primary hypertension Additional Codes Critical Care Time - Critical Care Time: Yes ([id number]) (8) Hypothyroidism Hypothyroidism type: acquired Qualified Code(s): E03.9 - Hypothyroidism, unspecified (9) Type II diabetes mellitus Chronic kidney disease stage: stage 4 (severe) 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 complication detail: with chronic kidney disease 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 complication status: with kidney complications 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 fpc insulin use: without fpc use Qualified Code(s): E11.22 - Type 2 diabetes mellitus with diabetic chronic kidney disease; N18.4 - Chronic kidney disease, stage 4 (severe) (10) GERD (gastroesophageal reflux disease) Esophagitis presence: esophagitis presence not specified Qualified Code(s): K 21.9 - Gastro-esophageal reflux disease without esophagitis (13) Hypertension Hypertension type: primary hypertension Qualified Code(s): I10 - Essential (primary) hypertension
[2023-10-11] MEDS: cefTRIAXone SODIUM 2,000 MG/50 ML BAG IV STA (17:49)
[2023-10-11] MEDS: ALBUT/IPRATROP 3MG/0.5MG NEB 3 ML VIAL NEB STA (17:56)
[2023-10-11] MEDS: DAPTOmycin 350 MG in SYRINGE 0 ML IV SCH (17:58)
[2023-10-11] MEDS: PIPERACILLIN/TAZOBACTAM 4.5 GM/100 ML BAG IV ONE (17:59)
[2023-10-11] MEDS: BUMETANIDE 1 MG in SYRINGE 0 ML IV ONE (17:59)
[2023-10-11 18:09] LABS: C Reactive Protein 12.15 mg/dl (0-0.5)
--- NOTE | 2023-10-11 18:42 | Emergency Department Note ---
ED Visit Note I was consulted in regards to the patient's presentation and plan of care by the Advanced Practice Provider. I engaged in a detailed/meaningful discussion with the Advanced Practice Provider in regards to this patient's workup and plan of care. Please see the Advanced Practice Provider's note for full details of the patient encounter. I agree with the assessment and plan of Dionne Agee NP. Jose Elizondo, DO Emergency Medicine .
[2023-10-11] MEDS: HYDROCORTISONE SOD SUCCINATE 100 MG/2 ML VIAL IV STA (18:44)
[2023-10-11] MEDS ORDERED: STAT IV Infusion **Titration per Protocol STA ×2 (19:13→21:23)
[2023-10-11] MEDS: PHENYLEPHRINE/NSS 25 MG/250 ML BAG IV SCH (19:26)
[2023-10-11] MEDS: ONDANSETRON INJ 2 MG/ML 2 ML VIAL ONE (19:26)
[2023-10-11] MEDS: ONDANSETRON INJ 2 MG/ML 2 ML VIAL IV STA (19:27)
[2023-10-11] MEDS: FAMOTIDINE 20MG IV PUSH 20 MG/5 ML SYR IV STA (19:29)
--- NOTE | 2023-10-11 19:39 | Critical Care Consultation ---
Date of Consultation October 11, 2023 Assessment & Plan (1) Septic shock: (2) Cellulitis: (3) ICD (implantable cardioverter-defibrillator), biventricular, in situ: (4) Nonischemic cardiomyopathy: (5) Hyperlipidemia associated with type 2 diabetes mellitus: (6) Hypertension: (7) CKD (chronic kidney disease) stage 4, GFR 15-29 ml/min: (8) GERD (gastroesophageal reflux disease): (9) Type II diabetes mellitus: Plan ICU CONSULT NOTE FORMAT: Reason Critically Ill: 78 YOF presents to the EMD with lower extremity swelling and pain- found to be septic with possible hf component as well. Now requiring vasopressor support. Neuro - Metabolic Encephalopathy CAM ICU: Negative - noted to worsen with decrease in hemodynamics. She is still at this time awake, alert, able to converse and protocet her airway - follow with hemodynamic response - check glucose level now - no focal deficits Cardiac - Shock, NICM with AICD in place, HFpEF, PAF on chronic anticoagulation - Shock at this time may be multifactorial but likely primary septic shock at first- source being left lower leg - organ dysfunction- julio, encephalopathy, heart, elevated LFTs - Supportive care at this time with initiation of vasopressors early- volume as indicated for low urine output or persistent hypotension- eval withbedside POCUS - Neosynepherine for MAPS >65, - She received diuretics upfront in EMD that may also be associated with hypotension at this time. - Await blood cultures - pending clinical course overnight consider ECHO - Continue amiodarone, Apixaban 5 BID-follow renal function , Digoxin, Respiratory - No acute needs at this time - reported hx of asthma- continue PRN chong GI - GERD, Elevated LFTs - continue PPI - she is with n/v on initial assessment- get KUB - abdominal exam is benign- she is with hx of cholecystectomy as well - Elevated LFTs- multifactorial at this time to include- septic shock, possible worsening right sided failure with congestion and worsening peripheral edema, vs. drug induced - amiodarone recently increased- however appears she has been on this for some time without increase in her LFTs RENAL/LYTES - JULIO on CKD III - supportive care as above - follow daily bmp - dig level in morning - No acute needs at this time - doubt urinary source, however will send urine ENDO - DMII, Thyroidectomy - ICU hyperglycemic protocol, continue Synthroid HEME - IgM Multiple myeloma, anemia - no acute need at this time ID - Septic shock secondary to SSTI - Will cover with Daptomycin and Zosyn - await culture data - small excoriation on left medial ankle- no other open area noted - ultrasound of LLE negative for DVT, plain films negative for fracture of foot/ankle - Random cortisol is 32- pending vasopressor requirements consider adding stress dose steroids. LINES/IV ACCESS - alissa MELENDEZey Continue use of these lines - pending clinical course and vasopressor dose- she may need arterial line and CVL DVT PROPHYLAXIS - SCDs, APixaban DISPO: ICU while requiring vasopressor medications I have personally spent 50 minutes of critical care time in the direct management of this patient. This is a life/limb threatening event. This includes time spent evaluating patient, direct bedside care, chart review, placing orders, interpretation of diagnostic studies, discussion with consultants, patient, and family members, as well as other required patient management activities. This time is exclusive of all separately billable procedures, and teaching time and separate from and in addition to any other critical care service time. Thank you for allowing us to participate in the care of this patient. Please refer to my attending physician's documentation for any further recommendations. History of Present Illness Reason for Consultation: shock requiring vasopressors Requesting Physician: Hunter Alaniz Attending Physician: Hunter Alaniz History of Present Illness 78 YOF with medical history of: AICD secondary to NICM, Afib (on Eliquis), chronic dyspnea, IgM Multiple Myeloma (on daratumumab, lenalidomide, and dexamethasone as of July, DMII, Asthma, noted surgical history of: Cholecystectomy, thyroidectomy, and hysterectomy. Patient comes to the EMD today for complaint of increased foot and leg pain as well as dyspnea and reported 10lb weight gain over the past week per her report, however she was just seen this week by her night time babysitter who felt her symptoms of heart failure were well controlled. SHe states that yesterday she noted some lower extremity pain in her foot that occurred overnight and then today, this got progressively worse so she came to the EMD. Upon further examination noted that the patient had swelling and erythema to her left lower leg. She had increase in infective biomarkers as well as her LFTs. She is also noted to have an elevated BNP. She was noted with organ dysfunction of LFT, BNP, and renal indices and is currently more encephalopathic. She was given lasix in the EMD secondary to concern for volume overload. She became more hypotensive and lactate increased. ICU was notified and was placed on neosynephrine. She will be admitted to the ICU for continued support. Will defer to vasopressors as initial resuscitation at this time secondary to her history of heart failure and provide intermittent boluses with reevaluation of u/o, pocus, and physical exam. CODE: FULL Allergies Allergy/AdvReac Type Severity Reaction Status Date / Time codeine Allergy Severe Anaphylaxis Verified 10/11/23 15:03 celecoxib [From Celebrex] Allergy Intermediate RASH Verified 10/11/23 15:03 cephalexin [From Keflex] Allergy Intermediate Rash Verified 10/11/23 15:03 hydrocodone Allergy Intermediate Rash Verified 10/11/23 15:03 Iodinated Contrast Media Allergy Intermediate RASH Verified 10/11/23 15:03 nickel Allergy Intermediate Rash Verified 10/11/23 15:03 oxycodone Allergy Intermediate Rash Verified 10/11/23 15:03 Sulfa (Sulfonamide Allergy Intermediate RASH TO Verified 10/11/23 15:03 Antibiotics) SULFA DRUGS tetracycline Allergy Intermediate RASH Verified 10/11/23 15:03 capsaicin AdvReac Intermediate CREATINE Verified 10/11/23 15:03 ELEVATION diclofenac AdvReac Intermediate CREATINE Verified 10/11/23 15:03 ELEVATION propylene glycol AdvReac Intermediate CREATINE Verified 10/11/23 15:03 ELEVATION "PREP WITH BLUE DYE" Allergy Intermediate Rash Uncoded 10/11/23 15:03 Home Medications Medication Instructions Recorded Confirmed Type magnesium oxide 400 mg PO BID 07/26/18 10/11/23 History omega 3-bvi-igp-fish oil 1,000 mg 1,000 mg PO BID 07/26/18 10/11/23 History (120 mg-180 mg) capsule (Fish Oil) cetirizine 10 mg tablet (Zyrtec) 10 mg PO HS 08/22/19 10/11/23 History betamethasone valerate 0.1 % 1 applic topical UD PRN PSORIASIS 11/30/19 10/11/23 History topical cream blood-glucose meter (Accu-Chek 02/12/21 10/09/23 History Garima Plus Meter) albuterol sulfate 90 mcg/actuation 2 puff inhalation Q6H PRN 09/30/22 10/11/23 Rx aerosol inhaler shortness of breath or wheezing #8.5 grams budesonide-formoterol HFA 80 2 puff inhalation BID #3 Inhalers 09/30/22 10/11/23 Rx mcg-4.5 mcg/actuation aerosol inhaler (Symbicort) apixaban 5 mg tablet (Eliquis) 5 mg PO BID #180 tabs 01/15/23 10/11/23 Rx acetaminophen 650 mg 1,300 mg PO BID 01/20/23 10/11/23 History tablet,extended release (Tylenol Arthritis Pain) Hospital Bed Homecare (Hospital [facility]1 ea 03/03/23 10/09/23 Rx Bed) calcitriol 0.5 mcg capsule 0.5 mcg PO BID 03/23/23 10/11/23 History atorvastatin 40 mg tablet 40 mg PO HS #90 tabs 04/15/23 10/11/23 Rx dulaglutide 1.5 mg/0.5 mL 1.5 mg subcut WK 04/15/23 10/11/23 History subcutaneous pen injector (Trulicity) duloxetine 60 mg capsule,delayed 60 mg PO QAM #90 caps 04/24/23 10/11/23 Rx release (Cymbalta) prednisone 5 mg tablet 5 mg PO QAM #90 tabs 04/24/23 10/11/23 Rx bumetanide 1 mg tablet 1 mg PO BID #180 tabs 05/03/23 10/11/23 Rx levalbuterol HCl 0.63 mg/3 mL 0.63 mg (3 mL) inhalation Q4H PRN 05/19/23 10/11/23 Rx solution for nebulization Cough #90 mL carvedilol 25 mg tablet 25 mg PO BID #180 tabs 06/22/23 10/11/23 Rx mirtazapine 7.5 mg tablet 7.5 mg PO HS 07/01/23 10/11/23 History blood sugar diagnostic (Accu-Chek #100 ea 07/16/23 10/09/23 Rx Garima Plus test strips) cholestyramine (with sugar) 4 gram 4 ea PO DIRECTED PRN Diarrhea 07/22/23 10/11/23 Rx oral powder #378 grams acyclovir 400 mg tablet 400 mg PO QAM 08/24/23 10/11/23 History insulin aspart U-100 100 unit/mL 6 unit (0.06 mL) subcut TID #15 mL 08/24/23 10/11/23 Rx (3 mL) subcutaneous pen (Novolog FlexPen U-100 Insulin aspart) lenalidomide 10 mg capsule 10 mg PO QAM 08/24/23 10/11/23 History (Revlimid) blood-glucose sensor (FreeStyle #2 ea 08/25/23 10/09/23 Rx Rafa 3 Sensor device) pen needle, diabetic 32 gauge x #200 ea 09/09/23 10/09/23 Rx 5/32" (BD Jaimee 2nd Gen Pen Needle) ferrous sulfate 325 mg (65 mg 325 mg PO QAM 09/15/23 10/11/23 History iron) tablet insulin glargine 100 unit/mL (3 20 unit subcut QPM 09/15/23 10/11/23 History mL) subcutaneous pen (Lantus Solostar U-100 Insulin) lansoprazole 30 mg capsule,delayed 30 mg PO QAM 09/15/23 10/11/23 History release levothyroxine 137 mcg tablet 137 mcg PO QAM 09/15/23 10/11/23 History montelukast 10 mg tablet 10 mg PO QAM 09/15/23 10/11/23 History (Singulair) potassium chloride 20 mEq 20 meq PO BID 09/15/23 10/11/23 History tablet,extended release(part/cryst) (Klor-Con M) azelastine 137 mcg (0.1 %) nasal 2 spray intranasal DAILY PRN 09/30/23 10/11/23 Rx spray aerosol ALLERGIES #30 mL digoxin 125 mcg (0.125 mg) tablet 125 mcg PO DAILY Atrial 10/07/23 10/11/23 Rx fibrillation #30 tabs amiodarone 200 mg tablet 200 mg PO BID 10/11/23 10/11/23 History calcium carbonate 600 mg-vitamin 1 tab PO BID 10/11/23 10/11/23 History D3 10 mcg (400 unit) tablet ciprofloxacin HCl 0.3 % eye drops See Rx Instructions .Route .COMPLEX 10/11/23 10/11/23 History Patient History Medical History Atrial flutter Paroxysmal atrial fibrillation follows with Dr. Mitchell on eliquis bid Hx of colonic polyps Hx of congestive heart failure Hx of tachycardia-bradycardia syndrome s/p ICD Hx of ventricular tachycardia Hx of pulmonary edema Hx of pleural effusion required thoracentesis x 3 Hx of esophageal spasm Hx of non-ST elevation myocardial infarction (NSTEMI) (~01/2023) post pacer placement, then went back for pacer/defib placement Cardiomyopathy Active asthma inhaler daily/prn, nebulizer prn Chronic dyspnea On anticoagulant therapy eliquis bid Chronic steroid use FOR PSORITRIC ARTHRITIS Esophageal dysmotility Hyperlipidemia Hearing loss, right DEAF RIGHT EAR Hiatal hernia FCI current use of 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 [place] (~06/2020[place] [facility] [place] of total left hip arthroplasty (~12/2019) History of total hip arthroplasty (~2019) x2 RIGHT 05/27/19. Complicated by post-op seroma requiring multiple needle aspirations. LEFT HIP 01/10/20 History of dilatation and curettage History of tooth extraction History of tonsillectomy and adenoidectomy History of cardiac cath X2; firts cath ~2008 (NO STENTS),symptoms of heartburn, [facility] second cath at [facility] 02/14 after epidsode of V-Tach, no stents, sees Dr. Granados History of arthroscopy RT/LEFT KNEE Status post total replacement of left shoulder History of esophagogastroduodenoscopy (EGD) History of total abdominal hysterectomy and bilateral salpingo-oophorectomy History of arthroscopy of right shoulder (~09/2018) History of total knee arthroplasty RIGHT History of foot surgery RT FOOT FUSION History of cholecystectomy History of lumbar fusion H/O thyroidectomy Family History Mother Arthritis Hypertension Father Lung cancer Hypertension Family/Other Family hx of colon cancer 1st cousin Unknown Allergies Breast cancer Hypertension Brother Cancer Heart disease Aunt Colorectal cancer Other No family history of adverse response to anesthesia No family history of bleeding disorder Denies family history of Ovarian cancer Prostate cancer Diabetes Hearing loss Myocardial infarction Stroke Asthma Social History Smoking Status: Former smoker Tobacco Type: Cigarettes Age Quit Using Tobacco: 26; Cigarettes Per Day: 1/2 PPD; Second Hand Exposure: No; Do You Dip or Chew Tobacco: No; Hx Alcohol Use: No Hx Substance Use: No Preferred Language: Chinese Communication Ability: Effective Communication Ability Comment: DEAF RIGHT EAR Visual Impairment: No Limitations Hearing Ability: Chicken Raiser Required: No Beliefs That Will Affect Care: None marital status: / Current Living Situation: Alone Current Living Situation Comment: [place] current occupational status: retired current occupation: Retired How many Children do You have: 0 Feels Safe at Home: Yes Safety Concerns: Feels Safe At This Time Childhood Exposure to Second-Hand Smoke: Yes caffeine: Yes Dental Care, Regularly: Yes Physical Activity Frequency: Does not Exercise Physical Activity Frequency Comment: Hip problems Seatbelt Use: always Sunscreen Use: No Assistive Devices: Denture - Upper, Denture - Lower and Glasses Review of Systems Review of Systems: REVIEW OF SYSTEMS: Constitutional: No fever, sweats or chills Eyes: No diplopia, no worsening or blurred vision ENT: normal hearing, no trouble swallowing Respiratory: (+) , dyspnea at rest or on exertion No cough, sputum Cardiovascular: (+) weight gain, edema, dyspnea, No chest pain, tightness or palpitations Abdomen: (+) nausea, vomiting, diarrhea, No pain, , diarrhea or constipation Musculoskeletal: (+) chronic joint pain, calf pain, swelling Neurologic: No weakness, numbness/tingling, or balance problems Psychiatric: No anxiety or depression Skin: (+) erythema to left lower ext. Physical Exam Physical Exam: PHYSICAL EXAM: General: Encephalopathic Head: Normocephalic, atraumatic ENT: PERRLA EOMI, no pharyngeal exudate, mucous membranes moist Neuro: AAO x 3, speech clear and appropriate, strength intact bilaterally 5/5, sensation intact and equal all extremities and dermatomes, no pronator drift Chest: equal rise and fall of the chest, no accessory muscle use, decreased in bases auscultation, on room air, Cardiac: Regular rate and rhythm, telemetry reviewed- AV paced- , skin warm dry, cap refill <3 seconds, peripheral pusles +2 no JVD, no murmur, + 2 edema to bilateral lower extremities to mid calf GI: NABS x 4 quadrants, soft, nontender to palpation, no rebound, guarding or tenderness : Jim placed to gravity Extremities: Normal inspection, no peripheral edema or erythema, calfs nontender to palpation Skin: erythema of left ankle and foot extending to mid calf, pain with palpation, no bullae, no air noted on xray imaging. Results & Data Results & Data Vital Signs (Past 12 Hours) Vital Signs Temp Pulse Pulse Resp BP BP Pulse Ox 10/11/23 19:30 70 21 93 10/11/23 19:30 85/47 L 10/11/23 19:28 84/46 L 10/11/23 19:28 71 96 10/11/23 19:24 81 93 10/11/23 19:24 85/51 L 10/11/23 19:20 78 33 H 94 10/11/23 19:15 71 37 H 94 10/11/23 19:15 87/52 L 10/11/23 19:10 70 36 H 10/11/23 19:06 72 21 94 10/11/23 19:06 84/59 L 10/11/23 19:00 70 26 H 98 10/11/23 19:00 72/38 L 10/11/23 18:50 70 20 96 10/11/23 18:40 69 18 96 10/11/23 18:30 70 22 94 10/11/23 18:20 70 21 93 10/11/23 18:10 70 20 10/11/23 18:09 70 20 98 10/11/23 18:09 97/58 L 10/11/23 18:00 19 98 10/11/23 17:50 70 21 97 10/11/23 17:40 73 16 10/11/23 17:30 70 25 H 96 10/11/23 17:20 71 23 98 10/11/23 17:10 73 18 92 10/11/23 17:00 95/52 L 10/11/23 17:00 70 23 95 10/11/23 17:00 70 22 95/52 L 95 10/11/23 16:50 70 23 95 10/11/23 16:40 70 21 96 10/11/23 16:30 70 21 97 10/11/23 16:27 100/57 L 10/11/23 16:27 72 20 95 10/11/23 16:20 70 22 95 10/11/23 16:10 70 24 95 10/11/23 16:00 70 22 95 10/11/23 16:00 97/54 L 10/11/23 15:50 70 19 96 10/11/23 15:40 71 28 H 97 10/11/23 15:35 101/54 L 10/11/23 15:35 71 19 96 10/11/23 15:35 70 20 101/54 L 96 10/11/23 15:30 70 16 94 10/11/23 15:20 75 24 95 10/11/23 15:10 71 21 95 10/11/23 15:00 70 20 95 10/11/23 15:00 109/63 10/11/23 14:50 70 22 95 10/11/23 14:40 71 21 96 10/11/23 14:40 130/64 10/11/23 13:29 70 10/11/23 13:22 10/11/23 12:39 18 10/11/23 12:39 36.6 C 78 18 105/69 98 O2 Del Method 10/11/23 19:30 10/11/23 19:30 10/11/23 19:28 10/11/23 19:28 10/11/23 19:24 10/11/23 19:24 10/11/23 19:20 10/11/23 19:15 10/11/23 19:15 10/11/23 19:10 10/11/23 19:06 10/11/23 19:06 10/11/23 19:00 10/11/23 19:00 10/11/23 18:50 10/11/23 18:40 10/11/23 18:30 10/11/23 18:20 10/11/23 18:10 10/11/23 18:09 10/11/23 18:09 10/11/23 18:00 10/11/23 17:50 10/11/23 17:40 10/11/23 17:30 10/11/23 17:20 10/11/23 17:10 10/11/23 17:00 10/11/23 17:00 10/11/23 17:00 10/11/23 16:50 10/11/23 16:40 10/11/23 16:30 10/11/23 16:27 10/11/23 16:27 10/11/23 16:20 10/11/23 16:10 10/11/23 16:00 10/11/23 16:00 10/11/23 15:50 10/11/23 15:40 10/11/23 15:35 10/11/23 15:35 10/11/23 15:35 10/11/23 15:30 10/11/23 15:20 10/11/23 15:10 10/11/23 15:00 10/11/23 15:00 10/11/23 14:50 10/11/23 14:40 10/11/23 14:40 10/11/23 13:29 10/11/23 13:22 Room Air 10/11/23 12:39 10/11/23 12:39 Laboratory Results Abnormal lab results 10/11/23 10/11/23 10/11/23 Range/Units 13:25 15:13 18:38 WBC 4.21 L (4.8-10.8) K/ul RBC 3.29 L (4.20-5.40) M/uL Hgb 11.0 L (12.0-16.0) g/dl Hct 34.5 L (37.0-47.0) % MCV 104.9 H (80.0-100.0) fL MCHC 31.9 L (32.0-36.0) g/dL RDW Std Deviation 72.6 H (36.4-46.3) fL RDW Coeff of Amrita 18.7 H (11.5-14.5) % Lymphocytes # (Manual) 0.63 L (1.2-3.4) K/uL Total Abs Lymphocytes 0.63 L (1.2-3.4) K/uL Monocytes # (Manual) 0.04 L (0.11-0.59) K/uL Metamyelocytes # (Man) 0.38 H (0-0) K/uL PT 13.0 H (9.0-12.0) Seconds INR 1.2 H (0.9-1.1) Anion Gap 12 H (3-11) BUN 39 H (6-23) mg/dl Creatinine 2.98 H (0.6-1.2) mg/dl Glucose 150 H (70-99(Fasting)) mg/dl POC Glucose (70-99) mg/dl Lactate 4.0 H* 3.9 H* 4.4 H* (0.4-2.0) mmol/L Calcium 7.4 L (8.6-10.3) mg/dl Total Bilirubin 1.6 H (0.2-1.0) mg/dl AST 160 H (13-39) U/L ALT 203 H (7-52) U/L C-Reactive Protein 12.15 H (0-0.5) mg/dl B-Natriuretic Peptide 525 H (0-100) pg/ml Total Protein 5.4 L (6.0-8.3) gm/dl Globulin 2.0 L (2.5-4.0) gm/dl Procalcitonin 4.80 H (0-0.5) ng/ml 10/11/23 Range/Units 19:29 WBC (4.8-10.8) K/ul RBC (4.20-5.40) M/uL Hgb (12.0-16.0) g/dl Hct (37.0-47.0) % MCV (80.0-100.0) fL MCHC (32.0-36.0) g/dL RDW Std Deviation (36.4-46.3) fL RDW Coeff of Amrita (11.5-14.5) % Lymphocytes # (Manual) (1.2-3.4) K/uL Total Abs Lymphocytes (1.2-3.4) K/uL Monocytes # (Manual) (0.11-0.59) K/uL Metamyelocytes # (Man) (0-0) K/uL PT (9.0-12.0) Seconds INR (0.9-1.1) Anion Gap (3-11) BUN (6-23) mg/dl Creatinine (0.6-1.2) mg/dl Glucose (70-99(Fasting)) mg/dl POC Glucose 184 H (70-99) mg/dl Lactate (0.4-2.0) mmol/L Calcium (8.6-10.3) mg/dl Total Bilirubin (0.2-1.0) mg/dl AST (13-39) U/L ALT (7-52) U/L C-Reactive Protein (0-0.5) mg/dl B-Natriuretic Peptide (0-100) pg/ml Total Protein (6.0-8.3) gm/dl Globulin (2.5-4.0) gm/dl Procalcitonin (0-0.5) ng/ml Diagnostic Findings Ankle X-Ray 10/11/23 12:56 XR ankle LT min 3V routine, XR foot LT min 3V routine HISTORY: 78 years-old Female swelling, pain, stepped off curb acute left lower extremity pain status post fall COMPARISON: None TECHNIQUE: 3 views of the left foot with 3 views of the left ankle FINDINGS: ANKLE: Moderate circumferential soft tissue swelling. Mild osteoarthritis. No acute fracture, dislocation or osteochondral defect. FOOT: Moderate diffuse soft tissue swelling. Large plantar calcaneal osteophyte. Mild to moderate osteoarthritis. IMPRESSION: Soft tissue swelling without acute fracture or dislocation identified. ACT 112: Negative or not required by law. The above report was generated using voice recognition software. It may contain grammatical, syntax or spelling errors. Electronically signed by: Haseeb Steiner M.D. 10/11/2023 1:18 PM Foot X-Ray 10/11/23 12:56 XR ankle LT min 3V routine, XR foot LT min 3V routine HISTORY: 78 years-old Female swelling, pain, stepped off curb acute left lower extremity pain status post fall COMPARISON: None TECHNIQUE: 3 views of the left foot with 3 views of the left ankle FINDINGS: ANKLE: Moderate circumferential soft tissue swelling. Mild osteoarthritis. No acute f racture, dislocation or osteochondral defect. FOOT: Moderate diffuse soft tissue swelling. Large plantar calcaneal osteophyte. Mild to moderate osteoarthritis. IMPRESSION: Soft tissue swelling without acute fracture or dislocation identified. ACT 112: Negative or not required by law. The above report was generated using voice recognition software. It may contain grammatical, syntax or spelling errors. Electronically signed by: Haseeb Steiner M.D. 10/11/2023 1:18 PM Venous Doppler Study 10/11/23 12:56 LEFT LOWER EXTREMITY VENOUS DOPPLER HISTORY: Acute pain and swelling of the left lower leg swelling, redness, pain COMPARISON STUDY: 07/01/2023. FINDINGS: There is normal compressibility, flow, and augmentation within the left lower extremity deep venous system. Subcutaneous edema. IMPRESSION: No DVT within the left lower extremity. ACT 112: Negative or not required by law. Electronically signed by: Haseeb Steiner M.D. 10/11/2023 2:17 PM Chest X-Ray 10/11/23 13:04 XR chest 1V portable HISTORY: 78 years-old Female edema, h/o chf acute shortness of breath COMPARISON: 08/26/2023 TECHNIQUE: AP view of the chest FINDINGS: Cardiac silhouette is enlarged. Left subclavian pacer/AICD.. Pulmonary vascular congestion. No pneumothorax. Small pleural effusions with mild bibasilar den sities. Left shoulder arthroplasty. 10 mm nodular density projects over the right upper lung. IMPRESSION: 1. Cardiomegaly with pulmonary vascular congestion. 2. Small pleural effusions with mild bibasilar atelectasis. 3. 10 mm nodule versus artifact projects over the right upper lung. ACT 112: Negative or not required by law. The above report was generated using voice recognition software. It may contain grammatical, syntax or spelling errors. Electronically signed by: Haseeb Steiner M.D. 10/11/2023 1:51 PM Medications Administered Daptomycin 350 mg/ Syringe 7 mls @ 3.5 mls/min IV Q48H CAROL; Protocol Stop: 10/18/23 17:59 Last Admin: 10/11/23 17:58 Dose: 3.5 mls/min Documented By: ASIM Phenylephrine HCl (Phenylephrine/Nss) 25 mg in 250 mls @ 32.67 mls/hr IV .Q7H40M CAROL; Protocol Stop: 11/10/23 19:14 Last Admin: 10/11/23 19:26 Dose: 0.5 mcg/kg/min, 32.7 mls/hr Documented By: KEH Co-signed By: JACK Discontinued Medications Albuterol (Albut/Ipratrop 3mg/0.5mg Neb 3 Ml Vial) 3 ml NEB NOW STA; Protocol Stop: 10/11/23 17:19 Last Admin: 10/11/23 17:56 Dose: 3 ml Documented By: ASIM Hydrocortisone Sodium Succinate (Hydrocortisone Sod Succinate 100 Mg/2 Ml Vial) 100 mg IV NOW STA Stop: 10/11/23 18:26 Last Admin: 10/11/23 18:44 Dose: 100 mg Documented By: ASIM Sodium Chloride (Nss) 500 mls @ 999 mls/hr IV .Q31M ONE Stop: 10/11/23 17:22 Last Infusion: 10/11/23 17:53 Dose: Infused Documented By: Admin: 10/11/23 17:04 Dose: 999 mls/hr Documented By: ASIM Ceftriaxone Sodium (Rocephin) 2,000 mg in 50 mls @ 100 mls/hr IV NOW STA Stop: 10/11/23 17:27 Last Admin: 10/11/23 17:49 Dose: Not Given Documented By: ASIM Bumetanide 1 mg/ Syringe 4 mls @ 4 mls/min IV ONE ONE Stop: 10/11/23 17:46 Last Admin: 10/11/23 17:59 Dose: 4 mls/min Documented By: ASIM Piperacillin Sod/Tazobactam Sod (Zosyn) 4.5 gm in 100 mls @ 200 mls/hr IV ONE ONE Stop: 10/11/23 18:04 Last Infusion: 10/11/23 18:44 Dose: Infused Documented By: Admin: 10/11/23 17:59 Dose: 200 mls/hr Documented By: ASIM Famotidine (Pepcid 20mg Iv Push) 20 mg in 5 mls @ 2.5 mls/min IV NOW STA Stop: 10/11/23 19:23 Last Admin: 10/11/23 19:29 Dose: 2.5 mls/min Documented By: ASIM Morphine Sulfate (Morphine Sulfate 4 Mg/Ml 1 Ml Carp\\Vial) 4 mg IV NOW STA Stop: 10/11/23 12:57 Last Admin: 10/11/23 13:24 Dose: 4 mg Documented By: JACK Morphine Sulfate (Morphine Sulfate 4 Mg/Ml 1 Ml Carp\\Vial) 4 mg IV NOW STA Stop: 10/11/23 15:40 Last Admin: 10/11/23 15:42 Dose: 4 mg Documented By: ASIM Ondansetron HCl (Ondansetron Inj 2 Mg/Ml 2 Ml Vial) 4 mg IV NOW STA Stop: 10/11/23 19:23 Last Admin: 10/11/23 19:27 Dose: Not Given Documented By: ASIM Ondansetron HCl (Ondansetron Inj 2 Mg/Ml 2 Ml Vial) Confirm Administered Dose 4 mg .ROUTE .STK-MED ONE Stop: 10/11/23 19:23 Last Admin: 10/11/23 19:26 Dose: 4 mg Documented By: ASIM ECG Additional Comments: Vent. Rate : 071 BPM Atrial Rate : 071 BPM P-R Int : 122 ms QRS Dur : 108 ms QT Int : 370 ms P-R-T Axes : 059 -17 163 degrees QTc Int : 402 ms AV dual-paced rhythm Abnormal ECG When compared with ECG of 07-OCT-2023 13:04, Vent. rate has decreased BY 15 BPM Confirmed by Harvey Alaniz ([id number]) on 10/11/2023 2:17:54 PM Referred By: Confirmed By:Harvey Alaniz Coding Level of Care Code 03795 CRITICAL CARE 1ST 30-74M Diagnoses Septic shock A41.9; R65.21 Cellulitis L03.90 ICD (implantable cardioverter-defibrillator), biventricular, in situ Z95.810 Nonischemic cardiomyopathy I42.8 Hyperlipidemia associated with type 2 diabetes mellitus E11.69; E78.5 Primary hypertension I10 Hypertension type: primary hypertension CKD (chronic kidney disease) stage 4, GFR 15-29 ml/min N18.4 Gastroesophageal reflux disease, esophagitis presence not specified K21.9 Esophagitis presence: esophagitis presence not specified Type 2 diabetes mellitus with stage 4 chronic kidney disease, without long-term current use of insulin E11.22; N18.4 Chronic kidney disease stage: stage 4 (severe) 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 complication detail: with chronic kidney disease 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 complication status: with kidney complications 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 supervisor intermediates insulin use: without assisted use Time Spent (min) 50 (6) Hypertension Hypertension type: primary hypertension Qualified Code(s): I10 - Essential (p rimary) hypertension (8) GERD (gastroesophageal reflux disease) Esophagitis presence: esophagitis presence not specified Qualified Code(s): K21.9 - Gastro-esophageal reflux disease without esophagitis (9) Type II diabetes mellitus Chronic kidney disease stage: stage 4 (severe) 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 complication detail: with chronic kidney disease 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 complication status: with kidney complications 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 supervisor intermediates insulin use: without supervisor intermediates use Qualified Code(s): E11.22 - Type 2 diabetes mellitus with diabetic chronic kidney disease; N18.4 - Chronic kidney disease, stage 4 (severe)
[2023-10-11] MEDS: PLASMA-LYTE A 250 ML IV ONE (20:20)
[2023-10-11] MEDS ORDERED: PHARMACY GLYCEMIC MGMT CONSULT PRN (20:27)
[2023-10-11] MEDS ORDERED: ONDANSETRON INJ 2 MG/ML 2 ML VIAL IV PRN (20:27)
[2023-10-11] MEDS: PANTOprazole 40 MG in SYRINGE 0 ML IV STA (20:33)
[2023-10-11] MEDS: PLASMA-LYTE A 500 ML IV ONE ×2 (21:15→22:30)
--- NOTE | 2023-10-11 21:28 | Procedure Note ---
Procedure Note Date of Service October 11, 2023 Note ARTERIAL LINE PROCEDURE NOTE: Procedure: Arterial Line Placement Proceduralist: [place] RUFF ([facility]) Attending: Dr. Marinelli Indication: Monitoring on Pressors Anesthesia: [x]Lidocaine 1% Vrebal Consent was obtained from the patient as delegated to me by Dr. Marinelli. Indication, risks, and benefits were explained to include but not limited to- infection, pain, thrombosis, damage to artery or surrounding tissue/structures, need for further procedures. A time-out was completed verifying correct patient, procedure, site, positioning, and implant(s) or special equipment if applicable. Allens test was performed to ensure adequate perfusion. Patients RIGHT wrist was prepped and draped in the usual sterile fashion. Ultrasound guidance was used to aid needle placement. A 20g Arrow arterial line was introduced into the RIGHT RADIAL artery, brisk blood flow was noted, the wire was advanced wihtout resistance. The Catheter was threaded, and the needle was removed with appropriate blood return. Pressure tubing was attached and good arterial waveform was observed. The patient tolerated the procedure well. The line was then sutured in place and covered with sterile dressing. No immediate complications noted. Blood Loss: Minimal Complications: None Artery Identified: YES Complications: NONE immediate Patient tolerated procedure: WELL Coding CPT Codes Tubes, Drains, and Vasc Access - Tubes, Drains, and Vasc Access: [id number] Arterial Cath/Cannulation Sampling/Monitoring/Transfusion ([id number][place] [facility] [place]arges) Tubes, Drains, and Vasc Access Procedure 1: Tubes, Drains, and Vasc Access: [id number] Arterial Cath/Cannulation Sampl ing/Monitoring/Transfusion
--- NOTE | 2023-10-11 21:29 | Procedure Note ---
Procedure Note Date of Service October 11, 2023 Note INTERNAL JUGULAR CENTRAL LINE PROCEDURE NOTE: Procedure: Internal Jugular Central Line Placement Proceduralist: [place] RUFF ([facility]) Attending: Dr. Marinelli Indication: Central Drug Administration, Poor Venous Access, Multiple Lab Draws Necessary, etc. Anesthesia: [x]Lidocaine 1% Verbal Consent from patient was obtained as delegated to me by Dr. Marinelli. Indication, risks, and benefits were explained at length to include but not limited to: Pain, infection, malposition, bleeding, damage to surrounding tissues and structures, pneumothorax, need for further procedures. A time-out was completed verifying correct patient, procedure, site, positioning. Patient's right neck was scouted prior to procedure to identify adequate target vessel. Once identified, the Patients RIGHT Neck was cleansed and draped in the typical sterile fashion using Chloraprep. The Internal Jugular Vein and Carotid Artery were again identified using ultrasound. The superficial tissue was anesthetized using 4 mL of 1% lidocaine without epinephrine under direct visualization with the ultrasound. After adequate anesthetization was achieved, the Internal Jugular vein was cannulated under direct ultrasound guidance using an introducer needle on a syringe. Good venous blood return was maintained prior to removal of syringe from introducer needle. Using Seldinger Technique, a guide wire was advanced through the introducer needle without resistance. The introducer needle was removed and ultrasound images were obtained of the guide wire within the Internal Jugular Vein and saved to the patients medical record. A small incision was made in penetrating fashion at the guide wire insertion site utilizing an 11 blade scalpel. The dilator was advanced to the vessel without resistance. The dilator was exchanged for the triple lumen catheter which was advanced into the vessel without resistance. The guide wire was removed intact from the catheter without issue. Claves were placed on each catheter tip with confirmation of good blood flow from each lumen. Each port was easily flushed with sterile saline. The catheter was placed at 17 cm and sutured in place. BioPatch was applied to the catheter and a sterile Tegaderm dressing was applied over the catheter with careful attention to sterility. Patient tolerated procedure well. No immediate complications were met. Post procedure x-ray was completed, placement was appropriate and no pneumothorax was noted. Images obtained are NOT saved for permanent record Artery AND Vein visualized: YES Compressible Vein: YES Guidewire or Short Catheter seen in vein prior to dilation: YES Coding CPT Codes Tubes, Drains, and Vasc Access - Tubes, Drains, and Vasc Access: [id number] Insertion Of Non-tunneled Catheter Age 6 Yrs> ([id number]) [facility] – [place] Procedure Codes (Charges) Tubes, Drains, and Vasc Access Procedure 1: Tubes, Drains, and Vasc Access: [id number] Insertion Of Non-tunneled Catheter Age 6 Yrs>
[2023-10-11] MEDS ORDERED: CARBOHYDRATES FOR HYPOGLYCEMIA PO PRN (21:30)
[2023-10-11] MEDS ORDERED: GLUCOSE 10 TAB/TUBE PO PRN (21:30)
[2023-10-11] MEDS ORDERED: GLUCOSE 40% GEL 15 GM TUBE PO PRN (21:30)
[2023-10-11] MEDS ORDERED: DEXTROSE 50% 50 ML SYRINGE IV PRN (21:30)
[2023-10-11] MEDS ORDERED: GLUCAGON FOR INJ 1 MG VIAL IM PRN (21:30)
[2023-10-11] MEDS: VASOPRESSIN 20 UNITS in 0.9 % SODIUM CHLORIDE 100 ML IV SCH (21:41)
[2023-10-11 22:50] LABS: iSTAT Art Bld Gas pCO2 Correct 44 mmHg (35-46); iSTAT Art Bld Gas pH Corrected 7.342 (7.35-7.45); iSTAT Arterial Blood Gas HCO3 24 meg/L (19-24); iSTAT Arterial Blood Gas pCO2 44 mmHg (35-46); iSTAT Arterial Blood Gas pH 7.34 (7.35-7.45); iSTAT Arterial Blood Gas pO2 < 32 mmHg (80-95); iSTAT Arterial Blood Gas pO2 C 21; iSTAT Carbon Dioxide 25 mmol/L (24-31); iSTAT Hematocrit 29 % (37-47); iSTAT Hemoglobin 9.9 g/dl (12.0-16.0); iSTAT Potassium 5.2 mmol/L (3.3-5.0); iSTAT Site Art Line; iSTAT Sodium 136 mmol/L (135-144)
[2023-10-11] MEDS: PIPERACILLIN/TAZOBACTAM 4.5 GM in DEXTROSE 5% MINI-B 100 ML IV SCH (22:52)
[2023-10-11] MEDS ORDERED: LEVALBUTEROL HCL 0.63 MG/3 ML NEB INH PRN (22:56)
[2023-10-11] MEDS: PLASMA-LYTE A 1,000 ML IV SCH (23:08)
[2023-10-11] MEDS: DAPTOmycin 175 MG in SYRINGE 0 ML IV ONE (23:18)
[2023-10-11] MEDS: PHENYLEPHRINE/NSS 100 MG/250 ML BAG IV SCH (23:30)
[2023-10-11] MEDS: Concentrate Phenylephrine IV Infusion ONE (23:32)
[2023-10-11] MEDS: CALCIUM CHLORIDE 10% 1,000 MG in DEXTROSE 5% 50 ML IV STA (23:57)
[2023-10-12] MEDS ORDERED: HYDROCORTISONE SOD SUCCINATE 100 MG/2 ML VIAL IV SCH
[2023-10-12 00:02] LABS: Magnesium 1.9 mg/dl (1.7-2.4); Phosphorus 4.4 mg/dl (2.5-4.9)
[2023-10-12] MEDS: HYDROCORTISONE SOD 50 MG in SYRINGE 0 ML IV SCH (00:08)
[2023-10-12 00:27] LABS: Thyroid Stimulating Hormone 3.533 uIu/ml (0.300-4.500)
[2023-10-12 00:36] LABS: Appearance Urine Cloudy (Clear); Bacteria Urine Automated None Seen (None Seen); Bilirubin Urine Negative (Negative); Blood Urine Negative (Negative); Color Urine Yellow; Glucose Urine UA Negative (Negative); Ketones Urine Trace (Negative); Leukocyte Esterase Urine Negative (Negative); Nitrite Urine Negative (Negative); Protein Urine 1+ (Negative); RBC Urine Automated 0-2 /hpf (0-2); Specific Gravity Urine 1.021 (1.000-1.030); Urobilinogen Urine Negative (Negative); WBC Urine Automated 0-5 /hpf (0-5)
[2023-10-12 00:52] LABS: Creatinine Urine Random 88.9 mg/dl; Protein Creatinine Ratio Urine 0.7 (0-0.2)
[2023-10-12] MEDS: ACETAMINOPHEN 325 MG TAB PO PRN (02:57)
[2023-10-12 05:36] LABS: Hematocrit (blood only) 31.1 % (37.0-47.0); Hemoglobin 10.1 g/dl (12.0-16.0); Mean Corpuscular Hemoglobin 33.7 pg (25.0-34.0); Mean Corpuscular Hgb Conc 32.5 g/dL (32.0-36.0); Mean Corpuscular Volume 103.7 fL (80.0-100.0); Mean Platelet Volume 10.9 fL (9.4-12.4); Platelet Count 176 K/uL (130-400); RDW Coefficient of Variation 18.8 % (11.5-14.5); RDW Standard Deviation 72.3 fL (36.4-46.3); White Blood Count 8.72 K/ul (4.8-10.8)
[2023-10-12 05:37] LABS: ALC (manual) 0.61 K/uL (1.2-3.4); ANC (manual) 6.54 K/uL (1.4-6.5); Lymphocytes # (manual) 0.61 K/uL (1.2-3.4); Lymphocytes % (manual) 7 %; Metamyelocytes % (manual) 16 %; Monocytes # (manual) 0.17 K/uL (0.11-0.59); Monocytes % (manual) 2 %; Neutrophils # (manual) 6.54 K/uL (1.40-6.50); Neutrophils % (manual) 75 %; RBC Morphology Unremarkable
[2023-10-12 05:40] LABS: Albumin Globulin Ratio 1.5 (0.9-2); Albumin Level 2.9 gm/dl (3.4-5.0); BUN Creatinine Ratio 12.3 (10-20); Bilirubin,Total 2.6 mg/dl (0.2-1.0); Est GFR (African American) 11.8 ml/min; Est GFR (Non-African American) 10.2 ml/min; Globulin 1.9 gm/dl (2.5-4.0); Magnesium 2.1 mg/dl (1.7-2.4); Phosphorus 5.8 mg/dl (2.5-4.9); Potassium 5.9 mmol/L (3.5-5.1); Total Protein 4.8 gm/dl (6.0-8.3)
[2023-10-12] MEDS: LEVOTHYROXINE SODIUM 137 MCG TABLET PO SCH (06:07)
[2023-10-12 06:44] LABS: Dohle Bodies 2+
--- NOTE | 2023-10-12 07:20 | XRay Report ---
KUB CLINICAL HISTORY: Abdominal pain. COMPARISON STUDY: CT of the abdomen and pelvis May 05, 2020. FINDINGS: Bilateral hip arthroplasties, lumbosacral decompression and fusion and pacer/AICD leads are incidentally noted. Bowel gas pattern is normal. There is a moderate amount of stool within the colo n and rectum. Heterotopic ossification adjacent to the femoral components of the hip arthroplasties i s incidentally noted. IMPRESSION: 1. No evidence for a bowel obstruction. 2. Moderate amount of stool within the colon and rectum. ACT 112: Negative or not required by law. Electronically signed by: Alfred Avendaño M.D. 10/12/2023 7:18 AM
--- NOTE | 2023-10-12 07:23 | XRay Report ---
XR chest 1V portable CLINICAL HISTORY: eval central line placement, r/o pthx COMPARISON STUDY: Chest radiograph October 11, 2023 at 1:39 PM. FINDINGS: There is no pneumothorax following placement of a right internal jugular central venous cat heter. Tip projects over the distal SVC. Left shoulder arthroplasty and left subclavian pacer/AICD re main in place. There are small bilateral pleural effusions. Cardiomegaly with pulmonary vascular joleen estion is again noted. There are mild bibasilar opacities. IMPRESSION: 1. No pneumothorax following placement of a right internal jugular central line. 2. Small bilateral pleural effusions with bibasilar opacities. 3. Cardiomegaly with pulmonary vascular congestion. ACT 112: Negative or not required by law. Electronically signed by: Alfred Avendaño M.D. 10/12/2023 7:22 AM
[2023-10-12] MEDS ORDERED: STAT IV Infusion **Titration per Protocol STA (07:24)
[2023-10-12] MEDS ORDERED: ICU Protocol for HYPERglycemia SCH (07:30)
[2023-10-12] MEDS: NOREPINEPHRINE/D5W 4 MG/250 ML PLCT IV SCH (07:34)
[2023-10-12] MEDS: NOREPINEPHRINE/D5W 4 MG/250 ML IV ONE (07:37)
[2023-10-12] MEDS: SODIUM BICARB 8.4% INJ 50 MEQ/50 ML SYR IV STA (08:01)
[2023-10-12] MEDS: INSULIN ASPART PER UNIT CHARGE SC SCH (08:07)
[2023-10-12] MEDS: CALCIUM CHLORIDE 10% 1,000 MG in DEXTROSE 5% 50 ML IV STA (08:10)
--- NOTE | 2023-10-12 08:42 | Critical Care Progress Note ---
Date of Service October 12, 2023 Assessment & Plan (1) Septic shock: (2) JULIO (acute kidney injury): (3) Lactic acidosis: (4) Hyperkalemia: Plan Reason Critically Ill: 78 YOF presents to the EMD with lower extremity swelling and pain- found to be septic with possible hf component as well. Now requiring vasopressor support. 24-hour events: Patient was admitted to the ICU. During her stay here she has required escalating doses of pressors and is now on high-dose phenylephrine, vasopressin, and norepinephrine with systolic blood pressures of about 100. She has developed dense renal failure with minimal urine output. Recommendations: Neuro -metabolic encephalopathy secondary to severe sepsis with septic shock and hypotension. Resolved with normal blood pressure now. Continue to follow clinically. Cardiac -severe sepsis with septic shock and multiorgan system dysfunction. Echocardiogram shows decrease in ejection fraction down to about 35%. She is already tachycardic so we will withhold dobutamine for now. Holding Eliquis. GI -transaminitis, likely secondary to shock liver although pressors may be contributing as well. Keep n.p.o. for now. Continue PPI. Trend LFTs. RENAL/LYTES -acute renal failure with acidosis and hyperkalemia. Discussed on phone briefly with nephrology. Given that the patient is requiring 3 pressors currently, she is not a candidate for renal replacement at our institution and requires CVVH. Again this is not available here. Will transfer the patient urgently to a tertiary facility for consideration of CVVH. Discussed with anesthesia here. They state that with her current electrolyte abnormalities and acid-base abnormalities and pressor requirements they would not be willing to anesthetize the patient for any surgical interventions currently. -keep Issa catheter for intake and output ENDO - glycemic control per protocol. Initiated on stress dose steroids. HEME -multiple myeloma on outpatient medications. Her white blood cell count is likely an unreliable indicator of infection. She is on dexamethasone so is on stress dose steroids. No indication for transfusion currently. ID -severe sepsis with septic shock likely secondary to deep soft tissue infection. Possible pyomyositis versus necrotizing soft tissue infection. CT of the lower extremity was obtained. On my review I do not see overt gas however the muscles appear edematous and deeply inflamed. Would recommend surgical evaluation with deep cultures. Discussed with general surgery here. Again anesthesia is uncomfortable administering general anesthesia to this patient so feel that she would be best served by transfer to a tertiary facility LINES/IV ACCESS -Central line, arterial line, Issa, and peripheral IV DVT PROPHYLAXIS - SCDs, DISPO: Transfer to tertiary facility The given the patient's need for renal replacement therapy, infectious disease consultation, and potential surgical evaluation, I recommended the patient be transferred to a tertiary facility. Discussed with the patient. She is agreeable to proceed. She requested we initially reach out to [facility]. They requested that I see whether or not surgical intervention of the lower extremity could be undertaken prior to transfer. This prompted me discussing the case with our general surgeon and anesthesia as well as nephrology. Again general surgery was uncomfortable proceeding with any intervention in vascular surgery and orthopedics were not immediately available. Again unclear if amputation would be required without overt gas. Would initially proceed with potential evaluation of the deep soft tissues and fascia. As this cannot be performed in a timely fashion and the patient requires urgent stabilization of her acid-base status and electrolytes prior to undergoing any general anesthesia and the fact that nephrology has no capability to treat the patient appropriately at this facility, the patient was then discussed with the shellfish processing machine tender at [facility] who graciously agreed [facility] The patient was updated. At the request of [facility], I placed a dialysis access catheter. Please see separate procedure notes. A total of 140 minutes of critical care time was spent in evaluation management stabilization of this patient exclusive of procedures including in-depth discussions with multiple consultants and tertiary facilities. Admission and Anticipated Discharge Date Admission Date: October 11, 2023 Subjective Patient seen and examined. EMR reviewed. Discussed with critical care NELL overnight as well as with bedside critical care nurse and on multidisciplinary rounds. Patient continues to complain of significant pain in the left lower extremity. She has edema and is now developed some discoloration around the forefoot. She remains hemodynamically quite unstable having added her third pressor and is essentially anuric. Review of Systems Review of Systems: All systems reviewed & are unremarkable except as noted in Subjective Physical Exam Constitutional: + obese, cooperative and + edematous Neck: trachea midline, no thyromegaly Respiratory: normal respiratory effort, lungs clear to auscultation Cardiovascular: RRR, no murmur, no edema Gastrointestinal (Abdomen): normal bowel sounds, soft, nontender, no hepatosplenomegaly Musculoskeletal: 2+ pitting edema to the left lower extre mity up to the knee with discoloration in the forefoot extending up to the ankle. No palpable crepitus although exam is significantly limited due to the patient experiencing severe pain with any manipulation of the lower extremity. She is tender to palpation all the way into the thigh. Skin: no rashes, warm and dry Neurologic: Nonfocal exam Lymphatic: no cervical lymphadenopathy Results & Data Results & Data Vital Signs (Past 12 Hours) Vital Signs Temp Pulse Pulse Resp BP BP BP 10/12/23 07:45 74 18 10/12/23 07:30 83 29 H 10/12/23 07:15 70 18 10/12/23 07:00 70 25 H 92/61 L 10/12/23 06:45 69 28 H 10/12/23 06:15 70 26 H 10/12/23 06:00 36.8 C 95/59 L 10/12/23 06:00 70 25 H 10/12/23 05:45 68 25 H 10/12/23 05:30 72 28 H 10/12/23 05:15 82 25 H 10/12/23 05:00 95/66 L 10/12/23 05:00 74 21 10/12/23 04:45 70 25 H 10/12/23 04:30 70 25 H 10/12/23 04:15 73 26 H 10/12/23 04:01 111/55 L 10/12/23 04:01 71 23 10/12/23 04:00 71 26 H 10/12/23 04:00 70 23 111/55 L 10/12/23 03:45 70 22 10/12/23 03:30 70 22 10/12/23 03:15 70 21 10/12/23 03:05 71 22 10/12/23 03:05 94/60 L 10/12/23 03:00 71 26 H 10/12/23 03:00 37 C 70 23 94/50 L 10/12/23 02:45 74 24 10/12/23 02:30 70 22 10/12/23 02:15 70 22 10/12/23 02:00 36.5 C 70 20 97/62 L 10/12/23 02:00 70 21 10/12/23 02:00 97/62 L 10/12/23 01:45 71 20 10/12/23 01:30 70 21 10/12/23 01:15 69 18 10/12/23 01:02 70 10/12/23 01:00 85/50 L 10/12/23 01:00 78 20 10/12/23 00:45 70 20 10/12/23 00:30 36.5 C 70 20 10/12/23 00:15 70 21 10/12/23 00:00 93/63 L 10/12/23 00:00 70 23 10/11/23 23:45 70 20 10/11/23 23:30 71 21 10/11/23 23:15 71 30 H 10/11/23 23:00 36.7 C 90/56 L 10/11/23 23:00 70 20 10/11/23 22:51 100/57 L 10/11/23 22:51 71 24 10/11/23 22:45 70 20 10/11/23 22:30 69 24 10/11/23 22:15 70 32 H 10/11/23 22:00 70 32 H 10/11/23 22:00 102/64 10/11/23 21:45 70 19 10/11/23 21:30 70 20 10/11/23 21:15 75 24 10/11/23 21:00 70 20 10/11/23 20:45 73 20 83/52 L BP Pulse Ox O2 Del Method 10/12/23 07:45 93 Room Air 10/12/23 07:30 99 Room Air 10/12/23 07:15 96 Room Air 10/12/23 07:00 95 Room Air 10/12/23 06:45 95 Room Air 10/12/23 06:15 96 10/12/23 06:00 10/12/23 06:00 10/12/23 05:45 95 10/12/23 05:30 95 10/12/23 05:15 91 10/12/23 05:00 10/12/23 05:00 10/12/23 04:45 94 10/12/23 04:30 94 10/12/23 04:15 97 10/12/23 04:01 10/12/23 04:01 95 10/12/23 04:00 10/12/23 04:00 95/54 L 95 Room Air 10/12/23 03:45 93 10/12/23 03:30 94 05/20/24 03:15 93 10/12/23 03:05 87 L 10/12/23 03:05 10/12/23 03:00 100 10/12/23 03:00 96/54 L 95 Room Air 10/12/23 02:45 96 10/12/23 02:30 94 10/12/23 02:15 94 10/12/23 02:00 95/52 L 95 Room Air 10/12/23 02:00 10/12/23 02:00 10/12/23 01:45 94 10/12/23 01:30 92 10/12/23 01:15 98 10/12/23 01:02 10/12/23 01:00 10/12/23 01:00 10/12/23 00:45 93 10/12/23 00:30 93 10/12/23 00:15 93 10/12/23 00:00 10/12/23 00:00 10/11/23 23:45 94 10/11/23 23:30 93 10/11/23 23:15 93 10/11/23 23:00 10/11/23 23:00 10/11/23 22:51 10/11/23 22:51 92 10/11/23 22:45 94 10/11/23 22:30 99 10/11/23 22:15 93 10/11/23 22:00 96 10/11/23 22:00 10/11/23 21:45 95 10/11/23 21:30 95 10/11/23 21:15 95 10/11/23 21:00 93 10/11/23 20:45 94 Critical Care Results & Data Vital Signs (Past 12 Hours) Vital Signs Temp Pulse Pulse Resp BP BP BP 10/12/23 08:30 70 26 H 10/12/23 08:15 70 22 10/12/23 08:00 25 H 10/12/23 07:45 74 18 10/12/23 07:30 83 29 H 10/12/23 07:15 70 18 10/12/23 07:00 36.7 C 10/12/23 07:00 70 25 H 92/61 L 10/12/23 06:45 69 28 H 10/12/23 06:15 70 26 H 10/12/23 06:00 36.8 C 95/59 L 10/12/23 06:00 70 25 H 10/12/23 05:45 68 25 H 10/12/23 05:30 72 28 H 10/12/23 05:15 82 25 H 10/12/23 05:00 95/66 L 10/12/23 05:00 74 21 10/12/23 04:45 70 25 H 10/12/23 04:30 70 25 H 10/12/23 04:15 73 26 H 10/12/23 04:01 111/55 L 10/12/23 04:01 71 23 10/12/23 04:00 71 26 H 10/12/23 04:00 70 23 111/55 L 10/12/23 03:45 70 22 10/12/23 03:30 70 22 10/12/23 03:15 70 21 10/12/23 03:05 71 22 10/12/23 03:05 94/60 L 10/12/23 03:00 71 26 H 10/12/23 03:00 37 C 70 23 94/50 L 10/12/23 02:45 74 24 10/12/23 02:30 70 22 10/12/23 02:15 70 22 10/12/23 02:00 36.5 C 70 20 97/62 L 10/12/23 02:00 70 21 10/12/23 02:00 97/62 L 10/12/23 01:45 71 20 10/12/23 01:30 70 21 10/12/23 01:15 69 18 10/12/23 01:02 70 10/12/23 01:00 85/50 L 10/12/23 01:00 78 20 10/12/23 00:45 70 20 10/12/23 00:30 36.5 C 70 20 10/12/23 00:15 70 21 10/12/23 00:00 93/63 L 10/12/23 00:00 70 23 10/11/23 23:45 70 20 10/11/23 23:30 71 21 10/11/23 23:15 71 30 H 10/11/23 23:00 36.7 C 90/56 L 10/11/23 23:00 70 20 10/11/23 22:51 100/57 L 10/11/23 22:51 71 24 10/11/23 22:45 70 20 10/11/23 22:30 69 24 10/11/23 22:15 70 32 H 10/11/23 22:00 70 32 H 10/11/23 22:00 102/64 10/11/23 21:45 70 19 10/11/23 21:30 70 20 10/11/23 21:15 75 24 10/11/23 21:00 70 20 BP Pulse Ox O2 Del Method 10/12/23 08:30 96 Room Air 10/12/23 08:15 97 Room Air 10/12/23 08:00 95 Room Air 10/12/23 07:45 93 Room Air 10/12/23 07:30 99 Room Air 10/12/23 07:15 96 Room Air 10/12/23 07:00 10/12/23 07:00 95 Room Air 10/12/23 06:45 95 Room Air 10/12/23 06:15 96 10/12/23 06:00 10/12/23 06:00 10/12/23 05:45 95 10/12/23 05:30 95 10/12/23 05:15 91 10/12/23 05:00 10/12/23 05:00 10/12/23 04:45 94 10/12/23 04:30 94 10/12/23 04:15 97 10/12/23 04:01 10/12/23 04:01 95 10/12/23 04:00 10/12/23 04:00 95/54 L 95 Room Air 10/12/23 03:45 93 10/12/23 03:30 94 10/12/23 03:15 93 10/12/23 03:05 87 L 10/12/23 03:05 10/12/23 03:00 100 10/12/23 03:00 96/54 L 95 Room Air 10/12/23 02:45 96 10/12/23 02:30 94 10/12/23 02:15 94 10/12/23 02:00 95/52 L 95 Room Air 10/12/23 02:00 10/12/23 02:00 10/12/23 01:45 94 10/12/23 01:30 92 10/12/23 01:15 98 10/12/23 01:02 10/12/23 01:00 10/12/23 01:00 10/12/23 00:45 93 10/12/23 00:30 93 10/12/23 00:15 93 10/12/23 00:00 10/12/23 00:00 10/11/23 23:45 94 10/11/23 23:30 93 10/11/23 23:15 93 10/11/23 23:00 10/11/23 23:00 10/11/23 22:51 10/11/23 22:51 92 10/11/23 22:45 94 10/11/23 22:30 99 10/11/23 22:15 93 10/11/23 22:00 96 10/11/23 22:00 10/11/23 21:45 95 10/11/23 21:30 95 10/11/23 21:15 95 10/11/23 21:00 93 Lab & Micro Results (Past 24 Hours) RBC 3.00 M/uL (4.20-5.40) L 10/12/23 WBC 8.72 K/ul (4.8-10.8) 10/12/23 Hgb 10.1 g/dl (12.0-16.0) L 10/12/23 Hct 31.1 % (37.0-47.0) L 10/12/23 MCV 103.7 fL (80.0-100.0) H 10/12/23 MCH 33.7 pg (25.0-34.0) 10/12/23 MCHC 32.5 g/dL (32.0-36.0) 10/12/23 RDW Standard Deviation 72.3 fL (36.4-46.3) H 10/12/23 RDW Coefficient of Variation 18.8 % (11.5-14.5) H 10/12/23 Plt Count 176 K/uL (130-400) 10/12/23 MPV 10.9 fL (9.4-12.4) 10/12/23 ANC 6.54 K/uL (1.4-6.5) H 10/12/23 ALC 0.61 K/uL (1.2-3.4) L 10/12/23 Neutrophils % (Manual) 75 % 10/12/23 Lymphocytes % (Manual) 7 % 10/12/23 Monocytes % (Manual) 2 % 10/12/23 Eosinophils % (Manual) 2 % 10/11/23 Basophils % (Manual) 1 % 10/11/23 Metamyelocytes % (manual) 16 % 10/12/23 Neutrophils # (Manual) 6.54 K/uL (1.40-6.50) H 10/12/23 Lymphocytes # (Manual) 0.61 K/uL (1.2-3.4) L 10/12/23 Monocytes # (Manual) 0.17 K/uL (0.11-0.59) 10/12/23 Eosinophils # (Manual) 0.08 K/uL (0-0.50) 10/11/23 Basophils # (Manual) 0.04 K/uL (0-0.2) 10/11/23 Metamyelocytes # (Manual) 1.40 K/uL (0-0) H 10/12/23 Red Blood Cell Morphology Unremarkable 10/12/23 Polychromasia 1+ 10/11/23 Tear Drop Cells 1+ 10/11/23 Ovalocytes 1+ 10/11/23 Toxic Vacuolation 1+ 10/11/23 Dohle Bodies 2+ 10/12/23 Na 134 mmol/L (136-145) L 10/12/23 K 5.9 mmol/L (3.5-5.1) H 10/12/23 Cl 101 mmol/L (98-107) 10/12/23 CO2 18 mmol/L (21-32) L 10/12/23 Anion Gap 15 (3-11) H 10/12/23 BUN 49 mg/dl (6-23) H 10/12/23 Creatinine 3.98 mg/dl (0.6-1.2) H 10/12/23 Estimated GFR ( Amer) 11.8 ml/min 10/12/23 Estimated GFR (Non-Af Amer) 10.2 ml/min 10/12/23 BUN/Creatinine Ratio 12.3 (10-20) 10/12/23 Glu 166 mg/dl (70-99(Fasting)) H 10/12/23 Ca 7.0 mg/dl (8.6-10.3) L 10/12/23 Phosphorus Level 5.8 mg/dl (2.5-4.9) H 10/12/23 Total Bilirubin 2.6 mg/dl (0.2-1.0) H 10/12/23 AST 261 U/L (13-39) H 10/12/23 ALT 265 U/L (7-52) H 10/12/23 Alkaline Phosphatase 85 U/L (34-104) 10/12/23 TP 4.8 gm/dl (6.0-8.3) L 10/12/23 Albumin 2.9 gm/dl (3.4-5.0) L 10/12/23 Globulin 1.9 gm/dl (2.5-4.0) L 10/12/23 Albumin/Globulin Ratio 1.5 (0.9-2) 10/12/23 Mg 2.1 mg/dl (1.7-2.4) 10/12/23 04:59 Calcium Level 7.0 mg/dl (8.6-10.3) L 10/12/23 04:59 Ionized Calcium 0.86 mmol/L (1.12-1.32) L 10/11/23 23:11 Prothromb Time International Ratio 1.2 (0.9-1.1) H 10/11/23 13 :25 Bridger Test NA 10/11/23 22:36 Diagnostic Findings (Past 24 Hours) Ankle X-Ray 10/11/23 12:56 XR ankle LT min 3V routine, XR foot LT min 3V routine HISTORY: 78 years-old Female swelling, pain, stepped off curb acute left lower extremity pain status post fall COMPARISON: None TECHNIQUE: 3 views of the left foot with 3 views of the left ankle FINDINGS: ANKLE: Moderate circumferential soft tissue swelling. Mild osteoarthritis. No acute fracture, dislocation or osteochondral defect. FOOT: Moderate diffuse soft tissue swelling. Large plantar calcaneal osteophyte. Mild to moderate osteoarthritis. IMPRESSION: Soft tissue swelling without acute fracture or dislocation identified. ACT 112: Negative or not required by law. The above report was generated using voice recognition software. It may contain grammatical, syntax or spelling errors. Electronically signed by: Haseeb Steiner M.D. 10/11/2023 1:18 PM Foot X-Ray 10/11/23 12:56 XR ankle LT min 3V routine, XR foot LT min 3V routine HISTORY: 78 years-old Female swelling, pain, stepped off curb acute left lower extremity pain status post fall COMPARISON: None TECHNIQUE: 3 views of the left foot with 3 views of the left ankle FINDINGS: ANKLE: Moderate circumferential soft tissue swelling. Mild osteoarthritis. No acute fracture, dislocation or osteochondral defect. FOOT: Moderate diffuse soft tissue swelling. Large plantar calcaneal osteophyte. Mild to moderate osteoarthritis. IMPRESSION: Soft tissue swelling without acute fracture or dislocation identified. ACT 112: Negative or not required by law. The above report was generated using voice recognition software. It may contain grammatical, syntax or spelling errors. Electronically signed by: Haseeb Steiner M.D. 10/11/2023 1:18 PM Venous Doppler Study 10/11/23 12:56 LEFT LOWER EXTREMITY VENOUS DOPPLER HISTORY: Acute pain and swelling of the left lower leg swelling, redness, pain COMPARISON STUDY: 07/01/2023. FINDINGS: There is normal compressibility, flow, and augmentation within the left lower extremity deep venous system. Subcutaneous edema. IMPRESSION: No DVT within the left lower extremity. ACT 112: Negative or not required by law. Electronically signed by: Haseeb Steiner M.D. 10/11/2023 2:17 PM Chest X-Ray 10/11/23 13:04 XR chest 1V portable HISTORY: 78 years-old Female edema, h/o chf acute shortness of breath COMPARISON: 08/26/2023 TECHNIQUE: AP view of the chest FINDINGS: Cardiac silhouette is enlarged. Left subclavian pacer/AICD.. Pulmonary vascular congestion. No pneumothorax. Small pleural effusions with mild bibasilar densities. Left shoulder arthroplasty. 10 mm nodular density projects over the right upper lung. IMPRESSION: 1. Cardiomegaly with pulmonary vascular congestion. 2. Small pleural effusions with mild bibasilar atelectasis. 3. 10 mm nodule versus artifact projects over the right upper lung. ACT 112: Negative or not required by law. The above report was generated using voice recognition software. It may contain grammatical, syntax or spelling errors. Electronically signed by: Haseeb Steiner M.D. 10/11/2023 1:51 PM KUB X-Ray 10/11/23 19:35 KUB CLINICAL HISTORY: Abdominal pain. COMPARISON STUDY: CT of the abdomen and pelvis May 05, 2020. FINDINGS: Bilateral hip arthroplasties, lumbosacral decompression and fusion and pacer/AICD leads are incidentally noted. Bowel gas pattern is normal. There is a moderate amount of stool within the colon and rectum. Heterotopic ossification adjacent to the femoral components of the hip arthroplasties is incidentally noted. IMPRESSION: 1. No evidence for a bowel obstruction. 2. Moderate amount of stool within the colon and rectum. ACT 112: Negative or not required by law. Electronically signed by: Alfred Avendaño M.D. 10/12/2023 7:18 AM Chest X-Ray 10/11/23 22:20 XR chest 1V portable CLINICAL HISTORY: eval central line placement, r/o pthx COMPARISON STUDY: Chest radiograph October 11, 2023 at 1:39 PM. FINDINGS: There is no pneumothorax following placement of a right internal jugular central venous catheter. Tip projects over the distal SVC. Left shoulder arthroplasty and left subclavian pacer/AICD remain in place. There are small bilateral pleural effusions. Cardiomegaly with pulmonary vascular congestion is again noted. There are mild bibasilar opacities. IMPRESSION: 1. No pneumothorax following placement of a right internal jugular central line. 2. Small bilateral pleural effusions with bibasilar opacities. 3. Cardiomegaly with pulmonary vascular congestion. ACT 112: Negative or not required by law. Electronically signed by: Alfred Avendaño M.D. 10/12/2023 7:22 AM I & O Totals 24 Hours 10/11/23 10/12/23 10/13/23 06:59 06:59 06:59 Intake Total 3332.049 / 3332.049 1188.695 / 1188.695 Output Total 255 / 255 Balance 3077.049 / 3077.049 1188.695 / 1188.695 Cumulative 10/11/23 12:39 thru 10/12/23 08:38 Intake Total 4520.744 Output Total 255 Balance 4265.744 RT Ventilator Mngmt (Last Documented) Ventilator Ordered Settings Respiratory Rate 26 10/12/23 08:30 Ventilator - PT Measurements Respiratory Rate 26 Coding Level of Care Code 65139 CRITICAL CARE EA ADD 30M Diagnoses Septic shock A41.9; R65.21 JULIO (acute kidney injury) N17.9 Lactic acidosis E87.20 Hyperkalemia E87.5
[2023-10-12] MEDS ORDERED: APIXABAN 5 MG TABLET PO SCH (09:00)
[2023-10-12] MEDS ORDERED: DULoxetine HCL 60 MG CAP PO SCH (09:00)
[2023-10-12] MEDS ORDERED: FLUTICASONE/VILANTEROL 100/25MCG 14 PUFFS/INHALER INH SCH (09:00)
[2023-10-12] MEDS ORDERED: AMIODARONE 200 MG TAB PO SCH (09:00)
[2023-10-12] MEDS ORDERED: MONTELUKAST SODIUM 10 MG TABLET PO SCH (09:00)
--- NOTE | 2023-10-12 09:27 | XCELERA ---
[id number] \\[id number]
--- NOTE | 2023-10-12 09:32 | CT Scan Report ---
CT tib/fib LT wo con CLINICAL HISTORY: eval infection for bone TECHNIQUE: Multidetector row helical CT of the left tibia and fibula was performed without intravenou s contrast. Coronal and sagittal reformations were obtained. Automated dose lowering techniques and/o r adjustment according to patient size were utilized for this examination. Comparison: Comparison is made to left ankle radiograph 10/11/2023 FINDINGS: The osseous structures are without fracture or dislocation. The joint spaces are maintained. No joint effusion is seen. Soft tissue stranding is seen without drainable fluid collection. IMPRESSION: Findings compatible cellulitis without bony abnormalities to suggest osteomyelitis. No drainable flui d collections. ACT 112: Negative or not required by law. Electronically signed by: José Miguel Hernandes M.D. 10/12/2023 9:30 AM
[2023-10-12] MEDS: CLINDAMYCIN/D5W 900 MG/50 ML BAG IV ONE (09:49)
--- NOTE | 2023-10-12 10:33 | Discharge Summary ---
Date of Service October 12, 2023 Admission HPI Per Admitting Provider Mike Vergara is a 78 year old female who presents to the ER with left ankle pain. Left ankle pain started yesterday when she though she had sprained it and started putting ice on it. It became worse overnight therefore came to the ER for XRs. She denies any fever or chills. In the ER she had her leg stockings removed and only then did she notice her leg redness up to her groin. No prior history of MRSA. She has a significant history of heart failure with improved ejection fraction following Biventricular pacemaker and carvedilol use. Most recent echocardiogram in April with LVEF 55-60% with no regional wall abnormalities. Despite this she reports 10lb weight gain in a week with associated leg swelling. Shortness of breath just when she came to the ER. She denies any orthopnea but does not lie flat due to her reflux. No paroxsmal nocturnal dyspnea, palpitations, chest pain or dizziness. No current nausea, vomiting, abdominal pain, diarrhea, melena, hematochezia. No cough, nasal congestion, urinary symptoms. She has CKD stage G4 (A3 per most recent nephrology note but on review of recent protein/Cr ratios appear normal). She reports being on prednisone as if she stops taking it her kidneys get worse. She takes Revlimid for multiple myeloma (last does this morning). She notes she was recently taking Augmentin for sinusitis prescribed on October 01 but had to stop taking it 4 days ago due to diarrhea which has now improved. Initially she was fully conversational while taking a history with BP 95/52. While in the ER following Daptomycin, Zosyn, Bumex, duoneb: I re-entered her room to find her less responsive and appeared to have vomited. BP 72/38. Delayed cap refil. Telemetry had not changed. POC glucose 184. She was alert enough to try and spit out residual sick. She continued to vomit and ondansetron, famotidine and pantoprazole were ordered. ICU team were contacted and she was started on phenylephrine IV drip with improvement in her BP and cognition. She was transported to the ICU for further care. Discharge Data Allergies Allergy/AdvReac Type Severity Reaction Status Date / Time codeine Allergy Severe Anaphylaxis Verified 10/11/23 15:03 celecoxib [From Celebrex] Allergy Intermediate RASH Verified 10/11/23 15:03 cephalexin [From Keflex] Allergy Intermediate Rash Verified 10/11/23 15:03 hydrocodone Allergy Intermediate Rash Verified 10/11/23 15:03 Iodinated Contrast Media Allergy Intermediate RASH Verified 10/11/23 15:03 nickel Allergy Intermediate Rash Verified 10/11/23 15:03 oxycodone Allergy Intermediate Rash Verified 10/11/23 15:03 Sulfa (Sulfonamide Allergy Intermediate RASH TO Verified 10/11/23 15:03 Antibiotics) SULFA DRUGS tetracycline Allergy Intermediate RASH Verified 10/11/23 15:03 capsaicin AdvReac Intermediate CREATINE Verified 10/11/23 15:03 ELEVATION diclofenac AdvReac Intermediate CREATINE Verified 10/11/23 15:03 ELEVATION propylene glycol AdvReac Intermediate CREATINE Verified 10/11/23 15:03 ELEVATION "PREP WITH BLUE DYE" Allergy Intermediate Rash Uncoded 10/11/23 15:03 Consultations 10/11/23 17:00 ED Decision to Admit Stat 10/11/23 19:29 Consult Office Services Representative Routine 10/12/23 07:08 Consult General Surgery Routine 10/12/23 09:06 Burn CD for patient Stat 10/12/23 09:32 Radiology Transfer Of Images Stat Ordered Studies 10/11/23 12:56 US venous doppler LE LT Stat 10/12/23 07:08 CT leg [CT femur LT wo con] Routine CT leg [CT tib/fib LT wo con] Routine Hospital Course (1) Septic shock: Initially did not meet SIRS criteria but given elevated procalcitonin and now with hypotension this is consistent with sepsis meeting qSOFA score 3 Unclear if hypotension due to sepsis (following antibiotics causing toxin release) +/- intravascular depletion (following Bumex administration despite overall body fluid increased) Fluid bolus not given due to concern for congestive heart failure Hypotension in ER also somewhat vasovagal as occurred in setting of vomiting and appeared to improve slightly after controlling this Started on phenylephrine and patient will be admitted to the ICU for ongoing treatment - discussed care with [place] RU[facility] on admission Procalcitonin 4.8 Source = cellulitis (2) Cellulitis: Given immunosuppression and diabetes started broad spectrum coverage with dapt omycin and Zosyn Follow up blood cultures (3) Hypervolemia associated with renal insufficiency: BNP increased, LFTs increased suggestive of liver congestion, weight increased, increased peripheral edema, shortness of breath with pulmonary edema on CXR Probably less heart failure related at this stage given most recent echo with improved ejection fraction and hypervolemia mostly driven by CKD Bumex 1mg PO BID; occasionally takes extra dose but none recently Bumex 1mg IV given but subsequently became hypotensive therefore will defer ongoing doses Strict I&Os Daily weights (4) Paroxysmal atrial fibrillation: Currently AV dual paced rhythm Digoxin level with a.m. labs Will defer amiodarone and carvedilol dosing as need per ICU team given current hypotension (5) Asthma: No current exacerbation suspected Duoneb given in the ER Continue her usual inhaler (6) Multiple myeloma: Hold Revlimid given increased risk of severe infections (7) CKD (chronic kidney disease) stage 4, GFR 15-29 ml/min: Worse than baseline Cr 2.14, Cr 2.98 on admission Suspected pre-renal. Issa catheter inserted. UA ordered with Pr/Cr ratio. Monitor UO closely. (8) Hypothyroidism: TSH 7.442 in August, no need to repeat Continue her usual levothyroxine dosing once she can take PO meds (9) Type II diabetes mellitus: HbA1C 9.0 in July, no need to repeat Hold Basal dosing at this time while NPO BSG ACHS Consult pharmacy for glycemic control (10) GERD (gastroesophageal reflux disease): Switch lansoprazole to pantoprazole 40mg IV daily (11) Elevated liver enzymes: Suspected liver congestion, consider imaging if getting worse but no RUQ pain on exam and clear alternative source of infection (12) Paroxysmal ventricular tachycardia: Continue amiodarone if possible with her BP but will defer this to the ICU team Mg level added, K > 4 (13) Hypertension: Hold all antihypertensives at this time due to septic shock Plan VTE Prophyalxis - Restart Eliquis when she can take PO meds Diet - NPO Disposition - admit to ICU Discharge Plan Discharge Items Patient Disposition: Transfer Acute Care Hospital Reason For Visit: CELLULITIS, SEPSIS Discharge Diagnosis: sepsis Activity: As commented below Non-emergency contact: Primary Care Provider Call non-emergency contact if: you have any medication questions Follow-up/Referrals: Jigna Jovel DO [Primary Care Provider] - Diet: Nothing by Mouth Addtl Attending Provider Instructions: Transfer to [facility] Pending Studies at Discharge: No Stand-Alone Forms: My [facility] Skilled Items Patient informed of condition?: Yes DNR: No Discharge Level of Care: Other Communicable Disease: No Discharge Prognosis: Deteriorating Lines: Peripheral IV Urinary Catheter: Yes Medications and DC Order Prescriptions: Continued Eliquis 5 mg tablet 5 mg PO BID Qty: 180 3RF (DME) Hospital Bed [facility] See Rx Instructions .Route Qty: 1 0RF Rx Instructions: Semi-electric hospital bed with mattress and side rails levalbuterol HCl 0.63 mg/3 mL solution for nebulization 0.63 mg INHALATION Q4H PRN (Reason: Cough) Qty: 90 0RF carvedilol 25 mg tablet 25 mg PO BID Qty: 180 3RF Rx Instructions: must administer with a meal/food (DME) Accu-Chek Garima Plus test strp Strip See Rx Instructions .ROUTE .MEDSUPPLY Qty: 100 3RF Rx Instructions: Check blood sugars once PRN (DME) pen needle, diabetic [BD Jaimee 2nd Gen Pen Needle] 32 gauge x 5/32" needle See Rx Instructions .Route Qty: 200 11RF Rx Instructions: use for injections 4x daily, change with each use azelastine 137 mcg (0.1 %) aerosol,spray 2 spray INTRANASAL DAILY PRN (Reason: ALLERGIES) Qty: 30 0RF calcitriol 0.5 mcg capsule 0.5 mcg PO BID acyclovir 400 mg tablet 400 mg PO QAM lenalidomide [Revlimid] 10 mg capsule 10 mg PO QAM Rx Instructions: 3 weeks on, 1 week off. Currently on week insulin aspart U-100 [Novolog FlexPen U-100 Insulin] 100 unit/mL (3 mL) insulin pen 6 unit subcut TID Qty: 15 3RF Rx Instructions: Inject SIX units into the abdomen 10 minutes before meals. (DME) FreeStyle Rafa 3 Sensor Device See Rx Instructions .Route Qty: 2 11RF Rx Instructions: change sensor every 14 days atorvastatin 40 mg tablet 40 mg PO HS Qty: 90 3RF (DME) blood-glucose meter [Accu-Chek Garima Plus Meter] [facility] See Rx Instructions .ROUTE .MEDSUPPLY Rx Instructions: Used to check blood sugars once PRN digoxin 125 mcg (0.125 mg) tablet 125 mcg PO DAILY Qty: 30 2RF prednisone 5 mg tablet 5 mg PO QAM Qty: 90 3RF duloxetine [Cymbalta] 60 mg capsule,delayed release(DR/EC) 60 mg PO QAM Qty: 90 3RF albuterol sulfate 90 mcg/actuation HFA aerosol inhaler 2 puff inhalation Q6H PRN (Reason: shortness of breath or wheezing) Qty: 8.5 2RF budesonide-formoterol [Symbicort] 80-4.5 mcg/actuation HFA aerosol inhaler 2 puff inhalation BID Qty: 3 3RF cholestyramine (with sugar) 4 gram powder 4 ea PO DIRECTED PRN (Reason: Diarrhea) Qty: 378 0RF cetirizine [Zyrtec] 10 mg Tablet 10 mg PO HS betamethasone valerate 0.1 % cream 1 applic TOPICAL UD PRN (Reason: PSORIASIS ) Rx Instructions: Apply to areas of the arms twice daily for up to 2 weeks as needed for flaring. omega 0-huv-zou-fish oil [Fish Oil] 1,000 mg (120 mg-180 mg) Capsule 1,000 mg PO BID magnesium oxide 400 mg magnesium Tablet 400 mg PO BID Trulicity 1.5 mg/0.5 mL pen injector 1.5 mg subcut WK Rx Instructions: Inject 1.5 mg into the abdomen once weekly. acetaminophen [Tylenol Arthritis Pain] 650 mg Tablet Extended Release 1,300 mg PO BID bumetanide 1 mg tablet 1 mg PO BID Qty: 180 3RF Rx Instructions: May increase to 2 mg daily for weight gain, SOB, edema. mirtazapine 7.5 mg tablet 7.5 mg PO HS levothyroxine 137 mcg tablet 137 mcg PO QAM potassium chloride [Klor-Con M20] 20 mEq tablet,ER particles/crystals 20 meq PO BID ferrous sulfate 325 mg (65 mg iron) tablet 325 mg PO QAM lansoprazole 30 mg capsule,delayed release(DR/EC) 30 mg PO QAM montelukast [Singulair] 10 mg tablet 10 mg PO QAM insulin glargine [Lantus Solostar U-100 Insulin] 100 unit/mL (3 mL) insulin pen 20 unit subcut QPM Rx Instructions: inject 12 units subcutaneously each day at the same time of day calcium carbonate-vitamin D3 600 mg-10 mcg (400 unit) tablet 1 tab PO BID amiodarone 200 mg tablet 200 mg PO BID ciprofloxacin HCl 0.3 % drops See Rx Instructions .ROUTE .COMPLEX Rx Instructions: 5 drops into left ear twice daily x 14 days. Pt unsure of start date. Discharge Orders: Discharge Order (Routine); Ordered 10/12/23 Ordered By: Will Lezama Admission Data Admit Date/Time: 10/11/23 19:29 Attending Provider: Will Lezama Admit Provider: Hunter Alaniz Primary Care Provider: Jigna Jovel Other Providers: Hunter Alaniz; Jez Marinelli; Junaid Adams Coding Diagnoses Septic shock A41.9; R65.21 Cellulitis L03.90 Hypervolemia associated with renal insufficiency E87.70; N28.9 Paroxysmal atrial fibrillation I48.0 Asthma J45.909 Multiple myeloma C90.00 CKD (chronic kidney disease) stage 4, GFR 15-29 ml/min N18.4 Acquired hypothyroidism E03.9 Hypothyroidism type: acquired Type 2 diabetes mellitus with stage 4 chronic kidney disease, without long-term current use of insulin E11.22; N18.4 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 termite control representative insulin use: without termite control representative use 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 complication status: with kidney complications 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 complication detail: with chronic kidney disease Chronic kidney disease stage: stage 4 (severe) Gastroesophageal reflux disease, esophagitis presence not specified K21.9 Esophagitis presence: esophagitis presence not specified Elevated liver enzymes R74.8 Paroxysmal ventricular tachycardia I47.29 Primary hypertension I10 Hypertension type: primary hypertension
--- NOTE | 2023-10-12 10:36 | Procedure Note ---
Procedure Note Date of Service October 12, 2023 Note CENTRAL LINE PROCEDURE NOTE: Procedure: Temporary hemodialysis catheter Provider: Epi Garcia MD Indication: Central Drug Administration, Poor Venous Access, Multiple Lab Draws Necessary, etc. Anesthesia: 5 mL 1% lidocaine locally Site: Left femoral Procedure was emergent. Risks and benefits were discussed with the patient at the bedside in the presence of the nurse. She agreed to proceed. A time-out was completed verifying correct patient, procedure, site, positioning, and implants(s) or special equipment if applicable. Initially attempted to place in the left internal jugular. The neck was cleaned with ChloraPrep and a sterile field established. I was able to identify the internal jugular vein on ultrasound which was easily compressible. I was able to access the vein however the wire would not pass distally likely due to some degree of stenosis with the patient's AICD. At that point in time we made a decision to transition to a femoral catheter. The right groin was initially evaluated but had extensive skin candidal infection and at that point time we elected to transition to the left groin. It was cleaned and draped in normal sterile fashion using chlorhexidine with extensive washing. The femoral vein and artery were identified under ultrasound visualization. Skin and soft tissues were anesthetized using 5 mL of 1% lidocaine. After adequate anesthetization was achieved, the left femoral vein was cannulated under direct ultrasound guidance using an introducer needle on a syringe. Good venous blood return was maintained prior to removal of syringe from introducer needle. Using Seldinger Technique, a guide wire was advanced through the introducer needle without resistance. The introducer needle was removed. A small incision was made in penetrating fashion at the guide wire insertion site utilizing an 11 blade scalpel. Serial dilators were advanced to the vessel without resistance. The final dilator was exchanged for the 24 cm hemodialysis catheter which was advanced into the vessel without resistance. The guide wire was removed intact from the catheter without issue. Claves were placed on each catheter tip with confirmation of good blood flow from each lumen. Each port was easily flushed with sterile saline. The catheter sutured in place. BioPatch was applied to the catheter and a sterile Tegaderm dressing was applied over the catheter with careful attention to sterility. Patient tolerated procedure well. No immediate complications were met. Estimated blood loss: 10 mL Coding CPT Codes Tubes, Drains, and Vasc Access - Tubes, Drains, and Vasc Access: [id number] Insertion of cannula for hemodialysis ([id number]) Tubes, Drains, and Vasc Access - Tubes, Drains, and Vasc Access: [id number] Ultrasound Guidance For Vascular ([id number]) [facility] Procedure Codes (Charges) Tubes, Drains, and Vasc Access Procedure 1: Tubes, Drains, and Vasc Access: [id number] Insertion of cannula for hemodialysis Procedure 2: Tubes, Drains, and Vasc Access: [id number] Ultrasound Guidance For Vascular
--- NOTE | 2023-10-12 10:50 | CT Scan Report ---
LEFT FEMUR CT WITHOUT CONTRAST CLINICAL HISTORY: Evaluate for infection in bone. Left leg pain. COMPARISON STUDY: Left hip radiograph January 06, 2020. CT of the abdomen and pelvis May 05. Left lower extremity venous Doppler ultrasound October 11, 2023. PET/CT June 10, 2023. TECHNIQUE: Axial images of the left femur and thigh were obtained without IV contrast. Sagittal and c oronal reconstructions were viewed. Automated exposure control was utilized for the study. A dose lo wering technique was utilized adhering to the principles of ALARA. FINDINGS: Alignment of the left hip arthroplasty is anatomic. No periprosthetic fracture or lucency i s noted. Osseous irregularity with heterotopic ossification along the femoral component is noted. Thi s was shown on CT of May 05, 2022 and is chronic. No bony erosions within the left femur are pre sent. There are no osseous lesions. There is no left femoral fracture. No soft tissue gas within the left is present. There is moderate subcutaneous edema of the left thigh with skin thickening. No flui d collection is identified on unenhanced exam. No muscular abnormalities identified by CT within the left thigh. Severe tricompartmental osteophytosis of the left knee is present. There is moderate join t effusion. IMPRESSION: 1. Intact total left hip arthroplasty. No periprosthetic fracture or lucency. 2. No evidence for osteomyelitis within the left femur. No left femoral fractures. 3. Subcutaneous fluid within the left thigh. This could reflect edema or cellulitis. No fluid collect ion to suggest abscess. 4. Severe left knee osteoarthritis. Moderate left knee joint effusion. ACT 112: Negative or not required by law. Electronically signed by: Alfred Avendaño M.D. 10/12/2023 10:49 AM
[2023-10-12] MEDS ORDERED: PANTOprazole 40 MG in SYRINGE 0 ML IV SCH (11:00)
[2023-10-12] MEDS ORDERED: DIGOXIN 0.125 MG TAB PO SCH (16:00)
[2023-10-12] MEDS ORDERED: INSULIN ASPART PER UNIT CHARGE SC SCH (21:15)
[2023-10-13] MEDS ORDERED: DAPTOmycin 525 MG in SYRINGE 0 ML IV SCH (21:00)
== END 2023-10-12 10:50 | disposition short-term general hospital (02) | DRG 871 ==
LOC: ED 12:39 → 1E 19:29 → SUATTDRO 19:29 → 1E 19:58

== ENCOUNTER 2023-11-03 15:10 | Inpatient (IN) ==
[2023-11-03 15:56] LABS: Basophils # (auto) 0.01 K/uL (0.00-0.20); Basophils % (auto) 0.2 %; Eosinophils # (auto) 0.14 K/uL (0.00-0.50); Eosinophils % (auto) 2.8 %; Hematocrit (blood only) 26.9 % (37.0-47.0); Hemoglobin 8.4 g/dl (12.0-16.0); Immature Granulocytes # (auto) 0.08 K/uL (0.01-0.20); Immature Granulocytes % (auto) 1.6 %; Lymphocytes # (auto) 0.43 K/uL (1.20-3.40); Lymphocytes % (auto) 8.5 %; Mean Corpuscular Hemoglobin 32.8 pg (25.0-34.0); Mean Corpuscular Hgb Conc 31.2 g/dL (32.0-36.0); Mean Corpuscular Volume 105.1 fL (80.0-100.0); Mean Platelet Volume 12.3 fL (9.4-12.4); Monocytes # (auto) 0.15 K/uL (0.11-0.59); Neutrophils # (auto) 4.24 K/uL (1.40-6.50); Neutrophils % (auto) 83.9 %; Platelet Count 165 K/uL (130-400); RDW Coefficient of Variation 17.8 % (11.5-14.5); RDW Standard Deviation 68.2 fL (36.4-46.3); Red Blood Count 2.56 M/uL (4.20-5.40); White Blood Count 5.05 K/ul (4.8-10.8)
[2023-11-03 16:15] LABS: Albumin Level 2.6 gm/dl (3.4-5.0); BUN Creatinine Ratio 8.5 (10-20); Bilirubin Direct 0.2 mg/dl (0-0.2); Bilirubin,Total 0.6 mg/dl (0.2-1.0); Calcium 7.8 mg/dl (8.6-10.3); Est GFR (African American) 8.8 ml/min; Est GFR (Non-African American) 7.6 ml/min; Potassium 4.8 mmol/L (3.5-5.1); Total Protein 4.7 gm/dl (6.0-8.3)
--- NOTE | 2023-11-03 16:28 | Emergency Department Note ---
Impression & Plan ARF (acute renal failure), Anemia, Pedal edema, Acute UTI ED Provider Note NAME: FRANCA LEAL AGE: 78 SEX: F : 1945 ARRIVES VIA: Ambulance INFORMANT: [Patient] ED PROVIDER(S): [Peña Noel MD] CHIEF COMPLAINT: Abnormal labs HISTORY OF PRESENT ILLNESS: The patient is a 78-year-old female who has been at [facility] for about a week. She had been at [facility] in [place] for cellulitis and sepsis. During the hospitalization, she did require dialysis for a brief time. The patient states that she feels weak all over but, she states she is not doing a lot of activity really. There has been no fall, no fever, no shortness of breath or cough, no abdominal pain. She is making urine. She had laboratory work done today showing a hemoglobin just over 7, her creatinine had climbed to 5. She was sent to the ER. PMHx/PSHx/Social Hx: See Below PHYSICAL EXAM: GENERAL: Patient is in no acute distress. HEENT: No acute trauma, normocephalic atraumatic, mucous membranes moist, no nasal congestion. NECK: No stridor, no adenopathy, no meningismus, trachea is midline. LUNGS: Clear to auscultation bilaterally when listening anterior, no wheeze, no rhonchi, breath sounds equal. HEART: Subtle systolic murmur, regular rate and rhythm. ABDOMEN: Soft, nontender, no peritonitis. Obese. EXTREMITIES: No cyanosis, full range of motion of all the joints without pain or difficulty. She does have bilateral pedal edema with wraps on both legs. NEUROLOGIC: Oriented x 3, no acute motor or sensory deficits, no focal weakness. SKIN: No jaundice, no diaphoresis. DIFFERENTIAL DIAGNOSIS: Renal failure, electrolyte imbalance, anemia, GI bleeding, UTI, urinary obstruction, among others. EMERGENCY DEPARTMENT PROCEDURES: MEDICAL DECISION MAKING: There is no leukocytosis. The patient is anemic however, the value today is consistent with some recent testing. She is not in need of any emergent blood transfusion with this hemoglobin value. There is a normal platelet count. No concerning coagulopathy. The patient does appear to have some acute on chronic renal failure. Calcium is low at 7.8. No concerning liver enzyme elevation. Lipase is slightly elevated but not high enough to diagnose pancreatitis. Urinalysis suggested infection. Chest x-ray did not show concerning CHF or pneumonia. On exam, the patient had some pedal edema. She was not in distress, she really had no complaints. The patient is not in need of an emergent blood transfusion. Her anemia may be from her renal disease. Given the acute on chronic renal failure, I do think the patient will require a hospital stay, she actually may need to be transitioned to dialysis. I did speak with nephrology, the patient is not in need of emergent dialysis today, she can be seen as a consult and decisions can be made. I did speak with the patient and case management, the on-call hospitalist has been consulted. Prior/Outside records/notes reviewed: Today's EMS notes describing her presentation and transport to this hospital. ECG per my interpretation: Indication was electrolyte imbalance. The ECG shows a ventricular pacemaker with a rate of 70. There is no acute ST elevation. There are nonspecific ST changes and some baseline artifact. The QTc is 427. Continuous Cardiac Monitoring per my interpretation: An order was placed for continuous cardiac monitoring. The monitor shows a rate of 72 with ventricular pacing. Imaging/x-ray results per my interpretation: Chest x-ray shows some chronic change, there was no focal infiltrate or concerning CHF. Chronic Medical/Social conditions affecting care: Advanced age, renal disease. Care/Management discussed with: Case management, the on-call hospitalist. [facility] nephrology-Dr. Morales. Level of care consideration(s): After review of the information above and other included data: --I believe the patient requires escalation of care to admission DISPOSITION: Admission Past Med/Surg History Problem List (Updated 11/03/23 @ 22:26 by Peña Noel MD) Acute UTI (Acute) Pedal edema (Acute) Anemia (Acute) ARF (acute renal failure) (Acute) Atrial flutter Lactic acidosis Elevated lactic acid level (Acute) Elevated liver enzymes (Acute) JULIO (acute kidney injury) (Acute) Cellulitis of left lower extremity (Acute) Septic shock Cellulitis Hypervolemia associated with renal insufficiency Recurrent serous otitis media of left ear Mixed hearing loss, bilateral Dysfunction of both eustachian tubes Heart failure with improved ejection fraction (HFimpEF) On amiodarone therapy ICD (implantable cardioverter-defibrillator), biventricular, in situ Cardiac pacemaker Recurrent pleural effusion Hypokalemia Asthma Nonischemic cardiomyopathy Hypermagnesemia Paroxysmal ventricular tachycardia Status post placement of cardiac pacemaker Post laminectomy syndrome Hyperlipidemia associated with type 2 diabetes mellitus Submandibular sialoadenitis Hypertension Chronic rhinitis Chronic anticoagulation (Acute) Psoriatic arthritis S/P right colectomy Generalized osteoarthritis Lumbar canal stenosis Pulmonary nodule Right asymmetrical SNHL Stenosis, cervical spine (Chronic) Vitamin D deficiency (Chronic) Depression (Chronic) Psoriasis (Chronic) Peptic ulcer disease (Chronic) GERD (gastroesophageal reflux disease) (Chronic) Esophageal spasm (Chronic) Multiple myeloma currently getting chemo CKD (chronic kidney disease) stage 4, GFR 15-29 ml/min baseline creatinine 2.0-2.2 range; nephrology (Dr. Stevenson) monitoring Spinal meningioma On c-spine- follows with [facility] neurosurgery specialist (Dr. Ken)- under surveillance/stable/no indication for surgical intervention, last seen Summer 2022 Hypothyroidism Type II diabetes mellitus (Unknown) IDDM Iron deficiency anemia Allergic rhinitis Medical History Paroxysmal atrial fibrillation follows with Dr. Mitchell on eliquis bid Hx of colonic polyps Hx of congestive heart failure Hx of tachycardia-bradycardia syndrome s/p ICD Hx of ventricular tachycardia Hx of pulmonary edema Hx of pleural effusion required thoracentesis x 3 Hx of esophageal spasm Hx of non-ST elevation myocardial infarction (NSTEMI) (~01/2023) post pacer placement, then went back for pacer/defib placement Cardiomyopathy Active asthma inhaler daily/prn, nebulizer prn Chronic dyspnea On anticoagulant therapy eliquis bid Chronic steroid use FOR PSORITRIC ARTHRITIS Esophageal dysmotility Hyperlipidemia Hearing loss, right DEAF RIGHT EAR 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 Obesity Polyneuropathy Schatzki's ring HTN (hypertension) Peptic ulcer disease Irritable bowel syndrome Psoriatic arthropathy GERD (gastroesophageal reflux disease) CONTROLLED WITH MEDS Surgical History History of thoracentesis x3 Hx of colonoscopy with polypectomy History of bone marrow biopsy (~04/2023) Hx of bilateral cataract extraction Presence of biventricular implantable cardioverter-defibrillator (ICD) History of laparoscopy (~06/2020) exploratory after colectomy @ [facility] History of colectomy (~06/2020) @ [facility] History of total left hip arthroplasty (~12/2019) History of total hip arthroplasty (~2019) x2 RIGHT 05/27/19. Complicated by post-op seroma requiring multiple needle aspirations. LEFT HIP 01/10/20 History of dilatation and curettage History of tooth extraction History of tonsillectomy and adenoidectomy History of cardiac cath X2; firts cath ~2008 (NO STENTS),symptoms of heartburn, [facility] second cath at [facility] 02/14 after epidsode of V-Tach, no stents, sees Dr. Granados History of arthroscopy RT/LEFT KNEE Status post total replacement of left shoulder History of esophagogastroduodenoscopy (EGD) History of total abdominal hysterectomy and bilateral salpingo-oophorectomy History of arthroscopy of right shoulder (~09/2018) History of total knee arthroplasty RIGHT History of foot surgery RT FOOT FUSION History of cholecystectomy History of lumbar fusion H/O thyroidectomy Family History Mother Arthritis Hypertension Father Lung cancer Hypertension Family/Other Family hx of colon cancer 1st cousin Unknown Allergies Breast cancer Hypertension Brother Cancer Heart disease Aunt Colorectal cancer Other No family history of adverse response to anesthesia No family history of bleeding disorder Denies family history of Ovarian cancer Prostate cancer Diabetes Hearing loss Myocardial infarction Stroke Asthma Social History Smoking Status: Never smoker Tobacco Type: Cigarettes Age Quit Using Tobacco: 26; Cigarettes Per Day: 1/2 PPD; Second Hand Exposure: No; Do You Dip or Chew Tobacco: No; Hx Alcohol Use: No Hx Substance Use: No Preferred Language: Iranian Communication Ability: Effective Communication Ability Comment: DEAF RIGHT EAR Visual Impairment: No Limitations Hearing Ability: Gate Agent Required: No Beliefs That Will Affect Care: None marital status: / Current Living Situation: Alone Current Living Situation Comment: [place] current occupational status: retired current occupation: Retired How many Children do You have: 0 Feels Safe at Home: Yes Childhood Exposure to Second-Hand Smoke: Yes caffeine: Yes Dental Care, Regularly: Yes Physical Activity Frequency: Does not Exercise Physical Activity Frequency Comment: Hip problems Seatbelt Use: always Sunscreen Use: No Assistive Devices: Denture - Upper, Denture - Lower and Glasses Allergies Allergies Allergy/AdvReac Type Severity Reaction Status Date / Time codeine Allergy Severe Anaphylaxis Verified 10/11/23 15:03 celecoxib [From Celebrex] Allergy Intermediate RASH Verified 10/11/23 15:03 cephalexin [From Keflex] Allergy Intermediate Rash Verified 10/11/23 15:03 hydrocodone Allergy Intermediate Rash Verified 10/11/23 15:03 Iodinated Contrast Media Allergy Intermediate RASH Verified 10/11/23 15:03 nickel Allergy Intermediate Rash Verified 10/11/23 15:03 oxycodone Allergy Intermediate Rash Verified 10/11/23 15:03 Sulfa (Sulfonamide Allergy Intermediate RASH TO Verified 10/11/23 15:03 Antibiotics) SULFA DRUGS tetracycline Allergy Intermediate RASH Verified 10/11/23 15:03 capsaicin AdvReac Intermediate CREATINE Verified 10/11/23 15:03 ELEVATION diclofenac AdvReac Intermediate CREATINE Verified 10/11/23 15:03 ELEVATION propylene glycol AdvReac Intermediate CREATINE Verified 10/11/23 15:03 ELEVATION "PREP WITH BLUE DYE" Allergy Intermediate Rash Uncoded 10/11/23 15:03 Home Meds Home Medications Medication Instructions Recorded Confirmed magnesium oxide 400 mg PO AMHS 07/26/18 11/03/23 omega 3-vgb-lgy-fish oil 1,000 mg 1,000 mg PO AMHS 07/26/18 11/03/23 (120 mg-180 mg) capsule (Fish Oil) betamethasone valerate 0.1 % 1 applic topical BID PRN PSORIASIS 11/30/19 11/03/23 topical cream blood-glucose meter (Accu-Chek 02/12/21 10/09/23 Garima Plus Meter) acetaminophen 650 mg 1,300 mg PO AMHS 01/20/23 11/03/23 tablet,extended release (Tylenol Arthritis Pain) calcitriol 0.5 mcg capsule 0.5 mcg PO QAM 03/23/23 11/03/23 dulaglutide 1.5 mg/0.5 mL 1.5 mg subcut WK 04/15/23 11/03/23 subcutaneous pen injector ([facility]) mirtazapine 7.5 mg tablet 7.5 mg PO HS 07/01/23 11/03/23 acyclovir 400 mg tablet 400 mg PO QAM 08/24/23 11/03/23 lenalidomide 10 mg capsule 10 mg PO QAM 08/24/23 11/03/23 (Revlimid) ferrous sulfate 325 mg (65 mg 325 mg PO QAM 09/15/23 11/03/23 iron) tablet insulin glargine 100 unit/mL (3 10 unit subcut HS 09/15/23 11/03/23 mL) subcutaneous pen (Lantus Solostar U-100 Insulin) lansoprazole 30 mg capsule,delayed 30 mg PO QAM 09/15/23 11/03/23 release levothyroxine 137 mcg tablet 137 mcg PO QAM 09/15/23 11/03/23 montelukast 10 mg tablet 10 mg PO QAM 09/15/23 11/03/23 (Singulair) potassium chloride 20 mEq 20 meq PO AMHS 09/15/23 11/03/23 tablet,extended release(part/cryst) (Klor-Con M) amiodarone 200 mg tablet 200 mg PO AMHS 10/11/23 11/03/23 calcium carbonate 600 mg-vitamin 1 tab PO BID 10/11/23 11/03/23 D3 10 mcg (400 unit) tablet ciprofloxacin HCl 0.3 % eye drops 5 drp OPL AMHS 10/11/23 11/03/23 Saccharomyces boulardii 250 mg 250 mg PO QA 11/03/23 11/03/23 capsule (Florastor) albuterol sulfate 2.5 mg/3 mL 2.5 mg inhalation Q4H PRN Wheezing 11/03/23 11/03/23 (0.083 %) solution for nebulization apixaban 5 mg tablet (Eliquis) 5 mg PO AMHS 11/03/23 11/03/23 cholestyramine (with sugar) 4 gram 1 ea PO BID PRN Diarrhea 11/03/23 11/03/23 oral powder digoxin 125 mcg (0.125 mg) tablet 125 mcg PO QAM Atrial fibrillation 11/03/23 11/03/23 fluticasone 250 mcg-salmeterol 50 2 inh inhalation Q12H 11/03/23 11/03/23 mcg/dose blistr powdr for inhalation (Wixela Inhub) multivitamin 1 tab PO .DAILY IN AFTERNOON 11/03/23 11/03/23 ondansetron 4 mg disintegrating 4 mg PO AMHS 11/03/23 11/03/23 tablet ondansetron 4 mg disintegrating 4 mg PO Q6 PRN chemo associated n/v 11/03/23 11/03/23 tablet oxycodone 5 mg tablet 5 mg PO Q6 PRN pain 1-7 11/03/23 11/03/23 oxycodone 5 mg tablet 10 mg PO Q6 PRN pain 8-10 11/03/23 11/03/23 protein supplement 1 ea PO BID 11/03/23 11/03/23 sodium bicarbonate 650 mg tablet 650 mg PO TID 11/03/23 11/03/23 Previous Rx's Medication Instructions Recorded albuterol sulfate 90 mcg/actuation 2 puff inhalation Q6H PRN 09/30/22 aerosol inhaler shortness of breath or wheezing #8.5 grams Hospital Bed Homecare (Hospital [facility]1 ea 03/03/23 Bed) atorvastatin 40 mg tablet 40 mg PO HS #90 tabs 04/15/23 duloxetine 60 mg capsule,delayed 60 mg PO QAM #90 caps 04/24/23 release (Cymbalta) prednisone 5 mg tablet 5 mg PO QAM #90 tabs 04/24/23 carvedilol 25 mg tablet 25 mg PO BID #180 tabs 06/22/23 blood sugar diagnostic (Accu-Chek #100 ea 07/16/23 Garima Plus test strips) blood-glucose sensor (FreeStyle #2 ea 08/25/23 Rafa 3 Sensor device) pen needle, diabetic 32 gauge x #200 ea 09/09/23 5/32" (BD Jaimee 2nd Gen Pen Needle) azelastine 137 mcg (0.1 %) nasal 2 spray intranasal DAILY PRN 09/30/23 spray aerosol ALLERGIES #30 mL Results & Data (ED) Vital Signs Vital Signs - 24 hr 11/03/23 15:20 11/03/23 15:37 11/03/23 16:27 Temperature 36.4 C L Temperature Source Oral Pulse Rate 71 75 70 Pulse Rate from SpO2 Sensor Respiratory Rate 24 15 Respiratory Effort / Characteristics Non-Labored Respiratory Depth Normal Blood Pressure 114/63 Blood Pressure [Right Arm] Blood Pressure Mean 80 Blood Pressure Mean [Right Arm] Pulse Oximetry 93 97 Oxygen Delivery Method Room Air Room Air Sepsis Recent Fever Within 48 Hours No Sepsis New/Unexplained Change in Mental Status No Sepsis Action Taken by Nursing No Action Required 11/03/23 17:12 11/03/23 17:38 11/03/23 17:51 Temperature Temperature Source Pulse Rate 70 70 Pulse Rate from SpO2 Sensor Respiratory Rate 18 15 Respiratory Effort / Characteristics Respiratory Depth Blood Pressure Blood Pressure [Right Arm] 111/64 Blood Pressure Mean Blood Pressure Mean [Right Arm] 79 Pulse Oximetry 99 94 Oxygen Delivery Method Room Air Room Air Sepsis Recent Fever Within 48 Hours Sepsis New/Unexplained Change in Mental Status Sepsis Action Taken by Nursing 11/03/23 18:01 11/03/23 18:33 11/03/23 19:30 Temperature Temperature Source Pulse Rate 70 Pulse Rate from SpO2 Sensor 70 Respiratory Rate 16 Respiratory Effort / Characteristics Respiratory Depth Blood Pressure 127/73 113/72 Blood Pressure [Right Arm] 103/60 Blood Pressure Mean 91 85 Blood Pressure Mean [Right Arm] 74 Pulse Oximetry 95 Oxygen Delivery Method Room Air Sepsis Recent Fever Within 48 Hours Sepsis New/Unexplained Change in Mental Status Sepsis Action Taken by [facility] Medications Current Medication List: was personally reviewed by me Laboratory Data Attestation: I reviewed the patient's lab results. 11/03/23 15:28 11/03/23 15:28 Lab Results 11/03/23 11/03/23 11/03/23 Range/Units 15:28 17:38 17:56 WBC 5.05 (4.8-10.8) K/ul RBC 2.56 L (4.20-5.40) M/uL Hgb 8.4 L (12.0-16.0) g/dl Hct 26.9 L (37.0-47.0) % MCV 105.1 H (80.0-100.0) fL MCH 32.8 (25.0-34.0) pg MCHC 31.2 L (32.0-36.0) g/dL RDW Std Deviation 68.2 H (36.4-46.3) fL RDW Coeff of Amrita 17.8 H (11.5-14.5) % Plt Count 165 (130-400) K/uL MPV 12.3 (9.4-12.4) fL Immature Gran % (Auto) 1.6 % Neut % (Auto) 83.9 % Lymph % (Auto) 8.5 % [place] % (Auto) 3.0 % Eos % (Auto) 2.8 % Baso % (Auto) 0.2 % Neut # (Auto) 4.24 (1.40-6.50) K/uL Lymph # (Auto) 0.43 L (1.20-3.40) K/uL [place] # (Auto) 0.15 (0.11-0.59) K/uL Eos # (Auto) 0.14 (0.00-0.50) K/uL Baso # (Auto) 0.01 (0.00-0.20) K/uL Immature Gran # (Auto) 0.08 (0.01-0.20) K/uL PT Cancelled 13.0 H INR Cancelled 1.2 H APTT Cancelled 40 H PTT Ratio Cancelled 1.5 Sodium 138 (136-145) mmol/L Potassium 4.8 (3.5-5.1) mmol/L Chloride 103 (98-107) mmol/L Carbon Dioxide 28 (21-32) mmol/L Anion Gap 7 (3-11) BUN 43 H (6-23) mg/dl Creatinine 5.08 H* (0.6-1.2) mg/dl Est Cr Clr Drug Dosing 13.0 ml/min Est GFR ( Amer) 8.8 ml/min Est GFR (Non-Af Amer) 7.6 ml/min BUN/Creatinine Ratio 8.5 L (10-20) Glucose 129 H (70-99(Fasting)) mg/dl POC Glucose 209 H (70-99) mg/dl Calcium 7.8 L (8.6-10.3) mg/dl Phosphorus 4.0 (2.5-4.9) mg/dl Magnesium 2.0 (1.7-2.4) mg/dl Total Bilirubin 0.6 (0.2-1.0) mg/dl Direct Bilirubin 0.2 (0-0.2) mg/dl AST 13 (13-39) U/L ALT 15 (7-52) U/L Alkaline Phosphatase 91 (34-104) U/L Total Protein 4.7 L (6.0-8.3) gm/dl Albumin 2.6 L (3.4-5.0) gm/dl Lipase 107 H (11-82) U/L Urine Color Urine Appearance (Clear) Urine pH (4.5-7.5) Ur Specific [place] (1.000-1.030) Urine Protein (Negative) Urine Glucose (UA) (Negative) Urine Ketones (Negative) Urine Blood (Negative) Urine Nitrite (Negative) Urine Bilirubin (Negative) Urine Urobilinogen (Negative) Ur Leukocyte Esterase (Negative) Urine WBC (Auto) (0-5) /hpf Urine RBC (Auto) (0-2) /hpf U Hyaline Cast (Auto) (0-2) /lpf U Epithel Cells (Auto) (0-2) /hpf Urine Bacteria (Auto) (None Seen) Ur Random Creatinine mg/dl U Random Total Protein (0-11.9) mg/dl Protein/Creatinin Ratio (0-0.2) Blood Type O Negative Antibody Screen POSITIVE A 11/03/23 11/03/23 Range/Units 18:55 20:59 WBC (4.8-10.8) K/ul RBC (4.20-5.40) M/uL Hgb (12.0-16.0) g/dl Hct (37.0-47.0) % MCV (80.0-100.0) fL MCH (25.0-34.0) pg MCHC (32.0-36.0) g/dL RDW Std Deviation (36.4-46.3) fL RDW Coeff of Amrita (11.5-14.5) % Plt Count (130-400) K/uL MPV (9.4-12.4) fL Immature Gran % (Auto) % Neut % (Auto) % Lymph % (Auto) % [place] % (Auto) % Eos % (Auto) % Baso % (Auto) % Neut # (Auto) (1.40-6.50) K/uL Lymph # (Auto) (1.20-3.40) K/uL [place] # (Auto) (0.11-0.59) K/uL Eos # (Auto) (0.00-0.50) K/uL Baso # (Auto) (0.00-0.20) K/uL Immature Gran # (Auto) (0.01-0.20) K/uL PT INR APTT PTT Ratio Sodium (136-145) mmol/L Potassium (3.5-5.1) mmol/L Chloride (98-107) mmol/L Carbon Dioxide (21-32) mmol/L Anion Gap (3-11) BUN (6-23) mg/dl Creatinine (0.6-1.2) mg/dl Est Cr Clr Drug Dosing ml/min Est GFR ( Amer) ml/min Est GFR (Non-Af Amer) ml/min BUN/Creatinine Ratio (10-20) Glucose (70-99(Fasting)) mg/dl POC Glucose 109 H (70-99) mg/dl Calcium (8.6-10.3) mg/dl Phosphorus (2.5-4.9) mg/dl Magnesium (1.7-2.4) mg/dl Total Bilirubin (0.2-1.0) mg/dl Direct Bilirubin (0-0.2) mg/dl AST (13-39) U/L ALT (7-52) U/L Alkaline Phosphatase (34-104) U/L Total Protein (6.0-8.3) gm/dl Albumin (3.4-5.0) gm/dl Lipase (11-82) U/L Urine Color Yellow Urine Appearance Cloudy A (Clear) Urine pH 6.0 (4.5-7.5) Ur Specific [place] 1.009 (1.000-1.030) Urine Protein Negative (Negative) Urine Glucose (UA) Negative (Negative) Urine Ketones Negative (Negative) Urine Blood 1+ H (Negative) Urine Nitrite Negative (Negative) Urine Bilirubin Negative (Negative) Urine Urobilinogen Negative (Negative) Ur Leukocyte Esterase 2+ H (Negative) Urine WBC (Auto) >50 H (0-5) /hpf Urine RBC (Auto) 6-10 H (0-2) /hpf U Hyaline Cast (Auto) 0-2 (0-2) /lpf U Epithel Cells (Auto) 0-2 (0-2) /hpf Urine Bacteria (Auto) 1+ H (None Seen) Ur Random Creatinine 47.3 mg/dl U Random Total Protein 18.6 H (0-11.9) mg/dl Protein/Creatinin Ratio 0.4 H (0-0.2) Blood Type Antibody Screen Administered Medications Heparin Sodium/Dextrose (Heparin Sodium/Dextrose) 25,000 units in 500 mls @ 20 mls/hr IV .Q24H [facility]; Protocol Stop: 12/03/23 17:44 Last Admin: 11/03/23 20:56 Dose: 1,000 units/hr, 20 mls/hr Documented By: SHAAN Co-signed By: TITI Insulin Aspart (Insulin Aspart Per Unit Charge) 0 units SC ACHS [facility] Stop: 12/03/23 20:59 Last Admin: 11/03/23 21:00 Dose: Not Given Documented By: SHAAN Insulin Glargine (Lantus Per Unit Charge) 10 units SQ HS [facility] Stop: 12/03/23 20:59 Last Admin: 11/03/23 21:03 Dose: 10 units Documented By: SHAAN Co-signed By: TITI Imaging Data Radiologist's Impression: Chest X-Ray 11/03/23 15:55 XR chest 1V portable HISTORY: 78 years-old Female anemia, renal failure acute shortness of breath with renal failure COMPARISON: 10/11/2023 TECHNIQUE: AP view of the chest FINDINGS: Cardiac silhouette is enlarged. Left subclavian pacer/AICD. Status post removal of the right IJ central venous catheter. Left shoulder arthroplasty. Small pleural effusions with mild bibasilar atelectasis. Pulmonary vascular congestion. IMPRESSION: 1. Cardiomegaly with pulmonary vascular congestion. 2. Small pleural effusions with mild bibasilar opacities, similar to prior suggestive of atelectasis. ACT 112: Negative or not required by law. The above report was generated using voice recognition software. It may contain grammatical, syntax or spelling errors. Electronically signed by: Haseeb Steiner M.D. 11/03/2023 5:05 PM Discharge Plan Visit Data Chief Complaint: Abnormal Labs/Diagnostic Testing ED Provider: Peña Noel Discharge Problem: ARF (acute renal failure), Anemia, Pedal edema, Acute UTI Patient Disposition: Admitted As Inpatient Condition: Fair Forms Stand Alone Forms: [facility], Important Visit Information Prescriptions Prescriptions: No Action (DME) Hospital Bed Misc See Rx Instructions .Route Qty: 1 0RF Rx Instructions: Semi-electric hospital bed with mattress and side rails carvedilol 25 mg tablet 25 mg PO BID Qty: 180 3RF Rx Instructions: must administer with a meal/food (DME) Accu-Chek Garima Plus test strp Strip See Rx Instructions .ROUTE .MEDSUPPLY Qty: 100 3RF Rx Instructions: Check blood sugars once PRN (DME) pen needle, diabetic [BD Jaimee 2nd Gen Pen Needle] 32 gauge x 5/32" needle See Rx Instructions .Route Qty: 200 11RF Rx Instructions: use for injections 4x daily, change with each use azelastine 137 mcg (0.1 %) aerosol,spray 2 spray INTRANASAL DAILY PRN (Reason: ALLERGIES) Qty: 30 0RF calcitriol 0.5 mcg capsule 0.5 mcg PO QAM acyclovir 400 mg tablet 400 mg PO QAM lenalidomide [Revlimid] 10 mg capsule 10 mg PO QAM Rx Instructions: 3 weeks on, 1 week off. (DME) FreeStyle Rafa 3 Sensor Device See Rx Instructions .Route Qty: 2 11RF Rx Instructions: change sensor every 14 days atorvastatin 40 mg tablet 40 mg PO HS Qty: 90 3RF (DME) blood-glucose meter [Accu-Chek Garima Plus Meter] Misc See Rx Instructions .ROUTE .MEDSUPPLY Rx Instructions: Used to check blood sugars once PRN prednisone 5 mg tablet 5 mg PO QAM Qty: 90 3RF duloxetine [Cymbalta] 60 mg capsule,delayed release(DR/EC) 60 mg PO QAM Qty: 90 3RF albuterol sulfate 90 mcg/actuation HFA aerosol inhaler 2 puff inhalation Q6H PRN (Reason: shortness of breath or wheezing) Qty: 8.5 2RF betamethasone valerate 0.1 % cream 1 applic TOPICAL BID PRN (Reason: PSORIASIS ) Rx Instructions: Apply to areas of the arms twice daily for up to 2 weeks as needed for flaring. omega 3-ifq-kau-fish oil [Fish Oil] 1,000 mg (120 mg-180 mg) Capsule 1,000 mg PO AMHS magnesium oxide 400 mg magnesium Tablet 400 mg PO AMHS Trulicity 1.5 mg/0.5 mL pen injector 1.5 mg subcut WK Rx Instructions: Inject 1.5 mg into the abdomen once weekly. acetaminophen [Tylenol Arthritis Pain] 650 mg Tablet Extended Release 1,300 mg PO AMHS mirtazapine 7.5 mg tablet 7.5 mg PO HS levothyroxine 137 mcg tablet 137 mcg PO QAM potassium chloride [Klor-Con M20] 20 mEq tablet,ER particles/crystals 20 meq PO AMHS ferrous sulfate 325 mg (65 mg iron) tablet 325 mg PO QAM lansoprazole 30 mg capsule,delayed release(DR/EC) 30 mg PO QAM montelukast [Singulair] 10 mg tablet 10 mg PO QAM insulin glargine [Lantus Solostar U-100 Insulin] 100 unit/mL (3 mL) insulin pen 10 unit subcut HS protein supplement Liquid 1 ea PO BID Rx Instructions: 30 ml two times a day albuterol sulfate 2.5 mg /3 mL (0.083 %) Solution For Nebulization 2.5 mg INHALATION Q4H PRN (Reason: Wheezing) cholestyramine (with sugar) 4 gram powder 1 ea PO BID PRN (Reason: Diarrhea) Rx Instructions: 4 gm doses digoxin 125 mcg (0.125 mg) tablet 125 mcg PO QAM Eliquis 5 mg tablet 5 mg PO AMHS Saccharomyces boulardii [Florastor] 250 mg Capsule 250 mg PO QAM multivitamin Tablet 1 tab PO .DAILY IN AFTERNOON fluticasone propion-salmeterol [Wixela Inhub] 250-50 mcg/dose Blister With Device 2 inh INHALATION Q12H sodium bicarbonate 650 mg Tablet 650 mg PO TID oxycodone 5 mg Tablet 5 mg PO Q6 PRN (Reason: pain 1-7) oxycodone 5 mg Tablet 10 mg PO Q6 PRN (Reason: pain 8-10) ondansetron 4 mg Tablet,Disintegrating 4 mg PO Q6 PRN (Reason: chemo associated n/v) ondansetron 4 mg Tablet,Disintegrating 4 mg PO AMHS Rx Instructions: chemotherapy associated n/v calcium carbonate-vitamin D3 600 mg-10 mcg (400 unit) tablet 1 tab PO BID amiodarone 200 mg tablet 200 mg PO AMHS ciprofloxacin HCl 0.3 % drops 5 drp OPL AMHS Rx Instructions: take for 14 days ..start 10/27/2023..end date 11/09/22 after morning dose Referrals Referrals: Jigna Jovle DO [Physician] - Discharge Problem: ARF (acute renal failure) Qualifiers: Acute renal failure type: unspecified Qualified Code(s): N17.9 - Acute kidney failure, unspecified Anemia Qualifiers: Anemia type: unspecified type Qualified Code(s): D64.9 - Anemia, unspecified
--- NOTE | 2023-11-03 16:40 | History & Physical Report ---
Date of Service November 03, 2023 Assessment & Plan (1) CKD (chronic kidney disease) stage 4, GFR 15-29 ml/min: Plan: Progressive CKD - Admission she has potassium 4.8 with elevated creatinine 5.1. - Creatinine was with recent trough of 2.14 on 09/17, [place] [facility] [place] 3.0, and has up trended to 4.1 over the last week. Mild volume overload without hypoxia or hyperkalemia. Chest x-ray is without significant pulmonary edema. [facility] for concern of impending need for dialysis Nephrology consulted. If she does not show improvement and progresses to dialysis will need vascular consultation both for temporary catheter and fistula evaluation. NPO at 0000. Appreciate recs. - Renal US ordered Bumex held Lenalidomide held Admitted to PCU, BMP every 4 hours She is not oliguric/anuric day of admission (2) Multiple myeloma: Plan: Multiple Myeloma Under treatment [facility] with Dr. Porter. Patient does not know which agent she is on, per chart review has been on lenalidomide. Approximate 4% incidence of renal failure associated with this, will hold at this Point no leukocytosis, hemoglobin 8.4 near her baseline on admission without any cli nical signs of bleeding, platelet count 165 (3) Type II diabetes mellitus: Plan: Type II DM Continue insulin glargine 20 units at bedtime, SSI Goal BSG [id number] [facility] Pharmacy glycemic consult in due to DM2 on insulin with progression of CKD (4) Asthma: Plan: Asthma Albuterol as needed No acute exacerbation (5) GERD (gastroesophageal reflux disease): Plan: GERD Continue PPI daily (6) Atrial flutter: Plan: Paroxysmal A-fib Continue digoxin Level pending Apixaban temporarily held patient to be converted to heparin gtt. at time of next dose due to potential need for dialysis access/procedures during admission Continue amiodarone Continue carvedilol (7) Heart failure with improved ejection fraction (HFimpEF): Plan: Heart failure with last EF approximately 30% With AICD No evidence of overt pulmonary edema on admission, does have some unchanged basilar effusions and pulmonary congestion No chest pain No signs of acute CHF decompensation Plan Chronic stable issues: Depression/anxiety: Continue duloxetine DVT prophylaxis: Anticoagulated Diet: Renal/DM2 Disposition: PCU CODE STATUS: Full code History of Present Illness Primary Care Provider: NO PCP Ireen is a 78-year-old female with past medical history of A-fib on Eliquis, CKD 4, nonischemic cardiomyopathy with biventricular AICD, multiple myeloma, hypothyroidism, cecal volvulus s/p ileocecectomy, hypertension, psoriatic arthritis, DM 2, and recent ICU admission 10/11/2023 for septic SSTI with shock requiring multiple vasopressors for which [place] was [place] [facility] [place] required [place] which was subsequently able to be discontinued. That hospitalization was complicated by small bowel obstruction which improved with medical treatment/NGT. Completed antibiotics. Third, hemodialysis was not required, and she progressed to discharge from that facility on 10/27/2023 Patient seen at bedside. She reports that she was not told that her labs are abnormal she will not know anything was wrong, and she feels great. She reports her legs were freshly wrapped and dressed with wound care this morning. She has not had any recent fever, chills, sweats, lightheadedness, dizziness, chest pain, chest pressure. No dysuria. She has been peeing normally and had light-colored urinary output this morning. She has no muscle aches or pains. Endorses chronic swelling/pitting edema in her lower extremities which has not changed in the last week. Denies orthopnea/dyspnea She reports after her admission to [place] which involved 2 sessions of dialysis, she subsequently completed antibiotics and [facility] where she feels she has been doing well overall. He is taking all medications as directed, although does not know what these are she just takes what is provided to her by [facility]. She did take her medications this morning. Full code, would want dialysis if her renal function were continuing decline or if there is any emergent indication for this. Patient is under [facility]. Does not know the name of the medication she is taking for this, but believes she is seen Dr. Porter. Medical History: Reviewed Medications: Reviewed Surgical History: Reviewed Family history: Reviewed Allergies: Reviewed Social History: Reviewed Denies tobacco/etoh use Code Status: Full Allergies Allergy/AdvReac Type Severity Reaction Status Date / Time codeine Allergy Severe Anaphylaxis Verified 10/11/23 15:03 celecoxib [From Celebrex] Allergy Intermediate RASH Verified 10/11/23 15:03 cephalexin [From Keflex] Allergy Intermediate Rash Verified 10/11/23 15:03 hydrocodone Allergy Intermediate Rash Verified 10/11/23 15:03 Iodinated Contrast Media Allergy Intermediate RASH Verified 10/11/23 15:03 nickel Allergy Intermediate Rash Verified 10/11/23 15:03 oxycodone Allergy Intermediate Rash Verified 10/11/23 15:03 Sulfa (Sulfonamide Allergy Intermediate RASH TO Verified 10/11/23 15:03 Antibiotics) SULFA DRUGS tetracycline Allergy Intermediate RASH Verified 10/11/23 15:03 capsaicin AdvReac Intermediate CREATINE Verified 10/11/23 15:03 ELEVATION diclofenac AdvReac Intermediate CREATINE Verified 10/11/23 15:03 ELEVATION propylene glycol AdvReac Intermediate CREATINE Verified 10/11/23 15:03 ELEVATION "PREP WITH BLUE DYE" Allergy Intermediate Rash Uncoded 10/11/23 15:03 Home Medications Medication Instructions Recorded Confirmed Type magnesium oxide 400 mg PO AMHS 07/26/18 11/03/23 History omega [id number]-fish oil 1,000 mg 1,000 mg PO AMHS 07/26/18 11/03/23 History (120 mg-180 mg) capsule (Fish Oil) betamethasone valerate 0.1 % 1 applic topical BID PRN PSORIASIS 11/30/19 11/03/23 History topical cream blood-glucose meter (Accu-Chek 02/12/21 10/09/23 History Garima Plus Meter) albuterol sulfate 90 mcg/actuation 2 puff inhalation Q6H PRN 09/30/22 11/03/23 Rx aerosol inhaler shortness of breath or wheezing #8.5 grams acetaminophen 650 mg 1,300 mg PO AMHS 01/20/23 11/03/23 History tablet,extended release (Tylenol Arthritis Pain) Hospital Bed [facility] ([facility]ospital [facility] ea 03/03/23 10/09/23 Rx Bed) calcitriol 0.5 mcg capsule 0.5 mcg PO QAM 03/23/23 11/03/23 History atorvastatin 40 mg tablet 40 mg PO HS #90 tabs 04/15/23 11/03/23 Rx dulaglutide 1.5 mg/0.5 mL 1.5 mg subcut WK 04/15/23 11/03/23 History subcutaneous pen injector (Trulicity) duloxetine 60 mg capsule,delayed 60 mg PO QAM #90 caps 04/24/23 11/03/23 Rx release (Cymbalta) prednisone 5 mg tablet 5 mg PO QAM #90 tabs 04/24/23 11/03/23 Rx carvedilol 25 mg tablet 25 mg PO BID #180 tabs 06/22/23 11/03/23 Rx mirtazapine 7.5 mg tablet 7.5 mg PO HS 07/01/23 11/03/23 History blood sugar diagnostic (Accu-Chek #100 ea 07/16/23 10/09/23 Rx Garima Plus test strips) acyclovir 400 mg tablet 400 mg PO QAM 08/24/23 11/03/23 History lenalidomide 10 mg capsule 10 mg PO QAM 08/24/23 11/03/23 History (Revlimid) blood-glucose sensor (FreeStyle #2 ea 08/25/23 10/09/23 Rx Rafa 3 Sensor device) pen needle, diabetic 32 gauge x #200 ea 09/09/23 10/09/23 Rx 5/32" (BD Jaimee 2nd Gen Pen Needle) ferrous sulfate 325 mg (65 mg 325 mg PO QAM 09/15/23 11/03/23 History iron) tablet insulin glargine 100 unit/mL (3 10 unit subcut HS 09/15/23 11/03/23 History mL) subcutaneous pen (Lantus Solostar U-100 Insulin) lansoprazole 30 mg capsule,delayed 30 mg PO QAM 09/15/23 11/03/23 History release levothyroxine 137 mcg tablet 137 mcg PO QAM 09/15/23 11/03/23 History montelukast 10 mg tablet 10 mg PO QAM 09/15/23 11/03/23 History (Singulair) potassium chloride 20 mEq 20 meq PO AMHS 09/15/23 11/03/23 History tablet,extended release(part/cryst) (Klor-Con M) azelastine 137 mcg (0.1 %) nasal 2 spray intranasal DAILY PRN 09/30/23 11/03/23 Rx spray aerosol ALLERGIES #30 mL amiodarone 200 mg tablet 200 mg PO AMHS 10/11/23 11/03/23 History calcium carbonate 600 mg-vitamin 1 tab PO BID 10/11/23 11/03/23 History D3 10 mcg (400 unit) tablet ciprofloxacin HCl 0.3 % eye drops 5 drp OPL AMHS 10/11/23 11/03/23 History Saccharomyces boulardii 250 mg 250 mg PO QAM 11/03/23 11/03/23 History capsule (Florastor) albuterol sulfate 2.5 mg/3 mL 2.5 mg inhalation Q4H PRN Wheezing 11/03/23 11/03/23 History (0.083 %) solution for nebulization apixaban 5 mg tablet (Eliquis) 5 mg PO AMHS 11/03/23 11/03/23 History cholestyramine (with sugar) 4 gram 1 ea PO BID PRN Diarrhea 11/03/23 11/03/23 H istory oral powder digoxin 125 mcg (0.125 mg) tablet 125 mcg PO QAM Atrial fibrillation 11/03/23 11/03/23 History fluticasone 250 mcg-salmeterol 50 2 inh inhalation Q12H 11/03/23 11/03/23 His tory mcg/dose blistr powdr for inhalation (Wixela Inhub) multivitamin 1 tab PO .DAILY IN AFTERNOON 11/03/23 11/03/23 History ondansetron 4 mg disintegrating 4 mg PO AMHS 11/03/23 11/03/23 History tablet ondansetron 4 mg disintegrating 4 mg PO Q6 PRN chemo associated n/v 11/03/23 11/03/23 History tablet oxycodone 5 mg tablet 5 mg PO Q6 PRN pain 1-7 11/03/23 11/03/23 History oxycodone 5 mg tablet 10 mg PO Q6 PRN pain 8-10 11/03/23 11/03/23 History protein supplement 1 ea PO BID 11/03/23 11/03/23 History sodium bicarbonate 650 mg tablet 650 mg PO TID 11/03/23 11/03/23 History Past Med/Surg History Problem List Atrial flutter Lactic acidosis Elevated lactic acid level (Acute) Elevated liver enzymes (Acute) JULIO (acute kidney injury) (Acute) Cellulitis of left lower extremity (Acute) Septic shock Cellulitis Hypervolemia associated with renal insufficiency Recurrent serous otitis media of left ear Mixed hearing loss, bilateral Dysfunction of both eustachian tubes Heart failure with improved ejection fraction (HFimpEF) On amiodarone therapy ICD (implantable cardioverter-defibrillator), biventricular, in situ Cardiac pacemaker Recurrent pleural effusion Hypokalemia Asthma Nonischemic cardiomyopathy Hypermagnesemia Paroxysmal ventricular tachycardia Status post placement of cardiac pacemaker Post laminectomy syndrome Hyperlipidemia associated with type 2 diabetes mellitus Submandibular sialoadenitis Hypertension Chronic rhinitis Chronic anticoagulation (Acute) Psoriatic arthritis S/P right colectomy Generalized osteoarthritis Lumbar canal stenosis Pulmonary nodule Right asymmetrical SNHL Stenosis, cervical spine (Chronic) Vitamin D deficiency (Chronic) Depression (Chronic) Psoriasis (Chronic) Peptic ulcer disease (Chronic) GERD (gastroesophageal reflux disease) (Chronic) Esophageal spasm (Chronic) Multiple myeloma currently getting chemo CKD (chronic kidney disease) stage 4, GFR 15-29 ml/min baseline creatinine 2.0-2.2 range; nephrology (Dr. Stevenson) monitoring Spinal meningioma On c-spine- follows with [facility] specialist (Dr. Ken)- under surveillance/stable/no indication for surgical intervention, last seen Summer 2022 Hypothyroidism Type II diabetes mellitus (Unknown) IDDM Iron deficiency anemia Allergic rhinitis Medical History Paroxysmal atrial fibrillation follows with Dr. Mitchell on eliquis bid Hx of colonic polyps Hx of congestive heart failure Hx of tachycardia-bradycardia syndrome s/p ICD Hx of ventricular tachycardia Hx of pulmonary edema Hx of pleural effusion required thoracentesis x 3 Hx of esophageal spasm Hx of non-ST elevation myocardial infarction (NSTEMI) (~01/2023) post pacer placement, then went back for pacer/defib placement Cardiomyopathy Active asthma inhaler daily/prn, nebulizer prn Chronic dyspnea On anticoagulant therapy eliquis bid Chronic steroid use FOR PSORITRIC ARTHRITIS Esophageal dysmotility Hyperlipidemia Hearing loss, right DEAF RIGHT EAR Hiatal hernia longterm current use of systemic steroids for psoriatic arthritis Obesity Polyneuropathy Schatzki's ring HTN (hypertension) Peptic ulcer disease Irritable bowel syndrome Psoriatic arthropathy GERD (gastroesophageal reflux disease) CONTROLLED WITH MEDS Surgical History History of thoracentesis x3 Hx of colonoscopy with polypectomy History of bone marrow biopsy (~04/2023) Hx of bilateral cataract extraction Presence of biventricular implantable cardioverter-defibrillator (ICD) History of laparoscopy (~06/2020) exploratory after colectomy @ [facility] [place] History of colectomy (~06/2020) @ [facility] [place] History of total left hip arthroplasty (~12/2019) History of total hip arthroplasty (~2019) x2 RIGHT 05/27/19. Complicated by post-op seroma requiring multiple needle aspirations. LEFT HIP 01/10/20 History of dilatation and curettage History of tooth extraction History of tonsillectomy and adenoidectomy History of cardiac cath X2; firts cath ~2008 (NO STENTS),symptoms of heartburn, [facility] second cath at [facility] 02/14 after epidsode of V-Tach, no stents, sees Dr. Granados History of arthroscopy RT/LEFT KNEE Status post total replacement of left shoulder History of esophagogastroduodenoscopy (EGD) History of total abdominal hysterectomy and bilateral salpingo-oophorectomy History of arthroscopy of right shoulder (~09/2018) History of total knee arthroplasty RIGHT History of foot surgery RT FOOT FUSION History of cholecystectomy History of lumbar fusion H/O thyroidectomy Family History Mother Arthritis Hypertension Father Lung cancer Hypertension Family/Other Family hx of colon cancer 1st cousin Unknown Allergies Breast cancer Hypertension Brother Cancer Heart disease Aunt Colorectal cancer Other No family history of adverse response to anesthesia No family history of bleeding disorder Denies family history of Ovarian cancer Prostate cancer Diabetes Hearing loss Myocardial infarction Stroke Asthma Social History Smoking Status: Never smoker Tobacco Type: Cigarettes Age Quit Using Tobacco: 26; Cigarettes Per Day: 1/2 PPD; Second Hand Exposure: No; Do You Dip or Chew Tobacco: No; Hx Alcohol Use: No Hx Substance Use: No Preferred Language: Bahamian Communication Ability: Effective Communication Ability Comment: DEAF RIGHT EAR Visual Impairment: No Limitations 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 NAD. Cooperative. HEENT: Atraumatic, normocephalic. Vision/hearing intact Pulm: CTAB A&P. -wheezes, -rales, -rhonchi. Symmetrical chest rise. No increased work of breathing. No respiratory distress. Cardiac: RRR, -mrg. Radial pulses intact and symmetrical. Abdominal: Nontender, nondistended, soft. BS present. Ext: Bilateral LE pitting edema, legs wrapped and freshly dressed. Results & Data Results & Data Vital Signs (Past 12 Hours) Vital Signs Temp Pulse Resp BP Pulse Ox O2 Del Method 11/03/23 15:37 75 11/03/23 15:20 36.4 C L 71 24 114/63 93 Room Air PG Care Time/CCT Total # of Minutes Spent Total Time Spent with Patient: Total time spent is greater than 50% in coordination of care (as documented) at patient's floor/unit and/or counseling patient: Coding Level of Care Code 55533 INT INP/OBS CARE 3/75MIN Diagnoses CKD (chronic kidney disease) stage 4, GFR 15-29 ml/min N18.4 Multiple myeloma C90.00 Type 2 diabetes mellitus with stage 4 chronic kidney disease, without long-term current use of insulin E11.22; N18.4 Chronic kidney disease stage: stage 4 (severe) 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 complication detail: with chronic kidney disease 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 complication status: with kidney complications 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 insulin use: without mcc use Asthma J45.909 Gastroesophageal reflux disease, esophagitis presence not specified K21.9 Esophagitis presence: esophagitis presence not specified Atrial flutter I48.92 Heart failure with improved ejection fraction (HFimpEF) I50.32 (3) Type II diabetes mellitus Chronic kidney disease stage: stage 4 (severe) 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 complication detail: with chronic kidney disease 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 complication status: with kidney complications 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 mcc insulin use: without mcc use Qualified Code(s): E11.22 - Type 2 diabetes mellitus with diabetic chronic kidney disease; N18.4 - Chronic kidney disease, stage 4 (severe) (5) GERD (gastroesophageal reflux disease) Esophagitis presence: esophagitis presence not specified Qualified Code(s): K21.9 - Gastro-esophageal reflux disease without esophagitis
--- NOTE | 2023-11-03 17:07 | XRay Report ---
XR chest 1V portable HISTORY: 78 years-old Female anemia, renal failure acute shortness of breath with renal failure COMPARISON: 10/11/2023 TECHNIQUE: AP view of the chest FINDINGS: Cardiac silhouette is enlarged. Left subclavian pacer/AICD. Status post removal of the right IJ centr al venous catheter. Left shoulder arthroplasty. Small pleural effusions with mild bibasilar atelectas is. Pulmonary vascular congestion. IMPRESSION: 1. Cardiomegaly with pulmonary vascular congestion. 2. Small pleural effusions with mild bibasilar opacities, similar to prior suggestive of atelectasis. ACT 112: Negative or not required by law. The above report was generated using voice recognition software. It may contain grammatical, syntax o r spelling errors. Electronically signed by: Haeseb Steiner M.D. 11/03/2023 5:05 PM
--- NOTE | 2023-11-03 17:15 | Electrocardiogram Report ---
Test Reason : Blood Pressure : / mmHG Vent. Rate : 070 BPM Atrial Rate : 258 BPM P-R Int : 000 ms QRS Dur : 130 ms QT Int : 396 ms P-R-T Axes : 229 012 194 degrees QTc Int : 427 ms Ventricular-paced rhythm Abnormal ECG When compared with ECG of 11-OCT-2023 13:13, No significant change was found Confirmed by Lukasz Schilling ([id number]) on 11/03/2023 5:15:35 PM Referred By: Confirmed By:Jorge Schilling
[2023-11-03] MEDS ORDERED: CARBOHYDRATES FOR HYPOGLYCEMIA PO PRN (17:22)
[2023-11-03] MEDS ORDERED: PHARMACY GLYCEMIC MGMT CONSULT PRN (17:22)
[2023-11-03] MEDS ORDERED: DEXTROSE 50% 50 ML SYRINGE IV PRN (17:22)
[2023-11-03] MEDS ORDERED: GLUCAGON FOR INJ 1 MG VIAL SQ PRN (17:22)
[2023-11-03] MEDS ORDERED: GLUCOSE 40% GEL 15 GM TUBE PO PRN (17:22)
[2023-11-03] MEDS ORDERED: GLUCOSE 10 TAB/TUBE PO PRN (17:22)
[2023-11-03] MEDS ORDERED: Heparin IV Adult Wt-Based Low-Dose *NO* INITIAL Bolus Protocol IV SCH ×3 (17:30→21:00)
[2023-11-03 18:33] LABS: INR 1.2 (0.9-1.1); Partial Thromboplastin Ratio 1.5; Partial Thromboplastin Time 40 Seconds (21-31)
[2023-11-03 19:29] LABS: Creatinine Urine Random 47.3 mg/dl; Protein Creatinine Ratio Urine 0.4 (0-0.2); Total Protein Urine Random 18.6 mg/dl (0-11.9)
[2023-11-03 19:46] LABS: Appearance Urine Cloudy (Clear); Bacteria Urine Automated 1+ (None Seen); Bilirubin Urine Negative (Negative); Blood Urine 1+ (Negative); Cast Urine Automated 0-2 /lpf (0-2); Color Urine Yellow; Epithelial Cell Urine Auto 0-2 /hpf (0-2); Glucose Urine UA Negative (Negative); Ketones Urine Negative (Negative); Leukocyte Esterase Urine 2+ (Negative); Nitrite Urine Negative (Negative); Protein Urine Negative (Negative); Specific Gravity Urine 1.009 (1.000-1.030); Urobilinogen Urine Negative (Negative); WBC Urine Automated >50 /hpf (0-5)
[2023-11-03] MEDS: HEPARIN SODIUM/DEXTROSE 25,000 UNITS/500 ML BAG IV SCH (20:56)
[2023-11-03] MEDS: INSULIN ASPART PER UNIT CHARGE SC SCH (21:00)
[2023-11-03] MEDS: LANTUS PER UNIT CHARGE SQ SCH (21:03)
--- NOTE | 2023-11-03 23:11 | Ultrasound Report ---
Exam(s): US RENAL EXAM: US Retroperitoneal Limited, Renal CLINICAL HISTORY: Reason for exam: progressive renal failure. TECHNIQUE: Real-time limited ultrasound of the retroperitoneum with image documentation. COMPARISON: 02/10/2023 FINDINGS: Other vasculature: 2 cm echogenic structure within the spleen with subtle vascularity. Right kidney: Right kidney measures 9.4 x 4.4 x 4.1 cm. No stones. No hydronephrosis. Left kidney: Left kidney is not visualized on this exam. Pleural space: Left pleural effusion. Other findings: There is a 14.6 x 11.7 x 11.5 cm heterogeneous mass within the left upper quadrant. IMPRESSION: 1. Nonvisualization of the left kidney. There is a 14.6 cm mass within the left upper quadrant. This is new and incompletely evaluated on this exam underlying mass cannot be entirely excluded. Dedicated postcontrast CT of the abdomen and pelvis recommended for further evaluation. 2. Left pleural effusion Electronically signed by: Kirk Lott MD 11/03/23 23:09 PM
[2023-11-04] MEDS ORDERED: ALBUTEROL 0.083% NEBU SOLN 3 ML VIAL INH PRN (00:16)
[2023-11-04] MEDS: ATORVASTATIN 40 MG TAB PO SCH (02:03)
[2023-11-04] MEDS: MIRTAZAPINE TAB 15 MG TAB PO SCH (02:04)
[2023-11-04] MEDS: SODIUM BICARBONATE 650 MG TAB PO SCH (02:04)
[2023-11-04] MEDS: AMIODARONE 200 MG TAB PO SCH (02:05)
[2023-11-04] MEDS: POTASSIUM CHLORIDE CRTAB 20 MEQ TABCR PO SCH (02:06)
[2023-11-04] MEDS: MAGNESIUM OXIDE 400 MG TAB PO SCH (02:06)
[2023-11-04] MEDS: OMEGA-3 (PURIFIED FISH OIL) 1 GM CAP PO SCH (02:08)
[2023-11-04] MEDS: CIPROFLOXACIN HCL 0.3% OP SOLN 2.5 ML BTL OTL SCH (02:11)
[2023-11-04] MEDS: carvediloL 25 MG TAB PO SCH (02:11)
[2023-11-04] MEDS: FLUTICASONE/VILANTEROL 200/25MCG 14 PUFFS/INHALER INH SCH (02:11)
[2023-11-04 03:57] LABS: Basophils # (auto) 0.02 K/uL (0.00-0.20); Basophils % (auto) 0.4 %; Eosinophils # (auto) 0.15 K/uL (0.00-0.50); Hematocrit (blood only) 24.4 % (37.0-47.0); Hemoglobin 7.5 g/dl (12.0-16.0); Immature Granulocytes # (auto) 0.07 K/uL (0.01-0.20); Immature Granulocytes % (auto) 1.4 %; Lymphocytes # (auto) 0.61 K/uL (1.20-3.40); Lymphocytes % (auto) 12.2 %; Mean Corpuscular Hemoglobin 32.2 pg (25.0-34.0); Mean Corpuscular Hgb Conc 30.7 g/dL (32.0-36.0); Mean Corpuscular Volume 104.7 fL (80.0-100.0); Mean Platelet Volume 12.1 fL (9.4-12.4); Monocytes # (auto) 0.16 K/uL (0.11-0.59); Monocytes % (auto) 3.2 %; Neutrophils # (auto) 4.01 K/uL (1.40-6.50); Neutrophils % (auto) 79.8 %; Platelet Count 158 K/uL (130-400); RDW Coefficient of Variation 17.9 % (11.5-14.5); RDW Standard Deviation 68.1 fL (36.4-46.3); Red Blood Count 2.33 M/uL (4.20-5.40); White Blood Count 5.02 K/ul (4.8-10.8)
[2023-11-04 03:59] LABS: BUN Creatinine Ratio 8.9 (10-20); Calcium 7.5 mg/dl (8.6-10.3); Creatinine Clr Calc Pharmacy 13.3 ml/min; Est GFR (African American) 9.1 ml/min; Est GFR (Non-African American) 7.8 ml/min; Potassium 4.5 mmol/L (3.5-5.1)
[2023-11-04 04:21] LABS: Polychromasia 1+
[2023-11-04 04:29] LABS: ANTI-Xa, UFH(UnfractionatedHep > 1.50 IU/ml (0.3-0.7)
[2023-11-04] MEDS: LEVOTHYROXINE SODIUM 137 MCG TABLET PO SCH (05:48)
[2023-11-04] MEDS: INSULIN ASPART PER UNIT CHARGE SC SCH ×2 (05:48→13:10)
[2023-11-04 06:41] LABS: ANTI-Xa, UFH(UnfractionatedHep > 1.50 IU/ml (0.3-0.7)
[2023-11-04 07:41] LABS: ANTI-Xa, UFH(UnfractionatedHep > 1.50 IU/ml (0.3-0.7)
[2023-11-04] MEDS: MONTELUKAST SODIUM 10 MG TABLET PO SCH (07:58)
[2023-11-04] MEDS: predniSONE 5 MG TAB PO SCH (07:59)
[2023-11-04] MEDS: LANSOPRAZOLE 30 MG SOLTAB PO SCH (08:00)
[2023-11-04] MEDS: DULoxetine HCL 60 MG CAP PO SCH (08:02)
[2023-11-04] MEDS: FERROUS SULFATE 325 MG TAB PO SCH (08:02)
[2023-11-04] MEDS: CALCITRIOL 0.25 MCG CAPSULE PO SCH (08:04)
[2023-11-04] MEDS: ACYCLOVIR 400 MG TAB PO SCH (08:06)
[2023-11-04 09:10] LABS: ANTI-Xa, UFH(UnfractionatedHep > 1.50 IU/ml (0.3-0.7)
--- NOTE | 2023-11-04 10:42 | Nephrology Consultation ---
Date of Consultation November 04, 2023 Assessment & Plan (1) JULIO (acute kidney injury): (2) Anemia: (3) Pedal edema: (4) Cellulitis of left lower extremity: (5) Nonischemic cardiomyopathy: Plan 78 yo F with stage 3B/4 CKD, b/l cr 2.0 to 2.4, recent dialysis requiring acute kidney injury, had CRRT x 2 sessions in the setting of sepsis with lower extremity cellulitis. She was discharged to [facility] from [facility] on 10/27/2023. Kidney function noted to have improved after 2 sessions of CRRT and on discharge creatinine was 3.0. However since discharge outpatient labs showing progressive worsening of kidney function. On admission creatinine was 5.1, electrolyte acceptable. Respiratory status acceptable although chest x-ray showing mild pulmonary congestion and small pleural effusion and she her weight is much higher than her baseline weight. She reports decent urine output and p.o. intake but has been having diarrhea. No respiratory distress. Otherwise comfortable on room air. --continue to hold Bumex for now, monitor intake/output, aim for net negative, may need to resume Bumex if remains net positive. No acute indication to resume dialysis on a urgent basis but if progressive worsening of kidney function or electrolyte abnormality may need to resume dialysis. In that case, we will get a tunneled dialysis catheter. -- Check iron study, give a dose of JANELLE Thank you for allowing me to participate in your patient's care. It was a pleasure to see Mike. History of Present Illness Reason for Consultation: JULIO, volume overload, evaluation for potential need to resume dialysis. Attending Physician: Abena Watts MD History of Present Illness Ms. Mike Vergara is a 77-year-old female with PMH of stage 3B/4 CKD, CHF with systolic and diastolic dysfunction, h/o paroxysmal A-fib, tachy-lina syndrome, recent septic shock requiring CRRT, admitted with progressive worsening of kidney function over last few days. Nephrology consult requested for management of JULIO and evaluate for need for dialysis. Electronic medical records reviewed in detail during patient's visit. Demar presented to ER yesterday after outpatient labs showing progressive worsening of kidney function. She was recently admitted to [facility] after she was transferred from [facility] when she had sepsis and required CRRT for 2 sessions. She was taken off of dialysis as kidney function improved. On discharge his creatinine was noted to be 3.0. She has stage IIIb/IV CKD baseline creatinine around 2.0-2.4 prior to recent JULIO and CRRT. She was transferred to [facility] on 10/27/2023. Lab on 10/29/2023 showed further worsening of kidney function to creatinine of 4.0 and lab yesterday showed creatinine 5.1. Creatinine this morning stayed relatively stable at 5.0. Electrolyte acceptable. Renal ultrasound was negative for postrenal obstr uction. Urinalysis with no proteinuria. She has been voiding normally. She reports having diarrhea for the last few days although reports decent urine output and p.o. intake. She denied any shortness of breath or chest pain. Overall she feels well and reports to be at her baseline. She was on Bumex before which has been on hold since 10/28 after outpatient labs showing changes in kidney function. She was diagnosed with multiple myeloma over last few months, has been on lenalidomide which is on hold since admission. Has stage 3B/4 CKD, baseline cr 2.0 to 2.4 mg/dl, EGFR 25 cc/min, secondary to microvascular disease and hypertensive nephrosclerosis. Has low grade proteinuria, UPCR 0.2. Renal US on 02/14/23 showed R kidney 10.1cm, L 10.7cm. Echocardiogram 01/25/23 revealed LVEF 35-40% w/ global hypokinesis, moderate LVH. On 01/29/23 she underwent pacemaker/AICD placement due to episodes of NSVT. She was then hospitalized 02/10/23-02/12/23 due to CHF. She was again readmitted on 03/27/23 with 2 kg weight gain, SOB and recurrent CHF. She reports overall feeling well since she has been at [place] care although reports having diarrhea for last few days. Allergies Allergy/AdvReac Type Severity Reaction Status Date / Time codeine Allergy Severe Anaphylaxis Verified 10/11/23 15:03 celecoxib [From Celebrex] Allergy Intermediate RASH Verified 10/11/23 15:03 cephalexin [From Keflex] Allergy Intermediate Rash Verified 10/11/23 15:03 hydrocodone Allergy Intermediate Rash Verified 10/11/23 15:03 Iodinated Contrast Media Allergy Intermediate RASH Verified 10/11/23 15:03 nickel Allergy Intermediate Rash Verified 10/11/23 15:03 oxycodone Allergy Intermediate Rash Verified 10/11/23 15:03 Sulfa (Sulfonamide Allergy Intermediate RASH TO Verified 10/11/23 15:03 Antibiotics) SULFA DRUGS tetracycline Allergy Intermediate RASH Verified 10/11/23 15:03 capsaicin AdvReac Intermediate CREATINE Verified 10/11/23 15:03 ELEVATION diclofenac AdvReac Intermediate CREATINE Verified 10/11/23 15:03 ELEVATION propylene glycol AdvReac Intermediate CREATINE Verified 10/11/23 15:03 ELEVATION "PREP WITH BLUE DYE" Allergy Intermediate Rash Uncoded 10/11/23 15:03 Home Medications Medication Instructions Recorded Confirmed Type magnesium oxide 400 mg PO AMHS 07/26/18 11/03/23 History omega 0-gax-ouj-fish oil 1,000 mg 1,000 mg PO AMHS 07/26/18 11/03/23 History (120 mg-180 mg) capsule (Fish Oil) betamethasone valerate 0.1 % 1 applic topical BID PRN PSORIASIS 11/30/19 11/03/23 History topical cream blood-glucose meter (Accu-Chek 02/12/21 11/04/23 History Garima Plus Meter) albuterol sulfate 90 mcg/actuation 2 puff inhalation Q6H PRN 09/30/22 11/03/23 Rx aerosol inhaler shortness of breath or wheezing #8.5 grams acetaminophen 650 mg 1,300 mg PO AMHS 01/20/23 11/03/23 History tablet,extended release (Tylenol Arthritis Pain) Hospital [facility] ([facility]ospital [facility] ea 03/03/23 11/04/23 Rx Bed) calcitriol 0.5 mcg capsule 0.5 mcg PO QAM 03/23/23 11/03/23 History atorvastatin 40 mg tablet 40 mg PO HS #90 tabs 04/15/23 11/03/23 Rx dulaglutide 1.5 mg/0.5 mL 1.5 mg subcut WK 04/15/23 11/03/23 History subcutaneous pen injector (Trulicity) duloxetine 60 mg capsule,delayed 60 mg PO QAM #90 caps 04/24/23 11/03/23 Rx release (Cymbalta) prednisone 5 mg tablet 5 mg PO QAM #90 tabs 04/24/23 11/03/23 Rx carvedilol 25 mg tablet 25 mg PO BID #180 tabs 01/29/24 06/11/24 Rx mirtazapine 7.5 mg tablet 7.5 mg PO HS 07/01/23 11/03/23 History blood sugar diagnostic (Accu-Chek #100 ea 07/16/23 11/04/23 Rx Garima Plus test strips) acyclovir 400 mg tablet 400 mg PO QAM 08/24/23 11/03/23 History lenalidomide 10 mg capsule 10 mg PO QAM 08/24/23 11/03/23 History (Revlimid) blood-glucose sensor (FreeStyle #2 ea 08/25/23 11/04/23 Rx Rafa 3 Sensor device) pen needle, diabetic 32 gauge x #200 ea 09/09/23 11/04/23 Rx 5/32" (BD Jaimee 2nd Gen Pen Needle) ferrous sulfate 325 mg (65 mg 325 mg PO QAM 09/15/23 11/03/23 History iron) tablet insulin glargine 100 unit/mL (3 10 unit subcut HS 09/15/23 11/03/23 History mL) subcutaneous pen (Lantus Solostar U-100 Insulin) lansoprazole 30 mg capsule,delayed 30 mg PO [facility] 09/15/23 11/03/23 History release levothyroxine 137 mcg tablet 137 mcg PO [facility] 09/15/23 11/03/23 History montelukast 10 mg tablet 10 mg PO QAM 09/15/23 11/03/23 History (Singulair) potassium chloride 20 mEq 20 meq PO [facility] 09/15/23 11/03/23 History tablet,extended release(part/cryst) (Klor-Con M) azelastine 137 mcg (0.1 %) nasal 2 spray intranasal DAILY PRN 09/30/23 11/03/23 Rx spray aerosol ALLERGIES #30 mL amiodarone 200 mg tablet 200 mg PO [facility] 10/11/23 11/03/23 History calcium carbonate 600 mg-vitamin 1 tab PO BID 10/11/23 11/03/23 History D3 10 mcg (400 unit) tablet ciprofloxacin HCl 0.3 % eye drops 5 drp OPL [facility] 10/11/23 11/03/23 History Saccharomyces boulardii 250 mg 250 mg PO QAM 11/03/23 11/03/23 History capsule (Florastor) albuterol sulfate 2.5 mg/3 mL 2.5 mg inhalation Q4H PRN Wheezing 11/03/23 11/03/23 History (0.083 %) solution for nebulization apixaban 5 mg tablet (Eliquis) 5 mg PO AM[facility] 11/03/23 11/03/23 History cholestyramine (with sugar) 4 gram 1 ea PO BID PRN Diarrhea 11/03/23 11/03/23 History oral powder digoxin 125 mcg (0.125 mg) tablet 125 mcg PO QAM Atrial fibrillation 11/03/23 11/03/23 History fluticasone 250 mcg-salmeterol 50 2 inh inhalation Q12H 11/03/23 11/03/23 History mcg/dose blistr powdr for inhalation (Wixela Inhub) multivitamin 1 tab PO .DAILY IN AFTERNOON 11/03/23 11/03/23 History ondansetron 4 mg disintegrating 4 mg PO AM[facility] 11/03/23 11/03/23 History tablet ondansetron 4 mg disintegrating 4 mg PO Q6 PRN chemo associated n/v 11/03/23 11/03/23 History tablet oxycodone 5 mg tablet 5 mg PO Q6 PRN pain 1-7 11/03/23 11/03/23 History oxycodone 5 mg tablet 10 mg PO Q6 PRN pain 8-10 11/03/23 11/03/23 History protein supplement 1 ea PO BID 11/03/23 11/03/23 History sodium bicarbonate 650 mg tablet 650 mg PO TID 11/03/23 11/03/23 History Patient History Medical History Paroxysmal atrial fibrillation follows with Dr. Mitchell on eliquis bid Hx of colonic polyps Hx of congestive heart failure Hx of tachycardia-bradycardia syndrome s/p ICD Hx of ventricular tachycardia Hx of pulmonary edema Hx of pleural effusion required thoracentesis x 3 Hx of esophageal spasm Hx of non-ST elevation myocardial infarction (NSTEMI) (~01/2023) post pacer placement, then went back for pacer/defib placement Cardiomyopathy Active asthma inhaler daily/prn, nebulizer prn Chronic dyspnea On anticoagulant therapy eliquis bid Chronic steroid use FOR PSORITRIC ARTHRITIS Esophageal dysmotility Hyperlipidemia Hearing loss, right DEAF RIGHT EAR Hiatal hernia MCFP current use of systemic steroids for psoriatic arthritis Obesity Polyneuropathy Schatzki's ring HTN (hypertension) Peptic ulcer disease Irritable bowel syndrome Psoriatic arthropathy GERD (gastroesophageal reflux disease) CONTROLLED WITH MEDS Surgical History History of thoracentesis x3 Hx of colonoscopy with polypectomy History of bone marrow biopsy (~04/2023) Hx of bilateral cataract extraction Presence of biventricular implantable cardioverter-defibrillator (ICD) History of laparoscopy (~06/2020) exploratory after colectomy @ [facility] [facility] History of colectomy (~06/2020) @ [facility] [place] History of total left hip arthroplasty (~12/2019) History of total hip arthroplasty (~2019) x2 RIGHT 05/27/19. Complicated by post-op seroma requiring multiple needle aspirations. LEFT HIP 01/10/20 History of dilatation and curettage History of tooth extraction History of tonsillectomy and adenoidectomy History of cardiac cath X2; firts cath ~2008 (NO STENTS),symptoms of heartburn, [facility] second cath at [facility] 02/14 after epidsode of V-Tach, no stents, sees Dr. Granados History of arthroscopy RT/LEFT KNEE Status post total replacement of left shoulder History of esophagogastroduodenoscopy (EGD) History of total abdominal hysterectomy and bilateral salpingo-oophorectomy History of arthroscopy of right shoulder (~09/2018) History of total knee arthroplasty RIGHT History of foot surgery RT FOOT FUSION History of cholecystectomy History of lumbar fusion H/O thyroidectomy Family History Mother Arthritis Hypertension Father Lung cancer Hypertension Family/Other Family hx of colon cancer 1st cousin Unknown Allergies Breast cancer Hypertension Brother Cancer Heart disease Aunt Colorectal cancer Other No family history of adverse response to anesthesia No family history of bleeding disorder Denies family history of Ovarian cancer Prostate cancer Diabetes Hearing loss Myocardial infarction Stroke Asthma Social History Smoking Status: Never smoker Tobacco Type: Cigarettes Age Quit Using Tobacco: 26; Second Hand Exposure: No; Hx Alcohol Use: No Hx Substance Use: No Preferred Language: Burmese Communication Ability: Effective Visual Impairment: No Limitations Hearing Ability: Development Coach Required: No Beliefs That Will Affect Care: None marital status: / Current Living Situation: Alone and Assisted Current Living Situation Comment: [facility] current occupational status: retired current occupation: Retired How many Children do You have: 0 Other Information That Helps Us Care for You: No Feels Safe at Home: Yes Safety Concerns: Feels Safe At This Time Childhood Exposure to Second-Hand Smoke: Yes caffeine: Yes Dental Care, Regularly: Yes Physical Activity Frequency: Does not Exercise Physical Activity Frequency Comment: Hip problems Seatbelt Use: always Sunscreen Use: No Assistive Devices: Denture - Upper, Denture - Lower and Glasses Review of Systems Review of Systems: Detailed review of system was done and pertinent positives and negatives are mentioned above. Physical Exam Constitutional: WD/WN, vitals as above no acute distress Eyes: + anicteric sclerae Neck: normal visual inspection Respiratory: no respiratory distress Auscultation: lungs clear to auscultation bilaterally and + rales; no wheezes Cardiovascular: Rate/Rhythm: regular rate and regular rhythm Heart Sounds: normal S1 and normal S2 Extremities: + edema Gastrointestinal (Abdomen): Inspection/Auscultation: abdomen normal to inspection Percussion/Palpation: abdomen soft; abdomen nontender Musculoskeletal: Extremities: extremities normal to inspection Skin: no rashes, warm and dry Neurologic: no focal motor deficits Psychiatric: Orientation: alert and oriented x 3 Affect: euthymic affect Results & Data Vital Signs (Past 12 Hours) Vital Signs Pulse Pulse Resp BP BP Pulse Ox O2 Del Method 11/04/23 10:03 70 23 97 11/04/23 10:00 118/70 11/04/23 09:48 71 23 95 11/04/23 09:47 118/64 11/04/23 09:45 70 20 97 11/04/23 08:06 71 16 94 11/04/23 07:30 136/76 11/04/23 06:42 70 18 95 11/04/23 06:18 70 17 93 11/04/23 05:36 70 17 95 11/04/23 05:30 137/67 11/04/23 05:27 70 16 94 11/04/23 04:00 120/72 11/04/23 04:00 70 19 100 11/04/23 03:30 71 19 97 11/04/23 03:30 130/77 11/04/23 02:30 128/69 11/04/23 02:27 70 18 97 11/04/23 02:03 70 19 121/68 97 Room Air 11/04/23 02:02 70 11/04/23 01:03 70 15 127/70 95 Room Air 11/04/23 00:02 70 18 128/78 93 Room Air 11/03/23 23:17 70 18 95 Room Air 11/03/23 23:09 71 18 126/78 94 Room Air PG Care Time/CCT Total # of Minutes Spent Total Time Spent with Patient: Total time spent is greater than 50% in coordination of care (as documented) at patient's floor/unit and/or counseling patient: Coding Level of Care Code 47788 INT INP/OBS CARE MIN Diagnoses JULIO (acute kidney injury) N17.9 Anemia D64.9 Anemia type: unspecified type Pedal edema R60.0 Cellulitis of left lower extremity L03.116 Nonischemic cardiomyopathy I42.8 (2) Anemia Anemia type: unspecified type Qualified Code(s): D64.9 - Anemia, unspecified
[2023-11-04 11:01] LABS: ANTI-Xa, UFH(UnfractionatedHep > 1.50 IU/ml (0.3-0.7)
--- NOTE | 2023-11-04 11:44 | Pharmacy Report ---
Pharmacy Glycemic Short Note 2 - Date of Service November 04, 2023 - Glycemic Short BSG Results (Last 24 hours): 11/03/23 11/03/23 11/03/23 15:28 17:56 20:59 Glucose 129 H POC Glucose 209 H 109 H 11/04/23 11/04/23 11/04/23 03:30 05:41 07:57 Glucose 93 POC Glucose 88 84 11/04/23 11/04/23 09:40 11:18 Glucose POC Glucose 83 91 OUTPATIENT ANTIDIABETIC REGIMEN: * Trulicity 1.5 mg SC weekly () * Lantus 10 units SC HS HbA1c: 9% (08/10/23) ASSESSMENT: * IJ is a 78 year old female who was sent to ED from [facility] on 11/02 due to abnormal blood work (Hemoglobin ~7) * Patient w/ recent hospitalization including ICU admission for septic shock requiring multiple vasopressors * Ultimately transferred to [facility] for CRRT * Patient w/ stage 4 CKD (not currently on HD) * Patient received 10 units of Lantus last evening * Originally NPO this morning, now ordered T2DM diet * Blood sugars today of 88 and 91 mg/dL - will be conservative w/ insulin regimen today PLAN FOR INPATIENT GLYCEMIC CONTROL: * Basal insulin * Lantus 0-5-10 units SQ HS (see EHR for details) * Bolus insulin * NovoLog per scale ACHS or Q6hrs while NPO * Goal Range: Low 120 mg/dL - High 160 mg/dL * Correction Factor: 45 mg/dL/unit * Nutritional / Prandial insulin per carb ratio of 1 unit per 15 grams CHO consumed
[2023-11-04] MEDS: EPOETIN ALFA 40,000 UNITS/ML VIAL SQ STA (12:23)
[2023-11-04] MEDS: DIGOXIN 0.125 MG TAB PO SCH (16:35)
--- NOTE | 2023-11-04 17:14 | Hospitalist Progress Note ---
Date of Service November 04, 2023 Assessment & Plan (1) CKD (chronic kidney disease) stage 4, GFR 15-29 ml/min: Plan: Progressive CKD - Admission she has potassium 4.8 with elevated creatinine 5.1. - Creatinine was with recent trough of 2.14 on 09/17, following discharge from [facility] was 3.0, and has up trended to 4.1 over the last week. Mild volume overload without hypoxia or hyperkalemia. Chest x-ray is without significant pulmonary edema. Referred from [facility] for concern of impending need for dialysis Nephrology consulted. If she does not show improvement and progresses to dialysis will need vascular consultation both for temporary catheter and fistula evaluation. NPO at 0000. Appreciate recs. - Renal US ordered Bumex held Lenalidomide held Admitted to PCU, BMP every 4 hours She is not oliguric/anuric day of admission 11/03 reports urinating (2) Multiple myeloma: Plan: Multiple Myeloma Under treatment at [facility] with Dr. Porter. Patient does not know which agent she is on, per chart review has been on lenalidomide. Approximate 4% incidence of renal failure associated with this, will hold at this Point no leukocytosis, hemoglobin 8.4 near her baseline on admission without any clinical signs of bleeding, platelet count 165 (3) Type II diabetes mellitus: Plan: Type II DM Continue insulin glargine 20 units at bedtime, SSI Goal BSG [id number] [facility] Pharmacy glycemic consult in due to DM2 on insulin with progression of CKD (4) Asthma: Plan: Asthma Albuterol as needed No acute exacerbation (5) GERD (gastroesophageal reflux disease): Plan: GERD Continue PPI daily (6) Atrial flutter: Plan: Paroxysmal A-fib Continue digoxin Level pending Apixaban temporarily held patient to be converted to heparin gtt. at time of next dose due to potential need for dialysis access/procedures during admission Continue amiodarone Continue carvedilol 11/03 no need for procedures, stop IV Heparin, continue Eliquis, reduce dose (7) Heart failure with improved ejection fraction (HFimpEF): Plan: Heart failure with last EF approximately 30% With AICD No evidence of overt pulmonary edema on admission, does have some unchanged basilar effusions and pulmonary congestion No chest pain No signs of acute CHF decompensation (8) Anemia: Plan: anemia of chronic kidney diseases, Hgb 7.5 obtain iron study, monitor CBC transfuse PRN Plan Chronic stable issues: Depression/anxiety: Continue duloxetine DVT prophylaxis: Anticoagulated Diet: Renal/DM2 Disposition: PCU CODE STATUS: Full code Admission and Anticipated Discharge Date Admission Date: November 03, 2023 Subjective denies CP, SOB, no abdominal pain, reports diarrhea , dark stools Review of Systems Review of Systems: All systems reviewed & are unremarkable except as noted in HPI & below Physical Exam Physical Exam: General: A&Ox3. NAD. Cooperative. HEENT: Atraumatic, normocephalic. Vision/hearing intact Pulm: CTAB A&P. -wheezes, -rales, -rhonchi. Symmetrical chest rise. No increased work of breathing. No respiratory distress. Cardiac: RRR, -mrg. Radial pulses intact and symmetrical. Abdominal: Nontender, nondistended, soft. BS present. Ext: Bilateral LE pitting edema, legs wrapped and freshly dressed Results & Data Results & Data Vital Signs (Past 12 Hours) Vital Signs Temp Pulse Pulse Resp BP BP Pulse Ox 11/04/23 16:35 70 11/04/23 15:34 36.6 C 70 16 109/61 98 11/04/23 15:00 70 11/04/23 13:00 72 11/04/23 13:00 11/04/23 13:00 36.7 C 72 13 93/52 L 97 11/04/23 12:30 103/52 L 11/04/23 12:09 70 20 98 11/04/23 12:00 108/60 11/04/23 12:00 76 17 97 11/04/23 11:45 70 18 94 11/04/23 11:30 118/67 11/04/23 11:24 70 17 98 11/04/23 11:00 113/63 11/04/23 10:51 70 20 95 11/04/23 10:03 70 23 97 11/04/23 10:00 118/70 11/04/23 09:48 71 23 95 11/04/23 09:47 118/64 11/04/23 09:45 70 20 97 11/04/23 08:06 71 16 94 11/04/23 07:30 136/76 11/04/23 06:42 70 18 95 11/04/23 06:18 70 17 93 11/04/23 05:36 70 17 95 11/04/23 05:30 137/67 11/04/23 05:27 70 16 94 O2 Del Method 11/04/23 16:35 11/04/23 15:34 Room Air 11/04/23 15:00 11/04/23 13:00 11/04/23 13:00 Room Air 11/04/23 13:00 Room Air 11/04/23 12:30 11/04/23 12:09 11/04/23 12:00 11/04/23 12:00 11/04/23 11:45 11/04/23 11:30 11/04/23 11:24 11/04/23 11:00 11/04/23 10:51 11/04/23 10:03 11/04/23 10:00 11/04/23 09:48 11/04/23 09:47 11/04/23 09:45 11/04/23 08:06 11/04/23 07:30 11/04/23 06:42 11/04/23 06:18 11/04/23 05:36 11/04/23 05:30 11/04/23 05:27 PG Care Time/CCT Total # of Minutes Spent Total Time Spent with Patient: Total time spent is greater than 50% in coordination of care (as documented) at patient's floor/unit and/or counseling patient: Coding Level of Care Code 58664 SUB INP/OBS CARE 2/35MIN Diagnoses CKD (chronic kidney disease) stage 4, GFR 15-29 ml/min N18.4 Multiple myeloma C90.00 Type 2 diabetes mellitus with stage 4 chronic kidney disease, without long-term current use of insulin E11.22; N18.4 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 mcfp insulin use: without mcfp use 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 complication status: with kidney complications 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 complication detail: with chronic kidney disease Chronic kidney disease stage: stage 4 (severe) Asthma J45.909 Gastroesophageal reflux disease, esophagitis presence not specified K21.9 Esophagitis presence: esophagitis presence not specified Atrial flutter I48.92 Heart failure with improved ejection fraction (HFimpEF) I50.32 Anemia D64.9 Anemia type: unspecified type (3) Type II diabetes mellitus 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 predatory animal exterminator insulin use: without mcfp use Diabetes melli [place] complication status: with kidney complications 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 complication detail: with chronic kidney disease Chronic kidney disease stage: stage 4 (severe) Qualified Code(s): E11.22 - Type 2 diabetes mellitus with tyrell betic chronic kidney disease; N18.4 - Chronic kidney disease, stage 4 (severe) (5) GERD (gastroesophageal reflux disease) Esophagitis presence: esophagitis presence not specified Qualified Code(s): K21.9 - Gastro-esophageal reflux disease without esophagitis (8) Anemia Anemia type: unspecified type Qualified Code(s): D64.9 - Anemia, unspecified
[2023-11-04] MEDS: LANTUS PER UNIT CHARGE SQ SCH (20:47)
[2023-11-04] MEDS: APIXABAN 2.5 MG TAB PO SCH (20:50)
[2023-11-05 06:35] LABS: Basophils # (auto) 0.02 K/uL (0.00-0.20); Basophils % (auto) 0.5 %; Eosinophils # (auto) 0.13 K/uL (0.00-0.50); Eosinophils % (auto) 3.2 %; Hematocrit (blood only) 23.5 % (37.0-47.0); Hemoglobin 7.3 g/dl (12.0-16.0); Immature Granulocytes # (auto) 0.06 K/uL (0.01-0.20); Immature Granulocytes % (auto) 1.5 %; Lymphocytes # (auto) 0.59 K/uL (1.20-3.40); Lymphocytes % (auto) 14.7 %; Mean Corpuscular Hemoglobin 32.2 pg (25.0-34.0); Mean Corpuscular Hgb Conc 31.1 g/dL (32.0-36.0); Mean Corpuscular Volume 103.5 fL (80.0-100.0); Mean Platelet Volume 10.9 fL (9.4-12.4); Monocytes # (auto) 0.18 K/uL (0.11-0.59); Monocytes % (auto) 4.5 %; Neutrophils # (auto) 3.03 K/uL (1.40-6.50); Neutrophils % (auto) 75.6 %; Platelet Count 159 K/uL (130-400); RDW Coefficient of Variation 17.8 % (11.5-14.5); RDW Standard Deviation 66.9 fL (36.4-46.3); Red Blood Count 2.27 M/uL (4.20-5.40); White Blood Count 4.01 K/ul (4.8-10.8)
[2023-11-05 07:00] LABS: Polychromasia 1+
[2023-11-05 07:27] LABS: Albumin Level 2.3 gm/dl (3.4-5.0); Calcium 7.1 mg/dl (8.6-10.3); Creatinine Clr Calc Pharmacy 14.5 ml/min; Est GFR (African American) 10.1 ml/min; Est GFR (Non-African American) 8.7 ml/min; Phosphorus 3.4 mg/dl (2.5-4.9); Potassium 4.8 mmol/L (3.5-5.1)
[2023-11-05] MEDS: ALBUMIN 25% 25 GM/100 ML VIAL IV ONE (08:30)
[2023-11-05] MEDS ORDERED: Nursing to Pharmacy Communication SCH (08:45)
[2023-11-05] MEDS: FLUTICASONE/VILANTEROL 200/25MCG 14 PUFFS/INHALER INH SCH (09:12)
--- NOTE | 2023-11-05 10:25 | Nephrology Progress Note ---
Date of Service November 05, 2023 Assessment & Plan (1) JULIO (acute kidney injury): (2) Anemia: (3) Pedal edema: (4) Cellulitis of left lower extremity: (5) Nonischemic cardiomyopathy: Plan 78 yo F with stage 3B/4 CKD, b/l cr 2.0 to 2.4, recent dialysis requiring acute kidney injury, had CRRT x 2 sessions in the setting of sepsis with lower extremity cellulitis. She was discharged to [facility] from [facility] on 10/27/2023. Kidney function noted to have improved after 2 sessions of CRRT and on discharge creatinine was 3.0. However since discharge outpatient labs showing progressive worsening of kidney function. On admission creatinine was 5.1, electrolyte acceptable. Respiratory status acceptable although chest x-ray showing mild pulmonary congestion and small pleural effusion and she her weight is much higher than her baseline weight. She reports decent urine output and but p.o. intake has been poor and has ongoing diarrhea. No respiratory distress. Otherwise comfortable on room air. --continue to hold Bumex for now, monitor intake/output, aim for net negative, may need to resume Bumex if remains net positive. No acute indication to resume dialysis on a urgent basis but if progressive worsening of kidney function or electrolyte abnormality may need to resume dialysis. In that case, we will get a tunneled dialysis catheter. --Ok to resume home dose of cholestyramine, suggest to continue to hold Revlimid pending oncology recommendation, recommend decreasing dose to 2.5 mg daily with current eGFR if decided to resume. --consider changing diabetic diet to regular a she reports difficulty tolerating artificial sweetener in drinks. Will follow. Admission and Anticipated Discharge Date Admission Date: November 03, 2023 Preethi Mckeon was seen and evaluated this morning. She reports feeling well, no SOB, CP. cr slightly improved to 4.5, electrolyte acceptable. Hb low at 7.3, had JANELLE yesterday. Review of Systems Review of Systems: Detailed review of system was done and pertinent positives and negatives are mentioned above. Physical Exam Constitutional: WD/WN, vitals as above no acute distress Eyes: + anicteric sclerae Neck: normal visual inspection Respiratory: no respiratory distress Auscultation: lungs clear to auscultation bilaterally and + rales; no wheezes Cardiovascular: Rate/Rhythm: regular rate and regular rhythm Heart Sounds: normal S1 and normal S2 Extremities: + edema Musculoskeletal: Extremities: extremities normal to inspection Skin: no rashes, warm and dry Neurologic: no focal motor deficits Psychiatric: Orientation: alert and oriented x 3 Affect: euthymic affect Results & Data Vital Signs (Past 12 Hours) Vital Signs Temp Pulse Pulse Resp BP Pulse Ox O2 Del Method 11/05/23 09:18 Room Air 11/05/23 07:14 36.6 C 87 18 108/63 94 Room Air 11/05/23 07:00 70 11/05/23 02:31 36.7 C 70 18 118/58 L 95 Room Air 11/04/23 23:00 70 11/04/23 22:37 36.6 C 70 18 132/68 95 Room Air PG Care Time/CCT Total # of Minutes Spent Total Time Spent with Patient: Total time spent is greater than 50% in coordination of care (as documented) at patient's floor/unit and/or counseling patient: Coding Level of Care Code 83666 SUB INP/OBS CARE 2/35MIN Diagnoses JULIO (acute kidney injury) N17.9 Anemia D64.9 Anemia type: unspecified type Pedal edema R60.0 Cellulitis of left lower extremity L03.116 Nonischemic cardiomyopathy I42.8 (2) Anemia Anemia type: unspecified type Qualified Code(s): D64.9 - Anemia, unspecified
[2023-11-05] MEDS ORDERED: MICONAZOLE NITRATE POWDER 85 GM EXT PRN (10:39)
--- NOTE | 2023-11-05 11:01 | Hospitalist Progress Note ---
Date of Service November 05, 2023 Assessment & Plan (1) CKD (chronic kidney disease) stage 4, GFR 15-29 ml/min: Plan: Progressive CKD - Admission she has potassium 4.8 with elevated creatinine 5.1. - Creatinine was with recent trough of 2.14 on 09/17, following discharge from [facility] was 3.0, and has up trended to 4.1 over the last week. Mild volume overload without hypoxia or hyperkalemia. Chest x-ray is without significant pulmonary edema. Referred from Center care for concern of impending need for dialysis Nephrology consulted. If she does not show improvement and progresses to dialysis will need vascular consultation both for temporary catheter and fistula evaluation. NPO at 0000. Appreciate recs. - Renal US ordered Bumex held Lenalidomide held Admitted to PCU, BMP every 4 hours She is not oliguric/anuric day of admission 11/03 reports urinating 11/04 cr 4.5 (2) Multiple myeloma: Plan: Multiple Myeloma Under treatment at [facility] with Dr. Porter. Patient does not know which agent she is on, per chart review has been on lenalidomide. Approximate 4% incidence of renal failure associated with this, will hold at this Point no leukocytosis, hemoglobin 8.4 near her baseline on admission without any clinical signs of bleeding, platelet count 165 (3) Type II diabetes mellitus: Plan: Type II DM Continue insulin glargine 20 units at bedtime, SSI Goal BSG [id number] [facility] glycemic consult in due to DM2 on insulin with progression of CKD (4) Asthma: Plan: Asthma Albuterol as needed No acute exacerbation (5) GERD (gastroesophageal reflux disease): Plan: GERD Continue PPI daily (6) Atrial flutter: Plan: Paroxysmal A-fib Continue digoxin Level pending Apixaban temporarily held patient to be converted to heparin gtt. at time of next dose due to potential need for dialysis access/procedures during admission Continue amiodarone Continue carvedilol 11/03 no need for procedures, stop IV Heparin, continue Eliquis, reduce dose 11/04 stable (7) Heart failure with improved ejection fraction (HFimpEF): Plan: Heart failure with last EF approximately 30% With AICD No evidence of overt pulmonary edema on admission, does have some unchanged basilar effusions and pulmonary congestion No chest pain No signs of acute CHF decompensation (8) Anemia: Plan: anemia of chronic kidney diseases, Hgb 7.5 obtain iron study, monitor CBC hgb 7.3 transfuse 1 unit of blood Plan Chronic stable issues: Depression/anxiety: Continue duloxetine DVT prophylaxis: Anticoagulated Diet: Renal/DM2 Disposition: PCU CODE STATUS: Full code Admission and Anticipated Discharge Date Admission Date: November 03, 2023 Preethi Mckeon was seen and evaluated this morning. She reports feeling well, no SOB, CP. cr slightly improved to 4.5, electrolyte acceptable. Hb low at 7.3, had JANELLE yesterday. Review of Systems Review of Systems: All systems reviewed & are unremarkable except as noted in Subjective Physical Exam Physical Exam: General: A&Ox3. NAD. Cooperative. HEENT: Atraumatic, normocephalic. Vision/hearing intact Pulm: CTAB A&P. -wheezes, -rales, -rhonchi. Symmetrical chest rise. No increased work of breathing. No respiratory distress. Cardiac: RRR, -mrg. Radial pulses intact and symmetrical. Abdominal: Nontender, nondistended, soft. BS present. Ext: Bilateral LE pitting edema, legs wrapped and freshly dressed Results & Data Results & Data Vital Signs (Past 12 Hours) Vital Signs Temp Pulse Pulse Resp BP Pulse Ox O2 Del Method 11/05/23 10:46 36.8 C 72 19 110/63 97 Room Air 11/05/23 09:18 Room Air 11/05/23 07:14 36.6 C 87 18 108/63 94 Room Air 11/05/23 07:00 70 11/05/23 02:31 36.7 C 70 18 118/58 L 95 Room Air 11/04/23 23:00 70 PG Care Time/CCT Total # of Minutes Spent Total Time Spent with Patient: Total time spent is greater than 50% in coordination of care (as documented) at patient's floor/unit and/or counseling patient: Coding Level of Care Code 90220 SUB INP/OBS CARE 2/35MIN Diagnoses CKD (chronic kidney disease) stage 4, GFR 15-29 ml/min N18.4 Multiple myeloma C90.00 Type 2 diabetes mellitus with stage 4 chronic kidney disease, without long-term current use of insulin E11.22; N18.4 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 moth exterminator insulin use: without moth exterminator use 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 complication status: with kidney complications 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 complication detail: with chronic kidney disease Chronic kidney disease stage: stage 4 (severe) Asthma J45.909 Gastroesophageal reflux disease, esophagitis presence not specified K21.9 Esophagitis presence: esophagitis presence not specified Atrial flutter I48.92 Heart failure with improved ejection fraction (HFimpEF) I50.32 Anemia D64.9 Anemia type: unspecified type (3) Type II diabetes mellitus 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 chcf insulin use: without moth exterminator use 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 complication status: with kidney complications 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 complication detail: with chronic kidney disease Chronic kidney disease stage: stage 4 (severe) Qualified Code(s): E11.22 - Type 2 diabetes mellitus with diabetic chronic kidney disease; N18.4 - Chronic kidney disease, stage 4 (severe) (5) GERD (gastroesophageal reflux disease) Esophagitis presence: esophagitis presence not specified Qualified Code(s): K21.9 - Gastro-esophageal reflux disease without esophagitis (8) Anemia Anemia type: unspecified type Qualified Code(s): D64.9 - Anemia, unspecified
[2023-11-05] MEDS: ACETAMINOPHEN 325 MG TAB PO PRN (16:03)
[2023-11-05] MEDS: CHOLESTYRAMINE LIGHT 4 GM PKT PO PRN (21:39)
[2023-11-06 06:20] LABS: Hematocrit (blood only) 23.1 % (37.0-47.0); Hemoglobin 7.2 g/dl (12.0-16.0); Mean Corpuscular Hemoglobin 32.3 pg (25.0-34.0); Mean Corpuscular Hgb Conc 31.2 g/dL (32.0-36.0); Mean Corpuscular Volume 103.6 fL (80.0-100.0); Mean Platelet Volume 11.5 fL (9.4-12.4); Platelet Count 148 K/uL (130-400); RDW Coefficient of Variation 17.8 % (11.5-14.5); RDW Standard Deviation 66.6 fL (36.4-46.3); Red Blood Count 2.23 M/uL (4.20-5.40); White Blood Count 3.82 K/ul (4.8-10.8)
[2023-11-06 06:32] LABS: Albumin Level 2.6 gm/dl (3.4-5.0); Calcium 6.9 mg/dl (8.6-10.3); Creatinine Clr Calc Pharmacy 15.4 ml/min; Est GFR (Non-African American) 9.5 ml/min; Phosphorus 2.8 mg/dl (2.5-4.9); Potassium 4.5 mmol/L (3.5-5.1)
[2023-11-06 06:42] LABS: Anisocytosis Present; Basophils # (auto) 0.01 K/uL (0.00-0.20); Basophils % (auto) 0.3 %; Eosinophils # (auto) 0.12 K/uL (0.00-0.50); Eosinophils % (auto) 3.1 %; Immature Granulocytes # (auto) 0.06 K/uL (0.01-0.20); Immature Granulocytes % (auto) 1.6 %; Lymphocytes # (auto) 0.64 K/uL (1.20-3.40); Lymphocytes % (auto) 16.8 %; Monocytes # (auto) 0.27 K/uL (0.11-0.59); Monocytes % (auto) 7.1 %; Neutrophils # (auto) 2.72 K/uL (1.40-6.50); Neutrophils % (auto) 71.1 %; Polychromasia 1+
[2023-11-06] MEDS ORDERED: SODIUM CHLORIDE 0.9% 250 ML IV PRN ×2 (08:53→09:33)
--- NOTE | 2023-11-06 10:45 | Nephrology Progress Note ---
Date of Service November 06, 2023 Assessment & Plan (1) JULIO (acute kidney injury): (2) Anemia: (3) Pedal edema: (4) Cellulitis of left lower extremity: (5) Nonischemic cardiomyopathy: Plan 78 yo F with stage 3B/4 CKD, b/l cr 2.0 to 2.4, recent dialysis requiring acute kidney injury, had CRRT x 2 sessions in the setting of sepsis with lower extremity cellulitis. She was discharged to [facility] from [facility] on 10/27/2023. Kidney function noted to have improved after 2 sessions of CRRT and on discharge creatinine was 3.0. However since discharge outpatient labs showing progressive worsening of kidney function. On admission creatinine was 5.1, electrolyte acceptable. Respiratory status acceptable although chest x-ray showing mild pulmonary congestion and small pleural effusion and she her weight is much higher than her baseline weight. Overall doing well, clinically asymptomatic. Slow improvement in kidney function, creatinine down to 4.2, electrolyte acceptable. Intake and output net even. Hb 7.2, adequate iron store, had JANELLE. --continue to monitor intake/output, kidney function and electrolyte daily. Hold diuretics at this time. --on cholestyramine --suggest to continue to hold Revlimid pending oncology recommendation, recommend decreasing dose to 2.5 mg daily with current eGFR if decided to resume. -- Hemoglobin has been staying low, she has been otherwise asymptomatic, no pressing indication for blood transfusion at this time however if hemoglobin drops below 7, recommend PRBC transfusion. Will follow. Admission and Anticipated Discharge Date Admission Date: November 03, 2023 Preethi Mckeon was seen and evaluated this morning. She reports feeling well, no SOB, CP. Diarrhea improved after cholestyramine was resumed yesterday. Kidney function continues to improve slowly, creatinine down to 4.2, electrolyte acceptable. Hb low at 7.2, had JANELLE , decent iron store. Review of Systems Review of Systems: Detailed review of system was done and pertinent positives and negatives are mentioned above. Physical Exam Constitutional: WD/WN, vitals as above no acute distress Eyes: + anicteric sclerae Neck: normal visual inspection Respiratory: no respiratory distress Auscultation: lungs clear to auscultation bilaterally and + rales; no wheezes Cardiovascular: Rate/Rhythm: regular rate and regular rhythm Heart Sounds: normal S1 and normal S2 Extremities: + edema Musculoskeletal: Extremities: extremities normal to inspection Skin: no rashes, warm and dry Neurologic: no focal motor deficits Psychiatric: Orientation: alert and oriented x 3 Affect: euthymic affect Results & Data Vital Signs (Past 12 Hours) Vital Signs Temp Pulse Pulse Resp BP Pulse Ox O2 Del Method 11/06/23 08:03 75 11/06/23 07:44 36.7 C 70 19 120/65 96 Room Air 11/06/23 02:33 37.0 C 70 18 141/67 H 95 Room Air 11/05/23 23:24 70 PG Care Time/CCT Total # of Minutes Spent Total Time Spent with Patient: Total time spent is greater than 50% in coordination of care (as documented) at patient's floor/unit and/or counseling patient: Coding Level of Care Code 53122 SUB INP/OBS CARE 2/35MIN Diagnoses JULIO (acute kidney injury) N17.9 Anemia D64.9 Anemia type: unspecified type Pedal edema R60.0 Cellulitis of left lower extremity L03.116 Nonischemic cardiomyopathy I42.8 (2) Anemia Anemia type: unspecified type Qualified Code(s): D64.9 - Anemia, unspecified
--- NOTE | 2023-11-06 11:18 | Hospitalist Progress Note ---
Date of Service November 06, 2023 Assessment & Plan (1) CKD (chronic kidney disease) stage 4, GFR 15-29 ml/min: Plan: Progressive CKD - Admission she has potassium 4.8 with elevated creatinine 5.1. - Creatinine was with recent trough of 2.14 on 09/17, following discharge from [facility] was 3.0, and has up trended to 4.1 over the last week. Mild volume overload without hypoxia or hyperkalemia. Chest x-ray is without significant pulmonary edema. Referred from [facility] for concern of impending need for dialysis - Renal US ordered Bumex on hold Lenalidomide held She is not oliguric/anuric day of admission 11/03 reports urinating 11/04 cr 4.5 11/05 cr is trending down, received albumin yesterday (2) Multiple myeloma: Plan: Multiple Myeloma Under treatment at [facility] with Dr. Porter. Patient does not know which agent she is on, per chart review has been on lenalidomide. Approximate 4% incidence of renal failure associated with this, will hold at this Point no leukocytosis, hemoglobin 8.4 near her baseline on admission without any clinical signs of bleeding, platelet count 165 (3) Type II diabetes mellitus: Plan: Type II DM Continue insulin glargine 20 units at bedtime, SSI Goal BSG [id number] [facility]acy glycemic consult in due to DM2 on insulin with progression of CKD (4) Asthma: Plan: Asthma Albuterol as needed No acute exacerbation (5) GERD (gastroesophageal reflux disease): Plan: GERD Continue PPI daily (6) Atrial flutter: Plan: Paroxysmal A-fib Continue digoxin Level pending Apixaban temporarily held patient to be converted to heparin gtt. at time of next dose due to potential need for dialysis access/procedures during admission Continue amiodarone Continue carvedilol 11/03 no need for procedures, stop IV Heparin, continue Eliquis, reduce dose 11/04 stable 11/05 BP, HR is stable (7) Heart failure with improved ejection fraction (HFimpEF): Plan: Heart failure with last EF approximately 30% With AICD No evidence of overt pulmonary edema on admission, does have some unchanged basilar effusions and pulmonary congestion No chest pain No signs of acute CHF decompensation (8) Anemia: Plan: anemia of chronic kidney diseases, Hgb 7.5 obtain iron study, monitor CBC hgb 7.3 transfuse 1 unit of blood Hgb 7.2 transfuse 1 unit Plan Chronic stable issues: Depression/anxiety: Continue duloxetine DVT prophylaxis: Anticoagulated Diet: Renal/DM2 Disposition: PCU CODE STATUS: Full code Admission and Anticipated Discharge Date Admission Date: November 03, 2023 Preethi Mckeon was seen and evaluated this morning. She reports feeling well, no SOB, CP. Diarrhea improved after cholestyramine was resumed yesterday. Kidney function continues to improve slowly, creatinine down to 4.2, electrolyte acceptable. Hb low at 7.2, had JANELLE , decent iron store. Physical Exam Physical Exam: General: A&Ox3. NAD. Cooperative. HEENT: Atraumatic, normocephalic. Vision/hearing intact Pulm: CTAB A&P. -wheezes, -rales, -rhonchi. Symmetrical chest rise. No increased work of breathing. No respiratory distress. Cardiac: RRR, -mrg. Radial pulses intact and symmetrical. Abdominal: Nontender, nondistended, soft. BS present. Ext: Bilateral LE pitting edema, legs wrapped and freshly dressed Results & Data Results & Data Vital Signs (Past 12 Hours) Vital Signs Temp Pulse Pulse Resp BP Pulse Ox O2 Del Method 11/06/23 10:37 37.0 C 70 21 99/57 L 97 Room Air 11/06/23 08:03 75 11/06/23 08:00 Room Air 11/06/23 07:44 36.7 C 70 19 120/65 96 Room Air 11/06/23 02:33 37.0 C 70 18 141/67 H 95 Room Air 11/05/23 23:24 70 PG Care Time/CCT Total # of Minutes Spent Total Time Spent with Patient: Total time spent is greater than 50% in coordination of care (as documented) at patient's floor/unit and/or counseling patient: Coding Level of Care Code 54917 SUB INP/OBS CARE 2/35MIN Diagnoses CKD (chronic kidney disease) stage 4, GFR 15-29 ml/min N18.4 Multiple myeloma C90.00 Type 2 diabetes mellitus with stage 4 chronic kidney disease, without long-term current use of insulin E11.22; N18.4 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 intermediate insulin use: without oil heaterman use 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 complication status: with kidney complications 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 complication detail: with chronic kidney disease Chronic kidney disease stage: stage 4 (severe) Asthma J45.909 Gastroesophageal reflux disease, esophagitis presence not specified K21.9 Esophagitis presence: esophagitis presence not specified Atrial flutter I48.92 Heart failure with improved ejection fraction (HFimpEF) I50.32 Anemia D64.9 Anemia type: unspecified type (3) Type II diabetes mellitus 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 intermediate insulin use: without oil heaterman use 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 complication status: with kidney complications 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 complication detail: with chronic kidney disease Chronic kidney disease stage: stage 4 (severe) Qualified Code(s): E11.22 - Type 2 diabetes mellitus with diabetic chronic kidney disease; N18.4 - Chronic kidney disease, stage 4 (severe) (5) GERD (gastroesophageal reflux disease) Esophagitis presence: esophagitis presence not specified Qualified Code(s): K21.9 - Gastro-esophageal reflux disease without esophagitis (8) Anemia Anemia type: unspecified type Qualified Code(s): D64.9 - Anemia, unspecified
--- NOTE | 2023-11-06 11:46 | Pharmacy Report ---
Pharmacy Glycemic Short Note 2 - Date of Service November 06, 2023 - Glycemic Short BSG Results (Last 24 hours): 11/05/23 11/06/23 11/06/23 19:47 05:43 08:20 Glucose 101 H POC Glucose 98 106 H OUTPATIENT ANTIDIABETIC REGIMEN: * Trulicity 1.5 mg SC weekly () * Lantus 10 units SC HS HbA1c: 9% (08/10/23) ASSESSMENT: * IJ is a 78 year old female who was sent to ED from [facility] on 11/02 due to abnormal blood work (Hemoglobin ~7) * Patient w/ recent hospitalization including ICU admission for septic shock requiring multiple vasopressors * Ultimately transferred to [facility] for CRRT * Patient w/ stage 4 CKD (not currently on HD) * Patient received 10 units of Lantus last evening * Originally NPO this morning, now ordered T2DM diet * Blood sugars today of 88 and 91 mg/dL - will be conservative w/ insulin regimen today 11/05: * Patient received a total of 4 units of bolus insulin yesterday. BSGs were 427-115-804-98 mg/dL. Fasting BSG is 106 mg/dL. * Patient is ordered a diet but significant meal intake remains inconsistent. * Will continue with current lantus and novolog scales. * Patient is continued on home prednisone 5 mg. * Patient using own [employer] for BSG monitoring. Per nursing documentation today BSG was verified to be within 10% threshold for use. PLAN FOR INPATIENT GLYCEMIC CONTROL: * Basal insulin * Lantus 0-5-10 units SQ HS (see EHR for details) * Bolus insulin * NovoLog per scale ACHS or Q6hrs while NPO * Goal Range: Low 120 mg/dL - High 160 mg/dL * Correction Factor: 45 mg/dL/unit * Nutritional / Prandial insulin per carb ratio of 1 unit per 15 grams CHO consumed
[2023-11-07 06:39] LABS: Basophils # (auto) 0.02 K/uL (0.00-0.20); Basophils % (auto) 0.4 %; Eosinophils # (auto) 0.11 K/uL (0.00-0.50); Eosinophils % (auto) 2.3 %; Hemoglobin 8.1 g/dl (12.0-16.0); Immature Granulocytes # (auto) 0.05 K/uL (0.01-0.20); Lymphocytes # (auto) 0.97 K/uL (1.20-3.40); Lymphocytes % (auto) 20.2 %; Mean Corpuscular Hemoglobin 32.4 pg (25.0-34.0); Mean Corpuscular Hgb Conc 32.4 g/dL (32.0-36.0); Mean Platelet Volume 11.5 fL (9.4-12.4); Monocytes # (auto) 0.36 K/uL (0.11-0.59); Monocytes % (auto) 7.5 %; Neutrophils % (auto) 68.6 %; Platelet Count 147 K/uL (130-400); RDW Coefficient of Variation 18.9 % (11.5-14.5); RDW Standard Deviation 68.6 fL (36.4-46.3); White Blood Count 4.81 K/ul (4.8-10.8)
[2023-11-07 06:58] LABS: Albumin Level 2.5 gm/dl (3.4-5.0); BUN Creatinine Ratio 9.8 (10-20); Calcium 6.8 mg/dl (8.6-10.3); Creatinine Clr Calc Pharmacy 16.9 ml/min; Est GFR (African American) 12.3 ml/min; Est GFR (Non-African American) 10.6 ml/min; Phosphorus 2.6 mg/dl (2.5-4.9); Potassium 4.2 mmol/L (3.5-5.1)
[2023-11-07] MEDS: ALBUMIN 25% 25 GM/100 ML VIAL IV SCH (09:34)
--- NOTE | 2023-11-07 11:44 | Nephrology Progress Note ---
Date of Service November 07, 2023 Assessment & Plan (1) JULIO (acute kidney injury): Plan: CKD III-IV with baseline creatinine 2.0-2.4 mg/dL. 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 No indication for dialysis at this time. HCO3 acceptable with PO NaHCO3 replacement. Creatinine is trending down. Electrolytes are acceptable. Barbara presented with increased TBW but intravascular volume depletion. Diuretics held. Volume status acceptable. Kidney function improving. IV albumin per hospitalist team. Revlimid held per oncology recommendations. (2) Anemia: Plan: Chronic, stable. Iron stores acceptable. Defer JANELLE management to hematology. (3) Nonischemic cardiomyopathy: Plan: Not currently decompensated. Avoid RAASi blockade due to JULIO. Document I/O's. Low sodium diet and fluid restriction to 1.2 L/day. (4) CKD (chronic kidney disease) stage 4, GFR 15-29 ml/min: Plan: Remains on calcitriol for sPTH. Calcium acceptable. Follow up with Dr. Stevenson post discharge. Admission and Anticipated Discharge Date Admission Date: November 03, 2023 Subjective No acute events overnight. Mike feels well this AM. Appetite fair. No GI symptoms otherwise at this time. Edema stable. No shortness of breath. Review of Systems Review of Systems: All systems reviewed & are unremarkable except as noted in HPI & below Physical Exam Constitutional: well developed and + edematous; no acute distress Eyes: no corneal abnormality ENMT: Mouth: no oral mucosal abnormality and oral mucous membranes not dry Neck: normal visual inspection and trachea midline Respiratory: normal respiratory effort Auscultation: lungs clear to auscultation bilaterally Cardiovascular: Rate/Rhythm: regular rate Heart Sounds: normal S1 and normal S2 Extremities: + edema Musculoskeletal: Extremities: no cyanosis and no clubbing Skin: normal turgor; no lesions Neurologic: Motor/Sensory: no tremor and no asterixis Psychiatric: Orientation: alert and oriented x 3 Results & Data Vital Signs (Past 12 Hours) Vital Signs Temp Pulse Pulse Resp BP Pulse Ox O2 Del Method 11/07/23 11:30 36.7 C 69 19 114/68 100 Room Air 11/07/23 11:02 70 11/07/23 08:06 37.2 C 69 18 108/65 92 Room Air 11/07/23 02:52 36.8 C 70 18 143/72 H 96 Room Air 11/06/23 23:41 70 Laboratory Results Laboratory Results - last 24 hr 11/03/23 11/03/23 11/06/23 15:28 17:38 19:51 WBC RBC Hgb Hct MCV MCH MCHC RDW Std Deviation RDW Coeff of Amrita Plt Count MPV Immature Gran % (Auto) Neut % (Auto) Lymph % (Auto) Bracken % (Auto) Eos % (Auto) Baso % (Auto) Neut # (Auto) Lymph # (Auto) Bracken # (Auto) Eos # (Auto) Baso # (Auto) Immature Gran # (Auto) Sodium Potassium Chloride Carbon Dioxide Anion Gap BUN Creatinine Est Cr Clr Drug Dosing Est GFR ( Amer) Est GFR (Non-Af Amer) BUN/Creatinine Ratio Glucose POC Glucose 143 H Calcium Phosphorus Albumin Stool Occult Bld Scrn Blood Type O Negative Antibody Screen POSITIVE A Antibody Identification Panagglutinin due to drug Antibody ID Referred Antibody ID Comment Not Reportable Crossmatch See Detail 11/07/23 11/07/23 11/07/23 05:53 07:14 09:41 WBC 4.81 RBC 2.50 L Hgb 8.1 L Hct 25.0 L MCV 100.0 MCH 32.4 MCHC 32.4 RDW Std Deviation 68.6 H RDW Coeff of Amrtia 18.9 H Plt Count 147 MPV 11.5 Immature Gran % (Auto) 1.0 Neut % (Auto) 68.6 Lymph % (Auto) 20.2 Bracken % (Auto) 7.5 Eos % (Auto) 2.3 Baso % (Auto) 0.4 Neut # (Auto) 3.30 Lymph # (Auto) 0.97 L Bracken # (Auto) 0.36 Eos # (Auto) 0.11 Baso # (Auto) 0.02 Immature Gran # (Auto) 0.05 Sodium 137 Potassium 4.2 Chloride 103 Carbon Dioxide 28 Anion Gap 6 BUN 38 H Creatinine 3.86 H D Est Cr Clr Drug Dosing 16.9 Est GFR ( Amer) 12.3 Est GFR (Non-Af Amer) 10.6 BUN/Creatinine Ratio 9.8 L Glucose 93 POC Glucose 104 H Calcium 6.8 L Phosphorus 2.6 Albumin 2.5 L Stool Occult Bld Scrn Negative Blood Type Antibody Screen Antibody Identification Antibody ID Referred Antibody ID Comment Crossmatch PG Care Time/CCT Total # of Minutes Spent Total Time Spent with Patient: Total time spent is greater than 50% in coordination of care (as documented) at patient's floor/unit and/or counseling patient: Coding Level of Care Code 22481 SUB INP/OBS CARE 3/50MIN Diagnoses JULIO (acute kidney injury) N17.9 Anemia D64.9 Anemia type: unspecified type Nonischemic cardiomyopathy I42.8 CKD (chronic kidney disease) stage 4, GFR 15-29 ml/min N18.4 (2) Anemia Anemia type: unspecified type Qualified Code(s): D64.9 - Anemia, unspecified
--- NOTE | 2023-11-07 12:02 | Hospitalist Progress Note ---
Date of Service November 07, 2023 Assessment & Plan (1) CKD (chronic kidney disease) stage 4, GFR 15-29 ml/min: Plan: Progressive CKD - Admission she has potassium 4.8 with elevated creatinine 5.1. - Creatinine was with recent trough of 2.14 on 09/17, following discharge from [facility] was 3.0, and has up trended to 4.1 over the last week. Mild volume overload without hypoxia or hyperkalemia. Chest x-ray is without significant pulmonary edema. Referred from [facility] for concern of impending need for dialysis - Renal US ordered Bumex on hold Lenalidomide held She is not oliguric/anuric day of admission 11/03 reports urinating 11/04 cr 4.5 11/05 cr is trending down, received albumin yesterday 11/06 creatinine is trending down 3.86 (2) Multiple myeloma: Plan: Multiple Myeloma Under treatment at [facility] with Dr. Porter. Patient does not know which agent she is on, per chart review has been on lenalidomide. Approximate 4% incidence of renal failure associated with this, will hold at this Point no leukocytosis, hemoglobin 8.4 near her baseline on admission without any clinical signs of bleeding, platelet count 165 11/06 lenalidomide is on hold (3) Type II diabetes mellitus: Plan: Type II DM Continue insulin glargine 20 units at bedtime, SSI Goal BSG [id number] [facility] glycemic consult in due to DM2 on insulin with progression of CKD (4) Asthma: Plan: Asthma Albuterol as needed No acute exacerbation (5) GERD (gastroesophageal reflux disease): Plan: GERD Continue PPI daily (6) Atrial flutter: Plan: Paroxysmal A-fib Continue digoxin Level pending Apixaban temporarily held patient to be converted to heparin gtt. at time of next dose due to potential need for dialysis access/procedures during admission Continue amiodarone Continue carvedilol 11/03 no need for procedures, stop IV Heparin, continue Eliquis, reduce dose 11/04 stable 11/05 BP, HR is stable (7) Heart failure with improved ejection fraction (HFimpEF): Plan: Heart failure with last EF approximately 30% With AICD No evidence of overt pulmonary edema on admission, does have some unchanged basilar effusions and pulmonary congestion No chest pain No signs of acute CHF decompensation (8) Anemia: Plan: anemia of chronic kidney diseases, Hgb 7.5 obtain iron study, monitor CBC hgb 7.3 transfuse 1 unit of blood Hgb 7.2 transfuse 1 unit /15 Hgb 8.1 Plan Chronic stable issues: Depression/anxiety: Continue duloxetine DVT prophylaxis: Anticoagulated Diet: Renal/DM2 Disposition: PCU CODE STATUS: Full code Admission and Anticipated Discharge Date Admission Date: November 03, 2023 discharge to rehab Subjective No acute events overnight. Appetite fair. No GI symptoms otherwise at this time. Edema stable. No shortness of breath. Review of Systems Review of Systems: All systems reviewed & are unremarkable except as noted in Subjective Physical Exam Physical Exam: General: A&Ox3. NAD. Cooperative. HEENT: Atraumatic, normocephalic. Vision/hearing intact Pulm: CTAB A&P. -wheezes, -rales, -rhonchi. Symmetrical chest rise. No increased work of breathing. No respiratory distress. Cardiac: RRR, -mrg. Radial pulses intact and symmetrical. Abdominal: Nontender, nondistended, soft. BS present. Ext: Bilateral LE pitting edema, legs wrapped and freshly dressed Results & Data Results & Data Vital Signs (Past 12 Hours) Vital Signs Temp Pulse Pulse Resp BP Pulse Ox O2 Del Method 11/07/23 11:30 36.7 C 69 19 114/68 100 Room Air 11/07/23 11:02 70 11/07/23 08:06 37.2 C 69 18 108/65 92 Room Air 11/07/23 02:52 36.8 C 70 18 143/72 H 96 Room Air PG Care Time/CCT Total # of Minutes Spent Total Time Spent with Patient: Total time spent is greater than 50% in coordination of care (as documented) at patient's floor/unit and/or counseling patient: Coding Level of Care Code 10393 SUB INP/OBS CARE 2/35MIN Diagnoses CKD (chronic kidney disease) stage 4, GFR 15-29 ml/min N18.4 Multiple myeloma C90.00 Type 2 diabetes mellitus with stage 4 chronic kidney disease, without long-term current use of insulin E11.22; N18.4 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 group home insulin 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 complication status: with kidney complications 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 complication detail: with chronic kidney disease Chronic kidney disease stage: stage 4 (severe) Asthma J45.909 Gastroesophageal reflux disease, esophagitis presence not specified K21.9 Esophagitis presence: esophagitis presence not specified Atrial flutter I48.92 Heart failure with improved ejection fraction (HFimpEF) I50.32 Anemia D64.9 Anemia type: unspecified type (3) Type II diabetes mellitus 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 group home insulin use: without group home use 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 complication status: with kidney complications 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 complication detail: with chronic kidney disease Chronic kidney disease stage: stage 4 (severe) Qualified Code(s): E11.22 - Type 2 diabetes mellitus with diabetic chronic kidney disease; N18.4 - Chronic kidney disease, stage 4 (severe) (5) GERD (gastroesophageal reflux disease) Esophagitis presence: esophagitis presence not specified Qualified Code(s): K21.9 - Gastro-esophageal reflux disease without esophagitis (8) Anemia Anemia type: unspecified type Qualified Code(s): D64.9 - Anemia, unspecified
[2023-11-07] MEDS ORDERED: Continuous Glucose Monitor SCH (14:15)
[2023-11-08 08:55] LABS: BUN Creatinine Ratio 9.5 (10-20); Calcium 7.2 mg/dl (8.6-10.3); Creatinine Clr Calc Pharmacy 19.4 ml/min; Est GFR (African American) 14.5 ml/min; Est GFR (Non-African American) 12.5 ml/min
--- NOTE | 2023-11-08 10:08 | Hospitalist Progress Note ---
Date of Service November 08, 2023 Assessment & Plan (1) CKD (chronic kidney disease) stage 4, GFR 15-29 ml/min: Plan: Progressive CKD - Admission she has potassium 4.8 with elevated creatinine 5.1. - Creatinine was with recent trough of 2.14 on 09/17, following discharge from [facility] was 3.0, and has up trended to 4.1 over the last week. Mild volume overload without hypoxia or hyperkalemia. Chest x-ray is without significant pulmonary edema. Referred from [facility] for concern of impending need for dialysis - Renal US ordered Bumex on hold Lenalidomide held She is not oliguric/anuric day of admission 11/03 reports urinating 11/04 cr 4.5 11/05 cr is trending down, received albumin yesterday 11/06 creatinine is trending down 3.86 11/07 creatinine 3.3 (2) Multiple myeloma: Plan: Multiple Myeloma Under treatment at [facility] with Dr. Porter. Patient does not know which agent she is on, per chart review has been on lenalidomide. Approximate 4% incidence of renal failure associated with this, will hold at this Point no leukocytosis, hemoglobin 8.4 near her baseline on admission without any clinical signs of bleeding, platelet count 165 11/06 lenalidomide is on hold (3) Type II diabetes mellitus: Plan: Type II DM Continue insulin glargine 20 units at bedtime, SSI Goal BSG [id number] [facility] glycemic consult in due to DM2 on insulin with progression of CKD (4) Asthma: Plan: Asthma Albuterol as needed No acute exacerbation (5) GERD (gastroesophageal reflux disease): Plan: GERD Continue PPI daily (6) Atrial flutter: Plan: Paroxysmal A-fib Continue digoxin Level pending Apixaban temporarily held patient to be converted to heparin gtt. at time of next dose due to potential need for dialysis access/procedures during admission Continue amiodarone Continue carvedilol 11/03 no need for procedures, stop IV Heparin, continue Eliquis, reduce dose 11/04 stable 11/05 BP, HR is stable 11/06 hemodynamically stable 11/07 vitals are stable (7) Heart failure with improved ejection fraction (HFimpEF): Plan: Heart failure with last EF approximately 30% With AICD No evidence of overt pulmonary edema on admission, does have some unchanged basilar effusions and pulmonary congestion No chest pain No signs of acute CHF decompensation (8) Anemia: Plan: anemia of chronic kidney diseases, Hgb 7.5 obtain iron study, monitor CBC hgb 7.3 transfuse 1 unit of blood Hgb 7.2 transfuse 1 unit 15 Hgb 8.1 Plan Chronic stable issues: Depression/anxiety: Continue duloxetine DVT prophylaxis: Anticoagulated Diet: Renal/DM2 Disposition: PCU CODE STATUS: Full code Admission and Anticipated Discharge Date Admission Date: November 03, 2023 Subjective No acute events overnight. Appetite fair. No GI symptoms otherwise at this time. Edema stable. No shortness of breath. Review of Systems Review of Systems: All systems reviewed & are unremarkable except as noted in Subjective Physical Exam Physical Exam: General: A&Ox3. NAD. Cooperative. HEENT: Atraumatic, normocephalic. Vision/hearing intact Pulm: CTAB A&P. -wheezes, -rales, -rhonchi. Symmetrical chest rise. No increased work of breathing. No respiratory distress. Cardiac: RRR, -mrg. Radial pulses intact and symmetrical. Abdominal: Nontender, nondistended, soft. BS present. Ext: Bilateral LE pitting edema, legs wrapped and freshly dressed Results & Data Results & Data Vital Signs (Past 12 Hours) Vital Signs Temp Pulse Pulse Resp BP Pulse Ox O2 Del Method 11/08/23 07:01 37.1 C 70 18 131/69 94 Room Air 11/08/23 02:37 37.0 C 70 18 125/72 96 Room Air 11/07/23 23:18 70 11/07/23 22:38 37.0 C 71 19 126/71 96 Room Air PG Care Time/CCT Total # of Minutes Spent Total Time Spent with Patient: Total time spent is greater than 50% in coordination of care (as documented) at patient's floor/unit and/or counseling patient: Coding Level of Care Code 57103 SUB INP/OBS CARE 2/35MIN Diagnoses CKD (chronic kidney disease) stage 4, GFR 15-29 ml/min N18.4 Multiple myeloma C90.00 Type 2 diabetes mellitus with stage 4 chronic kidney disease, without long-term current use of insulin E11.22; N18.4 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 intermediate manager insulin use: without senior care use 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 complication status: with kidney complications 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 complication detail: with chronic kidney disease Chronic kidney disease stage: stage 4 (severe) Asthma J45.909 Gastroesophageal reflux disease, esophagitis presence not specified K21.9 Esophagitis presence: esophagitis presence not specified Atrial flutter I48.92 Heart failure with improved ejection fraction (HFimpEF) I50.32 Anemia D64.9 Anemia type: unspecified type (3) Type II diabetes mellitus 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 intermediate manager insulin use: without intermediate manager use 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 complication status: with kidney complications 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 complication detail: with chronic kidney disease Chronic kidney disease stage: stage 4 (severe) Qualified Code(s): E11.22 - Type 2 diabetes mellitus with diabetic chronic kidney disease; N18.4 - Chronic kidney disease, stage 4 (severe) (5) GERD (gastroesophageal reflux disease) Esophagitis presence: esophagitis presence not specified Qualified Code(s): K21.9 - Gastro-esophageal reflux disease without esophagitis (8) Anemia Anemia type: unspecified type Qualified Code(s): D64.9 - Anemia, unspecified
--- NOTE | 2023-11-08 12:04 | Nephrology Progress Note ---
Date of Service November 08, 2023 Assessment & Plan (1) JULIO (acute kidney injury): Plan: CKD III-IV with baseline creatinine 2.0-2.4 mg/dL. 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 No indication for dialysis at this time. HCO3 acceptable with PO NaHCO3 replacement. Creatinine is trending down. Electrolytes are acceptable. Barbara presented with increased TBW but intravascular volume depletion. Diuretics held. Volume status acceptable. Kidney function improving. IV albumin per hospitalist team. Revlimid held per oncology recommendations. (2) Anemia: Plan: Chronic, stable. Iron stores acceptable. Defer JANELLE management to hematology. (3) Nonischemic cardiomyopathy: Plan: Not currently decompensated. Avoid RAASi blockade due to JULIO. Document I/O's. Low sodium diet and fluid restriction to 1.2 L/day. (4) CKD (chronic kidney disease) stage 4, GFR 15-29 ml/min: Plan: Remains on calcitriol for sPTH. Calcium acceptable. Follow up with Dr. Stevenson post discharge. Admission and Anticipated Discharge Date Admission Date: November 03, 2023 Subjective No acute events overnight. No complaints this AM. Edema in left arm improved slightly. No signs of increased fluid retention reported. Denies dyspnea. Review of Systems Review of Systems: All systems reviewed & are unremarkable except as noted in HPI & below Physical Exam Constitutional: well developed and + edematous; no acute distress Eyes: no corneal abnormality ENMT: Mouth: no oral mucosal abnormality and oral mucous membranes not dry Neck: normal visual inspection and trachea midline Respiratory: normal respiratory effort Auscultation: lungs clear to auscultation bilaterally Cardiovascular: Rate/Rhythm: regular rate Heart Sounds: normal S1 and normal S2 Extremities: + edema Musculoskeletal: Extremities: no cyanosis and no clubbing Skin: normal turgor; no lesions Neurologic: Motor/Sensory: no tremor and no asterixis Psychiatric: Orientation: alert and oriented x 3 Results & Data Vital Signs (Past 12 Hours) Vital Signs Temp Pulse Resp BP Pulse Ox O2 Del Method 11/08/23 11:36 36.8 C 71 18 136/68 95 Room Air 11/08/23 07:01 37.1 C 70 18 131/69 94 Room Air 11/08/23 02:37 37.0 C 70 18 125/72 96 Room Air Laboratory Results Laboratory Results - last 24 hr 11/07/23 11/07/23 11/08/23 16:29 20:26 07:04 Sodium Potassium Chloride Carbon Dioxide Anion Gap BUN Creatinine Est Cr Clr Drug Dosing Est GFR ( Amer) Est GFR (Non-Af Amer) BUN/Creatinine Ratio Glucose POC Glucose 119 H 132 H 113 H Calcium Magnesium 11/08/23 11/08/23 08:17 10:59 Sodium 139 Potassium 4.0 Chloride 106 Carbon Dioxide 27 Anion Gap 6 BUN 32 H Creatinine 3.36 H D Est Cr Clr Drug Dosing 19.4 Est GFR ( Amer) 14.5 Est GFR (Non-Af Amer) 12.5 BUN/Creatinine Ratio 9.5 L Glucose 129 H POC Glucose 140 H Calcium 7.2 L Magnesium 2.3 PG Care Time/CCT Total # of Minutes Spent Total Time Spent with Patient: Total time spent is greater than 50% in coordination of care (as documented) at patient's floor/unit and/or counseling patient: Coding Level of Care Code 17558 SUB INP/OBS CARE 3/50MIN Diagnoses JULIO (acute kidney injury) N17.9 Anemia D64.9 Anemia type: unspecified type Nonischemic cardiomyopathy I42.8 CKD (chronic kidney disease) stage 4, GFR 15-29 ml/min N18.4 (2) Anemia Anemia type: unspecified type Qualified Code(s): D64.9 - Anemia, unspecified
[2023-11-08] MEDS: SODIUM BICARBONATE 650 MG TAB PO SCH (15:53)
[2023-11-09 07:58] LABS: Mean Corpuscular Hemoglobin 32.1 pg (25.0-34.0); Mean Corpuscular Hgb Conc 31.8 g/dL (32.0-36.0); Mean Corpuscular Volume 100.9 fL (80.0-100.0); Mean Platelet Volume 10.9 fL (9.4-12.4); Platelet Count 126 K/uL (130-400); RDW Coefficient of Variation 18.6 % (11.5-14.5); RDW Standard Deviation 67.1 fL (36.4-46.3); Red Blood Count 2.18 M/uL (4.20-5.40); White Blood Count 5.51 K/ul (4.8-10.8)
[2023-11-09 08:02] LABS: BUN Creatinine Ratio 10.1 (10-20); Calcium 7.5 mg/dl (8.6-10.3); Creatinine Clr Calc Pharmacy 21.1 ml/min; Est GFR (African American) 16.2 ml/min
[2023-11-09] MEDS ORDERED: SODIUM CHLORIDE 0.9% 250 ML IV PRN (09:53)
--- NOTE | 2023-11-09 09:55 | Nephrology Progress Note ---
Date of Service November 09, 2023 Assessment & Plan (1) JULIO (acute kidney injury): Plan: CKD III-IV with baseline creatinine 2.0-2.4 mg/dL. Recent JULIO requiring C[employer]IST [employer]S in the setting of sepsis due to cellulitis. No indication for dialysis at this time. HCO3 acceptable with PO NaHCO3 replacement. NaHCO3 reduce from BID to QD today. Creatinine is trending down. Electrolytes are acceptable. Volume status acceptable. Revlimid held. Close outpatient follow up and monitoring will be required if considering restarting therapy in the future. Mike will follow up with Dr. Stevenson in the nephrology clinic in the next 2 weeks. Please arrange close outpatient follow up with hematology as well. Obtain a repeat metabolic profile within 1 week of discharge. (2) Anemia: Plan: Hgb trending down. Plan of care discussed with Dr. Alaniz this AM. PRBC transfusion support per hospitalist team. Hematology oversight appreciated for continued management. (3) Nonischemic cardiomyopathy: Plan: Not currently decompensated. Avoid RAASi blockade due to JULIO. Diuretics held. Low sodium diet and fluid restriction to 1.2 L/day. (4) CKD (chronic kidney disease) stage 4, GFR 15-29 ml/min: Plan: Remains on calcitriol for sPTH. Calcium acceptable. Follow up with Dr. Stevenson post discharge. Admission and Anticipated Discharge Date Admission Date: November 03, 2023 Subjective No acute events overnight. Mike feels well this AM. She expects to be discharged today. Appetite is good. She is breathing comfortably. Edema stable. No complaints reported this AM. Review of Systems Review of Systems: All systems reviewed & are unremarkable except as noted in HPI & below Physical Exam Constitutional: well developed; no acute distress Eyes: no corneal abnormality ENMT: Mouth: no oral mucosal abnormality and oral mucous membranes not dry Neck: normal visual inspection and trachea midline Respiratory: normal respiratory effort Auscultation: lungs clear to auscultation bilaterally Cardiovascular: Rate/Rhythm: regular rate Heart Sounds: normal S1 and normal S2 Extremities: + edema Musculoskeletal: Extremities: no cyanosis and no clubbing Skin: normal turgor; no lesions Neurologic: Motor/Sensory: no tremor and no asterixis Psychiatric: Orientation: alert and oriented x 3 Results & Data Vital Signs (Past 12 Hours) Vital Signs Temp Pulse Pulse Resp BP Pulse Ox O2 Del Method 11/09/23 09:16 70 11/09/23 07:39 37.1 C 70 18 136/76 93 Room Air 11/09/23 02:41 37.0 C 70 18 151/82 H 94 Room Air 11/09/23 00:07 70 11/08/23 22:46 37.1 C 70 18 143/82 H 94 Room Air Laboratory Results Laboratory Results - last 24 hr 11/08/23 11/08/23 11/08/23 10:59 16:17 19:43 WBC RBC Hgb Hct MCV MCH MCHC RDW Std Deviation RDW Coeff of Amrita Plt Count MPV Sodium Potassium Chloride Carbon Dioxide Anion Gap BUN Creatinine Est Cr Clr Drug Dosing Est GFR ( Amer) Est GFR (Non-Af Amer) BUN/Creatinine Ratio Glucose POC Glucose 140 H 146 H 160 H Calcium 11/09/23 07:22 WBC 5.51 RBC 2.18 L Hgb 7.0 L Hct 22.0 L MCV 100.9 H MCH 32.1 MCHC 31.8 L RDW Std Deviation 67.1 H RDW Coeff of Amrita 18.6 H Plt Count 126 L MPV 10.9 Sodium 141 Potassium 4.0 Chloride 108 H Carbon Dioxide 26 Anion Gap 7 BUN 31 H Creatinine 3.07 H Est Cr Clr Drug Dosing 21.1 Est GFR ( Amer) 16.2 Est GFR (Non-Af Amer) 14.0 BUN/Creatinine Ratio 10.1 Glucose 102 H POC Glucose Calcium 7.5 L PG Care Time/CCT Total # of Minutes Spent Total Time Spent with Patient: Total time spent is greater than 50% in coordination of care (as documented) at patient's floor/unit and/or counseling patient: Coding Level of Care Code 07302 SUB INP/OBS CARE 3/50MIN Diagnoses JULIO (acute kidney injury) N17.9 Anemia D64.9 Anemia type: unspecified type Nonischemic cardiomyopathy I42.8 CKD (chronic kidney disease) stage 4, GFR 15-29 ml/min N18.4 (2) Anemia Anemia type: unspecified type Qualified Code(s): D64.9 - Anemia, unspecified
[2023-11-09 10:31] LABS: Reticulocyte % 2.25 % (0.50-2.00); Reticulocytes # 0.05 10^6/uL (0.020-0.100)
[2023-11-09 11:12] LABS: Folate (Folic Acid),Ser orPlas 8.55 ng/ml (>5.38)
--- NOTE | 2023-11-09 11:34 | Pharmacy Report ---
Pharmacy Glycemic Short Note 2 - Date of Service November 09, 2023 - Glycemic Short BSG Results (Last 24 hours): 11/08/23 11/08/23 11/09/23 16:17 19:43 07:22 Glucose 102 H POC Glucose 146 H 160 H OUTPATIENT ANTIDIABETIC REGIMEN: * Trulicity 1.5 mg SC weekly () * Lantus 10 units SC HS * HbA1c: 9% (08/10/23) ASSESSMENT: 11/08: * Ireen received no insulin yesterday. BSGs were [phone] mg/dL. * Serum BSG was 102 mg/dL this AM. * Continue with basal scale at HS and Novolog with correction only. 11/05: * Patient received a total of 4 units of bolus insulin yesterday. BSGs were [phone] mg/dL. Fasting BSG is 106 mg/dL. * Patient is ordered a diet but significant meal intake remains inconsistent. * Will continue with current lantus and novolog scales. * Patient is continued on home prednisone 5 mg. * Patient using own [facility] for BSG monitoring. Per nursing documentation today BSG was verified to be within 10% threshold for use. 11/03: * IJ is a 78 year old female who was sent to ED from [facility] on 11/02 due to abnormal blood work (Hemoglobin ~7) * Patient w/ recent hospitalization including ICU admission for septic shock requiring multiple vasopressors * Ultimately transferred to [facility] for CRRT * Patient w/ stage 4 CKD (not currently on HD) * Patient received 10 units of Lantus last evening * Originally NPO this morning, now ordered T2DM diet * Blood sugars today of 88 and 91 mg/dL - will be conservative w/ insulin regimen today PLAN FOR INPATIENT GLYCEMIC CONTROL: * Basal insulin * Lantus 0-5 units SC HS (see EHR for details) * Bolus insulin * NovoLog per scale ACHS or Q6hrs while NPO * Goal Range: Low 120 mg/dL - High 160 mg/dL * Correction Factor: 45 mg/dL/unit * No carb ratio
--- NOTE | 2023-11-09 12:20 | Hospitalist Progress Note ---
Date of Service November 09, 2023 Assessment & Plan (1) CKD (chronic kidney disease) stage 4, GFR 15-29 ml/min: Plan: Progressive CKD Admission she has potassium 4.8 with elevated creatinine 5.1. Creatinine was with recent trough of 2.14 on 09/17, following discharge from [facility] was 3.0, and has up trended to 4.1 over the last week. Mild volume overload without hypoxia or hyperkalemia. Chest x-ray is without significant pulmonary edema. [facility] for concern of impending need for dialysis Bumex on hold (not on home med list, will need to check long term records to see if she was truely on this) Lenalidomide held - suspect this is the main cause of her worsening renal function and will discuss with oncology She is not oliguric/anuric day of admission 11/03 reports urinating 11/04 cr 4.5 11/05 cr is trending down, received albumin yesterday 11/06 creatinine is trending down 3.86 11/07 creatinine 3.3 11/08 Cr 3.07 - she can be discharged from this stand point but needs blood transfusion for ongoing anemia (2) Multiple myeloma: Plan: Multiple Myeloma Under treatment at [facility] with Dr. Porter. Patient does not know which agent she is on, per chart review has been on lenalidomide. Approximate 4% incidence of renal failure associated with this, will hold at this Point no leukocytosis, hemoglobin 8.4 near her baseline on admission without any clinical signs of bleeding, platelet count 165 11/06 lenalidomide is on hold Hgb continues to trend down - will discuss with oncology and transfuse additional 1 unit of blood (3) Type II diabetes mellitus: Plan: Type II DM Continue insulin glargine 20 units at bedtime, SSI Goal BSG [id number] Is on Trulicity weekly outpatient Pharmacy glycemic consult in due to DM2 on insulin with progression of CKD (4) Asthma: Plan: Asthma Albuterol as needed No acute exacerbation (5) GERD (gastroesophageal reflux disease): Plan: Continue PPI daily (6) Atrial flutter: Plan: Paroxysmal A-fib Continue digoxin - level mildly elevated earlier in stay in setting for worsening CKD, will repeat level Continue apixaban Continue amiodarone Continue carvedilol (7) Heart failure with improved ejection fraction (HFimpEF): Plan: Heart failure with last EF approximately 30% With AICD No evidence of overt pulmonary edema on admission, does have some unchanged basilar effusions and pulmonary congestion No chest pain No signs of acute CHF decompensation (8) Anemia: Plan: anemia of chronic kidney diseases, Hgb 7.5 obtain iron study, monitor CBC hgb 7.3 transfuse 1 unit of blood Hgb 7.2 transfuse 1 unit 6/15 Hgb 8.1 Plan Chronic stable issues: Depression/anxiety: Continue duloxetine DVT prophylaxis: Eliquis Diet: Renal/DM2 Disposition: PCU CODE STATUS: Full code Admission and Anticipated Discharge Date Admission Date: November 03, 2023 Subjective She reports she is going back to the long term today but on discussion with Dr Bolton she has been saying this throughout the weekend in admission. Patient reports leg swelling much improved since admission. No chest pain, shortness of breath or dizziness. Review of Systems 2 Review of Systems: All systems reviewed & are unremarkable except as noted in HPI & below Physical Exam Constitutional: well developed; + not well nourished and no acute distress Cardiovascular: Rate/Rhythm: regular rate and regular rhythm Heart Sounds: no murmur Gastrointestinal (Abdomen): normal bowel sounds, soft, nontender, no hepatosplenomegaly Skin: scaling of lower extremity with wrinkled skin on legs, no cellulitis areas seen Results & Data Results & Data Vital Signs (Past 12 Hours) Vital Signs Temp Pulse Pulse Resp BP Pulse Ox O2 Del Method 11/09/23 11:10 37.1 C 74 18 133/75 95 Room Air 11/09/23 09:16 70 11/09/23 07:39 37.1 C 70 18 136/76 93 Room Air 11/09/23 02:41 37.0 C 70 18 151/82 H 94 Room Air PG Care Time/CCT Total # of Minutes Spent Total Time Spent with Patient: Total time spent is greater than 50% in coordination of care (as documented) at patient's floor/unit and/or counseling patient: Coding Level of Care Code 35095 SUB INP/OBS CARE 2/35MIN Diagnoses CKD (chronic kidney disease) stage 4, GFR 15-29 ml/min N18.4 Multiple myeloma C90.00 Type 2 diabetes mellitus with stage 4 chronic kidney disease, without long-term current use of insulin E11.22; N18.4 Chronic kidney disease stage: stage 4 (severe) 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 complication detail: with chronic kidney disease 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 complication status: with kidney complications 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 termite helper insulin use: without senior care use Asthma J45.909 Gastroesophageal reflux disease, esophagitis presence not specified K21.9 Esophagitis presence: esophagitis presence not specified Atrial flutter I48.92 Heart failure with improved ejection fraction (HFimpEF) I50.32 Anemia D64.9 Anemia type: unspecified type (3) Type II diabetes mellitus Chronic kidney disease stage: stage 4 (severe) 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 complication detail: with chronic kidney disease 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 complication status: with kidney complications 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 termite helper insulin use: without senior care use Qualified Code(s): E11.22 - Type 2 diabetes mellitus with diabetic chronic kidney disease; N18.4 - Chronic kidney disease, stage 4 (severe) (5) GERD (gastroesophageal reflux disease) Esophagitis presence: esophagitis presence not specified Qualified Code(s): K21.9 - Gastro-esophageal reflux disease without esophagitis (8) Anemia Anemia type: unspecified type Qualified Code(s): D64.9 - Anemia, unspecified
[2023-11-09] MEDS: oxyCODONE HCL IR 5 MG TAB (IMMEDIATE RELEASE) PO PRN (12:56)
[2023-11-10] MEDS: SODIUM BICARBONATE 650 MG TAB PO SCH (07:59)
[2023-11-10] MEDS: oxyCODONE HCL IR 5 MG TAB (IMMEDIATE RELEASE) PO PRN (09:05)
[2023-11-10 09:27] LABS: Basophils # (auto) 0.02 K/uL (0.00-0.20); Basophils % (auto) 0.3 %; Eosinophils # (auto) 0.21 K/uL (0.00-0.50); Eosinophils % (auto) 3.4 %; Hematocrit (blood only) 26.7 % (37.0-47.0); Hemoglobin 8.2 g/dl (12.0-16.0); Immature Granulocytes # (auto) 0.04 K/uL (0.01-0.20); Immature Granulocytes % (auto) 0.7 %; Lymphocytes # (auto) 1.35 K/uL (1.20-3.40); Lymphocytes % (auto) 22.1 %; Mean Corpuscular Hemoglobin 30.6 pg (25.0-34.0); Mean Corpuscular Hgb Conc 30.7 g/dL (32.0-36.0); Mean Corpuscular Volume 99.6 fL (80.0-100.0); Mean Platelet Volume 10.2 fL (9.4-12.4); Monocytes # (auto) 0.72 K/uL (0.11-0.59); Monocytes % (auto) 11.8 %; Neutrophils # (auto) 3.76 K/uL (1.40-6.50); Neutrophils % (auto) 61.7 %; Platelet Count 133 K/uL (130-400); RDW Standard Deviation 74.4 fL (36.4-46.3); Red Blood Count 2.68 M/uL (4.20-5.40)
[2023-11-10 09:41] LABS: BUN Creatinine Ratio 10.6 (10-20); Calcium 7.3 mg/dl (8.6-10.3); Creatinine Clr Calc Pharmacy 22.9 ml/min; Est GFR (Non-African American) 15.5 ml/min; Magnesium 2.3 mg/dl (1.7-2.4); Potassium 4.4 mmol/L (3.5-5.1)
[2023-11-10 09:51] LABS: Anisocytosis Present; Polychromasia 1+; Tear Drop Cells 1+
--- NOTE | 2023-11-10 10:27 | Nephrology Progress Note ---
Date of Service November 10, 2023 Assessment & Plan (1) JULIO (acute kidney injury): Plan: CKD III-IV with baseline creatinine 2.0-2.4 mg/dL. 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 No indication for dialysis at this time. Stop oral NaHCO3 today. Creatinine is trending down. Electrolytes are acceptable. Volume status acceptable. Revlimid held. Close outpatient follow up and monitoring will be required if considering restarting therapy in the future. Mike will follow up with Dr. Stevenson in the nephrology clinic in the next 2 weeks. Please arrange close outpatient follow up with hematology as well. Obtain a repeat metabolic profile within 1 week of discharge. (2) Anemia: Plan: s/p 1 unit PRBC transfusion yesterday. Hematology oversight appreciated for continued management. (3) Nonischemic cardiomyopathy: Plan: Not currently decompensated. Avoid RAASi blockade due to JULIO. Diuretics held. Low sodium diet and fluid restriction to 1.2 L/day. (4) CKD (chronic kidney disease) stage 4, GFR 15-29 ml/min: Plan: Remains on calcitriol for sPTH. Calcium acceptable. Follow up with Dr. Stevenson post discharge. Admission and Anticipated Discharge Date Admission Date: November 03, 2023 Subjective No acute events overnight. Mike reports a mild discomfort in her left leg. She otherwise feels well. Denies significant fluid retention or edema. Breathing comfortably. Review of Systems Review of Systems: All systems reviewed & are unremarkable except as noted in HPI & below Physical Exam Constitutional: well developed; no acute distress Eyes: no corneal abnormality ENMT: Mouth: no oral mucosal abnormality and oral mucous membranes not dry Neck: normal visual inspection and trachea midline Respiratory: normal respiratory effort Auscultation: lungs clear to auscultation bilaterally Cardiovascular: Rate/Rhythm: regular rate Heart Sounds: normal S1 and normal S2 Extremities: + edema (compression stockings to knee) Musculoskeletal: Extremities: no cyanosis and no clubbing Skin: normal turgor; no lesions Neurologic: Motor/Sensory: no tremor and no asterixis Psychiatric: Orientation: alert and oriented x 3 Results & Data Vital Signs (Past 12 Hours) Vital Signs Temp Pulse Pulse Resp BP BP Pulse Ox 11/10/23 09:51 106 H 18 96 11/10/23 07:15 36.6 C 70 18 170/85 H 94 11/10/23 06:11 36.8 C 74 18 169/80 H 96 11/10/23 05:45 36.8 C 74 16 168/79 H 94 11/10/23 04:46 36.7 C 68 18 167/89 H 97 11/10/23 04:00 36.8 C 70 18 163/83 H 92 11/10/23 03:40 36.8 C 70 18 152/79 H 93 O2 Del Method 11/10/23 09:51 11/10/23 07:15 Room Air 11/10/23 06:11 Room Air 11/10/23 05:45 Room Air 11/10/23 04:46 Room Air 11/10/23 04:00 11/10/23 03:40 Laboratory Results Laboratory Results - last 24 hr 11/09/23 11/09/23 11/09/23 10:02 10:26 20:13 WBC RBC Hgb Hct MCV MCH MCHC RDW Std Deviation RDW Coeff of Amrita Plt Count MPV Immature Gran % (Auto) Neut % (Auto) Lymph % (Auto) [place] % (Auto) Eos % (Auto) Baso % (Auto) Reticulocyte % (Auto) 2.25 H Neut # (Auto) Lymph # (Auto) [place] # (Auto) Eos # (Auto) Baso # (Auto) Reticulocyte # 0.050 Immature Gran # (Auto) Polychromasia Anisocytosis Tear Drop Cells Sodium Potassium Chloride Carbon Dioxide Anion Gap BUN Creatinine Est Cr Clr Drug Dosing Est GFR ( Amer) Est GFR (Non-Af Amer) BUN/Creatinine Ratio Glucose POC Glucose 131 H Calcium Magnesium Iron 36 TIBC 127 L Unsaturated IBC 91 L Transferrin % Sat 28 Ferritin 292.0 Vitamin B12 648 Folate 8.55 Digoxin 1.9 Blood Type O Negative Antibody Screen POSITIVE A Antibody Identification Pending Antibody ID Referred Pending Antibody ID Comment Pending Crossmatch See Detail 11/10/23 11/10/23 07:13 09:00 WBC 6.10 RBC 2.68 L Hgb 8.2 L Hct 26.7 L MCV 99.6 MCH 30.6 MCHC 30.7 L RDW Std Deviation 74.4 H RDW Coeff of Amrita 21.0 H Plt Count 133 MPV 10.2 Immature Gran % (Auto) 0.7 Neut % (Auto) 61.7 Lymph % (Auto) 22.1 [place] % (Auto) 11.8 Eos % (Auto) 3.4 Baso % (Auto) 0.3 Reticulocyte % (Auto) Neut # (Auto) 3.76 Lymph # (Auto) 1.35 [place] # (Auto) 0.72 H Eos # (Auto) 0.21 Baso # (Auto) 0.02 Reticulocyte # Immature Gran # (Auto) 0.04 Polychromasia 1+ Anisocytosis Present Tear Drop Cells 1+ Sodium 141 Potassium 4.4 Chloride 108 H Carbon Dioxide 29 Anion Gap 4 BUN 30 H Creatinine 2.82 H Est Cr Clr Drug Dosing 22.9 Est GFR ( Amer) 18.0 Est GFR (Non-Af Amer) 15.5 BUN/Creatinine Ratio 10.6 Glucose 141 H POC Glucose 118 H Calcium 7.3 L Magnesium 2.3 Iron TIBC Unsaturated IBC Transferrin % Sat Ferritin Vitamin B12 Folate Digoxin Blood Type Antibody Screen Antibody Identification Antibody ID Referred Antibody ID Comment Crossmatch PG Care Time/CCT Total # of Minutes Spent Total Time Spent with Patient: Total time spent is greater than 50% in coordination of care (as documented) at patient's floor/unit and/or counseling patient: Coding Level of Care Code 64968 SUB INP/OBS CARE 3/50MIN Diagnoses JULIO (acute kidney injury) N17.9 Anemia D64.9 Anemia type: unspecified type Nonischemic cardiomyopathy I42.8 CKD (chronic kidney disease) stage 4, GFR 15-29 ml/min N18.4 (2) Anemia Anemia type: unspecified type Qualified Code(s): D64.9 - Anemia, unspecified
--- NOTE | 2023-11-10 12:13 | Pharmacy Report ---
Pharmacy Glycemic Sign Off Nt - Date of Service November 10, 2023 - Assessment & Plan ASSESSMENT: * Pharmacy was consulted by Dr. De La Cruz on 11/03/23 for glycemic control and to write orders per [facility] inpatient glycemic control protocol. * Patient has required minor changes to insulin regimen while admitted: * Basal insulin decreased * Carb coverage removed * Patient has received no insulin in the past 48 hours. Patient last received a dose of basal insulin (Lantus 10 units) on 11/02. Continues on prednisone 5 mg PO daily. PLAN FOR INPATIENT GLYCEMIC CONTROL: No changes needed to current regimen. * Continue basal insulin with Lantus 0-5 units SQ HS (5 units for BSG 180 mg/dL or more) * Continue NovoLog per scale ACHS/Q6hrs while NPO * Goal range = 120 -160 mg/dl * CF = 45 mg/dL/unit * No carb coverage * Pharmacy is signing off of glycemic consult and will no longer be making adjustments to inpatient regimen. Please feel free to re-consult if needed. Thank you.
--- NOTE | 2023-11-10 15:50 | Hospitalist Progress Note ---
Date of Service November 10, 2023 Assessment & Plan (1) JULIO (acute kidney injury): Plan: Suspected secondary to Revlimid Discharged from [facility] on Bumex 1mg PO daily, ?held at [facility] (October 26- ) as not on home med list, has continued off this admission She remains hypervolemic but continues to diurese with weight reduction despite no diuretics as her kidneys have recovered off Revlimid, will defer restart diuretics to nephrology if needed to continue diuresis (2) Multiple myeloma: Plan: Revlimid on hold - discussed with Dr Porter and will be discontinued on discharge s/p 2 units packed RBCs this admission, will continue to check daily Hgb and transfuse for Hgb < 7 Discussed possible EPO with Dr Porter and recommended holding off until outpatient (3) Wound of left lower extremity: Plan: Recent septic shock in September from this wound - completed antibiotic course at [facility] No current cellulitis Continue wound care with wound care nurse instructions (4) Abnormal ultrasound: Plan: 14.6cm LUQ mass seen on ultrasound 11/[address] A/P ordered today and mass seen on ultrasound suspected to be consolidation of left lung (5) Abnormal CT of the abdomen: Plan: Incidental findings of hypodense lesion on liver, 1.6cm left adrenal gland adenoma and spleen lesion. Can follow up with her oncologist to determine significance of these (6) Type II diabetes mellitus: Plan: Hemoglobin A1C 9.0 in July Refusing insulin with glucose 113 - 164 Pharmacy glycemic control now signed off Can restart on Trulicity on discharge as long as not causing N/V/diarrhea (7) Atrial flutter: Plan: Paroxysmal A-fib Continue digoxin - level now therapeutic Continue apixaban - increase back to 5mg PO BID now renal function improving, does not meet criteria for reduced dose Continue amiodarone Continue carvedilol (8) Heart failure with improved ejection fraction (HFimpEF): Plan: Heart failure with last EF approximately 30% With AICD (9) Anemia: Plan: (see myeloma) Plan Chronic stable issues: - Depression/anxiety: Continue duloxetine - asthma - GERD VTE Prophylaxis - Eliquis Diet - Low Na, T2DM Disposition - medically stable for discharge pending placement Admission and Anticipated Discharge Date Admission Date: November 03, 2023 Subjective No acute concerns of questions. She is feeling better and has more energy every day. On discussion with [facility] she relinquished her bed therefore authorization again sent. Review of Systems Review of Systems: All systems reviewed & are unremarkable except as noted in HPI & below Physical Exam Constitutional: well developed; + not well nourished and no acute distress ENMT: external ear and nose normal, oropharynx normal Respiratory: normal respiratory effort; no respiratory distress Auscultation: + diminished lung sounds (bibasal); no crackles and no wheezes Cardiovascular: Rate/Rhythm: regular rate and regular rhythm Heart Sounds: no murmur Extremities: + pedal edema Gastrointestinal (Abdomen): normal bowel sounds, soft, nontender, no hepatosplenomegaly Skin: ulcer on left lateral lower leg without surrounding cellulitis Neurologic: moves all extremities and awake; not confused Psychiatric: A+Ox3, euthymic affect Results & Data Results & Data Vital Signs (Past 12 Hours) Vital Signs Temp Pulse Pulse Resp BP BP Pulse Ox 11/10/23 15:33 36.8 C 71 18 151/79 H 96 11/10/23 09:51 106 H 18 96 11/10/23 07:15 36.6 C 70 18 170/85 H 94 11/10/23 06:11 36.8 C 74 18 169/80 H 96 11/10/23 05:45 36.8 C 74 16 168/79 H 94 11/10/23 04:46 36.7 C 68 18 167/89 H 97 11/10/23 04:00 36.8 C 70 18 163/83 H 92 O2 Del Method 11/10/23 15:33 Room Air 11/10/23 09:51 11/10/23 07:15 Room Air 11/10/23 06:11 Room Air 11/10/23 05:45 Room Air 11/10/23 04:46 Room Air 11/10/23 04:00 Laboratory Results Abnormal lab results 11/09/23 11/09/23 11/10/23 Range/Units 10:02 20:13 07:13 RBC (4.20-5.40) M/uL Hgb (12.0-16.0) g/dl Hct (37.0-47.0) % MCHC (32.0-36.0) g/dL RDW Std Deviation (36.4-46.3) fL RDW Coeff of Amrita (11.5-14.5) % [place] # (Auto) (0.11-0.59) K/uL Chloride (98-107) mmol/L BUN (6-23) mg/dl Creatinine (0.6-1.2) mg/dl Glucose (70-99(Fasting)) mg/dl POC Glucose 131 H 118 H (70-99) mg/dl Calcium (8.6-10.3) mg/dl Antibody Screen POSITIVE A Crossmatch See Detail 11/10/23 11/10/23 11/10/23 Range/Units 09:00 11:35 16:38 RBC 2.68 L (4.20-5.40) M/uL Hgb 8.2 L (12.0-16.0) g/dl Hct 26.7 L (37.0-47.0) % MCHC 30.7 L (32.0-36.0) g/dL RDW Std Deviation 74.4 H (36.4-46.3) fL RDW Coeff of Amrita 21.0 H (11.5-14.5) % [place] # (Auto) 0.72 H (0.11-0.59) K/uL Chloride 108 H (98-107) mmol/L BUN 30 H (6-23) mg/dl Creatinine 2.82 H (0.6-1.2) mg/dl Glucose 141 H (70-99(Fasting)) mg/dl POC Glucose 134 H 163 H (70-99) mg/dl Calcium 7.3 L (8.6-10.3) mg/dl Antibody Screen Crossmatch PG Care Time/CCT Total # of Minutes Spent Total Time Spent with Patient: Total time spent is greater than 50% in coordination of care (as documented) at patient's floor/unit and/or counseling patient: Coding Level of Care Code 51488 SUB INP/OBS CARE 3/50MIN Diagnoses JULIO (acute kidney injury) N17.9 Multiple myeloma C90.00 Wound of left lower extremity S81.802A Abnormal ultrasound R93.[address] of the abdomen R93.5 Type 2 diabetes mellitus with stage 4 chronic kidney disease, without long-term current use of insulin E11.22; N18.4 Chronic kidney disease stage: stage 4 (severe) 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 complication detail: with chronic kidney disease 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 complication status: with kidney complications 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 regional intermodal truck driver insulin use: without alf use Atrial flutter I48.92 Heart failure with improved ejection fraction (HFimpEF) I50.32 Anemia D64.9 Anemia type: unspecified type (6) Type II diabetes mellitus Chronic kidney disease stage: stage 4 (severe) 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 complication detail: with chronic kidney disease 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 complication status: with kidney complications 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 regional intermodal truck driver insulin use: without alf use Qualified Code(s): E11.22 - Type 2 diabetes mellitus with diabetic chronic kidney disease; N18.4 - Chronic kidney disease, stage 4 (severe) (9) Anemia Anemia type: unspecified type Qualified Code(s): D64.9 - Anemia, unspecified
--- NOTE | 2023-11-10 16:06 | CT Scan Report ---
ABDOMEN AND PELVIS CT WITHOUT CONTRAST CT DOSE: 1461.59 mGy.cm HISTORY: Acute generalized abdominal pain with renal failure. History of multiple myeloma. LUQ mass on renal US TECHNIQUE: Multiaxial CT images of the abdomen and pelvis were performed without contrast. A dose lo wering technique was utilized adhering to the principles of ALARA. COMPARISON STUDY: Renal ultrasound 11/03/2023, PET CT 06/10/2023. FINDINGS: Cardiomegaly with partially imaged pacer leads. Probable pericardial cyst is redemonstrated on image 1 series 3, which is partially imaged. Moderate layering pleural effusions, left greater th an right are similar to prior. Dependent bibasilar consolidation with parenchymal calcifications agai n noted. Mild intralobular septal thickening. No free air. Previously noted echogenic splenic lesion may correlate with an indeterminate area of de creased attenuation within the spleen on image 34 series 2 measuring 2.4 cm, not well-evaluated witho ut IV contrast. Unremarkable pancreas and right adrenal gland. A 1.6 cm left adrenal gland adenoma. C holecystectomy. Indeterminate 2.2 cm hypodense lesion of the left hepatic lobe on image 42 series 2. Bilateral perinephric stranding with cortical thinning. No renal or ureteral calculi or hydronephrosi s. Pelvic structures are not well seen secondary to streak artifact from the hip arthroplasties. Trac e abdominal pelvic ascites. No abdominal aortic aneurysm. Calcifications and atrophy of the right pso as and iliopsoas muscles. No intra-abdominal mass lesions. No bowel obstruction or bowel wall thickening. Moderate colonic feca l retention. The appendix is not visualized. Postoperative changes of the anterior abdominal wall. Vince dy wall edema. Degenerative and postoperative changes of the spine. No new bone lesions are identifie d. IMPRESSION: 1. Limited exam without the use of contrast and also secondary to respiratory motion artifact. 2. Cardiomegaly with mild pulmonary edema and moderate layering pleural effusions with dependent biba silar consolidation/atelectasis. Consolidated of the left lower lobe likely accounted for the questio adrian lesion on prior ultrasound. 3. No intra-abdominal or intrapelvic mass lesions identified. 4. Additional findings as above. ACT 112: Negative or not required by law. The above report was generated using voice recognition software. It may contain grammatical, syntax o r spelling errors. Dictated: 11/10/2023 1:24 PM Transcribed: 11/10/2023 1:49 PM Sam [id number] [email or web address] Electronically signed by: Haseeb Steiner M.D. 11/10/2023 4:05 PM
[2023-11-10] MEDS: APIXABAN 5 MG TABLET PO SCH (20:31)
[2023-11-11 08:16] LABS: Hematocrit (blood only) 26.5 % (37.0-47.0); Hemoglobin 8.5 g/dl (12.0-16.0); Mean Corpuscular Hemoglobin 31.4 pg (25.0-34.0); Mean Corpuscular Hgb Conc 32.1 g/dL (32.0-36.0); Mean Corpuscular Volume 97.8 fL (80.0-100.0); Mean Platelet Volume 10.1 fL (9.4-12.4); Platelet Count 129 K/uL (130-400); RDW Coefficient of Variation 21.2 % (11.5-14.5); RDW Standard Deviation 72.9 fL (36.4-46.3); Red Blood Count 2.71 M/uL (4.20-5.40); White Blood Count 5.36 K/ul (4.8-10.8)
[2023-11-11 08:44] LABS: BUN Creatinine Ratio 11.1 (10-20); Calcium 7.2 mg/dl (8.6-10.3); Creatinine Clr Calc Pharmacy 24.5 ml/min; Est GFR (African American) 19.6 ml/min; Est GFR (Non-African American) 16.9 ml/min; Potassium 4.3 mmol/L (3.5-5.1)
--- NOTE | 2023-11-11 11:03 | Nephrology Progress Note ---
Date of Service November 11, 2023 Assessment & Plan (1) JULIO (acute kidney injury): Plan: CKD III-IV with baseline creatinine 2.0-2.4 mg/dL. Recent JULIO requiring LONG TERM CARE ADMINISTRATOR in the setting of sepsis due to cellulitis. No indication for dialysis at this time. Creatinine is trending down. Electrolytes are acceptable. For fluid retention, Bumex 1 mg daily was restarted today. Revlimid has been stopped due to JULIO. Mike will follow up with Dr. Stevenson in the nephrology clinic in the next 2 weeks. Obtain a repeat metabolic profile within 1 week of discharge. (2) Anemia: Plan: s/p 1 unit PRBC transfusion 02/08. JANELLE therapy per hematology. (3) Nonischemic cardiomyopathy: Plan: Not currently decompensated. Avoid RAASi blockade due to JULIO. Diuretics restarted today. Low sodium diet and fluid restriction to 1.2 L/day. (4) CKD (chronic kidney disease) stage 4, GFR 15-29 ml/min: Plan: Remains on calcitriol for sPTH. Calcium acceptable. Follow up with Dr. Stevenson post discharge. Admission and Anticipated Discharge Date Admission Date: November 03, 2023 Subjective No acute events overnight. Plan of care discussed with Dr. Alaniz yesterday. Mike feels well. She reports some increased dependent edema in her thighs. She is breathing comfortably. She feels well overall and hopes to be discharged. Review of Systems Review of Systems: All systems reviewed & are unremarkable except as noted in HPI & below Physical Exam Constitutional: well developed and + edematous; no acute distress Eyes: no corneal abnormality ENMT: Mouth: no oral mucosal abnormality and oral mucous membranes not dry Neck: normal visual inspection and trachea midline Respiratory: normal respiratory effort Auscultation: lungs clear to auscultation bilaterally and + diminished lung sounds (BL bases) Cardiovascular: Rate/Rhythm: regular rate Heart Sounds: normal S1 and normal S2 Extremities: + edema (compression stockings to knee) Musculoskeletal: Extremities: no cyanosis and no clubbing Skin: normal turgor; no lesions Neurologic: Motor/Sensory: no tremor and no asterixis Psychiatric: Orientation: alert and oriented x 3 Results & Data Vital Signs (Past 12 Hours) Vital Signs Temp Pulse Resp BP Pulse Ox O2 Del Method 11/11/23 08:08 36.6 C 67 16 157/78 H 94 Room Air Laboratory Results Laboratory Results - last 24 hr 11/10/23 11/10/23 11/10/23 11:35 16:38 20:21 WBC RBC Hgb Hct MCV MCH MCHC RDW Std Deviation RDW Coeff of Amrita Plt Count MPV Sodium Potassium Chloride Carbon Dioxide Anion Gap BUN Creatinine Est Cr Clr Drug Dosing Est GFR ( Amer) Est GFR (Non-Af Amer) BUN/Creatinine Ratio Glucose POC Glucose 134 H 163 H 154 H Calcium 11/11/23 11/11/23 07:46 07:51 WBC 5.36 RBC 2.71 L Hgb 8.5 L Hct 26.5 L MCV 97.8 MCH 31.4 MCHC 32.1 RDW Std Deviation 72.9 H RDW Coeff of Amrita 21.2 H Plt Count 129 L MPV 10.1 Sodium 140 Potassium 4.3 Chloride 108 H Carbon Dioxide 26 Anion Gap 6 BUN 29 H Creatinine 2.62 H Est Cr Clr Drug Dosing 24.5 Est GFR ( Amer) 19.6 Est GFR (Non-Af Amer) 16.9 BUN/Creatinine Ratio 11.1 Glucose 115 H POC Glucose 112 H Calcium 7.2 L PG Care Time/CCT Total # of Minutes Spent Total Time Spent with Patient: Total time spent is greater than 50% in coordination of care (as documented) at patient's floor/unit and/or counseling patient: Coding Level of Care Code 04345 SUB INP/OBS CARE 3/50MIN Diagnoses JULIO (acute kidney injury) N17.9 Anemia D64.9 Anemia type: unspecified type Nonischemic cardiomyopathy I42.8 CKD (chronic kidney disease) stage 4, GFR 15-29 ml/min N18.4 (2) Anemia Anemia type: unspecified type Qualified Code(s): D64.9 - Anemia, unspecified
[2023-11-11] MEDS: BUMETANIDE 1 MG TAB PO SCH (12:23)
--- NOTE | 2023-11-11 13:08 | Hospitalist Progress Note ---
Date of Service November 11, 2023 Assessment & Plan (1) JULIO (acute kidney injury): Plan: Renal function continues to improve since Revlimid was discontinued Patient had required a brace. Of renal REED MAN for some time Marine Habitat Resource Specialist on consult appreciate commendations Bumex has been resumed. Continue to monitor renal functions. (2) Multiple myeloma: Plan: Revlimid on hold - per Dr Porter and will be discontinued on discharge s/p 2 units packed RBCs this admission, will continue to check daily Hgb and transfuse for Hgb < 7 Discussed possible EPO with Dr Porter and recommended holding off until outpatient (3) Wound of left lower extremity: Plan: Recent septic shock in September from this wound - completed antibiotic course at [facility] No current cellulitis Continue wound care with wound care nurse instructions (4) Abnormal ultrasound: Plan: 14.6cm LUQ mass seen on ultrasound 11/[address] A/P ordered today and mass seen on ultrasound suspected to be consolidation of left lung (5) Abnormal CT of the abdomen: Plan: Incidental findings of hypodense lesion on liver, 1.6cm left adrenal gland adenoma and spleen lesion. Can follow up with her oncologist to determine significance of these (6) Type II diabetes mellitus: Plan: Hemoglobin A1C 9.0 in July Refusing insulin with glucose 113 - 164 Pharmacy glycemic control now signed off Can restart on Trulicity on discharge as long as not causing N/V/diarrhea (7) Atrial flutter: Plan: Paroxysmal A-fib Continue digoxin - level now therapeutic Continue apixaban - increase back to 5mg PO BID now renal function improving, does not meet criteria for reduced dose Continue amiodarone Continue carvedilol (8) Heart failure with improved ejection fraction (HFimpEF): Plan: Heart failure with last EF approximately 30% With AICD (9) Anemia: Plan: (see myeloma) Plan Chronic stable issues: - Depression/anxiety: Continue duloxetine - asthma - GERD VTE Prophylaxis - Eliquis Diet - Low Na, T2DM Disposition - medically stable for discharge pending placement Admission and Anticipated Discharge Date Admission Date: November 03, 2023 Subjective Patient seen and examined, looking forward to being discharged to [facility] facility. Denies any new complaints today Review of Systems Review of Systems: All systems reviewed are negative, apart from the ones contained in the history. Physical Exam Physical Exam: The patient is awake, alert and oriented 3, well developed and well nourished, normocephalic and atraumatic, lying in bed and in no acute distress. HEENT--PERRL, EOMI, mucous membranes and oropharynx mildly dry Neck--supple. No JVD. No bruits. Thyroid normal, trachea midline, no adenopathy. Heart--normal S1 and S2. No murmurs, rubs or gallops. Lungs--clear bilaterally, no respiratory distress, no accessory muscle use. Abdomen--normal bowel sounds and soft. Extremities--no cyanosis or clubbing. No edema. Dermatologic--normal skin turgor, normal color, no abnormal lymph nodes, no rash. Neurologic--cranial nerves II through XII grossly intact. Rheumatologic--normal range of motion. Psychiatric--normal affect. Results & Data Results & Data Vital Signs (Past 12 Hours) Vital Signs Temp Pulse Resp BP Pulse Ox O2 Del Method 11/11/23 08:08 97.9 F 67 16 157/78 H 94 Room Air PG Care Time/CCT Total # of Minutes Spent Total Time Spent with Patient: Total time spent is greater than 50% in coordination of care (as documented) at patient's floor/unit and/or counseling patient: Coding Level of Care Code 23473 SUB INP/OBS CARE 2/35MIN Diagnoses JULIO (acute kidney injury) N17.9 Multiple myeloma C90.00 Wound of left lower extremity S81.802A Abnormal ultrasound R93.[address] of the abdomen R93.5 Type 2 diabetes mellitus with stage 4 chronic kidney disease, without long-term current use of insulin E11.22; N18.4 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 long-term insulin use: without long-term use 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 complication status: with kidney complications 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 complication detail: with chronic kidney disease Chronic kidney disease stage: stage 4 (severe) Atrial flutter I48.92 Heart failure with improved ejection fraction (HFimpEF) I50.32 Anemia D64.9 Anemia type: unspecified type Time Spent (min) 35 (6) Type II diabetes mellitus 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 termite helper insulin use: without termite helper use 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 complication status: with kidney complications 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 complication detail: with chronic kidney disease Chronic kidney disease stage: stage 4 (severe) Qualified Code(s): E11.22 - Type 2 diabetes mellitus with diabetic chronic kidney disease; N18.4 - Chronic kidney disease, stage 4 (severe) (9) Anemia Anemia type: unspecified type Qualified Code(s): D64.9 - Anemia, unspecified
[2023-11-12 07:04] LABS: Hematocrit (blood only) 26.4 % (37.0-47.0); Hemoglobin 8.4 g/dl (12.0-16.0); Mean Corpuscular Hemoglobin 31.3 pg (25.0-34.0); Mean Corpuscular Hgb Conc 31.8 g/dL (32.0-36.0); Mean Corpuscular Volume 98.5 fL (80.0-100.0); Mean Platelet Volume 10.2 fL (9.4-12.4); Platelet Count 133 K/uL (130-400); RDW Coefficient of Variation 20.7 % (11.5-14.5); RDW Standard Deviation 73.1 fL (36.4-46.3); Red Blood Count 2.68 M/uL (4.20-5.40); White Blood Count 5.03 K/ul (4.8-10.8)
[2023-11-12 07:20] LABS: BUN Creatinine Ratio 10.5 (10-20); Calcium 7.3 mg/dl (8.6-10.3); Creatinine Clr Calc Pharmacy 25.1 ml/min; Est GFR (African American) 20.2 ml/min; Est GFR (Non-African American) 17.4 ml/min; Potassium 4.2 mmol/L (3.5-5.1)
--- NOTE | 2023-11-12 09:55 | Discharge Summary ---
Date of Service November 12, 2023 Admission HPI Per Admitting Provider Mike is a 78-year-old female with past medical history of A-fib on Eliquis, CKD 4, nonischemic cardiomyopathy with biventricular AICD, multiple myeloma, hypothyroidism, cecal volvulus s/p ileocecectomy, hypertension, psoriatic arthritis, DM 2, and recent ICU admission 10/11/2023 for septic SSTI with shock requiring multiple vasopressors for which patient was transferred to [facility] as she required CRRT which was subsequently able to be discontinued. That hospitalization was complicated by small bowel obstruction which improved with medical treatment/NGT. Completed antibiotics. Third, hemodialysis was not required, and she progressed to discharge from that facility on 10/27/2023 Patient seen at bedside. She reports that she was not told that her labs are abnormal she will not know anything was wrong, and she feels great. She reports her legs were freshly wrapped and dressed with wound care this morning. She has not had any recent fever, chills, sweats, lightheadedness, dizziness, chest pain, chest pressure. No dysuria. She has been peeing normally and had light-colored urinary output this morning. She has no muscle aches or pains. Endorses chronic swelling/pitting edema in her lower extremities which has not changed in the last week. Denies orthopnea/dyspnea She reports after her admission to [facility] which involved 2 sessions of dialysis, she subsequently completed antibiotics and [facility] she feels she has been doing well overall. He is taking all medications as directed, although does not know what these are she just takes what is provided to her by [facility]. She did take her medications this morning. Full code, would want dialysis if her renal function were continuing decline or if there is any emergent indication for this. Patient is under [facility]. Does not know the name of the medication she is taking for this, but believes she is seen Dr. Porter. Medical History: Reviewed Medications: Reviewed Surgical History: Reviewed Family history: Reviewed Allergies: Reviewed Social History: Reviewed Denies tobacco/etoh use Code Status: Full Principal Diagnosis JULIO, Discharge Exam The patient is awake, alert and oriented 3, well developed and well nourished, normocephalic and atraumatic, lying in bed and in no acute distress. HEENT--PERRL, EOMI, mucous membranes and oropharynx mildly dry Neck--supple. No JVD. No bruits. Thyroid normal, trachea midline, no adenopathy. Heart--normal S1 and S2. No murmurs, rubs or gallops. Lungs--clear bilaterally, no respiratory distress, no accessory muscle use. Abdomen--normal bowel sounds and soft. Extremities--no cyanosis or clubbing. No edema. Dermatologic--normal skin turgor, normal color, no abnormal lymph nodes, no rash. Neurologic--cranial nerves II through XII grossly intact. Rheumatologic--normal range of motion. Psychiatric--normal affect. Discharge Data Allergies Allergy/AdvReac Type Severity Reaction Status Date / Time codeine Allergy Severe Anaphylaxis Verified 10/11/23 15:03 celecoxib [From Celebrex] Allergy Intermediate RASH Verified 10/11/23 15:03 cephalexin [From Keflex] Allergy Intermediate Rash Verified 10/11/23 15:03 hydrocodone Allergy Intermediate Rash Verified 10/11/23 15:03 Iodinated Contrast Media Allergy Intermediate RASH Verified 10/11/23 15:03 nickel Allergy Intermediate Rash Verified 10/11/23 15:03 oxycodone Allergy Intermediate Rash Verified 10/11/23 15:03 Sulfa (Sulfonamide Allergy Intermediate RASH TO Verified 10/11/23 15:03 Antibiotics) SULFA DRUGS tetracycline Allergy Intermediate RASH Verified 10/11/23 15:03 capsaicin AdvReac Intermediate CREATINE Verified 10/11/23 15:03 ELEVATION diclofenac AdvReac Intermediate CREATINE Verified 10/11/23 15:03 ELEVATION propylene glycol AdvReac Intermediate CREATINE Verified 10/11/23 15:03 ELEVATION "PREP WITH BLUE DYE" Allergy Intermediate Rash Uncoded 10/11/23 15:03 Consultations 11/03/23 16:29 ED Decision to Admit Stat 11/03/23 17:13 Consult Nephrology Routine Ordered Studies 11/03/23 16:42 US Renal Bladder [US renal/blad retro comp] Stat 11/10/23 11:50 CT Abdomen and Pelvis [CT abd pelvis wo con] Urgent Hospital Course (1) JULIO (acute kidney injury): Renal function continues to improve since Revlimid was discontinued Patient had required a brief period of renal BULLARD OPERATOR for 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 Continue to monitor renal functions. (2) Multiple myeloma: Revlimid on hold - per Dr Porter and will be discontinued on discharge s/p 2 units packed RBCs this admission, will continue to check daily Hgb and transfuse for Hgb < 7 Discussed possible EPO with Dr Porter and recommended holding off until outpatient (3) Wound of left lower extremity: Recent septic shock in September from this wound - completed antibiotic course at [facility] No current cellulitis Continue wound care with wound care nurse instructions (4) Abnormal ultrasound: 14.6cm LUQ mass seen on ultrasound 11/[address] A/P ordered today and mass seen on ultrasound suspected to be consolidation of left lung (5) Abnormal CT of the abdomen: Incidental findings of hypodense lesion on liver, 1.6cm left adrenal gland adenoma and spleen lesion. Can follow up with her oncologist to determine significance of these (6) Type II diabetes mellitus: Hemoglobin A1C 9.0 in July Refusing insulin with glucose 113 - 164 Pharmacy glycemic control now signed off Can restart on Trulicity on discharge as long as not causing N/V/diarrhea (7) Atrial flutter: Paroxysmal A-fib Continue digoxin - level now therapeutic Continue apixaban - increase back to 5mg PO BID now renal function improving, does not meet criteria for reduced dose Continue amiodarone Continue carvedilol (8) Heart failure with improved ejection fraction (HFimpEF): Heart failure with last EF approximately 30% With AICD (9) Anemia: (see myeloma) Plan Chronic stable issues: - Depression/anxiety: Continue duloxetine - asthma - GERD VTE Prophylaxis - Eliquis Diet - Low Na, T2DM Disposition - medically stable for discharge pending placement Total Time Total Time Spent Total Time Spent (In Minutes): 35 Discharge Plan Discharge Items Patient Disposition: Transfer Long-Term Fac Reason For Visit: HYPERKALEMIA Discharge Diagnosis: JULIO Condition on Discharge: Fair Activity: Resume your previous activity Non-emergency contact: Primary Care Provider and Manufacturing Shift Supervisor Call non-emergency contact if: you have any medication questions Follow-up/Referrals: PCP,NO [Physician] - Diet: Regular Addtl Attending Provider Instructions: please make appointment to follow up with gi tech as soon as possible Pending Studies at Discharge: No Stand-Alone Forms: My [facility] Skilled Items Patient informed of condition?: Yes DNR: No Discharge Level of Care: Skilled Communicable Disease: No Discharge Prognosis: Improving Lines: None Urinary Catheter: No Medications and DC Order Prescriptions: New bumetanide 1 mg Tablet 1 mg PO QAM 30 Days Qty: 30 0RF Continued (DME) Hospital Bed [facility] [place] [facility] See Rx Instructions .Route Qty: 1 0RF Rx Instructions: Semi-electric hospital bed with mattress and side rails carvedilol 25 mg tablet 25 mg PO BID Qty: 180 3RF Rx Instructions: must administer with a meal/food (DME) Accu-Chek Garima Plus test strp Strip See Rx Instructions .ROUTE .MEDSUPPLY Qty: 100 3RF Rx Instructions: Check blood sugars once PRN (DME) pen needle, diabetic [BD Jaimee 2nd Gen Pen Needle] 32 gauge x 5/32" needle See Rx Instructions .Route Qty: 200 11RF Rx Instructions: use for injections 4x daily, change with each use azelastine 137 mcg (0.1 %) aerosol,spray 2 spray INTRANASAL DAILY PRN (Reason: ALLERGIES) Qty: 30 0RF calcitriol 0.5 mcg capsule 0.5 mcg PO QAM acyclovir 400 mg tablet 400 mg PO QAM (DME) FreeStyle Rafa 3 Sensor Device See Rx Instructions .Route Qty: 2 11RF Rx Instructions: change sensor every 14 days atorvastatin 40 mg tablet 40 mg PO HS Qty: 90 3RF (DME) blood-glucose meter [Accu-Chek Garima Plus Meter] [facility] [place] See Rx Instructions .ROUTE .MEDSUPPLY Rx Instructions: Used to check blood sugars once PRN prednisone 5 mg tablet 5 mg PO QAM Qty: 90 3RF duloxetine [Cymbalta] 60 mg capsule,delayed release(DR/EC) 60 mg PO QAM Qty: 90 3RF albuterol sulfate 90 mcg/actuation HFA aerosol inhaler 2 puff inhalation Q6H PRN (Reason: shortness of breath or wheezing) Qty: 8.5 2RF betamethasone valerate 0.1 % cream 1 applic TOPICAL BID PRN (Reason: PSORIASIS ) Rx Instructions: Apply to areas of the arms twice daily for up to 2 weeks as needed for flaring. omega 5-ktm-upq-fish oil [Fish Oil] 1,000 mg (120 mg-180 mg) Capsule 1,000 mg PO AMHS magnesium oxide 400 mg magnesium Tablet 400 mg PO AMHS Trulicity 1.5 mg/0.5 mL pen injector 1.5 mg subcut WK Rx Instructions: Inject 1.5 mg into the abdomen once weekly. acetaminophen [Tylenol Arthritis Pain] 650 mg Tablet Extended Release 1,300 mg PO AMHS mirtazapine 7.5 mg tablet 7.5 mg PO HS levothyroxine 137 mcg tablet 137 mcg PO QAM potassium chloride [Klor-Con M20] 20 mEq tablet,ER particles/crystals 20 meq PO AMHS ferrous sulfate 325 mg (65 mg iron) tablet 325 mg PO QAM lansoprazole 30 mg capsule,delayed release(DR/EC) 30 mg PO QAM montelukast [Singulair] 10 mg tablet 10 mg PO QAM insulin glargine [Lantus Solostar U-100 Insulin] 100 unit/mL (3 mL) insulin pen 10 unit subcut HS protein supplement Liquid 1 ea PO BID Rx Instructions: 30 ml two times a day albuterol sulfate 2.5 mg /3 mL (0.083 %) Solution For Nebulization 2.5 mg INHALATION Q4H PRN (Reason: Wheezing) cholestyramine (with sugar) 4 gram powder 1 ea PO BID PRN (Reason: Diarrhea) Rx Instructions: 4 gm doses digoxin 125 mcg (0.125 mg) tablet 125 mcg PO QAM Eliquis 5 mg tablet 5 mg PO AMHS Saccharomyces boulardii [Florastor] 250 mg Capsule 250 mg PO QAM multivitamin Tablet 1 tab PO .DAILY IN AFTERNOON fluticasone propion-salmeterol [Wixela Inhub] 250-50 mcg/dose Blister With Device 2 inh INHALATION Q12H sodium bicarbonate 650 mg Tablet 650 mg PO TID oxycodone 5 mg Tablet 5 mg PO Q6 PRN (Reason: pain 1-7) oxycodone 5 mg Tablet 10 mg PO Q6 PRN (Reason: pain 8-10) ondansetron 4 mg Tablet,Disintegrating 4 mg PO Q6 PRN (Reason: chemo associated n/v) calcium carbonate-vitamin D3 600 mg-10 mcg (400 unit) tablet 1 tab PO BID amiodarone 200 mg tablet 200 mg PO AMHS ciprofloxacin HCl 0.3 % drops 5 drp OPL [facility] Rx Instructions: take for 14 days ..start 10/27/2023..end date 11/09/22 after morning dose Discontinued lenalidomide [Revlimid] 10 mg capsule 10 mg PO QAM Rx Instructions: 3 weeks on, 1 week off. ondansetron 4 mg Tablet,Disintegrating 4 mg PO AMHS Rx Instructions: chemotherapy associated n/v Discharge Orders: Discharge Order (Routine); Ordered 11/12/23 Ordered By: Sanna Muñoz Admission Data Admit Date/Time: 11/03/23 23:17 Attending Provider: Sanna Muñoz Admit Provider: Blanquita De Santiago Primary Care Provider: Ag Fox III Other Providers: [place],[facility] [place]; Shelton Ramirez; Gill Ken Coding Level of Care Code 84993 INP/OBS DISCH >30 MIN Diagnoses JULIO (acute kidney injury) N17.9 Multiple myeloma C90.00 Wound of left lower extremity S81.802A Abnormal ultrasound R93.[address] of the abdomen R93.5 Type 2 diabetes mellitus with stage 4 chronic kidney disease, without long-term current use of insulin E11.22; N18.4 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 terminal computer operator insulin use: without terminal computer operator use 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 complication status: with kidney complications 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 complication detail: with chronic kidney disease Chronic kidney disease stage: stage 4 (severe) Atrial flutter I48.92 Heart failure with improved ejection fraction (HFimpEF) I50.32 Anemia D64.9 Anemia type: unspecified type Time Spent (min) 35
--- NOTE | 2023-11-12 11:01 | Nephrology Progress Note ---
Date of Service November 12, 2023 Assessment & Plan (1) JULIO (acute kidney injury): Plan: CKD III-IV with baseline creatinine 2.0-2.4 mg/dL. Kidney function improved to baseline. JULIO attributed to Revlimid. Electrolytes are acceptable. For fluid retention, Bumex 1 mg daily was restarted yesterday. Revlimid has been stopped due to JULIO. Mike will follow up with Dr. Stevenson in the nephrology clinic in the next 2 weeks. Obtain a repeat metabolic profile within 1 week of discharge. (2) Anemia: Plan: s/p 1 unit PRBC transfusion 02/08. JANELLE therapy per hematology. (3) Nonischemic cardiomyopathy: Plan: Not currently decompensated. Avoid RAASi blockade due to JULIO. Diuretics restarted yesterday. Low sodium diet and fluid restriction to 1.2 L/day. (4) CKD (chronic kidney disease) stage 4, GFR 15-29 ml/min: Plan: Remains on calcitriol for sPTH. Calcium acceptable. Follow up with Dr. Stevenson post discharge. Admission and Anticipated Discharge Date Admission Date: November 03, 2023 Subjective No acute events overnight. No complaints this AM. Breathing comfortably. Edema improved. Review of Systems Review of Systems: All systems reviewed & are unremarkable except as noted in HPI & below Physical Exam Constitutional: well developed; no acute distress Eyes: no corneal abnormality ENMT: Mouth: no oral mucosal abnormality and oral mucous membranes not dry Neck: normal visual inspection and trachea midline Respiratory: normal respiratory effort Auscultation: lungs clear to auscultation bilaterally Cardiovascular: Rate/Rhythm: regular rate Heart Sounds: normal S1 and normal S2 Extremities: + edema (compression stockings to knee) Musculoskeletal: Extremities: no cyanosis and no clubbing Skin: normal turgor; no lesions Neurologic: Motor/Sensory: no tremor and no asterixis Psychiatric: Orientation: alert and oriented x 3 Results & Data Vital Signs (Past 12 Hours) Vital Signs Temp Pulse Resp BP Pulse Ox O2 Del Method 11/12/23 09:23 36.7 C 81 16 149/82 H 93 Room Air Laboratory Results Laboratory Results - last 24 hr 11/09/23 11/09/23 11/11/23 10:02 10:26 12:06 WBC RBC Hgb Hct MCV MCH MCHC RDW Std Deviation RDW Coeff of Amrita Plt Count MPV Sodium Potassium Chloride Carbon Dioxide Anion Gap BUN Creatinine Est Cr Clr Drug Dosing Est GFR ( Amer) Est GFR (Non-Af Amer) BUN/Creatinine Ratio Glucose POC Glucose 180 H Calcium Antibody Identification Panagglutinin due to drug Antibody ID Referred Antibody ID Comment Cancelled Crossmatch See Detail 11/11/23 11/11/23 11/12/23 16:56 20:16 06:36 WBC 5.03 RBC 2.68 L Hgb 8.4 L Hct 26.4 L MCV 98.5 MCH 31.3 MCHC 31.8 L RDW Std Deviation 73.1 H RDW Coeff of Amrita 20.7 H Plt Count 133 MPV 10.2 Sodium 141 Potassium 4.2 Chloride 108 H Carbon Dioxide 27 Anion Gap 6 BUN 27 H Creatinine 2.56 H Est Cr Clr Drug Dosing 25.1 Est GFR ( Amer) 20.2 Est GFR (Non-Af Amer) 17.4 BUN/Creatinine Ratio 10.5 Glucose 109 H POC Glucose 162 H 129 H Calcium 7.3 L Antibody Identification Antibody ID Referred Antibody ID Comment Crossmatch 11/12/23 07:38 WBC RBC Hgb Hct MCV MCH MCHC RDW Std Deviation RDW Coeff of Amrita Plt Count MPV Sodium Potassium Chloride Carbon Dioxide Anion Gap BUN Creatinine Est Cr Clr Drug Dosing Est GFR ( Amer) Est GFR (Non-Af Amer) BUN/Creatinine Ratio Glucose POC Glucose 111 H Calcium Antibody Identification Antibody ID Referred Antibody ID Comment Crossmatch PG Care Time/CCT Total # of Minutes Spent Total Time Spent with Patient: Total time spent is greater than 50% in coordination of care (as documented) at patient's floor/unit and/or counseling patient: Coding Level of Care Code 50522 SUB INP/OBS CARE 3/50MIN Diagnoses JULIO (acute kidney injury) N17.9 Anemia D64.9 Anemia type: unspecified type Nonischemic cardiomyopathy I42.8 CKD (chronic kidney disease) stage 4, GFR 15-29 ml/min N18.4 (2) Anemia Anemia type: unspecified type Qualified Code(s): D64.9 - Anemia, unspecified
== END 2023-11-12 13:20 | DRG 683 ==
LOC: ED 15:10 → SUATTDRO 23:17 → EDINP 23:17 → 2E 11-04 00:16 → 3N 11-09 20:05
DX: N18.4 Chronic kidney disease, stage 4 (severe); E11.22 Type 2 diabetes mellitus with diabetic chronic kidney disease; Z79.01 Long term (current) use of anticoagulants; K21.9 Gastro-esophageal reflux disease without esophagitis; Z95.810 Presence of automatic (implantable) cardiac defibrillator; I48.92 Unspecified atrial flutter; Z96.643 Presence of artificial hip joint, bilateral; Z88.2 Allergy status to sulfonamides; I50.20 Unspecified systolic (congestive) heart failure; I42.8 Other cardiomyopathies; N17.9 Acute kidney failure, unspecified; D64.9 Anemia, unspecified; N39.0 Urinary tract infection, site not specified; Z88.5 Allergy status to narcotic agent; I13.0 Hypertensive heart and chronic kidney disease with heart failure and stage 1 through stage 4 chronic kidney disease, or unspecified chronic kidney disease; Z91.041 Radiographic dye allergy status; Z98.1 Arthrodesis status; X58.XXXA Exposure to other specified factors, initial encounter; S81.802A Unspecified open wound, left lower leg, initial encounter; Z79.4 Long term (current) use of insulin; Y92.89 Other specified places as the place of occurrence of the external cause; J45.909 Unspecified asthma, uncomplicated; C90.00 Multiple myeloma not having achieved remission; Z79.85 Long-term (current) use of injectable non-insulin antidiabetic drugs

== ENCOUNTER 2024-05-30 10:41 | Observation (INO) ==
--- NOTE | 2024-05-30 10:49 | Emergency Department Note ---
Impression & Plan Chest pain, Abnormal chest x-ray, Chronic kidney insufficiency ED Provider Note NAME: FRANCA LEAL AGE: 79 SEX: F : 1945 ARRIVES VIA: Ambulance INFORMANT: Patient, EMS ED PROVIDER(S): Ky Cordero DO CHIEF COMPLAINT: Chest pain HPI: The patient is a 79-year-old female who presented to the emergency department from home by ambulance for an evaluation of chest pain. The patient has a history of ventricular tachycardia as well as atrial fibrillation. She has a history of heart failure. The patient states that she has been compliant with her outpatient medications. She started noticing chest discomfort that she described as a pressure over the last 24 hours. The patient states that she called her family doctor today and was told to call 911 to come to the hospital. The patient was given aspirin as well as nitroglycerin with some improvement of her symptoms. She denies having any coughing or fever. ROS: See above HPI for pertinent positives & negatives. A total of 10 systems reviewed and were otherwise negative. PAST MEDICAL HISTORY: See Below PAST SURGICAL HISTORY: See Below FAMILY HISTORY: See Below SOCIAL HISTORY: See Below HOME MEDICATIONS: See Below ALLERGIES: See Below VITALS: See Below PHYSICAL EXAMINATION: GENERAL: Patient is awake alert in no acute distress patient is resting comfortably and showing no signs of anxiety EYES: The conjunctivae are clear. The pupils are round and reactive. EARS, NOSE, MOUTH AND THROAT: The nose is without any evidence of any deformity. NECK: The neck is nontender and supple. RESPIRATORY: Normal respiratory effort is noted there is no evidence of wheezing rhonchi or rales CARDIOVASCULAR: Regular rate and rhythm noted there no murmurs rubs or gallops normal S1 normal S2. GASTROINTESTINAL: The abdomen is soft. Abdomen is nontender. MUSCULOSKELETAL/EXTREMITIES: There is no evidence of gross deformity full range of motion is noted in the hips and shoulders. SKIN: There is no obvious evidence of any rash. There are no petechiae, pallor or cyanosis noted. NEUROLOGIC: Patient is awake alert and oriented x3. MEDICAL DECISION MAKING: The patient is a 79-year-old female who presented to the emergency department for an evaluation of chest pain. The patient does have a history of cardiac issues including atrial fibrillation and ventricular tachycardia. She was treated with aspirin and nitroglycerin. She did have some radiation to the jaw that she described as a numbness. I discussed the patient's laboratory and radiographic studies with her. I discussed the limitations of the emergency department workup for chest pain with her. Ultimately given the patient's age and comorbidities I do not feel that she would be a candidate for outpatient workup. She was feeling much better after her treatment. I discussed her condition with the on-call [facility] hospitalist. They have agreed to evaluate the patient in the emergency department for further management and disposition. Triage Nursing notes reviewed. Prior medical records reviewed Vital Signs: reviewed and remarkable for no significant abnormalities Differential diagnosis: Cardiac ischemia, aortic dissection, pulmonary embolism, pneumothorax, pneumonia, pericarditis, myocarditis, esophageal rupture, GERD, cholecystitis, pancreatitis, musculoskeletal, as well as other pathologies. ER treatment provided: See below Diagnostics interpreted by me: ECG: EKG was obtained in the emergency department. My interpretation is atrial paced rhythm with ventricular pacing noted at 75 bpm. No three affiliated beats were noted. Nonspecific ST depressions were noted with a left bundle branch block pattern. This was compared to a tracing from March 10, 2024. No changes were noted. A prehospital EKG was reviewed. My interpretation is atrial paced rhythm with ventricular pacing noted at 105 bpm. No three affiliated beats were noted. A left bundle branch block pattern was noted with diffuse ST depressions. This was compared to a tracing from March 10, 2024. No changes were noted. Cardiac Monitoring: An order was placed for continuous cardiac monitoring. The monitor shows a rate of 92 bpm with paced rhythm. Laboratory studies: As stated above and show below. Imaging studies: See below. Radiographic imaging was reviewed by myself Consultation(s): I discussed this case with Dr. Funk who is on-call for the [facility] hospitalist group. Past Med/Surg History Problem List (Updated 05/30/24 @ 13:46 by Ky Cordero DO) Chronic kidney insufficiency (Acute) Abnormal chest x-ray (Acute) Chest pain (Acute) Iron deficiency Allergic asthma Diabetes type 2, controlled Dyslipidemia Oral lesion Adrenal incidentaloma Atrial flutter Multiple myeloma currently getting chemo Heart failure with improved ejection fraction (HFimpEF) On amiodarone therapy ICD (implantable cardioverter-defibrillator), biventricular, in situ Asthma Paroxysmal ventricular tachycardia Hypertension Chronic anticoagulation (Acute) Psoriatic arthritis Iron deficiency anemia Lumbar canal stenosis Psoriasis (Chronic) GERD (gastroesophageal reflux disease) (Chronic) Hypothyroidism Spinal meningioma On c-spine- follows with [facility] [place] (Dr. Ken)- under surveillance/stable/no indication for surgical intervention, last seen Summer 2022 CKD (chronic kidney disease) stage 4, GFR 15-29 ml/min baseline creatinine 2.0-2.2 range; nephrology (Dr. Stevenson) monitoring Medical History CKD (chronic kidney disease) follows with Dr. Stevenson Hx of sepsis September 2023 > [facility] > resolved now per pt > was MRSA infection Atrial flutter controlled per pt Asthma well controlled per pt Multiple myeloma receiving chemo at present > monthly Mixed hearing loss, bilateral Allergic rhinitis Pulmonary nodule Vitamin D deficiency Depression Recurrent pleural effusion none at present Post laminectomy syndrome Hx of colonic polyps Hx of pulmonary edema Hx of non-ST elevation myocardial infarction (NSTEMI) (~01/2023) post pacer placement, then went back for pacer/defib placement Cardiomyopathy Esophageal dysmotility Hiatal hernia 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 current use of systemic steroids for psoriatic arthritis Obesity Schatzki's ring Peptic ulcer disease Irritable bowel syndrome Surgical History S/P right colectomy History of thoracentesis x3 Hx of colonoscopy with polypectomy History of bone marrow biopsy (~04/2023) Hx of bilateral cataract extraction Presence of biventricular implantable cardioverter-defibrillator (ICD) Medtronic > placed Mar 2023 History of laparoscopy (~06/2020) exploratory after colectomy @ [facility] History of colectomy (~06/2020) @ [facility] History of total left hip arthroplasty (~12/2019) History of total hip arthroplasty (~2019) x2 RIGHT 05/27/19. Complicated by post-op seroma requiring multiple needle aspirations. LEFT HIP 01/10/20 History of dilatation and curettage History of tooth extraction History of tonsillectomy and adenoidectomy History of cardiac cath X2; firts cath ~2008 (NO STENTS),symptoms of heartburn, [facility] second cath at [facility] 02/14 after epidsode of V-Tach, no stents, sees Dr. Granados History of arthroscopy RT/LEFT KNEE Status post total replacement of left shoulder History of esophagogastroduodenoscopy (EGD) History of total abdominal hysterectomy and bilateral salpingo-oophorectomy History of arthroscopy of right shoulder (~09/2018) History of total knee arthroplasty RIGHT History of foot surgery RT FOOT FUSION History of cholecystectomy History of lumbar fusion H/O thyroidectomy Family History Mother Arthritis Hypertension Father Lung cancer Hypertension Family/Other Family hx of colon cancer 1st cousin Unknown Allergies Breast cancer Hypertension Brother Cancer Heart disease Aunt Colorectal cancer Other No family history of adverse response to anesthesia No family history of bleeding disorder Denies family history of Ovarian cancer Prostate cancer Diabetes Hearing loss Myocardial infarction Stroke Asthma Social History Smoking Status: Former smoker Tobacco Type: Cigarettes Age Started Using Tobacco: 1; Age Quit Using Tobacco: 26; packs per day: 0; Second Hand Exposure: No; Do You Dip or Chew Tobacco: No; Hx Alcohol Use: No Hx Substance Use: No Preferred Language: Yakut Communication Ability: Effective Visual Impairment: Limited Hearing Ability: Intelligence Officer Basic Required: No Beliefs That Will Affect Care: None marital status: / Current Living Situation: Alone and [facility] Current Living Situation Comment: center care current occupational status: retired current occupation: Retired How many Children do You have: 0 Feels Safe at Home: Yes Childhood Exposure to Second-Hand Smoke: Yes Diet: low salt and regular Diet Comment: Pre-diabetic caffeine: Yes Dental Care, Regularly: Yes Physical Activity Frequency: Does not Exercise Physical Activity Frequency Comment: Hip problems Seatbelt Use: always Sunscreen Use: No Assistive Devices: Cane, Denture - Upper, Denture - Lower, Glasses, Scooter/Electric Scooter and Walker Allergies Allergies Allergy/AdvReac Type Severity Reaction Status Date / Time codeine Allergy Severe Anaphylaxis Verified 05/13/24 12:55 celecoxib [From Celebrex] Allergy Intermediate RASH Verified 05/13/24 12:55 cephalexin [From Keflex] Allergy Intermediate Rash Verified 05/13/24 12:55 hydrocodone Allergy Intermediate Rash Verified 05/13/24 12:55 Iodinated Contrast Media Allergy Intermediate RASH Verified 05/13/24 12:55 nickel Allergy Intermediate Rash Verified 05/13/24 12:55 oxycodone Allergy Intermediate Rash Verified 05/13/24 12:55 Sulfa (Sulfonamide Allergy Intermediate RASH TO Verified 05/13/24 12:55 Antibiotics) SULFA DRUGS tetracycline Allergy Intermediate RASH Verified 05/13/24 12:55 capsaicin AdvReac Intermediate CREATINE Verified 05/13/24 12:55 ELEVATION diclofenac AdvReac Intermediate CREATINE Verified 05/13/24 12:55 ELEVATION propylene glycol AdvReac Intermediate CREATINE Verified 05/13/24 12:55 ELEVATION "PREP WITH BLUE DYE" Allergy Intermediate Rash Uncoded 05/13/24 12:55 Home Meds Home Medications Medication Instructions Recorded Confirmed magnesium oxide 400 mg PO AMHS 07/26/18 05/13/24 omega 6-gon-wfy-fish oil 1,000 mg 1,000 mg PO AMHS 07/26/18 05/13/24 (120 mg-180 mg) capsule (Fish Oil) blood-glucose meter (Accu-Chek 02/12/21 05/13/24 Garima Plus Meter) acetaminophen 650 mg 1,300 mg PO AMHS 01/20/23 05/13/24 tablet,extended release (Tylenol Arthritis Pain) dulaglutide 1.5 mg/0.5 mL 1.5 mg subcut WK 04/15/23 05/13/24 subcutaneous pen injector (Trulicity) mirtazapine 7.5 mg tablet 7.5 mg PO HS 07/01/23 05/13/24 acyclovir 400 mg tablet 400 mg PO BID 08/24/23 05/13/24 ferrous sulfate 325 mg (65 mg 325 mg PO QAM 09/15/23 05/13/24 iron) tablet amiodarone 200 mg tablet (Pacerone) 200 mg PO AMHS 10/11/23 05/13/24 calcium 600 mg (as 1 tab PO BID 10/11/23 05/13/24 carbonate)-vitamin D3 10 mcg (400 unit) tablet Saccharomyces boulardii 250 mg 250 mg PO QAM 11/03/23 05/13/24 capsule (Florastor) albuterol sulfate 2.5 mg/3 mL 2.5 mg inhalation Q4H PRN Wheezing 11/03/23 05/13/24 (0.083 %) solution for nebulization cholestyramine (with sugar) 4 gram 1 ea PO BID PRN Diarrhea 11/03/23 05/13/24 oral powder (Questran) ondansetron 4 mg disintegrating 4 mg PO Q6 PRN chemo associated n/v 11/03/23 05/13/24 tablet menthol-zinc oxide [Calmoseptine] 1 dose topical UD PRN Cold Symptoms 12/04/23 05/13/24 bumetanide 1 mg tablet 1 mg PO QAM 12/07/23 05/13/24 vitamins A,C,M-uegu-ldcjaf 4,296 1 cap PO BID 02/11/24 05/13/24 mcg-226 mg-90 mg capsule (PreserVision AREDS) dexamethasone 4 mg tablet 4 mg PO .Once monthly 03/03/24 05/13/24 calcitriol 0.5 mcg capsule 0.5 mcg PO QAM 03/22/24 05/13/24 (Rocaltrol) Previous Rx's Medication Instructions Recorded albuterol sulfate 90 mcg/actuation 2 puff inhalation Q6H PRN 09/30/22 aerosol inhaler shortness of breath or wheezing #8.5 grams Hospital Bed Homecare (Hospital #1 ea 03/03/23 Bed) duloxetine 60 mg capsule,delayed 60 mg PO QAM #90 caps 04/24/23 release (Cymbalta) blood sugar diagnostic (Accu-Chek #100 ea 07/16/23 Garima Plus test strips) pen needle, diabetic 32 gauge x #200 ea 09/09/23 5/32" (BD Jaimee 2nd Gen Pen Needle) azelastine 137 mcg (0.1 %) nasal 2 spray intranasal DAILY PRN 09/30/23 spray ALLERGIES #30 mL apixaban 5 mg tablet (Eliquis) 5 mg PO BID #180 tabs 12/21/23 amoxicillin 500 mg capsule 1,000 mg (2 x 500 mg) PO ONCE PRN 03/15/24 prior to dental work #2 caps FreeStyle Rafa 3 Plus Sensor #2 ea 03/21/24 (blood-glucose sensor) Breo Ellipta 100 mcg-25 mcg/dose 1 inh inhalation DAILY #60 ea 04/07/24 powder for inhalation (fluticasone furoate-vilanterol) betamethasone valerate 0.1 % 1 applic topical BID PRN PSORIASIS 04/13/24 topical cream #45 grams digoxin 125 mcg (0.125 mg) tablet 125 mcg PO QAM Atrial fibrillation 04/13/24 #90 tabs carvedilol 25 mg tablet (Coreg) 25 mg PO BID #180 tabs 04/26/24 pantoprazole 40 mg tablet,delayed 40 mg PO DAILY #90 tabs 04/27/24 release montelukast 10 mg tablet 10 mg PO QAM #30 tabs 05/04/24 (Singulair) Levoxyl 137 mcg tablet 137 mcg PO QAM #30 tabs 05/16/24 (levothyroxine) potassium chloride 20 mEq 20 meq PO AMHS 90 days #180 tabs 05/27/24 tablet,extended release(part/cryst) (Klor-Con M) prednisone 5 mg tablet 5 mg PO QAM #90 tabs 05/27/24 Results & Data (ED) Vital Signs Vital Signs - 24 hr 05/30/24 10:43 05/30/24 10:43 05/30/24 10:43 Temperature 36.6 C Temperature Source Oral Pulse Rate 94 H Pulse Rate [Apical] 94 H Pulse Rhythm Regular Pulse Rhythm [Apical] Regular Pulse Strength Normal Pulse Strength [Apical] Normal Respiratory Rate 20 20 Respiratory Effort / Characteristics Non-Labored Non-Labored Respiratory Depth Normal Normal Respiratory Pattern Regular Regular Blood Pressure 113/73 Blood Pressure [Left Arm] 113/73 Blood Pressure Mean 86 Blood Pressure Mean [Left Arm] 86 Blood Pressure Position Lying Pulse Oximetry 94 94 Oxygen Delivery Method Room Air Room Air Room Air Sepsis Recent Fever Within 48 Hours No Sepsis New/Unexplained Change in Mental Status No Sepsis Action Taken by Nursing No Action Required 05/30/24 10:43 05/30/24 10:59 05/30/24 13:29 Temperature Temperature Source Pulse Rate 94 H 69 Pulse Rate [Apical] 70 Pulse Rhythm Regular Pulse Rhythm [Apical] Pulse Strength Pulse Strength [Apical] Normal Respiratory Rate 20 19 Respiratory Effort / Characteristics Non-Labored Spontaneous Respiratory Depth Normal Respiratory Pattern Regular Blood Pressure Blood Pressure [Left Arm] 103/70 Blood Pressure Mean Blood Pressure Mean [Left Arm] 81 Blood Pressure Position Pulse Oximetry 94 96 Oxygen Delivery Method Room Air Room Air Sepsis Recent Fever Within 48 Hours Sepsis New/Unexplained Change in Mental Status Sepsis Action Taken by [facility] Medications Current Medication List: was personally reviewed by me Laboratory Data Attestation: I reviewed the patient's lab results. 05/30/24 11:55 05/30/24 11:55 Lab Results 05/30/24 Range/Units 11:55 WBC 4.17 L (4.8-10.8) K/ul RBC 3.39 L (4.20-5.40) M/uL Hgb 10.7 L (12.0-16.0) g/dl Hct 33.1 L (37.0-47.0) % MCV 97.6 (80.0-100.0) fL MCH 31.6 (25.0-34.0) pg MCHC 32.3 (32.0-36.0) g/dL RDW Std Deviation 63.7 H (36.4-46.3) fL RDW Coeff of Amrita 17.9 H (11.5-14.5) % Plt Count 201 (130-400) K/uL MPV 10.9 (9.4-12.4) fL Immature Gran % (Auto) 1.0 % Neut % (Auto) 49.3 % Lymph % (Auto) 17.3 % Barnes % (Auto) 10.1 % Eos % (Auto) 20.6 % Baso % (Auto) 1.7 % Neut # (Auto) 2.06 (1.40-6.50) K/uL Lymph # (Auto) 0.72 L (1.20-3.40) K/uL Barnes # (Auto) 0.42 (0.11-0.59) K/uL Eos # (Auto) 0.86 H (0.00-0.50) K/uL Baso # (Auto) 0.07 (0.00-0.20) K/uL Immature Gran # (Auto) 0.04 (0.01-0.20) K/uL PT 11.5 (9.0-12.0) Seconds INR 1.1 (0.9-1.1) APTT 28 (21-31) Seconds PTT Ratio 1.0 Sodium 140 (136-145) mmol/L Potassium 4.1 (3.5-5.1) mmol/L Chloride 104 (98-107) mmol/L Carbon Dioxide 28 (21-32) mmol/L Anion Gap 8 (3-11) BUN 35 H (6-23) mg/dl Creatinine 2.38 H (0.6-1.2) mg/dl Est Cr Clr Drug Dosing 24.7 ml/min eGFR 20.37 BUN/Creatinine Ratio 14.7 (10-20) Glucose 133 H (70-99(Fasting)) mg/dl Calcium 7.5 L (8.6-10.3) mg/dl Total Bilirubin 0.8 (0.2-1.0) mg/dl AST 70 H (13-39) U/L ALT 96 H (7-52) U/L Alkaline Phosphatase 78 (34-104) U/L Troponin I High Sens 30.4 H (0-14) pg/ml Total Protein 5.7 L (6.0-8.3) gm/dl Albumin 3.5 (3.4-5.0) gm/dl Globulin 2.2 L (2.5-4.0) gm/dl Albumin/Globulin Ratio 1.6 (0.9-2) Lipase 54 (11-82) U/L Imaging Data Attestation: I personally reviewed and interpreted this imaging study as follows: My Impression: 1 view chest x-ray was obtained in the emergency department. My interpretation is left-sided pleural effusion, final report below. Radiologist's Impression: Chest X-Ray 05/30/24 10:43 XR chest 1V portable CLINICAL HISTORY: Chest pain, nonspecific COMPARISON STUDY: Chest radiograph November 03, 2023. Chest CT April 17, 2023. FINDINGS: Left shoulder arthroplasty and a left subclavian pacer/AICD are incidentally noted. Cardiomegaly is unchanged. There are no radiographic evidence for pulmonary edema. A small left pleural effusion is similar to prior exam. A 5.7 cm lobulated left basilar density corresponds to a subpleural density containing calcifications on CT of May 12, 2024. IMPRESSION: 1. No change in a small left pleural effusion. Associated 5.7 cm lobulated left basilar density is nonspecific but favors a resolving infectious process or atelectatic lung. Although less likely, a pulmonary lesion could appear similar and continued imaging follow-up is recommended. 2. Cardiomegaly without evidence for pulmonary edema. ACT 112: Negative or not required by law. Electronically signed by: Alfred Avendaño M.D. 05/30/2024 12:11 PM Discharge Plan Visit Data Chief Complaint: Chest Pain ED Provider: Ky Cordero Discharge Problem: Chest pain, Abnormal chest x-ray, Chronic kidney insufficiency Patient Disposition: Being Evaluated by Hospitalist Forms Stand Alone Forms: My [facility] Prescriptions Prescriptions: No Action (DME) Hospital Bed Mis See Rx Instructions .Route Qty: 1 0RF Rx Instructions: Semi-electric hospital bed with mattress and side rails (DME) Accu-Chek Garima Plus test strp Strip See Rx Instructions .ROUTE .MEDSUPPLY Qty: 100 3RF Rx Instructions: Check blood sugars once PRN (DME) pen needle, diabetic [BD Jaimee 2nd Gen Pen Needle] 32 gauge x 5/32" needle See Rx Instructions .Route Qty: 200 11RF Rx Instructions: use for injections 4x daily, change with each use azelastine 137 mcg (0.1 %) aerosol,spray 2 spray INTRANASAL DAILY PRN (Reason: ALLERGIES) Qty: 30 0RF Eliquis 5 mg tablet 5 mg PO BID Qty: 180 3RF (DME) FreeStyle Rafa 3 Plus Sensor Device See Rx Instructions .Route Qty: 2 11RF Rx Instructions: Change sensor every 15 days fluticasone furoate-vilanterol [Breo Ellipta] 100-25 mcg/dose blister with device 1 inh inhalation DAILY Qty: 60 2RF betamethasone valerate 0.1 % cream 1 applic TOPICAL BID PRN (Reason: PSORIASIS ) Qty: 45 5RF Rx Instructions: Apply to areas of the arms twice daily for up to 2 weeks as needed for flaring. digoxin 125 mcg (0.125 mg) tablet 125 mcg PO QAM Qty: 90 3RF Rx Instructions: per patient needs renewed- has not taken for a week carvedilol [Coreg] 25 mg tablet 25 mg PO BID Qty: 180 3RF Rx Instructions: must administer with a meal/food pantoprazole 40 mg tablet,delayed release (DR/EC) 40 mg PO DAILY Qty: 90 1RF montelukast [Singulair] 10 mg tablet 10 mg PO QAM Qty: 30 3RF levothyroxine [Levoxyl] 137 mcg tablet 137 mcg PO QAM Qty: 30 3RF Rx Instructions: sublingual potassium chloride [Klor-Con M20] 20 mEq tablet,ER particles/crystals 20 meq PO AMHS 90 Days Qty: 180 3RF prednisone 5 mg tablet 5 mg PO QAM Qty: 90 3RF acyclovir 400 mg tablet 400 mg PO BID (DME) blood-glucose meter [Accu-Chek Garima Plus Meter] [facility] See Rx Instructions .ROUTE .MEDSUPPLY Rx Instructions: Used to check blood sugars once PRN duloxetine [Cymbalta] 60 mg capsule,delayed release(DR/EC) 60 mg PO QAM Qty: 90 3RF albuterol sulfate 90 mcg/actuation HFA aerosol inhaler 2 puff inhalation Q6H PRN (Reason: shortness of breath or wheezing) Qty: 8.5 2RF dexamethasone 4 mg tablet 4 mg PO .Once monthly menthol-zinc oxide [Calmoseptine] 1 dose topical UD PRN (Reason: Cold Symptoms) amoxicillin 500 mg capsule 1,000 mg PO ONCE PRN (Reason: prior to dental work) Qty: 2 3RF PreserVision AREDS 4,296 mcg-226 mg-90 mg capsule 1 cap PO BID bumetanide 1 mg tablet 1 mg PO QAM Patient Comments: Increase to 2 mg PRN, for weight > 211 lb. omega 5-vzl-faq-fish oil [Fish Oil] 1,000 mg (120 mg-180 mg) Capsule 1,000 mg PO AMHS magnesium oxide 400 mg magnesium Tablet 400 mg PO AMHS Trulicity 1.5 mg/0.5 mL pen injector 1.5 mg subcut WK Patient Comments: last dose 03/10/24 Rx Instructions: Inject 1.5 mg into the abdomen once weekly. acetaminophen [Tylenol Arthritis Pain] 650 mg Tablet Extended Release 1,300 mg PO AMHS mirtazapine 7.5 mg tablet 7.5 mg PO HS ferrous sulfate 325 mg (65 mg iron) tablet 325 mg PO QAM albuterol sulfate 2.5 mg /3 mL (0.083 %) Solution For Nebulization 2.5 mg INHALATION Q4H PRN (Reason: Wheezing) cholestyramine (with sugar) [Questran] 4 gram powder 1 ea PO BID PRN (Reason: Diarrhea) Rx Instructions: 4 gm doses Saccharomyces boulardii [Florastor] 250 mg Capsule 250 mg PO QAM ondansetron 4 mg Tablet,Disintegrating 4 mg PO Q6 PRN (Reason: chemo associated n/v) calcitriol [Rocaltrol] 0.5 mcg capsule 0.5 mcg PO QAM calcium carbonate-vitamin D3 600 mg-10 mcg (400 unit) tablet 1 tab PO BID amiodarone [Pacerone] 200 mg tablet 200 mg PO AMHS Referrals Referrals: Jigna Jovel DO [Primary Care Provider] - Discharge Problem: Chest pain Qualifiers: Chest pain type: unspecified Qualified Code(s): R07.9 - Chest pain, unspecified Chronic kidney insufficiency Qualifiers: Chronic kidney disease stage: unspecified stage Qualified Code(s): N18.9 - Chronic kidney disease, unspecified
--- NOTE | 2024-05-30 12:12 | XRay Report ---
XR chest 1V portable CLINICAL HISTORY: Chest pain, nonspecific COMPARISON STUDY: Chest radiograph November 03, 2023. Chest CT April 17, 2023. FINDINGS: Left shoulder arthroplasty and a left subclavian pacer/AICD are incidentally noted. Cardiom egaly is unchanged. There are no radiographic evidence for pulmonary edema. A small left pleural effu srinivas is similar to prior exam. A 5.7 cm lobulated left basilar density corresponds to a subpleural de nsity containing calcifications on CT of May 12, 2024. IMPRESSION: 1. No change in a small left pleural effusion. Associated 5.7 cm lobulated left basilar density is no nspecific but favors a resolving infectious process or atelectatic lung. Although less likely, a pulm onary lesion could appear similar and continued imaging follow-up is recommended. 2. Cardiomegaly without evidence for pulmonary edema. ACT 112: Negative or not required by law. Electronically signed by: Alfred Avendaño M.D. 05/30/2024 12:11 PM
[2024-05-30 12:43] LABS: Basophils # (auto) 0.07 K/uL (0.00-0.20); Basophils % (auto) 1.7 %; Eosinophils # (auto) 0.86 K/uL (0.00-0.50); Eosinophils % (auto) 20.6 %; Hematocrit (blood only) 33.1 % (37.0-47.0); Hemoglobin 10.7 g/dl (12.0-16.0); Immature Granulocytes # (auto) 0.04 K/uL (0.01-0.20); Lymphocytes # (auto) 0.72 K/uL (1.20-3.40); Lymphocytes % (auto) 17.3 %; Mean Corpuscular Hemoglobin 31.6 pg (25.0-34.0); Mean Corpuscular Hgb Conc 32.3 g/dL (32.0-36.0); Mean Corpuscular Volume 97.6 fL (80.0-100.0); Mean Platelet Volume 10.9 fL (9.4-12.4); Monocytes # (auto) 0.42 K/uL (0.11-0.59); Monocytes % (auto) 10.1 %; Neutrophils # (auto) 2.06 K/uL (1.40-6.50); Neutrophils % (auto) 49.3 %; Platelet Count 201 K/uL (130-400); RDW Coefficient of Variation 17.9 % (11.5-14.5); RDW Standard Deviation 63.7 fL (36.4-46.3); Red Blood Count 3.39 M/uL (4.20-5.40); White Blood Count 4.17 K/ul (4.8-10.8)
[2024-05-30 12:59] LABS: Albumin Globulin Ratio 1.6 (0.9-2); Albumin Level 3.5 gm/dl (3.4-5.0); BUN Creatinine Ratio 14.7 (10-20); Bilirubin,Total 0.8 mg/dl (0.2-1.0); Calcium 7.5 mg/dl (8.6-10.3); Creatinine Clr Calc Pharmacy 24.7 ml/min; Globulin 2.2 gm/dl (2.5-4.0); Potassium 4.1 mmol/L (3.5-5.1); Total Protein 5.7 gm/dl (6.0-8.3)
[2024-05-30 13:04] LABS: Troponin I High Sensitivity 30.4 pg/ml (0-14)
[2024-05-30 13:05] LABS: INR 1.1 (0.9-1.1); Partial Thromboplastin Time 28 Seconds (21-31); Prothrombin Time 11.5 Seconds (9.0-12.0)
--- NOTE | 2024-05-30 13:45 | History & Physical Report ---
Date of Service May 30, 2024 Assessment & Plan (1) Chest pain: Plan: chest heaviness and associated perioral, bilateral LE, bilateral UE numbness x1 days neurologic vs cardiac - EKG showed AV paced rhythm, mild ST elevations in anterior leads; new from previous EKG - Echo 09/2023 showed EF 30 to 35%, moderate global hypokinesis of left ventricle, mild LVH, mild/mod mitral regurg - trop 30.4; baseline - Heart healthy diet - trend troponin q6hr x 3 - lipid panel and A1C with AM labs - will order limited echo - monitor on tele (2) CKD (chronic kidney disease) stage 4, GFR 15-29 ml/min: (3) Diabetes type 2, controlled: Plan Mike is a 79-year-old female with past medical history of A-fib on Eliquis, CKD 4, nonischemic cardiomyopathy with biventricular AICD, multiple myeloma, hypothyroidism, cecal volvulus s/p ileocecectomy, hypertension, psoriatic arthritis, DM 2. She presents today due to chest heaviness that started last along with associated intermittent numbness arms and legs. She is being admitted for a chest pain workup. #HFrEF/cardiomyopathy recent EF 30 to 35%; new echo ordered Continue Bumex 1 Mg daily Strict I&O monitoring Low-sodium diet Continue carvedilol #afib/a flutter/tachybrady syndrome s/p cardioversion and now pacemaker Continue carvedilol, amiodarone, digoxin, Eliquis #HTN mildly hypotensive on admission, may need as needed nitro Closely monitor blood pressure continue agents above #CKD G4/A3 renal function stable, baseline creatinine 2.5 avoid nephrotoxic agents #multiple myeloma currently undergoing treatment, due for treatment 06/01 Chronic stable diagnoses: GERD - continue PPI asthma depression/anxiety - continue duloxetine and mirtazapine VTE ppx: continue Eliquis Diet: heart healthy, low-sodium Dispo: med/tele Admission and Anticipated Discharge Date Admission Date: 05/30/24 History of Present Illness Chief Complaint: chest pain Primary Care Provider: Jigna Jovel DO Mike is a 79-year-old female with past medical history of A-fib on Eliquis, CKD 4, nonischemic cardiomyopathy with biventricular AICD, multiple myeloma, hypothyroidism, cecal volvulus s/p ileocecectomy, hypertension, psoriatic arthritis, DM 2. She presents today due to chest heaviness that started last along with associated intermittent numbness arms and legs. She is being admitted for a chest pain workup. She stated that last night she began with chest heaviness that is still present. She has associated intermittent arm and leg numbness. She denies strokelike symptoms like facial droop, slurred speech, expressive aphasia, headaches, dizziness, blurred vision. She denies worsening of chest pain on exertion. De nies sharp stabbing chest pain. She stated she may have said something similar in the past but does not remember. Patient denies fever, chills, headache, dizziness, lightheadedness, rhinorrhea, sore throat, cough, dyspnea, dyspnea on exertion, abdominal pain, nausea, vomiting, diarrhea, constipation. She is currently undergoing treatment for multiple myeloma, she goes in once monthly. She is due to going on Thursday 06/01. She wishes to be full code at this time. She took all of her home medications morning. Allergies Allergy/AdvReac Type Severity Reaction Status Date / Time codeine Allergy Severe Anaphylaxis Verified 05/13/24 12:55 celecoxib [From Celebrex] Allergy Intermediate RASH Verified 05/13/24 12:55 cephalexin [From Keflex] Allergy Intermediate Rash Verified 05/13/24 12:55 hydrocodone Allergy Intermediate Rash Verified 05/13/24 12:55 Iodinated Contrast Media Allergy Intermediate RASH Verified 05/13/24 12:55 nickel Allergy Intermediate Rash Verified 05/13/24 12:55 oxycodone Allergy Intermediate Rash Verified 05/13/24 12:55 Sulfa (Sulfonamide Allergy Intermediate RASH TO Verified 05/13/24 12:55 Antibiotics) SULFA DRUGS tetracycline Allergy Intermediate RASH Verified 05/13/24 12:55 capsaicin AdvReac Intermediate CREATINE Verified 05/13/24 12:55 ELEVATION diclofenac AdvReac Intermediate CREATINE Verified 05/13/24 12:55 ELEVATION propylene glycol AdvReac Intermediate CREATINE Verified 05/13/24 12:55 ELEVATION "PREP WITH BLUE DYE" Allergy Intermediate Rash Uncoded 05/13/24 12:55 Home Medications Medication Instructions Recorded Confirmed Type magnesium oxide 400 mg PO AMHS 07/26/18 05/13/24 History omega 4-uld-nbc-fish oil 1,000 mg 1,000 mg PO AMHS 07/26/18 05/13/24 History (120 mg-180 mg) capsule (Fish Oil) blood-glucose meter (Accu-Chek 02/12/21 05/13/24 History Garima Plus Meter) albuterol sulfate 90 mcg/actuation 2 puff inhalation Q6H PRN 09/30/22 05/13/24 Rx aerosol inhaler shortness of breath or wheezing #8.5 grams acetaminophen 650 mg 1,300 mg PO AMHS 01/20/23 05/13/24 History tablet,extended release (Tylenol Arthritis Pain) Hospital Bed [facility] ([facility] ea 03/03/23 05/13/24 Rx Bed) dulaglutide 1.5 mg/0.5 mL 1.5 mg subcut WK 04/15/23 05/13/24 History subcutaneous pen injector (Trulicity) duloxetine 60 mg capsule,delayed 60 mg PO QAM #90 caps 04/24/23 05/13/24 Rx release (Cymbalta) mirtazapine 7.5 mg tablet 7.5 mg PO HS 07/01/23 05/13/24 History blood sugar diagnostic (Accu-Chek #100 ea 07/16/23 05/13/24 Rx Garima Plus test strips) acyclovir 400 mg tablet 400 mg PO BID 08/24/23 05/13/24 History pen needle, diabetic 32 gauge x #200 ea 09/09/23 05/13/24 Rx 5/32" (BD Jaimee 2nd Gen Pen Needle) ferrous sulfate 325 mg (65 mg 325 mg PO QAM 09/15/23 05/13/24 History iron) tablet azelastine 137 mcg (0.1 %) nasal 2 spray intranasal DAILY PRN 09/30/23 05/13/24 Rx spray ALLERGIES #30 mL amiodarone 200 mg tablet (Pacerone) 200 mg PO AMHS 10/11/23 05/13/24 History calcium 600 mg (as 1 tab PO BID 10/11/23 05/13/24 History carbonate)-vitamin D3 10 mcg (400 unit) tablet Saccharomyces boulardii 250 mg 250 mg PO QAM 11/03/23 05/13/24 History capsule (Florastor) albuterol sulfate 2.5 mg/3 mL 2.5 mg inhalation Q4H PRN Wheezing 11/03/23 05/13/24 History (0.083 %) solution for nebulization cholestyramine (with sugar) 4 gram 1 ea PO BID PRN Diarrhea 11/03/23 05/13/24 History oral powder (Questran) ondansetron 4 mg disintegrating 4 mg PO Q6 PRN chemo associated n/v 11/03/23 05/13/24 History tablet menthol-zinc oxide [Calmoseptine] 1 dose topical UD PRN Cold Symptoms 12/04/23 05/13/24 History bumetanide 1 mg tablet 1 mg PO QAM 12/07/23 05/13/24 History apixaban 5 mg tablet (Eliquis) 5 mg PO BID #180 tabs 12/21/23 05/13/24 Rx vitamins A,C,F-jrkn-udzsuz 4,296 1 cap PO BID 02/11/24 05/13/24 History mcg-226 mg-90 mg capsule (PreserVision AREDS) dexamethasone 4 mg tablet 4 mg PO .Once monthly 03/03/24 05/13/24 History amoxicillin 500 mg capsule 1,000 mg (2 x 500 mg) PO ONCE PRN 03/15/24 05/13/24 Rx prior to dental work #2 caps FreeStyle Rafa 3 Plus Sensor #2 ea 03/21/24 05/13/24 Rx (blood-glucose sensor) calcitriol 0.5 mcg capsule 0.5 mcg PO QAM 03/22/24 05/13/24 History (Rocaltrol) Breo Ellipta 100 mcg-25 mcg/dose 1 inh inhalation DAILY #60 ea 04/07/24 05/13/24 Rx powder for inhalation (fluticasone furoate-vilanterol) betamethasone valerate 0.1 % 1 applic topical BID PRN PSORIASIS 04/13/24 05/13/24 Rx topical cream #45 grams digoxin 125 mcg (0.125 mg) tablet 125 mcg PO QAM Atrial fibrillation 04/13/24 05/13/24 Rx #90 tabs carvedilol 25 mg tablet (Coreg) 25 mg PO BID #180 tabs 04/26/24 05/13/24 Rx pantoprazole 40 mg tablet,delayed 40 mg PO DAILY #90 tabs 04/27/24 05/13/24 Rx release montelukast 10 mg tablet 10 mg PO QAM #30 tabs 05/04/24 05/13/24 Rx (Singulair) Levoxyl 137 mcg tablet 137 mcg PO QAM #30 tabs 05/16/24 Rx (levothyroxine) potassium chloride 20 mEq 20 meq PO AMHS 90 days #180 tabs 05/27/24 Rx tablet,extended release(part/cryst) (Klor-Con M) prednisone 5 mg tablet 5 mg PO QAM #90 tabs 05/27/24 Rx Past Med/Surg History Problem List (Updated 05/30/24 @ 13:46 by Ky Cordero DO) Chronic kidney insufficiency (Acute) Abnormal chest x-ray (Acute) Chest pain (Acute) Iron deficiency Allergic asthma Diabetes type 2, controlled Dyslipidemia Oral lesion Adrenal incidentaloma Atrial flutter Multiple myeloma currently getting chemo Heart failure with improved ejection fraction (HFimpEF) On amiodarone therapy ICD (implantable cardioverter-defibrillator), biventricular, in situ Asthma Paroxysmal ventricular tachycardia Hypertension Chronic anticoagulation (Acute) Psoriatic arthritis Iron deficiency anemia Lumbar canal stenosis Psoriasis (Chronic) GERD (gastroesophageal reflux disease) (Chronic) Hypothyroidism Spinal meningioma On c-spine- follows with [facility] [place] (Dr. Ken)- under surveillance/stable/no indication for surgical intervention, last seen Summer 2022 CKD (chronic kidney disease) stage 4, GFR 15-29 ml/min baseline creatinine 2.0-2.2 range; nephrology (Dr. Stevenson) monitoring Medical History CKD (chronic kidney disease) follows with Dr. Stevenson Hx of sepsis September 2023 > [facility] > resolved now per pt > was MRSA infection Atrial flutter controlled per pt Asthma well controlled per pt Multiple myeloma receiving chemo at present > monthly Mixed hearing loss, bilateral Allergic rhinitis Pulmonary nodule Vitamin D deficiency Depression Recurrent pleural effusion none at present Post laminectomy syndrome Hx of colonic polyps Hx of pulmonary edema Hx of non-ST elevation myocardial infarction (NSTEMI) (~01/2023) post pacer placement, then went back for pacer/defib placement Cardiomyopathy Esophageal dysmotility 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 for psoriatic arthritis Obesity Schatzki's ring Peptic ulcer disease Irritable bowel syndrome Surgical History S/P right colectomy History of thoracentesis x3 Hx of colonoscopy with polypectomy History of bone marrow biopsy (~04/2023) Hx of bilateral cataract extraction Presence of biventricular implantable cardioverter-defibrillator (ICD) Medtronic > placed Mar 2023 History of laparoscopy (~06/2020) exploratory after colectomy [place] [facility] History of colectomy (~06/2020) @ [facility] History of total left hip arthroplasty (~12/2019) History of total hip arthroplasty (~2019) x2 RIGHT 05/27/19. Complicated by post-op seroma requiring multiple needle aspirations. LEFT HIP 01/10/20 History of dilatation and curettage History of tooth extraction History of tonsillectomy and adenoidectomy History of cardiac cath X2; firts cath ~2008 (NO STENTS),symptoms of heartburn, [facility] second cath at [facility] 02/14 after epidsode of V-Tach, no stents, sees Dr. Granados History of arthroscopy RT/LEFT KNEE Status post total replacement of left shoulder History of esophagogastroduodenoscopy (EGD) History of total abdominal hysterectomy and bilateral salpingo-oophorectomy History of arthroscopy of right shoulder (~09/2018) History of total knee arthroplasty RIGHT History of foot surgery RT FOOT FUSION History of cholecystectomy History of lumbar fusion H/O thyroidectomy Family History Mother Arthritis Hypertension Father Lung cancer Hypertension Family/Other Family hx of colon cancer 1st cousin Unknown Allergies Breast cancer Hypertension Brother Cancer Heart disease Aunt Colorectal cancer Other No family history of adverse response to anesthesia No family history of bleeding disorder Denies family history of Ovarian cancer Prostate cancer Diabetes Hearing loss Myocardial infarction Stroke Asthma Social History Smoking Status: Former smoker Tobacco Type: Cigarettes Age Started Using Tobacco: 1; Age Quit Using Tobacco: 26; packs per day: 0; Second Hand Exposure: No; Do You Dip or Chew Tobacco: No; Hx Alcohol Use: No Hx Substance Use: No Preferred Language: Vietnamese Communication Ability: Effective Visual Impairment: Limited Hearing Ability: Granulator Operator Required: No Beliefs That Will Affect Care: None marital status: / Current Living Situation: Alone and Group Home Current Living Situation Comment: center care current occupational status: retired current occupation: Retired How many Children do You have: 0 Feels Safe at Home: Yes Childhood Exposure to Second-Hand Smoke: Yes Diet: low salt and regular Diet Comment: Pre-diabetic caffeine: Yes Dental Care, Regularly: Yes Physical Activity Frequency: Does not Exercise Physical Activity Frequency Comment: Hip problems Seatbelt Use: always Sunscreen Use: No Assistive Devices: Cane, Denture - Upper, Denture - Lower, Glasses, Scooter/Electric Scooter and Walker Review of Systems Review of Systems: see HPI Physical Exam Physical Exam: The patient is awake, alert and oriented 3, well developed and well nourished, normocephalic and atraumatic, in no acute distress. Non-toxic appearing. HEENT- EOMI, mucous membranes moist. Hearing grossly intact. Heart-normal S1 and S2. No murmurs, rubs or gallops. Chest pain reproducible by palpation. Lungs-clear bilaterally, no respiratory distress, no accessory muscle use. Abdomen-normal bowel sounds and soft. No ascites noted. Non-tender. Extremities- no clubbing, cyanosis, or edema. Rheumatologic-normal range of motion. Psychiatric-normal affect. Results & Data Results & Data Vital Signs (Past 12 Hours) Vital Signs Temp Pulse Pulse Resp BP BP Pulse Ox 05/30/24 13:29 70 19 103/70 96 05/30/24 10:59 69 05/30/24 10:43 94 H 20 94 05/30/24 10:43 94 H 20 113/73 94 05/30/24 10:43 05/30/24 10:43 36.6 C 94 H 20 113/73 94 O2 Del Method 05/30/24 13:29 Room Air 05/30/24 10:59 05/30/24 10:43 Room Air 05/30/24 10:43 Room Air 05/30/24 10:43 Room Air 05/30/24 10:43 Room Air Laboratory Results Reviewed CBC, PT/INR, CMP Diagnostic Findings reviewed cxr ECG Additional Comments: AV paced, mild ST elevations in anterior leads, new from previous EKG Code Status & VTE Plan Code Status full VTE Prophylaxis Plan VTE Prophylaxis will be ordered: Yes Supervising Physician Co-Signing Physician Notes The patient was seen by me. The chart was reviewed. Case discussed with SILVANA Menon. Agree with assessment and plan PG Care Time/CCT Total # of Minutes Spent Total Time Spent with Patient: Total time spent is greater than 50% in coordination of care (as documented) at patient's floor/unit and/or counseling patient: Coding Level of Care Code 92048 INT INP/OBS CARE 3/75MIN Diagnoses Chest pain R07.9 Chest pain type: unspecified CKD (chronic kidney disease) stage 4, GFR 15-29 ml/min N18.4 Diabetes type 2, controlled E11.9 (1) Chest pain Chest pain type: unspecified Qualified Code(s): R07.9 - Chest pain, unspecified
[2024-05-30 15:11] LABS: Adenovirus PCR Not Detected (NotDetected); Bordetella parapertussis PCR Not Detected (NotDetected); Bordetella pertussis PCR Not Detected (NotDetected); Chlamydia pneumoniae PCR Not Detected (NotDetected); Coronavirus 229E PCR Not Detected (NotDetected); Coronavirus CoV-2 (COVID19)PCR Not Detected (NotDetected); Coronavirus HKU1 PCR Not Detected (NotDetected); Coronavirus NL63 PCR Not Detected (NotDetected); Coronavirus OC43PCR Not Detected (NotDetected); Human Metapneumovirus PCR Not Detected (NotDetected); Influenza A PCR Not Detected (NotDetected); Influenza B PCR Not Detected (NotDetected); Mycoplasma pneumoniae PCR Not Detected (NotDetected); Parainfluenza Virus 1 PCR Not Detected (NotDetected); Parainfluenza Virus 2 PCR Not Detected (NotDetected); Parainfluenza Virus 3 PCR Not Detected (NotDetected); Parainfluenza Virus 4 PCR Not Detected (NotDetected); Respiratory Syncytial VirusPCR Not Detected (NotDetected); Rhinovirus/Enterovirus PCR Not Detected (NotDetected)
--- NOTE | 2024-05-30 16:10 | XCELERA ---
[id number]
[2024-05-30] MEDS ORDERED: ACETAMINOPHEN 325 MG TAB PO PRN (16:26)
[2024-05-30] MEDS ORDERED: ALBUTEROL HFA 8 GM INHALER INH PRN (16:26)
[2024-05-30] MEDS ORDERED: DOCUSATE SODIUM 100 MG CAP PO PRN (16:26)
[2024-05-30 18:05] VITALS: TEMP 98.2
[2024-05-30] MEDS: carvediloL 25 MG TAB PO SCH (18:22)
[2024-05-30] MEDS: AMIODARONE 200 MG TAB PO SCH (21:09)
[2024-05-30] MEDS: POTASSIUM CHLORIDE CRTAB 20 MEQ TABCR PO SCH (21:10)
[2024-05-30] MEDS: MAGNESIUM OXIDE 400 MG TAB PO SCH (21:10)
[2024-05-30] MEDS: APIXABAN 5 MG TABLET PO SCH (21:10)
[2024-05-30] MEDS: MIRTAZAPINE TAB 15 MG TAB PO SCH (21:10)
[2024-05-31 04:34] LABS: Basophils # (auto) 0.07 K/uL (0.00-0.20); Basophils % (auto) 1.7 %; Eosinophils # (auto) 0.78 K/uL (0.00-0.50); Eosinophils % (auto) 19.1 %; Hematocrit (blood only) 32.8 % (37.0-47.0); Hemoglobin 10.5 g/dl (12.0-16.0); Immature Granulocytes # (auto) 0.06 K/uL (0.01-0.20); Immature Granulocytes % (auto) 1.5 %; Lymphocytes # (auto) 1.01 K/uL (1.20-3.40); Lymphocytes % (auto) 24.8 %; Mean Corpuscular Hemoglobin 31.5 pg (25.0-34.0); Mean Corpuscular Volume 98.5 fL (80.0-100.0); Monocytes # (auto) 0.44 K/uL (0.11-0.59); Monocytes % (auto) 10.8 %; Neutrophils # (auto) 1.72 K/uL (1.40-6.50); Neutrophils % (auto) 42.1 %; Platelet Count 195 K/uL (130-400); RDW Standard Deviation 64.8 fL (36.4-46.3); Red Blood Count 3.33 M/uL (4.20-5.40); White Blood Count 4.08 K/ul (4.8-10.8)
[2024-05-31 04:50] LABS: BUN Creatinine Ratio 12.5 (10-20); Calcium 7.3 mg/dl (8.6-10.3); Chol HDL Ratio 2.6 (0-5); Creatinine Clr Calc Pharmacy 22.9 ml/min; Potassium 4.1 mmol/L (3.5-5.1)
[2024-05-31 04:56] LABS: Troponin I High Sensitivity 33.7 pg/ml (0-14)
--- NOTE | 2024-05-31 06:45 | Electrocardiogram Report ---
Test Reason : Blood Pressure : */* mmHG Vent. Rate : 75 BPM Atrial Rate : 75 BPM P-R Int : 172 ms QRS Dur : 122 ms QT Int : 374 ms P-R-T Axes : * -13 154 degrees QTcB Int : 417 ms AV dual-paced rhythm Abnormal ECG When compared with ECG of 10-Mar-2024 13:58, Vent. rate has decreased by 4 bpm Confirmed by David Mitchell ([id number]) on 05/31/2024 6:44:48 AM Referred By: Confirmed By: David Mitchell
[2024-05-31 07:13] LABS: Estimated Average Glucose 128 mg/dl; Hemoglobin A1C 6.1 % (4.5-5.6)
[2024-05-31] MEDS: MONTELUKAST SODIUM 10 MG TABLET PO SCH (07:57)
[2024-05-31] MEDS: PANTOprazole 40 MG TAB PO SCH (07:57)
[2024-05-31] MEDS: CALCITRIOL 0.25 MCG CAPSULE PO SCH (07:57)
[2024-05-31] MEDS: BUMETANIDE 1 MG TAB PO SCH (07:58)
[2024-05-31] MEDS: FERROUS SULFATE 325 MG TAB PO SCH (07:58)
[2024-05-31] MEDS: DIGOXIN 0.125 MG TAB PO SCH (07:58)
[2024-05-31] MEDS: DULoxetine HCL 60 MG CAP PO SCH (07:58)
[2024-05-31] MEDS: LEVOTHYROXINE SODIUM 137 MCG TABLET PO SCH (07:58)
[2024-05-31] MEDS: FLUTICASONE/VILANTEROL 100/25MCG 14 PUFFS/INHALER INH SCH (07:59)
--- NOTE | 2024-05-31 13:59 | Discharge Summary ---
Discharge Summary Date of Service May 31, 2024 Principal Dx & Hospital Course #1 = Principal Diagnosis (1) Chest pain: Atypical and palpable. Cardiac echo actually reveals a normal ejection fraction with no wall motion abnormality seen. Troponin is only minimally elevated and not indicative of acute coronary syndrome. (2) CKD (chronic kidney disease) stage 4, GFR 15-29 ml/min: Stable. Monitor intake and output. Serial labs (3) Diabetes type 2, controlled: Stable. Diabetic diet. Sliding scale insulin coverage as needed Plan All medications remain the same. She will follow-up with her pipe or steam fitter furnace installer as soon as possible Admission HPI Per Admitting Provider Mike is a 79-year-old female with past medical history of A-fib on Eliquis, CKD 4, nonischemic cardiomyopathy with biventricular AICD, multiple myeloma, hypothyroidism, cecal volvulus s/p ileocecectomy, hypertension, psoriatic arthritis, DM 2. She presents today due to chest heaviness that started last along with associated intermittent numbness arms and legs. She is being admitted for a chest pain workup. She stated that last night she began with chest heaviness that is still present. She has associated intermittent arm and leg numbness. She denies strokelike symptoms like facial droop, slurred speech, expressive aphasia, headaches, dizziness, blurred vision. She denies worsening of chest pain on exertion. Denies sharp stabbing chest pain. She stated she may have said something simil ar in the past but does not remember. Patient denies fever, chills, headache, dizziness, lightheadedness, rhinorrhea, sore throat, cough, dyspnea, dyspnea on exertion, abdominal pain, nausea, vomiting, diarrhea, constipation. She is currently undergoing treatment for multiple myeloma, she goes in once monthly. She is due to going on Thursday 06/01. She wishes to be full code at this time. She took all of her home medications morning. Discharge Plan Discharge Items Patient Disposition: Home - Self-Care Reason For Visit: CHEST PAIN WORKUP Discharge Diagnosis: Atypical chest pain, perioral paresthesia Activity: Resume your previous activity Non-emergency contact: Primary Care Provider and Product Marketing Intern Call non-emergency contact if: you have any medication questions and your symptoms worsen Follow-up/Referrals: Jigna Jovel, [Primary Care Provider] - Diet: Carb Consistent or DM2 and Heart Healthy Addtl Attending Provider Instructions: Home medications remain the same. Follow-up with pipe or steam fitter furnace installer as soon as possible Pending Studies at Discharge: No Stand-Alone Forms: My [facility], Smoking Cessation Medications and DC Order Prescriptions: Continued (DME) Hospital Bed [facility] See Rx Instructions .Route Qty: 1 0RF Rx Instructions: Semi-electric hospital bed with mattress and side rails (DME) Accu-Chek Garima Plus test strp Strip See Rx Instructions .ROUTE .MEDSUPPLY Qty: 100 3RF Rx Instructions: Check blood sugars once PRN (DME) pen needle, diabetic [BD Jaimee 2nd Gen Pen Needle] 32 gauge x 5/32" needl e See Rx Instructions .Route Qty: 200 11RF Rx Instructions: use for injections 4x daily, change with each use azelastine 137 mcg (0.1 %) aerosol,spray 2 spray INTRANASAL DAILY PRN (Reason: ALLERGIES) Qty: 30 0RF Eliquis 5 mg tablet 5 mg PO BID Qty: 180 3RF (DME) Like.come 3 Plus Sensor Device See Rx Instructions .Route Qty: 2 11RF Rx Instructions: Change sensor every 15 days fluticasone furoate-vilanterol [Breo Ellipta] 100-25 mcg/dose blister with device 1 inh inhalation DAILY Qty: 60 2RF betamethasone valerate 0.1 % cream 1 applic TOPICAL BID PRN (Reason: PSORIASIS ) Qty: 45 5RF Rx Instructions: Apply to areas of the arms twice daily for up to 2 weeks as needed for flaring. digoxin 125 mcg (0.125 mg) tablet 125 mcg PO QAM Qty: 90 3RF Rx Instructions: per patient needs renewed- has not taken for a week carvedilol [Coreg] 25 mg tablet 25 mg PO BID Qty: 180 3RF Rx Instructions: must administer with a meal/food pantoprazole 40 mg tablet,delayed release (DR/EC) 40 mg PO DAILY Qty: 90 1RF montelukast [Singulair] 10 mg tablet 10 mg PO QAM Qty: 30 3RF levothyroxine [Levoxyl] 137 mcg tablet 137 mcg PO QAM Qty: 30 3RF Rx Instructions: sublingual potassium chloride [Klor-Con M20] 20 mEq tablet,ER particles/crystals 20 meq PO AMHS 90 Days Qty: 180 3RF prednisone 5 mg tablet 5 mg PO QAM Qty: 90 3RF acyclovir 400 mg tablet 400 mg PO BID (DME) blood-glucose meter [Accu-Chek Garima Plus Meter] Misc See Rx Instructions .ROUTE .MEDSUPPLY Rx Instructions: Used to check blood sugars once PRN duloxetine [Cymbalta] 60 mg capsule,delayed release(DR/EC) 60 mg PO QAM Qty: 90 3RF albuterol sulfate 90 mcg/actuation HFA aerosol inhaler 2 puff inhalation Q6H PRN (Reason: shortness of breath or wheezing) Qty: 8.5 2RF dexamethasone 4 mg tablet 4 mg PO .Once monthly menthol-zinc oxide [Calmoseptine] 1 dose topical UD PRN (Reason: Cold Symptoms) amoxicillin 500 mg capsule 1,000 mg PO ONCE PRN (Reason: prior to dental work) Qty: 2 3RF PreserVision AREDS 4,296 mcg-226 mg-90 mg capsule 1 cap PO BID bumetanide 1 mg tablet 1 mg PO QAM Patient Comments: Increase to 2 mg PRN, for weight > 211 lb. omega 1-gqy-nqe-fish oil [Fish Oil] 1,000 mg (120 mg-180 mg) Capsule 1,000 mg PO AMHS magnesium oxide 400 mg magnesium Tablet 400 mg PO AMHS Trulicity 1.5 mg/0.5 mL pen injector 1.5 mg subcut WK Patient Comments: last dose 03/10/24 Rx Instructions: Inject 1.5 mg into the abdomen once weekly. acetaminophen [Tylenol Arthritis Pain] 650 mg Tablet Extended Release 1,300 mg PO AMHS mirtazapine 7.5 mg tablet 7.5 mg PO HS ferrous sulfate 325 mg (65 mg iron) tablet 325 mg PO QAM albuterol sulfate 2.5 mg /3 mL (0.083 %) Solution For Nebulization 2.5 mg INHALATION Q4H PRN (Reason: Wheezing) cholestyramine (with sugar) [Questran] 4 gram powder 1 ea PO BID PRN (Reason: Diarrhea) Rx Instructions: 4 gm doses Saccharomyces boulardii [Florastor] 250 mg Capsule 250 mg PO QAM ondansetron 4 mg Tablet,Disintegrating 4 mg PO Q6 PRN (Reason: chemo associated n/v) calcitriol [Rocaltrol] 0.5 mcg capsule 0.5 mcg PO QAM lenalidomide [Revlimid] 10 mg capsule 10 mg PO UD Rx Instructions: Filled 05/07 28 day supply #21 calcium carbonate-vitamin D3 600 mg-10 mcg (400 unit) tablet 1 tab PO BID amiodarone [Pacerone] 200 mg tablet 200 mg PO AMHS Discharge Orders: Discharge Order (Routine); Ordered 05/31/24 Ordered By: Irineo Martínez/Other Patient Handouts: Managing Type 2 Diabetes Admission Data Admit Date/Time: 05/30/24 14:03 Attending Provider: Irineo Funk Admit Provider: Irineo Funk Primary Care Provider: Jigna Jovel Providers: Irineo Funk Hospital Stay Data Consultations 05/30/24 13:41 ED Decision to Admit Stat Pending Results Patient Have Any Pending Studies at Discharge: No Discharge Instructions Given to Patient (Per Discharging Provider) Home medications remain the same. 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
--- NOTE | 2024-05-31 14:00 | Discharge Summary ---
Discharge Summary Date of Service May 31, 2024 Principal Dx & Hospital Course #1 = Principal Diagnosis (1) Chest pain: Atypical and palpable. Cardiac echo has shown improvement in left ventricular function and now reveals a normal ejection fraction with no wall motion abnormality seen. Troponin is only minimally elevated and not indicative of acute coronary syndrome. (2) CKD (chronic kidney disease) stage 4, GFR 15-29 ml/min: Stable. Monitor intake and output. Serial labs (3) Diabetes type 2, controlled: Stable. Diabetic diet. Sliding scale insulin coverage as needed Plan All medications remain the same. She will follow-up with her physical anthropologist as soon as possible Admission HPI Per Admitting Provider Mike is a 79-year-old female with past medical history of A-fib on Eliquis, CKD 4, nonischemic cardiomyopathy with biventricular AICD, multiple myeloma, hy pothyroidism, cecal volvulus s/p ileocecectomy, hypertension, psoriatic arthritis, DM 2. She presents today due to chest heaviness that started last along with associated intermittent numbness arms and legs. She is being admitted for a chest pain workup. She stated that last night she began with chest heaviness that is still present. She has associated intermittent arm and leg numbness. She denies strokelike symptoms like facial droop, slurred speech, expressive aphasia, headaches, dizziness, blurred vision. She denies worsening of chest pain on exertion. Denies sharp stabbing chest pain. She stated she may have said something similar in the past but does not remember. Patient denies fever, chills, headache, dizziness, lightheadedness, rhinorrhea, sore throat, cough, dyspnea, dyspnea on exertion, abdominal pain, nausea, vomiting, diarrhea, constipation. She is currently undergoing treatment for multiple myeloma, she goes in once monthly. She is due to going on Thursday 06/01. She wishes to be full code at this time. She took all of her home medications morning. Discharge Exam General-alert and oriented x3, no fever, no chills HEENT-head atraumatic and normocephalic, pupils equal and reactive to light, extraocular muscles intact Neck-no lymphadenopathy or thyromegaly, trachea midline Chest-clear to auscultation. No rales, wheezing or rhonchi. Palpable midsternal chest discomfort with pressure Cardiac-regular rate and rhythm, normal S1 and S2 Abdomen-normal bowel sounds, no hepatosplenomegaly Extremities-no cyanosis, clubbing, or edema Neuro-cranial nerves II through XII intact, motor and sensory function within normal limits, strength symmetrical, no focal deficits Psych-normal affect, normal mood Discharge Plan Discharge Items Patient Disposition: Home - Self-Care Reason For Visit: CHEST PAIN WORKUP Discharge Diagnosis: Atypical chest pain, perioral paresthesia Activity: Resume your previous activity Non-emergency contact: Primary Care Provider and Slate Roofer Call non-emergency contact if: you have any medication questions and your symptoms worsen Follow-up/Referrals: Jigna Jovel DO [Primary Care Provider] - Diet: Carb Consistent or DM2 and Heart Healthy Addtl Attending Provider Instructions: Home medications remain the same. Follow-up with physical anthropologist as soon as possible Pending Studies at Discharge: No Stand-Alone Forms: [employer], Smoking Cessation Medications and DC Order Prescriptions: Continued (DME) Hospital Bed Misc See Rx Instructions .Route Qty: 1 0RF Rx Instructions: Semi-electric hospital bed with mattress and side rails (DME) Accu-Chek Garima Plus test strp Strip See Rx Instructions .ROUTE .MEDSUPPLY Qty: 100 3RF Rx Instructions: Check blood sugars once PRN (DME) pen needle, diabetic [BD Jaimee 2nd Gen Pen Needle] 32 gauge x 5/32" needle See Rx Instructions .Route Qty: 200 11RF Rx Instructions: use for injections 4x daily, change with each use azelastine 137 mcg (0.1 %) aerosol,spray 2 spray INTRANASAL DAILY PRN (Reason: ALLERGIES) Qty: 30 0RF Eliquis 5 mg tablet 5 mg PO BID Qty: 180 3RF (DME) FreeStyle Rafa 3 Plus Sensor Device See Rx Instructions .Route Qty: 2 11RF Rx Instructions: Change sensor every 15 days fluticasone furoate-vilanterol [Breo Ellipta] 100-25 mcg/dose blister with device 1 inh inhalation DAILY Qty: 60 2RF betamethasone valerate 0.1 % cream 1 applic TOPICAL BID PRN (Reason: PSORIASIS ) Qty: 45 5RF Rx Instructions: Apply to areas of the arms twice daily for up to 2 weeks as needed for flaring. digoxin 125 mcg (0.125 mg) tablet 125 mcg PO QAM Qty: 90 3RF Rx Instructions: per patient needs renewed- has not taken for a week carvedilol [Coreg] 25 mg tablet 25 mg PO BID Qty: 180 3RF Rx Instructions: must administer with a meal/food pantoprazole 40 mg tablet,delayed release (DR/EC) 40 mg PO DAILY Qty: 90 1RF montelukast [Singulair] 10 mg tablet 10 mg PO QAM Qty: 30 3RF levothyroxine [Levoxyl] 137 mcg tablet 137 mcg PO QAM Qty: 30 3RF Rx Instructions: sublingual potassium chloride [Klor-Con M20] 20 mEq tablet,ER particles/crystals 20 meq PO AMHS 90 Days Qty: 180 3RF prednisone 5 mg tablet 5 mg PO QAM Qty: 90 3RF acyclovir 400 mg tablet 400 mg PO BID (DME) blood-glucose meter [Accu-Chek Garima Plus Meter] Misc See Rx Instructions .ROUTE .MEDSUPPLY Rx Instructions: Used to check blood sugars once PRN duloxetine [Cymbalta] 60 mg capsule,delayed release(DR/EC) 60 mg PO QAM Qty: 90 3RF albuterol sulfate 90 mcg/actuation HFA aerosol inhaler 2 puff inhalation Q6H PRN (Reason: shortness of breath or wheezing) Qty: 8.5 2RF dexamethasone 4 mg tablet 4 mg PO .Once monthly menthol-zinc oxide [Calmoseptine] 1 dose topical UD PRN (Reason: Cold Symptoms) amoxicillin 500 mg capsule 1,000 mg PO ONCE PRN (Reason: prior to dental work) Qty: 2 3RF PreserVision AREDS 4,296 mcg-226 mg-90 mg capsule 1 cap PO BID bumetanide 1 mg tablet 1 mg PO QAM Patient Comments: Increase to 2 mg PRN, for weight > 211 lb. omega 1-dod-qzy-fish oil [Fish Oil] 1,000 mg (120 mg-180 mg) Capsule 1,000 mg PO AMHS magnesium oxide 400 mg magnesium Tablet 400 mg PO AMHS Trulicity 1.5 mg/0.5 mL pen injector 1.5 mg subcut WK Patient Comments: last dose 03/10/24 Rx Instructions: Inject 1.5 mg into the abdomen once weekly. acetaminophen [Tylenol Arthritis Pain] 650 mg Tablet Extended Release 1,300 mg PO AMHS mirtazapine 7.5 mg tablet 7.5 mg PO HS ferrous sulfate 325 mg (65 mg iron) tablet 325 mg PO QAM albuterol sulfate 2.5 mg /3 mL (0.083 %) Solution For Nebulization 2.5 mg INHALATION Q4H PRN (Reason: Wheezing) cholestyramine (with sugar) [Questran] 4 gram powder 1 ea PO BID PRN (Reason: Diarrhea) Rx Instructions: 4 gm doses Saccharomyces boulardii [Florastor] 250 mg Capsule 250 mg PO QAM ondansetron 4 mg Tablet,Disintegrating 4 mg PO Q6 PRN (Reason: chemo associated n/v) calcitriol [Rocaltrol] 0.5 mcg capsule 0.5 mcg PO QAM lenalidomide [Revlimid] 10 mg capsule 10 mg PO UD Rx Instructions: Filled 05/07 28 day supply #21 calcium carbonate-vitamin D3 600 mg-10 mcg (400 unit) tablet 1 tab PO BID amiodarone [Pacerone] 200 mg tablet 200 mg PO AMHS Discharge Orders: Discharge Order (Routine); Ordered 05/31/24 Ordered By: Irineo Martníez/Other Patient Handouts: Managing Type 2 Diabetes Admission Data Admit Date/Time: 05/30/24 14:03 Attending Provider: Irineo Funk Admit Provider: Irineo Funk Primary Care Provider: Jigna Jovel Other Providers: Irineo Funk Hospital Stay Data Consultations 05/30/24 13:41 ED Decision to Admit Stat Pending Results Patient Have Any Pending Studies at Discharge: No Discharge Instructions Given to Patient (Per Discharging Provider) Home medications remain the same. Follow-up with physical anthropologist as soon as possible Total Time Total Time Spent Total Time Spent (In Minutes): 45 minutes Coding Level of Care Code 81398 INP/OBS DISCH >30 MIN Diagnoses Chest pain R07.9 Chest pain type: unspecified CKD (chronic kidney disease) stage 4, GFR 15-29 ml/min N18.4 Diabetes type 2, controlled E11.9
[2024-05-31 14:50] VITALS: BP 106/65; PULSE 79; RESP 22; O2SAT 96
== END 2024-05-31 14:50 | disposition home or self-care (01) ==
LOC: ED 10:41 → EDINP 10:41

== ENCOUNTER 2025-03-23 09:24 | Inpatient (IN) ==
[2025-03-23 09:53] LABS: Base Excess VBG 0.4 mEq/L; HCO3 VBG 28 mmol/L; Oxygen Saturation VBG < 60.0 %; PCO2 VBG 55 mmHg (38-50); PO2 VBG < 20 mmHg; pH VBG 7.31 (7.36-7.41)
[2025-03-23] MEDS: diphenhydrAMINE 50 MG/ML VIAL IV STA (10:01)
--- NOTE | 2025-03-23 10:27 | Emergency Department Note ---
Impression & Plan Acute dyspnea, Acute hypoxemic respiratory failure, Acute CHF, Elevated troponin, Elevated brain natriuretic peptide (BNP) level ED Provider Note HISTORY OF PRESENT ILLNESS: Patient is a 79-year-old female presenting with shortness of breath. Patient reports she woke up from sleep at 3 AM this morning and felt like she could not catch her breath. She states that she walked to the bathroom and used her inhaler but it did not seem to help. She states that she was finally able to fall back asleep but woke up again and felt short of breath. She tried another dose of her inhaler with little relief in her symptoms. She denies any supplemental oxygen use at home. Denies any DVT or PE history. She is on Eliquis for history of A-fib. She denies any recent fevers or chills. She has had a chronic cough. Denies any abdominal pain, nausea or vomiting. Patient called EMS because she could not catch her breath and on EMS arrival her saturations were 87% on room air for EMS. On arrival to the ER, the patient reports that with the supplemental oxygen she feels like her shortness of breath has improved. She has a history of cancer and is on chemotherapy with the last round of chemo being 2 weeks ago. She denies any recent antibiotic or steroid use. She does report that she gets steroids prior to her chemo treatments, with the last 1 being 2 weeks ago. ROS: as above PHYSICAL EXAM: Constitutional: Patient appears in mild distress. HENT: Head: Normocephalic and atraumatic. Eyes: EOMI, PERRL Mouth/Throat: Mucous membranes moist. Neck: Trachea midline. Neck supple. Cardiovascular: Paced rhythm. No murmurs, rubs or gallops. Intact distal pulses. Pulmonary/Chest: Patient is conversationally dyspneic on 4 L nasal cannula. She has coarse breath sounds diffusely throughout her lung osman. Abdominal: Abdomen soft, no tenderness, rebound or guarding. Musculoskeletal: No edema, tenderness or deformity noted. Skin: Warm and dry. No rash, erythema, pallor or cyanosis Psychiatric: Appropriate mood and affect for situation. Neurological: Alert and keenly responsive. CN II-XII grossly intact, moving all extremities equally and fully. MDM: - Vitals signs showed hypoxia, tachypnea and hypertension. Patient initially placed on supplemental nasal cannula with improvement in her oxygenation. - History obtained via patient. History as above. - Chronic conditions affecting care: multiple myeloma; GERD; hypothyroidism; HLD; HTN; CHF; CKD; DM-2 - Differential diagnoses include, but are not limited to: Congestive heart failure; acute coronary syndrome; COPD/asthma exacerbation; pulmonary edema; pulmonary embolism; pneumonia; pneumothorax; viral syndrome - Order placed for continuous cardiac monitoring. At this time, monitor showed rate of 71 bpm with paced rhythm, per my interpretation. - External medical records reviewed. Nephrology office visit note dated 03/19/2025 was reviewed. Patient follows in their clinic for her stage IV kidney disease. Her baseline creatinine is about 2.5. - EKG image interpreted by myself showed paced rhythm. Rate 71 bpm. - Laboratory workup interpreted by myself showed normal WBC; normal PT/INR; stable electrolytes; baseline CKD (Cr 2.40); elevated total bilirubin (1.2) with transaminitis (AST 79; ALT 79); elevated troponin (49); elevated BNP (2140) - CXR image reviewed interpreted by myself shows bilateral pleural effusions, per my interpretation. - Patient initially been pretreatment for CT IV contrast. She is given 60 mg IV Solu-Medrol and 25 mg IV Benadryl. However, her creatinine is significantly elevated so decision was made to cancel the CT PE scan. - Viral respiratory panel negative - UA showed evidence of infection - Repeat troponin elevated and rising at 60.5 - VBG showed respiratory acidosis. - Patient has saturations in the 90s on 4 L nasal cannula. However, she does appear very tachypneic and uncomfortable. She was given 0.4 mg of sublingual nitroglycerin. She was also given 0.5 mg of IV Bumex to help with diaphoresis. Started on BiPAP. - Discussion was had with pillowcase sewer about patient's case and need for admission - Hospitalist consulted for admission - [facility]. I have personally spent 63 minutes of critical care time in the direct management of this patient. This includes bedside care, interpretation of diagnostic studies, and testing, discussion with consultants, patient, and family members, and other required patient management activities. This 63 minutes is in excess of all separately billable procedures. ASSESSMENT AND PLAN: Diagnosis: acute dyspnea; acute hypoxemic respiratory failure; elevated troponin; elevated BNP; acute CHF exacerbation Plan: Admit Past Med/Surg History Problem List (Updated 03/23/25 @ 15:54 by Zandra Bain MD) Elevated brain natriuretic peptide (BNP) level (Acute) Elevated troponin (Acute) Acute CHF (Acute) Acute hypoxemic respiratory failure (Acute) Acute dyspnea (Acute) Hypertensive emergency Restrictive lung disease Lumbosacral radiculopathy Back pain at L4-L5 level Cellulitis of foot, left (Acute) Acute pain of left foot (Acute) Fusion of lumbar spine Sacroiliitis Iron deficiency Allergic asthma Dyslipidemia Oral lesion Adrenal incidentaloma Atrial flutter Multiple myeloma currently getting chemo On amiodarone therapy ICD (implantable cardioverter-defibrillator), biventricular, in situ Asthma Paroxysmal ventricular tachycardia Chronic anticoagulation (Acute) Psoriatic arthritis Lumbar canal stenosis GERD (gastroesophageal reflux disease) (Chronic) Hypothyroidism Spinal meningioma On c-spine- follows with [facility] neurosurgery specialist (Dr. Ken)- under surveillance/stable/no indication for surgical intervention, last seen Summer 2022 Medical History Heart failure with improved ejection fraction (HFimpEF) Hypertension Chronic kidney insufficiency Diabetes type 2, controlled CKD (chronic kidney disease) stage 4, GFR 15-29 ml/min Hx of sepsis Atrial flutter Asthma Multiple myeloma Mixed hearing loss, bilateral Allergic rhinitis Pulmonary nodule Vitamin D deficiency Depression Recurrent pleural effusion Post laminectomy syndrome Hx of colonic polyps Hx of pulmonary edema Hx of non-ST elevation myocardial infarction (NSTEMI) (~01/2023) Cardiomyopathy Esophageal dysmotility Hiatal hernia alf current use of systemic steroids Obesity Schatzki's ring Peptic ulcer disease Irritable bowel syndrome Surgical History S/P right colectomy History of thoracentesis Hx of colonoscopy with polypectomy History of bone marrow biopsy (~04/2023) Hx of bilateral cataract extraction Presence of biventricular implantable cardioverter-defibrillator (ICD) History of laparoscopy (~06/2020) History of colectomy (~06/2020) History of total left hip arthroplasty (~12/2019) History of total hip arthroplasty (~2019) History of dilatation and curettage History of tooth extraction History of tonsillectomy and adenoidectomy History of cardiac cath History of arthroscopy Status post total replacement of left shoulder History of esophagogastroduodenoscopy (EGD) History of total abdominal hysterectomy and bilateral salpingo-oophorectomy History of arthroscopy of right shoulder (~09/2018) History of total knee arthroplasty History of foot surgery History of cholecystectomy History of lumbar fusion H/O thyroidectomy Family History Mother Arthritis Hypertension Father Lung cancer Hypertension Family/Other Family hx of colon cancer Unknown Allergies Breast cancer Hypertension Brother Cancer Heart disease Aunt Colorectal cancer Other No family history of adverse response to anesthesia No family history of bleeding disorder Denies family history of Ovarian cancer Prostate cancer Diabetes Hearing loss Myocardial infarction Stroke Asthma Social History Smoking Status: Former smoker Tobacco Type: Cigarettes Age Started Using Tobacco: 19; Age Quit Using Tobacco: 26; packs per day: 1; Second Hand Exposure: No; Do You Dip or Chew Tobacco: No; Hx Alcohol Use: No Hx Substance Use: No Preferred Language: Puerto Rican Communication Ability: Effective Visual Impairment: Limited Hearing Ability: Testboard Operator Required: No Beliefs That Will Affect Care: None marital status: / Current Living Situation: Alone Current Living Situation Comment: home alone (house) current occupational status: retired current occupation: Retired How many Children do You have: 0 Feels Safe at Home: Yes Childhood Exposure to Second-Hand Smoke: Yes Diet: low salt and regular Diet Comment: Pre-diabetic caffeine: Yes Dental Care, Regularly: Yes Physical Activity Frequency: Does not Exercise Physical Activity Frequency Comment: Hip problems Seatbelt Use: always Sunscreen Use: No Assistive Devices: Cane, Scooter/Electric Scooter, Walker and Wheelchair Allergies Allergies Allergy/AdvReac Type Severity Reaction Status Date / Time codeine Allergy Severe Anaphylaxis Verified 03/20/25 14:23 blue dye Allergy Intermediate rash from Verified 03/20/25 14:23 "prep with blue dye" celecoxib [From Celebrex] Allergy Intermediate RASH Verified 03/20/25 14:23 cephalexin [From Keflex] Allergy Intermediate Rash Verified 03/20/25 14:23 hydrocodone Allergy Intermediate Rash Verified 03/20/25 14:23 Iodinated Contrast Media Allergy Intermediate RASH Verified 03/20/25 14:23 nickel Allergy Intermediate Rash Verified 03/20/25 14:23 oxycodone Allergy Intermediate Rash Verified 03/20/25 14:23 Sulfa (Sulfonamide Allergy Intermediate RASH TO Verified 03/20/25 14:23 Antibiotics) SULFA DRUGS tetracycline Allergy Intermediate RASH Verified 03/20/25 14:23 furosemide Allergy Unknown Verified 03/20/25 14:23 capsaicin AdvReac Intermediate CREATINE Verified 03/20/25 14:23 ELEVATION diclofenac AdvReac Intermediate CREATINE Verified 03/20/25 14:23 ELEVATION propylene glycol AdvReac Intermediate CREATINE Verified 03/20/25 14:23 ELEVATION Home Meds Home Medications Medication Instructions Recorded Confirmed magnesium oxide 400 mg PO AMHS 07/26/18 03/23/25 omega [id number]-tnf-csd-fish oil 1,000 mg 1,000 mg PO AMHS 07/26/18 03/23/25 (120 mg-180 mg) capsule (Fish Oil) blood-glucose meter (Accu-Chek 02/12/21 03/20/25 Garima Plus Meter) acetaminophen 650 mg 1,300 mg PO AMHS 01/20/23 03/23/25 tablet,extended release (Tylenol Arthritis Pain) mirtazapine 7.5 mg tablet 7.5 mg PO HS 07/01/23 03/23/25 calcium 600 mg (as 1 tab PO BID 10/11/23 03/23/25 carbonate)-vitamin D3 10 mcg (400 unit) tablet albuterol sulfate 2.5 mg/3 mL 2.5 mg inhalation Q4H PRN Wheezing 11/03/23 03/23/25 (0.083 %) solution for nebulization cholestyramine (with sugar) 4 gram 1 ea PO BID PRN Diarrhea 11/03/23 03/23/25 oral powder (Questran) ondansetron 4 mg disintegrating 4 mg PO Q6 PRN chemo associated n/v 11/03/23 03/23/25 tablet menthol-zinc oxide [Calmoseptine] 1 dose topical UD PRN Cold Symptoms 12/04/23 03/23/25 vitamins A,C,T-aayx-araepp 4,296 1 cap PO BID 02/11/24 03/23/25 mcg-226 mg-90 mg capsule (PreserVision AREDS) dexamethasone 4 mg tablet 4 mg PO DIRECTED PRN 10/10/24 10/30/25 APPOINTMENTS lenalidomide 10 mg capsule 10 mg PO UD 05/30/24 03/23/25 (Revlimid) ferrous sulfate 325 mg (65 mg 325 mg PO QAM PRN Other 08/29/24 03/23/25 iron) tablet acyclovir 400 mg tablet 400 mg PO BID 10/21/24 03/23/25 prednisone 5 mg tablet 5 mg PO PM 01/22/25 03/23/25 triamcinolone acetonide 0.1 % 1 applic topical BID PRN otjer 01/22/25 03/23/25 topical cream Previous Rx's Medication Instructions Recorded Hospital Bed Homecare (Hospital #1 ea 03/03/23 Bed) blood sugar diagnostic (Accu-Chek #100 ea 07/16/23 Garima Plus test strips) azelastine 137 mcg (0.1 %) nasal 2 spray intranasal DAILY PRN 09/30/23 spray ALLERGIES #30 mL amoxicillin 500 mg capsule 1,000 mg (2 x 500 mg) PO ONCE PRN 03/15/24 prior to dental work #2 caps FreeStyle Rafa 3 Plus Sensor #2 ea 03/21/24 (blood-glucose sensor) potassium chloride 20 mEq 20 meq PO AMHS 90 days #180 tabs 05/27/24 tablet,extended release(part/cryst) (Klor-Con M) duloxetine 60 mg capsule,delayed 60 mg PO QAM #90 caps 07/21/24 release (Cymbalta) Breo Ellipta 100 mcg-25 mcg/dose 1 inh inhalation DAILY #60 ea 09/22/24 powder for inhalation (fluticasone furoate-vilanterol) pantoprazole 40 mg tablet,delayed 40 mg PO DAILY #90 tabs 10/21/24 release dulaglutide 1.5 mg/0.5 mL 1.5 mg (0.5 mL) subcut WK #2 mL 11/18/24 subcutaneous pen injector (Trulicity) Levoxyl 137 mcg tablet 137 mcg PO QAM #30 tabs 12/01/24 (levothyroxine) pen needle, diabetic 32 gauge x #100 ea 12/01/24" carvedilol 6.25 mg tablet (Coreg) 6.25 mg PO BID #60 tabs 12/21/24 apixaban 5 mg tablet (Eliquis) 5 mg PO BID #180 tabs 12/22/24 bumetanide 1 mg tablet 1 mg PO QAM #90 tabs 12/28/24 digoxin 125 mcg (0.125 mg) tablet 125 mcg PO .MWF Atrial 01/10/25 fibrillation #90 tabs albuterol sulfate 90 mcg/actuation 2 inh inhalation Q4H PRN shortness 02/09/25 aerosol inhaler of breath or wheezing #8.5 grams Results & Data (ED) Vital Signs Vital Signs - 24 hr 03/23/25 09:34 03/23/25 09:34 03/23/25 09:34 Temperature Temperature Source Pulse Rate Pulse Rate [Apical] 72 Pulse Rhythm [Apical] Pulse Strength [Apical] Respiratory Rate 30 H Respiratory Effort / Characteristics Labored SOB on Exertion Respiratory Depth Shallow Shallow Respiratory Pattern Tachypnea Blood Pressure Blood Pressure [Right Arm] 193/126 H Blood Pressure Mean Blood Pressure Mean [Right Arm] 148 Blood Pressure Position [Right Arm] Pulse Oximetry 96 96 Oxygen Delivery Method Nasal Cannula Nasal Cannula Oxygen Flow Rate 5 5 Fraction of Inspired Oxygen Sepsis Recent Fever Within 48 Hours Sepsis New/Unexplained Change in Mental Status Sepsis Action Taken by Nursing 03/23/25 09:35 03/23/25 09:54 03/23/25 09:59 Temperature 36.9 C Temperature Source Oral Pulse Rate 86 77 Pulse Rate [Apical] Pulse Rhythm [Apical] Pulse Strength [Apical] Respiratory Rate 33 H 30 H Respiratory Effort / Characteristics Spontaneous Labored Respiratory Depth Shallow Respiratory Pattern Tachypnea Blood Pressure 183/124 H Blood Pressure [Right Arm] Blood Pressure Mean 143 Blood Pressure Mean [Right Arm] Blood Pressure Position [Right Arm] Pulse Oximetry 87 L 96 Oxygen Delivery Method Room Air Nasal Cannula Oxygen Flow Rate 5 Fraction of Inspired Oxygen Sepsis Recent Fever Within 48 Hours No Sepsis New/Unexplained Change in Mental Status No Sepsis Action Taken by Nursing No Action Required 03/23/25 12:00 03/23/25 12:55 03/23/25 13:36 Temperature Temperature Source Pulse Rate 70 Pulse Rate [Apical] 72 70 Pulse Rhythm [Apical] Regular Pulse Strength [Apical] Normal Respiratory Rate 26 H 30 H 32 H Respiratory Effort / Characteristics Spontaneous Short of Breath SOB on Exertion Spontaneous Spontaneous Labored Respiratory Depth Shallow Normal Respiratory Pattern Tachypnea Regular Blood Pressure Blood Pressure [Right Arm] 196/123 H 177/108 H Blood Pressure Mean Blood Pressure Mean [Right Arm] 147 131 Blood Pressure Position [Right Arm] Lying Pulse Oximetry 97 94 98 Oxygen Delivery Method Nasal Cannula BiPAP Oxygen Flow Rate 4 Fraction of Inspired Oxygen 35 Sepsis Recent Fever Within 48 Hours Sepsis New/Unexplained Change in Mental Status Sepsis Action Taken by Nursing 03/23/25 13:53 03/23/25 14:00 03/23/25 14:21 Temperature Temperature Source Pulse Rate 70 71 Pulse Rate [Apical] 70 Pulse Rhythm [Apical] Pulse Strength [Apical] Respiratory Rate 24 Respiratory Effort / Characteristics Non-Labored Spontaneous Respiratory Depth Normal Respiratory Pattern Regular Blood Pressure Blood Pressure [Right Arm] 177/108 H Blood Pressure Mean Blood Pressure Mean [Right Arm] 131 Blood Pressure Position [Right Arm] Pulse Oximetry 100 100 Oxygen Delivery Method BiPAP BiPAP Oxygen Flow Rate Fraction of Inspired Oxygen Sepsis Recent Fever Within 48 Hours Sepsis New/Unexplained Change in Mental Status Sepsis Action Taken by Nursing Laboratory Data 03/23/25 09:36 03/23/25 09:36 Lab Results 03/23/25 03/23/25 03/23/25 Range/Units 09:36 10:03 11:33 WBC 5.46 (4.8-10.8) K/ul RBC 3.93 L (4.20-5.40) M/uL Hgb 12.7 (12.0-16.0) g/dl Hct 40.7 (37.0-47.0) % MCV 103.6 H (80.0-100.0) fL MCH 32.3 (25.0-34.0) pg MCHC 31.2 L (32.0-36.0) g/dL RDW Std Deviation 70.4 H (36.4-46.3) fL RDW Coeff of Amrita 18.9 H (11.5-14.5) % Plt Count 274 (130-400) K/uL MPV 10.8 (9.4-12.4) fL Immature Gran % (Auto) 0.5 % Neut % (Auto) 51.9 % Lymph % (Auto) 28.6 % [place] % (Auto) 15.0 % Eos % (Auto) 1.1 % Baso % (Auto) 2.9 % Neut # (Auto) 2.83 (1.40-6.50) K/uL Lymph # (Auto) 1.56 (1.20-3.40) K/uL [place] # (Auto) 0.82 H (0.11-0.59) K/uL Eos # (Auto) 0.06 (0.00-0.50) K/uL Baso # (Auto) 0.16 (0.00-0.20) K/uL Immature Gran # (Auto) 0.03 (0.01-0.20) K/uL PT 11.4 (9.0-12.0) Seconds INR 1.1 (0.9-1.1) VBG pH 7.31 L (7.36-7.41) VBG pCO2 55 H (38-50) mmHg VBG pO2 < 20 mmHg VBG HCO3 28 mmol/L VBG O2 Saturation < 60.0 % VBG Base Excess 0.4 mEq/L Sodium 143 (136-145) mmol/L Potassium 5.0 (3.5-5.1) mmol/L Chloride 110 H (98-107) mmol/L Carbon Dioxide 26 (21-32) mmol/L Anion Gap 7 (3-11) BUN 33 H (6-23) mg/dl Creatinine 2.40 H (0.6-1.2) mg/dl Est Cr Clr Drug Dosing 25.0 ml/min eGFR 20.17 BUN/Creatinine Ratio 13.8 (10-20) Glucose 151 H (70-99(Fasting)) mg/dl Calcium 9.0 (8.6-10.3) mg/dl Magnesium 2.2 (1.7-2.4) mg/dl Total Bilirubin 1.2 H (0.2-1.0) mg/dl AST 79 H (13-39) U/L ALT 79 H (7-52) U/L Alkaline Phosphatase 260 H (34-104) U/L Troponin I High Sens 49.0 H 60.5 H* D (0-14) pg/ml B-Natriuretic Peptide 2140 H (0-100) pg/ml Total Protein 6.4 (6.0-8.3) gm/dl Albumin 3.4 (3.4-5.0) gm/dl Globulin 3.0 (2.5-4.0) gm/dl Albumin/Globulin Ratio 1.1 (0.9-2) Procalcitonin (0-0.5) ng/ml TSH (0.300-4.500) uIu/ml Urine Color Urine Appearance (Clear) Urine pH (4.5-7.5) Ur Specific Shirley (1.000-1.030) Urine Protein (Negative) Urine Glucose (UA) (Negative) Urine Ketones (Negative) Urine Blood (Negative) Urine Nitrite (Negative) Urine Bilirubin (Negative) Urine Urobilinogen (Negative) Ur Leukocyte Esterase (Negative) Urine WBC (Auto) (0-5) /hpf Urine RBC (Auto) (0-2) /hpf U Hyaline Cast (Auto) (0-2) /lpf U Epithel Cells (Auto) (0-2) /hpf Urine Bacteria (Auto) (None Seen) Urine Comment Adenovirus (PCR) Not Detected (NotDetected) B. pertussis DNA (PCR) Not Detected (NotDetected) B.parapertussis DNA PCR Not Detected (NotDetected) C. pneumoniae DNA (PCR) Not Detected (NotDetected) Coronavirus OC43 (PCR) Not Detected (NotDetected) Coronavirus HKU1 (PCR) Not Detected (NotDetected) Coronavirus 229E (PCR) Not Detected (NotDetected) SARS-CoV-2 (PCR) Not Detected (NotDetected) Coronavirus NL63 (PCR) Not Detected (NotDetected) Human Metapneumovir PCR Not Detected (NotDetected) Influenza Type A (PCR) Not Detected (NotDetected) Influenza Type B (PCR) Not Detected (NotDetected) M. pneumoniae (PCR) Not Detected (NotDetected) Parainfluenza 1 (PCR) Not Detected (NotDetected) Parainfluenza 2 (PCR) Not Detected (NotDetected) Parainfluenza 3 (PCR) Not Detected (NotDetected) Parainfluenza 4 (PCR) Not Detected (NotDetected) RSV (PCR) Not Detected (NotDetected) Entero/Rhino (PCR) Not Detected (NotDetected) 03/23/25 03/23/25 Range/Units 12:17 14:36 WBC (4.8-10.8) K/ul RBC (4.20-5.40) M/uL Hgb (12.0-16.0) g/dl Hct (37.0-47.0) % MCV (80.0-100.0) fL MCH (25.0-34.0) pg MCHC (32.0-36.0) g/dL RDW Std Deviation (36.4-46.3) fL RDW Coeff of Amrita (11.5-14.5) % Plt Count (130-400) K/uL MPV (9.4-12.4) fL Immature Gran % (Auto) % Neut % (Auto) % Lymph % (Auto) % [place] % (Auto) % Eos % (Auto) % Baso % (Auto) % Neut # (Auto) (1.40-6.50) K/uL Lymph # (Auto) (1.20-3.40) K/uL [place] # (Auto) (0.11-0.59) K/uL Eos # (Auto) (0.00-0.50) K/uL Baso # (Auto) (0.00-0.20) K/uL Immature Gran # (Auto) (0.01-0.20) K/uL PT (9.0-12.0) Seconds INR (0.9-1.1) VBG pH (7.36-7.41) VBG pCO2 (38-50) mmHg VBG pO2 mmHg VBG HCO3 mmol/L VBG O2 Saturation % VBG Base Excess mEq/L Sodium (136-145) mmol/L Potassium (3.5-5.1) mmol/L Chloride (98-107) mmol/L Carbon Dioxide (21-32) mmol/L Anion Gap (3-11) BUN (6-23) mg/dl Creatinine (0.6-1.2) mg/dl Est Cr Clr Drug Dosing ml/min eGFR BUN/Creatinine Ratio (10-20) Glucose (70-99(Fasting)) mg/dl Calcium (8.6-10.3) mg/dl Magnesium (1.7-2.4) mg/dl Total Bilirubin (0.2-1.0) mg/dl AST (13-39) U/L ALT (7-52) U/L Alkaline Phosphatase (34-104) U/L Troponin I High Sens 66.0 H* (0-14) pg/ml B-Natriuretic Peptide (0-100) pg/ml Total Protein (6.0-8.3) gm/dl Albumin (3.4-5.0) gm/dl Globulin (2.5-4.0) gm/dl Albumin/Globulin Ratio (0.9-2) Procalcitonin 0.53 H (0-0.5) ng/ml TSH 12.592 H (0.300-4.500) uIu/ml Urine Color Dark Yellow Urine Appearance Cloudy A (Clear) Urine pH 6.0 (4.5-7.5) Ur Specific Shirley 1.026 (1.000-1.030) Urine Protein 2+ H (Negative) Urine Glucose (UA) Negative (Negative) Urine Ketones Trace H (Negative) Urine Blood Negative (Negative) Urine Nitrite Negative (Negative) Urine Bilirubin Negative (Negative) Urine Urobilinogen Negative (Negative) Ur Leukocyte Esterase Trace H (Negative) Urine WBC (Auto) 0-5 (0-5) /hpf Urine RBC (Auto) 0-2 (0-2) /hpf U Hyaline Cast (Auto) 0-2 (0-2) /lpf U Epithel Cells (Auto) 6-10 H (0-2) /hpf Urine Bacteria (Auto) 1+ H (None Seen) Urine Comment Adenovirus (PCR) (NotDetected) B. pertussis DNA (PCR) (NotDetected) B.parapertussis DNA PCR (NotDetected) C. pneumoniae DNA (PCR) (NotDetected) Coronavirus OC43 (PCR) (NotDetected) Coronavirus HKU1 (PCR) (NotDetected) Coronavirus 229E (PCR) (NotDetected) SARS-CoV-2 (PCR) (NotDetected) Coronavirus NL63 (PCR) (NotDetected) Human Metapneumovir PCR (NotDetected) Influenza Type A (PCR) (NotDetected) Influenza Type B (PCR) (NotDetected) M. pneumoniae (PCR) (NotDetected) Parainfluenza 1 (PCR) (NotDetected) Parainfluenza 2 (PCR) (NotDetected) Parainfluenza 3 (PCR) (NotDetected) Parainfluenza 4 (PCR) (NotDetected) RSV (PCR) (NotDetected) Entero/Rhino (PCR) (NotDetected) Administered Medications Discontinued Medications Diphenhydramine HCl (Diphenhydramine 50 Mg/Ml Vial) 25 mg IV NOW STA Stop: 03/23/25 09:47 Last Admin: 03/23/25 10:01 Dose: 25 mg Documented By: JUDAH Bumetanide 0.5 mg/ Syringe 2 mls @ 4 mls/min IV ONE ONE Stop: 03/23/25 12:30 Last Admin: 03/23/25 13:49 Dose: 4 mls/min Documented By: JUDAH Methylprednisolone (Methylprednisolone 125 Mg/2 Ml Vial) 60 mg IV NOW STA Stop: 03/23/25 09:47 Last Admin: 03/23/25 10:01 Dose: 60 mg Documented By: JUDAH Nitroglycerin (Nitroglycerin Sl 0.4 Mg/Tab Tab) 0.4 mg SL NOW STA Stop: 03/23/25 12:39 Last Admin: 03/23/25 12:56 Dose: 0.4 mg Documented By: JUDAH Imaging Data Radiologist's Impression: Chest X-Ray 03/23/25 09:45 XR chest 1V portable CLINICAL HISTORY: Dyspnea COMPARISON STUDY: 01/30/2025 FINDINGS: Stable pacemaker and left shoulder prosthesis. There is increased cardiomegaly and pulmonary vascular congestion. There are small bilateral pleural effusions and adjacent lung base consolidation. No pneumothorax. IMPRESSION: CHF with bilateral pleural effusion/lung base consolidation. ACT 112: Negative or not required by law. Electronically signed by: Antoni Zaragoza M.D. 03/23/2025 10:51 AM Discharge Plan Visit Data Chief Complaint: Shortness of Breath/Dyspnea Stated Complaint: SOB ED Provider: Zandra Bain Discharge Problem: Acute dyspnea, Acute hypoxemic respiratory failure, Acute CHF, Elevated troponin, Elevated brain natriuretic peptide (BNP) level Patient Disposition: Admitted As Inpatient Condition: Fair Discharge Instructions Interventions: ED Discharge Assessment Last Done: 03/23/25 15:18 Forms Stand Alone Forms: [email or web address] Prescriptions Prescriptions: No Action (DME) Hospital Bed Misc See Rx Instructions .Route Qty: 1 0RF Rx Instructions: Semi-electric hospital bed with mattress and side rails (DME) Accu-Chek Garima Plus test strp Strip See Rx Instructions .ROUTE .MEDSUPPLY Qty: 100 3RF Rx Instructions: Check blood sugars once PRN azelastine 137 mcg (0.1 %) aerosol,spray 2 spray INTRANASAL DAILY PRN (Reason: ALLERGIES) Qty: 30 0RF (DME) FreeStyle Rafa 3 Plus Sensor Device See Rx Instructions .Route Qty: 2 11RF Rx Instructions: Change sensor every 15 days potassium chloride [Klor-Con M20] 20 mEq tablet,ER particles/crystals 20 meq PO AMHS 90 Days Qty: 180 3RF duloxetine [Cymbalta] 60 mg capsule,delayed release(DR/EC) 60 mg PO QAM Qty: 90 3RF fluticasone furoate-vilanterol [Breo Ellipta] 100-25 mcg/dose blister with device 1 inh inhalation DAILY Qty: 60 2RF Trulicity 1.5 mg/0.5 mL pen injector 1.5 mg subcut WK Qty: 2 3RF Rx Instructions: Inject 1.5 mg into the abdomen once weekly. levothyroxine [Levoxyl] 137 mcg tablet 137 mcg PO QAM Qty: 30 5RF Rx Instructions: sublingual (DME) pen needle, diabetic 32 gauge x 5/32" needle See Rx Instructions .Route Qty: 100 11RF Rx Instructions: use for injections 3x daily, change with each use carvedilol [Coreg] 6.25 mg tablet 6.25 mg PO BID Qty: 60 2RF Rx Instructions: must administer with a meal/food Eliquis 5 mg tablet 5 mg PO BID Qty: 180 3RF bumetanide 1 mg tablet 1 mg PO QAM Qty: 90 3RF acyclovir 400 mg tablet 400 mg PO BID (DME) blood-glucose meter [Accu-Chek Garima Plus Meter] [facility] [place] See Rx Instructions .ROUTE .MEDSUPPLY Rx Instructions: Used to check blood sugars once PRN dexamethasone 4 mg tablet 4 mg PO DIRECTED PRN (Reason: APPOINTMENTS) Rx Instructions: ONCE MONTHLY WITH INJECTIONS menthol-zinc oxide [Calmoseptine] 1 dose topical UD PRN (Reason: Cold Symptoms) amoxicillin 500 mg capsule 1,000 mg PO ONCE PRN (Reason: prior to dental work) Qty: 2 3RF digoxin 125 mcg (0.125 mg) tablet 125 mcg PO .MWF Qty: 90 3RF pantoprazole 40 mg tablet,delayed release (DR/EC) 40 mg PO DAILY Qty: 90 3RF PreserVision AREDS 4,296 mcg-226 mg-90 mg capsule 1 cap PO BID albuterol sulfate 90 mcg/actuation HFA aerosol inhaler 2 inh inhalation Q4H PRN (Reason: shortness of breath or wheezing) Qty: 8.5 0RF omega 9-rwf-msf-fish oil [Fish Oil] 1,000 mg (120 mg-180 mg) Capsule 1,000 mg PO AMHS magnesium oxide 400 mg magnesium Tablet 400 mg PO AMHS acetaminophen [Tylenol Arthritis Pain] 650 mg Tablet Extended Release 1,300 mg PO AMHS mirtazapine 7.5 mg tablet 7.5 mg PO HS ferrous sulfate 325 mg (65 mg iron) tablet 325 mg PO QAM PRN (Reason: Other) albuterol sulfate 2.5 mg /3 mL (0.083 %) Solution For Nebulization 2.5 mg INHALATION Q4H PRN (Reason: Wheezing) cholestyramine (with sugar) [Questran] 4 gram powder 1 ea PO BID PRN (Reason: Diarrhea) Rx Instructions: 4 gm doses ondansetron 4 mg Tablet,Disintegrating 4 mg PO Q6 PRN (Reason: chemo associated n/v) lenalidomide [Revlimid] 10 mg capsule 10 mg PO UD Rx Instructions: takes 3 weeks, off 1 week calcium carbonate-vitamin D3 600 mg-10 mcg (400 unit) tablet 1 tab PO BID prednisone 5 mg tablet 5 mg PO PM triamcinolone acetonide 0.1 % cream 1 applic topical BID PRN (Reason: otjer) Referrals Referrals: Jigna Jovel DO [Primary Care Provider] -
[2025-03-23 10:34] LABS: Hematocrit (blood only) 40.7 % (37.0-47.0); Hemoglobin 12.7 g/dl (12.0-16.0); Immature Granulocytes # (auto) 0.03 K/uL (0.01-0.20); Immature Granulocytes % (auto) 0.5 %; Mean Corpuscular Hemoglobin 32.3 pg (25.0-34.0); Mean Corpuscular Volume 103.6 fL (80.0-100.0); Platelet Count 274 K/uL (130-400); RDW Standard Deviation 70.4 fL (36.4-46.3); Red Blood Count 3.93 M/uL (4.20-5.40); White Blood Count 5.46 K/ul (4.8-10.8)
[2025-03-23 10:53] LABS: INR 1.1 (0.9-1.1); Prothrombin Time 11.4 Seconds (9.0-12.0)
--- NOTE | 2025-03-23 10:53 | XRay Report ---
XR chest 1V portable CLINICAL HISTORY: Dyspnea COMPARISON STUDY: 01/30/2025 FINDINGS: Stable pacemaker and left shoulder prosthesis. There is increased cardiomegaly and pulmonar y vascular congestion. There are small bilateral pleural effusions and adjacent lung base consolidati on. No pneumothorax. IMPRESSION: CHF with bilateral pleural effusion/lung base consolidation. ACT 112: Negative or not required by law. Electronically signed by: Antoni Zaragoza M.D. 03/23/2025 10:51 AM
[2025-03-23 11:05] LABS: Albumin Level 3.4 gm/dl (3.4-5.0); Anion Gap 7.0 (3-11); Bilirubin,Total 1.2 mg/dl (0.2-1.0); Calcium 9.0 mg/dl (8.6-10.3); Carbon Dioxide 26.0 mmol/L (21-32); Chloride 110.0 mmol/L (98-107); Magnesium 2.2 mg/dl (1.7-2.4); Potassium 5.0 mmol/L (3.5-5.1); Sodium 143.0 mmol/L (136-145)
[2025-03-23 11:11] LABS: Alanine Aminotransferase 79.0 U/L (7-52); Albumin Globulin Ratio 1.1 (0.9-2); Alkaline Phosphatase 260.0 U/L (34-104); Blood Urea Nitrogen 33.0 mg/dl (6-23); Creatinine Clr Calc Pharmacy 25.0 ml/min; Globulin 3.0 gm/dl (2.5-4.0); Glucose 151.0 mg/dl (70-99(Fasting)); Total Protein 6.4 gm/dl (6.0-8.3)
[2025-03-23 11:39] LABS: Chlamydia pneumoniae PCR Not Detected (NotDetected); Coronavirus 229E PCR Not Detected (NotDetected); Coronavirus CoV-2 (COVID19)PCR Not Detected (NotDetected); Coronavirus HKU1 PCR Not Detected (NotDetected); Coronavirus NL63 PCR Not Detected (NotDetected); Coronavirus OC43PCR Not Detected (NotDetected); Human Metapneumovirus PCR Not Detected (NotDetected); Parainfluenza Virus 1 PCR Not Detected (NotDetected); Parainfluenza Virus 2 PCR Not Detected (NotDetected); Parainfluenza Virus 3 PCR Not Detected (NotDetected); Parainfluenza Virus 4 PCR Not Detected (NotDetected); Respiratory Syncytial VirusPCR Not Detected (NotDetected); Rhinovirus/Enterovirus PCR Not Detected (NotDetected)
[2025-03-23 12:43] LABS: Appearance Urine Cloudy (Clear); Bacteria Urine Automated 1+ (None Seen); Cast Urine Automated 0-2 /lpf (0-2); Glucose Urine UA Negative (Negative); RBC Urine Automated 0-2 /hpf (0-2); WBC Urine Automated 0-5 /hpf (0-5)
[2025-03-23] MEDS: NITROGLYCERIN SL 0.4 MG/TAB TAB SL STA (12:56)
[2025-03-23] MEDS: BUMETANIDE 0.5 MG in SYRINGE 0 ML IV ONE ×2 (13:49→20:02)
[2025-03-23] MEDS ORDERED: ALBUT/IPRATROP 3MG/0.5MG NEB 3 ML VIAL NEB PRN (13:52)
--- NOTE | 2025-03-23 14:32 | History & Physical Report ---
Date of Service March 23, 2025 Assessment & Plan (1) Pulmonary edema: Plan: Barbara Vergara is a 79 yo woman PMH of asthma, non-ischemic cardiomyopathy; A-fib on eliquis, multiple myeloma, diabetes, hypertension, psoariatic arthritis, s/ AICD, hypothyroidism. transaminitis, she was in our hospital in summer for foot cellulitis, at baseline, she's on room air; on 03/23/2025, she's presented to our hospital with sudden onset shortness of breath, RR of 32-33, CXR concern for pulmonary edema and hypertensive emergency with SBP of 190/110, s/p bumex, nitro and cefepime, she will be admitted to ICU for hypertensive emergency with pulmonary edema. hypertensive emergency pulmonary edema CKD non-ischemic CHF, A-fib lasix allergy multiple myeloma diabetes asthma transaminitis hypertensive emergency with pulmonary edema nitrodrip. bumex IV BID empiric cefepime for 48 hours given her immunocompromise status acute pulmonary edema, IV bumex BID, monitor creatinine value non-ischemic CHF, a-fib, s/p AICD home med of bumex 1mg, coreg 6.25 digoin 125 mcg , eliquis 5 BID, digoxin 125 mcg (MWF) she's take aoxicillin 1000mg before dental procedure asthma, she's on breo ellipta 100-25 mcg/ blist with device she's on room air at baseline multiple myeloma prednisone 5mg, revlimid 10mg daily she's on acyclovir for prophylaxis she's on decadron 4mg monthly diabetes, she's on trulicity sub-Q mood disorder, cymbalta 60mg, remeron 7.5 qHS hypothyroidism, synthyroid 137 mcg GERd-protonix 40mg daily low magnesium, magnesium oxide 400mg tablet diarrhea, she' on PRN choledstyramine daily (2) Hypertensive emergency: History of Present Illness Chief Complaint: sudden onset shortness of breath at 3am pulmonary edema hypertensive emergency hx of lasix allergy Primary Care Provider: Jigna Jovel DO Barbara Vergara is a 79 yo woman with PMh of CKD stage 4, non-ischemic cardiomyopat hy; A-fib, multiple myeloma, asthma, cecal volvulus s/p ileocecectomy, HTN, type 2 diabetes, psoriatic arthritis, transaminitis. she is on room air at baseline, on 03/23/2025, she was having sudden onset shortness of breath, came to our ED with tachypnea with RR of 32; and found to has pulmonary edema, hypertensive emergency with SBP of 193/125, she's need bipap treatment our ED colleague started her on Bumex IV and nitro in addition, she receive IV steroid. she was started on cefepime 48 hours for empiric coverage. patient denied sick contact; denied chest pain, muscle achiness. no abdominal pain she's is on prednisone 5mg and revlimid 10mg capsule for her myeloma she does not has any children, she is full code Allergies Allergy/AdvReac Type Severity Reaction Status Date / Time codeine Allergy Severe Anaphylaxis Verified 03/20/25 14:23 blue dye Allergy Intermediate rash from Verified 03/20/25 14:23 "prep with blue dye" celecoxib [From Celebrex] Allergy Intermediate RASH Verified 03/20/25 14:23 cephalexin [From Keflex] Allergy Intermediate Rash Verified 03/20/25 14:23 hydrocodone Allergy Intermediate Rash Verified 03/20/25 14:23 Iodinated Contrast Media Allergy Intermediate RASH Verified 03/20/25 14:23 nickel Allergy Intermediate Rash Verified 03/20/25 14:23 oxycodone Allergy Intermediate Rash Verified 03/20/25 14:23 Sulfa (Sulfonamide Allergy Intermediate RASH TO Verified 03/20/25 14:23 Antibiotics) SULFA DRUGS tetracycline Allergy Intermediate RASH Verified 03/20/25 14:23 furosemide Allergy Unknown Verified 03/20/25 14:23 capsaicin AdvReac Intermediate CREATINE Verified 03/20/25 14:23 ELEVATION diclofenac AdvReac Intermediate CREATINE Verified 03/20/25 14:23 ELEVATION propylene glycol AdvReac Intermediate CREATINE Verified 03/20/25 14:23 ELEVATION Home Medications Medication Instructions Recorded Confirmed Type magnesium oxide 400 mg PO [facility] 07/26/18 03/23/25 History omega 8-xbe-pvg-fish oil 1,000 mg 1,000 mg PO AMHS 07/26/18 03/23/25 History (120 mg-180 mg) capsule (Fish Oil) blood-glucose meter (Accu-Chek 02/12/21 03/20/25 History Garima Plus Meter) acetaminophen 650 mg 1,300 mg PO AMHS 01/20/23 03/23/25 History tablet,extended release (Tylenol Arthritis Pain) Hospital Bed Homecare (Hospital #1 ea 03/03/23 03/20/25 Rx Bed) mirtazapine 7.5 mg tablet 7.5 mg PO HS 07/01/23 03/23/25 History blood sugar diagnostic (Accu-Chek #100 ea 07/16/23 03/20/25 Rx Garima Plus test strips) azelastine 137 mcg (0.1 %) nasal 2 spray intranasal DAILY PRN 09/30/23 03/23/25 Rx spray ALLERGIES #30 mL calcium 600 mg (as 1 tab PO BID 10/11/23 03/23/25 History carbonate)-vitamin D3 10 mcg (400 unit) tablet albuterol sulfate 2.5 mg/3 mL 2.5 mg inhalation Q4H PRN Wheezing 11/03/23 03/23/25 History (0.083 %) solution for nebulization cholestyramine (with sugar) 4 gram 1 ea PO BID PRN Diarrhea 11/03/23 03/23/25 History oral powder (Questran) ondansetron 4 mg disintegrating 4 mg PO Q6 PRN chemo associated n/v 11/03/23 03/23/25 History tablet menthol-zinc oxide [Calmoseptine] 1 dose topical UD PRN Cold Symptoms 12/04/23 03/23/25 History vitamins A,C,X-afct-tanvio 4,296 1 cap PO BID 02/11/24 03/23/25 History mcg-226 mg-90 mg capsule (PreserVision AREDS) dexamethasone 4 mg tablet 4 mg PO DIRECTED PRN 03/03/24 03/23/25 History APPOINTMENTS amoxicillin 500 mg capsule 1,000 mg (2 x 500 mg) PO ONCE PRN 03/15/24 03/23/25 Rx prior to dental work #2 caps FreeStyle Rafa 3 Plus Sensor #2 ea 03/21/24 03/20/25 Rx (blood-glucose sensor) potassium chloride 20 mEq 20 meq PO AMHS 90 days #180 tabs 05/27/24 03/23/25 Rx tablet,extended release(part/cryst) (Klor-Con M) lenalidomide 10 mg capsule 10 mg PO UD 05/30/24 03/23/25 History (Revlimid) duloxetine 60 mg capsule,delayed 60 mg PO QAM #90 caps 07/21/24 03/23/25 Rx release (Cymbalta) ferrous sulfate 325 mg (65 mg 325 mg PO QAM PRN Other 08/29/24 03/23/25 History iron) tablet Breo Ellipta 100 mcg-25 mcg/dose 1 inh inhalation DAILY #60 ea 09/22/24 03/23/25 Rx powder for inhalation (fluticasone furoate-vilanterol) acyclovir 400 mg tablet 400 mg PO BID 10/21/24 03/23/25 History pantoprazole 40 mg tablet,delayed 40 mg PO DAILY #90 tabs 10/21/24 03/23/25 Rx release dulaglutide 1.5 mg/0.5 mL 1.5 mg (0.5 mL) subcut WK #2 mL 11/18/24 03/23/25 Rx subcutaneous pen injector (Trulicity) Levoxyl 137 mcg tablet 137 mcg PO QAM #30 tabs 12/01/24 03/23/25 Rx (levothyroxine) pen needle, diabetic 32 gauge x #100 ea 12/01/24 03/20/25 Rx 5/32" carvedilol 6.25 mg tablet (Coreg) 6.25 mg PO BID #60 tabs 12/21/24 03/23/25 Rx apixaban 5 mg tablet (Eliquis) 5 mg PO BID #180 tabs 12/22/24 03/23/25 Rx bumetanide 1 mg tablet 1 mg PO QAM #90 tabs 12/28/24 03/23/25 Rx digoxin 125 mcg (0.125 mg) tablet 125 mcg PO .MWF Atrial 01/10/25 03/23/25 Rx fibrillation #90 tabs prednisone 5 mg tablet 5 mg PO PM 01/22/25 03/23/25 History triamcinolone acetonide 0.1 % 1 applic topical BID PRN otjer 01/22/25 03/23/25 History topical cream albuterol sulfate 90 mcg/actuation 2 inh inhalation Q4H PRN shortness 02/09/25 03/23/25 Rx aerosol inhaler of breath or wheezing #8.5 grams Past Med/Surg History Problem List (Updated 03/23/25 @ 14:23 by Bettye Yin DO) Hypertensive emergency Restrictive lung disease Lumbosacral radiculopathy Back pain at L4-L5 level Cellulitis of foot, left (Acute) Acute pain of left foot (Acute) Fusion of lumbar spine Sacroiliitis Iron deficiency Allergic asthma Dyslipidemia Oral lesion Adrenal incidentaloma Atrial flutter Multiple myeloma currently getting chemo On amiodarone therapy ICD (implantable cardioverter-defibrillator), biventricular, in situ Asthma Paroxysmal ventricular tachycardia Chronic anticoagulation (Acute) Psoriatic arthritis Lumbar canal stenosis GERD (gastroesophageal reflux disease) (Chronic) Hypothyroidism Spinal meningioma On c-spine- follows with [facility] [place] neurosurgery specialist (Dr. Ken)- under surveillance/stable/no indication for surgical intervention, last seen Summer 2022 Medical History Heart failure with improved ejection fraction (HFimpEF) Hypertension Chronic kidney insufficiency Diabetes type 2, controlled CKD (chronic kidney disease) stage 4, GFR 15-29 ml/min Hx of sepsis Atrial flutter Asthma Multiple myeloma Mixed hearing loss, bilateral Allergic rhinitis Pulmonary nodule Vitamin D deficiency Depression Recurrent pleural effusion Post laminectomy syndrome Hx of colonic polyps Hx of pulmonary edema Hx of non-ST elevation myocardial infarction (NSTEMI) (~01/2023) Cardiomyopathy Esophageal dysmotility Hiatal hernia nursing home current use of systemic steroids Obesity Schatzki's ring Peptic ulcer disease Irritable bowel syndrome Surgical History S/P right colectomy History of thoracentesis Hx of colonoscopy with polypectomy History of bone marrow biopsy (~04/2023) Hx of bilateral cataract extraction Presence of biventricular implantable cardioverter-defibrillator (ICD) History of laparoscopy (~06/2020) History of colectomy (~06/2020) History of total left hip arthroplasty (~12/2019) History of total hip arthroplasty (~2019) History of dilatation and curettage History of tooth extraction History of tonsillectomy and adenoidectomy History of cardiac cath History of arthroscopy Status post total replacement of left shoulder History of esophagogastroduodenoscopy (EGD) History of total abdominal hysterectomy and bilateral salpingo-oophorectomy History of arthroscopy of right shoulder (~09/2018) History of total knee arthroplasty History of foot surgery History of cholecystectomy History of lumbar fusion H/O thyroidectomy Family History Mother Arthritis Hypertension Father Lung cancer Hypertension Family/Other Family hx of colon cancer Unknown Allergies Breast cancer Hypertension Brother Cancer Heart disease Aunt Colorectal cancer Other No family history of adverse response to anesthesia No family history of bleeding disorder Denies family history of Ovarian cancer Prostate cancer Diabetes Hearing loss Myocardial infarction Stroke Asthma Social History Smoking Status: Former smoker Tobacco Type: Cigarettes Age Started Using Tobacco: 19; Age Quit Using Tobacco: 26; packs per day: 1; Second Hand Exposure: No; Do You Dip or Chew Tobacco: No; Hx Alcohol Use: No Hx Substance Use: No Preferred Language: Sami Communication Ability: Effective Visual Impairment: Limited Hearing Ability: Retort Unloader Required: No Beliefs That Will Affect Care: None marital status: / Current Living Situation: Alone Current Living Situation Comment: home alone (house) current occupational status: retired current occupation: Retired How many Children do You have: 0 Feels Safe at Home: Yes Childhood Exposure to Second-Hand Smoke: Yes Diet: low salt and regular Diet Comment: Pre-diabetic caffeine: Yes Dental Care, Regularly: Yes Physical Activity Frequency: Does not Exercise Physical Activity Frequency Comment: Hip problems Seatbelt Use: always Sunscreen Use: No Assistive Devices: Cane, Scooter/Electric Scooter, Walker and Wheelchair Review of Systems Review of Systems: Constitutional: No Weight Change, No Fever, No Chills, No Night Sweats, No Fatigue, No Malaise ENT/Mouth: runny nose Cardiovascular: No Chest Pain, no palpitation; + for AIcD pulmonary: shortness of breath; coughing; no wheezing; no sputum producton Gastrointestinal: No Nausea, No Vomiting, No Diarrhea, No Constipation, No Pain, No Heartburn, No Anorexia, No Dysphagia, No Hematochezia Musculoskeletal: No Arthralgias, No Myalgias, No Joint Swelling, No Joint Stiffness, Skin: No Skin Lesions, No Pruritis, No Hair Changes, No Breast/Skin Changes, No Nipple Discharge Heme/Lymph: + for myeloma Endocrine: No Polyuria, No Polydipsia, No Temperature Intolerance Physical Exam Physical Exam: VITALS: Reviewed. WEIGHT/BMI reviewed. GEN: moderate distress; on bipap -Head: NC/AT; -Mouth and throat: MMM. Normal gums, muc rachelle, palate,. Good dentition. NECK: + for JVD CV: RRR, no m/r/g. LUNGS: no wheezing; decrease breath sound; ABD: Soft, NT/ND, NBS, no masses or organomegaly. : N/A MSK: No deformities, Normal gait. EXT: No clubbing, cyanosis, or edema. NEURO: AAOx3 Results & Data Results & Data Vital Signs (Past 12 Hours) Vital Signs Temp Pulse Pulse Resp BP BP Pulse Ox 03/23/25 13:36 70 32 H 177/108 H 98 03/23/25 12:55 70 30 H 94 03/23/25 12:00 72 26 H 196/123 H 97 03/23/25 09:59 77 03/23/25 09:54 30 H 96 03/23/25 09:35 36.9 C 86 33 H 183/124 H 87 L 03/23/25 09:34 72 30 H 193/126 H 96 03/23/25 09:34 96 O2 Del Method O2 Flow Rate FiO2 03/23/25 13:36 BiPAP 03/23/25 12:55 35 03/23/25 12:00 Nasal Cannula 4 03/23/25 09:59 03/23/25 09:54 Nasal Cannula 5 03/23/25 09:35 Room Air 03/23/25 09:34 Nasal Cannula 5 03/23/25 09:34 Nasal Cannula 5 Laboratory Results Laboratory Results - last 72 hr 03/23/25 03/23/25 03/23/25 09:36 10:03 11:33 WBC 5.46 RBC 3.93 L Hgb 12.7 Hct 40.7 MCV 103.6 H MCH 32.3 MCHC 31.2 L RDW Std Deviation 70.4 H RDW Coeff of Amrita 18.9 H Plt Count 274 MPV 10.8 Immature Gran % (Auto) 0.5 Neut % (Auto) 51.9 Lymph % (Auto) 28.6 [place] % (Auto) 15.0 Eos % (Auto) 1.1 Baso % (Auto) 2.9 Neut # (Auto) 2.83 Lymph # (Auto) 1.56 [place] # (Auto) 0.82 H Eos # (Auto) 0.06 Baso # (Auto) 0.16 Immature Gran # (Auto) 0.03 PT 11.4 INR 1.1 VBG pH 7.31 L VBG pCO2 55 H VBG pO2 < 20 VBG HCO3 28 VBG O2 Saturation < 60.0 VBG Base Excess 0.4 Sodium 143 Potassium 5.0 Chloride 110 H Carbon Dioxide 26 Anion Gap 7 BUN 33 H Creatinine 2.40 H Est Cr Clr Drug Dosing 25.0 eGFR 20.17 BUN/Creatinine Ratio 13.8 Glucose 151 H Calcium 9.0 Magnesium 2.2 Total Bilirubin 1.2 H AST 79 H ALT 79 H Alkaline Phosphatase 260 H Troponin I High Sens 49.0 H 60.5 H* D B-Natriuretic Peptide 2140 H Total Protein 6.4 Albumin 3.4 Globulin 3.0 Albumin/Globulin Ratio 1.1 Urine Color Urine Appearance Urine pH Ur Specific [place] Urine Protein Urine Glucose (UA) Urine Ketones Urine Blood Urine Nitrite Urine Bilirubin Urine Urobilinogen Ur Leukocyte Esterase Urine WBC (Auto) Urine RBC (Auto) U Hyaline Cast (Auto) U Epithel Cells (Auto) Urine Bacteria (Auto) Urine Comment Adenovirus (PCR) Not Detected B. pertussis DNA (PCR) Not Detected B.parapertussis DNA PCR Not Detected C. pneumoniae DNA (PCR) Not Detected Coronavirus OC43 (PCR) Not Detected Coronavirus HKU1 (PCR) Not Detected Coronavirus 229E (PCR) Not Detected SARS-CoV-2 (PCR) Not Detected Coronavirus NL63 (PCR) Not Detected Human Metapneumovir PCR Not Detected Influenza Type A (PCR) Not Detected Influenza Type B (PCR) Not Detected M. pneumoniae (PCR) Not Detected Parainfluenza 1 (PCR) Not Detected Parainfluenza 2 (PCR) Not Detected Parainfluenza 3 (PCR) Not Detected Parainfluenza 4 (PCR) Not Detected RSV (PCR) Not Detected Entero/Rhino (PCR) Not Detected 03/23/25 12:17 WBC RBC Hgb Hct MCV MCH MCHC RDW Std Deviation RDW Coeff of Amrita Plt Count MPV Immature Gran % (Auto) Neut % (Auto) Lymph % (Auto) [place] % (Auto) Eos % (Auto) Baso % (Auto) Neut # (Auto) Lymph # (Auto) [place] # (Auto) Eos # (Auto) Baso # (Auto) Immature Gran # (Auto) PT INR VBG pH VBG pCO2 VBG pO2 VBG HCO3 VBG O2 Saturation VBG Base Excess Sodium Potassium Chloride Carbon Dioxide Anion Gap BUN Creatinine Est Cr Clr Drug Dosing eGFR BUN/Creatinine Ratio Glucose Calcium Magnesium Total Bilirubin AST ALT Alkaline Phosphatase Troponin I High Sens B-Natriuretic Peptide Total Protein Albumin Globulin Albumin/Globulin Ratio Urine Color Dark Yellow Urine Appearance Cloudy A Urine pH 6.0 Ur Specific [place] 1.026 Urine Protein 2+ H Urine Glucose (UA) Negative Urine Ketones Trace H Urine Blood Negative Urine Nitrite Negative Urine Bilirubin Negative Urine Urobilinogen Negative Ur Leukocyte Esterase Trace H Urine WBC (Auto) 0-5 Urine RBC (Auto) 0-2 U Hyaline Cast (Auto) 0-2 U Epithel Cells (Auto) 6-10 H Urine Bacteria (Auto) 1+ H Urine Comment Adenovirus (PCR) B. pertussis DNA (PCR) B.parapertussis DNA PCR C. pneumoniae DNA (PCR) Coronavirus OC43 (PCR) Coronavirus HKU1 (PCR) Coronavirus 229E (PCR) SARS-CoV-2 (PCR) Coronavirus NL63 (PCR) Human Metapneumovir PCR Influenza Type A (PCR) Influenza Type B (PCR) M. pneumoniae (PCR) Parainfluenza 1 (PCR) Parainfluenza 2 (PCR) Parainfluenza 3 (PCR) Parainfluenza 4 (PCR) RSV (PCR) Entero/Rhino (PCR) Medications Administered Current Inpatient Medications Albuterol (Albut/Ipratrop 3mg/0.5mg Neb 3 Ml Vial) 3 ml NEB Q6R PRN; Protocol PRN Reason: Shortness Of Breath Stop: 04/22/25 13:51 Budesonide (Budesonide 0.5 Mg/2 Ml Vial (Pulmicort)) 0.5 mg NEB BIDR CAROL Stop: 04/22/25 18:59 Hydralazine HCl (Hydralazine Hcl 20 Mg/Ml Vial) 50 mg IV Q8 CAROL Stop: 04/22/25 13:59 Bumetanide 1 mg/ Syringe 4 mls @ 4 mls/min IV BID@0900,1700 CAROL Stop: 03/27/25 20:59 Bumetanide 0.5 mg/ Syringe 2 mls @ 4 mls/min IV ONE ONE Stop: 03/23/25 13:33 Cefepime HCl (Maxipime 2000mg) 1,000 mg in 10 mls @ 5 mls/min IV Q12H CAROL; Protocol Stop: 03/26/25 02:29 Cefepime HCl (Maxipime 2000mg) 2,000 mg in 20 mls @ 5 mls/min IV NOW STA; Protocol Stop: 03/23/25 14:23 Miscellaneous (I[facility] Protocol For Hyperglycemia) 1 each N/A ACHS CAROL Stop: 03/25/25 16:29 Code Status & VTE Plan Code Status full code VTE Prophylaxis Plan VTE Prophylaxis will be ordered: Yes PG Care Time/CCT Total # of Minutes Spent Total Time Spent with Patient: Total time spent is greater than 50% in coordination of care (as documented) at patient's floor/unit and/or counseling patient: Coding Level of Care Code 00073 INT INP/OBS CARE 2/55MIN Diagnoses Pulmonary edema J81.1 Hypertensive emergency I16.1 Time Spent (min) 55
[2025-03-23 15:31] LABS: Thyroid Stimulating Hormone 12.592 uIu/ml (0.300-4.500)
--- NOTE | 2025-03-23 15:48 | Electrocardiogram Report ---
Test Reason : Blood Pressure : */* mmHG Vent. Rate : 71 BPM Atrial Rate : 71 BPM P-R Int : 166 ms QRS Dur : 130 ms QT Int : 426 ms P-R-T Axes : * -1 131 degrees QTcB Int : 462 ms AV dual-paced rhythm Abnormal ECG When compared with ECG of 31-May-2024 11:45, Vent. rate has decreased by 2 bpm Confirmed by Lukasz Schilling ([id number]) on 03/23/2025 3:48:08 PM Referred By: Confirmed By: Lukasz Schilling
[2025-03-23] MEDS ORDERED: ONDANSETRON 4 MG OD TAB PO PRN (16:18)
[2025-03-23] MEDS ORDERED: ALBUTEROL HFA 8 GM INHALER INH PRN (16:18)
[2025-03-23] MEDS ORDERED: ALBUTEROL 0.083% NEBU SOLN 3 ML VIAL INH PRN (16:18)
[2025-03-23] MEDS ORDERED: MENTHOL ZINC OXIDE TOP PRN (16:18)
[2025-03-23] MEDS ORDERED: STAT IV Infusion **Titration per Protocol STA (16:40)
[2025-03-23] MEDS ORDERED: CHOLESTYRAMINE LIGHT 4 GM PKT PO PRN (16:50)
[2025-03-23] MEDS: CEFEPIME 2000MG 2,000 MG/20 ML SYR IV STA (17:47)
--- NOTE | 2025-03-23 18:51 | Critical Care Consultation ---
Date of Consultation March 23, 2025 Assessment & Plan (1) Acute hypoxemic respiratory failure: * Continue BiPAP and Oxygen supplementation and taper as tolerated (2) Hypertensive emergency: * Nicardipine drip (3) Pulmonary edema: * Continue Bumex (4) Elevated brain natriuretic peptide (BNP) level: * Most likely secondary to left-ventricular strain * Will monitor (5) Elevated troponin: * Suspected on basis type 2 NSTEMI * Already coming down (6) Elevated TSH: * Unclear etiology * Will consider work-up when patient stable (7) Elevated prolactin level: * Unclear etiology * No other stigmata of infection * Will monitor for any signs of infection Plan I have personally spent 55 minutes of critical care time in the direct management of this patient. This is a life/limb threatening event. This includes time spent evaluating the patient, direct bedside care, chart review, placing orders, interpreting diagnostic studies, communicating with consultants, attending providers, patient, and family members, as well as required patient management activities. This time is exclusive of all separately-billable procedures and teaching time, and separate from and in addition to any other critical care service time. History of Present Illness Reason for Consultation: Hypertensive emergency Requesting Physician: Dr. Yin Attending Physician: Bettye Yin, History of Present Illness The patient is a very pleasant 79-year-old woman who presented to the ED with sudden onset shortness of breath that awakened her from sleep at 3 AM. She reported that she was unable to catch her breath, attempted to use her inhaler twice with minimal relief, and ultimately called EMS due to persistent dyspnea. On EMS arrival, her oxygen saturation was 87% on room air. She denied chest pain, fevers, chills, abdominal pain, nausea, vomiting, or recent sick contacts. She also denied any history of DVT or PE and does not use supplemental oxygen at home. Upon arrival to the ED, she was noted to be hypoxic, tachypneic, and hypertensive, with a respiratory rate in the 30s and a blood pressure of 193/125. She was placed on supplemental oxygen via nasal cannula, which improved her oxygenation, but she remained tachypneic and uncomfortable. She was subsequently started on BiPAP. She received IV Bumex and sublingual nitroglycerin for acute pulmonary edema and hypertensive emergency, as well as empiric cefepime due to her immunocompromised status from multiple myeloma and recent chemotherapy. She was also given IV steroids as pretreatment for a planned CT PE scan, which was later canceled due to her elevated creatinine. Urinalysis showed evidence of infection, and a viral respiratory panel was negative. EKG demonstrated a paced rhythm at 71 bpm. Chest X-ray showed bilateral pleural effusions consistent with pulmonary edema. She has a known allergy to lasix. Her past medical history included CKD stage 4, non-ischemic CHF, A-fib (s/p AICD), multiple myeloma on chemotherapy, asthma, DM-2, HTN, HLD, GERD, hypothyroidism, psoriatic arthritis, transaminitis, mood disorder, and a history of cecal volvulus s/p ileocecectomy. The patient complained of some chest tightness after taking her off of the BiPAP, but the tightness seemed to improve after resuming BiPAP. Allergies Allergy/AdvReac Type Severity Reaction Status Date / Time codeine Allergy Severe Anaphylaxis Verified 03/20/25 14:23 blue dye Allergy Intermediate rash from Verified 03/20/25 14:23 "prep with blue dye" celecoxib [From Celebrex] Allergy Intermediate RASH Verified 03/20/25 14:23 cephalexin [From Keflex] Allergy Intermediate Rash Verified 03/20/25 14:23 hydrocodone Allergy Intermediate Rash Verified 03/20/25 14:23 Iodinated Contrast Media Allergy Intermediate RASH Verified 03/20/25 14:23 nickel Allergy Intermediate Rash Verified 03/20/25 14:23 oxycodone Allergy Intermediate Rash Verified 03/20/25 14:23 Sulfa (Sulfonamide Allergy Intermediate RASH TO Verified 03/20/25 14:23 Antibiotics) SULFA DRUGS tetracycline Allergy Intermediate RASH Verified 03/20/25 14:23 furosemide Allergy Unknown Verified 03/20/25 14:23 capsaicin AdvReac Intermediate CREATINE Verified 03/20/25 14:23 ELEVATION diclofenac AdvReac Intermediate CREATINE Verified 03/20/25 14:23 ELEVATION propylene glycol AdvReac Intermediate CREATINE Verified 03/20/25 14:23 ELEVATION Home Medications Medication Instructions Recorded Confirmed Type magnesium oxide 400 mg PO [facility] 07/26/18 03/23/25 History omega 3-hsf-ipl-fish oil 1,000 mg 1,000 mg PO [facility] 07/26/18 03/23/25 History (120 mg-180 mg) capsule (Fish Oil) blood-glucose meter (Accu-Chek 02/12/21 03/20/25 History Garima Plus Meter) acetaminophen 650 mg 1,300 mg PO [facility] 01/20/23 03/23/25 History tablet,extended release (Tylenol Arthritis Pain) Hospital Bed Homecare (Hospital [facility] ea 03/03/23 03/20/25 Rx Bed) mirtazapine 7.5 mg tablet 7.5 mg PO HS 07/01/23 03/23/25 History blood sugar diagnostic (Accu-Chek #100 ea 07/16/23 03/20/25 Rx Garima Plus test strips) azelastine 137 mcg (0.1 %) nasal 2 spray intranasal DAILY PRN 09/30/23 03/23/25 Rx spray ALLERGIES #30 mL calcium 600 mg (as 1 tab PO BID 10/11/23 03/23/25 History carbonate)-vitamin D3 10 mcg (400 unit) tablet albuterol sulfate 2.5 mg/3 mL 2.5 mg inhalation Q4H PRN Wheezing 11/03/23 03/23/25 History (0.083 %) solution for nebulization cholestyramine (with sugar) 4 gram 1 ea PO BID PRN Diarrhea 11/03/23 03/23/25 History oral powder (Questran) ondansetron 4 mg disintegrating 4 mg PO Q6 PRN chemo associated n/v 11/03/23 03/23/25 History tablet menthol-zinc oxide [Calmoseptine] 1 dose topical UD PRN Cold Symptoms 12/04/23 03/23/25 History vitamins A,C,Y-fhqq-lbgvuv 4,296 1 cap PO BID 02/11/24 03/23/25 History mcg-226 mg-90 mg capsule (PreserVision AREDS) dexamethasone 4 mg tablet 4 mg PO DIRECTED PRN 03/03/24 03/23/25 History APPOINTMENTS amoxicillin 500 mg capsule 1,000 mg (2 x 500 mg) PO ONCE PRN 03/15/24 03/23/25 Rx prior to dental work #2 caps FreeStyle Rafa 3 Plus Sensor #2 ea 03/21/24 03/20/25 Rx (blood-glucose sensor) potassium chloride 20 mEq 20 meq PO [facility] 90 days #180 tabs 05/27/24 03/23/25 Rx tablet,extended release(part/cryst) (Klor-Con M) lenalidomide 10 mg capsule 10 mg PO UD 05/30/24 03/23/25 History (Revlimid) duloxetine 60 mg capsule,delayed 60 mg PO QAM #90 caps 07/21/24 03/23/25 Rx release (Cymbalta) ferrous sulfate 325 mg (65 mg 325 mg PO QAM PRN Other 08/29/24 03/23/25 History iron) tablet Breo Ellipta 100 mcg-25 mcg/dose 1 inh inhalation DAILY #60 ea 09/22/24 03/23/25 Rx powder for inhalation (fluticasone furoate-vilanterol) acyclovir 400 mg tablet 400 mg PO BID 10/21/24 03/23/25 History pantoprazole 40 mg tablet,delayed 40 mg PO DAILY #90 tabs 10/21/24 03/23/25 Rx release dulaglutide 1.5 mg/0.5 mL 1.5 mg (0.5 mL) subcut WK #2 mL 11/18/24 03/23/25 Rx subcutaneous pen injector (Trulicity) Levoxyl 137 mcg tablet 137 mcg PO QAM #30 tabs 12/01/24 03/23/25 Rx (levothyroxine) pen needle, diabetic 32 gauge x #100 ea 12/01/24 03/20/25 Rx 5/32" carvedilol 6.25 mg tablet (Coreg) 6.25 mg PO BID #60 tabs 12/21/24 03/23/25 Rx apixaban 5 mg tablet (Eliquis) 5 mg PO BID #180 tabs 12/22/24 03/23/25 Rx bumetanide 1 mg tablet 1 mg PO QAM #90 tabs 12/28/24 03/23/25 Rx digoxin 125 mcg (0.125 mg) tablet 125 mcg PO .MWF Atrial 01/10/25 03/23/25 Rx fibrillation #90 tabs prednisone 5 mg tablet 5 mg PO PM 01/22/25 03/23/25 History triamcinolone acetonide 0.1 % 1 applic topical BID PRN otjer 01/22/25 03/23/25 History topical cream albuterol sulfate 90 mcg/actuation 2 inh inhalation Q4H PRN shortness 02/09/25 03/23/25 Rx aerosol inhaler of breath or wheezing #8.5 grams Patient History Medical History Heart failure with improved ejection fraction (HFimpEF) Hypertension Chronic kidney insufficiency Diabetes type 2, controlled CKD (chronic kidney disease) stage 4, GFR 15-29 ml/min baseline creatinine 2.0-2.2 range; nephrology (Dr. Stevenson) monitoring Hx of sepsis September 2023 > [facility] [place] resolved now per pt > was MRSA infection Atrial flutter controlled per pt Asthma well controlled per pt Multiple myeloma receiving chemo at present > monthly Mixed hearing loss, bilateral Allergic rhinitis Pulmonary nodule Vitamin D deficiency Depression Recurrent pleural effusion none at present Post laminectomy syndrome Hx of colonic polyps Hx of pulmonary edema Hx of non-ST elevation myocardial infarction (NSTEMI) (~01/2023) post pacer placement, then went back for pacer/defib placement Cardiomyopathy Esophageal dysmotility 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 for psoriatic arthritis Obesity Schatzki's ring Peptic ulcer disease Irritable bowel syndrome Surgical History S/P right colectomy History of thoracentesis x3 Hx of colonoscopy with polypectomy History of bone marrow biopsy (~04/2023) Hx of bilateral cataract extraction Presence of biventricular implantable cardioverter-defibrillator (ICD) Medtronic > placed Mar 2023 History of laparoscopy (~06/2020) exploratory after colectomy [place] [facility] [place] of colectomy (~06/2020) @ [facility] [place] History of total left hip arthroplasty (~12/2019) History of total hip arthroplasty (~2019) x2 RIGHT 05/27/19. Complicated by post-op seroma requiring multiple needle aspirations. LEFT HIP 01/10/20 History of dilatation and curettage History of tooth extraction History of tonsillectomy and adenoidectomy History of cardiac cath X2; firts cath ~2008 (NO STENTS),symptoms of heartburn, [facility] second cath at [facility] 02/14 after epidsode of V-Tach, no stents, sees Dr. Granados History of arthroscopy RT/LEFT KNEE Status post total replacement of left shoulder History of esophagogastroduodenoscopy (EGD) History of total abdominal hysterectomy and bilateral salpingo-oophorectomy History of arthroscopy of right shoulder (~09/2018) History of total knee arthroplasty RIGHT History of foot surgery RT FOOT FUSION History of cholecystectomy History of lumbar fusion H/O thyroidectomy Family History Mother Arthritis Hypertension Father Lung cancer Hypertension Family/Other Family hx of colon cancer Unknown Allergies Breast cancer Hypertension Brother Cancer Heart disease Aunt Colorectal cancer Other No family history of adverse response to anesthesia No family history of bleeding disorder Denies family history of Ovarian cancer Prostate cancer Diabetes Hearing loss Myocardial infarction Stroke Asthma Social History Smoking Status: Former smoker Tobacco Type: Cigarettes Age Started Using Tobacco: 19; Age Quit Using Tobacco: 26; packs per day: 1; Second Hand Exposure: No; Do You Dip or Chew Tobacco: No; Hx Alcohol Use: No Hx Substance Use: No Preferred Language: Albanian Communication Ability: Effective Visual Impairment: Limited Hearing Ability: Ribbon Cleaner Required: No Beliefs That Will Affect Care: None marital status: / Current Living Situation: Alone Current Living Situation Comment: home alone (house) current occupational status: retired current occupation: Retired How many Children do You have: 0 Feels Safe at Home: Yes Childhood Exposure to Second-Hand Smoke: Yes Diet: low salt and regular Diet Comment: Pre-diabetic caffeine: Yes Dental Care, Regularly: Yes Physical Activity Frequency: Does not Exercise Physical Activity Frequency Comment: Hip problems Seatbelt Use: always Sunscreen Use: No Assistive Devices: Cane, Scooter/Electric Scooter, Walker and Wheelchair Review of Systems Review of Systems: All systems reviewed & are unremarkable except as noted in HPI & below Physical Exam Physical Exam: General: Anxious, but in no acute distress while on BiPAP. Skin: Warm and dry to touch. Noobvious lesions. Eyes: Anicteric.Noconjunctival hyperemia or exudates.No periorbital edema. ENT: Could not examine at this time. Respiratory: Decreased breath sounds at the bases, scattered inspiratory crackles. No use of accessory muscles and no prolonged exhalation. Cardiac: Distant sounds, regular rhythm, no murmurs, no gallops, no rubs. GI: Soft, nontender. Extremities No cyanosis,trace edema. Neuro: No gross motor deficits. Seems appropriate. Results & Data Results & Data Vital Signs (Past 12 Hours) Vital Signs Temp Pulse Pulse Resp BP BP Pulse Ox 03/23/25 16:45 72 34 H 99 03/23/25 15:30 70 29 H 03/23/25 15:30 194/122 H 03/23/25 15:30 194/122 H 03/23/25 15:30 194/122 H 03/23/25 15:21 70 29 H 100 03/23/25 15:12 70 28 H 100 03/23/25 15:00 184/113 H 03/23/25 15:00 184/113 H 03/23/25 14:54 70 28 H 100 03/23/25 14:45 70 25 H 100 03/23/25 14:30 70 28 H 100 03/23/25 14:30 190/115 H 03/23/25 14:30 190/115 H 03/23/25 14:27 70 28 H 100 03/23/25 14:21 71 03/23/25 14:15 73 31 H 99 03/23/25 14:00 79 47 H 100 03/23/25 14:00 70 24 177/108 H 100 03/23/25 13:53 70 100 03/23/25 13:45 70 29 H 100 03/23/25 13:39 70 28 H 100 03/23/25 13:36 70 32 H 177/108 H 98 03/23/25 13:30 177/108 H 03/23/25 13:30 177/108 H 03/23/25 13:24 71 29 H 99 03/23/25 13:20 75 24 98 03/23/25 13:11 70 30 H 98 03/23/25 13:02 70 31 H 100 03/23/25 13:00 182/114 H 03/23/25 13:00 182/114 H 03/23/25 12:56 73 31 H 99 03/23/25 12:55 70 30 H 94 03/23/25 12:32 71 36 H 98 03/23/25 12:30 196/123 H 03/23/25 12:30 196/123 H 03/23/25 12:29 73 32 H 96 03/23/25 12:26 71 33 H 92 03/23/25 12:02 73 33 H 95 03/23/25 12:01 185/112 H 10/30/25 12:01 185/112 H 03/23/25 12:01 185/112 H 03/23/25 12:01 185/112 H 03/23/25 12:00 72 26 H 196/123 H 97 03/23/25 11:56 71 31 H 96 03/23/25 11:53 75 25 H 96 03/23/25 11:47 69 30 H 96 03/23/25 11:32 75 35 H 95 03/23/25 11:30 184/115 H 03/23/25 11:30 184/115 H 03/23/25 11:23 74 17 03/23/25 11:11 70 31 H 100 03/23/25 11:00 171/113 H 03/23/25 10:56 71 21 100 03/23/25 10:47 71 30 H 100 03/23/25 10:32 72 29 H 100 03/23/25 10:30 173/110 H 03/23/25 09:59 77 03/23/25 09:54 30 H 96 03/23/25 09:35 36.9 C 86 33 H 183/124 H 87 L 03/23/25 09:34 72 30 H 193/126 H 96 03/23/25 09:34 96 O2 Del Method O2 Flow Rate FiO2 03/23/25 16:45 30 03/23/25 15:30 03/23/25 15:30 03/23/25 15:30 03/23/25 15:30 03/23/25 15:21 03/23/25 15:12 03/23/25 15:00 03/23/25 15:00 03/23/25 14:54 03/23/25 14:45 03/23/25 14:30 03/23/25 14:30 03/23/25 14:30 03/23/25 14:27 03/23/25 14:21 03/23/25 14:15 03/23/25 14:00 03/23/25 14:00 BiPAP 03/23/25 13:53 BiPAP 03/23/25 13:45 03/23/25 13:39 03/23/25 13:36 BiPAP 03/23/25 13:30 03/23/25 13:30 03/23/25 13:24 03/23/25 13:20 03/23/25 13:11 03/23/25 13:02 03/23/25 13:00 03/23/25 13:00 03/23/25 12:56 03/23/25 12:55 35 03/23/25 12:32 03/23/25 12:30 03/23/25 12:30 03/23/25 12:29 03/23/25 12:26 03/23/25 12:02 03/23/25 12:01 03/23/25 12:01 03/23/25 12:01 03/23/25 12:01 03/23/25 12:00 Nasal Cannula 4 03/23/25 11:56 03/23/25 11:53 03/23/25 11:47 03/23/25 11:32 03/23/25 11:30 03/23/25 11:30 03/23/25 11:23 03/23/25 11:11 03/23/25 11:00 03/23/25 10:56 03/23/25 10:47 03/23/25 10:32 03/23/25 10:30 03/23/25 09:59 03/23/25 09:54 Nasal Cannula 5 03/23/25 09:35 Room Air 03/23/25 09:34 Nasal Cannula 5 03/23/25 09:34 Nasal Cannula 5 Laboratory Results 03/23/25 03/23/25 03/23/25 16:35 14:36 12:17 WBC RBC Hgb Hct MCV MCH MCHC RDW Std Deviation RDW Coeff of Amrita Plt Count MPV Immature Gran % (Auto) Neut % (Auto) Lymph % (Auto) [place] % (Auto) Eos % (Auto) Baso % (Auto) Neut # (Auto) Lymph # (Auto) [place] # (Auto) Eos # (Auto) Baso # (Auto) Immature Gran # (Auto) PT INR VBG pH VBG pCO2 VBG pO2 VBG HCO3 VBG O2 Saturation VBG Base Excess Sodium Potassium Chloride Carbon Dioxide Anion Gap BUN Creatinine Est Cr Clr Drug Dosing eGFR BUN/Creatinine Ratio Glucose Calcium Magnesium Total Bilirubin AST ALT Alkaline Phosphatase Troponin I High Sens 66.5 H* 66.0 H* B-Natriuretic Peptide Total Protein Albumin Globulin Albumin/Globulin Ratio Procalcitonin 0.53 H TSH 12.592 H Urine Color Dark Yellow Urine Appearance Cloudy A Urine pH 6.0 Ur Specific Presho 1.026 Urine Protein 2+ H Urine Glucose (UA) Negative Urine Ketones Trace H Urine Blood Negative Urine Nitrite Negative Urine Bilirubin Negative Urine Urobilinogen Negative Ur Leukocyte Esterase Trace H Urine WBC (Auto) 0-5 Urine RBC (Auto) 0-2 U Hyaline Cast (Auto) 0-2 U Epithel Cells (Auto) 6-10 H Urine Bacteria (Auto) 1+ H Urine Comment Adenovirus (PCR) B. pertussis DNA (PCR) B.parapertussis DNA PCR C. pneumoniae DNA (PCR) Coronavirus OC43 (PCR) Coronavirus HKU1 (PCR) Coronavirus 229E (PCR) SARS-CoV-2 (PCR) Coronavirus NL63 (PCR) Human Metapneumovir PCR Influenza Type A (PCR) Influenza Type B (PCR) M. pneumoniae (PCR) Parainfluenza 1 (PCR) Parainfluenza 2 (PCR) Parainfluenza 3 (PCR) Parainfluenza 4 (PCR) RSV (PCR) Entero/Rhino (PCR) 03/23/25 03/23/25 03/23/25 11:33 10:03 09:36 WBC 5.46 RBC 3.93 L Hgb 12.7 Hct 40.7 MCV 103.6 H MCH 32.3 MCHC 31.2 L RDW Std Deviation 70.4 H RDW Coeff of Amrita 18.9 H Plt Count 274 MPV 10.8 Immature Gran % (Auto) 0.5 Neut % (Auto) 51.9 Lymph % (Auto) 28.6 [place] % (Auto) 15.0 Eos % (Auto) 1.1 Baso % (Auto) 2.9 Neut # (Auto) 2.83 Lymph # (Auto) 1.56 [place] # (Auto) 0.82 H Eos # (Auto) 0.06 Baso # (Auto) 0.16 Immature Gran # (Auto) 0.03 PT 11.4 INR 1.1 VBG pH 7.31 L VBG pCO2 55 H VBG pO2 < 20 VBG HCO3 28 VBG O2 Saturation < 60.0 VBG Base Excess 0.4 Sodium 143 Potassium 5.0 Chloride 110 H Carbon Dioxide 26 Anion Gap 7 BUN 33 H Creatinine 2.40 H Est Cr Clr Drug Dosing 25.0 eGFR 20.17 BUN/Creatinine Ratio 13.8 Glucose 151 H Calcium 9.0 Magnesium 2.2 Total Bilirubin 1.2 H AST 79 H ALT 79 H Alkaline Phosphatase 260 H Troponin I High Sens 60.5 H* D 49.0 H B-Natriuretic Peptide 2140 H Total Protein 6.4 Albumin 3.4 Globulin 3.0 Albumin/Globulin Ratio 1.1 Procalcitonin TSH Urine Color Urine Appearance Urine pH Ur Specific Presho Urine Protein Urine Glucose (UA) Urine Ketones Urine Blood Urine Nitrite Urine Bilirubin Urine Urobilinogen Ur Leukocyte Esterase Urine WBC (Auto) Urine RBC (Auto) U Hyaline Cast (Auto) U Epithel Cells (Auto) Urine Bacteria (Auto) Urine Comment Adenovirus (PCR) Not Detected B. pertussis DNA (PCR) Not Detected B.parapertussis DNA PCR Not Detected C. pneumoniae DNA (PCR) Not Detected Coronavirus OC43 (PCR) Not Detected Coronavirus HKU1 (PCR) Not Detected Coronavirus 229E (PCR) Not Detected SARS-CoV-2 (PCR) Not Detected Coronavirus NL63 (PCR) Not Detected Human Metapneumovir PCR Not Detected Influenza Type A (PCR) Not Detected Influenza Type B (PCR) Not Detected M. pneumoniae (PCR) Not Detected Parainfluenza 1 (PCR) Not Detected Parainfluenza 2 (PCR) Not Detected Parainfluenza 3 (PCR) Not Detected Parainfluenza 4 (PCR) Not Detected RSV (PCR) Not Detected Entero/Rhino (PCR) Not Detected Diagnostic Findings Chest X-Ray 03/23/25 09:45 XR chest 1V portable CLINICAL HISTORY: Dyspnea COMPARISON STUDY: 01/30/2025 FINDINGS: Stable pacemaker and left shoulder prosthesis. There is increased cardiomegaly and pulmonary vascular congestion. There are small bilateral pleural effusions and adjacent lung base consolidation. No pneumothorax. IMPRESSION: CHF with bilateral pleural effusion/lung base consolidation. ACT 112: Negative or not required by law. Electronically signed by: Antoni Zaragoza M.D. 03/23/2025 10:51 AM Medications Administered Home Medications Medication Instructions Recorded Confirmed Last Taken magnesium oxide 400 mg PO [facility] 07/26/18 03/23/25 01/22/25 omega 5-urt-yud-fish oil 1,000 mg 1,000 mg PO [facility] 07/26/18 03/23/25 01/22/25 (120 mg-180 mg) capsule (Fish Oil) blood-glucose meter (Accu-Chek 02/12/21 03/20/25 Unknown Garima Plus Meter) acetaminophen 650 mg 1,300 mg PO [facility] 01/20/23 03/23/25 01/22/25 tablet,extended release (Tylenol Arthritis Pain) Hospital Bed Homecare (Hospital #1 ea 03/03/23 03/20/25 Unknown Bed) mirtazapine 7.5 mg tablet 7.5 mg PO HS 07/01/23 03/23/25 03/21/24 21:00 blood sugar diagnostic (Accu-Chek #100 ea 07/16/23 03/20/25 Unknown Garima Plus test strips) azelastine 137 mcg (0.1 %) nasal 2 spray intranasal DAILY PRN 09/30/23 03/23/25 03/21/24 09:00 spray ALLERGIES #30 mL calcium 600 mg (as 1 tab PO BID 10/11/23 03/23/25 01/22/25 carbonate)-vitamin D3 10 mcg (400 unit) tablet albuterol sulfate 2.5 mg/3 mL 2.5 mg inhalation Q4H PRN Wheezing 11/03/23 03/23/25 Unknown (0.083 %) solution for nebulization cholestyramine (with sugar) 4 gram 1 ea PO BID PRN Diarrhea 11/03/23 03/23/25 03/21/24 09:00 oral powder (Questran) ondansetron 4 mg disintegrating 4 mg PO Q6 PRN chemo associated n/v 11/03/23 03/23/25 03/08/24 09:00 tablet menthol-zinc oxide [Calmoseptine] 1 dose topical UD PRN Cold Symptoms 12/04/23 03/23/25 Unknown vitamins A,C,D-npuq-jgcipp 4,296 1 cap PO BID 02/11/24 03/23/25 01/22/25 mcg-226 mg-90 mg capsule (PreserVision AREDS) dexamethasone 4 mg tablet 4 mg PO DIRECTED PRN 03/03/24 03/23/25 03/08/24 10:00 APPOINTMENTS amoxicillin 500 mg capsule 1,000 mg (2 x 500 mg) PO ONCE PRN 03/15/24 03/23/25 03/18/24 10:00 prior to dental work #2 caps FreeStyle Rafa 3 Plus Sensor #2 ea 03/21/24 03/20/25 Unknown (blood-glucose sensor) potassium chloride 20 mEq 20 meq PO [facility] 90 days #180 tabs 05/27/24 03/23/25 01/22/25 tablet,extended release(part/cryst) (Klor-Con M) lenalidomide 10 mg capsule 10 mg PO UD 05/30/24 03/23/25 Unknown (Revlimid) duloxetine 60 mg capsule,delayed 60 mg PO QAM #90 caps 07/21/24 03/23/25 01/22/25 release (Cymbalta) ferrous sulfate 325 mg (65 mg 325 mg PO QAM PRN Other 08/29/24 03/23/25 Unknown iron) tablet Breo Ellipta 100 mcg-25 mcg/dose 1 inh inhalation DAILY #60 ea 09/22/24 03/23/25 01/22/25 powder for inhalation (fluticasone furoate-vilanterol) acyclovir 400 mg tablet 400 mg PO BID 10/21/24 03/23/25 01/22/25 pantoprazole 40 mg tablet,delayed 40 mg PO DAILY #90 tabs 10/21/24 03/23/25 01/22/25 release dulaglutide 1.5 mg/0.5 mL 1.5 mg (0.5 mL) subcut WK #2 mL 11/18/24 03/23/25 Unknown subcutaneous pen injector (Trulicity) Levoxyl 137 mcg tablet 137 mcg PO QAM #30 tabs 12/01/24 03/23/25 01/22/25 (levothyroxine) pen needle, diabetic 32 gauge x #100 ea 12/01/24 03/20/25 Unknown 32" carvedilol 6.25 mg tablet (Coreg) 6.25 mg PO BID #60 tabs 12/21/24 03/23/25 01/22/25 apixaban 5 mg tablet (Eliquis) 5 mg PO BID #180 tabs 12/22/24 03/23/25 01/22/25 bumetanide 1 mg tablet 1 mg PO QAM #90 tabs 12/28/24 03/23/25 01/22/25 digoxin 125 mcg (0.125 mg) tablet 125 mcg PO .F [facility] 01/10/25 03/23/25 Unknown fibrillation #90 tabs prednisone 5 mg tablet 5 mg PO PM 01/22/25 03/23/25 Unknown triamcinolone acetonide 0.1 % 1 applic topical BID PRN otjer 01/22/25 03/23/25 Unknown topical cream albuterol sulfate 90 mcg/actuation 2 inh inhalation Q4H PRN shortness 02/09/25 03/23/25 Unknown aerosol inhaler of breath or wheezing #8.5 grams Active Medications Generic Name Dose Route Start Last Admin Trade Name Freq PRN Reason Stop Dose Admin Nicardipine HCl 25 mg/ Sodium 250 mls @ 50 mls/hr 03/23/25 16:45 03/23/25 17:47 Chloride IV 04/22/25 16:44 5 mg/hr .Q5H CAROL 50 mls/hr Administration Protocol 5 MG/HR Miscellaneous 1 each 03/23/25 16:30 03/23/25 17:45 Icu Protocol For Hyperglycemia N/A 03/25/25 16:29 Not Given ACHS [facility] Coding Level of Care Code 68836 CRITICAL CARE 1ST 30-74M Diagnoses Acute hypoxemic respiratory failure J96.01 Hypertensive emergency I16.1 Pulmonary edema J81.1 Elevated brain natriuretic peptide (BNP) level R79.89 Elevated troponin R79.89 Elevated TSH R79.89 Elevated prolactin level R79.89 Time Spent (min) 55
[2025-03-23] MEDS: FLUTICASONE/VILANTEROL 100/25MCG 14 PUFFS/INHALER INH SCH (19:06)
[2025-03-23] MEDS: BUDESONIDE 0.5 MG/2 ML VIAL (PULMICORT) NEB SCH (19:50)
[2025-03-23] MEDS: CEROVITE ADV FORMULA TAB PO SCH (20:10)
[2025-03-23] MEDS: ACETAMINOPHEN 500 MG TAB PO SCH (20:12)
[2025-03-23] MEDS: POTASSIUM CHLORIDE CRTAB 20 MEQ TABCR PO SCH (20:12)
[2025-03-23] MEDS: ACYCLOVIR 400 MG TAB PO SCH (20:13)
[2025-03-23] MEDS: CALCIUM 600MG + VIT D 400 IU TAB PO SCH (20:14)
[2025-03-23] MEDS: APIXABAN 5 MG TABLET PO SCH (20:14)
[2025-03-23] MEDS: MAGNESIUM OXIDE 400 MG TAB PO SCH (20:16)
[2025-03-23] MEDS: MIRTAZAPINE TAB 15 MG TAB PO SCH (20:16)
[2025-03-23] MEDS: OMEGA-3 (PURIFIED FISH OIL) 1 GM CAP PO SCH (20:19)
[2025-03-24] MEDS: CEFEPIME 1000MG 1,000 MG/10 ML SYR IV SCH (03:44)
[2025-03-24] MEDS: LEVOTHYROXINE SODIUM 137 MCG TABLET PO SCH (05:19)
[2025-03-24 05:32] LABS: Hematocrit (blood only) 36.7 % (37.0-47.0); Hemoglobin 11.8 g/dl (12.0-16.0); Mean Corpuscular Hemoglobin 32.1 pg (25.0-34.0); Mean Corpuscular Volume 99.7 fL (80.0-100.0); Platelet Count 269 K/uL (130-400); RDW Standard Deviation 67.9 fL (36.4-46.3); Red Blood Count 3.68 M/uL (4.20-5.40); White Blood Count 4.96 K/ul (4.8-10.8)
[2025-03-24 05:48] LABS: Anion Gap 10.0 (3-11); Blood Urea Nitrogen 36.0 mg/dl (6-23); Calcium 9.0 mg/dl (8.6-10.3); Carbon Dioxide 25.0 mmol/L (21-32); Chloride 109.0 mmol/L (98-107); Creatinine Clr Calc Pharmacy 25.6 ml/min; Glucose 128.0 mg/dl (70-99(Fasting)); Magnesium 2.3 mg/dl (1.7-2.4); Potassium 4.4 mmol/L (3.5-5.1); Sodium 144.0 mmol/L (136-145)
[2025-03-24] MEDS: AZELASTINE HCL 0.1% NASAL 200 SPRAYS/27,400 MCG BTL PRN (08:54)
--- NOTE | 2025-03-24 10:52 | Electrocardiogram Report ---
Test Reason : Blood Pressure : */* mmHG Vent. Rate : 94 BPM Atrial Rate : 94 BPM P-R Int : * ms QRS Dur : 120 ms QT Int : 378 ms P-R-T Axes : * 14 175 degrees QTcB Int : 472 ms Ventricular-paced rhythm Abnormal ECG When compared with ECG of 23-Mar-2025 09:33, Vent. rate has increased by 23 bpm Confirmed by Lukasz Schilling ([id number]) on 03/24/2025 10:51:35 AM Referred By: REFERRED SELF Confirmed By: Lukasz Schilling
--- NOTE | 2025-03-24 12:43 | Hospitalist Progress Note ---
Date of Service March 24, 2025 Assessment & Plan (1) Pulmonary edema: Plan: Barbara Vergara is a 79 yo woman PMH of asthma, non-ischemic cardiomyopathy; A-fib on eliquis, multiple myeloma, diabetes, hypertension, psoariatic arthritis, s/ AICD, hypothyroidism. transaminitis, she was in our hospital in summer for foot cellulitis, at baseline, she's on room air; on 03/23/2025, she's presented to our hospital with sudden onset shortness of breath, RR of 32-33, CXR concern for pulmonary edema and hypertensive emergency with SBP of 190/110, s/p bumex, nitro and cefepime, she will be admitted to ICU for hypertensive emergency with pulmonary edema. hypertensive emergency pulmonary edema CKD non-ischemic CHF, A-fib lasix allergy multiple myeloma diabetes asthma transaminitis hypertensive emergency with pulmonary edema she's been off bipap and on room air c/w IV bumex f/u blood culture, empiric cefepime acute pulmonary edema, IV bumex BID, monitor creatinine value was on bipap on 03/23 and wean to room air on 03/24/2025 deposition, dc 24-48 hours away if BP stable and remained on room air and negative blood culture non-ischemic CHF, a-fib, s/p AICD home med of bumex 1mg, coreg 6.25 digoin 125 mcg , eliquis 5 BID, digoxin 125 mcg (MWF) asthma, she's on breo ellipta 100-25 mcg/ blist with device she's on room air at baseline no wheezing multiple myeloma prednisone 5mg, revlimid 10mg daily acyclovir for prophylaxis she's on decadron 4mg monthly diabetes, she's on trulicity sub-Q mood disorder, cymbalta 60mg, remeron 7.5 qHS hypothyroidism, synthyroid 137 mcg GERd-protonix 40mg daily low magnesium, magnesium oxide 400mg tablet diarrhea, she' on PRN choledstyramine daily (2) Hypertensive emergency: Admission and Anticipated Discharge Date Admission Date: March 23, 2025 Subjective her BP is improved and she's came off bipap she unable to recall any precipitating factor that trigger her hypertensive emergency. [facility] today dc 24-48 hours away multiple myeloma Physical Exam Physical Exam: VITALS: Reviewed. WEIGHT/BMI reviewed. GEN:non-toxic appearing; HEENT -Head: NC/AT; NECK: Supple, with no masses. CV: RRR, no m/r/g. LUNGS: CTAB, no w/r/c. ABD: Soft, NT/ND, NBS, no masses or organomegaly. : N/A EXT: No clubbing, NEURO:AAOx3. Results & Data Results & Data Vital Signs (Past 12 Hours) Vital Signs Temp Pulse Resp BP Pulse Ox 03/24/25 06:21 70 24 95 03/24/25 06:18 70 19 96 03/24/25 06:00 71 20 95 03/24/25 06:00 135/78 03/24/25 06:00 135/78 03/24/25 06:00 135/78 03/24/25 06:00 135/78 03/24/25 05:51 77 22 95 03/24/25 05:48 70 21 95 03/24/25 05:39 70 21 95 03/24/25 05:30 140/72 03/24/25 05:21 77 27 H 97 03/24/25 05:00 73 22 94 03/24/25 05:00 143/67 H 03/24/25 05:00 143/67 H 03/24/25 04:57 70 21 95 03/24/25 04:30 70 20 95 03/24/25 04:30 143/70 H 03/24/25 04:30 143/70 H 03/24/25 04:24 70 21 95 03/24/25 04:12 70 20 95 03/24/25 03:42 70 21 95 03/24/25 03:39 71 21 95 03/24/25 03:34 161/83 H 03/24/25 03:30 167/88 H 03/24/25 03:27 36.9 C 03/24/25 03:03 70 21 92 03/24/25 03:00 159/84 H 03/24/25 03:00 159/84 H 03/24/25 03:00 159/84 H 03/24/25 03:00 159/84 H 03/24/25 03:00 159/84 H 03/24/25 03:00 70 19 94 03/24/25 02:57 70 20 94 03/24/25 02:45 70 20 95 03/24/25 02:33 70 21 94 03/24/25 02:30 152/81 H 03/24/25 02:30 152/81 H 03/24/25 02:27 70 20 95 03/24/25 02:12 70 17 93 03/24/25 02:03 70 20 94 03/24/25 02:00 149/84 H 03/24/25 02:00 149/84 H 03/24/25 01:51 70 20 94 03/24/25 01:45 70 22 94 03/24/25 01:30 70 20 93 03/24/25 01:30 149/81 H 03/24/25 01:18 70 19 93 03/24/25 01:03 70 21 93 03/24/25 01:00 149/79 H 03/24/25 00:54 79 21 94 03/24/25 00:51 70 20 93 03/24/25 00:48 70 21 94 Laboratory Results Laboratory Results - last 72 hr 03/23/25 03/23/25 03/23/25 09:36 10:03 11:33 WBC 5.46 RBC 3.93 L Hgb 12.7 Hct 40.7 MCV 103.6 H MCH 32.3 MCHC 31.2 L RDW Std Deviation 70.4 H RDW Coeff of Amrita 18.9 H Plt Count 274 MPV 10.8 Immature Gran % (Auto) 0.5 Neut % (Auto) 51.9 Lymph % (Auto) 28.6 [place] % (Auto) 15.0 Eos % (Auto) 1.1 Baso % (Auto) 2.9 Neut # (Auto) 2.83 Lymph # (Auto) 1.56 [place] # (Auto) 0.82 H Eos # (Auto) 0.06 Baso # (Auto) 0.16 Immature Gran # (Auto) 0.03 PT 11.4 INR 1.1 VBG pH 7.31 L VBG pCO2 55 H VBG pO2 < 20 VBG HCO3 28 VBG O2 Saturation < 60.0 VBG Base Excess 0.4 Sodium 143 Potassium 5.0 Chloride 110 H Carbon Dioxide 26 Anion Gap 7 BUN 33 H Creatinine 2.40 H Est Cr Clr Drug Dosing 25.0 eGFR 20.17 BUN/Creatinine Ratio 13.8 Glucose 151 H POC Glucose Calcium 9.0 Phosphorus Magnesium 2.2 Total Bilirubin 1.2 H AST 79 H ALT 79 H Alkaline Phosphatase 260 H Troponin I High Sens 49.0 H 60.5 H* D B-Natriuretic Peptide 2140 H Total Protein 6.4 Albumin 3.4 Globulin 3.0 Albumin/Globulin Ratio 1.1 Procalcitonin TSH Urine Color Urine Appearance Urine pH Ur Specific [place] Urine Protein Urine Glucose (UA) Urine Ketones Urine Blood Urine Nitrite Urine Bilirubin Urine Urobilinogen Ur Leukocyte Esterase Urine WBC (Auto) Urine RBC (Auto) U Hyaline Cast (Auto) U Epithel Cells (Auto) Urine Bacteria (Auto) Urine Comment Nasal Screen MRSA (PCR) Adenovirus (PCR) Not Detected B. pertussis DNA (PCR) Not Detected B.parapertussis DNA PCR Not Detected C. pneumoniae DNA (PCR) Not Detected Coronavirus OC43 (PCR) Not Detected Coronavirus HKU1 (PCR) Not Detected Coronavirus 229E (PCR) Not Detected SARS-CoV-2 (PCR) Not Detected Coronavirus NL63 (PCR) Not Detected Human Metapneumovir PCR Not Detected Influenza Type A (PCR) Not Detected Influenza Type B (PCR) Not Detected M. pneumoniae (PCR) Not Detected Parainfluenza 1 (PCR) Not Detected Parainfluenza 2 (PCR) Not Detected Parainfluenza 3 (PCR) Not Detected Parainfluenza 4 (PCR) Not Detected RSV (PCR) Not Detected Entero/Rhino (PCR) Not Detected 03/23/25 03/23/25 03/23/25 12:17 14:36 16:35 WBC RBC Hgb Hct MCV MCH MCHC RDW Std Deviation RDW Coeff of Amrita Plt Count MPV Immature Gran % (Auto) Neut % (Auto) Lymph % (Auto) [place] % (Auto) Eos % (Auto) Baso % (Auto) Neut # (Auto) Lymph # (Auto) [place] # (Auto) Eos # (Auto) Baso # (Auto) Immature Gran # (Auto) PT INR VBG pH VBG pCO2 VBG pO2 VBG HCO3 VBG O2 Saturation VBG Base Excess Sodium Potassium Chloride Carbon Dioxide Anion Gap BUN Creatinine Est Cr Clr Drug Dosing eGFR BUN/Creatinine Ratio Glucose POC Glucose Calcium Phosphorus Magnesium Total Bilirubin AST ALT Alkaline Phosphatase Troponin I High Sens 66.0 H* 66.5 H* B-Natriuretic Peptide Total Protein Albumin Globulin Albumin/Globulin Ratio Procalcitonin 0.53 H TSH 12.592 H Urine Color Dark Yellow Urine Appearance Cloudy A Urine pH 6.0 Ur Specific [place] 1.026 Urine Protein 2+ H Urine Glucose (UA) Negative Urine Ketones Trace H Urine Blood Negative Urine Nitrite Negative Urine Bilirubin Negative Urine Urobilinogen Negative Ur Leukocyte Esterase Trace H Urine WBC (Auto) 0-5 Urine RBC (Auto) 0-2 U Hyaline Cast (Auto) 0-2 U Epithel Cells (Auto) 6-10 H Urine Bacteria (Auto) 1+ H Urine Comment Nasal Screen MRSA (PCR) Adenovirus (PCR) B. pertussis DNA (PCR) B.parapertussis DNA PCR C. pneumoniae DNA (PCR) Coronavirus OC43 (PCR) Coronavirus HKU1 (PCR) Coronavirus 229E (PCR) SARS-CoV-2 (PCR) Coronavirus NL63 (PCR) Human Metapneumovir PCR Influenza Type A (PCR) Influenza Type B (PCR) M. pneumoniae (PCR) Parainfluenza 1 (PCR) Parainfluenza 2 (PCR) Parainfluenza 3 (PCR) Parainfluenza 4 (PCR) RSV (PCR) Entero/Rhino (PCR) 03/23/25 03/23/25 03/24/25 19:14 Unknown 05:17 WBC 4.96 RBC 3.68 L Hgb 11.8 L Hct 36.7 L MCV 99.7 MCH 32.1 MCHC 32.2 RDW Std Deviation 67.9 H RDW Coeff of Amrita 18.9 H Plt Count 269 MPV 10.8 Immature Gran % (Auto) Neut % (Auto) Lymph % (Auto) [place] % (Auto) Eos % (Auto) Baso % (Auto) Neut # (Auto) Lymph # (Auto) [place] # (Auto) Eos # (Auto) Baso # (Auto) Immature Gran # (Auto) PT INR VBG pH VBG pCO2 VBG pO2 VBG HCO3 VBG O2 Saturation VBG Base Excess Sodium 144 Potassium 4.4 Chloride 109 H Carbon Dioxide 25 Anion Gap 10 BUN 36 H Creatinine 2.32 H Est Cr Clr Drug Dosing 25.6 eGFR 21.01 BUN/Creatinine Ratio 15.5 Glucose 128 H POC Glucose 130 H Calcium 9.0 Phosphorus 4.3 Magnesium 2.3 Total Bilirubin AST ALT Alkaline Phosphatase Troponin I High Sens B-Natriuretic Peptide Total Protein Albumin Globulin Albumin/Globulin Ratio Procalcitonin TSH Urine Color Urine Appearance Urine pH Ur Specific [place] Urine Protein Urine Glucose (UA) Urine Ketones Urine Blood Urine Nitrite Urine Bilirubin Urine Urobilinogen Ur Leukocyte Esterase Urine WBC (Auto) Urine RBC (Auto) U Hyaline Cast (Auto) U Epithel Cells (Auto) Urine Bacteria (Auto) Urine Comment Nasal Screen MRSA (PCR) Negative Adenovirus (PCR) B. pertussis DNA (PCR) B.parapertussis DNA PCR C. pneumoniae DNA (PCR) Coronavirus OC43 (PCR) Coronavirus HKU1 (PCR) Coronavirus 229E (PCR) SARS-CoV-2 (PCR) Coronavirus NL63 (PCR) Human Metapneumovir PCR Influenza Type A (PCR) Influenza Type B (PCR) M. pneumoniae (PCR) Parainfluenza 1 (PCR) Parainfluenza 2 (PCR) Parainfluenza 3 (PCR) Parainfluenza 4 (PCR) RSV (PCR) Entero/Rhino (PCR) Diagnostic Findings Laboratory Results WBC 4.96 K/ul (4.8-10.8) 03/24/25 05:17 RBC 3.68 M/uL (4.20-5.40) L 03/24/25 05:17 Hgb 11.8 g/dl (12.0-16.0) L 03/24/25 05:17 Hct 36.7 % (37.0-47.0) L 03/24/25 05:17 MCV 99.7 fL (80.0-100.0) 03/24/25 05:17 MCH 32.1 pg (25.0-34.0) 03/24/25 05:17 MCHC 32.2 g/dL (32.0-36.0) 03/24/25 05:17 RDW Std Deviation 67.9 fL (36.4-46.3) H 03/24/25 05:17 RDW Coeff of Amrita 18.9 % (11.5-14.5) H 03/24/25 05:17 Plt Count 269 K/uL (130-400) 03/24/25 05:17 MPV 10.8 fL (9.4-12.4) 03/24/25 05:17 Immature Gran % (Auto) 0.5 % 03/23/25 09:36 Neut % (Auto) 51.9 % 03/23/25 09:36 Lymph % (Auto) 28.6 % 03/23/25 09:36 [place] % (Auto) 15.0 % 03/23/25 09:36 Eos % (Auto) 1.1 % 03/23/25 09:36 Baso % (Auto) 2.9 % 03/23/25 09:36 Neut # (Auto) 2.83 K/uL (1.40-6.50) 03/23/25 09:36 Lymph # (Auto) 1.56 K/uL (1.20-3.40) 03/23/25 09:36 [place] # (Auto) 0.82 K/uL (0.11-0.59) H 03/23/25 09:36 Eos # (Auto) 0.06 K/uL (0.00-0.50) 03/23/25 09:36 Baso # (Auto) 0.16 K/uL (0.00-0.20) 03/23/25 09:36 Immature Gran # (Auto) 0.03 K/uL (0.01-0.20) 03/23/25 09:36 PT 11.4 Seconds (9.0-12.0) 03/23/25 09:36 INR 1.1 (0.9-1.1) 03/23/25 09:36 VBG pH 7.31 (7.36-7.41) L 03/23/25 09:36 VBG pCO2 55 mmHg (38-50) H 03/23/25 09:36 VBG pO2 < 20 mmHg 03/23/25 09:36 VBG HCO3 28 mmol/L 03/23/25 09:36 VBG O2 Saturation < 60.0 % 03/23/25 09:36 VBG Base Excess 0.4 mEq/L 03/23/25 09:36 Sodium 144 mmol/L (136-145) 03/24/25 05:17 Potassium 4.4 mmol/L (3.5-5.1) 03/24/25 05:17 Chloride 109 mmol/L (98-107) H 03/24/25 05:17 Carbon Dioxide 25 mmol/L (21-32) 03/24/25 05:17 Anion Gap 10 (3-11) 03/24/25 05:17 BUN 36 mg/dl (6-23) H 03/24/25 05:17 Creatinine 2.32 mg/dl (0.6-1.2) H 03/24/25 05:17 Est Cr Clr Drug Dosing 25.6 ml/min 03/24/25 05:17 eGFR 21.01 03/24/25 05:17 BUN/Creatinine Ratio 15.5 (10-20) 03/24/25 05:17 Glucose 128 mg/dl (70-99(Fasting)) H 03/24/25 05:17 POC Glucose 130 mg/dl (70-99) H 03/23/25 19:14 Calcium 9.0 mg/dl (8.6-10.3) 03/24/25 05:17 Phosphorus 4.3 mg/dl (2.5-4.9) 03/24/25 05:17 Magnesium 2.3 mg/dl (1.7-2.4) 03/24/25 05:17 Total Bilirubin 1.2 mg/dl (0.2-1.0) H 03/23/25 09:36 AST 79 U/L (13-39) H 03/23/25 09:36 ALT 79 U/L (7-52) H 03/23/25 09:36 Alkaline Phosphatase 260 U/L (34-104) H 03/23/25 09:36 Troponin I High Sens 66.5 pg/ml (0-14) H* 03/23/25 16:35 B-Natriuretic Peptide 2140 pg/ml (0-100) H 03/23/25 09:36 Total Protein 6.4 gm/dl (6.0-8.3) 03/23/25 09:36 Albumin 3.4 gm/dl (3.4-5.0) 03/23/25 09:36 Globulin 3.0 gm/dl (2.5-4.0) 03/23/25 09:36 Albumin/Globulin Ratio 1.1 (0.9-2) 03/23/25 09:36 Procalcitonin 0.53 ng/ml (0-0.5) H 03/23/25 14:36 TSH 12.592 uIu/ml (0.300-4.500) H 03/23/25 14:36 Urine Color Dark Yellow 03/23/25 12:17 Urine Appearance Cloudy (Clear) A 03/23/25 12:17 Urine pH 6.0 (4.5-7.5) 03/23/25 12:17 Ur Specific [place] 1.026 (1.000-1.030) 03/23/25 12:17 Urine Protein 2+ (Negative) H 03/23/25 12:17 Urine Glucose (UA) Negative (Negative) 03/23/25 12:17 Urine Ketones Trace (Negative) H 03/23/25 12:17 Urine Blood Negative (Negative) 03/23/25 12:17 Urine Nitrite Negative (Negative) 03/23/25 12:17 Urine Bilirubin Negative (Negative) 03/23/25 12:17 Urine Urobilinogen Negative (Negative) 03/23/25 12:17 Ur Leukocyte Esterase Trace (Negative) H 03/23/25 12:17 Urine WBC (Auto) 0-5 /hpf (0-5) 03/23/25 12:17 Urine RBC (Auto) 0-2 /hpf (0-2) 03/23/25 12:17 U Hyaline Cast (Auto) 0-2 /lpf (0-2) 03/23/25 12:17 U Epithel Cells (Auto) 6-10 /hpf (0-2) H 03/23/25 12:17 Urine Bacteria (Auto) 1+ (None Seen) H 03/23/25 12:17 Urine Comment 03/23/25 12:17 Nasal Screen MRSA (PCR) Negative (Negative) 03/23/25 Unknown Adenovirus (PCR) Not Detected (NotDetected) 03/23/25 10:03 B. pertussis DNA (PCR) Not Detected (NotDetected) 03/23/25 10:03 B.parapertussis DNA PCR Not Detected (NotDetected) 03/23/25 10:03 C. pneumoniae DNA (PCR) Not Detected (NotDetected) 03/23/25 10:03 Coronavirus OC43 (PCR) Not Detected (NotDetected) 03/23/25 10:03 Coronavirus HKU1 (PCR) Not Detected (NotDetected) 03/23/25 10:03 Coronavirus 229E (PCR) Not Detected (NotDetected) 03/23/25 10:03 SARS-CoV-2 (PCR) Not Detected (NotDetected) 03/23/25 10:03 Coronavirus NL63 (PCR) Not Detected (NotDetected) 03/23/25 10:03 Human Metapneumovir PCR Not Detected (NotDetected) 03/23/25 10:03 Influenza Type A (PCR) Not Detected (NotDetected) 03/23/25 10:03 Influenza Type B (PCR) Not Detected (NotDetected) 03/23/25 10:03 M. pneumoniae (PCR) Not Detected (NotDetected) 03/23/25 10:03 Parainfluenza 1 (PCR) Not Detected (NotDetected) 03/23/25 10:03 Parainfluenza 2 (PCR) Not Detected (NotDetected) 03/23/25 10:03 Parainfluenza 3 (PCR) Not Detected (NotDetected) 03/23/25 10:03 Parainfluenza 4 (PCR) Not Detected (NotDetected) 03/23/25 10:03 RSV (PCR) Not Detected (NotDetected) 03/23/25 10:03 Entero/Rhino (PCR) Not Detected (NotDetected) 03/23/25 10:03 Impressions Chest X-Ray 03/23/25 09:45 XR chest 1V portable CLINICAL HISTORY: Dyspnea COMPARISON STUDY: 01/30/2025 FINDINGS: Stable pacemaker and left shoulder prosthesis. There is increased cardiomegaly and pulmonary vascular congestion. There are small bilateral pleural effusions and adjacent lung base consolidation. No pneumothorax. IMPRESSION: CHF with bilateral pleural effusion/lung base consolidation. ACT 112: Negative or not required by law. Electronically signed by: Antoni Zaragoza M.D. 03/23/2025 10:51 AM Medications Administered Current Inpatient Medications Acetaminophen (Acetaminophen 500 Mg Tab) 1,000 mg PO AMHS CAROL Stop: 04/22/25 20:59 Last Admin: 03/24/25 08:58 Dose: 1,000 mg Acyclovir (Acyclovir 400 Mg Tab) 400 mg PO BID CAROL Stop: 04/22/25 20:59 Last Admin: 03/24/25 08:54 Dose: 400 mg Albuterol (Albut/Ipratrop 3mg/0.5mg Neb 3 Ml Vial) 3 ml NEB Q6R PRN; Protocol PRN Reason: Shortness Of Breath Stop: 04/22/25 13:51 Albuterol (Albuterol Hfa 8 Gm Inhaler) 2 puffs INH Q4H PRN PRN Reason: shortness of breath or wheezing Stop: 04/22/25 16:17 Albuterol (Albuterol 0.083% Nebu Soln 3 Ml Vial) 2.5 mg INH Q4H PRN; Protocol PRN Reason: Wheezing Stop: 04/22/25 16:17 Apixaban (Apixaban 5 Mg Tablet) 5 mg PO BID CAROL Stop: 04/22/25 20:59 Last Admin: 03/24/25 08:53 Dose: 5 mg Azelastine HCl (Azelastine Hcl 0.1% Nasal 200 Sprays/27,400 Mcg Btl) 2 sprays NA DAILY PRN PRN Reason: ALLERGIES Stop: 04/22/25 16:17 Last Admin: 03/24/25 08:54 Dose: 2 sprays Budesonide (Budesonide 0.5 Mg/2 Ml Vial (Pulmicort)) 0.5 mg NEB BIDR [facility] Stop: 04/22/25 18:59 Last Admin: 03/23/25 19:50 Dose: 0.5 mg Calcium/Vitamin D (Calcium 600mg + Vit D 400 Iu Tab) 1 tab PO BID CAROL Stop: 04/22/25 20:59 Last Admin: 03/24/25 08:53 Dose: 1 tab Carvedilol (Carvedilol 6.25 Mg Tab) 6.25 mg PO BIDM [facility] Stop: 04/22/25 16:59 Last Admin: 03/24/25 08:53 Dose: 6.25 mg Cholestyramine Resin (Cholestyramine Light 4 Gm Pkt) 4 gm PO BID PRN PRN Reason: Diarrhea Stop: 04/22/25 16:49 Digoxin (Digoxin 0.125 Mg Tab) 0.125 mg PO MoWeFr@1600 [facility] Stop: 04/23/25 15:59 Duloxetine HCl (Duloxetine Hcl 60 Mg Cap) 60 mg PO QAM CAROL Stop: 04/23/25 08:59 Last Admin: 03/24/25 08:54 Dose: 60 mg Fish Oil ([place]-3 (Purified Fish Oil) 1 Gm Cap) 1 cap PO AMHS CAROL Stop: 04/22/25 20:59 Last Admin: 03/24/25 12:14 Dose: Not Given Fluticasone/Vilanterol (Fluticasone/Vilanterol 100/25mcg 14 Puffs/Inhaler) 1 puffs INH DAILY CAROL Stop: 04/22/25 16:59 Last Admin: 03/24/25 08:55 Dose: 1 puffs Bumetanide 1 mg/ Syringe 4 mls @ 4 mls/min IV BID@0900,1700 CAROL Stop: 03/27/25 20:59 Cefepime HCl (Maxipime 2000mg) 1,000 mg in 10 mls @ 5 mls/min IV Q12H [facility]; Protocol Stop: 03/26/25 04:59 Last Admin: 03/24/25 03:44 Dose: 5 mls/min Levothyroxine Sodium (Levothyroxine Sodium 137 Mcg Tablet) 137 mcg PO DAILYBB CAROL Stop: 04/23/25 06:29 Last Admin: 03/24/25 05:19 Dose: 137 mcg Magnesium Oxide (Magnesium Oxide 400 Mg Tab) 400 mg PO AMHS CAROL Stop: 04/22/25 20:59 Last Admin: 03/24/25 08:52 Dose: 400 mg Melatonin (Melatonin 3 Mg Tab) 3 mg PO HS CAROL Stop: 03/27/25 20:59 Mirtazapine (Mirtazapine Tab 15 Mg Tab) 7.5 mg PO HS [facility] Stop: 04/22/25 20:59 Last Admin: 03/23/25 20:16 Dose: 7.5 mg Miscellaneous (Icu Protocol For Hyperglycemia) 1 each N/A ACHS [facility] Stop: 03/25/25 16:29 Last Admin: 03/24/25 12:15 Dose: Not Given Miscellaneous (Non-Formulary Medication (Lenalidomide [Revlimid] 10 Mg Capsule)--Order Awaiting Action) 1 each N/A QS [facility] Stop: 04/23/25 00:00 Last Admin: 03/24/25 12:14 Dose: Not Given Multivitamins/Minerals (Cerovite Adv Formula Tab) 1 tab PO BID CAROL Stop: 04/22/25 20:59 Last Admin: 03/24/25 08:55 Dose: 1 tab Ondansetron HCl (Ondansetron 4 Mg Od Tab) 4 mg PO Q6 PRN PRN Reason: chemo associated n/v Stop: 04/22/25 16:17 Potassium Chloride (Potassium Chloride Crtab 20 Meq Tabcr) 20 meq PO AMHS CAROL Stop: 04/22/25 20:59 Last Admin: 03/24/25 08:58 Dose: 20 meq Prednisone (Prednisone 5 Mg Tab) 5 mg PO PM CAROL Stop: 04/22/25 20:59 Last Admin: 03/23/25 20:15 Dose: 5 mg PG Care Time/CCT Total # of Minutes Spent Total Time Spent with Patient: Total time spent is greater than 50% in coordination of care (as documented) at patient's floor/unit and/or counseling patient: Coding Level of Care Code 64010 SUB INP/OBS CARE 06/18MIN Diagnoses Pulmonary edema J81.1 Hypertensive emergency I16.1 Time Spent (min) 25
[2025-03-24] MEDS: BUMETANIDE 1 MG in SYRINGE 0 ML IV SCH (16:03)
[2025-03-24] MEDS: DIGOXIN 0.125 MG TAB PO SCH (16:04)
[2025-03-24] MEDS: MELATONIN 3 MG TAB PO SCH (20:05)
[2025-03-25 07:08] LABS: Hematocrit (blood only) 34.8 % (37.0-47.0); Hemoglobin 11.4 g/dl (12.0-16.0); Mean Corpuscular Hemoglobin 32.8 pg (25.0-34.0); Mean Corpuscular Volume 100.0 fL (80.0-100.0); Platelet Count 242 K/uL (130-400); RDW Standard Deviation 69.4 fL (36.4-46.3); Red Blood Count 3.48 M/uL (4.20-5.40); White Blood Count 4.17 K/ul (4.8-10.8)
[2025-03-25 08:08] LABS: Anion Gap 9.0 (3-11); Blood Urea Nitrogen 40.0 mg/dl (6-23); Calcium 9.1 mg/dl (8.6-10.3); Carbon Dioxide 27.0 mmol/L (21-32); Chloride 107.0 mmol/L (98-107); Creatinine Clr Calc Pharmacy 24.3 ml/min; Glucose 115.0 mg/dl (70-99(Fasting)); Potassium 4.4 mmol/L (3.5-5.1); Sodium 143.0 mmol/L (136-145)
--- NOTE | 2025-03-25 08:39 | XRay Report ---
XR chest 1V portable CLINICAL HISTORY: chf COMPARISON STUDY: 03/23/2025 FINDINGS: Stable pacemaker and left shoulder prosthesis. Stable cardiomegaly. Stable pulmonary vascul ar congestion. Stable small bilateral pleural effusions and associated lung base consolidation. No pn eumothorax. IMPRESSION: Stable exam. ACT 112: Negative or not required by law. Electronically signed by: Antoni Zaragoza M.D. 03/25/2025 8:38 AM
[2025-03-25] MEDS: INSULIN ASPART PER UNIT CHARGE SC SCH (11:48)
--- NOTE | 2025-03-25 11:57 | Hospitalist Progress Note ---
"Date of Service March 25, 2025 Assessment & Plan (1) Pulmonary edema: (2) Hypertensive emergency: Plan This is a 79 year old female with past medical history of CHF, HTN, ISABELLE, MM who presented to the ED on 03/23/2025 secondary to SOB. #Hypertension Emergency | Type 2 NSTEMI w/ BP in ED 193/126; Sales Communications Manager contacted & patient was placed on Nicardipine drip for ~ 24 hours w/ improvement of pressures. She was downgraded from the ICU on 03/24. BP spiked overnight to 03/25 @ 183/91 w/ associated chest tightness. Trop has continued to rise minimally, last value 66.5, repeat pending. Hydralazine 25mg TID initiated 03/25 w/ improvement of pressures #Acute on Chronic CHF | A-fib | s/p AICD Home medications include: Bumex 1mg daily; Coreg 6.25mg BID; Digoxin 125mcg MWF; & Eliquis 5mg BID s/p diuresis w/ Bumex BID --> improvement of symptoms + weight down to near baseline @ 205lbs. Resume home Bumex dosing 11 AM; continue Coreg, Digoxin & Eliquis. Pacemaker interrogation pending Monitor I&O's. daily weights, standing preferred. On room air & no longer short of breath. Follows w/ cardiology & CHF clinic outpatient. #hypothyroidism Synthroid 137 mcg TSH elevated at 12.592; obtain free T4/Free T3 levels. #Asthma Continue home inhalers stable, no wheezing. #Multiple Myeloma actively undergoing chemotherapy outpatient continue to follow w/ oncology CBC stable. #CKD stage 4 creatinine within baseline of 2.3-2.6 avoid nephrotoxic agents follows with nephrology outpatient #Type 2 Diabetes Outpatient regimen: Trulicity - hold while inpatient. A1c 09/09/24: 5.7%; repeat in AM SSI coverage while inpatient. #mood disorder- Cymbalta 60mg, Remeron 7.5 qHS #GERD-Protonix 40mg daily #hypomagnesemia - mag stable at 2.3; continue magnesium oxide 400mg tablet #diarrhea - PRN cholestyramine daily DVT prophylaxis: Eliquis Code: full Admission and Anticipated Discharge Date Admission Date: March 23, 2025 Supervising Physician Co-Signing Physician Notes The patient was not seen by me. The chart was reviewed. Case discussed with SILVANA Medley. Agree with assessment and plan Subjective Mike was examined this morning. She reports that overnight and this morning she had experienced chest tightness again. She notices it most when taking a deep breath. She denies any SOB or cough. Denies actual chest pain. Has been having good urine output in her jim catheter. Physical Exam Physical Exam: General: NAD, VS: BP 151/107; P91; R24; T36.9C Resp: normal respiratory effort, lungs clear to auscultation, diminished @ bases b/l. CV: RRR, no murmur Extremities: Moves all extremities, no edema Neuro: A&O x3 Skin: intact, no lesions noted Results & Data Results & Data Vital Signs (Past 12 Hours) Vital Signs Temp Pulse Resp BP Pulse Ox O2 Del Method 03/25/25 11:06 36.9 C 95 H 24 129/84 95 Room Air 03/25/25 08:10 36.7 C 93 H 22 168/98 H 93 Room Air 03/25/25 07:27 88 20 95 Room Air 03/25/25 07:00 Room Air 03/25/25 04:39 152/92 H 03/25/25 02:57 36.8 C 70 19 183/91 H 94 Room Air PG Care Time/CCT Total # of Minutes Spent Total Time Spent with Patient: Total time spent is greater than 50% in coordination of care (as documented) at patient's floor/unit and/or counseling patient: Coding Level of Care Code 35345 SUB INP/OBS CARE 3/50MIN Diagnoses Pulmonary edema J81.1 Hypertensive emergency I16.1"
[2025-03-25] MEDS: BUMETANIDE 2 MG in SYRINGE 0 ML IV SCH (17:56)
--- NOTE | 2025-03-26 05:56 | Electrocardiogram Report ---
Test Reason : Blood Pressure : */* mmHG Vent. Rate : 97 BPM Atrial Rate : 96 BPM P-R Int : * ms QRS Dur : 134 ms QT Int : 366 ms P-R-T Axes : * -12 135 degrees QTcB Int : 464 ms Ventricular-paced rhythm Abnormal ECG When compared with ECG of 23-Mar-2025 18:28, Vent. rate has increased by 3 bpm Confirmed by Jarocho Herrera ([id number]) on 03/26/2025 5:55:57 AM Referred By: REFERRED SELF Confirmed By: Jarocho Herrera
[2025-03-26 06:56] LABS: Hematocrit (blood only) 38.5 % (37.0-47.0); Hemoglobin 12.3 g/dl (12.0-16.0); Mean Corpuscular Hemoglobin 31.9 pg (25.0-34.0); Mean Corpuscular Volume 100.0 fL (80.0-100.0); Platelet Count 261 K/uL (130-400); RDW Standard Deviation 69.6 fL (36.4-46.3); Red Blood Count 3.85 M/uL (4.20-5.40); White Blood Count 3.40 K/ul (4.8-10.8)
[2025-03-26 07:12] LABS: Anion Gap 9.0 (3-11); Blood Urea Nitrogen 40.0 mg/dl (6-23); Calcium 9.3 mg/dl (8.6-10.3); Carbon Dioxide 29.0 mmol/L (21-32); Chloride 103.0 mmol/L (98-107); Creatinine Clr Calc Pharmacy 24.9 ml/min; Glucose 123.0 mg/dl (70-99(Fasting)); Potassium 4.2 mmol/L (3.5-5.1); Sodium 141.0 mmol/L (136-145)
[2025-03-26 07:31] LABS: T4 Free Thyroxine 0.92 ng/dl (0.61-1.60)
[2025-03-26] MEDS ORDERED: BUMETANIDE 1 MG TAB PO SCH (09:00)
--- NOTE | 2025-03-26 11:48 | Hospitalist Progress Note ---
"Date of Service March 26, 2025 Assessment & Plan (1) Pulmonary edema: (2) Hypertensive emergency: Plan This is a 79 year old female with past medical history of CHF, HTN, ISABELLE, MM who presented to the ED on 03/23/2025 secondary to SOB. #Hypertension Emergency | Type 2 NSTEMI w/ BP in ED 193/126; [employer] Boat [employer] contacted & patient was placed on Nicardipine drip for ~ 24 hours w/ improvement of pressures. She was downgraded from the ICU on 03/24. BP spiked overnight to 03/25 @ 183/91 w/ associated chest tightness. Trop peaked at 66 & has since downtrended to 49.0 Hydralazine increased to 50mg TID initiated 03/26 , continue to monitor. #Acute on Chronic CHF | A-fib | s/p AICD Home medications include: Bumex 1mg daily; Coreg 6.25mg BID; Digoxin 125mcg MWF; & Eliquis 5mg BID Continue Bumex 1mg IV BID--> improvement of symptoms + weight continues to decrease appropriately. Consider increasing Bumex to 2mg once daily on discharge, renal function has remained stable in the setting of aggressive diuresis. Pacemaker interrogation pending Monitor I&O's. daily weights, standing preferred. On room air & no longer short of breath. Follows w/ cardiology & CHF clinic outpatient. #hypothyroidism Synthroid 137 mcg --> increased to Synthroid 150mcg daily. TSH elevated at 12.592; Free T4 WNL, Free T3 low at 1.34 #Asthma Continue home inhalers stable, no wheezing. #Multiple Myeloma actively undergoing chemotherapy outpatient continue to follow w/ oncology CBC stable. #CKD stage 4 creatinine within baseline of 2.3-2.6 (2.35 on 03/26) avoid nephrotoxic agents follows with nephrology outpatient #Type 2 Diabetes Outpatient regimen: Trulicity - hold while inpatient. A1c 09/09/24: 5.7%; repeat in AM SSI coverage while inpatient. #mood disorder- Cymbalta 60mg, Remeron 7.5 qHS #GERD-Protonix 40mg daily #hypomagnesemia - mag stable at 2.3; continue magnesium oxide 400mg tablet #diarrhea - PRN cholestyramine daily DVT prophylaxis: Eliquis Code: full Admission and Anticipated Discharge Date Admission Date: March 23, 2025 Supervising Physician Co-Signing Physician Notes The patient was not seen by me. The chart was reviewed. Case discussed with SILVANA Medley. Agree with assessment and plan Subjective Mike was seen & examined this morning. She reports her chest tightness has improved. She denies any SOB, still urinating frequently. Physical Exam Physical Exam: General: NAD, VS: BP 115/85; P107; R18; T36.7C Resp: normal respiratory effort, lungs clear, diminished @ bases Extremities: Moves all extremities, no edema Neuro: A&O x3 Skin: intact, no lesions noted Results & Data Results & Data Vital Signs (Past 12 Hours) Vital Signs Temp Pulse Pulse Resp BP Pulse Ox O2 Del Method 03/26/25 11:06 107 H 03/26/25 11:02 36.7 C 109 H 18 115/85 97 Room Air 03/26/25 07:25 36.6 C 100 H 23 163/119 H 96 Room Air 03/26/25 07:11 102 H 20 94 Room Air 03/26/25 07:00 Room Air 03/26/25 02:48 36.8 C 101 H 17 142/101 H 96 Room Air PG Care Time/CCT Total # of Minutes Spent Total Time Spent with Patient: Total time spent is greater than 50% in coordination of care (as documented) at patient's floor/unit and/or counseling patient: Coding Level of Care Code 01210 SUB INP/OBS CARE 3/50MIN Diagnoses Pulmonary edema J81.1 Hypertensive emergency I16.1"
--- NOTE | 2025-03-26 23:17 | XCELERA ---
[id number]
[2025-03-27 06:06] LABS: Hematocrit (blood only) 34.2 % (37.0-47.0); Hemoglobin 11.6 g/dl (12.0-16.0); Mean Corpuscular Hemoglobin 33.4 pg (25.0-34.0); Mean Corpuscular Volume 98.6 fL (80.0-100.0); Platelet Count 247 K/uL (130-400); RDW Standard Deviation 68.4 fL (36.4-46.3); Red Blood Count 3.47 M/uL (4.20-5.40); White Blood Count 3.66 K/ul (4.8-10.8)
[2025-03-27] MEDS: LEVOTHYROXINE SODIUM 150 MCG TABLET PO SCH (06:06)
[2025-03-27 06:24] LABS: Anion Gap 8.0 (3-11); Blood Urea Nitrogen 43.0 mg/dl (6-23); Calcium 8.9 mg/dl (8.6-10.3); Carbon Dioxide 29.0 mmol/L (21-32); Chloride 101.0 mmol/L (98-107); Creatinine Clr Calc Pharmacy 19.9 ml/min; Glucose 117.0 mg/dl (70-99(Fasting)); Potassium 4.3 mmol/L (3.5-5.1); Sodium 138.0 mmol/L (136-145)
--- NOTE | 2025-03-27 08:04 | XRay Report ---
EXAM: XR chest 1V portable CLINICAL HISTORY: CHF TECHNIQUE: An X-ray image of the chest was obtained in the AP projection. COMPARISON: 10/11/2023 CR. FINDINGS: Pulmonary Parenchyma: There are prominent interstitial markings bilaterally. There are small bilateral pleural effusions, more on the right. These are new findings. There is no evidence of consolidation, collapse, or focal opacities. Heart and Mediastinum: There is mild cardiomegaly, possibly related to the AP projection. The aorta is ectatic. There is no mediastinal widening or masses. There is no hilar or mediastinal lymphadenopathy. A cardiac pacemaker is identified in the left chest wall, with its leads in the right atrium and right ventricle. Bony Thorax: The bony thorax appears intact without fractures or deformities. There is a left shoulder orthopedic replacement. Soft Tissues: The soft tissues overlying the chest wall are unremarkable. IMPRESSION: 1. Small bilateral pleural effusions, more on the right. These are new findings. 2. There are prominent interstitial markings bilaterally, which may represent mild vascular congestion. Recommend clinical correlation. Electronically signed by Jero Jacobsen 03-27-2025 08:04 AM
[2025-03-27 08:32] LABS: Hemoglobin A1C 5.7 % (4.5-5.6)
--- NOTE | 2025-03-27 14:40 | Progress Note ---
"Date of Service March 27, 2025 Assessment & Plan (1) Pulmonary edema: (2) Hypertensive emergency: Plan This is a 79 year old female with past medical history of CHF, HTN, ISABELLE, MM who presented to the ED on 03/23/2025 secondary to SOB. #Hypertension Emergency | Type 2 NSTEMI w/ BP in ED 193/126; Visiting Teacher contacted & patient was placed on Nicardipine drip for ~ 24 hours w/ improvement of pressures. She was downgraded from the ICU on 03/24. BP spiked overnight to 03/25 @ 183/91 w/ associated chest tightness. Trop peaked at 66 & has since downtrended to 49.0 Hydralazine increased to 50mg TID initiated 03/26 , continue to monitor. 03/27 - BP remains high >160/100. giving one dose of pain medications as she has had bad back pain; increasing hydralazine to 75mg TID. #Acute on Chronic CHF | A-fib | s/p AICD Home medications include: Bumex 1mg daily; Coreg 6.25mg BID; Digoxin 125mcg MWF; & Eliquis 5mg BID Continue Bumex 1mg IV BID--> improvement of symptoms + weight continues to decrease appropriately. Consider increasing Bumex to 2mg once daily on discharge, renal function has remained stable in the setting of aggressive diuresis. Pacemaker interrogation pending Monitor I&O's. daily weights, standing preferred. On room air & no longer short of breath. Follows w/ cardiology & CHF clinic outpatient. 03/27 - patient feeling better, creatinine rising; stop IV bumex; change to PO Bumex to 2mg daily. JULIO superimposed on CKD stage 4 - creatinine baseline appears to be around 2.4 - 03/27 - creatinine up to 2.87 - stop IV diuresis, switch to oral Bumex - avoid nephrotoxic agents if able #hypothyroidism Synthroid 137 mcg --> increased to Synthroid 150mcg daily. TSH elevated at 12.592; Free T4 WNL, Free T3 low at 1.34 #Asthma Continue home inhalers stable, no wheezing. #Multiple Myeloma actively undergoing chemotherapy outpatient continue to follow w/ oncology CBC stable. #Type 2 Diabetes Outpatient regimen: Trulicity - hold while inpatient. A1c 09/09/24: 5.7%; repeat in AM SSI coverage while inpatient. #mood disorder- Cymbalta 60mg, Remeron 7.5 qHS #GERD-Protonix 40mg daily #hypomagnesemia - mag stable at 2.3; continue magnesium oxide 400mg tablet #diarrhea - PRN cholestyramine daily DVT prophylaxis: Shanice Code: full Admission and Anticipated Discharge Date Admission Date: March 23, 2025 Subjective Patient is doing well, denies any shortness of breath or chest pain at this time; states she's been up and walking around with no significant issues. has back pain from sitting in a chair all morning. Review of Systems Review of Systems: Constitutional: No Weight Change, No Fever, No Chills, No Night Sweats, No Fatigue, No Malaise ENT/Mouth: No Hearing Changes, No Ear Pain, No Nasal Congestion, No Sinus Pain, No Hoarseness, No sore throat, No Rhinorrhea, No Swallowing Difficulty Eyes: No Eye Pain, No Swelling, No Redness, No Foreign Body, No Discharge, No Vision Changes Cardiovascular: No Chest Pain, No SOB, No PND, No Dyspnea on Exertion, No Orthopnea, No Claudication, No Edema, No Palpitations Respiratory: No Cough, No Sputum, No Wheezing, No Smoke Exposure, No Dyspnea Gastrointestinal: No Nausea, No Vomiting, No Diarrhea, No Constipation, No Pain, No Heartburn, No Anorexia, No Dysphagia, No Hematochezia, No Melena, No Flatulence, No Jaundice Genitourinary: No Dysmenorrhea, No DUB, No Dyspareunia, No Dysuria, No Urinary Frequency, No Hematuria, No Urinary Incontinence, No Urgency, No Flank Pain, No Urinary Flow Changes, No Hesitancy Musculoskeletal: No Arthralgias, No Myalgias, No Joint Swelling, No Joint Stiffness, +back pain, No Neck Pain, No Injury History Skin: No Skin Lesions, No Pruritis, No Hair Changes, No Breast/Skin Changes, No Nipple Discharge Neuro: No Weakness, No Numbness, No Paresthesias, No Loss of Consciousness, No Syncope, No Dizziness, No Headache, No Coordination Changes, No Recent Falls Psych: No Anxiety/Panic, No Depression, No Insomnia, No Personality Changes, No Delusions, No Rumination, No SI/HI/AH/VH, No Social Issues, No Memory Changes, No Violence/Abuse Hx., No Eating Concerns Heme/Lymph: No Bruising, No Bleeding, No Transfusions History, No Lymphadenopathy Endocrine: No Polyuria, No Polydipsia, No Temperature Intolerance Physical Exam Physical Exam: VITALS: Reviewed. WEIGHT/BMI reviewed. GEN: Healthy appearing, well-developed, NAD. PSYCH: Good Judgment. AOx3. Normal memory, mood, and affect. HEENT -Head: NC/AT; -Eyes: PERRL, EOMI. No discharge or redn ess; -Ears: External ears are normal. Normal TMs. -Nose: Normal nares. -Mouth and throat: MMM. Normal gums, muc rachelle, palate,. Good dentition. NECK: Supple, with no masses. CV: RRR, no m/r/g. LUNGS: CTAB, no w/r/c. ABD: Soft, NT/ND, NBS, no masses or organomegaly. : N/A SKIN: Warm, well perfused. No skin rashes or abnormal lesions. MSK: No deformities, Normal gait. EXT: No clubbing, cyanosis, or edema. NEURO: Ambulating with no limitations. Normal muscle strength and tone. No focal deficits. Results & Data Vital Signs (Past 12 Hours) Vital Signs Temp Pulse Pulse Resp BP Pulse Ox O2 Del Method 03/27/25 13:00 03/27/25 11:27 36.7 C 102 H 18 155/99 H 97 Room Air 03/27/25 08:00 80 03/27/25 07:58 36.6 C 105 H 19 153/94 H 95 Room Air 03/27/25 05:37 97 H 03/27/25 02:44 36.7 C 101 H 22 138/96 98 Room Air O2 Del Method 03/27/25 13:00 Room Air 03/27/25 11:27 03/27/25 08:00 03/27/25 07:58 03/27/25 05:37 03/27/25 02:44 Laboratory Results Laboratory Results WBC 3.66 K/ul (4.8-10.8) L 03/27/25 05:22 RBC 3.47 M/uL (4.20-5.40) L 03/27/25 05:22 Hgb 11.6 g/dl (12.0-16.0) L 03/27/25 05:22 Hct 34.2 % (37.0-47.0) L 03/27/25 05:22 MCV 98.6 fL (80.0-100.0) 03/27/25 05:22 MCH 33.4 pg (25.0-34.0) 03/27/25 05:22 MCHC 33.9 g/dL (32.0-36.0) 03/27/25 05:22 RDW Std Deviation 68.4 fL (36.4-46.3) H 03/27/25 05:22 RDW Coeff of Amrita 18.7 % (11.5-14.5) H 03/27/25 05:22 Plt Count 247 K/uL (130-400) 03/27/25 05:22 MPV 11.1 fL (9.4-12.4) 03/27/25 05:22 Immature Gran % (Auto) 0.5 % 03/23/25 09:36 Neut % (Auto) 51.9 % 03/23/25 09:36 Lymph % (Auto) 28.6 % 03/23/25 09:36 Wilkinson % (Auto) 15.0 % 03/23/25 09:36 Eos % (Auto) 1.1 % 03/23/25 09:36 Baso % (Auto) 2.9 % 03/23/25 09:36 Neut # (Auto) 2.83 K/uL (1.40-6.50) 03/23/25 09:36 Lymph # (Auto) 1.56 K/uL (1.20-3.40) 03/23/25 09:36 Wilkinson # (Auto) 0.82 K/uL (0.11-0.59) H 03/23/25 09:36 Eos # (Auto) 0.06 K/uL (0.00-0.50) 03/23/25 09:36 Baso # (Auto) 0.16 K/uL (0.00-0.20) 03/23/25 09:36 Immature Gran # (Auto) 0.03 K/uL (0.01-0.20) 03/23/25 09:36 PT 11.4 Seconds (9.0-12.0) 03/23/25 09:36 INR 1.1 (0.9-1.1) 03/23/25 09:36 VBG pH 7.31 (7.36-7.41) L 03/23/25 09:36 VBG pCO2 55 mmHg (38-50) H 03/23/25 09:36 VBG pO2 < 20 mmHg 03/23/25 09:36 VBG HCO3 28 mmol/L 03/23/25 09:36 VBG O2 Saturation < 60.0 % 03/23/25 09:36 VBG Base Excess 0.4 mEq/L 03/23/25 09:36 Sodium 138 mmol/L (136-145) 03/27/25 05:22 Potassium 4.3 mmol/L (3.5-5.1) 03/27/25 05:22 Chloride 101 mmol/L (98-107) 03/27/25 05:22 Carbon Dioxide 29 mmol/L (21-32) 03/27/25 05:22 Anion Gap 8 (3-11) 03/27/25 05:22 BUN 43 mg/dl (6-23) H 03/27/25 05:22 Creatinine 2.87 mg/dl (0.6-1.2) H D 03/27/25 05:22 Est Cr Clr Drug Dosing 19.9 ml/min 03/27/25 05:22 eGFR 16.27 03/27/25 05:22 BUN/Creatinine Ratio 15.0 (10-20) 03/27/25 05:22 Glucose 117 mg/dl (70-99(Fasting)) H 03/27/25 05:22 POC Glucose 109 mg/dl (70-99) H 03/27/25 11:03 Estimat Average Glucose 117 mg/dl 03/27/25 05:22 Hemoglobin A1c 5.7 % (4.5-5.6) H 03/27/25 05:22 Calcium 8.9 mg/dl (8.6-10.3) 03/27/25 05:22 Phosphorus 4.3 mg/dl (2.5-4.9) 03/24/25 05:17 Magnesium 2.3 mg/dl (1.7-2.4) 03/24/25 05:17 Total Bilirubin 1.2 mg/dl (0.2-1.0) H 03/23/25 09:36 AST 79 U/L (13-39) H 03/23/25 09:36 ALT 79 U/L (7-52) H 03/23/25 09:36 Alkaline Phosphatase 260 U/L (34-104) H 03/23/25 09:36 Troponin I High Sens 49.0 pg/ml (0-14) H D 03/25/25 16:10 B-Natriuretic Peptide 2140 pg/ml (0-100) H 03/23/25 09:36 Total Protein 6.4 gm/dl (6.0-8.3) 03/23/25 09:36 Albumin 3.4 gm/dl (3.4-5.0) 03/23/25 09:36 Globulin 3.0 gm/dl (2.5-4.0) 03/23/25 09:36 Albumin/Globulin Ratio 1.1 (0.9-2) 03/23/25 09:36 Procalcitonin 0.71 ng/ml (0-0.5) H 03/26/25 05:56 TSH 12.592 uIu/ml (0.300-4.500) H 03/23/25 14:36 Free T4 0.92 ng/dl (0.61-1.60) 03/26/25 05:56 Free T3 1.34 pg/ml (2.3-4.2) L 03/26/25 05:56 Urine Color Dark Yellow 03/23/25 12:17 Urine Appearance Cloudy (Clear) A 03/23/25 12:17 Urine pH 6.0 (4.5-7.5) 03/23/25 12:17 Ur Specific [place] 1.026 (1.000-1.030) 03/23/25 12:17 Urine Protein 2+ (Negative) H 03/23/25 12:17 Urine Glucose (UA) Negative (Negative) 03/23/25 12:17 Urine Ketones Trace (Negative) H 03/23/25 12:17 Urine Blood Negative (Negative) 03/23/25 12:17 Urine Nitrite Negative (Negative) 03/23/25 12:17 Urine Bilirubin Negative (Negative) 03/23/25 12:17 Urine Urobilinogen Negative (Negative) 03/23/25 12:17 Ur Leukocyte Esterase Trace (Negative) H 03/23/25 12:17 Urine WBC (Auto) 0-5 /hpf (0-5) 03/23/25 12:17 Urine RBC (Auto) 0-2 /hpf (0-2) 03/23/25 12:17 U Hyaline Cast (Auto) 0-2 /lpf (0-2) 03/23/25 12:17 U Epithel Cells (Auto) 6-10 /hpf (0-2) H 03/23/25 12:17 Urine Bacteria (Auto) 1+ (None Seen) H 03/23/25 12:17 Urine Comment 03/23/25 12:17 Nasal Screen MRSA (PCR) Negative (Negative) 03/23/25 Unknown Adenovirus (PCR) Not Detected (NotDetected) 03/23/25 10:03 B. pertussis DNA (PCR) Not Detected (NotDetected) 03/23/25 10:03 B.parapertussis DNA PCR Not Detected (NotDetected) 03/23/25 10:03 C. pneumoniae DNA (PCR) Not Detected (NotDetected) 03/23/25 10:03 Coronavirus OC43 (PCR) Not Detected (NotDetected) 03/23/25 10:03 Coronavirus HKU1 (PCR) Not Detected (NotDetected) 03/23/25 10:03 Coronavirus 229E (PCR) Not Detected (NotDetected) 03/23/25 10:03 SARS-CoV-2 (PCR) Not Detected (NotDetected) 03/23/25 10:03 Coronavirus NL63 (PCR) Not Detected (NotDetected) 03/23/25 10:03 Human Metapneumovir PCR Not Detected (NotDetected) 03/23/25 10:03 Influenza Type A (PCR) Not Detected (NotDetected) 03/23/25 10:03 Influenza Type B (PCR) Not Detected (NotDetected) 03/23/25 10:03 M. pneumoniae (PCR) Not Detected (NotDetected) 03/23/25 10:03 Parainfluenza 1 (PCR) Not Detected (NotDetected) 03/23/25 10:03 Parainfluenza 2 (PCR) Not Detected (NotDetected) 03/23/25 10:03 Parainfluenza 3 (PCR) Not Detected (NotDetected) 03/23/25 10:03 Parainfluenza 4 (PCR) Not Detected (NotDetected) 03/23/25 10:03 RSV (PCR) Not Detected (NotDetected) 03/23/25 10:03 Entero/Rhino (PCR) Not Detected (NotDetected) 03/23/25 10:03 Impressions Chest X-Ray 03/27/25 07:30 EXAM: XR chest 1V portable CLINICAL HISTORY: CHF TECHNIQUE: An X-ray image of the chest was obtained in the AP projection. COMPARISON: 10/11/2023 CR. FINDINGS: Pulmonary Parenchyma: There are prominent interstitial markings bilaterally. There are small bilateral pleural effusions, more on the right. These are new findings. There is no evidence of consolidation, collapse, or focal opacities. Heart and Mediastinum: There is mild cardiomegaly, possibly related to the AP projection. The aorta is ectatic. There is no mediastinal widening or masses. There is no hilar or mediastinal lymphadenopathy. A cardiac pacemaker is identified in the left chest wall, with its leads in the right atrium and right ventricle. Bony Thorax: The bony thorax appears intact without fractures or deformities. There is a left shoulder orthopedic replacement. Soft Tissues: The soft tissues overlying the chest wall are unremarkable. IMPRESSION: 1. Small bilateral pleural effusions, more on the right. These are new findings. 2. There are prominent interstitial markings bilaterally, which may represent mild vascular congestion. Recommend clinical correlation. Electronically signed by Jero Jacobsen 03-27-2025 08:04 AM PG Care Time/CCT Total # of Minutes Spent Total Time Spent with Patient: Total time spent is greater than 50% in coordination of care (as documented) at patient's floor/unit and/or counseling patient: Coding Level of Care Code 09770 SUB INP/OBS CARE 2/35MIN Diagnoses Pulmonary edema J81.1 Hypertensive emergency I16.1"
[2025-03-28] MEDS: BUMETANIDE 1 MG TAB PO SCH (08:14)
[2025-03-28 08:59] LABS: Hematocrit (blood only) 35.5 % (37.0-47.0); Hemoglobin 11.8 g/dl (12.0-16.0); Mean Corpuscular Hemoglobin 33.1 pg (25.0-34.0); Mean Corpuscular Volume 99.7 fL (80.0-100.0); Platelet Count 246 K/uL (130-400); RDW Standard Deviation 70.0 fL (36.4-46.3); Red Blood Count 3.56 M/uL (4.20-5.40); White Blood Count 3.37 K/ul (4.8-10.8)
[2025-03-28 09:17] LABS: Anion Gap 9.0 (3-11); Blood Urea Nitrogen 42.0 mg/dl (6-23); Calcium 9.1 mg/dl (8.6-10.3); Carbon Dioxide 28.0 mmol/L (21-32); Chloride 102.0 mmol/L (98-107); Creatinine Clr Calc Pharmacy 21.3 ml/min; Glucose 139.0 mg/dl (70-99(Fasting)); Potassium 4.4 mmol/L (3.5-5.1); Sodium 139.0 mmol/L (136-145)
[2025-03-28 11:11] VITALS: BP 130/91; RESP 20; TEMP 98.1
[2025-03-28 13:08] VITALS: O2SAT 98
--- NOTE | 2025-03-28 14:39 | Discharge Summary ---
Discharge Summary Date of Service March 28, 2025 Principal Dx & Hospital Course #1 = Principal Diagnosis (1) Pulmonary edema: (2) Hypertensive emergency: Plan This is a 79 year old female with past medical history of HFmEF, HTN, ISABELLE, MM who presented to the ED on 03/23/2025 secondary to SOB. In the ER, noted to have hypertensive emergency leading to type 2 VA. Initially required ICU stsay for nicardipine drip. After about 24 hours, patient was downgraded from the ICU on 03/24. For the blood pressure, hydralazine was started. Troponin was elevated secondary to the high blood pressure; and trended downwards from there. Patient was short of breath on admission likely due to pulmonary edema, patient was aggressively diuresed. Echo was done on 03/26/25, showed a mild to moderate reduction in systolic function (LVEF of 40-45%) with global hypokinesis. cardiology saw patient and agreed with the IV Bumex; recommendation was to change home Bumex dose from 1mg to 2mg daily. Due to the diuresis, creatinine increased to above baseline; leading to an JULIO --> when the Bumex was changed from IV to PO, creatinine improved closer to baseline. Also to note, TSH was noted to be elevated at >10; synthroid dose was changed from 137mcg --> 150mcg. #Hypertension Emergency | Type 2 NSTEMI w/ BP in ED 193/126; Home Health Care Case Manager contacted & patient was placed on Nicardipine drip for ~ 24 hours w/ improvement of pressures. She was downgraded from the ICU on 03/24. BP spiked overnight to 03/25 @ 183/91 w/ associated chest tightness. Trop peaked at 66 & has since downtrended to 49.0 Hydralazine increased to 50mg TID initiated 03/26 , continue to monitor. 03/27 - BP remains high >160/100. giving one dose of pain medications as she has had bad back pain #Acute on Chronic CHF | A-fib | s/p AICD Home medications include: Bumex 1mg daily; Coreg 6.25mg BID; Digoxin 125mcg MWF; & Eliquis 5mg BID Continue Bumex 1mg IV BID--> improvement of symptoms + weight continues to decrease appropriately. Consider increasing Bumex to 2mg once daily on discharge, renal function has remained stable in the setting of aggressive diuresis. Pacemaker interrogation pending Monitor I&O's. daily weights, standing preferred. On room air & no longer short of breath. Follows w/ cardiology & CHF clinic outpatient. 03/27 - patient feeling better, creatinine rising; stop IV bumex; change to PO Bumex to 2mg daily. JULIO superimposed on CKD stage 4 - creatinine baseline appears to be around 2.4 - 03/27 - creatinine up to 2.87 - stop IV diuresis, switch to oral Bumex - avoid nephrotoxic agents if able #hypothyroidism Synthroid 137 mcg --> increased to Synthroid 150mcg daily. TSH elevated at 12.592; Free T4 WNL, Free T3 low at 1.34 #Asthma Continue home inhalers stable, no wheezing. #Multiple Myeloma actively undergoing chemotherapy outpatient continue to follow w/ oncology CBC stable. #Type 2 Diabetes Outpatient regimen: Trulicity - hold while inpatient. A1c 09/09/24: 5.7%; repeat in AM SSI coverage while inpatient. #mood disorder- Cymbalta 60mg, Remeron 7.5 qHS #GERD-Protonix 40mg daily #hypomagnesemia - mag stable at 2.3; continue magnesium oxide 400mg tablet #diarrhea - PRN cholestyramine daily DVT prophylaxis: Eliquis Code: full Admission HPI Per Admitting Provider Barbara Vergara is a 79 yo woman with PMh of CKD stage 4, non-ischemic cardiomyopathy; A-fib, multiple myeloma, asthma, cecal volvulus s/p ileocecectomy, HTN, type 2 diabetes, psoriatic arthritis, transaminitis. she is on room air at baseline, on 03/23/2025, she was having sudden onset shortness of breath, came to our ED with tachypnea with RR of 32; and found to has pulmonary edema, hypertensive emergency with SBP of 193/125, she's need bipap treatment our ED colleague started her on Bumex IV and nitro in addition, she receive IV steroid. she was started on cefepime 48 hours for empiric coverage. patient denied sick contact; denied chest pain, muscle achiness. no abdominal pain she's is on prednisone 5mg and revlimid 10mg capsule for her myeloma she does not has any children, she is full code Discharge Exam VITALS: Reviewed. WEIGHT/BMI reviewed. GEN: Healthy appearing, well-developed, NAD. PSYCH: Good Judgment. AOx3. Normal memory, mood, and affect. HEENT -Head: NC/AT; -Eyes: PERRL, EOMI. No discharge or redness; -Ears: External ears are normal. Normal TMs. -Nose: Normal nares. -Mouth and throat: MMM. Normal gums, mucosa, palate,. Good dentition. NECK: Supple, with no masses. CV: RRR, no m/r/g. LUNGS: CTAB, no w/r/c. ABD: Soft, NT/ND, NBS, no masses or organomegaly. : N/A SKIN: Warm, well perfused. No skin rashes or abnormal lesions. MSK: No deformities, Normal gait. EXT: No clubbing, cyanosis, or edema. NEURO: Ambulating with no limitations. Normal muscle strength and tone. No focal deficits. Discharge Plan Discharge Items Patient Disposition: Home - Self-Care Reason For Visit: PUL EDEMA, RESP FAILURE, LASIX ALLERGY Discharge Diagnosis: Hypertensive Emergency Type 2 VA Acute on Chronic HFmEF/Pulmonary Edema JULIO superimposed on CKD stage 4 Condition on Discharge: Fair Activity: Resume your previous activity Non-emergency contact: Primary Care Provider Call non-emergency contact if: you have any medication questions, your symptoms worsen, your pain is not controlled, your pain is worsening, your pain is unusual for you and your pain is concerning for you Follow-up/Referrals: Jigna Jovel DO [Primary Care Provider] - 04/04/25 1:30 pm (Follow up scheduled on 04/04/25 at 1:30 with Michelle Delatorre) Diet: Heart Healthy Addtl Attending Provider Instructions: Please follow-up with Jigna Jovel DO in 5-7 days Pending Studies at Discharge: No Stand-Alone Forms: My [employer], Smoking Cessation Medications and DC Order Prescriptions: New carvedilol 12.5 mg Tablet 12.5 mg PO BIDM 30 Days Qty: 60 1RF levothyroxine [Synthroid] 150 mcg Tablet 150 mcg PO DAILYBB 30 Days Qty: 30 1RF bumetanide 1 mg Tablet 2 mg PO QAM 30 Days Qty: 60 1RF hydralazine 50 mg Tablet 50 mg PO TID 30 Days Qty: 90 1RF Continued (DME) Hospital Bed [facility] [place] See Rx Instructions .Route Qty: 1 0RF Rx Instructions: Semi-electric hospital bed with mattress and side rails (DME) Accu-Chek Garima Plus test strp Strip See Rx Instructions .ROUTE .MEDSUPPLY Qty: 100 3RF Rx Instructions: Check blood sugars once PRN azelastine 137 mcg (0.1 %) aerosol,spray 2 spray INTRANASAL DAILY PRN (Reason: ALLERGIES) Qty: 30 0RF (DME) FreeStyle Rafa 3 Plus Sensor Device See Rx Instructions .Route Qty: 2 11RF Rx Instructions: Change sensor every 15 days potassium chloride [Klor-Con M20] 20 mEq tablet,ER particles/crystals 20 meq PO AMHS 90 Days Qty: 180 3RF duloxetine [Cymbalta] 60 mg capsule,delayed release(DR/EC) 60 mg PO QAM Qty: 90 3RF fluticasone furoate-vilanterol [Breo Ellipta] 100-25 mcg/dose blister with device 1 inh inhalation DAILY Qty: 60 2RF Trulicity 1.5 mg/0.5 mL pen injector 1.5 mg subcut WK Qty: 2 3RF Rx Instructions: Inject 1.5 mg into the abdomen once weekly. (DME) pen needle, diabetic 32 gauge x 5/32" needle See Rx Instructions .Route Qty: 100 11RF Rx Instructions: use for injections 3x daily, change with each use Eliquis 5 mg tablet 5 mg PO BID Qty: 180 3RF acyclovir 400 mg tablet 400 mg PO BID (DME) blood-glucose meter [Accu-Chek Garima Plus Meter] [facility] [place] See Rx Instructions .ROUTE .MEDSUPPLY Rx Instructions: Used to check blood sugars once PRN dexamethasone 4 mg tablet 4 mg PO DIRECTED PRN (Reason: APPOINTMENTS) Rx Instructions: ONCE MONTHLY WITH INJECTIONS amoxicillin 500 mg capsule 1,000 mg PO ONCE PRN (Reason: prior to dental work) Qty: 2 3RF digoxin 125 mcg (0.125 mg) tablet 125 mcg PO .MW Qty: 90 3RF pantoprazole 40 mg tablet,delayed release (DR/EC) 40 mg PO DAILY Qty: 90 3RF PreserVision AREDS 4,296 mcg-226 mg-90 mg capsule 1 cap PO BID albuterol sulfate 90 mcg/actuation HFA aerosol inhaler 2 inh inhalation Q4H PRN (Reason: shortness of breath or wheezing) Qty: 8.5 0RF omega 3-[id number]-wgx-fish oil [Fish Oil] 1,000 mg (120 mg-180 mg) Capsule 1,000 mg PO AMHS magnesium oxide 400 mg magnesium Tablet 400 mg PO AMHS acetaminophen [Tylenol Arthritis Pain] 650 mg Tablet Extended Release 1,300 mg PO AMHS mirtazapine 7.5 mg tablet 7.5 mg PO HS ferrous sulfate 325 mg (65 mg iron) tablet 325 mg PO QAM PRN (Reason: Other) albuterol sulfate 2.5 mg /3 mL (0.083 %) Solution For Nebulization 2.5 mg INHALATION Q4H PRN (Reason: Wheezing) cholestyramine (with sugar) [Questran] 4 gram powder 1 ea PO BID PRN (Reason: Diarrhea) Rx Instructions: 4 gm doses ondansetron 4 mg Tablet,Disintegrating 4 mg PO Q6 PRN (Reason: chemo associated n/v) lenalidomide [Revlimid] 10 mg capsule 10 mg PO UD Rx Instructions: takes 3 weeks, off 1 week calcium carbonate-vitamin D3 600 mg-10 mcg (400 unit) tablet 1 tab PO BID prednisone 5 mg tablet 5 mg PO PM triamcinolone acetonide 0.1 % cream 1 applic topical BID PRN (Reason: otjer) Discontinued levothyroxine [Levoxyl] 137 mcg tablet 137 mcg PO QAM Qty: 30 5RF Rx Instructions: sublingual carvedilol [Coreg] 6.25 mg tablet 6.25 mg PO BID Qty: 60 2RF Rx Instructions: must administer with a meal/food bumetanide 1 mg tablet 1 mg PO QAM Qty: 90 3RF menthol-zinc oxide [Calmoseptine] 1 dose topical UD PRN (Reason: Cold Symptoms) Discharge Orders: Discharge Order- CHF (Routine); Ordered 03/28/25 Ordered By: Brittany Martínez/Other Patient Handouts: High Blood Pressure Risk Factors Admission Data Admit Date/Time: 03/23/25 12:52 Attending Provider: Brittany Pimentel Admit Provider: Bettye Yin Primary Care Provider: Jigna Jovel Other Providers: Bettye Yin; Chas Leonard Other Interventions: Discharge Summary Assessment (RN) Last Done: 03/28/25 14:18 Hospital Stay Data Consultations 03/23/25 12:38 ED Decision to Admit Stat 03/23/25 13:50 Consult Home Health Care Case Manager Routine Pending Results Patient Have Any Pending Studies at Discharge: No Discharge Instructions Given to Patient (Per Discharging Provider) Please follow-up with Jigna Jovel, in 5-7 days Home Health Attestation I certify that this patient is under my care and that I, or a physicians multimedia production assistant working with me, had a face to-face encounter that meets the home health [id number]-mi-bumn encounter requirements with this patient. The encounter with the patient was in whole, or in part, for the following medical condition, which is the primary reason for home health care (list medical condition): I certify that, based on my findings, the following services are medically necessary home health services: My clinical findings support the need for the above services because: Further, I certify that my clinical findings support that this patient is homebound (i.e. absences from home require considerable and taxing effort and are for medical reasons or nondenominational services or infrequently or of short duration when for other reasons) because: Certification for Home Health Services: Based on the above findings, I certify that this patient is confined to the home and needs intermittent alf care, physical therapy and/or speech therapy or continues to need occupational therapy. The patient is under my care, and I have initiated the establishment of the plan of care. This patient will be followed by a physician who will periodically review the plan of care. Total Time Total Time Spent Total Time Spent (In Minutes): 45 minutes Coding Level of Care Code 63489 INP/OBS DISCH >30 MIN Diagnoses Pulmonary edema J81.1 Hypertensive emergency I16.1 Time Spent (min) 45
[2025-03-28 15:06] VITALS: PULSE 70
== END 2025-03-28 15:23 | disposition home or self-care (01) | DRG 280 ==
LOC: ED 09:24 → SUATTDRO 12:52 → 1E 12:52 → 2E 03-24 14:32

== ENCOUNTER 2025-05-06 15:46 | Inpatient (IN) ==
--- NOTE | 2025-05-06 16:16 | Emergency Department Note ---
Impression & Plan Acute exacerbation of CHF (congestive heart failure), Pulmonary edema, CKD (chronic kidney disease), Transaminitis ED Provider Note NAME: FRANCA LEAL AGE: 79 SEX: F : 1945 ARRIVES VIA: Walk-In INFORMANT: Patient, friend ED PROVIDER(S): Edwar Underwood DO CHIEF COMPLAINT: Dyspnea HPI: This is a 79-year-old female with the PMHx of HFmrEF s/p ICD, pAfib on chronic anticoagulation with Apixaban, asthma, HTN, HLD, ISABELLE, MM and hypothyroidism presenting to [facility] for further evaluation of dyspnea. Patient is accompanied by her friend who provide additional history. Patient is reporting dyspnea. She states has been ongoing for the last few weeks and worsening. She states today that she had chest pain. Reports central chest pain that is a pressure-like sensation. Has a numbness sensation that radiates into her jaw. Patient states that she gained approximately 14 pounds. She states that she has increased her diuretics to 3 times daily. Patient states that she is still up 6 to 8 pounds over her normal baseline weight. She has significant dyspnea. Reporting orthopnea. Reports lower extremity swelling. They deny fever or chills. No cough or congestion. They deny abdominal pain, nausea and vomiting. No urinary complaints. No recent changes in bowel movements. Patient denies recent changes in medications or OTC supplements. Patient offers no other complaints, today. ADDITIONAL HISTORY OBTAINED: Per HPI Chronic Medical/Social Conditions Affecting Care: Per HPI PAST MEDICAL HISTORY: See Below PAST SURGICAL HISTORY: See Below FAMILY HISTORY: See Below SOCIAL HISTORY: See Below HOME MEDICATIONS: See Below ALLERGIES: See Below VITALS: See Below PHYSICAL EXAMINATION: GENERAL: Sitting up in bed, alert, chronically ill appearing, well nourished, no distress, non-toxic EYE EXAM: normal conjunctiva. OROPHARYNX: no exudate, no erythema, lips, buccal mucosa, and tongue normal and mucous membranes are moist NECK: supple, no nuchal rigidity, no adenopathy, non-tender LUNGS: Clear to auscultation. Normal chest wall mechanics HEART: no murmurs, regular rate, regular rhythm ABDOMEN: abdomen soft, non-tender, no masses, no rebound or guarding. BACK: Back is symmetrical on inspection and there is no deformity, no midline tenderness, no CVA tenderness. SKIN: no rashes and no bruising UPPER EXTREMITIES: upper extremities are grossly normal. LOWER EXTREMITIES: 2+ lower extremity edema bilaterally. NEURO EXAM: Normal sensorium, GCS 15, normal speech, no gross weakness of arms, no gross weakness of legs. MEDICAL DECISION MAKING: Differential diagnoses includes but not limited to ACS, unstable angina, dysrhythmia, PNA, hypervolemia/pulmonary edema, CHF exacerbation, COPD exacerbation, PE, pneumothorax, pericardial effusion, cardiac tamponade, anxiety/psychogenic, viral URI In summary, this is a 79 year old female who presented with dyspnea. Differential as above. Nursing notes and pertinent past medical records reviewed. Vital signs reviewed and the patient is intermittently tachycardic but otherwise afebrile and HDS. History and presentation revealed extensive cardiovascular history. Having dyspnea and chest pain today. Patient recently being seen by her outpatient PCP with increasing her diuretics given pulmonary edema and weight gain. Patient states that this does not seem to work. She states that she noted that her urine output did not seem sufficient. Patient states she continues with her symptoms. Patient recently admitted for hypertensive emergency with NSTEMI. Patient was on an antihypertensive drip and received IV diuresis. Reviewed documentation and discharge summary. Physical examination revealed As above. As a result of my initial evaluation, IV access was established and the patient was placed on CCRM. Therapeutics ordered include loading dose of ASA. Patient symptoms presentation today are highly suspicious of ongoing CHF. Patient does not appear overtly decompensated at this time. No significant respiratory distress or oxygen requirement. Will plan to obtain labs as well as a chest x-ray. Patient will likely need IV diuresis. Pulmonary embolism was considered but felt to be unlikely given compliance with a/c. Diagnostics interpreted by me include EKG and cardiac monitoring as listed below: -Cardiac Monitoring: An order was placed for continuous cardiac monitoring. The monitor shows a rate of 60-100s with regular rhythm. -ECG: AV dual paced rhythm at [address] segment changes to suggest STEMI. No interval changes. Patient completed laboratory studies and imaging. Results independently interpreted by me are chronic anemia. No leukocytosis. VBG shows no CO2 retention or acidosis. Mild uptrend of the patient's kidney function but comparable to baseline. Patient does have a transaminitis that is stable. BNP is elevated. Troponin mildly elevated but similar to prior. Hypoalbuminemia present. Patient's chest x-ray shows evidence of interstitial edema and pulmonary edema. Given this as well as her severe dyspnea, I will plan to begin IV diuresis. Patient was given 1 mg IV push Bumex. Patient has been increasing her diuretics at home with her outpatient providers but fails to improve. Given failure of outpatient diuresis, will plan to admit to the hospital. Ultimately, the decision was made to admit the patient for mild CHF exacerbation with pulmonary edema. I discussed the case with the hospitalist service via telephone/TigerText and they are agreeable to admit the patient to their services. Based on the above, including the patient's age, coexisting illnesses, labs, imaging, and exam findings the decision to treat as an inpatient. I discussed the patient with the hospitalist team who recommended admission to their services. They received the medications, treatments, interventions indicated above and their condition remained stable. I discussed my findings with the patient and their family and they understand and agree with the treatment plan. All patient / family questions were answered to their satisfaction. Consults/Care Managements Discussions: Per [facility] ER treatment provided: See above Procedures: None Critical Care: None The chart was completed utilizing [employer] Speech voice recognition software. Grammatical errors, random word insertions, pronoun errors, and incomplete sentences are an occasional consequence of this system due to software limitations, ambient noise, and hardware issues. Any formal questions or concerns about the content, text, or information contained within the body of this dictation should be directly addressed to the physician for clarification. Past Med/Surg History Problem List (Updated 05/06/25 @ 17:26 by Edwar Underwood DO) Transaminitis (Acute) CKD (chronic kidney disease) (Acute) Pulmonary edema (Acute) Acute exacerbation of CHF (congestive heart failure) (Acute) Heart failure with reduced ejection fraction Unspecified atrial fibrillation Elevated liver enzymes Cardiomyopathy Pulmonary edema Elevated prolactin level Elevated TSH Elevated brain natriuretic peptide (BNP) level (Acute) Elevated troponin (Acute) Acute CHF (Acute) Acute hypoxemic respiratory failure (Acute) Acute dyspnea (Acute) Hypertensive emergency Restrictive lung disease Lumbosacral radiculopathy Back pain at L4-L5 level Cellulitis of foot, left (Acute) Acute pain of left foot (Acute) Fusion of lumbar spine Sacroiliitis Iron deficiency Allergic asthma Dyslipidemia Oral lesion Adrenal incidentaloma Atrial flutter Multiple myeloma currently getting chemo On amiodarone therapy ICD (implantable cardioverter-defibrillator), biventricular, in situ Asthma Paroxysmal ventricular tachycardia Chronic anticoagulation (Acute) Psoriatic arthritis Lumbar canal stenosis GERD (gastroesophageal reflux disease) (Chronic) Hypothyroidism Spinal meningioma On c-spine- follows with [facility] neurosurgery specialist (Dr. Ken)- under surveillance/stable/no indication for surgical intervention, last seen Summer 2022 Medical History Heart failure with improved ejection fraction (HFimpEF) Hypertension Chronic kidney insufficiency Diabetes type 2, controlled CKD (chronic kidney disease) stage 4, GFR 15-29 ml/min Hx of sepsis Atrial flutter Asthma Multiple myeloma Mixed hearing loss, bilateral Allergic rhinitis Pulmonary nodule Vitamin D deficiency Depression Recurrent pleural effusion Post laminectomy syndrome Hx of colonic polyps Hx of pulmonary edema Hx of non-ST elevation myocardial infarction (NSTEMI) (~01/2023) Esophageal dysmotility Hiatal hernia intermediate frame tender current use of systemic steroids Obesity Schatzki's ring Peptic ulcer disease Irritable bowel syndrome Surgical History S/P right colectomy History of thoracentesis Hx of colonoscopy with polypectomy History of bone marrow biopsy (~04/2023) Hx of bilateral cataract extraction Presence of biventricular implantable cardioverter-defibrillator (ICD) History of laparoscopy (~06/2020) History of colectomy (~06/2020) History of total left hip arthroplasty (~12/2019) History of total hip arthroplasty (~2019) History of dilatation and curettage History of tooth extraction History of tonsillectomy and adenoidectomy History of cardiac cath History of arthroscopy Status post total replacement of left shoulder History of esophagogastroduodenoscopy (EGD) History of total abdominal hysterectomy and bilateral salpingo-oophorectomy History of arthroscopy of right shoulder (~09/2018) History of total knee arthroplasty History of foot surgery History of cholecystectomy History of lumbar fusion H/O thyroidectomy Family History Mother Arthritis Hypertension Father Lung cancer Hypertension Family/Other Family hx of colon cancer Unknown Allergies Breast cancer Hypertension Brother Cancer Heart disease Aunt Colorectal cancer Other No family history of adverse response to anesthesia No family history of bleeding disorder Denies family history of Ovarian cancer Prostate cancer Diabetes Hearing loss Myocardial infarction Stroke Asthma Social History Smoking Status: Never smoker Tobacco Type: Cigarettes Age Started Using Tobacco: 19; Age Quit Using Tobacco: 26; packs per day: 1; Second Hand Exposure: No; Do You Dip or Chew Tobacco: No; Hx Alcohol Use: No Hx Substance Use: No Preferred Language: Hebrew Communication Ability: Effective Visual Impairment: Limited Hearing Ability: Wireless Engineer Required: No Beliefs That Will Affect Care: None marital status: / Current Living Situation: Alone Current Living Situation Comment: home alone (house) current occupational status: retired current occupation: Retired How many Children do You have: 0 Feels Safe at Home: Yes Childhood Exposure to Second-Hand Smoke: Yes Diet: low salt and regular Diet Comment: Pre-diabetic caffeine: Yes Dental Care, Regularly: Yes Physical Activity Frequency: Does not Exercise Physical Activity Frequency Comment: Hip problems Seatbelt Use: always Sunscreen Use: No Assistive Devices: Cane, Scooter/Electric Scooter, Walker and Wheelchair Allergies Allergies Allergy/AdvReac Type Severity Reaction Status Date / Time codeine Allergy Severe Anaphylaxis Verified 04/06/25 11:25 blue dye Allergy Intermediate rash from Verified 04/06/25 11:25 "prep with blue dye" celecoxib [From Celebrex] Allergy Intermediate RASH Verified 04/06/25 11:25 cephalexin [From Keflex] Allergy Intermediate Rash Verified 04/06/25 11:25 hydrocodone Allergy Intermediate Rash Verified 04/06/25 11:25 Iodinated Contrast Media Allergy Intermediate RASH Verified 04/06/25 11:25 nickel Allergy Intermediate Rash Verified 04/06/25 11:25 oxycodone Allergy Intermediate Rash Verified 04/06/25 11:25 Sulfa (Sulfonamide Allergy Intermediate RASH TO Verified 04/06/25 11:25 Antibiotics) SULFA DRUGS tetracycline Allergy Intermediate RASH Verified 04/06/25 11:25 furosemide Allergy Unknown Verified 04/06/25 11:25 diclofenac AdvReac Intermediate CREATINE Verified 04/06/25 11:25 ELEVATION Home Meds Home Medications Medication Instructions Recorded Confirmed magnesium oxide 400 mg PO AMHS 07/26/18 05/02/25 omega 3-xhx-lfd-fish oil 1,000 mg 1,000 mg PO AMHS 07/26/18 05/02/25 (120 mg-180 mg) capsule (Fish Oil) blood-glucose meter (Accu-Chek 02/12/21 05/02/25 Garima Plus Meter) acetaminophen 650 mg 1,300 mg PO AMHS 01/20/23 05/02/25 tablet,extended release (Tylenol Arthritis Pain) mirtazapine 7.5 mg tablet 7.5 mg PO HS 07/01/23 05/02/25 calcium 600 mg (as 1 tab PO BID 10/11/23 05/02/25 carbonate)-vitamin D3 10 mcg (400 unit) tablet albuterol sulfate 2.5 mg/3 mL 2.5 mg inhalation Q4H PRN Wheezing 11/03/23 05/02/25 (0.083 %) solution for nebulization cholestyramine (with sugar) 4 gram 1 ea PO BID PRN Diarrhea 11/03/23 05/02/25 oral powder (Questran) ondansetron 4 mg disintegrating 4 mg PO Q6 PRN chemo associated n/v 11/03/23 05/02/25 tablet vitamins A,C,Z-vckg-gtznge 4,296 1 cap PO BID 02/11/24 05/02/25 mcg-226 mg-90 mg capsule (PreserVision AREDS) dexamethasone 4 mg tablet 4 mg PO DIRECTED PRN 03/03/24 05/02/25 APPOINTMENTS lenalidomide 10 mg capsule 10 mg PO UD 05/30/24 05/02/25 (Revlimid) ferrous sulfate 325 mg (65 mg 325 mg PO QAM PRN Other 08/29/24 05/02/25 iron) tablet acyclovir 400 mg tablet 400 mg PO BID 10/21/24 05/02/25 prednisone 5 mg tablet 5 mg PO PM 01/22/25 05/02/25 triamcinolone acetonide 0.1 % 1 applic topical BID PRN otjer 01/22/25 05/02/25 topical cream Previous Rx's Medication Instructions Recorded Hospital Bed Homecare (Hospital #1 ea 03/03/23 Bed) blood sugar diagnostic (Accu-Chek #100 ea 07/16/23 Garima Plus test strips) azelastine 137 mcg (0.1 %) nasal 2 spray intranasal DAILY PRN 09/30/23 spray ALLERGIES #30 mL amoxicillin 500 mg capsule 1,000 mg (2 x 500 mg) PO ONCE PRN 03/15/24 prior to dental work #2 caps FreeStyle Rafa 3 Plus Sensor #2 ea 03/21/24 (blood-glucose sensor) potassium chloride 20 mEq 20 meq PO AMHS 90 days #180 tabs 05/27/24 tablet,extended release(part/cryst) (Klor-Con M) duloxetine 60 mg capsule,delayed 60 mg PO QAM #90 caps 07/21/24 release (Cymbalta) Breo Ellipta 100 mcg-25 mcg/dose 1 inh inhalation DAILY #60 ea 09/22/24 powder for inhalation (fluticasone furoate-vilanterol) pantoprazole 40 mg tablet,delayed 40 mg PO DAILY #90 tabs 10/21/24 release dulaglutide 1.5 mg/0.5 mL 1.5 mg (0.5 mL) subcut WK #2 mL 11/18/24 subcutaneous pen injector ([facility]) pen needle, diabetic 32 gauge x #100 ea 12/01/24" apixaban 5 mg tablet (Eliquis) 5 mg PO BID #180 tabs 12/22/24 digoxin 125 mcg (0.125 mg) tablet 125 mcg PO .MWF Atrial 01/10/25 fibrillation #90 tabs albuterol sulfate 90 mcg/actuation 2 inh inhalation Q4H PRN shortness 02/09/25 aerosol inhaler of breath or wheezing #8.5 grams bumetanide 1 mg tablet 2 mg (2 x 1 mg) PO QAM 30 days #60 03/28/25 tabs carvedilol 12.5 mg tablet 12.5 mg PO BIDM 30 days #60 tabs 03/28/25 hydralazine 50 mg tablet 50 mg PO TID 30 days #90 tabs 03/28/25 levothyroxine 150 mcg tablet 150 mcg PO DAILYBB 30 days #30 tabs 03/28/25 (Synthroid) Results & Data (ED) Vital Signs Vital Signs - 24 hr 05/06/25 15:48 05/06/25 16:06 05/06/25 16:30 Temperature 36.8 C Temperature Source Temporal Artery Scan Pulse Rate 100 H 69 78 Pulse Rate from SpO2 Sensor 78 Respiratory Rate 20 14 Respiratory Effort / Characteristics Non-Labored Respiratory Depth Normal Blood Pressure 120/73 Blood Pressure Mean 88 Pulse Oximetry 96 96 Oxygen Delivery Method Room Air Room Air Sepsis Recent Fever Within 48 Hours No Sepsis New/Unexplained Change in Mental Status No Sepsis Action Taken by Nursing No Action Required 05/06/25 16:36 Temperature Temperature Source Pulse Rate Pulse Rate from SpO2 Sensor Respiratory Rate Respiratory Effort / Characteristics Respiratory Depth Blood Pressure Blood Pressure Mean Pulse Oximetry 97 Oxygen Delivery Method Room Air Sepsis Recent Fever Within 48 Hours Sepsis New/Unexplained Change in Mental Status Sepsis Action Taken by Nursing Laboratory Data 05/06/25 16:07 05/06/25 16:07 Lab Results 05/06/25 05/06/25 Range/Units 16:07 16:28 WBC 5.42 (4.8-10.8) K/ul RBC 3.32 L (4.20-5.40) M/uL Hgb 10.9 L (12.0-16.0) g/dL Hct 33.0 L (37.0-47.0) % MCV 99.4 (80.0-100.0) fL MCH 32.8 (25.0-34.0) pg MCHC 33.0 (32.0-36.0) g/dL RDW Std Deviation 66.4 H (36.4-46.3) fL RDW Coeff of Amrita 18.3 H (11.5-14.5) % Plt Count 230 (130-400) K/uL MPV 11.7 (9.4-12.4) fL Immature Gran % (Auto) 1.5 % Neut % (Auto) 61.2 % Lymph % (Auto) 19.9 % [place] % (Auto) 15.7 % Eos % (Auto) 1.1 % Baso % (Auto) 0.6 % Neut # (Auto) 3.32 (1.40-6.50) K/uL Lymph # (Auto) 1.08 L (1.20-3.40) K/uL [place] # (Auto) 0.85 H (0.11-0.59) K/uL Eos # (Auto) 0.06 (0.00-0.50) K/uL Baso # (Auto) 0.03 (0.00-0.20) K/uL Immature Gran # (Auto) 0.08 (0.01-0.20) K/uL PT 12.7 H (9.0-12.0) Seconds INR 1.2 H (0.9-1.1) APTT 32 H (21-31) Seconds PTT Ratio 1.2 VBG pH 7.46 H (7.36-7.41) VBG pCO2 43 (38-50) mmHg VBG pO2 37 mmHg VBG HCO3 31 mmol/L VBG O2 Saturation 65.3 % VBG Base Excess 6.0 mEq/L Sodium 140 (136-145) mmol/L Potassium 3.8 (3.5-5.1) mmol/L Chloride 103 (98-107) mmol/L Carbon Dioxide 25 (21-32) mmol/L Anion Gap 12 H (3-11) BUN 34 H (6-23) mg/dl Creatinine 2.32 H (0.6-1.2) mg/dl Est Cr Clr Drug Dosing 25.3 ml/min eGFR 21.01 BUN/Creatinine Ratio 14.7 (10-20) Glucose 86 (70-99(Fasting)) mg/dl Calcium 8.0 L (8.6-10.3) mg/dl Magnesium 1.9 (1.7-2.4) mg/dl Total Bilirubin 1.4 H (0.2-1.0) mg/dl AST 95 H (13-39) U/L ALT 83 H (7-52) U/L Alkaline Phosphatase 260 H (34-104) U/L Troponin I High Sens 49.0 H (0-14) pg/ml B-Natriuretic Peptide 620 H (0-100) pg/ml Total Protein 6.0 (6.0-8.3) gm/dl Albumin 3.2 L (3.4-5.0) gm/dl Globulin 2.8 (2.5-4.0) gm/dl Albumin/Globulin Ratio 1.1 (0.9-2) Administered Medications Discontinued Medications Aspirin (Aspirin Chew 324 Mg) 324 mg PO NOW STA Stop: 05/06/25 16:08 Last Admin: 05/06/25 16:38 Dose: 324 mg Documented By: CONRAD Discharge Plan Visit Data Chief Complaint: Shortness of Breath/Dyspnea Stated Complaint: SOB CHEST PAIN ED Provider: Edwar Underwood Discharge Problem: Acute exacerbation of CHF (congestive heart failure), Pulmonary edema, CKD (chronic kidney disease), Transaminitis Patient Disposition: Admitted As Inpatient Condition: Fair Forms Stand Alone Forms: My [facility] Prescriptions Prescriptions: No Action (DME) Hospital Bed [facility] See Rx Instructions .Route Qty: 1 0RF Rx Instructions: Semi-electric hospital bed with mattress and side rails (DME) Accu-Chek Garima Plus test strp Strip See Rx Instructions .ROUTE .MEDSUPPLY Qty: 100 3RF Rx Instructions: Check blood sugars once PRN azelastine 137 mcg (0.1 %) aerosol,spray 2 spray INTRANASAL DAILY PRN (Reason: ALLERGIES) Qty: 30 0RF (DME) FreeStyle Raaf 3 Plus Sensor Device See Rx Instructions .Route Qty: 2 11RF Rx Instructions: Change sensor every 15 days potassium chloride [Klor-Con M20] 20 mEq tablet,ER particles/crystals 20 meq PO AMHS 90 Days Qty: 180 3RF duloxetine [Cymbalta] 60 mg capsule,delayed release(DR/EC) 60 mg PO QAM Qty: 90 3RF fluticasone furoate-vilanterol [Breo Ellipta] 100-25 mcg/dose blister with device 1 inh inhalation DAILY Qty: 60 2RF Trulicity 1.5 mg/0.5 mL pen injector 1.5 mg subcut WK Qty: 2 3RF Rx Instructions: Inject 1.5 mg into the abdomen once weekly. (DME) pen needle, diabetic 32 gauge x 5/32" needle See Rx Instructions .Route Qty: 100 11RF Rx Instructions: use for injections 3x daily, change with each use Eliquis 5 mg tablet 5 mg PO BID Qty: 180 3RF acyclovir 400 mg tablet 400 mg PO BID (DME) blood-glucose meter [Accu-Chek Garima Plus Meter] [facility] See Rx Instructions .ROUTE .MEDSUPPLY Rx Instructions: Used to check blood sugars once PRN dexamethasone 4 mg tablet 4 mg PO DIRECTED PRN (Reason: APPOINTMENTS) Rx Instructions: ONCE MONTHLY WITH INJECTIONS amoxicillin 500 mg capsule 1,000 mg PO ONCE PRN (Reason: prior to dental work) Qty: 2 3RF digoxin 125 mcg (0.125 mg) tablet 125 mcg PO .MW Qty: 90 3RF pantoprazole 40 mg tablet,delayed release (DR/EC) 40 mg PO DAILY Qty: 90 3RF PreserVision AREDS 4,296 mcg-226 mg-90 mg capsule 1 cap PO BID albuterol sulfate 90 mcg/actuation HFA aerosol inhaler 2 inh inhalation Q4H PRN (Reason: shortness of breath or wheezing) Qty: 8.5 0RF omega 9-xqz-dld-fish oil [Fish Oil] 1,000 mg (120 mg-180 mg) Capsule 1,000 mg PO AMHS magnesium oxide 400 mg magnesium Tablet 400 mg PO AMHS acetaminophen [Tylenol Arthritis Pain] 650 mg Tablet Extended Release 1,300 mg PO AMHS mirtazapine 7.5 mg tablet 7.5 mg PO HS ferrous sulfate 325 mg (65 mg iron) tablet 325 mg PO QAM PRN (Reason: Other) albuterol sulfate 2.5 mg /3 mL (0.083 %) Solution For Nebulization 2.5 mg INHALATION Q4H PRN (Reason: Wheezing) cholestyramine (with sugar) [Questran] 4 gram powder 1 ea PO BID PRN (Reason: Diarrhea) Rx Instructions: 4 gm doses ondansetron 4 mg Tablet,Disintegrating 4 mg PO Q6 PRN (Reason: chemo associated n/v) lenalidomide [Revlimid] 10 mg capsule 10 mg PO UD Rx Instructions: takes 3 weeks, off 1 week carvedilol 12.5 mg Tablet 12.5 mg PO BIDM 30 Days Qty: 60 1RF levothyroxine [Synthroid] 150 mcg Tablet 150 mcg PO DAILYBB 30 Days Qty: 30 1RF bumetanide 1 mg Tablet 2 mg PO QAM 30 Days Qty: 60 1RF hydralazine 50 mg Tablet 50 mg PO TID 30 Days Qty: 90 1RF calcium carbonate-vitamin D3 600 mg-10 mcg (400 unit) tablet 1 tab PO BID prednisone 5 mg tablet 5 mg PO PM triamcinolone acetonide 0.1 % cream 1 applic topical BID PRN (Reason: otjer) Referrals Referrals: Jigna Jovel DO [Primary Care Provider] -
[2025-05-06 16:25] LABS: Hematocrit (blood only) 33.0 % (37.0-47.0); Hemoglobin 10.9 g/dL (12.0-16.0); Immature Granulocytes # (auto) 0.08 K/uL (0.01-0.20); Immature Granulocytes % (auto) 1.5 %; Mean Corpuscular Hemoglobin 32.8 pg (25.0-34.0); Mean Corpuscular Volume 99.4 fL (80.0-100.0); Platelet Count 230 K/uL (130-400); RDW Standard Deviation 66.4 fL (36.4-46.3); Red Blood Count 3.32 M/uL (4.20-5.40); White Blood Count 5.42 K/ul (4.8-10.8)
[2025-05-06 16:36] LABS: Base Excess VBG 6.0 mEq/L; HCO3 VBG 31 mmol/L; Oxygen Saturation VBG 65.3 %; PCO2 VBG 43 mmHg (38-50); PO2 VBG 37 mmHg; pH VBG 7.46 (7.36-7.41)
[2025-05-06] MEDS: ASPIRIN CHEW 324 MG PO STA (16:38)
[2025-05-06 16:49] LABS: Alanine Aminotransferase 83.0 U/L (7-52); Albumin Globulin Ratio 1.1 (0.9-2); Albumin Level 3.2 gm/dl (3.4-5.0); Alkaline Phosphatase 260.0 U/L (34-104); Anion Gap 12.0 (3-11); Bilirubin,Total 1.4 mg/dl (0.2-1.0); Blood Urea Nitrogen 34.0 mg/dl (6-23); Calcium 8.0 mg/dl (8.6-10.3); Carbon Dioxide 25.0 mmol/L (21-32); Chloride 103.0 mmol/L (98-107); Creatinine Clr Calc Pharmacy 25.3 ml/min; Globulin 2.8 gm/dl (2.5-4.0); Glucose 86.0 mg/dl (70-99(Fasting)); Magnesium 1.9 mg/dl (1.7-2.4); Potassium 3.8 mmol/L (3.5-5.1); Sodium 140.0 mmol/L (136-145); Total Protein 6.0 gm/dl (6.0-8.3)
[2025-05-06 17:07] LABS: INR 1.2 (0.9-1.1); Partial Thromboplastin Time 32 Seconds (21-31); Prothrombin Time 12.7 Seconds (9.0-12.0)
[2025-05-06] MEDS ORDERED: ONDANSETRON INJ 2 MG/ML 2 ML VIAL IV PRN (17:38)
[2025-05-06] MEDS ORDERED: ACETAMINOPHEN 325 MG TAB PO PRN (17:38)
[2025-05-06] MEDS ORDERED: MELATONIN 3 MG TAB PO PRN (17:38)
[2025-05-06] MEDS ORDERED: POLYETHYLENE (MIRALAX) 17 GM PACK PO PRN (17:38)
--- NOTE | 2025-05-06 18:01 | History & Physical Report ---
Date of Service May 06, 2025 Assessment & Plan (1) Acute exacerbation of CHF (congestive heart failure): (2) Transaminitis: (3) CKD (chronic kidney disease): (4) Unspecified atrial fibrillation: (5) Hypertension: (6) Acute dyspnea: Plan This is a 79 year old female with past medical history of CHF, A fib, HTN, GERD, multiple myeloma who presented to the ED on 05/06/2025 for SOB. while in the ED, she underwent a workup consistent with an acute exacerbation of her CHF. CXR is still pending but review of CXR from 05/02 reveals b/l pleural effusion R > L & congestion. CBC w/ hgb of 10.9, no leukocytosis/thrombocytopenia. INR elevated at 1.5 but is on chronic Eliquis the rapy. Electrolytes stable, renal function w/ creatinine of 2.32 which is within her baseline of 2.3-2.6. Troponin was elevated at 49 which has increased from where it was 43.3. BNP elevated at 620 but improved from 3 days ago. She does have stable transaminitis w/ a TB of 1.4, AST/ALT 95/83 and alk phos of 260 which appear similar to previous. She was given 324 mg of ASA & 1mg IV Bumex. 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 Is up ~ 8 pounds from baseline. Recently seen in cardiology office on 05/02, note reviewed. Home medications include: Bumex 1mg daily; Coreg12.5 mg BID; Digoxin 125mcg MWF; & Eliquis 5mg BID Troponin elevated at 49, monitor q6hs, repeat EKG prn for worsening chest pain. BNP elevated at 620 but has improved since 05/02 (889) CXR pending at time of admission, CXR from 05/02 w/ b/l pleural effusions R> L & congestion. Echo 03/26/2025 - EF 40-45% s/p 1mg IV bumex in ED --> continue 1mg Bumex BID17 dosing, monitor I&O's, daily standing weights. Continue Carvedilol, Digoxin, Eliquis Follows w/ cardiology & CHF clinic outpatient. #Transaminitis has been having ongoing transaminitis outpatient thought to be related to amiodarone which she is no longer taking. LFTs on admission w/ TB of 1.4, AST/ALT 95/83, and alk phos of 260 Recommended US to eval for ascites & transaminitis but patient denied at time of admission,will continue to monitor LFTs and reassess if they continue to rise. #hypothyroidism Synthroid 150 mcg TSH elevated at 12.592 from 02/2025, repeat TSH, Free T4/T3 ordered for AM. #Asthma Continue home inhalers stable, no wheezing. #Multiple Myeloma actively undergoing chemotherapy outpatient CBC w/ hgb of 10.9, continue to monitor. on chronic prednisone therapy, stress dose if needed. Monitor BP continue to follow w/ oncology #CKD stage 4 creatinine baseline of 2.3-2.6, within baseline at time of admission of 2.32 avoid nephrotoxic agents, renally dose when necessary follows with nephrology outpatient #Type 2 Diabetes Outpatient regimen: Trulicity - hold while inpatient. A1c 03/2025: 5.7%; repeat in AM SSI coverage while inpatient. #HTN - normotensive at time of admission, Continue Hydralazine TID. #mood disorder- Cymbalta 60mg, Remeron 7.5 qHS #GERD-Protonix 40mg daily #hypomagnesemia - mag stable at 2.3; continue magnesium oxide 400mg tablet #diarrhea - PRN cholestyramine daily DVT prophylaxis: Eliquis Code: Full Case was discussed with Dr. Funk at time of admission. History of Present Illness Primary Care Provider: Jigna Jovel DO This is a 79 year old female with past medical history of CHF, A fib, HTN, GERD, multiple myeloma who presented to the ED on 05/06/2025 for SOB. Mike was seen & examined this evening. She states that she has had ongoing shortness of breath and weight gain outpatient. She was recently seen by cardiology on 05/02 who ordered labs and recommended she take an additional dose of Bumex for 3 days in a row. She was able to lose ~ 8 of the 14 pounds that she had gained but she still persists with SOB and has had LE edema as well. Reports dyspnea on exertion & CP on exertion/deep inspiration. Reports she feels that she has fluid in her abdomen but refused an ultrasound at encounter. denies abdominal pain, nausea, vomiting, changes in bowels/bladder. does not want a jim catheter this admission if possible. while in the ED, she underwent a workup consistent with an acute exacerbation of her CHF. CXR is still pending but review of CXR from 05/02 reveals b/l pleural effusion R > L & congestion. CBC w/ hgb of 10.9, no leukocytosis/thrombocytopenia. INR elevated at 1.5 but is on chronic Eliquis therapy. Electrolytes stable, renal function w/ creatinine of 2.32 which is within her baseline of 2.3-2.6. Troponin was elevated at 49 which has increased from where it was 43.3. BNP elevated at 620 but improved from 3 days ago. She does have stable transaminitis w/ a TB of 1.4, AST/ALT 95/83 and alk phos of 260 which appear similar to previous. She was given 324 mg of ASA & 1mg IV Bumex. Code discussion did take place & she does confirm she is a full code. Allergies Allergy/AdvReac Type Severity Reaction Status Date / Time codeine Allergy Severe Anaphylaxis Verified 04/06/25 11:25 blue dye Allergy Intermediate rash from Verified 04/06/25 11:25 "prep with blue dye" celecoxib [From Celebrex] Allergy Intermediate RASH Verified 04/06/25 11:25 cephalexin [From Keflex] Allergy Intermediate Rash Verified 04/06/25 11:25 hydrocodone Allergy Intermediate Rash Verified 04/06/25 11:25 Iodinated Contrast Media Allergy Intermediate RASH Verified 04/06/25 11:25 nickel Allergy Intermediate Rash Verified 04/06/25 11:25 oxycodone Allergy Intermediate Rash Verified 04/06/25 11:25 Sulfa (Sulfonamide Allergy Intermediate RASH TO Verified 04/06/25 11:25 Antibiotics) SULFA DRUGS tetracycline Allergy Intermediate RASH Verified 04/06/25 11:25 furosemide Allergy Unknown Verified 04/06/25 11:25 diclofenac AdvReac Intermediate CREATINE Verified 04/06/25 11:25 ELEVATION Home Medications Medication Instructions Recorded Confirmed Type magnesium oxide 400 mg PO AMHS 07/26/18 05/02/25 History omega 0-oxg-mbf-fish oil 1,000 mg 1,000 mg PO AMHS 07/26/18 05/02/25 History (120 mg-180 mg) capsule (Fish Oil) blood-glucose meter (Accu-Chek 02/12/21 05/02/25 History Garima Plus Meter) acetaminophen 650 mg 1,300 mg PO AMHS 01/20/23 05/02/25 History tablet,extended release (Tylenol Arthritis Pain) Hospital Bed Homecare (Hospital #1 ea 03/03/23 05/02/25 Rx Bed) mirtazapine 7.5 mg tablet 7.5 mg PO HS 07/01/23 05/02/25 History blood sugar diagnostic (Accu-Chek #100 ea 07/16/23 05/02/25 Rx Garima Plus test strips) azelastine 137 mcg (0.1 %) nasal 2 spray intranasal DAILY PRN 09/30/23 05/02/25 Rx spray ALLERGIES #30 mL calcium 600 mg (as 1 tab PO BID 10/11/23 05/02/25 History carbonate)-vitamin D3 10 mcg (400 unit) tablet albuterol sulfate 2.5 mg/3 mL 2.5 mg inhalation Q4H PRN Wheezing 11/03/23 05/02/25 History (0.083 %) solution for nebulization cholestyramine (with sugar) 4 gram 1 ea PO BID PRN Diarrhea 11/03/23 05/02/25 History oral powder (Questran) ondansetron 4 mg disintegrating 4 mg PO Q6 PRN chemo associated n/v 11/03/23 05/02/25 History tablet vitamins A,C,M-vyci-lmcwqh 4,296 1 cap PO BID 02/11/24 05/02/25 History mcg-226 mg-90 mg capsule (PreserVision AREDS) dexamethasone 4 mg tablet 4 mg PO DIRECTED PRN 03/03/24 05/02/25 History APPOINTMENTS amoxicillin 500 mg capsule 1,000 mg (2 x 500 mg) PO ONCE PRN 03/15/24 05/02/25 Rx prior to dental work #2 caps FreeStyle Rafa 3 Plus Sensor #2 ea 03/21/24 05/02/25 Rx (blood-glucose sensor) potassium chloride 20 mEq 20 meq PO AMHS 90 days #180 tabs 05/27/24 05/02/25 Rx tablet,extended release(part/cryst) (Klor-Con M) lenalidomide 10 mg capsule 10 mg PO UD 05/30/24 05/02/25 History (Revlimid) duloxetine 60 mg capsule,delayed 60 mg PO QAM #90 caps 07/21/24 05/02/25 Rx release (Cymbalta) ferrous sulfate 325 mg (65 mg 325 mg PO QAM PRN Other 08/29/24 05/02/25 History iron) tablet Breo Ellipta 100 mcg-25 mcg/dose 1 inh inhalation DAILY #60 ea 09/22/24 05/02/25 Rx powder for inhalation (fluticasone furoate-vilanterol) acyclovir 400 mg tablet 400 mg PO BID 10/21/24 05/02/25 History pantoprazole 40 mg tablet,delayed 40 mg PO DAILY #90 tabs 10/21/24 05/02/25 Rx release dulaglutide 1.5 mg/0.5 mL 1.5 mg (0.5 mL) subcut WK #2 mL 11/18/24 05/02/25 Rx subcutaneous pen injector ([facility]) pen needle, diabetic 32 gauge x #100 ea 12/01/24 05/02/25 Rx 5/32" apixaban 5 mg tablet (Eliquis) 5 mg PO BID #180 tabs 12/22/24 05/02/25 Rx digoxin 125 mcg (0.125 mg) tablet 125 mcg PO .MWF Atrial 01/10/25 05/02/25 Rx fibrillation #90 tabs prednisone 5 mg tablet 5 mg PO PM 01/22/25 05/02/25 History triamcinolone acetonide 0.1 % 1 applic topical BID PRN otjer 01/22/25 05/02/25 History topical cream albuterol sulfate 90 mcg/actuation 2 inh inhalation Q4H PRN shortness 02/09/25 05/02/25 Rx aerosol inhaler of breath or wheezing #8.5 grams bumetanide 1 mg tablet 2 mg (2 x 1 mg) PO QAM 30 days #60 03/28/25 05/02/25 Rx tabs carvedilol 12.5 mg tablet 12.5 mg PO BIDM 30 days #60 tabs 03/28/25 05/02/25 Rx hydralazine 50 mg tablet 50 mg PO TID 30 days #90 tabs 03/28/25 05/02/25 Rx levothyroxine 150 mcg tablet 150 mcg PO DAILYBB 30 days #30 tabs 03/28/25 05/02/25 Rx (Synthroid) Past Med/Surg History Problem List (Updated 05/06/25 @ 17:26 by Edwar Underwood DO) Transaminitis (Acute) CKD (chronic kidney disease) (Acute) Pulmonary edema (Acute) Acute exacerbation of CHF (congestive heart failure) (Acute) Heart failure with reduced ejection fraction Unspecified atrial fibrillation Elevated liver enzymes Cardiomyopathy Pulmonary edema Elevated prolactin level Elevated TSH Elevated brain natriuretic peptide (BNP) level (Acute) Elevated troponin (Acute) Acute CHF (Acute) Acute hypoxemic respiratory failure (Acute) Acute dyspnea (Acute) Hypertensive emergency Restrictive lung disease Lumbosacral radiculopathy Back pain at L4-L5 level Cellulitis of foot, left (Acute) Acute pain of left foot (Acute) Fusion of lumbar spine Sacroiliitis Iron deficiency Allergic asthma Dyslipidemia Oral lesion Adrenal incidentaloma Atrial flutter Multiple myeloma currently getting chemo On amiodarone therapy ICD (implantable cardioverter-defibrillator), biventricular, in situ Asthma Paroxysmal ventricular tachycardia Chronic anticoagulation (Acute) Psoriatic arthritis Lumbar canal stenosis GERD (gastroesophageal reflux disease) (Chronic) Hypothyroidism Spinal meningioma On c-spine- [place] [facility]Dr. Ken)- under surveillance/stable/no indication for surgical intervention, last seen Summer 2022 Medical History Heart failure with improved ejection fraction (HFimpEF) Hypertension Chronic kidney insufficiency Diabetes type 2, controlled CKD (chronic kidney disease) stage 4, GFR 15-29 ml/min Hx of sepsis Atrial flutter Asthma Multiple myeloma Mixed hearing loss, bilateral Allergic rhinitis Pulmonary nodule Vitamin D deficiency Depression Recurrent pleural effusion Post laminectomy syndrome Hx of colonic polyps Hx of pulmonary edema Hx of non-ST elevation myocardial infarction (NSTEMI) (~01/2023) Esophageal dysmotility Hiatal hernia 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 Obesity Schatzki's ring Peptic ulcer disease Irritable bowel syndrome Surgical History S/P right colectomy History of thoracentesis Hx of colonoscopy with polypectomy History of bone marrow biopsy (~04/2023) Hx of bilateral cataract extraction Presence of biventricular implantable cardioverter-defibrillator (ICD) History of laparoscopy (~06/2020) History of colectomy (~06/2020) History of total left hip arthroplasty (~12/2019) History of total hip arthroplasty (~2019) History of dilatation and curettage History of tooth extraction History of tonsillectomy and adenoidectomy History of cardiac cath History of arthroscopy Status post total replacement of left shoulder History of esophagogastroduodenoscopy (EGD) History of total abdominal hysterectomy and bilateral salpingo-oophorectomy History of arthroscopy of right shoulder (~09/2018) History of total knee arthroplasty History of foot surgery History of cholecystectomy History of lumbar fusion H/O thyroidectomy Family History Mother Arthritis Hypertension Father Lung cancer Hypertension Family/Other Family hx of colon cancer Unknown Allergies Breast cancer Hypertension Brother Cancer Heart disease Aunt Colorectal cancer Other No family history of adverse response to anesthesia No family history of bleeding disorder Denies family history of Ovarian cancer Prostate cancer Diabetes Hearing loss Myocardial infarction Stroke Asthma Social History Smoking Status: Never smoker Tobacco Type: Cigarettes Age Started Using Tobacco: 19; Age Quit Using Tobacco: 26; packs per day: 1; Second Hand Exposure: No; Do You Dip or Chew Tobacco: No; Hx Alcohol Use: No Hx Substance Use: No Preferred Language: Belarusian Communication Ability: Effective Visual Impairment: Limited Hearing Ability: Plating Inspector Required: No Beliefs That Will Affect Care: None marital status: / Current Living Situation: Alone Current Living Situation Comment: home alone (house) current occupational status: retired current occupation: Retired How many Children do You have: 0 Feels Safe at Home: Yes Childhood Exposure to Second-Hand Smoke: Yes Diet: low salt and regular Diet Comment: Pre-diabetic caffeine: Yes Dental Care, Regularly: Yes Physical Activity Frequency: Does not Exercise Physical Activity Frequency Comment: Hip problems Seatbelt Use: always Sunscreen Use: No Assistive Devices: Cane, Scooter/Electric Scooter, Walker and Wheelchair Physical Exam Physical Exam: General: NAD, VS: BP 120/73; P78; R14; T36.8C Resp: normal respiratory effort, lungs diminshed w/ rhonchi CV: RRR, no murmur, Abd: normal bowel sounds, non tender, soft Extremities: Moves all extremities, 1+ edema in b/l LE Neuro: A&O x3 Skin: intact, skin tear noted on RLE without erythema or exudate. appeared noninfectious Results & Data Results & Data Vital Signs (Past 12 Hours) Vital Signs Temp Pulse Resp BP Pulse Ox O2 Del Method 05/06/25 16:36 97 Room Air 05/06/25 16:30 78 14 96 Room Air 05/06/25 16:06 69 05/06/25 15:48 36.8 C 100 H 20 120/73 96 Room Air Code Status & VTE Plan VTE Prophylaxis Plan VTE Prophylaxis will be ordered: Yes Supervising Physician Co-Signing Physician Notes The patient was seen by me. The chart was reviewed. Case discussed with SILVANA Medley. Agree with assessment and plan PG Care Time/CCT Total # of Minutes Spent Total Time Spent with Patient: Total time spent is greater than 50% in coordination of care (as documented) at patient's floor/unit and/or counseling patient: Coding Level of Care Code 80127 INT INP/OBS CARE 3/75MIN Diagnoses Acute exacerbation of CHF (congestive heart failure) I50.9 Transaminitis R74.01 CKD (chronic kidney disease) N18.9 Unspecified atrial fibrillation I48.91 Primary hypertension I10 Hypertension type: primary hypertension Acute dyspnea R06.00 (5) Hypertension Hypertension type: primary hypertension Qualified Code(s): I10 - Essential (primary) hypertension
[2025-05-06] MEDS: BUMETANIDE 1 MG in SYRINGE 0 ML IV ONE (18:29)
--- NOTE | 2025-05-06 18:35 | XRay Report ---
COMPARISON: 05/02/2025 FINDINGS: HEART: The heart remains enlarged. Pacemaker in place. LUNGS: Grossly stable bilateral pleural effusions and bibasilar consolidations. No pneumothorax. MEEDIASTINUM: Unremarkable. BONES: Left shoulder replacement. OTHER: Unremarkable. IMPRESSION: Grossly stable bilateral pleural effusions and bibasilar consolidations. Electronically signed by Jabari Fragoso 05-06-2025 6:34 PM
[2025-05-06] MEDS ORDERED: CHOLESTYRAMINE LIGHT 4 GM PKT PO PRN (19:38)
[2025-05-06] MEDS: INSULIN ASPART PER UNIT CHARGE SC SCH (21:32)
[2025-05-06] MEDS: POTASSIUM CHLORIDE CRTAB 20 MEQ TABCR PO SCH (21:33)
[2025-05-06] MEDS: MIRTAZAPINE TAB 15 MG TAB PO SCH (21:33)
[2025-05-06] MEDS: APIXABAN 5 MG TABLET PO SCH (21:33)
[2025-05-06] MEDS: MAGNESIUM OXIDE 400 MG TAB PO SCH (21:33)
[2025-05-07 05:20] LABS: Hematocrit (blood only) 31.6 % (37.0-47.0); Hemoglobin 10.5 g/dL (12.0-16.0); Mean Corpuscular Hemoglobin 32.8 pg (25.0-34.0); Mean Corpuscular Volume 98.8 fL (80.0-100.0); Platelet Count 212 K/uL (130-400); RDW Standard Deviation 67.1 fL (36.4-46.3); Red Blood Count 3.20 M/uL (4.20-5.40); White Blood Count 4.68 K/ul (4.8-10.8)
[2025-05-07 05:38] LABS: Alanine Aminotransferase 80.0 U/L (7-52); Albumin Level 3.0 gm/dl (3.4-5.0); Alkaline Phosphatase 247.0 U/L (34-104); Anion Gap 9.0 (3-11); Bilirubin,Total 1.6 mg/dl (0.2-1.0); Blood Urea Nitrogen 34.0 mg/dl (6-23); Calcium 7.9 mg/dl (8.6-10.3); Carbon Dioxide 27.0 mmol/L (21-32); Chloride 101.0 mmol/L (98-107); Creatinine Clr Calc Pharmacy 25.6 ml/min; Glucose 121.0 mg/dl (70-99(Fasting)); Magnesium 1.9 mg/dl (1.7-2.4); Potassium 4.0 mmol/L (3.5-5.1); Sodium 137.0 mmol/L (136-145); Total Protein 5.7 gm/dl (6.0-8.3)
[2025-05-07 05:56] LABS: T4 Free Thyroxine 0.88 ng/dl (0.61-1.60)
[2025-05-07] MEDS: LEVOTHYROXINE SODIUM 150 MCG TABLET PO SCH (06:01)
[2025-05-07] MEDS: BUMETANIDE 1 MG in SYRINGE 0 ML IV SCH (08:58)
[2025-05-07] MEDS: LENALIDOMIDE PO SCH (09:00)
[2025-05-07] MEDS: ACYCLOVIR 400 MG TAB PO SCH (09:07)
--- NOTE | 2025-05-07 10:50 | Hospitalist Progress Note ---
"Date of Service May 07, 2025 Assessment & Plan (1) Acute exacerbation of CHF (congestive heart failure): (2) Transaminitis: (3) CKD (chronic kidney disease): (4) Unspecified atrial fibrillation: (5) Hypertension: (6) Acute dyspnea: Plan This is a 79 year old female with past medical history of CHF, A fib, HTN, GERD, multiple myeloma who presented to the ED on 05/06/2025 for SOB. 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 Is up ~ 8 pounds from baseline. Recently seen in cardiology office on 05/02, note reviewed. Home medications include: Bumex 1mg daily; Coreg12.5 mg BID; Digoxin 125mcg MWF; & Eliquis 5mg BID Troponin peaked at 51.4 and has since downtrended to 40.2; BNP elevated at 620 but has improved since 05/02 (889) CXR w/ stable b/l pleural effusions. Echo 03/26/2025 - EF 40-45% continue 1mg Bumex BID17 dosing, monitor I&O's, daily standing weights. Continue Carvedilol, Digoxin, Eliquis Follows w/ cardiology & CHF clinic outpatient. #Transaminitis has been having ongoing transaminitis outpatient thought to be related to amiodarone which she is no longer taking, likely congestive hepatopathy LFTs reviewed, rise in TB from 1.4 to 1.6, DB 0.5, remainder of LFTs stable when compared to previous. Recommended US to eval for ascites & transaminitis but patient denied at time of admission,will continue to monitor LFTs and reassess if they continue to rise. Consider liver workup on outpatient basis if transaminitis persists. #hypothyroidism TSH remains elevated at 13.1, Free T4 WNL, Free T3 improved from previous lab draw & is now 1.56 Continue Synthroid 150mcg dosing, rec follow up w/ endocrinology outpatient. #Chronic prednisone therapy per pt on chronic prednisone for psoriasis ? was reportedly being weaned off but CKD worsened when off prednisone per pt. Continue 5mg Prednisone HS BP normotensive, monitor and add stress dosing if needed. #Asthma Continue home inhalers stable, no wheezing. #Multiple Myeloma actively undergoing chemotherapy outpatient CBC w/ hgb of 10.9, continue to monitor. on chronic prednisone therapy, stress dose if needed. Monitor BP continue to follow w/ oncology #CKD stage 4 creatinine baseline of 2.3-2.6, within baseline (2.29) avoid nephrotoxic agents, renally dose when able follows with nephrology outpatient #Type 2 Diabetes Outpatient regimen: Trulicity - hold while inpatient. A1c 03/2025: 5.7% SSI coverage while inpatient. #HTN - normotensive, Continue Hydralazine TID. #mood disorder- Cymbalta 60mg, Remeron 7.5 qHS #GERD-Protonix 40mg daily #hypomagnesemia - mag stable at 2.3; continue magnesium oxide 400mg tablet #diarrhea - PRN cholestyramine daily DVT prophylaxis: Eliquis Code: Full Admission and Anticipated Discharge Date Admission Date: May 06, 2025 Supervising Physician Co-Signing Physician Notes The patient was not seen by me. The chart was reviewed. Case discussed with SILVANA Medley. Agree with assessment and plan Subjective Mike was seen & examined this morning. She reports that she is feeling much be tter today. Reports CP has subsided & SOB has improved. She would like to be discharged tomorrow. Physical Exam Physical Exam: General: NAD, VS: BP 115/69; P72; R14; T37.1C Resp: normal respiratory effort, lungs clear to auscultation CV: RRR, no murmur Extremities: Moves all extremities, no edema Neuro: A&O x3 Skin: intact, no lesions noted Results & Data Results & Data Vital Signs (Past 12 Hours) Vital Signs Temp Pulse Pulse Resp BP Pulse Ox O2 Del Method 05/07/25 08:40 70 05/07/25 07:37 37.0 C 70 16 127/56 L 94 Room Air 05/07/25 03:04 36.9 C 70 18 130/69 95 Room Air 05/06/25 23:45 36.6 C 71 18 116/63 97 Room Air PG Care Time/CCT Total # of Minutes Spent Total Time Spent with Patient: Total time spent is greater than 50% in coordination of care (as documented) at patient's floor/unit and/or counseling patient: Coding Level of Care Code 04328 SUB INP/OBS CARE 2/35MIN Diagnoses Acute exacerbation of CHF (congestive heart failure) I50.9 Transaminitis R74.01 CKD (chronic kidney disease) N18.9 Unspecified atrial fibrillation I48.91 Primary hypertension I10 Hypertension type: primary hypertension Acute dyspnea R06.00 (5) Hypertension Hypertension type: primary hypertension Qualified Code(s): I10 - Essential (primary) hypertension"
[2025-05-08 06:56] LABS: Anion Gap 10.0 (3-11); Blood Urea Nitrogen 32.0 mg/dl (6-23); Calcium 7.7 mg/dl (8.6-10.3); Carbon Dioxide 28.0 mmol/L (21-32); Chloride 101.0 mmol/L (98-107); Creatinine Clr Calc Pharmacy 22.8 ml/min; Glucose 117.0 mg/dl (70-99(Fasting)); Magnesium 1.9 mg/dl (1.7-2.4); Potassium 3.8 mmol/L (3.5-5.1); Sodium 139.0 mmol/L (136-145)
[2025-05-08] MEDS: FAMOTIDINE 20MG IV PUSH 20 MG/5 ML SYR IV ONE (09:52)
[2025-05-08 11:17] VITALS: BP 105/60; PULSE 78; RESP 18; TEMP 99.5; O2SAT 96
--- NOTE | 2025-05-08 11:32 | Discharge Summary ---
Discharge Summary Date of Service May 08, 2025 Principal Dx & Hospital Course #1 = Principal Diagnosis (1) Acute heart failure with mildly reduced ejection fraction (HFmrEF, 41-49%): (2) Transaminitis: (3) CKD (chronic kidney disease): (4) Unspecified atrial fibrillation: (5) Hypertension: (6) Acute dyspnea: Plan This is a 79 year old female with past medical history of CHF, A fib, HTN, GERD, multiple myeloma who presented to the ED on 05/06/2025 for SOB. 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 Is up ~ 8 pounds from baseline. Recently seen in cardiology office on 05/02, note reviewed. Home medications include: Bumex 1mg daily; Coreg12.5 mg BID; Digoxin 125mcg MWF; & Eliquis 5mg BID Troponin peaked at 51.4 and has since downtrended to 40.2; BNP elevated at 620 but has improved since 05/02 (889) CXR w/ stable b/l pleural effusions Echo 03/26/2025 - EF 40-45% Unclear dry weight; most recent cardiology note 03/29 reports 225 lb (however, may be around 88.4 kg or 194 lb based on weight at time of most recent discharge) Patient weight was 208lb on arrival -> 205 lb on discharge Advised daily weights. Patient instructed to take additional 1 mg Bumex po daily for weight > 211 lbs Resume Bumex 2 mg p.o. daily on discharge Continue Carvedilol, Digoxin, Eliquis Follow up with CHF clinic and cardiology as an outpatient #Transaminitis Has been having ongoing transaminitis outpatient thought to be related to amiodarone which she is no longer taking, likely congestive hepatopathy LFTs reviewed, rise in TB from 1.4 to 1.6, DB 0.5, remainder of LFTs stable when compared to previous. Recommended US to eval for ascites & transaminitis but patient denied at time of admission,will continue to monitor LFTs and reassess if they continue to rise. Consider liver workup on outpatient basis if transaminitis persists #Hypothyroidism TSH remains elevated at 13.1, Free T4 WNL, Free T3 improved from previous lab draw & is now 1.56 Continue Synthroid 150mcg dosing, rec follow up w/ endocrinology outpatient #Chronic prednisone therapy per pt on chronic prednisone for psoriasis ? was reportedly being weaned off but CKD worsened when off prednisone per pt. Continue 5mg Prednisone HS BP normotensive, monitor and add stress dosing if needed. #Asthma Continue home inhalers stable, no wheezing. #Multiple Myeloma actively undergoing chemotherapy outpatient CBC w/ hgb of 10.9, continue to monitor. on chronic prednisone therapy, stress dose if needed. Monitor BP continue to follow w/ oncology #CKD stage 4 creatinine baseline of 2.3-2.6, within baseline (2.29) avoid nephrotoxic agents, renally dose when able follows with nephrology outpatient #Type 2 Diabetes Outpatient regimen: Trulicity - hold while inpatient. A1c 03/2025: 5.7% SSI coverage while inpatient. #HTN - normotensive, Continue Hydralazine TID. #Mood disorder- Cymbalta 60mg, Remeron 7.5 qHS #GERD-Protonix 40mg daily #Hypomagnesemia - mag stable at 2.3; continue magnesium oxide 400mg tablet #Diarrhea - PRN cholestyramine daily Day of discharge 05/08: VSS Mrs. Vergara is in good spirits this morning. She reports no SOB at rest or with exertion. She was up out of bed last night ambulating to the bathroom without difficulty; no lightheadedness or dizziness. Her only complaint this morning is that she is having some epigastric abdominal pain/chest pain. She reports that belching helps alleviate the pain. This has been ongoing x 2 days. She describes it as a sharp pain, and that calms down after she burps. Eating makes no difference for the pain. No recent change in diet. She does watch her salt intake at home. She denies any missed doses of Bumex at home normally she takes Bumex once daily, however she reports that this was increased to twice daily around a month ago. She is unsure of her dry weight, but reports that she was around 195 at time of discharge last time. She does not measure her weight daily at home. Patient lives by herself, but does have someone, and on Tuesdays. ROS: Patient endorses epigastric/chest pain, sinus drip, dry cough, intermittent chest palpitations (whenever she develops atrial fibrillation), nausea, and abdominal bloating. Patient denies fever, chills, night sweats, dizziness/lightheadedness with ambulation, pleuritic CP, hemoptysis, abdominal pain, vomiting, diarrhea, change in urinary/bowel habits, burning with urination, blood in the urine or stool, or swelling/pain in the legs. Disposition: Discharge home Notes For Next Care Provider Patient hospitalized for acute CHF exacerbation. Recurrent hospitalizations for similar. Her shortness of breath improved over the course of her hospital stay. Discharged on Bumex 2 mg daily (as before), with recommendations to take an additional 1 mg tablet if her weight is greater than 211. Recommend patient follow-up with the CHF clinic as an outpatient. While free T3 is improved from prior, recommend that patient follow-up with endocrinology/adjust levothyroxine dosage if levels do not stabilize. Admission HPI Per Admitting Provider This is a 79 year old female with past medical history of CHF, A fib, HTN, GERD, multiple myeloma who presented to the ED on 05/06/2025 for SOB. Mike was seen & examined this evening. She states that she has had ongoing shortness of breath and weight gain outpatient. She was recently seen by cardiology on 05/02 who ordered labs and recommended she take an additional dose of Bumex for 3 days in a row. She was able to lose ~ 8 of the 14 pounds that she had gained but she still persists with SOB and has had LE edema as well. Reports dyspnea on exertion & CP on exertion/deep inspiration. Reports she feels that she has fluid in her abdomen but refused an ultrasound at encounter. denies abdominal pain, nausea, vomiting, changes in bowels/bladder. does not want a jim catheter this admission if possible. while in the ED, she underwent a workup consistent with an acute exacerbation of her CHF. CXR is still pending but review of CXR from 05/02 reveals b/l pleural effusion R > L & congestion. CBC w/ hgb of 10.9, no leukocytosis/thrombocytopenia. INR elevated at 1.5 but is on chronic Eliquis therapy. Electrolytes stable, renal function w/ creatinine of 2.32 which is within her baseline of 2.3-2.6. Troponin was elevated at 49 which has increased from where it was 43.3. BNP elevated at 620 but improved from 3 days ago. She does have stable transaminitis w/ a TB of 1.4, AST/ALT 95/83 and alk phos of 260 which appear similar to previous. She was given 324 mg of ASA & 1mg IV Bumex. Code discussion did take place & she does confirm she is a full code. Admission Exam Per Admitting Provider General: NAD, VS: BP 120/73; P78; R14; T36.8C Resp: normal respiratory effort, lungs diminshed w/ rhonchi CV: RRR, no murmur, Abd: normal bowel sounds, non tender, soft Extremities: Moves all extremities, 1+ edema in b/l LE Neuro: A&O x3 Skin: intact, skin tear noted on RLE without erythema or exudate. appeared noninfectious Discharge Exam General: no acute distress; pleasant affect; non-toxic appearing; cooperative; SpO2 96% on RA HEENT: normocephalic, atraumatic; PERRLA; vision and hearing intact Neck: supple; trachea midline Skin: warm, dry without signs of tenting; no cyanosis; no rashes, bruising, lesions, or erythema noted CV: chest wall NTP; RRR; S1/S2 normal; no murmurs/rubs/gallops; pulses intact and symmetric at radial, DP, and PT Lungs: no acute respiratory distress; symmetrical chest wall expansion; clear breath sounds across all lung osman w/o adventitious sounds; no wheezing ABD: Soft, NTP; BS present; no rebound/guarding; no distention MSK: no tics or fasciculations; no edema noted in the LEs b/l, nonerythematous (JAQUELINE stockings in place, however nonpitting when removed) Neuro: A&Ox3; normal mood and affect; fluent speech; sensation intact and symmetric in the LEs b/l Gait: Patient is able to stand up independently in the bed and ambulate using her walker to the bathroom without difficulty Discharge Plan Discharge Items Patient Disposition: Home - Self-Care Reason For Visit: SOB Discharge Diagnosis: Acute HFrEF Condition on Discharge: Fair Activity: Resume your previous activity Non-emergency contact: Primary Care Provider and 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 On arrival, your workup was consistent with an acute heart failure exacerbation. You also reported that you are about 8 pounds above your baseline on arrival. You received IV diuretics while in the hospital, and your weight decreased while in the hospital. You reported full resolution of your shortness of breath, and denied any trouble breathing with exertion while ambul ating throughout the room. Given your vitals are currently stable, and you report resolution of your symptoms, we feel that you are safe to return home at this time with close heart failure follow-up. We recommend you follow-up with the heart failure clinic as an outpatient. New prescriptions on discharge: Famotidine 20 mg tablet in the morning as needed for heartburn Upon discharge, you may resume your previous medications as they were prior to hospitalization. Take Bumex 2 mg in the morning. Your weight is currently 205 lb at time of discharge. It is recommended that you measure your weight daily. If your weight increases to greater than 211 lb, it is recommended that you take an additional Bumex 1 mg daily. Please plan to follow-up with your PCP in the next 7 to 10 days for a transitional care appointment. If you develop any new or worsening symptoms, such as fever, chills, difficulty walking, leg swelling, trouble breathing at rest, trouble breathing with exertion, chest pain, chest palpitations, or fainting spells, please return to the emergency department immediately. It was a pleasure taking care of you. Please reach out with any questions or concerns. Sincerely, The Hospital medicine team at [facility] Pending Studies at Discharge: No Stand-Alone Forms: My [facility] Medications and DC Order Prescriptions: New famotidine 20 mg tablet 20 mg PO DAILY Qty: 14 0RF Rx Instructions: Take 1 tablet by mouth daily Continued (DME) Hospital Bed Misc See Rx Instructions .Route Qty: 1 0RF Rx Instructions: Semi-electric hospital bed with mattress and side rails (DME) Accu-Chek Garima Plus test strp Strip See Rx Instructions .ROUTE .MEDSUPPLY Qty: 100 3RF Rx Instructions: Check blood sugars once PRN azelastine 137 mcg (0.1 %) aerosol,spray 2 spray INTRANASAL DAILY PRN (Reason: ALLERGIES) Qty: 30 0RF (DME) FreeStyle Rafa 3 Plus Sensor Device See Rx Instructions .Route Qty: 2 11RF Rx Instructions: Change sensor every 15 days potassium chloride [Klor-Con M20] 20 mEq tablet,ER particles/crystals 20 meq PO AMHS 90 Days Qty: 180 3RF duloxetine [Cymbalta] 60 mg capsule,delayed release(DR/EC) 60 mg PO QAM Qty: 90 3RF fluticasone furoate-vilanterol [Breo Ellipta] 100-25 mcg/dose blister with device 1 inh inhalation DAILY Qty: 60 2RF Trulicity 1.5 mg/0.5 mL pen injector 1.5 mg subcut WK Qty: 2 3RF Rx Instructions: Inject 1.5 mg into the abdomen once weekly. (DME) pen needle, diabetic 32 gauge x 5/32" needle See Rx Instructions .Route Qty: 100 11RF Rx Instructions: use for injections 3x daily, change with each use Eliquis 5 mg tablet 5 mg PO BID Qty: 180 3RF acyclovir 400 mg tablet 400 mg PO BID (DME) blood-glucose meter [Accu-Chek Garima Plus Meter] [facility] See Rx Instructions .ROUTE .MEDSUPPLY Rx Instructions: Used to check blood sugars once PRN dexamethasone 4 mg tablet 4 mg PO DIRECTED PRN (Reason: APPOINTMENTS) Rx Instructions: ONCE MONTHLY WITH INJECTIONS amoxicillin 500 mg capsule 1,000 mg PO ONCE PRN (Reason: prior to dental work) Qty: 2 3RF digoxin 125 mcg (0.125 mg) tablet 125 mcg PO .MWF Qty: 90 3RF pantoprazole 40 mg tablet,delayed release (DR/EC) 40 mg PO DAILY Qty: 90 3RF PreserVision AREDS 4,296 mcg-226 mg-90 mg capsule 1 cap PO BID albuterol sulfate 90 mcg/actuation HFA aerosol inhaler 2 inh inhalation Q4H PRN (Reason: shortness of breath or wheezing) Qty: 8.5 0RF omega 6-vcd-eir-fish oil [Fish Oil] 1,000 mg (120 mg-180 mg) Capsule 1,000 mg PO AMHS magnesium oxide 400 mg magnesium Tablet 400 mg PO AMHS acetaminophen [Tylenol Arthritis Pain] 650 mg Tablet Extended Release 1,300 mg PO AMHS mirtazapine 7.5 mg tablet 7.5 mg PO HS ferrous sulfate 325 mg (65 mg iron) tablet 325 mg PO QAM PRN (Reason: Other) albuterol sulfate 2.5 mg /3 mL (0.083 %) Solution For Nebulization 2.5 mg INHALATION Q4H PRN (Reason: Wheezing) cholestyramine (with sugar) [Questran] 4 gram powder 1 ea PO BID PRN (Reason: Diarrhea) Rx Instructions: 4 gm doses ondansetron 4 mg Tablet,Disintegrating 4 mg PO Q6 PRN (Reason: chemo associated n/v) lenalidomide [Revlimid] 10 mg capsule 10 mg PO UD Rx Instructions: takes 3 weeks, off 1 week carvedilol 12.5 mg Tablet 12.5 mg PO BIDM 30 Days Qty: 60 1RF levothyroxine [Synthroid] 150 mcg Tablet 150 mcg PO DAILYBB 30 Days Qty: 30 1RF bumetanide 1 mg Tablet 2 mg PO QAM 30 Days Qty: 60 1RF hydralazine 50 mg Tablet 50 mg PO TID 30 Days Qty: 90 1RF calcium carbonate-vitamin D3 600 mg-10 mcg (400 unit) tablet 1 tab PO BID prednisone 5 mg tablet 5 mg PO PM triamcinolone acetonide 0.1 % cream 1 applic topical BID PRN (Reason: otjer) Discharge Orders: Discharge Order (Routine); Ordered 05/08/25 Ordered By: Juno Sparks Admission Data Admit Date/Time: 05/06/25 17:38 Attending Provider: Hunter Alaniz Admit Provider: Irineo Funk Primary Care Provider: Jigna Jovel Other Providers: Irineo Funk; Chaya Guzmán Other Interventions: Discharge Summary Assessment (RN) Last Done: 05/08/25 13:21 Hospital Stay Data Consultations 05/06/25 17:26 ED Decision to Admit Stat Discharge Instructions Given to Patient (Per Discharging Provider) You were hospitalized at [facility] from 05/06 to 05/08 for shortness of breath. On arrival, your workup was consistent with an acute heart failure exacerbation. You also reported that you are about 8 pounds above your baseline on arrival. You received IV diuretics while in the hospital, and your weight decreased while in the hospital. You reported full resolution of your shortness of breath, and denied any trouble breathing with exertion while ambulating throughout the room. Given your vitals are currently stable, and you report resolution of your symptoms, we feel that you are safe to return home at this time with close heart failure follow-up. We recommend you follow-up with the heart failure clinic as an outpatient. New prescriptions on discharge: Famotidine 20 mg tablet in the morning as needed for heartburn Upon discharge, you may resume your previous medications as they were prior to hospitalization. Take Bumex 2 mg in the morning. Your weight is currently 205 lb at time of discharge. It is recommended that you measure your weight daily. If your weight increases to greater than 211 lb, it is recommended that you take an additional Bumex 1 mg daily. Please plan to follow-up with your PCP in the next 7 to 10 days for a transitional care appointment. If you develop any new or worsening symptoms, such as fever, chills, difficulty walking, leg swelling, trouble breathing at rest, trouble breathing with exertion, chest pain, chest palpitations, or fainting spells, please return to the emergency department immediately. It was a pleasure taking care of you. Please reach out with any questions or concerns. Sincerely, The Hospital medicine team at [facility] Total Time Total Time Spent Total Time Spent (In Minutes): 35 Coding Level of Care Code 82634 INP/OBS DISCH >30 MIN Diagnoses Acute heart failure with mildly reduced ejection fraction (HFmrEF, 41-49%) I50.21 Transaminitis R74.01 CKD (chronic kidney disease) N18.9 Unspecified atrial fibrillation I48.91 Primary hypertension I10 Hypertension type: primary hypertension Acute dyspnea R06.00
[2025-05-08] MEDS ORDERED: DIGOXIN 0.125 MG TAB PO SCH (16:00)
== END 2025-05-08 15:14 | disposition home or self-care (01) | DRG 291 ==
LOC: SUATTDRO → ED 15:46 → SUATTDRO 17:38 → 4W 17:38